=== PATIENT | male | born 1940 | race Caucasian/White ===

== ENCOUNTER 2017-10-09 08:40 | Emergency (ER) | payer OTHER ==
[2017-10-09 09:36] LABS: Hematocrit 29.4 % (39.6-49.0); MCH 28.5 pg (27.0-35.0); MCV 89.3 fL (80-100); MPV 8.7 fL (7.6-11.3); RBC Red Blood Cell Count 3.29 M/uL (4.33-5.43)
[2017-10-09 09:38] LABS: Protime INR 1.39
[2017-10-09 09:42] LABS: Urine Appearance CLEAR; Urine Bilirubin NEGATIVE (NEG); Urine Blood 3+ (NEG); Urine Color YELLOW; Urine Glucose 2+ (NEG); Urine Protein TRACE (NEG); Urine Specific Gravity 1.015 (1.005-1.030); Urine pH 7.5 (5.0-7.0)
[2017-10-09 09:47] LABS: Urine Microscopic Reflex ORDER UMIC
[2017-10-09 09:59] LABS: Urine RBC >50 /HPF (NONE SEEN)
[2017-10-09 10:00] LABS: Urine Bacteria NONE SEEN /HPF (NONE SEEN)
[2017-10-09 10:01] LABS: Urine Culture Reflex Order NOT NEEDED
--- NOTE | 2017-10-09 10:09 | ER ---
Nurse's Notes [facility] Name: Jean Lucio III Age: 77 yrs Sex: Male : 1940 Arrival Date: 10/09/2017 Time: 08:43 Bed 16 Private MD: Diagnosis: Hematuria, unspecified Presentation: 10/09 08:44 Presenting complaint: Patient states: blood in urine, ferguson in place. Started yesterday tl3 afternoon. Ferguson in place fore two weeks. Transition of care: patient was not received from another setting of care. Onset of symptoms was October 08, 2017 at 20:00. 08:44 Method Of Arrival: Ambulatory tl3 08:44 Acuity: RITA 3 tl3 09:00 Care prior to arrival: None. em Triage Assessment: 08:51 General: Appears in no apparent distress. slender, well groomed, well developed, tl3 Behavior is calm, cooperative, appropriate for age. Pain: Denies pain. Historical: - Allergies: 08:49 No Known Allergies; tl3 - Home Meds: 08:49 Lasix 40 mg Oral tab 1 tab 2 times per day [Active]; tamsulosin 0.4 mg oral cp24 1 cap tl3 once daily [Active]; potassium chloride 10 mEq Oral cpER 1 cap once daily [Active]; spironolactone 25 mg Oral tab 1 tab once daily [Active]; cefdinir 300 mg oral cap 1 cap every 12 hours [Active]; lisinopril 2.5 mg oral tab 1 tab once daily [Active]; carvedilol 3.125 mg oral tab 1 tab 2 times per day [Active]; - PMHx: 08:49 Hypertension; Hyperlipidemia; diagnosed with cancer at [place], did not seek treatment; tl3 - Immunization history:: Adult Immunizations up to date. - Social history:: Patient/guardian denies using alcohol, street drugs, The patient lives with family, Smoking status: Patient/guardian denies using tobacco. Screenin:17 Abuse screen: Denies threats or abuse. Nutritional screening: No deficits noted. em Tuberculosis screening: No symptoms or risk factors identified. Fall Risk None identified. Assessment: 09:00 General: Appears in no apparent distress. comfortable, Behavior is calm, cooperative. em Pain: Denies pain. Neuro: Level of Consciousness is awake, alert, obeys commands, Oriented to person, place, time, situation. Cardiovascular: Capillary refill < 3 seconds Patient's skin is warm and dry. Respiratory: Airway is patent Respiratory effort is even, unlabored, Respiratory pattern is regular, symmetrical. GI: Abdomen is round Patient currently denies nausea, vomiting. : Ferguson in place to gravity drainage blood tinged urine noted in ferguson Urine is blood tinged, Genitalia appear normal Reports blood in urine started yesterday, denies pain. EENT: No signs and/or symptoms were reported regarding the EENT system. Derm: Skin is intact, is fragile, Skin is pink, warm \T\ dry. Musculoskeletal: Range of motion: intact in all extremities. 09:01 Reassessment: i agree with the assessment of JERRY Maldonado;. 09:48 Reassessment: Patient appears in no apparent distress at this time. Patient and/or em family updated on plan of care and expected duration. Pain level reassessed. Patient is alert, oriented x 3, equal unlabored respirations, skin warm/dry/pink. Patient states symptoms have improved. Vital Signs: 08:49 BP 151 / 65; Pulse 80; Resp 17; Temp 97.7; Pulse Ox 99% ; tl3 ED Course: 08:43 Patient arrived in ED. rg4 08:45 Triage completed. tl3 08:52 Darren Trujillo MD is Attending Physician. ma2 09:00 Patient has correct armband on for positive identification. Bed in low position. Call em light in reach. Side rails up X2. 09:00 Arm band placed on. em 09:10 Initial lab(s) drawn, by tx, sent to lab. Inserted saline lock: 20 gauge in right em antecubital area, using aseptic technique. Blood collected. 09:48 Joel Horvath LVN is Primary Nurse. em 10:04 Primary Nurse role handed off by Joel Horvath LVN jl7 10:04 Nicole Zuñiga RN is Primary Nurse. jl7 10:24 No provider procedures requiring assistance completed. IV discontinued, intact, jl7 bleeding controlled, No redness/swelling at site. Pressure dressing applied. Administered Medications: No medications were administered Outcome: 10:08 Discharge ordered by . ma2 10:24 Discharged to home ambulatory. jl7 10:24 Condition: stable 10:24 Discharge instructions given to patient, Instructed on discharge instructions, follow up and referral plans. Demonstrated understanding of instructions, follow-up care. 10:26 Patient left the ED. jl7 Signatures: Joel Horvath, JERRY HERNDONN Femi Perera, RN RN Laury Sims rg4 Nicole Zuñiga RN RN jl7 Darren Trujillo MD MD ma2 Vane Watts RN RN tl3
--- NOTE | 2017-10-09 10:09 | EDPHYS ---
Physician Documentation [facility] Name: Jean Lucio III Age: 77 yrs Sex: Male : 1940 Arrival Date: 10/09/2017 Time: 08:43 Bed 16 Private MD: ED Physician Darren Trujillo HPI: 10/09 09:05 This 77 yrs old Male presents to ER via Ambulatory with complaints of BLOOD ma2 IN URINE. 09:05 The patient presents with had urinary retention 2 wks ago s/p ferguson here with hematuria ma2 x 2 days, no other symptoms hx of liver ca, has appointment scheduled to see urologist in 1 week, on flomax . Onset: The symptoms/episode began/occurred gradually, 1 day(s) ago. Associated signs and symptoms: Pertinent negatives: abdominal pain, constipation, dysuria, fever, nausea, vomiting. Severity of symptoms: At their worst the symptoms were moderate, in the emergency department the symptoms have improved, color got chaplain . The patient has not experienced similar symptoms in the past. Historical: - Allergies: 08:49 No Known Allergies; tl3 - Home Meds: 08:49 Lasix 40 mg Oral tab 1 tab 2 times per day [Active]; tamsulosin 0.4 mg oral cp24 1 cap tl3 once daily [Active]; potassium chloride 10 mEq Oral cpER 1 cap once daily [Active]; spironolactone 25 mg Oral tab 1 tab once daily [Active]; cefdinir 300 mg oral cap 1 cap every 12 hours [Active]; lisinopril 2.5 mg oral tab 1 tab once daily [Active]; carvedilol 3.125 mg oral tab 1 tab 2 times per day [Active]; - PMHx: 08:49 Hypertension; Hyperlipidemia; diagnosed with cancer at [place], did not seek treatment; tl3 - Immunization history:: Adult Immunizations up to date. - Social history:: Patient/guardian denies using alcohol, street drugs, The patient lives with family, Smoking status: Patient/guardian denies using tobacco. ROS: 09:05 Constitutional: Negative for fever, chills, and weight loss, ENT: Negative for injury, ma2 pain, and discharge, Neck: Negative for injury, pain, and swelling, Cardiovascular: Negative for chest pain, palpitations, and edema, Respiratory: Negative for shortness of breath, cough, wheezing, and pleuritic chest pain, Abdomen/GI: Negative for abdominal pain, nausea, diarrhea, and constipation, Back: Negative for injury and pain, MS/Extremity: Negative for injury and deformity, Skin: Negative for injury, rash, and discoloration, Neuro: Negative for headache, weakness, numbness, tingling, and seizure, Psych: Negative for depression, anxiety, suicide ideation, homicidal ideation, and hallucinations, Endocrine: Negative for neck swelling, polydipsia, polyuria, polyphagia, and marked weight changes. Exam: 09:05 Constitutional: This is a well developed, well nourished patient who is awake, alert, ma2 and in no acute distress. Head/Face: Normocephalic, atraumatic. Chest/axilla: Normal chest wall appearance and motion. Nontender with no deformity. No lesions are appreciated. Cardiovascular: Regular rate and rhythm with a normal S1 and S2. No gallops, murmurs, or rubs. Normal PMI, no JVD. No pulse deficits. Respiratory: Lungs have equal breath sounds bilaterally, clear to auscultation and percussion. No rales, rhonchi or wheezes noted. No increased work of breathing, no retractions or nasal flaring. Abdomen/GI: Soft, non-tender, with normal bowel sounds. No distension or tympany. No guarding or rebound. No evidence of tenderness throughout. 09:05 : Exam negative for dysuria, discharge, bladder tenderness, bladder distension, CVA tenderness, is absent, Bladder: ferguson in place, no penile abnormality, bag with light red urine . Vital Signs: 08:49 BP 151 / 65; Pulse 80; Resp 17; Temp 97.7; Pulse Ox 99% ; tl3 MDM: 08:52 Patient medically screened. ma2 09:05 Differential diagnosis: UTI, Ferguson catheter problem, urethritis, bleeding diathesis. ma2 10:06 Data reviewed: vital signs, nurses notes, EMS record, lab test result(s), EKG. ma2 Counseling: I had a detailed discussion with the patient and/or guardian regarding: the historical points, exam findings, and any diagnostic results supporting the discharge/admit diagnosis, the presence of at least one elevated blood pressure reading (>120/80) during this emergency department visit, lab results, the need for outpatient follow up. ED course: urine cleared up now, normal yellow color, no UTI, HB 9, VS wnl, coags non critical not on blood thinner will f/u with urologist in 2 days and pcp in 1 day . 10/09 09:01 Order name: UA [facility] 10/09 09:01 Order name: CBC w/o diff [facility] 10/09 09:01 Order name: Protime (+inr) [facility] 10/09 09:01 Order name: Ptt, Activated [facility] 10/09 09:09 Order name: Urine Dipstick--Ancillary (enter results) 10/09 09:38 Order name: CBC without Diff; Complete Time: 09:54 [facility] 10/09 09:39 Order name: Protime (+INR); Complete Time: 09:54 [facility] 10/09 09:39 Order name: PTT, Activated Partial Thromb; Complete Time: 09:54 [facility] 10/09 09:47 Order name: Urinalysis [facility] 10/09 10:01 Order name: Urine Microscopic Only [facility] Administered Medications: No medications were administered Disposition: 10/09/17 10:08 Discharged to Home. Impression: Hematuria, unspecified. - Condition is Stable. - Discharge Instructions: Hematuria, Adult. - Medication Reconciliation Form, Thank You Letter, Antibiotic Education, Prescription Opioid Use form. - Follow up: Private Physician; When: Tomorrow; Reason: Continuance of care. - Problem is new. - Symptoms are resolved. Signatures: Dispatcher [employer] [facility] Joel Horvath, AD TERMINAL MAKEUP OPERATOR AD TERMINAL MAKEUP OPERATOR Nicole Guerra, RN RN jl7 Darren Trujillo MD MD ma2 Vane Watts, RN RN tl3
[2017-10-09 10:32] VITALS: BP 151/65; TEMP 97.7; O2SAT 99
[2017-10-09 10:56] LABS: Urine Blood 3+ (NEG); Urine Glucose NEGATIVE (NEG); Urine Protein 1+ (NEG); Urine Specific Gravity 1.015 (1.005-1.030); Urine pH 7.5 (5.0-7.0)
== END 2017-10-09 10:26 | disposition home or self-care (01) ==
LOC: EDBD → ER 08:40
DX: R31.9 Hematuria, unspecified (principal); I10 Essential (primary) hypertension; E78.5 Hyperlipidemia, unspecified; Z85.05 Personal history of malignant neoplasm of liver
CPT/HCPCS: 36415; 81003; 81015; 85027; 85610; 85730; 99283

== ENCOUNTER 2017-11-04 10:49 | Inpatient (IN) | payer OTHER ==
[2017-11-04] MEDS ORDERED: LEVALBUTEROL 1.25 MG/3 ML NEB ONE (11:28)
[2017-11-04] MEDS ORDERED: ACETAMINOPHEN 500 MG TAB ONE (11:29)
[2017-11-04 11:57] LABS: Absolute Lymphocytes (CBC) 1.8 K/uL (0.7-4.9); Absolute Monocytes 2.9 K/uL (0.1-1.3); Absolute Neutrophil 8.8 K/uL (1.8-8.0); Basophils % 0.3 % (0-1.3); Eosinophils % 0.4 % (0-4.4); Hematocrit 26.8 % (39.6-49.0); Lymphocytes % 12.9 % (15.3-44.8); MCH 25.1 pg (27.0-35.0); MCV 83.2 fL (80-100); MPV 8.6 fL (7.6-11.3); Monocytes % 21.5 % (3.3-12.3); RBC Red Blood Cell Count 3.23 M/uL (4.33-5.43)
[2017-11-04 12:00] LABS: Protime INR 1.53
[2017-11-04 12:14] LABS: Bicarbonate 20 mEq/L (21-31); Glucose Level 361 mg/dL (65-120); Lipase 38 U/L (22-51); Potassium 4.3 mEq/L (3.6-5.0); Sodium Level 127 mEq/L (135-145)
[2017-11-04 12:20] LABS: ALT/SGPT 37 IU/L (10-60); AST/SGOT 60 IU/L (10-42); Albumin 3.2 g/dL (3.2-5.5); Alkaline Phosphatase 104 IU/L (42-121); BUN Blood Urea Nitrogen 10 mg/dL (6-20); Bilirubin Direct 0.5 mg/dL (0-0.2); Bilirubin Total 2.2 mg/dL (0.3-1.2); Creatine Phosphokinase 34 IU/L (22-269); Magnesium 1.5 mg/dL (1.8-2.5)
[2017-11-04] MEDS ORDERED: NA CHLORIDE 0.9% 1,000 ML ONE (12:34)
[2017-11-04] MEDS ORDERED: ASPIRIN 81 MG CHEWABLE TABLET ONE (12:34)
[2017-11-04 12:47] LABS: Anisocytosis 1+; Blood Morphology Comment NOTED (NOT SEEN); Hypochromasia 1+; Macrocytosis SLIGHT; Platelet Estimate ADEQ
--- NOTE | 2017-11-04 13:24 | EKG ---
Test Date: 2017-11-04 Test Time: 11:30:21 Underwriting Director: BJ MEASUREMENT RESULTS: Intervals: Rate: 94 MA: 176 QRSD: 92 QT: 358 QTc: 447 [place]: P: 43 MA: 176 QRS: 46 T: 55 INTERPRETIVE STATEMENTS: Normal sinus rhythm Nonspecific ST abnormality Abnormal ECG Compared to ECG 09/18/2017 06:17:24 Sinus tachycardia no longer present ST (T wave) deviation still present Electronically Signed On 11-04-17 13:24:30 CDT by Tristian Pabon
--- NOTE | 2017-11-04 13:31 | RAD REPORT ---
EXAM DESCRIPTION: Marvint Pa And Lat (2 Views)11/04/2017 1:23 pm CLINICAL HISTORY: Cough COMPARISON: August 2017 FINDINGS: Mild bilateral interstitial lung opacities are suspected. The heart is normal size IMPRESSION: Mild interstitial lung opacities may represent interstitial pulmonary edema
--- NOTE | 2017-11-04 14:15 | RAD REPORT ---
EXAM DESCRIPTION: 111 - Thorax W/ Con - 11/04/2017 2:03 pm CLINICAL HISTORY: Cough and shortness of breath TECHNIQUE: Computed axial tomography of the chest was obtained. 100 cc Isovue 300 was administered i ntravenously. All CT scans are performed using dose optimization technique as appropriate and may include automated exposure control or mA/KV adjustment according to patient size. FINDINGS: Mild to moderate reticular interstitial opacities are present within the lungs bilaterally . Mild patchy alveolar opacities present within the left lower lobe. No mediastinal or hilar lymphadenopathy is seen. A pleural effusion is not present. A pericardial effusion is not seen. The wall of the esophagus appears thickened. A cirrhotic liver is seen. A vague hypodensity is present within the dome of the liver measuring 20 m illimeters. Varices are present within the upper abdomen IMPRESSION: Mild to moderate bilateral pulmonary opacities probably represent pneumonia. This could be viral or atypical. Cirrhosis. 20 millimeter vague hypodensity within the dome of the liver. Further evaluation with MRI could be obtained Thickening of the wall of the esophagus may be secondary to inflammation
--- NOTE | 2017-11-04 14:15 | ER ---
Nurse's Notes [facility] Name: Jean Lucio III Age: 77 yrs Sex: Male : 1940 Arrival Date: 11/04/2017 Time: 10:50 Bed 2 Private MD: Colin Garcia E Diagnosis: acute shortness of breath;dizziness;chest pain;Bilateral Interstitial Pneumonia Presentation: 11/04 11:05 Presenting complaint: Patient states: " I've been feeling dizzy for about a month, my home health nurse says that my oxygen drops when I stand up. I'm just tired of feeling dizzy." Pt reports vomiting yesterday, denies pain or fever. Reports feeling dizzy and SOB, Spo2 94% RA. Transition of care: patient was not received from another setting of care. Onset of symptoms was November 04, 2017. Care prior to arrival: None. 11:05 Method Of Arrival: Ambulatory 11:05 Acuity: RITA 3 ph Historical: - Allergies: 11:08 No Known Allergies; ph - Home Meds: 11:08 carvedilol 3.125 mg Oral tab 1 tab 2 times per day [Active]; cefdinir 300 mg Oral cap 1 ph cap every 12 hours [Active]; Lasix 40 mg Oral tab 1 tab 2 times per day [Active]; lisinopril 2.5 mg Oral tab 1 tab once daily [Active]; potassium chloride 10 mEq Oral cpER 1 cap once daily [Active]; spironolactone 25 mg Oral tab 1 tab once daily [Active]; tamsulosin 0.4 mg Oral cp24 1 cap once daily [Active]; - PMHx: 11:08 diagnosed with cancer at [place], did not seek treatment; Hyperlipidemia; Hypertension; ph Myocardial infarction; - Social history:: Smoking status: Patient uses tobacco products, 1 cigarette per day. - Family history:: not pertinent. - Hospitalizations: : No recent hospitalization is reported. Screenin:20 Abuse screen: Denies threats or abuse. Denies injuries from another. Nutritional sv screening: No deficits noted. Tuberculosis screening: No symptoms or risk factors identified. Fall Risk None identified. Assessment: 11:20 General: Appears in no apparent distress. uncomfortable, slender, Behavior is calm, sv cooperative, appropriate for age. Pain: Denies pain. Neuro: Level of Consciousness is awake, alert, obeys commands, Oriented to person, place, time, situation, Moves all extremities. Full function Gait is steady, Speech is normal. Neuro: Reports dizziness, weakness. Cardiovascular: Patient's skin is warm and dry. Pulses are 3+ in right radial artery and left radial artery Rhythm is sinus rhythm. Respiratory: Reports shortness of breath at rest since a month Airway is patent Respiratory effort is even, labored, Respiratory pattern is tachypnea. Derm: Skin is normal. 12:39 Reassessment: Patient appears in no apparent distress at this time. No changes from sv previously documented assessment. Patient and/or family updated on plan of care and expected duration. Pain level reassessed. Patient is alert, oriented x 3, equal unlabored respirations, skin warm/dry/pink. 13:30 Reassessment: Patient appears in no apparent distress at this time. Patient and/or sv family updated on plan of care and expected duration. Pain level reassessed. Patient is alert, oriented x 3, equal unlabored respirations, skin warm/dry/pink. 15:05 Reassessment: Patient appears in no apparent distress at this time. Patient and/or sv family updated on plan of care and expected duration. Pain level reassessed. Patient is alert, oriented x 3, equal unlabored respirations, skin warm/dry/pink. 15:31 Reassessment: cvt techJoann garcia at the bedside. sv Vital Signs: 11:09 BP 145 / 57; Pulse 103; Resp 22; Temp 99.4(O); Pulse Ox 94% on R/A; Weight 73.94 kg; ph Height 5 ft. 11 in. (180.34 cm); 11:20 Pulse Ox 97% on R/A; sv 11:55 BP 133 / 56; Pulse 94; Resp 28; Pulse Ox 96% on 2 lpm NC; sv 12:39 BP 132 / 46; Pulse 90; Resp 20; Pulse Ox 96% on 2 lpm NC; sv 13:54 BP 137 / 49; Pulse 88; Resp 19; Pulse Ox 96% on 2 lpm NC; jb1 15:09 BP 149 / 57; Pulse 74; Resp 18; Pulse Ox 98% on 2 lpm NC; sv 15:44 BP 127 / 47; Pulse 75; Resp 18; Pulse Ox 100% on 2 lpm NC; sv 11:09 Body Mass Index 22.73 (73.94 kg, 180.34 cm) ph ED Course: 10:50 Patient arrived in ED. as 10:51 Colin Garcia MD is Private Physician. as 11:07 Triage completed. ph 11:09 Arm band placed on. ph 11:13 Colin Fulton MD is Attending Physician. wa 11:20 Patient has correct armband on for positive identification. Placed in gown. Bed in low sv position. Call light in reach. property assessment monitor on. Pulse ox on. NIBP on. Door closed. Head of bed elevated. 11:21 June Florence, RN is Primary Nurse. sv 11:21 Oxygen administration via nasal cannula \\T\\ 2L/min. sv 11:41 EKG done, by information technology associate. reviewed by Colin Fulton MD. at1 13:07 Patient moved to radiology via stretcher. jb2 13:15 X-ray completed. Patient tolerated procedure well. Patient moved back from radiology. jb2 13:15 Chest Pa And Lat (2 Views) XRAY In Process Unspecified. EDMS 13:57 CT completed. Patient tolerated procedure well. Patient moved to CT via stretcher. Patient moved back from CT. 14:03 CT Chest W/ Con In Process Unspecified. EDMS 14:13 Phani Garcia DO is Hospitalizing Provider. wa 14:33 Abdomen In Process Unspecified. EDMS 15:05 Initial lab(s) drawn, by sc, sent to lab. sv 16:00 No provider procedures requiring assistance completed. Patient admitted, IV remains in sv place. intact. Administered Medications: 11:34 Drug: Tylenol 1000 mg Route: PO; sv 12:38 Follow up: Response: No adverse reaction sv 11:35 Drug: Xopenex 1.25 mg Route: Inhalation; sv 12:38 Drug: Aspirin Chewable Tablet 324 mg Route: PO; sv 14:14 Follow up: Response: No adverse reaction ss 12:38 Drug: NS 0.9% 1000 ml Route: IV; Rate: 1 bolus; Site: right antecubital; sv 13:45 Follow up: Response: No adverse reaction; IV Status: Completed infusion; IV Intake: sv 1000ml 14:38 Drug: Rocephin - (cefTRIAXone) 2 grams {Note: given IVP per pharmacy .} Route: IVPB; sv Infused Over: 30 mins; Site: right antecubital; 14:49 Follow up: Response: No adverse reaction; IV Status: Completed infusion; IV Intake: 20mlsv 14:48 Drug: Zithromax 500 mg Route: IVPB; Infused Over: 1 hrs; Site: right antecubital; sv Intake: 13:45 IV: 1000ml; Total: 1000ml. sv 14:49 IV: 20ml; Total: 1020ml. sv Outcome: 14:13 Decision to Hospitalize by Provider. wa 16:00 Admitted to Tele accompanied by tech, via stretcher, room 214, with oxygen, with chart, sv Report called to Femi BURGESS 16:00 Condition: stable 16:00 Instructed on the need for admit. 16:17 Patient left the ED. sv Signatures: Dispatcher [employer] Filipe Wagner1 June Florence RN RN Silvio Yip2 Milly Carlson Amelia as Smirch, Shelby, RN RN Koki germain, technical agronomist EKG Tat1 Anisa Martell RN RN Colin Fulton MD MD wa Corrections: (The following items were deleted from the chart) 14:49 14:38 Rocephin - (cefTRIAXone) 2 grams IVPB in right antecubital over 30 mins sv sv
--- NOTE | 2017-11-04 14:15 | EDPHYS ---
Physician Documentation [facility] Name: Jean Lucio III Age: 77 yrs Sex: Male : 1940 Arrival Date: 11/04/2017 Time: 10:50 Bed 2 Private MD: Colin Garcia E ED Physician Colin Fulton HPI: 11/04 11:31 This 77 yrs old Male presents to ER via Ambulatory with complaints of wa Shortness Of Breath, Dizziness. 11:31 The patient has shortness of breath at rest. Onset: The symptoms/episode began/occurred wa 1 month(s) ago, worsening. also c/o dizziness when gets up. coughing. no sputum. admits to possible mild fever. c/o weight loss of 40 lbs the past few yrs. Duration: The symptoms are continuous, and are steadily getting worse. The patient's shortness of breath is aggravated by nothing, is alleviated by nothing. Associated signs and symptoms: Pertinent positives: non-productive cough, dizziness, fever, Pertinent negatives: chest pain, numbness in extremities, vomiting. Severity of symptoms: At their worst the symptoms were moderate in the emergency department the symptoms are worse. The patient has not experienced similar symptoms in the past. The patient has not recently seen a physician. states told at [place] several yrs ago has cancer. cannot tell me what kin. also says told has cirrhosis. does not take meds or has f/u. . Historical: - Allergies: 11:08 No Known Allergies; ph - Home Meds: 11:08 carvedilol 3.125 mg Oral tab 1 tab 2 times per day [Active]; cefdinir 300 mg Oral cap 1 ph cap every 12 hours [Active]; Lasix 40 mg Oral tab 1 tab 2 times per day [Active]; lisinopril 2.5 mg Oral tab 1 tab once daily [Active]; potassium chloride 10 mEq Oral cpER 1 cap once daily [Active]; spironolactone 25 mg Oral tab 1 tab once daily [Active]; tamsulosin 0.4 mg Oral cp24 1 cap once daily [Active]; - PMHx: 11:08 diagnosed with cancer at [place], did not seek treatment; Hyperlipidemia; Hypertension; ph Myocardial infarction; - Social history:: Smoking status: Patient uses tobacco products, 1 cigarette per day. - Family history:: not pertinent. - Hospitalizations: : No recent hospitalization is reported. ROS: 12:02 Constitutional: Negative for fever, chills, and weight loss, Eyes: Negative for injury, wa pain, redness, and discharge, ENT: Negative for injury, pain, and discharge, Neck: Negative for injury, pain, and swelling, Abdomen/GI: Negative for abdominal pain, nausea, vomiting, diarrhea, and constipation, Back: Negative for injury and pain, : Negative for injury, bleeding, discharge, and swelling, MS/Extremity: Negative for injury and deformity, Skin: Negative for injury, rash, and discoloration, Psych: Negative for depression, anxiety, suicide ideation, homicidal ideation, and hallucinations. 12:02 Constitutional: Positive for fatigue, fever, malaise, weight loss, Negative for body aches, chills. 12:02 Cardiovascular: Positive for chest pain, Negative for edema, orthopnea, palpitations, paroxysmal nocturnal dyspnea. 12:02 Respiratory: Positive for cough, with no reported sputum, dyspnea on exertion, shortness of breath, on exertion. Negative for hemoptysis, orthopnea. 12:02 Neuro: Positive for dizziness, Negative for altered mental status, seizure activity, speech changes, syncope. 12:02 All other systems are negative. Exam: 12:04 Constitutional: This is a well developed, well nourished patient who is awake, alert, wa and in no acute distress. Head/Face: Normocephalic, atraumatic. Eyes: Pupils equal round and reactive to light, extra-ocular motions intact. Lids and lashes normal. Conjunctiva and sclera are non-icteric and not injected. Cornea within normal limits. Periorbital areas with no swelling, redness, or edema. ENT: Nares patent. No nasal discharge, no septal abnormalities noted. Tympanic membranes are normal and external auditory canals are clear. Oropharynx with no redness, swelling, or masses, exudates, or evidence of obstruction, uvula midline. Mucous membranes moist. Neck: Trachea midline, no thyromegaly or masses palpated, and no cervical lymphadenopathy. Supple, full range of motion without nuchal rigidity, or vertebral point tenderness. No Meningismus. 12:04 Chest/axilla: Normal chest wall appearance and motion. Nontender with no deformity. No lesions are appreciated. Abdomen/GI: Soft, non-tender, with normal bowel sounds. No distension or tympany. No guarding or rebound. No evidence of tenderness throughout. Back: No spinal tenderness. No costovertebral tenderness. Full range of motion. Skin: Warm, dry with normal turgor. Normal color with no rashes, no lesions, and no evidence of cellulitis. MS/ Extremity: Pulses equal, no cyanosis. Neurovascular intact. Full, normal range of motion. Psych: Awake, alert, with orientation to person, place and time. Behavior, mood, and affect are within normal limits. 12:04 Cardiovascular: Rate: normal, Rhythm: regular, Pulses: no pulse deficits are appreciated, Heart sounds: normal. 12:04 Respiratory: the patient does not display signs of respiratory distress, Respirations: labored breathing, that is mild, Breath sounds: coarse bilaterally, Respiratory rate: mildly tachypneic Vital Signs: 11:09 BP 145 / 57; Pulse 103; Resp 22; Temp 99.4(O); Pulse Ox 94% on R/A; Weight 73.94 kg; ph Height 5 ft. 11 in. (180.34 cm); 11:20 Pulse Ox 97% on R/A; sv 11:55 BP 133 / 56; Pulse 94; Resp 28; Pulse Ox 96% on 2 lpm NC; sv 12:39 BP 132 / 46; Pulse 90; Resp 20; Pulse Ox 96% on 2 lpm NC; sv 13:54 BP 137 / 49; Pulse 88; Resp 19; Pulse Ox 96% on 2 lpm NC; jb1 15:09 BP 149 / 57; Pulse 74; Resp 18; Pulse Ox 98% on 2 lpm NC; sv 15:44 BP 127 / 47; Pulse 75; Resp 18; Pulse Ox 100% on 2 lpm NC; sv 11:09 Body Mass Index 22.73 (73.94 kg, 180.34 cm) ph MDM: 11:13 Patient medically screened. la 12:08 Differential diagnosis: Anemia asthma, Bronchitis CHF exacerbation, Chronic Obstructive wa Pulmonary Disease Myocardial Infarction pneumonia, pulmonary edema, reactive airway disease, Unstable Angina. 14:06 Data reviewed: vital signs, nurses notes, lab test result(s), EKG, radiologic studies. la Test interpretation: by ED physician or midlevel provider: EKG: HR 94. non-specific ST-T changes. CXR: interstitial infiltrates. labs noted for anemia, leukocytosis. Test interpretation: by ED physician or midlevel provider: elevated troponin. ED course: . ED course: abx given. ASA given. will admit for further cardiolpulm eval. will check CT chest. 14:11 Physician consultation: Phani Garcia DO was called at 14:12. Admission orders: after a la detailed discussion of the patient's condition and case, the admit orders are written by me. 16:16 Test interpretation: by ED physician or midlevel provider: CT chest: bilateral pulm wa infiltrates consistent with pneumonia. 11/04 11:22 Order name: Blood Culture Adult (2) la 11/04 11:22 Order name: BMP; Complete Time: 12:25 la 11/04 11:22 Order name: BNP; Complete Time: 12: la 11/04 11:22 Order name: CBC with Diff la 11/04 11:22 Order name: CPK; Complete Time: 12: la 11/04 11:22 Order name: Hepatic Function; Complete Time: 12: la 11/04 11:22 Order name: Lipase; Complete Time: 12: la 11/04 11:22 Order name: Magnesium; Complete Time: 12: la 11/04 11:22 Order name: PT-INR; Complete Time: 12: la 11/04 11:22 Order name: Troponin (emerg Dept Use Only); Complete Time: 12: la 11/04 11:22 Order name: Flu; Complete Time: 12: la 11/04 12:46 Order name: Manual Differential [facility] 11/04 14:12 Order name: Procalcitonin la 11/04 14:34 Order name: Ferritin [facility] 11/04 14:34 Order name: Sputum Culture [facility] 11/04 14:34 Order name: Transferrin Sat/Iron Binding [facility] 11/04 14:34 Order name: Urine Sodium,Random [facility] 11/04 14:34 Order name: Vitamin B12 Level [facility] 11/04 14:34 Order name: Hemoglobin A1C [facility] 11/04 14:34 Order name: T4 Free [facility] 11/04 14:34 Order name: Thyroid Stimulating Hormone [facility] 11/04 14:34 Order name: CBC with Automated Diff [facility] 11/04 14:34 Order name: CBC with Automated Diff [facility] 11/04 14:34 Order name: CBC with Automated Diff [facility] 11/04 14:34 Order name: CBC with Automated Diff [facility] 11/04 14:34 Order name: CKMB Creatine Kinase MB [facility] 11/04 14:34 Order name: CKMB Creatine Kinase MB [facility] 11/04 14:34 Order name: CKMB Creatine Kinase MB [facility] 11/04 11:22 Order name: EKG; Complete Time: 11:22 11/04 12:53 Order name: Chest Pa And Lat (2 Views) XRAY; Complete Time: 13:39 11/04 13:41 Order name: CT Chest W/ Con; Complete Time: 15:08 11/04 14:26 Order name: Abdomen [facility] 11/04 14:34 Order name: Carb Control (ADA) 2000 Justino [facility] 11/04 14:34 Order name: CONS Physician Consult [facility] 11/04 14:34 Order name: Echo with Doppler [facility] 11/04 14:34 Order name: Comprehensive Metabolic Panel [facility] 11/04 14:34 Order name: Comprehensive Metabolic Panel [facility] 11/04 14:34 Order name: Comprehensive Metabolic Panel [facility] 11/04 14:34 Order name: Comprehensive Metabolic Panel [facility] 11/04 14:34 Order name: Creatine Phosphokinase [facility] 11/04 14:34 Order name: Creatine Phosphokinase [facility] 11/04 14:34 Order name: Creatine Phosphokinase [facility] 11/04 14:34 Order name: Lipid Profile [facility] 11/04 14:35 Order name: Lipid Profile [facility] 11/04 14:35 Order name: Magnesium [facility] 11/04 14:35 Order name: Magnesium [facility] 11/04 14:35 Order name: Magnesium [facility] 11/04 14:35 Order name: Magnesium [facility] 11/04 14:35 Order name: Troponin I [facility] 11/04 14:35 Order name: Troponin I [facility] 11/04 14:35 Order name: Troponin I [facility] 11/04 11:22 Order name: Cardiac monitoring; Complete Time: 11:35 11/04 11:22 Order name: EKG - Nurse/Tech; Complete Time: 11:35 11/04 11:22 Order name: IV Saline Lock; Complete Time: 11:35 11/04 11:22 Order name: Labs collected and sent; Complete Time: 11:35 11/04 11:22 Order name: O2 Per Protocol; Complete Time: 11:35 la 11/04 11:22 Order name: O2 Sat Monitoring; Complete Time: 11:35 la 11/04 14:34 Order name: CONS Physician Consult [facility] 11/04 14:34 Order name: NPO [facility] 11/04 14:35 Order name: Respiratory Therapy Consult [facility] Administered Medications: 11:34 Drug: Tylenol 1000 mg Route: PO; sv 12:38 Follow up: Response: No adverse reaction sv 11:35 Drug: Xopenex 1.25 mg Route: Inhalation; sv 12:38 Drug: Aspirin Chewable Tablet 324 mg Route: PO; sv 14:14 Follow up: Response: No adverse reaction ss 12:38 Drug: NS 0.9% 1000 ml Route: IV; Rate: 1 bolus; Site: right antecubital; sv 13:45 Follow up: Response: No adverse reaction; IV Status: Completed infusion; IV Intake: sv 1000ml 14:38 Drug: Rocephin - (cefTRIAXone) 2 grams {Note: given IVP per pharmacy .} Route: IVPB; sv Infused Over: 30 mins; Site: right antecubital; 14:49 Follow up: Response: No adverse reaction; IV Status: Completed infusion; IV Intake: 20mlsv 14:48 Drug: Zithromax 500 mg Route: IVPB; Infused Over: 1 hrs; Site: right antecubital; sv Disposition: 11/04/17 14:13 Hospitalization ordered by Phani Garcia for Observation. Preliminary diagnosis are acute shortness of breath, dizziness, chest pain, Bilateral Interstitial Pneumonia. - Bed requested for Telemetry/MedSurg (observation). - Status is Observation. sv - Condition is Stable. - Problem is new. - Symptoms have improved. UTI on Admission? No Signatures: Dispatcher [employer] EDMS June Florence RN RN Purvi Vaca Patricia, RN RN [facility], MD MD mari Shaw Shelby RN ss Corrections: (The following items were deleted from the chart) 14:26 14:20 Abdomen Pelvis W Con+CT.RAD.BRZ ordered. EDMS EDMS 14:35 14:34 Iron,Serum ordered. EDMS EDMS 15:03 14:34 CKMB Creatine Kinase MB ordered. EDMS EDMS 15:03 14:34 Creatine Phosphokinase ordered. EDMS EDMS 15:04 14:35 Troponin I ordered. EDMS EDMS
[2017-11-04] MEDS ORDERED: CEFTRIAXONE/SWI 1gm 2 GM/20 ML SYR ONE (14:20)
[2017-11-04] MEDS ORDERED: BENZONATATE 100 MG CAP PO PRN (14:24)
[2017-11-04] MEDS ORDERED: ONDANSETRON 4 MG/2 ML VIAL IV PRN (14:24)
[2017-11-04] MEDS ORDERED: ALBUTEROL 2.5 MG/3 ML NEB SOL NEB PRN (14:24)
[2017-11-04] MEDS ORDERED: ACETAMINOPHEN 500 MG TAB PO PRN (14:24)
[2017-11-04] MEDS ORDERED: IPRATROPIUM BROM 0.5MG/2.5ML NEB PRN (14:24)
[2017-11-04] MEDS ORDERED: D50W 25 GM/50 ML SYRINGE IV PRN (14:41)
[2017-11-04] MEDS ORDERED: GLUCAGON 1 MG/VIAL IM PRN (14:41)
--- NOTE | 2017-11-04 14:51 | RAD REPORT ---
EXAM DESCRIPTION: CT - Abdomen Pelvis Wo Contrast - 11/04/2017 2:33 pm CLINICAL HISTORY: Abdominal pain TECHNIQUE: Computed axial tomography of the abdomen and pelvis was obtained. IV and oral contrast we re not requested. IV contrast from a prior CT chest earlier in the same date is present within the [employer] system. All CT scans are performed using dose optimization technique as appropriate and may include automated exposure control or mA/KV adjustment according to patient size. FINDINGS: The evaluation of solid organs, vessels and bowel is limited secondary to the lack of con trast administration. A cirrhotic liver is present. A possible mass within the dome of the liver seen on the recent CAT sc an of chest is poorly visualized on this exam secondary to the lack of IV contrast. Varices are prese nt within the upper abdomen. The spleen measures 15 centimeters. The pancreas and adrenals appear grossly normal. Hydronephrosis is not seen. A renal mass is not visu alized. Gallstones are present without gallbladder wall thickening. There is no evidence of diverticulitis. No ascites is seen. Calcification within the left common iliac artery results in a high-grade stenosis. Spondylosis invol ves lumbar spine resulting in spinal stenosis IMPRESSION: Cirrhosis with splenomegaly and gastric varices Cholelithiasis without cholecystitis
[2017-11-04] MEDS ORDERED: AZITHROMYCIN IV 500 MG in NA CHLORIDE 0.9% 250 ML IVPB ONE (15:00)
--- NOTE | 2017-11-04 15:02 | P.HP ---
Certification for Inpatient Patient admitted to: Observation With expected LOS: <2 Midnights Patient will require the following post-hospital care: None Practitioner: I am a practitioner with admitting privileges, knowledge of patient current condition, hospital course, and medical plan of care. Services: Services provided to patient in accordance with Admission requirements found in Title 42 Section 412.3 of the Code of Federal Regulations Patient History Date of Service: 11/04/17 Primary Care Provider: Dr. Garcia; GI-Dr. Carolina Reason for admission: Shortness of breath, dizziness History of Present Illness: 77-year-old male presented to the ER with shortness of breath and dizziness. He also reports a chronic cough. The patient reports that he has been having a chronic cough for quite some time. He also reports dizziness for about a month. Shortness of breath has been since that time. He reports sometime in August he was seen at the hospital and transferred to the [place]. He reports that he had some type of cardiac intervention. He was there for 9 days. He also reports at that time that he was noted to have problems with his liver. He further reports that he had any EGD and colonoscopy. Patient is a poor historian. Since that time he has been losing weight. He he reports that he has lost over 40 lb. No significant edema noted. Patient fell out of bed this morning. He was able to get up. He also reports some chest pain to the center. He does not radiate. Some nausea noted. No significant vomiting or fever noted. In the ER he was evaluated. Blood pressure stable. Patient had abnormal lab including elevated white count of 13.6, sodium 127, potassium 4.3. BUN of 10, creatinine 0.7 GFR greater than 90. Magnesium 1.5, INR 1.53. Total bilirubin 2.2, direct bilirubin 0.5. CK of 34, troponin 0.18. BNP slightly elevated. Influenza test negative. CT of the abdomen showed cirrhosis of the liver with cholelithiasis. CT of the chest showed bilateral infiltrates suspicious for pneumonia. Thickening of the esophagus was noted. Due to nature the findings the patient was admitted for further evaluation. Patient was given IV antibiotic therapy in the ER. Oxygen saturations were within normal range. When I evaluated the patient in the ER, he did not appear in any respiratory distress. Patient appeared stable. He did appear slightly dry. Allergies No Known Allergies Allergy (Unverified 09/18/17 08:20) Home medications list reviewed: No - Past Medical/Surgical History Diabetic: Yes -: Diabetes mellitus type 2 -: CAD -: Liver cirrhosis -: COPD -: Former tobacco use -: Alcohol use Past Surgical History: Patient denies surgical history Psychosocial/ Personal History: The patient lives with a friend. He is . He has several children that he is not in contact with. - Family History Father -: Cancer (Throat cancer) Brother -: Cancer (Throat cancer) Mother -: Diabetes - Social History Smoking Status: Former smoker Alcohol use: Yes CD- Drugs: No Caffeine use: Yes Place of Residence: Home Review of Systems General: Weakness, Malaise, As per HPI Eyes: Unremarkable ENT: Unremarkable Respiratory: Cough, Shortness of Breath, As per HPI Cardiovascular: Chest Pain, As per HPI Gastrointestinal: Nausea, As per HPI Genitourinary: Unremarkable Musculoskeletal: Unremarkable Integumentary: Unremarkable Neurological: As per HPI Lymphatics: Unremarkable Physical Examination - Physical Exam General: Alert, In no apparent distress, Oriented x3, Cooperative HEENT: Atraumatic, Normocephalic, PERRLA, Other (Dry mucous membranes) Neck: Supple, No Thyromegaly Respiratory: Crackles/rales (Bilateral), Expiratory wheezes (Bilateral) Cardiovascular: Normal pulses, Regular rate/rhythm Gastrointestinal: Normal bowel sounds, Soft and benign, Non-distended, No ascites, No tenderness, No masses, No rebound, No guarding Musculoskeletal: No contractures, No erythema, No tenderness, No warmth Integumentary: No tenderness/swelling, No erythema, No warmth, No cyanosis Neurological: Normal speech, Normal strength at 5/5 x4 extr, Normal tone, Normal affect Lymphatics: No axilla or inguinal lymphadenopathy - Studies Laboratory Data (last 24 hrs) 11/04/17 11:45: PT 18.1 H, INR 1.53 11/04/17 11:45: WBC 13.6 H, Hgb 8.1 L, Hct 26.8 L, Plt Count 161 11/04/17 11:45: B-Natriuretic Peptide 118 H 11/04/17 11:45: Sodium 127 L, Potassium 4.3, BUN 10, Creatinine 0.76, Glucose 361 H, Magnesium 1.5 L, Total Bilirubin 2.2 H, AST 60 H, ALT 37, Alkaline Phosphatase 104, Lipase 38 Microbiology Data (last 24 hrs): 11/04/17 11:45 Nasopharnyx Influenza Type A Antigen Screen - Final 11/04/17 11:45 Nasopharnyx Influenza Type B Antigen Screen - Final Assessment and Plan - Problems (Diagnosis) (1) Shortness of breath Current Visit: Yes Status: Acute Plan: Patient likely with viral or atypical pneumonia. Patient likely also with underlying COPD. Will start Rocephin and Zithromax. Will provide COPD treatment. Will maintain sats above 90%. Will reassess tomorrow. Blood cultures and sputum cultures obtained. Will consult pulmonology to further evaluate. Troponin slightly elevated. Will check echocardiogram. Will consult cardiology to further evaluate. [facility]. (2) Pneumonia Current Visit: Yes Status: Acute Plan: Likely atypical verses viral. Will continue with above plan of care. Await pulmonology evaluation. Qualifiers: Pneumonia type: due to unspecified organism Laterality: bilateral Lung location: lower lobe of lung Qualified Code(s): J18.1 - Lobar pneumonia, unspecified organism (3) COPD (chronic obstructive pulmonary disease) Current Visit: Yes Status: Acute Plan: Patient likely with underlying mild COPD exacerbation. Patient will need to be treated for COPD at discharge. Qualifiers: COPD type: COPD with acute exacerbation Qualified Code(s): J44.1 - Chronic obstructive pulmonary disease with (acute) exacerbation (4) Hyponatremia Current Visit: Yes Status: Acute Plan: This is likely hypovolemic in nature related to likely underlying cirrhosis and CHF. Will check echocardiogram. Will check spot urine for sodium (5) Cirrhosis of liver Current Visit: Yes Status: Chronic Plan: Patient with liver cirrhosis. Likely from alcohol. He recently saw GI. Will discuss with GI for recommendation. Qualifiers: Hepatic cirrhosis type: alcoholic cirrhosis Ascites presence: without ascites Qualified Code(s): K70.30 - Alcoholic cirrhosis of liver without ascites (6) CAD (coronary artery disease) Current Visit: Yes Status: Chronic Plan: Patient with elevated troponin. Will monitor cardiac enzymes. Will check echocardiogram. Cardiology consulted. Qualifiers: Coronary Disease-Associated Artery/Lesion type: unspecified vessel or lesion type Associated angina: angina presence unspecified (7) Diabetes mellitus Current Visit: Yes Status: Chronic Plan: Will check A1c. Will continue with sliding scale. Will need to obtain home medication. Qualifiers: Diabetes mellitus type: type 2 Diabetes mellitus fci insulin use: without intermediate accountant use Diabetes mellitus complication status: with other specified complication Qualified Code(s): E11.69 - Type 2 diabetes mellitus with other specified complication (8) Hypertension Current Visit: Yes Status: Suspected Plan: Suspect underlying hypertension. Will need to obtain home medication. Qualifiers: Hypertension type: essential hypertension Qualified Code(s): I10 - Essential (primary) hypertension (9) GERD (gastroesophageal reflux disease) Current Visit: Yes Status: Chronic Plan: Thickening of the esophagus noted on CT scan. Patient likely with GERD. Will provide PPI. Patient will need follow up with GI. Patient had EGD and colonoscopy in the recent past. Will try to obtain information. Qualifiers: Esophagitis presence: esophagitis presence not specified Qualified Code(s) : K21.9 - Gastro-esophageal reflux disease without esophagitis (10) Anemia Current Visit: Yes Status: Chronic Plan: This is likely of chronic disease. Patient reports a recent history of EGD and colonoscopy. Patient seen by GI a recently. Will discuss with GI. Qualifiers: Anemia type: other cause Other causes of anemia: chronic disease, other Qualified Code(s): D63.8 - Anemia in other chronic diseases classified elsewhere (11) Weight loss Current Visit: Yes Status: Acute Plan: Patient reports weight loss. Will discuss with consultants. Will need to [facility]. (12) Elevated troponin Current Visit: Yes Status: Acute Plan: Will monitor cardiac enzymes. Cardiology consulted. Await echocardiogram. (13) Hyperbilirubinemia Current Visit: Yes Status: Acute Plan: Likely from cirrhosis. Will monitor closely. (14) Cholelithiasis Current Visit: Yes Status: Chronic Plan: Cholelithiasis noted. No cholecystitis noted Qualifiers: Cholelithiasis location: gallbladder Cholecystitis presence: without cholecystitis Biliary obstruction: without biliary obstruction Qualified Code(s): K80.20 - Calculus of gallbladder without cholecystitis without obstruction Discharge Plan: Home Plan to discharge in: 48 Hours - Advance Directives Does patient have a Living Will: No Does patient have a Durable POA for Healthcare: No - Code Status/Comfort Care Code Status Assessed: Yes Time Spent Managing Pts Care (In Minutes): 55
[2017-11-04 16:43] VITALS: BMI 22.7
[2017-11-04] MEDS: INSULIN -REGULAR HUMAN 50 UNIT/0.5 ML ML SQ SCH ×2 (17:29→21:28)
[2017-11-04] MEDS: ENOXAPARIN 40 MG/0.4 ML SQ SCH (17:29)
[2017-11-04] MEDS: PANTOPRAZOLE 40MG TABLET PO SCH (17:29)
[2017-11-04] MEDS ORDERED: Magnesium Sulfate 2gm IVPB 2 G/50 ML BAG IV ONE (18:00)
[2017-11-04 18:49] LABS: Urine Appearance CLEAR; Urine Bilirubin NEGATIVE (NEG); Urine Blood NEGATIVE (NEG); Urine Color DK YELLOW; Urine Glucose 2+ (NEG); Urine Protein TRACE (NEG); Urine Specific Gravity >=1.030 (1.005-1.030); Urine pH 5.5 (5.0-7.0)
[2017-11-04 18:53] LABS: Urine Microscopic Reflex ORDER UMIC
[2017-11-04 19:13] LABS: Urine Bacteria >50 /HPF (NONE SEEN); Urine Culture Reflex Order REFLEXED; Urine RBC <5 /HPF (NONE SEEN)
[2017-11-04] MEDS: ARFORMOTEROL TARTRATE 15 MCG/2 ML VIAL.NEB NEB SCH (19:46)
[2017-11-04] MEDS: ATORVASTATIN 40 MG TAB PO SCH (21:27)
[2017-11-04] MEDS: CEFTRIAXONE/SWI 1gm 1 GM/10 ML SYR IV SCH (21:28)
[2017-11-04 23:43] LABS: CKMB Creatine Kinase MB 1.1 ng/ml (0.3-4.0)
[2017-11-05 02:07] LABS: Ferritin 23.3 ng/ml (23.9-336.2)
[2017-11-05 02:19] LABS: Thyroid Stimulating Hormone 1.67 uIU/mL (0.34-5.60)
[2017-11-05 04:42] LABS: Absolute Monocytes 1.9 K/uL (0.1-1.3); Absolute Neutrophil 4.6 K/uL (1.8-8.0); Basophils % 0.3 % (0-1.3); Eosinophils % 1.5 % (0-4.4); Hematocrit 22.9 % (39.6-49.0); Lymphocytes % 22.9 % (15.3-44.8); MCH 25.4 pg (27.0-35.0); MCV 82.5 fL (80-100); MPV 8.7 fL (7.6-11.3); RBC Red Blood Cell Count 2.77 M/uL (4.33-5.43)
[2017-11-05 05:00] LABS: Monocytes % 21.6 % (3.3-12.3)
[2017-11-05 05:04] LABS: CKMB Creatine Kinase MB 1.1 ng/ml (0.3-4.0)
[2017-11-05 05:05] LABS: ALT/SGPT 28 IU/L (10-60); AST/SGOT 41 IU/L (10-42); Albumin 2.7 g/dL (3.2-5.5); Alkaline Phosphatase 81 IU/L (42-121); BUN Blood Urea Nitrogen 10 mg/dL (6-20); Bicarbonate 24 mEq/L (21-31); Bilirubin Total 1.4 mg/dL (0.3-1.2); Glucose Level 199 mg/dL (65-120); HDL Cholesterol 17 mg/dL (27-67); LDL Cholesterol, Calculated 78 (<130); Magnesium 1.9 mg/dL (1.8-2.5); Potassium 3.9 mEq/L (3.6-5.0); Protein, Total 6.8 g/dL (6.0-8.3); Sodium Level 135 mEq/L (135-145)
--- NOTE | 2017-11-05 07:29 | RAD REPORT ---
EXAM DESCRIPTION: Carlos Jimenez And Lat (2 Views)11/05/2017 6:30 am CLINICAL HISTORY: Cough COMPARISON: November 04, 2017 FINDINGS: No significant change has occurred in the mild to moderate bilateral interstitial lung op acities. Mild patchy alveolar opacity within the left lower lobe is unchanged as well. The heart is n ormal size IMPRESSION: No change in a bilateral pneumonia
[2017-11-05] MEDS: INSULIN -REGULAR HUMAN 50 UNIT/0.5 ML ML SQ SCH ×4 (07:30→20:11)
--- NOTE | 2017-11-05 08:10 | ECHO ---
HEIGHT: 5 ft 11 in WEIGHT: 163 lb 0 oz DATE OF STUDY: 11/04/[address]: Phani Garcia DO 2-DIMENSIONAL: YES M.MODE: YES DOPPLER: YES COLOR FLOW: YES TDS: NO PORTABLE: YES DEFINITY: NO BUBBLE STUDY: NO DIAGNOSIS: SHORTNESS OF BREATH CARDIAC HISTORY: CATHERIZATION: NO SURGERY: NO PROSTHETIC VALVE: NO PACEMAKER: NO MEASUREMENTS (cm) DIASTOLIC (NORMALS) SYSTOLIC (NORMALS) IVSd 1.3 (0.6-1.2) LA Diam (1.9-4.0) LVEF 73% LVIDd 3.6 (3.5-5.7) LVIDs 2.1 (2.0-3.5) %FS 41% LVPWd 1.2 (0.6-1.2) Ao Diam 3.3 (2.0-3.7) 2 DIMENSIONAL ASSESSMENT: RIGHT ATRIUM: NORMAL LEFT ATRIUM: NORMAL RIGHT VENTRICLE: NORMAL LEFT VENTRICLE: NORMAL TRICUSPID VALVE: NORMAL MITRAL VALVE: MITRAL ANNULAR CALCIFICATION PULMONIC VALVE: NORMAL AORTIC VALVE: SCLEROSIS PERICARDIAL EFFUSION: NONE AORTIC ROOT: NORMAL LEFT VENTRICULAR WALL MOTION: NORMAL DOPPLER/COLOR FLOW: NORMAL COMMENTS: NORMAL LEFT VENTRICULAR EJECTION FRACTION. MITRAL ANNULAR CALCIFICATION. AORTIC SCLEROSIS WITH NO AORTIC STENOSIS OR AORTIC REGURGITATION. TECHNOLOGIST: Kylee LANG
[2017-11-05] MEDS: CEFTRIAXONE/SWI 1gm 1 GM/10 ML SYR IV SCH (08:58)
[2017-11-05] MEDS ORDERED: POTASSIUM 25 MEQ EFFERV TAB PO ONE (09:00)
[2017-11-05] MEDS ORDERED: AZITHROMYCIN IV 500 MG in NA CHLORIDE 0.9% 250 ML IVPB SCH (09:00)
[2017-11-05] MEDS ORDERED: NA CHLORIDE 0.9% 250 ML IV SCH (09:00)
[2017-11-05] MEDS: ARFORMOTEROL TARTRATE 15 MCG/2 ML VIAL.NEB NEB SCH (09:12)
[2017-11-05 09:51] LABS: A1c Component 0.57 mg/dL; Hemoglobin A1c 8.3 % (4-6.0)
--- NOTE | 2017-11-05 10:53 | P.PN ---
Subjective Date of Service: 11/05/17 Primary Care Provider: Dr. Garcia; GI-Dr. [place] Chief Complaint: Shortness of breath, dizziness Subjective: Improving Physical Examination - Vital Signs Temperature: 98.8 F Blood Pressure: 140/55 Pulse: 81 Respirations: 16 Pulse Ox (%): 96 - Physical Exam General: Alert, In no apparent distress, Oriented x3, Cooperative HEENT: Atraumatic Neck: Supple Respiratory: Crackles/rales (Bilateral) Cardiovascular: Normal pulses, Regular rate/rhythm Gastrointestinal: Normal bowel sounds, Soft and benign, Non-distended, No tenderness, No masses, No rebound, No guarding Musculoskeletal: No erythema, No tenderness, No warmth Integumentary: No tenderness/swelling, No erythema, No warmth, No cyanosis Neurological: Normal speech, Normal strength at 5/5 x4 extr, Normal tone, Normal affect - Studies Laboratory Data (last 24 hrs) 11/04/17 11:45: PT 18.1 H, INR 1.53 11/04/17 11:45: WBC 13.6 H, Hgb 8.1 L, Hct 26.8 L, Plt Count 161 11/04/17 11:45: B-Natriuretic Peptide 118 H 11/04/17 11:45: Sodium 127 L, Potassium 4.3, BUN 10, Creatinine 0.76, Glucose 361 H, Magnesium 1.5 L, Total Bilirubin 2.2 H, AST 60 H, ALT 37, Alkaline Phosphatase 104, Lipase 38 Microbiology Data (last 24 hrs): 11/04/17 11:45 Nasopharnyx Influenza Type A Antigen Screen - Final 11/04/17 11:45 Nasopharnyx Influenza Type B Antigen Screen - Final Medications List Reviewed: Yes Assessment & Plan - Problems (Diagnosis) (1) Shortness of breath Onset Date: 11/05/17 Current Visit: Yes Status: Acute Plan: Patient likely with viral or atypical pneumonia. Patient likely also with underlying COPD. Will continue with Rocephin and Zithromax. Will provide COPD treatment. Will maintain sats above 90%. Await blood, urine and sputum cultures. Pulmonology to assess and recommend. Patient with elevated troponin. Echocardiogram shows ejection fraction 73%. Await recommendations from cardiology. Will try to [facility]. Patient apparently had a EGD and colonoscopy at that time. Patient with hemoglobin at 7. Will transfuse. Will monitor closely. (2) Pneumonia Onset Date: 11/05/17 Current Visit: Yes Status: Acute Plan: Likely atypical verses viral. Will continue with above plan of care. Await pulmonology evaluation. Qualifiers: Pneumonia type: due to unspecified organism Laterality: bilateral Lung location: lower lobe of lung Qualified Code(s): J18.1 - Lobar pneumonia, unspecified organism (3) COPD (chronic obstructive pulmonary disease) Onset Date: 11/05/17 Current Visit: Yes Status: Acute Plan: Patient likely with underlying mild COPD exacerbation. Patient will need to be treated for COPD at discharge. Qualifiers: COPD type: COPD with acute exacerbation Qualified Code(s): J44.1 - Chronic obstructive pulmonary disease with (acute) exacerbation (4) Hyponatremia Onset Date: 11/05/17 Current Visit: Yes Status: Acute Plan: This has improved. Will monitor closely. (5) Cirrhosis of liver Onset Date: 11/05/17 Current Visit: Yes Status: Chronic Plan: CT scan shows cirrhosis of the liver with splenomegaly and gastric varices. Will monitor closely. May need to consider GI consultation if hemoglobin remains low. Patient had recent EGD and colonoscopy. Will obtain records from previous hospitalization at the [facility]. Qualifiers: Hepatic cirrhosis type: alcoholic cirrhosis Ascites presence: without ascites Qualified Code(s): K70.30 - Alcoholic cirrhosis of liver without ascites (6) CAD (coronary artery disease) Onset Date: 11/05/17 Current Visit: Yes Status: Chronic Plan: Patient with elevated troponin. Will monitor cardiac enzymes. Await Cardiology evaluation Qualifiers: Coronary Disease-Associated Artery/Lesion type: unspecified vessel or lesion type Associated angina: angina presence unspecified (7) Diabetes mellitus Onset Date: 11/05/17 Current Visit: Yes Status: Chronic Plan: A1C-8.3. Will continue with sliding scale. Will need to verify home medication. 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 Will need to obtain home medication. Will start low-dose NORMA-inhibitor. Qualifiers: Hypertension type: essential hypertension Qualified Code(s): I10 - Essential (primary) hypertension (9) GERD (gastroesophageal reflux disease) Onset Date: 11/05/17 Current Visit: Yes Status: Chronic Plan: Thickening of the esophagus noted on CT scan. CT scan also shows cirrhosis, gastric varices and splenomegaly. Hemoglobin 7.0. Will provide 2 units of blood transfusion. Will monitor closely. Patient had recent EGD and colonoscopy. Will discuss with GI. No hematemesis or rectal bleeding noted at this time. Likely no need for intervention. Qualifiers: Esophagitis presence: esophagitis presence not specified Qualified Code(s) : K21.9 - Gastro-esophageal reflux disease without esophagitis (10) Anemia Onset Date: 11/05/17 Current Visit: Yes Status: Chronic Plan: This is likely of chronic disease. Patient reports a recent history of EGD and colonoscopy. Patient with history of cirrhosis, gastric varices. Will discuss with GI. Patient to get transfused 2 units. Will continue monitor closely. No hematemesis or rectal bleeding noted at this time. Likely no need for intervention. Qualifiers: Anemia type: other cause Other causes of anemia: chronic disease, other Qualified Code(s): D63.8 - Anemia in other chronic diseases classified elsewhere (11) Weight loss Onset Date: 11/05/17 Current Visit: Yes Status: Acute Plan: Patient reports weight loss. Will discuss with consultants. Will need to review previous information at [facility]. (12) Elevated troponin Onset Date: 11/05/17 Current Visit: Yes Status: Acute Plan: Will monitor cardiac enzymes. Cardiology consulted. Await echocardiogram. (13) Hyperbilirubinemia Onset Date: 11/05/17 Current Visit: Yes Status: Acute Plan: Likely from cirrhosis. Will monitor closely. (14) Cholelithiasis Onset Date: 11/05/17 Current Visit: Yes Status: Chronic Plan: Cholelithiasis noted. No cholecystitis noted Qualifiers: Cholelithiasis location: gallbladder Cholecystitis presence: without cholecystitis Biliary obstruction: without biliary obstruction Qualified Code(s): K80.20 - Calculus of gallbladder without cholecystitis without obstruction Discharge Plan: Home Plan to discharge in: 48 Hours Time Spent Managing Pts Care (In Minutes): 55
--- NOTE | 2017-11-05 12:07 | P.CNS ---
Date of Consult: 11/05/17 Primary Care Provider: Dr. Garcia; GI-Dr. [place] Chief Complaint: Cough and dizziness History of Present Illness: Patient is 77 years of age admitted to the hospital complaining of cough and dizziness he has been sick since the middle of her very came here to the emergency room he was complaining of shortness of breath lower extremity edema and was transferred to a hospital in [facility]. According to the patient he had an RI patient was discharged still complaining of coughing and dizzy spells and was admitted again from the emergency room he denies any history of tobacco abuse is found to be anemic nonspecific changes on the CT scan Allergies No Known Allergies Allergy (Unverified 09/18/17 08:20) - Past Medical/Surgical History Diabetic: Yes -: Diabetes mellitus type 2 -: CAD -: Liver cirrhosis -: COPD -: Former tobacco use -: Alcohol use Psychosocial/ Personal History: The patient lives with a friend. He is . He has several children that he is not in contact with. - Family History Father Medical History: Cancer Brother Medical History: Cancer Mother Medical History: Diabetes - Social History Smoking Status: Current every day smoker Alcohol use: Yes CD- Drugs: No Caffeine use: Yes Place of Residence: Home Review of Systems 10-point ROS is otherwise unremarkable General: Weakness Respiratory: Cough, Shortness of Breath Physical Examination Temp Pulse Resp BP Pulse Ox 98.8 F 81 16 140/55 L 96 11/05/17 10:56 11/05/17 10:56 11/05/17 10:56 11/05/17 10:56 11/05/17 10:56 General: Alert, Oriented x3 HEENT: Atraumatic Neck: Supple Respiratory: Clear to auscultation bilaterally Cardiovascular: No edema, Normal S1 S2 Gastrointestinal: Normal bowel sounds, Soft and benign Musculoskeletal: No clubbing, No swelling Integumentary: No rashes, No breakdown Laboratory Data (last 24 hrs) 11/05/17 04:08: Troponin I 0.07 H 11/05/17 04:08: Sodium 135, Potassium 3.9, BUN 10, Creatinine 0.72, Glucose 199 H, Magnesium 1.9, Total Bilirubin 1.4 H, AST 41, ALT 28, Alkaline Phosphatase 81 , Triglycerides 71, Cholesterol 109, HDL Cholesterol 17 L, Cholesterol/HDL Ratio 6.41 11/05/17 04:08: WBC 8.6 D, Hgb 7.0 L*, Hct 22.9 L, Plt Count 119 L D 11/04/17 : Magnesium Cancelled 11/04/17 22:55: Troponin I 0.04 H 11/04/17 22:55: Magnesium 2.0 D 11/04/17 14:30: Troponin I Cancelled 11/04/17 11:45: PT 18.1 H, INR 1.53 11/04/17 11:45: WBC 13.6 H, Hgb 8.1 L, Hct 26.8 L, Plt Count 161 11/04/17 11:45: B-Natriuretic Peptide 118 H 11/04/17 11:45: Sodium 127 L, Potassium 4.3, BUN 10, Creatinine 0.76, Glucose 361 H, Magnesium 1.5 L, Total Bilirubin 2.2 H, AST 60 H, ALT 37, Alkaline Phosphatase 104, Lipase 38 - Problems (1) Cough Current Visit: Yes Status: Acute Plan: Patient is 77 years of age admitted with a chronic cough and dizziness denies a significant tobacco abuse patient is mildly hypoxic PE appears to have cirrhosis of the liver from prior alcohol abuse with splenomegaly and varices normal left ventricular function CT scan is nonspecific bilateral patchy patient is mildly hyponatremia could normocytic anemia home medications and verified he was on Coreg with hold Coreg for now continue with a PPI could be reflux mediated trial of bronchodilators also has a mass in the dome of the liver and needs to be evaluated patient's hemoglobin A1c is elevated probably has underlying diabetes urine culture ID of the microbes pending apparently patient has a history of significant smoking in the past possible that he has underlying obstructive airways disease start patient on Dulera possible discharge tomorrow follow with me as an outpatient he will need outpatient pulmonary function test. Patient quit smoking 5 weeks ago
[2017-11-05] MEDS: ENOXAPARIN 40 MG/0.4 ML SQ SCH (13:09)
[2017-11-05] MEDS: THIAMINE HCL 100 MG TABLET PO SCH (13:11)
[2017-11-05] MEDS: FOLIC ACID 1 MG TABLET PO SCH (13:11)
[2017-11-05] MEDS: ASPIRIN EC 81 MG TAB PO SCH (13:11)
[2017-11-05] MEDS: PANTOPRAZOLE 40MG TABLET PO SCH ×2 (13:11→16:48)
[2017-11-05] MEDS: predniSONE 20 MG TAB PO SCH ×2 (13:49→20:11)
[2017-11-05] MEDS: DULERA 200/5 (MOMETASONE/FORMOTEROL) INHALER IH SCH ×2 (13:50→20:11)
[2017-11-05] MEDS: FUROSEMIDE 20 MG/ 2ML VIAL IV SCH ×2 (15:55→19:41)
[2017-11-05] MEDS: ATORVASTATIN 40 MG TAB PO SCH (20:11)
[2017-11-06 06:20] LABS: Absolute Lymphocytes (CBC) 1.1 K/uL (0.7-4.9); Absolute Monocytes 0.5 K/uL (0.1-1.3); Absolute Neutrophil 3.1 K/uL (1.8-8.0); Basophils % 0.2 % (0-1.3); Hematocrit 28.4 % (39.6-49.0); Lymphocytes % 22.6 % (15.3-44.8); MCH 27.1 pg (27.0-35.0); MCV 83.1 fL (80-100); MPV 9.3 fL (7.6-11.3); Monocytes % 11.3 % (3.3-12.3); RBC Red Blood Cell Count 3.42 M/uL (4.33-5.43)
[2017-11-06 06:45] LABS: ALT/SGPT 26 IU/L (10-60); AST/SGOT 35 IU/L (10-42); Albumin 2.5 g/dL (3.2-5.5); Alkaline Phosphatase 90 IU/L (42-121); BUN Blood Urea Nitrogen 18 mg/dL (6-20); Bicarbonate 24 mEq/L (21-31); Bilirubin Total 1.5 mg/dL (0.3-1.2); Glucose Level 334 mg/dL (65-120); Magnesium 2.2 mg/dL (1.8-2.5); Potassium 4.3 mEq/L (3.6-5.0); Protein, Total 6.8 g/dL (6.0-8.3); Sodium Level 133 mEq/L (135-145)
[2017-11-06] MEDS: INSULIN -REGULAR HUMAN 50 UNIT/0.5 ML ML SQ SCH ×4 (07:30→21:26)
[2017-11-06] MEDS: PANTOPRAZOLE 40MG TABLET PO SCH ×2 (07:30→17:28)
[2017-11-06] MEDS ORDERED: Levofloxacin500mg IV 500 MG/100 ML BAG IV SCH (08:00)
[2017-11-06] MEDS: DULERA 200/5 (MOMETASONE/FORMOTEROL) INHALER IH SCH ×2 (08:22→21:28)
[2017-11-06] MEDS ORDERED: AZITHROMYCIN 250 MG TAB PO SCH (09:00)
[2017-11-06] MEDS: ENOXAPARIN 40 MG/0.4 ML SQ SCH (09:00)
[2017-11-06] MEDS: predniSONE 20 MG TAB PO SCH ×2 (09:00→21:25)
[2017-11-06] MEDS ORDERED: CEFTRIAXONE 1 GM/NS 50 ML 1 GM/50 ML BAG IV SCH (09:00)
[2017-11-06] MEDS: FERROUS SULFATE 325 MG TAB PO SCH ×2 (09:00→21:25)
[2017-11-06] MEDS ORDERED: NA CHLORIDE 0.9% 1,000 ML ONE (12:26)
[2017-11-06] MEDS ORDERED: PROPOFOL 200 MG/20 ML VIAL IV ONE (14:05)
[2017-11-06] MEDS ORDERED: LIDOCAINE 1% MPF 5 ML VIAL ONE (14:05)
--- NOTE | 2017-11-06 14:58 | P.PN ---
Subjective Date of Service: 11/06/17 Primary Care Provider: Dr. Garcia; GI-Dr. [place] Chief Complaint: Cough and dizziness No changes still complains of a chronic cough had an EGD done today Review of Systems No change Physical Examination - Vital Signs Temperature: 97.1 F Blood Pressure: 128/56 Pulse: 72 Respirations: 16 Pulse Ox (%): 93 - Physical Exam General: Alert, Cooperative Respiratory: Expiratory wheezes Cardiovascular: No edema - Studies Microbiology Data (last 24 hrs): 11/04/17 18:00 Clean Catch Urine [place] Count - Final >100,000 CFU/ML. 11/04/17 18:00 Clean Catch Urine - Final Enterococcus Faecalis Medications List Reviewed: Yes Assessment & Plan - Problems (Diagnosis) (1) Cough Current Visit: Yes Status: Acute Plan: Patient still continues to cough he is wheezing he probably has underlying obstructive airways disease has been no change since yesterday patient is on nebulizers and steroids room-air sat is satisfactory I think he can be discharged home on low-dose prednisone 10 mg twice a day for 10 days in addition to a combination inhaler with an anticholinergic eg Anoro, Combivent Stiolto etc. He does not qualify for home O2 follow with me in 2 weeks doubt pneumonia
[2017-11-06] MEDS: ASPIRIN EC 81 MG TAB PO SCH (16:00)
[2017-11-06] MEDS: FOLIC ACID 1 MG TABLET PO SCH (16:00)
[2017-11-06] MEDS: THIAMINE HCL 100 MG TABLET PO SCH (16:00)
--- NOTE | 2017-11-06 17:09 | P.PN ---
Subjective Date of Service: 11/06/17 Primary Care Provider: Dr. Garcia; GI-Dr. [place] Chief Complaint: Cough and dizziness Subjective: Improving Physical Examination - Vital Signs Temperature: 97.3 F Blood Pressure: 153/60 Pulse: 78 Respirations: 18 Pulse Ox (%): 94 - Physical Exam General: Alert, In no apparent distress, Oriented x3, Cooperative HEENT: Atraumatic Neck: Supple Respiratory: Clear to auscultation bilaterally, Normal air movement Cardiovascular: Normal pulses, Regular rate/rhythm Gastrointestinal: Normal bowel sounds, Soft and benign, Non-distended, No tenderness, No masses, No rebound, No guarding Musculoskeletal: No erythema, No tenderness, No warmth Integumentary: No tenderness/swelling, No erythema, No warmth, No cyanosis Neurological: Normal speech, Normal strength at 5/5 x4 extr, Normal tone - Studies Microbiology Data (last 24 hrs): 11/04/17 18:00 Clean Catch Urine [place] Count - Final >100,000 CFU/ML. 11/04/17 18:00 Clean Catch Urine - Final Enterococcus Faecalis Medications List Reviewed: Yes Assessment & Plan - Problems (Diagnosis) (1) Shortness of breath Onset Date: 11/05/17 Current Visit: Yes Status: Acute Plan: Patient with COPD exacerbation. Patient will continue with COPD treatment. Case discussed with pulmonology. Patient will require steroid taper. Patient will need medication at discharge likely with Symbicort and Pro air. Patient with UTI. Antibiotics adjusted. Blood cultures negative. Patient had EGD. Case discussed with GI. Patient has gastritis, gastric varices, duodenum angiodysplasia. Patient will continue with PPI. Patient will need to be monitored overnight. If stable the patient can be discharged home. Echocardiogram shows ejection fraction 73%. Patient has received 2 units of blood. Hemoglobin stable at this time. Patient will continue with iron supplementation. (2) Pneumonia Onset Date: 11/05/17 Current Visit: Yes Status: Acute Plan: Likely atypical . Pulmonology felt the patient has COPD exacerbation. Patient on antibiotic therapy. Continue COPD treatment. Will recheck chest x-ray in the morning. Qualifiers: Pneumonia type: due to unspecified organism Laterality: bilateral Lung location: lower lobe of lung Qualified Code(s): J18.1 - Lobar pneumonia, unspecified organism (3) COPD (chronic obstructive pulmonary disease) Onset Date: 11/05/17 Current Visit: Yes Status: Acute Plan: Patient likely with underlying mild COPD exacerbation. Patient will need to be treated for COPD at discharge. Qualifiers: COPD type: COPD with acute exacerbation Qualified Code(s): J44.1 - Chronic obstructive pulmonary disease with (acute) exacerbation (4) Hyponatremia Onset Date: 11/05/17 Current Visit: Yes Status: Acute Plan: This has improved. Will monitor closely. (5) Cirrhosis of liver Onset Date: 11/05/17 Current Visit: Yes Status: Chronic Plan: CT scan shows cirrhosis of the liver with splenomegaly and gastric varices. EGD shows gastritis, gastric varices and duodenum angiodysplasia. Will continue with above plan of care. Qualifiers: Hepatic cirrhosis type: alcoholic cirrhosis Ascites presence: without ascites Qualified Code(s): K70.30 - Alcoholic cirrhosis of liver without ascites (6) CAD (coronary artery disease) Onset Date: 11/05/17 Current Visit: Yes Status: Chronic Plan: Patient with elevated troponin. Will monitor cardiac enzymes. Case discussed with cardiology. No intervention needed at this time. Qualifiers: Coronary Disease-Associated Artery/Lesion type: unspecified vessel or lesion type Associated angina: angina presence unspecified (7) Diabetes mellitus Onset Date: 11/05/17 Current Visit: Yes Status: Chronic Plan: A1C-8.3. Will continue with sliding scale. Will need to verify home medication. 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 Qualifiers: Hypertension type: essential hypertension Qualified Code(s): I10 - Essential (primary) hypertension (9) GERD (gastroesophageal reflux disease) Onset Date: 11/05/17 Current Visit: Yes Status: Chronic Plan: Thickening of the esophagus noted on CT scan. CT scan also shows cirrhosis, gastric varices and splenomegaly. Patient given 2 units of blood. Patient had EGD. EGD findings as stated above. Will continue PPI b.i.d.. If stable the patient can be discharged tomorrow. Qualifiers: Esophagitis presence: esophagitis presence not specified Qualified Code(s) : K21.9 - Gastro-esophageal reflux disease without esophagitis (10) Anemia Onset Date: 11/05/17 Current Visit: Yes Status: Chronic Plan: Patient has gastritis, gastric varices and duodenum angiodysplasia. Will continue with PPI. Patient has received 2 units of blood. GI recommends to recheck lab tomorrow. If stable the patient can be discharged. Qualifiers: Anemia type: other cause Other causes of anemia: chronic disease, other Qualified Code(s): D63.8 - Anemia in other chronic diseases classified elsewhere (11) Weight loss Onset Date: 11/05/17 Current Visit: Yes Status: Acute Plan: Patient reports weight loss. Will discuss with consultants. Will need to review previous information at [facility]. (12) Elevated troponin Onset Date: 11/05/17 Current Visit: Yes Status: Acute Plan: Will monitor cardiac enzymes. Cardiology consulted. Await echocardiogram. (13) Hyperbilirubinemia Onset Date: 11/05/17 Current Visit: Yes Status: Acute Plan: Likely from cirrhosis. Will monitor closely. (14) Cholelithiasis Onset Date: 11/05/17 Current Visit: Yes Status: Chronic Plan: Cholelithiasis noted. No cholecystitis noted Qualifiers: Cholelithiasis location: gallbladder Cholecystitis presence: without cholecystitis Biliary obstruction: without biliary obstruction Qualified Code(s): K80.20 - Calculus of gallbladder without cholecystitis without obstruction (15) Gastritis Current Visit: Yes Status: Acute Plan: Continue with above plan of care Qualifiers: Gastritis type: unspecified gastritis Chronicity: unspecified Gastritis bleeding: without bleeding Qualified Code(s): K29.70 - Gastritis, unspecified , without bleeding (16) Gastric varices Current Visit: Yes Status: Acute Plan: Continue with above plan of care (17) Angiodysplasia of duodenum Current Visit: Yes Status: Acute Plan: Continue with above plan of care (18) UTI (urinary tract infection) Current Visit: Yes Status: Acute Plan: Urine culture positive for Enterococcus. Antibiotic changed to oral. Patient will continue with 7 day treatment. Qualifiers: Urinary tract infection type: site unspecified Hematuria presence: without hematuria Qualified Code(s): N39.0 - Urinary tract infection, site not specified Discharge Plan: Home Plan to discharge in: 24 Hours Time Spent Managing Pts Care (In Minutes): 55
[2017-11-06] MEDS: ATORVASTATIN 40 MG TAB PO SCH (21:25)
[2017-11-06] MEDS: NITROFURAN MACRO 100 MG CAP PO SCH (21:25)
[2017-11-06] MEDS: ENSURE CLEAR 200 ML CAN PO SCH ×2 (21:27→21:41)
--- NOTE | 2017-11-07 00:49 | OP ---
Surgeon: Shahid Russell MD Procedure Performed: Esophagogastroduodenoscopy. Performing Physician: Shahid Russell M.D. Indication For Procedure: Anemia, rule out upper GI bleed. For full details, please refer to Dr. Me harrison's consultation from yesterday. Plan For Anesthesia: Monitored anesthesia care. Complexity: High due to probability of therapeutic intervention. Technique: After obtaining informed consent from the patient and explaining risks and complications which include, but are not limited to bleeding, infection, perforation, and anesthesia complication, the patient was placed in the left lateral position and sedation was given. From then on, the scope was advanced to the mouth and carefully guided up till the 3rd portion of the duodenum. There was no active bleeding seen, but stigmata of recent bleeding were noted. After the completion of all thera peutic maneuvers, scope and equipment were withdrawn and procedure terminated in a safe manner. Findings: Esophagus: No gross lesion seen in the upper and mid esophagus; however, in the distal es ophagus, there was evidence of grade 1-2 esophageal varices. Also seen was evidence of acid reflux d isease. There was some questionable scarring noted, unclear if he has had any banding procedure befo re. However, there were no high-risk stigmata or stigmata of recent bleeding on the varices. Stomach: Mild patchy erythema seen in the body and antrum and in the upper body, there were few eros ions that were nonbleeding that was seen. Duodenum: The bulb appeared normal, however, in the second part, 3 AVMs were seen, 1 of them was reymundo te large and appeared to have recently bled. This was treated with APC immediately as expected after the treatment was initiated. Oozing of blood was noted, however, this was controlled and bleeding s topped. All the visible AVMs in the second part of the duodenum were ablated. No AVM seen in the th ird part. However, a small submucosal lesion like a lipoma seen. Biopsies were not taken due to thi s being only a therapeutic procedure and the patient being on anticoagulation. Complications: None. Tolerance To Anesthesia: Excellent. Postoperative Diagnoses: Duodenal AVM status post treatment, gastritis with erosions, esophageal bertrand ices. Plan: 1.Oral PPI daily. 2.Avoid NSAIDs. 3.Follow up with GI clinic. 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 If he does not have one, we can see him in our clinic. /ELISE Voice ID: [id number] Report ID: [id number]
[2017-11-07 06:52] LABS: ALT/SGPT 25 IU/L (10-60); AST/SGOT 39 IU/L (10-42); Albumin 2.6 g/dL (3.2-5.5); Alkaline Phosphatase 97 IU/L (42-121); BUN Blood Urea Nitrogen 16 mg/dL (6-20); Bicarbonate 22 mEq/L (21-31); Bilirubin Total 1.3 mg/dL (0.3-1.2); Glucose Level 361 mg/dL (65-120); Magnesium 2.1 mg/dL (1.8-2.5); Potassium 4.3 mEq/L (3.6-5.0); Protein, Total 6.8 g/dL (6.0-8.3); Sodium Level 135 mEq/L (135-145)
[2017-11-07 07:11] LABS: Absolute Lymphocytes (CBC) 0.8 K/uL (0.7-4.9); Absolute Monocytes 0.4 K/uL (0.1-1.3); Absolute Neutrophil 3.1 K/uL (1.8-8.0); Basophils % 0.2 % (0-1.3); Hematocrit 27.9 % (39.6-49.0); Lymphocytes % 18.6 % (15.3-44.8); MCH 27.1 pg (27.0-35.0); MPV 8.9 fL (7.6-11.3); Monocytes % 8.5 % (3.3-12.3); RBC Red Blood Cell Count 3.32 M/uL (4.33-5.43)
[2017-11-07] MEDS: INSULIN -REGULAR HUMAN 50 UNIT/0.5 ML ML SQ SCH ×5 (07:30→21:04)
[2017-11-07] MEDS: NITROFURAN MACRO 100 MG CAP PO SCH ×2 (08:34→21:03)
[2017-11-07] MEDS: ENOXAPARIN 40 MG/0.4 ML SQ SCH (08:34)
[2017-11-07] MEDS: predniSONE 20 MG TAB PO SCH ×2 (08:34→21:04)
[2017-11-07] MEDS: ASPIRIN EC 81 MG TAB PO SCH (08:34)
[2017-11-07] MEDS: PANTOPRAZOLE 40MG TABLET PO SCH ×2 (08:34→16:59)
[2017-11-07] MEDS: FERROUS SULFATE 325 MG TAB PO SCH ×2 (08:34→21:04)
[2017-11-07] MEDS: FOLIC ACID 1 MG TABLET PO SCH (08:34)
[2017-11-07] MEDS: THIAMINE HCL 100 MG TABLET PO SCH (08:34)
[2017-11-07] MEDS: DULERA 200/5 (MOMETASONE/FORMOTEROL) INHALER IH SCH ×2 (08:35→21:04)
[2017-11-07] MEDS: ENSURE CLEAR 200 ML CAN PO SCH ×2 (08:36→21:15)
--- NOTE | 2017-11-07 09:14 | RAD REPORT ---
EXAM DESCRIPTION: RAD - Chest Pa And Lat (2 Views) - 11/07/2017 8:31 am CLINICAL HISTORY: Pneumonia, COPD COMPARISON: November 05, November 04 TECHNIQUE: PA and lateral views of the chest were obtained. FINDINGS: The lungs are fibrotic as a baseline pattern. Patchy pneumonias in the lateral right midl ida field and left base are not significantly different from prior imaging. No new or progressive fin ding in the lung parenchyma. Heart size is normal and central vasculature is within normal limits. No pleural effusion or pneumo thorax seen. No acute bony finding noted. No aortic abnormality. IMPRESSION: Patchy right midlung field and left lung base infiltrate superimposed on fibrosis. Pattern is stable from comparison.
--- NOTE | 2017-11-07 11:42 | CON ---
Date of Consultation: 11/05/2017 Reason For Consultation: Shortness of breath. History Of Present Illness: Mr. Lucio is a 77-year-old male, has no significant past cardiac hist ory as far as we know or as far as he knows. He does have a history of hypertension and dyslipidemia . He came in with mostly dyspnea on exertion, but no chest pain, but was found on the chest x-ray to have bilateral pleural effusion, congestive heart failure, and pneumonia, which is possible. He als o was found on a CT scan to have cirrhosis, esophagitis, and varices. The patient apparently unaware of any of these issues in the past. Denied chest pain. Denied syncope or palpitation. Denied feve r or chills. Has had some cough. He sees Dr. Garcia as an outpatient for primary care. Past Medical History: As stated above. Allergie: His allergies are none. Review of Systems: Negative social history. Family History: Noncontributory. Physical Examination: General: He appeared his stated age. He was not in much distress when I saw him. Vital Signs: Stable. He was afebrile. He was in a sinus rhythm. HEENT: Negative. Neck: Supple without any bruit, lymphadenopathy, JVD, or thyromegaly. Chest: Revealed decreased breath sounds bilaterally with some rales bilaterally. Cardiac: Revealed a regular rhythm and rate with an S4 gallops. No murmurs or rubs. Abdomen: Benign. Extremities: revealed no clubbing, cyanosis. He had trace edema. Diagnostic Data: His EKG was nonspecific. Chest x-ray was positive for congestive heart failure. C T angiogram of the chest showed bilateral pleural effusion, pneumonia versus CHF, cirrhosis, esophagi tis, varices. Hemoglobin was 8.1, glucose 336, white count of 13,000 with a sodium of 127. His mag was 1.5. Troponin was 0.18. Impression And Plan: 1.I think Mr. Lucio is very sick patient, although he is unaware of all his illnesses, but he see ms to have a major issue with cirrhosis enough to cause the varices in his esophagus secondary to por francia hypertension. 2.Pneumonia versus congestive heart failure. He does have a white count. He is on appropriate ther apy for that. He may have acute diastolic congestive heart failure as well. He has obviously diabet es with uncontrolled glucose. His low sodium may be explained based on the hyperglycemia. He is obv iously very anemic, may be secondary to the esophageal varices. He has low magnesium. I do not thin k, the troponin elevation is of significance from a coronary issue. I think this is secondary to com bination of anemia, congestive heart failure, possible pneumonia as well as cirrhosis and maybe diast olic congestive heart failure. I think, he is on inhalers right now, Lipitor, antibiotics, Protonix, insulin, and thiamin. I think, he needs to have an echocardiogram to establish his ejection fractio n. I would continue the other therapy, but I think, he needs to have a GI consult for his cirrhosis and esophageal varices, may be considered transfusions as well. He probably should be on some kind o f diabetic therapy in addition to his present medication. He takes Coreg, lisinopril, potassium, Stanley max, and Aldactone for his hypertension. Lipitor has been added for his dyslipidemia. Mr. Lucio definitely needs an outpatient stress test eventually, but we will wait for his other problem to be s table. I will make sure he comes and see me in the office in the next week or two. MELITON/ELISE Voice ID: [id number] Report ID: [id number]
--- NOTE | 2017-11-07 14:18 | PN ---
Date of Progress Note: 11/07/2017 Subjective: The patient seen and examined, chart reviewed, and case discussed with RN. The patient is doing well. No acute events overnight. States his breathing is so-so. No report from nurses reg arding any acute issues. Review of Systems: Negative except as above. Medications: Reviewed. Physical Examination: Vital Signs: Temperature 97, heart rate 80, blood pressure 156/67, respirations 16, and O2 93% on ro om air. General: Awake, alert, oriented x3, not in any acute distress. Elderly male, somewhat ill-appearing . CV: S1, S2. No murmurs. Regular rate and rhythm. Peripheral pulses present. Respiratory: Diminished breath sounds at the bases, otherwise moving air well. Mild wheezing. Gastrointestinal: Abdomen is soft, nontender, nondistended. Positive bowel sounds. Extremities: No clubbing, cyanosis, edema. Neurologic: Nonfocal. Laboratory Data: WBC 4.2, H and H 9 and 27.9, and platelets 122. Sodium 135, potassium 4.3, chlorid e 108, CO2 22, BUN 16, creatinine 0.61, glucose 361, calcium 8.5, magnesium 2.1, total bilirubin 1.3, and albumin 2.6. Urine culture shows Enterococcus faecalis. Sputum culture pending. Blood culture , no growth to date. Chest x-ray shows patchy right mid lung field and left lung base infiltrate, vazquez perimposed on fibrosis. Pattern is stable from comparison. Personally reviewed. Assessment: A 77-year-old male with; 1.Shortness of breath, likely due to chronic obstructive pulmonary disease exacerbation. We will co ntinue with treatment, improved. The patient now on room air. Will ambulate and determine need for home oxygen, make sure the patient is not dyspneic on exertion. 2.Acute chronic obstructive pulmonary disease exacerbation. We will continue inhaler treatments and steroid taper. Pulmonology on the case. 3.Pneumonia, atypical, on antibiotic therapy. Repeat chest x-ray this morning shows stable chest, b ut infiltrate in the right mid lung and left lower lung along with pulmonary fibrosis. 4.Pulmonary fibrosis. 5.Hyponatremia, improved. We will continue to monitor. 6.Cirrhosis of the liver. The patient has splenomegaly, gastric varices. EGD was done, showed cody ritis, gastric varices, and duodenum angiodysplasia. Has been transfused 2 units PRBCs. Appreciate GI input. 7.Coronary artery disease, [place] artery, [place] heart, without any angina. The patient did have so me elevated troponin. No intervention per Cardiology at this time. We will need outpatient stress t est. 8.Diabetes mellitus type 2. A1c 8.3%. Continue sliding scale insulin. We may need to add long-act ing due to uncontrolled blood sugar levels. 9.Essential hypertension, stable. 10.Gastroesophageal reflux disease with gastric varices, splenomegaly. Continue PPI. 11.Anemia, likely due to gastrointestinal blood loss. Has been transfuses 2 units of PRBCs. We or[place] l continue to monitor. Continue PPI. 12.Weight loss. 13.Elevated troponin level secondary to congestive heart failure, anemia, and chronic obstructive pu lmonary disease. No intervention per Cardiology. Echo pending. 14.Hyperbilirubinemia, likely from liver cirrhosis. 15.Cholelithiasis. No cholecystitis. 16.Acute gastritis. 17.Gastric varices. 18.Angiodysplasia of the duodenum. 19.Urinary tract infection, acute cystitis without hematuria. Culture positive for Enterococcus. C ontinue with nitrofurantoin. 20.Gastrointestinal and deep venous thrombosis prophylaxis addressed. Plan: We will adjust insulin. We will add long acting. Continue to monitor H and H. Likely discha rge in the next 24-42 hours if continues to improve. /ELISE Voice ID: [id number] Report ID: [id number]
[2017-11-07] MEDS ORDERED: INSULIN DETEMIR 100 UNIT/1 ML INSULIN SQ SCH (21:00)
[2017-11-07] MEDS: ATORVASTATIN 40 MG TAB PO SCH (21:04)
[2017-11-08] MEDS: PANTOPRAZOLE 40MG TABLET PO SCH (08:13)
[2017-11-08] MEDS: DULERA 200/5 (MOMETASONE/FORMOTEROL) INHALER IH SCH (08:13)
[2017-11-08] MEDS: FOLIC ACID 1 MG TABLET PO SCH (08:13)
[2017-11-08] MEDS: ENOXAPARIN 40 MG/0.4 ML SQ SCH (08:13)
[2017-11-08] MEDS: THIAMINE HCL 100 MG TABLET PO SCH (08:14)
[2017-11-08] MEDS: INSULIN -REGULAR HUMAN 50 UNIT/0.5 ML ML SQ SCH (08:14)
[2017-11-08] MEDS: FERROUS SULFATE 325 MG TAB PO SCH (08:14)
[2017-11-08] MEDS: predniSONE 20 MG TAB PO SCH (08:14)
[2017-11-08] MEDS: NITROFURAN MACRO 100 MG CAP PO SCH (08:14)
[2017-11-08] MEDS: ASPIRIN EC 81 MG TAB PO SCH (08:14)
[2017-11-08] MEDS: ENSURE CLEAR 200 ML CAN PO SCH (08:15)
--- NOTE | 2017-11-08 11:49 | P.DS ---
Admission Date: 11/05/17 Discharge Date: 11/08/17 Primary Care Provider: Dr. Garcia; GI-Dr. Carolina Disposition: ROUTINE DISCHARGE Discharge Condition: FAIR Reason for Admission: Cough and dizziness - Problems (1) Cough Current Visit: Yes Status: Acute Brief History of Present Illness: Patient is 77 years of age admitted to the hospital complaining of cough and dizziness he has been sick since the middle of her very came here to the emergency room he was complaining of shortness of breath lower extremity edema and was transferred to a hospital in [facility]. According to the patient he had an DC patient was discharged still complaining of coughing and dizzy spells and was admitted again from the emergency room he denies any history of tobacco abuse is found to be anemic nonspecific changes on the CT scan Hospital Course: Patient still continued to complain of chronic cough he was wheezing I suspect that she has COPD he just recently quit smoking and was prescribed a bronchodilator In addition he has active cirrhosis confirmed by a EGD due to the anemia in addition patient had enterococcus in the urine and was prescribed amoxicillin for another 10 days he has been advised to quit smoking At the time of discharge the patient was doing well vital signs all stable blood pressure is little elevated his home medications were obtained only today due to a wrong name at the pharmacy he is to continue with his Dulera again console to quit smoke active cirrhosis the time of discharge he was alert oriented responsive cooperative chest shows rhonchi cardiovascular system on signs normal probably has underlying diastolic dysfunction I have advised him to stop taking potassium. Patient was also transfused 2 units of packed red blood cells echocardiogram was normal left ventricular function BNP was only mildly elevated he had bilateral patchy opacity possibly volume overload in addition patient had an abnormality in the liver niece to follow up with GI No evidence of pulmonary fibrosis on the CT scan shows bilateral nonspecific patchy chain blood sugar was elevated I suspect secondary to steroids which have been stopped the to confirm if he is taking any and diabetic medications 2 diabetes mellitus have been listed as 1 of his diagnosis Vital Signs/Physical Exam: Temp Pulse Resp BP Pulse Ox 97.6 F 79 16 176/68 H 97 11/08/17 08:00 11/08/17 08:00 11/08/17 08:00 11/08/17 08:00 11/08/17 08:00 Laboratory Data at Discharge: WBC 4.2 K/uL (4.3-10.9) L 11/07/17 05:29 Hgb 9.0 g/dL (13.6-17.9) L 11/07/17 05:29 Hct 27.9 % (39.6-49.0) L 11/07/17 05:29 Plt Count 122 K/uL (152-406) L 11/07/17 05:29 PT 18.1 SECONDS (9.5-12.5) H 11/04/17 11:45 INR 1.53 11/04/17 11:45 Sodium 135 mEq/L (135-145) 11/07/17 05:29 Potassium 4.3 mEq/L (3.6-5.0) 11/07/17 05:29 BUN 16 mg/dL (6-20) 11/07/17 05:29 Creatinine 0.61 mg/dL (0.61-1.24) 11/07/17 05:29 Glucose 361 mg/dL (65-120) H 11/07/17 05:29 Magnesium 2.1 mg/dL (1.8-2.5) 11/07/17 05:29 Total Bilirubin 1.3 mg/dL (0.3-1.2) H 11/07/17 05:29 AST 39 IU/L (10-42) 11/07/17 05:29 ALT 25 IU/L (10-60) 11/07/17 05:29 Alkaline Phosphatase 97 IU/L (42-121) 11/07/17 05:29 Troponin I 0.07 ng/mL (<0.03) H 11/05/17 04:08 B-Natriuretic Peptide 118 pg/ml (<=100) H 11/04/17 11:45 Triglycerides 71 mg/dL (35-160) 11/05/17 04:08 Cholesterol 109 mg/dL (<200) 11/05/17 04:08 HDL Cholesterol 17 mg/dL (27-67) L 11/05/17 04:08 Cholesterol/HDL Ratio 6.41 11/05/17 04:08 Lipase 38 U/L (22-51) 11/04/17 11:45 Home Medications: Amoxicillin 500 mg PO BID #20 tablet 11/08/17 Carvedilol [Coreg*] 1 tab PO BID 11/08/17 Furosemide [Lasix*] 1 tab PO DAILY 11/08/17 Mometasone/Formoterol [Dulera 200 Mcg/5 Mcg Inhaler] 2 puff IH BID #1 inhaler Simvastatin 1 tab PO DAILY 11/08/17 Spironolactone 1 tab PO DAILY 11/08/17 Tamsulosin HCl [Flomax] 1 cap PO DAILY 11/08/17 New Medications: Amoxicillin 500 mg PO BID #20 tablet Mometasone/Formoterol [Dulera 200 Mcg/5 Mcg Inhaler] 2 puff IH BID #1 inhaler Patient Discharge Instructions: Patient to stop taking his potassium please give him the dual air from the hospital to take 2 puffs twice a day. Patient's blood sugar is elevated he is a type 2 diabetic he probably takes the medications at home please call me and let me know what he takes. Patient to follow up with Dr. Carolina Diet: Regular Activity: Ad barrera Followup: Shola Grijalva MD [ACTIVE - CAN ADMIT] - Chiqui Carolina MD [ACTIVE - CAN ADMIT] - Colin Painter MD [ASSOCIATE-ACTIVE - CAN ADMIT] -
[2017-11-08 12:10] VITALS: BP 177/84; TEMP 97.8
[2017-11-08 13:24] VITALS: O2SAT 97
--- NOTE | 2017-11-10 11:45 | CON ---
Date of Consultation: 11/05/2017 Reason For Consultation: Severe anemia, suspected GI bleeding. History Of Present Illness: Mr. Lucio is a 77-year-old gentleman, who came to the hospital with i ncreasing shortness of breath, weakness, dizziness, and especially on exertion. He reportedly was fo und to be anemic in the recent past and has been undergone both upper and lower GI endoscopy in [facility]. According to him, "nothing was found other than cirrhosis." As far as the patient is concerned, he denies any abdominal pain. He has some fullness and bloatedne ss. Other than that, no really abdominal pain. Denies any history of hematemesis, melena, or hemato chezia. After coming to the hospital, he got blood transfusion and after blood transfusion, he is so mewhat better. Shortness of breath is also better. Past Medical History: Other than above, hypertension. Past Surgical History: Not related to above. Family History: Denies any gastrointestinal malignancy in the family or [facility]. Social History: Past alcohol. No tobacco. Psychiatric History: None. Allergies: REVIEWED IN THE CHART. Medications: Reviewed in the chart. Review of Systems: General: Some weight gain, which is rapid. No fever or chills. Appetite also has been affected in the way of poor appetite. GI: As elaborated above. Hepatologic: Prior to current workup, he denies any history that he related to his liver, specifical ly no past history of jaundice or hepatitis. Pulmonary: Some shortness of breath. No cough or expectoration. No exposure to TB. Cardiac: Orthopnea and dyspnea has resolved. Some occasional palpitations. No heart murmur. Musculoskeletal: Generalized weakness and soreness. Genitourinary: Dysuria and frequency. Neuropsychiatric: None. Neuroendocrine: None. Dermatologic: No excessive pruritus. No other lesions. Physical Examination: General: Elderly male, pale appearing, no other acute distress noted. Hemodynamic respiratory profi le within normal range. HEENT: Atraumatic, normocephalic. Oropharynx is clear. No temporal wasting. No facial wasting. S light icterus noted. Neck: Supple. No lymphadenopathy. Trachea central in position. Chest: Clear to auscultation and percussion. No crackles. Cardiac: S1 and S2 are normal. No S3. No S4. Abdomen: Soft, nontender, and nondistended. Hepatic tip is palpable. Spleen is not palpable. Ther e is possibility mild ascites. No tenderness. No rebound tenderness. Bowel sounds are present in a ll quadrants. Prominent veins on the anterior abdominal wall. Umbilicus is inverted. Extremities: Upper extremities are normal and symmetrical. Lower extremity has pitting edema. Dermatologic: Grossly normal. Neurological: Alert and oriented x3. Intact memory, mentation, and judgment. Can move all parts of his extremities without any other problem. No asterixis. No flapping tremor. Diagnostic Data: Radiologic data reviewed, analyzed. Discussed with the patient. Impression/plan/recommendation: Mr. Lucio is a 77-year-old gentleman with significant anemia. Hi story of cirrhosis. There is no apparent overt bleeding that does not mean the patient is not bleedi ng. The main consideration in this case will be antral vascular angiodysplasia arising out of portal hypertensive gastropathy and bleeding. Acute variceal bleeding in this area seems to be unlikely, a lthough cannot be totally ruled out. In the light of recent EGD and colonoscopy, I will repeat his EGD first for the differential diagnosi s as stated above, keep him on PPI, follow hemoglobin and hematocrit, transfuse as needed, and other supportive care to continue. Diuretic may be of good use. If used judiciously, follow up inputs and outputs. I have discussed with the patient regarding the indications, contraindications, possible complication s, and alternatives of GI endoscopy including, but not limited to the possibility of bleeding, tear, perforation, infection, sepsis, need for surgery, need for blood transfusion, anesthesia related prob abilio including rare fatalities. He has good understanding. He is agreeable. AUNDREA/ELISE Voice ID: [id number] Report ID: [id number]
== END 2017-11-08 12:30 | disposition home or self-care (01) | DRG 190 ==
LOC: EDBD → ER 10:49 → ERHOLD 14:15 → 4TH 16:10 → OBSVTOIN 11-05 11:01
PROVIDERS: ADMIT Family Medicine; ATTEND Family Medicine
PROC: 0DB98ZX Excision of Duodenum, Via Natural or Artificial Opening Endoscopic, Diagnostic (ICD-10-PCS; 2017-11-06)
PROC: 0W3P8ZZ Control Bleeding in Gastrointestinal Tract, Via Natural or Artificial Opening Endoscopic (ICD-10-PCS; principal; 2017-11-06 14:07)
DX: J44.1 Chronic obstructive pulmonary disease with (acute) exacerbation (principal); J18.9 Pneumonia, unspecified organism; K31.811 Angiodysplasia of stomach and duodenum with bleeding; E87.1 Hypo-osmolality and hyponatremia; E11.9 Type 2 diabetes mellitus without complications; K80.20 Calculus of gallbladder without cholecystitis without obstruction; K70.30 Alcoholic cirrhosis of liver without ascites; I10 Essential (primary) hypertension; K29.70 Gastritis, unspecified, without bleeding; D63.8 Anemia in other chronic diseases classified elsewhere; R63.4 Abnormal weight loss; I25.10 Atherosclerotic heart disease of native coronary artery without angina pectoris; K21.9 Gastro-esophageal reflux disease without esophagitis; J84.10 Pulmonary fibrosis, unspecified; Z87.891 Personal history of nicotine dependence
CPT/HCPCS: 36415; 71046; 71260; 74176; 80048; 80053; 80061; 80076; 81003; 81015; 82550; 82553; 82607; 82728; 82962; 83036; 83540; 83690; 83735; 83880; 84145; 84300; 84439; 84443; 84466; 84484; 85014; 85018; 85025; 85610; 86850; 86900; 86901; 87040; 87077; 87086; 87088; 87186; 87804; 93005; 93306; 94640; 96361; 96374; 96375; 99285; G0378; J0456; J0696; J1650; J1940; J3475; J7030; J7512; J7605; J7606; P9016; Q9967

== ENCOUNTER 2017-11-10 14:37 | Inpatient (IN) | payer OTHER ==
[2017-11-10 15:14] LABS: Arterial Blood Carboxyhemoglob 2.3 % (0-1.5); Blood Gas Oxyhemoglobin 92.6 % (94-97); Blood O2 Saturation 95.2 % (92-98.5)
--- NOTE | 2017-11-10 15:14 | RAD REPORT ---
EXAM DESCRIPTION: RAD - Chest Single View - 11/10/2017 3:06 pm CLINICAL HISTORY: Chest pain, altered consciousness. COMPARISON: 11/07/2017 FINDINGS: Portable technique limits examination quality. The lungs are grossly clear. The heart is normal in size. No displaced fractures. IMPRESSION: No acute intrathoracic process suspected.
[2017-11-10 15:45] LABS: Absolute Lymphocytes (CBC) 1.9 K/uL (0.7-4.9); Absolute Monocytes 1.8 K/uL (0.1-1.3); Absolute Neutrophil 4.5 K/uL (1.8-8.0); Basophils % 0.1 % (0-1.3); Eosinophils % 0.6 % (0-4.4); Hematocrit 22.4 % (39.6-49.0); Lymphocytes % 22.4 % (15.3-44.8); MCH 26.5 pg (27.0-35.0); MCV 84.9 fL (80-100); MPV 8.7 fL (7.6-11.3); RBC Red Blood Cell Count 2.64 M/uL (4.33-5.43)
[2017-11-10] MEDS ORDERED: NA CHLORIDE 0.9% 1,000 ML ONE (15:49)
[2017-11-10 15:50] LABS: Albumin 2.9 g/dL (3.2-5.5); Bilirubin Total 1.5 mg/dL (0.3-1.2); Potassium 4.6 mEq/L (3.6-5.0)
[2017-11-10] MEDS ORDERED: INSULIN -REGULAR HUMAN 50 UNIT/0.5 ML ML ONE (16:38)
[2017-11-10 16:40] LABS: Urine Bacteria 20-50 /HPF (NONE SEEN); Urine Culture Reflex Order REFLEXED; Urine Mucus NS /HPF (NONE SEEN); Urine RBC NONE SEEN /HPF (NONE SEEN)
[2017-11-10 16:59] LABS: Urine Blood NEGATIVE (NEG); Urine Glucose 2+ (NEG); Urine Protein NEGATIVE (NEG); Urine Specific Gravity <1.005 (1.005-1.030); Urine pH 5.5 (5.0-7.0)
[2017-11-10] MEDS ORDERED: Levofloxacin 750mg IV 750 MG/150 ML BAG IV ONE (17:00)
[2017-11-10] MEDS ORDERED: PIPER/TAZO/NS 3.375gm 3.375 GM/100 ML BAG ONE (17:00)
[2017-11-10] MEDS ORDERED: VANCOMYCIN/NS 1 gm 1 GM/250 ML BAG ONE (17:00)
--- NOTE | 2017-11-10 19:20 | EDPHYS ---
Physician Documentation [facility] Name: Jean Lucio III Age: 77 yrs Sex: Male : 1940 Arrival Date: 11/10/2017 Time: 14:39 Bed 28 Private MD: ED Physician Paul Tinoco HPI: 11/10 14:58 This 77 yrs old Male presents to ER via Unassigned with complaints of Altered ps1 Mental Status. 14:58 The patient presents with confusion, decreased mental status. Onset: The ps1 symptoms/episode began/occurred this morning. Possible causes: Pt had glucose >500. recent admission with anemia. Possible DKA per EMS. Appears pale. Took insulin yesterday. . Patient's baseline: Neuro: alert and fully oriented. The patient has not experienced similar symptoms in the past. Historical: - Allergies: 15:24 No Known Allergies; rs2 - Home Meds: 15:24 carvedilol 3.125 mg Oral tab 1 tab 2 times per day [Active]; cefdinir 300 mg Oral cap 1 rs2 cap every 12 hours [Active]; Lasix 40 mg Oral tab 1 tab 2 times per day [Active]; lisinopril 2.5 mg Oral tab 1 tab once daily [Active]; potassium chloride 10 mEq Oral cpER 1 cap once daily [Active]; spironolactone 25 mg Oral tab 1 tab once daily [Active]; tamsulosin 0.4 mg Oral cp24 1 cap once daily [Active]; Iron CR Oral [Active]; Simvastatin Oral [Active]; - PMHx: 15:24 diagnosed with cancer at [place], did not seek treatment; Hyperlipidemia; Myocardial rs2 infarction; Hypertension; Anemia; COPD; - PSHx: 15:24 Unable to obtain; rs2 - Immunization history:: Adult Immunizations unknown. - Social history:: Smoking status: unknown. ROS: 14:58 Unable to obtain ROS due to altered mental status. ps1 Exam: 14:58 Constitutional: This is a well developed, well nourished patient who is awake, alert, ps1 and in no acute distress. Head/Face: Normocephalic, atraumatic. Eyes: Pupils equal round and reactive to light, extra-ocular motions intact. Lids and lashes normal. Conjunctiva and sclera are non-icteric and not injected. Chest/axilla: Normal chest wall appearance and motion. Nontender with no deformity. No lesions are appreciated. Cardiovascular: Regular rate and rhythm. No gallops, murmurs, or rubs. Normal PMI, no JVD. No pulse deficits. Respiratory: Lungs have equal breath sounds bilaterally, clear to auscultation and percussion. No rales, rhonchi or wheezes noted. No increased work of breathing, no retractions or nasal flaring. MS/ Extremity: Pulses equal, no cyanosis. Neurovascular intact. Full, normal range of motion. 14:58 Neuro: Orientation: to person, place. Vital Signs: 16:13 BP 165 / 104; Pulse 98; Resp 20; Pulse Ox 98% on R/A; mh5 16:48 BP 154 / 64; Pulse 101; Resp 20; Pulse Ox 97% on R/A; mh5 18:10 BP 153 / 78; Pulse 89; Resp 17; Temp 98.3; Pulse Ox 98% ; Pain 0/10; rs2 18:47 BP 129 / 66; Pulse 101; Resp 18; Pulse Ox 99% on R/A; mh5 21:25 BP 136 / 82; Pulse 86; Resp 16; Pulse Ox 99% ; tl3 MDM: 14:47 Patient medically screened. ps1 11/10 14:43 Order name: ABG; Complete Time: 15:40 ps1 11/10 14:43 Order name: CBC with Diff; Complete Time: 16:28 ps1 11/10 14:43 Order name: CMP; Complete Time: 16:28 ps1 11/10 15:43 Order name: Urine Dipstick--Ancillary (enter results); Complete Time: 17:01 bd 11/10 16:09 Order name: Urine Microscopic Only; Complete Time: 16:52 EDAK 11/10 14:43 Order name: CXR XRAY; Complete Time: 15:40 ps1 11/10 16:42 Order name: Urine Culture EDAK 11/10 20:24 Order name: CT EDAK 11/10 21:03 Order name: Hemoglobin EDAK 11/10 21:03 Order name: Hematocrit EDAK 11/10 14:43 Order name: Urine Dipstick-Ancillary (obtain specimen); Complete Time: 15:35 ps1 EC:03 Rate is 96 beats/min. Rhythm is regular. QRS [place] is Normal. [place] interval is normal. QRS ps1 interval is normal. QT interval is normal. No Q waves. T waves are Normal. No ST changes noted. Clinical impression: Normal ECG. Administered Medications: 15:30 Drug: NS 0.9% 1000 ml Route: IV; Rate: 1 bolus; Site: left antecubital; rs2 16:41 Drug: Insulin Regular Human 20 units {Co-Signature: kr2 (Chelsea Haile RN).} Route: rs2 Sub-Q; Site: left upper arm; 17:48 Drug: LevaQUIN 750 mg Volume: 150 ml; Route: IVPB; Infused Over: 90 mins; Site: left rs2 antecubital; 19:24 Follow up: IV Status: Completed infusion; IV Intake: 150ml tl3 19:23 Drug: vancoMYCIN 1 grams Route: IVPB; Infused Over: 2 hrs; Site: left antecubital; tl3 Delivery: Primary tubing; 21:46 Follow up: IV Status: Completed infusion; IV Intake: 250ml tl3 21:46 Drug: Zosyn 3.375 grams Route: IVPB; Infused Over: 60 mins; Site: left antecubital; tl3 22:00 Follow up: IV Status: Completed infusion; IV Intake: 100ml tl3 Point of Care Testing: Blood Glucose: 16:22 Blood Glucose: High (>450 mg/dL); Test Strip: Lot #: [id number]; Expiration: 11/23/2018; rs2 16:59 Blood Glucose: 435 mg/dL; mh5 18:10 Blood Glucose: 432 mg/dL; Test Strip: Lot #: [id number]; Expiration: 11/23/2018; rs2 Ranges: Critical Glucose Levels:Adult <50 mg/dl or >400 mg/dl <40 mg/dl or >180 mg/dl Disposition: 11/10/17 19:19 Hospitalization ordered by Shelly Yarbrough for Inpatient Admission. Preliminary diagnosis are Altered Mental Status, Hyperglycemia, Anemia Hgb 7.0. - Bed requested for Telemetry/MedSurg (Inpatient). - Status is Inpatient Admission. tl3 - Condition is Fair. - Problem is an ongoing problem. - Symptoms have worsened. UTI on Admission? Yes Signatures: Dispatcher [employer] Angela Yun RN RN Brittney Wang rs2 Paul Tinoco MD MD ps1 Vane Watts, RN RN tl3 Chelsea Haile RN kr2 Corrections: (The following items were deleted from the chart) 17:01 16:33 [facility]SAMIRA.SANCHO ordered. EDMS EDMS
--- NOTE | 2017-11-10 19:20 | ER ---
Nurse's Notes [facility] Name: Jean Lucio III Age: 77 yrs Sex: Male : 1940 Arrival Date: 11/10/2017 Time: 14:39 Bed 28 Private MD: Diagnosis: Altered Mental Status;Hyperglycemia;Anemia Hgb 7.0 Presentation: 11/10 15:19 Presenting complaint: EMS states: [facility] states, "Family reports he has been rs2 altered mental status for 3 days and today is worse. We checked his sugar en route and got 577." Pt recently released from [facility] on 11/05/17. Transition of care: patient was not received from another setting of care. Onset of symptoms was November 08, 2017. Care prior to arrival: None. Glucose check: 577. 15:19 Method Of Arrival: EMS: [facility] rs2 15:19 Acuity: RITA 2 rs2 21:41 Mechanism of Injury: No Mechanism of Injury. tl3 11/11 18:24 Initial Sepsis Screen: Does the patient meet any 2 criteria? No. Patient's initial tl3 sepsis screen is negative. Does the patient have a suspected source of infection? No. Patient's initial sepsis screen is negative. Triage Assessment: 11/10 15:24 General: Appears uncomfortable, unkempt, emaciated, Behavior is uncooperative. Pain: rs2 Unable to use pain scale. 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 Weakness Speech Pt has not spoken since EMS brought him in. Pt physically responds to repeated verbal commands by staff. . Cardiovascular: No deficits noted. Capillary refill is > 3 seconds. Respiratory: No deficits noted. GI: No deficits noted. Derm: Skin is pale. Historical: - Allergies: 15:24 No Known Allergies; rs2 - Home Meds: 15:24 carvedilol 3.125 mg Oral tab 1 tab 2 times per day [Active]; cefdinir 300 mg Oral cap 1 rs2 cap every 12 hours [Active]; Lasix 40 mg Oral tab 1 tab 2 times per day [Active]; lisinopril 2.5 mg Oral tab 1 tab once daily [Active]; potassium chloride 10 mEq Oral cpER 1 cap once daily [Active]; spironolactone 25 mg Oral tab 1 tab once daily [Active]; tamsulosin 0.4 mg Oral cp24 1 cap once daily [Active]; Iron CR Oral [Active]; Simvastatin Oral [Active]; - PMHx: 15:24 diagnosed with cancer at [place], did not seek treatment; Hyperlipidemia; Myocardial rs2 infarction; Hypertension; Anemia; COPD; - PSHx: 15:24 Unable to obtain; rs2 - Immunization history:: Adult Immunizations unknown. - Social history:: Smoking status: unknown. Screenin:22 Abuse screen: Denies threats or abuse. Nutritional screening: No deficits noted. rs2 Tuberculosis screening: No symptoms or risk factors identified. Fall Risk IV access (20 points). Gait- Weak (10 pts.). Mental Status- Overestimates/Forgets Limitations (15 pts.). Total Lopez Fall Scale indicates High Risk Score (45 or more points). Fall prevention measures have been instituted. Side Rails Up X 2 Placed Close to Nursing Station Frequent Obs/Assessments Occuring. Assessment: 16:22 General: Appears uncomfortable, unkempt, well nourished, Behavior is calm, rs2 uncooperative. Pain: Denies pain. Unable to use pain scale. Neuro: Level of Consciousness is awake, obeys commands, confused, Oriented to person, place, situation. Cardiovascular: No deficits noted. Respiratory: No deficits noted. GI: No deficits noted. : No deficits noted. Musculoskeletal: Pt appears generally weak and unsteady. 18:12 Reassessment: Patient states feeling better. Patient states symptoms have improved. Pt rs2 now A\\T\\Ox3. Speech appropriate. Pt denies pain. Pt updated on POC and need for admission. . 19:28 Reassessment: Patient is alert, oriented x 3, equal unlabored respirations, skin tl3 warm/dry/pink. pt resting, no needs at this time. Vital Signs: 16:13 BP 165 / 104; Pulse 98; Resp 20; Pulse Ox 98% on R/A; mh5 16:48 BP 154 / 64; Pulse 101; Resp 20; Pulse Ox 97% on R/A; mh5 18:10 BP 153 / 78; Pulse 89; Resp 17; Temp 98.3; Pulse Ox 98% ; Pain 0/10; rs2 18:47 BP 129 / 66; Pulse 101; Resp 18; Pulse Ox 99% on R/A; mh5 21:25 BP 136 / 82; Pulse 86; Resp 16; Pulse Ox 99% ; tl3 ED Course: 14:39 Patient arrived in ED. dm5 14:39 Paul Tinoco MD is Attending Physician. ps1 15:05 X-ray completed. Portable x-ray completed in exam room. Patient tolerated procedure ml well. 15:06 CXR XRAY In Process Unspecified. EDMS 15:18 Brittney Wang is Primary Nurse. rs2 15:21 Triage completed. rs2 15:34 Ferguson cath inserted, using sterile technique, 16 Fr., by me, balloon inflated, to rs2 gravity drainage, urine specimen collected. returned clear yellow urine. Patient tolerated well. 800ml urine return upon ferguson catheter insertion. Inserted saline lock: 20 gauge in right antecubital area, using aseptic technique. 15:35 CMP Sent. rs2 15:35 CBC with Diff Sent. rs2 16:22 Patient has correct armband on for positive identification. Fall risk band placed. rs2 Placed in gown. Bed in low position. Call light in reach. Side rails up X2. 18:48 Urine collected: Ferguson catheter specimen, clear, EKG done. mh5 19:06 EKG done, by ED staff, reviewed by Paul Tinoco MD. mh5 19:07 Report given to Pt report given Vane BURGESS. rs2 19:18 Shelly Yarbrough MD is Hospitalizing Provider. ps1 19:29 Primary Nurse role handed off by Brittney Wang tl3 19:29 Vane Watts, JENIFER is Primary Nurse. tl3 20:[address] vm2 21:00 Repeat lab(s) drawn. by me, sent to lab. tl3 21:24 No provider procedures requiring assistance completed. tl3 21:27 Arm band placed on right wrist. tl3 21:40 Patient admitted, IV remains in place. tl3 04 02:32 Urine Culture Sent. tl3 Administered Medications: 11/10 15:30 Drug: NS 0.9% 1000 ml Route: IV; Rate: 1 bolus; Site: left antecubital; rs2 16:41 Drug: Insulin Regular Human 20 units {Co-Signature: kr2 (Chelsea Haile RN).} Route: rs2 Sub-Q; Site: left upper arm; 17:48 Drug: LevaQUIN 750 mg Volume: 150 ml; Route: IVPB; Infused Over: 90 mins; Site: left rs2 antecubital; 19:24 Follow up: IV Status: Completed infusion; IV Intake: 150ml tl3 19:23 Drug: vancoMYCIN 1 grams Route: IVPB; Infused Over: 2 hrs; Site: left antecubital; tl3 Delivery: Primary tubing; 21:46 Follow up: IV Status: Completed infusion; IV Intake: 250ml tl3 21:46 Drug: Zosyn 3.375 grams Route: IVPB; Infused Over: 60 mins; Site: left antecubital; tl3 22:00 Follow up: IV Status: Completed infusion; IV Intake: 100ml tl3 Point of Care Testing: Blood Glucose: 16:22 Blood Glucose: High (>450 mg/dL); Test Strip: Lot #: [id number]; Expiration: 11/23/2018; rs2 16:59 Blood Glucose: 435 mg/dL; 5 18:10 Blood Glucose: 432 mg/dL; Test Strip: Lot #: [id number]; Expiration: 11/23/2018; rs2 Ranges: Intake: 19:24 IV: 150ml; Total: 150ml. tl3 21:46 IV: 250ml; Total: 400ml. tl3 22:00 IV: 100ml; Total: 500ml. tl3 Outcome: 19:19 Decision to Hospitalize by Provider. ps1 21:00 Admitted to Med/surg accompanied by tech, via stretcher, room 230, with chart, Report tl3 called to JENIFER Ceja 21:40 Condition: stable tl3 21:59 Patient left the ED. tl3 Signatures: Dispatcher [employer] EDMS Kandice Bowman RN RN preet5 Shala Ghotra Maria Kiara Wayne 2 Brittney Wang 2 Paul Tinoco MD MD ps1 Vane Watts RN RN tl3 Chelsae Haile RN kr2 Corrections: (The following items were deleted from the chart) 21:40 21:25 Mechanism of Injury: No Mechanism of Injury tl3 tl3
--- NOTE | 2017-11-10 19:55 | P.HP ---
Certification for Inpatient Patient admitted to: Inpatient With expected LOS: >2 Midnights Practitioner: I am a practitioner with admitting privileges, knowledge of patient current condition, hospital course, and medical plan of care. Services: Services provided to patient in accordance with Admission requirements found in Title 42 Section 412.3 of the Code of Federal Regulations Patient History Date of Service: 11/10/17 Reason for admission: acute encephalopathy History of Present Illness: Mr Lucio is a 77 years old male with history of liver cirrhosis, likely alcoholic since he drinks every day, CAD, DM II, HTN, COPD, who was brought by his neighbor since he was confused the last couple of days. The patient was alert and oriented at my encounter, but he does not remember much about the last 2 days. Apparently no history of fever or chills, cough, abdominal pain, dark or bloody stools, chest pain or SOB. Lab work remarkable normal WBC count, Hgb 7 mg/dl. for hyperglycemia 518 mg/dl. CXR unremarkable. Allergies No Known Allergies Allergy (Unverified 09/18/17 08:20) Home Medications: Amoxicillin 500 mg PO BID #20 tablet 11/08/17 Carvedilol [Coreg*] 1 tab PO BID 11/08/17 Furosemide [Lasix*] 1 tab PO DAILY 11/08/17 Mometasone/Formoterol [Dulera 200 Mcg/5 Mcg Inhaler] 2 puff IH BID #1 inhaler Simvastatin 1 tab PO DAILY 11/08/17 Spironolactone 1 tab PO DAILY 11/08/17 Tamsulosin HCl [Flomax] 1 cap PO DAILY 11/08/17 - Past Medical/Surgical History Diabetic: Yes -: Diabetes mellitus type 2 -: CAD -: Liver cirrhosis -: COPD -: Former tobacco use -: Alcohol use Psychosocial/ Personal History: The patient lives with a friend. He is . He has several children that he is not in contact with. - Family History Father -: Cancer Brother -: Cancer Mother -: Diabetes - Social History Smoking Status: Former smoker Alcohol use: Yes CD- Drugs: No Caffeine use: Yes Review of Systems 10-point ROS is otherwise unremarkable Physical Examination - Physical Exam General: Alert, In no apparent distress, Oriented x3 HEENT: Atraumatic, PERRLA, Mucous membr. moist/pink, EOMI, Sclerae nonicteric Neck: Supple, 2+ carotid pulse no bruit, No LAD, Without JVD or thyroid abnormality Respiratory: Clear to auscultation bilaterally, Normal air movement Cardiovascular: Regular rate/rhythm, Normal S1 S2 Gastrointestinal: Normal bowel sounds, No tenderness Musculoskeletal: No tenderness Integumentary: No rashes Neurological: Normal speech, Normal strength at 5/5 x4 extr, Normal tone, Normal affect Lymphatics: No axilla or inguinal lymphadenopathy - Studies Laboratory Data (last 24 hrs) 11/10/17 14:55: Sodium 134 L, Potassium 4.6, BUN 34 H, Creatinine 0.86, Glucose 518 H*, Total Bilirubin 1.5 H, AST 41, ALT 28, Alkaline Phosphatase 121 11/10/17 14:55: WBC 8.3 D, Hgb 7.0 L*, Hct 22.4 L D, Plt Count 187 D Assessment and Plan - Problems (Diagnosis) (1) Acute encephalopathy Current Visit: Yes Status: Acute (2) COPD (chronic obstructive pulmonary disease) Onset Date: 11/05/17 Current Visit: No Status: Acute Qualifiers: COPD type: COPD with acute exacerbation Qualified Code(s): J44.1 - Chronic obstructive pulmonary disease with (acute) exacerbation (3) CAD (coronary artery disease) Onset Date: 11/05/17 Current Visit: No Status: Chronic Qualifiers: Coronary Disease-Associated Artery/Lesion type: [place] artery [place] vs. transplanted heart: [place] heart Associated angina: without angina Qualified Code(s): I25.10 - Atherosclerotic heart disease of [place] coronary artery without angina pectoris (4) Cirrhosis of liver Onset Date: 11/05/17 Current Visit: No Status: Chronic Qualifiers: Hepatic cirrhosis type: alcoholic cirrhosis Ascites presence: without ascites Qualified Code(s): K70.30 - Alcoholic cirrhosis of liver without ascites (5) Diabetes mellitus Onset Date: 11/05/17 Current Visit: No Status: Chronic Qualifiers: Diabetes mellitus type: type 2 Diabetes mellitus ferry terminal agent insulin use: without skilled nursing use Diabetes mellitus complication status: with other specified complication Qualified Code(s): E11.69 - Type 2 diabetes mellitus with other specified complication (6) Hypertension Onset Date: 11/05/17 Current Visit: No Status: Suspected Qualifiers: Hypertension type: essential hypertension Qualified Code(s): I10 - Essential (primary) hypertension - Plan Mr Lucio will be admitted to the hospital due to acute encephalopathy. So far no clear etiology, pending CT head. He is alert and more oriented now, after receive IV fluids and IV antibiotics. However, there are no obvious signs of acute infection. His Hgb is low, 7.0 mg/dl, he will require at least 1 unit of PRBC transfusion, will repeat HH before order blood. He has history of liver cirrhosis with esophageal varices. Will monitor for active bleeding signs. Will order PPI's. - Advance Directives Does patient have a Living Will: No Does patient have a Durable POA for Healthcare: No - Code Status/Comfort Care Code Status Assessed: Yes Code Status: Full Code
--- NOTE | 2017-11-10 20:23 | RAD REPORT ---
EXAM DESCRIPTION: CT - Ct Stroke Brain Wo Cont - 11/10/2017 8:16 pm CLINICAL HISTORY: CVA, altered consciousness COMPARISON: None. TECHNIQUE: All CT scans are performed using dose optimization technique as appropriate and may inclu de automated exposure control or mA/KV adjustment according to patient size. FINDINGS: No intracranial hemorrhage, hydrocephalus or extra-axial fluid collection.No areas of brai n edema or evidence of midline shift. Small lacunar infarcts are present bilaterally, greater on the left, appearing chronic/remote. Significant polypoid mucosal thickening is noted in the right maxillary antrum. The paranasal sinuses and mastoids are otherwise clear. The calvarium is intact. IMPRESSION: No acute intracranial abnormality. If there is continued clinical concern for CVA, MR i maging of the brain would be recommended.
[2017-11-10 20:57] LABS: Hematocrit 20.4 % (39.6-49.0)
[2017-11-10] MEDS ORDERED: ONDANSETRON 4 MG/2 ML VIAL IV PRN (22:17)
[2017-11-10] MEDS ORDERED: ACETAMINOPHEN 500 MG TAB PO PRN (22:17)
[2017-11-10] MEDS ORDERED: SODIUM CHLORIDE 0.9% 10ML INJ IV PRN (22:17)
[2017-11-10 22:53] VITALS: BMI 21.6
[2017-11-10] MEDS: INSULIN -REGULAR HUMAN 50 UNIT/0.5 ML ML SQ SCH (23:31)
[2017-11-10] MEDS: NA CHLORIDE 0.9% 1,000 ML IV SCH (23:33)
[2017-11-10] MEDS ORDERED: NA CHLORIDE 0.9% 100 ML ONE (23:54)
[2017-11-11] MEDS ORDERED: NA CHLORIDE 0.9% 100 ML ONE (04:29)
[2017-11-11] MEDS ORDERED: NA CHLORIDE 0.9% 250 ML IV SCH (07:00)
[2017-11-11] MEDS: NA CHLORIDE 0.9% 1,000 ML IV SCH ×2 (08:41→19:38)
[2017-11-11] MEDS: INSULIN -REGULAR HUMAN 50 UNIT/0.5 ML ML SQ SCH ×4 (08:41→21:01)
[2017-11-11] MEDS ORDERED: PANTOPRAZOLE 40 MG INJ IVP SCH ×2 (09:00)
[2017-11-11] MEDS ORDERED: ENOXAPARIN 40 MG/0.4 ML SQ SCH (09:00)
[2017-11-11 09:48] LABS: ALT/SGPT 26 IU/L (10-60); AST/SGOT 37 IU/L (10-42); Albumin 2.3 g/dL (3.2-5.5); Alkaline Phosphatase 72 IU/L (42-121); BUN Blood Urea Nitrogen 21 mg/dL (6-20); Bicarbonate 23 mEq/L (21-31); Bilirubin Total 1.7 mg/dL (0.3-1.2); Glucose Level 353 mg/dL (65-120); Magnesium 1.7 mg/dL (1.8-2.5); Protein, Total 5.6 g/dL (6.0-8.3); Sodium Level 138 mEq/L (135-145)
--- NOTE | 2017-11-11 09:49 | EKG ---
Test Date: 2017-11-10 Test Time: 19:03:22 Hydraulic Rubbish Compactor Mechanic: LUIS MIGUEL MEASUREMENT RESULTS: Intervals: Rate: 96 MD: 192 QRSD: 92 QT: 356 QTc: 449 [place]: P: 78 MD: 192 QRS: 52 T: 65 INTERPRETIVE STATEMENTS: Normal sinus rhythm Normal ECG Compared to ECG 11/04/2017 11:30:21 ST (T wave) deviation no longer present Electronically Signed On 11-11-17 09:49:04 CDT by Tristian Pabon
[2017-11-11 09:51] LABS: Hematocrit 24.3 % (39.6-49.0); MCH 26.7 pg (27.0-35.0); MCV 84.4 fL (80-100); MPV 8.3 fL (7.6-11.3); RBC Red Blood Cell Count 2.87 M/uL (4.33-5.43)
[2017-11-11 11:18] LABS: Platelet Estimate ADEQ
[2017-11-11 11:19] LABS: Blood Morphology Comment NOT SEEN (NOT SEEN)
[2017-11-11] MEDS ORDERED: MAGNESIUM SULFATE 1 gm IVPB 1 GM/100 ML BAG IV ONE (12:00)
[2017-11-11] MEDS: PANTOPRAZOLE INJ 80 MG in NA CHLORIDE 0.9% 250 ML IV SCH (14:30)
--- NOTE | 2017-11-11 15:41 | P.PN ---
Subjective Date of Service: 11/11/17 Chief Complaint: acute encephalopathy Patient seen and examined at bedside with RN. Case discussed with GI. Currently patient is doing well no complaints to offer. Status post 2 units of blood transfusion. Overall patient is doing well. Review of Systems 10-point ROS is otherwise unremarkable Physical Examination - Vital Signs Temperature: 99.0 F Blood Pressure: 138/63 Pulse: 86 Respirations: 16 Pulse Ox (%): 97 - Physical Exam General: Alert, In no apparent distress HEENT: Atraumatic, PERRLA, EOMI Neck: Supple, JVD not distended Respiratory: Clear to auscultation bilaterally, Normal air movement Cardiovascular: Regular rate/rhythm, Normal S1 S2 Gastrointestinal: Normal bowel sounds, No tenderness Musculoskeletal: No tenderness Integumentary: No rashes Neurological: Normal speech, Normal tone, Normal affect Lymphatics: No axilla or inguinal lymphadenopathy - Studies Laboratory Data (last 24 hrs) 11/11/17 09:05: Sodium 138, Potassium 4.0, BUN 21 H, Creatinine 0.69, Glucose 353 H, Magnesium 1.7 L, Total Bilirubin 1.7 H, AST 37, ALT 26, Alkaline Phosphatase 72 11/11/17 09:05: WBC 4.9 D, Hgb 7.7 L*, Hct 24.3 L D, Plt Count 132 L D 11/10/17 : Hgb 6.6 L*, Hct 20.4 L* 11/10/17 14:55: Sodium 134 L, Potassium 4.6, BUN 34 H, Creatinine 0.86, Glucose 518 H*, Total Bilirubin 1.5 H, AST 41, ALT 28, Alkaline Phosphatase 121 11/10/17 14:55: WBC 8.3 D, Hgb 7.0 L*, Hct 22.4 L D, Plt Count 187 D Medications List Reviewed: Yes Assessment & Plan - Problems (Diagnosis) (1) GI bleed Current Visit: Yes Status: Acute Plan: Pt with H/o GI bleed. Scope on 11/06/17 consistent with Gastritis and esophageal varices. -H/H 6.6 and now 7.6 after 2 units transfusion -IV protonix and Rifaxamin -No IV fluids due to CHF. -GI consulted. Awaiting Reccs. Qualifiers: GI bleed type/associated pathology: gastritis Gastritis type: chronic gastritis Qualified Code(s): K29.51 - Unspecified chronic gastritis with bleeding (2) Acute encephalopathy Onset Date: 11/11/17 Current Visit: Yes Status: Resolved Plan: Most Likely 2/2 to Hepatic cirrohsis -Rifaxamin ordered. Now AAOx 3 (3) COPD (chronic obstructive pulmonary disease) Onset Date: 11/05/17 Current Visit: Yes Status: Chronic Qualifiers: COPD type: COPD with acute exacerbation Qualified Code(s): J44.1 - Chronic obstructive pulmonary disease with (acute) exacerbation (4) CAD (coronary artery disease) Onset Date: 11/05/17 Current Visit: Yes Status: Chronic Qualifiers: Coronary Disease-Associated Artery/Lesion type: [place] artery [place] vs. transplanted heart: [place] heart Associated angina: without angina Qualified Code(s): I25.10 - Atherosclerotic heart disease of [place] coronary artery without angina pectoris (5) Cirrhosis of liver Onset Date: 11/05/17 Current Visit: Yes Status: Chronic Qualifiers: Hepatic cirrhosis type: alcoholic cirrhosis Ascites presence: without ascites Qualified Code(s): K70.30 - Alcoholic cirrhosis of liver without ascites (6) Diabetes mellitus Onset Date: 11/05/17 Current Visit: Yes Status: Chronic Qualifiers: Diabetes mellitus type: type 2 Diabetes mellitus retirement insulin use: without long term care administrator use Diabetes mellitus complication status: with other specified complication Qualified Code(s): E11.69 - Type 2 diabetes mellitus with other specified complication (7) Hypertension Onset Date: 11/05/17 Current Visit: Yes Status: Chronic Qualifiers: Hypertension type: essential hypertension Qualified Code(s): I10 - Essential (primary) hypertension (8) Gastric varices Current Visit: No Status: Chronic Discharge Plan: Home Plan to discharge in: 48 Hours - Code Status/Comfort Care Code Status Assessed: Yes Critical Care: No
[2017-11-11 16:15] LABS: Hematocrit 23.7 % (39.6-49.0)
[2017-11-11] MEDS: OCTREOTIDE 500 MCG in NA CHLORIDE 0.9% 500 ML IV SCH (17:13)
--- NOTE | 2017-11-11 18:43 | CON ---
Date of Consultation: 11/11/2017 Reason For Consultation: Confusion. History Of Present Illness: Mr. Lucio is a 77-year-old gentleman with anemia supposed to be GI bl eeding. Last week EGD was done by Dr. Russell and angiodysplasia was found in duodenum that was cau terized. However, the patient was brought here in the hospital with history of confusion [facility]. At this time, patient has woke up. He states that he is feeling better; however, still somnolent. There is no history of hematemesis, melena, or hematochezia. No odynophag ia, dysphagia. Past Medical History: Unchanged. Past Surgical History: Unchanged. Family History: Unchanged. Social History: Unchanged. Review of Systems: Unchanged other than above. Physical Examination: General: Elderly male, still somnolent. No hemodynamic respiratory profile within normal range. HEENT: Atraumatic, normocephalic. Slight icterus noted. Trachea central in position. Chest: Clear to auscultation and percussion. Cardiovascular: Normal S1, S2. No S3, no S4. Abdomen: Soft, nontender, nondistended. Bowel sounds present. Neurologic: Alert and oriented x3. Some asterixis; however, no flap noted. Diagnostic Data: Reviewed and analyzed. Of importance, hemoglobin and hematocrit 02/14 respectively Impression/plan/recommendations: Mr. Silva is a 77-year-old gentleman with alcoholic cirrhosis, h as small varices bleeding angiodysplasia that has been cauterized. At this time he presents with hep atic encephalopathy. Reason for hepatic encephalopathy could be decomposition of the liver, also I d o not know whether he started his alcohol or not. However, internal GI bleeding is also possibility in this case. Admit to the hospital. Follow hemoglobin, hematocrit serially; transfuse as needed an d I will also start Xifaxan as his antibiotic against hepatic encephalopathy. Future clinical course will depend upon above. We will follow him along with you. AUNDREA/ELISE Voice ID: [id number] Report ID: [id number]
[2017-11-11 19:57] LABS: Hematocrit 22.9 % (39.6-49.0)
[2017-11-11] MEDS: Rifaximin 550 MG Tab PO SCH (20:55)
[2017-11-11] MEDS: CARVEDILOL 3.125 MG TAB PO SCH (20:55)
[2017-11-11] MEDS: ATORVASTATIN 20 MG TAB PO SCH (20:55)
--- NOTE | 2017-11-11 21:43 | CON ---
Reason For Consult: Cardiac clearance before endoscopy. History Of Present Illness: Mr. Lucio has diabetes. He has remote history of smoking, but never had any heart trouble. He is not having any cardiac symptoms. He is in the hospital because of GI b leeding. He has required some transfusions. He has had an endoscopy as recently as 06 of November, 5 days ago, and there were no cardiac complications that we saw. His lowest hemoglobin that I have se en is 6.6 and he has had transfusions and other hemoglobins are pending. At that time, he had his ot her endoscopy. It was believed that they had control of the bleeding, but bleeding has proceeded non etheless since that time. Apparently went home and then came back yesterday. He has an EKG that is normal and echocardiogram that reveals mild aortic sclerosis. Denies chest pain, so in every way I t hink his heart is stable enough to go through an endoscopy. I do not see the need for doing any othe r cardiac workup at this time. Having his hemoglobin close to 10 of course would make all procedure much more safe. I think it is likely he will be close to 10 by tomorrow morning if he gets the trans fusions that are already ordered. PAPO/ELISE Voice ID: [id number] Report ID: [id number]
[2017-11-11 23:39] LABS: Hematocrit 22.2 % (39.6-49.0)
[2017-11-12] MEDS ORDERED: NA CHLORIDE 0.9% 250 ML ONE (00:51)
[2017-11-12] MEDS: PANTOPRAZOLE INJ 80 MG in NA CHLORIDE 0.9% 250 ML IV SCH ×3 (01:02→17:16)
[2017-11-12] MEDS: OCTREOTIDE 500 MCG in NA CHLORIDE 0.9% 500 ML IV SCH ×2 (01:02→12:00)
[2017-11-12] MEDS: NA CHLORIDE 0.9% 1,000 ML IV SCH ×2 (04:17→14:17)
[2017-11-12 06:12] LABS: Hematocrit 26.2 % (39.6-49.0)
[2017-11-12 06:19] LABS: BUN Blood Urea Nitrogen 14 mg/dL (6-20); Bicarbonate 23 mEq/L (21-31); Glucose Level 247 mg/dL (65-120); Magnesium 1.7 mg/dL (1.8-2.5); Potassium 4.1 mEq/L (3.6-5.0); Sodium Level 138 mEq/L (135-145)
[2017-11-12] MEDS: INSULIN -REGULAR HUMAN 50 UNIT/0.5 ML ML SQ SCH ×4 (08:55→21:43)
[2017-11-12] MEDS: CARVEDILOL 3.125 MG TAB PO SCH ×2 (08:56→21:42)
[2017-11-12] MEDS: Rifaximin 550 MG Tab PO SCH ×2 (08:56→21:42)
[2017-11-12] MEDS: SPIRONOLACTONE 25 MG TABLET PO SCH (08:56)
[2017-11-12] MEDS: FUROSEMIDE 40 MG TABLET PO SCH (08:57)
[2017-11-12] MEDS: TAMSULOSIN 0.4 MG SR CAP PO SCH (08:57)
[2017-11-12] MEDS ORDERED: NA CHLORIDE 0.9% 1,000 ML ONE (12:30)
--- NOTE | 2017-11-12 14:17 | P.PN ---
Subjective Date of Service: 11/12/17 Chief Complaint: acute encephalopathy Patient seen and examined at bedside with RN. Case discussed with GI. Currently patient is doing well no complaints to offer. Status post 2 units of blood transfusion. Awaiting EGD today. Review of Systems General: As per HPI Physical Examination - Vital Signs Temperature: 97.3 F Blood Pressure: 167/56 Pulse: 69 Respirations: 16 Pulse Ox (%): 96 - Physical Exam General: Alert, In no apparent distress, Oriented x3 HEENT: Atraumatic Neck: Supple Respiratory: Clear to auscultation bilaterally, Normal air movement Cardiovascular: Regular rate/rhythm, Normal S1 S2 Gastrointestinal: Normal bowel sounds, No tenderness Musculoskeletal: No tenderness Integumentary: No rashes Neurological: Normal speech, Normal tone, Normal affect Lymphatics: No axilla or inguinal lymphadenopathy - Studies Medications List Reviewed: Yes Assessment & Plan - Problems (Diagnosis) (1) GI bleed Current Visit: Yes Status: Acute Plan: Pt with H/o GI bleed. Scope on 11/06/17 consistent with Gastritis and esophageal varices. -H/H 6.6 which increased to 7.6 after 2 units transfusion and then up to 8.0 overnight. -IV protonix and Rifaxamin -No IV fluids due to CHF. -GI consulted. Pending EGD today. Qualifiers: GI bleed type/associated pathology: gastritis Gastritis type: chronic gastritis Qualified Code(s): K29.51 - Unspecified chronic gastritis with bleeding (2) Acute encephalopathy Onset Date: 11/11/17 Current Visit: Yes Status: Resolved Plan: Most Likely 2/2 to Hepatic cirrohsis -Rifaxamin ordered. Now AAOx 3 (3) COPD (chronic obstructive pulmonary disease) Onset Date: 11/05/17 Current Visit: Yes Status: Chronic Qualifiers: COPD type: COPD with acute exacerbation Qualified Code(s): J44.1 - Chronic obstructive pulmonary disease with (acute) exacerbation (4) CAD (coronary artery disease) Onset Date: 11/05/17 Current Visit: Yes Status: Chronic Qualifiers: Coronary Disease-Associated Artery/Lesion type: [place] artery [place] vs. transplanted heart: [place] heart Associated angina: without angina Qualified Code(s): I25.10 - Atherosclerotic heart disease of [place] coronary artery without angina pectoris (5) Cirrhosis of liver Onset Date: 11/05/17 Current Visit: Yes Status: Chronic Qualifiers: Hepatic cirrhosis type: alcoholic cirrhosis Ascites presence: without ascites Qualified Code(s): K70.30 - Alcoholic cirrhosis of liver without ascites (6) Diabetes mellitus Onset Date: 11/05/17 Current Visit: Yes Status: Chronic Qualifiers: Diabetes mellitus type: type 2 Diabetes mellitus long distance operator insulin use: without long distance operator use Diabetes mellitus complication status: with other specified complication Qualified Code(s): E11.69 - Type 2 diabetes mellitus with other specified complication (7) Hypertension Onset Date: 11/05/17 Current Visit: Yes Status: Chronic Qualifiers: Hypertension type: essential hypertension Qualified Code(s): I10 - Essential (primary) hypertension (8) Gastric varices Current Visit: No Status: Chronic (9) UTI (urinary tract infection) Current Visit: No Status: Acute Plan: Will start Amoxicillin at this time Qualifiers: Urinary tract infection type: site unspecified Hematuria presence: without hematuria Qualified Code(s): N39.0 - Urinary tract infection, site not specified
[2017-11-12] MEDS ORDERED: LIDOCAINE 1% MPF 5 ML VIAL ONE (14:44)
[2017-11-12] MEDS ORDERED: PROPOFOL 200 MG/20 ML VIAL IV ONE ×2 (14:44)
[2017-11-12] MEDS ORDERED: D50W 25 GM/50 ML SYRINGE IV PRN (14:58)
[2017-11-12] MEDS ORDERED: GLUCAGON 1 MG/VIAL IM PRN (14:58)
--- NOTE | 2017-11-12 15:22 | PN ---
Date of Progress Note: 11/12/2017 Subjective: Mental status has improved. His hemoglobin today is 8.4. No source of bleeding has bee n identified yet. The patient does not need any further cardiac workup. He had a negative cardiac w orkup the last visit he was here. It would be good to try to get his hemoglobin about 10. I think t hat it will improve his overall symptoms and mental status. We will be happy to see him as an outpat ient. No further recommendation from our standpoint. MELITON/ELISE Voice ID: [id number] Report ID: [id number]
[2017-11-12] MEDS: AMOX/K CLAV 500 MG TAB PO SCH (21:42)
[2017-11-12] MEDS: ATORVASTATIN 20 MG TAB PO SCH (21:42)
[2017-11-13] MEDS: OCTREOTIDE 500 MCG in NA CHLORIDE 0.9% 500 ML IV SCH (00:51)
[2017-11-13] MEDS: NA CHLORIDE 0.9% 1,000 ML IV SCH (00:51)
[2017-11-13] MEDS: PANTOPRAZOLE INJ 80 MG in NA CHLORIDE 0.9% 250 ML IV SCH ×2 (00:52→03:55)
--- NOTE | 2017-11-13 02:24 | OP ---
Date of Procedure: 11/12/2017 Surgeon: Chiqui Carolina MD Procedure Performed: Esophagogastroduodenoscopy. Indication: Anemia, melena, and history of cirrhosis. Premedication: Per Anesthesia. Complexity: Moderate. Tolerance To Sedation: Excellent. Procedure In Detail: The procedure, possible complications, and alternatives were explained to the p atient. Informed consent was obtained. Esophageal mucosa proximal and mid aspect appeared to be wit hin normal range. No varices noted as opposed to previous report in the past. EG junction had mild stenosis that could be easily passed. Small hiatal hernia was noted. Diffuse gastritis versus kacey l hypertensive gastropathy of mild variety was noted. Duodenal bulb, duodenal angle, and duodenal pa rt 2 appeared to be free of bleeding. In duodenal part 2, the evidence of previous ablation was note d. Nowhere in this procedure, any bleeding, tear, or perforation was noted. Having done the above proce dure in a safe, diligent, and satisfactory manner, endoscope and rest of the endoscopic accessories w ere removed. The patient's oropharyngeal area was cleaned out in a respectful manner. The patient h as been sent in excellent condition to postoperative recovery, from there to the floor. Impression: Esophageal stenosis, small hiatal hernia, evidence of past angiodysplasia that has been ablated, mild portal hypertensive gastropathy. Plan: Restart diet. H and H could be due to hemodilution. However, if it is further dropped or any evidence of active or passive bleeding, call us back. AUNDREA/ELISE Voice ID: [id number] Report ID: [id number]
[2017-11-13] MEDS: INSULIN -REGULAR HUMAN 50 UNIT/0.5 ML ML SQ SCH ×4 (08:42→21:09)
[2017-11-13] MEDS: AMOX/K CLAV 500 MG TAB PO SCH ×2 (08:43→21:08)
[2017-11-13] MEDS: CARVEDILOL 3.125 MG TAB PO SCH ×2 (08:43→21:08)
[2017-11-13] MEDS: SPIRONOLACTONE 25 MG TABLET PO SCH (08:43)
[2017-11-13] MEDS: TAMSULOSIN 0.4 MG SR CAP PO SCH (08:43)
[2017-11-13] MEDS: Rifaximin 550 MG Tab PO SCH ×2 (08:43→21:08)
[2017-11-13] MEDS: FUROSEMIDE 40 MG TABLET PO SCH (08:43)
[2017-11-13 09:13] LABS: Absolute Lymphocytes (CBC) 1.1 K/uL (0.7-4.9); Absolute Monocytes 0.7 K/uL (0.1-1.3); Absolute Neutrophil 1.5 K/uL (1.8-8.0); Basophils % 0.2 % (0-1.3); Eosinophils % 2.3 % (0-4.4); Hematocrit 25.7 % (39.6-49.0); Lymphocytes % 32.4 % (15.3-44.8); MCH 27.2 pg (27.0-35.0); MPV 8.5 fL (7.6-11.3); Monocytes % 20.9 % (3.3-12.3); RBC Red Blood Cell Count 3.03 M/uL (4.33-5.43)
[2017-11-13 09:55] LABS: Blood Morphology Comment NOT SEEN (NOT SEEN); Platelet Estimate DECR
--- NOTE | 2017-11-13 09:58 | P.PN ---
Subjective Date of Service: 11/13/17 Chief Complaint: acute encephalopathy Patient seen and examined at bedside with RN. Case discussed with GI. Currently patient is doing well no complaints to offer. Status post 2 units of blood transfusion. EGD with no evidence of bleeding. Review of Systems 10-point ROS is otherwise unremarkable Physical Examination - Vital Signs Temperature: 97.5 F Blood Pressure: 179/77 Pulse: 71 Respirations: 16 Pulse Ox (%): 97 - Physical Exam General: Alert, In no apparent distress, Oriented x3 HEENT: Atraumatic, PERRLA, EOMI Neck: Supple, JVD not distended Respiratory: Clear to auscultation bilaterally, Normal air movement Cardiovascular: Regular rate/rhythm, Normal S1 S2 Gastrointestinal: Normal bowel sounds, No tenderness Musculoskeletal: No tenderness Integumentary: No rashes Neurological: Normal speech, Normal tone, Normal affect Lymphatics: No axilla or inguinal lymphadenopathy - Studies Microbiology Data (last 24 hrs): 11/10/17 15:20 Clean Catch Urine [place] Count - Final >100,000 CFU/ML. 11/10/17 15:20 Clean Catch Urine - Final Enterococcus Faecalis Medications List Reviewed: Yes Assessment & Plan - Problems (Diagnosis) (1) GI bleed Current Visit: Yes Status: Acute Plan: Pt with H/o GI bleed. Scope on 11/06/17 consistent with Gastritis and esophageal varices. -H/H 6.6 which increased to 7.6 after 2 units transfusion and then up to 8.0 overnight. Today is 8.2 -S/P EGD with GI. No new evidence of bleeding. -GI consulted. Appreciated Reccs. -PO protonix now. -DC and[place] to [place]. Has been accepted at [facility] for DC andrea. Qualifiers: GI bleed type/associated pathology: gastritis Gastritis type: chronic gastritis Qualified Code(s): K29.51 - Unspecified chronic gastritis with bleeding (2) Acute encephalopathy Onset Date: 11/11/17 Current Visit: Yes Status: Resolved Plan: Most Likely 2/2 to Hepatic cirrohsis -Rifaxamin ordered. Now AAOx 3 (3) COPD (chronic obstructive pulmonary disease) Onset Date: 11/05/17 Current Visit: Yes Status: Chronic Qualifiers: COPD type: COPD with acute exacerbation Qualified Code(s): J44.1 - Chronic obstructive pulmonary disease with (acute) exacerbation (4) CAD (coronary artery disease) Onset Date: 11/05/17 Current Visit: Yes Status: Chronic Qualifiers: Coronary Disease-Associated Artery/Lesion type: [place] artery [place] vs. 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 use Diabetes mellitus complication status: with other specified complication Qualified Code(s): E11.69 - Type 2 diabetes mellitus with other specified complication (7) Hypertension Onset Date: 11/05/17 Current Visit: Yes Status: Chronic Qualifiers: Hypertension type: essential hypertension Qualified Code(s): I10 - Essential (primary) hypertension (8) Gastric varices Current Visit: No Status: Chronic (9) UTI (urinary tract infection) Current Visit: No Status: Acute Plan: urine culture + for enterococus -On Augmentin at this time Qualifiers: Urinary tract infection type: site unspecified Hematuria presence: without hematuria Qualified Code(s): N39.0 - Urinary tract infection, site not specified Discharge Plan: Penitentiary (Has been accepted at [facility] for [place] andreaKristen) - Code Status/Comfort Care Code Status Assessed: Yes Critical Care: No
[2017-11-13] MEDS: PANTOPRAZOLE 40MG TABLET PO SCH (17:03)
[2017-11-13] MEDS: ATORVASTATIN 20 MG TAB PO SCH (21:08)
[2017-11-13 21:18] VITALS: O2SAT 93
[2017-11-14 05:26] LABS: Absolute Lymphocytes (CBC) 1.4 K/uL (0.7-4.9); Absolute Monocytes 0.8 K/uL (0.1-1.3); Absolute Neutrophil 1.5 K/uL (1.8-8.0); Basophils % 0.4 % (0-1.3); Eosinophils % 2.8 % (0-4.4); Hematocrit 25.1 % (39.6-49.0); Lymphocytes % 36.3 % (15.3-44.8); MCH 27.6 pg (27.0-35.0); MCV 83.1 fL (80-100); RBC Red Blood Cell Count 3.02 M/uL (4.33-5.43)
[2017-11-14 05:30] LABS: Monocytes % 21.1 % (3.3-12.3)
[2017-11-14 06:03] LABS: ALT/SGPT 22 IU/L (10-60); AST/SGOT 36 IU/L (10-42); Albumin 2.2 g/dL (3.2-5.5); Alkaline Phosphatase 62 IU/L (42-121); BUN Blood Urea Nitrogen 6 mg/dL (6-20); Bicarbonate 27 mEq/L (21-31); Bilirubin Total 1.5 mg/dL (0.3-1.2); Glucose Level 201 mg/dL (65-120); Potassium 3.1 mEq/L (3.6-5.0); Protein, Total 5.5 g/dL (6.0-8.3); Sodium Level 134 mEq/L (135-145)
[2017-11-14 06:05] LABS: Magnesium 1.4 mg/dL (1.8-2.5)
[2017-11-14] MEDS ORDERED: Magnesium Sulfate 2gm IVPB 2 G/50 ML BAG IV ONE (06:11)
[2017-11-14] MEDS ORDERED: POTASSIUM 25 MEQ EFFERV TAB PO ONE (06:11)
[2017-11-14] MEDS: PANTOPRAZOLE 40MG TABLET PO SCH (06:35)
[2017-11-14] MEDS: INSULIN -REGULAR HUMAN 50 UNIT/0.5 ML ML SQ SCH ×2 (07:47→12:08)
[2017-11-14] MEDS: TAMSULOSIN 0.4 MG SR CAP PO SCH (07:48)
[2017-11-14] MEDS: Rifaximin 550 MG Tab PO SCH (07:48)
[2017-11-14] MEDS: CARVEDILOL 3.125 MG TAB PO SCH (07:48)
[2017-11-14] MEDS: SPIRONOLACTONE 25 MG TABLET PO SCH (07:48)
[2017-11-14] MEDS: AMOX/K CLAV 500 MG TAB PO SCH (07:48)
[2017-11-14] MEDS: FUROSEMIDE 40 MG TABLET PO SCH (07:49)
[2017-11-14 14:39] VITALS: BP 135/60; TEMP 97.7
--- NOTE | 2017-11-15 10:19 | DS ---
Date of Discharge: 11/14/2017 Discharge Diagnoses: 1.Gastrointestinal bleed, resolved. 2.Anemia secondary to gastrointestinal bleed. 3.Acute encephalopathy secondary to cirrhosis versus urinary tract infection. 4.Chronic obstructive pulmonary disease. 5. . 6.Diabetes mellitus. 7.Hypertension. 8.Gastric varices. 9.Urinary tract infection. Consult: Dr. Carolina from GI. Procedure: Brain CT done on the day of admission was negative. For history of present illness, please refer to Dr. Rjoas's admission note. Hospital Course: Initially, the patient was brought by his neighbor due to progressive confusion. I n the ER, he was found to have severe anemia with hemoglobin of 7 and the glucose of 500. He was adm itted. A CAT scan of the head was negative. Given his liver cirrhosis, GI consult requested and Dr. Carolina proceeded with endoscopy and that showed esophageal stenosis, small hiatal hernia with evidence of past angiodysplasia that was ablated with mild portal hypertensive gastropathy. GI advised to re start diet and follow H and H and make sure it is stable before discharge. The patient's hemoglobin has been stable around 8.2 to 8.3. Since transfusion on November 12, he did not have any hemoptysis, he matemesis, or black stool. Dr. Diaz wants to discharge him back to the correction today for the first time where the patient got accepted in [facility]. We will continue the patient on Protonix 40 m g twice a day. In light of his encephalopathy resolved, could be secondary to UTI, which was positiv e for enterococcus. The patient will be continued on Augmentin for the next 7 days at the [facility]. I will check his ammonia level as well. The patient was also started on rifaximin 550 given his liver cirrhosis. He needs to follow up with Dr. Carolina in the office to titrate his medications. Discharge Condition: Stable. Discharge Diet: Cardiac/diabetic 1800. Discharge Condition: Stable. Discharge Followup: With Dr. Carolina in 1 to 2 weeks for his liver cirrhosis. prison to make an appointment. Follow up with his primary care physician in 1 week with CBC to make sure the patient i s stable. Discharge Medications: one tablet twice a day for 7 days, Coreg 3.125 twice a day, Lasix 40 mg once a day, inhaler Dulera 2 puffs twice a day, Protonix 40 mg orally twice a day, rifaximin 55 0 mg twice a day, Zocor 40 mg only once a day, Aldactone 25 mg once a day, Flomax 0.4 mg only once a day. Physical Examination: Vital Signs: Blood pressure is 143/65, respiratory rate 18, pulse 68, temperature 97.8. General: He is fully alert, oriented x3. Does not look in any distress. HEENT: Atraumatic, normocephalic. PERRLA. Oral mucosa is moist. Neck: Supple. No JVD. No carotid bruits. Chest: Clear to auscultation. Good air entry. Heart: Regular rate and rhythm. S1, S2 normal. No gallop or murmur. Abdomen: Soft, nontender. No masses. No hepatosplenomegaly. Positive bowel sounds. Extremities: No clubbing, cyanosis, or edema. No calf tenderness. ZINA/ELISE Voice ID: [id number] Report ID: [id number]
== END 2017-11-14 13:24 | DRG 432 ==
LOC: EDBD → ER 14:37 → ERHOLD 19:19 → INTOOBSV 19:19 → 2ND 21:47 → OBSVTOIN 11-11 11:29
PROVIDERS: ADMIT Internal Medicine; ATTEND Internal Medicine
PROC: 0DJ08ZZ Inspection of Upper Intestinal Tract, Via Natural or Artificial Opening Endoscopic (ICD-10-PCS; principal; 2017-11-12 10:45)
DX: K70.30 Alcoholic cirrhosis of liver without ascites (principal); G93.40 Encephalopathy, unspecified; K29.51 Unspecified chronic gastritis with bleeding; N39.0 Urinary tract infection, site not specified; J44.1 Chronic obstructive pulmonary disease with (acute) exacerbation; K76.6 Portal hypertension; I85.10 Secondary esophageal varices without bleeding; K22.2 Esophageal obstruction; K44.9 Diaphragmatic hernia without obstruction or gangrene; K31.89 Other diseases of stomach and duodenum; D50.0 Iron deficiency anemia secondary to blood loss (chronic); E11.9 Type 2 diabetes mellitus without complications; I25.10 Atherosclerotic heart disease of native coronary artery without angina pectoris; I10 Essential (primary) hypertension; I70.0 Atherosclerosis of aorta; Z87.891 Personal history of nicotine dependence
CPT/HCPCS: 36415; 51702; 70450; 71045; 80048; 80053; 81003; 81015; 82140; 82805; 82962; 83735; 85014; 85018; 85025; 86850; 86900; 86901; 87077; 87086; 87088; 87186; 93005; 96365; 96366; 96372; 96375; 97163; 99285; C9113; J1650; J2354; J2543; J3370; J3475; J7030; P9016

== ENCOUNTER 2017-11-30 13:21 | Observation (INO) | payer OTHER ==
[2017-11-30 14:13] LABS: Absolute Lymphocytes (CBC) 1.7 K/uL (0.7-4.9); Absolute Monocytes 0.9 K/uL (0.1-1.3); Absolute Neutrophil 2.3 K/uL (1.8-8.0); Basophils % 0.4 % (0-1.3); Eosinophils % 3.4 % (0-4.4); Hematocrit 22.9 % (39.6-49.0); Lymphocytes % 32.9 % (15.3-44.8); MCH 25.5 pg (27.0-35.0); MCV 82.4 fL (80-100); MPV 9.5 fL (7.6-11.3); Monocytes % 17.3 % (3.3-12.3); RBC Red Blood Cell Count 2.78 M/uL (4.33-5.43)
[2017-11-30 14:27] LABS: BUN Blood Urea Nitrogen 9 mg/dL (6-20); Bicarbonate 23 mEq/L (21-31); Glucose Level 277 mg/dL (65-120); Potassium 3.6 mEq/L (3.6-5.0); Sodium Level 136 mEq/L (135-145)
--- NOTE | 2017-11-30 14:47 | ER ---
Nurse's Notes [facility] Name: Jean Lucio III Age: 77 yrs Sex: Male : 1940 Arrival Date: 11/30/2017 Time: 13:24 Bed 26 Private MD: Diagnosis: Anemia in chronic diseases classified elsewhere;Iron deficiency anemia secondary to blood loss (chronic) Presentation: 11/30 13:25 Transition of care: patient was not received from another setting of care. Onset of la1 symptoms was November 30, 2017. Initial Sepsis Screen: Does the patient meet any 2 criteria? No. Patient's initial sepsis screen is negative. Does the patient have a suspected source of infection? No. Patient's initial sepsis screen is negative. Care prior to arrival: None. 13:25 Method Of Arrival: EMS: [facility] la1 13:25 Acuity: RITA 3 la1 13:26 Presenting complaint: EMS states: Sent for low H\T\H, dont know the numbers. VSS. Pt la1 alert, oriented x4. Historical: - Allergies: 13:27 No Known Allergies; la1 - Home Meds: 15:42 simvastatin 20 mg oral tab 1 tab once daily [Active]; tamsulosin 0.4 mg Oral cp24 1 cap rk2 once daily [Active]; Lasix 40 mg Oral tab 1 tab once daily [Active]; spironolactone 25 mg Oral tab 1 tab once daily [Active]; carvedilol 3.125 mg Oral tab 1 tab 2 times per day [Active]; dulera [Active]; pantoprazole 40 mg oral TbEC 1 tab 2 times per day [Active]; Colace 100 mg oral cap 1 cap 2 times per day [Active]; Levemir [Active]; neomycin 500 mg Oral tab 3 times per day [Active]; Novolog [Active]; - PMHx: 13:27 Anemia; COPD; diagnosed with cancer at [place], did not seek treatment; Hyperlipidemia; la1 Hypertension; Myocardial infarction; - Immunization history:: Adult Immunizations up to date. - Social history:: Smoking status: Patient uses tobacco products, smokes one-half pack cigarettes per day. Screenin:48 Abuse screen: Denies threats or abuse. Nutritional screening: No deficits noted. la1 Tuberculosis screening: No symptoms or risk factors identified. Fall Risk None identified. Assessment: 14:47 General: Appears in no apparent distress. Behavior is calm, cooperative. Pain: Denies la1 pain. Neuro: Level of Consciousness is awake, alert, obeys commands, Oriented to person, place, time, situation. Cardiovascular: Capillary refill < 3 seconds Patient's skin is warm and dry. Respiratory: Airway is patent Respiratory effort is even, unlabored, Respiratory pattern is regular, symmetrical, Breath sounds are clear bilaterally. GI: Reports bloody stool, 1 week ago. : No signs and/or symptoms were reported regarding the genitourinary system. 15:30 Reassessment: No changes from previously documented assessment. Patient and/or family rk2 updated on plan of care and expected duration. Pain level reassessed. No needs voiced \T\ this time. 16:20 Reassessment: Called report to [facility], pt. to be transported to room 405. rk2 Vital Signs: 13:25 BP 151 / 55; Pulse 79; Resp 19; Temp 98.7(O); Pulse Ox 100% on R/A; Weight 79.38 kg; la1 Height 6 ft. 0 in. (182.88 cm); 15:00 BP 124 / 62; Pulse 73; Resp 18; Pulse Ox 100% on R/A; rk2 16:00 BP 134 / 49; Pulse 74; Resp 17; Pulse Ox 100% on R/A; rk2 13:25 Body Mass Index 23.73 (79.38 kg, 182.88 cm) la1 ED Course: 13:24 Patient arrived in ED. la1 13:25 Triage completed. la1 13:25 Arm band placed on right wrist. la1 13:26 Sean Michaud MD is Attending Physician. gs 13:46 Estevan Clay, RN is Primary Nurse. la1 14:46 Phani Garcia DO is Hospitalizing Provider. gs 14:48 Bed in low position. Call light in reach. Side rails up X 1. security monitor on. Pulse la1 ox on. NIBP on. 14:48 No provider procedures requiring assistance completed. Inserted saline lock: 20 gauge la1 in right antecubital area, using aseptic technique. Blood collected. 16:39 Patient admitted, IV remains in place. rk2 Administered Medications: No medications were administered Outcome: 14:47 Decision to Hospitalize by Provider. 16:38 Admitted to Med/surg accompanied by tech, via wheelchair. rk2 16:38 Condition: good 16:38 Instructed on the need for admit. 16:41 Patient left the ED. rk2 Signatures: Estevan Clay, RN RN la1 Sean Michaud MD MD gs Kidder, Rhonda, RN RN rk2
--- NOTE | 2017-11-30 14:47 | EDPHYS ---
Physician Documentation [facility] Name: Jean Lucio III Age: 77 yrs Sex: Male : 1940 Arrival Date: 11/30/2017 Time: 13:24 Bed 26 Private MD: ED Physician Sean Michaud HPI: 11/30 15:10 This 77 yrs old Male presents to ER via EMS with complaints of Abnormal Lab gs Results. 15:10 The patient presents to the emergency department with weakness of the entire body, gs generalized weakness. Associated signs and symptoms: Pertinent positives: had some melena and rectal bleeding stopped a week ago, Pertinent negatives: altered mental status. Severity of symptoms: At their worst the symptoms were moderate in the emergency department the symptoms are unchanged. The patient has experienced similar episodes in the past, a few times. The patient has been recently been admitted at [facility], was discharged last month. Historical: - Allergies: 13:27 No Known Allergies; la1 - Home Meds: 15:42 simvastatin 20 mg oral tab 1 tab once daily [Active]; tamsulosin 0.4 mg Oral cp24 1 cap rk2 once daily [Active]; Lasix 40 mg Oral tab 1 tab once daily [Active]; spironolactone 25 mg Oral tab 1 tab once daily [Active]; carvedilol 3.125 mg Oral tab 1 tab 2 times per day [Active]; dulera [Active]; pantoprazole 40 mg oral TbEC 1 tab 2 times per day [Active]; Colace 100 mg oral cap 1 cap 2 times per day [Active]; Levemir [Active]; neomycin 500 mg Oral tab 3 times per day [Active]; Novolog [Active]; - PMHx: 13:27 Anemia; COPD; diagnosed with cancer at [place], did not seek treatment; Hyperlipidemia; la1 Hypertension; Myocardial infarction; - Immunization history:: Adult Immunizations up to date. - Social history:: Smoking status: Patient uses tobacco products, smokes one-half pack cigarettes per day. ROS: 15:10 All other systems are negative. gs Exam: 15:10 Head/Face: Normocephalic, atraumatic. Eyes: Pupils equal round and reactive to light, gs extra-ocular motions intact. Lids and lashes normal. Conjunctiva and sclera are non-icteric and not injected. Cornea within normal limits. Periorbital areas with no swelling, redness, or edema. ENT: Nares patent. No nasal discharge, no septal abnormalities noted. Tympanic membranes are normal and external auditory canals are clear. Oropharynx with no redness, swelling, or masses, exudates, or evidence of obstruction, uvula midline. Mucous membranes moist. Neck: Trachea midline, no thyromegaly or masses palpated, and no cervical lymphadenopathy. Supple, full range of motion without nuchal rigidity, or vertebral point tenderness. No Meningismus. Chest/axilla: Normal chest wall appearance and motion. Nontender with no deformity. No lesions are appreciated. Cardiovascular: Regular rate and rhythm with a normal S1 and S2. No gallops, murmurs, or rubs. Normal PMI, no JVD. No pulse deficits. Respiratory: Lungs have equal breath sounds bilaterally, clear to auscultation and percussion. No rales, rhonchi or wheezes noted. No increased work of breathing, no retractions or nasal flaring. Abdomen/GI: Soft, non-tender, with normal bowel sounds. No distension or tympany. No guarding or rebound. No evidence of tenderness throughout. Back: No spinal tenderness. No costovertebral tenderness. Full range of motion. Skin: Warm, dry with normal turgor. Normal color with no rashes, no lesions, and no evidence of cellulitis. MS/ Extremity: Pulses equal, no cyanosis. Neurovascular intact. Full, normal range of motion. Neuro: Awake and alert, GCS 15, oriented to person, place, time, and situation. Cranial nerves II-XII grossly intact. Motor strength 5/5 in all extremities. Sensory grossly intact. Cerebellar exam normal. Normal gait. 15:10 Constitutional: The patient appears alert, awake, pale. Vital Signs: 13:25 BP 151 / 55; Pulse 79; Resp 19; Temp 98.7(O); Pulse Ox 100% on R/A; Weight 79.38 kg; la1 Height 6 ft. 0 in. (182.88 cm); 15:00 BP 124 / 62; Pulse 73; Resp 18; Pulse Ox 100% on R/A; rk2 16:00 BP 134 / 49; Pulse 74; Resp 17; Pulse Ox 100% on R/A; rk2 13:25 Body Mass Index 23.73 (79.38 kg, 182.88 cm) la1 MDM: 13:43 Patient medically screened. 15:10 Data reviewed: vital signs, nurses notes, and as a result, I will admit patient. 11/30 13:44 Order name: CBC with Diff; Complete Time: 15:10 11/30 13:44 Order name: Basic Metabolic Panel; Complete Time: 15:10 11/30 13:44 Order name: Type And Screen 11/30 14:59 Order name: CONS Physician Consult EDMS Administered Medications: No medications were administered Disposition: 11/30/17 14:47 Hospitalization ordered by Phani Garcia for Inpatient Admission. Preliminary diagnosis are Anemia in chronic diseases classified elsewhere, Iron deficiency anemia secondary to blood loss (chronic). - Bed requested for Telemetry/MedSurg (observation). - Status is Inpatient Admission. rk2 - Condition is Stable. - Problem is an ongoing problem. - Symptoms are unchanged. UTI on Admission? No Signatures: Dispatcher [employer] [facility] Tianna Carlson Lee, RN RN la1 Sean Michaud MD MD Brittney Kumar RN RN rk2 Corrections: (The following items were deleted from the chart) 15:28 14:47 Hospitalization Ordered by Phani Garcia DO for Inpatient Admission. Preliminary bd diagnosis is Anemia in chronic diseases classified elsewhere; Iron deficiency anemia secondary to blood loss (chronic). Bed requested for Telemetry/MedSurg (observation). Status is Inpatient Admission. Condition is Stable. Problem is an ongoing problem. Symptoms are unchanged. UTI on Admission? No. gs 16:41 15:28 11/30/2017 14:47 Hospitalization Ordered by Phani Garcia DO for Inpatient rk2 Admission. Preliminary diagnosis is Anemia in chronic diseases classified elsewhere; Iron deficiency anemia secondary to blood loss (chronic). Bed requested for Telemetry/MedSurg (observation). Status is Inpatient Admission. Condition is Stable. Problem is an ongoing problem. Symptoms are unchanged. UTI on Admission? No. bd
[2017-11-30] MEDS ORDERED: LACTULOSE 20 GM/30 ML UCUP PO PRN (16:42)
[2017-11-30] MEDS ORDERED: ACETAMINOPHEN 500 MG TAB PO PRN (16:42)
[2017-11-30] MEDS ORDERED: ONDANSETRON 4 MG/2 ML VIAL IV PRN (16:42)
[2017-11-30 17:23] VITALS: BMI 23.7
[2017-11-30] MEDS ORDERED: POTASSIUM 25 MEQ EFFERV TAB PO ONE (17:25)
[2017-11-30] MEDS: PANTOPRAZOLE INJ 80 MG in NA CHLORIDE 0.9% 250 ML IV SCH (17:57)
[2017-11-30] MEDS: INSULIN -REGULAR HUMAN 50 UNIT/0.5 ML ML SQ SCH ×2 (17:58→21:09)
[2017-11-30] MEDS ORDERED: CEFTRIAXONE/SWI 1gm 1 GM/10 ML SYR IV SCH (18:00)
--- NOTE | 2017-11-30 18:10 | P.HP ---
Certification for Inpatient Patient admitted to: Inpatient With expected LOS: >2 Midnights Patient will require the following post-hospital care: None Practitioner: I am a practitioner with admitting privileges, knowledge of patient current condition, hospital course, and medical plan of care. Services: Services provided to patient in accordance with Admission requirements found in Title 42 Section 412.3 of the Code of Federal Regulations Patient History Date of Service: 11/30/17 Primary Care Provider: Dr. Garcia Reason for admission: Dizziness, fatigue History of Present Illness: 77-year-old male presented emergency room with dizziness and fatigue. Patient had reported some melena and rectal bleeding about 1 week ago. He does not report this at this time. Patient came to the emergency room due to increasing dizziness. He also came to the emergency room after he was told by his PCP to be further evaluated due to anemia. Patient with history of rectal bleeding/GI bleed in October. He had an EGD done at that time showing angiodysplasia. An ablation was done. Patient did receive blood at that time. In the ER the patient was evaluated. He is found to have hemoglobin 7.1. Platelet count 104. Other electrolytes were unremarkable. Due to the nature the findings the patient was admitted for further evaluation. When I saw the patient ER, he can't appear in any distress. Patient did appear pale. Patient with history of angiodysplasia requiring ablation, GERD, anemia, history of GI bleed. Allergies No Known Allergies Allergy (Unverified 09/18/17 08:20) Home medications list reviewed: Yes Home Medications: RX: Carvedilol [Coreg*] 1 tab PO BID 11/08/17 RX: Furosemide [Lasix*] 1 tab PO DAILY 11/08/17 RX: Mometasone/Formoterol [Dulera 200 Mcg/5 Mcg Inhaler] 2 puff IH BID #1 inhaler 11/08/17 RX: Spironolactone 1 tab PO DAILY 11/08/17 RX: Pantoprazole [Protonix Tab*] 40 mg PO BIDAC tab 11/14/17 RX: Tamsulosin [Flomax*] 0.4 mg PO DAILY cap 11/14/17 Docusate [Colace Cap] 100 mg PO BID 11/30/17 Insulin -Regular Human [Novolin -R*] See Protocol SQ ACHS 11/30/17 Insulin Detemir [Levemir*] 15 unit SQ BEDTIME 11/30/17 Insulin Detemir [Levemir*] 25 unit SQ DAILY 11/30/17 Neomycin Sulfate 500 mg PO TID 11/30/17 RX: Simvastatin 20 mg PO BEDTIME 11/30/17 - Past Medical/Surgical History Has patient received pneumonia vaccine in the past: Yes Diabetic: Yes -: Diabetes mellitus type 2 -: CAD -: Liver cirrhosis -: COPD -: Former tobacco use -: Alcohol use -: HTN -: GERD -: History of angiodysplasia requiring ablation -: Anemia -: cataracat sx rob eye. Psychosocial/ Personal History: The patient lives with a friend. He is . He has several children that he is not in contact with. - Family History Father -: Cancer Brother -: Cancer Mother -: Diabetes - Social History Smoking Status: Current every day smoker Alcohol use: Yes CD- Drugs: No Caffeine use: Yes Place of Residence: Home Review of Systems General: Weakness, Malaise, As per HPI Eyes: Unremarkable ENT: Unremarkable Respiratory: Unremarkable Cardiovascular: Light Headedness, As per HPI Gastrointestinal: Melena, As per HPI Genitourinary: Unremarkable Musculoskeletal: Unremarkable Integumentary: Unremarkable Neurological: Unremarkable Lymphatics: Unremarkable Physical Examination - Vital Signs Temperature: 97.6 F Blood Pressure: 133/57 Pulse: 72 Respirations: 18 Pulse Ox (%): 100 - Physical Exam General: Alert, In no apparent distress, Oriented x3, Cooperative HEENT: Atraumatic, Normocephalic, PERRLA, Mucous membr. moist/pink Neck: Supple, No Thyromegaly Respiratory: Clear to auscultation bilaterally, Normal air movement Cardiovascular: Normal pulses, Regular rate/rhythm Gastrointestinal: Normal bowel sounds, Soft and benign, Non-distended, No tenderness, No masses, No rebound, No guarding Musculoskeletal: No erythema, No tenderness, No warmth Integumentary: No tenderness/swelling, No erythema, No warmth, No cyanosis Neurological: Normal speech, Normal strength at 5/5 x4 extr, Normal tone, Normal affect Lymphatics: No axilla or inguinal lymphadenopathy - Studies Laboratory Data (last 24 hrs) 11/30/17 13:55: Sodium 136, Potassium 3.6, BUN 9, Creatinine 0.66, Glucose 277 H 05/07/18 13:55: WBC 5.0, Hgb 7.1 L*, Hct 22.9 L, Plt Count 104 L D Assessment and Plan - Problems (Diagnosis) (1) Dizziness Current Visit: Yes Status: Acute Plan: Dizziness likely related to GI bleed. Patient with history of NG dysplasia requiring ablation therapy in October of 2015. Patient reported melena and blood per rectum 1 week ago. Patient anemic with symptoms. Patient will get 2 units of packed red blood cells. Will monitor closely. GI has been consulted. Patient may require repeat EGD. Will start IV Rocephin, IV Protonix drip. Will monitor hemoglobin closely. (2) Angiodysplasia of duodenum Current Visit: No Status: Chronic Plan: Patient with history of angiodysplasia. Will monitor closely. Will continue with above plan of care. Patient may require repeat EGD. (3) GI bleed Current Visit: No Status: Suspected Plan: Suspect slow GI bleed. Patient reports melena and rectal bleeding 1 week ago. He reports none at this time. Will transfuse patient. Will discuss with GI. Patient may require repeat EGD due to recent history of angiodysplasia requiring ablation. Qualifiers: GI bleed type/associated pathology: angiodysplasia of stomach and duodenum Qualified Code(s): K31.811 - Angiodysplasia of stomach and duodenum with bleeding (4) Anemia Onset Date: 11/05/17 Current Visit: No Status: Acute Plan: Continue as above. Qualifiers: Anemia type: other cause Other causes of anemia: acute posthemorrhagic Qualified Code(s): D62 - Acute posthemorrhagic anemia (5) CAD (coronary artery disease) Onset Date: 11/05/17 Current Visit: No Status: Chronic Plan: Will monitor closely. Will obtain home medication Qualifiers: (6) COPD (chronic obstructive pulmonary disease) Onset Date: 11/05/17 Current Visit: No Status: Chronic Plan: Will provide COPD medication. Qualifiers: COPD type: chronic bronchitis (7) Diabetes mellitus Onset Date: 11/05/17 Current Visit: No Status: Chronic Plan: Will continue with Accu-Cheks. Will monitor closely. Will obtain home medication Qualifiers: Diabetes mellitus type: type 2 Diabetes mellitus meterman insulin use: without meterman use Diabetes mellitus complication status: with other specified complication Qualified Code(s): E11.69 - Type 2 diabetes mellitus with other specified complication (8) GERD (gastroesophageal reflux disease) Onset Date: 11/05/17 Current Visit: No Status: Chronic Plan: Continue as above Qualifiers: (9) Gastric varices Current Visit: No Status: Chronic Plan: Patient with history of gastric varices. Will continue as above. (10) Hypertension Onset Date: 11/05/17 Current Visit: No Status: Chronic Plan: Will continue with his medication. Will verify home meds Qualifiers: Hypertension type: essential hypertension Discharge Plan: Home Plan to discharge in: 72 Hours - Advance Directives Does patient have a Living Will: No Does patient have a Durable POA for Healthcare: No - Code Status/Comfort Care Code Status Assessed: Yes Time Spent Managing Pts Care (In Minutes): 55
[2017-11-30 19:52] LABS: Urine Appearance CLOUDY; Urine Bilirubin NEGATIVE (NEG); Urine Blood NEGATIVE (NEG); Urine Color YELLOW; Urine Glucose 3+ (NEG); Urine Protein NEGATIVE (NEG); Urine Urobilinogen 0.2 mg/dL (0.2-1.0); Urine pH 6.5 (5.0-7.0)
[2017-11-30 20:20] LABS: Urine Bacteria >50 /HPF (NONE SEEN); Urine Culture Reflex Order REFLEXED; Urine Microscopic Reflex ORDER UMIC; Urine Mucus 1+ /HPF (NONE SEEN); Urine RBC NONE SEEN /HPF (NONE SEEN)
[2017-11-30] MEDS ORDERED: Rifaximin 550 MG Tab PO SCH (21:00)
[2017-11-30] MEDS: NA CHLORIDE 0.9% 250 ML ONE ×2 (21:04→21:07)
[2017-12-01] MEDS: FUROSEMIDE 20 MG/ 2ML VIAL IV SCH ×2 (01:10→04:52)
[2017-12-01] MEDS: PANTOPRAZOLE INJ 80 MG in NA CHLORIDE 0.9% 250 ML IV SCH (03:10)
[2017-12-01 06:09] LABS: BUN Blood Urea Nitrogen 7 mg/dL (6-20); Bicarbonate 23 mEq/L (21-31); Glucose Level 212 mg/dL (65-120); Magnesium 1.6 mg/dL (1.8-2.5); Potassium 3.7 mEq/L (3.6-5.0); Sodium Level 137 mEq/L (135-145)
[2017-12-01 06:12] LABS: Absolute Lymphocytes (CBC) 1.6 K/uL (0.7-4.9); Absolute Monocytes 0.9 K/uL (0.1-1.3); Absolute Neutrophil 2.4 K/uL (1.8-8.0); Basophils % 0.3 % (0-1.3); Eosinophils % 3.4 % (0-4.4); Hematocrit 28.7 % (39.6-49.0); Lymphocytes % 31.9 % (15.3-44.8); MCH 26.2 pg (27.0-35.0); MCV 82.9 fL (80-100); MPV 9.4 fL (7.6-11.3); Monocytes % 16.9 % (3.3-12.3); RBC Red Blood Cell Count 3.46 M/uL (4.33-5.43)
[2017-12-01] MEDS ORDERED: NA CHLORIDE 0.9% 250 ML ONE (06:46)
[2017-12-01] MEDS: NA CHLORIDE 0.9% 250 ML ONE (06:49)
[2017-12-01] MEDS ORDERED: MAGNESIUM SULFATE 1 gm IVPB 1 GM/100 ML BAG IV ONE (07:00)
[2017-12-01] MEDS: INSULIN -REGULAR HUMAN 50 UNIT/0.5 ML ML SQ SCH (07:30)
[2017-12-01 08:06] VITALS: BP 146/59; TEMP 98.3
[2017-12-01 08:55] LABS: Anisocytosis 1+; Blood Morphology Comment NOTED (NOT SEEN); Platelet Estimate DECR
[2017-12-01] MEDS ORDERED: KCL 20 MEQ/100 mL IVPB 20 MEQ/100 ML BAG IV SCH (09:00)
[2017-12-01] MEDS ORDERED: GLUCAGON 1 MG/VIAL IM PRN (09:49)
[2017-12-01] MEDS ORDERED: ALBUTEROL 2.5 MG/3 ML NEB SOL NEB PRN (09:49)
[2017-12-01] MEDS ORDERED: IPRATROPIUM BROM 0.5MG/2.5ML NEB PRN (09:49)
[2017-12-01] MEDS ORDERED: D50W 25 GM/50 ML SYRINGE IV PRN (09:49)
[2017-12-01 10:11] VITALS: O2SAT 96
[2017-12-01] MEDS ORDERED: INSULIN -REGULAR HUMAN 50 UNIT/0.5 ML ML SQ SCH (11:30)
--- NOTE | 2017-12-01 12:37 | P.PN ---
Subjective Date of Service: 12/01/17 Primary Care Provider: Dr. Garcia Chief Complaint: Dizziness, fatigue Subjective: Improving (Patient feels better. Patient received 2 units of blood. Hemoglobin 9.1. Overall stable. Patient NPO for possible EGD.) Physical Examination - Vital Signs Temperature: 98.3 F Blood Pressure: 146/59 Pulse: 70 Respirations: 16 Pulse Ox (%): 98 - Physical Exam General: Alert, In no apparent distress, Oriented x3, Cooperative HEENT: Atraumatic Neck: Supple Respiratory: Clear to auscultation bilaterally, Normal air movement Cardiovascular: Normal pulses, Regular rate/rhythm Gastrointestinal: Normal bowel sounds, Soft and benign, Non-distended, No tenderness, No masses, No rebound, No guarding Musculoskeletal: No erythema, No tenderness, No warmth Integumentary: No tenderness/swelling, No erythema, No warmth, No cyanosis Neurological: Normal speech, Normal strength at 5/5 x4 extr, Normal tone, Normal affect - Studies Laboratory Data (last 24 hrs) 11/30/17 13:55: Sodium 136, Potassium 3.6, BUN 9, Creatinine 0.66, Glucose 277 H 11/30/17 13:55: WBC 5.0, Hgb 7.1 L*, Hct 22.9 L, Plt Count 104 L D Medications List Reviewed: Yes Assessment & Plan - Problems (Diagnosis) (1) Dizziness Onset Date: 12/01/17 Current Visit: Yes Status: Acute Plan: Dizziness likely related to GI bleed. Patient with history of NG dysplasia requiring ablation therapy in October of 2015. Patient reported melena and blood per rectum 1 week ago. Patient without any melena or blood per rectum at this time. Patient received 2 units of blood. Hemoglobin improved to 9.1. Patient NPO for possible EGD. Patient also on Rocephin and Protonix drip. Will discuss with GI. (2) Angiodysplasia of duodenum Onset Date: 12/01/17 Current Visit: No Status: Chronic Plan: Patient with history of angiodysplasia. Will monitor closely. Will continue with above plan of care. Patient may require repeat EGD. (3) GI bleed Onset Date: 12/01/17 Current Visit: No Status: Suspected Plan: Suspect slow GI bleed. Patient reports melena and rectal bleeding 1 week ago. He reports none at this time. Patient transfused 2 units of blood. Hemoglobin improved. Patient NPO for possible EGD. Will discuss with GI. Qualifiers: GI bleed type/associated pathology: angiodysplasia of stomach and duodenum Qualified Code(s): K31.811 - Angiodysplasia of stomach and duodenum with bleeding (4) Anemia Onset Date: 11/05/17 Current Visit: No Status: Acute Plan: Continue as above. Qualifiers: Anemia type: other cause Other causes of anemia: acute posthemorrhagic Qualified Code(s): D62 - Acute posthemorrhagic anemia (5) CAD (coronary artery disease) Onset Date: 11/05/17 Current Visit: No Status: Chronic Plan: Will monitor closely. Will obtain home medication Qualifiers: (6) COPD (chronic obstructive pulmonary disease) Onset Date: 11/05/17 Current Visit: No Status: Chronic Plan: Will provide COPD medication. Qualifiers: COPD type: chronic bronchitis (7) Diabetes mellitus Onset Date: 11/05/17 Current Visit: No Status: Chronic Plan: Will continue with Accu-Cheks. Will monitor closely. 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 Will continue as above. (10) Hypertension Onset Date: 11/05/17 Current Visit: No Status: Chronic Plan: Will continue with his medication. Will verify home meds Qualifiers: Hypertension type: essential hypertension Discharge Plan: Home Time Spent Managing Pts Care (In Minutes): 55
--- NOTE | 2017-12-01 14:22 | P.DS ---
Admission Date: 11/30/17 Discharge Date: 12/01/17 Primary Care Provider: Dr. Garcia Disposition: AMA-LEFT AGAINST MEDICAL ADVIC Discharge Condition: GOOD Reason for Admission: Dizziness, fatigue Consultations: GI-Dr. Carolina - Problems (1) Dizziness Onset Date: 12/01/17 Current Visit: Yes Status: Acute (2) Angiodysplasia of duodenum Onset Date: 12/01/17 Current Visit: No Status: Chronic (3) GI bleed Onset Date: 12/01/17 Current Visit: No Status: Suspected Qualifiers: GI bleed type/associated pathology: angiodysplasia of stomach and duodenum Qualified Code(s): K31.811 - Angiodysplasia of stomach and duodenum with bleeding (4) Anemia Onset Date: 11/05/17 Current Visit: No Status: Acute Qualifiers: Anemia type: other cause Other causes of anemia: acute posthemorrhagic Qualified Code(s): D62 - Acute posthemorrhagic anemia (5) CAD (coronary artery disease) Onset Date: 11/05/17 Current Visit: No Status: Chronic Qualifiers: (6) COPD (chronic obstructive pulmonary disease) Onset Date: 11/05/17 Current Visit: No Status: Chronic Qualifiers: COPD type: chronic bronchitis (7) Diabetes mellitus Onset Date: 11/05/17 Current Visit: No Status: Chronic Qualifiers: Diabetes mellitus type: type 2 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 insulin use: without assisted use Diabetes mellitus complication status: with other specified complication Qualified Code(s): E11.69 - Type 2 diabetes mellitus with other specified complication (8) GERD (gastroesophageal reflux disease) Onset Date: 11/05/17 Current Visit: No Status: Chronic Qualifiers: (9) Gastric varices Onset Date: 12/01/17 Current Visit: No Status: Chronic (10) Hypertension Onset Date: 11/05/17 Current Visit: No Status: Chronic Qualifiers: Hypertension type: essential hypertension Brief History of Present Illness: 77-year-old male presented emergency room with dizziness and fatigue. Patient had reported some melena and rectal bleeding about 1 week ago. He does not report this at this time. Patient came to the emergency room due to increasing dizziness. He also came to the emergency room after he was told by his PCP to be further evaluated due to anemia. Patient with history of rectal bleeding/GI bleed in October. He had an EGD done at that time showing angiodysplasia. An ablation was done. Patient did receive blood at that time. In the ER the patient was evaluated. He is found to have hemoglobin 7.1. Platelet count 104. Other electrolytes were unremarkable. Due to the nature the findings the patient was admitted for further evaluation. When I saw the patient ER, he can't appear in any distress. Patient did appear pale. Patient with history of angiodysplasia requiring ablation, GERD, anemia, history of GI bleed. Hospital Course: Patient was given 2 units of pRBC during his stay. He felt better and was expected to get an EGD to evaluate for possible angiodysplasia. Patient was tired of waiting. He refused to have the EGD done. I explained the risk and benefit of needing the EGD. I also explained the risk of leaving AMA. The patient is in right mind to make his decisions. He has signed AMA. He will [facility] to the [facility]. I will have the nurses contact halfway and his PCP to recheck the CBC tomorrow. He will need to follow up with GI as an outpatient. He may require another transfusion. This can be arranged as an outpatient. He will continue his other medication for DM, HTN, GERD, COPD. He is currently without melena or bleeding per rectum. Vital Signs/Physical Exam: Temp Pulse Resp BP Pulse Ox 98.3 F 70 16 146/59 H 98 12/01/17 12:37 12/01/17 12:37 12/01/17 12:37 12/01/17 12:37 12/01/17 12:37 General: Alert, In no apparent distress, Oriented x3, Cooperative HEENT: Atraumatic Neck: Supple Respiratory: Clear to auscultation bilaterally, Normal air movement Cardiovascular: Normal pulses, Regular rate/rhythm Gastrointestinal: Normal bowel sounds, Soft and benign, Non-distended, No tenderness, No masses, No rebound, No guarding Musculoskeletal: No erythema, No tenderness, No warmth Integumentary: No tenderness/swelling, No erythema, No warmth, No cyanosis Neurological: Normal speech, Normal strength at 5/5 x4 extr, Normal tone, Normal affect Laboratory Data at Discharge: WBC 5.0 K/uL (4.3-10.9) 12/01/17 05:18 Hgb 9.1 g/dL (13.6-17.9) L 12/01/17 05:18 Hct 28.7 % (39.6-49.0) L D 12/01/17 05:18 Plt Count 80 K/uL (152-406) L D 12/01/17 05:18 Sodium 137 mEq/L (135-145) 12/01/17 05:18 Potassium 3.7 mEq/L (3.6-5.0) 12/01/17 05:18 BUN 7 mg/dL (6-20) 12/01/17 05:18 Creatinine 0.62 mg/dL (0.61-1.24) 12/01/17 05:18 Glucose 212 mg/dL (65-120) H 12/01/17 05:18 Magnesium 1.6 mg/dL (1.8-2.5) L 12/01/17 05:18 Home Medications: Carvedilol [Coreg*] 1 tab PO BID 11/08/17 Furosemide [Lasix*] 1 tab PO DAILY 11/08/17 Mometasone/Formoterol [Dulera 200 Mcg/5 Mcg Inhaler] 2 puff IH BID #1 inhaler Spironolactone 1 tab PO DAILY 11/08/17 Pantoprazole [Protonix Tab*] 40 mg PO BIDAC tab 11/14/17 Tamsulosin [Flomax*] 0.4 mg PO DAILY cap 11/14/17 Docusate [Colace Cap*] 100 mg PO BID 11/30/17 Insulin -Regular Human [Novolin -R*] See Protocol SQ ACHS 11/30/17 Insulin Detemir [Levemir*] 15 unit SQ BEDTIME 11/30/17 Insulin Detemir [Levemir*] 25 unit SQ DAILY 11/30/17 Simvastatin 20 mg PO BEDTIME 11/30/17 Patient Discharge Instructions: 1. Patient left AMA. 2. Recommend to recheck CBC tomorrow. He will need to follow up with GI as outpatient for outpatient EGD. 3. He may continue with his previous medications. 4. He is to monitor for dizziness, bleeding and melena. Diet: ADA Activity: Fall precautions Time spent managing pt's care (in minutes): 55
[2017-12-01 15:26] LABS: Hematocrit 31.9 % (39.6-49.0)
[2017-12-01] MEDS ORDERED: ARFORMOTEROL TARTRATE 15 MCG/2 ML VIAL.NEB NEB SCH (20:00)
[2017-12-01] MEDS ORDERED: CARVEDILOL 3.125 MG TAB PO SCH (21:00)
[2017-12-02] MEDS ORDERED: TAMSULOSIN 0.4 MG SR CAP PO SCH (09:00)
[2017-12-02] MEDS ORDERED: FUROSEMIDE 40 MG TABLET PO SCH (09:00)
== END 2017-12-01 15:01 | disposition left against medical advice (07) ==
LOC: EDBD → ER 13:21 → ERHOLD 14:57 → 4TH 15:44
PROVIDERS: ADMIT Family Medicine; ATTEND Family Medicine
PROC: 30233N1 Transfusion of Nonautologous Red Blood Cells into Peripheral Vein, Percutaneous Approach (ICD-10-PCS; principal; 2017-12-01)
DX: D64.9 Anemia, unspecified (principal); K21.9 Gastro-esophageal reflux disease without esophagitis; E11.9 Type 2 diabetes mellitus without complications; I25.10 Atherosclerotic heart disease of native coronary artery without angina pectoris; I10 Essential (primary) hypertension; J44.9 Chronic obstructive pulmonary disease, unspecified; Z87.891 Personal history of nicotine dependence
CPT/HCPCS: 36415; 36430; 80048 ×2; 82962 ×4; 83735; 85014; 85018; 85025 ×2; 86850; 86900; 86901; 87077; 87086; 87088; 87186; 99285; C9113; J0696; J1940 ×2; J3475; P9016 ×2; 81003; 81015

== ENCOUNTER 2018-02-22 17:28 | Inpatient (IN) | payer OTHER ==
[2018-02-22] MEDS ORDERED: AZITHROMYCIN 500 MG/250 ML BAG ONE (18:14)
[2018-02-22] MEDS ORDERED: NA CHLORIDE 0.9% 1,000 ML ONE ×2 (18:14→18:49)
[2018-02-22] MEDS ORDERED: METHYLPREDNISOLONE 125 MG INJ ONE (18:14)
[2018-02-22] MEDS ORDERED: LEVALBUTEROL 1.25 MG/3 ML NEB ONE (18:14)
[2018-02-22] MEDS ORDERED: IPRATROPIUM BROM 0.5MG/2.5ML ONE (18:14)
[2018-02-22] MEDS ORDERED: CEFTRIAXONE/SWI 1gm 1 GM/10 ML SYR ONE ×2 (18:14→18:49)
[2018-02-22 18:32] LABS: Absolute Lymphocytes (CBC) 1.5 K/uL (0.7-4.9); Absolute Monocytes 1.7 K/uL (0.1-1.3); Absolute Neutrophil 5.1 K/uL (1.8-8.0); Basophils % 0.3 % (0-1.3); Hematocrit 35.2 % (39.6-49.0); MCH 29.4 pg (27.0-35.0); MCV 88.5 fL (80-100); MPV 8.6 fL (7.6-11.3); Monocytes % 19.9 % (3.3-12.3); RBC Red Blood Cell Count 3.98 M/uL (4.33-5.43)
[2018-02-22 18:39] LABS: Protime INR 1.44
[2018-02-22 18:43] LABS: ALT/SGPT 27 U/L (12-78); AST/SGOT 58 U/L (15-37); Albumin 3.1 g/dL (3.4-5.0); Alkaline Phosphatase 86 U/L (45-117); BUN Blood Urea Nitrogen 8 mg/dL (7-18); Bicarbonate 21 mmol/L (21-32); Bilirubin Direct 0.5 mg/dL (0-0.2); Bilirubin Total 1.4 mg/dL (0.2-1.0); CKMB Creatine Kinase MB < 1.0 ng/mL (0.3-3.6); Creatine Phosphokinase 98 U/L (39-308); Glucose Level 95 mg/dL (74-106); Lipase 322 U/L (73-393); Magnesium 1.8 mg/dL (1.8-2.4); NT PRO-BNP 179 pg/mL (<450); Potassium 3.5 mmol/L (3.5-5.1); Protein, Total 7.9 g/dL (6.4-8.2); Sodium Level 133 mmol/L (136-145)
--- NOTE | 2018-02-22 18:44 | ER ---
Nurse's Notes [facility] Name: Jean Lucio III Age: 77 yrs Sex: Male : 1940 Arrival Date: 02/22/2018 Time: 17:29 Bed 16 Private MD: Diagnosis: Fever, unspecified;Acute upper respiratory infection, unspecified;Pneumonia due to other specified bacteria;Cystitis;Anemia, unspecified Presentation: 02/22 17:29 Presenting complaint: EMS states: Fever and cough for 2 days. HX of pneumonia. aj Transition of care: patient was not received from another setting of care. Onset of symptoms was February 20, 2018. Risk Assessment: Do you want to hurt yourself or someone else? Patient reports no desire to harm self or others. Initial Sepsis Screen: Does the patient meet any 2 criteria? No. Patient's initial sepsis screen is negative. Does the patient have a suspected source of infection? No. Patient's initial sepsis screen is negative. Care prior to arrival: None. 17:29 Method Of Arrival: EMS: [facility] aj 17:29 Acuity: RITA 3 aj Triage Assessment: 17:33 General: Appears in no apparent distress. comfortable, Behavior is calm, cooperative, aj appropriate for age. Pain: Denies pain. Neuro: Level of Consciousness is awake, alert, obeys commands, Oriented to person, place, time, situation, Appropriate for age. Respiratory: Reports cough that is Airway is patent Respiratory effort is even, unlabored, Respiratory pattern is regular, symmetrical. Derm: Skin is intact, is healthy with good turgor, Skin is pink, warm \T\ dry. normal, Bruising that is yellow, on suprapubic area, right upper quadrant and left lower quadrant. Historical: - Allergies: 17:33 No Known Allergies; aj - Home Meds: 17:33 carvedilol 3.125 mg Oral tab 1 tab 2 times per day [Active]; cefdinir 300 mg Oral cap 1 aj cap every 12 hours [Active]; Colace 100 mg Oral cap 1 cap 2 times per day [Active]; Iron CR Oral [Active]; dulera [Active]; Lasix 40 mg Oral tab 1 tab once daily [Active]; levemir [Active]; lisinopril 2.5 mg Oral tab 1 tab once daily [Active]; neomycin 500 mg Oral tab 3 times per day [Active]; NOVOLOG [Active]; pantoprazole 40 mg Oral TbEC 1 tab 2 times per day [Active]; potassium chloride 10 mEq Oral cpER 1 cap once daily [Active]; simvastatin 20 mg Oral tab 1 tab once daily [Active]; spironolactone 25 mg Oral tab 1 tab once daily [Active]; tamsulosin 0.4 mg Oral cp24 1 cap once daily [Active]; - PMHx: 17:33 COPD; Anemia; diagnosed with cancer at [place], did not seek treatment; Hyperlipidemia; aj Hypertension; Myocardial infarction; - Immunization history:: Adult Immunizations up to date. - Social history:: Smoking status: Patient uses tobacco products, smokes one-half pack cigarettes per day. - Ebola Screening: : Patient negative for fever greater than or equal to 101.5 degrees Fahrenheit, and additional compatible Ebola Virus Disease symptoms Patient denies exposure to infectious person Patient denies travel to an Ebola-affected area in the 21 days before illness onset No symptoms or risks identified at this time. - Family history:: not pertinent. Screenin:50 Abuse screen: Denies threats or abuse. Denies injuries from another. Nutritional aj screening: No deficits noted. Tuberculosis screening: No symptoms or risk factors identified. Fall Risk None identified. Assessment: 17:35 Reassessment: See triage. aj 20:11 Reassessment: Patient appears in no apparent distress at this time. No changes from aj previously documented assessment. Patient and/or family updated on plan of care and expected duration. Pain level reassessed. Patient is alert, oriented x 3, equal unlabored respirations, skin warm/dry/pink. Notified desk tech Ray that patient is ready to move upstairs and orders are in the computer. Was told that the data warehouse architect did not want patient's placed in Ready To Move status, as there is no nurse there to take the patients. Patient states feeling better. Patient states symptoms have improved. Vital Signs: 17:33 BP 153 / 61; Pulse 88; Resp 21; Temp 99.9(O); Pulse Ox 93% on R/A; Weight 86.18 kg; aj Height 5 ft. 10 in. (177.80 cm); 18:41 BP 108 / 87; Pulse 87; Resp 20; Pulse Ox 96% on R/A; aj 20:10 BP 146 / 66; Pulse 80; Resp 19; Temp 99.8(O); Pulse Ox 95% on R/A; aj 21:02 BP 150 / 67; Pulse 76; Resp 18; Pulse Ox 100% on R/A; aj 17:33 Body Mass Index 27.26 (86.18 kg, 177.80 cm) ED Course: 17:29 Patient arrived in ED. aj 17:29 Koki Horvath, RN is Primary Nurse. aj 17:31 Triage completed. aj 17:32 Joe Mcfadden MD is Attending Physician. everett 17:33 Arm band placed on left wrist. Patient placed in an exam room. aj 17:50 Patient has correct armband on for positive identification. aj 18:24 Inserted saline lock: 20 gauge in left forearm, using aseptic technique. Blood aj collected. 18:25 Initial lab(s) drawn, by ok, sent to lab. aj 18:37 Notified ED physician of a critical lab result(s). lactate 2.9. iw 18:42 Darren Perry MD is Hospitalizing Provider. everett 18:54 XRAY Chest (1 view) In Process Unspecified. EDMS 21:02 No provider procedures requiring assistance completed. Patient admitted, IV remains in aj place. intact. Administered Medications: 18:25 Drug: Zithromax 500 mg Route: IVPB; Infused Over: 1 hrs; Site: left forearm; aj 21:07 Follow up: IV Status: Completed infusion aj 18:27 Drug: AtroVENT Aerosol 0.5 mg Route: Inhalation; aj 18:27 Drug: Rocephin - (cefTRIAXone) 1 grams Route: IVPB; Infused Over: 30 mins; Site: left aj forearm; 21:07 Follow up: Response: No adverse reaction; IV Status: Completed infusion; IV Intake: 50mlaj 18:28 Drug: NS 0.9% 500 ml Route: IV; Rate: bolus; Site: left forearm; aj 21:10 Follow up: Response: No adverse reaction; IV Status: Completed infusion; IV Intake: aj 500ml 18:28 Drug: NS 0.9% 1000 ml Route: IV; Rate: 125 ml/hr; Site: left forearm; aj 21:10 Follow up: Response: No adverse reaction; IV Status: Infusion continued upon admission; IV Intake: 450ml 18:28 Drug: SOLU-Medrol 125 mg Route: IVP; Site: left forearm; 21:09 Follow up: Response: No adverse reaction aj 18:28 Drug: Xopenex 2.5 mg Route: Inhalation; aj 18:49 Drug: NS 0.9% 1000 ml Route: IV; Rate: 1 bolus; Site: left forearm; aj 21:08 Follow up: Response: No adverse reaction; IV Status: Completed infusion; IV Intake: aj 1000ml 18:49 Drug: Tylenol 650 mg Route: PO; aj 21:06 Follow up: Response: Temperature is decreased aj 18:50 Drug: Rocephin - (cefTRIAXone) 1 grams Route: IVPB; Infused Over: 30 mins; Site: left aj forearm; 21:08 Follow up: IV Status: Completed infusion aj Intake: 21:07 IV: 50ml; Total: 50ml. aj 21:08 IV: 1000ml; Total: 1050ml. aj 21:10 IV: 450ml; Total: 1500ml. 21:10 IV: 500ml; Total: 2000ml. Outcome: 18:43 Decision to Hospitalize by Provider. [facility] 21:11 Patient left the ED. aj Signatures: Dispatcher [employer] EDKoki Galladro RN RN aj Anderson, Corey, MD MD cha Williams, Irene RN RN iw Corrections: (The following items were deleted from the chart) 17:50 17:33 BP 153 / 61; Pulse 88bpm; Resp 21bpm; Pulse Ox 93% RA; 86.18 kg; Height 5 ft. 10 aj in.; BMI: 27.2; aj
--- NOTE | 2018-02-22 18:44 | EDPHYS ---
Physician Documentation [facility] Name: Jean Lucio III Age: 77 yrs Sex: Male : 1940 Arrival Date: 02/22/2018 Time: 17:29 Bed 16 Private MD: ED Physician Joe Mcfadden HPI: 02/22 17:42 This 77 yrs old Male presents to ER via EMS with complaints of Fever. everett 17:42 The patient reports fever, that was measured at 100 degrees Fahrenheit. Onset: The everett symptoms/episode began/occurred 3 day(s) ago. Modifying factors: there are no obvious modifying factors. Associated signs and symptoms: Pertinent positives: chills, cough, nausea, runny nose. Severity of symptoms: At their worst the symptoms were mild moderate in the emergency department the symptoms are unchanged. The patient has not experienced similar symptoms in the past. Historical: - Allergies: 17:33 No Known Allergies; aj - Home Meds: 17:33 carvedilol 3.125 mg Oral tab 1 tab 2 times per day [Active]; cefdinir 300 mg Oral cap 1 aj cap every 12 hours [Active]; Colace 100 mg Oral cap 1 cap 2 times per day [Active]; Iron CR Oral [Active]; dulera [Active]; Lasix 40 mg Oral tab 1 tab once daily [Active]; levemir [Active]; lisinopril 2.5 mg Oral tab 1 tab once daily [Active]; neomycin 500 mg Oral tab 3 times per day [Active]; NOVOLOG [Active]; pantoprazole 40 mg Oral TbEC 1 tab 2 times per day [Active]; potassium chloride 10 mEq Oral cpER 1 cap once daily [Active]; simvastatin 20 mg Oral tab 1 tab once daily [Active]; spironolactone 25 mg Oral tab 1 tab once daily [Active]; tamsulosin 0.4 mg Oral cp24 1 cap once daily [Active]; - PMHx: 17:33 COPD; Anemia; diagnosed with cancer at [place], did not seek treatment; Hyperlipidemia; aj Hypertension; Myocardial infarction; - Immunization history:: Adult Immunizations up to date. - Social history:: Smoking status: Patient uses tobacco products, smokes one-half pack cigarettes per day. - Ebola Screening: : Patient negative for fever greater than or equal to 101.5 degrees Fahrenheit, and additional compatible Ebola Virus Disease symptoms Patient denies exposure to infectious person Patient denies travel to an Ebola-affected area in the 21 days before illness onset No symptoms or risks identified at this time. - Family history:: not pertinent. ROS: 17:42 Eyes: Negative for injury, pain, redness, and discharge, ENT: Negative for injury, everett pain, and discharge, Neck: Negative for injury, pain, and swelling, Cardiovascular: Negative for chest pain, palpitations, and edema, Abdomen/GI: Negative for abdominal pain, nausea, vomiting, diarrhea, and constipation, Back: Negative for injury and pain, : Negative for injury, bleeding, discharge, and swelling, MS/Extremity: Negative for injury and deformity, Skin: Negative for injury, rash, and discoloration, Neuro: Negative for headache, weakness, numbness, tingling, and seizure, Psych: Negative for depression, anxiety, suicide ideation, homicidal ideation, and hallucinations, Allergy/Immunology: Negative for hives, rash, and allergies, Endocrine: Negative for neck swelling, polydipsia, polyuria, polyphagia, and marked weight changes, Hematologic/Lymphatic: Negative for swollen nodes, abnormal bleeding, and unusual bruising. 17:42 Constitutional: Positive for fatigue, fever, malaise. 17:42 Respiratory: Positive for cough, shortness of breath, wheezing, inspiratory, expiratory. Exam: 17:42 Head/Face: Normocephalic, atraumatic. Eyes: Pupils equal round and reactive to light, everett extra-ocular motions intact. Lids and lashes normal. Conjunctiva and sclera are non-icteric and not injected. Cornea within normal limits. Periorbital areas with no swelling, redness, or edema. ENT: Nares patent. No nasal discharge, no septal abnormalities noted. Tympanic membranes are normal and external auditory canals are clear. Oropharynx with no redness, swelling, or masses, exudates, or evidence of obstruction, uvula midline. Mucous membranes moist. Neck: Trachea midline, no thyromegaly or masses palpated, and no cervical lymphadenopathy. Supple, full range of motion without nuchal rigidity, or vertebral point tenderness. No Meningismus. Chest/axilla: Normal chest wall appearance and motion. Nontender with no deformity. No lesions are appreciated. Cardiovascular: Regular rate and rhythm with a normal S1 and S2. No gallops, murmurs, or rubs. Normal PMI, no JVD. No pulse deficits. Abdomen/GI: Soft, non-tender, with normal bowel sounds. No distension or tympany. No guarding or rebound. No evidence of tenderness throughout. Back: No spinal tenderness. No costovertebral tenderness. Full range of motion. Male : Normal genitalia with no discharge or lesions. Skin: Warm, dry with normal turgor. Normal color with no rashes, no lesions, and no evidence of cellulitis. MS/ Extremity: Pulses equal, no cyanosis. Neurovascular intact. Full, normal range of motion. Neuro: Awake and alert, GCS 15, oriented to person, place, time, and situation. Cranial nerves II-XII grossly intact. Motor strength 5/5 in all extremities. Sensory grossly intact. Cerebellar exam normal. Normal gait. Psych: Awake, alert, with orientation to person, place and time. Behavior, mood, and affect are within normal limits. 17:42 Constitutional: The patient appears febrile. 17:42 Respiratory: mild respiratory distress is noted, Respirations: labored breathing, that is mild, Breath sounds: bronchial sounds, that are mild, that are moderate, are heard in the left posterior upper lobe, right posterior upper lobe, left posterior lower lobe, right posterior middle lobe and right posterior lower lobe, rhonchi, that are mild, that are moderate, + upper airway congestion. wheezing: inspiratory expiratory Vital Signs: 17:33 BP 153 / 61; Pulse 88; Resp 21; Temp 99.9(O); Pulse Ox 93% on R/A; Weight 86.18 kg; aj Height 5 ft. 10 in. (177.80 cm); 18:41 BP 108 / 87; Pulse 87; Resp 20; Pulse Ox 96% on R/A; aj 20:10 BP 146 / 66; Pulse 80; Resp 19; Temp 99.8(O); Pulse Ox 95% on R/A; aj 21:02 BP 150 / 67; Pulse 76; Resp 18; Pulse Ox 100% on R/A; aj 17:33 Body Mass Index 27.26 (86.18 kg, 177.80 cm) MDM: 17:32 Patient medically screened. [facility] 17:45 Data reviewed: vital signs, nurses notes, lab test result(s), EKG, radiologic studies, [facility] CT scan, plain films. 02/22 17:42 Order name: Basic Metabolic Panel; Complete Time: 19:31 [facility] 02/22 17:42 Order name: CBC with Diff; Complete Time: 19:31 [facility] 02/22 17:42 Order name: Ckmb; Complete Time: 19:31 [facility] 02/22 17:42 Order name: CPK; Complete Time: 19:31 [facility] 02/22 17:42 Order name: LFT's; Complete Time: : [facility] 02/22 17:42 Order name: Magnesium; Complete Time: 19: [facility] 02/22 17:42 Order name: NT PRO-BNP; Complete Time: 19: [facility] 02/22 17:42 Order name: PT-INR; Complete Time: : [facility] 02/22 17:42 Order name: Ptt, Activated; Complete Time: : [facility] 02/22 17:42 Order name: Troponin (emerg Dept Use Only); Complete Time: 19: [facility] 02/22 17:42 Order name: Lipase; Complete Time: 19: [facility] 02/22 17:42 Order name: Blood Culture Adult (2) [facility] 02/22 17:42 Order name: Lactate; Complete Time: 18:40 [facility] 02/22 17:42 Order name: Procalcitonin; Complete Time: : [facility] 02/22 17:42 Order name: XRAY Chest (1 view); Complete Time: 19:31 [facility] 02/22 17:42 Order name: Flu; Complete Time: 19: [facility] 02/22 18:35 Order name: CBC Smear Scan; Complete Time: 19: [facility] 02/22 18:40 Order name: Urine Culture [facility] 02/22 18:58 Order name: Urine Dipstick--Ancillary (enter results); Complete Time: 19:31 rg2 02/22 19:09 Order name: Troponin I [facility] 02/22 19:09 Order name: Troponin I [facility] 02/22 17:42 Order name: EKG; Complete Time: 17:43 [facility] 02/22 17:42 Order name: Cardiac monitoring; Complete Time: 18:29 [facility] 02/22 17:42 Order name: EKG - Nurse/Tech; Complete Time: 18:29 [facility] 02/22 17:42 Order name: IV Saline Lock; Complete Time: 18:29 [facility] 02/22 17:42 Order name: Labs collected and sent; Complete Time: 18:29 [facility] 02/22 17:42 Order name: O2 Per Protocol; Complete Time: 18:30 [facility] 02/22 17:42 Order name: O2 Sat Monitoring; Complete Time: 18:30 [facility] 02/22 17:42 Order name: Urine Dipstick-Ancillary (obtain specimen); Complete Time: 21:11 [facility] 02/22 19:09 Order name: EKG Electrocardiogram EDMS 02/22 19:09 Order name: EKG Electrocardiogram EDMS Administered Medications: 18:25 Drug: Zithromax 500 mg Route: IVPB; Infused Over: 1 hrs; Site: left forearm; aj 21: Follow up: IV Status: Completed infusion aj 18:27 Drug: AtroVENT Aerosol 0.5 mg Route: Inhalation; aj 18:27 Drug: Rocephin - (cefTRIAXone) 1 grams Route: IVPB; Infused Over: 30 mins; Site: left aj forearm; : Follow up: Response: No adverse reaction; IV Status: Completed infusion; IV Intake: 50mlaj 18:28 Drug: NS 0.9% 500 ml Route: IV; Rate: bolus; Site: left forearm; aj 21:10 Follow up: Response: No adverse reaction; IV Status: Completed infusion; IV Intake: aj 500ml 18:28 Drug: NS 0.9% 1000 ml Route: IV; Rate: 125 ml/hr; Site: left forearm; aj 21:10 Follow up: Response: No adverse reaction; IV Status: Infusion continued upon admission; IV Intake: 450ml 18:28 Drug: SOLU-Medrol 125 mg Route: IVP; Site: left forearm; aj 21: Follow up: Response: No adverse reaction aj 18:28 Drug: Xopenex 2.5 mg Route: Inhalation; aj 18:49 Drug: NS 0.9% 1000 ml Route: IV; Rate: 1 bolus; Site: left forearm; aj 21: Follow up: Response: No adverse reaction; IV Status: Completed infusion; IV Intake: aj 1000ml 18:49 Drug: Tylenol 650 mg Route: PO; aj 21:06 Follow up: Response: Temperature is decreased aj 18:50 Drug: Rocephin - (cefTRIAXone) 1 grams Route: IVPB; Infused Over: 30 mins; Site: left aj forearm; 21:08 Follow up: IV Status: Completed infusion aj Disposition: 02/22/18 18:43 Hospitalization ordered by Darren Perry for Inpatient Admission. Preliminary diagnosis are Fever, unspecified, Acute upper respiratory infection, unspecified, Pneumonia due to other specified bacteria, Cystitis, Anemia, unspecified. - Bed requested for Telemetry/MedSurg (Inpatient). - Status is Inpatient Admission. aj - Condition is Fair. - Problem is new. - Symptoms have improved. UTI on Admission? Yes Signatures: Dispatcher [employer] EDMS PetersRomanYan rg2 Koki Horvath RN RN aj Anderson, Corey, MD MD cha Corrections: (The following items were deleted from the chart) 20:18 18:43 Hospitalization Ordered by Darren Perry MD for Inpatient Admission. Preliminary rg2 diagnosis is Fever, unspecified; Acute upper respiratory infection, unspecified; Pneumonia due to other specified bacteria; Cystitis; Anemia, unspecified. Bed requested for Telemetry/MedSurg (Inpatient). Status is Inpatient Admission. Condition is Fair. Problem is new. Symptoms have improved. UTI on Admission? Yes. [facility] 21:11 20:18 02/22/2018 18:43 Hospitalization Ordered by Darren Perry MD for Inpatient aj Admission. Preliminary diagnosis is Fever, unspecified; Acute upper respiratory infection, unspecified; Pneumonia due to other specified bacteria; Cystitis; Anemia, unspecified. Bed requested for Telemetry/MedSurg (Inpatient). Status is Inpatient Admission. Condition is Fair. Problem is new. Symptoms have improved. UTI on Admission? Yes. rg2
[2018-02-22] MEDS ORDERED: ACETAMINOPHEN 325 MG TABLET ONE (18:49)
--- NOTE | 2018-02-22 19:00 | RAD REPORT ---
EXAM DESCRIPTION: RAD - Chest Single View - 02/22/2018 6:54 pm CLINICAL HISTORY: Cough;COPD Chest pain. COMPARISON: Chest Single View dated 11/10/2017; Chest Pa And Lat (2 Views) dated 11/07/2017; Chest Pa And Lat (2 Views) dated 11/05/2017; Chest Pa And Lat (2 Views) dated 11/04/2017 FINDINGS: Portable technique limits examination quality. The lungs are mildly emphysematous but clear. The heart is normal in size. No displaced fractures. IMPRESSION: Mild COPD.
[2018-02-22 19:05] LABS: Urine Blood 1+ (NEG); Urine Glucose NEGATIVE (NEG); Urine Protein 1+ (NEG); Urine pH 6.5 (5.0-7.0)
[2018-02-22] MEDS ORDERED: IPRATROPIUM BROM 0.5MG/2.5ML NEB PRN (19:05)
[2018-02-22] MEDS ORDERED: ALBUTEROL 2.5 MG/3 ML NEB SOL NEB PRN (19:05)
[2018-02-22] MEDS ORDERED: ACETAMINOPHEN 500 MG TAB PO PRN (19:05)
[2018-02-22] MEDS ORDERED: ONDANSETRON 4 MG/2 ML VIAL IV PRN (19:05)
[2018-02-22 19:29] LABS: Platelet Estimate DECR; Urine White Blood Cell Casts OK
[2018-02-22 19:30] LABS: Anisocytosis 2+; Blood Morphology Comment NOTED (NOT SEEN); Polychromasia 1+
[2018-02-22] MEDS: NA CHLORIDE 0.9% 1,000 ML IV SCH (22:36)
[2018-02-23] MEDS: METHYLPREDNISOLONE 40 MG INJ IV SCH ×3 (00:20→16:24)
[2018-02-23 01:31] VITALS: BMI 25.5
[2018-02-23 03:27] LABS: Absolute Lymphocytes (CBC) 0.9 K/uL (0.7-4.9); Absolute Monocytes 0.2 K/uL (0.1-1.3); Absolute Neutrophil 3.3 K/uL (1.8-8.0); Basophils % 0.2 % (0-1.3); Eosinophils % 0.1 % (0-4.4); Hematocrit 34.8 % (39.6-49.0); MCH 29.6 pg (27.0-35.0); MCV 89.5 fL (80-100); MPV 8.6 fL (7.6-11.3); Monocytes % 4.7 % (3.3-12.3); RBC Red Blood Cell Count 3.89 M/uL (4.33-5.43)
[2018-02-23 03:39] LABS: BUN Blood Urea Nitrogen 12 mg/dL (7-18); Bicarbonate 22 mmol/L (21-32); Glucose Level 220 mg/dL (74-106); NT PRO-BNP 138 pg/mL (<450); Potassium 4.1 mmol/L (3.5-5.1); Sodium Level 138 mmol/L (136-145)
[2018-02-23] MEDS: NA CHLORIDE 0.9% 1,000 ML IV SCH ×3 (04:00→21:18)
[2018-02-23] MEDS ORDERED: CEFTRIAXONE/SWI 1gm 1 GM/10 ML SYR ONE (05:11)
--- NOTE | 2018-02-23 05:11 | P.HP ---
Certification for Inpatient Patient admitted to: Inpatient With expected LOS: >2 Midnights Patient will require the following post-hospital care: None Practitioner: I am a practitioner with admitting privileges, knowledge of patient current condition, hospital course, and medical plan of care. Services: Services provided to patient in accordance with Admission requirements found in Title 42 Section 412.3 of the Code of Federal Regulations Patient History Date of Service: 02/22/18 Reason for admission: Fever, dysuria, shortness of breath with cough & congestion History of Present Illness: Patient is a 77-year-old gentleman who was in the hospital a few months ago with the GI bleeding. 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 Patient states he was doing well until about 3-4 days ago. He started feeling like he was having shakes and chills. He went to the doctor and started on antibiotics-oral Omnicef. Patient continued to get worse. A few days ago he started running fever as well. He came into the emergency room and his workup revealed that he had a urinary tract infection. He also has had coughing & congestion, and it appears he may have an upper respiratory tract infection with COPD exacerbation as he was short of breath in the emergency room. Patient has thrombocytopenia but his anemia is stable. His protime is elevated as well as having hypoalbuminemia. He has a meld score of 11. At this time, will go ahead and treated with IV antibiotics. Will monitor his labs closely. Repeat his chest x -ray in the morning. Allergies No Known Allergies Allergy (Verified 02/23/18 00:49) Home Medications: Carvedilol [Coreg*] 1 tab PO BID 11/08/17 Furosemide [Lasix*] 1 tab PO DAILY 11/08/17 Mometasone/Formoterol [Dulera 200 Mcg/5 Mcg Inhaler] 2 puff IH BID #1 inhaler Spironolactone 1 tab PO DAILY 11/08/17 Pantoprazole [Protonix Tab*] 40 mg PO BIDAC tab 11/14/17 Tamsulosin [Flomax*] 0.4 mg PO DAILY cap 11/14/17 Docusate [Colace Cap*] 100 mg PO BID 11/30/17 Insulin -Regular Human [Novolin -R*] See Protocol SQ ACHS 11/30/17 Insulin Detemir [Levemir*] 15 unit SQ BEDTIME 11/30/17 Insulin Detemir [Levemir*] 25 unit SQ DAILY 11/30/17 Simvastatin 20 mg PO BEDTIME 11/30/17 - Past Medical/Surgical History Has patient received pneumonia vaccine in the past: No Diabetic: Yes -: Diabetes mellitus type 2 -: CAD -: Liver cirrhosis -: COPD -: Former tobacco use -: Alcohol use -: HTN -: GERD -: History of angiodysplasia requiring ablation -: Anemia -: cataracat sx rob eye. Psychosocial/ Personal History: The patient lives with a friend. He is . He has several children that he is not in contact with. - Family History Father Medical History: Stroke, Cancer Brother Medical History: Stroke, Cancer Mother Medical History: Diabetes - Social History Smoking Status: Current every day smoker Alcohol use: Yes CD- Drugs: No Caffeine use: Yes Place of Residence: Home Review of Systems 10-point ROS is otherwise unremarkable Physical Examination - Vital Signs Temperature: 97 F Blood Pressure: 146/60 Pulse: 68 Respirations: 20 Pulse Ox (%): 95 - Physical Exam General: Alert, In no apparent distress, Oriented x3 HEENT: Atraumatic, PERRLA, Mucous membr. moist/pink, EOMI, Sclerae nonicteric Neck: Supple, 2+ carotid pulse no bruit, No LAD, Without JVD or thyroid abnormality Respiratory: Diminished, Crackles/rales Cardiovascular: Regular rate/rhythm, Normal S1 S2, No murmurs Gastrointestinal: Normal bowel sounds, Soft and benign, Non-distended, No tenderness Musculoskeletal: No clubbing, No swelling, No tenderness Integumentary: No rashes Neurological: Normal gait, Normal speech, Normal strength at 5/5 x4 extr, Normal tone, Sensation intact, Cranial nerves 3-12 intact, Normal affect Lymphatics: No axilla or inguinal lymphadenopathy - Studies Laboratory Data (last 24 hrs) 02/22/18 18:00: PT 17.0 H, INR 1.44, APTT 34.6 02/22/18 18:00: WBC 8.3, Hgb 11.7 L, Hct 35.2 L, Plt Count 77 L 02/22/18 18:00: Sodium 133 L, Potassium 3.5, BUN 8, Creatinine 0.70, Glucose 95 , Magnesium 1.8, Total Bilirubin 1.4 H, AST 58 H, ALT 27, Alkaline Phosphatase 86, Lipase 322 Microbiology Data (last 24 hrs): 02/22/18 18:00 Nasopharnyx Influenza Type A Antigen Screen - Final 02/22/18 18:00 Nasopharnyx Influenza Type B Antigen Screen - Final Assessment & Plan - Problems (Diagnosis) (1) Cough Current Visit: No Status: Acute (2) Pneumonia Onset Date: 11/05/17 Current Visit: No Status: Acute Qualifiers: Pneumonia type: due to unspecified organism Laterality: bilateral Lung location: lower lobe of lung Qualified Code(s): J18.1 - Lobar pneumonia, unspecified organism (3) Shortness of breath Onset Date: 11/05/17 Current Visit: No Status: Acute (4) UTI (urinary tract infection) Current Visit: No Status: Acute Qualifiers: Urinary tract infection type: site unspecified Hematuria presence: without hematuria Qualified Code(s): N39.0 - Urinary tract infection, site not specified (5) Angiodysplasia of duodenum Onset Date: 12/01/17 Current Visit: No Status: Chronic (6) CAD (coronary artery disease) Onset Date: 11/05/17 Current Visit: No Status: Chronic Qualifiers: (7) COPD (chronic obstructive pulmonary disease) Onset Date: 11/05/17 Current Visit: No Status: Chronic Qualifiers: COPD type: chronic bronchitis (8) Cirrhosis of liver Onset Date: 11/05/17 Current Visit: No Status: Chronic Qualifiers: Hepatic cirrhosis type: alcoholic cirrhosis Ascites presence: without ascites Qualified Code(s): K70.30 - Alcoholic cirrhosis of liver without ascites (9) Diabetes mellitus Onset Date: 11/05/17 Current Visit: No Status: Chronic Qualifiers: Diabetes mellitus type: type 2 Diabetes mellitus intermediate insulin use: without truck terminal 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 IV antibiotics as patient failed outpatient oral antibiotics 2. Repeat chest x-ray in the morning 3. Nebs as needed 4. Monitor CBC as patient has thrombocytopenia 5. Strict blood pressure and blood sugar control 6. GI and DVT prophylaxis Discharge Plan: Home Plan to discharge in: Greater than 2 days - Advance Directives Does patient have a Living Will: No Does patient have a Durable POA for Healthcare: No - Code Status/Comfort Care Code Status Assessed: Yes Code Status: Full Code Critical Care: No Time Spent Managing PTS Care (In Minutes): 50
[2018-02-23] MEDS ORDERED: CEFTRIAXONE 1 GM/NS 50 ML 1 GM/50 ML BAG IV SCH (06:00)
[2018-02-23] MEDS ORDERED: PNEUMOCOCCAL VACCINE 0.5 ML IMVAC ONE (08:00)
--- NOTE | 2018-02-23 08:50 | RAD REPORT ---
EXAM DESCRIPTION: RAD - Chest Single View - 02/23/2018 6:36 am CLINICAL HISTORY: Chest pain COMPARISON: February 22 TECHNIQUE: AP portable chest image was obtained 0620 hours . FINDINGS: No new or progressive lung parenchymal finding. Markings are similar to comparison. Heart size and vasculature within normal limits. No measurable pleural effusion and no pneumothorax. No gregorio ss bony abnormality seen. No acute aortic findings suspected. IMPRESSION: Stable chest. No new or progressive finding from February 22.
[2018-02-23] MEDS ORDERED: AZITHROMYCIN IV 500 MG in NA CHLORIDE 0.9% 250 ML IVPB SCH ×2 (09:00→17:00)
[2018-02-23] MEDS: ASPIRIN EC 81 MG TAB PO SCH (09:30)
[2018-02-23] MEDS ORDERED: GLUCAGON 1 MG/VIAL IM PRN (11:36)
[2018-02-23] MEDS ORDERED: D50W 25 GM/50 ML SYRINGE IV PRN (11:36)
--- NOTE | 2018-02-23 14:47 | EKG ---
Test Date: 2018-02-23 Test Time: 07:54:35 Machine Deicer Element Winder: BJ MEASUREMENT RESULTS: Intervals: Rate: 69 VT: 212 QRSD: 98 QT: 432 QTc: 462 [place]: P: 69 VT: 212 QRS: 32 T: 56 INTERPRETIVE STATEMENTS: Sinus rhythm with 1st degree AV block Otherwise normal ECG Compared to ECG 11/10/2017 19:03:22 First degree AV block now present Electronically Signed On 02-23-18 14:45:14 CDT by Manny Diaz
--- NOTE | 2018-02-23 16:10 | P.PN ---
Subjective Date of Service: 02/23/18 Chief Complaint: Fever, dysuria, shortness of breath with cough & congestion Subjective: No C/O voiced, Tolerating diet, Improving, Doing well Review of Systems General: As per HPI Physical Examination - Vital Signs Temperature: 97.0 F Blood Pressure: 158/70 Pulse: 66 Respirations: 18 Pulse Ox (%): 97 - Physical Exam General: Alert, In no apparent distress, Oriented x3 HEENT: Atraumatic, PERRLA, EOMI Neck: Supple, JVD not distended Respiratory: Clear to auscultation bilaterally, Normal air movement Cardiovascular: Regular rate/rhythm, Normal S1 S2 Gastrointestinal: Normal bowel sounds, Soft and benign, Non-distended, No tenderness Musculoskeletal: No tenderness Integumentary: No rashes Neurological: Normal speech, Normal tone, Normal affect Lymphatics: No axilla or inguinal lymphadenopathy - Studies Laboratory Data (last 24 hrs) 02/22/18 18:00: PT 17.0 H, INR 1.44, APTT 34.6 02/22/18 18:00: WBC 8.3, Hgb 11.7 L, Hct 35.2 L, Plt Count 77 L 02/22/18 18:00: Sodium 133 L, Potassium 3.5, BUN 8, Creatinine 0.70, Glucose 95 , Magnesium 1.8, Total Bilirubin 1.4 H, AST 58 H, ALT 27, Alkaline Phosphatase 86, Lipase 322 Microbiology Data (last 24 hrs): 02/22/18 18:00 Nasopharnyx Influenza Type A Antigen Screen - Final 02/22/18 18:00 Nasopharnyx Influenza Type B Antigen Screen - Final Medications List Reviewed: Yes Assessment & Plan - Problems (Diagnosis) (1) UTI (urinary tract infection) Current Visit: No Status: Acute Plan: UA with UTI and urine culture + for gram - rods -IV rocephin and Azithromycin -F.u with culture Qualifiers: Urinary tract infection type: acute cystitis Hematuria presence: without hematuria Qualified Code(s): N30.00 - Acute cystitis without hematuria (2) Pneumonia Onset Date: 11/05/17 Current Visit: No Status: Acute Plan: Left sided PNA. Most likely CAP -IV azithromycin and Rocephin -Sputum Culture and blood Culture pending -Will f.u with labs and Culture Qualifiers: Pneumonia type: due to unspecified organism Laterality: bilateral Lung location: lower lobe of lung Qualified Code(s): J18.1 - Lobar pneumonia, unspecified organism (3) CAD (coronary artery disease) Onset Date: 11/05/17 Current Visit: No Status: Chronic Qualifiers: Coronary Disease-Associated Artery/Lesion type: curyung artery Craig vs. transplanted heart: curyung heart Associated angina: without angina Qualified Code(s): I25.10 - Atherosclerotic heart disease of curyung coronary artery without angina pectoris (4) COPD (chronic obstructive pulmonary disease) Onset Date: 11/05/17 Current Visit: No Status: Chronic Qualifiers: COPD type: chronic bronchitis (5) Diabetes mellitus Onset Date: 11/05/17 Current Visit: No Status: Chronic Qualifiers: Diabetes mellitus type: type 2 Diabetes mellitus fisher insulin use: without shelter use Diabetes mellitus complication status: with other specified complication Qualified Code(s): E11.69 - Type 2 diabetes mellitus with other specified complication (6) GERD (gastroesophageal reflux disease) Onset Date: 11/05/17 Current Visit: No Status: Chronic Qualifiers: Esophagitis presence: without esophagitis Qualified Code(s): K21.9 - Gastro -esophageal reflux disease without esophagitis (7) Hypertension Onset Date: 11/05/17 Current Visit: No Status: Chronic Qualifiers: Hypertension type: essential hypertension Discharge Plan: Home Plan to discharge in: 48 Hours - Code Status/Comfort Care Code Status Assessed: Yes Critical Care: No
[2018-02-23] MEDS: INSULIN -REGULAR HUMAN 50 UNIT/0.5 ML ML SQ SCH ×2 (16:24→21:16)
[2018-02-23] MEDS: CEFTRIAXONE/SWI 1gm 1 GM/10 ML SYR IV SCH (17:09)
[2018-02-23] MEDS: PANTOPRAZOLE 40MG TABLET PO SCH (17:09)
[2018-02-23] MEDS ORDERED: HOME MED 1 EA UNK (Simvastatin [Simvastatin] 20 MG) PO SCH (21:00)
[2018-02-23] MEDS: ATORVASTATIN 10 MG TAB PO SCH (21:18)
[2018-02-23] MEDS: CARVEDILOL 3.125 MG TAB PO SCH (21:18)
[2018-02-24] MEDS: METHYLPREDNISOLONE 40 MG INJ IV SCH ×2 (00:05→09:54)
[2018-02-24] MEDS: NA CHLORIDE 0.9% 1,000 ML IV SCH ×2 (03:29→13:18)
[2018-02-24] MEDS: CEFTRIAXONE/SWI 1gm 1 GM/10 ML SYR IV SCH ×2 (05:33→17:15)
[2018-02-24] MEDS: ASPIRIN EC 81 MG TAB PO SCH (08:38)
[2018-02-24] MEDS: FUROSEMIDE 40 MG TABLET PO SCH (08:39)
[2018-02-24] MEDS: PANTOPRAZOLE 40MG TABLET PO SCH ×2 (08:39→15:54)
[2018-02-24] MEDS: CARVEDILOL 3.125 MG TAB PO SCH ×2 (08:39→20:41)
[2018-02-24] MEDS: SPIRONOLACTONE 25 MG TABLET PO SCH (08:40)
[2018-02-24] MEDS: TAMSULOSIN 0.4 MG SR CAP PO SCH (08:40)
[2018-02-24] MEDS: INSULIN -REGULAR HUMAN 50 UNIT/0.5 ML ML SQ SCH ×4 (08:44→20:41)
--- NOTE | 2018-02-24 14:11 | P.PN ---
Subjective Date of Service: 02/24/18 Chief Complaint: Fever, dysuria, shortness of breath with cough & congestion Patient seen and examined at bedside with RN. Chart reviewed. Case discussed with family member at bedside and patient. Patient currently is doing better. Blood cultures positive for Gram negative rods. Urine culture positive for Gram negative rods. Will await cultures at this time Review of Systems 10-point ROS is otherwise unremarkable Physical Examination - Vital Signs Temperature: 97.4 F Blood Pressure: 172/75 Pulse: 66 Respirations: 17 Pulse Ox (%): 98 - Physical Exam General: Alert, In no apparent distress, Oriented x3 HEENT: Atraumatic, PERRLA, EOMI Neck: Supple, JVD not distended Respiratory: Clear to auscultation bilaterally, Normal air movement Cardiovascular: Regular rate/rhythm, Normal S1 S2 Gastrointestinal: Normal bowel sounds, No tenderness Musculoskeletal: No tenderness Integumentary: No rashes Neurological: Normal speech, Normal tone, Normal affect Lymphatics: No axilla or inguinal lymphadenopathy - Studies Medications List Reviewed: Yes Assessment & Plan - Problems (Diagnosis) (1) UTI (urinary tract infection) Current Visit: No Status: Acute Plan: UA with UTI and urine culture + for gram - rods -IV rocephin and Azithromycin -F.u with culture Qualifiers: Urinary tract infection type: acute cystitis Hematuria presence: without hematuria Qualified Code(s): N30.00 - Acute cystitis without hematuria (2) Pneumonia Onset Date: 11/05/17 Current Visit: No Status: Acute Plan: Left sided PNA. Most likely CAP -IV azithromycin and Rocephin -Sputum Culture and blood Culture pending -Will f.u with labs and Culture Qualifiers: Pneumonia type: due to unspecified organism Laterality: bilateral Lung location: lower lobe of lung Qualified Code(s): J18.1 - Lobar pneumonia, unspecified organism (3) CAD (coronary artery disease) Onset Date: 11/05/17 Current Visit: No Status: Chronic Qualifiers: Coronary Disease-Associated Artery/Lesion type: [place] artery [place] vs. 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 use Diabetes mellitus complication status: with other specified complication Qualified Code(s): E11.69 - Type 2 diabetes mellitus with other specified complication (6) GERD (gastroesophageal reflux disease) Onset Date: 11/05/17 Current Visit: No Status: Chronic Qualifiers: Esophagitis presence: without esophagitis Qualified Code(s): K21.9 - Gastro -esophageal reflux disease without esophagitis (7) Hypertension Onset Date: 11/05/17 Current Visit: No Status: Chronic Qualifiers: Hypertension type: essential hypertension Discharge Plan: Other Plan to discharge in: 48 Hours - Code Status/Comfort Care Code Status Assessed: Yes Critical Care: No
[2018-02-24] MEDS: ATORVASTATIN 10 MG TAB PO SCH (20:41)
[2018-02-25] MEDS: CEFTRIAXONE/SWI 1gm 1 GM/10 ML SYR IV SCH (05:21)
[2018-02-25] MEDS: INSULIN -REGULAR HUMAN 50 UNIT/0.5 ML ML SQ SCH ×2 (08:40→11:45)
[2018-02-25] MEDS: TAMSULOSIN 0.4 MG SR CAP PO SCH (08:41)
[2018-02-25] MEDS: SPIRONOLACTONE 25 MG TABLET PO SCH (08:41)
[2018-02-25] MEDS: ASPIRIN EC 81 MG TAB PO SCH (08:41)
[2018-02-25] MEDS: PANTOPRAZOLE 40MG TABLET PO SCH (08:42)
[2018-02-25] MEDS: CARVEDILOL 3.125 MG TAB PO SCH (08:42)
[2018-02-25] MEDS: FUROSEMIDE 40 MG TABLET PO SCH (08:42)
[2018-02-25 08:44] VITALS: BP 184/74
[2018-02-25 08:55] VITALS: TEMP 97.5
[2018-02-25 09:41] VITALS: O2SAT 98
--- NOTE | 2018-02-25 15:37 | P.DS ---
Admission Date: 02/22/18 Discharge Date: 02/25/18 Disposition: ROUTINE DISCHARGE Discharge Condition: GOOD Reason for Admission: Fever, dysuria, shortness of breath with cough & congestion - Problems (1) UTI (urinary tract infection) Status: Acute Qualifiers: Urinary tract infection type: acute cystitis Hematuria presence: without hematuria Qualified Code(s): N30.00 - Acute cystitis without hematuria (2) Pneumonia Onset Date: 11/05/17 Status: Acute Qualifiers: Pneumonia type: due to unspecified organism Laterality: bilateral Lung location: lower lobe of lung Qualified Code(s): J18.1 - Lobar pneumonia, unspecified organism (3) CAD (coronary artery disease) Onset Date: 11/05/17 Status: Chronic Qualifiers: Coronary Disease-Associated Artery/Lesion type: [place] artery [place] vs. 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 insulin use: without senior care use Diabetes mellitus complication status: with other specified complication Qualified Code(s): E11.69 - Type 2 diabetes mellitus with other specified complication (6) GERD (gastroesophageal reflux disease) Onset Date: 11/05/17 Status: Chronic Qualifiers: Esophagitis presence: without esophagitis Qualified Code(s): K21.9 - Gastro -esophageal reflux disease without esophagitis (7) Hypertension Onset Date: 11/05/17 Status: Chronic Qualifiers: Hypertension type: essential hypertension Brief History of Present Illness: Patient is a 77-year-old gentleman who was in the hospital a few months ago with the GI bleeding. 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 Patient was diagnosed with cirrhosis, and he was discharged to follow up with GI and a rn hospital. Patient states he was doing well until about 3-4 days ago. He started feeling like he was having shakes and chills. He went to the doctor and started on antibiotics-oral Omnicef. Patient continued to get worse. A few days ago he started running fever as well. He came into the emergency room and his workup revealed that he had a urinary tract infection. He also has had coughing & congestion, and it appears he may have an upper respiratory tract infection with COPD exacerbation as he was short of breath in the emergency room. Patient has thrombocytopenia but his anemia is stable. His protime is elevated as well as having hypoalbuminemia. He has a meld score of 11. At this time, will go ahead and treated with IV antibiotics. Will monitor his labs closely. Repeat his chest x -ray in the morning. Hospital Course: Overall during the hospital stay patient main stable Patient was initially admitted to the hospital for sepsis most likely secondary to urinary tract infection and pneumonia. Patient was started on IV antibiotics here in the hospital. Patient had a urine culture done which was positive for Salmonella. Blood culture was positive for Gram negative rods. Patient was switched over to p.o. antibiotics that were sensitive to Salmonella. Patient initially was recommended to do a inpatient rehab versus halfway facility however patient did well overall here after ambulating 250 feet and was going down for small breaks as well. Patient was thus discharged home under stable condition was asked to take p.o. Levaquin 500 mg for total of 10 days. Patient was also asked to follow up with the primary care provider in about 2-3 weeks post discharge. Vital Signs/Physical Exam: Temp Pulse Resp BP Pulse Ox 97.5 F 60 18 184/74 H 99 02/25/18 08:00 02/25/18 08:42 02/25/18 08:00 02/25/18 08:42 02/25/18 08:00 General: Alert, In no apparent distress HEENT: Atraumatic, PERRLA, EOMI Neck: Supple, JVD not distended Respiratory: Clear to auscultation bilaterally, Normal air movement Cardiovascular: Regular rate/rhythm, Normal S1 S2 Gastrointestinal: Normal bowel sounds, No tenderness Musculoskeletal: No tenderness Integumentary: No rashes Neurological: Normal speech, Normal tone, Normal affect Lymphatics: No axilla or inguinal lymphadenopathy Laboratory Data at Discharge: WBC 4.4 K/uL (4.3-10.9) D 02/23/18 02:59 Hgb 11.5 g/dL (13.6-17.9) L 02/23/18 02:59 Hct 34.8 % (39.6-49.0) L 02/23/18 02:59 Plt Count 65 K/uL (152-406) L 02/23/18 02:59 PT 17.0 SECONDS (9.5-12.5) H 02/22/18 18:00 INR 1.44 02/22/18 18:00 APTT 34.6 SECONDS (24.3-36.9) 02/22/18 18:00 Sodium 138 mmol/L (136-145) 02/23/18 02:59 Potassium 4.1 mmol/L (3.5-5.1) 02/23/18 02:59 BUN 12 mg/dL (7-18) 02/23/18 02:59 Creatinine 0.70 mg/dL (0.55-1.3) 02/23/18 02:59 Glucose 220 mg/dL (74-106) H 02/23/18 02:59 Magnesium 1.8 mg/dL (1.8-2.4) 02/22/18 18:00 Total Bilirubin 1.4 mg/dL (0.2-1.0) H 02/22/18 18:00 AST 58 U/L (15-37) H 02/22/18 18:00 ALT 27 U/L (12-78) 02/22/18 18:00 Alkaline Phosphatase 86 U/L (45-117) 02/22/18 18:00 Troponin I < 0.02 ng/mL (0.0-0.045) 02/23/18 02:59 Lipase 322 U/L (73-393) 02/22/18 18:00 Home Medications: Spironolactone 1 tab PO DAILY 11/08/17 Pantoprazole [Protonix Tab*] 40 mg PO BIDAC tab 11/14/17 Tamsulosin [Flomax*] 0.4 mg PO DAILY cap 11/14/17 Insulin Detemir [Levemir*] 15 unit SQ BEDTIME 11/30/17 Insulin Detemir [Levemir*] 25 unit SQ DAILY 11/30/17 Simvastatin 20 mg PO BEDTIME 11/30/17 Carvedilol [Coreg*] 3.125 mg PO BID 02/23/18 Furosemide [Lasix*] 40 mg PO DAILY 02/23/18 Levofloxacin [Levaquin] 500 mg PO DAILY #14 tablet 02/25/18 New Medications: Levofloxacin [Levaquin] 500 mg PO DAILY #14 tablet Patient Discharge Instructions: Please f.u with PCP in 1 to 2 weeks post discharge. New medication. Levaquin 500mg daily for 14 days Diet: Regular Activity: Ad barrera
== END 2018-02-25 13:39 | disposition home health service (06) | DRG 871 ==
LOC: ER 17:28 → ERHOLD 18:44 → 4TH 20:25
PROVIDERS: ADMIT Hospitalist; ATTEND Family Medicine
DX: A02.1 Salmonella sepsis (principal); J18.1 Lobar pneumonia, unspecified organism; N39.0 Urinary tract infection, site not specified; I25.10 Atherosclerotic heart disease of native coronary artery without angina pectoris; K70.30 Alcoholic cirrhosis of liver without ascites; D69.6 Thrombocytopenia, unspecified; I10 Essential (primary) hypertension; Z79.4 Long term (current) use of insulin; R79.1 Abnormal coagulation profile; E11.9 Type 2 diabetes mellitus without complications; D64.9 Anemia, unspecified; E78.5 Hyperlipidemia, unspecified; I25.2 Old myocardial infarction; K21.9 Gastro-esophageal reflux disease without esophagitis; J42 Unspecified chronic bronchitis
CPT/HCPCS: 36415; 71045; 80048; 80076; 81003; 82550; 82553; 82962; 83605; 83690; 83735; 83880; 84145; 84484; 85025; 85610; 85730; 87040; 87077; 87086; 87088; 87186; 87205; 87804; 90670; 93005; 94760; 96365; 96366; 96375; 97163; 99284; G0009; J0456; J0696; J2920; J2930; J7030

== ENCOUNTER 2018-04-03 17:03 | Inpatient (IN) | payer OTHER ==
[2018-04-03 18:25] LABS: Absolute Lymphocytes (CBC) 0.8 K/uL (0.7-4.9); Absolute Monocytes 1.5 K/uL (0.1-1.3); Absolute Neutrophil 5.9 K/uL (1.8-8.0); Basophils % 0.3 % (0-1.3); Eosinophils % 0.2 % (0-4.4); Hematocrit 29.2 % (39.6-49.0); Lymphocytes % 9.2 % (15.3-44.8); MPV 9.5 fL (7.6-11.3); Monocytes % 17.7 % (3.3-12.3)
[2018-04-03 18:34] LABS: Albumin 2.9 g/dL (3.4-5.0); Bilirubin Total 2.5 mg/dL (0.2-1.0); Potassium 3.1 mmol/L (3.5-5.1); Protein, Total 7.4 g/dL (6.4-8.2)
[2018-04-03 18:47] LABS: Blood Morphology Comment NOT SEEN (NOT SEEN); Platelet Estimate DECR; Urine White Blood Cell Casts OK
--- NOTE | 2018-04-03 19:54 | RAD REPORT ---
EXAM DESCRIPTION: CT - Chest Abdomen Pelvis W Cont - 04/03/2018 6:59 pm CLINICAL HISTORY: Chest and abdomen pain. fall, left sided bruising, abdominal pain COMPARISON: Abdomen Pelvis Wo Contrast dated 11/04/2017 TECHNIQUE: Approximately 100 mL nonionic IV contrast was administered to the patient. All CT scans are performed using dose optimization technique as appropriate and may include automated exposure control or mA/KV adjustment according to patient size. FINDINGS: The lungs are clear.No pleural or pericardial effusion.No intrathoracic adenopathy.The bon es are osteopenic. Nondisplaced fractures involving left anterolateral sixth, seventh and eighth ribs suspected. The liver is prominent in size with evidence of cirrhosis. Significant splenomegaly is present. Sever al gallstones are present in the gallbladder. The pancreas is within normal limits. The right adrenal gland is normal. There is moderate thickening of the left adrenal gland. Splenorenal varices are pre sent. The right kidney contains a cyst in the inferior pole otherwise unremarkable. The left kidney c ontains a masslike lesion emanating from the superior pole measuring 19 x 13 mm. Moderate aortoiliac atherosclerosis. No bowel obstruction, free air, free fluid or abscess. Normal appendix. No pathologic lymphadenopath y in the abdomen or pelvis. Prominent lumbosacral degenerative changes. Significant thickening of the urinary bladder wall is see n. IMPRESSION: Masslike lesion emanating from the superior left kidney (19 x 13 mm). The findings is qu ite worrisome for neoplasia.MRI of the kidneys without and with contrast would be recommended for fur ther assessment. Nondisplaced hairline fractures of the left anterolateral sixth, seventh and eighth rib. Cholelithiasis. Liver cirrhosis with splenomegaly and portal hypertension.
[2018-04-03 20:35] LABS: Urine Bacteria LOADED /HPF (NONE SEEN); Urine RBC <5 /HPF (NONE SEEN)
[2018-04-03 20:36] LABS: Urine Culture Reflex Order REFLEXED
[2018-04-03 20:39] LABS: Urine Blood 2+ (NEG); Urine Glucose NEGATIVE (NEG); Urine Protein 2+ (NEG); Urine pH 6.5 (5.0-7.0)
[2018-04-03 20:53] LABS: CKMB Creatine Kinase MB < 1.0 ng/mL (0.3-3.6); Creatine Phosphokinase 448 U/L (39-308)
--- NOTE | 2018-04-03 20:56 | EDPHYS ---
Physician Documentation [facility] Name: Jean Lucio III Age: 77 yrs Sex: Male : 1940 Arrival Date: 04/03/2018 Time: 17:06 Bed 23 Private MD: Colin Garcia E ED Physician Jose Alcantara HPI: 04/03 17:36 This 77 yrs old Male presents to ER via Wheelchair with complaints of Fall. [facility] 17:36 Details of fall: The patient fell from an upright position, while walking. Onset: The [facility] symptoms/episode began/occurred acutely, just prior to arrival. Associated injuries: The patient sustained. This is a 77 year old male with a history of anemia, COPD, kidney cancer, DM, HTN that presents to the ED with left sided pain after a fall which he states occurred when his legs became weak. Patient denies LOC, head injury. Patient denies chest pain or shortness of breath. Historical: - Allergies: 17:22 No Known Allergies; aj1 - Home Meds: 17:22 carvedilol 3.125 mg Oral tab 1 tab 2 times per day [Active]; cefdinir 300 mg Oral cap 1 aj1 cap every 12 hours [Active]; Colace 100 mg Oral cap 1 cap 2 times per day [Active]; dulera [Active]; Iron CR Oral [Active]; Lasix 40 mg Oral tab 1 tab once daily [Active]; levemir [Active]; lisinopril 2.5 mg Oral tab 1 tab once daily [Active]; neomycin 500 mg Oral tab 3 times per day [Active]; NOVOLOG [Active]; pantoprazole 40 mg Oral TbEC 1 tab 2 times per day [Active]; potassium chloride 10 mEq Oral cpER 1 cap once daily [Active]; simvastatin 20 mg Oral tab 1 tab once daily [Active]; spironolactone 25 mg Oral tab 1 tab once daily [Active]; tamsulosin 0.4 mg Oral cp24 1 cap once daily [Active]; - PMHx: 17:22 Anemia; COPD; diagnosed with cancer at [place], did not seek treatment; Hyperlipidemia; aj1 Hypertension; Myocardial infarction; - Immunization history:: Flu vaccine status is unknown. - Social history:: Smoking status: Patient uses tobacco products, 5 cigarettes per day. - Ebola Screening: : Patient denies travel to an Ebola-affected area in the 21 days before illness onset. ROS: 17:36 Constitutional: Negative for fever, chills, and weight loss, Cardiovascular: Negative jmm for chest pain, palpitations, and edema, Respiratory: Negative for shortness of breath, cough, wheezing, and pleuritic chest pain. 17:36 : Negative for injury, bleeding, discharge, and swelling. 17:36 Abdomen/GI: Positive for abdominal pain. 17:36 Back: Positive for pain at rest. 17:36 MS/extremity: Positive for hip pain. 17:36 Skin: Positive for 17:36 All other systems are negative. Exam: 17:36 Head/Face: atraumatic. Eyes: EOMI, no conjunctival erythema appreciated jmm 17:36 Constitutional: The patient appears in no acute distress, alert, awake. 17:36 Chest/axilla: pain is elicited on palpation of the left lateral ribs, ecchymosis noted. 17:36 Cardiovascular: Rate: normal, Rhythm: regular, Pulses: no pulse deficits are appreciated. 17:36 Respiratory: the patient does not display signs of respiratory distress, Respirations: normal, Breath sounds: are clear throughout. 17:36 Abdomen/GI: Inspection: bruising, left upper quadrant and left lower quadrant, Bowel sounds: normal, Palpation: soft, mild abdominal tenderness, in the left upper quadrant and left lower quadrant. 17:36 Abdomen/GI: Rectal exam: rectal tone normal, Stool: normal. 17:36 Back: vertebral tenderness, is not appreciated. 17:36 Musculoskeletal/extremity: ecchymosis noted to the left ASIS. 17:36 Skin: multiple areas of ecchymosis noted ot the left lateral trunk and left abdomen. 17:36 Neuro: Orientation: is normal, Mentation: is normal. 17:36 Psych: Behavior/mood is pleasant, cooperative. Vital Signs: 17:22 BP 129 / 106; Pulse 93; Resp 20; Temp 99.3(TE); Pulse Ox 96% on R/A; Weight 83.01 kg aj1 (R); Height 5 ft. 11 in. (180.34 cm) (R); Pain 8/10; 18:10 BP 165 / 56; Pulse 81; Resp 18; Temp 99.8(O); Pulse Ox 95% on R/A; la1 19:15 BP 132 / 52 LA Supine (auto/reg); Pulse 80; Resp 20 S; Pulse Ox 100% on R/A; jp3 20:37 BP 155 / 55; Pulse 77; Resp 18; Temp 99.2(O); Pulse Ox 96% on R/A; la1 17:22 Body Mass Index 25.52 (83.01 kg, 180.34 cm) aj1 MDM: 17:36 Patient medically screened. [facility] 19:50 Data reviewed: vital signs, nurses notes. Counseling: I had a detailed discussion with christen the patient and/or guardian regarding: the historical points, exam findings, and any diagnostic results supporting the discharge/admit diagnosis. 04/03 17:37 Order name: CBC with Diff; Complete Time: 18:49 [facility] 04/03 17:37 Order name: Creatinine for Radiology; Complete Time: 18:38 [facility] 04/03 17:37 Order name: CMP; Complete Time: 18:38 [facility] 04/03 18:30 Order name: CBC Smear Scan; Complete Time: 18:49 [facility] 04/03 19:32 Order name: Type And Screen; Complete Time: 21:11 [facility] 04/03 19:32 Order name: Troponin (emerg Dept Use Only); Complete Time: 20:34 [facility] 04/03 17:37 Order name: CT Chest, Abdomen, Pelvis - W/Contrast; Complete Time: 19:57 [facility] 04/03 19:34 Order name: Occult Blood [facility] 04/03 20:09 Order name: Urine Microscopic Only; Complete Time: 20:44 la1 04/03 20:10 Order name: Occult Blood--Ancillary 04/03 20:11 Order name: Urine Dipstick--Ancillary (enter results); Complete Time: 20:44 2 04/03 20:20 Order name: CPK; Complete Time: 20:54 [facility] 04/03 20:20 Order name: Ckmb; Complete Time: 20:54 [facility] 04/03 20:36 Order name: Urine Culture [facility] 04/03 19:32 Order name: EKG - Nurse/Tech; Complete Time: 19:57 [facility] 04/03 19:34 Order name: Urine Dipstick-Ancillary (obtain specimen); Complete Time: 20:08 [facility] Administered Medications: 20:56 Drug: Rocephin - (cefTRIAXone) 1 grams Route: IVPB; Infused Over: 30 mins; Site: right la1 forearm; 21:28 Follow up: IV Status: Completed infusion fc Disposition: 04/04 10:02 Co-signature as Attending Physician, Jose Alcantara MD. rn Disposition: 04/03/18 20:56 Hospitalization ordered by Shelly Yarbrough for Observation. Preliminary diagnosis are Multiple fractures of ribs, left side, Urinary tract infection, site not specified. - Bed requested for Telemetry/MedSurg (observation). - Status is Observation. la1 - Condition is Stable. - Problem is new. - Symptoms are unchanged. UTI on Admission? Yes Signatures: Dispatcher [employer] EDMS Mary Shaw RN RN ajKeely Macias RN RN kl Mickail, Joel, PA PA jmm Nieto, Roman, MD MD rn Attema, Lee, RN RN la1 Kim Barbosa RN Corrections: (The following items were deleted from the chart) 04/03 21:14 20:56 Hospitalization Ordered by Shelly Yarbrough MD for Observation. Preliminary kl diagnosis is Multiple fractures of ribs, left side; Urinary tract infection, site not specified. Bed requested for Telemetry/MedSurg (observation). Status is Observation. Condition is Stable. Problem is new. Symptoms are unchanged. UTI on Admission? Yes. [facility] 21:35 21:14 04/03/2018 20:56 Hospitalization Ordered by Shelly Yarbrough MD for Observation. la1 Preliminary diagnosis is Multiple fractures of ribs, left side; Urinary tract infection, site not specified. Bed requested for Telemetry/MedSurg (observation). Status is Observation. Condition is Stable. Problem is new. Symptoms are unchanged. UTI on Admission? Yes. kl
--- NOTE | 2018-04-03 20:56 | ER ---
Nurse's Notes [facility] Name: Jean Lucio III Age: 77 yrs Sex: Male : 1940 Arrival Date: 04/03/2018 Time: 17:06 Bed 23 Private MD: Colin Garcia E Diagnosis: Multiple fractures of ribs, left side;Urinary tract infection, site not specified Presentation: 04/03 17:17 Presenting complaint: Patient states: He was walking when his leg gave out on him and aj1 he fell. Reports he landed on his right side, and he is now having right rib and right hip pain. Denies hitting his head. Denies LOC, vomiting. Transition of care: patient was not received from another setting of care. Onset of symptoms was April 03, 2018. Risk Assessment: Do you want to hurt yourself or someone else? Patient reports no desire to harm self or others. Initial Sepsis Screen: Does the patient meet any 2 criteria? HR > 90 bpm. No. Patient's initial sepsis screen is negative. Does the patient have a suspected source of infection? No. Patient's initial sepsis screen is negative. Care prior to arrival: None. 17:17 Method Of Arrival: Wheelchair aj1 17:17 Acuity: RITA 3 aj1 Triage Assessment: 17:22 General: Appears in no apparent distress. uncomfortable, Behavior is calm, cooperative, aj1 appropriate for age. Pain: Complains of pain in right lateral anterior chest and right hip Pain currently is 8 out of 10 on a pain scale. at worst was 10 out of 10 on a pain scale. Neuro: Level of Consciousness is awake, alert, obeys commands. Cardiovascular: Patient's skin is warm and dry. Respiratory: Airway is patent Respiratory effort is even, unlabored, Respiratory pattern is regular, symmetrical. Historical: - Allergies: 17:22 No Known Allergies; aj1 - Home Meds: 17:22 carvedilol 3.125 mg Oral tab 1 tab 2 times per day [Active]; cefdinir 300 mg Oral cap 1 aj1 cap every 12 hours [Active]; Colace 100 mg Oral cap 1 cap 2 times per day [Active]; dulera [Active]; Iron CR Oral [Active]; Lasix 40 mg Oral tab 1 tab once daily [Active]; levemir [Active]; lisinopril 2.5 mg Oral tab 1 tab once daily [Active]; neomycin 500 mg Oral tab 3 times per day [Active]; NOVOLOG [Active]; pantoprazole 40 mg Oral TbEC 1 tab 2 times per day [Active]; potassium chloride 10 mEq Oral cpER 1 cap once daily [Active]; simvastatin 20 mg Oral tab 1 tab once daily [Active]; spironolactone 25 mg Oral tab 1 tab once daily [Active]; tamsulosin 0.4 mg Oral cp24 1 cap once daily [Active]; - PMHx: 17:22 Anemia; COPD; diagnosed with cancer at [place], did not seek treatment; Hyperlipidemia; aj1 Hypertension; Myocardial infarction; - Immunization history:: Flu vaccine status is unknown. - Social history:: Smoking status: Patient uses tobacco products, 5 cigarettes per day. - Ebola Screening: : Patient denies travel to an Ebola-affected area in the 21 days before illness onset. Screenin:54 Abuse screen: Denies threats or abuse. Nutritional screening: No deficits noted. la1 Tuberculosis screening: No symptoms or risk factors identified. Fall Risk Fall in past 12 months (25 points). No secondary diagnosis (0 pts). IV access (20 points). Ambulatory Aid- None/Bed Rest/Nurse Assist (0 pts). Gait- Weak (10 pts.). Mental Status- Oriented to own ability (0 pts). Total Lopez Fall Scale indicates High Risk Score (45 or more points). As available patient and family educated on Fall Prevention Program and Strategies. Assessment: 17:54 General: Appears in no apparent distress. Behavior is calm, cooperative. Pain: la1 Complains of pain in left upper quadrant and left lower quadrant Pain currently is 4 out of 10 on a pain scale. Neuro: Level of Consciousness is Oriented to person, place, time, situation, Gas Collection System Operator are equal bilaterally. Cardiovascular: Capillary refill < 3 seconds Patient's skin is warm and dry. Respiratory: Airway is patent Respiratory effort is even, unlabored, Respiratory pattern is regular, symmetrical, Breath sounds are clear bilaterally. GI: Abdomen is bruised on left upper quadrant and left lower quadrant Bowel sounds present X 4 quads. Abd is soft X 4 quads Abdomen is tender to palpation in left upper quadrant and left lower quadrant. : No signs and/or symptoms were reported regarding the genitourinary system. Vital Signs: 17:22 BP 129 / 106; Pulse 93; Resp 20; Temp 99.3(TE); Pulse Ox 96% on R/A; Weight 83.01 kg aj1 (R); Height 5 ft. 11 in. (180.34 cm) (R); Pain 8/10; 18:10 BP 165 / 56; Pulse 81; Resp 18; Temp 99.8(O); Pulse Ox 95% on R/A; la1 19:15 BP 132 / 52 LA Supine (auto/reg); Pulse 80; Resp 20 S; Pulse Ox 100% on R/A; jp3 20:37 BP 155 / 55; Pulse 77; Resp 18; Temp 99.2(O); Pulse Ox 96% on R/A; la1 17:22 Body Mass Index 25.52 (83.01 kg, 180.34 cm) [facility] ED Course: 17:06 Patient arrived in ED. sb2 17:07 Colin Garcia MD is Private Physician. sb2 17:21 Triage completed. aj1 17:22 Arm band placed on Patient placed in an exam room. aj1 17:31 Allan Hernandez PA is PHCP. [facility] 17:31 Jose Alcantara MD is Attending Physician. [facility] 17:53 Estevan Clay, JENIFER is Primary Nurse. la1 17:53 No provider procedures requiring assistance completed. Inserted saline lock: 20 gauge la1 in right forearm, using aseptic technique. Blood collected. 17:54 Placed in gown. Bed in low position. Call light in reach. Pulse ox on. NIBP on. la1 18:19 Warm blanket given. Pillow given. jp3 18:55 CT completed. Patient moved to CT via stretcher. Patient moved back from CT. cw1 19:00 CT Chest, Abdomen, Pelvis - W/Contrast In Process Unspecified. EDMS 19:24 Diet: Patient given water. jp3 19:45 Repeat lab(s) drawn. by me, sent to lab. jp3 20:09 Troponin (emerg Dept Use Only) Sent. jp3 20:09 Occult Blood Sent. la1 20:09 Type And Screen Sent. jp3 20:24 EKG done, by ED staff, reviewed by Allan CASTAÑEDA. jp3 20:37 Repeat lab(s) drawn. by me, sent to lab. jp3 20:37 Ckmb Sent. jp3 20:37 CPK Sent. jp3 20:37 Urine Dipstick--Ancillary (enter results) Sent. jp3 20:55 Shelly Yarbrough MD is Hospitalizing Provider. [facility] 21:29 Patient admitted, IV remains in place. la Administered Medications: 20:56 Drug: Rocephin - (cefTRIAXone) 1 grams Route: IVPB; Infused Over: 30 mins; Site: right la1 forearm; 21:28 Follow up: IV Status: Completed infusion Outcome: 20:56 Decision to Hospitalize by Provider. [facility] 21:29 Admitted to Med/surg accompanied by tech, via wheelchair, room 229, Report called to [facility] June : Condition: stable 21:29 Instructed on the need for admit. 21:35 Patient left the ED. [facility] Signatures: Dispatcher [employer] EDMS Mary Shaw RN RN aj1 Allan Hernandez PA PA [facility] Kim Barbosa, RN RN Katerine Damian 1 Estevan Clay RN RN la1 Carla Degroot2 Ivan Meredith jp3
[2018-04-03] MEDS ORDERED: CEFTRIAXONE/SWI 1gm 1 GM/10 ML SYR ONE (20:59)
[2018-04-03] MEDS ORDERED: ONDANSETRON 4 MG/2 ML VIAL IV PRN (21:21)
--- NOTE | 2018-04-03 21:30 | P.HP ---
Certification for Inpatient Patient admitted to: Inpatient With expected LOS: >2 Midnights Practitioner: I am a practitioner with admitting privileges, knowledge of patient current condition, hospital course, and medical plan of care. Services: Services provided to patient in accordance with Admission requirements found in Title 42 Section 412.3 of the Code of Federal Regulations Patient History Date of Service: 04/03/18 Reason for admission: Recurrent falls, multiple broken ribs History of Present Illness: Mr Lucio is a 77-year-old male with history of diabetes mellitus types 2 insulin-dependent, hypertension, liver cirrhosis, chronic anemia, who about 1 month ago he was admitted for sepsis secondary to Salmonella UTI. Today he came to ER complaining of multiple falls. He stated that he was walking with a walker, but he has been very weak and his legs gave up. The last fall he landed on his left side, leading with significant left chest wall pain. No history of fever or chills. He denied any LOC, chest pain, shortness of breath, or dizziness. Lab work remarkable for anemia, hemoglobin 9.9 mg/dL, probably close to his baseline, thrombocytopenia, hypokalemia, UA abnormal consistent with UTI. At presentation he was in no distress, afebrile, hemodynamically stable. Allergies No Known Allergies Allergy (Verified 02/23/18 00:49) Home medications list reviewed: Yes Home Medications: Spironolactone 1 tab PO DAILY 11/08/17 Pantoprazole [Protonix Tab*] 40 mg PO BIDAC tab 11/14/17 Tamsulosin [Flomax*] 0.4 mg PO DAILY cap 11/14/17 Insulin Detemir [Levemir*] 15 unit SQ BEDTIME 11/30/17 Insulin Detemir [Levemir*] 25 unit SQ DAILY 11/30/17 Simvastatin 20 mg PO BEDTIME 11/30/17 Carvedilol [Coreg*] 3.125 mg PO BID 02/23/18 Furosemide [Lasix*] 40 mg PO DAILY 02/23/18 Levofloxacin [Levaquin] 500 mg PO DAILY #14 tablet 02/25/18 - Past Medical/Surgical History Diabetic: Yes -: Diabetes mellitus type 2 -: CAD -: Liver cirrhosis -: COPD -: Former tobacco use -: Alcohol use -: HTN -: GERD -: History of angiodysplasia requiring ablation -: Anemia -: cataracat sx rob eye. Psychosocial/ Personal History: The patient lives with a friend. He is . He has several children that he is not in contact with. - Family History Father -: Stroke, Cancer Brother -: Stroke, Cancer Mother -: Diabetes - Social History Smoking Status: Current every day smoker Counseled patient to stop smoking for: less than 10 minutes Smoking therapy provided: Yes Patient receptive to therapy: No Alcohol use: Yes CD- Drugs: No Caffeine use: Yes Place of Residence: Home Review of Systems 10-point ROS is otherwise unremarkable Physical Examination - Physical Exam General: Alert, In no apparent distress, Other HEENT: Atraumatic, PERRLA, Mucous membr. moist/pink, EOMI, Sclerae nonicteric Neck: Supple, 2+ carotid pulse no bruit, No LAD, Without JVD or thyroid abnormality Respiratory: Clear to auscultation bilaterally, Normal air movement Cardiovascular: Normal S1 S2, No gallops Gastrointestinal: Normal bowel sounds, No tenderness, Distended, Ascites Musculoskeletal: Tenderness (Left chest wall) Integumentary: No rashes Neurological: Normal speech, Normal tone, Normal affect Lymphatics: No axilla or inguinal lymphadenopathy - Studies Laboratory Data (last 24 hrs) 04/03/18 17:50: Sodium 134 L, Potassium 3.1 L, BUN 15, Creatinine 0.90, Glucose 156 H, Total Bilirubin 2.5 H, AST 123 H, ALT 42, Alkaline Phosphatase 101 04/03/18 17:50: Creatinine 0.80 04/03/18 17:50: WBC 8.2, Hgb 9.9 L, Hct 29.2 L, Plt Count 81 L Assessment and Plan - Plan Assessment: 1. Recurrent fall 2. Multiple rib fractures 3. Liver cirrhosis 4. Insulin-dependent diabetes mellitus. 5. Hypertension 6. chronic anemia 7. COPD 8. Coronary artery disease 9. Hypokalemia Plan: Will admit the patient to the hospital for pain control, CT chest abdomen and pelvis was remarkable for left side 6th, 7th, 8th ribs fracture. There also a left kidney lesion concerning for malignancy, which needs to continue follow-up as outpatient as soon as the patient is discharged. Will start antibiotic treatment for UTI. Urine culture in process. Consult physical therapy. Replace electrolyte as needed per protocol. - Advance Directives Does patient have a Living Will: No Does patient have a Durable POA for Healthcare: No - Code Status/Comfort Care Code Status Assessed: Yes Code Status: Full Code
[2018-04-03] MEDS ORDERED: POTASSIUM 25 MEQ EFFERV TAB PO ONE (21:39)
[2018-04-03] MEDS: TRAMADOL HCL 50 MG TAB PO PRN (22:33)
[2018-04-04] MEDS: ACETAMINOPHEN 500 MG TAB PO PRN ×2 (04:19→17:32)
[2018-04-04 05:08] LABS: Absolute Lymphocytes (CBC) 0.8 K/uL (0.7-4.9); Absolute Monocytes 1.2 K/uL (0.1-1.3); Absolute Neutrophil 4.6 K/uL (1.8-8.0); Basophils % 0.5 % (0-1.3); Eosinophils % 0.3 % (0-4.4); Hematocrit 27.2 % (39.6-49.0); Lymphocytes % 12.2 % (15.3-44.8); MCH 29.4 pg (27.0-35.0); MCV 86.4 fL (80-100); MPV 9.5 fL (7.6-11.3); Monocytes % 17.5 % (3.3-12.3); RBC Red Blood Cell Count 3.15 M/uL (4.33-5.43)
[2018-04-04 05:25] LABS: Magnesium 1.9 mg/dL (1.8-2.4); Potassium 3.3 mmol/L (3.5-5.1)
[2018-04-04] MEDS ORDERED: POTASSIUM 25 MEQ EFFERV TAB PO ONE (05:34)
[2018-04-04] MEDS: INSULIN -REGULAR HUMAN 50 UNIT/0.5 ML ML SQ SCH ×4 (07:30→21:00)
[2018-04-04 07:57] LABS: Platelet Estimate DECR; Toxic Granulation PRESENT
[2018-04-04 07:58] LABS: Blood Morphology Comment NOT SEEN (NOT SEEN)
[2018-04-04 08:39] LABS: Urine White Blood Cell Casts OK
--- NOTE | 2018-04-04 08:53 | EKG ---
Test Date: 2018-04-03 Test Time: 20:17:31 Party Demonstrator: BENEDICT MEASUREMENT RESULTS: Intervals: Rate: 76 DC: 190 QRSD: 100 QT: 422 QTc: 474 [place]: P: 46 DC: 190 QRS: 42 T: 43 INTERPRETIVE STATEMENTS: Normal sinus rhythm Normal ECG Compared to ECG 02/23/2018 07:54:35 First degree AV block no longer present Electronically Signed On 04-04-18 08:52:31 CDT by Manny Diaz
[2018-04-04] MEDS ORDERED: MORPHINE 4 MG/ML SYR IV PRN (08:58)
[2018-04-04] MEDS ORDERED: CEFTRIAXONE 1 GM/NS 50 ML 1 GM/50 ML BAG IV SCH (09:00)
[2018-04-04] MEDS: INSULIN GLARGINE 100 UNITS/ML SQ SCH ×2 (09:50→21:28)
[2018-04-04] MEDS: CEFTRIAXONE/SWI 1gm 1 GM/10 ML SYR IVP SCH (09:51)
[2018-04-04] MEDS: FUROSEMIDE 40 MG TABLET PO SCH (09:51)
[2018-04-04] MEDS: TAMSULOSIN 0.4 MG SR CAP PO SCH (09:52)
[2018-04-04] MEDS: CARVEDILOL 3.125 MG TAB PO SCH ×2 (09:52→21:28)
[2018-04-04] MEDS: SPIRONOLACTONE 25 MG TABLET PO SCH (09:52)
[2018-04-04] MEDS ORDERED: MORPHINE *EXTENDED RELEASE* 15 MG TAB PO SCH (10:00)
[2018-04-04] MEDS: POTASSIUM 25 MEQ EFFERV TAB PO ONE ×2 (17:32→21:27)
[2018-04-04] MEDS: NA CHLORIDE 0.9% 1,000 ML IV SCH (17:58)
--- NOTE | 2018-04-04 18:53 | P.PN ---
Subjective Date of Service: 04/04/18 Chief Complaint: Recurrent falls, multiple broken ribs doing well unril afternoon, AMS but laert and talk if asked Physical Examination - Vital Signs Temperature: 100.6 F Blood Pressure: 124/56 Pulse: 93 Respirations: 18 Pulse Ox (%): 91 - Physical Exam General: Alert, In no apparent distress, Oriented x2 HEENT: Atraumatic, PERRLA, EOMI Neck: Supple, JVD not distended Respiratory: Clear to auscultation bilaterally, Normal air movement Cardiovascular: Regular rate/rhythm, Normal S1 S2 Gastrointestinal: Normal bowel sounds, No tenderness Musculoskeletal: No tenderness Integumentary: No rashes Neurological: Normal speech, Normal tone, Normal affect Lymphatics: No axilla or inguinal lymphadenopathy - Studies Medications List Reviewed: Yes Assessment And Plan - Plan Assessment: 1. Recurrent fall 2. Multiple rib fractures 3. Liver cirrhosis 4. Insulin-dependent diabetes mellitus. 5. Hypertension 6. chronic anemia 7. COPD 8. Coronary artery disease 9. Hypokalemia Plan: -- antibiotic treatment for UTI. Ucx pending, GNR --IVF 75 ml --Will do CT head if not improved --Hold MS Contin --Urine culture in process. Consult physical therapy. Replace electrolyte as needed per protocol.
[2018-04-04] MEDS ORDERED: INSULIN DETEMIR 15 UNIT SQ SCH (21:00)
[2018-04-05] MEDS: NA CHLORIDE 0.9% 1,000 ML IV SCH ×2 (05:23→21:05)
[2018-04-05 07:21] LABS: Magnesium 2.2 mg/dL (1.8-2.4)
[2018-04-05] MEDS: INSULIN -REGULAR HUMAN 50 UNIT/0.5 ML ML SQ SCH ×4 (07:30→21:00)
[2018-04-05] MEDS ORDERED: HOME MED 1 EA UNK (Insulin Detemir [Levemir] 25 UNITS) SQ SCH (08:00)
[2018-04-05] MEDS: INSULIN GLARGINE 100 UNITS/ML SQ SCH ×2 (08:00→21:04)
[2018-04-05] MEDS: CARVEDILOL 3.125 MG TAB PO SCH ×2 (08:46→21:03)
[2018-04-05] MEDS: TAMSULOSIN 0.4 MG SR CAP PO SCH (08:46)
[2018-04-05] MEDS: CEFTRIAXONE/SWI 1gm 1 GM/10 ML SYR IVP SCH (08:46)
[2018-04-05] MEDS: SPIRONOLACTONE 25 MG TABLET PO SCH (08:47)
[2018-04-05] MEDS: FUROSEMIDE 40 MG TABLET PO SCH (08:47)
--- NOTE | 2018-04-05 11:51 | RAD REPORT ---
EXAM DESCRIPTION: CT - Head Brain Wo Cont - 04/05/2018 11:43 am CLINICAL HISTORY: Headache COMPARISON: CT head October 2017 TECHNIQUE: Axial 5 mm thick images of the head were obtained without IV contrast. All CT scans are performed using dose optimization technique as appropriate and may include automated exposure control or mA/KV adjustment according to patient size. FINDINGS: No intracranial hemorrhage, mass, edema or shift of mid-line structures. No acute infarcti on changes seen. Hlip-yf-yhfrcjvs atrophy changes present with ventricular size in proportion. Chroni c ischemic change and old left basal ganglia infarction changes are present. These intracranial findi ngs are without significant change from the October examination. Mastoid air cells are clear. Large polyp or retention cyst fills most of the right maxillary sinus. N o air-fluid level. This is a stable finding. No acute bony findings. IMPRESSION: Atrophy and chronic ischemic changes stable from October. No acute finding.
--- NOTE | 2018-04-05 17:33 | P.PN ---
Subjective Date of Service: 04/05/18 Chief Complaint: Recurrent falls, multiple broken ribs Reduced mentation, presuming due to UTI. Better today. Ammonia nl CT head nl Physical Examination - Vital Signs Temperature: 99.6 F Blood Pressure: 153/66 Pulse: 85 Respirations: 20 Pulse Ox (%): 92 - Physical Exam General: Alert, In no apparent distress, Oriented x2 HEENT: Atraumatic, PERRLA, EOMI Neck: Supple, JVD not distended Respiratory: Clear to auscultation bilaterally, Normal air movement Cardiovascular: Regular rate/rhythm, Normal S1 S2 Gastrointestinal: Normal bowel sounds, No tenderness Musculoskeletal: No tenderness Integumentary: No rashes Neurological: Normal speech, Normal tone, Normal affect Lymphatics: No axilla or inguinal lymphadenopathy - Studies Laboratory Data (last 24 hrs) 04/05/18 05:00: Sodium 138, Potassium 4.0, BUN 20 H, Creatinine 1.00, Glucose 117 H, Magnesium 2.2 Medications List Reviewed: Yes Assessment And Plan - Plan Assessment: 1. Recurrent fall 2. Multiple rib fractures 3. Liver cirrhosis 4. Insulin-dependent diabetes mellitus. 5. Hypertension 6. chronic anemia 7. COPD 8. Coronary artery disease 9. Hypokalemia Plan: --antibiotic treatment for UTI. Ucx pending, GNR --IVF 75 ml --DC MS Contin --Urine culture in process. --Consult physical therapy. --Replace electrolyte as needed per protocol. 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
[2018-04-05] MEDS: ACETAMINOPHEN 500 MG TAB PO PRN (21:04)
[2018-04-06] MEDS: ACETAMINOPHEN 500 MG TAB PO PRN (03:54)
[2018-04-06 04:24] VITALS: BMI 24.1
[2018-04-06] MEDS: INSULIN -REGULAR HUMAN 50 UNIT/0.5 ML ML SQ SCH ×4 (07:30→21:00)
[2018-04-06] MEDS: INSULIN GLARGINE 100 UNITS/ML SQ SCH ×2 (08:00→20:55)
[2018-04-06] MEDS: CARVEDILOL 3.125 MG TAB PO SCH ×2 (09:14→20:54)
[2018-04-06] MEDS: CEFTRIAXONE/SWI 1gm 1 GM/10 ML SYR IVP SCH (09:14)
[2018-04-06] MEDS: TAMSULOSIN 0.4 MG SR CAP PO SCH (09:14)
[2018-04-06] MEDS: FUROSEMIDE 40 MG TABLET PO SCH (09:14)
[2018-04-06] MEDS: SPIRONOLACTONE 25 MG TABLET PO SCH (09:14)
[2018-04-06] MEDS: NA CHLORIDE 0.9% 1,000 ML IV SCH ×2 (09:47→21:03)
--- NOTE | 2018-04-06 14:09 | P.PN ---
Subjective Date of Service: 04/06/18 Chief Complaint: Recurrent falls, multiple broken ribs Patient seen and examined at bedside with RN. Chart reviewed. Patient is currently awaiting placement at this time. Complains of having some rib fracture pain other than that no other complaints to offer at this time. Review of Systems 10-point ROS is otherwise unremarkable Physical Examination - Vital Signs Temperature: 97.5 F Blood Pressure: 146/67 Pulse: 72 Respirations: 16 Pulse Ox (%): 93 - Physical Exam General: Alert, In no apparent distress HEENT: Atraumatic, PERRLA, EOMI Neck: Supple, JVD not distended Respiratory: Clear to auscultation bilaterally, Normal air movement Cardiovascular: Regular rate/rhythm, Normal S1 S2 Gastrointestinal: Normal bowel sounds, No tenderness Musculoskeletal: No tenderness Integumentary: No rashes Neurological: Normal speech, Normal tone, Normal affect Lymphatics: No axilla or inguinal lymphadenopathy - Studies Microbiology Data (last 24 hrs): 04/03/18 20:11 Clean Catch Urine Gleason Count - Final >100,000 CFU/ML. 04/03/18 20:11 Clean Catch Urine - Final Salmonella Species Medications List Reviewed: Yes Assessment And Plan - Current Problems (Diagnosis) (1) Recurrent falls Onset Date: 04/05/18 Current Visit: Yes Status: Acute Plan: Recurrent falls with Generalized weakness -PT consulted -SNF placement pending (2) Ribs, multiple fractures Onset Date: 04/05/18 Current Visit: Yes Status: Acute Plan: Multiple Ribs S.p Falls -IS and Pain mgmt Qualifiers: Encounter type: initial encounter (3) UTI (urinary tract infection) Current Visit: No Status: Acute Plan: UA with UTI -culture + for salmonella -IV rocephin for now Qualifiers: Urinary tract infection type: acute cystitis Hematuria presence: without hematuria Qualified Code(s): N30.00 - Acute cystitis without hematuria (4) Diabetes mellitus, type II, insulin dependent Onset Date: 04/05/18 Current Visit: Yes Status: Chronic (5) CAD (coronary artery disease) Onset Date: 11/05/17 Current Visit: No Status: Chronic Qualifiers: Coronary Disease-Associated Artery/Lesion type: [place] artery [place] vs. 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: without prison use Diabetes mellitus complication status: with other specified complication Qualified Code(s): E11.69 - Type 2 diabetes mellitus with other specified complication (8) GERD (gastroesophageal reflux disease) Onset Date: 11/05/17 Current Visit: No Status: Chronic Qualifiers: Esophagitis presence: without esophagitis Qualified Code(s): K21.9 - Gastro -esophageal reflux disease without esophagitis (9) Hypertension Onset Date: 11/05/17 Current Visit: No Status: Chronic Qualifiers: Hypertension type: essential hypertension (10) Chronic anemia Onset Date: 04/05/18 Current Visit: Yes Status: Chronic
[2018-04-06] MEDS: TRAMADOL HCL 50 MG TAB PO PRN (20:57)
[2018-04-07] MEDS: ACETAMINOPHEN 500 MG TAB PO PRN (00:39)
[2018-04-07] MEDS: INSULIN -REGULAR HUMAN 50 UNIT/0.5 ML ML SQ SCH ×4 (07:30→21:00)
[2018-04-07] MEDS: INSULIN GLARGINE 100 UNITS/ML SQ SCH ×2 (08:00→21:02)
[2018-04-07] MEDS: SPIRONOLACTONE 25 MG TABLET PO SCH (09:50)
[2018-04-07] MEDS: FUROSEMIDE 40 MG TABLET PO SCH (09:51)
[2018-04-07] MEDS: CARVEDILOL 3.125 MG TAB PO SCH ×2 (09:51→21:01)
[2018-04-07] MEDS: TAMSULOSIN 0.4 MG SR CAP PO SCH (09:51)
[2018-04-07] MEDS: CEFTRIAXONE/SWI 1gm 1 GM/10 ML SYR IVP SCH (09:52)
[2018-04-07] MEDS: NA CHLORIDE 0.9% 1,000 ML IV SCH (12:12)
--- NOTE | 2018-04-07 13:43 | P.PN ---
Subjective Date of Service: 04/07/18 Chief Complaint: Recurrent falls, multiple broken ribs Patient seen and examined at bedside with RN. Chart reviewed. Patient is currently awaiting placement at this time. Complains of having some rib fracture pain other than that no other complaints to offer at this time. Review of Systems 10-point ROS is otherwise unremarkable Physical Examination - Vital Signs Temperature: 97.7 F Blood Pressure: 172/73 Pulse: 74 Respirations: 18 Pulse Ox (%): 93 - Physical Exam General: Alert, In no apparent distress HEENT: Atraumatic, PERRLA, EOMI Neck: Supple, JVD not distended Respiratory: Clear to auscultation bilaterally, Normal air movement Cardiovascular: Regular rate/rhythm, Normal S1 S2 Gastrointestinal: Normal bowel sounds, No tenderness Musculoskeletal: No tenderness Integumentary: No rashes Neurological: Normal speech, Normal tone, Normal affect Lymphatics: No axilla or inguinal lymphadenopathy - Studies Medications List Reviewed: Yes Assessment And Plan - Current Problems (Diagnosis) (1) Recurrent falls Onset Date: 04/05/18 Current Visit: Yes Status: Acute Plan: Recurrent falls with Generalized weakness -PT consulted -SNF placement pending (2) Ribs, multiple fractures Onset Date: 04/05/18 Current Visit: Yes Status: Acute Plan: Multiple Ribs S.p Falls -IS and Pain mgmt Qualifiers: Encounter type: initial encounter (3) UTI (urinary tract infection) Current Visit: No Status: Acute Plan: UA with UTI -culture + for salmonella -IV rocephin for now Qualifiers: Urinary tract infection type: acute cystitis Hematuria presence: without hematuria Qualified Code(s): N30.00 - Acute cystitis without hematuria (4) Diabetes mellitus, type II, insulin dependent Onset Date: 04/05/18 Current Visit: Yes Status: Chronic (5) CAD (coronary artery disease) Onset Date: 11/05/17 Current Visit: No Status: Chronic Qualifiers: Coronary Disease-Associated Artery/Lesion type: [place] artery [place] vs. 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 field education coordinator insulin use: without field education coordinator use Diabetes mellitus complication status: with other specified complication Qualified Code(s): E11.69 - Type 2 diabetes mellitus with other specified complication (8) GERD (gastroesophageal reflux disease) Onset Date: 11/05/17 Current Visit: No Status: Chronic Qualifiers: Esophagitis presence: without esophagitis Qualified Code(s): K21.9 - Gastro -esophageal reflux disease without esophagitis (9) Hypertension Onset Date: 11/05/17 Current Visit: No Status: Chronic Qualifiers: Hypertension type: essential hypertension (10) Chronic anemia Onset Date: 04/05/18 Current Visit: Yes Status: Chronic - Plan Currently awaiting placement at this time. Referral has been made to [facility]. Discharge Plan: Fdc Plan to discharge in: 24 Hours - Code Status/Comfort Care Code Status Assessed: Yes Critical Care: No
[2018-04-08] MEDS: NA CHLORIDE 0.9% 1,000 ML IV SCH (00:21)
[2018-04-08] MEDS: TRAMADOL HCL 50 MG TAB PO PRN (02:48)
[2018-04-08] MEDS: INSULIN -REGULAR HUMAN 50 UNIT/0.5 ML ML SQ SCH ×4 (07:30→21:00)
[2018-04-08] MEDS: CEFTRIAXONE/SWI 1gm 1 GM/10 ML SYR IVP SCH (09:16)
[2018-04-08] MEDS: TAMSULOSIN 0.4 MG SR CAP PO SCH (09:16)
[2018-04-08] MEDS: SPIRONOLACTONE 25 MG TABLET PO SCH (09:16)
[2018-04-08] MEDS: CARVEDILOL 3.125 MG TAB PO SCH ×2 (09:16→21:12)
[2018-04-08] MEDS: FUROSEMIDE 40 MG TABLET PO SCH (09:17)
[2018-04-08] MEDS: INSULIN GLARGINE 100 UNITS/ML SQ SCH ×2 (09:18→21:14)
--- NOTE | 2018-04-08 14:59 | P.DS ---
Admission Date: 04/05/18 Discharge Date: 04/08/18 Disposition: ROUTINE DISCHARGE Discharge Condition: GOOD Reason for Admission: Recurrent falls, multiple broken ribs Consultations: On - Problems (1) Recurrent falls Onset Date: 04/05/18 Current Visit: Yes Status: Acute (2) Ribs, multiple fractures Onset Date: 04/05/18 Current Visit: Yes Status: Acute Qualifiers: Encounter type: initial encounter (3) UTI (urinary tract infection) Current Visit: No Status: Acute Qualifiers: Urinary tract infection type: acute cystitis Hematuria presence: without hematuria Qualified Code(s): N30.00 - Acute cystitis without hematuria (4) Diabetes mellitus, type II, insulin dependent Onset Date: 04/05/18 Current Visit: Yes Status: Chronic (5) CAD (coronary artery disease) Onset Date: 11/05/17 Current Visit: No Status: Chronic Qualifiers: Coronary Disease-Associated Artery/Lesion type: [place] artery [place] vs. transplanted heart: [place] heart Associated angina: without angina Qualified Code(s): I25.10 - Atherosclerotic heart disease of [place] coronary artery without angina pectoris (6) COPD (chronic obstructive pulmonary disease) Onset Date: 11/05/17 Current Visit: No Status: Chronic Qualifiers: COPD type: chronic bronchitis (7) Diabetes mellitus Onset Date: 11/05/17 Current Visit: No Status: Chronic Qualifiers: Diabetes mellitus type: type 2 Diabetes mellitus retirement insulin use: without retirement use Diabetes mellitus complication status: with other specified complication Qualified Code(s): E11.69 - Type 2 diabetes mellitus with other specified complication (8) GERD (gastroesophageal reflux disease) Onset Date: 11/05/17 Current Visit: No Status: Chronic Qualifiers: Esophagitis presence: without esophagitis Qualified Code(s): K21.9 - Gastro -esophageal reflux disease without esophagitis (9) Hypertension Onset Date: 11/05/17 Current Visit: No Status: Chronic Qualifiers: Hypertension type: essential hypertension (10) Chronic anemia Onset Date: 04/05/18 Current Visit: Yes Status: Chronic Brief History of Present Illness: 77-year-old male with significant past medical history who was admitted to the hospital for recurrent falls generalized weakness in urinary tract infection Hospital Course: Overall during the hospital stay patient remained stable The patient was admitted to the hospital after having recurrent bouts of the house and was having generalized weakness. Once patient was admitted here in the hospital with physical therapy was consulted and worked with the patient here in the hospital and fall precautions were given. Patient was also found to have a urinary tract infection with urine cultures positive for Salmonella. Patient was then switched over to oral medication that was sensitive to the salmonella and was then discharged to detention under stable condition. At the detention patient will be getting intermediate facility with rehab to get stronger before he is able to be discharged home. Patient demonstrated understanding of the disease process and the plan of care and thus was discharged to the detention under stable condition. Vital Signs/Physical Exam: Temp Pulse Resp BP Pulse Ox 98.2 F 78 17 151/68 H 94 04/08/18 12:00 04/08/18 12:00 04/08/18 12:00 04/08/18 12:00 04/08/18 12:00 General: Alert, In no apparent distress HEENT: Atraumatic, PERRLA, EOMI Neck: Supple, JVD not distended Respiratory: Clear to auscultation bilaterally, Normal air movement Cardiovascular: Regular rate/rhythm, Normal S1 S2 Gastrointestinal: Normal bowel sounds, No tenderness Musculoskeletal: No tenderness Integumentary: No rashes Neurological: Normal speech, Normal tone, Normal affect Lymphatics: No axilla or inguinal lymphadenopathy Laboratory Data at Discharge: WBC 6.6 K/uL (4.3-10.9) D 04/04/18 04:48 Hgb 9.2 g/dL (13.6-17.9) L 04/04/18 04:48 Hct 27.2 % (39.6-49.0) L 04/04/18 04:48 Plt Count 80 K/uL (152-406) L 04/04/18 04:48 Sodium 138 mmol/L (136-145) 04/05/18 05:00 Potassium 4.0 mmol/L (3.5-5.1) 04/05/18 05:00 BUN 20 mg/dL (7-18) H 04/05/18 05:00 Creatinine 1.00 mg/dL (0.55-1.3) 04/05/18 05:00 Glucose 117 mg/dL (74-106) H 04/05/18 05:00 Magnesium 2.2 mg/dL (1.8-2.4) 04/05/18 05:00 Total Bilirubin 2.5 mg/dL (0.2-1.0) H 04/03/18 17:50 AST 123 U/L (15-37) H 04/03/18 17:50 ALT 42 U/L (12-78) 04/03/18 17:50 Alkaline Phosphatase 101 U/L (45-117) 04/03/18 17:50 Home Medications: Carvedilol 3.125 mg PO BID 04/03/18 Furosemide 40 mg PO DAILY 04/03/18 Insulin Detemir [Levemir] 15 units SQ BEDTIME 04/03/18 Insulin Detemir [Levemir] 25 units SQ DAILY WITH BREAKFAST 04/03/18 Pantoprazole Sodium 40 mg PO DAILY 04/03/18 Simvastatin 20 mg PO BEDTIME 04/03/18 Spironolactone 25 mg PO DAILY 04/03/18 Tamsulosin HCl 0.4 mg PO DAILY 04/03/18 Ciprofloxacin HCl [Cipro 500 MG Tablet] 500 mg PO DAILY #10 tab 04/08/18 New Medications: Ciprofloxacin HCl [Cipro 500 MG Tablet] 500 mg PO DAILY #10 tab Patient Discharge Instructions: Please f.u with PCP in 1 to 2 weeks post discharge. New medication. Ciprofloxacin 500mg Daily for 10 days Diet: Regular Activity: Ad barrera Followup: Colin Garcia MD [Primary Care Provider] - 1 Week (Call office to schedule an appointment)
[2018-04-08] MEDS ORDERED: CIPROFLOXACIN HCL 500 MG TAB PO SCH (18:00)
[2018-04-09 10:46] VITALS: O2SAT 93
[2018-04-09 12:46] VITALS: BP 132/68; TEMP 97.3
== END 2018-04-09 12:10 | DRG 184 ==
LOC: ER 17:03 → ERHOLD 20:56 → 2ND 21:18 → OBSVTOIN 04-05 15:55
PROVIDERS: ADMIT Internal Medicine; ATTEND Internal Medicine
DX: S22.42XA Multiple fractures of ribs, left side, initial encounter for closed fracture (principal); N30.00 Acute cystitis without hematuria; W18.30XA Fall on same level, unspecified, initial encounter; Y92.009 Unspecified place in unspecified non-institutional (private) residence as the place of occurrence of the external cause; E11.9 Type 2 diabetes mellitus without complications; I25.10 Atherosclerotic heart disease of native coronary artery without angina pectoris; J44.9 Chronic obstructive pulmonary disease, unspecified; I10 Essential (primary) hypertension; Z87.891 Personal history of nicotine dependence; K21.9 Gastro-esophageal reflux disease without esophagitis; E87.6 Hypokalemia; D64.9 Anemia, unspecified
CPT/HCPCS: 36415; 70450; 71260; 74177; 80048; 80053; 81003; 81015; 82140; 82550; 82553; 82962; 83735; 84132; 84484; 85025; 86850; 86900; 86901; 87040; 87077; 87086; 87088; 87186; 93005; 94760; 96365; 97163; 99285; G0378; J0696; J7030; Q9967

== ENCOUNTER 2018-05-26 17:26 | Emergency (ER) | payer OTHER ==
[2018-05-26 18:37] LABS: Absolute Lymphocytes (CBC) 1.6 K/uL (0.7-4.9); Absolute Monocytes 1.4 K/uL (0.1-1.3); Absolute Neutrophil 4.3 K/uL (1.8-8.0); Basophils % 1.7 % (0-1.3); Eosinophils % 1.2 % (0-4.4); Hematocrit 32.7 % (39.6-49.0); MCH 29.1 pg (27.0-35.0); MCV 86.6 fL (80-100); MPV 8.3 fL (7.6-11.3); Monocytes % 18.3 % (3.3-12.3); RBC Red Blood Cell Count 3.78 M/uL (4.33-5.43)
[2018-05-26 18:40] LABS: Protime INR 1.39
--- NOTE | 2018-05-26 18:53 | RAD REPORT ---
EXAM DESCRIPTION: CT - Head C Spine Mpr Wo Con - 05/26/2018 6:33 pm CLINICAL HISTORY: Head and neck injury status post fall. Head and neck pain COMPARISON: March TECHNIQUE: Computed axial tomography of the head and cervical spine was obtained. Sagittal and coronal reconstruction was performed. All CT scans are performed using dose optimization technique as appropriate and may include automated exposure control or mA/KV adjustment according to patient size. 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 An intracranial bleed is not seen. The ventricles are normal in caliber. An extra-axial fluid collect ion is not noted.Fluid within the visualized sinuses and mastoids is not seen. Mucus retention cysts the right maxillary sinus is present A cervical fracture is not visualized. No dislocation is noted. Spondylosis involves the cervical spi ne IMPRESSION: No acute intracranial abnormality is seen. A cervical fracture is not visualized. If the patient continues to have symptoms to suggest intracra nial /spinal cord pathology then MRI would be recommended
[2018-05-26 18:54] LABS: Potassium 3.2 mmol/L (3.5-5.1)
[2018-05-26 19:15] LABS: Blood Morphology Comment NOTED (NOT SEEN); Platelet Estimate DECR
[2018-05-26] MEDS ORDERED: POTASSIUM 25 MEQ EFFERV TAB ONE (19:19)
[2018-05-26] MEDS ORDERED: CYANOCOBALAMIN 1000MCG/ML INJ ONE (19:48)
--- NOTE | 2018-05-26 20:59 | EDPHYS ---
Physician Documentation [facility] Name: Jean Lucio III Age: 78 yrs Sex: Male : 1940 Arrival Date: 05/26/2018 Time: 17:28 Bed 14 Private MD: Colin Garcia E ED Physician Joe Mcfadden HPI: 05/26 18:02 This 78 yrs old Male presents to ER via Wheelchair with complaints of Fall snw Injury. 18:02 Details of fall: The patient fell from an upright position, while standing. Onset: The snw symptoms/episode began/occurred suddenly, today, x 3. Associated injuries: The patient sustained denies injury. Severity of symptoms: At their worst the symptoms were mild. The patient has experienced similar episodes in the past, chronically. It is unknown whether or not the patient has recently seen a physician, sees Dr. Garcia. Historical: - Allergies: 17:31 No Known Allergies; sv - PMHx: 17:31 Anemia; COPD; diagnosed with cancer at [place], did not seek treatment; Hyperlipidemia; sv Hypertension; Myocardial infarction; - Immunization history:: Flu vaccine is up to date. - Social history:: Smoking status: Patient uses tobacco products, smokes one-half pack cigarettes per day, Patient uses alcohol, but reports only rare drinking. - Ebola Screening: : No symptoms or risks identified at this time. ROS: 18:01 Constitutional: Negative for fever, chills, and weight loss, Eyes: Negative for injury, snw pain, redness, and discharge, ENT: Negative for injury, pain, and discharge, Neck: Negative for injury, pain, and swelling, Cardiovascular: Negative for chest pain, palpitations, and edema, Respiratory: Negative for shortness of breath, cough, wheezing, and pleuritic chest pain, Abdomen/GI: Negative for abdominal pain, nausea, vomiting, diarrhea, and constipation, Back: Negative for injury and pain, : Negative for injury, bleeding, discharge, and swelling, MS/Extremity: Negative for injury and deformity, skinned elbow Skin: Negative for injury, rash, and discoloration. 18:01 Neuro: Positive for fall x three today, no LOC. Exam: 18:00 Constitutional: This is a well developed, well nourished patient who is awake, alert, snw and in no acute distress. + ETOH Head/Face: Normocephalic, atraumatic. ENT: Nares patent. No nasal discharge, no septal abnormalities noted. Tympanic membranes are normal and external auditory canals are clear. Oropharynx with no redness, swelling, or masses, exudates, or evidence of obstruction, uvula midline. Mucous membranes moist. Neck: Trachea midline, no thyromegaly or masses palpated, and no cervical lymphadenopathy. Supple, full range of motion without nuchal rigidity, or vertebral point tenderness. No Meningismus. Chest/axilla: Normal chest wall appearance and motion. Nontender with no deformity. No lesions are appreciated. Cardiovascular: Regular rate and rhythm with a normal S1 and S2. No gallops, murmurs, or rubs. Normal PMI, no JVD. No pulse deficits. Respiratory: Lungs have equal breath sounds bilaterally, clear to auscultation and percussion. No rales, rhonchi or wheezes noted. No increased work of breathing, no retractions or nasal flaring. Abdomen/GI: Soft, non-tender, with normal bowel sounds. No distension or tympany. No guarding or rebound. No evidence of tenderness throughout. Back: No spinal tenderness. No costovertebral tenderness. Full range of motion. Skin: Warm, dry with normal turgor. Normal color with no rashes, no lesions, and no evidence of cellulitis. abrasions to left elbow MS/ Extremity: Pulses equal, no cyanosis. Neurovascular intact. Full, normal range of motion. Neuro: Awake and alert, GCS 15, oriented to person, place, time, and situation. Cranial nerves II-XII grossly intact. Motor strength 5/5 in all extremities. Sensory grossly intact. Cerebellar exam normal. Normal gait. Psych: Awake, alert, with orientation to person, place and time. Behavior, mood, and affect are within normal limits. 18:00 Eyes: Conjunctiva: pale. Vital Signs: 17:31 BP 123 / 50; Pulse 85; Resp 16; Temp 97.8; Pulse Ox 98% ; Weight 72.57 kg; Height 5 ft. sv 11 in. (180.34 cm); Pain 2/10; 19:15 BP 110 / 57; Pulse 84; Resp 17 S; Temp 97.9(O); Pulse Ox 98% on R/A; cc3 20:30 BP 121 / 62; Pulse 83; Resp 16 S; Pulse Ox 97% on R/A; cc3 21:45 BP 119 / 53; Pulse 79; Resp 18 S; Pulse Ox 98% on R/A; cc3 22:20 BP 112 / 63; Pulse 82; Resp 16 S; Pulse Ox 98% on R/A; cc3 22:45 BP 116 / 58; Pulse 83; Resp 17 S; Pulse Ox 97% on R/A; cc3 17:31 Body Mass Index 22.32 (72.57 kg, 180.34 cm) sv MDM: 17:48 Patient medically screened. everett 20:35 Data reviewed: vital signs, nurses notes. Data interpreted: Pulse oximetry: on room air snw is 98 %. Interpretation: normal. Counseling: I had a detailed discussion with the patient and/or guardian regarding: the historical points, exam findings, and any diagnostic results supporting the discharge/admit diagnosis, lab results, radiology results, the need for outpatient follow up, to return to the emergency department if symptoms worsen or persist or if there are any questions or concerns that arise at home. Awaiting: ETOH level was not performed, redrawn and sent. 05/26 18:00 Order name: ETOH Level snw 05/26 18:00 Order name: CBC with Diff; Complete Time: 19:16 snw 05/26 18:00 Order name: TS; Complete Time: 19:15 snw 05/26 18:00 Order name: Chem 7; Complete Time: 18:56 snw 05/26 18:00 Order name: Ptt, Activated; Complete Time: 18:54 snw 05/26 18:00 Order name: PT-INR; Complete Time: 18:54 snw 05/26 18:00 Order name: CT Head C Spine; Complete Time: 18:55 snw 05/26 18:00 Order name: Alcohol Serum/Plasma; Complete Time: 20:57 EDMS 05/26 18:01 Order name: EKG; Complete Time: 18:02 snw 05/26 18:01 Order name: EKG - Nurse/Tech; Complete Time: 18:26 snw 05/26 19:04 Order name: Manual Differential; Complete Time: 19:16 EDMS Administered Medications: 19:15 Drug: Potassium Effervescent Tablet 50 mEq Route: PO; cc3 20:00 Follow up: Response: No adverse reaction cc3 20:00 Drug: Cyanocobalamin 1000 mcg Route: IM; Site: right deltoid; cc3 20:30 Follow up: Response: No adverse reaction cc3 Disposition: 05/27 06:51 Co-signature as Attending Physician, Joe Mcfadden MD I agree with the assessment and everett plan of care. Disposition: 05/26/18 20:58 Discharged to Home. Impression: Other fall on same level, Alcohol use, unspecified with intoxication. - Condition is Stable. - Discharge Instructions: Alcohol Intoxication, Fall Prevention in the Home, Alcohol Abuse and Nutrition. - Medication Reconciliation Form, Thank You Letter, Antibiotic Education, Prescription Opioid Use form. - Follow up: Colin Garcia MD; When: 2 - 3 days; Reason: Recheck today's complaints, Continuance of care, Re-evaluation by your physician. Follow up: Emergency Department; When: As needed; Reason: Worsening of condition. Signatures: Dispatcher [employer] June Walker RN RN sv Anderson, Corey, MD MD cha Therrien, Shelly, PASSENGER TIRE BUILDER-C PASSENGER TIRE BUILDER-Csnw Pedro Negron RN RN jd3 Peri Tellez cc3 Corrections: (The following items were deleted from the chart) 05/26 23:10 20:58 05/26/2018 20:58 Discharged to Home. Impression: Other fall on same level; jd3 Alcohol use, unspecified with intoxication. Condition is Stable. Forms are Medication Reconciliation Form, Thank You Letter, Antibiotic Education, Prescription Opioid Use. Follow up: Colin Garcia; When: 2 - 3 days; Reason: Recheck today's complaints, Continuance of care, Re-evaluation by your physician. Follow up: Emergency Department; When: As needed; Reason: Worsening of condition. snw
--- NOTE | 2018-05-26 20:59 | ER ---
Nurse's Notes [facility] Name: Jean Lucio III Age: 78 yrs Sex: Male : 1940 Arrival Date: 05/26/2018 Time: 17:28 Bed 14 Private MD: Colin Garcia E Diagnosis: Other fall on same level;Alcohol use, unspecified with intoxication Presentation: 05/26 17:29 Presenting complaint: Patient states: 3 falls today with no reason of falling. Denies sv head injury or LOC. Reports EMS came to his residence and the left after clearing him. Pt smells of ETOH. Care prior to arrival: None. 17:29 Acuity: RITA 3 sv 17:29 Method Of Arrival: Wheelchair sv 17:30 Transition of care: patient was not received from another setting of care. Onset of sv symptoms was May 26, 2018. 18:24 Risk Assessment: Do you want to hurt yourself or someone else? Patient reports no la1 desire to harm self or others. Initial Sepsis Screen: Does the patient meet any 2 criteria? No. Patient's initial sepsis screen is negative. Does the patient have a suspected source of infection? No. Patient's initial sepsis screen is negative. Triage Assessment: 17:32 General: Appears in no apparent distress. comfortable, Behavior is calm, cooperative. sv Pain: Complains of pain in left elbow. Neuro: Level of Consciousness is awake, alert, obeys commands, Oriented to person, place, time, situation, Moves all extremities. Respiratory: Respiratory effort is even, unlabored, Respiratory pattern is regular, symmetrical. Historical: - Allergies: 17:31 No Known Allergies; sv - PMHx: 17:31 Anemia; COPD; diagnosed with cancer at [place], did not seek treatment; Hyperlipidemia; sv Hypertension; Myocardial infarction; - Immunization history:: Flu vaccine is up to date. - Social history:: Smoking status: Patient uses tobacco products, smokes one-half pack cigarettes per day, Patient uses alcohol, but reports only rare drinking. - Ebola Screening: : No symptoms or risks identified at this time. Screenin:24 Abuse screen: Denies threats or abuse. Denies injuries from another. Nutritional la1 screening: No deficits noted. Tuberculosis screening: No symptoms or risk factors identified. Fall Risk Fall in past 12 months (25 points). No secondary diagnosis (0 pts). IV access (20 points). Ambulatory Aid- None/Bed Rest/Nurse Assist (0 pts). Gait- Weak (10 pts.). Mental Status- Overestimates/Forgets Limitations (15 pts.). Total Lopez Fall Scale indicates High Risk Score (45 or more points). Placed Close to Nursing Station. Assessment: 18:53 General: Appears in no apparent distress. Behavior is calm, cooperative, Smells of la1 alcohol. Pain: Denies pain. Neuro: Level of Consciousness is awake, alert, obeys commands, Oriented to person, place, time, situation, Speech is normal, Facial symmetry appears normal, Pupils are PERRLA. Cardiovascular: Capillary refill < 3 seconds Patient's skin is warm and dry. Respiratory: Airway is patent Respiratory effort is even, unlabored, Respiratory pattern is regular, symmetrical. GI: No signs and/or symptoms were reported involving the gastrointestinal system. : No signs and/or symptoms were reported regarding the genitourinary system. 19:15 Reassessment: Patient appears in no apparent distress at this time. Patient and/or cc3 family updated on plan of care and expected duration. Pain level reassessed. Patient is alert, oriented x 3, equal unlabored respirations, skin warm/dry/pink. Received this male patient from morning shift RN Estevan as a case of fall injury and alcohol intoxication. No IV cannula in situ, noted to have superficial abrasions on the left elbow. 20:58 Reassessment: Patient appears in no apparent distress at this time. Patient and/or cc3 family updated on plan of care and expected duration. Pain level reassessed. Patient is alert, oriented x 3, equal unlabored respirations, skin warm/dry/pink. Patient ordered for discharge home, to contact his friend to accompany him going home, charge nurse Dorota informed. 21:45 Reassessment: Patient appears in no apparent distress at this time. Patient and/or cc3 family updated on plan of care and expected duration. Pain level reassessed. Patient is alert, oriented x 3, equal unlabored respirations, skin warm/dry/pink. 22:30 Reassessment: Patient appears in no apparent distress at this time. Patient and/or cc3 family updated on plan of care and expected duration. Pain level reassessed. Patient is alert, oriented x 3, equal unlabored respirations, skin warm/dry/pink. Patient comfortably sleeping, kept undisturbed. 23:05 Reassessment: Patient appears in no apparent distress at this time. Patient and/or cc3 family updated on plan of care and expected duration. Pain level reassessed. Patient is alert, oriented x 3, equal unlabored respirations, skin warm/dry/pink. Patient's friend named Jamaal came and accompanied the patient going home. No IV cannula in situ. Discharge instructions given to patient and left ER vitally stable by wheelchair with his friend. Vital Signs: 17:31 BP 123 / 50; Pulse 85; Resp 16; Temp 97.8; Pulse Ox 98% ; Weight 72.57 kg; Height 5 ft. sv 11 in. (180.34 cm); Pain 2/10; 19:15 BP 110 / 57; Pulse 84; Resp 17 S; Temp 97.9(O); Pulse Ox 98% on R/A; cc3 20:30 BP 121 / 62; Pulse 83; Resp 16 S; Pulse Ox 97% on R/A; cc3 21:45 BP 119 / 53; Pulse 79; Resp 18 S; Pulse Ox 98% on R/A; cc3 22:20 BP 112 / 63; Pulse 82; Resp 16 S; Pulse Ox 98% on R/A; cc3 22:45 BP 116 / 58; Pulse 83; Resp 17 S; Pulse Ox 97% on R/A; cc3 17:31 Body Mass Index 22.32 (72.57 kg, 180.34 cm) sv ED Course: 17:28 Patient arrived in ED. mr 17:28 Colin Garcia MD is Private Physician. mr 17:30 Triage completed. sv 17:32 Arm band placed on. sv 17:42 Patient has correct armband on for positive identification. Bed in low position. Call kr2 light in reach. Side rails up X2. conveyor monitor on. Pulse ox on. NIBP on. 17:46 [facility] Baltazar [facility]C [facility]. snw 17:46 Joe Mcfadden MD is Attending Physician. snw 18:20 Initial lab(s) drawn, by me, sent to lab. Missed attempt(s): 22 gauge in left kr2 antecubital area. Bleeding controlled, band aid applied, catheter tip intact. 18:24 Attema, Estevan, RN is Primary Nurse. la1 18:26 EKG done, by ED staff, reviewed by Stephania MEYERS. 5 18:30 CT completed. Patient tolerated procedure well. Patient moved to CT via stretcher. vr Patient moved back from CT. 18:33 CT Head C Spine In Process Unspecified. EDMS 20:57 Colin Garcia MD is Referral Physician. snw 21:57 No provider procedures requiring assistance completed. Patient did not have IV access jd3 during this emergency room visit. Administered Medications: 19:15 Drug: Potassium Effervescent Tablet 50 mEq Route: PO; cc3 20:00 Follow up: Response: No adverse reaction cc3 20:00 Drug: Cyanocobalamin 1000 mcg Route: IM; Site: right deltoid; cc3 20:30 Follow up: Response: No adverse reaction cc3 Outcome: 20:58 Discharge ordered by MD. snw 21:57 Discharged to home with friend, awaiting ride. jd3 21:57 Condition: stable 21:57 Discharge instructions given to patient, Instructed on discharge instructions, follow up and referral plans. Demonstrated understanding of instructions, follow-up care. 23:10 Patient left the ED. jd3 Signatures: Dispatcher [employer] EDUT June Florence RN RN sv Therrien, Shelly, FNP-C OUTSOLE CUTTER MACHINE-Csn Thea Chaves Victoria vr Estevan Clay RN RN [email or web address] Giselle Cao 5 Pedro Negron RN RN jd3 hCelsea Haile RN RN kr2 Peri Tellez cc3 Corrections: (The following items were deleted from the chart) : 17:29 Presenting complaint: Patient states: 3 falls today with no reason of falling. sv Denies head injury or LOC. sv 17:56 17:29 Presenting complaint: Patient states: 3 falls today with no reason of falling. sv Denies head injury or LOC. Reports EMS came to his residence and the left after clearing him. sv 05/27 04:05 05/26 20:30 Reassessment: Patient appears in no apparent distress at this time. Patient cc3 and/or family updated on plan of care and expected duration. Pain level reassessed. Patient is alert, oriented x 3, equal unlabored respirations, skin warm/dry/pink. cc3
[2018-05-26 23:24] VITALS: BP 123/50; TEMP 97.8; O2SAT 98
--- NOTE | 2018-05-27 06:37 | EKG ---
Test Date: 2018-05-26 Test Time: 18:12:37 School Psychology Specialist: LUIS MIGUEL MEASUREMENT RESULTS: Intervals: Rate: 84 ME: 198 QRSD: 88 QT: 388 QTc: 458 [place]: P: 118 ME: 198 QRS: 51 T: 63 INTERPRETIVE STATEMENTS: Normal sinus rhythm Normal ECG Compared to ECG 04/03/2018 20:17:31 No significant changes Electronically Signed On 05-27-18 06:37:19 CDT by Tristian Pabon
== END 2018-05-26 23:10 | disposition home or self-care (01) ==
LOC: ER 17:26
DX: F10.129 Alcohol abuse with intoxication, unspecified (principal); W18.39XA Other fall on same level, initial encounter; Y93.9 Activity, unspecified; Y92.9 Unspecified place or not applicable; I10 Essential (primary) hypertension; F17.210 Nicotine dependence, cigarettes, uncomplicated
CPT/HCPCS: 36415; 70450; 72125; 80048; 80320; 85025; 85610; 85730; 86850; 86900; 86901; 93005; 96372; 99285; J3420

== ENCOUNTER 2018-06-25 11:13 | Inpatient (IN) | payer OTHER ==
[2018-06-25 12:08] LABS: Absolute Lymphocytes (CBC) 0.9 K/uL (0.7-4.9); Absolute Monocytes 1.5 K/uL (0.1-1.3); Absolute Neutrophil 5.2 K/uL (1.8-8.0); Basophils % 0.1 % (0-1.3); Eosinophils % 0.3 % (0-4.4); Hematocrit 33.6 % (39.6-49.0); Lymphocytes % 12.2 % (15.3-44.8); MCH 30.3 pg (27.0-35.0); MCV 88.9 fL (80-100); MPV 7.8 fL (7.6-11.3); RBC Red Blood Cell Count 3.78 M/uL (4.33-5.43)
--- NOTE | 2018-06-25 12:11 | RAD REPORT ---
EXAM DESCRIPTION: CT - [id number] - 06/25/2018 11:59 am CLINICAL HISTORY: Trauma, head and neck injury. AMS, fall COMPARISON: Head C Spine Mpr Wo Con dated 05/26/2018 TECHNIQUE: Axial 5 mm thick images of the head were obtained. Axial 2 mm thick images of the cervical spine were obtained with sagittal and coronal reconstruction images generated and reviewed. All CT scans are performed using dose optimization technique as appropriate and may include automated exposure control or mA/KV adjustment according to patient size. FINDINGS: CT HEAD WITHOUT CONTRAST: No acute hemorrhage, hydrocephalus or extra-axial collection is identified.Mild generalized brain atr ophy is present with mild periventricular and deep white matter chronic microvascular ischemic change s.No areas of brain edema or midline shift. Near complete opacification right maxillary antrum seen. The paranasal sinuses and mastoids are other hunter clear.The calvarium is intact. CT CERVICAL SPINE WITHOUT CONTRAST: No fracture or subluxation.Moderate mid and lower cervical degenerative change with small endplate os teophyte.No prevertebral soft tissues swelling is identified. Carotid atherosclerosis. IMPRESSION: No acute intracranial or cervical spine findings.
[2018-06-25 12:12] LABS: Protime INR 1.41
--- NOTE | 2018-06-25 12:21 | RAD REPORT ---
EXAM DESCRIPTION: RAD - Pelvis - 06/25/2018 12:12 pm CLINICAL HISTORY: fall Fall, pelvic pain. COMPARISON: No comparisons FINDINGS: Mild bilateral hip arthritic changes are present. No fracture, dislocation or AVN. Aortoil iac atherosclerosis seen.
--- NOTE | 2018-06-25 12:24 | RAD REPORT ---
EXAM DESCRIPTION: RAD - Chest Single View - 06/25/2018 12:12 pm CLINICAL HISTORY: AMS Chest pain. COMPARISON: Chest Single View dated 02/23/2018; Chest Single View dated 02/22/2018; Chest Single View dated 11/10/2017; Chest Pa And Lat (2 Views) dated 11/07/2017 FINDINGS: Portable technique limits examination quality. The lungs are grossly clear. The heart is normal in size. No displaced fractures. IMPRESSION: No acute intrathoracic process suspected.
[2018-06-25 12:26] LABS: ALT/SGPT 39 U/L (12-78); AST/SGOT 76 U/L (15-37); Albumin 3.1 g/dL (3.4-5.0); Alkaline Phosphatase 134 U/L (45-117); BUN Blood Urea Nitrogen 14 mg/dL (7-18); Bicarbonate 23 mmol/L (21-32); Bilirubin Direct 1.2 mg/dL (0-0.2); Bilirubin Total 3.2 mg/dL (0.2-1.0); CKMB Creatine Kinase MB 2.5 ng/mL (0.3-3.6); Creatine Phosphokinase 519 U/L (39-308); Glucose Level 169 mg/dL (74-106); Lipase 192 U/L (73-393); Potassium 3.5 mmol/L (3.5-5.1); Protein, Total 8.2 g/dL (6.4-8.2); Sodium Level 138 mmol/L (136-145); Troponin (Emerg Dept Use Only) < 0.02 ng/mL (0.0-0.045)
[2018-06-25] MEDS ORDERED: CEFTRIAXONE/SWI 1gm 2 GM/20 ML SYR ONE (13:12)
[2018-06-25] MEDS ORDERED: NA CHLORIDE 0.9% 2,000 ML ONE (13:12)
[2018-06-25 13:13] LABS: Anisocytosis 1+; Blood Morphology Comment NOTED (NOT SEEN); Platelet Estimate DECR; Poikilocytosis 1+; Polychromasia 1+; Urine White Blood Cell Casts OK
[2018-06-25] MEDS ORDERED: ONDANSETRON 4 MG/2 ML VIAL IV PRN (13:16)
--- NOTE | 2018-06-25 13:18 | EDPHYS ---
Physician Documentation [facility] Name: Jean Lucio III Age: 78 yrs Sex: Male : 1940 Arrival Date: 06/25/2018 Time: 11:18 Bed 20 Private MD: ED Physician Len Lei HPI: 06/25 11:35 This 78 yrs old Male presents to ER via EMS with complaints of AMS, fall. cp 11:35 The patient presents with confusion. Onset: The symptoms/episode began/occurred at an cp unknown time. Possible causes: unknown. 11:35 Patient's baseline: Neuro: alert and fully oriented, Motor: no deficits, Speech: normal.cp 11:35 Unable to obtain HPI due to altered mental status. EMS reports patient was found on cp ground in home this morning by son and helped back into bed. Patient has seemed confused and unable to get out of bed today. Last known normal unknown. Historical: - Allergies: 11:33 No Known Allergies; em - PMHx: 11:33 Anemia; diagnosed with cancer at [place], did not seek treatment; Myocardial infarction; em Hypertension; Hyperlipidemia; COPD; - Immunization history:: Adult Immunizations unknown. - Social history:: Smoking status: unknown. - Ebola Screening: : Unable to complete screening because patient is disoriented, . ROS: 11:40 Constitutional: Negative for fever. cp 11:40 Cardiovascular: Negative for chest pain. cp 11:40 Abdomen/GI: Negative for abdominal pain. 11:40 Unable to obtain ROS due to altered mental status. Exam: 11:45 Constitutional: The patient appears in no acute distress, alert, awake, cp non-diaphoretic, non-toxic, well developed, well nourished. 11:45 Head/Face: Normocephalic, atraumatic. cp 11:45 Eyes: Periorbital structures: appear normal, Pupils: equal, round, and reactive to light and accomodation, Conjunctiva: normal, no exudate, no injection, Sclera: no appreciated abnormality, Lids and lashes: appear normal, bilaterally. 11:45 ENT: External ear(s): are unremarkable, Ear canal(s): are normal, clear, TM's: bulging, is not appreciated, bilaterally, dullness, bilaterally, erythema, is not appreciated, bilaterally, Nose: is normal, Mouth: Lips: dry, Oral mucosa: moist, Posterior pharynx: is normal, airway is patent, no erythema, no exudate. 11:45 Neck: ROM/movement: is normal, is supple, without pain, no range of motions limitations, no meningismus, no nuchal rigidity. 11:45 Chest/axilla: Inspection: normal, Palpation: is normal, no crepitus, no tenderness. 11:45 Cardiovascular: Rate: tachycardic, Rhythm: regular, Edema: is not appreciated, JVD: is not appreciated. 11:45 Respiratory: the patient does not display signs of respiratory distress, Respirations: normal, no use of accessory muscles, no retractions, no splinting, no tachypnea, labored breathing, is not present, Breath sounds: are clear throughout, no decreased breath sounds, no stridor, no wheezing. 11:45 Abdomen/GI: Inspection: abdomen appears normal, Bowel sounds: active, all quadrants, Palpation: abdomen is soft and non-tender, in all quadrants, rebound tenderness, is not appreciated, voluntary guarding, is not appreciated, involuntary guarding, is not appreciated. 11:45 Back: pain, is absent, ROM is normal. 11:45 Skin: cellulitis, is not appreciated, no rash present. 11:45 Neuro: Orientation: to person, Mentation: able to follow commands, slow to respond, confused, Motor: moves all fours, no focal deficits noted, Sensation: no obvious gross deficits. 13:00 ECG was reviewed by the Attending Physician. cp Vital Signs: 11:33 BP 162 / 59; Pulse 111; Resp 25; Temp 98.5(O); Pulse Ox 100% on R/A; Pain 0/10; em 12:30 BP 171 / 59; Pulse 108; Resp 19; Pulse Ox 99% on R/A; em 13:30 BP 147 / 53; Pulse 101; Resp 21; Pulse Ox 99% on R/A; em 14:37 BP 129 / 49; Pulse 102; Resp 20; Temp 98.4(O); Pulse Ox 99% ; Pain 0/10; em 11:33 Oconnor-Valdez (FACES) em 14:37 Oconnor-Valdez (FACES) em MDM: 11:20 Patient medically screened. cp 13:15 Data reviewed: vital signs, nurses notes, lab test result(s), EKG, radiologic studies, cp CT scan, plain films. 13:15 Test interpretation: by ED physician or midlevel provider: ECG, plain radiologic cp studies. 13:20 Physician consultation: Mamadou Grove MD was contacted at 13:20, regarding admission, to the telemetry unit. 06/25 11:21 Order name: Urine Culture cp 06/25 11:21 Order name: Basic Metabolic Panel 06/25 11:21 Order name: Blood Culture Adult (2) cp 06/25 11:21 Order name: CBC with Diff cp 06/25 11:21 Order name: Ckmb cp 06/25 11:21 Order name: CPK cp 06/25 11:21 Order name: Lactate cp 06/25 11:21 Order name: LFT's cp 06/25 11:21 Order name: Lipase cp 06/25 11:21 Order name: Procalcitonin cp 06/25 11:21 Order name: Protime (+inr) 06/25 11:21 Order name: Ptt, Activated cp 06/25 11:21 Order name: Troponin (emerg Dept Use Only) cp 06/25 11:21 Order name: Urine Microscopic Only 06/25 11:52 Order name: Glucose, Ancillary Testing; Complete Time: 12:08 EDMS 06/25 12:09 Interpretation: GLUC,ANCIL 151; Reviewed. 06/25 12:14 Order name: Protime (+INR); Complete Time: 12:35 EDMS 06/25 12:14 Order name: PTT, Activated Partial Thromb; Complete Time: 12:35 EDMS 06/25 12:18 Order name: CBC with Automated Diff EDNJ 06/25 12:21 Order name: Lactate; Complete Time: 12:35 EDMS 06/25 12:26 Order name: Basic Metabolic Panel; Complete Time: 12:35 EDMS 06/25 12:26 Order name: Liver (Hepatic) Function; Complete Time: 12:35 EDMS 06/25 13:14 Interpretation: Normal except: AST 76; ALK 134; BILIT 3.2; BILID 1.2; ALB 3.1; GLOB cp 5.1; A/G 0.6. 06/25 12:26 Order name: Creatine Phosphokinase; Complete Time: 12:35 EDMS 06/25 12:26 Order name: CKMB Creatine Kinase MB; Complete Time: 12:35 EDMS 06/25 12:26 Order name: Troponin (Emerg Dept Use Only); Complete Time: 12:35 EDMS 06/25 12:26 Order name: Lipase; Complete Time: 12:35 EDMS 06/25 12:36 Order name: Procalcitonin; Complete Time: 12:36 EDMS 06/25 12:37 Order name: Influenza Screen (a \T\ B) 06/25 12:58 Order name: Urine Dipstick--Ancillary (enter results) em1 06/25 13:14 Order name: CBC Smear Scan EDNJ 06/25 13:16 Order name: ETOH Level 06/25 11:21 Order name: Chest Single View XRAY 06/25 11:21 Order name: Accucheck; Complete Time: 12:50 06/25 11:21 Order name: Cardiac monitoring; Complete Time: 12:50 06/25 11:21 Order name: EKG - Nurse/Tech; Complete Time: 14:23 06/25 11:21 Order name: IV Saline Lock - Large Bore; Complete Time: 12:50 06/25 11:21 Order name: Labs collected and sent; Complete Time: 12:50 06/25 11:21 Order name: O2 Per Protocol; Complete Time: 12:50 06/25 11:21 Order name: O2 Sat Monitoring; Complete Time: 12:50 06/25 11:21 Order name: Urine Dipstick-Ancillary (obtain specimen); Complete Time: 12:50 06/25 11:24 Order name: XRAY Pelvis 06/25 11:24 Order name: Misc. Order: fall precautions; Complete Time: 12:22 06/25 11:39 Order name: CT Head C Spine 06/25 11:41 Order name: [place]; Complete Time: 12:50 cp 06/25 12:12 Order name: CT; Complete Time: 12:35 EDMS 06/25 12:22 Order name: RAD; Complete Time: 12:35 EDMS 06/25 12:25 Order name: RAD; Complete Time: 12:35 EDMS 06/25 13:15 Order name: US Abdomen Limited 06/25 13:16 Order name: LAB Add On 06/25 13:16 Order name: AMMONIA cp 06/25 13:29 Order name: Urine Microscopic Only EDMS 06/25 13:29 Order name: Urine Dipstick-Ancillary EDMS 06/25 13:48 Order name: Alcohol Serum/Plasma EDMS 06/25 13:51 Order name: Lactate em 06/25 14:12 Order name: Ammonia EDMS 06/25 14:14 Order name: Alcohol Serum/Plasma EDMS 06/25 14:16 Order name: Influenza Screen (A EDMS 06/25 14:18 Order name: Lactate EDMS 06/25 15:01 Order name: US EDMS EC:00 Rate is 104 beats/min. Rhythm is regular. AL interval is prolonged at 204 msec. QRS cp interval is normal. QT interval is normal. Interpreted by me. Reviewed by me. Administered Medications: 13:10 Drug: NS 0.9% 1000 ml Route: IV; Rate: 75 ml/hr; Site: right antecubital; em 15:05 Follow up: IV Status: Infusion continued upon admission; IV Intake: 100ml em 13:11 Drug: NS 0.9% 1000 ml Route: IV; Rate: 1 bolus; Site: right antecubital; em 14:20 Follow up: IV Status: Completed infusion; IV Intake: 1000ml em 13:12 Drug: Rocephin 2 grams Route: IV; Rate: bolus; Site: right antecubital; ss 13:30 Follow up: Response: No adverse reaction; IV Status: Completed infusion; IV Intake: 20mlem Disposition: 14:00 Chart complete. Disposition: 06/25/18 13:17 Hospitalization ordered by Mamadou Grove for Inpatient Admission. Preliminary diagnosis are Urinary tract infection, site not specified, Altered mental status, unspecified, Other slipping, tripping and stumbling and falls. - Bed requested for Telemetry/MedSurg (Inpatient). - Status is Inpatient Admission. em - Condition is Stable. - Problem is new. - Symptoms have improved. UTI on Admission? Yes Addendum: 06/27/2018 09:09 Co-signature as Attending Physician, Len Lei MD I agree with the assessment and k dr plan of care. Signatures: Dis[facility] Len Lei MD MD [facility] Joel Horvath, DIRECTOR OF INSTRUCTIONAL TECHNOLOGY DIRECTOR OF INSTRUCTIONAL TECHNOLOGY em Asmita Jean RN RN ss Joe Hercules PA PA cp Olga Byrd, RN RN df Corrections: (The following items were deleted from the chart) 06/25 12:09 12:08 Reviewed. cp cp 14:14 13:17 Hospitalization Ordered by Mamadou Grove MD for Inpatient Admission. Preliminary df diagnosis is Urinary tract infection, site not specified; Altered mental status, unspecified; Other slipping, tripping and stumbling and falls. Bed requested for Telemetry/MedSurg (Inpatient). Status is Inpatient Admission. Condition is Stable. Problem is new. Symptoms have improved. UTI on Admission? Yes. cp 15:06 14:14 06/25/2018 13:17 Hospitalization Ordered by Mamadou Grove MD for Inpatient em Admission. Preliminary diagnosis is Urinary tract infection, site not specified; Altered mental status, unspecified; Other slipping, tripping and stumbling and falls. Bed requested for Telemetry/MedSurg (Inpatient). Status is Inpatient Admission. Condition is Stable. Problem is new. Symptoms have improved. UTI on Admission? Yes. df 06/26 13:06/24 13:00 ECG was reviewed by the Attending Physician. cp cp 06/26 13:06/24 13:00 Rate is 104 beats/min. Rhythm is regular. AL interval is prolonged at 204 cp msec. QRS interval is normal. QT interval is normal. Interpreted by me. Reviewed by me. cp
--- NOTE | 2018-06-25 13:18 | ER ---
Nurse's Notes [facility] Name: Jean Lucio III Age: 78 yrs Sex: Male : 1940 Arrival Date: 06/25/2018 Time: 11:18 Bed 20 Private MD: Diagnosis: Urinary tract infection, site not specified;Altered mental status, unspecified;Other slipping, tripping and stumbling and falls Presentation: 06/25 11:29 Presenting complaint: EMS states: called out for fall that was unwitnessed by son, em found on floor around 0430 this morning, pt was also AMS and is not normal for pt, pt was recently in rehab for alcohol abuse, pt currently A\T\O 1, smells of urine, no apparent trauma noted, BP 174/71, HR 120, Temp. Ax 101.7. Transition of care: patient was not received from another setting of care. Onset of symptoms was June 25, 2018. Risk Assessment: Do you want to hurt yourself or someone else? Patient reports no desire to harm self or others. Initial Sepsis Screen: Does the patient meet any 2 criteria? Altered Mental Status. HR > 90 bpm. Yes Does the patient have a suspected source of infection? Yes: Dysuria/Frequency/Urgency/UTI. Care prior to arrival: None. 11:29 Method Of Arrival: EMS: [facility] em 11:29 Acuity: RITA 2 ss Triage Assessment: 11:33 General: Appears in no apparent distress. comfortable, unkempt, Behavior is calm, em cooperative. Pain: Denies pain. Historical: - Allergies: 11:33 No Known Allergies; em - PMHx: 11:33 Anemia; diagnosed with cancer at [place], did not seek treatment; Myocardial infarction; em Hypertension; Hyperlipidemia; COPD; - Immunization history:: Adult Immunizations unknown. - Social history:: Smoking status: unknown. - Ebola Screening: : Unable to complete screening because patient is disoriented, . Screenin:35 Abuse screen: no apparent signs noted. Nutritional screening: No deficits noted. em Tuberculosis screening: No symptoms or risk factors identified. Fall Risk Fall in past 12 months (25 points). No secondary diagnosis (0 pts). Mental Status- Overestimates/Forgets Limitations (15 pts.). Assessment: 11:33 General: Appears in no apparent distress. comfortable, Behavior is calm, cooperative, em quiet, Smells of urine. Pain: Denies pain. Neuro: Level of Consciousness is awake, alert, obeys commands, Oriented to person, place. Cardiovascular: Heart tones S1 S2 present Patient's skin is warm and dry. Respiratory: Airway is patent Respiratory effort is even, unlabored, Respiratory pattern is regular, symmetrical. GI: Abdomen is flat, Abd is soft X 4 quads Abdomen is tender to palpation in suprapubic area. : Urine is cloudy. Derm: Skin is fragile, is thin, Skin is pink, warm \T\ dry. Musculoskeletal: Range of motion: intact in all extremities. 11:40 General: The previous assessment is accurate, call light remains within reach. . ss 12:00 Reassessment: bladder scan post void 412 mL, provider notified. em 12:30 Reassessment: Patient appears in no apparent distress at this time. Patient and/or em family updated on plan of care and expected duration. Pain level reassessed. A\T\O x 2, respirations even and unlabored, skin pink warm and dry Patient states symptoms have not improved. 13:28 Reassessment: Patient appears in no apparent distress at this time. pt A\T\O x 2, pt em roommate came to check on pt status, reports he lives with him and has been steadily become worse, reports is more altered than normal, provider notified, pending admission. 14:39 Reassessment: Patient appears in no apparent distress at this time. Patient and/or em family updated on plan of care and expected duration. Pain level reassessed. pt A\T\O x 2, respirations even unlabored, skin pink warm and dry. Vital Signs: 11:33 BP 162 / 59; Pulse 111; Resp 25; Temp 98.5(O); Pulse Ox 100% on R/A; Pain 0/10; em 12:30 BP 171 / 59; Pulse 108; Resp 19; Pulse Ox 99% on R/A; em 13:30 BP 147 / 53; Pulse 101; Resp 21; Pulse Ox 99% on R/A; em 14:37 BP 129 / 49; Pulse 102; Resp 20; Temp 98.4(O); Pulse Ox 99% ; Pain 0/10; em 11:33 OconnorLisa ([facility]ACES) em 14:37 OconnorLisa ([facility]) em ED Course: 11:18 Patient arrived in ED. em1 11:20 Joe Hercules PA is PHCP. cp 11:20 Len Lei MD is Attending Physician. cp 11:29 Joel Horvath LVN is Primary Nurse. em 11:30 Inserted saline lock: 22 gauge in right antecubital area, using aseptic technique. mh5 Blood collected. 11:33 Arm band placed on. em 11:35 Patient has correct armband on for positive identification. Placed in gown. Bed in low em position. Call light in reach. 11:45 Initial lab(s) drawn, by me, sent to lab. First set of blood cultures drawn by me, mh5 Second set of blood cultures drawn by me. 11:57 CT completed. Patient tolerated procedure well. Patient moved to CT via stretcher. sj Patient moved back from [place]. 12:00 Triage completed. ss 12:51 Urine collected: Urbina catheter specimen, cloudy, Amount Returned: 300mL. Urbina cath em inserted, using sterile technique, 16 Fr., by me, balloon inflated, to gravity drainage, urine specimen collected. returned cloudy urine. Patient tolerated well. 13:04 EKG done, by liquified natural gas technician. reviewed by Joe CASTAÑEDA. at1 13:16 Mamadou Grove MD is Hospitalizing Provider. cp 15:03 No provider procedures requiring assistance completed. Patient admitted, IV remains in em place. Administered Medications: 13:10 Drug: NS 0.9% 1000 ml Route: IV; Rate: 75 ml/hr; Site: right antecubital; em 15:05 Follow up: IV Status: Infusion continued upon admission; IV Intake: 100ml em 13:11 Drug: NS 0.9% 1000 ml Route: IV; Rate: 1 bolus; Site: right antecubital; em 14:20 Follow up: IV Status: Completed infusion; IV Intake: 1000ml em 13:12 Drug: Rocephin 2 grams Route: IV; Rate: bolus; Site: right antecubital; ss 13:30 Follow up: Response: No adverse reaction; IV Status: Completed infusion; IV Intake: 20mlem Intake: 13:30 IV: 20ml; Total: 20ml. em 14:20 IV: 1000ml; Total: 1020ml. em 15:05 IV: 100ml; Total: 1120ml. em Output: 15:05 Urine: 500ml (Urbina); Total: 500ml. em Outcome: 13:17 Decision to Hospitalize by Provider. cp 15:03 Admitted to Med/surg accompanied by tech, via wheelchair, room 409, on monitor, with em chart, Report called to JENIFER Magdaleno 15:03 Condition: good 15:03 Instructed on the need for admit. 15:06 Patient left the ED. em Signatures: Milly Carlson Edgar, SHRIMP POND LABORER SHR[employer] POND LABORER em Nura Cao em1 Asmita Jean RN RN ss Koki Cid, lotus notes developer EKG Tat1 Joe Hercules PA PA Giselle Owens [facility]
[2018-06-25 13:28] LABS: Urine Bacteria >50 /HPF (NONE SEEN); Urine Culture Reflex Order REFLEXED
[2018-06-25 13:29] LABS: Urine Blood 2+ (NEG); Urine Glucose NEGATIVE (NEG); Urine Protein 2+ (NEG); Urine pH 6.5 (5.0-7.0)
[2018-06-25] MEDS: NA CHLORIDE 0.9% 1,000 ML IV SCH ×2 (14:00→23:34)
--- NOTE | 2018-06-25 15:01 | RAD REPORT ---
EXAM DESCRIPTION: US - Abdomen Exam Limited - 06/25/2018 1:47 pm CLINICAL HISTORY: Abdominal pain. Elevated liver function test enzymes FINDINGS: Multiple gallstones are present. The gallbladder wall is not significantly thickened. The biliary tree is normal caliber. A cirrhotic liver is seen. Normal flow within the portal vein is not clearly seen IMPRESSION: Cholelithiasis without evidence cholecystitis Cirrhosis Normal flow within the portal vein is not clearly seen. It is uncertain if this is secondary to patho logy such as thrombus or technical factors. If clinically indicated a CT scan with IV contrast could be obtained to further evaluate the portal vein
--- NOTE | 2018-06-25 16:21 | EKG ---
Test Date: 2018-06-25 Test Time: 12:53:21 Supervisor [address]ing Lot: [facility] MEASUREMENT RESULTS: Intervals: Rate: 104 CT: 204 QRSD: 90 QT: 358 QTc: 470 [place]: P: 66 CT: 204 QRS: 63 T: 72 INTERPRETIVE STATEMENTS: Sinus tachycardia Nonspecific ST abnormality Abnormal ECG Compared to ECG 05/26/2018 18:12:37 ST (T wave) deviation now present Sinus rhythm no longer present Electronically Signed On 06-25-18 16:20:58 RN CORONARY CARE UNIT by Tristian Pabon
[2018-06-25] MEDS ORDERED: LORazepam 2 MG/ML VIAL IV PRN (16:46)
[2018-06-25] MEDS ORDERED: GLUCAGON 1 MG/VIAL IM PRN (16:48)
[2018-06-25] MEDS ORDERED: D50W 25 GM/50 ML SYRINGE IV PRN (16:48)
[2018-06-25 17:22] VITALS: BMI 2929.1
[2018-06-25] MEDS ORDERED: NA CHLORIDE 0.9% 1,000 ML IV ONE (17:53)
[2018-06-25] MEDS: CARVEDILOL 3.125 MG TAB PO SCH (20:34)
[2018-06-25] MEDS: ATORVASTATIN 10 MG TAB PO SCH (20:34)
[2018-06-25] MEDS: INSULIN GLARGINE 100 UNITS/ML SQ SCH (20:35)
[2018-06-25] MEDS: INSULIN -REGULAR HUMAN 50 UNIT/0.5 ML ML SQ SCH (21:00)
[2018-06-25] MEDS ORDERED: HOME MED 1 EA UNK (Simvastatin [Simvastatin] 20 MG) PO SCH (21:00)
[2018-06-25] MEDS ORDERED: INSULIN DETEMIR 15 UNIT SQ SCH (21:00)
[2018-06-26] MEDS: ACETAMINOPHEN 500 MG TAB PO PRN ×2 (00:16→21:30)
--- NOTE | 2018-06-26 02:56 | HP ---
Date of Admission: 06/25/2018 Chief Complaint: Altered mental status. Code Status: Full. History Of Present Illness: The patient is a 78-year-old male with past medical history of diabetes, anemia, hypertension, hyperlipidemia, COPD, history of [place], and apparent cancer at the [place], who lives with a roommate behind son's apartment, was found down, was confused, thought to have a possible blad fernie infection. Comes in to the ER for further evaluation. The patient's symptoms are constant, mode rate, progressively worsening. He does drink alcohol regularly. Upon arrival, his workup showed kaylynn vated lactate level. His CK level was high at 519. Troponin was negative. Procalcitonin was negati ve. White count was normal. Alcohol level was 3. UA was positive. The patient was then referred f or admission. When seen in the ER, he was awake, alert, and oriented to self and place only. Past Medical History: COPD, history of DE, hypertension, hyperlipidemia, anemia, apparent diagnosis of cancer at the [place]. Did not seek treatment. Surgical History: The patient denies any surgeries. Allergies: NO KNOWN DRUG ALLERGIES. Medications: Reviewed. Social History: The patient drinks regularly. Denies any smoking. Lives with a roommate close to h is son. Family History: The patient denies any significant medical conditions that run in the family. Review of Systems: Limited due to patient's medical condition; however, 10-point system reviewed, negative except as per HPI. Physical Examination: Vital Signs: Blood pressure 162/59, pulse 111, respirations 25, temperature 98.5, O2 100% on room ai r. General: Awake, alert, oriented x2, some mild distress, ill-appearing, appears older than stated age , elderly male. HEENT: Normocephalic, atraumatic PERRLA, EOMI. Dry mucous membranes. Oropharynx is clear. Poor de ntition. Conjunctivae are anicteric. Neck: Supple. No JVD. Trachea midline. CV: S1 and S2. Regular rate and rhythm. Peripheral pulses present. Respiratory: Moving air well bilaterally. No wheezing or stridor. Gastrointestinal: Abdomen is soft, nontender, nondistended. Positive bowel sounds. No guarding or rigidity. Extremities: No clubbing, cyanosis, or edema. No calf tenderness. Neuro: Cranial nerves 2-12 intact grossly. No focal neurological deficit. Speech is normal. Skin: No rashes; however, does have some abrasions on his bilateral lower extremities and on his for ehead. Psych: Mood is okay. Affect is flat. Insight and judgment are poor. Laboratory Data: UA: Negative nitrite, 3+ leukocyte esterase, 5-10 rbc, greater than 50 wbc, greate r than 50 bacteria. Serum alcohol level 3. Sodium 138, potassium 3.5, chloride 104, CO2 of 23, BUN 14, creatinine 1.1, glucose 169, lactate 1.3, repeat lactate is 2.6, calcium 9.1, total bilirubin 3.2 , direct bilirubin 1.2, AST 76, ALT 39, alkaline phosphatase 134, ammonia 42. CK levels 519, troponi n less than 0.02. Procalcitonin 0.44. INR 1.41. WBC 7.7, H and H are 11.5 and 33.6, platelets 96, neutrophils 67%. Influenza screen is negative. Head CT, cervical spine, personally reviewed, shows no fracture. Moderate mid and lower cervical degenerative change with small endplate osteophyte. Ca rotid atherosclerosis. No acute intracranial or cervical spine findings. EKG shows sinus tachycardi a, rate of 104, nonspecific ST abnormality. Abdominal ultrasound shows cholelithiasis without eviden ce of cholecystitis or cirrhosis. Normal flow within the portal vein is not clearly seen. X-ray of the pelvis personally reviewed, shows mild bilateral hip arthritic changes. No fracture or dislocati on or AVN. Chest x-ray personally reviewed, shows no acute intrathoracic process identified. Assessment And Plan: A 78-year-old male with: 1.Acute metabolic encephalopathy likely related to urinary tract infection, possible alcohol related intoxication. The patient is only oriented x2. We will place on fall precautions and bedrest. 2.Urinary tract infection, acute cystitis with hematuria. We will start on IV antibiotics and follo w up on urine culture. 3.Acute rhabdomyolysis likely secondary to being down for some amount of time. Kidney function is n ormal. We will flush with IV fluids and monitor CK level. 4.Alcohol abuse. We will place on banana bag, multivitamins, and Ativan p.r.n. for alcohol withdraw al symptoms. Monitor with CIWA scale. 5.Chronic obstructive pulmonary disease, chronic bronchitis. Will use albuterol p.r.n. 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 7.Degenerative disk disease of the spine. 8.Elevated liver enzymes secondary to liver cirrhosis. Abdominal ultrasound does confirm liver cirr hosis. 9.Mixed hyperlipidemia. 10.Essential hypertension. 11.Normocytic normochromic anemia. 12.Gastrointestinal and deep venous thrombosis prophylaxis addressed. Plan: Admit the patient to Med-Surg. Place as observation. LEANDER Voice ID: [id number]
[2018-06-26 06:16] LABS: Absolute Lymphocytes (CBC) 1.1 K/uL (0.7-4.9); Absolute Monocytes 1.3 K/uL (0.1-1.3); Absolute Neutrophil 4.5 K/uL (1.8-8.0); Basophils % 0.4 % (0-1.3); Eosinophils % 0.2 % (0-4.4); Hematocrit 29.4 % (39.6-49.0); Lymphocytes % 15.5 % (15.3-44.8); MCH 30.8 pg (27.0-35.0); MCV 91.8 fL (80-100); MPV 7.6 fL (7.6-11.3); Monocytes % 19.2 % (3.3-12.3)
[2018-06-26 06:29] LABS: Albumin 2.6 g/dL (3.4-5.0); Bilirubin Total 2.4 mg/dL (0.2-1.0); Potassium 3.4 mmol/L (3.5-5.1); Protein, Total 6.9 g/dL (6.4-8.2)
[2018-06-26 06:44] LABS: Platelet Estimate DECR; Urine White Blood Cell Casts OK
[2018-06-26 06:45] LABS: Anisocytosis 2+; Blood Morphology Comment NOTED (NOT SEEN); Polychromasia 1+
[2018-06-26] MEDS ORDERED: CEFTRIAXONE 1 GM/NS 50 ML 1 GM/50 ML BAG IV ONE (06:51)
[2018-06-26] MEDS: INSULIN -REGULAR HUMAN 50 UNIT/0.5 ML ML SQ SCH ×4 (07:30→21:00)
[2018-06-26] MEDS ORDERED: HOME MED 1 EA UNK (Insulin Detemir [Levemir] 25 UNITS) SQ SCH (08:00)
[2018-06-26] MEDS: INSULIN GLARGINE 100 UNITS/ML SQ SCH ×2 (08:00→23:19)
[2018-06-26] MEDS ORDERED: NA CHLORIDE 0.9% 1,000 ML IV ONE (08:26)
[2018-06-26] MEDS: NA CHLORIDE 0.9% 1,000 ML IV SCH ×2 (08:52→18:52)
[2018-06-26] MEDS: THIAMINE HCL 100 MG TABLET PO SCH (08:54)
[2018-06-26] MEDS: FOLIC ACID 1 MG TABLET PO SCH (08:54)
[2018-06-26] MEDS: FUROSEMIDE 40 MG TABLET PO SCH (08:54)
[2018-06-26] MEDS: TAMSULOSIN 0.4 MG SR CAP PO SCH (08:55)
[2018-06-26] MEDS: CARVEDILOL 3.125 MG TAB PO SCH ×2 (08:55→21:31)
[2018-06-26] MEDS: SPIRONOLACTONE 25 MG TABLET PO SCH (08:55)
[2018-06-26] MEDS: PANTOPRAZOLE 40MG TABLET PO SCH (08:56)
[2018-06-26] MEDS: CEFTRIAXONE/SWI 1gm 1 GM/10 ML SYR IVP SCH (09:09)
[2018-06-26] MEDS ORDERED: D50W 25 GM/50 ML SYRINGE IV PRN (10:51)
[2018-06-26] MEDS ORDERED: GLUCAGON 1 MG/VIAL IM PRN (10:51)
[2018-06-26] MEDS ORDERED: INSULIN GLARGINE 100 UNITS/ML SQ ONE ×2 (12:00→13:00)
--- NOTE | 2018-06-26 17:58 | PN ---
Date of Progress Note: 06/26/2018 Subjective: The patient is seen and examined. Chart reviewed and case discussed with RN. The patient appears somewhat better. He states he feels better. No acute events overnight. Medications: List reviewed. Physical Examination: Vital Signs: Temperature 98.3, heart rate 94, blood pressure 138/63, respirations 24, and O2 of 96% on room air. General: Awake, alert, and oriented x3, in some mild distress. Ill-appearing male, appears older than stated age. CV: S1 and S2. Regular rate and rhythm. Peripheral pulses present. Respiratory: Moving air well bilaterally. No wheezing. The patient is tachypneic. Use of the accessory muscles present. Gastrointestinal: Abdomen is soft, nontender, and nondistended. Positive bowel sounds. No guarding or rigidity. Extremities: No clubbing, cyanosis, or edema. Neurologic: Nonfocal. No tremors. Laboratory Data: Sodium 140, potassium 3.4, chloride 110, CO2 of 21, BUN 12, creatinine 0.9, glucose 159. Lactate 2.2. Repeat lactate is 2.4, calcium 8.3. CK level is 419, albumin 2.6, procalcitonin 0.53. WBC 6.9, H and H of 9.9 and 29.4, platelets 66, neutrophils 64%. Urine culture growing out 4+ gram- negative rods. Blood culture, gram-negative rods, 4/4 bottles. Assessment And Plan: A 78-year-old male with, 1. Sepsis secondary to urinary tract infection. The patient's procalcitonin and lactate are elevated. The patient did have a fever 100.5 overnight, is tachycardic and tachypneic. We will continue with IV antibiotics. We will bolus with 1 L normal saline. We will continue to monitor cultures, so far growing gram-negative rods in both urine and blood. 2. Gram-negative lori bacteremia. We will continue with IV antibiotics. Follow up on ID and sensitivity. 3. Urinary tract infection, acute cystitis, now with gross hematuria. Continue antibiotics and follow up on urine culture, ID and sensitivity, currently growing gram-negative rods. 4. Gross hematuria. We will irrigate bladder. The patient denies pulling on Urbina catheter. Patient has history of prostate issues. We will consult Urology. 5. Acute metabolic encephalopathy, likely related to sepsis and urinary tract infection, improved. 6. Alcohol dependence. Continue with multivitamins and Ativan p.r.n., no withdrawal symptoms. 7. Chronic obstructive pulmonary disease and chronic bronchitis. Continue albuterol nebulizers as needed. 8. Liver cirrhosis secondary to chronic alcohol use. 9. Degenerative disk disease of the spine, stable. 10. Elevated liver enzymes secondary to liver cirrhosis. 11. Mixed hyperlipidemia. We will hold statin due to liver cirrhosis. 12. Essential hypertension. Blood pressure is normotensive. 13. Normocytic normochromic anemia. 14. Gastrointestinal and deep venous thrombosis prophylaxis addressed. 15. Change the patient to inpatient. Length Of Stay: Greater than 2 midnights. LEANDER Voice ID: [id number] Report ID: [id number] MTDD
[2018-06-26] MEDS: ATORVASTATIN 10 MG TAB PO SCH (21:30)
[2018-06-27] MEDS: NA CHLORIDE 0.9% 1,000 ML IV SCH ×3 (04:55→20:49)
[2018-06-27 06:26] LABS: Absolute Lymphocytes (CBC) 0.9 K/uL (0.7-4.9); Absolute Monocytes 0.9 K/uL (0.1-1.3); Absolute Neutrophil 3.1 K/uL (1.8-8.0); Basophils % 0.5 % (0-1.3); Hematocrit 26.5 % (39.6-49.0); Lymphocytes % 18.2 % (15.3-44.8); MCH 30.4 pg (27.0-35.0); MCV 89.4 fL (80-100); MPV 7.9 fL (7.6-11.3); Monocytes % 17.9 % (3.3-12.3); RBC Red Blood Cell Count 2.97 M/uL (4.33-5.43)
[2018-06-27 07:13] LABS: ALT/SGPT 31 U/L (12-78); AST/SGOT 72 U/L (15-37); Albumin 2.3 g/dL (3.4-5.0); Alkaline Phosphatase 100 U/L (45-117); Anisocytosis 1+; BUN Blood Urea Nitrogen 9 mg/dL (7-18); Bicarbonate 21 mmol/L (21-32); Bilirubin Total 1.6 mg/dL (0.2-1.0); Blood Morphology Comment NOTED (NOT SEEN); Creatine Phosphokinase 260 U/L (39-308); Glucose Level 95 mg/dL (74-106); Platelet Estimate DECR; Polychromasia 1+; Protein, Total 6.4 g/dL (6.4-8.2); Sodium Level 138 mmol/L (136-145); Urine White Blood Cell Casts OK
[2018-06-27] MEDS: INSULIN -REGULAR HUMAN 50 UNIT/0.5 ML ML SQ SCH ×4 (07:30→19:55)
[2018-06-27] MEDS: PANTOPRAZOLE 40MG TABLET PO SCH (07:41)
[2018-06-27] MEDS: INSULIN GLARGINE 100 UNITS/ML SQ SCH ×2 (07:41→20:48)
[2018-06-27 07:47] LABS: Potassium 2.9 mmol/L (3.5-5.1)
[2018-06-27] MEDS: FOLIC ACID 1 MG TABLET PO SCH (08:58)
[2018-06-27] MEDS: FUROSEMIDE 40 MG TABLET PO SCH (08:58)
[2018-06-27] MEDS: THIAMINE HCL 100 MG TABLET PO SCH (08:59)
[2018-06-27] MEDS: SPIRONOLACTONE 25 MG TABLET PO SCH (08:59)
[2018-06-27] MEDS: CARVEDILOL 3.125 MG TAB PO SCH ×2 (08:59→20:47)
[2018-06-27] MEDS: TAMSULOSIN 0.4 MG SR CAP PO SCH (09:00)
[2018-06-27] MEDS: CEFTRIAXONE/SWI 1gm 1 GM/10 ML SYR IVP SCH (09:00)
[2018-06-27] MEDS: KCL 20 MEQ/100 mL IVPB 20 MEQ/100 ML BAG IV SCH ×3 (09:00→13:25)
[2018-06-27 09:21] LABS: Magnesium 1.8 mg/dL (1.8-2.4)
[2018-06-27] MEDS ORDERED: MAGNESIUM SULFATE 1 gm IVPB 1 GM/100 ML BAG IV ONE (10:00)
[2018-06-27] MEDS ORDERED: INSULIN GLARGINE 100 UNITS/ML SQ ONE (10:52)
[2018-06-27] MEDS ORDERED: ALBUTEROL 2.5 MG/3 ML NEB SOL NEB PRN (16:28)
[2018-06-27] MEDS ORDERED: POTASSIUM CL SA 10 MEQ TAB PO ONE (19:00)
--- NOTE | 2018-06-27 21:57 | PN ---
Date of Progress Note: 06/27/2018 Subjective: The patient seen and examined. Chart reviewed and case discussed with RN. The patient states he is feeling better, had temperature of 100.7. Medications: List reviewed. Physical Examination: Vital Signs: Temperature 100.7, heart rate 78, blood pressure 119/47, respirations 18, O2 100% on ro om air. General: Awake, alert, oriented x3, in mild distress, elderly male. CV: S1, S2. Regular rate and rhythm. Peripheral pulses present. Respiratory: Moving air well bilaterally. No wheezing. Gastrointestinal: Abdomen is soft, nontender, nondistended. Positive bowel sounds. Extremities: No clubbing, cyanosis, edema. Neurologic: Nonfocal. Laboratory Data: Sodium 138, potassium 2.9, chloride 109, CO2 21, BUN 9, creatinine 0.6, glucose 95, calcium 8.1, magnesium 1.8, albumin 2.3. WBC 4.9, H and H 9 and 26.5, platelets 56, neutrophils 62% . Urine culture 4+ gram-negative rods. Blood culture also showing gram-negative rods. Assessment And Plan: A 78-year-old male with; 1.Sepsis secondary urinary tract infection, improving. Still having fevers 100.7. Continue with IV antibiotics. Cultures growing gram-negative rods in urine and blood. We will continue IV fluid hyd ration. 2.Gram-negative lori bacteremia. Continue antibiotics. Follow up in ID and sensitivity. 3.Acute cystitis with gross hematuria, improving, secondary to gram-negative rods, on antibiotics. Hematuria is resolved. 4.Gross hematuria, improved with bladder irrigation. We will remove Urbina catheter. The patient do es have benign prostatic hyperplasia. We will need outpatient urology followup. 5.Acute metabolic encephalopathy, likely related to sepsis and urinary tract infection, resolved. 6.Alcohol dependence. Continue with multivitamins and Ativan p.r.n. Monitor for signs of withdrawa l. 7.Chronic obstructive pulmonary disease, chronic bronchitis. Continue albuterol as needed. 8.Liver cirrhosis secondary to chronic alcohol use. 9.Degenerative disk disease of the spine, stable. 10.Elevated liver enzymes secondary to liver cirrhosis. 11.Mixed hyperlipidemia. Hold statin due to liver cirrhosis. 12.Essential hypertension. Blood pressure is stable. 13.Normocytic normochromic anemia. Monitor H and H and transfuse as needed. 14.Gastrointestinal and deep venous thrombosis prophylaxis addressed. Plan: We will contact family. Followup on ID and sensitivity. The patient will likely benefit from acute rehab placement. Discussed with social Work. PT evaluation. /ELISE Voice ID: [id number] Report ID: [id number]
[2018-06-28] MEDS: NA CHLORIDE 0.9% 1,000 ML IV SCH ×3 (01:22→21:14)
[2018-06-28 06:53] LABS: ALT/SGPT 31 U/L (12-78); AST/SGOT 71 U/L (15-37); Albumin 2.1 g/dL (3.4-5.0); Alkaline Phosphatase 119 U/L (45-117); BUN Blood Urea Nitrogen 6 mg/dL (7-18); Bicarbonate 21 mmol/L (21-32); Bilirubin Total 1.6 mg/dL (0.2-1.0); Creatine Phosphokinase 141 U/L (39-308); Glucose Level 104 mg/dL (74-106); Magnesium 1.8 mg/dL (1.8-2.4); Potassium 3.5 mmol/L (3.5-5.1); Protein, Total 5.7 g/dL (6.4-8.2); Sodium Level 138 mmol/L (136-145)
[2018-06-28 07:03] LABS: Absolute Lymphocytes (CBC) 0.8 K/uL (0.7-4.9); Absolute Monocytes 0.6 K/uL (0.1-1.3); Absolute Neutrophil 1.5 K/uL (1.8-8.0); Basophils % 0.4 % (0-1.3); Eosinophils % 2.4 % (0-4.4); Hematocrit 23.1 % (39.6-49.0); Lymphocytes % 27.4 % (15.3-44.8); MCH 30.7 pg (27.0-35.0); MCV 89.5 fL (80-100); MPV 8.4 fL (7.6-11.3); RBC Red Blood Cell Count 2.58 M/uL (4.33-5.43)
[2018-06-28] MEDS: INSULIN -REGULAR HUMAN 50 UNIT/0.5 ML ML SQ SCH ×4 (07:30→21:00)
[2018-06-28] MEDS ORDERED: POTASSIUM 25 MEQ EFFERV TAB PO ONE ×2 (07:39→20:13)
[2018-06-28] MEDS ORDERED: MAGNESIUM SULFATE 1 gm IVPB 1 GM/100 ML BAG IV ONE (07:39)
[2018-06-28] MEDS: FOLIC ACID 1 MG TABLET PO SCH (08:25)
[2018-06-28] MEDS: INSULIN GLARGINE 100 UNITS/ML SQ SCH ×2 (08:25→21:13)
[2018-06-28] MEDS: TAMSULOSIN 0.4 MG SR CAP PO SCH (08:26)
[2018-06-28] MEDS: FUROSEMIDE 40 MG TABLET PO SCH (08:26)
[2018-06-28] MEDS: PANTOPRAZOLE 40MG TABLET PO SCH (08:26)
[2018-06-28] MEDS: CARVEDILOL 3.125 MG TAB PO SCH ×2 (08:26→21:13)
[2018-06-28] MEDS: CEFTRIAXONE/SWI 1gm 1 GM/10 ML SYR IVP SCH (08:27)
[2018-06-28] MEDS: SPIRONOLACTONE 25 MG TABLET PO SCH (08:37)
[2018-06-28] MEDS: THIAMINE HCL 100 MG TABLET PO SCH (08:38)
[2018-06-28 12:27] LABS: Hematocrit 25.8 % (39.6-49.0)
--- NOTE | 2018-06-28 18:07 | PN ---
Subjective: The patient is seen and examined. Chart reviewed and case discussed with RN. Patient a ppears now not in any acute distress. The patient denies any significant symptoms. No acute events overnight. The patient no longer having any hematuria. The patient does report some pain in his lef t leg, which is chronic. No family at bedside. Medications: List reviewed. Physical Examination: Vital Signs: Temperature 97, heart rate 70, blood pressure 128/55, respirations 22, O2 100% on room air. General: Awake, alert, oriented x3. Elderly male, appears older than stated age, in no acute distre ss. CV: S1, S2. Regular rate and rhythm. Peripheral pulses weak bilaterally. Respiratory: Moving air well bilaterally. No wheezes or stridor. No use of accessory muscles. Gastrointestinal: Abdomen is soft, nontender, nondistended. Positive bowel sounds. No guarding or rigidity. Extremities: No clubbing, cyanosis, or edema. Neuro: No focal. Laboratory Data: Sodium 138, potassium 3.5, chloride 110, CO2 of 21, BUN 6, creatinine 0.6, glucose 104, calcium 7.7, magnesium 1.8, albumin 2.1. WBC 3.1, H and H 7.9 and 23.1, platelets 54, neutrophi ls 49.8. Repeat H and H 8.9 and 25.8. Urine culture growing salmonella species. Blood cultures gregorio wing out gram-negative rods. ID and sensitivity pending. Stool occult pending. Assessment: A 78-year-old male with: 1.Sepsis secondary to Salmonella species urinary tract infection and bacteremia. White count normal ized. The patient has been afebrile for 24 hours now. Sepsis is improving. We will follow up on cu lture results. 2.Gram-negative lori bacteremia, on Rocephin. Follow up with ID and sensitivity. 3.Acute cystitis with gross hematuria. Hematuria is resolved secondary to salmonella species, sensi tive to Rocephin. 4.Gross hematuria, resolved with bladder irrigation. Will need outpatient Urology followup. 5.Anemia normocytic and normochromic. Repeat H and H stable. We will check stool occult blood. 6.Thrombocytopenia. We will monitor, likely related to alcoholic liver disease. 7.Acute metabolic encephalopathy secondary to sepsis and urinary tract infection, resolved. 8.Alcohol dependence. Continue multivitamins and Ativan p.r.n. Monitor for signs of withdrawal. 9.Chronic obstructive pulmonary disease, chronic bronchitis. Continue nebulizer treatments p.r.n. 10.Alcoholic liver cirrhosis. 11.Degenerative disk disease, stable. 12.Elevated liver enzymes secondary to alcoholic liver cirrhosis. 13.Mixed hyperlipidemia. Statin on hold due to liver disease. 14.Essential hypertension, stable. 15.Gastrointestinal and deep venous thrombosis prophylaxis. SCDs and PPI. No chemical anticoagulat ion due to low platelets and anemia. The patient also has coagulopathy. INR is elevated due to live r disease. Plan: Await ID and sensitivity from blood cultures to determine antibiotic courses will be at least 2 weeks of oral antibiotics. Will likely benefit from [facility] facility placement. Social Wo bette has been consulted for discharge planning. We will continue PT/OT. Ambulate. Discharge in the next 24 to 48 hours. LEANDER Voice ID: [id number] Report ID: [id number]
[2018-06-29 05:16] LABS: BUN Blood Urea Nitrogen 7 mg/dL (7-18); Bicarbonate 23 mmol/L (21-32); Glucose Level 110 mg/dL (74-106); Potassium 3.9 mmol/L (3.5-5.1); Sodium Level 141 mmol/L (136-145)
[2018-06-29] MEDS ORDERED: POTASSIUM CL SA 10 MEQ TAB PO ONE ×2 (05:32→07:52)
[2018-06-29] MEDS: INSULIN -REGULAR HUMAN 50 UNIT/0.5 ML ML SQ SCH ×4 (07:30→20:29)
[2018-06-29] MEDS: NA CHLORIDE 0.9% 1,000 ML IV SCH ×3 (08:11→18:00)
[2018-06-29] MEDS: TAMSULOSIN 0.4 MG SR CAP PO SCH (08:12)
[2018-06-29] MEDS: PANTOPRAZOLE 40MG TABLET PO SCH (08:12)
[2018-06-29] MEDS: THIAMINE HCL 100 MG TABLET PO SCH (08:12)
[2018-06-29] MEDS: FOLIC ACID 1 MG TABLET PO SCH (08:12)
[2018-06-29] MEDS: CARVEDILOL 3.125 MG TAB PO SCH ×2 (08:13→20:36)
[2018-06-29] MEDS: SPIRONOLACTONE 25 MG TABLET PO SCH (08:13)
[2018-06-29] MEDS: FUROSEMIDE 40 MG TABLET PO SCH (08:13)
[2018-06-29] MEDS: CEFTRIAXONE/SWI 1gm 1 GM/10 ML SYR IVP SCH (08:13)
[2018-06-29] MEDS: INSULIN GLARGINE 100 UNITS/ML SQ SCH ×2 (08:14→20:34)
--- NOTE | 2018-06-29 14:31 | P.PN ---
Subjective Date of Service: 06/29/18 Subjective: No new changes, No C/O voiced, Improving Patient seen and examined at bedside. No family at bedside. Chart reviewed and case discussed with nursing staff. Review of Systems As noted Physical Examination - Vital Signs Temperature: 97.1 F Blood Pressure: 120/56 Pulse: 76 Respirations: 18 Pulse Ox (%): 100 - Physical Exam General: Alert, In no apparent distress, Oriented x3 HEENT: Atraumatic, PERRLA, EOMI Neck: Supple, JVD not distended Respiratory: Clear to auscultation bilaterally, Normal air movement Cardiovascular: Regular rate/rhythm, Normal S1 S2 Gastrointestinal: Normal bowel sounds, No tenderness Musculoskeletal: No tenderness Integumentary: No rashes Neurological: Normal speech, Normal tone, Normal affect Lymphatics: No axilla or inguinal lymphadenopathy - Studies Microbiology Data (last 24 hrs): 06/25/18 11:30 Blood - Blood Aerobic Blood Culture - Final Salmonella Species 06/25/18 11:30 Blood - Blood Gram Stain - Final 06/25/18 11:30 Blood - Blood Anaerobic Blood Culture - Final Salmonella Species 06/25/18 11:30 Blood - Blood Gram Stain - Final 06/25/18 11:45 Blood - Blood Aerobic Blood Culture - Final Salmonella Species 06/25/18 11:45 Blood - Blood Gram Stain - Final 06/25/18 11:45 Blood - Blood Anaerobic Blood Culture - Final Salmonella Species 06/25/18 11:45 Blood - Blood Gram Stain - Final 06/25/18 12:44 Clean Catch Urine [place] Count - Final >100,000 CFU/ML. 06/25/18 12:44 Clean Catch Urine - Final Salmonella Species Assessment And Plan - Plan Sepsis secondary to Salmonella species urinary tract infection and bacteremia. White count normalized. The patient has been afebrile for 24 hours now. Sepsis is improving. The blood cultures and urine culture positive for Salmonella, sensitive to oral Levaquin. Bacteremia with Salmonella. Treatment as above Acute cystitis with gross hematuria. Hematuria is resolved. secondary to salmonella species, sensitive to Rocephin. Gross hematuria, resolved with bladder irrigation. Will need outpatient Urology followup. Anemia normocytic and normochromic. Repeat H and H stable. Stool occult blood negative. Will continue to monitor Thrombocytopenia. We will monitor, likely related to alcoholic liver disease. Acute metabolic encephalopathy secondary to sepsis and urinary tract infection, resolved. Alcohol dependence. Continue multivitamins and Ativan p.r.n. Monitor for signs of withdrawal. Chronic obstructive pulmonary disease, chronic bronchitis. Continue nebulizer treatments p.r.n. Alcoholic liver cirrhosis. Degenerative disk disease, stable. Elevated liver enzymes secondary to alcoholic liver cirrhosis. Mixed hyperlipidemia. Statin on hold due to liver disease. Essential hypertension, stable. DVT prophylaxis: SCDs; no chemical anticoagulation due to low platelets and anemia. Patient has history coagulopathy as patient's INR is elevated secondary to liver disease GI prophylaxis: Protonix Diet: Regular. Disposition: Patient will require at least 2 weeks of oral Levaquin. He is pending evaluation/placement in a [facility] facility. Social work is involved. Plan to discharge in: 24 Hours Physician Review: Patient Assessed, Agree with Above Assessment and Plan Time Spent Managing PTS Care (In Minutes): 35
[2018-06-29] MEDS: ACETAMINOPHEN 500 MG TAB PO PRN (19:45)
[2018-06-30] MEDS: NA CHLORIDE 0.9% 1,000 ML IV SCH ×4 (02:28→21:00)
[2018-06-30 07:07] LABS: BUN Blood Urea Nitrogen 8 mg/dL (7-18); Bicarbonate 22 mmol/L (21-32); Glucose Level 90 mg/dL (74-106); Potassium 4.3 mmol/L (3.5-5.1); Sodium Level 143 mmol/L (136-145)
[2018-06-30] MEDS: INSULIN -REGULAR HUMAN 50 UNIT/0.5 ML ML SQ SCH ×4 (07:30→21:00)
[2018-06-30] MEDS: FOLIC ACID 1 MG TABLET PO SCH (08:55)
[2018-06-30] MEDS: CEFTRIAXONE/SWI 1gm 1 GM/10 ML SYR IVP SCH (08:55)
[2018-06-30] MEDS: FUROSEMIDE 40 MG TABLET PO SCH (08:55)
[2018-06-30] MEDS: THIAMINE HCL 100 MG TABLET PO SCH (08:56)
[2018-06-30] MEDS: TAMSULOSIN 0.4 MG SR CAP PO SCH (08:56)
[2018-06-30] MEDS: PANTOPRAZOLE 40MG TABLET PO SCH (08:56)
[2018-06-30] MEDS: CARVEDILOL 3.125 MG TAB PO SCH ×2 (08:56→20:59)
[2018-06-30] MEDS: SPIRONOLACTONE 25 MG TABLET PO SCH (09:02)
[2018-06-30] MEDS: INSULIN GLARGINE 100 UNITS/ML SQ SCH ×2 (12:16→20:59)
[2018-06-30 15:56] VITALS: O2SAT 99
--- NOTE | 2018-06-30 18:07 | P.PN ---
Subjective Date of Service: 06/30/18 Subjective: No new changes, No C/O voiced, Improving Patient seen and examined at bedside. Friend at bedside. Chart reviewed and case discussed with nursing staff. Review of Systems As noted Physical Examination - Vital Signs Temperature: 98.1 F Blood Pressure: 121/57 Pulse: 72 Respirations: 18 Pulse Ox (%): 100 - Physical Exam General: Alert, In no apparent distress, Oriented x3 HEENT: Atraumatic, PERRLA, EOMI Neck: Supple, JVD not distended Respiratory: Clear to auscultation bilaterally, Normal air movement Cardiovascular: Regular rate/rhythm, Normal S1 S2 Gastrointestinal: Normal bowel sounds, No tenderness Musculoskeletal: No tenderness Integumentary: No rashes Neurological: Normal speech, Normal tone, Normal affect Lymphatics: No axilla or inguinal lymphadenopathy Assessment And Plan - Plan Sepsis secondary to Salmonella species urinary tract infection and bacteremia. White count normalized. The patient has been afebrile for over 24 hours now. Sepsis is we saw The blood cultures and urine culture positive for Salmonella, sensitive to oral Levaquin. Rocephin discontinued, was converted to oral Levaquin. Bacteremia with Salmonella. Treatment as above Acute cystitis with gross hematuria. Hematuria is resolved. secondary to salmonella species, sensitive to Levaquin. Gross hematuria, resolved with bladder irrigation. Will need outpatient Urology followup. Anemia normocytic and normochromic. Repeat H and H stable. Stool occult blood negative. Will continue to monitor Thrombocytopenia. We will monitor, likely related to alcoholic liver disease. Acute metabolic encephalopathy secondary to sepsis and urinary tract infection, resolved. Alcohol dependence. Continue multivitamins and Ativan p.r.n. Monitor for signs of withdrawal. Chronic obstructive pulmonary disease, chronic bronchitis. Continue nebulizer treatments p.r.n. Alcoholic liver cirrhosis. Degenerative disk disease, stable. Elevated liver enzymes secondary to alcoholic liver cirrhosis. Mixed hyperlipidemia. Statin on hold due to liver disease. Essential hypertension, stable. DVT prophylaxis: SCDs; no chemical anticoagulation due to low platelets and anemia. Patient has history coagulopathy as patient's INR is elevated secondary to liver disease GI prophylaxis: Protonix Diet: Regular. Disposition: Patient will require at least 2 weeks of oral Levaquin. He is pending evaluation/placement in a long-term facility. Social work is involved. Physician Review: Patient Assessed, Agree with Above Assessment and Plan Time Spent Managing PTS Care (In Minutes): 35
[2018-07-01] MEDS: NA CHLORIDE 0.9% 1,000 ML IV SCH (05:52)
[2018-07-01] MEDS: INSULIN -REGULAR HUMAN 50 UNIT/0.5 ML ML SQ SCH ×3 (07:30→16:30)
[2018-07-01] MEDS: FUROSEMIDE 40 MG TABLET PO SCH (08:13)
[2018-07-01] MEDS: TAMSULOSIN 0.4 MG SR CAP PO SCH (08:14)
[2018-07-01] MEDS: FOLIC ACID 1 MG TABLET PO SCH (08:14)
[2018-07-01] MEDS: PANTOPRAZOLE 40MG TABLET PO SCH (08:14)
[2018-07-01] MEDS: SPIRONOLACTONE 25 MG TABLET PO SCH (08:14)
[2018-07-01] MEDS: CARVEDILOL 3.125 MG TAB PO SCH (08:14)
[2018-07-01] MEDS: THIAMINE HCL 100 MG TABLET PO SCH (08:14)
[2018-07-01] MEDS: INSULIN GLARGINE 100 UNITS/ML SQ SCH (08:15)
[2018-07-01] MEDS ORDERED: levoFLOXacin 500 MG TAB PO SCH (09:00)
--- NOTE | 2018-07-01 15:43 | P.PN ---
Subjective Date of Service: 07/01/18 Subjective: No new changes, No C/O voiced, Improving Patient seen and examined at bedside. No family at bedside. Chart reviewed and case discussed with nursing staff. Review of Systems As noted Physical Examination - Vital Signs Temperature: 97.3 F Blood Pressure: 146/51 Pulse: 73 Respirations: 18 Pulse Ox (%): 100 - Physical Exam General: Alert, In no apparent distress, Oriented x3 HEENT: Atraumatic, PERRLA, EOMI Neck: Supple, JVD not distended Respiratory: Clear to auscultation bilaterally, Normal air movement Cardiovascular: Regular rate/rhythm, Normal S1 S2 Gastrointestinal: Normal bowel sounds, No tenderness Musculoskeletal: No tenderness Integumentary: No rashes Neurological: Normal speech, Normal tone, Normal affect Lymphatics: No axilla or inguinal lymphadenopathy Assessment And Plan - Plan Sepsis secondary to Salmonella species urinary tract infection and bacteremia. White count normalized. The patient has been afebrile for over 24 hours now. Sepsis is we saw The blood cultures and urine culture positive for Salmonella, sensitive to oral Levaquin. Rocephin discontinued, was converted to oral Levaquin. Bacteremia with Salmonella. Treatment as above Acute cystitis with gross hematuria. Hematuria is resolved. secondary to salmonella species, sensitive to Levaquin. Gross hematuria, resolved with bladder irrigation. Will need outpatient Urology followup. Anemia normocytic and normochromic. Repeat H and H stable. Stool occult blood negative. Will continue to monitor Thrombocytopenia. We will monitor, likely related to alcoholic liver disease. Acute metabolic encephalopathy secondary to sepsis and urinary tract infection, resolved. Alcohol dependence. Continue multivitamins and Ativan p.r.n. Monitor for signs of withdrawal. Chronic obstructive pulmonary disease, chronic bronchitis. Continue nebulizer treatments p.r.n. Alcoholic liver cirrhosis. Degenerative disk disease, stable. Elevated liver enzymes secondary to alcoholic liver cirrhosis. Mixed hyperlipidemia. Statin on hold due to liver disease. Essential hypertension, stable. DVT prophylaxis: SCDs; no chemical anticoagulation due to low platelets and anemia. Patient has history coagulopathy as patient's INR is elevated secondary to liver disease GI prophylaxis: Protonix Diet: Regular. Disposition: Patient will require at least 2 weeks of oral Levaquin. He is pending evaluation/placement in a [facility] facility. Social work is involved. Physician Review: Patient Assessed, Agree with Above Assessment and Plan
--- NOTE | 2018-07-01 18:28 | P.DS ---
Admission Date: 06/26/18 Discharge Date: 07/01/18 Disposition: TRANSFER TO HALF-WAY Discharge Condition: GOOD Brief History of Present Illness: : The patient is a 78-year-old male with past medical history of diabetes, anemia, hypertension, hyperlipidemia, COPD, history of NE, and apparent cancer at the [place], who lives with a roommate behind son's apartment, was found down, was confused, thought to have a possible bladder infection. Comes in to the ER for further evaluation. The patient's symptoms are constant, moderate, progressively worsening. He does drink alcohol regularly. Upon arrival, his workup showed elevated lactate level. His CK level was high at 519. Troponin was negative. Procalcitonin was negative. White count was normal. Alcohol level was 3. UA was positive. The patient was then referred for admission. When seen in the ER, he was awake, alert, and oriented to self and place only. Hospital Course: Sepsis secondary to Salmonella species urinary tract infection and bacteremia. White count normalized. The patient has been afebrile for over 24 hours prior to discharge , sepsis resolved. The blood cultures and urine culture positive for Salmonella, sensitive to oral Levaquin. Rocephin discontinued, was converted to oral Levaquin. He will be discharged on 2 weeks of oral Levaquin Bacteremia with Salmonella. Treatment as above Acute cystitis with gross hematuria. Hematuria is resolved. secondary to salmonella species, sensitive to Levaquin. Gross hematuria, resolved with bladder irrigation. Will need outpatient Urology followup. Anemia normocytic and normochromic. Repeat H and H stable. Stool occult blood negative. Will continue to monitor Thrombocytopenia. We will monitor, likely related to alcoholic liver disease. Acute metabolic encephalopathy secondary to sepsis and urinary tract infection, resolved. Alcohol dependence. Continue multivitamins and Ativan p.r.n. Monitor for signs of withdrawal. Chronic obstructive pulmonary disease, chronic bronchitis. Continue nebulizer treatments p.r.n. Alcoholic liver cirrhosis. Degenerative disk disease, stable. Elevated liver enzymes secondary to alcoholic liver cirrhosis. Mixed hyperlipidemia. Statin on hold due to liver disease. Essential hypertension, stable. Patient will require at least 2 weeks of oral Levaquin. Discharged to long- term care facility Vital Signs/Physical Exam: Temp Pulse Resp BP Pulse Ox 97.3 F 73 18 146/51 H 100 07/01/18 15:43 07/01/18 15:43 07/01/18 15:43 07/01/18 15:43 07/01/18 15:43 General: Alert, In no apparent distress, Oriented x3 HEENT: Atraumatic, PERRLA, EOMI Neck: Supple, JVD not distended Respiratory: Clear to auscultation bilaterally, Normal air movement Cardiovascular: Regular rate/rhythm, Normal S1 S2 Gastrointestinal: Normal bowel sounds, No tenderness Musculoskeletal: No tenderness Integumentary: No rashes Neurological: Normal speech, Normal tone, Normal affect Lymphatics: No axilla or inguinal lymphadenopathy Laboratory Data at Discharge: WBC 3.1 K/uL (4.3-10.9) L D 06/28/18 05:58 Hgb 8.9 g/dL (13.6-17.9) L 06/28/18 12:05 Hct 25.8 % (39.6-49.0) L 06/28/18 12:05 Plt Count 54 K/uL (152-406) L 06/28/18 05:58 PT 16.7 SECONDS (9.5-12.5) H 06/25/18 11:30 INR 1.41 06/25/18 11:30 APTT 34.0 SECONDS (24.3-36.9) 06/25/18 11:30 Sodium 143 mmol/L (136-145) 06/30/18 05:50 Potassium 4.3 mmol/L (3.5-5.1) 06/30/18 05:50 BUN 8 mg/dL (7-18) 06/30/18 05:50 Creatinine 0.50 mg/dL (0.55-1.3) L 06/30/18 05:50 Glucose 90 mg/dL (74-106) 06/30/18 05:50 Magnesium 2.0 mg/dL (1.8-2.4) 06/29/18 03:56 Total Bilirubin 1.6 mg/dL (0.2-1.0) H 06/28/18 05:58 AST 71 U/L (15-37) H 06/28/18 05:58 ALT 31 U/L (12-78) 06/28/18 05:58 Alkaline Phosphatase 119 U/L (45-117) H 06/28/18 05:58 Lipase 192 U/L (73-393) 06/25/18 11:30 Home Medications: RX: Carvedilol 3.125 mg PO BID 04/03/18 RX: Furosemide 40 mg PO DAILY 04/03/18 RX: Insulin Detemir [Levemir] 15 units SQ BEDTIME 04/03/18 RX: Insulin Detemir [Levemir] 25 units SQ DAILY WITH BREAKFAST 04/03/18 RX: Pantoprazole Sodium 40 mg PO DAILY 04/03/18 RX: Simvastatin 20 mg PO BEDTIME 04/03/18 RX: Spironolactone 25 mg PO DAILY 04/03/18 RX: Tamsulosin HCl 0.4 mg PO DAILY 04/03/18 RX: levoFLOXacin [Levaquin*] 500 mg PO DAILY #14 tab 07/01/18 New Medications: RX: levoFLOXacin [Levaquin*] 500 mg PO DAILY #14 tab Patient Discharge Instructions: Please follow up with the primary care physician in 1 week. Diet: Regular Activity: Ad barrera Physician Review: Patient Assessed, Agree with Above Assessment and Plan Time spent managing pt's care (in minutes): 55
[2018-07-01 18:45] VITALS: BP 127/46; TEMP 99.2
== END 2018-07-01 17:38 | DRG 871 ==
LOC: ER 11:13 → EDBD 11:13 → ERHOLD 13:19 → 4TH 15:01 → OBSVTOIN 06-26 10:32
PROVIDERS: ADMIT Family Medicine; ATTEND Family Medicine
DX: A02.1 Salmonella sepsis (principal); G93.41 Metabolic encephalopathy; N30.01 Acute cystitis with hematuria; M62.82 Rhabdomyolysis; D64.9 Anemia, unspecified; D69.6 Thrombocytopenia, unspecified; J44.9 Chronic obstructive pulmonary disease, unspecified; F10.20 Alcohol dependence, uncomplicated; K70.30 Alcoholic cirrhosis of liver without ascites; E78.2 Mixed hyperlipidemia; I10 Essential (primary) hypertension; I25.2 Old myocardial infarction; N40.0 Benign prostatic hyperplasia without lower urinary tract symptoms
CPT/HCPCS: 36415; 51702; 70450; 71045; 72125; 72170; 76705; 80048; 80053; 80076; 80320; 81003; 81015; 82140; 82274; 82550; 82553; 82962; 83605; 83690; 83735; 84132; 84145; 84484; 85014; 85018; 85025; 85610; 85730; 87040; 87077; 87086; 87088; 87186; 87205; 87804; 93005; 94760; 96361; 96365; 97110; 97116; 97163; 97166; 97530; 99285; G0378; J0696; J3475; J7030

== ENCOUNTER 2018-07-25 15:26 | Emergency (ER) | payer OTHER ==
[2018-07-25 16:03] LABS: Absolute Lymphocytes (CBC) 2.4 K/uL (0.7-4.9); Absolute Monocytes 0.9 K/uL (0.1-1.3); Absolute Neutrophil 3.2 K/uL (1.8-8.0); Basophils % 0.2 % (0-1.3); Eosinophils % 3.3 % (0-4.4); Hematocrit 21.2 % (39.6-49.0); Lymphocytes % 35.6 % (15.3-44.8); Monocytes % 12.7 % (3.3-12.3); RBC Red Blood Cell Count 2.38 M/uL (4.33-5.43)
--- NOTE | 2018-07-25 16:07 | RAD REPORT ---
EXAM DESCRIPTION: CT - Head Brain Wo Cont - 07/25/2018 3:52 pm CLINICAL HISTORY: CONFUSED Drowsiness COMPARISON: Head Brain Wo Cont dated 04/05/2018; Ct Stroke Brain Wo Cont dated 11/10/2017 TECHNIQUE: All CT scans are performed using dose optimization technique as appropriate and may inclu de automated exposure control or mA/KV adjustment according to patient size. FINDINGS: No intracranial hemorrhage, hydrocephalus or extra-axial fluid collection.Mild generalized brain atrophy.No areas of brain edema or evidence of midline shift. Chronic opacification right maxillary antrum. The calvarium is intact. IMPRESSION: No acute intracranial abnormality.
[2018-07-25 16:08] LABS: Protime INR 1.34
--- NOTE | 2018-07-25 16:08 | RAD REPORT ---
EXAM DESCRIPTION: RAD - Chest Single View - 07/25/2018 3:43 pm CLINICAL HISTORY: AMS Chest pain. COMPARISON: Chest Single View dated 06/25/2018; Chest Single View dated 02/23/2018; Chest Single View dated 02/22/2018; Chest Single View dated 11/10/2017 FINDINGS: Portable technique limits examination quality. The lungs are grossly clear. The heart is normal in size. No displaced fractures. IMPRESSION: No acute intrathoracic process suspected.
[2018-07-25] MEDS ORDERED: NA CHLORIDE 0.9% 1,000 ML ONE (16:09)
[2018-07-25 16:22] LABS: ALT/SGPT 22 U/L (12-78); AST/SGOT 46 U/L (15-37); Albumin 2.8 g/dL (3.4-5.0); Alkaline Phosphatase 119 U/L (45-117); BUN Blood Urea Nitrogen 18 mg/dL (7-18); Bicarbonate 22 mmol/L (21-32); Bilirubin Direct 0.6 mg/dL (0-0.2); Bilirubin Total 1.8 mg/dL (0.2-1.0); Creatine Phosphokinase 36 U/L (39-308); Glucose Level 135 mg/dL (74-106); Lipase 253 U/L (73-393); Protein, Total 7.3 g/dL (6.4-8.2); Sodium Level 144 mmol/L (136-145); Troponin (Emerg Dept Use Only) < 0.02 ng/mL (0.0-0.045)
[2018-07-25 16:58] LABS: Urine Blood TRACE (NEG); Urine Glucose NEGATIVE (NEG); Urine Protein NEGATIVE (NEG); Urine Specific Gravity 1.015 (1.005-1.030)
[2018-07-25] MEDS ORDERED: PANTOPRAZOLE 40 MG INJ ONE (17:08)
[2018-07-25] MEDS ORDERED: CEFTRIAXONE/SWI 1gm 1 GM/10 ML SYR ONE (17:28)
[2018-07-25] MEDS ORDERED: NA CHLORIDE 0.9% 250 ML ONE (17:47)
[2018-07-25 17:57] LABS: Urine RBC <5 /HPF (NONE SEEN)
[2018-07-25 17:58] LABS: Urine Bacteria <20 /HPF (NONE SEEN); Urine Culture Reflex Order REFLEXED
[2018-07-25] MEDS ORDERED: NA CHLORIDE 0.9% 500 ML ONE (18:00)
[2018-07-25] MEDS ORDERED: PANTOPRAZOLE INJ 80 MG in NA CHLORIDE 0.9% 250 ML IV SCH (18:00)
--- NOTE | 2018-07-25 19:43 | ER ---
Nurse's Notes [facility] Name: Jean Lucio III Age: 78 yrs Sex: Male : 1940 Arrival Date: 07/25/2018 Time: 15:29 Bed 3 Private MD: Diagnosis: Altered mental status, unspecified;Gastrointestinal hemorrhage, unspecified;Anemia;Hepatic Encepalopathy Presentation: 07/25 15:22 Presenting complaint: EMS states: [facility] stated pt started becoming altered about 3 sv hours ago. Pt was not alert to anything per EMS, SR with elevated T waves. BS-132 22G L FA, BP 128/52 HR-84. Transition of care: patient was not received from another setting of care. Onset of symptoms was July 25, 2018. Care prior to arrival: IV initiated. 22 GA, in the left forearm, Glucose check: 132. 15:22 Method Of Arrival: EMS: [facility] sv 15:22 Acuity: RITA 2 sg 21:47 Risk Assessment: Do you want to hurt yourself or someone else? Patient reports no ak1 desire to harm self or others. Initial Sepsis Screen: Does the patient meet any 2 criteria? No. Patient's initial sepsis screen is negative. Does the patient have a suspected source of infection? No. Patient's initial sepsis screen is negative. Historical: - Allergies: 15:41 No Known Allergies; sv - Home Meds: 23:12 carvedilol 3.125 mg Oral tab 1 tab 2 times per day [Active]; cefdinir 300 mg Oral cap 1 ak1 cap every 12 hours [Active]; Colace 100 mg Oral cap 1 cap 2 times per day [Active]; dulera [Active]; Iron CR Oral [Active]; Lasix 40 mg Oral tab 1 tab once daily [Active]; levemir [Active]; lisinopril 2.5 mg Oral tab 1 tab once daily [Active]; neomycin 500 mg Oral tab 3 times per day [Active]; NOVOLOG [Active]; pantoprazole 40 mg Oral TbEC 1 tab 2 times per day [Active]; potassium chloride 10 mEq Oral cpER 1 cap once daily [Active]; simvastatin 20 mg Oral tab 1 tab once daily [Active]; spironolactone 25 mg Oral tab 1 tab once daily [Active]; tamsulosin 0.4 mg Oral cp24 1 cap once daily [Active]; - PMHx: 15:41 Anemia; COPD; diagnosed with cancer at [place], did not seek treatment; Hyperlipidemia; sv Hypertension; Myocardial infarction; ETOH abuse; Diabetes - NIDDM; UTI; Rhabdomyolysis; Metabolic encephalopathy; Angiodysplasia of duodenum; Cholithiasis; Gastric varices; CAD s/p ND; Pneumonia; GERD; - Immunization history:: Adult Immunizations unknown. - Social history:: Smoking status: Patient/guardian denies using tobacco. - Ebola Screening: : No symptoms or risks identified at this time. - Code Status:: Full code. Screenin:30 Abuse screen: Denies threats or abuse. Denies injuries from another. Nutritional sg screening: No deficits noted. Tuberculosis screening: No symptoms or risk factors identified. Fall Risk None identified. Pneumonia Screening: Productive Cough (5pts), Shortness of Breath (3pts), Fever (3pts), Chronic Respiratory/Lung Disease (3pts), Hx. of Pneumonia (2pts). Total Score: 3 Pts. or > (High Risk), Pneumonia Protocol Initiated. Assessment: 15:40 General: Appears in no apparent distress. unkempt, well developed, well nourished, sg Behavior is calm, cooperative, appropriate for age. Pain: Unable to use pain scale. Patient is disoriented. Neuro: Level of Consciousness is awake, obeys commands, confused, Oriented to person, Brush Operator are equal bilaterally Moves all extremities. Speech is normal, Facial symmetry appears normal, Pupils are pinpoint. Cardiovascular: Heart tones S1 S2 present Respiratory: Airway is patent Respiratory effort is even, unlabored, Respiratory pattern is regular, symmetrical, Breath sounds with crackles in left posterior lower lobe and right posterior lower lobe. GI: Abdomen is flat, non-distended, Abd is soft X 4 quads Abdomen is tender to palpation in right lower quadrant and left lower quadrant. : No signs and/or symptoms were reported regarding the genitourinary system. EENT: No signs and/or symptoms were reported regarding the EENT system. Derm: Skin is fragile, is thin, Skin is dry, Skin is pale, Skin temperature is cool. Musculoskeletal: No signs and/or symptoms reported regarding the musculoskeletal system. 16:10 Reassessment: Patient appears in no apparent distress at this time. pt restless, sg tossing and turning in bed, SRX2, bed in low and locked position, IV sites remain intact, pt remains on monitoring. 17:30 Reassessment: v/o received for Octreotide IV infusion, order faxed to pharmacy at this sg time, awaiting medication from pharmacy, will continue to monitor. 17:42 Reassessment: Patient appears in no apparent distress at this time. orders received to sg administer 2 units PRBC prior to transfer to receiving facility, awaiting units from lab at this time. 17:45 Reassessment: Reassessment: Patient appears in no apparent distress at this time. sg Patient and/or family updated on plan of care and expected duration. Pain level reassessed. Patient states symptoms have not improved. 17:50 Reassessment: attempt to give pt PO water prior to administration of PO lactulose, pt sg did not tolerate water at this time, pt elbasyNatalie notified. 18:00 Reassessment: Patient appears in no apparent distress at this time. Patient and/or sg family updated on plan of care and expected duration. Pain level reassessed. pharmacy contacted for Octreotide medication, spoke with Ren, medication being prepared to be delivered at this time. 18:45 Reassessment: Patient appears in no apparent distress at this time. Patient and/or sg family updated on plan of care and expected duration. Pain level reassessed. Patient states symptoms have not improved. Reassessment: 1st unit PRBC infusion began, pt tolerating well. 19:18 Reassessment: Patient appears in no apparent distress at this time. No changes from ak1 previously documented assessment. pt resting with eyes closed, resp even and unlabored. first unit PRBC infusing. will continue to monitor. 20:25 Reassessment: Patient appears in no apparent distress at this time. No changes from ak1 previously documented assessment. pt remains with AMS. 1st unit PRBC complete. 2nd unit requested. 20:49 Reassessment: Patient appears in no apparent distress at this time. No changes from ak1 previously documented assessment. pt 2nd unit started. pt tolerating well. will continue to monitor. see transfusion record for vitals. 21:46 Reassessment: Patient appears in no apparent distress at this time. No changes from ak1 previously documented assessment. Patient and/or family updated on plan of care and expected duration. Pain level reassessed. repeat hemoglobin sent to lab. will continue to monitor. 23:35 Reassessment: Patient appears in no apparent distress at this time. No changes from ak1 previously documented assessment. Patient and/or family updated on plan of care and expected duration. Pain level reassessed. pt remains oriented to self only when awake. pt easy to arouse but remains drowsy. pt resp even and unlabored. [facility] physician acceptance, waiting on bed assignment and administration approval. will continue to monitor. . 23:41 Reassessment: Leroy with [facility] contacted and informed of pt dx and ak1 transfer to [facility]. Leroy stated he would contact pt's emergency contact on file. . 07/26 00:36 Reassessment: report given to Ramon with [facility] [address] [facility] bed 11C. ak1 00:43 Reassessment: Leroy with [facility] updated with report number of ak1 , bed 11C [facility] 1148. Vital Signs: 07/25 15:30 BP 170 / 55; Pulse 88; Resp 20; Pulse Ox 100% ; sv 15:30 Pulse Ox 97.9% ; sg 15:30 Weight 83.91 kg; Height 5 ft. 10 in. (177.80 cm); sg 17:40 BP 114 / 47; Pulse 87; Resp 17; Pulse Ox 100% on R/A; sg 18:40 BP 122 / 45; Pulse 86; Resp 17 S; Pulse Ox 98% on R/A; sg 18:40 Temp 97.6(TE); sg 19:17 BP 118 / 45; Pulse 87; Resp 17; Pulse Ox 100% on R/A; ak1 21:47 BP 144 / 53; Pulse 76; Resp 16; Temp 98.; Pulse Ox 100% on R/A; Pain 0/10; ak1 23:09 BP 156 / 53; Pulse 71; Resp 16; Temp 97.8; Pulse Ox 100% on R/A; Pain 0/10; ak1 07/26 00:04 BP 133 / 45; Pulse 68; Resp 14; Temp 98.1; Pulse Ox 100% on R/A; Pain 0/10; ak1 07/25 15:30 Body Mass Index 26.54 (83.91 kg, 177.80 cm) Vitals: 12 15:40 Cardiac Rhythm Assessment Sinus rhythm. sg 15:45 Cardiac Rhythm Assessment Sinus rhythm. sg [place] Coma Score: 15:57 Eye Response: spontaneous(4). Verbal Response: confused(4). Motor Response: obeys jr8 commands(6). Total: 14. ED Course: 15:29 Patient arrived in ED. sv 15:29 Hari Godfrey PA is PHCP. jr8 15:29 Jose Alcantara MD is Attending Physician. jr8 15:30 Initial lab(s) drawn, by me, sent to lab. First set of blood cultures drawn by me. sv Inserted saline lock: 18 gauge in right antecubital area, using aseptic technique. ,using aseptic technique. done by Paul Tobias RN Blood collected. 15:30 Maintain EMS IV. Dressing intact. Site clean \T\ dry. Gauge \T\ site: 22 G LFA. sg 15:[address] via stretcher. mw3 15:37 Triage completed. sv 15:40 Patient has correct armband on for positive identification. Placed in gown. Bed in low sv position. Side rails up X2. floor helper on. Pulse ox on. NIBP on. Warm blanket given. Head of bed elevated. 15:41 Chest Single View XRAY In Process Unspecified. EDMS 15:41 Arm band placed on. sv 15:47 CT completed. Patient tolerated procedure well. Patient moved back from CT. bq 15:52 CT Head Brain wo Cont In Process Unspecified. EDMS 16:11 Paul Mosqueda, RN is Primary Nurse. sg 18:20 Missed attempt(s): 22 gauge in left forearm. Bleeding controlled, band aid applied, sg catheter tip intact. 18:40 Consent for blood and/or blood product transfusion explained by physician, pt unable to sg sign blood consent d/t AMS, pt is a resident of [facility], Emergent blood transfusion needed.. 18:55 Inserted saline lock: 20 gauge in right forearm, using aseptic technique. Flushed right sv forearm with 5 ml normal saline. 18:56 Inserted saline lock: 20 gauge in right wrist, using aseptic technique. Flushed right sv with 5 ml normal saline wrist. 21:47 No provider procedures requiring assistance completed. ak1 07/26 00:02 Patient transferred, IV remains in place. ak1 Administered Medications: 07/25 16:16 Drug: NS 0.9% 1000 ml Route: IV; Rate: 1000 ml; Site: left forearm; sg 18:25 Follow up: Response: No adverse reaction; IV Status: Completed infusion; IV Intake: sv 1000ml 17:20 Drug: ProTONIX 40 mg Route: IVP; Site: right antecubital; sg 19:20 Follow up: Response: No adverse reaction ak1 17:27 Drug: ProTONIX 8 mg/hr Route: IV; Rate: 25 ml/hr; Site: right antecubital; sg 21:59 Follow up: IV Status: Infusion continued upon transfer ak1 17:27 Drug: Rocephin 1 grams Route: IV; Rate: calculated rate; Site: right antecubital; sg 21:58 Follow up: IV Status: Completed infusion ak1 19:31 Not Given (pt did not tolerate water at this time, Natalie CASTAÑEDA notified): Lactulose 30 sg grams 45 ml PO once 19:48 Drug: Octreotide Infusion (50 mcg/hr) - (Octreotide 500 mcg, NS 0.9% 500 ml) Route: IV; ak1 Rate: 50 ml/hr; Site: right wrist; 21:58 Follow up: IV Status: Infusion continued upon transfer ak1 Point of Care Testing: Blood Glucose: 15:42 Blood Glucose: 153 mg/dL; sv Ranges: Intake: 18:25 IV: 1000ml; Total: 1000ml. sv Outcome: 19:42 ER care complete, transfer ordered by MD. floyd 07/26 00:05 Condition: stable ak1 Instructed on [facility] nurse Leroy contacted and informed of pt need for transfer. 01:28 Transferred by ground EMS to [facility], Transfer form ak1 completed. X-rays sent w/ patient. Note: report given to [facility] 01:34 Patient left the ED. ak1 Addendum: 07/29/2018 08:52 Addendum: Culture Results: Positive urine culture. Phone call Attempt #1 Faxed to [facility] hal caba Owen [phone]. Signatures: Dispatcher [employer] June Walker RN RN sv Gay, Steven, RN RN sg Quilty, Betty bq Roszak, Josh, PA PA Miracle Herrera RN RN ak1 Lizeth Gunn RN RN Camelia Ngo mw3 Corrections: (The following items were deleted from the chart) 07/25 19:20 17:45 Reassessment: [facility] 15:22 Acuity: RITA 3 sv 17:00 Response: No adverse reaction; IV Status: Completed infusion; IV Intake: 1000ml svsv
--- NOTE | 2018-07-25 19:43 | EDPHYS ---
Physician Documentation [facility] Name: Jean Lucio III Age: 78 yrs Sex: Male : 1940 Arrival Date: 07/25/2018 Time: 15:29 Bed 3 Private MD: ED Physician Jose Alcantara HPI: 07/25 15:57 This 78 yrs old Male presents to ER via EMS with complaints of Altered Mental jr8 Status. 15:57 The patient presents with confusion, decreased mental status, decreased responsiveness. jr8 Onset: The symptoms/episode began/occurred acutely, today. Possible causes: unknown. Associated signs and symptoms: The patient has no apparent associated signs or symptoms. Current symptoms: In the emergency department the patient's symptoms are unchanged from the initial presentation. Patient's baseline: Neuro: alert and fully oriented, Motor: no deficits, Ambulation: walks with assist only, Speech: normal. It is unknown whether or not the patient has had similar symptoms in the past. The patient has not recently seen a physician. ME called EMS for altered mental status that started this AM. Historical: - Allergies: 15:41 No Known Allergies; sv - Home Meds: 23:12 carvedilol 3.125 mg Oral tab 1 tab 2 times per day [Active]; cefdinir 300 mg Oral cap 1 ak1 cap every 12 hours [Active]; Colace 100 mg Oral cap 1 cap 2 times per day [Active]; dulera [Active]; Iron CR Oral [Active]; Lasix 40 mg Oral tab 1 tab once daily [Active]; levemir [Active]; lisinopril 2.5 mg Oral tab 1 tab once daily [Active]; neomycin 500 mg Oral tab 3 times per day [Active]; NOVOLOG [Active]; pantoprazole 40 mg Oral TbEC 1 tab 2 times per day [Active]; potassium chloride 10 mEq Oral cpER 1 cap once daily [Active]; simvastatin 20 mg Oral tab 1 tab once daily [Active]; spironolactone 25 mg Oral tab 1 tab once daily [Active]; tamsulosin 0.4 mg Oral cp24 1 cap once daily [Active]; - PMHx: 15:41 Anemia; COPD; diagnosed with cancer at [place], did not seek treatment; Hyperlipidemia; sv Hypertension; Myocardial infarction; ETOH abuse; Diabetes - NIDDM; UTI; Rhabdomyolysis; Metabolic encephalopathy; Angiodysplasia of duodenum; Cholithiasis; Gastric varices; CAD s/p [place]; Pneumonia; GERD; - Immunization history:: Adult Immunizations unknown. - Social history:: Smoking status: Patient/guardian denies using tobacco. - Ebola Screening: : No symptoms or risks identified at this time. - Code Status:: Full code. ROS: 15:57 Unable to obtain ROS due to altered mental status. jr8 Exam: 15:57 Head/Face: Normocephalic, atraumatic. Eyes: Pupils equal round and reactive to light, jr8 extra-ocular motions intact. Lids and lashes normal. Conjunctiva and sclera are non-icteric and not injected. Cornea within normal limits. Periorbital areas with no swelling, redness, or edema. ENT: Nares patent. No nasal discharge, no septal abnormalities noted. Tympanic membranes are normal and external auditory canals are clear. Oropharynx with no redness, swelling, or masses, exudates, or evidence of obstruction, uvula midline. Mucous membranes dry. Neck: Trachea midline, no thyromegaly or masses palpated, and no cervical lymphadenopathy. Supple, full range of motion without nuchal rigidity Cardiovascular: Regular rate and rhythm with a normal S1 and S2. Systolic murmur present Respiratory: Lungs have equal breath sounds bilaterally, clear to auscultation and percussion. No rales, rhonchi or wheezes noted. No increased work of breathing, no retractions or nasal flaring. Abdomen/GI: Soft, non-tender, with normal bowel sounds. No distension or tympany. No guarding or rebound. Skin: Warm, dry with normal turgor. Normal color with no rashes, no lesions, and no evidence of cellulitis. MS/ Extremity: Pulses equal, no cyanosis. Neurovascular intact. Full, normal range of motion. 15:57 Neuro: Orientation: to person, Mentation: slow to respond, confused, Memory: immediate memory is intact, remote memory is impaired, recent memory is impaired, Cranial nerves: extraocular movements are intact, Speech is clear and appropriate. Tongue strength is normal, Motor: moves all fours, Sensation: no obvious gross deficits, Gait: not tested. seizure activity, is not displayed by the patient, Abnormal movements: there are no abnormal movements. Vital Signs: 15:30 BP 170 / 55; Pulse 88; Resp 20; Pulse Ox 100% ; sv 15:30 Pulse Ox 97.9% ; sg 15:30 Weight 83.91 kg; Height 5 ft. 10 in. (177.80 cm); sg 17:40 BP 114 / 47; Pulse 87; Resp 17; Pulse Ox 100% on R/A; sg 18:40 BP 122 / 45; Pulse 86; Resp 17 S; Pulse Ox 98% on R/A; sg 18:40 Temp 97.6(TE); sg 19:17 BP 118 / 45; Pulse 87; Resp 17; Pulse Ox 100% on R/A; ak1 21:47 BP 144 / 53; Pulse 76; Resp 16; Temp 98.; Pulse Ox 100% on R/A; Pain 0/10; ak1 23:09 BP 156 / 53; Pulse 71; Resp 16; Temp 97.8; Pulse Ox 100% on R/A; Pain 0/10; ak1 07/26 00:04 BP 133 / 45; Pulse 68; Resp 14; Temp 98.1; Pulse Ox 100% on R/A; Pain 0/10; ak1 07/25 15:30 Body Mass Index 26.54 (83.91 kg, 177.80 cm) sg [place] Coma Score: 07/25 15:57 Eye Response: spontaneous(4). Verbal Response: confused(4). Motor Response: obeys jr8 commands(6). Total: 14. MDM: 15:29 Patient medically screened. jr8 17:19 Data reviewed: vital signs, nurses notes, lab test result(s), EKG, radiologic studies, jr8 CT scan, plain films. Data interpreted: Pulse oximetry: on room air is 100 %. Interpretation: normal. Counseling: I had a detailed discussion with the patient and/or guardian regarding: the historical points, exam findings, and any diagnostic results supporting the discharge/admit diagnosis, lab results, radiology results, the need to transfer to another facility, [facility] does not immediately have the required specialist. ED course: GI at [facility] accepted patient for GI bleed. 17:41 ED course: Dr Grijalva at [facility] wants us to give the blood first before transfer to [facility] insure he can go to floor. At saturation for ICU/PCU currently . 22:15 ED course: [facility] can no longer accept patient due to capacity. Both GI and Medicine 8 had accepted but are saying that the hospital no longer can due to capacity. 07/25 15:30 Order name: Basic Metabolic Panel [facility] 07/25 15:30 Order name: Blood Culture Adult (2) [facility] 07/25 15:30 Order name: CBC with Diff; Complete Time: 16:32 [facility] 07/25 15:30 Order name: CPK; Complete Time: 16:32 [facility] 07/25 15:30 Order name: Lactate; Complete Time: 16:32 [facility] 07/25 15:30 Order name: LFT's; Complete Time: 16:32 [facility] 07/25 15:30 Order name: Lipase; Complete Time: 16:32 [facility] 07/25 15:30 Order name: Procalcitonin; Complete Time: 16:34 [facility] 07/25 15:30 Order name: Protime (+inr); Complete Time: 16:32 [facility] 07/25 15:30 Order name: Ptt, Activated; Complete Time: 16:32 [facility] 07/25 15:30 Order name: Troponin (emerg Dept Use Only); Complete Time: 16:32 [facility] 07/25 15:30 Order name: Urine Microscopic Only; Complete Time: 18:00 [facility] 07/25 15:30 Order name: AMMONIA; Complete Time: 17:20 [facility] 07/25 15:31 Order name: Basic Metabolic Panel; Complete Time: 16:32 [facility] 07/25 15:30 Order name: Chest Single View XRAY; Complete Time: 16:32 [facility] 07/25 15:30 Order name: CT Head Brain wo Cont; Complete Time: 16:32 [facility] 07/25 15:31 Order name: Blood Culture [facility] 07/25 15:56 Order name: Glucose, Ancillary Testing; Complete Time: 15:57 EDNM 07/25 16:46 Order name: Urine Dipstick--Ancillary (enter results); Complete Time: 17:04 bd 07/25 16:50 Order name: TS [facility] 07/25 16:54 Order name: Occult Blood--Ancillary bd 07/25 16:56 Order name: Bb Add On bd 07/25 17:10 Order name: Packed RBC Leukored -1 EDNM 07/25 17:59 Order name: Urine Culture [facility] 07/25 21:32 Order name: Hemoglobin; Complete Time: 22:12 07/25 21:32 Order name: Hematocrit; Complete Time: 22:12 07/25 15:30 Order name: Cath; Complete Time: 16:56 [facility] 07/25 15:30 Order name: Accucheck; Complete Time: 16:16 [facility] 07/25 15:30 Order name: Cardiac monitoring; Complete Time: 16:16 [facility] 07/25 15:30 Order name: EKG - Nurse/Tech; Complete Time: 16:56 [facility] 07/25 15:30 Order name: IV Saline Lock - Large Bore; Complete Time: 16:17 [facility] 07/25 15:30 Order name: Labs collected and sent; Complete Time: 16:17 [facility] 07/25 15:30 Order name: O2 Per Protocol; Complete Time: 16:17 [facility] 07/25 15:30 Order name: O2 Sat Monitoring; Complete Time: 16:17 [facility] 07/25 15:30 Order name: Urine Dipstick-Ancillary (obtain specimen); Complete Time: 16:56 [facility] 07/25 16:49 Order name: Labs - recollect needed; Complete Time: 17:28 bd Administered Medications: 16:16 Drug: NS 0.9% 1000 ml Route: IV; Rate: 1000 ml; Site: left forearm; sg 18:25 Follow up: Response: No adverse reaction; IV Status: Completed infusion; IV Intake: sv 1000ml 17:20 Drug: ProTONIX 40 mg Route: IVP; Site: right antecubital; sg 19:20 Follow up: Response: No adverse reaction ak1 17:27 Drug: ProTONIX 8 mg/hr Route: IV; Rate: 25 ml/hr; Site: right antecubital; sg 21:59 Follow up: IV Status: Infusion continued upon transfer ak1 17:27 Drug: Rocephin 1 grams Route: IV; Rate: calculated rate; Site: right antecubital; sg 21:58 Follow up: IV Status: Completed infusion ak1 19:31 Not Given (pt did not tolerate water at this time, Natalie CASTAÑEDA notified): Lactulose 30 sg grams 45 ml PO once 19:48 Drug: Octreotide Infusion (50 mcg/hr) - (Octreotide 500 mcg, NS 0.9% 500 ml) Route: IV; ak1 Rate: 50 ml/hr; Site: right wrist; 21:58 Follow up: IV Status: Infusion continued upon transfer ak1 Point of Care Testing: Blood Glucose: 15:42 Blood Glucose: 153 mg/dL; sv Ranges: Critical Glucose Levels:Adult <50 mg/dl or >400 mg/dl <40 mg/dl or >180 mg/dl Disposition: 20:42 Critical Care:. 8 07/26 09:57 Co-signature as Attending Physician, Jose Alcantara MD. rn Disposition: 07/25/18 19:42 Transfer ordered to [facility]. Diagnosis are Altered mental status, unspecified, Gastrointestinal hemorrhage, unspecified, Anemia, Hepatic Encepalopathy . - Reason for transfer: Higher level of care. - Accepting physician is Dr. Vegas. - Condition is Stable. - Problem is new. - Symptoms are unchanged. Critical care time excluding procedures: 07/25 20:42 Critical care time: Bedside Care: 20 minutes, Consultation: 20 minutes. Total time: 40 jr8 minutes Signatures: Dispatcher [employer] Tianna Farfan Stephanie, RN Paul Mello RN Jose Coyne MD MD rn Roszak, Josh, PA PA [facility] Miracle Harrington RN RN ak1 Corrections: (The following items were deleted from the chart) 15:58 15:57 All other systems are negative, 8 8 23:27 19:42 07/25/2018 19:42 Transfer ordered to [facility]. Diagnosis is jr8 Altered mental status, unspecified; Gastrointestinal hemorrhage, unspecified; Anemia; Hepatic Encepalopathy . Reason for transfer: Higher level of care. Accepting physician is Dr. Grijalva. Condition is Stable. Problem is new. Symptoms are unchanged. jr8 07/26 01:34 07/25 23:27 07/25/2018 19:42 Transfer ordered to [facility]. Diagnosis is Altered ak1 mental status, unspecified; Gastrointestinal hemorrhage, unspecified; Anemia; Hepatic Encepalopathy . Reason for transfer: Higher level of care. Accepting physician is Dr. Vegas. Condition is Stable. Problem is new. Symptoms are unchanged. jr8
[2018-07-25] MEDS ORDERED: OCTREOTIDE 500 MCG in NA CHLORIDE 0.9% 500 ML IV SCH (20:00)
[2018-07-25 21:54] LABS: Hematocrit 24.5 % (39.6-49.0)
[2018-07-26 02:16] VITALS: O2SAT 100
[2018-07-26 02:22] VITALS: BP 133/45; TEMP 98.1
== END 2018-07-26 01:34 | disposition short-term general hospital (02) ==
LOC: ER 15:26
PROC: 30233N1 Transfusion of Nonautologous Red Blood Cells into Peripheral Vein, Percutaneous Approach (ICD-10-PCS; principal; 2018-07-26)
DX: K92.2 Gastrointestinal hemorrhage, unspecified (principal); D64.9 Anemia, unspecified; K72.90 Hepatic failure, unspecified without coma; I10 Essential (primary) hypertension; I25.2 Old myocardial infarction; E11.9 Type 2 diabetes mellitus without complications; F10.10 Alcohol abuse, uncomplicated
CPT/HCPCS: 36415; 36430; 70450; 71045; 80048; 80076; 82140; 82272; 82550; 82962; 83605; 83690; 84145; 84484; 85014; 85018; 85025; 85610; 85730; 86850; 86900; 86901; 87040 ×2; 87077; 87086; 87088; 87186; 99285; C9113 ×2; J0696; J2354; J7030; P9016 ×2; 81003; 81015

== ENCOUNTER 2018-08-03 16:20 | Emergency (ER) | payer OTHER ==
--- OUTSIDE RECORDS SUMMARY | 2018-08-03 16:23 | XMS REPORT ---
:1940 [facility] Organization [facility] Address [address] [place] [address] Dr. Hannon [address] [place] [id number] Care Team Providers Name Role Phone Unavailable Unavailable Unavailable Problems This patient has no known problems. Allergies, Adverse Reactions, Alerts This patient has no known allergies or adverse reactions. Medications This patient has no known medications.
[2018-08-03 16:57] LABS: Absolute Lymphocytes (CBC) 1.4 K/uL (0.7-4.9); Absolute Monocytes 0.9 K/uL (0.1-1.3); Absolute Neutrophil 2.3 K/uL (1.8-8.0); Basophils % 0.4 % (0-1.3); Eosinophils % 3.6 % (0-4.4); Hematocrit 25.8 % (39.6-49.0); Lymphocytes % 29.6 % (15.3-44.8); MPV 8.5 fL (7.6-11.3); Monocytes % 18.4 % (3.3-12.3); RBC Red Blood Cell Count 2.87 M/uL (4.33-5.43)
[2018-08-03 17:06] LABS: BUN Blood Urea Nitrogen 6 mg/dL (7-18); Bicarbonate 24 mmol/L (21-32); Glucose Level 174 mg/dL (74-106); Potassium 3.5 mmol/L (3.5-5.1); Sodium Level 139 mmol/L (136-145)
--- NOTE | 2018-08-03 17:31 | ER ---
Nurse's Notes [facility] Name: Jean Lucio III Age: 78 yrs Sex: Male : 1940 Arrival Date: 08/03/2018 Time: 16:23 Bed 6 Private MD: Diagnosis: Encounter for general adult medical examination without abnormal findings Presentation: 08/03 16:25 Presenting complaint: Patient states: from [facility], i was told my kidney wasn't hj working right; they brought me here; pt states "i feel fine"; no report given to dispatch manager; per paperwork's- creatinine elevated- 11.59;. Transition of care: patient was not received from another setting of care. Onset of symptoms was August 03, 2018. Risk Assessment: Do you want to hurt yourself or someone else? Patient reports no desire to harm self or others. Initial Sepsis Screen: Does the patient meet any 2 criteria? No. Patient's initial sepsis screen is negative. Does the patient have a suspected source of infection? No. Patient's initial sepsis screen is negative. Care prior to arrival: None. 16:25 Method Of Arrival: Ambulatory 16:25 Acuity: RITA 3 hj 16:30 Note paperwork's from [facility] attached to chart. Triage Assessment: 16:28 General: Appears in no apparent distress. uncomfortable, Behavior is calm, cooperative, hj appropriate for age. Pain: Denies pain. Historical: - Allergies: 16:28 No Known Allergies; hj - Home Meds: 16:28 carvedilol 3.125 mg Oral tab 1 tab 2 times per day [Active]; Colace 100 mg Oral cap 1 hj cap 2 times per day [Active]; cefdinir 300 mg Oral cap 1 cap every 12 hours [Active]; dulera [Active]; Iron CR Oral [Active]; Lasix 40 mg Oral tab 1 tab once daily [Active]; levemir [Active]; lisinopril 2.5 mg Oral tab 1 tab once daily [Active]; neomycin 500 mg Oral tab 3 times per day [Active]; NOVOLOG [Active]; pantoprazole 40 mg Oral TbEC 1 tab 2 times per day [Active]; potassium chloride 10 mEq Oral cpER 1 cap once daily [Active]; simvastatin 20 mg Oral tab 1 tab once daily [Active]; spironolactone 25 mg Oral tab 1 tab once daily [Active]; tamsulosin 0.4 mg Oral cp24 1 cap once daily [Active]; - PMHx: 16:28 Anemia; Angiodysplasia of duodenum; CAD s/p [place]; Cholithiasis; COPD; Diabetes - NIDDM; hj diagnosed with cancer at [place], did not seek treatment; etoh abuse; Gastric varices; GERD; Hyperlipidemia; Hypertension; metabolic encephalopathy; Myocardial infarction; Pneumonia; rhabdomyolysis; UTI; - Immunization history:: Adult Immunizations up to date. - Social history:: Smoking status: Patient/guardian denies using tobacco, Patient/guardian denies using alcohol. - Ebola Screening: : Patient negative for fever greater than or equal to 101.5 degrees Fahrenheit, and additional compatible Ebola Virus Disease symptoms Patient denies exposure to infectious person Patient denies travel to an Ebola-affected area in the 21 days before illness onset. - Family history:: not pertinent. - Hospitalizations: : Patient was recently seen at [facility]. Screenin:28 Abuse screen: Denies threats or abuse. Denies injuries from another. Nutritional hj screening: No deficits noted. Tuberculosis screening: No symptoms or risk factors identified. Fall Risk None identified. Assessment: 16:43 Reassessment: Nurse at [facility] stated pt was discharged from [facility] in [place] on Thursday sv with a GI bleed and had routine labs drawn yesterday that showed his creatinine was elevated. 16:47 General: Appears in no apparent distress. well groomed, Behavior is calm, cooperative, tw2 appropriate for age. Pain: Denies pain. Neuro: Level of Consciousness is awake, alert, obeys commands, Oriented to person, place, time, situation. Cardiovascular: Denies chest pain, shortness of breath, Heart tones S1 S2 Capillary refill < 3 seconds Patient's skin is warm and dry. Respiratory: Airway is patent Respiratory effort is even, unlabored, Respiratory pattern is regular, symmetrical, Breath sounds are clear bilaterally. GI: No signs and/or symptoms were reported involving the gastrointestinal system. Abdomen is flat, Bowel sounds present X 4 quads. : No signs and/or symptoms were reported regarding the genitourinary system. EENT: No signs and/or symptoms were reported regarding the EENT system. Derm: No signs and/or symptoms reported regarding the dermatologic system. Musculoskeletal: Range of motion: intact in all extremities. 17:39 Reassessment: JENIFER Watkins gave to report to JENIFER Mohamud at [facility], reported to [facility] that tw2 the lab work and paperwork they sent from their facility has the wrong pt and the lab work has the wrong pt name and . Pt verified his and name with our records today. Our labs were resulted and reviewed by Dr. Alcantara, copy of lab sent back with pt in discharge packet. 17:40 Reassessment: Patient appears in no apparent distress at this time. No changes from tw2 previously documented assessment. Patient and/or family updated on plan of care and expected duration. Pain level reassessed. Patient is alert, oriented x 3, equal unlabored respirations, skin warm/dry/pink. Vital Signs: 16:29 BP 124 / 45; Pulse 75; Resp 18; Temp 98.6(O); Pulse Ox 98% on R/A; Weight 72.57 kg; hj Height 6 ft. 0 in. (182.88 cm); Pain 0/10; 17:40 BP 138 / 55; Pulse 71; Resp 17; Pulse Ox 97% on R/A; tw2 16:29 Body Mass Index 21.70 (72.57 kg, 182.88 cm) ED Course: 16:23 Patient arrived in ED. rg4 16:26 Triage completed. hj 16:28 Arm band placed on left wrist. hj 16:28 Patient has correct armband on for positive identification. Placed in gown. Bed in low hj position. Call light in reach. Side rails up X 1. 16:32 Jose Alcantara MD is Attending Physician. rn 16:33 Fatuma Kang, JENIFER is Primary Nurse. tw2 16:40 Inserted saline lock: 22 gauge in right hand, using aseptic technique. Blood collected. tw2 17:41 No provider procedures requiring assistance completed. IV discontinued, intact, tw2 bleeding controlled, No redness/swelling at site. Pressure dressing applied. Administered Medications: No medications were administered Output: 16:59 Urine: 250ml (Voided); Total: 250ml. tw2 Outcome: 17:30 Discharge ordered by . rn 17:41 Discharged to [facility]. tw2 17:41 Condition: stable 17:41 Discharge instructions given to patient, family, Instructed on discharge instructions, follow up and referral plans. Demonstrated understanding of instructions, follow-up care. 17:42 Patient left the ED. tw2 Signatures: June Florence RN RN sv Nieto, Roman, MD MD rn Joaquin, Henry, RN RN hj Wise, Tara, RN RN tw2 Laury Waller rg4 Corrections: (The following items were deleted from the chart) 16:31 16:29 Pulse 75bpm; Resp 18bpm; Pulse Ox 98% RA; Temp 98.6F Oral; 72.57 kg; Height 6 ft. hj 0 in.; BMI: 21.7; Pain 0/10; hj 16:32 16:25 Presenting complaint: Patient states: from [facility], i was told my kidney hj wasn't working right; they brought me here; pt states "i feel fine"; no report given to dispatch manager; 17:59 17:39 Reassessment: JENIFER Watkins gave to report to jenifer Gant at [facility], reported to them tw2 that the lab work has the wrong pt that they sent, our labs were resulted and reviewed by Dr. Alcantara, copy of lab sent back with pt in discharge packet. tw2 18:01 17:39 Reassessment: JENIFER Watkins gave to report to jenifer Gant at [facility], reported to [facility] tw2 that the lab work and paperwork they sent from their facility has the wrong pt and the lab work has the wrong pt name and . Pt verified his and name with our records today. Our labs were resulted and reviewed by Dr. Alcantara, copy of lab sent back with pt in discharge packet. tw2 18:02 17:39 Reassessment: JENIFER Watkins gave to report to S at [facility], reported to [facility] that the tw2 lab work and paperwork they sent from their facility has the wrong pt and the lab work has the wrong pt name and . Pt verified his and name with our records today. Our labs were resulted and reviewed by Dr. Alcantara, copy of lab sent back with pt in discharge packet. tw2
--- NOTE | 2018-08-03 17:31 | EDPHYS ---
Physician Documentation [facility] Unit Name: Jean Lucio III Age: 78 yrs Sex: Male : 1940 Arrival Date: 08/03/2018 Time: 16:23 Bed 6 Private MD: ED Physician Jose Alcantara HPI: 08/03 16:43 This 78 yrs old Male presents to ER via Ambulatory with complaints of rn Abnormal Lab Results. 16:43 Reports sent here by [facility] for "kidney problem", patient states feels rn fine, asymptomatic, reports sent to [facility] last week for unknown reason and no results given to him other than had EGD and told they "didn't find anything". . Onset: The symptoms/episode began/occurred at an unknown time. Severity of symptoms:. The patient has not experienced similar symptoms in the past. The patient has been recently seen by a physician:. Historical: - Allergies: 16:28 No Known Allergies; hj - Home Meds: 16:28 carvedilol 3.125 mg Oral tab 1 tab 2 times per day [Active]; Colace 100 mg Oral cap 1 hj cap 2 times per day [Active]; cefdinir 300 mg Oral cap 1 cap every 12 hours [Active]; dulera [Active]; Iron CR Oral [Active]; Lasix 40 mg Oral tab 1 tab once daily [Active]; levemir [Active]; lisinopril 2.5 mg Oral tab 1 tab once daily [Active]; neomycin 500 mg Oral tab 3 times per day [Active]; NOVOLOG [Active]; pantoprazole 40 mg Oral TbEC 1 tab 2 times per day [Active]; potassium chloride 10 mEq Oral cpER 1 cap once daily [Active]; simvastatin 20 mg Oral tab 1 tab once daily [Active]; spironolactone 25 mg Oral tab 1 tab once daily [Active]; tamsulosin 0.4 mg Oral cp24 1 cap once daily [Active]; - PMHx: 16:28 Anemia; Angiodysplasia of duodenum; CAD s/p [place]; Cholithiasis; COPD; Diabetes - NIDDM; hj diagnosed with cancer at [place], did not seek treatment; etoh abuse; Gastric varices; GERD; Hyperlipidemia; Hypertension; metabolic encephalopathy; Myocardial infarction; Pneumonia; rhabdomyolysis; UTI; - Immunization history:: Adult Immunizations up to date. - Social history:: Smoking status: Patient/guardian denies using tobacco, Patient/guardian denies using alcohol. - Ebola Screening: : Patient negative for fever greater than or equal to 101.5 degrees Fahrenheit, and additional compatible Ebola Virus Disease symptoms Patient denies exposure to infectious person Patient denies travel to an Ebola-affected area in the 21 days before illness onset. - Family history:: not pertinent. - Hospitalizations: : Patient was recently seen at [facility]. ROS: 16:43 Constitutional: Negative for fever, chills, and weight loss, Eyes: Negative for injury, rn pain, redness, and discharge, Neck: Negative for injury, pain, and swelling, Cardiovascular: Negative for chest pain, palpitations, and edema, Respiratory: Negative for shortness of breath, cough, wheezing, and pleuritic chest pain, Abdomen/GI: Negative for abdominal pain, nausea, vomiting, diarrhea, and constipation, MS/Extremity: Negative for injury and deformity, Skin: Negative for injury, rash, and discoloration, Neuro: Negative for headache, weakness, numbness, tingling, and seizure. Exam: 16:43 Constitutional: This is a well developed, well nourished patient who is awake, alert, rn and in no acute distress. Head/Face: Normocephalic, atraumatic. Eyes: Pupils equal round and reactive to light, extra-ocular motions intact. ENT: MMM Cardiovascular: Regular rate and rhythm with a normal S1 and S2. No gallops, murmurs, or rubs. No pulse deficits. Respiratory: Lungs have equal breath sounds bilaterally, clear to auscultation. No rales, rhonchi or wheezes noted. No increased work of breathing, no retractions or nasal flaring. Abdomen/GI: soft, non-tender Skin: Warm, dry, no evidence of cellulitis. MS/ Extremity: Pulses equal, no cyanosis. Neurovascular intact. Full, normal range of motion. Equal circumference. Neuro: Awake and alert, GCS 15, oriented to person, place, time, and situation. Cranial nerves II-XII grossly intact. Motor strength 5/5 in all extremities. Sensory grossly intact. Vital Signs: 16:29 BP 124 / 45; Pulse 75; Resp 18; Temp 98.6(O); Pulse Ox 98% on R/A; Weight 72.57 kg; hj Height 6 ft. 0 in. (182.88 cm); Pain 0/10; 17:40 BP 138 / 55; Pulse 71; Resp 17; Pulse Ox 97% on R/A; tw2 16:29 Body Mass Index 21.70 (72.57 kg, 182.88 cm) hj MDM: 16:32 Patient medically screened. rn 17:28 Differential Diagnosis wrong labs, dehydration, contrast induced nephropathy. Data rn reviewed: vital signs, nurses notes, lab test result(s), and as a result, I will discharge patient. Counseling: I had a detailed discussion with the patient and/or guardian regarding: the historical points, exam findings, and any diagnostic results supporting the discharge/admit diagnosis, lab results, the need for outpatient follow up, to return to the emergency department if symptoms worsen or persist or if there are any questions or concerns that arise at home. Special discussion: I discussed with the patient/guardian in detail that at this point there is no indication for admission to the hospital. It is understood, however, that if the symptoms persist or worsen the patient needs to return immediately for re-evaluation. ED course: Lab results for creatinine are normal, + mild anemia but just had full GI bleed eval with no acute findings, asymptomatic, will dc back to intermediate, daughter wants to take him back, and results printed for intermediate.. 08/03 16:42 Order name: CBC with Diff rn 08/03 16:42 Order name: Basic Metabolic Panel; Complete Time: 17:26 rn 08/03 16:42 Order name: IV Start; Complete Time: 16:48 rn 08/03 16:42 Order name: LDH; Complete Time: 17:26 rn 08/03 16:42 Order name: Urine Dipstick-Ancillary (obtain specimen); Complete Time: 17:00 rn 08/03 16:59 Order name: Urine Dipstick--Ancillary (enter results) ag Administered Medications: No medications were administered Disposition: 08/03/18 17:30 Discharged to Home. Impression: Encounter for general adult medical examination without abnormal findings. - Condition is Stable. - Discharge Instructions: Anemia, Nonspecific. - Medication Reconciliation Form, Thank You Letter, Antibiotic Education, Prescription Opioid Use form. - Follow up: Private Physician; When: As needed; Reason: Recheck today's complaints, Re-evaluation by your physician. - Problem is new. - Symptoms have improved. Signatures: Dispatcher [employer] EDJose Wharton MD MD rn Joaquin, Henry, RN RN hj Wise, Tara, RN RN tw2 Corrections: (The following items were deleted from the chart) 17:42 17:30 08/03/2018 17:30 Discharged to Home. Impression: Encounter for general adult tw2 medical examination without abnormal findings. Condition is Stable. Forms are Medication Reconciliation Form, Thank You Letter, Antibiotic Education, Prescription Opioid Use. Follow up: Private Physician; When: As needed; Reason: Recheck today's complaints, Re-evaluation by your physician. Problem is new. Symptoms have improved. rn
[2018-08-03 18:48] LABS: Urine Blood TRACE (NEG); Urine Glucose TRACE (NEG); Urine Protein NEGATIVE (NEG); Urine Specific Gravity 1.015 (1.005-1.030)
[2018-08-03 19:30] LABS: Anisocytosis 1+; Blood Morphology Comment NOTED (NOT SEEN); Platelet Estimate DECR; Poikilocytosis SLIGHT; Urine White Blood Cell Casts OK
[2018-08-03 19:31] VITALS: TEMP 98.6
[2018-08-03 19:37] VITALS: BP 138/55; O2SAT 97
== END 2018-08-03 17:42 | disposition home or self-care (01) ==
LOC: ER 16:20
DX: Z00.00 Encounter for general adult medical examination without abnormal findings (principal); D64.9 Anemia, unspecified; E11.9 Type 2 diabetes mellitus without complications; E78.5 Hyperlipidemia, unspecified; I10 Essential (primary) hypertension; I25.10 Atherosclerotic heart disease of native coronary artery without angina pectoris; I25.2 Old myocardial infarction; K21.9 Gastro-esophageal reflux disease without esophagitis; Z79.4 Long term (current) use of insulin; Z79.899 Other long term (current) drug therapy
CPT/HCPCS: 36415; 80048; 81003; 83615; 85025; 99283

== ENCOUNTER 2018-12-13 09:33 | Emergency (ER) | payer OTHER ==
--- OUTSIDE RECORDS SUMMARY | 2018-12-13 09:35 | XMS REPORT | Clinical Summary ---
:1940 Author Organization [facility] Address [address] [place] [address] Care Team Providers Name Role Phone Amina Primary Care Provider Allergies No Known Allergies Medications Medication Sig Dispensed Refills Start Date End Date Status simvastatin (ZOCOR) 10 Take 10 mg by 0 Active MG tablet mouth nightly. ferrous sulfate 325 (65 Take 325 mg by 0 Active FE) MG tablet mouth daily with breakfast. Active Problems Problem Noted Date Acute urinary retention 09/24/2017 Acute respiratory failure with hypoxia 09/22/2017 Essential hypertension 09/22/2017 Alcoholic cirrhosis of liver with ascites 09/22/2017 Pleural effusion 09/22/2017 Anemia 09/22/2017 GIB (gastrointestinal bleeding) 09/18/2017 Family History Medical History Relation Name Comments Throat cancer Father Diabetes Mother Relation Name Status Comments Father Mother Social History Tobacco Use Types Packs/Day Years Used Date Former Smoker 1 Quit: 09/13/2017 Smokeless Tobacco: Never Used Alcohol Use Drinks/Week oz/Week Comments No quit 5 days ago 09-14-17 Sex Assigned at Date Recorded Not on file Job Start Date Occupation Industry Not on file Not on file Not on file Travel History Travel Start Travel End No recent travel history available. Last Filed Vital Signs Not on file Plan of Treatment Not on file Results Not on fileafter 12/12/2017 Insurance Payer Benefit Plan / Group Subscriber ID Type Phone Address MEDICARE MEDICARE A B xxxxxxxxxxx Medicare MEDICAID MEDICAID [facility] xxxxxxxxx Medicaid Advance Directives For more information, please contact:[facility] [id number] [phone] Code Status Date Activated Date Inactivated Comments Full Code 09/18/2017 2:28 PM 09/25/2017 8:49 PM This code status was determined by: Patient
--- OUTSIDE RECORDS SUMMARY | 2018-12-13 09:37 | XMS REPORT ---
:1940 [facility] Address [address] [place] [address] Dr. Almanza. [address] [place] [address] Care Team Providers Name Role Phone OCHOA, ROSALVA ESSENCE Unavailable Unavailable Problems This patient has no known problems. Allergies, Adverse Reactions, Alerts This patient has no known allergies or adverse reactions. Medications This patient has no known medications. Results Test Description Test Time Test Comments Text Results Atomic Results Result Comments FRANCY RANDOLPH, 2017-09-25 Liver protocol Addendum BeginsREPORT STATUS:A WITH 20:13:00 based on 09/[address] of chest section should include: Thickening shows liver of both adrenal glands without mass discrete nodules. Signed: Geovany Srinivasan MDReport Verified Date/Time: 09/25/2017 20:13:03 Reading Location: [place] [address]Y CT Body Reading RoomAddendum EndsFINAL REPORT TECHNIQUE: MRI of the abdomen WITHOUT and WITH intravenous contrast. INDICATION: 77-year-old man with liver masses. COMPARISON: None. FINDINGS: LOWER THORAX: Trace bilateral pleural effusions. LIVER: Cirrhotic morphology of the liver. 2.8 cm T1 hyperintense lesion in the periphery of segment VIII with arterial enhancement, washout, and capsule with (axial postcontrast arterial series image 25). BILIARY: Sludge in the gallbladder. Mild gallbladder wall thickening, nonspecific in the setting of cirrhosis. 0.8 cm area of cystic change in the wall of the gallbladder fundus, suggestive of adenomyomatosis. No biliary ductal dilatation or filling defect.SPLEEN: Enlarged, measuring 14.2 cm in the craniocaudal dimension.PANCREAS: No focal masses or ductal dilatation. ADRENALS: No adrenal nodules.KIDNEYS/URETERS: No hydronephrosis or solid mass lesions. Renal cysts measure 0.7 cm on the right and 1.4 cm on the left. PERITONEUM/RETROPERITONEUM: Small amount of ascites.LYMPH NODES: No lymphadenopathy.VESSELS: Portal and superior mesenteric veins are patent. Splenic vein is not clearly visualized, and may be thrombosed. Perisplenic and perihepatic collateral vessels. GI TRACT: No distention or wall thickening. BONES AND SOFT TISSUES: Degenerative changes of the visualized spine. IMPRESSION:Cirrhosis with portal hypertension and small volume ascites. 2.8 cm lesion in segment VIII of the liver, consistent with hepatocellular carcinoma. Signed: Geovany Srinivasan MDReport Verified Date/Time: 09/25/2017 13:46:41 Reading Location: [facility] B1 C013Y CT Body Reading Room C METABOLIC PANEL 2017-09-25 14:10:00 Test Item Value Reference Range Comments SODIUM (BEAKER) (test 135 meq/L 135-148 rmfv=787) POTASSIUM (BEAKER) (test 3.5 meq/L 3.5-5.5 jiqu=375) CHLORIDE (BEAKER) (test 99 meq/L 98-106 mlaw=408) CO2 (BEAKER) (test 28 meq/L 20-31 pgdg=124) BLOOD UREA NITROGEN 8 mg/dL 10-26 (BEAKER) (test lkty=035) CREATININE (BEAKER) (test 0.64 mg/dL 0.50-1.20 xmlt=109) GLUCOSE RANDOM (BEAKER) 180 mg/dL 70-110 (test skvd=646) CALCIUM (BEAKER) (test 8.3 mg/dL 8.5-10.5 xfcl=084) EGFR (BEAKER) (test 122 mL/min/1.73 sq m ESTIMATED GFR IS NOT bxtc=8872) ACCURATE CREATININE CLEARANCE IN PREDICTING GLOMERULAR FILTRATION RATE. ESTIMATED GFR IS NOT APPLICABLE FOR DIALYSIS PATIENTS. POCT-GLUCOSE [id number] 13:03:00 Test Item Value Reference Range Comments POC-GLUCOSE METER (BEAKER) 160 mg/dL 70-110 TESTED AT [facility] [address] (test pxzn=3401) [facility] [address] [id number] 09:47:00 Test Item Value Reference Range Comments PARTIAL THROMBOPLASTIN TIME (BEAKER) (test 42.3 seconds 23.2-36.1 jgwi=733) PROTHROMBIN [id number] 09:45:00 Test Item Value Reference Range Comments PROTIME (BEAKER) (test rkmk=711) 17.6 seconds 11.8-14.4 INR (BEAKER) (test zmpg=378) 1.4 1.2-1.5 RECOMMENDED COUMADIN/WARFARIN INR THERAPY RANGESSTANDARD DOSE: 2.0 - 3.0 Includes: PROPHYLAXIS forvenous thrombosis, systemic embolization; TREATMENT for venous thrombosis and/or pulmonary embolus.HIGH RISK: Target INR is 2.5-3.5 for patients with mechanical heart valves.POCT-GLUCOSE [id number] 07:23:00 Test Item Value Reference Range Comments POC-GLUCOSE METER (BEAKER) 171 mg/dL 70-110 TESTED AT [address] (test ebsm=6219) [place] [address] POCT-GLUCOSE [id number] 21:35:00 Test Item Value Reference Range Comments POC-GLUCOSE METER (BEAKER) 209 mg/dL 70-110 TESTED AT [address] (test rgmf=9025) [place] [address] ALPHA FETOPROTEIN (AFP), TUMOR [id number] 18:39:00 Test Item Value Reference Range Comments ALPHA-FETOPROTEIN (BEAKER) (test cvns=4418) 215.0 ng/mL <10.0 POCT-GLUCOSE [id number] 16:42:00 Test Item Value Reference Range Comments POC-GLUCOSE METER (BEAKER) 254 mg/dL 70-110 TESTED AT [address] (test lksn=7600) [place] [address] RESPIRATORY PANEL [id number] 15:20:00 Test Item Value Reference Range Comments HUMAN METAPNEUMOVIRUS (BEAKER) (test Not detected Not detected, Inconclusive cfgt=5620) RHINOVIRUS (BEAKER) (test qxif=9953) Not detected Not detected, Inconclusive INFLUENZA A (BEAKER) (test Not detected Not detected, Inconclusive iozb=9918) INFLUENZA A SUBTYPE H1 (BEAKER) Not detected Not detected, Inconclusive (test zqic=8022) INFLUENZA A SUBTYPE H3 (BEAKER) Not detected Not detected, Inconclusive (test vtfb=1900) INFLUENZA A SUBTYPE H1-2009 (BEAKER) Not detected Not detected, Inconclusive (test vhpn=7064) INFLUENZA B (BEAKER) (test Not detected Not detected, Inconclusive hdls=7518) RESPIRATORY SYNCYTIAL VIRUS (BEAKER) Not detected Not detected, Inconclusive (test diaf=8027) PARAINFLUENZA VIRUS 1 (BEAKER) (test Not detected Not detected, Inconclusive wclv=7304) PARAINFLUENZA VIRUS 2 (BEAKER) (test Not detected Not detected, Inconclusive sxhg=7753) PARAINFLUENZA VIRUS 3 (BEAKER) (test Not detected Not detected, Inconclusive afzc=1141) PARAINFLUENZA VIRUS 4 (BEAKER) (test Not detected Not detected, Inconclusive sfyr=7136) ADENOVIRUS (BEAKER) (test ucqq=6671) Not detected Not detected, Inconclusive CORONAVIRUS 229E (BEAKER) (test Not detected Not detected, Inconclusive dzdr=7725) CORONAVIRUS HKU1 (BEAKER) (test Not detected Not detected, Inconclusive pvoa=1334) CORONAVIRUS NL63 (BEAKER) (test Not detected Not detected, Inconclusive aznp=9506) CORONAVIRUS OC43 (BEAKER) (test Not detected Not detected, Inconclusive dkrb=2994) BORDETELLA PERTUSSIS (BEAKER) (test Not detected Not detected, Inconclusive hyyt=0307) CHLAMYDOPHILA PNEUMONIAE (BEAKER) Not detected Not detected, Inconclusive (test coom=3145) MYCOPLASMA PNEUMONIAE (BEAKER) (test Not detected Not detected, Inconclusive fxoq=3087) POCT-GLUCOSE [id number] 13:03:00 Test Item Value Reference Range Comments POC-GLUCOSE METER (BEAKER) 176 mg/dL 70-110 TESTED AT [facility] [address] (test tigc=1513) [facility] [address] POCT-GLUCOSE [id number] 07:51:00 Test Item Value Reference Range Comments POC-GLUCOSE METER (BEAKER) 172 mg/dL 70-110 TESTED AT [facility] [address] (test hukh=8325) [facility] [address] BASIC METABOLIC [id number] 07:06:00 Test Item Value Reference Range Comments SODIUM (BEAKER) (test 137 meq/L 135-148 fznn=103) POTASSIUM (BEAKER) (test 3.4 meq/L 3.5-5.5 isfa=952) CHLORIDE (BEAKER) (test 100 meq/L 98-106 dsoo=370) CO2 (BEAKER) (test 31 meq/L 20-31 urny=169) BLOOD UREA NITROGEN 9 mg/dL 10-26 (BEAKER) (test hwrh=022) CREATININE (BEAKER) (test 0.60 mg/dL 0.50-1.20 eyzp=983) GLUCOSE RANDOM (BEAKER) 149 mg/dL 70-110 (test diwc=787) CALCIUM (BEAKER) (test 8.2 mg/dL 8.5-10.5 qbde=664) EGFR (BEAKER) (test 131 mL/min/1.73 sq m ESTIMATED GFR IS NOT orwx=4854) ACCURATE CREATININE CLEARANCE IN PREDICTING GLOMERULAR FILTRATION RATE. ESTIMATED GFR IS NOT APPLICABLE FOR DIALYSIS PATIENTS. CBC W/PLT COUNT & AUTO [id number] 05:59:00 Test Item Value Reference Range Comments WHITE BLOOD CELL COUNT (BEAKER) (test fihb=046) 6.6 K/ L 4.0-10.0 RED BLOOD CELL COUNT (BEAKER) (test bfhg=959) 2.99 M/ L 4.20-5.80 HEMOGLOBIN (BEAKER) (test zpay=118) 8.8 GM/DL 13.0-16.8 HEMATOCRIT (BEAKER) (test nngz=761) 28.3 % 40.0-50.0 MEAN CORPUSCULAR VOLUME (BEAKER) (test mblm=184) 94.6 fL 82.0-98.0 MEAN CORPUSCULAR HEMOGLOBIN (BEAKER) (test 29.5 pg 27.0-33.0 qsmw=246) MEAN CORPUSCULAR HEMOGLOBIN CONC (BEAKER) (test 31.2 GM/DL 32.0-36.0 wftn=027) RED CELL DISTRIBUTION WIDTH (BEAKER) (test 16.1 % 12.0-15.0 mjxe=157) PLATELET COUNT (BEAKER) (test hqxi=768) 119 K/CU MM 150-430 MEAN PLATELET VOLUME (BEAKER) (test qdxm=168) 8.3 fL 6.5-10.5 NUCLEATED RED BLOOD CELLS (BEAKER) (test 0 /100 WBC 0-0 huxg=156) NEUTROPHILS RELATIVE PERCENT (BEAKER) (test 61 % ftqi=714) LYMPHOCYTES RELATIVE PERCENT (BEAKER) (test 22 % irsh=955) MONOCYTES RELATIVE PERCENT (BEAKER) (test 10 % htwb=996) EOSINOPHILS RELATIVE PERCENT (BEAKER) (test 7 % wqpi=278) BASOPHILS RELATIVE PERCENT (BEAKER) (test 1 % iobb=115) NEUTROPHILS ABSOLUTE COUNT (BEAKER) (test 4.10 K/ L 1.80-8.00 kddx=696) LYMPHOCYTES ABSOLUTE COUNT (BEAKER) (test 1.40 K/ L 1.48-4.50 dcja=844) MONOCYTES ABSOLUTE COUNT (BEAKER) (test 0.60 K/ L 0.00-1.30 uwbw=535) EOSINOPHILS ABSOLUTE COUNT (BEAKER) (test 0.50 K/ L 0.00-0.50 pxos=250) BASOPHILS ABSOLUTE COUNT (BEAKER) (test 0.00 K/ L 0.00-0.20 ozco=649) LEGIONELLA ANTIGEN, [id number] 22:05:00 Test Item Value Reference Range Comments L. PNEUMOPHILA SEROGP 1 Negative - see Negative for L. UR AG (BEAKER) (test comment pneumophila serogroup 1 rvof=1038) antigen, suggesting no recent or current infection with this serogroup. Legionellosis cannot be ruled out since other serogroups and species may cause disease. STREP PNEUMONIAE [id number] 22:05:00 Test Item Value Reference Range Comments STREP PNEUMONIAE ANTIGEN Presumptive negative for Presumptive negative for (BEAKER) (test pneumococcal pneumonia - pneumococcal pneumonia - phao=5580) see comment see commen Presumptive negative for pneumococcal pneumonia, suggesting no current or recent pneumococcal infection. Infection due to S. pneumoniae cannot be ruled out since the antigen present in the sample may be below the detection limit of the test.POCT-GLUCOSE [id number] 21:16:00 Test Item Value Reference Range Comments POC-GLUCOSE METER (BEAKER) 127 mg/dL 70-110 TESTED AT [facility] [address] (test yxqz=5951) [facility] [address] POCT-GLUCOSE [id number] 18:08:00 Test Item Value Reference Range Comments POC-GLUCOSE METER (BEAKER) 242 mg/dL 70-110 TESTED AT [facility] [address] (test voum=1228) [facility] [address] CT, CHEST, WITHOUT [id number] 15:33:00FINAL REPORT CT of the Chest dated 09/23/2017 CLINICAL INFORMATION: Sepsis Comment: Axial images of the chest were obtained from thoracic inlet to the upper abdomen without intravenous contrast. This exam was performed according to our departmental dose-optimization program, which includes automated exposure control, adjustment of the mA and/or kV according to patient sizeand/or use of interactive reconstruction technique. Heart is normal in size. Atherosclerotic calcification is seen in the thoracic aorta and coronary arteries. Great vessels are unremarkable. No adenopathy in the mediastinum or perihilar region. Trachea and mainstem bronchi are patent. There is wall thickening in the esophagus is suggestive of esophagitis. Small bilateral pleural effusion is presentwith the bibasilar subsegmental atelectasis. Groundglass pulmonary parenchymal disease is seen in the rest of the lungs. Differential diagnosis for the groundglass pulmonary parenchymal disease is the following: usual interstitial pneumonia, nonspecific interstitial pneumonitis, desquamative interstitial pneumonia, hypersensitivity pneumonitis, pulmonary edema or pulmonary hemorrhage. Visualized upper abdomen demonstrates trace ascites. Liver is is cirrhotic in appearance with irregular margins. A 2.2 cm enhancing mass is seen in the segment 8 of the liver suspicious for hepatocellular carcinoma. Impression: 1. Bilateral pleural effusion with bibasilar subsegmental atelectasis.2. Nonspecific groundglass pulmonary parenchymal disease in both lungs. Differential as described as above.3. Cirrhosis with an enhancing mass in the segment 8 of the liver suspicious for hepatocellular carcinoma. Signed: Kathe Melvin MDReport Verified Date/Time: 09/23/2017 15:33: 18 Reading Location: [facility] C013Y CT Body Reading Room [facility] [id number] 14:19: 00Surgical Pathology Report Case: [id number] Authorizing Provider: Narayan Reyes MD Collected : 09/20/2017 0908 Ordering Location: [facility] - Perioperative Received: 09/21/2017 0851 Services Pathologist: Lencho De La Garza MD Specimen: Polyp, Colon - Right/Ascending COLON, RIGHT/ASCENDING POLYP, COLONOSCOPY- POLYPOID COLONIC MUCOSA CONSISTENT WITH MUCOSAL TAG- NO ADENOMATOUS CHANGE OR MALIGNANCY IDENTIFIED Signing Pathologist Direct Phone Line: [phone] signed by Lencho De La Garza MD on 09/23/2017 at 2:19 [id number] and anemia; procedure is colonoscopy Polyp right/ascendingThe instrument, paperwork, container, and cassette all read [id number].Received in formalin labeled with the patient's name (Khadijah) and medical record number.Specimen A: Receivedin formalin labeled as "right/ascending polyp" is one tissue 3 x 3 x 1 mm, all in cassette A1. JF/ewThe following special studies were performed on this case and the interpretation is incorporated in the diagnostic report above:IDCV:[id number] 12:31:00 Test Item Value Reference Range Comments PROCALCITONIN (BEAKER) (test siwt=5193) 0.13 ng/mL <0.05 SEPSIS RISK (ng/mL)Low: 0.05-0.50Intermediate: 0.51-2.00High: & gt;=2.01POCT-GLUCOSE [id number] 11:53:00 Test Item Value Reference Range Comments POC-GLUCOSE METER (BEAKER) 227 mg/dL 70-110 TESTED AT [address] (test kemr=8345) [address] [facility] [address] POCT-GLUCOSE [id number] 08:09:00 Test Item Value Reference Range Comments POC-GLUCOSE METER (BEAKER) 167 mg/dL 70-110 TESTED AT [address] (test navt=5372) [facility] [address] [id number] 08:05:00 Test Item Value Reference Range Comments MAGNESIUM (BEAKER) (test oqfu=386) 1.5 mg/dL 1.5-3.0 COMPREHENSIVE METABOLIC [id number] 06:54:00 Test Item Value Reference Range Comments TOTAL PROTEIN (BEAKER) 6.0 gm/dL 6.0-8.5 (test afbl=833) ALBUMIN (BEAKER) (test 2.6 g/dL 3.5-5.0 qeyw=1808) ALKALINE PHOSPHATASE 96 U/L 30-115 (BEAKER) (test pbdk=860) BILIRUBIN TOTAL (BEAKER) 1.4 mg/dL 0.1-1.3 (test neqq=117) SODIUM (BEAKER) (test 138 meq/L 135-148 vaww=414) POTASSIUM (BEAKER) (test 3.0 meq/L 3.5-5.5 snvd=027) CHLORIDE (BEAKER) (test 101 meq/L 98-106 nmev=598) CO2 (BEAKER) (test 30 meq/L 20-31 hacb=128) BLOOD UREA NITROGEN 10 mg/dL 10-26 (BEAKER) (test pvsi=447) CREATININE (BEAKER) (test 0.61 mg/dL 0.50-1.20 ceyd=338) GLUCOSE RANDOM (BEAKER) 142 mg/dL 70-110 (test njkt=420) CALCIUM (BEAKER) (test 8.3 mg/dL 8.5-10.5 pome=580) AST (SGOT) (BEAKER) (test 52 U/L 5-40 whqv=334) ALT (SGPT) (BEAKER) (test 27 U/L 6-50 etvi=831) EGFR (BEAKER) (test 129 mL/min/1.73 sq ESTIMATED GFR IS NOT saqg=1979) m ACCURATE CREATININE CLEARANCE IN PREDICTING GLOMERULAR FILTRATION RATE. ESTIMATED GFR IS NOT APPLICABLE FOR DIALYSIS PATIENTS. CBC W/PLT COUNT & AUTO [id number] 06:24:00 Test Item Value Reference Range Comments WHITE BLOOD CELL COUNT (BEAKER) (test wicn=456) 6.4 K/ L 4.0-10.0 RED BLOOD CELL COUNT (BEAKER) (test piaf=994) 2.97 M/ L 4.20-5.80 HEMOGLOBIN (BEAKER) (test oeiv=162) 9.0 GM/DL 13.0-16.8 HEMATOCRIT (BEAKER) (test pxef=486) 28.1 % 40.0-50.0 MEAN CORPUSCULAR VOLUME (BEAKER) (test cbis=081) 94.6 fL 82.0-98.0 MEAN CORPUSCULAR HEMOGLOBIN (BEAKER) (test 30.3 pg 27.0-33.0 abwi=387) MEAN CORPUSCULAR HEMOGLOBIN CONC (BEAKER) (test 32.0 GM/DL 32.0-36.0 sssc=994) RED CELL DISTRIBUTION WIDTH (BEAKER) (test 17.2 % 12.0-15.0 blja=714) PLATELET COUNT (BEAKER) (test tcrr=641) 135 K/CU MM 150-430 MEAN PLATELET VOLUME (BEAKER) (test ioyi=530) 8.1 fL 6.5-10.5 NUCLEATED RED BLOOD CELLS (BEAKER) (test 0 /100 WBC 0-0 hwck=657) NEUTROPHILS RELATIVE PERCENT (BEAKER) (test 53 % xtvw=678) LYMPHOCYTES RELATIVE PERCENT (BEAKER) (test 23 % hzcy=395) MONOCYTES RELATIVE PERCENT (BEAKER) (test 17 % liii=805) EOSINOPHILS RELATIVE PERCENT (BEAKER) (test 6 % dazq=850) BASOPHILS RELATIVE PERCENT (BEAKER) (test 1 % lpvd=289) NEUTROPHILS ABSOLUTE COUNT (BEAKER) (test 3.40 K/ L 1.80-8.00 ryxv=296) LYMPHOCYTES ABSOLUTE COUNT (BEAKER) (test 1.50 K/ L 1.48-4.50 xdgd=367) MONOCYTES ABSOLUTE COUNT (BEAKER) (test 1.10 K/ L 0.00-1.30 vlxh=405) EOSINOPHILS ABSOLUTE COUNT (BEAKER) (test 0.40 K/ L 0.00-0.50 kooc=929) BASOPHILS ABSOLUTE COUNT (BEAKER) (test 0.00 K/ L 0.00-0.20 fblv=778) POCT-GLUCOSE [id number] 00:35:00 Test Item Value Reference Range Comments POC-GLUCOSE METER (BEAKER) 171 mg/dL 70-110 TESTED AT [facility] [address] [address] (test savj=0651) [facility] [address] [id number] 18:12:00Medical Cytology Report Case: [id number] Authorizing Provider: Tamanna Herrera MD Collected: 09/18/20171734 Ordering Location: [address] MEDICAL SURGICAL Received: 09/21/2017 1009 Pathologist: Miracle Kaiser MD Specimen: Pleural, Right RIGHT PLEURAL FLUID, CYTOLOGIC PREPARATION:NO MALIGNANT CELLS IDENTIFIED. Signing Pathologist Direct Phone Line: [phone] signed by Miracle Kaiser MD on 2017 at 6:12 [id number] bleedRight pleural cavityCollected: 09/18/2017 1735Received: 09/21/2017 [id number] ml yellow fluid received fresh; 4 cytospinsAll cytologic preparations have been microscopically examined. The pertinent microscopic examination findings have been incorporated into the diagnosis rendered above.SatisfactorySt. [facility], [facility] of [facility]ology, [address] [place] [address], Ly. [facility], Department of Pathology, [address] [place] [address], Ur. [facility] Department of Pathology, [address] [place] [address], Tel TISSUE [id number] 16:29:00Surgical Pathology Report Case: [id number] Authorizing Provider: Narayan Reyes MD Collected: 09/19/2017 1138 Ordering Location: [address] MEDICAL SURGICAL Received: 2017 0828 Pathologist: Lencho De La Garza MD Specimen: Duodenum, bx DUODENUM, BIOPSY: - SUPERFICIAL FRAGMENTS OF UNREMARKABLE DUODENAL MUCOSA - NO ACTIVE INFLAMMATION, GRANULOMAS, FOAMY HISTIOCYTES, PARASITES, OR INCREASED INTRAEPITHELIAL LYMPHOCYTES IDENTIFIED - NO ADENOMATOUS CHANGE, DYSPLASIA OR MALIGNANCY IDENTIFIED Signing Pathologist Direct Phone Line: [phone] signed by Lencho De La Garza MD on 09/22/2017 at 4:29 [id number]; procedure upper endoscopy Duodenum The instrument, paperwork, container, and cassette all read [id number].Received in formalin labeled with the patient's name (Khadijah) and medical record number.Specimen A: Received in formalin labeled as "duodenum" is one tissue 3 x 3 x 1 mm with a few flecks of debris, all in cassette A1. JF/ewPOCT-GLUCOSE [id number] 16:14:00 Test Item Value Reference Range Comments POC-GLUCOSE METER (BEAKER) 221 mg/dL 70-110 TESTED AT [facility] [address] (test gbiz=8665) [facility] [address] [id number] 14:45:00 Test Item Value Reference Range Comments FERRITIN (BEAKER) (test girb=884) 68 ng/mL 22-322 RAD, CHEST, 1 VIEW, NON [id number] 14:35:00Reason for exam:->pulmonary edemaShould this be performed at the bedside?->YesFINAL REPORT Chest, 1 view, 09/22/2017 2:33 PM. History: Pulmonary edema. Comparison : 09/21/2017. Discussion: The cardiac silhouette is within normal limits for a portable exam. Diffuse bilateral interstitial/alveolar opacities are again noted , right greater than left, but essentially unchanged compared to prior exam. There is no evidence of significant pleural effusion. The soft tissues and osseous structures are intact. IMPRESSION: No significant interval change in bilateral pulmonary opacities. Signed: Travis Gomez Verified Date/ Time: 09/22/2017 14:35:18 Reading Location: [facility] Diagnostic Imaging Reading Room - [facility]. Electronically signed by: TRAVIS GOMEZ M.D. on 02:35 PMIRON, TIBC, % SAT. (WITHOUT FERRITIN)2017-09-22 14:30:00 Test Item Value Reference Range Comments IRON (BEAKER) (test hima=447) 34 ug/dL 35-175 TOTAL IRON BINDING CAPACITY (BEAKER) (test 269 ug/dL 250-550 gwjq=892) IRON % SATURATION (2) (BEAKER) (test ocxw=1501) 13 % 20-55 POCT-GLUCOSE [id number] 12:14:00 Test Item Value Reference Range Comments POC-GLUCOSE METER (BEAKER) 233 mg/dL 70-110 TESTED AT [address] (test qnxa=0952) [facility] [address] U/S, ABDOMINAL, [id number] 11:12:00Reason for exam:->ascitesFINAL REPORT Technique: Limited abdominal ultrasound dated 09/22. HISTORY: Ascites check. COMPARISON: None IMPRESSION:Small amount of abdominal ascites is seen in all four quadrants. Nodular liver contour is compatible with cirrhosis. Signed: Jada Maddoxeport Verified Date/ Time: 09/22/2017 11:12:47 Reading Location: [facility] Radiology Reading Room [id number] 11:06:00 Test Item Value Reference Range Comments AMMONIA (BEAKER) (test nnay=698) 66 mol/L 12-72 BLOOD GAS, [id number] 17:43:00 Test Item Value Reference Range Comments PH ARTERIAL (BEAKER) (test wmmw=839) 7.52 7.35-7.45 PCO2 ARTERIAL (BEAKER) (test lzfl=540) 41 mmHg 35-45 PO2 ARTERIAL (BEAKER) (test nzsj=564) 60 mmHg 80-90 O2 SATURATION ARTERIAL (BEAKER) (test scab=379) 93.2 % 96.0-97.0 HCO3 ARTERIAL (BEAKER) (test snyl=447) 33 mmol/L 21-29 BASE EXCESS ARTERIAL (BEAKER) (test ifvv=949) 9.1 mmol/L -2.0-3.0 PATIENT TEMPERATURE (BEAKER) (test yftw=6545) 37.0 C FIO2 (BEAKER) (test jnnr=3628) 45.0 % U/S, [id number] 16:39:00Reason for exam:->THORACENTESIS RIGHT SIDEFINAL REPORT EXAM: Limited ultrasound of right chest CLINICAL HISTORY: Pleural effusion FINDINGS: Limited evaluation of the right chest demonstrates trace free fluid in the rightpleural space. Thoracentesis was not performed. Signed: Cris Malhotrasaint francis hospital & [facility] Verified Date/Time: 09/21/2017 16:39 :54 Reading Location: [facility] Radiology Reading Room POCT-GLUCOSE [id number] 16:35: 00 Test Item Value Reference Range Comments POC-GLUCOSE METER (BEAKER) 138 mg/dL 70-110 TESTED AT [facility] [address] (test fmdw=7420) [address] [facility] [address] POCT-GLUCOSE [id number] 11:59:00 Test Item Value Reference Range Comments POC-GLUCOSE METER (BEAKER) 261 mg/dL 70-110 TESTED AT [facility] [address] (test ggqc=2315) [address] [facility] [address] BODY FLUID CELL COUNT WITH [id number] 08:40:00 Test Item Value Reference Range Comments APPEARANCE FLUID (BEAKER) (test Slightly Hazy Clear upem=866) COLOR FLUID (BEAKER) (test Yellow Colorless, Straw zuct=516) RBC FLUID (BEAKER) (test 320 /uL <=1 zgaq=854) ADJUSTED WBC FLUID (BEAKER) 355 /cu mm <=5 (test bfgw=2103) LINING CELLS (BEAKER) (test 53 /cu mm <=1 hkma=6677) NEUTROPHILS FLUID (BEAKER) 26 % (test pbec=5324) LYMPHS FLUID (BEAKER) (test 43 % edkj=625) MONO/MACROPHAGE FLUID (BEAKER) 31 % (test ksrr=121) EOSINOPHILS FLUID (BEAKER) 0 % (test urgj=865) BASO FLUID (BEAKER) (test 0 % rdxj=976) INTERPRETATION-210 (BEAKER) No malignant cells (test exyu=7074) identified. MJWG-MWRHNPHYVBL-228 (BEAKER) Miracle Kaiser (test jpej=1988) CONTAINER BODY FLUID (BEAKER) EDTA Tube (test geym=7018) BODY FLUID CULTURE + GRAM [id number] 08:19:00 Test Item Value Reference Range Comments CULTURE (BEAKER) (test ouwi=2596) No growth GRAM STAIN RESULT (BEAKER) (test 3+ White blood cells seen pbhe=8927) GRAM STAIN RESULT (BEAKER) (test No organisms seen haib=[id number]) POCT-GLUCOSE [id number] 07:38:00 Test Item Value Reference Range Comments POC-GLUCOSE METER (BEAKER) 157 mg/dL 70-110 TESTED AT [facility] [address] (test qlbi=8063) [facility] [address] BASIC METABOLIC [id number] 06:50:00 Test Item Value Reference Range Comments SODIUM (BEAKER) (test 140 meq/L 135-148 pnvd=796) POTASSIUM (BEAKER) (test 3.2 meq/L 3.5-5.5 qtvv=347) CHLORIDE (BEAKER) (test 102 meq/L 98-106 nsbb=441) CO2 (BEAKER) (test 28 meq/L 20-31 wqjo=180) BLOOD UREA NITROGEN 11 mg/dL 10- (BEAKER) (test qirj=035) CREATININE (BEAKER) (test 0.61 mg/dL 0.50-1.20 utdw=482) GLUCOSE RANDOM (BEAKER) 139 mg/dL 70-110 (test nrih=691) CALCIUM (BEAKER) (test 7.8 mg/dL 8.5-10.5 qzpl=195) EGFR (BEAKER) (test 129 mL/min/1.73 sq m ESTIMATED GFR IS NOT yuex=6282) ACCURATE CREATININE CLEARANCE IN PREDICTING GLOMERULAR FILTRATION RATE. ESTIMATED GFR IS NOT APPLICABLE FOR DIALYSIS PATIENTS. HEPATIC FUNCTION [id number] 06:50:00 Test Item Value Reference Range Comments TOTAL PROTEIN (BEAKER) (test nzfv=900) 5.6 gm/dL 6.0-8.5 ALBUMIN (BEAKER) (test jcsr=3668) 2.4 g/dL 3.5-5.0 BILIRUBIN TOTAL (BEAKER) (test btcc=699) 1.4 mg/dL 0.1-1.3 BILIRUBIN DIRECT (BEAKER) (test llyy=550) 0.7 mg/dL 0.0-0.5 ALKALINE PHOSPHATASE (BEAKER) (test fobx=810) 77 U/L 30-115 AST (SGOT) (BEAKER) (test ybdf=014) 54 U/L 5-40 ALT (SGPT) (BEAKER) (test xaec=536) 24 U/L 6-50 CBC W/PLT COUNT & AUTO [id number] 06:37:00 Test Item Value Reference Range Comments WHITE BLOOD CELL COUNT (BEAKER) (test encx=604) 6.5 K/ L 4.0-10.0 RED BLOOD CELL COUNT (BEAKER) (test pgca=501) 2.69 M/ L 4.20-5.80 HEMOGLOBIN (BEAKER) (test phcz=183) 8.2 GM/DL 13.0-16.8 HEMATOCRIT (BEAKER) (test qkid=557) 25.6 % 40.0-50.0 MEAN CORPUSCULAR VOLUME (BEAKER) (test gnws=212) 95.4 fL 82.0-98.0 MEAN CORPUSCULAR HEMOGLOBIN (BEAKER) (test 30.6 pg 27.0-33.0 lwdv=997) MEAN CORPUSCULAR HEMOGLOBIN CONC (BEAKER) (test 32.1 GM/DL 32.0-36.0 mzui=415) RED CELL DISTRIBUTION WIDTH (BEAKER) (test 16.2 % 12.0-15.0 nzxg=852) PLATELET COUNT (BEAKER) (test aqvx=404) 124 K/CU MM 150-430 MEAN PLATELET VOLUME (BEAKER) (test tixy=476) 8.2 fL 6.5-10.5 NUCLEATED RED BLOOD CELLS (BEAKER) (test 0 /100 WBC 0-0 foiv=778) NEUTROPHILS RELATIVE PERCENT (BEAKER) (test 61 % ccme=478) LYMPHOCYTES RELATIVE PERCENT (BEAKER) (test 21 % ekcp=833) MONOCYTES RELATIVE PERCENT (BEAKER) (test 14 % oxxu=359) EOSINOPHILS RELATIVE PERCENT (BEAKER) (test 3 % zizo=156) BASOPHILS RELATIVE PERCENT (BEAKER) (test 0 % yggq=134) NEUTROPHILS ABSOLUTE COUNT (BEAKER) (test 4.00 K/ L 1.80-8.00 egao=488) LYMPHOCYTES ABSOLUTE COUNT (BEAKER) (test 1.40 K/ L 1.48-4.50 tygp=124) MONOCYTES ABSOLUTE COUNT (BEAKER) (test 0.90 K/ L 0.00-1.30 gswf=843) EOSINOPHILS ABSOLUTE COUNT (BEAKER) (test 0.20 K/ L 0.00-0.50 zjhu=364) BASOPHILS ABSOLUTE COUNT (BEAKER) (test 0.00 K/ L 0.00-0.20 qqkf=503) HEMOGLOBIN AND [id number] 06:36:00 Test Item Value Reference Range Comments HEMOGLOBIN (BEAKER) (test ldcl=818) 8.2 GM/DL 13.0-16.8 HEMATOCRIT (BEAKER) (test yknx=005) 25.6 % 40.0-50.0 RAD, CHEST, 1 VIEW, NON [id number] 03:55:00Reason for exam:->sob, h/o pleural effShould this be performed at the bedside?->YesFINAL REPORT RAD, CHEST, 1 VIEW, NON DEPT INDICATION: sob, h/o pleural eff COMPARISON: September 19, 2017 FINDINGS: Portable frontal view of the chest. IMPRESSION: Increasing interstitial and alveolar disease compared to the prior examination. Trace left effusion. No pneumothorax has developed. Mediastinal contours are grossly stable with cardiac size within normal limits. Signed: JR Tenorio Robert MDReport Verified Date/Time: 09/21/2017 03:55:11 Reading Location: [facility] B1 C013Y CT Body Reading Room HEPATITIS PANEL, [id number] 18:08:00 Test Item Value Reference Range Comments HEPATITIS A IGM ANTIBODY (BEAKER) (test Nonreactive Nonreactive qaws=178) HEPATITIS B CORE IGM ANTIBODY (BEAKER) (test Nonreactive Nonreactive yhws=678) HEPATITIS C ANTIBODY (BEAKER) (test gwdo=958) Nonreactive Nonreactive HEPATITIS B SURFACE ANTIGEN (2) (BEAKER) (test Nonreactive Nonreactive ohvj=9973) HEMOGLOBIN AND [id number] 13:04:00 Test Item Value Reference Range Comments HEMOGLOBIN (BEAKER) (test ilwm=555) 8.5 GM/DL 13.0-16.8 HEMATOCRIT (BEAKER) (test mmpz=207) 27.6 % 40.0-50.0 POCT-GLUCOSE [id number] 08:36:00 Test Item Value Reference Range Comments POC-GLUCOSE METER (BEAKER) 173 mg/dL 70-110 TESTED AT [facility] [address] (test wihw=2285) [facility] [address] BASIC METABOLIC [id number] 06:05:00 Test Item Value Reference Range Comments SODIUM (BEAKER) (test 140 meq/L 135-148 vbpi=735) POTASSIUM (BEAKER) (test 3.3 meq/L 3.5-5.5 kpcu=295) CHLORIDE (BEAKER) (test 102 meq/L 98-106 wqfk=723) CO2 (BEAKER) (test 28 meq/L 20-31 pisn=789) BLOOD UREA NITROGEN 20 mg/dL 10-26 (BEAKER) (test szjd=861) CREATININE (BEAKER) (test 0.74 mg/dL 0.50-1.20 qcvz=326) GLUCOSE RANDOM (BEAKER) 177 mg/dL 70-110 (test cfbi=267) CALCIUM (BEAKER) (test 8.0 mg/dL 8.5-10.5 ycio=997) EGFR (BEAKER) (test 103 mL/min/1.73 sq m ESTIMATED GFR IS NOT qqgd=4964) ACCURATE CREATININE CLEARANCE IN PREDICTING GLOMERULAR FILTRATION RATE. ESTIMATED GFR IS NOT APPLICABLE FOR DIALYSIS PATIENTS. HEPATIC FUNCTION [id number] 06:05:00 Test Item Value Reference Range Comments TOTAL PROTEIN (BEAKER) (test mabw=589) 6.0 gm/dL 6.0-8.5 ALBUMIN (BEAKER) (test jekc=2485) 2.6 g/dL 3.5-5.0 BILIRUBIN TOTAL (BEAKER) (test jyuy=713) 1.6 mg/dL 0.1-1.3 BILIRUBIN DIRECT (BEAKER) (test ukug=386) 0.8 mg/dL 0.0-0.5 ALKALINE PHOSPHATASE (BEAKER) (test qgee=772) 82 U/L 30-115 AST (SGOT) (BEAKER) (test nmev=677) 66 U/L 5-40 ALT (SGPT) (BEAKER) (test mzeg=530) 28 U/L 6-50 CBC W/PLT COUNT & AUTO [id number] 05:38:00 Test Item Value Reference Range Comments WHITE BLOOD CELL COUNT (BEAKER) (test nvie=072) 12.1 K/ L 4.0-10.0 RED BLOOD CELL COUNT (BEAKER) (test kwgz=586) 2.56 M/ L 4.20-5.80 HEMOGLOBIN (BEAKER) (test sygp=290) 8.0 GM/DL 13.0-16.8 HEMATOCRIT (BEAKER) (test pigj=790) 24.6 % 40.0-50.0 MEAN CORPUSCULAR VOLUME (BEAKER) (test xpre=636) 96.0 fL 82.0-98.0 MEAN CORPUSCULAR HEMOGLOBIN (BEAKER) (test 31.2 pg 27.0-33.0 utyy=114) MEAN CORPUSCULAR HEMOGLOBIN CONC (BEAKER) (test 32.5 GM/DL 32.0-36.0 mgvz=956) RED CELL DISTRIBUTION WIDTH (BEAKER) (test 16.3 % 12.0-15.0 ovpk=729) PLATELET COUNT (BEAKER) (test eocx=813) 148 K/CU MM 150-430 MEAN PLATELET VOLUME (BEAKER) (test krqd=558) 8.2 fL 6.5-10.5 NUCLEATED RED BLOOD CELLS (BEAKER) (test 0 /100 WBC 0-0 yfed=260) NEUTROPHILS RELATIVE PERCENT (BEAKER) (test 76 % ebad=762) LYMPHOCYTES RELATIVE PERCENT (BEAKER) (test 10 % pwpe=022) MONOCYTES RELATIVE PERCENT (BEAKER) (test 13 % lxda=551) EOSINOPHILS RELATIVE PERCENT (BEAKER) (test 0 % zyyc=359) BASOPHILS RELATIVE PERCENT (BEAKER) (test 0 % vwds=555) NEUTROPHILS ABSOLUTE COUNT (BEAKER) (test 9.20 K/ L 1.80-8.00 fntf=891) LYMPHOCYTES ABSOLUTE COUNT (BEAKER) (test 1.20 K/ L 1.48-4.50 sbap=796) MONOCYTES ABSOLUTE COUNT (BEAKER) (test 1.60 K/ L 0.00-1.30 lsln=104) EOSINOPHILS ABSOLUTE COUNT (BEAKER) (test 0.00 K/ L 0.00-0.50 rmnb=042) BASOPHILS ABSOLUTE COUNT (BEAKER) (test 0.00 K/ L 0.00-0.20 qjgf=628) POCT-GLUCOSE [id number] 15:55:00 Test Item Value Reference Range Comments POC-GLUCOSE METER (BEAKER) 277 mg/dL 70-110 TESTED AT [address] (test wklu=7847) [facility] [address] [id number] 15:43:00 Test Item Value Reference Range Comments MAGNESIUM (BEAKER) (test eyxj=727) 1.9 mg/dL 1.5-3.0 BASIC METABOLIC [id number] 15:43:00 Test Item Value Reference Range Comments SODIUM (BEAKER) (test 136 meq/L 135-148 ckuu=216) POTASSIUM (BEAKER) (test 3.8 meq/L 3.5-5.5 uwha=832) CHLORIDE (BEAKER) (test 101 meq/L 98-106 ufdq=913) CO2 (BEAKER) (test 24 meq/L 20-31 xhet=952) BLOOD UREA NITROGEN 23 mg/dL 10-26 (BEAKER) (test dgwy=372) CREATININE (BEAKER) (test 0.88 mg/dL 0.50-1.20 vttf=809) GLUCOSE RANDOM (BEAKER) 284 mg/dL 70-110 (test phye=399) CALCIUM (BEAKER) (test 8.1 mg/dL 8.5-10.5 xchr=313) EGFR (BEAKER) (test 84 mL/min/1.73 sq m ESTIMATED GFR IS NOT pvgp=3833) ACCURATE CREATININE CLEARANCE IN PREDICTING GLOMERULAR FILTRATION RATE. ESTIMATED GFR IS NOT APPLICABLE FOR DIALYSIS PATIENTS. HEMOGLOBIN AND [id number] 15:37:00 Test Item Value Reference Range Comments HEMOGLOBIN (JULIENNE) (test tipo=401) 8.2 GM/DL 13.0-16.8 HEMATOCRIT (JULIENNE) (test kxrq=963) 25.9 % 40.0-50.0 POCT-GLUCOSE [id number] 10:38:00 Test Item Value Reference Range Comments POC-GLUCOSE METER (JULIENNE) 224 mg/dL 70-110 TESTED AT [facility] [address] (test lxza=8062) [facility] [address] HEMOGLOBIN [id number] 09:10:00 Test Item Value Reference Range Comments HEMOGLOBIN A1C (JULIENNE) (test ohuw=834) 5.5 % 4.3-6.1 TROPONIN [id number] 06:50:00 Test Item Value Reference Range Comments TROPONIN I (JULIENNE) (test bgix=311) 0.49 ng/mL 0.00-0.15 Troponin I (TnI) levels must be interpreted in the context of the presenting symptoms and the clinical findings. Elevated TnI levels indicate myocardial damage, but are not specific for ischemic heart disease. Elevated TnI levels are seen in patients with other cardiac conditions (including myocarditis and congestive heart failure), and slight TnI elevations occur in patients with other conditions, including sepsis, renal failure, acidosis, acute neurological disease, and persistent tachyarrhythmia.RAD, CHEST, 1 VIEW, NON [id number] 06:49:00Reason for exam:->dyspneaShould this be performed at the bedside?-&gt ;YesFINAL REPORT RAD, CHEST, 1 VIEW, NON DEPT INDICATION : dyspnea COMPARISON: Prior day's exam FINDINGS: Portable frontal view of the chest. IMPRESSION: Support Lines: None Lungs and pleura: Worsening interstitial and focal airspace disease, greatest in the right upper lobe. Appearance favors developing edema. Atypical infection should be excluded clinically. No pneumothorax.Heart and mediastinum: Stable cardiac size. No hilar adenopathy.Additional findings: None. Signed: JR Tenorio Robert [facility] Verified Date/Time: 09/19/2017 06:49:48 Reading Location: [facility] B1 C013Y CT Body Reading [facility] [id number] 06:40:00 Test Item Value Reference Range Comments TOTAL PROTEIN (BEAKER) (test nbbx=448) 6.6 gm/dL 6.0-8.5 ALBUMIN (BEAKER) (test ylhq=9656) 2.9 g/dL 3.5-5.0 BILIRUBIN TOTAL (BEAKER) (test ppkm=298) 1.8 mg/dL 0.1-1.3 BILIRUBIN DIRECT (BEAKER) (test kbmy=462) 1.0 mg/dL 0.0-0.5 ALKALINE PHOSPHATASE (BEAKER) (test jgea=090) 94 U/L 30-115 AST (SGOT) (BEAKER) (test vgni=499) 70 U/L 5-40 ALT (SGPT) (BEAKER) (test fojm=897) 30 U/L 6-50 LIPID [id number] 06:39:00 Test Item Value Reference Range Comments TRIGLYCERIDES (BEAKER) (test ggfe=588) 91 mg/dL CHOLESTEROL (BEAKER) (test cenr=890) 152 mg/dL HDL CHOLESTEROL (BEAKER) (test hjbk=658) 16 mg/dL LDL CHOLESTEROL CALCULATED (BEAKER) (test 118 mg/dL ijjs=747) Triglyceride Reference Range: Low Risk <150 Borderline 150- 199 High Risk 200-499 Very High Risk >=500Cholesterol Reference Range: Low Risk <200 Borderline 200-239 High Risk > 240HDL Cholesterol Reference Range: Low Risk >=60 High Risk <40LDL Cholesterol Reference Range: Optimal <100 Near Optimal 100-129 Borderline 130-159 High 160-189 Very High >=190BASIC METABOLIC [id number] 06:39:00 Test Item Value Reference Range Comments SODIUM (BEAKER) (test 139 meq/L 135-148 zaln=841) POTASSIUM (BEAKER) (test 4.1 meq/L 3.5-5.5 qcmf=451) CHLORIDE (BEAKER) (test 104 meq/L 98-106 zsep=177) CO2 (BEAKER) (test 24 meq/L 20-31 gask=976) BLOOD UREA NITROGEN 21 mg/dL 10-26 (BEAKER) (test ohug=393) CREATININE (BEAKER) (test 0.77 mg/dL 0.50-1.20 uaol=333) GLUCOSE RANDOM (BEAKER) 206 mg/dL 70-110 (test yxli=434) CALCIUM (BEAKER) (test 8.2 mg/dL 8.5-10.5 pgcm=688) EGFR (BEAKER) (test 98 mL/min/1.73 sq m ESTIMATED GFR IS NOT vsap=9207) ACCURATE CREATININE CLEARANCE IN PREDICTING GLOMERULAR FILTRATION RATE. ESTIMATED GFR IS NOT APPLICABLE FOR DIALYSIS PATIENTS. CBC W/PLT COUNT & AUTO [id number] 06:33:00 Test Item Value Reference Range Comments WHITE BLOOD CELL COUNT 12.3 K/ L 4.0-10.0 (BEAKER) (test aekn=637) RED BLOOD CELL COUNT (BEAKER) 2.93 M/ L 4.20-5.80 (test ehbh=218) HEMOGLOBIN (BEAKER) (test 8.6 GM/DL 13.0-16.8 ytbw=644) HEMATOCRIT (BEAKER) (test 28.6 % 40.0-50.0 ynzk=674) MEAN CORPUSCULAR VOLUME 97.6 fL 82.0-98.0 (BEAKER) (test pmmi=044) MEAN CORPUSCULAR HEMOGLOBIN 29.4 pg 27.0-33.0 (BEAKER) (test miyg=027) MEAN CORPUSCULAR HEMOGLOBIN 30.1 GM/DL 32.0-36.0 CONC (BEAKER) (test fsiw=611) RED CELL DISTRIBUTION WIDTH 16.0 % 12.0-15.0 (BEAKER) (test vmst=335) PLATELET COUNT (BEAKER) (test 157 K/CU MM 150-430 Discordant result compared ktpc=166) to previous result. Clinical correlation required. MEAN PLATELET VOLUME (BEAKER) 8.8 fL 6.5-10.5 (test gosd=142) NUCLEATED RED BLOOD CELLS 0 /100 WBC 0-0 (BEAKER) (test evdh=168) NEUTROPHILS RELATIVE PERCENT 84 % (BEAKER) (test dfre=419) LYMPHOCYTES RELATIVE PERCENT 7 % (BEAKER) (test mrmz=487) MONOCYTES RELATIVE PERCENT 9 % (BEAKER) (test cgvm=898) EOSINOPHILS RELATIVE PERCENT 0 % (BEAKER) (test pljd=906) BASOPHILS RELATIVE PERCENT 0 % (BEAKER) (test yzsa=667) NEUTROPHILS ABSOLUTE COUNT 10.30 K/ L 1.80-8.00 (BEAKER) (test aiqf=242) LYMPHOCYTES ABSOLUTE COUNT 0.80 K/ L 1.48-4.50 (BEAKER) (test lsok=227) MONOCYTES ABSOLUTE COUNT 1.10 K/ L 0.00-1.30 (BEAKER) (test ksze=284) EOSINOPHILS ABSOLUTE COUNT 0.00 K/ L 0.00-0.50 (BEAKER) (test esem=611) BASOPHILS ABSOLUTE COUNT 0.00 K/ L 0.00-0.20 (BEAKER) (test okwi=417) PROTHROMBIN TIME/[id number] 06:30:00 Test Item Value Reference Range Comments PROTIME (BEAKER) (test eceo=215) 21.1 seconds 11.8-14.4 INR (BEAKER) (test iifn=877) 1.8 1.2-1.5 RECOMMENDED COUMADIN/WARFARIN INR THERAPY RANGESSTANDARD DOSE: 2.0 - 3.0 Includes: PROPHYLAXIS forvenous thrombosis, systemic embolization; TREATMENT for venous thrombosis and/or pulmonary embolus.HIGH RISK: Target INR is 2.5-3.5 for patients with mechanical heart valves.B-TYPE NATRIURETIC FACTOR (BNP)2017-08 06:06:00 Test Item Value Reference Range Comments B-TYPE NATRIURETIC PEPTIDE (BEAKER) (test 726 pg/mL 0-100 nucl=478) TROPONIN [id number] 02:21:00 Test Item Value Reference Range Comments TROPONIN I (BEAKER) (test uwgf=336) 0.61 ng/mL 0.00-0.15 Troponin I (TnI) levels must be interpreted in the context of the presenting symptoms and the clinical findings. Elevated TnI levels indicate myocardial damage, but are not specific for ischemic heart disease. Elevated TnI levels are seen in patients with other cardiac conditions (including myocarditis and congestive heart failure), and slight TnI elevations occur in patients with other conditions, including sepsis, renal failure, acidosis, acute neurological disease, and persistent tachyarrhythmia.HEMOGLOBIN AND [id number] 01: 53:00 Test Item Value Reference Range Comments HEMOGLOBIN (BEAKER) (test wlpy=400) 8.2 GM/DL 13.0-16.8 HEMATOCRIT (BEAKER) (test uztr=060) 25.7 % 40.0-50.0 TYPE AND SCREEN, [id number] 19:59:00 Test Item Value Reference Range Comments ABO/RH AUTOMATED (BEAKER) (test xrst=9460) O POSITIVE AB SCREEN (BEAKER) (test casv=761) NEGATIVE RAD, CHEST, 1 VIEW, NON [id number] 19:20:00PT IN RAD ROOM 1Reason for exam:- >POsT THORAShould this be performed at the bedside?->NoFINAL REPORT Chest, 1 view. History: Status post right-sided thoracentesis. Comparison: None available. Impression: No prior examination available for comparison. There is no evidence for pneumothorax status post right-sided thoracentesis. No large residual pleural effusion is remaining. Trace bilateral pleural effusions may be present. There is increased interstitial markings present bilaterally which is nonspecific but can be seen in setting of edema. There is no evidence for large focal consolidation. The cardiomediastinal silhouette is within normal limits. No acute osseous abnormalities are identified. Signed: Gerardo Catalan MDReport Verified Date/Time : 09/18/2017 19:20:43 Reading Location: [address] Consult Reading Room BLOOD GAS, [id number] 18:57:00 Test Item Value Reference Range Comments PH ARTERIAL (BEAKER) (test uqsp=312) 7.45 7.35-7.45 PCO2 ARTERIAL (BEAKER) (test uhoa=059) 38 mmHg 35-45 PO2 ARTERIAL (BEAKER) (test kuhl=640) 84 mmHg 80-90 O2 SATURATION ARTERIAL (BEAKER) (test ykws=005) 96.8 % 96.0-97.0 HCO3 ARTERIAL (BEAKER) (test hpnt=009) 26 mmol/L 21-29 BASE EXCESS ARTERIAL (BEAKER) (test gjtj=091) 2.0 mmol/L -2.0-3.0 PATIENT TEMPERATURE (BEAKER) (test tdab=1575) 37.0 C FIO2 (BEAKER) (test zuns=9428) 100.0 % U/S, [id number] 18:46:00Laterality?->RightReason for exam:-> Right effusioinFINAL REPORT Exam: Ultrasound guided thoracentesis Clinical History: Ascites Consent: Benefits and risks were explained to the patient who gave consent to the procedure. Complication: None immediate Procedure: The patient was placed in uprightposition. The right posterior chest was prepped and draped in usual sterile fashion. 1% lidocaine was used as local anesthetic. Under ultrasound guidance, a thoracentesis catheter was inserted into the pleural cavity. Approximately 1300 cc of clear yellow fluid was aspirated. The catheter was removed. The specimen was sent to the laboratory for further analysis. The patient tolerated the procedure well without any adverse reaction.A STAT chest x-ray was ordered. The patient left the department in stable condition. Impression: Ultrasound guided right thoracentesis. Signed: Cris Malhotra [facility]epcross[facility] Verified Date/Time: 201718:46:53 Reading Location: [facility] Radiology Reading Room LACTATE DEHYDROGENASE (LDH ), BODY [id number] 18:31:00 Test Item Value Reference Range Comments LACTATE DEHYDROGENASE FLUID (BEAKER) 104 U/L Light's criteria identifies (test svfq=692) effusions if one or more are pre Absence of reference range indicates that normals have not been defined.Assay performance has not been validated for this type of specimen.GLUCOSE, BODY [id number] 18:31:00 Test Item Value Reference Range Comments GLUCOSE, BODY FLUID (BEAKER) (test oget=9796) 234 mg/dL 70-110 Absence of reference range indicates that normals have not been defined.Assay performance has not been validated for this type of specimen.ALBUMIN, BODY [id number] 18:31:00 Test Item Value Reference Range Comments ALBUMIN FLUID (BEAKER) (test blry=599) 0.7 gm/dL Reference Range: No Normals Assay performance has not been validated for this type of specimen.PROTEIN, BODY [id number] 18:31:00 Test Item Value Reference Range Comments PROTEIN FLUID (BEAKER) (test 1.0 g/dL Light's criteria identifies obgi=125) effusions if one or more are pre Absence of reference range indicates that normals have not been defined.Assay performance has not been validated for this type of specimen.POCT-GLUCOSE [id number] 16:46:00 Test Item Value Reference Range Comments POC-GLUCOSE METER (BEAKER) 250 mg/dL 70-110 TESTED AT [facility] [address] (test trpc=2800) [facility] [address] [id number] 16:42:00 Test Item Value Reference Range Comments PROCALCITONIN (BEAKER) (test ilmd=1215) 0.29 ng/mL <0.05 SEPSIS RISK (ng/mL)Low: 0.05-0.50Intermediate: 0.51-2.00High: & gt;=2.01LACTATE DEHYDROGENASE (LDH)2017-09-18 15:36:00 Test Item Value Reference Range Comments LACTATE DEHYDROGENASE (BEAKER) 344 U/L 125-225 Specimen slightly hemolyzed (test wkpb=265) TROPONIN [id number] 15:31:00 Test Item Value Reference Range Comments TROPONIN I (BEAKER) (test crae=857) 0.43 ng/mL 0.00-0.15 Troponin I (TnI) levels must be interpreted in the context of the presenting symptoms and the clinical findings. Elevated TnI levels indicate myocardial damage, but are not specific for ischemic heart disease. Elevated TnI levels are seen in patients with other cardiac conditions (including myocarditis and congestive heart failure), and slight TnI elevations occur in patients with other conditions, including sepsis, renal failure, acidosis, acute neurological disease, and persistent tachyarrhythmia.CREATINE KINASE (CK), TOTAL AND [id number] 15:28:00 Test Item Value Reference Range Comments CREATINE KINASE TOTAL (BEAKER) (test elne=921) 153 U/L 30-300 CREATINE KINASE-MB (BEAKER) (test sann=861) 6.4 ng/mL 0.0-4.9 CREATINE KINASE-MB INDEX (BEAKER) (test ecjp=978) 4.2 % CK-MB Reference Range:<5 Normal5-10 Borderline>10 AbnormalBASIC METABOLIC [id number] 15:20:00 Test Item Value Reference Range Comments SODIUM (BEAKER) (test 138 meq/L 135-148 yloc=378) POTASSIUM (BEAKER) (test 3.9 meq/L 3.5-5.5 Specimen slightly pvjw=346) hemolyzed CHLORIDE (BEAKER) (test 103 meq/L 98-106 ritl=162) CO2 (BEAKER) (test 22 meq/L 20-31 ehvm=033) BLOOD UREA NITROGEN 16 mg/dL 10-26 (BEAKER) (test uzup=324) CREATININE (BEAKER) (test 0.73 mg/dL 0.50-1.20 Specimen slightly uaei=253) hemolyzed GLUCOSE RANDOM (BEAKER) 237 mg/dL 70-110 (test mqkz=643) CALCIUM (BEAKER) (test 8.3 mg/dL 8.5-10.5 wxua=724) EGFR (BEAKER) (test 104 mL/min/1.73 sq m ESTIMATED GFR IS NOT lhcb=4681) ACCURATE CREATININE CLEARANCE IN PREDICTING GLOMERULAR FILTRATION RATE. ESTIMATED GFR IS NOT APPLICABLE FOR DIALYSIS PATIENTS. PROTHROMBIN TIME/[id number] 15:16:00 Test Item Value Reference Range Comments PROTIME (BEAKER) (test dszv=149) 21.5 seconds 11.8-14.4 INR (BEAKER) (test lath=192) 1.9 1.2-1.5 RECOMMENDED COUMADIN/WARFARIN INR THERAPY RANGESSTANDARD DOSE: 2.0 - 3.0 Includes: PROPHYLAXIS forvenous thrombosis, systemic embolization; TREATMENT for venous thrombosis and/or pulmonary embolus.HIGH RISK: Target INR is 2.5-3.5 for patients with mechanical heart valves.CBC W/PLT COUNT & AUTO [id number] 15:06:00 Test Item Value Reference Range Comments WHITE BLOOD CELL COUNT (BEAKER) (test nslh=836) 9.3 K/ L 4.0-10.0 RED BLOOD CELL COUNT (BEAKER) (test pern=636) 2.48 M/ L 4.20-5.80 HEMOGLOBIN (BEAKER) (test fotr=960) 7.9 GM/DL 13.0-16.8 HEMATOCRIT (BEAKER) (test ogcn=070) 24.4 % 40.0-50.0 MEAN CORPUSCULAR VOLUME (BEAKER) (test kfuc=652) 98.2 fL 82.0-98.0 MEAN CORPUSCULAR HEMOGLOBIN (BEAKER) (test 31.7 pg 27.0-33.0 ytjo=680) MEAN CORPUSCULAR HEMOGLOBIN CONC (BEAKER) (test 32.3 GM/DL 32.0-36.0 wzjd=817) RED CELL DISTRIBUTION WIDTH (BEAKER) (test 15.5 % 12.0-15.0 czwl=889) PLATELET COUNT (BEAKER) (test cgct=908) 213 K/CU MM 150-430 MEAN PLATELET VOLUME (BEAKER) (test iiyv=989) 8.5 fL 6.5-10.5 NUCLEATED RED BLOOD CELLS (BEAKER) (test 0 /100 WBC 0-0 kapo=504) NEUTROPHILS RELATIVE PERCENT (BEAKER) (test 86 % vjyx=900) LYMPHOCYTES RELATIVE PERCENT (BEAKER) (test 6 % acax=014) MONOCYTES RELATIVE PERCENT (BEAKER) (test 8 % xtmx=194) EOSINOPHILS RELATIVE PERCENT (BEAKER) (test 0 % fuum=587) BASOPHILS RELATIVE PERCENT (BEAKER) (test 0 % lfnb=097) NEUTROPHILS ABSOLUTE COUNT (BEAKER) (test 8.00 K/ L 1.80-8.00 ieic=299) LYMPHOCYTES ABSOLUTE COUNT (BEAKER) (test 0.60 K/ L 1.48-4.50 mfrj=090) MONOCYTES ABSOLUTE COUNT (BEAKER) (test 0.70 K/ L 0.00-1.30 tijs=734) EOSINOPHILS ABSOLUTE COUNT (BEAKER) (test 0.00 K/ L 0.00-0.50 lxnv=083) BASOPHILS ABSOLUTE COUNT (BEAKER) (test 0.00 K/ L 0.00-0.20 ljnv=568) PLATELET [id number] 15:04:00 Test Item Value Reference Range Comments PLATELET COUNT (BEAKER) (test yxcn=572) 213 K/CU MM 150-430
[2018-12-13 10:34] LABS: Urine Blood NEGATIVE (NEG); Urine Glucose NEGATIVE (NEG); Urine Protein NEGATIVE (NEG); Urine Specific Gravity 1.015 (1.005-1.030); Urine pH 6.5 (5.0-7.0)
[2018-12-13 10:38] LABS: Urine Bacteria NONE SEEN /HPF (NONE SEEN); Urine RBC <5 /HPF (NONE SEEN)
[2018-12-13 10:39] LABS: Urine Culture Reflex Order NOT NEEDED
[2018-12-13 11:19] LABS: Absolute Lymphocytes (CBC) 1.2 K/uL (0.7-4.9); Absolute Monocytes 0.6 K/uL (0.1-1.3); Absolute Neutrophil 1.6 K/uL (1.8-8.0); Basophils % 0.9 % (0-1.3); Eosinophils % 5.8 % (0-4.4); Hematocrit 27.1 % (39.6-49.0); Lymphocytes % 33.9 % (15.3-44.8); MPV 9.3 fL (7.6-11.3); Monocytes % 15.3 % (3.3-12.3); RBC Red Blood Cell Count 3.28 M/uL (4.33-5.43)
[2018-12-13 11:35] LABS: Albumin 3.4 g/dL (3.4-5.0); Bilirubin Direct 0.5 mg/dL (0-0.2); Bilirubin Total 1.4 mg/dL (0.2-1.0); Potassium 4.1 mmol/L (3.5-5.1)
--- NOTE | 2018-12-13 11:35 | RAD REPORT ---
EXAM DESCRIPTION: CT - Stone Protocol - 12/13/2018 10:56 am CLINICAL HISTORY: Right lower back pain, right flank pain, dysuria COMPARISON: CT study October 2017 TECHNIQUE: Axial 5 mm thick images were obtained without oral or IV contrast. The [id number] span s the entirety of the system partially obscuring uppermost abdomen and lung bases. All CT scans are performed using dose optimization technique as appropriate and may include automated exposure control or mA/KV adjustment according to patient size. FINDINGS: No hydronephrosis is present and no obstructing ureteral calculi. No suspicious renal mass es. Isodense masses and pyelonephritis are not excluded on a stone protocol CT scan. No urinary bladd er suspicious finding. No significant adrenal finding. Liver size is normal. No focal liver lesions seen on noncontrast imaging. Liver capsule is nodular. S pleen is mildly enlarged and there are numerous dilated veins in varices of the upper abdomen. No garland guillermo pancreatic process. Multiple small layering gallstones are present. No wall thickening or perich olecystic fluid. No biliary tree dilatation. Moderate stool volume is present throughout the colon. No dilated bowel loops or focal bowel wall thi ckening. Appendix is normal. No acute GI process seen. No mass or bulky lymphadenopathy. Fat filled left inguinal hernia is present. No free air, free fluid or inflammatory stranding. Disc and bony degenerative changes are present. No acute compression fracture. No pathologic bone pro cess seen. Patient has dense arterial tree calcifications. IMPRESSION: No hydronephrosis, obstructing calculus or acute finding. Isodense masses and pyelonephritis are not excluded on stone protocol technique. No appendicitis or acute GI process. Moderate stool volume present throughout the colon. Cirrhotic liver changes are present with mild splenomegaly and numerous varices of the upper abdomen. Multi stone cholelithiasis with no acute gallbladder or biliary tree finding suspected. Bony degenerative change present but no compression fracture or acute bone process seen.
--- NOTE | 2018-12-13 12:19 | EDPHYS ---
Physician Documentation [facility] Name: Jean Lucio III Age: 78 yrs Sex: Male : 1940 Arrival Date: 12/13/2018 Time: 09:36 Bed 23 Private MD: Colin Garcia E ED Physician Jose Alcantara HPI: 12/13 10:09 This 78 yrs old Male presents to ER via Ambulatory with complaints of Flank rn Pain, Urinary Problem. 10:09 The patient complains of pain in the right mid back. The pain does not radiate. Onset: rn The symptoms/episode began/occurred 4 day(s) ago. Modifying factors: The symptoms are alleviated by nothing. the symptoms are aggravated by movement. Severity of pain: At its worst the pain was mild in the emergency department the pain is unchanged. The patient has experienced similar episodes in the past. Reports feels like has urine infection, + right flank pain and increased urination, has had similar UTI in past, no fever/abd pain/diarrhea/vomiting/constipation. Denies injury. Reports right back pain also feels worse with movement. No focal weakness of legs. . Historical: - PMHx: 10:07 Anemia; CAD s/p [place]; Angiodysplasia of duodenum; Cholithiasis; COPD; Diabetes - NIDDM; aa5 diagnosed with cancer at [place], did not seek treatment; etoh abuse; Gastric varices; GERD; Hyperlipidemia; Hypertension; metabolic encephalopathy; Myocardial infarction; Pneumonia; rhabdomyolysis; UTI; - Immunization history:: Flu vaccine is up to date. - Ebola Screening: : No symptoms or risks identified at this time. - Family history:: not pertinent. - Social history:: Smoking status: Patient uses tobacco products, 7-8 cigarettes per day. - Hospitalizations: : No recent hospitalization is reported. ROS: 10:09 Constitutional: Negative for fever, chills, and weight loss, Eyes: Negative for injury, rn pain, redness, and discharge, ENT: Negative for injury, pain, and discharge, Neck: Negative for injury, pain, and swelling, Cardiovascular: Negative for chest pain, palpitations, and edema, Respiratory: Negative for shortness of breath, cough, wheezing, and pleuritic chest pain, Abdomen/GI: Negative for abdominal pain, nausea, vomiting, diarrhea, and constipation, Back: + right flank pain, denies injury : Negative for injury, bleeding, discharge, and swelling, MS/Extremity: Negative for injury and deformity, Skin: Negative for injury, rash, and discoloration, Neuro: Negative for headache, weakness, numbness, tingling, and seizure. Exam: 10:09 Constitutional: This is a well developed, well nourished patient who is awake, alert, rn and in no acute distress. Ambulates without difficulty using walker to room. ENT: MMM Respiratory: No increased work of breathing, no retractions or nasal flaring. Abdomen/GI: Soft, non-tender Back: No spinal tenderness. No costovertebral tenderness. Full range of motion. Skin: Warm, dry with normal turgor. Normal color with no rashes, no lesions, and no evidence of cellulitis. MS/ Extremity: Pulses equal, no cyanosis. Neurovascular intact. Full, normal range of motion. Equal circumference. Neuro: Awake and alert, GCS 15, oriented to person, place, time, and situation. Cranial nerves II-XII grossly intact. Motor strength 5/5 in all extremities. Sensory grossly intact. Cerebellar exam normal. Normal gait. Vital Signs: 10:20 BP 117 / 47; Pulse 70; Resp 20; Temp 98.1(O); Pulse Ox 100% on R/A; Weight 73.94 kg aj1 (R); Height 6 ft. 0 in. (182.88 cm) (R); 11:21 BP 132 / 52; Pulse 63; Resp 18; Pulse Ox 100% on R/A; aj1 12:13 BP 134 / 52; Pulse 66; Resp 18; Pulse Ox 97% on R/A; aj1 10:20 Body Mass Index 22.11 (73.94 kg, 182.88 cm) aj1 MDM: 10:02 Patient medically screened. rn 10:39 ED course: UA negative, pt reports known cirrhosis, has cut down drinking, will get rn bloodwork and ct stone protocol. . 12:17 Differential diagnosis: nephrolithiasis, UTI. Data reviewed: vital signs, nurses notes, bowl turner test result(s), radiologic studies, CT scan, and as a result, I will discharge patient. Counseling: I had a detailed discussion with the patient and/or guardian regarding: the historical points, exam findings, and any diagnostic results supporting the discharge/admit diagnosis, lab results, radiology results, the need for outpatient follow up, to return to the emergency department if symptoms worsen or persist or if there are any questions or concerns that arise at home. Special discussion: I discussed with the patient/guardian in detail that at this point there is no indication for admission to the hospital. It is understood, however, that if the symptoms persist or worsen the patient needs to return immediately for re-evaluation. ED course: Pt without acute findings that explain symptoms, ct abdomen without acute findings, + known alcoholic cirrhosis, still drinks, negative urine, and known gallstones without RUQ tenderness. LFTs at baseline. . 12:19 ED course: Dr. Haynes read ct without evidence of CBD stone. rn 12/13 10:07 Order name: Urine Microscopic Only; Complete Time: 10:53 rn 12/13 10:07 Order name: Urine Culture 12/13 10:21 Order name: Urine Dipstick--Ancillary (enter results) 12/13 10:39 Order name: Basic Metabolic Panel; Complete Time: 12:16 12/13 10:39 Order name: CBC with Diff 12/13 10:39 Order name: Hepatic Function; Complete Time: 12:16 rn 12/13 10:07 Order name: Urine Dipstick-Ancillary (obtain specimen); Complete Time: 10:21 rn 12/13 10:39 Order name: Lipase; Complete Time: 12:16 rn 12/13 10:39 Order name: IV Saline Lock; Complete Time: 11:21 12/13 10:39 Order name: Labs collected and sent; Complete Time: 11:21 rn 12/13 10:39 Order name: CT Stone Protocol 12/13 11:21 Order name: CBC Smear Scan EDMS Administered Medications: No medications were administered Disposition: 12/13/18 12:18 Discharged to Home. Impression: Low back pain. - Condition is Stable. - Discharge Instructions: Back Pain, Adult, Musculoskeletal Pain, Cholelithiasis. - Medication Reconciliation Form, Thank You Letter, Antibiotic Education, Prescription Opioid Use form. - Follow up: Private Physician; When: As needed; Reason: Recheck today's complaints, Re-evaluation by your physician. - Problem is new. - Symptoms have improved. Signatures: Dispatcher [employer] EDMS Mary Shaw RN RN aj1 Jose Alcantara MD MD rn Calderon, Audri, RN RN aa5 Corrections: (The following items were deleted from the chart) 10:11 10:09 Constitutional: Negative for fever, chills, and weight loss, Eyes: Negative for rn injury, pain, redness, and discharge, ENT: Negative for injury, pain, and discharge, Neck: Negative for injury, pain, and swelling, Cardiovascular: Negative for chest pain, palpitations, and edema, Respiratory: Negative for shortness of breath, cough, wheezing, and pleuritic chest pain, Abdomen/GI: Negative for abdominal pain, nausea, vomiting, diarrhea, and constipation, : Negative for injury, bleeding, discharge, and swelling, MS/Extremity: Negative for injury and deformity, Skin: Negative for injury, rash, and discoloration, Neuro: Negative for headache, weakness, numbness, tingling, and seizure, rn 12:45 12:18 12/13/2018 12:18 Discharged to Home. Impression: Low back pain. Condition is aj1 Stable. Forms are Medication Reconciliation Form, Thank You Letter, Antibiotic Education, Prescription Opioid Use. Follow up: Private Physician; When: As needed; Reason: Recheck today's complaints, Re-evaluation by your physician. Problem is new. Symptoms have improved. rn
--- NOTE | 2018-12-13 12:19 | ER ---
Nurse's Notes [facility] Name: Jean Lucio III Age: 78 yrs Sex: Male : 1940 Arrival Date: 12/13/2018 Time: 09:36 Bed 23 Private MD: Colin Garcia E Diagnosis: Low back pain Presentation: 12/13 10:00 Presenting complaint: Patient states: right low back pain and urinary frequency that aa5 began 4-5 days ago. Pt denies fever, denies nausea/vomiting. 10:00 Transition of care: patient was not received from another setting of care. Onset of aa5 symptoms was November 2018. Risk Assessment: Do you want to hurt yourself or someone else? Patient reports no desire to harm self or others. Care prior to arrival: None. 10:00 Method Of Arrival: Ambulatory aa5 10:00 Acuity: RITA 3 aa5 Historical: - PMHx: 10:07 Anemia; CAD s/p [place]; Angiodysplasia of duodenum; Cholithiasis; COPD; Diabetes - NIDDM; aa5 diagnosed with cancer at [place], did not seek treatment; etoh abuse; Gastric varices; GERD; Hyperlipidemia; Hypertension; metabolic encephalopathy; Myocardial infarction; Pneumonia; rhabdomyolysis; UTI; - Immunization history:: Flu vaccine is up to date. - Ebola Screening: : No symptoms or risks identified at this time. - Family history:: not pertinent. - Social history:: Smoking status: Patient uses tobacco products, 7-8 cigarettes per day. - Hospitalizations: : No recent hospitalization is reported. Screenin:21 Abuse screen: Denies threats or abuse. Denies injuries from another. Nutritional aj1 screening: No deficits noted. Tuberculosis screening: No symptoms or risk factors identified. Assessment: 10:21 General: Appears in no apparent distress. comfortable, Behavior is calm, cooperative, aj1 appropriate for age. Pain: Complains of pain in right mid back. Neuro: Level of Consciousness is awake, alert, obeys commands, Oriented to person, place, time, situation. Cardiovascular: Patient's skin is warm and dry. Respiratory: Airway is patent Respiratory effort is even, unlabored, Respiratory pattern is regular, symmetrical. GI: No signs and/or symptoms were reported involving the gastrointestinal system. : Reports urinary frequency. EENT: No signs and/or symptoms were reported regarding the EENT system. Derm: No signs and/or symptoms reported regarding the dermatologic system. Skin is pink, warm \T\ dry. normal. Musculoskeletal: No signs and/or symptoms reported regarding the musculoskeletal system. Circulation, motion, and sensation intact. 10:50 Reassessment: Patient transported to CT via wheelchair. aj1 11:21 Reassessment: Patient appears in no apparent distress at this time. No changes from aj1 previously documented assessment. Patient and/or family updated on plan of care and expected duration. Pain level reassessed. Patient is alert, oriented x 3, equal unlabored respirations, skin warm/dry/pink. 12:13 Reassessment: Patient appears in no apparent distress at this time. No changes from aj1 previously documented assessment. Patient and/or family updated on plan of care and expected duration. Pain level reassessed. Patient is alert, oriented x 3, equal unlabored respirations, skin warm/dry/pink. Patient awaiting CBC and CT results at this time. Vital Signs: 10:20 BP 117 / 47; Pulse 70; Resp 20; Temp 98.1(O); Pulse Ox 100% on R/A; Weight 73.94 kg aj1 (R); Height 6 ft. 0 in. (182.88 cm) (R); 11:21 BP 132 / 52; Pulse 63; Resp 18; Pulse Ox 100% on R/A; aj1 12:13 BP 134 / 52; Pulse 66; Resp 18; Pulse Ox 97% on R/A; aj1 10:20 Body Mass Index 22.11 (73.94 kg, 182.88 cm) aj1 ED Course: 09:36 Patient arrived in ED. as 09:37 Colin Garcia MD is Private Physician. as 10:00 Arm band placed on Patient placed in an exam room, on a stretcher. aa5 10:02 Jose Alcantara MD is Attending Physician. rn 10:05 Triage completed. aa5 10:20 Mary Shaw, JENIFER is Primary Nurse. aj1 10:21 Patient has correct armband on for positive identification. Bed in low position. Call aj1 light in reach. Side rails up X 1. 10:21 No provider procedures requiring assistance completed. aj1 10:54 CT completed. Patient tolerated procedure well. Patient moved to CT via wheelchair. kw1 Patient moved back from CT. 10:56 CT Stone Protocol In Process Unspecified. EDMS 11:17 Inserted saline lock: 20 gauge in right antecubital area, using aseptic technique. aj1 Blood collected. 12:45 IV discontinued, intact, bleeding controlled, No redness/swelling at site. Pressure aj1 dressing applied. Administered Medications: No medications were administered Outcome: 12:18 Discharge ordered by . rn 12:45 Patient left the ED. aj1 Signatures: Dispatcher [employer] EDMary Roe, RN RN [email or web address] Marian Cao Roman, MD MD rn Calderon, Audri, RN RN [email or web address] Keely Pickens kw1
[2018-12-13 12:29] LABS: Platelet Estimate DECR; Urine White Blood Cell Casts OK
[2018-12-13 12:30] LABS: Blood Morphology Comment NOT SEEN (NOT SEEN)
[2018-12-13 12:54] VITALS: TEMP 98.1
[2018-12-13 12:57] VITALS: BP 134/52; O2SAT 97
== END 2018-12-13 12:45 | disposition home or self-care (01) ==
LOC: ER 09:33
DX: M54.5 Low back pain (principal); I10 Essential (primary) hypertension; I25.2 Old myocardial infarction; K74.60 Unspecified cirrhosis of liver; Z72.0 Tobacco use
CPT/HCPCS: 36415; 74176; 76377; 80048; 80076; 81003; 81015; 83690; 85025; 87086; 87088; 99284

== ENCOUNTER 2019-02-10 13:15 | Emergency (ER) | payer OTHER ==
--- OUTSIDE RECORDS SUMMARY | 2019-02-10 13:17 | XMS REPORT | Clinical Summary ---
:1940 Author [facility] Address [address] [place] [address] Care Team Providers Name Role Phone Amina [...] oz/Week Comments No quit 5 days ago [phone] Sex Assigned at Date Recorded Not on file Job Start Date Occupation Industry Not on file Not on file Not on file Travel History Travel Start Travel End No recent travel history available. Last Filed Vital Signs Not on file Plan of Treatment Not on file Results Not on fileafter 02/09/2018 Insurance Payer Benefit Plan / Group Subscriber ID Type Phone Address MEDICARE MEDICARE A B xxxxxxxxxxx Medicare MEDICAID MEDICAID [facility] xxxxxxxxx Medicaid Advance Directives For more information, please contact:[facility] [id number] RAMANA Bell [phone] Code Status Date Activated Date Inactivated Comments Full Code 09/18/2017 2:28 PM 09/25/2017 8:49 PM This code status was determined by: Patient
[2019-02-10] MEDS ORDERED: ONDANSETRON 4 MG/2 ML VIAL ONE (14:26)
[2019-02-10] MEDS ORDERED: NA CHLORIDE 0.9% 1,000 ML ONE (14:27)
--- NOTE | 2019-02-10 14:29 | RAD REPORT ---
EXAM DESCRIPTION: CT - Stone Protocol - 02/10/2019 2:19 pm CLINICAL HISTORY: Flank pain. ABD PAIN COMPARISON: Stone Protocol dated 12/13/2018 TECHNIQUE: Axial images were obtained without oral or IV contrast. Lack of contrast limits solid org an and vascular assessment. The [id number] spans the entirety of the system partially obscuring uppermost abdomen and lung bases. Coronal reformatted images were obtained and reviewed. All CT scans are performed using dose optimization technique as appropriate and may include automated exposure control or mA/KV adjustment according to patient size. FINDINGS: Small left and moderate right pleural effusion is seen with atelectasis in the right lung base. Nodular contour affects the liver compatible with cirrhosis. Mild splenomegaly.Cholelithiasis. The pa ncreas and adrenal glands are normal. No pathologic lymphadenopathy in the abdomen or pelvis. Aortic atherosclerosis is seen. Heavy atherosclerotic plaquing in the left common iliac artery. No urinary tract stones or obstructive uropathy. No bowel obstruction, free air, free fluid or abscess. Normal appendix noted. Lumbar degenerative changes are present. IMPRESSION: Liver cirrhosis with mild splenomegaly. Cholelithiasis. Small left and moderate right pleural effusion. Heavy atherosclerosis.
[2019-02-10 14:36] LABS: Absolute Lymphocytes (CBC) 1.6 K/uL (0.7-4.9); Basophils % 0.4 % (0-1.3); Eosinophils % 4.4 % (0-4.4); Lymphocytes % 38.2 % (15.3-44.8); MPV 8.6 fL (7.6-11.3); Monocytes % 18.1 % (3.3-12.3); RBC Red Blood Cell Count 2.33 M/uL (4.33-5.43)
[2019-02-10 14:45] LABS: Urine Bacteria <20 /HPF (NONE SEEN); Urine Culture Reflex Order NOT NEEDED; Urine RBC <5 /HPF (NONE SEEN)
[2019-02-10 14:47] LABS: Urine Blood NEGATIVE (NEG); Urine Glucose NEGATIVE (NEG); Urine Protein NEGATIVE (NEG); Urine Specific Gravity 1.015 (1.005-1.030); Urine pH 6.5 (5.0-7.0)
[2019-02-10 14:48] LABS: Hematocrit 17.8 % (39.6-49.0)
[2019-02-10 14:50] LABS: Albumin 3.1 g/dL (3.4-5.0); Bilirubin Direct 0.4 mg/dL (0-0.2); Bilirubin Total 1.1 mg/dL (0.2-1.0); Potassium 3.7 mmol/L (3.5-5.1); Protein, Total 6.6 g/dL (6.4-8.2); Troponin (Emerg Dept Use Only) 0.15 ng/mL (0.0-0.045)
--- NOTE | 2019-02-10 15:10 | ER ---
Nurse's Notes [facility] Name: Jean Lucio III Age: 78 yrs Sex: Male : 1940 Arrival Date: 02/10/2019 Time: 13:16 Bed 8 Private MD: Diagnosis: Anemia, unspecified Presentation: 02/10 13:20 Presenting complaint: N/V/D, diffuse abdominal pain, and left flank pain x 1 week. Not hb tolerating fluids. Denies fever/urinary s/s. Transition of care: patient was not received from another setting of care. Onset of symptoms was February 03, 2019. Risk Assessment: Do you want to hurt yourself or someone else? Patient reports no desire to harm self or others. Care prior to arrival: None. 13:20 Method Of Arrival: Wheelchair hb 13:20 Acuity: RITA 3 hb 13:30 Initial Sepsis Screen: Does the patient meet any 2 criteria? No. Patient's initial aa5 sepsis screen is negative. Does the patient have a suspected source of infection? No. Patient's initial sepsis screen is negative. Historical: - Allergies: 13:23 No Known Allergies; hb - Home Meds: 13:23 None [Active]; hb - PMHx: 13:23 diagnosed with cancer at [place], did not seek treatment; Angiodysplasia of duodenum; hb Hyperlipidemia; COPD; GERD; Gastric varices; CAD s/p [place]; Hypertension; Diabetes - NIDDM; metabolic encephalopathy; Myocardial infarction; etoh abuse; rhabdomyolysis; Anemia; Cholithiasis; Pneumonia; UTI; 14:00 Liver Cancer; aa5 - Immunization history:: Adult Immunizations up to date. - Social history:: Smoking status: Patient/guardian denies using tobacco. - Ebola Screening: : No symptoms or risks identified at this time. Screenin:49 Abuse screen: Denies threats or abuse. Nutritional screening: No deficits noted. aa5 Tuberculosis screening: No symptoms or risk factors identified. Fall Risk None identified. Assessment: 13:30 General: Appears comfortable, Behavior is calm, cooperative. Pain: Complains of pain in aa5 right upper quadrant, left upper quadrant, right lower quadrant and left lower quadrant and left flank Pain does not radiate. Pain currently is 9 out of 10 on a pain scale. Quality of pain is described as aching, Pain began this morning Is continuous. Neuro: Level of Consciousness is awake, alert, obeys commands, Oriented to person, place, time, situation. Cardiovascular: Heart tones S1 S2 present Rhythm is regular. Respiratory: Airway is patent Respiratory effort is even, unlabored, Respiratory pattern is regular, symmetrical, Breath sounds are clear bilaterally. GI: Abdomen is round Bowel sounds present X 4 quads. Abd is soft and non tender X 4 quads. Reports nausea, vomiting, since 1 week ago diarrhea 4 days ago, pt reports last BM was 4 days ago. Pt states "I vomited pinkish a few times but it's not pink anymore", denies bloody stools. : No signs and/or symptoms were reported regarding the genitourinary system. Reports normal voiding habits. EENT: No signs and/or symptoms were reported regarding the EENT system. Derm: Skin is dry, Skin is pale, Skin temperature is warm. Musculoskeletal: Range of motion: intact in all extremities. 14:15 Reassessment: Pt taken to CT via wheelchair . aa5 14:25 Reassessment: Pt back from CT. Awaiting lab and CT results, pt notified of wait time. aa5 Pt currently sitting up in bed watching TV, equal unlabored respirations. NSR on monitor, bed in low position, side rails x 2, call coates within reach. . 14:25 Pain: Pain currently is 5 out of 10 on a pain scale. aa5 15:08 Reassessment: Pt rates pain 8/10 on a pain scale. Pt sitting up in bed watching TV. . aa5 Neuro: Level of Consciousness is awake, alert, obeys commands, Oriented to person, place, time, situation. Respiratory: Airway is patent Respiratory effort is even, unlabored, Respiratory pattern is regular, symmetrical. Derm: Skin is dry, Skin is pale, Skin temperature is warm. 15:35 Reassessment: RBC consent signed by patient. aa5 15:35 Pain: Pain currently is 7 out of 10 on a pain scale. Neuro: Level of Consciousness is aa5 awake, alert, obeys commands, Oriented to person, place, time, situation. Respiratory: Airway is patent Respiratory effort is even, unlabored, Respiratory pattern is regular, symmetrical. Derm: Skin is dry, Skin is pale, Skin temperature is warm. 15:35 Reassessment: Patient states feeling better. aa5 15:35 Pain: Pain currently is 5 out of 10 on a pain scale. aa5 16:30 Reassessment: RBC transfusion started at 1615 at 50cc/hr, infusion currently at 150/hr. aa5 Lungs CTA, pt denies SOB and CP. NSR on monitor. See blood transfusion record for more information and VS. . 17:15 Neuro: Level of Consciousness is awake, alert, obeys commands, Oriented to person, aa5 place, time, situation. Respiratory: Airway is patent Respiratory effort is even, unlabored, Respiratory pattern is regular, symmetrical. Derm: Skin is dry, Skin is pale, Skin temperature is warm. 17:30 Reassessment: Unsuccessful attempt to call report to [facility]. . aa5 17:45 Reassessment: Pt sitting up in bed eating, pt tolerating well. . aa5 17:45 Neuro: Level of Consciousness is awake, alert, obeys commands, Oriented to person, aa5 place, time, situation. Cardiovascular: Denies chest pain. Respiratory: Breath sounds are clear bilaterally. Denies shortness of breath. Respiratory: Airway is patent Respiratory effort is even, unlabored, Respiratory pattern is regular, symmetrical. Derm: Skin is dry, Skin is pale, Skin temperature is warm. 18:05 Reassessment: Report given to JENIFER Engel at [facility]. Awaiting EMS for transfer, aa5 pt notified of wait time. Pt sitting up in bed watching TV. Pt ate 100% of clear liquid diet. NSR on monitor. . 19:00 Reassessment: RBC transfusion completed, pt tolerated well. Lungs CTA. NSR on monitor. aa5 Pt sitting up in bed, awaiting EMS. . 19:35 Reassessment: Patient appears in no apparent distress at this time. Patient is alert, aa1 oriented x 3, equal unlabored respirations, skin warm/dry/pink. [facility] present for transfer to [facility] Patient denies pain at this time. Vital Signs: 13:21 BP 128 / 56; Pulse 82; Resp 16; Temp 99.1; Pulse Ox 99% on R/A; Weight 74.84 kg; Height hb 6 ft. (182.88 cm); Pain 9/10; 13:50 BP 118 / 51; Pulse 82; Resp 16 S; Pulse Ox 100% on R/A; aa5 14:28 BP 126 / 49; Pulse 75; Resp 16 S; Pulse Ox 100% on R/A; Pain 5/10; aa5 15:14 BP 132 / 55; Pulse 83; Resp 18 S; Pulse Ox 100% on R/A; Pain 8/10; aa5 16:00 BP 131 / 53; Pulse 78; Resp 16 S; Temp 98.0(TE); Pulse Ox 100% on R/A; aa5 16:30 BP 133 / 56; Pulse 80; Resp 18 S; Temp 98.6(TE); Pulse Ox 100% on R/A; aa5 17:15 BP 130 / 63; Pulse 78; Resp 16 S; Temp 98.2(TE); Pulse Ox 100% on R/A; aa5 19:15 BP 149 / 61; Pulse 76; Resp 16; Temp 98.0; Pulse Ox 100% on R/A; Pain 0/10; aa1 13:21 Body Mass Index 22.38 (74.84 kg, 182.88 cm) hb ED Course: 13:16 Patient arrived in ED. as 13:21 Triage completed. hb 13:21 Arm band placed on. hb 13:25 Radha Bang, RN is Primary Nurse. aa5 13:27 Sean Michaud MD is Attending Physician. gs 13:35 Patient has correct armband on for positive identification. Placed in gown. Bed in low aa5 position. Call light in reach. Side rails up X2. literacy education professor on. Pulse ox on. NIBP on. 14:10 Initial lab(s) drawn, by me, sent to lab. Inserted saline lock: 18 gauge in right aa5 antecubital area, using aseptic technique. Blood collected. 14:20 CT Stone Protocol In Process Unspecified. EDMS 15:06 Pradeep Vieyra MD is Hospitalizing Provider. gs 15:15 Urine collected: clean catch specimen, clear, ailyn colored. jb1 16:09 initiated a transfer with Ans[place] at [facility] [place]. eb 16:[address] Covington the GI adon for [facility] with Dr. Michaud for patient eb transfer consultation. 16:47 connected the hospitalist adon for [facility] with Dr. Michaud for patient eb transfer consultation. 16:47 PT-INR Sent. iw 17:13 administrative approval given by Ansley Harrington RN dry transfer worker/ patient has been eb accepted to [facility] by Dr. Echols/ patient is going to 9 tower Bed 943 report to be called to [phone]. 19:02 Report given to JENIFER Parsons. aa5 19:15 No provider procedures requiring assistance completed. Patient transferred, IV remains aa1 in place. Administered Medications: 14:18 Not Given (Patient Refused): Zofran 4 mg IVP once; over 2 minutes aa5 14:25 Drug: NS 0.9% 1000 ml Route: IV; Rate: 125 ml/hr; Site: right antecubital; aa5 19:34 Follow up: IV Status: Infusion continued upon transfer aa1 15:08 Drug: fentaNYL (PF) 25 mcg Route: IVP; Site: right antecubital; aa5 15:30 Follow up: Response: No adverse reaction aa5 Point of Care Testing: Blood Glucose: 13:49 Blood Glucose: 123 mg/dL; aa5 Ranges: Outcome: 15:09 Decision to Hospitalize by Provider. gs 17:22 ER care complete, transfer ordered by . 19:36 Transferred by ground EMS to [facility], Transfer form completed. aa1 19:36 Condition: stable 19:36 Discharge instructions given to patient, Instructed on the need for transfer, Demonstrated understanding of instructions. 19:36 Patient left the ED. aa1 Signatures: Dispatcher [employer] EDMS Filipe Michael jbJaqueline Abel RN RN aa1 Marian Cao Irene, RN RN iw Calderon, Audri, RN RN aa5 Lizeth Gunn RN RN hb Starr, Gregory, MD MD Aviva Brandon Corrections: (The following items were deleted from the chart) 16:52 15:35 Reassessment: Patient states feeling better. RBC consent signed by patient. aa5 aa5 16:53 15:08 Reassessment: Patient states feeling better. aa5 aa5 17:39 16:30 Reassessment: RBC transfusion started at 1615 at 50cc/hr, infusion currently at aa5 150/hr. Lungs CTA, pt denies SOB and CP. NSR on monitor. . aa5
--- NOTE | 2019-02-10 15:11 | EDPHYS ---
Physician Documentation [facility] Name: Jean Lucio III Age: 78 yrs Sex: Male : 1940 Arrival Date: 02/10/2019 Time: 13:16 Bed 8 Private MD: ED Physician Sean Michaud HPI: 02/10 17:18 This 78 yrs old Male presents to ER via Wheelchair with complaints of gs Vomiting. 17:18 The patient presents to the emergency department with vomiting. Onset: The gs symptoms/episode began/occurred yesterday. Possible causes: unknown. The symptoms are aggravated by nothing. The symptoms are alleviated by nothing. Associated signs and symptoms: Pertinent positives: abdominal pain, anorexia, says melena a few days ago but cleared up. Severity of symptoms: At their worst the symptoms were severe in the emergency department the symptoms are unchanged. The patient has experienced similar episodes in the past, a few times. Historical: - Allergies: 13:23 No Known Allergies; hb - Home Meds: 13:23 None [Active]; hb - PMHx: 13:23 diagnosed with cancer at [place], did not seek treatment; Angiodysplasia of duodenum; hb Hyperlipidemia; COPD; GERD; Gastric varices; CAD s/p [place]; Hypertension; Diabetes - NIDDM; metabolic encephalopathy; Myocardial infarction; etoh abuse; rhabdomyolysis; Anemia; Cholithiasis; Pneumonia; UTI; 14:00 Liver Cancer; aa5 - Immunization history:: Adult Immunizations up to date. - Social history:: Smoking status: Patient/guardian denies using tobacco. - Ebola Screening: : No symptoms or risks identified at this time. ROS: 17:18 All other systems are negative. gs Exam: 17:18 Head/Face: Normocephalic, atraumatic. Eyes: Pupils equal round and reactive to light, gs extra-ocular motions intact. Lids and lashes normal. Conjunctiva and sclera are non-icteric and not injected. Cornea within normal limits. Periorbital areas with no swelling, redness, or edema. ENT: Nares patent. No nasal discharge, no septal abnormalities noted. Tympanic membranes are normal and external auditory canals are clear. Oropharynx with no redness, swelling, or masses, exudates, or evidence of obstruction, uvula midline. Mucous membranes moist. Neck: Trachea midline, no thyromegaly or masses palpated, and no cervical lymphadenopathy. Supple, full range of motion without nuchal rigidity, or vertebral point tenderness. No Meningismus. Chest/axilla: Normal chest wall appearance and motion. Nontender with no deformity. No lesions are appreciated. Cardiovascular: Regular rate and rhythm with a normal S1 and S2. No gallops, murmurs, or rubs. Normal PMI, no JVD. No pulse deficits. Respiratory: Lungs have equal breath sounds bilaterally, clear to auscultation and percussion. No rales, rhonchi or wheezes noted. No increased work of breathing, no retractions or nasal flaring. Back: No spinal tenderness. No costovertebral tenderness. Full range of motion. Skin: Warm, dry with normal turgor. Normal color with no rashes, no lesions, and no evidence of cellulitis. MS/ Extremity: Pulses equal, no cyanosis. Neurovascular intact. Full, normal range of motion. Neuro: Awake and alert, GCS 15, oriented to person, place, time, and situation. Cranial nerves II-XII grossly intact. Motor strength 5/5 in all extremities. Sensory grossly intact. Cerebellar exam normal. Normal gait. 17:18 Constitutional: The patient appears alert, awake, pale. 17:18 Abdomen/GI: Palpation: moderate abdominal tenderness, in the left upper quadrant and left lower quadrant, rebound tenderness, is not appreciated. Vital Signs: 13:21 BP 128 / 56; Pulse 82; Resp 16; Temp 99.1; Pulse Ox 99% on R/A; Weight 74.84 kg; Height hb 6 ft. (182.88 cm); Pain 9/10; 13:50 BP 118 / 51; Pulse 82; Resp 16 S; Pulse Ox 100% on R/A; aa5 14:28 BP 126 / 49; Pulse 75; Resp 16 S; Pulse Ox 100% on R/A; Pain 5/10; aa5 15:14 BP 132 / 55; Pulse 83; Resp 18 S; Pulse Ox 100% on R/A; Pain 8/10; aa5 16:00 BP 131 / 53; Pulse 78; Resp 16 S; Temp 98.0(TE); Pulse Ox 100% on R/A; aa5 16:30 BP 133 / 56; Pulse 80; Resp 18 S; Temp 98.6(TE); Pulse Ox 100% on R/A; aa5 17:15 BP 130 / 63; Pulse 78; Resp 16 S; Temp 98.2(TE); Pulse Ox 100% on R/A; aa5 19:15 BP 149 / 61; Pulse 76; Resp 16; Temp 98.0; Pulse Ox 100% on R/A; Pain 0/10; aa1 13:21 Body Mass Index 22.38 (74.84 kg, 182.88 cm) hb MDM: 13:58 Patient medically screened. 17:18 Differential diagnosis: pancreatitis, diverticulitis, gastroenteritis, anemia gi gs bleeding. Data reviewed: vital signs, nurses notes, old medical records, lab test result(s), EKG, radiologic studies. Counseling: I had a detailed discussion with the patient and/or guardian regarding: the historical points, exam findings, and any diagnostic results supporting the discharge/admit diagnosis, lab results, radiology results, the need to transfer to another facility. Response to treatment: the patient's symptoms have mildly improved after treatment. 02/10 14:08 Order name: Urine Microscopic Only; Complete Time: 15:00 02/10 14:08 Order name: Basic Metabolic Panel; Complete Time: 15:00 02/10 14:08 Order name: CBC with Diff 02/10 14:08 Order name: Hepatic Function; Complete Time: 15:00 02/10 14:08 Order name: Lipase; Complete Time: 15:00 02/10 14:08 Order name: Troponin (emerg Dept Use Only); Complete Time: 15:00 02/10 14:08 Order name: CT Stone Protocol; Complete Time: 14:35 02/10 14:11 Order name: Type And Screen 02/10 14:43 Order name: Urine Dipstick--Ancillary (enter results); Complete Time: 15:00 02/10 15:21 Order name: Bb Add On eb 02/10 15:40 Order name: Packed RBC Leukored EDMS 02/10 15:58 Order name: PT-INR 02/10 14:08 Order name: Urine Dipstick-Ancillary (obtain specimen); Complete Time: 14:18 02/10 14:08 Order name: IV Saline Lock; Complete Time: 14:11 02/10 14:08 Order name: Labs collected and sent; Complete Time: 14:11 02/10 14:08 Order name: Cardiac monitoring; Complete Time: 14:11 02/10 14:08 Order name: EKG - Nurse/Tech; Complete Time: 14:11 02/10 16:48 Order name: Diet Clear Liquid; Complete Time: 16:49 iw Administered Medications: 14:18 Not Given (Patient Refused): Zofran 4 mg IVP once; over 2 minutes aa5 14:25 Drug: NS 0.9% 1000 ml Route: IV; Rate: 125 ml/hr; Site: right antecubital; aa5 19:34 Follow up: IV Status: Infusion continued upon transfer aa1 15:08 Drug: fentaNYL (PF) 25 mcg Route: IVP; Site: right antecubital; aa5 15:30 Follow up: Response: No adverse reaction aa5 Point of Care Testing: Blood Glucose: 13:49 Blood Glucose: 123 mg/dL; aa5 Ranges: Critical Glucose Levels:Adult <50 mg/dl or >400 mg/dl <40 mg/dl or >180 mg/dl Disposition: 02/10/19 17:22 Transfer ordered to [facility]. Diagnosis is Anemia, unspecified. - Reason for transfer: Higher level of care. - Accepting physician is battery. - Condition is Stable. - Problem is an acute exacerbation. - Symptoms have improved. Critical care time excluding procedures: 17:18 Critical care time: Bedside Care: 10 minutes, Consultation: 10 minutes, Family gs Intervention: 10 minutes. Total time: 30 minutes Signatures: Dispatcher [employer] EDWV Jaqueline Joyce RN RN aa1 Radha Bang RN RN aa5 Lizeth Gunn RN RN hb Starr, Gregory, MD MD Corrections: (The following items were deleted from the chart) 16:15 15:09 Hospitalization Ordered by Pradeep Vieyra MD for Inpatient Admission. Preliminary gs diagnosis is Anemia in other chronic diseases classified elsewhere. Bed requested for Telemetry/MedSurg (Inpatient). Status is Inpatient Admission. Condition is Stable. Problem is new. Symptoms have improved. UTI on Admission? No. gs 19:36 17:22 02/10/2019 17:22 Transfer ordered to [facility]. Diagnosis is aa1 Anemia, unspecified. Reason for transfer: Higher level of care. Accepting physician is battery. Condition is Stable. Problem is an acute exacerbation. Symptoms have improved. gs
[2019-02-10] MEDS ORDERED: FENTANYL CITR 100 MCG/2 ML ONE (15:25)
[2019-02-10] MEDS ORDERED: NA CHLORIDE 0.9% 100 ML IV ONE (16:12)
[2019-02-10 17:06] LABS: Protime INR 1.56
[2019-02-10 19:54] LABS: Anisocytosis 2+; Blood Morphology Comment NOTED (NOT SEEN); Hypochromasia 2+; Platelet Estimate DECR; Poikilocytosis 1+; Polychromasia 4+
[2019-02-10 19:55] LABS: Ovalocytes SLIGHT
[2019-02-10 20:02] VITALS: O2SAT 100
[2019-02-10 20:10] VITALS: BP 149/61; TEMP 98
--- NOTE | 2019-02-11 15:40 | EKG ---
Test Date: 2019-02-10 Test Time: 16:07:17 [place]: SIXTO MEASUREMENT RESULTS: Intervals: Rate: 77 AR: 216 QRSD: 96 QT: 410 QTc: 463 Kuna: P: 12 AR: 216 QRS: 12 T: -4 INTERPRETIVE STATEMENTS: Sinus rhythm with 1st degree AV block Nonspecific ST abnormality Abnormal ECG Compared to ECG 06/25/2018 12:53:21 First degree AV block now present Sinus tachycardia no longer present ST (T wave) deviation still present Electronically Signed On 02-11-19 15:35:41 CDT by Manny Diaz
== END 2019-02-10 19:36 | disposition short-term general hospital (02) ==
LOC: ER 13:15
DX: D64.9 Anemia, unspecified (principal); E78.5 Hyperlipidemia, unspecified; J44.9 Chronic obstructive pulmonary disease, unspecified; K21.9 Gastro-esophageal reflux disease without esophagitis; I10 Essential (primary) hypertension; E11.9 Type 2 diabetes mellitus without complications; I25.2 Old myocardial infarction; C22.8 Malignant neoplasm of liver, primary, unspecified as to type
CPT/HCPCS: 85025; 80048; 36415; 86900; 86850; 85610; 86901; 80076; 84484; 83690; 76377; 74176; J3010; P9016; J7030; 81003; 81015; 82962; 93005; 96361; 96374; 99285; J2405

== ENCOUNTER 2019-03-26 16:33 | Emergency (ER) | payer OTHER ==
--- OUTSIDE RECORDS SUMMARY | 2019-03-26 16:36 | XMS REPORT | Clinical Summary ---
:1940 Author Organization [facility] Address [address] [place] [address] Care Team Providers Name Role Phone Pcp, No Primary Care Provider Unavailable Allergies No Known Allergies Medications Medication Sig Dispensed Refills Start Date End Date Status polyethylene Take 17 g by 14 each 0 02/13/2019 Active glycol (GLYCOLAX) mouth 2 (two) 17 gram packet times daily. pantoprazole Take 1 tablet 180 tablet 0 02/13/2019 Active (PROTONIX) 40 MG (40 mg total) tablet by mouth 2 (two) times daily For 12 weeks. ferrous sulfate Take 1 tablet 30 tablet 0 02/13/2019 Active 325 (65 FE) MG EC (325 mg total) tablet by mouth daily with breakfast Increase to 3x a day if tolerated. simvastatin Take 10 mg by 0 Discontinued (ZOCOR) 10 MG mouth nightly. 9 tablet ferrous sulfate Take 325 mg by 0 Discontinued 325 (65 FE) MG mouth daily 9 tablet with breakfast. sucralfate Take 10 mLs (1 1200 mL 0 02/13/2019 (CARAFATE) 100 g total) by 9 mg/mL suspension mouth every 6 (six) hours for 30 days To protect the stomach. Active Problems Problem Noted Date Immunity status testing 03/02/2019 Hepatocellular carcinoma 03/02/2019 Hepatic encephalopathy 03/02/2019 Portal hypertension 03/02/2019 Abdominal pain 02/10/2019 Nausea & vomiting 02/10/2019 Acute urinary retention 09/24/2017 Acute respiratory failure with hypoxia 09/22/2017 Essential hypertension 09/22/2017 Alcoholic cirrhosis of liver with ascites 09/22/2017 Pleural effusion 09/22/2017 Anemia 09/22/2017 GIB (gastrointestinal bleeding) 09/18/2017 Encounters Date Type Specialty Care Team Description 02/22/2019 Office Visit Hepatology Primitivo Guevara Alcoholic cirrhosis of liver with ascites (HCC) (Primary Dx); MD Bart Gastrointestinal hemorrhage with melena; Jaylin Martell Immunity status testing; SHIRLENE Stevens Hepatocellular carcinoma (HCC); Anemia, unspecified type; Hepatic encephalopathy (HCC); Portal hypertension (HCC) 02/12/2019 Anesthesia Event Gastroenterology Joel Clayton MD 02/12/2019 Surgery Gastroenterology Merle Covington UPPER ENDOSCOPY MD Meghan 02/11/2019 Travel 02/10/2019 [facility], Gastrointestinal hemorrhage , unspecified gastrointestinal hemorrhage type; - Encounter Medicine MD Ke Acute on chronic blood loss anemia; 02/13/2019 Shiekh Alcoholic cirrhosis of liver with ascites (HCC); Sroujieh, Gastrointestinal hemorrhage with melena MD Celina Hawkins Fang-Ying, MD 02/10/2019 Telephone Gastroenterology Merle [place] GI Bleeding MD Meghan after 03/25/2018 Family History Medical History Relation Name Comments Throat cancer Father Diabetes Mother Relation Name Status Comments Father Mother Social History Tobacco Use Types Packs/Day Years Used Date Current Every Day Smoker 1 60 Smokeless Tobacco: Never Used Tobacco Cessation: Ready to Quit: No; Counseling Given: Yes Alcohol Use Drinks/Week oz/Week Comments Yes 2 Cans of beer 1.2 quit 5 days ago 09-14-17 Sex Assigned at Date Recorded Not on file Job Start Date Occupation Industry Not on file Not on file Not on file Travel History Travel Start Travel End No recent travel history available. Last Filed Vital Signs Vital Sign Reading Time Taken Blood Pressure 102/55 02/22/2019 11:25 AM CDT Pulse 84 02/22/2019 11:25 AM CDT Temperature 36.5 C (97.7 F) 02/22/2019 11:25 AM CDT Respiratory Rate 16 02/22/2019 11:25 AM CDT Oxygen Saturation 100% 02/22/2019 11:25 AM CDT Inhaled Oxygen Concentration 21% 02/12/2019 11:49 PM CDT Weight 73.2 kg (161 lb 4.8 oz) 02/22/2019 11:25 AM CDT Height 182.9 cm (6') 02/22/2019 11:25 AM CDT Body Mass Index 21.88 02/22/2019 11:25 AM CDT Plan of Treatment Date Type Specialty Care Team Description 05/25/2019 Office Visit Hepatology Resource, [facility] Procedures Procedure Name Priority Date/Time Associated Comments Diagnosis CBC W/PLT COUNT & AUTO Routine 02/22/2019 12:51 Alcoholic Results for this DIFFERENTIAL PM CDT cirrhosis of liver procedure are in with ascites (HCC) the results section. PROTHROMBIN TIME/INR Routine 02/22/2019 12:51 Alcoholic Results for this PM CDT cirrhosis of liver procedure are in with ascites (HCC) the results section. CBC W/PLT COUNT & AUTO Routine 02/22/2019 12:51 Alcoholic Results for this DIFFERENTIAL PM CDT cirrhosis of liver procedure are in with ascites (HCC) the results section. HEPATIC FUNCTION PANEL Routine 02/22/2019 12:51 Alcoholic Results for this PM CDT cirrhosis of liver procedure are in with ascites (HCC) the results section. BASIC METABOLIC PANEL Routine 02/22/2019 12:51 Alcoholic Results for this (7) PM CDT cirrhosis of liver procedure are in with ascites (HCC) the results section. RHYTHM STRIP - SCAN 02/15/2019 12:12 PM CDT REPORT OF PROCEDURE - 02/14/2019 12:40 ENDOSCOPY SCAN PM CDT RHYTHM STRIP - SCAN 02/14/2019 12:40 PM CDT ECHOCARDIOGRAM REPORT - 02/13/2019 9:21 SCAN PM CDT TRANSFUSION SERVICE 02/13/2019 6:02 REPORT - SCAN PM CDT MR ABDOMEN WITH/WITHOUT STAT 02/13/2019 1:32 Results for this IV CONTRAST PM CDT procedure are in the results section. POCT-GLUCOSE METER Routine 02/13/2019 10:29 Results for this AM CDT procedure are in the results section. POCT-GLUCOSE METER Routine 02/13/2019 7:09 Results for this AM CDT procedure are in the results section. CBC (HEMOGRAM ONLY) Routine 02/13/2019 5:03 Results for this AM CDT procedure are in the results section. PROTHROMBIN TIME/INR Routine 02/13/2019 5:03 Results for this AM CDT procedure are in the results section. PT/APTT Routine 02/13/2019 5:03 Results for this AM CDT procedure are in the results section. HEPATIC FUNCTION PANEL Routine 02/13/2019 5:03 Results for this AM CDT procedure are in the results section. BASIC METABOLIC PANEL Routine 02/13/2019 5:03 Results for this (7) AM CDT procedure are in the results section. PREPARE LEUKO-REDUCED Routine 02/12/2019 11:54 Results for this RBC PM CDT procedure are in the results section. POCT-GLUCOSE METER Routine 02/12/2019 9:07 Results for this PM CDT procedure are in the results section. TRANSFUSION SERVICE 02/12/2019 6:03 REPORT - SCAN PM CDT 2D ECHO W/ DOPPLER SOFIA 02/12/2019 5:35 Results for this (CW/PW/COLOR) PM CDT procedure are in the results section. REPORT OF PROCEDURE - 02/12/2019 5:07 ENDOSCOPY URL PM CDT POCT-GLUCOSE METER Routine 02/12/2019 3:53 Results for this PM CDT procedure are in the results section. POCT-GLUCOSE METER Routine 02/12/2019 12:26 Results for this PM CDT procedure are in the results section. POCT-GLUCOSE METER Routine 02/12/2019 10:18 Results for this AM CDT procedure are in the results section. UPPER ENDOSCOPY 02/12/2019 9:00 Upper GI bleed AM CDT Special Needs egd w/ anes ALPHA FETOPROTEIN (AFP), Routine 02/12/2019 4:43 AM CDT Results for this TUMOR MARKER procedure are in the results section. FERRITIN Routine 02/12/2019 4:43 AM CDT IRON, TIBC, % SAT. (WITHOUT Routine 02/12/2019 4:43 AM CDT Results for this FERRITIN) procedure are in the results section. CBC (HEMOGRAM ONLY) Routine 02/12/2019 4:43 AM CDT PHOSPHORUS Routine 02/12/2019 4:43 AM CDT MAGNESIUM Routine 02/12/2019 4:43 AM CDT PROTHROMBIN TIME/INR Routine 02/12/2019 4:43 AM CDT PT/APTT Routine 02/12/2019 4:43 AM CDT HEPATIC FUNCTION PANEL Routine 02/12/2019 4:43 AM CDT BASIC METABOLIC PANEL (7) Routine 02/12/2019 4:43 AM CDT HEPATITIS A ANTIBODY, IGG Routine 02/11/2019 6:10 PM CDT HEMOGLOBIN AND HEMATOCRIT Routine 02/11/2019 2:18 PM CDT TRANSFUSE LEUKO-REDUCED RED Routine 02/11/2019 1:35 PM CDT BLOOD CELLS TROPONIN I STAT 02/11/2019 8:13 AM CDT US ABDOMINAL WITH DOPPLER SOFIA 02/11/2019 7:59 AM CDT TRANSFUSE LEUKO-REDUCED RED Routine 02/11/2019 6:10 AM CDT BLOOD CELLS AMMONIA Routine 02/11/2019 1:23 AM CDT CBC W/PLT COUNT & AUTO Routine 02/11/2019 12:34 AM CDT Results for this DIFFERENTIAL procedure are in the results section. TYPE AND SCREEN, AUTOMATED Routine 02/11/2019 12:34 AM CDT CBC W/PLT COUNT & AUTO Routine 02/11/2019 12:34 AM CDT Results for this DIFFERENTIAL procedure are in the results section. PHOSPHORUS Routine 02/11/2019 12:34 AM CDT MAGNESIUM Routine 02/11/2019 12:34 AM CDT PROTHROMBIN TIME/INR Routine 02/11/2019 12:34 AM CDT PT/APTT Routine 02/11/2019 12:34 AM CDT HEPATIC FUNCTION PANEL Routine 02/11/2019 12:34 AM CDT BASIC METABOLIC PANEL (7) Routine 02/11/2019 12:34 AM CDT TROPONIN I STAT 02/11/2019 12:34 AM CDT XR CHEST 2 VIEWS STAT 02/10/2019 10:35 PM CDT URINALYSIS W/ REFLEX URINE Routine 02/10/2019 10:17 PM CDT Results for this CULTURE procedure are in the results section. BLOOD CULTURE Routine 02/10/2019 10:15 PM CDT (CELLAVISION MANUAL DIFF) Routine 02/10/2019 10:10 PM CDT CBC W/PLT COUNT & AUTO Routine 02/10/2019 10:10 PM CDT Results for this DIFFERENTIAL procedure are in the results section. ALPHA FETOPROTEIN (AFP), Routine 02/10/2019 10:10 PM CDT Results for this TUMOR MARKER procedure are in the results section. TROPONIN I STAT 02/10/2019 10:10 PM CDT APTT STAT 02/10/2019 10:10 PM CDT PROTHROMBIN TIME/INR STAT 02/10/2019 10:10 PM CDT COMPREHENSIVE METABOLIC STAT 02/10/2019 10:10 PM CDT Results for this PANEL procedure are in the results section. CBC W/PLT COUNT & AUTO STAT 02/10/2019 10:10 PM CDT Results for this DIFFERENTIAL procedure are in the results section. BLOOD CULTURE Routine 02/10/2019 10:10 PM CDT POCT-GLUCOSE METER Routine 02/10/2019 9:23 PM CDT after 03/25/2018 Results CBC with platelet count + automated diff (02/22/2019 12:51 PM CDT)Only the most recent of3 resultswithin the time period is included. WBC 4.4 3.5 - 10.5 K/L [facility] RBC 3.67 (L) 4.63 - 6.08 M/L [facility] Hemoglobin 9.8 (L) 13.7 - 17.5 GM/DL [facility] Hematocrit 33.4 (L) 40.1 - 51.0 % [facility] MCV 91.0 79.0 - 92.[address] [facility] MCH 26.7 25.7 - 32.[address] [facility] MCHC 29.3 (L) 32.3 - 36.5 GM/DL [facility] RDW 25.9 (H) 11.6 - 14.4 % [facility] Platelets 64 (L) 150 - 450 K/CU MM [facility] MPV 9.8 9.4 - 12.[address] [facility] nRBC 0 0 - 0 /[address] [facility] % Neutros 42 % [facility] % Lymphs 38 % [facility] % Monos 14 % [facility] % Eos 5 % [facility] % Baso 1 % [facility] # Neutros 1.87 1.78 - 5.38 K/L [facility] # Lymphs 1.68 1.32 - 3.57 K/L [facility] # Monos 0.61 0.30 - 0.82 K/L [facility] # Eos 0.21 0.04 - 0.54 K/L [facility] # Baso 0.02 0.01 - 0.08 K/L [facility] Immature Granulocytes-Relative 0 0 - 1 % [facility] Specimen Blood Performing Organization Address City/State/Zipcode Phone Number [facility] [address] [place] [address] CENTER Pro-time/INR (02/22/2019 12:51 PM CDT)Only the most recent of5 resultswithin the time period is included. Protime 16.9 (H) 11.9 - 14.[address] [facility] INR 1.5 <=5.9 [facility] Specimen Blood Narrative Performed At Effective 12/22/2018: PT Reference Range [facility] Change New: 11.9-14.2Previous: 11.7-14.7 RECOMMENDED COUMADIN/WARFARIN INR THERAPY RANGES STANDARD DOSE: 2.0-3.0Includes: PROPHYLAXIS for venous thrombosis, systemic embolization; TREATMENT for venous thrombosis and/or pulmonary embolus. HIGH RISK: Target INR is 2.5-3.5 for patients wiht mechanical heart valves. Performing Organization Address [facility] Phone Number [address] [address] [phone] [place] Hepatic function panel (02/22/2019 12:51 PM CDT)Only the most recent of4 resultswithin the time period is included. Protein, Total 7.2 6.0 - 8.3 gm/dL [facility] Albumin 3.3 (L) 3.5 - 5.0 g/dL [facility] Total Bilirubin 2.0 (H) 0.2 - 1.2 mg/dL [facility] Bilirubin, Direct 1.1 (H) 0.1 - 0.5 mg/dL [facility] Alkaline Phosphatase 101 40 - 150 U/L [facility] AST 45 (H) 5 - 34 U/L [facility] ALT 21 6 - 55 U/L [facility] Specimen Blood Narrative Performed At Specimen slightly icteric [facility] Performing Organization Address [facility] Phone Number [address] [address] [place] Basic Metabolic Panel (02/22/2019 12:51 PM CDT)Only the most recent of4 resultswithin the time period is included. Sodium 138 136 - 145 meq/L [facility] Potassium 3.8 3.5 - 5.1 meq/L [facility] Chloride 107 98 - 107 meq/L [facility] CO2 22 22 - 29 meq/L [facility] BUN 10 7 - 21 mg/dL [facility] Creatinine 0.77 0.57 - 1.25 mg/dL [facility] Glucose 128 (H) 70 - 105 mg/dL [facility] Calcium 9.1 8.4 - 10.2 mg/dL [facility] EGFR 98Comment: ESTIMATED GFR IS mL/min/1.73 sq m [facility] NOT ACCURATE [facility] CLEARANCE IN PREDICTING GLOMERULAR FILTRATION RATE. ESTIMATED GFR IS NOT APPLICABLE FOR DIALYSIS PATIENTS. Specimen Blood Narrative Performed At Specimen slightly icteric [facility] Performing Organization Address City/State/Zipcode Phone Number [facility] [address] [place] [address] CENTER RHYTHM STRIP - SCAN (02/15/2019 12:12 PM CDT)Only the most recent of2 resultswithin the time period is included. Narrative Performed At EKG-SCANNED (02/14/2019 12:40 PM CDT) Narrative Performed At ECHOCARDIOGRAM REPORT - SCAN (02/13/2019 9:21 PM CDT) Narrative Performed At TRANSFUSION SERVICE REPORT - SCAN (02/13/2019 6:02 PM CDT)Only the most recent of2 resultswithin the time period is included. Narrative Performed At MR abdomen without & with IV contrast (02/13/2019 1:32 PM CDT) Specimen Narrative Performed At FINAL REPORT [facility] TECHNIQUE: MRI of the abdomen WITHOUT and WITH intravenous contrast. INDICATION: cirrhosis, liver mass. COMPARISON: Ultrasound from 02/11/2019. MRI from 09/25/2017. FINDINGS: LOWER THORAX: Moderate-sized right and small left pleural effusions with atelectasis. LIVER: Nodular, cirrhotic liver. Liver lesions as follow: 1.The previously seen posterior carcinoma in segment IV no longer arterially enhances. This measures 1.9 cm on axial arterial phase image 85, previously 2.8 cm. 2.An arterially enhancing lesion in segment measures 1.5 cm with washout but no pseudocapsule formation. This producing measured 1 cm. 3.Arterially enhancing lesion in segment V measures 0.7 cm on axial arterial phase image 49, unchanged. BILIARY: Sludge and small stones in the gallbladder. The largest stone measures 0.3 cm. The mild thickening the gallbladder wall is likely due to the adjacent cirrhosis. No biliary ductal dilatation or filling defect. SPLEEN: 15.1 cm splenomegaly. PANCREAS: No focal masses or ductal dilatation. ADRENALS: In left adrenal nodule measures 2.1 cm with signal loss on out of phase imaging, consistent with an adenoma. KIDNEYS/URETERS: No hydronephrosis or solid mass lesions. The right lower pole some renal cyst measures 1.1 cm. A left interpolar renal cyst measures 1.2 cm. Interpolar renal lesion hyperintense on T1-weighted imaging and measures 1.6 cm, consistent with a hemorrhagic cyst. PERITONEUM/RETROPERITONEUM: No free fluid. LYMPH NODES: No lymphadenopathy. VESSELS: Mild, irregular atherosclerotic plaque scattered throughout the aorta. Questionable occlusion of the left common iliac artery. Splenorenal shunt. Small esophageal varices. The main portal vein is patent and measures 0.6 cm in diameter. GI TRACT: No distention or wall thickening. BONES AND SOFT TISSUES: Unremarkable. IMPRESSION: 1.The previously seen hepatocellular carcinoma in segment IV no longer arterially enhances. This has either resolved or has been successfully treated. 2.A lesion in segment V has increased in size to 1.5 cm from 1 cm and washes out. This is concerning for but not diagnostic of hepatocellular carcinoma. 3.An additional lesion in segment V measures 0.7 cm and is unchanged, indeterminate. 4.Cirrhosis with sequelae of portal hypertension including splenomegaly, small volume ascites, and small esophageal varices. 5.Sludge and small stones in the gallbladder. The mild gallbladder wall thickening is likely due to the adjacent cirrhosis. 6.There is scattered, irregular atherosclerotic plaque. 7.There is questionable occlusion of the left common iliac artery. There was severe stenosis in this region on the prior examination. However, the more distal portion is not able to be visualized on this examination due to coverage, and this could still be severe stenosis. This could be further evaluated with a CT of the abdomen and pelvis with contrast if clinically necessary. 8.A left adrenal adenoma measures 2.1 cm and is unchanged. No follow-up imaging is recommended. 9.Moderate size right and small left pleural effusions. Signed: Cooper Dimas MD Report Verified Date/Time:02/13/2019 14:11:00 Reading Location: [facility] B1 C013Y CT Body Reading Room Procedure Note Interface, External Ris In - 02/13/2019 2:13 PM CDT FINAL REPORT TECHNIQUE: MRI of the abdomen WITHOUT and WITH intravenous contrast. INDICATION: cirrhosis, liver mass. COMPARISON: Ultrasound from 02/11/2019. MRI from 09/25/2017. FINDINGS: LOWER THORAX: Moderate-sized right and small left pleural effusions with atelectasis. LIVER: Nodular, cirrhotic liver. Liver lesions as follow: 1.The previously seen posterior carcinoma in segment IV no longer arterially enhances. This measures 1.9 cm on axial arterial phase image 85, previously 2.8 cm. 2.An arterially enhancing lesion in segment measures 1.5 cm with washout but no pseudocapsule formation. This producing measured 1 cm. 3.Arterially enhancing lesion in segment V measures 0.7 cm on axial arterial phase image 49, unchanged. BILIARY: Sludge and small stones in the gallbladder. The largest stone measures 0.3 cm. The mild thickening the gallbladder wall is likely due to the adjacent cirrhosis. No biliary ductal dilatation or filling defect. SPLEEN: 15.1 cm splenomegaly. PANCREAS: No focal masses or ductal dilatation. ADRENALS: In left adrenal nodule measures 2.1 cm with signal loss on out of phase imaging, consistent with an adenoma. KIDNEYS/URETERS: No hydronephrosis or solid mass lesions. The right lower pole some renal cyst measures 1.1 cm. A left interpolar renal cyst measures 1.2 cm. Interpolar renal lesion hyperintense on T1-weighted imaging and measures 1.6 cm, consistent with a hemorrhagic cyst. PERITONEUM/RETROPERITONEUM: No free fluid. LYMPH NODES: No lymphadenopathy. VESSELS: Mild, irregular atherosclerotic plaque scattered throughout the aorta. Questionable occlusion of the left common iliac artery. Splenorenal shunt. Small esophageal varices. The main portal vein is patent and measures 0.6 cm in diameter. GI TRACT: No distention or wall thickening. BONES AND SOFT TISSUES: Unremarkable. IMPRESSION: 1.The previously seen hepatocellular carcinoma in segment IV no longer arterially enhances. This has either resolved or has been successfully treated. 2.A lesion in segment V has increased in size to 1.5 cm from 1 cm and washes out. This is concerning for but not diagnostic of hepatocellular carcinoma. 3.An additional lesion in segment V measures 0.7 cm and is unchanged, indeterminate. 4.Cirrhosis with sequelae of portal hypertension including splenomegaly, small volume ascites, and small esophageal varices. 5.Sludge and small stones in the gallbladder. The mild gallbladder wall thickening is likely due to the adjacent cirrhosis. 6.There is scattered, irregular atherosclerotic plaque. 7.There is questionable occlusion of the left common iliac artery. There was severe stenosis in this region on the prior examination. However, the more distal portion is not able to be visualized on this examination due to coverage, and this could still be severe stenosis. This could be further evaluated with a CT of the abdomen and pelvis with contrast if clinically necessary. 8.A left adrenal adenoma measures 2.1 cm and is unchanged. No follow-up imaging is recommended. 9.Moderate size right and small left pleural effusions. Signed: Cooper Dimas MD Report Verified Date/Time: 02/13/2019 14:11:00 Reading Location: [facility] C013Y CT Body Reading Room Performing Organization Address City/State/Zipcode Phone Number [facility] POC-Glucose meter (02/13/2019 10:29 AM CDT)Only the most recent of7 resultswithin the time period is included. POC-Glucose Meter 160 (H)Comment: TESTED AT 70 - 110 mg/dL [place] [id number] [facility] [id number] Specimen Blood Performing Organization Address City/State/Zipcode Phone Number [address] [address] [phone] CENTER PT/aPTT (02/13/2019 5:03 AM CDT)Only the most recent of3 resultswithin the time period is included. Protime 20.7 (H) 11.9 - 14.[address] [facility] INR 1.9 <=5.9 [facility] PTT 46.6 (H) 22.5 - 36.[address] [facility] Specimen Blood Narrative Performed At Effective 12/22/2018: PT Reference Range [facility] Change New: 11.9-14.2Previous: 11.7-14.7 RECOMMENDED COUMADIN/WARFARIN INR THERAPY RANGES STANDARD DOSE: 2.0-3.0Includes: PROPHYLAXIS for venous thrombosis, systemic embolization; TREATMENT for venous thrombosis and/or pulmonary embolus. HIGH RISK: Target INR is 2.5-3.5 for patients wiht mechanical heart valves. Performing Organization Address City/[facility] Phone Number [facility] [address] [place] [address] CENTER CBC (Hemogram only) (02/13/2019 5:03 AM CDT)Only the most recent of2 resultswithin the time period is included. WBC 2.9 (L) 3.5 - 10.5 K/L [facility] RBC 2.76 (L) 4.63 - 6.08 M/L [facility] Hemoglobin 7.3 (L) 13.7 - 17.5 GM/DL [facility] Hematocrit 23.5 (L) 40.1 - 51.0 % [facility] MCV 85.1 79.0 - 92.[address] [facility] MCH 26.4 25.7 - 32.[address] [facility] MCHC 31.1 (L) 32.3 - 36.5 GM/DL [facility] RDW 19.4 (H) 11.6 - 14.4 % [facility] Platelets 73 (L) 150 - 450 K/CU MM [facility] MPV 10.3 9.4 - 12.[address] [facility] nRBC 0 0 - 0 /[address] [facility] Specimen Blood Performing Organization Address City/State/Zipcode Phone Number [facility] [address] [place] [address] CENTER Prepare Leuko-Red RBC (02/12/2019 11:54 PM CDT) CROSSMATCH COMPATIBLE SAFETRACE TX Unit ABO O Pos SAFETRACE TX UNIT NUMBER [id number] SAFETRACE TX Status TX_TIMEINCHART SAFETRACE TX Blood Bank Product RED BLOOD CELLS SAFETRACE TX PRODUCT CODE [id number] SAFETRACE TX CROSSMATCH COMPATIBLE SAFETRACE TX Unit ABO O Pos SAFETRACE TX UNIT NUMBER [id number] SAFETRACE TX Status TX_TIMEINCHART SAFETRACE TX Blood Bank Product RED BLOOD CELLS SAFETRACE TX PRODUCT CODE [id number] SAFETRACE TX Specimen Other Performing Organization Address City/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 Clinical History DM;HTN;CANCER. HGB 7.2 HCT 23.5 % Contrast Medium: Definity. Height: 72 inches Weight: 72.57 kg (160 lbs) BSA: 1.94 m^2 BMI: 21.7 kg/m^2 HR: 68 bpm BP: 120/50 mmHg Summary The left ventricle is chamber size (by vol index) is moderately enlarged (male - LVED vol 90-100ml.m2) . The following segment(s) appear akinetic: apex, apical anterior, apical lateral, mid-distal anteroseptum . The other segments contract normally. Global LV systolic function mildly reduced . LVEF by Bolanos's method of disk assessment is mildly reduced (40-44%) . The LVEF was measured using Bolanos's bi-plane method of disk . LV endocardium is adequately visualized with IV ultrasound enhancing agent. Mild aortic stenosis. Mild tricuspid regurgitation. Estimated peak systolic PA pressure is 45-50 mmHg . The estimated RA pressure by IVC dynamics 16-20mmHg . Aortic root size (SInus of Valsalva diameter) is borderline dilated . Proximal ascending aorta size mildly dilated . 3.7 cm Previous Study In comparison with the prior exam 09-19-17 the following changes are noted: wall motion abnormalities are new, is new, LV systolic function has declined . Signature Findings Rhythm/BPRegular sinus rhythm during the exam. Left Ventricle The left ventricle is chamber size (by vol index) is moderately enlarged (male - LVED vol 90 -100ml.m2) . Mild septal hypertrophy is present. Th e following segment(s) appear akinetic: apex, ap ical anterior, apical lateral, mid-distal an teroseptum . The other segments contract no rmally. Global LV systolic function mildly re duced . LVEF by Bolanos's method of disk as sessment is mildly reduced (40-44%) . The LVEF wa s measured using Bolanos's bi-plane method of di ju . LV endocardium is adequately visualized with IV ultrasound enhancing agent. Degree of diastolic dy sfunction (LAP assessment) is inconclusive due to mi tral annular calcification . Left AtriumLA size is moderately enlarged (42-48 ml/m2) . Right VentricleThe right ventricular chamber size and systolic fu nction are within normal limits. Right Atrium RA cavity size appears mildly enlarged . Aortic Valve [id number] AoV cusp calcification. Ao V cusp mobility is decreased . Mi ld aortic stenosis. Ao V area at rest by continuity equation is in the ra nge of 1.61 cm2. Ao V area by planimtery is in the range of 1.63 cm2. Mitral Valve Mild MV leaflet thickening. Mi ld mitral annular calcification. Mi ld mitral regurgitation. Tricuspid ValveMild tricuspid regurgitation. Es timated peak systolic PA pressure is 45-50 mmHg . Pulmonic Valve Normal PV structure appears normal by available vi ews. AortaAortic root size (SInus of Valsalva diameter) is issa rderline dilated . Proximal ascending aorta size mi ldly dilated . 3.7 cm PericardiumNo significant pericardial effusion is visualized. IVC/SVC/PA/PV/PleuralThe inferior vena cava size is increased . Th e estimated RA pressure by IVC dynamics 16-20mmHg . Chambers/Structures Left Atrium LA Volume: 89.78 ml LA Area: 22.24 cm^2 LA Vol. Index: 46 ml/m^2 Left Ventricle LVIDd: 5.01 cm LV Septum Diastolic: 1.35 cm LV PW Diastolic: 1.05 cm LVEDV Bolanos's:181.98 ml LVESV Bolanos's:104.94 ml LVEF Bolanos's: 42.3 %LVEDV I: 94 ml/m^2 LVESVI: 54 ml/m^2 LVOT Diameter: 1.94 cm Right Ventricle RV Diast Dim.: 3.43 cm TAPS E: 2.08 cm Aorta Ao Root S of Rosio.: 3.5 cmAscending Aorta: 3.68 cm Doppler/Quantitative Measurements Aortic Valve Peak Velocity: 1.82 m/sMean Velocity: 1.3 m/s Peak Gradient: 13.18 mmHgMean Gradient: 7.57 mmHg AV Area (continuity): 1.61 cm^2Area (2D): 1.63 cm^2 AV VTI: 45.9 cm AV DVI: 0.55 LVOT Peak Velocity: 1.01 m/s Peak Gradient: 4.05 mmHg Mean Velocity: 0.72 m/s Mean Gradient: 2.31 mmHg LVOT Diameter: 1.94 cmLVOT VTI: 25.05 cm LVOT Area: 2.96 cm^2LVOT SV:74.01 ml LVOT CO: 5.03 l/min LVOT CI: 2.59 l/min/m^2 Tricuspid Valve TR Velocity: 2.78 m/s TR Gradient: 30.95 mmHg Procedure Note Interface, External Ris In - 02/13/2019 5:43 PM CDT Transthoracic Echocardiography Report (TTE) Demographics Patient Name JUSTUS TOMPKINS Date of Study 02/12/2019 ABBY LÓPZE Gender Male Visit Number [id number] Race Unknown Room Number 943 Number Date of 1940 Referring Physician SMILEY Greene Age 78 year(s) 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 Clinical History DM;HTN;CANCER. HGB 7.2 HCT 23.5 % Contrast Medium: Definity. Height: 72 inches Weight: 72.57 kg (160 lbs) BSA: 1.94 m^2 BMI: 21.7 kg/m^2 HR: 68 bpm BP: 120/50 mmHg Summary The left ventricle is chamber size (by vol index) is moderately enlarged (male - LVED vol 90-100ml.m2) . The following segment(s) appear akinetic: apex, apical anterior, apical lateral, mid-distal anteroseptum . The other segments contract normally. Global LV systolic function mildly reduced . LVEF by Bolanos's method of disk assessment is mildly reduced (40-44%) . The LVEF was measured using Bolanos's bi-plane method of disk . LV endocardium is adequately visualized with IV ultrasound enhancing agent. Mild aortic stenosis. Mild tricuspid regurgitation. Estimated peak systolic PA pressure is 45-50 mmHg . The estimated RA pressure by IVC dynamics 16-20mmHg . Aortic root size (SInus of Valsalva diameter) is borderline dilated . Proximal ascending aorta size mildly dilated . 3.7 cm Previous Study In comparison with the prior exam 224-18 the following changes are noted: wall motion abnormalities are new, is new, LV systolic function has declined . Signature Findings Rhythm/BP Regular sinus rhythm during the exam. Left Ventricle The left ventricle is chamber size (by vol index) is moderately enlarged (male - LVED vol 90-100ml.m2) . Mild septal hypertrophy is present. The following segment(s) appear akinetic: apex, apical anterior, apical lateral, mid-distal anteroseptum . The other segments contract normally. Global LV systolic function mildly reduced . LVEF by Bolanos's method of disk assessment is mildly reduced (40-44%) . The LVEF was measured using Bolanos's bi-plane method of disk . LV endocardium is adequately visualized with IV ultrasound enhancing agent. Degree of diastolic dysfunction (LAP assessment) is inconclusive due to mitral annular calcification . Left Atrium LA size is moderately enlarged (42-48 ml/m2) . Right Ventricle The right ventricular chamber size and systolic function are within normal limits. Right Atrium RA cavity size appears mildly enlarged . Aortic Valve Vxqj-oo-mhbrozrm AoV cusp calcification. AoV cusp mobility is decreased . Mild aortic stenosis. AoV area at rest by continuity equation is in the range of 1.61 cm2. AoV area by planimtery is in the range of 1.63 cm2. Mitral Valve Mild MV leaflet thickening. Mild mitral annular calcification. Mild mitral regurgitation. Tricuspid Valve Mild tricuspid regurgitation. Estimated peak systolic PA pressure is 45-50 mmHg . Pulmonic Valve Normal PV structure appears normal by available views. Aorta Aortic root size (SInus of Valsalva diameter) is borderline dilated . Proximal ascending aorta size mildly dilated . 3.7 cm Pericardium No significant pericardial effusion is visualized. IVC/SVC/PA/PV/Pleural The inferior vena cava size is increased . The estimated RA pressure by IVC dynamics 16-20mmHg . Chambers/Structures Left Atrium LA Volume: 89.78 ml LA Area: 22.24 cm^2 LA Vol. Index: 46 ml/m^2 Left Ventricle LVIDd: 5.01 cm LV Septum Diastolic: 1.35 cm LV PW Diastolic: 1.05 cm LVEDV Bolanos's:181.98 ml LVESV Bolanos's:104.94 ml LVEF Bolanos's: 42.3 % LVEDVI: 94 ml/m^2 LVESVI: 54 ml/m^2 LVOT Diameter: 1.94 cm Right Ventricle RV Diast Dim.: 3.43 cm TAPSE: 2.08 cm Aorta Ao Root S of Rosio.: 3.5 cm Ascending Aorta: 3.68 cm Doppler/Quantitative Measurements Aortic Valve Peak Velocity: 1.82 m/s Mean Velocity: 1.3 m/s Peak Gradient: 13.18 mmHg Mean Gradient: 7.57 mmHg AV Area (continuity): 1.61 cm^2 Area (2D): 1.63 cm^2 AV VTI: 45.9 cm AV DVI: 0.55 LVOT Peak Velocity: 1.01 m/s Peak Gradient: 4.05 mmHg Mean Velocity: 0.72 m/s Mean Gradient: 2.31 mmHg LVOT Diameter: 1.94 cm LVOT VTI: 25.05 cm LVOT Area: 2.96 cm^2 LVOT SV:74.01 ml LVOT CO: 5.03 l/min LVOT CI: 2.59 l/min/m^2 Tricuspid Valve TR Velocity: 2.78 m/s TR Gradient: 30.95 mmHg Performing Organization Address City/State/Zipcode Phone Number [facility] REPORT OF PROCEDURE - ENDOSCOPY URL (02/12/2019 5:07 PM CDT) Narrative Performed At Iron, TIBC, % sat. (without ferritin) (02/12/2019 4:43 AM CDT) Iron 43.0 40.0 - 160.0 ug/dL [facility] TIBC 338 250 - 450 ug/dL [facility] Iron % Saturation 13 (L) 20 - 55 % [facility] Specimen Blood Performing Organization Address [facility]/[place] [facility] Phone Number [address] [address] [phone] [place] Alpha fetoprotein (AFP), tumor marker (02/12/2019 4:43 AM CDT)Only the most recent of2 resultswithin the time period is included. Alpha-Fetoprotein 362.4 (H) <10.0 ng/mL [facility] Specimen Blood Performing Organization Address [facility] Phone Number [address] [address] [phone] CENTER Phosphorus (02/12/2019 4:43 AM CDT)Only the most recent of2 resultswithin the time period is included. Phosphorus 2.6 2.3 - 4.7 mg/dL [facility] Specimen Blood Performing Organization Address [facility] Phone Number [address] [address] CENTER Magnesium (02/12/2019 4:43 AM CDT)Only the most recent of2 resultswithin the time period is included. Magnesium 1.9 1.6 - 2.6 mg/dL [facility] Specimen Blood Performing Organization Address [facility] [facility] Phone Number [address] [address] [phone] [place] Ferritin (02/12/2019 4:43 AM CDT) Ferritin 33 5 - 275 ng/mL [facility] Specimen Blood Performing Organization Address [facility] Phone Number [address] [address] [phone] [place] Hepatitis A antibody, IgG (02/11/2019 6:10 PM CDT) Hep A IgG Nonreactive Nonreactive [facility] Specimen Blood Performing Organization Address [facility]/[place] [facility] Phone Number [facility] [address] [place] [place], [place] [phone] [place] Hemoglobin and hematocrit (02/11/2019 2:18 PM CDT) Hemoglobin 7.6 (L) 13.7 - 17.5 GM/DL [facility] Hematocrit 25.6 (L) 40.1 - 51.0 % [facility] Specimen Blood Performing Organization Address [facility]/[place] [facility] Phone Number [facility] [address] [place], [place] [phone] [place] Transfuse Leuko-Red RBC (02/11/2019 1:35 PM CDT)Only the most recent of3 resultswithin the time period is included.Troponin I (02/11/2019 8:13 AM CDT) Only the most recent of3 resultswithin the time period is included. Troponin I 0.10 (H) 0.00 - 0.03 ng/mL [facility] Specimen Blood Narrative Performed At Troponin I (TnI) levels must be interpreted [facility] in the context of the presenting symptoms and the clinical findings. Elevated TnI levels indicate myocardial damage, but are not specific for ischemic heart disease. Elevated TnI levels are seen in patients with other cardiac conditions (including myocarditis and congestive heart failure), and slight TnI elevations occur in patients with other conditions, including sepsis, renal failure, acidosis, acute neurological disease, and persistent tachyarrhythmia. Performing Organization Address [facility]/[place] [facility] Phone Number [facility] [address] [place] [place], [place] [phone] [place] US abdominal with doppler (02/11/2019 7:59 AM CDT) Specimen Narrative Performed At FINAL REPORT Finjan Ultrasound of the Abdomen, 02/11/2019. Clinical History:Abdominal pain. Cirrhosis. Comparison: MRI, 09/25/2017. Discussion: Sonographic evaluation of the abdomen is performed.In addition, color Doppler and spectral wave form analysis evaluations of the abdominal vasculature are performed. Liver: Cirrhotic morphology. No mass visualized. Biliary tree:Common duct 0.6 mm.No biliary dilatation. Gallbladder:Cholelithiasis.No wall thickening.No pericholecystic fluid.Absent sonographic Coffman sign. Pancreas: Head, body, and proximal tail unremarkable. Ascites:None. Spleen:13.2 cm in length, upper limits of normal in size. Kidneys: Right kidney 11.9 cm in length, normal in size, with cortical thickness of 1.4 cm.Left kidney 11.5 cm in length, normal in size, with cortical thickness of 1.7 cm.Normal cortical echogenicity.Anechoic cyst at the lower pole right kidney measuring 16 mm.No shadowing calculus.No hydronephrosis. IVC/Aorta:Segments partially seen.Unremarkable. Doppler: Doppler interrogation of the liver demonstrates a main portal vein diameter measuring 0.9 cm with a peak systolic velocity of 30 cm/sec. There is hepatopetal and hepatofugal directionality of flow in the main portal vein. No thrombus is visualized however. There is hepatofugal flow in portions of the splenic vein. The resistive indices in the proper, right and left hepatic arteries are 0.8, 0.8 and 0.8 respectively. Outflow with appropriate directionality is seen in the IVC, hepatic venous confluence as well as the right, middle and left hepatic veins. Impression: 1. Cirrhotic liver. No mass. 2. Hepatopedal and hepatofugal directionality of flow in the main portal vein without evidence for thrombus at this time. Signed: Tere Joseph MD Report Verified Date/Time:02/11/2019 13:40:35 Reading Location: [address] Radiology Reading Room Procedure Note Interface, External Ris In - 02/11/2019 1:42 PM CDT FINAL REPORT Ultrasound of the Abdomen, 02/11/2019. Clinical History: Abdominal pain. Cirrhosis. Comparison: MRI, 09/25/2017. Discussion: Sonographic evaluation of the abdomen is performed. In addition, color Doppler and spectral wave form analysis evaluations of the abdominal vasculature are performed. Liver: Cirrhotic morphology. No mass visualized. Biliary tree: Common duct 0.6 mm. No biliary dilatation. Gallbladder: Cholelithiasis. No wall thickening. No pericholecystic fluid. Absent sonographic Coffman sign. Pancreas: Head, body, and proximal tail unremarkable. Ascites: None. Spleen: 13.2 cm in length, upper limits of normal in size. Kidneys: Right kidney 11.9 cm in length, normal in size, with cortical thickness of 1.4 cm. Left kidney 11.5 cm in length, normal in size, with cortical thickness of 1.7 cm. Normal cortical echogenicity. Anechoic cyst at the lower pole right kidney measuring 16 mm. No shadowing calculus. No hydronephrosis. IVC/Aorta: Segments partially seen. Unremarkable. Doppler: Doppler interrogation of the liver demonstrates a main portal vein diameter measuring 0.9 cm with a peak systolic velocity of 30 cm/sec. There is hepatopetal and hepatofugal directionality of flow in the main portal vein. No thrombus is visualized however. There is hepatofugal flow in portions of the splenic vein. The resistive indices in the proper, right and left hepatic arteries are 0.8, 0.8 and 0.8 respectively. Outflow with appropriate directionality is seen in the IVC, hepatic venous confluence as well as the right, middle and left hepatic veins. Impression: 1. Cirrhotic liver. No mass. 2. Hepatopedal and hepatofugal directionality of flow in the main portal vein without evidence for thrombus at this time. Signed: Tere Joseph MD Report Verified Date/Time: 02/11/2019 13:40:35 Reading Location: [address] Radiology Reading Room Performing Organization Address City/[facility]/Zipcode Phone Number GE RIS Ammonia (02/11/2019 1:23 AM CDT) Ammonia 63 18 - 72 mol/L [facility] Specimen Blood Performing Organization Address City/State/Zipcode Phone Number [address] [address] [phone] CENTER Type and screen, automated (02/11/2019 12:34 AM CDT) ABO/RH AUTOMATED (BEAKER) O POSITIVE [facility] Ab Scrn NEGATIVE [facility] Specimen Blood Performing Organization Address City/[facility]/Zipcode Phone Number [facility] [address] [place] [address] XR chest 2 views (02/10/2019 10:35 PM CDT) Specimen Narrative Performed At FINAL REPORT RIS History: Pleural effusions. FINDINGS: Compared with 11/20 2017, the heart and mediastinum are stable. Lung volumes have decreased slightly. There is increased opacity in the lung bases, possibly atelectasis or early pneumonia. Blunting of the costophrenic sulci may represent small pleural effusions. Lungs are otherwise clear. No pneumothorax. Bones are unremarkable. IMPRESSION: 1. Low lung volumes and probable bilateral lower lobe atelectasis. 2. Possible small bilateral pleural effusions. Signed: Estrella Wagner MD Report Verified Date/Time:02/10/2019 22:59:29 Reading Location: [facility] Diagnostic Imaging Reading Room - [place] [id number] Procedure Note Interface, External Ris In - 02/10/2019 11:01 PM CDT FINAL REPORT History: Pleural effusions. FINDINGS: Compared with 11/20 2017, the heart and mediastinum are stable. Lung volumes have decreased slightly. There is increased opacity in the lung bases, possibly atelectasis or early pneumonia. Blunting of the costophrenic sulci may represent small pleural effusions. Lungs are otherwise clear. No pneumothorax. Bones are unremarkable. IMPRESSION: 1. Low lung volumes and probable bilateral lower lobe atelectasis. 2. Possible small bilateral pleural effusions. Signed: Estrella Wagner MD Report Verified Date/Time: 02/10/2019 22:59:29 Reading Location: [facility] Diagnostic Imaging Reading Room - [place] [id number] Performing Organization Address City/State/Zipcode Phone Number RIS Urinalysis w/Microscopic + Reflex to Culture (02/10/2019 10:17 PM CDT) Color, UA Yellow [facility] Clarity, UA Clear [facility] Specific [place], UA 1.013 1.001 - 1.035 [facility] pH, UA 6.0 5.0 - 8.0 [facility] Protein, UA Negative Negative [facility] Glucose, UA Negative Negative [facility] Ketones, UA 10 mg/dL (A) Negative [facility] Bilirubin, UA Negative Negative [facility] Blood, UA Negative Negative [facility] Nitrite, UA Negative Negative [facility] Leukocytes, UA Negative Negative [facility] Urobilinogen, UA 0.2 0.2 - 1.0 mg/dL [facility] RBC, UA 0 /HPF [facility] WBC, UA 1 /HPF [facility] Mucus Rare [facility] Specimen Source [facility] Specimen Urine Performing Organization Address City/State/Zipcode Phone Number [address] [address] [phone] [place] Blood Culture - Routine (Right Venipuncture) (02/10/2019 10:15 PM CDT)Only the most recent of2 resultswithin the time period is included. Result No growth in [address] [facility] Specimen Blood Performing Organization Address City/State/Zipcode Phone Number [facility] [address] [place] [phone] [place] Manual Differential (02/10/2019 10:10 PM CDT) % Neutros 57 % [facility] % Lymphs 24 % [facility] % Monos 10 % [facility] % Eos 7 % [facility] % Bands 2 0 - 10 % [facility] # Neutros 2.28 1.78 - 5.38 K/ul [facility] # Lymphs 0.96 (L) 1.32 - 3.57 K/ul [facility] # Monos 0.40 0.30 - 0.82 K/uL [facility] # Eos 0.28 0.04 - 0.54 K/uL [facility] # Bands 0.08 0.00 - 0.80 K/uL [facility] Total Counted 100 [facility] Giant Platelet Present [facility] Vacuolated Neutrophils Present [facility] Polychromasia 1+ few [facility] Hypochromia 2+ moderate [facility] Anisocytosis 3+ many [facility] Microcytes 1+ few [facility] Macrocytes 1+ few [facility] Poikilocytes 1+ few [facility] Spherocytes 1+ few [facility] Elliptocytes 1+ few [facility] Tear Drop Cells 1+ few [facility] Artifact Present [facility] Helmet Cells 1+ few [facility] Platelet Conc Decreased [facility] Specimen Blood Narrative Performed At Received comment: [facility] User comments: Slide comments: Performing Organization Address City/State/Zipcode Phone Number [facility] [address] [place] [address] CENTER aPTT (02/10/2019 10:10 PM CDT) PTT 36.6 (H) 22.5 - 36.[address] [facility] Specimen Blood Performing Organization Address City/State/Zipcode Phone Number [facility] [address] [place] [address] CENTER Comprehensive metabolic panel (02/10/2019 10:10 PM CDT) Protein, Total 6.2 6.0 - 8.3 gm/dL [facility] Albumin 3.1 (L) 3.5 - 5.0 g/dL [facility] Alkaline Phosphatase 65 40 - 150 U/L [facility] Total Bilirubin 2.9 (H) 0.2 - 1.2 mg/dL [facility] Sodium 136 136 - 145 meq/L [facility] Potassium 3.4 (L) 3.5 - 5.1 meq/L [facility] Chloride 108 (H) 98 - 107 meq/L [facility] CO2 19 (L) 22 - 29 meq/L [facility] BUN 9 7 - 21 mg/dL [facility] Creatinine 0.69 0.57 - 1.25 mg/dL [facility] Glucose 139 (H) 70 - 105 mg/dL [facility] [facility] Calcium 8.3 (L) 8.4 - 10.2 mg/dL [facility] AST 32 5 - 34 U/L [facility] ALT 14 6 - 55 U/L [facility] EGFR 111Comment: ESTIMATED mL/min/1.73 sq m [facility] GFR IS NOT ACCURATE [facility] CREATININE CLEARANCE IN PREDICTING GLOMERULAR FILTRATION RATE. ESTIMATED GFR IS NOT APPLICABLE FOR DIALYSIS PATIENTS. Specimen Blood Narrative Performed At Specimen slightly icteric [facility] Performing Organization Address City/[facility]/Zipcode Phone Number [facility] [address] [place] [address] [phone] CENTER after 03/25/2018 Insurance Payer Benefit Plan / Group Subscriber ID Type Phone Address MEDICARE MEDICARE A B xxxxxxxxxxx Medicare Advance Directives For more information, please contact:[address] [phone] Code Status Date Activated Date Inactivated Comments Full Code 02/10/2019 9:23 PM 02/13/2019 6:01 PM This code status was determined by: Patient Full Code 09/18/2017 2:28 PM 09/25/2017 8:49 PM This code status was determined by: Patient
--- OUTSIDE RECORDS SUMMARY | 2019-03-26 16:38 | XMS REPORT ---
:1940 [facility] Address [address] [place] [address] [address] [place] [address] Care Team Providers Name Role Phone BRIANNE BEARDEN Unavailable Unavailable CARLOS MANUEL BOWSER Unavailable Unavailable OCHOA, ROSALVA ESSENCE Unavailable Unavailable Problems This patient has no known problems. Allergies, Adverse Reactions, Alerts This patient has no known allergies or adverse reactions. Medications This patient has no known medications. Results Test Description Test Time Test Comments Text Results Atomic Results Result Comments BASIC METABOLIC PANEL 2019-02-22 13:53:00 Test Item Value Reference Range Comments SODIUM (BEAKER) (test 138 meq/L 136-145 zzny=567) POTASSIUM (BEAKER) (test 3.8 meq/L 3.5-5.1 awyj=114) CHLORIDE (BEAKER) (test 107 meq/L 98-107 hjav=091) CO2 (BEAKER) (test trhn=012) 22 meq/L 22-29 BLOOD UREA NITROGEN (BEAKER) 10 mg/dL 7-21 (test zeia=101) CREATININE (BEAKER) (test 0.77 mg/dL 0.57-1.25 ziym=239) GLUCOSE RANDOM (BEAKER) 128 mg/dL 70-105 (test hcow=334) CALCIUM (BEAKER) (test 9.1 mg/dL 8.4-10.2 iwwr=376) EGFR (BEAKER) (test 98 mL/min/1.73 sq m ESTIMATED GFR IS NOT viza=2709) ACCURATE CREATININE CLEARANCE IN PREDICTING GLOMERULAR FILTRATION RATE. ESTIMATED GFR IS NOT APPLICABLE FOR DIALYSIS PATIENTS. Specimen slightly ictericHEPATIC FUNCTION [id number] 13:53:00 Test Item Value Reference Range Comments TOTAL PROTEIN (BEAKER) (test uqqf=496) 7.2 gm/dL 6.0-8.3 ALBUMIN (BEAKER) (test teed=7593) 3.3 g/dL 3.5-5.0 BILIRUBIN TOTAL (BEAKER) (test qvpm=841) 2.0 mg/dL 0.2-1.2 BILIRUBIN DIRECT (BEAKER) (test sjqi=526) 1.1 mg/dL 0.1-0.5 ALKALINE PHOSPHATASE (BEAKER) (test fmzq=655) 101 U/L 40-150 AST (SGOT) (BEAKER) (test wjqe=858) 45 U/L 5-34 ALT (SGPT) (BEAKER) (test zysf=880) 21 U/L 6-55 Specimen slightly ictericPROTHROMBIN [id number] 13:35:00 Test Item Value Reference Range Comments PROTIME (BEAKER) (test qlvu=670) 16.9 seconds 11.9-14.2 INR (BEAKER) (test qxvp=839) 1.5 <=5.9 Effective 12/22/2018: PT Reference Range ChangeNew: 11.9-14.2 Previous: 11.7- 14.7RECOMMENDED COUMADIN/WARFARIN INR THERAPY RANGESSTANDARD DOSE: 2.0-3.0 Includes: PROPHYLAXIS for venous thrombosis, systemic embolization; TREATMENT for venous thrombosis and/or pulmonary embolus.HIGH RISK: Target INR is2.5-3.5 for patients wiht mechanical heart valves.CBC W/PLT COUNT & AUTO [id number] 13:29:00 Test Item Value Reference Range Comments WHITE BLOOD CELL COUNT (BEAKER) (test ptue=063) 4.4 K/ L 3.5-10.5 RED BLOOD CELL COUNT (BEAKER) (test zjrd=888) 3.67 M/ L 4.63-6.08 HEMOGLOBIN (BEAKER) (test itlh=024) 9.8 GM/DL 13.7-17.5 HEMATOCRIT (BEAKER) (test lelt=107) 33.4 % 40.1-51.0 MEAN CORPUSCULAR VOLUME (BEAKER) (test ldoq=765) 91.0 fL 79.0-92.2 MEAN CORPUSCULAR HEMOGLOBIN (BEAKER) (test 26.7 pg 25.7-32.2 xgie=331) MEAN CORPUSCULAR HEMOGLOBIN CONC (BEAKER) (test 29.3 GM/DL 32.3-36.5 pdxm=533) RED CELL DISTRIBUTION WIDTH (BEAKER) (test 25.9 % 11.6-14.4 dlbc=312) PLATELET COUNT (BEAKER) (test vkqi=889) 64 K/CU MM 150-450 MEAN PLATELET VOLUME (BEAKER) (test zvdc=683) 9.8 fL 9.4-12.4 NUCLEATED RED BLOOD CELLS (BEAKER) (test 0 /100 WBC 0-0 mstv=633) NEUTROPHILS RELATIVE PERCENT (BEAKER) (test 42 % hmiy=709) LYMPHOCYTES RELATIVE PERCENT (BEAKER) (test 38 % gqmz=311) MONOCYTES RELATIVE PERCENT (BEAKER) (test 14 % gypj=893) EOSINOPHILS RELATIVE PERCENT (BEAKER) (test 5 % vyci=010) BASOPHILS RELATIVE PERCENT (BEAKER) (test 1 % vrzc=489) NEUTROPHILS ABSOLUTE COUNT (BEAKER) (test 1.87 K/ L 1.78-5.38 lymg=318) LYMPHOCYTES ABSOLUTE COUNT (BEAKER) (test 1.68 K/ L 1.32-3.57 jdgh=360) MONOCYTES ABSOLUTE COUNT (BEAKER) (test zdnj=892) 0.61 K/ L 0.30-0.82 EOSINOPHILS ABSOLUTE COUNT (BEAKER) (test 0.21 K/ L 0.04-0.54 hohe=984) BASOPHILS ABSOLUTE COUNT (BEAKER) (test cdnp=545) 0.02 K/ L 0.01-0.08 IMMATURE GRANULOCYTES-RELATIVE PERCENT (BEAKER) 0 % 0-1 (test bohm=2077) BLOOD [id number] 02:00:00 Test Item Value Reference Range Comments CULTURE (BEAKER) (test oyxx=7543) No growth in 5 days BLOOD [id number] 02:00:00 Test Item Value Reference Range Comments CULTURE (BEAKER) (test hcza=5701) No growth in 5 days MR, ABDOMEN, [id number] 14:11:00MRI abdomen liver protocol Patient pending dischargeFINAL REPORT TECHNIQUE: MRI of the abdomen WITHOUT and WITH intravenous contrast. INDICATION: cirrhosis, liver mass. COMPARISON: Ultrasound from 02/11/2019. MRI from 09/25/2017. FINDINGS: LOWER THORAX: Moderate-sized right and small left pleural effusions with atelectasis. LIVER: Nodular, cirrhotic liver. Liver lesions as follow:1.The previously seen posterior carcinoma in segment IV no longer arterially enhances. This measures 1.9 cm on axial arterial phase image 85, previously2.8 cm.2.An arterially enhancing lesion in segment measures 1.5 cm with washout but no pseudocapsule formation. This producing measured 1 cm.3.Arterially enhancing lesion in segment V measures 0.7 cm on axial arterial phase image 49, unchanged. BILIARY: Sludge and small stones in the gallbladder. The largest stone measures 0.3 cm. The mild thickening the gallbladder wall is likely due to the adjacent cirrhosis. No biliary ductal dilatation or filling defect.SPLEEN : 15.1 cm splenomegaly.PANCREAS: No focal masses or ductal dilatation. ADRENALS : In left adrenal nodule measures 2.1 cm with signal loss on out of phase imaging, consistent with an adenoma.KIDNEYS/URETERS: No hydronephrosis or solid mass lesions. The right lower pole some renal cyst measures 1.1 cm. A left interpolar renal cyst measures 1.2 cm. Interpolar renal lesion hyperintense on T1-weighted imaging and measures 1.6 cm, consistent with a hemorrhagic cyst. PERITONEUM/RETROPERITONEUM: No free fluid.LYMPH NODES: No lymphadenopathy.VESSELS: Mild, irregular atherosclerotic plaque scattered throughout the aorta. Questionable occlusion of the left common iliac artery. Splenorenal shunt. Small esophageal varices. The main portal vein is patent and measures 0.6 cm in diameter. GI TRACT: No distention or wall thickening. BONES AND SOFTTISSUES: Unremarkable. IMPRESSION: 1.The previously seen hepatocellular carcinoma [...] However, the more distal portion is not ableto be visualized on this examination due to coverage, and this could still be severe stenosis. This could be further evaluated with a CT of the abdomen and pelvis with contrast if clinically necessary.8.A left adrenal adenoma measures 2.1 cm and is unchanged. No follow-up imaging is recommended. 9.Moderate size right and small left pleural effusions. Signed: Cooper Dimas MDReport Verified Date/Time: 02/13/2019 14:11:00 Reading Location: [facility] C013Y CT Body Reading Room POCT-GLUCOSE [id number] 10:52:00 Test Item Value Reference Range Comments POC-GLUCOSE METER (BEAKER) 160 mg/dL 70-110 TESTED AT [address] (test kklm=5459) [place] [id number] POCT-GLUCOSE [id number] 07:35:00 Test Item Value Reference Range Comments POC-GLUCOSE METER (BEAKER) 120 mg/dL 70-110 TESTED AT [address] (test vxym=3804) [place] [id number] BASIC METABOLIC [id number] 06:42:00 Test Item Value Reference Range Comments SODIUM (BEAKER) (test 139 meq/L 136-145 orkt=738) POTASSIUM (BEAKER) (test 4.0 meq/L 3.5-5.1 Specimen slightly ntwf=761) hemolyzed CHLORIDE (BEAKER) (test 115 meq/L 98-107 dupg=935) CO2 (BEAKER) (test 19 meq/L 22-29 kads=480) BLOOD UREA NITROGEN 6 mg/dL 7-21 (BEAKER) (test cyre=585) CREATININE (BEAKER) (test 0.65 mg/dL 0.57-1.25 Specimen slightly awug=257) hemolyzed GLUCOSE RANDOM (BEAKER) 91 mg/dL 70-105 (test hxkf=588) CALCIUM (BEAKER) (test 7.7 mg/dL 8.4-10.2 lwgm=904) EGFR (BEAKER) (test 119 mL/min/1.73 sq m ESTIMATED GFR IS NOT pays=4400) ACCURATE CREATININE CLEARANCE IN PREDICTING GLOMERULAR FILTRATION RATE. ESTIMATED GFR IS NOT APPLICABLE FOR DIALYSIS PATIENTS. HEPATIC FUNCTION [id number] 06:41:00 Test Item Value Reference Range Comments TOTAL PROTEIN (BEAKER) (test 5.5 gm/dL 6.0-8.3 Specimen slightly hemolyzed oemu=827) ALBUMIN (BEAKER) (test 2.7 g/dL 3.5-5.0 Specimen slightly hemolyzed jqtb=0386) BILIRUBIN TOTAL (BEAKER) (test 1.4 mg/dL 0.2-1.2 Specimen slightly hemolyzed fqer=928) BILIRUBIN DIRECT (BEAKER) (test 0.6 mg/dL 0.1-0.5 Specimen slightly hemolyzed wkkp=727) ALKALINE PHOSPHATASE (BEAKER) 56 U/L 40-150 (test yynw=101) AST (SGOT) (BEAKER) (test 49 U/L 5-34 Specimen slightly hemolyzed rmrs=433) ALT (SGPT) (BEAKER) (test 18 U/L 6-55 Specimen slightly hemolyzed mrzp=293) PT/[id number] 05:52:00 Test Item Value Reference Range Comments PROTIME (BEAKER) (test pwkr=511) 20.7 seconds 11.9-14.2 INR (BEAKER) (test yvvs=491) 1.9 <=5.9 PARTIAL THROMBOPLASTIN TIME (BEAKER) (test 46.6 seconds 22.5-36.0 zvrf=932) Effective 12/22/2018: PT Reference Range ChangeNew: 11.9-14.2 Previous: 11.7- 14.7RECOMMENDED COUMADIN/WARFARIN INR THERAPY RANGESSTANDARD DOSE: 2.0-3.0 Includes: PROPHYLAXIS for venous thrombosis, systemic embolization; TREATMENT for venous thrombosis and/or pulmonary embolus.HIGH RISK: Target INR is2.5-3.5 for patients wiht mechanical heart valves.PROTHROMBIN [id number] 05:51: 00 Test Item Value Reference Range Comments PROTIME (BEAKER) (test ubqs=825) 20.7 seconds 11.9-14.2 INR (BEAKER) (test ltaq=025) 1.9 <=5.9 Effective 12/22/2018: PT Reference Range ChangeNew: 11.9-14.2 Previous: 11.7- 14.7RECOMMENDED COUMADIN/WARFARIN INR THERAPY RANGESSTANDARD DOSE: 2.0-3.0 Includes: PROPHYLAXIS for venous thrombosis, systemic embolization; TREATMENT for venous thrombosis and/or pulmonary embolus.HIGH RISK: Target INR is2.5-3.5 for patients wiht mechanical heart valves.CBC (HEMOGRAM ONLY)2019-02-13 05:26:00 Test Item Value Reference Range Comments WHITE BLOOD CELL COUNT (BEAKER) (test ffvx=751) 2.9 K/ L 3.5-10.5 RED BLOOD CELL COUNT (BEAKER) (test bvfb=566) 2.76 M/ L 4.63-6.08 HEMOGLOBIN (BEAKER) (test pdms=371) 7.3 GM/DL 13.7-17.5 HEMATOCRIT (BEAKER) (test exsu=544) 23.5 % 40.1-51.0 MEAN CORPUSCULAR VOLUME (BEAKER) (test zffz=408) 85.1 fL 79.0-92.2 MEAN CORPUSCULAR HEMOGLOBIN (BEAKER) (test 26.4 pg 25.7-32.2 seqi=879) MEAN CORPUSCULAR HEMOGLOBIN CONC (BEAKER) (test 31.1 GM/DL 32.3-36.5 wyyy=621) RED CELL DISTRIBUTION WIDTH (BEAKER) (test 19.4 % 11.6-14.4 btdz=425) PLATELET COUNT (BEAKER) (test xvmf=016) 73 K/CU MM 150-450 MEAN PLATELET VOLUME (BEAKER) (test djvs=860) 10.3 fL 9.4-12.4 NUCLEATED RED BLOOD CELLS (BEAKER) (test 0 /100 WBC 0-0 tkua=945) POCT-GLUCOSE [id number] 21:21:00 Test Item Value Reference Range Comments POC-GLUCOSE METER (BEAKER) 185 mg/dL 70-110 TESTED AT [address] (test taze=7585) [facility] [address] POCT-GLUCOSE [id number] 15:55:00 Test Item Value Reference Range Comments POC-GLUCOSE METER (BEAKER) 154 mg/dL 70-110 TESTED AT [address] (test dpxr=0021) [facility] [address] POCT-GLUCOSE [id number] 15:55:00 Test Item Value Reference Range Comments POC-GLUCOSE METER (BEAKER) 144 mg/dL 70-110 TESTED AT [address] (test fuzq=0303) [facility] [address] POCT-GLUCOSE [id number] 10:19:00 Test Item Value Reference Range Comments POC-GLUCOSE METER (BEAKER) 130 mg/dL 70-110 TESTED AT [facility] [address] (test sini=4152) [facility] [address] ALPHA FETOPROTEIN (AFP), TUMOR [id number] 08:37:00 Test Item Value Reference Range Comments ALPHA-FETOPROTEIN (BEAKER) (test yeam=2839) 362.4 ng/mL <10.0 [id number] 07:20:00 Test Item Value Reference Range Comments FERRITIN (BEAKER) (test ktuv=614) 33 ng/mL 5-275 IRON, TIBC, % SAT. (WITHOUT FERRITIN)2019-02-12 06:59:00 Test Item Value Reference Range Comments IRON (BEAKER) (test irai=252) 43.0 ug/dL 40.0-160.0 TOTAL IRON BINDING CAPACITY (BEAKER) (test 338 ug/dL 250-450 thiu=790) IRON % SATURATION (2) (BEAKER) (test ieme=5421) 13 % 20-55 BASIC METABOLIC [id number] 06:22:00 Test Item Value Reference Range Comments SODIUM (BEAKER) (test 137 meq/L 136-145 hsmp=230) POTASSIUM (BEAKER) (test 4.0 meq/L 3.5-5.1 tsdc=385) CHLORIDE (BEAKER) (test 113 meq/L 98-107 bava=491) CO2 (BEAKER) (test 20 meq/L 22-29 gvqr=870) BLOOD UREA NITROGEN 7 mg/dL 7-21 (BEAKER) (test rwyf=404) CREATININE (BEAKER) (test 0.70 mg/dL 0.57-1.25 lejy=705) GLUCOSE RANDOM (BEAKER) 103 mg/dL 70-105 (test bgqw=915) CALCIUM (BEAKER) (test 7.7 mg/dL 8.4-10.2 uwjd=340) EGFR (BEAKER) (test 109 mL/min/1.73 sq m ESTIMATED GFR IS NOT ialt=6321) ACCURATE CREATININE CLEARANCE IN PREDICTING GLOMERULAR FILTRATION RATE. ESTIMATED GFR IS NOT APPLICABLE FOR DIALYSIS PATIENTS. [id number] 06:15:00 Test Item Value Reference Range Comments PHOSPHORUS (BEAKER) (test gsvl=665) 2.6 mg/dL 2.3-4.7 [id number] 06:15:00 Test Item Value Reference Range Comments MAGNESIUM (BEAKER) (test fsba=931) 1.9 mg/dL 1.6-2.6 HEPATIC FUNCTION [id number] 06:15:00 Test Item Value Reference Range Comments TOTAL PROTEIN (BEAKER) (test vtgq=655) 5.7 gm/dL 6.0-8.3 ALBUMIN (BEAKER) (test yhlp=0066) 2.8 g/dL 3.5-5.0 BILIRUBIN TOTAL (BEAKER) (test mzzn=939) 1.8 mg/dL 0.2-1.2 BILIRUBIN DIRECT (BEAKER) (test mqkh=142) 0.9 mg/dL 0.1-0.5 ALKALINE PHOSPHATASE (BEAKER) (test ozwa=766) 54 U/L 40-150 AST (SGOT) (BEAKER) (test pvtg=333) 41 U/L 5-34 ALT (SGPT) (BEAKER) (test kzmr=811) 16 U/L 6-55 PROTHROMBIN [id number] 05:51:00 Test Item Value Reference Range Comments PROTIME (BEAKER) (test mcsk=608) 19.8 seconds 11.9-14.2 INR (BEAKER) (test hyon=291) 1.8 <=5.9 Effective 12/22/2018: PT Reference Range ChangeNew: 11.9-14.2 Previous: 11.7- 14.7RECOMMENDED COUMADIN/WARFARIN INR THERAPY RANGESSTANDARD DOSE: 2.0-3.0 Includes: PROPHYLAXIS for venous thrombosis, systemic embolization; TREATMENT for venous thrombosis and/or pulmonary embolus.HIGH RISK: Target INR is2.5-3.5 for patients wiht mechanical heart valves.PT/[id number] 05:51:00 Test Item Value Reference Range Comments PROTIME (BEAKER) (test ixbl=340) 19.8 seconds 11.9-14.2 INR (BEAKER) (test pgbp=632) 1.8 <=5.9 PARTIAL THROMBOPLASTIN TIME (BEAKER) (test 43.4 seconds 22.5-36.0 lfai=262) Effective 12/22/2018: PT Reference Range ChangeNew: 11.9-14.2 Previous: 11.7- 14.7RECOMMENDED COUMADIN/WARFARIN INR THERAPY RANGESSTANDARD DOSE: 2.0-3.0 Includes: PROPHYLAXIS for venous thrombosis, systemic embolization; TREATMENT for venous thrombosis and/or pulmonary embolus.HIGH RISK: Target INR is2.5-3.5 for patients wiht mechanical heart valves.CBC (HEMOGRAM ONLY)2019-02-12 05:30:00 Test Item Value Reference Range Comments WHITE BLOOD CELL COUNT (BEAKER) (test nvqn=243) 3.3 K/ L 3.5-10.5 RED BLOOD CELL COUNT (BEAKER) (test fgwa=749) 2.79 M/ L 4.63-6.08 HEMOGLOBIN (BEAKER) (test zaqi=673) 7.2 GM/DL 13.7-17.5 HEMATOCRIT (BEAKER) (test qqor=477) 23.5 % 40.1-51.0 MEAN CORPUSCULAR VOLUME (BEAKER) (test mplf=739) 84.2 fL 79.0-92.2 MEAN CORPUSCULAR HEMOGLOBIN (BEAKER) (test 25.8 pg 25.7-32.2 tvsf=596) MEAN CORPUSCULAR HEMOGLOBIN CONC (BEAKER) (test 30.6 GM/DL 32.3-36.5 fqbg=422) RED CELL DISTRIBUTION WIDTH (BEAKER) (test 18.9 % 11.6-14.4 nogs=255) PLATELET COUNT (BEAKER) (test phva=694) 69 K/CU MM 150-450 MEAN PLATELET VOLUME (BEAKER) (test klas=139) 10.4 fL 9.4-12.4 NUCLEATED RED BLOOD CELLS (BEAKER) (test 1 /100 WBC 0-0 ccsy=665) HEPATITIS A ANTIBODY, [id number] 19:24:00 Test Item Value Reference Range Comments HEPATITIS A IGG ANTIBODY (BEAKER) (test Nonreactive Nonreactive ljcp=2744) ALPHA FETOPROTEIN (AFP), TUMOR [id number] 17:58:00 Test Item Value Reference Range Comments ALPHA-FETOPROTEIN (BEAKER) (test ogfo=9278) 356.8 ng/mL <10.0 HEMOGLOBIN AND [id number] 14:32:00 Test Item Value Reference Range Comments HEMOGLOBIN (BEAKER) (test yvzl=773) 7.6 GM/DL 13.7-17.5 HEMATOCRIT (BEAKER) (test rqui=829) 25.6 % 40.1-51.0 U/S, ABDOMINAL, WITH [id number] 13:40:00Reason for exam:->abdominal pain, cirrhosis ? liver massFINAL REPORT Ultrasound of the Abdomen, 02/11/2019. Clinical History: Abdominal pain. Cirrhosis. Comparison : MRI, 09/25/2017. Discussion:Sonographic evaluation of the abdomen is performed. In [...] Doppler interrogation of the liver demonstrates a mainportal vein diameter measuring 0.9 cm with a peak systolic velocity of 30 cm /sec. There is hepatopetal and hepatofugal directionality of flow in the main portal vein. No thrombus is visualized however.There is hepatofugal flow in portions of the splenic vein. The resistive indices in the proper, right and left hepatic arteries are 0.8, 0.8 and 0.8 respectively. Outflow with appropriate directionality is seen in the IVC, hepatic venous confluence as well as the right, middle and left hepatic veins. Impression:1. Cirrhotic liver. No mass.2. Hepatopedal and hepatofugal directionality of flow in the main portal vein without evidence for thrombus at this time. Signed: Tere Joseph MDReport VerifiedDate/Time: 02/11/2019 13:40:35 Reading Location: [address] Radiology Reading Room RE [id number] 08:56:00 Test Item Value Reference Range Comments TROPONIN I (BEAKER) (test urlh=365) 0.10 ng/mL 0.00-0.03 Troponin I (TnI) levels must be interpreted [...] failure, acidosis, acute neurological disease, and persistent tachyarrhythmia.[id number] 01:49:00 Test Item Value Reference Range Comments AMMONIA (BEAKER) (test xnvp=754) 63 mol/L 18-72 CBC W/PLT COUNT & AUTO [id number] 01:33:00 Test Item Value Reference Range Comments WHITE BLOOD CELL COUNT (BEAKER) (test osvo=814) 3.8 K/ L 3.5-10.5 RED BLOOD CELL COUNT (BEAKER) (test imjw=343) 2.19 M/ L 4.63-6.08 HEMOGLOBIN (BEAKER) (test xevy=494) 5.1 GM/DL 13.7-17.5 HEMATOCRIT (BEAKER) (test fdjm=673) 17.8 % 40.1-51.0 MEAN CORPUSCULAR VOLUME (BEAKER) (test xerz=740) 81.3 fL 79.0-92.2 MEAN CORPUSCULAR HEMOGLOBIN (BEAKER) (test 23.3 pg 25.7-32.2 rduh=729) MEAN CORPUSCULAR HEMOGLOBIN CONC (BEAKER) (test 28.7 GM/DL 32.3-36.5 upnr=264) RED CELL DISTRIBUTION WIDTH (BEAKER) (test 20.2 % 11.6-14.4 npoi=688) PLATELET COUNT (BEAKER) (test qdbn=790) 71 K/CU MM 150-450 MEAN PLATELET VOLUME (BEAKER) (test kodd=797) 10.2 fL 9.4-12.4 NUCLEATED RED BLOOD CELLS (BEAKER) (test 0 /100 WBC 0-0 erel=886) NEUTROPHILS RELATIVE PERCENT (BEAKER) (test 42 % xpwe=835) LYMPHOCYTES RELATIVE PERCENT (BEAKER) (test 33 % mjow=847) MONOCYTES RELATIVE PERCENT (BEAKER) (test 21 % yajn=821) EOSINOPHILS RELATIVE PERCENT (BEAKER) (test 4 % wpyd=648) BASOPHILS RELATIVE PERCENT (BEAKER) (test 0 % bdfq=180) NEUTROPHILS ABSOLUTE COUNT (BEAKER) (test 1.58 K/ L 1.78-5.38 xuni=837) LYMPHOCYTES ABSOLUTE COUNT (BEAKER) (test 1.22 K/ L 1.32-3.57 rrfx=140) MONOCYTES ABSOLUTE COUNT (BEAKER) (test kudo=665) 0.79 K/ L 0.30-0.82 EOSINOPHILS ABSOLUTE COUNT (BEAKER) (test 0.15 K/ L 0.04-0.54 lbll=052) BASOPHILS ABSOLUTE COUNT (BEAKER) (test sjhe=911) 0.00 K/ L 0.01-0.08 IMMATURE GRANULOCYTES-RELATIVE PERCENT (BEAKER) 0 % 0-1 (test ixng=0364) TROPONIN [id number] 01:23:00 Test Item Value Reference Range Comments TROPONIN I (BEAKER) (test iudd=968) < ng/mL 0.00-0.03 Troponin I (TnI) levels must be interpreted [...] failure, acidosis, acute neurological disease, and persistent tachyarrhythmia.[id number] 01:17:00 Test Item Value Reference Range Comments PHOSPHORUS (BEAKER) (test drfs=950) 2.7 mg/dL 2.3-4.7 [id number] 01:17:00 Test Item Value Reference Range Comments MAGNESIUM (BEAKER) (test iqcu=662) 1.9 mg/dL 1.6-2.6 BASIC METABOLIC [id number] 01:17:00 Test Item Value Reference Range Comments SODIUM (BEAKER) (test 137 meq/L 136-145 dzqa=743) POTASSIUM (BEAKER) (test 3.4 meq/L 3.5-5.1 davg=380) CHLORIDE (BEAKER) (test 109 meq/L 98-107 lilc=870) CO2 (BEAKER) (test 21 meq/L 22-29 umjd=213) BLOOD UREA NITROGEN 9 mg/dL 7-21 (BEAKER) (test hsoe=232) CREATININE (BEAKER) (test 0.65 mg/dL 0.57-1.25 dccg=177) GLUCOSE RANDOM (BEAKER) 104 mg/dL 70-105 (test fhsz=239) CALCIUM (BEAKER) (test 8.1 mg/dL 8.4-10.2 kwsa=450) EGFR (BEAKER) (test 119 mL/min/1.73 sq m ESTIMATED GFR IS NOT wqlr=5836) ACCURATE CREATININE CLEARANCE IN PREDICTING GLOMERULAR FILTRATION RATE. ESTIMATED GFR IS NOT APPLICABLE FOR DIALYSIS PATIENTS. Specimen slightly ictericHEPATIC FUNCTION [id number] 01:17:00 Test Item Value Reference Range Comments TOTAL PROTEIN (BEAKER) (test gvir=194) 5.7 gm/dL 6.0-8.3 ALBUMIN (BEAKER) (test telb=9798) 2.8 g/dL 3.5-5.0 BILIRUBIN TOTAL (BEAKER) (test urfr=898) 2.3 mg/dL 0.2-1.2 BILIRUBIN DIRECT (BEAKER) (test hilo=965) 0.8 mg/dL 0.1-0.5 ALKALINE PHOSPHATASE (BEAKER) (test hbeo=468) 59 U/L 40-150 AST (SGOT) (BEAKER) (test peym=123) 29 U/L 5-34 ALT (SGPT) (BEAKER) (test atzq=879) 11 U/L 6-55 Specimen slightly ictericPT/[id number] 01:08:00 Test Item Value Reference Range Comments PROTIME (BEAKER) (test fwof=620) 19.5 seconds 11.9-14.2 INR (BEAKER) (test ueki=444) 1.8 <=5.9 PARTIAL THROMBOPLASTIN TIME (BEAKER) (test 42.1 seconds 22.5-36.0 cjif=346) Effective 12/22/2018: PT Reference Range ChangeNew: 11.9-14.2 Previous: 11.7- 14.7RECOMMENDED COUMADIN/WARFARIN INR THERAPY RANGESSTANDARD DOSE: 2.0-3.0 Includes: PROPHYLAXIS for venous thrombosis, systemic embolization; TREATMENT for venous thrombosis and/or pulmonary embolus.HIGH RISK: Target INR is2.5-3.5 for patients wiht mechanical heart valves.PROTHROMBIN TIME/[id number] 01:07: 00 Test Item Value Reference Range Comments PROTIME (BEAKER) (test xxsk=120) 19.5 seconds 11.9-14.2 INR (BEAKER) (test nkyq=231) 1.8 <=5.9 Effective 12/22/2018: PT Reference Range ChangeNew: 11.9-14.2 Previous: 11.7- 14.7RECOMMENDED COUMADIN/WARFARIN INR THERAPY RANGESSTANDARD DOSE: 2.0-3.0 Includes: PROPHYLAXIS for venous thrombosis, systemic embolization; TREATMENT for venous thrombosis and/or pulmonary embolus.HIGH RISK: Target INR is2.5-3.5 for patients wiht mechanical heart valves.URINALYSIS W/ REFLEX URINE [id number] 00:55:00 Test Item Value Reference Range Comments COLOR (BEAKER) (test hmnw=205) Yellow CLARITY (BEAKER) (test gcev=184) Clear SPECIFIC GRAVITY UA (BEAKER) (test suvy=414) 1.013 1.001-1.035 PH UA (BEAKER) (test tenu=266) 6.0 5.0-8.0 PROTEIN UA (BEAKER) (test kbht=363) Negative Negative GLUCOSE UA (BEAKER) (test apzg=309) Negative Negative KETONES UA (BEAKER) (test ftgb=640) 10 mg/dL Negative BILIRUBIN UA (BEAKER) (test fyws=375) Negative Negative BLOOD UA (BEAKER) (test qnbc=015) Negative Negative NITRITE UA (BEAKER) (test ztet=477) Negative Negative LEUKOCYTE ESTERASE UA (BEAKER) (test bfcn=954) Negative Negative UROBILINOGEN UA (BEAKER) (test dyqk=776) 0.2 mg/dL 0.2-1.0 RBC UA (BEAKER) (test ucsp=552) 0 /HPF WBC UA (BEAKER) (test jtvp=727) 1 /HPF MUCUS (BEAKER) (test msje=2479) Rare SOURCE(BEAKER) (test jmgy=5672) CBC W/PLT COUNT & AUTO [id number] 23:53:00 Test Item Value Reference Range Comments WHITE BLOOD CELL COUNT (BEAKER) (test svbi=377) 4.0 K/ L 3.5-10.5 RED BLOOD CELL COUNT (BEAKER) (test dcat=592) 2.47 M/ L 4.63-6.08 HEMOGLOBIN (BEAKER) (test kaao=780) 5.9 GM/DL 13.7-17.5 HEMATOCRIT (BEAKER) (test hqdp=979) 20.2 % 40.1-51.0 MEAN CORPUSCULAR VOLUME (BEAKER) (test lwmz=308) 81.8 fL 79.0-92.2 MEAN CORPUSCULAR HEMOGLOBIN (BEAKER) (test 23.9 pg 25.7-32.2 gufp=419) MEAN CORPUSCULAR HEMOGLOBIN CONC (BEAKER) (test 29.2 GM/DL 32.3-36.5 ydgd=622) RED CELL DISTRIBUTION WIDTH (BEAKER) (test 20.3 % 11.6-14.4 pabf=581) PLATELET COUNT (BEAKER) (test jxmr=869) 93 K/CU MM 150-450 MEAN PLATELET VOLUME (BEAKER) (test flac=667) 10.5 fL 9.4-12.4 NUCLEATED RED BLOOD CELLS (BEAKER) (test 0 /100 WBC 0-0 rcth=911) (CELLAVISION MANUAL DIFF)2019-02-10 23:53:00 Test Item Value Reference Range Comments NEUTROPHILS - REL (CELLAVISION)(BEAKER) (test 57 % quxg=9009) LYMPHOCYTES - REL (CELLAVISION)(BEAKER) (test 24 % lfkk=5191) MONOCYTES - REL (CELLAVISION)(BEAKER) (test 10 % ihdo=7431) EOSINOPHILS - REL (CELLAVISION)(BEAKER) (test 7 % faio=0968) BANDS - REL (CELLAVISION)(BEAKER) (test 2 % 0-10 zpcp=2090) NEUTROPHILS - ABS (CELLAVISION)(BEAKER) (test 2.28 K/ul 1.78-5.38 jdcj=6630) LYMPHOCYTES - ABS (CELLAVISION)(BEAKER) (test 0.96 K/ul 1.32-3.57 qhtx=1252) MONOCYTES - ABS (CELLAVISION)(BEAKER) (test 0.40 K/uL 0.30-0.82 xqjm=6170) EOSINOPHILS - ABS (CELLAVISION)(BEAKER) (test 0.28 K/uL 0.04-0.54 tuha=6336) BANDS - ABS (CELLAVISION)(BEAKER) (test 0.08 K/uL 0.00-0.80 wzjc=7479) TOTAL COUNTED (BEAKER) (test caiq=6126) 100 GIANT PLATELETS (BEAKER) (test pfxi=062) Present VACUOLATED NEUTROPHILS (BEAKER) (test fsoe=075) Present POLYCHROMATOPHILLIC RBCS(BEAKER) (test juog=857) 1+ few HYPOCHROMIA (BEAKER) (test yusi=123) 2+ moderate ANISOCYTOSIS (BEAKER) (test rcov=888) 3+ many MICROCYTES (BEAKER) (test yfoo=169) 1+ few MACROCYTES (BEAKER) (test wswm=841) 1+ few POIKILOCYTES (BEAKER) (test encq=003) 1+ few SPHEROCYTES (BEAKER) (test jnar=763) 1+ few ELLIPTOCYTES (BEAKER) (test wvgf=412) 1+ few TEAR DROP CELLS (BEAKER) (test dirv=474) 1+ few ARTIFACT (CELLAVISION)(BEAKER) (test pcyw=6372) Present HELMET CELLS (CELLAVISION)(BEAKER) (test 1+ few daob=8128) PLATELET CONCENTRATION (CELLAVISION)(BEAKER) Decreased (test jwnd=0096) Received comment: User comments: Slide comments:TROPONIN [id number] 23:14:00 Test Item Value Reference Range Comments TROPONIN I (BEAKER) (test zlet=099) < ng/mL 0.00-0.03 Troponin I (TnI) levels must be interpreted [...] failure, acidosis, acute neurological disease, and persistent tachyarrhythmia.COMPREHENSIVE METABOLIC [id number] 23:08:00 Test Item Value Reference Range Comments TOTAL PROTEIN (BEAKER) 6.2 gm/dL 6.0-8.3 (test gwzy=415) ALBUMIN (BEAKER) (test 3.1 g/dL 3.5-5.0 aqji=8018) ALKALINE PHOSPHATASE 65 U/L 40-150 (BEAKER) (test fjfn=607) BILIRUBIN TOTAL (BEAKER) 2.9 mg/dL 0.2-1.2 (test fuhf=091) SODIUM (BEAKER) (test 136 meq/L 136-145 pues=181) POTASSIUM (BEAKER) (test 3.4 meq/L 3.5-5.1 ikog=660) CHLORIDE (BEAKER) (test 108 meq/L 98-107 akks=609) CO2 (BEAKER) (test 19 meq/L 22-29 fviw=573) BLOOD UREA NITROGEN 9 mg/dL 7-21 (BEAKER) (test ypez=215) CREATININE (BEAKER) (test 0.69 mg/dL 0.57-1.25 gptm=828) GLUCOSE RANDOM (BEAKER) 139 mg/dL 70-105 (test vnuk=598) CALCIUM (BEAKER) (test 8.3 mg/dL 8.4-10.2 xfah=136) AST (SGOT) (BEAKER) (test 32 U/L 5-34 kvqx=506) ALT (SGPT) (BEAKER) (test 14 U/L 6-55 xzpz=668) EGFR (BEAKER) (test 111 mL/min/1.73 sq ESTIMATED GFR IS NOT lzhp=4242) m ACCURATE CREATININE CLEARANCE IN PREDICTING GLOMERULAR FILTRATION RATE. ESTIMATED GFR IS NOT APPLICABLE FOR DIALYSIS PATIENTS. Specimen slightly ictericRAD, CHEST, 2 [id number] 22:59:00Reason for exam:- >pleural effusion on CT a/p evaluateFINAL REPORT History: Pleural effusions. FINDINGS: Compared with 11/20 2017, the heart and mediastinum are stable. Lung volumes have decreased slightly. There is increased opacityin the lung bases, possibly atelectasis or early pneumonia. Blunting of the costophrenic sulci may represent small pleural effusions. Lungs are otherwise clear. No pneumothorax. Bones are unremarkable.IMPRESSION: 1. Low lung volumes and probable bilateral lower lobe atelectasis. 2. Possible small bilateral pleural effusions. Signed: Estrella Wagner MDReport Verified Date/Time: 02/10/2019 22:59:29 Reading Location: [facility] Diagnostic Imaging Reading Room - [place] [address] 1120 [id number] 22:57:00 Test Item Value Reference Range Comments PARTIAL THROMBOPLASTIN TIME (BEAKER) (test 36.6 seconds 22.5-36.0 pigm=544) PROTHROMBIN TIME/[id number] 22:56:00 Test Item Value Reference Range Comments PROTIME (BEAKER) (test iloo=632) 18.9 seconds 11.9-14.2 INR (BEAKER) (test zfim=416) 1.7 <=5.9 Effective 12/22/2018: PT Reference Range ChangeNew: 11.9-14.2 Previous: 11.7- 14.7RECOMMENDED COUMADIN/WARFARIN INR THERAPY RANGESSTANDARD DOSE: 2.0-3.0 Includes: PROPHYLAXIS for venous thrombosis, systemic embolization; TREATMENT for venous thrombosis and/or pulmonary embolus.HIGH RISK: Target INR is2.5-3.5 for patients wiht mechanical heart valves.POCT-GLUCOSE [id number] 21:34:00 Test Item Value Reference Range Comments POC-GLUCOSE METER (BEAKER) 170 mg/dL 70-110 TESTED AT [address] (test nqrf=4477) [facility] [address] MR, ABDOMEN, [id number] 20:13:00Liver protocol based on 09/23 CT of chest shows liver massAddendum BeginsREPORT STATUS:A ADRENALS section should include: Thickening ofboth adrenal glands without discrete nodules. Signed: Geovany Srinivasan MDReport Verified Date/Time: 09/25/2017 20:13: 03 Reading Location: [address] Body Reading RoomAddendum EndsFINAL REPORT TECHNIQUE: MRI of the abdomen WITHOUT and WITH intravenous contrast. INDICATION: 77-year-old man with liver masses. COMPARISON : None. FINDINGS: LOWER THORAX: Trace bilateral pleural effusions. LIVER: Cirrhotic morphology of the liver. 2.8 cm T1 hyperintense lesion in the periphery of segment VIII with arterial enhancement, washout, and capsule with ( axial postcontrast arterial series image 25). BILIARY: Sludge in the gallbladder. Mild gallbladder wall thickening, nonspecific in the setting of cirrhosis. 0.8 cm area of cystic change in the wall of the gallbladder fundus, suggestive of adenomyomatosis. No biliary ductal dilatation or filling defect.SPLEEN: Enlarged, measuring 14.2cm in the craniocaudal dimension.PANCREAS : No focal masses or ductal dilatation. ADRENALS: No adrenal nodules.KIDNEYS/ URETERS: No hydronephrosis or solid mass lesions. Renal cysts measure 0.7 cm on theright and 1.4 cm on the left. PERITONEUM/RETROPERITONEUM: [...] MDReport Verified Date/Time: 09/25/2017 13:46:41 Reading Location: [address] Body Reading Room Electronically signedby: GEOVANY SRINIVASAN MD on 09/25/2017 08:13 PMBASI METABOLIC [id number] 14:10:00 Test Item Value Reference Range Comments SODIUM (BEAKER) (test 135 meq/L 135-148 vwsf=789) POTASSIUM (BEAKER) (test 3.5 meq/L 3.5-5.5 qmxb=676) CHLORIDE (BEAKER) (test 99 meq/L 98-106 wqms=242) CO2 (BEAKER) (test 28 meq/L 20-31 ggrm=027) BLOOD UREA NITROGEN 8 mg/dL 10-26 (BEAKER) (test bmyz=234) CREATININE (BEAKER) (test 0.64 mg/dL 0.50-1.20 azuc=647) GLUCOSE RANDOM (BEAKER) 180 mg/dL 70-110 (test agyy=084) CALCIUM (BEAKER) (test 8.3 mg/dL 8.5-10.5 fthz=365) EGFR (BEAKER) (test 122 mL/min/1.73 sq m ESTIMATED GFR IS NOT kkpj=7265) ACCURATE CREATININE CLEARANCE IN PREDICTING GLOMERULAR FILTRATION RATE. ESTIMATED GFR IS NOT APPLICABLE FOR DIALYSIS PATIENTS. POCT-GLUCOSE [id number] 13:03:00 Test Item Value Reference Range Comments POC-GLUCOSE METER (BEAKER) 160 mg/dL 70-110 TESTED AT [facility] [id number] [place] [address] (test jmlf=9967) [address] [place] [address] [id number] 09:47:00 Test Item Value Reference Range Comments PARTIAL THROMBOPLASTIN TIME (BEAKER) (test 42.3 seconds 23.2-36.1 zloz=745) PROTHROMBIN TIME/[id number] 09:45:00 Test Item Value Reference Range Comments PROTIME (BEAKER) (test jkab=228) 17.6 seconds 11.8-14.4 INR (BEAKER) (test vwkx=201) 1.4 1.2-1.5 RECOMMENDED COUMADIN/WARFARIN INR THERAPY RANGESSTANDARD DOSE: 2.0 - 3.0 Includes: PROPHYLAXIS forvenous thrombosis, systemic embolization; TREATMENT for venous thrombosis and/or pulmonary embolus.HIGH RISK: Target INR is 2.5-3.5 for patients with mechanical heart valves.POCT-GLUCOSE [id number] 07:23:00 Test Item Value Reference Range Comments POC-GLUCOSE METER (BEAKER) 171 mg/dL 70-110 TESTED AT [facility] [id number] [place] [address] (test pzhi=5262) [address] [place] [id number] POCT-GLUCOSE [id number] 21:35:00 Test Item Value Reference Range Comments POC-GLUCOSE METER (BEAKER) 209 mg/dL 70-110 TESTED AT [facility] [id number] [place] [address] (test eerj=2724) [place] [address] ALPHA FETOPROTEIN (AFP), TUMOR [id number] 18:39:00 Test Item Value Reference Range Comments ALPHA-FETOPROTEIN (BEAKER) (test jdfq=3462) 215.0 ng/mL <10.0 POCT-GLUCOSE [id number] 16:42:00 Test Item Value Reference Range Comments POC-GLUCOSE METER (BEAKER) 254 mg/dL 70-110 TESTED AT [facility] [address] [facility] (test ugpg=9300) [facility] [address] RESPIRATORY PANEL [id number] 15:20:00 Test Item Value Reference Range Comments HUMAN METAPNEUMOVIRUS (BEAKER) (test Not detected Not detected, Inconclusive ldvn=5995) RHINOVIRUS (BEAKER) (test okdj=3581) Not detected Not detected, Inconclusive INFLUENZA A (BEAKER) (test Not detected Not detected, Inconclusive lqyq=5736) INFLUENZA A SUBTYPE H1 (BEAKER) Not detected Not detected, Inconclusive (test tamq=2503) INFLUENZA A SUBTYPE H3 (BEAKER) Not detected Not detected, Inconclusive (test eaxn=7141) INFLUENZA A SUBTYPE H1-2009 (BEAKER) Not detected Not detected, Inconclusive (test fkyo=0646) INFLUENZA B (BEAKER) (test Not detected Not detected, Inconclusive xuoc=6061) RESPIRATORY SYNCYTIAL VIRUS (BEAKER) Not detected Not detected, Inconclusive (test qvrq=8735) PARAINFLUENZA VIRUS 1 (BEAKER) (test Not detected Not detected, Inconclusive dsoc=2044) PARAINFLUENZA VIRUS 2 (BEAKER) (test Not detected Not detected, Inconclusive vkda=3892) PARAINFLUENZA VIRUS 3 (BEAKER) (test Not detected Not detected, Inconclusive xzhr=4847) PARAINFLUENZA VIRUS 4 (BEAKER) (test Not detected Not detected, Inconclusive oren=3253) ADENOVIRUS (BEAKER) (test uwmm=1646) Not detected Not detected, Inconclusive CORONAVIRUS 229E (BEAKER) (test Not detected Not detected, Inconclusive uava=2543) CORONAVIRUS HKU1 (BEAKER) (test Not detected Not detected, Inconclusive opzi=1157) CORONAVIRUS NL63 (BEAKER) (test Not detected Not detected, Inconclusive xgrv=2856) CORONAVIRUS OC43 (BEAKER) (test Not detected Not detected, Inconclusive bjbu=4242) BORDETELLA PERTUSSIS (BEAKER) (test Not detected Not detected, Inconclusive zohv=8261) CHLAMYDOPHILA PNEUMONIAE (BEAKER) Not detected Not detected, Inconclusive (test lzwh=2193) MYCOPLASMA PNEUMONIAE (BEAKER) (test Not detected Not detected, Inconclusive fsda=5372) POCT-GLUCOSE [id number] 13:03:00 Test Item Value Reference Range Comments POC-GLUCOSE METER (BEAKER) 176 mg/dL 70-110 TESTED AT [facility] [address] [facility] (test yhzk=2590) [facility] [address] POCT-GLUCOSE [id number] 07:51:00 Test Item Value Reference Range Comments POC-GLUCOSE METER (BEAKER) 172 mg/dL 70-110 TESTED AT [facility] [address] [facility] (test prde=7177) [facility] [address] BASIC METABOLIC [id number] 07:06:00 Test Item Value Reference Range Comments SODIUM (BEAKER) (test 137 meq/L 135-148 yczt=162) POTASSIUM (BEAKER) (test 3.4 meq/L 3.5-5.5 yytj=945) CHLORIDE (BEAKER) (test 100 meq/L 98-106 pvzu=945) CO2 (BEAKER) (test 31 meq/L 20-31 kefb=578) BLOOD UREA NITROGEN 9 mg/dL 10-26 (BEAKER) (test lais=104) CREATININE (BEAKER) (test 0.60 mg/dL 0.50-1.20 bfrp=990) GLUCOSE RANDOM (BEAKER) 149 mg/dL 70-110 (test tuwu=745) CALCIUM (BEAKER) (test 8.2 mg/dL 8.5-10.5 jfnm=270) EGFR (BEAKER) (test 131 mL/min/1.73 sq m ESTIMATED GFR IS NOT mdet=0172) ACCURATE CREATININE CLEARANCE IN PREDICTING GLOMERULAR FILTRATION RATE. ESTIMATED GFR IS NOT APPLICABLE FOR DIALYSIS PATIENTS. CBC W/PLT COUNT & AUTO [id number] 05:59:00 Test Item Value Reference Range Comments WHITE BLOOD CELL COUNT (BEAKER) (test emae=085) 6.6 K/ L 4.0-10.0 RED BLOOD CELL COUNT (BEAKER) (test xjye=676) 2.99 M/ L 4.20-5.80 HEMOGLOBIN (BEAKER) (test oudw=547) 8.8 GM/DL 13.0-16.8 HEMATOCRIT (BEAKER) (test lwqo=246) 28.3 % 40.0-50.0 MEAN CORPUSCULAR VOLUME (BEAKER) (test dfsr=406) 94.6 fL 82.0-98.0 MEAN CORPUSCULAR HEMOGLOBIN (BEAKER) (test 29.5 pg 27.0-33.0 crnj=926) MEAN CORPUSCULAR HEMOGLOBIN CONC (BEAKER) (test 31.2 GM/DL 32.0-36.0 auad=407) RED CELL DISTRIBUTION WIDTH (BEAKER) (test 16.1 % 12.0-15.0 ucxi=561) PLATELET COUNT (BEAKER) (test ahtf=466) 119 K/CU MM 150-430 MEAN PLATELET VOLUME (BEAKER) (test hwks=324) 8.3 fL 6.5-10.5 NUCLEATED RED BLOOD CELLS (BEAKER) (test 0 /100 WBC 0-0 jcjg=392) NEUTROPHILS RELATIVE PERCENT (BEAKER) (test 61 % vbmc=474) LYMPHOCYTES RELATIVE PERCENT (BEAKER) (test 22 % aacn=097) MONOCYTES RELATIVE PERCENT (BEAKER) (test 10 % bbnv=364) EOSINOPHILS RELATIVE PERCENT (BEAKER) (test 7 % lnko=813) BASOPHILS RELATIVE PERCENT (BEAKER) (test 1 % zqox=656) NEUTROPHILS ABSOLUTE COUNT (BEAKER) (test 4.10 K/ L 1.80-8.00 turp=208) LYMPHOCYTES ABSOLUTE COUNT (BEAKER) (test 1.40 K/ L 1.48-4.50 eyti=673) MONOCYTES ABSOLUTE COUNT (BEAKER) (test 0.60 K/ L 0.00-1.30 vcpw=957) EOSINOPHILS ABSOLUTE COUNT (BEAKER) (test 0.50 K/ L 0.00-0.50 dnjw=063) BASOPHILS ABSOLUTE COUNT (BEAKER) (test 0.00 K/ L 0.00-0.20 wsjq=219) LEGIONELLA ANTIGEN, [id number] 22:05:00 Test Item Value Reference Range Comments L. PNEUMOPHILA SEROGP 1 Negative - see Negative for L. UR AG (BEAKER) (test comment pneumophila serogroup 1 uewd=3033) antigen, suggesting no recent or current infection with this serogroup. Legionellosis cannot be ruled out since other serogroups and species may cause disease. STREP PNEUMONIAE [id number] 22:05:00 Test Item Value Reference Range Comments STREP PNEUMONIAE ANTIGEN Presumptive negative for Presumptive negative for (BEAKER) (test pneumococcal pneumonia - pneumococcal pneumonia - spnf=1952) see comment see commen Presumptive negative for pneumococcal pneumonia, suggesting no current or recent pneumococcal infection. Infection due to S. pneumoniae cannot be ruled out since the antigen present in the sample may be below the detection limit of the test.POCT-GLUCOSE [id number] 21:16:00 Test Item Value Reference Range Comments POC-GLUCOSE METER (BEAKER) 127 mg/dL 70-110 TESTED AT [facility] [address] [facility] (test msjn=5003) [facility] [address] POCT-GLUCOSE [id number] 18:08:00 Test Item Value Reference Range Comments POC-GLUCOSE METER (BEAKER) 242 mg/dL 70-110 TESTED AT [facility] [address] [facility] (test zsmw=8159) WAY [facility] [address] CT, CHEST, WITHOUT [id number] 15:33:00FINAL REPORT CT of the Chest dated [...] liver suspicious for hepatocellular carcinoma. Signed: Kathe Melvineport Verified Date/Time: 09/23/2017 15:33: 18 Reading Location: [facility] B1 C013Y CT Body Reading Room TISSUE [id number] 14:19: 00Surgical Pathology Report Case: [id number] Authorizing Provider: Narayan Reyes MD Collected : 09/20/2017 0908 Ordering Location: [facility] - Perioperative Received: 09/21/2017 0851 Services Pathologist: Lencho De La Garza MD Specimen: Polyp, Colon - Right/Ascending COLON, RIGHT/ASCENDING POLYP, COLONOSCOPY- POLYPOID COLONIC MUCOSA CONSISTENT WITH MUCOSAL TAG- NO ADENOMATOUS CHANGE OR MALIGNANCY IDENTIFIED Signing Pathologist Direct Phone Line: [phone] signed by Lencho De La Garza MD on 09/23/2017 at 2:19 [id number] and anemia; procedure is colonoscopy Polyp right/ascendingThe instrument, paperwork, container, and cassette all read [id number].Received in formalin labeled with the patient's name (Khadijah) and medical record number.Specimen A: Receivedin formalin labeled as "right/ascending polyp" is one tissue 3 x 3 x 1 mm, all in cassette A1. JF/ewThe following special studies were performed on this case and the interpretation is incorporated in the diagnostic report above:IDCV:[id number] 12:31:00 Test Item Value Reference Range Comments PROCALCITONIN (BEAKER) (test awfp=9063) 0.13 ng/mL <0.05 SEPSIS RISK (ng/mL)Low: 0.05-0.50Intermediate: 0.51-2.00High: & gt;=2.01POCT-GLUCOSE [id number] 11:53:00 Test Item Value Reference Range Comments POC-GLUCOSE METER (BEAKER) 227 mg/dL 70-110 TESTED AT [facility] [address] [facility] (test xooz=7741) [facility] [address] POCT-GLUCOSE [id number] 08:09:00 Test Item Value Reference Range Comments POC-GLUCOSE METER (BEAKER) 167 mg/dL 70-110 TESTED AT [facility] [address] [facility] (test cswm=9787) [facility] [address] [id number] 08:05:00 Test Item Value Reference Range Comments MAGNESIUM (BEAKER) (test pwyt=404) 1.5 mg/dL 1.5-3.0 COMPREHENSIVE METABOLIC [id number] 06:54:00 Test Item Value Reference Range Comments TOTAL PROTEIN (BEAKER) 6.0 gm/dL 6.0-8.5 (test leef=725) ALBUMIN (BEAKER) (test 2.6 g/dL 3.5-5.0 lnjv=7579) ALKALINE PHOSPHATASE 96 U/L 30-115 (BEAKER) (test mdlr=540) BILIRUBIN TOTAL (BEAKER) 1.4 mg/dL 0.1-1.3 (test brxy=315) SODIUM (BEAKER) (test 138 meq/L 135-148 ehrd=066) POTASSIUM (BEAKER) (test 3.0 meq/L 3.5-5.5 fqrz=871) CHLORIDE (BEAKER) (test 101 meq/L 98-106 ajoz=447) CO2 (BEAKER) (test 30 meq/L 20-31 rzeq=075) BLOOD UREA NITROGEN 10 mg/dL 10-26 (BEAKER) (test rana=220) CREATININE (BEAKER) (test 0.61 mg/dL 0.50-1.20 hbwq=400) GLUCOSE RANDOM (BEAKER) 142 mg/dL 70-110 (test lygh=542) CALCIUM (BEAKER) (test 8.3 mg/dL 8.5-10.5 igbe=096) AST (SGOT) (BEAKER) (test 52 U/L 5-40 cyxq=328) ALT (SGPT) (BEAKER) (test 27 U/L 6-50 dmlv=451) EGFR (BEAKER) (test 129 mL/min/1.73 sq ESTIMATED GFR IS NOT wfxk=3781) m ACCURATE CREATININE CLEARANCE IN PREDICTING GLOMERULAR FILTRATION RATE. ESTIMATED GFR IS NOT APPLICABLE FOR DIALYSIS PATIENTS. CBC W/PLT COUNT & AUTO [id number] 06:24:00 Test Item Value Reference Range Comments WHITE BLOOD CELL COUNT (BEAKER) (test jkev=494) 6.4 K/ L 4.0-10.0 RED BLOOD CELL COUNT (BEAKER) (test boxx=664) 2.97 M/ L 4.20-5.80 HEMOGLOBIN (BEAKER) (test gzgg=808) 9.0 GM/DL 13.0-16.8 HEMATOCRIT (BEAKER) (test wqqv=206) 28.1 % 40.0-50.0 MEAN CORPUSCULAR VOLUME (BEAKER) (test fsae=139) 94.6 fL 82.0-98.0 MEAN CORPUSCULAR HEMOGLOBIN (BEAKER) (test 30.3 pg 27.0-33.0 llcc=729) MEAN CORPUSCULAR HEMOGLOBIN CONC (BEAKER) (test 32.0 GM/DL 32.0-36.0 ltcm=738) RED CELL DISTRIBUTION WIDTH (BEAKER) (test 17.2 % 12.0-15.0 xcuw=541) PLATELET COUNT (BEAKER) (test rucz=699) 135 K/CU MM 150-430 MEAN PLATELET VOLUME (BEAKER) (test egve=403) 8.1 fL 6.5-10.5 NUCLEATED RED BLOOD CELLS (BEAKER) (test 0 /100 WBC 0-0 cmqh=743) NEUTROPHILS RELATIVE PERCENT (BEAKER) (test 53 % pnna=536) LYMPHOCYTES RELATIVE PERCENT (BEAKER) (test 23 % tffw=012) MONOCYTES RELATIVE PERCENT (BEAKER) (test 17 % fdcl=022) EOSINOPHILS RELATIVE PERCENT (BEAKER) (test 6 % zcfb=000) BASOPHILS RELATIVE PERCENT (BEAKER) (test 1 % fgih=219) NEUTROPHILS ABSOLUTE COUNT (BEAKER) (test 3.40 K/ L 1.80-8.00 tkzd=838) LYMPHOCYTES ABSOLUTE COUNT (BEAKER) (test 1.50 K/ L 1.48-4.50 nfed=918) MONOCYTES ABSOLUTE COUNT (BEAKER) (test 1.10 K/ L 0.00-1.30 hvbx=127) EOSINOPHILS ABSOLUTE COUNT (BEAKER) (test 0.40 K/ L 0.00-0.50 wqdd=067) BASOPHILS ABSOLUTE COUNT (BEAKER) (test 0.00 K/ L 0.00-0.20 cwef=543) POCT-GLUCOSE [id number] 00:35:00 Test Item Value Reference Range Comments POC-GLUCOSE METER (BEAKER) 171 mg/dL 70-110 TESTED AT [facility] [address] [facility] (test muxt=3823) [place] [address] [id number] 18:12:00Medical Cytology Report Case: [id number] Authorizing Provider: Tamanna Herrera MD Collected: 09/18/2017 1735 Ordering Location: [address] SURGICAL Received: 09/21/2017 1009 Pathologist: Mircale Kaiser MD Specimen: Pleural, Right RIGHT PLEURAL FLUID, CYTOLOGIC PREPARATION:NO MALIGNANT CELLS IDENTIFIED. Signing Pathologist Direct Phone Line: [phone] signed by Miracle Kaiser MD on 2017 at 6:12 [id number] bleedRight pleural cavityCollected: 09/18/20171734Received: 09/21/2017 693003 ml yellow fluid received fresh; 4 cytospinsAll cytologic preparations have been microscopically examined. The pertinent microscopic examination findings have been incorporated into the diagnosis rendered above.[facility]. [facility], Department of Pathology, [address] [place] [address], [facility] Department of Pathology, [address] [place] [address], [facility] Department of Pathology, [address] [place] [address], Tel TISSUE [id number] 16:29:00Surgical Pathology Report Case: [id number] Authorizing Provider: Narayan Reyes MD Collected: 09/19/2017 1138 Ordering Location: [address] MEDICAL SURGICAL Received: 2017 0828 Pathologist: Lencho De La Garza MD Specimen: Duodenum, bx DUODENUM, BIOPSY: - SUPERFICIAL FRAGMENTS OF UNREMARKABLE DUODENAL MUCOSA - NO ACTIVE INFLAMMATION, GRANULOMAS, FOAMY HISTIOCYTES, PARASITES, OR INCREASED INTRAEPITHELIAL LYMPHOCYTES IDENTIFIED - NO ADENOMATOUS CHANGE, DYSPLASIA OR MALIGNANCY IDENTIFIED Signing Pathologist Direct Phone Line: [phone] signed by Lencho De La Garza MD on 09/22/2017 at 4:29 [id number]; procedure upper endoscopy Duodenum The instrument, paperwork, container, and cassette all read [id number].Received in formalin labeled with the patient's name (Khadijah) and medical record number.Specimen A: Received in formalin labeled as "duodenum" is one tissue 3 x 3 x 1 mm with a few flecks of debris, all in cassette A1. JF/ewPOCT-GLUCOSE [id number] 16:14:00 Test Item Value Reference Range Comments POC-GLUCOSE METER (BEAKER) 221 mg/dL 70-110 TESTED AT [facility] [address] [facility] (test uwtb=1048) [facility] [address] [id number] 14:45:00 Test Item Value Reference Range Comments FERRITIN (BEAKER) (test lvbi=213) 68 ng/mL 22-322 RAD, CHEST, 1 VIEW, NON [id number] 14:35:00Reason for exam:->pulmonary edemaShould this be performed [...] in bilateral pulmonary opacities. Signed: Travis Gomez MDReport Verified Date/ Time: 09/22/2017 14:35:18 Reading Location: [facility] Diagnostic Imaging Reading Room - [facility] 1.310.12 Electronically signed by: TRAVIS GOMEZ M.D. on 02:35 PMIRON, TIBC, % SAT. (WITHOUT FERRITIN)2017-09-22 14:30:00 Test Item Value Reference Range Comments IRON (BEAKER) (test mdui=729) 34 ug/dL 35-175 TOTAL IRON BINDING CAPACITY (BEAKER) (test 269 ug/dL 250-550 viwv=674) IRON % SATURATION (2) (BEAKER) (test vpkv=2187) 13 % 20-55 POCT-GLUCOSE [id number] 12:14:00 Test Item Value Reference Range Comments POC-GLUCOSE METER (BEAKER) 233 mg/dL 70-110 TESTED AT [facility] [address] [facility] (test gasx=2499) [facility] [address] U/S, ABDOMINAL, [id number] 11:12:00Reason for exam:->ascitesFINAL REPORT Technique: Limited abdominal ultrasound dated 09/22. HISTORY: Ascites check. COMPARISON: None IMPRESSION:Small amount of abdominal ascites is seen in all four quadrants. Nodular liver contour is compatible with cirrhosis. Signed: Jada Maddox MDReport Verified Date/ Time: 09/22/2017 11:12:47 Reading Location: [facility] Radiology Reading Room [id number] 11:06:00 Test Item Value Reference Range Comments AMMONIA (BEAKER) (test mbkl=812) 66 mol/L 12-72 BLOOD GAS, [id number] 17:43:00 Test Item Value Reference Range Comments PH ARTERIAL (BEAKER) (test bwoo=754) 7.52 7.35-7.45 PCO2 ARTERIAL (BEAKER) (test duax=208) 41 mmHg 35-45 PO2 ARTERIAL (BEAKER) (test vtcy=309) 60 mmHg 80-90 O2 SATURATION ARTERIAL (BEAKER) (test nfwi=577) 93.2 % 96.0-97.0 HCO3 ARTERIAL (BEAKER) (test nvkr=018) 33 mmol/L 21-29 BASE EXCESS ARTERIAL (BEAKER) (test mixi=673) 9.1 mmol/L -2.0-3.0 PATIENT TEMPERATURE (BEAKER) (test rodx=7009) 37.0 C FIO2 (BEAKER) (test pkwo=0298) 45.0 % U/S, [id number] 16:39:00Reason for exam:->THORACENTESIS RIGHT SIDEFINAL REPORT EXAM: Limited ultrasound of right chest CLINICAL HISTORY: Pleural effusion FINDINGS: Limited evaluation of the right chest demonstrates trace free fluid in the rightpleural space. Thoracentesis was not performed. Signed: Cris Malhotra MDReport Verified Date/Time: 09/21/2017 16:39 :54 Reading Location: [facility] Radiology Reading Room POCT-GLUCOSE [id number] 16:35: 00 Test Item Value Reference Range Comments POC-GLUCOSE METER (BEAKER) 138 mg/dL 70-110 TESTED AT [facility] [address] [facility] (test yjsr=6365) [address] [facility] [address] POCT-GLUCOSE [id number] 11:59:00 Test Item Value Reference Range Comments POC-GLUCOSE METER (BEAKER) 261 mg/dL 70-110 TESTED AT [facility] [address] [facility] (test blxb=2855) [facility] [address] BODY FLUID CELL COUNT WITH [id number] 08:40:00 Test Item Value Reference Range Comments APPEARANCE FLUID (BEAKER) (test Slightly Hazy Clear smyy=483) COLOR FLUID (BEAKER) (test Yellow Colorless, Straw dsrh=408) RBC FLUID (BEAKER) (test 320 /uL <=1 hjyy=536) ADJUSTED WBC FLUID (BEAKER) 355 /cu mm <=5 (test qfur=4353) LINING CELLS (BEAKER) (test 53 /cu mm <=1 gteu=0213) NEUTROPHILS FLUID (BEAKER) 26 % (test jsgd=6117) LYMPHS FLUID (BEAKER) (test 43 % olah=375) MONO/MACROPHAGE FLUID (BEAKER) 31 % (test mkgq=197) EOSINOPHILS FLUID (BEAKER) 0 % (test ymnm=506) BASO FLUID (BEAKER) (test 0 % aivh=572) INTERPRETATION-210 (BEAKER) No malignant cells (test otsw=6718) identified. [id number] (BEAKER) Miracle Carmen Kaiser (test cbui=9187) CONTAINER BODY FLUID (BEAKER) EDTA Tube (test gcpk=7006) BODY FLUID CULTURE + GRAM [id number] 08:19:00 Test Item Value Reference Range Comments CULTURE (BEAKER) (test knrs=7707) No growth GRAM STAIN RESULT (BEAKER) (test 3+ White blood cells seen luja=5419) GRAM STAIN RESULT (BEAKER) (test No organisms seen luwn=06265) POCT-GLUCOSE [id number] 07:38:00 Test Item Value Reference Range Comments POC-GLUCOSE METER (BEAKER) 157 mg/dL 70-110 TESTED AT [facility] [address] [facility] (test zodv=4546) [facility] [address] BASIC METABOLIC [id number] 06:50:00 Test Item Value Reference Range Comments SODIUM (BEAKER) (test 140 meq/L 135-148 yudw=789) POTASSIUM (BEAKER) (test 3.2 meq/L 3.5-5.5 yilo=523) CHLORIDE (BEAKER) (test 102 meq/L 98-106 tdhu=786) CO2 (BEAKER) (test 28 meq/L 20-31 yqch=841) BLOOD UREA NITROGEN 11 mg/dL 10-26 (BEAKER) (test zqfr=004) CREATININE (BEAKER) (test 0.61 mg/dL 0.50-1.20 tnek=087) GLUCOSE RANDOM (BEAKER) 139 mg/dL 70-110 (test njpw=252) CALCIUM (BEAKER) (test 7.8 mg/dL 8.5-10.5 vapy=722) EGFR (BEAKER) (test 129 mL/min/1.73 sq m ESTIMATED GFR IS NOT ocxe=1460) ACCURATE CREATININE CLEARANCE IN PREDICTING GLOMERULAR FILTRATION RATE. ESTIMATED GFR IS NOT APPLICABLE FOR DIALYSIS PATIENTS. HEPATIC FUNCTION [id number] 06:50:00 Test Item Value Reference Range Comments TOTAL PROTEIN (BEAKER) (test zfiu=723) 5.6 gm/dL 6.0-8.5 ALBUMIN (BEAKER) (test slxc=8625) 2.4 g/dL 3.5-5.0 BILIRUBIN TOTAL (BEAKER) (test dqby=813) 1.4 mg/dL 0.1-1.3 BILIRUBIN DIRECT (BEAKER) (test wxql=951) 0.7 mg/dL 0.0-0.5 ALKALINE PHOSPHATASE (BEAKER) (test dkcp=954) 77 U/L 30-115 AST (SGOT) (BEAKER) (test sltr=015) 54 U/L 5-40 ALT (SGPT) (BEAKER) (test xwyl=631) 24 U/L 6-50 CBC W/PLT COUNT & AUTO [id number] 06:37:00 Test Item Value Reference Range Comments WHITE BLOOD CELL COUNT (BEAKER) (test dsgh=620) 6.5 K/ L 4.0-10.0 RED BLOOD CELL COUNT (BEAKER) (test kzks=161) 2.69 M/ L 4.20-5.80 HEMOGLOBIN (BEAKER) (test flue=995) 8.2 GM/DL 13.0-16.8 HEMATOCRIT (BEAKER) (test icvj=863) 25.6 % 40.0-50.0 MEAN CORPUSCULAR VOLUME (BEAKER) (test qgxu=664) 95.4 fL 82.0-98.0 MEAN CORPUSCULAR HEMOGLOBIN (BEAKER) (test 30.6 pg 27.0-33.0 larm=484) MEAN CORPUSCULAR HEMOGLOBIN CONC (BEAKER) (test 32.1 GM/DL 32.0-36.0 miwi=448) RED CELL DISTRIBUTION WIDTH (BEAKER) (test 16.2 % 12.0-15.0 rusv=071) PLATELET COUNT (BEAKER) (test ncvr=799) 124 K/CU MM 150-430 MEAN PLATELET VOLUME (BEAKER) (test lfjp=506) 8.2 fL 6.5-10.5 NUCLEATED RED BLOOD CELLS (BEAKER) (test 0 /100 WBC 0-0 ifoy=714) NEUTROPHILS RELATIVE PERCENT (BEAKER) (test 61 % hruq=755) LYMPHOCYTES RELATIVE PERCENT (BEAKER) (test 21 % qcls=470) MONOCYTES RELATIVE PERCENT (BEAKER) (test 14 % ylki=555) EOSINOPHILS RELATIVE PERCENT (BEAKER) (test 3 % ufwf=922) BASOPHILS RELATIVE PERCENT (BEAKER) (test 0 % cosr=530) NEUTROPHILS ABSOLUTE COUNT (BEAKER) (test 4.00 K/ L 1.80-8.00 mngo=569) LYMPHOCYTES ABSOLUTE COUNT (BEAKER) (test 1.40 K/ L 1.48-4.50 xpkp=162) MONOCYTES ABSOLUTE COUNT (BEAKER) (test 0.90 K/ L 0.00-1.30 xtte=805) EOSINOPHILS ABSOLUTE COUNT (BEAKER) (test 0.20 K/ L 0.00-0.50 exim=136) BASOPHILS ABSOLUTE COUNT (BEAKER) (test 0.00 K/ L 0.00-0.20 tmmh=442) HEMOGLOBIN AND [id number] 06:36:00 Test Item Value Reference Range Comments HEMOGLOBIN (BEAKER) (test jsgj=708) 8.2 GM/DL 13.0-16.8 HEMATOCRIT (BEAKER) (test stex=481) 25.6 % 40.0-50.0 RAD, CHEST, 1 VIEW, NON [id number] 03:55:00Reason for exam:->sob, h/o pleural effShould this [...] MDReport Verified Date/Time: 09/21/2017 03:55:11 Reading Location: [address] Body Reading Room HEPATITIS PANEL, [id number] 18:08:00 Test Item Value Reference Range Comments HEPATITIS A IGM ANTIBODY (BEAKER) (test Nonreactive Nonreactive ziej=908) HEPATITIS B CORE IGM ANTIBODY (BEAKER) (test Nonreactive Nonreactive xnlm=502) HEPATITIS C ANTIBODY (BEAKER) (test bsan=990) Nonreactive Nonreactive HEPATITIS B SURFACE ANTIGEN (2) (BEAKER) (test Nonreactive Nonreactive vpjs=7746) HEMOGLOBIN AND [id number] 13:04:00 Test Item Value Reference Range Comments HEMOGLOBIN (BEAKER) (test klgn=611) 8.5 GM/DL 13.0-16.8 HEMATOCRIT (BEAKER) (test lkvm=026) 27.6 % 40.0-50.0 POCT-GLUCOSE [id number] 08:36:00 Test Item Value Reference Range Comments POC-GLUCOSE METER (BEAKER) 173 mg/dL 70-110 TESTED AT [facility] [address] [facility] (test vkhe=2635) [facility] [address] BASIC METABOLIC [id number] 06:05:00 Test Item Value Reference Range Comments SODIUM (BEAKER) (test 140 meq/L 135-148 zqcc=232) POTASSIUM (BEAKER) (test 3.3 meq/L 3.5-5.5 rmok=276) CHLORIDE (BEAKER) (test 102 meq/L 98-106 kzdd=179) CO2 (BEAKER) (test 28 meq/L 20-31 xkug=997) BLOOD UREA NITROGEN 20 mg/dL 10-26 (BEAKER) (test wzej=181) CREATININE (BEAKER) (test 0.74 mg/dL 0.50-1.20 mqst=214) GLUCOSE RANDOM (BEAKER) 177 mg/dL 70-110 (test xcce=104) CALCIUM (BEAKER) (test 8.0 mg/dL 8.5-10.5 pzxm=943) EGFR (BEAKER) (test 103 mL/min/1.73 sq m ESTIMATED GFR IS NOT ztep=6037) ACCURATE CREATININE CLEARANCE IN PREDICTING GLOMERULAR FILTRATION RATE. ESTIMATED GFR IS NOT APPLICABLE FOR DIALYSIS PATIENTS. HEPATIC FUNCTION [id number] 06:05:00 Test Item Value Reference Range Comments TOTAL PROTEIN (BEAKER) (test obty=487) 6.0 gm/dL 6.0-8.5 ALBUMIN (BEAKER) (test qant=5916) 2.6 g/dL 3.5-5.0 BILIRUBIN TOTAL (BEAKER) (test zivb=820) 1.6 mg/dL 0.1-1.3 BILIRUBIN DIRECT (BEAKER) (test mswd=115) 0.8 mg/dL 0.0-0.5 ALKALINE PHOSPHATASE (BEAKER) (test jqew=685) 82 U/L 30-115 AST (SGOT) (BEAKER) (test hawh=955) 66 U/L 5-40 ALT (SGPT) (BEAKER) (test xdcy=294) 28 U/L 6-50 CBC W/PLT COUNT & AUTO [id number] 05:38:00 Test Item Value Reference Range Comments WHITE BLOOD CELL COUNT (BEAKER) (test hrmj=429) 12.1 K/ L 4.0-10.0 RED BLOOD CELL COUNT (BEAKER) (test icui=593) 2.56 M/ L 4.20-5.80 HEMOGLOBIN (BEAKER) (test vsxf=540) 8.0 GM/DL 13.0-16.8 HEMATOCRIT (BEAKER) (test ftxm=090) 24.6 % 40.0-50.0 MEAN CORPUSCULAR VOLUME (BEAKER) (test ybar=583) 96.0 fL 82.0-98.0 MEAN CORPUSCULAR HEMOGLOBIN (BEAKER) (test 31.2 pg 27.0-33.0 llrg=145) MEAN CORPUSCULAR HEMOGLOBIN CONC (BEAKER) (test 32.5 GM/DL 32.0-36.0 mcar=414) RED CELL DISTRIBUTION WIDTH (BEAKER) (test 16.3 % 12.0-15.0 cpjq=400) PLATELET COUNT (BEAKER) (test rdcu=128) 148 K/CU MM 150-430 MEAN PLATELET VOLUME (BEAKER) (test nqtd=101) 8.2 fL 6.5-10.5 NUCLEATED RED BLOOD CELLS (BEAKER) (test 0 /100 WBC 0-0 xisp=169) NEUTROPHILS RELATIVE PERCENT (BEAKER) (test 76 % vwfp=366) LYMPHOCYTES RELATIVE PERCENT (BEAKER) (test 10 % kswb=232) MONOCYTES RELATIVE PERCENT (BEAKER) (test 13 % fmjj=321) EOSINOPHILS RELATIVE PERCENT (BEAKER) (test 0 % tifr=332) BASOPHILS RELATIVE PERCENT (BEAKER) (test 0 % efwr=702) NEUTROPHILS ABSOLUTE COUNT (BEAKER) (test 9.20 K/ L 1.80-8.00 gzya=055) LYMPHOCYTES ABSOLUTE COUNT (BEAKER) (test 1.20 K/ L 1.48-4.50 fxxd=199) MONOCYTES ABSOLUTE COUNT (BEAKER) (test 1.60 K/ L 0.00-1.30 tjoz=724) EOSINOPHILS ABSOLUTE COUNT (BEAKER) (test 0.00 K/ L 0.00-0.50 vwfe=345) BASOPHILS ABSOLUTE COUNT (BEAKER) (test 0.00 K/ L 0.00-0.20 dhgg=320) POCT-GLUCOSE [id number] 15:55:00 Test Item Value Reference Range Comments POC-GLUCOSE METER (BEAKER) 277 mg/dL 70-110 TESTED AT [facility] [address] [facility] (test eptd=8275) [facility] [address] [id number] 15:43:00 Test Item Value Reference Range Comments MAGNESIUM (BEAKER) (test fnqe=331) 1.9 mg/dL 1.5-3.0 BASIC METABOLIC [id number] 15:43:00 Test Item Value Reference Range Comments SODIUM (BEAKER) (test 136 meq/L 135-148 gaub=407) POTASSIUM (BEAKER) (test 3.8 meq/L 3.5-5.5 qfyz=271) CHLORIDE (BEAKER) (test 101 meq/L 98-106 mazp=488) CO2 (BEAKER) (test 24 meq/L 20-31 kwsd=490) BLOOD UREA NITROGEN 23 mg/dL 10-26 (BEAKER) (test ikuu=383) CREATININE (BEAKER) (test 0.88 mg/dL 0.50-1.20 hemc=489) GLUCOSE RANDOM (BEAKER) 284 mg/dL 70-110 (test zpce=025) CALCIUM (BEAKER) (test 8.1 mg/dL 8.5-10.5 mnfk=225) EGFR (BEAKER) (test 84 mL/min/1.73 sq m ESTIMATED GFR IS NOT svur=9570) ACCURATE CREATININE CLEARANCE IN PREDICTING GLOMERULAR FILTRATION RATE. ESTIMATED GFR IS NOT APPLICABLE FOR DIALYSIS PATIENTS. HEMOGLOBIN AND [id number] 15:37:00 Test Item Value Reference Range Comments HEMOGLOBIN (BEAKER) (test ssgd=197) 8.2 GM/DL 13.0-16.8 HEMATOCRIT (BEAKER) (test vcck=689) 25.9 % 40.0-50.0 POCT-GLUCOSE [id number] 10:38:00 Test Item Value Reference Range Comments POC-GLUCOSE METER (BEAKER) 224 mg/dL 70-110 TESTED AT [address] (test zvel=9580) [facility] [address] HEMOGLOBIN [id number] 09:10:00 Test Item Value Reference Range Comments HEMOGLOBIN A1C (BEAKER) (test ksiv=232) 5.5 % 4.3-6.1 TROPONIN [id number] 06:50:00 Test Item Value Reference Range Comments TROPONIN I (BEAKER) (test anpw=859) 0.49 ng/mL 0.00-0.15 Troponin I (TnI) levels [...] and persistent tachyarrhythmia.RAD, CHEST, 1 VIEW, NON [id number] 06:49:00Reason for exam:->dyspneaShould this be performed at [...] adenopathy.Additional findings: None. Signed: JR Tenorio Robert MDReport Verified Date/Time: 09/19/2017 06:49:48 Reading Location: [place] [address] CT Body Reading Room HEPATIC FUNCTION [id number] 06:40:00 Test Item Value Reference Range Comments TOTAL PROTEIN (BEAKER) (test kbnl=425) 6.6 gm/dL 6.0-8.5 ALBUMIN (BEAKER) (test mgjk=0345) 2.9 g/dL 3.5-5.0 BILIRUBIN TOTAL (BEAKER) (test mmvs=365) 1.8 mg/dL 0.1-1.3 BILIRUBIN DIRECT (BEAKER) (test svou=018) 1.0 mg/dL 0.0-0.5 ALKALINE PHOSPHATASE (BEAKER) (test uvuz=128) 94 U/L 30-115 AST (SGOT) (BEAKER) (test sfdc=891) 70 U/L 5-40 ALT (SGPT) (BEAKER) (test fzfe=295) 30 U/L 6-50 LIPID [id number] 06:39:00 Test Item Value Reference Range Comments TRIGLYCERIDES (BEAKER) (test jkad=863) 91 mg/dL CHOLESTEROL (BEAKER) (test qadq=307) 152 mg/dL HDL CHOLESTEROL (BEAKER) (test jqlr=960) 16 mg/dL LDL CHOLESTEROL CALCULATED (BEAKER) (test 118 mg/dL lcee=717) Triglyceride Reference Range: Low Risk <150 Borderline 150- 199 High Risk 200-499 Very High Risk >=500Cholesterol Reference Range: Low Risk <200 Borderline 200-239 High Risk > 240HDL Cholesterol Reference Range: Low Risk >=60 High Risk <40LDL Cholesterol Reference Range: Optimal <100 Near Optimal 100-129 Borderline 130-159 High 160-189 Very High >=190BASI METABOLIC [id number] 06:39:00 Test Item Value Reference Range Comments SODIUM (BEAKER) (test 139 meq/L 135-148 jkqk=381) POTASSIUM (BEAKER) (test 4.1 meq/L 3.5-5.5 fwsq=450) CHLORIDE (BEAKER) (test 104 meq/L 98-106 wylp=409) CO2 (BEAKER) (test 24 meq/L 20-31 qfjd=571) BLOOD UREA NITROGEN 21 mg/dL 10-26 (BEAKER) (test tucq=484) CREATININE (BEAKER) (test 0.77 mg/dL 0.50-1.20 dgsx=140) GLUCOSE RANDOM (BEAKER) 206 mg/dL 70-110 (test yqvj=616) CALCIUM (BEAKER) (test 8.2 mg/dL 8.5-10.5 emkh=439) EGFR (BEAKER) (test 98 mL/min/1.73 sq m ESTIMATED GFR IS NOT rzbx=2006) ACCURATE CREATININE CLEARANCE IN PREDICTING GLOMERULAR FILTRATION RATE. ESTIMATED GFR IS NOT APPLICABLE FOR DIALYSIS PATIENTS. CBC W/PLT COUNT & AUTO [id number] 06:33:00 Test Item Value Reference Range Comments WHITE BLOOD CELL COUNT 12.3 K/ L 4.0-10.0 (BEAKER) (test sldo=660) RED BLOOD CELL COUNT (BEAKER) 2.93 M/ L 4.20-5.80 (test lvby=199) HEMOGLOBIN (BEAKER) (test 8.6 GM/DL 13.0-16.8 ojkz=949) HEMATOCRIT (BEAKER) (test 28.6 % 40.0-50.0 twko=705) MEAN CORPUSCULAR VOLUME 97.6 fL 82.0-98.0 (BEAKER) (test kotn=234) MEAN CORPUSCULAR HEMOGLOBIN 29.4 pg 27.0-33.0 (BEAKER) (test ccfy=271) MEAN CORPUSCULAR HEMOGLOBIN 30.1 GM/DL 32.0-36.0 CONC (BEAKER) (test xvxy=657) RED CELL DISTRIBUTION WIDTH 16.0 % 12.0-15.0 (BEAKER) (test xvxo=151) PLATELET COUNT (BEAKER) (test 157 K/CU MM 150-430 Discordant result compared wkpj=988) to previous result. Clinical correlation required. MEAN PLATELET VOLUME (BEAKER) 8.8 fL 6.5-10.5 (test zxwn=139) NUCLEATED RED BLOOD CELLS 0 /100 WBC 0-0 (BEAKER) (test cftv=171) NEUTROPHILS RELATIVE PERCENT 84 % (BEAKER) (test pakp=893) LYMPHOCYTES RELATIVE PERCENT 7 % (BEAKER) (test pkxf=285) MONOCYTES RELATIVE PERCENT 9 % (BEAKER) (test nhxl=597) EOSINOPHILS RELATIVE PERCENT 0 % (BEAKER) (test ktpa=423) BASOPHILS RELATIVE PERCENT 0 % (BEAKER) (test tzpg=633) NEUTROPHILS ABSOLUTE COUNT 10.30 K/ L 1.80-8.00 (BEAKER) (test xnsf=453) LYMPHOCYTES ABSOLUTE COUNT 0.80 K/ L 1.48-4.50 (BEAKER) (test spby=322) MONOCYTES ABSOLUTE COUNT 1.10 K/ L 0.00-1.30 (BEAKER) (test axph=710) EOSINOPHILS ABSOLUTE COUNT 0.00 K/ L 0.00-0.50 (BEAKER) (test fpjt=748) BASOPHILS ABSOLUTE COUNT 0.00 K/ L 0.00-0.20 (BEAKER) (test srbi=039) PROTHROMBIN [id number] 06:30:00 Test Item Value Reference Range Comments PROTIME (BEAKER) (test rcxt=163) 21.1 seconds 11.8-14.4 INR (BEAKER) (test iwka=142) 1.8 1.2-1.5 RECOMMENDED COUMADIN/WARFARIN INR THERAPY RANGESSTANDARD DOSE: 2.0 - 3.0 Includes: PROPHYLAXIS forvenous thrombosis, systemic embolization; TREATMENT for venous thrombosis and/or pulmonary embolus.HIGH RISK: Target INR is 2.5-3.5 for patients with mechanical heart valves.B-TYPE NATRIURETIC FACTOR (BNP)2017-08 06:06:00 Test Item Value Reference Range Comments B-TYPE NATRIURETIC PEPTIDE (BEAKER) (test 726 pg/mL 0-100 hwnt=357) TROPONIN [id number] 02:21:00 Test Item Value Reference Range Comments TROPONIN I (BEAKER) (test ibkj=079) 0.61 ng/mL 0.00-0.15 Troponin I (TnI) levels [...] acute neurological disease, and persistent tachyarrhythmia.HEMOGLOBIN AND [id number] 01: 53:00 Test Item Value Reference Range Comments HEMOGLOBIN (BEAKER) (test mthx=334) 8.2 GM/DL 13.0-16.8 HEMATOCRIT (BEAKER) (test dsew=844) 25.7 % 40.0-50.0 TYPE AND SCREEN, [id number] 19:59:00 Test Item Value Reference Range Comments ABO/RH AUTOMATED (BEAKER) (test ivqx=8830) O POSITIVE AB SCREEN (BEAKER) (test zhzg=395) NEGATIVE RAD, CHEST, 1 VIEW, NON [id number] 19:20:00PT IN RAD ROOM 1Reason for exam:- [...] acute osseous abnormalities are identified. Signed: Gerardo Catalaneport Verified Date/Time : 09/18/2017 19:20:43 Reading Location: [place] [address] Consult Reading Room BLOOD GAS, [id number] 18:57:00 Test Item Value Reference Range Comments PH ARTERIAL (BEAKER) (test lkzt=886) 7.45 7.35-7.45 PCO2 ARTERIAL (BEAKER) (test rgvy=532) 38 mmHg 35-45 PO2 ARTERIAL (BEAKER) (test gblw=772) 84 mmHg 80-90 O2 SATURATION ARTERIAL (BEAKER) (test hvdg=666) 96.8 % 96.0-97.0 HCO3 ARTERIAL (BEAKER) (test nqvn=214) 26 mmol/L 21-29 BASE EXCESS ARTERIAL (BEAKER) (test hyun=078) 2.0 mmol/L -2.0-3.0 PATIENT TEMPERATURE (BEAKER) (test jgqz=9421) 37.0 C FIO2 (BEAKER) (test txbr=2640) 100.0 % U/S, [id number] 18:46:00Laterality?->RightReason for exam:-> Right effusioinFINAL REPORT Exam: [...] Ultrasound guided right thoracentesis. Signed: Cris Malhotra MDReport Verified Date/Time: 201718:46:53 Reading Location: [facility] Radiology Reading Room LACTATE DEHYDROGENASE (LDH ), BODY [id number] 18:31:00 Test Item Value Reference Range Comments LACTATE DEHYDROGENASE FLUID (BEAKER) 104 U/L Light's criteria identifies (test cavd=348) effusions if one or more are pre Absence of reference range indicates that normals have not been defined.Assay performance has not been validated for this type of specimen.GLUCOSE, BODY [id number] 18:31:00 Test Item Value Reference Range Comments GLUCOSE, BODY FLUID (BEAKER) (test ssus=8144) 234 mg/dL 70-110 Absence of reference range indicates that normals have not been defined.Assay performance has not been validated for this type of specimen.ALBUMIN, BODY [id number] 18:31:00 Test Item Value Reference Range Comments ALBUMIN FLUID (BEAKER) (test ggox=039) 0.7 gm/dL Reference Range: No Normals Assay performance has not been validated for this type of specimen.PROTEIN, BODY [id number] 18:31:00 Test Item Value Reference Range Comments PROTEIN FLUID (BEAKER) (test 1.0 g/dL Light's criteria identifies xfom=601) effusions if one or more are pre Absence of reference range indicates that normals have not been defined.Assay performance has not been validated for this type of specimen.POCT-GLUCOSE [id number] 16:46:00 Test Item Value Reference Range Comments POC-GLUCOSE METER (BEAKER) 250 mg/dL 70-110 TESTED AT [facility] [id number] [place] [address] (test xnfw=2710) [facility] [address] [id number] 16:42:00 Test Item Value Reference Range Comments PROCALCITONIN (BEAKER) (test xkws=3301) 0.29 ng/mL <0.05 SEPSIS RISK (ng/mL)Low: 0.05-0.50Intermediate: 0.51-2.00High: & gt;=2.01LACTATE DEHYDROGENASE (LDH)2017-09-18 15:36:00 Test Item Value Reference Range Comments LACTATE DEHYDROGENASE (BEAKER) 344 U/L 125-225 Specimen slightly hemolyzed (test wfqt=456) TROPONIN [id number] 15:31:00 Test Item Value Reference Range Comments TROPONIN I (BEAKER) (test tmqr=740) 0.43 ng/mL 0.00-0.15 Troponin I (TnI) levels [...] and persistent tachyarrhythmia.CREATINE KINASE (CK), TOTAL AND [id number] 15:28:00 Test Item Value Reference Range Comments CREATINE KINASE TOTAL (BEAKER) (test vnwa=770) 153 U/L 30-300 CREATINE KINASE-MB (BEAKER) (test ewqb=038) 6.4 ng/mL 0.0-4.9 CREATINE KINASE-MB INDEX (BEAKER) (test xuum=623) 4.2 % CK-MB Reference Range:<5 Normal5-10 Borderline>10 AbnormalBASIC METABOLIC [id number] 15:20:00 Test Item Value Reference Range Comments SODIUM (BEAKER) (test 138 meq/L 135-148 uspe=475) POTASSIUM (BEAKER) (test 3.9 meq/L 3.5-5.5 Specimen slightly lrsv=311) hemolyzed CHLORIDE (BEAKER) (test 103 meq/L 98-106 uvkp=937) CO2 (BEAKER) (test 22 meq/L 20-31 zjat=360) BLOOD UREA NITROGEN 16 mg/dL 10-26 (BEAKER) (test kkch=201) CREATININE (BEAKER) (test 0.73 mg/dL 0.50-1.20 Specimen slightly clyo=959) hemolyzed GLUCOSE RANDOM (BEAKER) 237 mg/dL 70-110 (test qskw=608) CALCIUM (BEAKER) (test 8.3 mg/dL 8.5-10.5 flhu=576) EGFR (BEAKER) (test 104 mL/min/1.73 sq m ESTIMATED GFR IS NOT qutt=0389) ACCURATE CREATININE CLEARANCE IN PREDICTING GLOMERULAR FILTRATION RATE. ESTIMATED GFR IS NOT APPLICABLE FOR DIALYSIS PATIENTS. PROTHROMBIN [id number] 15:16:00 Test Item Value Reference Range Comments PROTIME (BEAKER) (test waop=388) 21.5 seconds 11.8-14.4 INR (BEAKER) (test uejx=435) 1.9 1.2-1.5 RECOMMENDED COUMADIN/WARFARIN INR THERAPY RANGESSTANDARD DOSE: 2.0 - 3.0 Includes: PROPHYLAXIS forvenous thrombosis, systemic embolization; TREATMENT for venous thrombosis and/or pulmonary embolus.HIGH RISK: Target INR is 2.5-3.5 for patients with mechanical heart valves.CBC W/PLT COUNT & AUTO [id number] 15:06:00 Test Item Value Reference Range Comments WHITE BLOOD CELL COUNT (BEAKER) (test wvww=323) 9.3 K/ L 4.0-10.0 RED BLOOD CELL COUNT (BEAKER) (test fagz=307) 2.48 M/ L 4.20-5.80 HEMOGLOBIN (BEAKER) (test wvre=266) 7.9 GM/DL 13.0-16.8 HEMATOCRIT (BEAKER) (test bgmj=072) 24.4 % 40.0-50.0 MEAN CORPUSCULAR VOLUME (BEAKER) (test nshv=137) 98.2 fL 82.0-98.0 MEAN CORPUSCULAR HEMOGLOBIN (BEAKER) (test 31.7 pg 27.0-33.0 umik=699) MEAN CORPUSCULAR HEMOGLOBIN CONC (BEAKER) (test 32.3 GM/DL 32.0-36.0 pbkm=674) RED CELL DISTRIBUTION WIDTH (BEAKER) (test 15.5 % 12.0-15.0 ipkl=602) PLATELET COUNT (BEAKER) (test grdd=739) 213 K/CU MM 150-430 MEAN PLATELET VOLUME (BEAKER) (test qgzp=168) 8.5 fL 6.5-10.5 NUCLEATED RED BLOOD CELLS (BEAKER) (test 0 /100 WBC 0-0 ttxd=233) NEUTROPHILS RELATIVE PERCENT (BEAKER) (test 86 % qzkl=939) LYMPHOCYTES RELATIVE PERCENT (BEAKER) (test 6 % apre=541) MONOCYTES RELATIVE PERCENT (BEAKER) (test 8 % uibs=812) EOSINOPHILS RELATIVE PERCENT (BEAKER) (test 0 % ihyj=865) BASOPHILS RELATIVE PERCENT (BEAKER) (test 0 % vgmn=948) NEUTROPHILS ABSOLUTE COUNT (BEAKER) (test 8.00 K/ L 1.80-8.00 qmqy=082) LYMPHOCYTES ABSOLUTE COUNT (BEAKER) (test 0.60 K/ L 1.48-4.50 znse=703) MONOCYTES ABSOLUTE COUNT (BEAKER) (test 0.70 K/ L 0.00-1.30 ltwd=192) EOSINOPHILS ABSOLUTE COUNT (BEAKER) (test 0.00 K/ L 0.00-0.50 nnsr=160) BASOPHILS ABSOLUTE COUNT (BEAKER) (test 0.00 K/ L 0.00-0.20 cvea=649) PLATELET [id number] 15:04:00 Test Item Value Reference Range Comments PLATELET COUNT (BEAKER) (test sojc=444) 213 K/CU MM 150-430
[2019-03-26 17:18] LABS: Absolute Lymphocytes (CBC) 1.5 K/uL (0.7-4.9); Basophils % 0.6 % (0-1.3); Hematocrit 26.5 % (39.6-49.0); Lymphocytes % 40.1 % (15.3-44.8); MPV 7.9 fL (7.6-11.3); RBC Red Blood Cell Count 3.15 M/uL (4.33-5.43)
[2019-03-26 17:19] LABS: Protime INR 1.27
--- NOTE | 2019-03-26 17:28 | RAD REPORT ---
EXAM DESCRIPTION: CT - Head Brain Wo Cont - 03/26/2019 5:00 pm CLINICAL HISTORY: Dizziness COMPARISON: November 2018 TECHNIQUE: Computed axial tomography of the head was obtained. IV contrast was not requested. All CT scans are performed using dose optimization technique as appropriate and may include automated exposure control or mA/KV adjustment according to patient size. FINDINGS: An intracranial bleed is not seen . The ventricles are normal in caliber. No extra-axial fluid collection is noted. 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 Fluid within the sinuses/ mastoids is not seen. IMPRESSION: No acute intracranial abnormality is seen. If patient's symptoms persist MRI of the bra in would be recommended.
[2019-03-26 17:36] LABS: ALT/SGPT 22 U/L (12-78); AST/SGOT 38 U/L (15-37); Albumin 3.1 g/dL (3.4-5.0); Alkaline Phosphatase 94 U/L (45-117); BUN Blood Urea Nitrogen 14 mg/dL (7-18); Bicarbonate 19 mmol/L (21-32); Bilirubin Direct 0.4 mg/dL (0-0.2); Bilirubin Total 1.3 mg/dL (0.2-1.0); Glucose Level 84 mg/dL (74-106); Magnesium 1.8 mg/dL (1.8-2.4); NT PRO-BNP 460 pg/mL (<450); Potassium 3.7 mmol/L (3.5-5.1); Protein, Total 7.2 g/dL (6.4-8.2); Sodium Level 136 mmol/L (136-145); Troponin (Emerg Dept Use Only) < 0.02 ng/mL (0.0-0.045)
--- NOTE | 2019-03-26 17:43 | RAD REPORT ---
EXAM DESCRIPTION: RAD - Wrist Right 3 View - 03/26/2019 5:05 pm CLINICAL HISTORY: Right wrist pain status post injury FINDINGS: No acute fracture or dislocation is seen. If the patient continues to have symptoms to sug gest an occult fracture then a followup plain film series in 7 days would be recommended.
--- NOTE | 2019-03-26 18:06 | EDPHYS ---
Physician Documentation [facility] Name: Jean Lucio III Age: 78 yrs Sex: Male : 1940 Arrival Date: 03/26/2019 Time: 16:34 Bed 18 Private MD: JEFERSON Physician Joe Mcfadden HPI: 03/26 16:39 This 78 yrs old Male presents to ER via EMS with complaints of Right wrist pm1 Injury. 16:39 The patient or guardian complains of swelling. The complaints affect the right wrist. pm1 Context: The problem was sustained at home, resulted from a fall, from a standing position. Onset: The symptoms/episode began/occurred just prior to arrival. Treatment prior to arrival includes: no previous treatment. Modifying factors: The symptoms are alleviated by nothing. the symptoms are aggravated by nothing. Patient was watching TV on his bed eating ribs and drinking beers. Drank two beers. He got up to throw his rib bones away and fell. He felt dizziness when stood up from his bed. Patient with complaints of injury to right wrist. he has swelling and a contusion but no pain. Active FROM intact without pain. Historical: - Allergies: 16:43 No Known Allergies; em - Home Meds: 16:38 tamsulosin 0.4 mg oral cp24 1 cap once daily [Active]; spironolactone 25 mg Oral tab 1 ca1 tab once daily [Active]; carvedilol 3.125 mg oral tab 1 tab 2 times per day [Active]; lisinopril 2.5 mg Oral tab 1 tab once daily [Active]; pantoprazole 40 mg oral TbEC 1 tab 2 times per day [Active]; furosemide 40 mg Oral tab 1 tab once daily [Active]; - PMHx: 16:43 diagnosed with cancer at [place], did not seek treatment; etoh abuse; Gastric varices; GERD; em Hyperlipidemia; Hypertension; liver cancer; metabolic encephalopathy; Angiodysplasia of duodenum; CAD s/p ID; Anemia; COPD; Pneumonia; Myocardial infarction; Diabetes - NIDDM; Cholithiasis; rhabdomyolysis; UTI; - Immunization history:: Adult Immunizations up to date. - Social history:: Smoking status: Patient uses tobacco products, smokes one-half pack cigarettes per day. - Ebola Screening: : Patient negative for fever greater than or equal to 101.5 degrees Fahrenheit, and additional compatible Ebola Virus Disease symptoms Patient denies exposure to infectious person Patient denies travel to an Ebola-affected area in the 21 days before illness onset No symptoms or risks identified at this time. ROS: 16:43 Constitutional: Negative for fever, chills, and weight loss, Eyes: Negative for injury, pm1 pain, redness, and discharge, ENT: Negative for injury, pain, and discharge, Neck: Negative for injury, pain, and swelling, Cardiovascular: Negative for chest pain, palpitations, and edema, Respiratory: Negative for shortness of breath, cough, wheezing, and pleuritic chest pain, Abdomen/GI: Negative for abdominal pain, nausea, vomiting, diarrhea, and constipation, Back: Negative for injury and pain, : Negative for injury, bleeding, discharge, and swelling. 16:43 Skin: Negative for injury, rash, and discoloration, Neuro: Negative for headache, weakness, numbness, tingling, and seizure. 16:43 MS/extremity: Positive for contusion, swelling, of the right wrist, Negative for decreased range of motion, deformity, pain. Exam: 16:43 Constitutional: This is a well developed, well nourished patient who is awake, alert, pm1 and in no acute distress. Head/Face: Normocephalic, atraumatic. Eyes: Pupils equal round and reactive to light, extra-ocular motions intact. Lids and lashes normal. Conjunctiva and sclera are non-icteric and not injected. Cornea within normal limits. Periorbital areas with no swelling, redness, or edema. ENT: Nares patent. No nasal discharge, no septal abnormalities noted. Tympanic membranes are normal and external auditory canals are clear. Oropharynx with no redness, swelling, or masses, exudates, or evidence of obstruction, uvula midline. Mucous membranes moist. Neck: Trachea midline, no thyromegaly or masses palpated, and no cervical lymphadenopathy. Supple, full range of motion without nuchal rigidity, or vertebral point tenderness. No Meningismus. Chest/axilla: Normal chest wall appearance and motion. Nontender with no deformity. No lesions are appreciated. Cardiovascular: Regular rate and rhythm with a normal S1 and S2. No gallops, murmurs, or rubs. Normal PMI, no JVD. No pulse deficits. Respiratory: Lungs have equal breath sounds bilaterally, clear to auscultation and percussion. No rales, rhonchi or wheezes noted. No increased work of breathing, no retractions or nasal flaring. Abdomen/GI: Soft, non-tender, with normal bowel sounds. No distension or tympany. No guarding or rebound. No evidence of tenderness throughout. Back: No spinal tenderness. No costovertebral tenderness. Full range of motion. Skin: Warm, dry with normal turgor. Normal color with no rashes, no lesions, and no evidence of cellulitis. 16:43 Musculoskeletal/extremity: Extremities: grossly normal except: noted in the right wrist: ecchymosis, swelling, There is no evidence of decreased ROM, deformity, pain, tenderness, Patient is able to move right wrist full range of motion actively without any pain. Able to actively pronate and supinate right hand without any pain. Vital Signs: 16:37 BP 129 / 56; Pulse 73; Resp 18; Temp 99.3(O); Pulse Ox 97% on R/A; Weight 74.84 kg; em Height 6 ft. 0 in. (182.88 cm); Pain 0/10; 17:40 BP 123 / 48; Pulse 67; Resp 18; Pulse Ox 97% on R/A; em 18:32 BP 134 / 54; Pulse 71; Resp 17; Pulse Ox 99% on R/A; Pain 0/10; em 16:37 Body Mass Index 22.38 (74.84 kg, 182.88 cm) em MDM: 16:36 Patient medically screened. pm1 18:03 Data reviewed: vital signs. Data interpreted: Pulse oximetry: on room air is 97 %. pm1 Interpretation: normal. 18:05 Counseling: I had a detailed discussion with the patient and/or guardian regarding: the pm1 historical points, exam findings, and any diagnostic results supporting the discharge/admit diagnosis, lab results, radiology results, the need for outpatient follow up, to return to the emergency department if symptoms worsen or persist or if there are any questions or concerns that arise at home. 03/26 16:39 Order name: Basic Metabolic Panel; Complete Time: 17:42 pm1 03/26 16:39 Order name: CBC with Diff; Complete Time: 18:17 pm1 03/26 16:39 Order name: LFT's; Complete Time: 17:42 pm1 03/26 16:39 Order name: Magnesium; Complete Time: 17:42 pm1 03/26 16:39 Order name: NT PRO-BNP; Complete Time: 17:42 pm1 03/26 16:39 Order name: PT-INR; Complete Time: 17:31 pm1 03/26 16:39 Order name: Troponin (emerg Dept Use Only); Complete Time: 17:42 pm1 03/26 16:39 Order name: XRAY Chest (1 view) pm1 03/26 16:39 Order name: EKG; Complete Time: 16:40 pm1 03/26 16:39 Order name: CT Head Brain wo Cont; Complete Time: 17:31 pm1 03/26 16:39 Order name: Wrist Right 3 View XRAY; Complete Time: 17:46 pm1 03/26 16:54 Order name: ETOH Level; Complete Time: 17:59 pm1 03/26 17:32 Order name: CBC Smear Scan EDWA 03/26 18:09 Order name: Manual Differential; Complete Time: 18:17 EDWA 03/26 16:39 Order name: Cardiac monitoring; Complete Time: 16:44 pm1 03/26 16:39 Order name: EKG - Nurse/Tech; Complete Time: 16:51 pm1 03/26 16:39 Order name: IV Saline Lock; Complete Time: 17:15 pm1 03/26 16:39 Order name: Labs collected and sent; Complete Time: 16:44 pm1 03/26 16:39 Order name: O2 Per Protocol; Complete Time: 16:44 pm1 03/26 16:39 Order name: O2 Sat Monitoring; Complete Time: 16:44 pm1 03/26 18:01 Order name: Wrist Splint; Complete Time: 18:22 pm1 EC:53 Rate is 72 beats/min. Rhythm is regular. No Q waves. T waves are Normal. No ST changes pm1 noted. Clinical impression: 1st degree heart block. Administered Medications: No medications were administered Disposition: 03/26/19 18:06 Discharged to Home. Impression: Contusion of right wrist, Fall on same level from slipping, tripping and stumbling. - Condition is Stable. - Discharge Instructions: Contusion, Fall Prevention in the Home, Wrist Splint. - Medication Reconciliation Form, Thank You Letter, Antibiotic Education, Prescription Opioid Use form. - Follow up: Emergency Department; When: As needed; Reason: Worsening of condition. Follow up: Private Physician; When: 2 - 3 days; Reason: Recheck today's complaints, Continuance of care, Re-evaluation by your physician. - Problem is new. - Symptoms have improved. Addendum: 03/28/2019 09:14 Co-signature as Attending Physician, Joe Mcfadden MD I agree with the assessment and c zhou plan of care. Signatures: Dispatcher [employer] Joe Amezquita MD MD cha Munoz, Joel, GLYCERINE PLANT OPERATOR GLYCERINE PLANT OPERATOR em [place] Parada, FILAMENT MAKER FILAMENT MAKER pm1 Gwen Tse RN RN ca1 Corrections: (The following items were deleted from the chart) 03/26 18:38 18:06 03/26/2019 18:06 Discharged to Home. Impression: Contusion of right wrist; Fall em on same level from slipping, tripping and stumbling. Condition is Stable. Forms are Medication Reconciliation Form, Thank You Letter, Antibiotic Education, Prescription Opioid Use. Follow up: Emergency Department; When: As needed; Reason: Worsening of condition. Follow up: Private Physician; When: 2 - 3 days; Reason: Recheck today's complaints, Continuance of care, Re-evaluation by your physician. Problem is new. Symptoms have improved. pm1
--- NOTE | 2019-03-26 18:06 | ER ---
Nurse's Notes [facility] Name: Jean Lucio III Age: 78 yrs Sex: Male : 1940 Arrival Date: 03/26/2019 Time: 16:34 Bed 18 Private MD: Diagnosis: Contusion of right wrist;Fall on same level from slipping, tripping and stumbling Presentation: 03/26 16:37 Presenting complaint: EMS states: called out for fall after becoming dizzy, was em drinking "one or two beers while watching a western movie" denies taking blood thinners or aspirin, VSS, currently denies pain, hematoma noted to right forearm, no bleeding at this time. Transition of care: patient was not received from another setting of care. Onset of symptoms was March 26, 2019. Risk Assessment: Do you want to hurt yourself or someone else? Patient reports no desire to harm self or others. Initial Sepsis Screen: Does the patient meet any 2 criteria? No. Patient's initial sepsis screen is negative. Does the patient have a suspected source of infection? No. Patient's initial sepsis screen is negative. Care prior to arrival: ice pack and Kerlix to right forearm. 16:37 Method Of Arrival: EMS em 16:43 Acuity: RITA 3 la1 Historical: - Allergies: 16:43 No Known Allergies; em - Home Meds: 16:38 tamsulosin 0.4 mg oral cp24 1 cap once daily [Active]; spironolactone 25 mg Oral tab 1 ca1 tab once daily [Active]; carvedilol 3.125 mg oral tab 1 tab 2 times per day [Active]; lisinopril 2.5 mg Oral tab 1 tab once daily [Active]; pantoprazole 40 mg oral TbEC 1 tab 2 times per day [Active]; furosemide 40 mg Oral tab 1 tab once daily [Active]; - PMHx: 16:43 diagnosed with cancer at [place], did not seek treatment; etoh abuse; Gastric varices; GERD; em Hyperlipidemia; Hypertension; liver cancer; metabolic encephalopathy; Angiodysplasia of duodenum; CAD s/p NH; Anemia; COPD; Pneumonia; Myocardial infarction; Diabetes - NIDDM; Cholithiasis; rhabdomyolysis; UTI; - Immunization history:: Adult Immunizations up to date. - Social history:: Smoking status: Patient uses tobacco products, smokes one-half pack cigarettes per day. - Ebola Screening: : Patient negative for fever greater than or equal to 101.5 degrees Fahrenheit, and additional compatible Ebola Virus Disease symptoms Patient denies exposure to infectious person Patient denies travel to an Ebola-affected area in the 21 days before illness onset No symptoms or risks identified at this time. Screenin:43 Abuse screen: Denies threats or abuse. Nutritional screening: No deficits noted. em Tuberculosis screening: No symptoms or risk factors identified. Fall Risk None identified. Assessment: 16:37 General: Appears in no apparent distress. comfortable, Behavior is calm, cooperative. em Pain: Denies pain. Neuro: Level of Consciousness is awake, alert, obeys commands, Oriented to person, place, time, situation, Moves all extremities. Speech is normal, Facial symmetry appears normal, Denies dizziness, headache. Cardiovascular: Capillary refill < 3 seconds Patient's skin is warm and dry. Respiratory: Airway is patent Respiratory effort is even, unlabored, Respiratory pattern is regular, symmetrical. GI: Abdomen is flat, Abd is soft and non tender X 4 quads. Patient currently denies nausea, vomiting. Derm: Skin is intact, is healthy with good turgor, Skin is pink, warm \\T\\ dry. hematoma noted to right wrist, small bleeding noted. Musculoskeletal: Capillary refill < 3 seconds, Range of motion: intact in all extremities. 16:37 Reassessment: I agree with assessment completed by Joel Horvath LVN . aa5 17:40 Reassessment: Patient appears in no apparent distress at this time. Patient and/or em family updated on plan of care and expected duration. Pain level reassessed. Patient is alert, oriented x 3, equal unlabored respirations, skin warm/dry/pink. 18:36 Reassessment: Patient appears in no apparent distress at this time. Patient and/or em family updated on plan of care and expected duration. Pain level reassessed. Patient is alert, oriented x 3, equal unlabored respirations, skin warm/dry/pink. pt does not want discharge paperwork, placed on pt chart. Vital Signs: 16:37 BP 129 / 56; Pulse 73; Resp 18; Temp 99.3(O); Pulse Ox 97% on R/A; Weight 74.84 kg; em Height 6 ft. 0 in. (182.88 cm); Pain 0/10; 17:40 BP 123 / 48; Pulse 67; Resp 18; Pulse Ox 97% on R/A; em 18:32 BP 134 / 54; Pulse 71; Resp 17; Pulse Ox 99% on R/A; Pain 0/10; em 16:37 Body Mass Index 22.38 (74.84 kg, 182.88 cm) em ED Course: 16:34 Patient arrived in ED. ca1 16:36 Joel Horvath LVN is Primary Nurse. em 16:36 [place] Parada NP is PHCP. pm1 16:36 Joe Mcfadden MD is Attending Physician. pm1 16:37 Arm band placed on. em 16:43 Triage completed. la1 16:43 Patient has correct armband on for positive identification. Bed in low position. Call em light in reach. Side rails up X2. night monitor on. Pulse ox on. NIBP on. 16:59 CT completed. Patient tolerated procedure well. Patient moved back from CT. bq 17:01 CT Head Brain wo Cont In Process Unspecified. EDMS 17:06 XRAY Chest (1 view) In Process Unspecified. EDMS 17:06 Wrist Right 3 View XRAY In Process Unspecified. EDMS 17:09 Inserted saline lock: 22 gauge in left forearm, using aseptic technique. Blood ca1 collected. 18:32 No provider procedures requiring assistance completed. IV discontinued, intact, em bleeding controlled, No redness/swelling at site. Pressure dressing applied. Administered Medications: No medications were administered Outcome: 18:06 Discharge ordered by MD. pm1 18:38 Discharged to home via wheelchair. em 18:38 Condition: good 18:38 Discharge instructions given to patient, Instructed on discharge instructions, follow up and referral plans. Demonstrated understanding of instructions, follow-up care. 18:38 Patient left the ED. em Signatures: Dispatcher [employer] EDSC Sapna Mccann Joel Horvath LVN LVN em Radha Bang RN RN aa5 Estevan Clay RN RN la1 [place] Parada, SHIRLENE HIDE AND SKIN PROCESSING WORKER pm1 Gwen Tse RN RN ca1 Corrections: (The following items were deleted from the chart) 18:36 16:37 Derm: Skin is intact, is healthy with good turgor, Skin is pink, warm \\T\\ dry. em em 18:36 16:37 Musculoskeletal: Capillary refill < 3 seconds, Range of motion: intact in all em extremities, em
[2019-03-26 18:08] LABS: Anisocytosis 2+; Blood Morphology Comment NOTED (NOT SEEN); Platelet Estimate DECR; Poikilocytosis SLIGHT; Urine White Blood Cell Casts DIFF
[2019-03-26 18:50] VITALS: TEMP 99.3
[2019-03-26 18:51] VITALS: BP 134/54; O2SAT 99
--- NOTE | 2019-03-26 19:16 | RAD REPORT ---
EXAM DESCRIPTION: Carlos Single View03/26/2019 5:05 pm CLINICAL HISTORY: Chest pain COMPARISON: 2017 FINDINGS: The lungs appear clear of acute infiltrate. The heart is normal size IMPRESSION: No acute abnormalities displayed
--- NOTE | 2019-03-28 08:39 | EKG ---
Test Date: 2019-03-26 Test Time: 16:45:02 Clay Machine Operator: EMMY MEASUREMENT RESULTS: Intervals: Rate: 72 [place]: 234 QRSD: 96 QT: 418 QTc: 457 [place]: P: 43 [place]: 234 QRS: 47 T: 63 INTERPRETIVE STATEMENTS: Sinus rhythm with 1st degree AV block Otherwise normal ECG Compared to ECG 02/10/2019 16:07:17 ST (T wave) deviation no longer present Electronically Signed On 03-28-19 08:36:31 CDT by Manny Diaz
== END 2019-03-26 18:38 | disposition home or self-care (01) ==
LOC: ER 16:33
DX: S60.211A Contusion of right wrist, initial encounter (principal); I25.2 Old myocardial infarction; I10 Essential (primary) hypertension; F17.210 Nicotine dependence, cigarettes, uncomplicated; K21.9 Gastro-esophageal reflux disease without esophagitis; W01.0XXA Fall on same level from slipping, tripping and stumbling without subsequent striking against object, initial encounter; Y93.9 Activity, unspecified; Y92.9 Unspecified place or not applicable; Z85.05 Personal history of malignant neoplasm of liver
CPT/HCPCS: 36415; 70450; 71045; 80048; 80076; 80320; 83735; 83880; 84484; 85025; 85610; 93005; 99285

== ENCOUNTER 2019-03-28 14:08 | Emergency (ER) | payer OTHER ==
--- OUTSIDE RECORDS SUMMARY | 2019-03-28 14:12 | XMS REPORT | Clinical Summary ---
:1940 Author Organization [facility] Address [address] [place] [address] Care Team Providers Name Role Phone Pcp, [...] UPPER ENDOSCOPY MD Meghan 02/11/2019 Travel 02/10/2019 [facility], Gastrointestinal hemorrhage , unspecified gastrointestinal hemorrhage type; - Encounter Medicine MD Ke Acute on chronic blood loss anemia; 02/13/2019 Shiekh Alcoholic cirrhosis of liver with ascites (HCC); Sroujieh, Gastrointestinal hemorrhage with melena MD Celina Hawkins Fang-Ying, MD 02/10/2019 Telephone Gastroenterology [facility] [place] GI Bleeding MD Meghan after 03/27/2018 Family History Medical History Relation Name Comments [...] Team Description 05/25/2019 Office Visit Hepatology Resource, [facility] F Procedures Procedure Name Priority [...] METER Routine 02/10/2019 9:23 PM CDT after 03/27/2018 Results CBC with platelet count + automated diff (02/22/2019 12:51 PM CDT)Only the most recent of3 resultswithin the time period is included. WBC 4.4 3.5 - 10.5 K/L [facility] RBC 3.67 (L) 4.63 - 6.08 M/L [facility] Hemoglobin 9.8 (L) 13.7 - 17.5 GM/DL [facility] Hematocrit 33.4 (L) 40.1 - 51.0 % [facility] MCV 91.0 79.0 - 92.[address] [facility] MCH 26.7 25.7 - 32.[address] [facility] MCHC 29.3 (L) 32.3 - 36.5 GM/DL [facility] RDW 25.9 (H) 11.6 - 14.4 % [facility] Platelets 64 (L) 150 - 450 K/CU MM [facility] MPV 9.8 9.4 - 12.[address] [facility] nRBC 0 0 - 0 /[address] [facility] % Neutros 42 % [facility] % Lymphs 38 % [facility] % Monos 14 % [facility] % Eos 5 % [facility] % Baso 1 % [facility] # Neutros 1.87 1.78 - 5.38 K/L [facility] # Lymphs 1.68 1.32 - 3.57 K/L [facility] # Monos 0.61 0.30 - 0.82 K/L [facility] # Eos 0.21 0.04 - 0.54 K/L [facility] # Baso 0.02 0.01 - 0.08 K/L [facility] Immature Granulocytes-Relative 0 0 - 1 % [facility] Specimen Blood Performing Organization Address City/State/Zipcode Phone Number [facility] [address] [place] [address] CENTER Pro-time/INR (02/22/2019 12:51 PM CDT)Only the most recent of5 resultswithin the time period is included. Protime 16.9 (H) 11.9 - 14.[address] [facility] INR 1.[address] <=[address]9 [facility] Specimen Blood Narrative Performed At Effective 12/22/2018: PT Reference Range [facility] Change New: 11.9-14.2Previous: 11.7-14.7 RECOMMENDED COUMADIN/WARFARIN INR THERAPY RANGES STANDARD DOSE: 2.0-3.0Includes: PROPHYLAXIS for venous thrombosis, systemic embolization; TREATMENT for venous thrombosis and/or pulmonary embolus. HIGH RISK: Target INR is 2.5-3.5 for patients wiht mechanical heart valves. Performing Organization Address [facility] Phone Number [address] [address] [phone] [place] Hepatic function panel (02/22/2019 12:51 PM CDT)Only the most recent of4 resultswithin the time period is included. Protein, Total 7.2 6.0 - 8.3 gm/dL [facility] Albumin 3.3 (L) 3.5 - 5.0 g/dL [facility] Total Bilirubin 2.0 (H) 0.2 - 1.2 mg/dL [facility] Bilirubin, Direct 1.1 (H) 0.1 - 0.5 mg/dL [facility] Alkaline Phosphatase 101 40 - 150 U/L [facility] AST 45 (H) 5 - 34 U/L [facility] ALT 21 6 - 55 U/L [facility] Specimen Blood Narrative Performed At Specimen slightly icteric [facility] Performing Organization Address [facility] Phone Number [address] [address] [phone] [place] Basic Metabolic Panel (02/22/2019 12:51 PM CDT)Only the most recent of4 resultswithin the time period is included. Sodium 138 136 - 145 meq/L [facility] Potassium 3.8 3.5 - 5.1 meq/L [facility] Chloride 107 98 - 107 meq/L [facility] CO2 22 22 - 29 meq/L [facility] BUN 10 7 - 21 mg/dL [facility] Creatinine 0.77 0.57 - 1.25 mg/dL [facility] Glucose 128 (H) 70 - 105 mg/dL [facility] Calcium 9.1 8.4 - 10.2 mg/dL [facility] EGFR 98Comment: ESTIMATED GFR IS mL/min/1.73 sq m [facility] NOT ACCURATE [facility] CLEARANCE IN PREDICTING GLOMERULAR FILTRATION RATE. ESTIMATED GFR IS NOT APPLICABLE FOR DIALYSIS PATIENTS. Specimen Blood Narrative Performed At Specimen slightly icteric [facility] Performing Organization Address City/State/Zipcode Phone Number [facility] [address] [place] [address] CENTER RHYTHM STRIP - SCAN (02/15/2019 12:12 [...] CDT) Specimen Narrative Performed At FINAL REPORT [facility] TECHNIQUE: MRI of the abdomen WITHOUT and [...] MD Report Verified Date/Time:02/13/2019 14:11:00 Reading Location: [facility] B1 C013Y CT Body Reading Room [...] Report Verified Date/Time: 02/13/2019 14:11:00 Reading Location: [facility] C013Y CT Body Reading Room Performing Organization Address City/State/Zipcode Phone Number [facility] POC-Glucose meter (02/13/2019 10:29 AM CDT)Only the most recent of7 resultswithin the time period is included. POC-Glucose Meter 160 (H)Comment: TESTED AT 70 - 110 mg/dL [place] [id number] [facility] [id number] Specimen Blood Performing Organization Address City/State/Zipcode Phone Number [address] [address] [phone] CENTER PT/aPTT (02/13/2019 5:03 AM CDT)Only the most recent of3 resultswithin the time period is included. Protime 20.7 (H) 11.9 - 14.[address] [facility] INR 1.9 <=[address]9 [facility] PTT 46.6 (H) 22.5 - 36.[address] [facility] Specimen Blood Narrative Performed At Effective 12/22/2018: PT Reference Range [facility] Change New: 11.9-14.2Previous: 11.7-14.7 RECOMMENDED COUMADIN/WARFARIN INR THERAPY RANGES STANDARD DOSE: 2.0-3.0Includes: PROPHYLAXIS for venous thrombosis, systemic embolization; TREATMENT for venous thrombosis and/or pulmonary embolus. HIGH RISK: Target INR is 2.5-3.5 for patients wiht mechanical heart valves. Performing Organization Address City/[facility] Phone Number [facility] [address] [place] [address] [phone] CENTER CBC (Hemogram only) (02/13/2019 5:03 AM CDT)Only the most recent of2 resultswithin the time period is included. WBC 2.9 (L) 3.5 - 10.5 K/L [facility] RBC 2.76 (L) 4.63 - 6.08 M/L [facility] Hemoglobin 7.3 (L) 13.7 - 17.5 GM/DL [facility] Hematocrit 23.5 (L) 40.1 - 51.0 % [facility] MCV 85.1 79.0 - 92.[address] [facility] MCH 26.4 25.7 - 32.[address] [facility] MCHC 31.1 (L) 32.3 - 36.5 GM/DL [facility] RDW 19.4 (H) 11.6 - 14.4 % [facility] Platelets 73 (L) 150 - 450 K/CU MM [facility] MPV 10.3 9.4 - 12.[address] [facility] nRBC 0 0 - 0 /[address] [facility] Specimen Blood Performing Organization Address City/State/Zipcode Phone Number [facility] [address] [place] [address] CENTER Prepare Leuko-Red RBC (02/12/2019 11:54 PM CDT) CROSSMATCH COMPATIBLE SAFETRACE TX Unit ABO O Pos SAFETRACE TX UNIT NUMBER [id number] SAFETRACE TX Status TX_TIMEINCHART SAFETRACE [place] Blood Bank Product RED BLOOD CELLS SAFETRACE TX PRODUCT CODE [id number] SAFETRACE TX CROSSMATCH COMPATIBLE SAFETRACE TX Unit ABO O Pos SAFETRACE TX UNIT NUMBER [id number] SAFETRACE TX Status TX_TIMEINCHART SAFETRACE TX Blood Bank Product RED BLOOD CELLS SAFETR[place] PRODUCT CODE [id number] SAFETRACE [place] Specimen Other Performing Organization Address City/[facility] Phone Number SAFETR[place] 2D Echo W/Doppler(CW/PW/Color) (02/12/2019 5:35 PM CDT) Ejection Fraction [facility] Specimen Narrative Performed At Transthoracic Echocardiography Report (TTE) [facility] Demographics Patient JUSTUS Villeda Date of Study02/12/2019 ABBY III Gender Male Visit [id number] Race Unknown [id number] Number Date of 1940 Mary Baez Age 78 year(s) 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 Aortic Valve Rhju-af-mktwuber AoV cusp calcification. 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 Aortic Valve Luek-yg-owcgptcs AoV cusp calcification. AoV cusp mobility is [...] City/State/Zipcode Phone Number [facility] REPORT OF PROCEDURE - ENDOSCOPY URL (02/12/2019 5:07 PM CDT) Narrative Performed At Iron, TIBC, % sat. (without ferritin) (02/12/2019 4:43 AM CDT) Iron 43.0 40.0 - 160.0 ug/dL [facility] TIBC 338 250 - 450 ug/dL [facility] Iron % Saturation 13 (L) 20 - 55 % [facility] Specimen Blood Performing Organization Address [facility] Phone Number [address] [address] [place] Alpha fetoprotein (AFP), tumor marker (02/12/2019 4:43 AM CDT)Only the most recent of2 resultswithin the time period is included. Alpha-Fetoprotein 362.4 (H) <10.0 ng/mL [facility] Specimen Blood Performing Organization Address [facility] Phone Number [address] [address] [phone] CENTER Phosphorus (02/12/2019 4:43 AM CDT)Only the most recent of2 resultswithin the time period is included. Phosphorus 2.6 2.3 - 4.7 mg/dL [facility] Specimen Blood Performing Organization Address [facility] Phone Number [address] [address] [phone] CENTER Magnesium (02/12/2019 4:43 AM CDT)Only the most recent of2 resultswithin the time period is included. Magnesium 1.9 1.6 - 2.6 mg/dL [facility] Specimen Blood Performing Organization Address [facility] Phone Number [address] [address] [place] Ferritin (02/12/2019 4:43 AM CDT) Ferritin 33 5 - 275 ng/mL [facility] Specimen Blood Performing Organization Address [facility] Phone Number [address] [address] [phone] [place] Hepatitis A antibody, IgG (02/11/2019 6:10 PM CDT) Hep A IgG Nonreactive Nonreactive [facility] Specimen Blood Performing Organization Address [facility] Phone Number [facility] [address] [place], [place] [address] [phone] [place] Hemoglobin and hematocrit (02/11/2019 2:18 PM CDT) Hemoglobin 7.6 (L) 13.7 - 17.5 GM/DL [facility] Hematocrit 25.6 (L) 40.1 - 51.0 % [facility] Specimen Blood Performing Organization Address [facility] Phone Number [facility] [address] [place], [place] [phone] [place] Transfuse Leuko-Red RBC (02/11/2019 1:35 PM CDT)Only the most recent of3 resultswithin the time period is included.Troponin I (02/11/2019 8:13 AM CDT) Only the most recent of3 resultswithin the time period is included. Troponin I 0.10 (H) 0.00 - 0.03 ng/mL [facility] Specimen Blood Narrative Performed At Troponin I (TnI) levels must be interpreted [facility] in the context of the presenting symptoms [...] disease, and persistent tachyarrhythmia. Performing Organization Address [facility] Phone Number [facility] [address] [place], [place] [phone] [place] US abdominal with doppler (02/11/2019 7:59 AM CDT) Specimen Narrative Performed At FINAL REPORT [facility] Ultrasound of the Abdomen, 02/11/2019. Clinical History:Abdominal [...] MD Report Verified Date/Time:02/11/2019 13:40:35 Reading Location: [address] Radiology Reading Room Procedure Note Interface, [...] Report Verified Date/Time: 02/11/2019 13:40:35 Reading Location: [address] Radiology Reading Room Performing Organization Address City/[facility]/Zipcode Phone Number GE RIS Ammonia (02/11/2019 1:23 AM CDT) Ammonia 63 18 - 72 mol/L [facility] Specimen Blood Performing Organization Address City/State/Zipcode Phone Number [address] [address] CENTER Type and screen, automated (02/11/2019 12:34 AM CDT) ABO/RH AUTOMATED (BEAKER) O POSITIVE [facility] Ab Scrn NEGATIVE [facility] Specimen Blood Performing Organization Address City/[facility]/Zipcode Phone Number [facility] [address] [place] [address] XR chest 2 views (02/10/2019 10:35 PM [...] MD Report Verified Date/Time:02/10/2019 22:59:29 Reading Location: [facility] Diagnostic Imaging Reading Room - [place] [address] Procedure Note Interface, External Ris In [...] Report Verified Date/Time: 02/10/2019 22:59:29 Reading Location: [facility] Diagnostic Imaging Reading Room - [place] [address] Performing Organization Address City/State/Zipcode Phone Number RIS Urinalysis w/Microscopic + Reflex to Culture (02/10/2019 10:17 PM CDT) Color, UA Yellow [facility] Clarity, UA Clear [facility] Specific Grulla, UA 1.013 1.001 - 1.035 [facility] pH, UA 6.0 5.0 - 8.0 [facility] Protein, UA Negative Negative [facility] Glucose, UA Negative Negative [facility] Ketones, UA 10 mg/dL (A) Negative [facility] Bilirubin, UA Negative Negative [facility] Blood, UA Negative Negative [facility] Nitrite, UA Negative Negative [facility] Leukocytes, UA Negative Negative [facility] Urobilinogen, UA 0.2 0.2 - 1.0 mg/dL [facility] RBC, UA 0 /HPF [facility] WBC, UA 1 /HPF [facility] Mucus Rare [facility] Specimen Source [facility] Specimen Urine Performing Organization Address City/State/Zipcode Phone Number [address] [address] [phone] [place] Blood Culture - Routine (Right Venipuncture) (02/10/2019 10:15 PM CDT)Only the most recent of2 resultswithin the time period is included. Result No growth in [address] [facility] Specimen Blood Performing Organization Address City/State/Zipcode Phone Number [facility] [address] [place] [phone] [place] Manual Differential (02/10/2019 10:10 PM CDT) % Neutros 57 % [facility] % Lymphs 24 % [facility] % Monos 10 % [facility] % Eos 7 % [facility] % Bands 2 0 - 10 % [facility] # Neutros 2.28 1.78 - 5.38 K/ul [facility] CENTER # Lymphs 0.96 (L) 1.32 - 3.57 K/ul [facility] # Monos 0.40 0.30 - 0.82 K/uL [facility] # Eos 0.28 0.04 - 0.54 K/uL [facility] # Bands 0.08 0.00 - 0.80 K/uL [facility] Total Counted 100 [facility] Giant Platelet Present [facility] Vacuolated Neutrophils Present [facility] Polychromasia 1+ few [facility] Hypochromia 2+ moderate [facility] Anisocytosis 3+ many [facility] Microcytes 1+ few [facility] Macrocytes 1+ few [facility] Poikilocytes 1+ few [facility] Spherocytes 1+ few [facility] Elliptocytes 1+ few [facility] Tear Drop Cells 1+ few [facility] Artifact Present [facility] Helmet Cells 1+ few [facility] Platelet Conc Decreased [facility] Specimen Blood Narrative Performed At Received comment: [facility] User comments: Slide comments: Performing Organization Address City/State/Zipcode Phone Number [facility] [address] [place] [address] CENTER aPTT (02/10/2019 10:10 PM CDT) PTT 36.6 (H) 22.5 - 36.[address] [facility] Specimen Blood Performing Organization Address City/State/Zipcode Phone Number [facility] [address] [place] [address] CENTER Comprehensive metabolic panel (02/10/2019 10:10 PM CDT) Protein, Total 6.2 6.0 - 8.3 gm/dL [facility] Albumin 3.1 (L) 3.5 - 5.0 g/dL [facility] Alkaline Phosphatase 65 40 - 150 U/L [facility] Total Bilirubin 2.9 (H) 0.2 - 1.2 mg/dL [facility] Sodium 136 136 - 145 meq/L [facility] Potassium 3.4 (L) 3.5 - 5.1 meq/L [facility] Chloride 108 (H) 98 - 107 meq/L [facility] CO2 19 (L) 22 - 29 meq/L [facility] BUN 9 7 - 21 mg/dL [facility] Creatinine 0.69 0.57 - 1.25 mg/dL [facility] Glucose 139 (H) 70 - 105 mg/dL [facility] Calcium 8.3 (L) 8.4 - 10.2 mg/dL [facility] AST 32 5 - 34 U/L [facility] ALT 14 6 - 55 U/L [facility] EGFR 111Comment: ESTIMATED mL/min/1.73 sq m [facility] GFR IS NOT ACCURATE [facility] CREATININE CLEARANCE IN PREDICTING GLOMERULAR FILTRATION RATE. ESTIMATED GFR IS NOT APPLICABLE FOR DIALYSIS PATIENTS. Specimen Blood Narrative Performed At Specimen slightly icteric [facility] Performing Organization Address City/[facility]/Zipcode Phone Number [facility] [address] [place] [address] [phone] CENTER after 03/27/2018 Insurance Payer Benefit Plan / Group Subscriber ID Type Phone Address MEDICARE MEDICARE A B xxxxxxxxxxx Medicare Advance Directives For more information, please contact:[address] [phone] Code Status Date Activated Date Inactivated Comments Full Code 02/10/2019 9:23 PM 02/13/2019 6:01 PM This code status was determined by: Patient Full Code 09/18/2017 2:28 PM 09/25/2017 8:49 PM This code status was determined by: Patient
--- OUTSIDE RECORDS SUMMARY | 2019-03-28 14:13 | XMS REPORT ---
:1940 [facility] Address [address] [place] [address] [address] [place] [address] Care Team Providers Name Role Phone BRIANNE [...] Comments SODIUM (BEAKER) (test 138 meq/L 136-145 gdmy=857) POTASSIUM (BEAKER) (test 3.8 meq/L 3.5-5.1 qvei=050) CHLORIDE (BEAKER) (test 107 meq/L 98-107 nsih=713) CO2 (BEAKER) (test ypoy=186) 22 meq/L 22-29 BLOOD UREA NITROGEN (BEAKER) 10 mg/dL 7-21 (test lbyz=159) CREATININE (BEAKER) (test 0.77 mg/dL 0.57-1.25 whds=805) GLUCOSE RANDOM (BEAKER) 128 mg/dL 70-105 (test myfi=024) CALCIUM (BEAKER) (test 9.1 mg/dL 8.4-10.2 ixqv=928) EGFR (BEAKER) (test 98 mL/min/1.73 sq m ESTIMATED GFR IS NOT mpks=2393) ACCURATE CREATININE CLEARANCE IN PREDICTING GLOMERULAR FILTRATION RATE. ESTIMATED GFR IS NOT APPLICABLE FOR DIALYSIS PATIENTS. Specimen slightly ictericHEPATIC FUNCTION [id number] 13:53:00 Test Item Value Reference Range Comments TOTAL PROTEIN (BEAKER) (test dmqi=995) 7.2 gm/dL 6.0-8.3 ALBUMIN (BEAKER) (test ypfb=4652) 3.3 g/dL 3.5-5.0 BILIRUBIN TOTAL (BEAKER) (test lsbx=136) 2.0 mg/dL 0.2-1.2 BILIRUBIN DIRECT (BEAKER) (test nter=630) 1.1 mg/dL 0.1-0.5 ALKALINE PHOSPHATASE (BEAKER) (test ydbd=992) 101 U/L 40-150 AST (SGOT) (BEAKER) (test joou=744) 45 U/L 5-34 ALT (SGPT) (BEAKER) (test ymta=566) 21 U/L 6-55 Specimen slightly ictericPROTHROMBIN TIME/[id number] 13:35:00 Test Item Value Reference Range Comments PROTIME (BEAKER) (test jhks=145) 16.9 seconds 11.9-14.2 INR (BEAKER) (test xwlz=935) 1.5 <=5.9 Effective 12/22/2018: PT Reference Range ChangeNew: 11.9-14.2 Previous: 11.7- 14.7RECOMMENDED COUMADIN/WARFARIN INR THERAPY RANGESSTANDARD DOSE: 2.0-3.0 Includes: PROPHYLAXIS for venous thrombosis, systemic embolization; TREATMENT for venous thrombosis and/or pulmonary embolus.HIGH RISK: Target INR is2.5-3.5 for patients wiht mechanical heart valves.CBC W/PLT COUNT & AUTO [id number] 13:29:00 Test Item Value Reference Range Comments WHITE BLOOD CELL COUNT (BEAKER) (test nade=761) 4.4 K/ L 3.5-10.5 RED BLOOD CELL COUNT (BEAKER) (test iuxn=074) 3.67 M/ L 4.63-6.08 HEMOGLOBIN (BEAKER) (test bear=570) 9.8 GM/DL 13.7-17.5 HEMATOCRIT (BEAKER) (test smhd=391) 33.4 % 40.1-51.0 MEAN CORPUSCULAR VOLUME (BEAKER) (test wnwa=651) 91.0 fL 79.0-92.2 MEAN CORPUSCULAR HEMOGLOBIN (BEAKER) (test 26.7 pg 25.7-32.2 vvoi=414) MEAN CORPUSCULAR HEMOGLOBIN CONC (BEAKER) (test 29.3 GM/DL 32.3-36.5 ioge=926) RED CELL DISTRIBUTION WIDTH (BEAKER) (test 25.9 % 11.6-14.4 xeed=579) PLATELET COUNT (BEAKER) (test kqsa=111) 64 K/CU MM 150-450 MEAN PLATELET VOLUME (BEAKER) (test wths=124) 9.8 fL 9.4-12.4 NUCLEATED RED BLOOD CELLS (BEAKER) (test 0 /100 WBC 0-0 yelj=180) NEUTROPHILS RELATIVE PERCENT (BEAKER) (test 42 % umcs=325) LYMPHOCYTES RELATIVE PERCENT (BEAKER) (test 38 % ueqp=995) MONOCYTES RELATIVE PERCENT (BEAKER) (test 14 % fnjo=370) EOSINOPHILS RELATIVE PERCENT (BEAKER) (test 5 % ukgo=735) BASOPHILS RELATIVE PERCENT (BEAKER) (test 1 % eacl=065) NEUTROPHILS ABSOLUTE COUNT (BEAKER) (test 1.87 K/ L 1.78-5.38 bfwm=179) LYMPHOCYTES ABSOLUTE COUNT (BEAKER) (test 1.68 K/ L 1.32-3.57 qown=395) MONOCYTES ABSOLUTE COUNT (BEAKER) (test fhav=723) 0.61 K/ L 0.30-0.82 EOSINOPHILS ABSOLUTE COUNT (BEAKER) (test 0.21 K/ L 0.04-0.54 thad=901) BASOPHILS ABSOLUTE COUNT (BEAKER) (test kokv=888) 0.02 K/ L 0.01-0.08 IMMATURE GRANULOCYTES-RELATIVE PERCENT (BEAKER) 0 % 0-1 (test hvte=0182) BLOOD [id number] 02:00:00 Test Item Value Reference Range Comments CULTURE (BEAKER) (test ecst=4450) No growth in 5 days BLOOD [id number] 02:00:00 Test Item Value Reference Range Comments CULTURE (BEAKER) (test ovzj=8451) No growth in 5 days MR, ABDOMEN, [id number] 14:11:00MRI abdomen liver protocol Patient pending dischargeFINAL [...] MDReport Verified Date/Time: 02/13/2019 14:11:00 Reading Location: [facility] C013Y CT Body Reading Room POCT-GLUCOSE [id number] 10:52:00 Test Item Value Reference Range Comments POC-GLUCOSE METER (BEAKER) 160 mg/dL 70-110 TESTED AT [address] (test nhuy=6675) [place] [id number] POCT-GLUCOSE [id number] 07:35:00 Test Item Value Reference Range Comments POC-GLUCOSE METER (BEAKER) 120 mg/dL 70-110 TESTED AT [address] (test dxtj=9701) [place] [id number] BASIC METABOLIC [id number] 06:42:00 Test Item Value Reference Range Comments SODIUM (BEAKER) (test 139 meq/L 136-145 aafz=594) POTASSIUM (BEAKER) (test 4.0 meq/L 3.5-5.1 Specimen slightly qdbn=090) hemolyzed CHLORIDE (BEAKER) (test 115 meq/L 98-107 jbvw=204) CO2 (BEAKER) (test 19 meq/L 22-29 ouzq=769) BLOOD UREA NITROGEN 6 mg/dL 7-21 (BEAKER) (test haje=859) CREATININE (BEAKER) (test 0.65 mg/dL 0.57-1.25 Specimen slightly oxpz=999) hemolyzed GLUCOSE RANDOM (BEAKER) 91 mg/dL 70-105 (test pitg=523) CALCIUM (BEAKER) (test 7.7 mg/dL 8.4-10.2 xozp=341) EGFR (BEAKER) (test 119 mL/min/1.73 sq m ESTIMATED GFR IS NOT kbra=7442) ACCURATE CREATININE CLEARANCE IN PREDICTING GLOMERULAR FILTRATION RATE. ESTIMATED GFR IS NOT APPLICABLE FOR DIALYSIS PATIENTS. HEPATIC FUNCTION [id number] 06:41:00 Test Item Value Reference Range Comments TOTAL PROTEIN (BEAKER) (test 5.5 gm/dL 6.0-8.3 Specimen slightly hemolyzed trja=591) ALBUMIN (BEAKER) (test 2.7 g/dL 3.5-5.0 Specimen slightly hemolyzed mhok=2019) BILIRUBIN TOTAL (BEAKER) (test 1.4 mg/dL 0.2-1.2 Specimen slightly hemolyzed qpvd=579) BILIRUBIN DIRECT (BEAKER) (test 0.6 mg/dL 0.1-0.5 Specimen slightly hemolyzed plpv=147) ALKALINE PHOSPHATASE (BEAKER) 56 U/L 40-150 (test huea=460) AST (SGOT) (BEAKER) (test 49 U/L 5-34 Specimen slightly hemolyzed ftdc=172) ALT (SGPT) (BEAKER) (test 18 U/L 6-55 Specimen slightly hemolyzed pzcn=890) PT/[id number] 05:52:00 Test Item Value Reference Range Comments PROTIME (BEAKER) (test sxkn=931) 20.7 seconds 11.9-14.2 INR (BEAKER) (test mdji=540) 1.9 <=5.9 PARTIAL THROMBOPLASTIN TIME (BEAKER) (test 46.6 seconds 22.5-36.0 jqfv=297) Effective 12/22/2018: PT Reference Range ChangeNew: 11.9-14.2 Previous: 11.7- 14.7RECOMMENDED COUMADIN/WARFARIN INR THERAPY RANGESSTANDARD DOSE: 2.0-3.0 Includes: PROPHYLAXIS for venous thrombosis, systemic embolization; TREATMENT for venous thrombosis and/or pulmonary embolus.HIGH RISK: Target INR is2.5-3.5 for patients wiht mechanical heart valves.PROTHROMBIN TIME/[id number] 05:51: 00 Test Item Value Reference Range Comments PROTIME (BEAKER) (test txvc=261) 20.7 seconds 11.9-14.2 INR (BEAKER) (test ubyz=770) 1.9 <=5.9 Effective 12/22/2018: PT Reference Range ChangeNew: 11.9-14.2 Previous: 11.7- 14.7RECOMMENDED COUMADIN/WARFARIN INR THERAPY RANGESSTANDARD DOSE: 2.0-3.0 Includes: PROPHYLAXIS for venous thrombosis, systemic embolization; TREATMENT for venous thrombosis and/or pulmonary embolus.HIGH RISK: Target INR is2.5-3.5 for patients wiht mechanical heart valves.CBC (HEMOGRAM ONLY)2019-02-13 05:26:00 Test Item Value Reference Range Comments WHITE BLOOD CELL COUNT (BEAKER) (test vnyn=707) 2.9 K/ L 3.5-10.5 RED BLOOD CELL COUNT (BEAKER) (test bpsm=843) 2.76 M/ L 4.63-6.08 HEMOGLOBIN (BEAKER) (test enbr=997) 7.3 GM/DL 13.7-17.5 HEMATOCRIT (BEAKER) (test fffy=370) 23.5 % 40.1-51.0 MEAN CORPUSCULAR VOLUME (BEAKER) (test rvhm=536) 85.1 fL 79.0-92.2 MEAN CORPUSCULAR HEMOGLOBIN (BEAKER) (test 26.4 pg 25.7-32.2 ciwe=492) MEAN CORPUSCULAR HEMOGLOBIN CONC (BEAKER) (test 31.1 GM/DL 32.3-36.5 isoj=958) RED CELL DISTRIBUTION WIDTH (BEAKER) (test 19.4 % 11.6-14.4 przg=920) PLATELET COUNT (BEAKER) (test mbbu=149) 73 K/CU MM 150-450 MEAN PLATELET VOLUME (BEAKER) (test zflu=182) 10.3 fL 9.4-12.4 NUCLEATED RED BLOOD CELLS (BEAKER) (test 0 /100 WBC 0-0 ntsu=691) POCT-GLUCOSE [id number] 21:21:00 Test Item Value Reference Range Comments POC-GLUCOSE METER (BEAKER) 185 mg/dL 70-110 TESTED AT [address] (test xmay=4716) [facility] [address] POCT-GLUCOSE [id number] 15:55:00 Test Item Value Reference Range Comments POC-GLUCOSE METER (BEAKER) 154 mg/dL 70-110 TESTED AT [address] (test eall=8861) [facility] [address] POCT-GLUCOSE [id number] 15:55:00 Test Item Value Reference Range Comments POC-GLUCOSE METER (BEAKER) 144 mg/dL 70-110 TESTED AT [address] (test efvj=7730) [facility] [address] POCT-GLUCOSE [id number] 10:19:00 Test Item Value Reference Range Comments POC-GLUCOSE METER (BEAKER) 130 mg/dL 70-[address] [facility] [address] (test orcm=8473) [facility] [address] ALPHA FETOPROTEIN (AFP), TUMOR [id number] 08:37:00 Test Item Value Reference Range Comments ALPHA-FETOPROTEIN (BEAKER) (test wscg=0839) 362.4 ng/mL <10.0 [id number] 07:20:00 Test Item Value Reference Range Comments FERRITIN (BEAKER) (test prpz=217) 33 ng/mL 5-275 IRON, TIBC, % SAT. (WITHOUT FERRITIN)2019-02-12 06:59:00 Test Item Value Reference Range Comments IRON (BEAKER) (test yhnh=598) 43.0 ug/dL 40.0-160.0 TOTAL IRON BINDING CAPACITY (BEAKER) (test 338 ug/dL 250-450 imcj=853) IRON % SATURATION (2) (BEAKER) (test dklm=7633) 13 % 20-55 BASIC METABOLIC [id number] 06:22:00 Test Item Value Reference Range Comments SODIUM (BEAKER) (test 137 meq/L 136-145 qmvm=366) POTASSIUM (BEAKER) (test 4.0 meq/L 3.5-5.1 vdyo=793) CHLORIDE (BEAKER) (test 113 meq/L 98-107 jwze=849) CO2 (BEAKER) (test 20 meq/L 22-29 xsow=946) BLOOD UREA NITROGEN 7 mg/dL 7-21 (BEAKER) (test vxhj=258) CREATININE (BEAKER) (test 0.70 mg/dL 0.57-1.25 yfki=931) GLUCOSE RANDOM (BEAKER) 103 mg/dL 70-105 (test iphq=430) CALCIUM (BEAKER) (test 7.7 mg/dL 8.4-10.2 gqtw=718) EGFR (BEAKER) (test 109 mL/min/1.73 sq m ESTIMATED GFR IS NOT hgha=0035) ACCURATE CREATININE CLEARANCE IN PREDICTING GLOMERULAR FILTRATION RATE. ESTIMATED GFR IS NOT APPLICABLE FOR DIALYSIS PATIENTS. [id number] 06:15:00 Test Item Value Reference Range Comments PHOSPHORUS (BEAKER) (test mshg=337) 2.6 mg/dL 2.3-4.7 [id number] 06:15:00 Test Item Value Reference Range Comments MAGNESIUM (BEAKER) (test nitz=235) 1.9 mg/dL 1.6-2.6 HEPATIC FUNCTION [id number] 06:15:00 Test Item Value Reference Range Comments TOTAL PROTEIN (BEAKER) (test tqal=100) 5.7 gm/dL 6.0-8.3 ALBUMIN (BEAKER) (test dpul=4574) 2.8 g/dL 3.5-5.0 BILIRUBIN TOTAL (BEAKER) (test bllh=665) 1.8 mg/dL 0.2-1.2 BILIRUBIN DIRECT (BEAKER) (test cbxi=011) 0.9 mg/dL 0.1-0.5 ALKALINE PHOSPHATASE (BEAKER) (test uuuo=926) 54 U/L 40-150 AST (SGOT) (BEAKER) (test qonb=017) 41 U/L 5-34 ALT (SGPT) (BEAKER) (test zwob=230) 16 U/L 6-55 PROTHROMBIN [id number] 05:51:00 Test Item Value Reference Range Comments PROTIME (BEAKER) (test mgnj=879) 19.8 seconds 11.9-14.2 INR (BEAKER) (test qbyt=850) 1.8 <=5.9 Effective 12/22/2018: PT Reference Range ChangeNew: 11.9-14.2 Previous: 11.7- 14.7RECOMMENDED COUMADIN/WARFARIN INR THERAPY RANGESSTANDARD DOSE: 2.0-3.0 Includes: PROPHYLAXIS for venous thrombosis, systemic embolization; TREATMENT for venous thrombosis and/or pulmonary embolus.HIGH RISK: Target INR is2.5-3.5 for patients wiht mechanical heart valves.PT/[id number] 05:51:00 Test Item Value Reference Range Comments PROTIME (BEAKER) (test wucf=256) 19.8 seconds 11.9-14.2 INR (BEAKER) (test ygsd=109) 1.8 <=5.9 PARTIAL THROMBOPLASTIN TIME (BEAKER) (test 43.4 seconds 22.5-36.0 bydi=671) Effective 12/22/2018: PT Reference Range ChangeNew: 11.9-14.2 Previous: 11.7- 14.7RECOMMENDED COUMADIN/WARFARIN INR THERAPY RANGESSTANDARD DOSE: 2.0-3.0 Includes: PROPHYLAXIS for venous thrombosis, systemic embolization; TREATMENT for venous thrombosis and/or pulmonary embolus.HIGH RISK: Target INR is2.5-3.5 for patients wiht mechanical heart valves.CBC (HEMOGRAM ONLY)2019-02-12 05:30:00 Test Item Value Reference Range Comments WHITE BLOOD CELL COUNT (BEAKER) (test lvfw=208) 3.3 K/ L 3.5-10.5 RED BLOOD CELL COUNT (BEAKER) (test toco=863) 2.79 M/ L 4.63-6.08 HEMOGLOBIN (BEAKER) (test eake=930) 7.2 GM/DL 13.7-17.5 HEMATOCRIT (BEAKER) (test ypbr=740) 23.5 % 40.1-51.0 MEAN CORPUSCULAR VOLUME (BEAKER) (test cjxp=656) 84.2 fL 79.0-92.2 MEAN CORPUSCULAR HEMOGLOBIN (BEAKER) (test 25.8 pg 25.7-32.2 ieud=802) MEAN CORPUSCULAR HEMOGLOBIN CONC (BEAKER) (test 30.6 GM/DL 32.3-36.5 vemf=320) RED CELL DISTRIBUTION WIDTH (BEAKER) (test 18.9 % 11.6-14.4 kgps=039) PLATELET COUNT (BEAKER) (test ofbd=647) 69 K/CU MM 150-450 MEAN PLATELET VOLUME (BEAKER) (test sicc=261) 10.4 fL 9.4-12.4 NUCLEATED RED BLOOD CELLS (BEAKER) (test 1 /100 WBC 0-0 hmdd=273) HEPATITIS A ANTIBODY, [id number] 19:24:00 Test Item Value Reference Range Comments HEPATITIS A IGG ANTIBODY (BEAKER) (test Nonreactive Nonreactive haej=3168) ALPHA FETOPROTEIN (AFP), TUMOR [id number] 17:58:00 Test Item Value Reference Range Comments ALPHA-FETOPROTEIN (BEAKER) (test bctd=6983) 356.8 ng/mL <10.0 HEMOGLOBIN AND [id number] 14:32:00 Test Item Value Reference Range Comments HEMOGLOBIN (BEAKER) (test eyyg=815) 7.6 GM/DL 13.7-17.5 HEMATOCRIT (BEAKER) (test xrma=519) 25.6 % 40.1-51.0 U/S, ABDOMINAL, WITH [id number] 13:40:00Reason for exam:->abdominal pain, cirrhosis ? liver [...] Joseph MDReport VerifiedDate/Time: 02/11/2019 13:40:35 Reading Location: [address] Radiology Reading Room RE [id number] 08:56:00 Test Item Value Reference Range Comments TROPONIN I (BEAKER) (test ifls=408) 0.10 ng/mL 0.00-0.03 Troponin I (TnI) levels [...] failure, acidosis, acute neurological disease, and persistent tachyarrhythmia.[id number] 01:49:00 Test Item Value Reference Range Comments AMMONIA (BEAKER) (test bpfu=580) 63 mol/L 18-72 CBC W/PLT COUNT & AUTO [id number] 01:33:00 Test Item Value Reference Range Comments WHITE BLOOD CELL COUNT (BEAKER) (test ihoo=700) 3.8 K/ L 3.5-10.5 RED BLOOD CELL COUNT (BEAKER) (test dhxp=363) 2.19 M/ L 4.63-6.08 HEMOGLOBIN (BEAKER) (test khmr=678) 5.1 GM/DL 13.7-17.5 HEMATOCRIT (BEAKER) (test vgnj=904) 17.8 % 40.1-51.0 MEAN CORPUSCULAR VOLUME (BEAKER) (test tzxf=980) 81.3 fL 79.0-92.2 MEAN CORPUSCULAR HEMOGLOBIN (BEAKER) (test 23.3 pg 25.7-32.2 repw=451) MEAN CORPUSCULAR HEMOGLOBIN CONC (BEAKER) (test 28.7 GM/DL 32.3-36.5 rgrt=386) RED CELL DISTRIBUTION WIDTH (BEAKER) (test 20.2 % 11.6-14.4 ezoo=389) PLATELET COUNT (BEAKER) (test huuy=661) 71 K/CU MM 150-450 MEAN PLATELET VOLUME (BEAKER) (test waif=700) 10.2 fL 9.4-12.4 NUCLEATED RED BLOOD CELLS (BEAKER) (test 0 /100 WBC 0-0 ribt=668) NEUTROPHILS RELATIVE PERCENT (BEAKER) (test 42 % ijpq=272) LYMPHOCYTES RELATIVE PERCENT (BEAKER) (test 33 % xxsw=933) MONOCYTES RELATIVE PERCENT (BEAKER) (test 21 % rtbl=954) EOSINOPHILS RELATIVE PERCENT (BEAKER) (test 4 % akzd=169) BASOPHILS RELATIVE PERCENT (BEAKER) (test 0 % qcxm=236) NEUTROPHILS ABSOLUTE COUNT (BEAKER) (test 1.58 K/ L 1.78-5.38 zzqt=291) LYMPHOCYTES ABSOLUTE COUNT (BEAKER) (test 1.22 K/ L 1.32-3.57 ntrf=683) MONOCYTES ABSOLUTE COUNT (BEAKER) (test vyya=471) 0.79 K/ L 0.30-0.82 EOSINOPHILS ABSOLUTE COUNT (BEAKER) (test 0.15 K/ L 0.04-0.54 iijy=947) BASOPHILS ABSOLUTE COUNT (BEAKER) (test ocfb=095) 0.00 K/ L 0.01-0.08 IMMATURE GRANULOCYTES-RELATIVE PERCENT (BEAKER) 0 % 0-1 (test pkdk=6142) TROPONIN [id number] 01:23:00 Test Item Value Reference Range Comments TROPONIN I (BEAKER) (test knsw=413) < ng/mL 0.00-0.03 Troponin I (TnI) levels [...] failure, acidosis, acute neurological disease, and persistent tachyarrhythmia.[id number] 01:17:00 Test Item Value Reference Range Comments PHOSPHORUS (BEAKER) (test tcvy=178) 2.7 mg/dL 2.3-4.7 [id number] 01:17:00 Test Item Value Reference Range Comments MAGNESIUM (BEAKER) (test spoy=581) 1.9 mg/dL 1.6-2.6 BASIC METABOLIC [id number] 01:17:00 Test Item Value Reference Range Comments SODIUM (BEAKER) (test 137 meq/L 136-145 efdc=137) POTASSIUM (BEAKER) (test 3.4 meq/L 3.5-5.1 whoy=455) CHLORIDE (BEAKER) (test 109 meq/L 98-107 grcp=492) CO2 (BEAKER) (test 21 meq/L 22-29 tfsc=824) BLOOD UREA NITROGEN 9 mg/dL 7-21 (BEAKER) (test vdgb=887) CREATININE (BEAKER) (test 0.65 mg/dL 0.57-1.25 piuv=004) GLUCOSE RANDOM (BEAKER) 104 mg/dL 70-105 (test whyk=125) CALCIUM (BEAKER) (test 8.1 mg/dL 8.4-10.2 xqxf=873) EGFR (BEAKER) (test 119 mL/min/1.73 sq m ESTIMATED GFR IS NOT lbhh=7917) ACCURATE CREATININE CLEARANCE IN PREDICTING GLOMERULAR FILTRATION RATE. ESTIMATED GFR IS NOT APPLICABLE FOR DIALYSIS PATIENTS. Specimen slightly ictericHEPATIC FUNCTION [id number] 01:17:00 Test Item Value Reference Range Comments TOTAL PROTEIN (BEAKER) (test yuld=584) 5.7 gm/dL 6.0-8.3 ALBUMIN (BEAKER) (test lewp=8030) 2.8 g/dL 3.5-5.0 BILIRUBIN TOTAL (BEAKER) (test idsl=473) 2.3 mg/dL 0.2-1.2 BILIRUBIN DIRECT (BEAKER) (test telo=746) 0.8 mg/dL 0.1-0.5 ALKALINE PHOSPHATASE (BEAKER) (test bbxp=912) 59 U/L 40-150 AST (SGOT) (BEAKER) (test wxxx=783) 29 U/L 5-34 ALT (SGPT) (BEAKER) (test heas=561) 11 U/L 6-55 Specimen slightly ictericPT/[id number] 01:08:00 Test Item Value Reference Range Comments PROTIME (BEAKER) (test szgu=595) 19.5 seconds 11.9-14.2 INR (BEAKER) (test lkpm=182) 1.8 <=5.9 PARTIAL THROMBOPLASTIN TIME (BEAKER) (test 42.1 seconds 22.5-36.0 ktaf=847) Effective 12/22/2018: PT Reference Range ChangeNew: 11.9-14.2 Previous: 11.7- 14.7RECOMMENDED COUMADIN/WARFARIN INR THERAPY RANGESSTANDARD DOSE: 2.0-3.0 Includes: PROPHYLAXIS for venous thrombosis, systemic embolization; TREATMENT for venous thrombosis and/or pulmonary embolus.HIGH RISK: Target INR is2.5-3.5 for patients wiht mechanical heart valves.PROTHROMBIN [id number] 01:07: 00 Test Item Value Reference Range Comments PROTIME (BEAKER) (test dwbv=887) 19.5 seconds 11.9-14.2 INR (BEAKER) (test kzcm=376) 1.8 <=5.9 Effective 12/22/2018: PT Reference Range ChangeNew: 11.9-14.2 Previous: 11.7- 14.7RECOMMENDED COUMADIN/WARFARIN INR THERAPY RANGESSTANDARD DOSE: 2.0-3.0 Includes: PROPHYLAXIS for venous thrombosis, systemic embolization; TREATMENT for venous thrombosis and/or pulmonary embolus.HIGH RISK: Target INR is2.5-3.5 for patients wiht mechanical heart valves.URINALYSIS W/ REFLEX URINE [id number] 00:55:00 Test Item Value Reference Range Comments COLOR (BEAKER) (test vxfy=640) Yellow CLARITY (BEAKER) (test eikz=248) Clear SPECIFIC GRAVITY UA (BEAKER) (test fmip=996) 1.013 1.001-1.035 PH UA (BEAKER) (test wlki=893) 6.0 5.0-8.0 PROTEIN UA (BEAKER) (test cvtz=767) Negative Negative GLUCOSE UA (BEAKER) (test xtls=260) Negative Negative KETONES UA (BEAKER) (test htct=745) 10 mg/dL Negative BILIRUBIN UA (BEAKER) (test gysd=419) Negative Negative BLOOD UA (BEAKER) (test wauz=401) Negative Negative NITRITE UA (BEAKER) (test bnpt=637) Negative Negative LEUKOCYTE ESTERASE UA (BEAKER) (test xyah=048) Negative Negative UROBILINOGEN UA (BEAKER) (test quuj=236) 0.2 mg/dL 0.2-1.0 RBC UA (BEAKER) (test oifg=503) 0 /HPF WBC UA (BEAKER) (test vfxs=439) 1 /HPF MUCUS (BEAKER) (test jaep=2685) Rare SOURCE(BEAKER) (test tczg=8003) CBC W/PLT COUNT & AUTO [id number] 23:53:00 Test Item Value Reference Range Comments WHITE BLOOD CELL COUNT (BEAKER) (test chwp=907) 4.0 K/ L 3.5-10.5 RED BLOOD CELL COUNT (BEAKER) (test rsyf=421) 2.47 M/ L 4.63-6.08 HEMOGLOBIN (BEAKER) (test nevw=788) 5.9 GM/DL 13.7-17.5 HEMATOCRIT (BEAKER) (test fcnm=343) 20.2 % 40.1-51.0 MEAN CORPUSCULAR VOLUME (BEAKER) (test mcjq=297) 81.8 fL 79.0-92.2 MEAN CORPUSCULAR HEMOGLOBIN (BEAKER) (test 23.9 pg 25.7-32.2 yyth=156) MEAN CORPUSCULAR HEMOGLOBIN CONC (BEAKER) (test 29.2 GM/DL 32.3-36.5 mmjt=890) RED CELL DISTRIBUTION WIDTH (BEAKER) (test 20.3 % 11.6-14.4 bqye=113) PLATELET COUNT (BEAKER) (test nnyi=637) 93 K/CU MM 150-450 MEAN PLATELET VOLUME (BEAKER) (test cokt=963) 10.5 fL 9.4-12.4 NUCLEATED RED BLOOD CELLS (BEAKER) (test 0 /100 WBC 0-0 wbrv=300) (CELLAVISION MANUAL DIFF)[id number] 23:53:00 Test Item Value Reference Range Comments NEUTROPHILS - REL (CELLAVISION)(BEAKER) (test 57 % jhfa=1516) LYMPHOCYTES - REL (CELLAVISION)(BEAKER) (test 24 % ygnf=3651) MONOCYTES - REL (CELLAVISION)(BEAKER) (test 10 % xorm=4794) EOSINOPHILS - REL (CELLAVISION)(BEAKER) (test 7 % bwic=1423) BANDS - REL (CELLAVISION)(BEAKER) (test 2 % 0-10 ccnm=2134) NEUTROPHILS - ABS (CELLAVISION)(BEAKER) (test 2.28 K/ul 1.78-5.38 tsud=2684) LYMPHOCYTES - ABS (CELLAVISION)(BEAKER) (test 0.96 K/ul 1.32-3.57 dsur=5612) MONOCYTES - ABS (CELLAVISION)(BEAKER) (test 0.40 K/uL 0.30-0.82 fnfu=4737) EOSINOPHILS - ABS (CELLAVISION)(BEAKER) (test 0.28 K/uL 0.04-0.54 yqsm=8817) BANDS - ABS (CELLAVISION)(BEAKER) (test 0.08 K/uL 0.00-0.80 mtru=5972) TOTAL COUNTED (BEAKER) (test lgli=6695) 100 GIANT PLATELETS (BEAKER) (test jqfj=696) Present VACUOLATED NEUTROPHILS (BEAKER) (test ioxf=220) Present POLYCHROMATOPHILLIC RBCS(BEAKER) (test wlvp=789) 1+ few HYPOCHROMIA (BEAKER) (test ffgr=673) 2+ moderate ANISOCYTOSIS (BEAKER) (test mzub=077) 3+ many MICROCYTES (BEAKER) (test hzqk=664) 1+ few MACROCYTES (BEAKER) (test nvpg=727) 1+ few POIKILOCYTES (BEAKER) (test nbut=604) 1+ few SPHEROCYTES (BEAKER) (test hjgo=944) 1+ few ELLIPTOCYTES (BEAKER) (test xreq=682) 1+ few TEAR DROP CELLS (BEAKER) (test cgen=141) 1+ few ARTIFACT (CELLAVISION)(BEAKER) (test tnkr=6682) Present HELMET CELLS (CELLAVISION)(BEAKER) (test 1+ few azeo=7328) PLATELET CONCENTRATION (CELLAVISION)(BEAKER) Decreased (test fdoj=8208) Received comment: User comments: Slide comments:TROPONIN [id number] 23:14:00 Test Item Value Reference Range Comments TROPONIN I (BEAKER) (test cgvi=125) < ng/mL 0.00-0.03 Troponin I (TnI) levels [...] acute neurological disease, and persistent tachyarrhythmia.COMPREHENSIVE METABOLIC [id number] 23:08:00 Test Item Value Reference Range Comments TOTAL PROTEIN (BEAKER) 6.2 gm/dL 6.0-8.3 (test pryh=223) ALBUMIN (BEAKER) (test 3.1 g/dL 3.5-5.0 pmhm=9493) ALKALINE PHOSPHATASE 65 U/L 40-150 (BEAKER) (test rrha=565) BILIRUBIN TOTAL (BEAKER) 2.9 mg/dL 0.2-1.2 (test eqka=288) SODIUM (BEAKER) (test 136 meq/L 136-145 rimg=517) POTASSIUM (BEAKER) (test 3.4 meq/L 3.5-5.1 xiwe=190) CHLORIDE (BEAKER) (test 108 meq/L 98-107 feom=723) CO2 (BEAKER) (test 19 meq/L 22-29 zsgr=597) BLOOD UREA NITROGEN 9 mg/dL 7-21 (BEAKER) (test bgft=770) CREATININE (BEAKER) (test 0.69 mg/dL 0.57-1.25 tien=587) GLUCOSE RANDOM (BEAKER) 139 mg/dL 70-105 (test ptwb=826) CALCIUM (BEAKER) (test 8.3 mg/dL 8.4-10.2 zpuy=844) AST (SGOT) (BEAKER) (test 32 U/L 5-34 rzmp=857) ALT (SGPT) (BEAKER) (test 14 U/L 6-55 dhgi=463) EGFR (BEAKER) (test 111 mL/min/1.73 sq ESTIMATED GFR IS NOT bcab=1360) m ACCURATE CREATININE CLEARANCE IN PREDICTING GLOMERULAR FILTRATION RATE. ESTIMATED GFR IS NOT APPLICABLE FOR DIALYSIS PATIENTS. Specimen slightly ictericRAD, CHEST, 2 [id number] 22:59:00Reason for exam:- >pleural effusion on CT [...] MDReport Verified Date/Time: 02/10/2019 22:59:29 Reading Location: [facility] Diagnostic Imaging Reading Room - [place] [id number] 22:57:00 Test Item Value Reference Range Comments PARTIAL THROMBOPLASTIN TIME (BEAKER) (test 36.6 seconds 22.5-36.0 hezg=948) PROTHROMBIN TIME/[id number] 22:56:00 Test Item Value Reference Range Comments PROTIME (BEAKER) (test ndks=653) 18.9 seconds 11.9-14.2 INR (BEAKER) (test svrm=657) 1.7 <=5.9 Effective 12/22/2018: PT Reference Range ChangeNew: 11.9-14.2 Previous: 11.7- 14.7RECOMMENDED COUMADIN/WARFARIN INR THERAPY RANGESSTANDARD DOSE: 2.0-3.0 Includes: PROPHYLAXIS for venous thrombosis, systemic embolization; TREATMENT for venous thrombosis and/or pulmonary embolus.HIGH RISK: Target INR is2.5-3.5 for patients wiht mechanical heart valves.POCT-GLUCOSE [id number] 21:34:00 Test Item Value Reference Range Comments POC-GLUCOSE METER (BEAKER) 170 mg/dL 70-110 TESTED AT [address] (test dalk=2047) [facility] [address] MR, ABDOMEN, [id number] 20:13:00Liver protocol based on 09/23 CT of chest shows liver massAddendum BeginsREPORT STATUS:A ADRENALS section should include: Thickening ofboth adrenal glands without discrete nodules. Signed: Geovany Srinivasan MDReport Verified Date/Time: 09/25/2017 20:13: 03 Reading Location: [address] Body Reading RoomAddendum EndsFINAL REPORT [...] MDReport Verified Date/Time: 09/25/2017 13:46:41 Reading Location: [address] Body Reading Room Electronically signedby: GEOVANY SRINIVASAN MD on 09/25/2017 08:13 PMBASI METABOLIC [id number] 14:10:00 Test Item Value Reference Range Comments SODIUM (BEAKER) (test 135 meq/L 135-148 vmrd=635) POTASSIUM (BEAKER) (test 3.5 meq/L 3.5-5.5 frmr=131) CHLORIDE (BEAKER) (test 99 meq/L 98-106 phfj=054) CO2 (BEAKER) (test 28 meq/L 20-31 dsuo=588) BLOOD UREA NITROGEN 8 mg/dL 10-26 (BEAKER) (test mxml=347) CREATININE (BEAKER) (test 0.64 mg/dL 0.50-1.20 vrzl=125) GLUCOSE RANDOM (BEAKER) 180 mg/dL 70-110 (test limb=607) CALCIUM (BEAKER) (test 8.3 mg/dL 8.5-10.5 bjzv=257) EGFR (BEAKER) (test 122 mL/min/1.73 sq m ESTIMATED GFR IS NOT jdql=3320) ACCURATE CREATININE CLEARANCE IN PREDICTING GLOMERULAR FILTRATION RATE. ESTIMATED GFR IS NOT APPLICABLE FOR DIALYSIS PATIENTS. POCT-GLUCOSE [id number] 13:03:00 Test Item Value Reference Range Comments POC-GLUCOSE METER (BEAKER) 160 mg/dL 70-110 TESTED AT [facility] [id number] [place] [address] (test ujob=5930) [address] [place] [address] [id number] 09:47:00 Test Item Value Reference Range Comments PARTIAL THROMBOPLASTIN TIME (BEAKER) (test 42.3 seconds 23.2-36.1 xgga=826) PROTHROMBIN TIME/[id number] 09:45:00 Test Item Value Reference Range Comments PROTIME (BEAKER) (test ypmh=099) 17.6 seconds 11.8-14.4 INR (BEAKER) (test trjh=211) 1.4 1.2-1.5 RECOMMENDED COUMADIN/WARFARIN INR THERAPY RANGESSTANDARD DOSE: 2.0 - 3.0 Includes: PROPHYLAXIS forvenous thrombosis, systemic embolization; TREATMENT for venous thrombosis and/or pulmonary embolus.HIGH RISK: Target INR is 2.5-3.5 for patients with mechanical heart valves.POCT-GLUCOSE [id number] 07:23:00 Test Item Value Reference Range Comments POC-GLUCOSE METER (BEAKER) 171 mg/dL 70-110 TESTED AT [facility] [id number] [place] [address] (test sicz=3168) [address] [place] [id number] POCT-GLUCOSE [id number] 21:35:00 Test Item Value Reference Range Comments POC-GLUCOSE METER (BEAKER) 209 mg/dL 70-110 TESTED AT [facility] [id number] [place] [address] (test rlrz=8482) [place] [address] ALPHA FETOPROTEIN (AFP), TUMOR [id number] 18:39:00 Test Item Value Reference Range Comments ALPHA-FETOPROTEIN (BEAKER) (test dbeu=3962) 215.0 ng/mL <10.0 POCT-GLUCOSE [id number] 16:42:00 Test Item Value Reference Range Comments POC-GLUCOSE METER (BEAKER) 254 mg/dL 70-110 TESTED AT [facility] [address] [facility] (test ydap=5574) [facility] [address] RESPIRATORY PANEL [id number] 15:20:00 Test Item Value Reference Range Comments HUMAN METAPNEUMOVIRUS (BEAKER) (test Not detected Not detected, Inconclusive onwh=1596) RHINOVIRUS (BEAKER) (test tame=8609) Not detected Not detected, Inconclusive INFLUENZA A (BEAKER) (test Not detected Not detected, Inconclusive qlak=0608) INFLUENZA A SUBTYPE H1 (BEAKER) Not detected Not detected, Inconclusive (test nhyp=5080) INFLUENZA A SUBTYPE H3 (BEAKER) Not detected Not detected, Inconclusive (test lfgg=8204) INFLUENZA A SUBTYPE H1-2009 (BEAKER) Not detected Not detected, Inconclusive (test cqsb=5096) INFLUENZA B (BEAKER) (test Not detected Not detected, Inconclusive fibm=3726) RESPIRATORY SYNCYTIAL VIRUS (BEAKER) Not detected Not detected, Inconclusive (test zfts=0942) PARAINFLUENZA VIRUS 1 (BEAKER) (test Not detected Not detected, Inconclusive jfuw=4919) PARAINFLUENZA VIRUS 2 (BEAKER) (test Not detected Not detected, Inconclusive yohg=5414) PARAINFLUENZA VIRUS 3 (BEAKER) (test Not detected Not detected, Inconclusive myiw=3466) PARAINFLUENZA VIRUS 4 (BEAKER) (test Not detected Not detected, Inconclusive otpo=2763) ADENOVIRUS (BEAKER) (test icfj=2878) Not detected Not detected, Inconclusive CORONAVIRUS 229E (BEAKER) (test Not detected Not detected, Inconclusive kjle=1602) CORONAVIRUS HKU1 (BEAKER) (test Not detected Not detected, Inconclusive avgj=6402) CORONAVIRUS NL63 (BEAKER) (test Not detected Not detected, Inconclusive nrjm=7980) CORONAVIRUS OC43 (BEAKER) (test Not detected Not detected, Inconclusive jejv=2083) BORDETELLA PERTUSSIS (BEAKER) (test Not detected Not detected, Inconclusive izay=2666) CHLAMYDOPHILA PNEUMONIAE (BEAKER) Not detected Not detected, Inconclusive (test tpws=6163) MYCOPLASMA PNEUMONIAE (BEAKER) (test Not detected Not detected, Inconclusive uiux=6580) POCT-GLUCOSE [id number] 13:03:00 Test Item Value Reference Range Comments POC-GLUCOSE METER (BEAKER) 176 mg/dL 70-110 TESTED AT [facility] [address] [facility] (test xtrl=8608) [facility] [address] POCT-GLUCOSE [id number] 07:51:00 Test Item Value Reference Range Comments POC-GLUCOSE METER (BEAKER) 172 mg/dL 70-110 TESTED AT [facility] [address] [facility] (test uwld=8421) [facility] [address] BASIC METABOLIC [id number] 07:06:00 Test Item Value Reference Range Comments SODIUM (BEAKER) (test 137 meq/L 135-148 wljk=594) POTASSIUM (BEAKER) (test 3.4 meq/L 3.5-5.5 apim=479) CHLORIDE (BEAKER) (test 100 meq/L 98-106 eshm=441) CO2 (BEAKER) (test 31 meq/L 20-31 zxqa=218) BLOOD UREA NITROGEN 9 mg/dL 10-26 (BEAKER) (test gqgy=472) CREATININE (BEAKER) (test 0.60 mg/dL 0.50-1.20 xmxz=295) GLUCOSE RANDOM (BEAKER) 149 mg/dL 70-110 (test mbcn=346) CALCIUM (BEAKER) (test 8.2 mg/dL 8.5-10.5 gzlw=914) EGFR (BEAKER) (test 131 mL/min/1.73 sq m ESTIMATED GFR IS NOT rwzd=0350) ACCURATE CREATININE CLEARANCE IN PREDICTING GLOMERULAR FILTRATION RATE. ESTIMATED GFR IS NOT APPLICABLE FOR DIALYSIS PATIENTS. CBC W/PLT COUNT & AUTO [id number] 05:59:00 Test Item Value Reference Range Comments WHITE BLOOD CELL COUNT (BEAKER) (test igvo=548) 6.6 K/ L 4.0-10.0 RED BLOOD CELL COUNT (BEAKER) (test fekg=639) 2.99 M/ L 4.20-5.80 HEMOGLOBIN (BEAKER) (test lgee=057) 8.8 GM/DL 13.0-16.8 HEMATOCRIT (BEAKER) (test dsdq=026) 28.3 % 40.0-50.0 MEAN CORPUSCULAR VOLUME (BEAKER) (test uxee=737) 94.6 fL 82.0-98.0 MEAN CORPUSCULAR HEMOGLOBIN (BEAKER) (test 29.5 pg 27.0-33.0 weua=703) MEAN CORPUSCULAR HEMOGLOBIN CONC (BEAKER) (test 31.2 GM/DL 32.0-36.0 izoo=480) RED CELL DISTRIBUTION WIDTH (BEAKER) (test 16.1 % 12.0-15.0 pctf=399) PLATELET COUNT (BEAKER) (test jmny=610) 119 K/CU MM 150-430 MEAN PLATELET VOLUME (BEAKER) (test xvzf=181) 8.3 fL 6.5-10.5 NUCLEATED RED BLOOD CELLS (BEAKER) (test 0 /100 WBC 0-0 cujj=341) NEUTROPHILS RELATIVE PERCENT (BEAKER) (test 61 % opgm=443) LYMPHOCYTES RELATIVE PERCENT (BEAKER) (test 22 % ffue=219) MONOCYTES RELATIVE PERCENT (BEAKER) (test 10 % kuou=293) EOSINOPHILS RELATIVE PERCENT (BEAKER) (test 7 % lyjq=691) BASOPHILS RELATIVE PERCENT (BEAKER) (test 1 % qiph=650) NEUTROPHILS ABSOLUTE COUNT (BEAKER) (test 4.10 K/ L 1.80-8.00 juzw=405) LYMPHOCYTES ABSOLUTE COUNT (BEAKER) (test 1.40 K/ L 1.48-4.50 bpsv=567) MONOCYTES ABSOLUTE COUNT (BEAKER) (test 0.60 K/ L 0.00-1.30 hydf=005) EOSINOPHILS ABSOLUTE COUNT (BEAKER) (test 0.50 K/ L 0.00-0.50 cxmz=932) BASOPHILS ABSOLUTE COUNT (BEAKER) (test 0.00 K/ L 0.00-0.20 icvy=992) LEGIONELLA ANTIGEN, [id number] 22:05:00 Test Item Value Reference Range Comments L. PNEUMOPHILA SEROGP 1 Negative - see Negative for L. UR AG (BEAKER) (test comment pneumophila serogroup 1 efwj=2772) antigen, suggesting no recent or current infection with this serogroup. Legionellosis cannot be ruled out since other serogroups and species may cause disease. STREP PNEUMONIAE [id number] 22:05:00 Test Item Value Reference Range Comments STREP PNEUMONIAE ANTIGEN Presumptive negative for Presumptive negative for (BEAKER) (test pneumococcal pneumonia - pneumococcal pneumonia - glrs=0894) see comment see commen Presumptive negative for pneumococcal pneumonia, suggesting no current or recent pneumococcal infection. Infection due to S. pneumoniae cannot be ruled out since the antigen present in the sample may be below the detection limit of the test.POCT-GLUCOSE [id number] 21:16:00 Test Item Value Reference Range Comments POC-GLUCOSE METER (BEAKER) 127 mg/dL 70-110 TESTED AT [facility] [address] [facility] (test vasl=8551) [facility] [address] POCT-GLUCOSE [id number] 18:08:00 Test Item Value Reference Range Comments POC-GLUCOSE METER (BEAKER) 242 mg/dL 70-110 TESTED AT [facility] [address] [facility] (test bnti=4172) [facility] [address] CT, CHEST, WITHOUT [id number] 15:33:00FINAL REPORT CT of the Chest dated [...] Verified Date/Time: 09/23/2017 15:33: 18 Reading Location: [facility] B1 C013Y CT Body Reading Room TISSUE [id number] 14:19: 00Surgical Pathology Report Case: [id number] Authorizing Provider: Narayan Reyes MD Collected : 09/20/2017 0908 Ordering Location: [facility] - Perioperative Received: 09/21/2017 0851 Services Pathologist: Lencho De La Garza MD Specimen: Polyp, Colon - Right/Ascending COLON, RIGHT/ASCENDING POLYP, COLONOSCOPY- POLYPOID COLONIC MUCOSA CONSISTENT WITH MUCOSAL TAG- NO ADENOMATOUS CHANGE OR MALIGNANCY IDENTIFIED Signing Pathologist Direct Phone Line: [phone] signed by Lencho De La Garza MD on 09/23/2017 at 2:19 [id number] and anemia; procedure is colonoscopy Polyp right/ascendingThe instrument, paperwork, container, and cassette all read [id number].Received in formalin labeled with the patient's name (Khadijah) and medical record number.Specimen A: Receivedin formalin labeled as "right/ascending polyp" is one tissue 3 x 3 x 1 mm, all in cassette A1. JF/ewThe following special studies were performed on this case and the interpretation is incorporated in the diagnostic report above:IDCV:[id number] 12:31:00 Test Item Value Reference Range Comments PROCALCITONIN (BEAKER) (test cuji=2551) 0.13 ng/mL <0.05 SEPSIS RISK (ng/mL)Low: 0.05-0.50Intermediate: 0.51-2.00High: & gt;=2.01POCT-GLUCOSE [id number] 11:53:00 Test Item Value Reference Range Comments POC-GLUCOSE METER (BEAKER) 227 mg/dL 70-110 TESTED AT [facility] [address] [facility] (test lghr=4295) [facility] [address] POCT-GLUCOSE [id number] 08:09:00 Test Item Value Reference Range Comments POC-GLUCOSE METER (BEAKER) 167 mg/dL 70-110 TESTED AT [facility] [address] [facility] (test porh=9821) [facility] [address] [id number] 08:05:00 Test Item Value Reference Range Comments MAGNESIUM (BEAKER) (test bbnb=876) 1.5 mg/dL 1.5-3.0 COMPREHENSIVE METABOLIC [id number] 06:54:00 Test Item Value Reference Range Comments TOTAL PROTEIN (BEAKER) 6.0 gm/dL 6.0-8.5 (test robo=104) ALBUMIN (BEAKER) (test 2.6 g/dL 3.5-5.0 ohnp=6259) ALKALINE PHOSPHATASE 96 U/L 30-115 (BEAKER) (test vkhm=138) BILIRUBIN TOTAL (BEAKER) 1.4 mg/dL 0.1-1.3 (test obgd=642) SODIUM (BEAKER) (test 138 meq/L 135-148 wgwo=417) POTASSIUM (BEAKER) (test 3.0 meq/L 3.5-5.5 bcnf=455) CHLORIDE (BEAKER) (test 101 meq/L 98-106 dscw=520) CO2 (BEAKER) (test 30 meq/L 20-31 fmmq=242) BLOOD UREA NITROGEN 10 mg/dL 10-26 (BEAKER) (test iraz=644) CREATININE (BEAKER) (test 0.61 mg/dL 0.50-1.20 pnvk=863) GLUCOSE RANDOM (BEAKER) 142 mg/dL 70-110 (test kjfa=492) CALCIUM (BEAKER) (test 8.3 mg/dL 8.5-10.5 qxyo=180) AST (SGOT) (BEAKER) (test 52 U/L 5-40 xdbl=892) ALT (SGPT) (BEAKER) (test 27 U/L 6-50 lirv=588) EGFR (BEAKER) (test 129 mL/min/1.73 sq ESTIMATED GFR IS NOT tlgy=3135) m ACCURATE CREATININE CLEARANCE IN PREDICTING GLOMERULAR FILTRATION RATE. ESTIMATED GFR IS NOT APPLICABLE FOR DIALYSIS PATIENTS. CBC W/PLT COUNT & AUTO [id number] 06:24:00 Test Item Value Reference Range Comments WHITE BLOOD CELL COUNT (BEAKER) (test paug=534) 6.4 K/ L 4.0-10.0 RED BLOOD CELL COUNT (BEAKER) (test gcua=138) 2.97 M/ L 4.20-5.80 HEMOGLOBIN (BEAKER) (test stzy=160) 9.0 GM/DL 13.0-16.8 HEMATOCRIT (BEAKER) (test msrm=112) 28.1 % 40.0-50.0 MEAN CORPUSCULAR VOLUME (BEAKER) (test gvcz=316) 94.6 fL 82.0-98.0 MEAN CORPUSCULAR HEMOGLOBIN (BEAKER) (test 30.3 pg 27.0-33.0 uggo=568) MEAN CORPUSCULAR HEMOGLOBIN CONC (BEAKER) (test 32.0 GM/DL 32.0-36.0 smxl=870) RED CELL DISTRIBUTION WIDTH (BEAKER) (test 17.2 % 12.0-15.0 jwcm=802) PLATELET COUNT (BEAKER) (test uclf=987) 135 K/CU MM 150-430 MEAN PLATELET VOLUME (BEAKER) (test ctpq=959) 8.1 fL 6.5-10.5 NUCLEATED RED BLOOD CELLS (BEAKER) (test 0 /100 WBC 0-0 jkfn=266) NEUTROPHILS RELATIVE PERCENT (BEAKER) (test 53 % ptyu=568) LYMPHOCYTES RELATIVE PERCENT (BEAKER) (test 23 % nwwp=082) MONOCYTES RELATIVE PERCENT (BEAKER) (test 17 % ifat=522) EOSINOPHILS RELATIVE PERCENT (BEAKER) (test 6 % ghkb=768) BASOPHILS RELATIVE PERCENT (BEAKER) (test 1 % ezqj=370) NEUTROPHILS ABSOLUTE COUNT (BEAKER) (test 3.40 K/ L 1.80-8.00 pkfo=608) LYMPHOCYTES ABSOLUTE COUNT (BEAKER) (test 1.50 K/ L 1.48-4.50 rdzq=825) MONOCYTES ABSOLUTE COUNT (BEAKER) (test 1.10 K/ L 0.00-1.30 ygum=500) EOSINOPHILS ABSOLUTE COUNT (BEAKER) (test 0.40 K/ L 0.00-0.50 pycg=005) BASOPHILS ABSOLUTE COUNT (BEAKER) (test 0.00 K/ L 0.00-0.20 yacc=574) POCT-GLUCOSE [id number] 00:35:00 Test Item Value Reference Range Comments POC-GLUCOSE METER (BEAKER) 171 mg/dL 70-110 TESTED AT [facility] [address] [facility] (test tnde=2038) [place] [address] [id number] 18:12:00Medical Cytology Report Case: [id number] Authorizing Provider: Tamanna Herrera MD Collected: 09/18/2017 1735 Ordering Location: [address] SURGICAL Received: 09/21/2017 1009 Pathologist: Miracle Kaiser MD Specimen: Pleural, Right RIGHT PLEURAL FLUID, CYTOLOGIC PREPARATION:NO MALIGNANT CELLS IDENTIFIED. Signing Pathologist Direct Phone Line: [phone] signed by Miracle Kaiser MD on 2017 at 6:12 [id number] bleedRight pleural cavityCollected: 09/18/20171734Received: 09/21/2017 190301 ml yellow fluid received fresh; 4 cytospinsAll cytologic preparations have been microscopically examined. The pertinent microscopic examination findings have been incorporated into the diagnosis rendered above.[facility]. [facility], Department of Pathology, [id number] [place] [address], Bx. [facility] Department of Pathology, [id number] [place] [address], Xt. [facility] Department of Pathology, [address] [place] [address], Tel TISSUE [id number] 16:29:00Surgical Pathology Report Case: [id number] Authorizing Provider: Narayan Reyes MD Collected: 09/19/2017 1138 Ordering Location: [address] MEDICAL SURGICAL Received: 2017 0828 Pathologist: Lencho De La Garza MD Specimen: Duodenum, bx DUODENUM, BIOPSY: - SUPERFICIAL FRAGMENTS OF UNREMARKABLE DUODENAL MUCOSA - NO ACTIVE INFLAMMATION, GRANULOMAS, FOAMY HISTIOCYTES, PARASITES, OR INCREASED INTRAEPITHELIAL LYMPHOCYTES IDENTIFIED - NO ADENOMATOUS CHANGE, DYSPLASIA OR MALIGNANCY IDENTIFIED Signing Pathologist Direct Phone Line: [phone] signed by Lencho De La Garza MD on 09/22/2017 at 4:29 [id number]; procedure upper endoscopy Duodenum The instrument, paperwork, container, and cassette all read [id number].Received in formalin labeled with the patient's name (Khadijah) and medical record number.Specimen A: Received in formalin labeled as "duodenum" is one tissue 3 x 3 x 1 mm with a few flecks of debris, all in cassette A1. JF/ewPOCT-GLUCOSE [id number] 16:14:00 Test Item Value Reference Range Comments POC-GLUCOSE METER (BEAKER) 221 mg/dL 70-110 TESTED AT [facility] [address] [facility] (test dayk=3707) [facility] [address] [id number] 14:45:00 Test Item Value Reference Range Comments FERRITIN (BEAKER) (test lbon=719) 68 ng/mL 22-322 RAD, CHEST, 1 VIEW, NON [id number] 14:35:00Reason for exam:->pulmonary edemaShould this be performed [...] Verified Date/ Time: 09/22/2017 14:35:18 Reading Location: [facility] Diagnostic Imaging Reading Room - [facility] [id number] Electronically signed by: TRAVIS GOMEZ M.D. on 02:35 PMIRON, TIBC, % SAT. (WITHOUT FERRITIN)2017-09-22 14:30:00 Test Item Value Reference Range Comments IRON (BEAKER) (test wddb=772) 34 ug/dL 35-175 TOTAL IRON BINDING CAPACITY (BEAKER) (test 269 ug/dL 250-550 pxdr=501) IRON % SATURATION (2) (BEAKER) (test fcrh=5914) 13 % 20-55 POCT-GLUCOSE [id number] 12:14:00 Test Item Value Reference Range Comments POC-GLUCOSE METER (BEAKER) 233 mg/dL 70-110 TESTED AT [facility] [address] [facility] (test snky=7251) [facility] [address] U/S, ABDOMINAL, [id number] 11:12:00Reason for exam:->ascitesFINAL REPORT Technique: Limited abdominal ultrasound dated 09/22. HISTORY: Ascites check. COMPARISON: None IMPRESSION:Small amount of abdominal ascites is seen in all four quadrants. Nodular liver contour is compatible with cirrhosis. Signed: Jada Maddox MDReport Verified Date/ Time: 09/22/2017 11:12:47 Reading Location: [facility] Radiology Reading Room [id number] 11:06:00 Test Item Value Reference Range Comments AMMONIA (BEAKER) (test wfko=004) 66 mol/L 12-72 BLOOD GAS, [id number] 17:43:00 Test Item Value Reference Range Comments PH ARTERIAL (BEAKER) (test sdgz=640) 7.52 7.35-7.45 PCO2 ARTERIAL (BEAKER) (test kjud=078) 41 mmHg 35-45 PO2 ARTERIAL (BEAKER) (test wvwg=197) 60 mmHg 80-90 O2 SATURATION ARTERIAL (BEAKER) (test wavg=879) 93.2 % 96.0-97.0 HCO3 ARTERIAL (BEAKER) (test mbeh=597) 33 mmol/L 21-29 BASE EXCESS ARTERIAL (BEAKER) (test uqal=489) 9.1 mmol/L -2.0-3.0 PATIENT TEMPERATURE (BEAKER) (test tqob=6885) 37.0 C FIO2 (BEAKER) (test jltl=4860) 45.0 % U/S, [id number] 16:39:00Reason for exam:->THORACENTESIS RIGHT SIDEFINAL REPORT EXAM: Limited ultrasound of right chest CLINICAL HISTORY: Pleural effusion FINDINGS: Limited evaluation of the right chest demonstrates trace free fluid in the rightpleural space. Thoracentesis was not performed. Signed: Cris Malhotra MDReport Verified Date/Time: 09/21/2017 16:39 :54 Reading Location: [facility] Radiology Reading Room POCT-GLUCOSE [id number] 16:35: 00 Test Item Value Reference Range Comments POC-GLUCOSE METER (BEAKER) 138 mg/dL 70-110 TESTED AT [facility] [address] [facility] (test rbjv=8949) [facility] [address] POCT-GLUCOSE [id number] 11:59:00 Test Item Value Reference Range Comments POC-GLUCOSE METER (BEAKER) 261 mg/dL 70-110 TESTED AT [facility] [address] [facility] (test ghzd=6591) [facility] [address] BODY FLUID CELL COUNT WITH [id number] 08:40:00 Test Item Value Reference Range Comments APPEARANCE FLUID (BEAKER) (test Slightly Hazy Clear gyxd=699) COLOR FLUID (BEAKER) (test Yellow Colorless, Straw sqbg=855) RBC FLUID (BEAKER) (test 320 /uL <=1 mowo=307) ADJUSTED WBC FLUID (BEAKER) 355 /cu mm <=5 (test hinp=6807) LINING CELLS (BEAKER) (test 53 /cu mm <=1 lexm=7914) NEUTROPHILS FLUID (BEAKER) 26 % (test hrwn=3881) LYMPHS FLUID (BEAKER) (test 43 % wjaq=013) MONO/MACROPHAGE FLUID (BEAKER) 31 % (test inib=845) EOSINOPHILS FLUID (BEAKER) 0 % (test xlky=898) BASO FLUID (BEAKER) (test 0 % kvcb=880) INTERPRETATION-210 (BEAKER) No malignant cells (test eyxo=5213) identified. [id number]-592 (BEAKER) Miracle Carmen Kaiser (test gryz=3213) CONTAINER BODY FLUID (BEAKER) EDTA Tube (test iyqy=9864) BODY FLUID CULTURE + GRAM [id number] 08:19:00 Test Item Value Reference Range Comments CULTURE (BEAKER) (test oicq=2550) No growth GRAM STAIN RESULT (BEAKER) (test 3+ White blood cells seen ambn=0169) GRAM STAIN RESULT (BEAKER) (test No organisms seen nyjm=47771) POCT-GLUCOSE [id number] 07:38:00 Test Item Value Reference Range Comments POC-GLUCOSE METER (BEAKER) 157 mg/dL 70-110 TESTED AT [facility] [address] [facility] (test izgh=5147) [facility] [address] BASIC METABOLIC [id number] 06:50:00 Test Item Value Reference Range Comments SODIUM (BEAKER) (test 140 meq/L 135-148 avnw=850) POTASSIUM (BEAKER) (test 3.2 meq/L 3.5-5.5 leeq=839) CHLORIDE (BEAKER) (test 102 meq/L 98-106 tpxk=402) CO2 (BEAKER) (test 28 meq/L 20-31 ewij=829) BLOOD UREA NITROGEN 11 mg/dL 10-26 (BEAKER) (test gmbr=727) CREATININE (BEAKER) (test 0.61 mg/dL 0.50-1.20 ompc=922) GLUCOSE RANDOM (BEAKER) 139 mg/dL 70-110 (test xinr=674) CALCIUM (BEAKER) (test 7.8 mg/dL 8.5-10.5 uzfd=564) EGFR (BEAKER) (test 129 mL/min/1.73 sq m ESTIMATED GFR IS NOT arou=8692) ACCURATE CREATININE CLEARANCE IN PREDICTING GLOMERULAR FILTRATION RATE. ESTIMATED GFR IS NOT APPLICABLE FOR DIALYSIS PATIENTS. HEPATIC FUNCTION [id number] 06:50:00 Test Item Value Reference Range Comments TOTAL PROTEIN (BEAKER) (test cuaf=123) 5.6 gm/dL 6.0-8.5 ALBUMIN (BEAKER) (test lvvq=5565) 2.4 g/dL 3.5-5.0 BILIRUBIN TOTAL (BEAKER) (test xdjv=310) 1.4 mg/dL 0.1-1.3 BILIRUBIN DIRECT (BEAKER) (test qzpl=716) 0.7 mg/dL 0.0-0.5 ALKALINE PHOSPHATASE (BEAKER) (test usym=840) 77 U/L 30-115 AST (SGOT) (BEAKER) (test oilr=669) 54 U/L 5-40 ALT (SGPT) (BEAKER) (test idio=109) 24 U/L 6-50 CBC W/PLT COUNT & AUTO [id number] 06:37:00 Test Item Value Reference Range Comments WHITE BLOOD CELL COUNT (BEAKER) (test jlvl=403) 6.5 K/ L 4.0-10.0 RED BLOOD CELL COUNT (BEAKER) (test okbt=517) 2.69 M/ L 4.20-5.80 HEMOGLOBIN (BEAKER) (test yknc=690) 8.2 GM/DL 13.0-16.8 HEMATOCRIT (BEAKER) (test flsr=294) 25.6 % 40.0-50.0 MEAN CORPUSCULAR VOLUME (BEAKER) (test azhd=043) 95.4 fL 82.0-98.0 MEAN CORPUSCULAR HEMOGLOBIN (BEAKER) (test 30.6 pg 27.0-33.0 nylv=716) MEAN CORPUSCULAR HEMOGLOBIN CONC (BEAKER) (test 32.1 GM/DL 32.0-36.0 iyvh=213) RED CELL DISTRIBUTION WIDTH (BEAKER) (test 16.2 % 12.0-15.0 iwos=916) PLATELET COUNT (BEAKER) (test cgdh=144) 124 K/CU MM 150-430 MEAN PLATELET VOLUME (BEAKER) (test rioo=082) 8.2 fL 6.5-10.5 NUCLEATED RED BLOOD CELLS (BEAKER) (test 0 /100 WBC 0-0 cqqq=443) NEUTROPHILS RELATIVE PERCENT (BEAKER) (test 61 % bxvx=098) LYMPHOCYTES RELATIVE PERCENT (BEAKER) (test 21 % rajl=302) MONOCYTES RELATIVE PERCENT (BEAKER) (test 14 % zrqd=188) EOSINOPHILS RELATIVE PERCENT (BEAKER) (test 3 % fznn=783) BASOPHILS RELATIVE PERCENT (BEAKER) (test 0 % tvwy=126) NEUTROPHILS ABSOLUTE COUNT (BEAKER) (test 4.00 K/ L 1.80-8.00 ckny=212) LYMPHOCYTES ABSOLUTE COUNT (BEAKER) (test 1.40 K/ L 1.48-4.50 ekyg=996) MONOCYTES ABSOLUTE COUNT (BEAKER) (test 0.90 K/ L 0.00-1.30 rplp=187) EOSINOPHILS ABSOLUTE COUNT (BEAKER) (test 0.20 K/ L 0.00-0.50 pkgd=711) BASOPHILS ABSOLUTE COUNT (BEAKER) (test 0.00 K/ L 0.00-0.20 tebw=513) HEMOGLOBIN AND [id number] 06:36:00 Test Item Value Reference Range Comments HEMOGLOBIN (BEAKER) (test ittu=785) 8.2 GM/DL 13.0-16.8 HEMATOCRIT (BEAKER) (test eqqn=115) 25.6 % 40.0-50.0 RAD, CHEST, 1 VIEW, NON [id number] 03:55:00Reason for exam:->sob, h/o pleural effShould this [...] MDReport Verified Date/Time: 09/21/2017 03:55:11 Reading Location: [address] Body Reading Room HEPATITIS PANEL, [id number] 18:08:00 Test Item Value Reference Range Comments HEPATITIS A IGM ANTIBODY (BEAKER) (test Nonreactive Nonreactive jrcc=602) HEPATITIS B CORE IGM ANTIBODY (BEAKER) (test Nonreactive Nonreactive huac=567) HEPATITIS C ANTIBODY (BEAKER) (test rdko=737) Nonreactive Nonreactive HEPATITIS B SURFACE ANTIGEN (2) (BEAKER) (test Nonreactive Nonreactive dwkm=5697) HEMOGLOBIN AND [id number] 13:04:00 Test Item Value Reference Range Comments HEMOGLOBIN (BEAKER) (test ijtv=025) 8.5 GM/DL 13.0-16.8 HEMATOCRIT (BEAKER) (test kgxe=860) 27.6 % 40.0-50.0 POCT-GLUCOSE [id number] 08:36:00 Test Item Value Reference Range Comments POC-GLUCOSE METER (BEAKER) 173 mg/dL 70-110 TESTED AT [facility] [address] [facility] (test yfsz=3687) [facility] [address] BASIC METABOLIC [id number] 06:05:00 Test Item Value Reference Range Comments SODIUM (BEAKER) (test 140 meq/L 135-148 eper=284) POTASSIUM (BEAKER) (test 3.3 meq/L 3.5-5.5 olfj=396) CHLORIDE (BEAKER) (test 102 meq/L 98-106 hmrh=221) CO2 (BEAKER) (test 28 meq/L 20-31 fsrn=012) BLOOD UREA NITROGEN 20 mg/dL 10-26 (BEAKER) (test syuq=688) CREATININE (BEAKER) (test 0.74 mg/dL 0.50-1.20 ctxx=221) GLUCOSE RANDOM (BEAKER) 177 mg/dL 70-110 (test yxcf=262) CALCIUM (BEAKER) (test 8.0 mg/dL 8.5-10.5 dljo=707) EGFR (BEAKER) (test 103 mL/min/1.73 sq m ESTIMATED GFR IS NOT wcat=9511) ACCURATE CREATININE CLEARANCE IN PREDICTING GLOMERULAR FILTRATION RATE. ESTIMATED GFR IS NOT APPLICABLE FOR DIALYSIS PATIENTS. HEPATIC FUNCTION [id number] 06:05:00 Test Item Value Reference Range Comments TOTAL PROTEIN (BEAKER) (test efot=583) 6.0 gm/dL 6.0-8.5 ALBUMIN (BEAKER) (test hgdo=8101) 2.6 g/dL 3.5-5.0 BILIRUBIN TOTAL (BEAKER) (test lpxh=532) 1.6 mg/dL 0.1-1.3 BILIRUBIN DIRECT (BEAKER) (test kgfv=559) 0.8 mg/dL 0.0-0.5 ALKALINE PHOSPHATASE (BEAKER) (test mxdg=263) 82 U/L 30-115 AST (SGOT) (BEAKER) (test yjmi=596) 66 U/L 5-40 ALT (SGPT) (BEAKER) (test ggzx=955) 28 U/L 6-50 CBC W/PLT COUNT & AUTO [id number] 05:38:00 Test Item Value Reference Range Comments WHITE BLOOD CELL COUNT (BEAKER) (test uyei=809) 12.1 K/ L 4.0-10.0 RED BLOOD CELL COUNT (BEAKER) (test qdur=923) 2.56 M/ L 4.20-5.80 HEMOGLOBIN (BEAKER) (test qduu=591) 8.0 GM/DL 13.0-16.8 HEMATOCRIT (BEAKER) (test cqvf=835) 24.6 % 40.0-50.0 MEAN CORPUSCULAR VOLUME (BEAKER) (test rbwe=359) 96.0 fL 82.0-98.0 MEAN CORPUSCULAR HEMOGLOBIN (BEAKER) (test 31.2 pg 27.0-33.0 qada=238) MEAN CORPUSCULAR HEMOGLOBIN CONC (BEAKER) (test 32.5 GM/DL 32.0-36.0 quqd=728) RED CELL DISTRIBUTION WIDTH (BEAKER) (test 16.3 % 12.0-15.0 sttr=577) PLATELET COUNT (BEAKER) (test hkkm=497) 148 K/CU MM 150-430 MEAN PLATELET VOLUME (BEAKER) (test pfzj=229) 8.2 fL 6.5-10.5 NUCLEATED RED BLOOD CELLS (BEAKER) (test 0 /100 WBC 0-0 hwoy=155) NEUTROPHILS RELATIVE PERCENT (BEAKER) (test 76 % fbca=053) LYMPHOCYTES RELATIVE PERCENT (BEAKER) (test 10 % wodw=027) MONOCYTES RELATIVE PERCENT (BEAKER) (test 13 % ympi=882) EOSINOPHILS RELATIVE PERCENT (BEAKER) (test 0 % yxks=876) BASOPHILS RELATIVE PERCENT (BEAKER) (test 0 % tkbf=678) NEUTROPHILS ABSOLUTE COUNT (BEAKER) (test 9.20 K/ L 1.80-8.00 ulpk=884) LYMPHOCYTES ABSOLUTE COUNT (BEAKER) (test 1.20 K/ L 1.48-4.50 neff=116) MONOCYTES ABSOLUTE COUNT (BEAKER) (test 1.60 K/ L 0.00-1.30 bwtq=225) EOSINOPHILS ABSOLUTE COUNT (BEAKER) (test 0.00 K/ L 0.00-0.50 vjzk=089) BASOPHILS ABSOLUTE COUNT (BEAKER) (test 0.00 K/ L 0.00-0.20 rshq=335) POCT-GLUCOSE [id number] 15:55:00 Test Item Value Reference Range Comments POC-GLUCOSE METER (BEAKER) 277 mg/dL 70-110 TESTED AT [facility] [id number] [facility] (test rfad=0056) [facility] [address] [id number] 15:43:00 Test Item Value Reference Range Comments MAGNESIUM (BEAKER) (test vhnn=042) 1.9 mg/dL 1.5-3.0 BASIC METABOLIC [id number] 15:43:00 Test Item Value Reference Range Comments SODIUM (BEAKER) (test 136 meq/L 135-148 nzoe=754) POTASSIUM (BEAKER) (test 3.8 meq/L 3.5-5.5 iiyq=341) CHLORIDE (BEAKER) (test 101 meq/L 98-106 duwy=341) CO2 (BEAKER) (test 24 meq/L 20-31 ejbi=339) BLOOD UREA NITROGEN 23 mg/dL 10-26 (BEAKER) (test cpaz=971) CREATININE (BEAKER) (test 0.88 mg/dL 0.50-1.20 zxcf=024) GLUCOSE RANDOM (BEAKER) 284 mg/dL 70-110 (test xnlg=369) CALCIUM (BEAKER) (test 8.1 mg/dL 8.5-10.5 hqob=355) EGFR (BEAKER) (test 84 mL/min/1.73 sq m ESTIMATED GFR IS NOT utmn=2381) ACCURATE CREATININE CLEARANCE IN PREDICTING GLOMERULAR FILTRATION RATE. ESTIMATED GFR IS NOT APPLICABLE FOR DIALYSIS PATIENTS. HEMOGLOBIN AND [id number] 15:37:00 Test Item Value Reference Range Comments HEMOGLOBIN (BEAKER) (test bmcr=214) 8.2 GM/DL 13.0-16.8 HEMATOCRIT (BEAKER) (test rslq=009) 25.9 % 40.0-50.0 POCT-GLUCOSE [id number] 10:38:00 Test Item Value Reference Range Comments POC-GLUCOSE METER (BEAKER) 224 mg/dL 70-110 TESTED AT [address] (test ikmg=9391) [facility] [address] HEMOGLOBIN [id number] 09:10:00 Test Item Value Reference Range Comments HEMOGLOBIN A1C (BEAKER) (test mqzw=780) 5.5 % 4.3-6.1 TROPONIN [id number] 06:50:00 Test Item Value Reference Range Comments TROPONIN I (BEAKER) (test bayg=242) 0.49 ng/mL 0.00-0.15 Troponin I (TnI) levels [...] and persistent tachyarrhythmia.RAD, CHEST, 1 VIEW, NON [id number] 06:49:00Reason for exam:->dyspneaShould this be performed at [...] MDReport Verified Date/Time: 09/19/2017 06:49:48 Reading Location: [place] [id number] CT Body Reading Room HEPATIC FUNCTION [id number] 06:40:00 Test Item Value Reference Range Comments TOTAL PROTEIN (BEAKER) (test zsdj=289) 6.6 gm/dL 6.0-8.5 ALBUMIN (BEAKER) (test qfhi=4179) 2.9 g/dL 3.5-5.0 BILIRUBIN TOTAL (BEAKER) (test attq=580) 1.8 mg/dL 0.1-1.3 BILIRUBIN DIRECT (BEAKER) (test wdkj=444) 1.0 mg/dL 0.0-0.5 ALKALINE PHOSPHATASE (BEAKER) (test vkrc=915) 94 U/L 30-115 AST (SGOT) (BEAKER) (test pgna=814) 70 U/L 5-40 ALT (SGPT) (BEAKER) (test fvaq=757) 30 U/L 6-50 LIPID [id number] 06:39:00 Test Item Value Reference Range Comments TRIGLYCERIDES (BEAKER) (test fxwu=443) 91 mg/dL CHOLESTEROL (BEAKER) (test ayxw=057) 152 mg/dL HDL CHOLESTEROL (BEAKER) (test thul=570) 16 mg/dL LDL CHOLESTEROL CALCULATED (BEAKER) (test 118 mg/dL vjvo=888) Triglyceride Reference Range: Low Risk <150 Borderline 150- 199 High Risk 200-499 Very High Risk >=500Cholesterol Reference Range: Low Risk <200 Borderline 200-239 High Risk > 240HDL Cholesterol Reference Range: Low Risk >=60 High Risk <40LDL Cholesterol Reference Range: Optimal <100 Near Optimal 100-129 Borderline 130-159 High 160-189 Very High >=190BASI METABOLIC [id number] 06:39:00 Test Item Value Reference Range Comments SODIUM (BEAKER) (test 139 meq/L 135-148 mqjt=693) POTASSIUM (BEAKER) (test 4.1 meq/L 3.5-5.5 acgn=346) CHLORIDE (BEAKER) (test 104 meq/L 98-106 fmnj=022) CO2 (BEAKER) (test 24 meq/L 20-31 dxyt=558) BLOOD UREA NITROGEN 21 mg/dL 10-26 (BEAKER) (test kuas=889) CREATININE (BEAKER) (test 0.77 mg/dL 0.50-1.20 niai=070) GLUCOSE RANDOM (BEAKER) 206 mg/dL 70-110 (test oogc=447) CALCIUM (BEAKER) (test 8.2 mg/dL 8.5-10.5 byca=477) EGFR (BEAKER) (test 98 mL/min/1.73 sq m ESTIMATED GFR IS NOT ghsu=9564) ACCURATE CREATININE CLEARANCE IN PREDICTING GLOMERULAR FILTRATION RATE. ESTIMATED GFR IS NOT APPLICABLE FOR DIALYSIS PATIENTS. CBC W/PLT COUNT & AUTO [id number] 06:33:00 Test Item Value Reference Range Comments WHITE BLOOD CELL COUNT 12.3 K/ L 4.0-10.0 (BEAKER) (test rkjo=187) RED BLOOD CELL COUNT (BEAKER) 2.93 M/ L 4.20-5.80 (test qehq=615) HEMOGLOBIN (BEAKER) (test 8.6 GM/DL 13.0-16.8 qplm=234) HEMATOCRIT (BEAKER) (test 28.6 % 40.0-50.0 kutd=597) MEAN CORPUSCULAR VOLUME 97.6 fL 82.0-98.0 (BEAKER) (test whwl=226) MEAN CORPUSCULAR HEMOGLOBIN 29.4 pg 27.0-33.0 (BEAKER) (test gyup=124) MEAN CORPUSCULAR HEMOGLOBIN 30.1 GM/DL 32.0-36.0 CONC (BEAKER) (test cwwb=936) RED CELL DISTRIBUTION WIDTH 16.0 % 12.0-15.0 (BEAKER) (test ccuh=576) PLATELET COUNT (BEAKER) (test 157 K/CU MM 150-430 Discordant result compared rpsw=179) to previous result. Clinical correlation required. MEAN PLATELET VOLUME (BEAKER) 8.8 fL 6.5-10.5 (test bljr=316) NUCLEATED RED BLOOD CELLS 0 /100 WBC 0-0 (BEAKER) (test tzap=067) NEUTROPHILS RELATIVE PERCENT 84 % (BEAKER) (test bqno=817) LYMPHOCYTES RELATIVE PERCENT 7 % (BEAKER) (test iwwk=048) MONOCYTES RELATIVE PERCENT 9 % (BEAKER) (test qvvm=457) EOSINOPHILS RELATIVE PERCENT 0 % (BEAKER) (test cfof=852) BASOPHILS RELATIVE PERCENT 0 % (BEAKER) (test dyee=379) NEUTROPHILS ABSOLUTE COUNT 10.30 K/ L 1.80-8.00 (BEAKER) (test javu=813) LYMPHOCYTES ABSOLUTE COUNT 0.80 K/ L 1.48-4.50 (BEAKER) (test nobc=929) MONOCYTES ABSOLUTE COUNT 1.10 K/ L 0.00-1.30 (BEAKER) (test onjx=807) EOSINOPHILS ABSOLUTE COUNT 0.00 K/ L 0.00-0.50 (BEAKER) (test lilp=872) BASOPHILS ABSOLUTE COUNT 0.00 K/ L 0.00-0.20 (BEAKER) (test ivkh=007) PROTHROMBIN [id number] 06:30:00 Test Item Value Reference Range Comments PROTIME (BEAKER) (test bpsv=790) 21.1 seconds 11.8-14.4 INR (BEAKER) (test fqdj=547) 1.8 1.2-1.5 RECOMMENDED COUMADIN/WARFARIN INR THERAPY RANGESSTANDARD DOSE: 2.0 - 3.0 Includes: PROPHYLAXIS forvenous thrombosis, systemic embolization; TREATMENT for venous thrombosis and/or pulmonary embolus.HIGH RISK: Target INR is 2.5-3.5 for patients with mechanical heart valves.B-TYPE NATRIURETIC FACTOR (BNP)2017-08 06:06:00 Test Item Value Reference Range Comments B-TYPE NATRIURETIC PEPTIDE (BEAKER) (test 726 pg/mL 0-100 sduw=418) TROPONIN [id number] 02:21:00 Test Item Value Reference Range Comments TROPONIN I (BEAKER) (test dzlb=128) 0.61 ng/mL 0.00-0.15 Troponin I (TnI) levels [...] acute neurological disease, and persistent tachyarrhythmia.HEMOGLOBIN AND [id number] 01: 53:00 Test Item Value Reference Range Comments HEMOGLOBIN (BEAKER) (test vwkv=998) 8.2 GM/DL 13.0-16.8 HEMATOCRIT (BEAKER) (test ahop=192) 25.7 % 40.0-50.0 TYPE AND SCREEN, [id number] 19:59:00 Test Item Value Reference Range Comments ABO/RH AUTOMATED (BEAKER) (test azlq=3026) O POSITIVE AB SCREEN (BEAKER) (test fykv=651) NEGATIVE RAD, CHEST, 1 VIEW, NON [id number] 19:20:00PT IN RAD ROOM 1Reason for exam:- [...] Verified Date/Time : 09/18/2017 19:20:43 Reading Location: [place] [id number] Consult Reading Room BLOOD GAS, [id number] 18:57:00 Test Item Value Reference Range Comments PH ARTERIAL (BEAKER) (test ktle=599) 7.45 7.35-7.45 PCO2 ARTERIAL (BEAKER) (test rpyp=522) 38 mmHg 35-45 PO2 ARTERIAL (BEAKER) (test hvpm=522) 84 mmHg 80-90 O2 SATURATION ARTERIAL (BEAKER) (test cnmn=334) 96.8 % 96.0-97.0 HCO3 ARTERIAL (BEAKER) (test ycry=441) 26 mmol/L 21-29 BASE EXCESS ARTERIAL (BEAKER) (test ftgg=289) 2.0 mmol/L -2.0-3.0 PATIENT TEMPERATURE (BEAKER) (test qcjm=4085) 37.0 C FIO2 (BEAKER) (test kunw=3800) 100.0 % U/S, [id number] 18:46:00Laterality?->RightReason for exam:-> Right effusioinFINAL REPORT Exam: [...] Malhotra MDReport Verified Date/Time: 201718:46:53 Reading Location: [facility] Radiology Reading Room LACTATE DEHYDROGENASE (LDH ), BODY [id number] 18:31:00 Test Item Value Reference Range Comments LACTATE DEHYDROGENASE FLUID (BEAKER) 104 U/L Light's criteria identifies (test vrzu=244) effusions if one or more are pre Absence of reference range indicates that normals have not been defined.Assay performance has not been validated for this type of specimen.GLUCOSE, BODY [id number] 18:31:00 Test Item Value Reference Range Comments GLUCOSE, BODY FLUID (BEAKER) (test qnny=6908) 234 mg/dL 70-110 Absence of reference range indicates that normals have not been defined.Assay performance has not been validated for this type of specimen.ALBUMIN, BODY [id number] 18:31:00 Test Item Value Reference Range Comments ALBUMIN FLUID (BEAKER) (test nyna=001) 0.7 gm/dL Reference Range: No Normals Assay performance has not been validated for this type of specimen.PROTEIN, BODY [id number] 18:31:00 Test Item Value Reference Range Comments PROTEIN FLUID (BEAKER) (test 1.0 g/dL Light's criteria identifies efsv=474) effusions if one or more are pre Absence of reference range indicates that normals have not been defined.Assay performance has not been validated for this type of specimen.POCT-GLUCOSE [id number] 16:46:00 Test Item Value Reference Range Comments POC-GLUCOSE METER (BEAKER) 250 mg/dL 70-110 TESTED AT [facility] [id number] [place] [address] (test mrba=0305) [facility] [address] [id number] 16:42:00 Test Item Value Reference Range Comments PROCALCITONIN (BEAKER) (test mqcx=9047) 0.29 ng/mL <0.05 SEPSIS RISK (ng/mL)Low: 0.05-0.50Intermediate: 0.51-2.00High: & gt;=2.01LACTATE DEHYDROGENASE (LDH)2017-09-18 15:36:00 Test Item Value Reference Range Comments LACTATE DEHYDROGENASE (BEAKER) 344 U/L 125-225 Specimen slightly hemolyzed (test hmza=097) TROPONIN [id number] 15:31:00 Test Item Value Reference Range Comments TROPONIN I (BEAKER) (test hmhr=735) 0.43 ng/mL 0.00-0.15 Troponin I (TnI) levels [...] and persistent tachyarrhythmia.CREATINE KINASE (CK), TOTAL AND [id number] 15:28:00 Test Item Value Reference Range Comments CREATINE KINASE TOTAL (BEAKER) (test mzkf=492) 153 U/L 30-300 CREATINE KINASE-MB (BEAKER) (test lnfl=939) 6.4 ng/mL 0.0-4.9 CREATINE KINASE-MB INDEX (BEAKER) (test ycmu=337) 4.2 % CK-MB Reference Range:<5 Normal5-10 Borderline>10 AbnormalBASIC METABOLIC [id number] 15:20:00 Test Item Value Reference Range Comments SODIUM (BEAKER) (test 138 meq/L 135-148 muqz=644) POTASSIUM (BEAKER) (test 3.9 meq/L 3.5-5.5 Specimen slightly fdaa=527) hemolyzed CHLORIDE (BEAKER) (test 103 meq/L 98-106 yufg=221) CO2 (BEAKER) (test 22 meq/L 20-31 iili=569) BLOOD UREA NITROGEN 16 mg/dL 10-26 (BEAKER) (test gsad=344) CREATININE (BEAKER) (test 0.73 mg/dL 0.50-1.20 Specimen slightly dctp=266) hemolyzed GLUCOSE RANDOM (BEAKER) 237 mg/dL 70-110 (test baby=402) CALCIUM (BEAKER) (test 8.3 mg/dL 8.5-10.5 uyxw=679) EGFR (BEAKER) (test 104 mL/min/1.73 sq m ESTIMATED GFR IS NOT fjyj=2871) ACCURATE CREATININE CLEARANCE IN PREDICTING GLOMERULAR FILTRATION RATE. ESTIMATED GFR IS NOT APPLICABLE FOR DIALYSIS PATIENTS. PROTHROMBIN [id number] 15:16:00 Test Item Value Reference Range Comments PROTIME (BEAKER) (test rgyy=782) 21.5 seconds 11.8-14.4 INR (BEAKER) (test naxv=117) 1.9 1.2-1.5 RECOMMENDED COUMADIN/WARFARIN INR THERAPY RANGESSTANDARD DOSE: 2.0 - 3.0 Includes: PROPHYLAXIS forvenous thrombosis, systemic embolization; TREATMENT for venous thrombosis and/or pulmonary embolus.HIGH RISK: Target INR is 2.5-3.5 for patients with mechanical heart valves.CBC W/PLT COUNT & AUTO [id number] 15:06:00 Test Item Value Reference Range Comments WHITE BLOOD CELL COUNT (BEAKER) (test wynq=451) 9.3 K/ L 4.0-10.0 RED BLOOD CELL COUNT (BEAKER) (test kqea=444) 2.48 M/ L 4.20-5.80 HEMOGLOBIN (BEAKER) (test imvf=421) 7.9 GM/DL 13.0-16.8 HEMATOCRIT (BEAKER) (test hket=948) 24.4 % 40.0-50.0 MEAN CORPUSCULAR VOLUME (BEAKER) (test zqcl=314) 98.2 fL 82.0-98.0 MEAN CORPUSCULAR HEMOGLOBIN (BEAKER) (test 31.7 pg 27.0-33.0 gezw=549) MEAN CORPUSCULAR HEMOGLOBIN CONC (BEAKER) (test 32.3 GM/DL 32.0-36.0 tjqb=793) RED CELL DISTRIBUTION WIDTH (BEAKER) (test 15.5 % 12.0-15.0 qkcl=041) PLATELET COUNT (BEAKER) (test cjva=589) 213 K/CU MM 150-430 MEAN PLATELET VOLUME (BEAKER) (test nlnl=043) 8.5 fL 6.5-10.5 NUCLEATED RED BLOOD CELLS (BEAKER) (test 0 /100 WBC 0-0 drsx=101) NEUTROPHILS RELATIVE PERCENT (BEAKER) (test 86 % aizm=867) LYMPHOCYTES RELATIVE PERCENT (BEAKER) (test 6 % kruu=302) MONOCYTES RELATIVE PERCENT (BEAKER) (test 8 % oopn=696) EOSINOPHILS RELATIVE PERCENT (BEAKER) (test 0 % ytgy=954) BASOPHILS RELATIVE PERCENT (BEAKER) (test 0 % tbgp=922) NEUTROPHILS ABSOLUTE COUNT (BEAKER) (test 8.00 K/ L 1.80-8.00 vjkd=378) LYMPHOCYTES ABSOLUTE COUNT (BEAKER) (test 0.60 K/ L 1.48-4.50 rveh=591) MONOCYTES ABSOLUTE COUNT (BEAKER) (test 0.70 K/ L 0.00-1.30 wxmk=628) EOSINOPHILS ABSOLUTE COUNT (BEAKER) (test 0.00 K/ L 0.00-0.50 svtq=755) BASOPHILS ABSOLUTE COUNT (BEAKER) (test 0.00 K/ L 0.00-0.20 tfkr=136) PLATELET [id number] 15:04:00 Test Item Value Reference Range Comments PLATELET COUNT (BEAKER) (test wieh=259) 213 K/CU MM 150-430
[2019-03-28] MEDS ORDERED: NA CHLORIDE 0.9% 500 ML ONE (14:20)
[2019-03-28] MEDS ORDERED: D50W 25 GM/50 ML SYRINGE IV ONE ×2 (14:20→14:58)
[2019-03-28 14:36] LABS: Absolute Lymphocytes (CBC) 1.2 K/uL (0.7-4.9); Basophils % 0.6 % (0-1.3); Hematocrit 30.5 % (39.6-49.0); MPV 8.3 fL (7.6-11.3); RBC Red Blood Cell Count 3.66 M/uL (4.33-5.43)
[2019-03-28 14:58] LABS: ALT/SGPT 23 U/L (12-78); AST/SGOT 46 U/L (15-37); Albumin 3.3 g/dL (3.4-5.0); Alkaline Phosphatase 108 U/L (45-117); BUN Blood Urea Nitrogen 16 mg/dL (7-18); Bicarbonate 24 mmol/L (21-32); Bilirubin Total 1.3 mg/dL (0.2-1.0); Glucose Level 62 mg/dL (74-106); Potassium 3.4 mmol/L (3.5-5.1); Protein, Total 7.8 g/dL (6.4-8.2); Sodium Level 140 mmol/L (136-145)
[2019-03-28 15:05] LABS: Anisocytosis 1+; Blood Morphology Comment NOTED (NOT SEEN); Platelet Estimate DECR
--- NOTE | 2019-03-28 17:00 | EDPHYS ---
Physician Documentation [facility] Name: Jean Lucio III Age: 78 yrs Sex: Male : 1940 Arrival Date: 03/28/2019 Time: 14:17 Bed 30 Private MD: Colin Garcia E ED Physician Paul Tinoco HPI: 03/28 14:29 This 78 yrs old Male presents to ER via Unassigned with complaints of Low ps1 Blood Sugar. 14:29 Patient went to the bar and had a couple of beers. went home and then checked his blood ps1 sugar because he wasn't feeling well. BS 190. He gave himself 25U insulin. Became confused EMS called and BS \\R\\30's was given oral glucose. Rechecked BS in ED and 57. Given D50 prior to my evaluation. Patient alert and oriented at this time but has no recollection of events. . Historical: - Allergies: 17:33 No Known Allergies; rv - Home Meds: 17:33 carvedilol 3.125 mg Oral tab 1 tab 2 times per day [Active]; furosemide 40 mg Oral tab rv 1 tab once daily [Active]; lisinopril 2.5 mg Oral tab 1 tab once daily [Active]; pantoprazole 40 mg Oral TbEC 1 tab 2 times per day [Active]; spironolactone 25 mg Oral tab 1 tab once daily [Active]; tamsulosin 0.4 mg Oral cp24 1 cap once daily [Active]; - PMHx: 17:33 Anemia; Angiodysplasia of duodenum; CAD s/p VA; Cholithiasis; COPD; Diabetes - NIDDM; rv diagnosed with cancer at [place], did not seek treatment; etoh abuse; Gastric varices; GERD; Hyperlipidemia; Hypertension; liver cancer; metabolic encephalopathy; Myocardial infarction; Pneumonia; rhabdomyolysis; UTI; - PSHx: 17:33 None; rv - Immunization history:: Adult Immunizations up to date. - Social history:: Smoking status: Patient uses tobacco products, smokes one-half pack cigarettes per day, Patient uses alcohol, on a daily basis. admits to "couple of beers" a day. - Ebola Screening: : No symptoms or risks identified at this time. ROS: 14:29 Constitutional: Negative for fever, chills, and weight loss, Eyes: Negative for injury, ps1 pain, redness, and discharge, Cardiovascular: Negative for chest pain, palpitations, and edema, Respiratory: Negative for shortness of breath, cough, wheezing, and pleuritic chest pain, Abdomen/GI: Negative for abdominal pain, nausea, vomiting, diarrhea, and constipation, MS/Extremity: Negative for injury and deformity, Skin: Negative for injury, rash, and discoloration, Neuro: Negative for headache, weakness, numbness, tingling, and seizure, Psych: Negative for depression, anxiety, suicide ideation, homicidal ideation, and hallucinations. Exam: 14:29 Constitutional: This is a well developed, well nourished patient who is awake, alert, ps1 and in no acute distress. Head/Face: Normocephalic, atraumatic. Eyes: Pupils equal round and reactive to light, extra-ocular motions intact. Lids and lashes normal. Conjunctiva and sclera are non-icteric and not injected. Chest/axilla: Normal chest wall appearance and motion. Nontender with no deformity. No lesions are appreciated. Cardiovascular: Regular rate and rhythm. No gallops, murmurs, or rubs. Normal PMI, no JVD. No pulse deficits. Respiratory: Lungs have equal breath sounds bilaterally, clear to auscultation and percussion. No rales, rhonchi or wheezes noted. No increased work of breathing, no retractions or nasal flaring. Abdomen/GI: Soft, non-tender, with normal bowel sounds. No distension or tympany. No guarding or rebound. No evidence of tenderness throughout. Skin: Warm, dry with normal turgor. Normal color with no rashes, no lesions, and no evidence of cellulitis. Neuro: Awake and alert, GCS 15, oriented to person, place, time, and situation. Cranial nerves II-XII grossly intact. Sensory grossly intact. 14:29 Musculoskeletal/extremity: Extremities: grossly normal except: noted in the right wrist: abrasion, contusion. Vital Signs: 14:22 BP 134 / 52; Pulse 55; Resp 16; Temp 98; Pulse Ox 99% ; Weight 74.84 kg; Height 6 ft. rv (182.88 cm); 15:30 BP 133 / 45; Pulse 64; Resp 16; Pulse Ox 100% on R/A; rv 16:30 BP 138 / 55; Pulse 60; Resp 16; Pulse Ox 100% on R/A; rv 17:26 BP 127 / 49; Pulse 53; Resp 15; Pulse Ox 100% on R/A; rv 14:22 Body Mass Index 22.38 (74.84 kg, 182.88 cm) rv MDM: 14:37 Patient medically screened. ps1 16:59 Data reviewed: vital signs, nurses notes, lab test result(s), and as a result, I will ps1 discharge patient. Counseling: I had a detailed discussion with the patient and/or guardian regarding: the historical points, exam findings, and any diagnostic results supporting the discharge/admit diagnosis, lab results, the need for outpatient follow up, to return to the emergency department if symptoms worsen or persist or if there are any questions or concerns that arise at home. ED course: rechecked BS multiple times and normalized. Pt stable for discharge.. 03/28 14:25 Order name: CBC with Diff; Complete Time: 15:27 ps1 03/28 14:25 Order name: CMP; Complete Time: 15:03 ps1 03/28 14:42 Order name: Manual Differential; Complete Time: 15:27 EDMS 03/28 15:42 Order name: Glucose, Ancillary Testing; Complete Time: 15:43 EDMS 03/28 15:46 Order name: Glucose, Ancillary Testing; Complete Time: 15:48 EDMS 03/28 17:00 Order name: Glucose, Ancillary Testing; Complete Time: 17:02 EDMS 03/28 14:25 Order name: Finger Stick; Complete Time: 15:11 ps1 03/28 17:00 Order name: Glucose, Ancillary Testing; Complete Time: 17:02 EDMS Administered Medications: 14:15 Drug: D50W 50 ml Route: IVP; Site: right forearm; rv 17:25 Follow up: Response: Blood sugar is elevated rv 15:13 Drug: D50W 50 ml Route: IVP; Site: right forearm; rv 17:25 Follow up: Response: Blood sugar is elevated rv Point of Care Testing: Blood Glucose: 14:15 Blood Glucose: 58 mg/dL; rv 14:42 Blood Glucose: 53 mg/dL; tr5 Ranges: Critical Glucose Levels:Adult <50 mg/dl or >400 mg/dl <40 mg/dl or >180 mg/dl Disposition: 03/28/19 16:59 Discharged to Home. Impression: Adverse effect of insulin and oral hypoglycemic [antidiabetic] drugs. - Condition is Stable. - Discharge Instructions: Hypoglycemia, Insulin Treatment for Diabetes. - Medication Reconciliation Form, Thank You Letter, Antibiotic Education, Prescription Opioid Use form. - Follow up: Colin Garcia MD; When: 24 Hours; Reason: Recheck today's complaints, Continuance of care, Re-evaluation by your physician. Follow up: Emergency Department; When: As needed; Reason: Worsening of condition. - Problem is an acute exacerbation. - Symptoms are resolved. Signatures: Dispatcher [employer] EDMS Paul Tinoco MD MD ps1 Scooby Oconnell RN RN rv Corrections: (The following items were deleted from the chart) 17:35 16:59 03/28/2019 16:59 Discharged to Home. Impression: Adverse effect of insulin and rv oral hypoglycemic [antidiabetic] drugs. Condition is Stable. Forms are Medication Reconciliation Form, Thank You Letter, Antibiotic Education, Prescription Opioid Use. Follow up: Colin Garcia; When: 24 Hours; Reason: Recheck today's complaints, Continuance of care, Re-evaluation by your physician. Follow up: Emergency Department; When: As needed; Reason: Worsening of condition. Problem is an acute exacerbation. Symptoms are resolved. ps1
--- NOTE | 2019-03-28 17:00 | ER ---
Nurse's Notes [facility] Name: Jean Lucio III Age: 78 yrs Sex: Male : 1940 Arrival Date: 03/28/2019 Time: 14:17 Bed 30 Private MD: Colin Garcia E Diagnosis: Adverse effect of insulin and oral hypoglycemic [antidiabetic] drugs Presentation: 03/28 15:01 Presenting complaint: EMS states: PATIENT HAD TWO BOTTLES IN THE BAR. WENT HOME BECAUSE rv HE IS NOT FEELING WELL. NEIGHBOR CALLED THE EMS. CHECKED THE SUGAR, IT IS 30. GIVEN PO GLUCOSE, WENT UP TO 52. Transition of care: patient was not received from another setting of care. Onset of symptoms was March 28, 2019 at 14:00. Risk Assessment: Do you want to hurt yourself or someone else? Patient reports no desire to harm self or others. Initial Sepsis Screen: Does the patient meet any 2 criteria? No. Patient's initial sepsis screen is negative. Does the patient have a suspected source of infection? No. Patient's initial sepsis screen is negative. Care prior to arrival: None. 15:01 Method Of Arrival: EMS: [facility] rv 15:01 Acuity: RITA 3 rv Historical: - Allergies: 17:33 No Known Allergies; rv - Home Meds: 17:33 carvedilol 3.125 mg Oral tab 1 tab 2 times per day [Active]; furosemide 40 mg Oral tab rv 1 tab once daily [Active]; lisinopril 2.5 mg Oral tab 1 tab once daily [Active]; pantoprazole 40 mg Oral TbEC 1 tab 2 times per day [Active]; spironolactone 25 mg Oral tab 1 tab once daily [Active]; tamsulosin 0.4 mg Oral cp24 1 cap once daily [Active]; - PMHx: 17:33 Anemia; Angiodysplasia of duodenum; CAD s/p MT; Cholithiasis; COPD; Diabetes - NIDDM; rv diagnosed with cancer at [place], did not seek treatment; etoh abuse; Gastric varices; GERD; Hyperlipidemia; Hypertension; liver cancer; metabolic encephalopathy; Myocardial infarction; Pneumonia; rhabdomyolysis; UTI; - PSHx: 17:33 None; rv - Immunization history:: Adult Immunizations up to date. - Social history:: Smoking status: Patient uses tobacco products, smokes one-half pack cigarettes per day, Patient uses alcohol, on a daily basis. admits to "couple of beers" a day. - Ebola Screening: : No symptoms or risks identified at this time. Screenin:10 Abuse screen: Denies threats or abuse. Denies injuries from another. Nutritional rv screening: No deficits noted. Tuberculosis screening: No symptoms or risk factors identified. Fall Risk None identified. Assessment: 15:09 General: Appears in no apparent distress. comfortable, Behavior is calm, cooperative. rv General: Behavior is drowsy. Pain: Denies pain. Neuro: Level of Consciousness is obeys commands, lethargic, Oriented to person, place, time, situation. Cardiovascular: Patient's skin is warm and dry. Respiratory: Airway is patent. GI: No signs and/or symptoms were reported involving the gastrointestinal system. : No signs and/or symptoms were reported regarding the genitourinary system. EENT: No signs and/or symptoms were reported regarding the EENT system. Derm: Skin is intact. Musculoskeletal: No signs and/or symptoms reported regarding the musculoskeletal system. Vital Signs: 14:22 BP 134 / 52; Pulse 55; Resp 16; Temp 98; Pulse Ox 99% ; Weight 74.84 kg; Height 6 ft. rv (182.88 cm); 15:30 BP 133 / 45; Pulse 64; Resp 16; Pulse Ox 100% on R/A; rv 16:30 BP 138 / 55; Pulse 60; Resp 16; Pulse Ox 100% on R/A; rv 17:26 BP 127 / 49; Pulse 53; Resp 15; Pulse Ox 100% on R/A; rv 14:22 Body Mass Index 22.38 (74.84 kg, 182.88 cm) rv ED Course: 14:17 Patient arrived in ED. ag5 14:17 Colin Garcia MD is Private Physician. ag5 14:23 Paul Tinoco MD is Attending Physician. ps1 14:55 Scooby Oconnell RN is Primary Nurse. rv 15:00 Patient has correct armband on for positive identification. Bed in low position. Call rv light in reach. Side rails up X2. 15:00 Pulse ox on. NIBP on. rv 15:00 Inserted saline lock: 22 gauge in right forearm, using aseptic technique. Blood rv collected. 15:00 Missed attempt(s): 20 gauge in right forearm. rv 15:09 Triage completed. rv 15:11 Arm band placed on right wrist. Patient placed in the treatment room, on a stretcher, rv on pulse oximetry, Patient notified of wait time. 16:58 Colin Garcia MD is Referral Physician. ps1 17:28 IV discontinued, intact, bleeding controlled, No redness/swelling at site. Pressure rv dressing applied. 17:28 No provider procedures requiring assistance completed. rv Administered Medications: 14:15 Drug: D50W 50 ml Route: IVP; Site: right forearm; rv 17:25 Follow up: Response: Blood sugar is elevated rv 15:13 Drug: D50W 50 ml Route: IVP; Site: right forearm; rv 17:25 Follow up: Response: Blood sugar is elevated rv Point of Care Testing: Blood Glucose: 14:15 Blood Glucose: 58 mg/dL; rv 14:42 Blood Glucose: 53 mg/dL; tr5 Ranges: Outcome: 16:59 Discharge ordered by MD. ps1 17:34 Discharged to home ambulatory, with family. rv 17:34 Condition: good 17:34 Condition: improved 17:34 Discharge instructions given to patient, Instructed on discharge instructions, follow up and referral plans. Demonstrated understanding of instructions, follow-up care. 17:35 Patient left the ED. rv Signatures: Paul Tinoco MD MD ps1 Scooby Oconnell RN RN rv Jade Marks Tommie RN RN tr5 Corrections: (The following items were deleted from the chart) 17:28 17:27 No provider procedures requiring assistance completed. rv rv 17:28 17:27 Patient did not have IV access during this emergency room visit. rv rv
[2019-03-28 18:00] VITALS: TEMP 98
[2019-03-28 18:01] VITALS: O2SAT 100
[2019-03-28 18:04] VITALS: BP 127/49
== END 2019-03-28 17:35 | disposition home or self-care (01) ==
LOC: ER 14:08
DX: E11.649 Type 2 diabetes mellitus with hypoglycemia without coma (principal); T38.3X5A Adverse effect of insulin and oral hypoglycemic [antidiabetic] drugs, initial encounter; F17.210 Nicotine dependence, cigarettes, uncomplicated; I10 Essential (primary) hypertension; I25.2 Old myocardial infarction; E78.5 Hyperlipidemia, unspecified; Z85.05 Personal history of malignant neoplasm of liver
CPT/HCPCS: 36415; 80053; 82962; 85025; 96374; 99284

== ENCOUNTER 2019-08-05 14:16 | Emergency (ER) | payer OTHER, SELFPAY ==
--- OUTSIDE RECORDS SUMMARY | 2019-08-05 14:20 | XMS REPORT ---
:1940 [facility] Address [address] [place] [address] [address]. [address] [place] [address] Care Team Providers Name Role Phone BRIANNE [...] Comments SODIUM (BEAKER) (test 138 meq/L 136-145 jpzu=210) POTASSIUM (BEAKER) (test 3.8 meq/L 3.5-5.1 vemx=985) CHLORIDE (BEAKER) (test 107 meq/L 98-107 mouz=913) CO2 (BEAKER) (test yzzl=260) 22 meq/L 22-29 BLOOD UREA NITROGEN (BEAKER) 10 mg/dL 7-21 (test ulaf=987) CREATININE (BEAKER) (test 0.77 mg/dL 0.57-1.25 tqpg=712) GLUCOSE RANDOM (BEAKER) 128 mg/dL 70-105 (test lfvx=366) CALCIUM (BEAKER) (test 9.1 mg/dL 8.4-10.2 cfxx=852) EGFR (BEAKER) (test 98 mL/min/1.73 sq m ESTIMATED GFR IS NOT gcrm=5606) ACCURATE CREATININE CLEARANCE IN PREDICTING GLOMERULAR FILTRATION RATE. ESTIMATED GFR IS NOT APPLICABLE FOR DIALYSIS PATIENTS. Specimen slightly ictericHEPATIC FUNCTION [id number] 13:53:00 Test Item Value Reference Range Comments TOTAL PROTEIN (BEAKER) (test vxcb=739) 7.2 gm/dL 6.0-8.3 ALBUMIN (BEAKER) (test qmep=0673) 3.3 g/dL 3.5-5.0 BILIRUBIN TOTAL (BEAKER) (test dvcd=004) 2.0 mg/dL 0.2-1.2 BILIRUBIN DIRECT (BEAKER) (test qefi=902) 1.1 mg/dL 0.1-0.5 ALKALINE PHOSPHATASE (BEAKER) (test ehjd=379) 101 U/L 40-150 AST (SGOT) (BEAKER) (test flyy=305) 45 U/L 5-34 ALT (SGPT) (BEAKER) (test hnqt=202) 21 U/L 6-55 Specimen slightly ictericPROTHROMBIN TIME/[id number] 13:35:00 Test Item Value Reference Range Comments PROTIME (BEAKER) (test wcsa=853) 16.9 seconds 11.9-14.2 INR (BEAKER) (test ixtf=932) 1.5 <=5.9 Effective 12/22/2018: PT Reference Range ChangeNew: 11.9-14.2 Previous: 11.7- 14.7RECOMMENDED COUMADIN/WARFARIN INR THERAPY RANGESSTANDARD DOSE: 2.0-3.0 Includes: PROPHYLAXIS for venous thrombosis, systemic embolization; TREATMENT for venous thrombosis and/or pulmonary embolus.HIGH RISK: Target INR is2.5-3.5 for patients wiht mechanical heart valves.CBC W/PLT COUNT & AUTO [id number] 13:29:00 Test Item Value Reference Range Comments WHITE BLOOD CELL COUNT (BEAKER) (test gaik=689) 4.4 K/ L 3.5-10.5 RED BLOOD CELL COUNT (BEAKER) (test zlmf=067) 3.67 M/ L 4.63-6.08 HEMOGLOBIN (BEAKER) (test hbjw=699) 9.8 GM/DL 13.7-17.5 HEMATOCRIT (BEAKER) (test ifej=132) 33.4 % 40.1-51.0 MEAN CORPUSCULAR VOLUME (BEAKER) (test vzdd=168) 91.0 fL 79.0-92.2 MEAN CORPUSCULAR HEMOGLOBIN (BEAKER) (test 26.7 pg 25.7-32.2 clkw=826) MEAN CORPUSCULAR HEMOGLOBIN CONC (BEAKER) (test 29.3 GM/DL 32.3-36.5 omwi=950) RED CELL DISTRIBUTION WIDTH (BEAKER) (test 25.9 % 11.6-14.4 gdmp=838) PLATELET COUNT (BEAKER) (test eozk=375) 64 K/CU MM 150-450 MEAN PLATELET VOLUME (BEAKER) (test zqda=057) 9.8 fL 9.4-12.4 NUCLEATED RED BLOOD CELLS (BEAKER) (test 0 /100 WBC 0-0 yyai=050) NEUTROPHILS RELATIVE PERCENT (BEAKER) (test 42 % pamt=148) LYMPHOCYTES RELATIVE PERCENT (BEAKER) (test 38 % dbaj=156) MONOCYTES RELATIVE PERCENT (BEAKER) (test 14 % gpfy=337) EOSINOPHILS RELATIVE PERCENT (BEAKER) (test 5 % nbwm=620) BASOPHILS RELATIVE PERCENT (BEAKER) (test 1 % twvc=889) NEUTROPHILS ABSOLUTE COUNT (BEAKER) (test 1.87 K/ L 1.78-5.38 sopy=694) LYMPHOCYTES ABSOLUTE COUNT (BEAKER) (test 1.68 K/ L 1.32-3.57 vzhu=855) MONOCYTES ABSOLUTE COUNT (BEAKER) (test rsak=249) 0.61 K/ L 0.30-0.82 EOSINOPHILS ABSOLUTE COUNT (BEAKER) (test 0.21 K/ L 0.04-0.54 fjvn=835) BASOPHILS ABSOLUTE COUNT (BEAKER) (test mkko=135) 0.02 K/ L 0.01-0.08 IMMATURE GRANULOCYTES-RELATIVE PERCENT (BEAKER) 0 % 0-1 (test fbpv=7526) BLOOD [id number] 02:00:00 Test Item Value Reference Range Comments CULTURE (BEAKER) (test shhy=4498) No growth in 5 days BLOOD [id number] 02:00:00 Test Item Value Reference Range Comments CULTURE (BEAKER) (test mxrz=5797) No growth in 5 days MR, ABDOMEN, [id number] 14:11:00MRI abdomen liver protocol Patient pending dischargeFINAL [...] and small left pleural effusions. Signed: Cooper Dimsa MDReport Verified Date/Time: 02/13/2019 14:11:00 Reading Location: [facility] C013Y CT Body Reading Room POCT-GLUCOSE [id number] 10:52:00 Test Item Value Reference Range Comments POC-GLUCOSE METER (BEAKER) 160 mg/dL 70-110 TESTED AT [address] (test tqee=7918) [place] [id number] POCT-GLUCOSE [id number] 07:35:00 Test Item Value Reference Range Comments POC-GLUCOSE METER (BEAKER) 120 mg/dL 70-110 TESTED AT [address] (test gmkk=4137) [place] [id number] BASIC METABOLIC [id number] 06:42:00 Test Item Value Reference Range Comments SODIUM (BEAKER) (test 139 meq/L 136-145 kkxg=288) POTASSIUM (BEAKER) (test 4.0 meq/L 3.5-5.1 Specimen slightly jxex=533) hemolyzed CHLORIDE (BEAKER) (test 115 meq/L 98-107 sppz=576) CO2 (BEAKER) (test 19 meq/L 22-29 zyxu=253) BLOOD UREA NITROGEN 6 mg/dL 7-21 (BEAKER) (test mzls=917) CREATININE (BEAKER) (test 0.65 mg/dL 0.57-1.25 Specimen slightly bhdk=037) hemolyzed GLUCOSE RANDOM (BEAKER) 91 mg/dL 70-105 (test zgyz=718) CALCIUM (BEAKER) (test 7.7 mg/dL 8.4-10.2 goup=525) EGFR (BEAKER) (test 119 mL/min/1.73 sq m ESTIMATED GFR IS NOT yjvr=8285) ACCURATE CREATININE CLEARANCE IN PREDICTING GLOMERULAR FILTRATION RATE. ESTIMATED GFR IS NOT APPLICABLE FOR DIALYSIS PATIENTS. HEPATIC FUNCTION [id number] 06:41:00 Test Item Value Reference Range Comments TOTAL PROTEIN (BEAKER) (test 5.5 gm/dL 6.0-8.3 Specimen slightly hemolyzed gaep=450) ALBUMIN (BEAKER) (test 2.7 g/dL 3.5-5.0 Specimen slightly hemolyzed xhud=5220) BILIRUBIN TOTAL (BEAKER) (test 1.4 mg/dL 0.2-1.2 Specimen slightly hemolyzed vcim=987) BILIRUBIN DIRECT (BEAKER) (test 0.6 mg/dL 0.1-0.5 Specimen slightly hemolyzed tkfj=009) ALKALINE PHOSPHATASE (BEAKER) 56 U/L 40-150 (test pbvc=735) AST (SGOT) (BEAKER) (test 49 U/L 5-34 Specimen slightly hemolyzed bvbm=724) ALT (SGPT) (BEAKER) (test 18 U/L 6-55 Specimen slightly hemolyzed uscc=879) [id number] 05:52:00 Test Item Value Reference Range Comments PROTIME (BEAKER) (test bvst=814) 20.7 seconds 11.9-14.2 INR (BEAKER) (test ivxm=291) 1.9 <=5.9 PARTIAL THROMBOPLASTIN TIME (BEAKER) (test 46.6 seconds 22.5-36.0 jpeh=588) Effective 12/22/2018: PT Reference Range ChangeNew: 11.9-14.2 Previous: 11.7- 14.7RECOMMENDED COUMADIN/WARFARIN INR THERAPY RANGESSTANDARD DOSE: 2.0-3.0 Includes: PROPHYLAXIS for venous thrombosis, systemic embolization; TREATMENT for venous thrombosis and/or pulmonary embolus.HIGH RISK: Target INR is2.5-3.5 for patients wiht mechanical heart valves.PROTHROMBIN TIME/[id number] 05:51: 00 Test Item Value Reference Range Comments PROTIME (BEAKER) (test futy=289) 20.7 seconds 11.9-14.2 INR (BEAKER) (test bvqs=979) 1.9 <=5.9 Effective 12/22/2018: PT Reference Range ChangeNew: 11.9-14.2 Previous: 11.7- 14.7RECOMMENDED COUMADIN/WARFARIN INR THERAPY RANGESSTANDARD DOSE: 2.0-3.0 Includes: PROPHYLAXIS for venous thrombosis, systemic embolization; TREATMENT for venous thrombosis and/or pulmonary embolus.HIGH RISK: Target INR is2.5-3.5 for patients wiht mechanical heart valves.CBC (HEMOGRAM ONLY)2019-02-13 05:26:00 Test Item Value Reference Range Comments WHITE BLOOD CELL COUNT (BEAKER) (test hsgv=382) 2.9 K/ L 3.5-10.5 RED BLOOD CELL COUNT (BEAKER) (test vrlb=424) 2.76 M/ L 4.63-6.08 HEMOGLOBIN (BEAKER) (test wase=961) 7.3 GM/DL 13.7-17.5 HEMATOCRIT (BEAKER) (test adtw=266) 23.5 % 40.1-51.0 MEAN CORPUSCULAR VOLUME (BEAKER) (test ajqu=967) 85.1 fL 79.0-92.2 MEAN CORPUSCULAR HEMOGLOBIN (BEAKER) (test 26.4 pg 25.7-32.2 jhzb=317) MEAN CORPUSCULAR HEMOGLOBIN CONC (BEAKER) (test 31.1 GM/DL 32.3-36.5 zsrr=354) RED CELL DISTRIBUTION WIDTH (BEAKER) (test 19.4 % 11.6-14.4 lhmv=639) PLATELET COUNT (BEAKER) (test jvcx=053) 73 K/CU MM 150-450 MEAN PLATELET VOLUME (BEAKER) (test eozs=240) 10.3 fL 9.4-12.4 NUCLEATED RED BLOOD CELLS (BEAKER) (test 0 /100 WBC 0-0 yepa=289) POCT-GLUCOSE [id number] 21:21:00 Test Item Value Reference Range Comments POC-GLUCOSE METER (BEAKER) 185 mg/dL 70-110 TESTED AT [address] (test rhfw=2770) [facility] [address] POCT-GLUCOSE [id number] 15:55:00 Test Item Value Reference Range Comments POC-GLUCOSE METER (BEAKER) 154 mg/dL 70-110 TESTED AT [address] (test tgqe=9398) [facility] [address] POCT-GLUCOSE [id number] 15:55:00 Test Item Value Reference Range Comments POC-GLUCOSE METER (BEAKER) 144 mg/dL 70-110 TESTED AT [address] (test tijf=4972) [facility] [address] POCT-GLUCOSE [id number] 10:19:00 Test Item Value Reference Range Comments POC-GLUCOSE METER (BEAKER) 130 mg/dL 70-110 TESTED AT [facility] [address] (test negw=2792) [facility] [address] ALPHA FETOPROTEIN (AFP), TUMOR [id number] 08:37:00 Test Item Value Reference Range Comments ALPHA-FETOPROTEIN (BEAKER) (test xzng=3149) 362.4 ng/mL <10.0 [id number] 07:20:00 Test Item Value Reference Range Comments FERRITIN (BEAKER) (test xgtf=673) 33 ng/mL 5-275 IRON, TIBC, % SAT. (WITHOUT FERRITIN)2019-02-12 06:59:00 Test Item Value Reference Range Comments IRON (BEAKER) (test jyyb=804) 43.0 ug/dL 40.0-160.0 TOTAL IRON BINDING CAPACITY (BEAKER) (test 338 ug/dL 250-450 hcgl=559) IRON % SATURATION (2) (BEAKER) (test rnkg=8377) 13 % 20-55 BASIC METABOLIC [id number] 06:22:00 Test Item Value Reference Range Comments SODIUM (BEAKER) (test 137 meq/L 136-145 xyrk=531) POTASSIUM (BEAKER) (test 4.0 meq/L 3.5-5.1 hnmv=633) CHLORIDE (BEAKER) (test 113 meq/L 98-107 atxe=956) CO2 (BEAKER) (test 20 meq/L 22-29 uqrq=754) BLOOD UREA NITROGEN 7 mg/dL 7-21 (BEAKER) (test jtku=079) CREATININE (BEAKER) (test 0.70 mg/dL 0.57-1.25 coge=665) GLUCOSE RANDOM (BEAKER) 103 mg/dL 70-105 (test imlq=924) CALCIUM (BEAKER) (test 7.7 mg/dL 8.4-10.2 suav=665) EGFR (BEAKER) (test 109 mL/min/1.73 sq m ESTIMATED GFR IS NOT zzwp=5355) ACCURATE CREATININE CLEARANCE IN PREDICTING GLOMERULAR FILTRATION RATE. ESTIMATED GFR IS NOT APPLICABLE FOR DIALYSIS PATIENTS. [id number] 06:15:00 Test Item Value Reference Range Comments PHOSPHORUS (BEAKER) (test uinf=033) 2.6 mg/dL 2.3-4.7 [id number] 06:15:00 Test Item Value Reference Range Comments MAGNESIUM (BEAKER) (test eyxs=460) 1.9 mg/dL 1.6-2.6 HEPATIC FUNCTION [id number] 06:15:00 Test Item Value Reference Range Comments TOTAL PROTEIN (BEAKER) (test hzqt=368) 5.7 gm/dL 6.0-8.3 ALBUMIN (BEAKER) (test blug=6687) 2.8 g/dL 3.5-5.0 BILIRUBIN TOTAL (BEAKER) (test lghc=739) 1.8 mg/dL 0.2-1.2 BILIRUBIN DIRECT (BEAKER) (test dwfe=499) 0.9 mg/dL 0.1-0.5 ALKALINE PHOSPHATASE (BEAKER) (test ndwz=234) 54 U/L 40-150 AST (SGOT) (BEAKER) (test tfyn=865) 41 U/L 5-34 ALT (SGPT) (BEAKER) (test fkbb=437) 16 U/L 6-55 PROTHROMBIN [id number] 05:51:00 Test Item Value Reference Range Comments PROTIME (BEAKER) (test pnbg=858) 19.8 seconds 11.9-14.2 INR (BEAKER) (test jkxc=153) 1.8 <=5.9 Effective 12/22/2018: PT Reference Range ChangeNew: 11.9-14.2 Previous: 11.7- 14.7RECOMMENDED COUMADIN/WARFARIN INR THERAPY RANGESSTANDARD DOSE: 2.0-3.0 Includes: PROPHYLAXIS for venous thrombosis, systemic embolization; TREATMENT for venous thrombosis and/or pulmonary embolus.HIGH RISK: Target INR is2.5-3.5 for patients wiht mechanical heart valves.PT/[id number] 05:51:00 Test Item Value Reference Range Comments PROTIME (BEAKER) (test hruc=533) 19.8 seconds 11.9-14.2 INR (BEAKER) (test afll=040) 1.8 <=5.9 PARTIAL THROMBOPLASTIN TIME (BEAKER) (test 43.4 seconds 22.5-36.0 vfre=925) Effective 12/22/2018: PT Reference Range ChangeNew: 11.9-14.2 Previous: 11.7- 14.7RECOMMENDED COUMADIN/WARFARIN INR THERAPY RANGESSTANDARD DOSE: 2.0-3.0 Includes: PROPHYLAXIS for venous thrombosis, systemic embolization; TREATMENT for venous thrombosis and/or pulmonary embolus.HIGH RISK: Target INR is2.5-3.5 for patients wiht mechanical heart valves.CBC (HEMOGRAM ONLY)2019-02-12 05:30:00 Test Item Value Reference Range Comments WHITE BLOOD CELL COUNT (BEAKER) (test hhxu=748) 3.3 K/ L 3.5-10.5 RED BLOOD CELL COUNT (BEAKER) (test bhgg=795) 2.79 M/ L 4.63-6.08 HEMOGLOBIN (BEAKER) (test wixq=551) 7.2 GM/DL 13.7-17.5 HEMATOCRIT (BEAKER) (test mlmx=672) 23.5 % 40.1-51.0 MEAN CORPUSCULAR VOLUME (BEAKER) (test ydjw=335) 84.2 fL 79.0-92.2 MEAN CORPUSCULAR HEMOGLOBIN (BEAKER) (test 25.8 pg 25.7-32.2 jfqm=039) MEAN CORPUSCULAR HEMOGLOBIN CONC (BEAKER) (test 30.6 GM/DL 32.3-36.5 pdzu=179) RED CELL DISTRIBUTION WIDTH (BEAKER) (test 18.9 % 11.6-14.4 rgyt=260) PLATELET COUNT (BEAKER) (test mikl=199) 69 K/CU MM 150-450 MEAN PLATELET VOLUME (BEAKER) (test swtn=728) 10.4 fL 9.4-12.4 NUCLEATED RED BLOOD CELLS (BEAKER) (test 1 /100 WBC 0-0 vere=877) HEPATITIS A ANTIBODY, [id number] 19:24:00 Test Item Value Reference Range Comments HEPATITIS A IGG ANTIBODY (BEAKER) (test Nonreactive Nonreactive jbab=7081) ALPHA FETOPROTEIN (AFP), TUMOR [id number] 17:58:00 Test Item Value Reference Range Comments ALPHA-FETOPROTEIN (BEAKER) (test zzww=6834) 356.8 ng/mL <10.0 HEMOGLOBIN AND [id number] 14:32:00 Test Item Value Reference Range Comments HEMOGLOBIN (BEAKER) (test rzxe=871) 7.6 GM/DL 13.7-17.5 HEMATOCRIT (BEAKER) (test kfop=144) 25.6 % 40.1-51.0 U/S, ABDOMINAL, WITH [id number] 13:40:00Reason for exam:->abdominal pain, cirrhosis ? liver [...] Joseph MDReport VerifiedDate/Time: 02/11/2019 13:40:35 Reading Location: [address] Radiology Reading Room RE [id number] 08:56:00 Test Item Value Reference Range Comments TROPONIN I (BEAKER) (test krrn=364) 0.10 ng/mL 0.00-0.03 Troponin I (TnI) levels [...] failure, acidosis, acute neurological disease, and persistent tachyarrhythmia.[id number] 01:49:00 Test Item Value Reference Range Comments AMMONIA (BEAKER) (test hrfk=120) 63 mol/L 18-72 CBC W/PLT COUNT & AUTO [id number] 01:33:00 Test Item Value Reference Range Comments WHITE BLOOD CELL COUNT (BEAKER) (test uhgy=338) 3.8 K/ L 3.5-10.5 RED BLOOD CELL COUNT (BEAKER) (test yzxn=605) 2.19 M/ L 4.63-6.08 HEMOGLOBIN (BEAKER) (test huuv=765) 5.1 GM/DL 13.7-17.5 HEMATOCRIT (BEAKER) (test vgqm=770) 17.8 % 40.1-51.0 MEAN CORPUSCULAR VOLUME (BEAKER) (test csha=850) 81.3 fL 79.0-92.2 MEAN CORPUSCULAR HEMOGLOBIN (BEAKER) (test 23.3 pg 25.7-32.2 zcji=317) MEAN CORPUSCULAR HEMOGLOBIN CONC (BEAKER) (test 28.7 GM/DL 32.3-36.5 vfzg=821) RED CELL DISTRIBUTION WIDTH (BEAKER) (test 20.2 % 11.6-14.4 facs=855) PLATELET COUNT (BEAKER) (test bkjz=464) 71 K/CU MM 150-450 MEAN PLATELET VOLUME (BEAKER) (test kuzh=003) 10.2 fL 9.4-12.4 NUCLEATED RED BLOOD CELLS (BEAKER) (test 0 /100 WBC 0-0 smar=610) NEUTROPHILS RELATIVE PERCENT (BEAKER) (test 42 % pjws=508) LYMPHOCYTES RELATIVE PERCENT (BEAKER) (test 33 % kece=907) MONOCYTES RELATIVE PERCENT (BEAKER) (test 21 % rhuj=046) EOSINOPHILS RELATIVE PERCENT (BEAKER) (test 4 % ztbg=725) BASOPHILS RELATIVE PERCENT (BEAKER) (test 0 % adoa=968) NEUTROPHILS ABSOLUTE COUNT (BEAKER) (test 1.58 K/ L 1.78-5.38 spel=779) LYMPHOCYTES ABSOLUTE COUNT (BEAKER) (test 1.22 K/ L 1.32-3.57 efma=358) MONOCYTES ABSOLUTE COUNT (BEAKER) (test vaui=565) 0.79 K/ L 0.30-0.82 EOSINOPHILS ABSOLUTE COUNT (BEAKER) (test 0.15 K/ L 0.04-0.54 zawh=212) BASOPHILS ABSOLUTE COUNT (BEAKER) (test ommm=664) 0.00 K/ L 0.01-0.08 IMMATURE GRANULOCYTES-RELATIVE PERCENT (BEAKER) 0 % 0-1 (test qaan=9131) TROPONIN [id number] 01:23:00 Test Item Value Reference Range Comments TROPONIN I (BEAKER) (test yxfz=068) < ng/mL 0.00-0.03 Troponin I (TnI) levels [...] failure, acidosis, acute neurological disease, and persistent tachyarrhythmia.[id number] 01:17:00 Test Item Value Reference Range Comments PHOSPHORUS (BEAKER) (test yfpt=582) 2.7 mg/dL 2.3-4.7 [id number] 01:17:00 Test Item Value Reference Range Comments MAGNESIUM (BEAKER) (test hqvt=412) 1.9 mg/dL 1.6-2.6 BASIC METABOLIC [id number] 01:17:00 Test Item Value Reference Range Comments SODIUM (BEAKER) (test 137 meq/L 136-145 rebw=176) POTASSIUM (BEAKER) (test 3.4 meq/L 3.5-5.1 qkpj=665) CHLORIDE (BEAKER) (test 109 meq/L 98-107 rvvf=310) CO2 (BEAKER) (test 21 meq/L 22-29 cnhh=125) BLOOD UREA NITROGEN 9 mg/dL 7-21 (BEAKER) (test iekb=064) CREATININE (BEAKER) (test 0.65 mg/dL 0.57-1.25 revi=172) GLUCOSE RANDOM (BEAKER) 104 mg/dL 70-105 (test yehb=156) CALCIUM (BEAKER) (test 8.1 mg/dL 8.4-10.2 lyas=491) EGFR (BEAKER) (test 119 mL/min/1.73 sq m ESTIMATED GFR IS NOT uums=6850) ACCURATE CREATININE CLEARANCE IN PREDICTING GLOMERULAR FILTRATION RATE. ESTIMATED GFR IS NOT APPLICABLE FOR DIALYSIS PATIENTS. Specimen slightly ictericHEPATIC FUNCTION [id number] 01:17:00 Test Item Value Reference Range Comments TOTAL PROTEIN (BEAKER) (test dxqw=303) 5.7 gm/dL 6.0-8.3 ALBUMIN (BEAKER) (test pvna=6943) 2.8 g/dL 3.5-5.0 BILIRUBIN TOTAL (BEAKER) (test gtzn=052) 2.3 mg/dL 0.2-1.2 BILIRUBIN DIRECT (BEAKER) (test dcvb=356) 0.8 mg/dL 0.1-0.5 ALKALINE PHOSPHATASE (BEAKER) (test sxjv=224) 59 U/L 40-150 AST (SGOT) (BEAKER) (test wdlp=105) 29 U/L 5-34 ALT (SGPT) (BEAKER) (test jsew=334) 11 U/L 6-55 Specimen slightly ictericPT/[id number] 01:08:00 Test Item Value Reference Range Comments PROTIME (BEAKER) (test base=978) 19.5 seconds 11.9-14.2 INR (BEAKER) (test onqx=934) 1.8 <=5.9 PARTIAL THROMBOPLASTIN TIME (BEAKER) (test 42.1 seconds 22.5-36.0 jyck=241) Effective 12/22/2018: PT Reference Range ChangeNew: 11.9-14.2 Previous: 11.7- 14.7RECOMMENDED COUMADIN/WARFARIN INR THERAPY RANGESSTANDARD DOSE: 2.0-3.0 Includes: PROPHYLAXIS for venous thrombosis, systemic embolization; TREATMENT for venous thrombosis and/or pulmonary embolus.HIGH RISK: Target INR is2.5-3.5 for patients wiht mechanical heart valves.PROTHROMBIN TIME/[id number] 01:07: 00 Test Item Value Reference Range Comments PROTIME (BEAKER) (test jqci=036) 19.5 seconds 11.9-14.2 INR (BEAKER) (test gsrh=261) 1.8 <=5.9 Effective 12/22/2018: PT Reference Range ChangeNew: 11.9-14.2 Previous: 11.7- 14.7RECOMMENDED COUMADIN/WARFARIN INR THERAPY RANGESSTANDARD DOSE: 2.0-3.0 Includes: PROPHYLAXIS for venous thrombosis, systemic embolization; TREATMENT for venous thrombosis and/or pulmonary embolus.HIGH RISK: Target INR is2.5-3.5 for patients wiht mechanical heart valves.URINALYSIS W/ REFLEX URINE [id number] 00:55:00 Test Item Value Reference Range Comments COLOR (BEAKER) (test xfia=156) Yellow CLARITY (BEAKER) (test lgul=294) Clear SPECIFIC GRAVITY UA (BEAKER) (test olbp=054) 1.013 1.001-1.035 PH UA (BEAKER) (test kyxd=320) 6.0 5.0-8.0 PROTEIN UA (BEAKER) (test qqga=882) Negative Negative GLUCOSE UA (BEAKER) (test rvuz=489) Negative Negative KETONES UA (BEAKER) (test jakq=705) 10 mg/dL Negative BILIRUBIN UA (BEAKER) (test brqc=050) Negative Negative BLOOD UA (BEAKER) (test tyya=488) Negative Negative NITRITE UA (BEAKER) (test iljo=031) Negative Negative LEUKOCYTE ESTERASE UA (BEAKER) (test hene=608) Negative Negative UROBILINOGEN UA (BEAKER) (test lzel=204) 0.2 mg/dL 0.2-1.0 RBC UA (BEAKER) (test gemu=570) 0 /HPF WBC UA (BEAKER) (test frog=582) 1 /HPF MUCUS (BEAKER) (test gmin=1195) Rare SOURCE(BEAKER) (test hdpe=4815) CBC W/PLT COUNT & AUTO [id number] 23:53:00 Test Item Value Reference Range Comments WHITE BLOOD CELL COUNT (BEAKER) (test xwhf=956) 4.0 K/ L 3.5-10.5 RED BLOOD CELL COUNT (BEAKER) (test jrtd=745) 2.47 M/ L 4.63-6.08 HEMOGLOBIN (BEAKER) (test ubej=225) 5.9 GM/DL 13.7-17.5 HEMATOCRIT (BEAKER) (test wjec=271) 20.2 % 40.1-51.0 MEAN CORPUSCULAR VOLUME (BEAKER) (test zqro=504) 81.8 fL 79.0-92.2 MEAN CORPUSCULAR HEMOGLOBIN (BEAKER) (test 23.9 pg 25.7-32.2 zniv=492) MEAN CORPUSCULAR HEMOGLOBIN CONC (BEAKER) (test 29.2 GM/DL 32.3-36.5 jaud=426) RED CELL DISTRIBUTION WIDTH (BEAKER) (test 20.3 % 11.6-14.4 ceqj=685) PLATELET COUNT (BEAKER) (test fhqy=825) 93 K/CU MM 150-450 MEAN PLATELET VOLUME (BEAKER) (test odfd=938) 10.5 fL 9.4-12.4 NUCLEATED RED BLOOD CELLS (BEAKER) (test 0 /100 WBC 0-0 vmdq=240) (CELLAVISION MANUAL DIFF)[id number] 23:53:00 Test Item Value Reference Range Comments NEUTROPHILS - REL (CELLAVISION)(BEAKER) (test 57 % xacl=0368) LYMPHOCYTES - REL (CELLAVISION)(BEAKER) (test 24 % yzdh=2233) MONOCYTES - REL (CELLAVISION)(BEAKER) (test 10 % kxzn=7787) EOSINOPHILS - REL (CELLAVISION)(BEAKER) (test 7 % mkce=3287) BANDS - REL (CELLAVISION)(BEAKER) (test 2 % 0-10 dmsv=0351) NEUTROPHILS - ABS (CELLAVISION)(BEAKER) (test 2.28 K/ul 1.78-5.38 hxmw=1118) LYMPHOCYTES - ABS (CELLAVISION)(BEAKER) (test 0.96 K/ul 1.32-3.57 ajbi=8368) MONOCYTES - ABS (CELLAVISION)(BEAKER) (test 0.40 K/uL 0.30-0.82 minh=0502) EOSINOPHILS - ABS (CELLAVISION)(BEAKER) (test 0.28 K/uL 0.04-0.54 scdy=9648) BANDS - ABS (CELLAVISION)(BEAKER) (test 0.08 K/uL 0.00-0.80 zfqo=9480) TOTAL COUNTED (BEAKER) (test mqeu=3155) 100 GIANT PLATELETS (BEAKER) (test fzpv=950) Present VACUOLATED NEUTROPHILS (BEAKER) (test zmor=121) Present POLYCHROMATOPHILLIC RBCS(BEAKER) (test hegv=928) 1+ few HYPOCHROMIA (BEAKER) (test wjgi=258) 2+ moderate ANISOCYTOSIS (BEAKER) (test deus=440) 3+ many MICROCYTES (BEAKER) (test bsqj=814) 1+ few MACROCYTES (BEAKER) (test loql=252) 1+ few POIKILOCYTES (BEAKER) (test fbxx=880) 1+ few SPHEROCYTES (BEAKER) (test tiam=869) 1+ few ELLIPTOCYTES (BEAKER) (test sdnk=971) 1+ few TEAR DROP CELLS (BEAKER) (test qsjw=498) 1+ few ARTIFACT (CELLAVISION)(BEAKER) (test qebt=6859) Present HELMET CELLS (CELLAVISION)(BEAKER) (test 1+ few ivgs=9507) PLATELET CONCENTRATION (CELLAVISION)(BEAKER) Decreased (test gzax=6876) Received comment: User comments: Slide comments:TROPONIN [id number] 23:14:00 Test Item Value Reference Range Comments TROPONIN I (BEAKER) (test dsxj=709) < ng/mL 0.00-0.03 Troponin I (TnI) levels [...] acute neurological disease, and persistent tachyarrhythmia.COMPREHENSIVE METABOLIC [id number] 23:08:00 Test Item Value Reference Range Comments TOTAL PROTEIN (BEAKER) 6.2 gm/dL 6.0-8.3 (test lcpw=788) ALBUMIN (BEAKER) (test 3.1 g/dL 3.5-5.0 erkv=6352) ALKALINE PHOSPHATASE 65 U/L 40-150 (BEAKER) (test vpxp=528) BILIRUBIN TOTAL (BEAKER) 2.9 mg/dL 0.2-1.2 (test noas=822) SODIUM (BEAKER) (test 136 meq/L 136-145 gnfj=023) POTASSIUM (BEAKER) (test 3.4 meq/L 3.5-5.1 mmok=996) CHLORIDE (BEAKER) (test 108 meq/L 98-107 rugg=864) CO2 (BEAKER) (test 19 meq/L 22-29 jhzr=805) BLOOD UREA NITROGEN 9 mg/dL 7-21 (BEAKER) (test nsuq=620) CREATININE (BEAKER) (test 0.69 mg/dL 0.57-1.25 vrjm=230) GLUCOSE RANDOM (BEAKER) 139 mg/dL 70-105 (test mhxa=215) CALCIUM (BEAKER) (test 8.3 mg/dL 8.4-10.2 hgbz=554) AST (SGOT) (BEAKER) (test 32 U/L 5-34 mhfl=287) ALT (SGPT) (BEAKER) (test 14 U/L 6-55 wbks=532) EGFR (BEAKER) (test 111 mL/min/1.73 sq ESTIMATED GFR IS NOT ojpk=1007) m ACCURATE CREATININE CLEARANCE IN PREDICTING GLOMERULAR FILTRATION RATE. ESTIMATED GFR IS NOT APPLICABLE FOR DIALYSIS PATIENTS. Specimen slightly ictericRAD, CHEST, 2 [id number] 22:59:00Reason for exam:- >pleural effusion on CT [...] MDReport Verified Date/Time: 02/10/2019 22:59:29 Reading Location: [facility] Diagnostic Imaging Reading Room - [place] [address] 1120 [id number] 22:57:00 Test Item Value Reference Range Comments PARTIAL THROMBOPLASTIN TIME (BEAKER) (test 36.6 seconds 22.5-36.0 kwxn=402) PROTHROMBIN TIME/[id number] 22:56:00 Test Item Value Reference Range Comments PROTIME (BEAKER) (test ygye=599) 18.9 seconds 11.9-14.2 INR (BEAKER) (test ckbh=761) 1.7 <=5.9 Effective 12/22/2018: PT Reference Range ChangeNew: 11.9-14.2 Previous: 11.7- 14.7RECOMMENDED COUMADIN/WARFARIN INR THERAPY RANGESSTANDARD DOSE: 2.0-3.0 Includes: PROPHYLAXIS for venous thrombosis, systemic embolization; TREATMENT for venous thrombosis and/or pulmonary embolus.HIGH RISK: Target INR is2.5-3.5 for patients wiht mechanical heart valves.POCT-GLUCOSE [id number] 21:34:00 Test Item Value Reference Range Comments POC-GLUCOSE METER (BEAKER) 170 mg/dL 70-110 TESTED AT [address] (test swws=3161) [facility] [id number] MR, ABDOMEN, [id number] 20:13:00Liver protocol based on 09/23 CT of chest shows liver massAddendum BeginsREPORT STATUS:A ADRENALS section should include: Thickening ofboth adrenal glands without discrete nodules. Signed: Geovany Srinivasan MDReport Verified Date/Time: 09/25/2017 20:13: 03 Reading Location: [address] Body Reading RoomAddendum EndsFINAL REPORT [...] MDReport Verified Date/Time: 09/25/2017 13:46:41 Reading Location: [address] Body Reading Room Electronically signedby: GEOVANY SRINIVASAN MD on 09/25/2017 08:13 PMBASI METABOLIC [id number] 14:10:00 Test Item Value Reference Range Comments SODIUM (BEAKER) (test 135 meq/L 135-148 thlb=536) POTASSIUM (BEAKER) (test 3.5 meq/L 3.5-5.5 iaea=171) CHLORIDE (BEAKER) (test 99 meq/L 98-106 pqfx=841) CO2 (BEAKER) (test 28 meq/L 20-31 efpl=863) BLOOD UREA NITROGEN 8 mg/dL 10-26 (BEAKER) (test ehwd=507) CREATININE (BEAKER) (test 0.64 mg/dL 0.50-1.20 qkdy=020) GLUCOSE RANDOM (BEAKER) 180 mg/dL 70-110 (test isgf=792) CALCIUM (BEAKER) (test 8.3 mg/dL 8.5-10.5 irwx=900) EGFR (BEAKER) (test 122 mL/min/1.73 sq m ESTIMATED GFR IS NOT aovr=0147) ACCURATE CREATININE CLEARANCE IN PREDICTING GLOMERULAR FILTRATION RATE. ESTIMATED GFR IS NOT APPLICABLE FOR DIALYSIS PATIENTS. POCT-GLUCOSE [id number] 13:03:00 Test Item Value Reference Range Comments POC-GLUCOSE METER (BEAKER) 160 mg/dL 70-110 TESTED AT [facility] [id number] [place] [address] (test yhcm=8759) [address] [place] [address] [id number] 09:47:00 Test Item Value Reference Range Comments PARTIAL THROMBOPLASTIN TIME (BEAKER) (test 42.3 seconds 23.2-36.1 lwvo=356) PROTHROMBIN TIME/[id number] 09:45:00 Test Item Value Reference Range Comments PROTIME (BEAKER) (test tnde=201) 17.6 seconds 11.8-14.4 INR (BEAKER) (test dnpp=433) 1.4 1.2-1.5 RECOMMENDED COUMADIN/WARFARIN INR THERAPY RANGESSTANDARD DOSE: 2.0 - 3.0 Includes: PROPHYLAXIS forvenous thrombosis, systemic embolization; TREATMENT for venous thrombosis and/or pulmonary embolus.HIGH RISK: Target INR is 2.5-3.5 for patients with mechanical heart valves.POCT-GLUCOSE [id number] 07:23:00 Test Item Value Reference Range Comments POC-GLUCOSE METER (BEAKER) 171 mg/dL 70-110 TESTED AT [facility] [id number] [place] [address] (test xkyn=4844) [address] [place] [id number] POCT-GLUCOSE [id number] 21:35:00 Test Item Value Reference Range Comments POC-GLUCOSE METER (BEAKER) 209 mg/dL 70-110 TESTED AT [facility] [id number] [place] [address] (test lfdr=9342) [place] [address] ALPHA FETOPROTEIN (AFP), TUMOR [id number] 18:39:00 Test Item Value Reference Range Comments ALPHA-FETOPROTEIN (BEAKER) (test perd=3482) 215.0 ng/mL <10.0 POCT-GLUCOSE [id number] 16:42:00 Test Item Value Reference Range Comments POC-GLUCOSE METER (BEAKER) 254 mg/dL 70-110 TESTED AT [facility] [address] [facility] (test muva=1661) [facility] [address] RESPIRATORY PANEL [id number] 15:20:00 Test Item Value Reference Range Comments HUMAN METAPNEUMOVIRUS (BEAKER) (test Not detected Not detected, Inconclusive mtam=3970) RHINOVIRUS (BEAKER) (test axcj=6958) Not detected Not detected, Inconclusive INFLUENZA A (BEAKER) (test Not detected Not detected, Inconclusive hmip=3093) INFLUENZA A SUBTYPE H1 (BEAKER) Not detected Not detected, Inconclusive (test ijwx=7430) INFLUENZA A SUBTYPE H3 (BEAKER) Not detected Not detected, Inconclusive (test hgzx=8520) INFLUENZA A SUBTYPE H1-2009 (BEAKER) Not detected Not detected, Inconclusive (test svir=5320) INFLUENZA B (BEAKER) (test Not detected Not detected, Inconclusive gcfm=8745) RESPIRATORY SYNCYTIAL VIRUS (BEAKER) Not detected Not detected, Inconclusive (test xmoz=6732) PARAINFLUENZA VIRUS 1 (BEAKER) (test Not detected Not detected, Inconclusive tpiz=8639) PARAINFLUENZA VIRUS 2 (BEAKER) (test Not detected Not detected, Inconclusive jkhc=8665) PARAINFLUENZA VIRUS 3 (BEAKER) (test Not detected Not detected, Inconclusive bcjg=2046) PARAINFLUENZA VIRUS 4 (BEAKER) (test Not detected Not detected, Inconclusive kxgr=7190) ADENOVIRUS (BEAKER) (test lfsm=4564) Not detected Not detected, Inconclusive CORONAVIRUS 229E (BEAKER) (test Not detected Not detected, Inconclusive pcmo=8622) CORONAVIRUS HKU1 (BEAKER) (test Not detected Not detected, Inconclusive brby=3586) CORONAVIRUS NL63 (BEAKER) (test Not detected Not detected, Inconclusive fhlc=6566) CORONAVIRUS OC43 (BEAKER) (test Not detected Not detected, Inconclusive ejdq=3253) BORDETELLA PERTUSSIS (BEAKER) (test Not detected Not detected, Inconclusive rsnb=4951) CHLAMYDOPHILA PNEUMONIAE (BEAKER) Not detected Not detected, Inconclusive (test mier=9058) MYCOPLASMA PNEUMONIAE (BEAKER) (test Not detected Not detected, Inconclusive ecxe=2025) POCT-GLUCOSE [id number] 13:03:00 Test Item Value Reference Range Comments POC-GLUCOSE METER (BEAKER) 176 mg/dL 70-110 TESTED AT [facility] [address] [facility] (test qvyj=0612) [facility] [address] POCT-GLUCOSE [id number] 07:51:00 Test Item Value Reference Range Comments POC-GLUCOSE METER (BEAKER) 172 mg/dL 70-110 TESTED AT [facility] [address] [facility] (test frnm=2130) [facility] [address] BASIC METABOLIC [id number] 07:06:00 Test Item Value Reference Range Comments SODIUM (BEAKER) (test 137 meq/L 135-148 rmcy=588) POTASSIUM (BEAKER) (test 3.4 meq/L 3.5-5.5 vsqr=958) CHLORIDE (BEAKER) (test 100 meq/L 98-106 avdn=027) CO2 (BEAKER) (test 31 meq/L 20-31 kujg=755) BLOOD UREA NITROGEN 9 mg/dL 10-26 (BEAKER) (test xgwl=607) CREATININE (BEAKER) (test 0.60 mg/dL 0.50-1.20 qwak=309) GLUCOSE RANDOM (BEAKER) 149 mg/dL 70-110 (test crqc=123) CALCIUM (BEAKER) (test 8.2 mg/dL 8.5-10.5 fxlm=882) EGFR (BEAKER) (test 131 mL/min/1.73 sq m ESTIMATED GFR IS NOT xgmr=1632) ACCURATE CREATININE CLEARANCE IN PREDICTING GLOMERULAR FILTRATION RATE. ESTIMATED GFR IS NOT APPLICABLE FOR DIALYSIS PATIENTS. CBC W/PLT COUNT & AUTO [id number] 05:59:00 Test Item Value Reference Range Comments WHITE BLOOD CELL COUNT (BEAKER) (test fytn=926) 6.6 K/ L 4.0-10.0 RED BLOOD CELL COUNT (BEAKER) (test phmz=335) 2.99 M/ L 4.20-5.80 HEMOGLOBIN (BEAKER) (test unkl=865) 8.8 GM/DL 13.0-16.8 HEMATOCRIT (BEAKER) (test qsrr=176) 28.3 % 40.0-50.0 MEAN CORPUSCULAR VOLUME (BEAKER) (test kwej=757) 94.6 fL 82.0-98.0 MEAN CORPUSCULAR HEMOGLOBIN (BEAKER) (test 29.5 pg 27.0-33.0 fdyt=591) MEAN CORPUSCULAR HEMOGLOBIN CONC (BEAKER) (test 31.2 GM/DL 32.0-36.0 hmyg=502) RED CELL DISTRIBUTION WIDTH (BEAKER) (test 16.1 % 12.0-15.0 kctx=817) PLATELET COUNT (BEAKER) (test jnlb=452) 119 K/CU MM 150-430 MEAN PLATELET VOLUME (BEAKER) (test rcpx=842) 8.3 fL 6.5-10.5 NUCLEATED RED BLOOD CELLS (BEAKER) (test 0 /100 WBC 0-0 mkzm=330) NEUTROPHILS RELATIVE PERCENT (BEAKER) (test 61 % fwpj=608) LYMPHOCYTES RELATIVE PERCENT (BEAKER) (test 22 % sspf=408) MONOCYTES RELATIVE PERCENT (BEAKER) (test 10 % cikm=032) EOSINOPHILS RELATIVE PERCENT (BEAKER) (test 7 % vyiq=288) BASOPHILS RELATIVE PERCENT (BEAKER) (test 1 % mihu=797) NEUTROPHILS ABSOLUTE COUNT (BEAKER) (test 4.10 K/ L 1.80-8.00 rgtj=566) LYMPHOCYTES ABSOLUTE COUNT (BEAKER) (test 1.40 K/ L 1.48-4.50 guax=220) MONOCYTES ABSOLUTE COUNT (BEAKER) (test 0.60 K/ L 0.00-1.30 vujt=860) EOSINOPHILS ABSOLUTE COUNT (BEAKER) (test 0.50 K/ L 0.00-0.50 dopr=926) BASOPHILS ABSOLUTE COUNT (BEAKER) (test 0.00 K/ L 0.00-0.20 eqcs=241) LEGIONELLA ANTIGEN, [id number] 22:05:00 Test Item Value Reference Range Comments L. PNEUMOPHILA SEROGP 1 Negative - see Negative for L. UR AG (BEAKER) (test comment pneumophila serogroup 1 skwl=9426) antigen, suggesting no recent or current infection with this serogroup. Legionellosis cannot be ruled out since other serogroups and species may cause disease. STREP PNEUMONIAE [id number] 22:05:00 Test Item Value Reference Range Comments STREP PNEUMONIAE ANTIGEN Presumptive negative for Presumptive negative for (BEAKER) (test pneumococcal pneumonia - pneumococcal pneumonia - oexo=2841) see comment see commen Presumptive negative for pneumococcal pneumonia, suggesting no current or recent pneumococcal infection. Infection due to S. pneumoniae cannot be ruled out since the antigen present in the sample may be below the detection limit of the test.POCT-GLUCOSE [id number] 21:16:00 Test Item Value Reference Range Comments POC-GLUCOSE METER (BEAKER) 127 mg/dL 70-110 TESTED AT [facility] [address] [facility] (test xmxs=9543) [facility] [address] POCT-GLUCOSE [id number] 18:08:00 Test Item Value Reference Range Comments POC-GLUCOSE METER (BEAKER) 242 mg/dL 70-110 TESTED AT [facility] [address] [facility] (test qiob=8799) [facility] [address] CT, CHEST, WITHOUT [id number] 15:33:00FINAL REPORT CT of the Chest dated [...] Verified Date/Time: 09/23/2017 15:33: 18 Reading Location: [facility] B1 C013Y CT Body Reading Room TISSUE [id number] 14:19: 00Surgical Pathology Report Case: [id number] Authorizing Provider: Narayan Reyes MD Collected : 09/20/2017 0908 Ordering Location: [facility] - Perioperative Received: 09/21/2017 0851 Services Pathologist: Lencho De La Garza MD Specimen: Polyp, Colon - Right/Ascending COLON, RIGHT/ASCENDING POLYP, COLONOSCOPY- POLYPOID COLONIC MUCOSA CONSISTENT WITH MUCOSAL TAG- NO ADENOMATOUS CHANGE OR MALIGNANCY IDENTIFIED Signing Pathologist Direct Phone Line: [phone] signed by Lencho De La Garza MD on 09/23/2017 at 2:19 [id number] and anemia; procedure is colonoscopy Polyp right/ascendingThe instrument, paperwork, container, and cassette all read [id number].Received in formalin labeled with the patient's name (Khadijah) and medical record number.Specimen A: Receivedin formalin labeled as "right/ascending polyp" is one tissue 3 x 3 x 1 mm, all in cassette A1. JF/ewThe following special studies were performed on this case and the interpretation is incorporated in the diagnostic report above:IDCV:[id number] 12:31:00 Test Item Value Reference Range Comments PROCALCITONIN (BEAKER) (test xddd=3384) 0.13 ng/mL <0.05 SEPSIS RISK (ng/mL)Low: 0.05-0.50Intermediate: 0.51-2.00High: & gt;=2.01POCT-GLUCOSE [id number] 11:53:00 Test Item Value Reference Range Comments POC-GLUCOSE METER (BEAKER) 227 mg/dL 70-110 TESTED AT [facility] [address] [facility] (test ncpo=6920) [facility] [address] POCT-GLUCOSE [id number] 08:09:00 Test Item Value Reference Range Comments POC-GLUCOSE METER (BEAKER) 167 mg/dL 70-110 TESTED AT [facility] [address] [facility] (test rfqz=7119) [facility] [address] [id number] 08:05:00 Test Item Value Reference Range Comments MAGNESIUM (BEAKER) (test spkq=310) 1.5 mg/dL 1.5-3.0 COMPREHENSIVE METABOLIC [id number] 06:54:00 Test Item Value Reference Range Comments TOTAL PROTEIN (BEAKER) 6.0 gm/dL 6.0-8.5 (test jfaw=714) ALBUMIN (BEAKER) (test 2.6 g/dL 3.5-5.0 mfnj=8500) ALKALINE PHOSPHATASE 96 U/L 30-115 (BEAKER) (test umvr=803) BILIRUBIN TOTAL (BEAKER) 1.4 mg/dL 0.1-1.3 (test vtmc=984) SODIUM (BEAKER) (test 138 meq/L 135-148 jzae=074) POTASSIUM (BEAKER) (test 3.0 meq/L 3.5-5.5 ajhd=403) CHLORIDE (BEAKER) (test 101 meq/L 98-106 jzmh=476) CO2 (BEAKER) (test 30 meq/L 20-31 bqdh=823) BLOOD UREA NITROGEN 10 mg/dL 10-26 (BEAKER) (test oori=876) CREATININE (BEAKER) (test 0.61 mg/dL 0.50-1.20 xgpb=628) GLUCOSE RANDOM (BEAKER) 142 mg/dL 70-110 (test qxsu=153) CALCIUM (BEAKER) (test 8.3 mg/dL 8.5-10.5 oijj=966) AST (SGOT) (BEAKER) (test 52 U/L 5-40 eqfk=485) ALT (SGPT) (BEAKER) (test 27 U/L 6-50 nazg=301) EGFR (BEAKER) (test 129 mL/min/1.73 sq ESTIMATED GFR IS NOT hlwe=0837) m ACCURATE CREATININE CLEARANCE IN PREDICTING GLOMERULAR FILTRATION RATE. ESTIMATED GFR IS NOT APPLICABLE FOR DIALYSIS PATIENTS. CBC W/PLT COUNT & AUTO [id number] 06:24:00 Test Item Value Reference Range Comments WHITE BLOOD CELL COUNT (BEAKER) (test awkt=502) 6.4 K/ L 4.0-10.0 RED BLOOD CELL COUNT (BEAKER) (test zcnh=960) 2.97 M/ L 4.20-5.80 HEMOGLOBIN (BEAKER) (test dulj=987) 9.0 GM/DL 13.0-16.8 HEMATOCRIT (BEAKER) (test nyir=498) 28.1 % 40.0-50.0 MEAN CORPUSCULAR VOLUME (BEAKER) (test hoql=029) 94.6 fL 82.0-98.0 MEAN CORPUSCULAR HEMOGLOBIN (BEAKER) (test 30.3 pg 27.0-33.0 mdcy=436) MEAN CORPUSCULAR HEMOGLOBIN CONC (BEAKER) (test 32.0 GM/DL 32.0-36.0 oxti=088) RED CELL DISTRIBUTION WIDTH (BEAKER) (test 17.2 % 12.0-15.0 afyj=106) PLATELET COUNT (BEAKER) (test klta=685) 135 K/CU MM 150-430 MEAN PLATELET VOLUME (BEAKER) (test ohqx=259) 8.1 fL 6.5-10.5 NUCLEATED RED BLOOD CELLS (BEAKER) (test 0 /100 WBC 0-0 yytj=613) NEUTROPHILS RELATIVE PERCENT (BEAKER) (test 53 % ytby=745) LYMPHOCYTES RELATIVE PERCENT (BEAKER) (test 23 % npat=525) MONOCYTES RELATIVE PERCENT (BEAKER) (test 17 % knnh=628) EOSINOPHILS RELATIVE PERCENT (BEAKER) (test 6 % rzym=406) BASOPHILS RELATIVE PERCENT (BEAKER) (test 1 % pwgu=530) NEUTROPHILS ABSOLUTE COUNT (BEAKER) (test 3.40 K/ L 1.80-8.00 vzbi=036) LYMPHOCYTES ABSOLUTE COUNT (BEAKER) (test 1.50 K/ L 1.48-4.50 gyre=029) MONOCYTES ABSOLUTE COUNT (BEAKER) (test 1.10 K/ L 0.00-1.30 wjat=818) EOSINOPHILS ABSOLUTE COUNT (BEAKER) (test 0.40 K/ L 0.00-0.50 sute=113) BASOPHILS ABSOLUTE COUNT (BEAKER) (test 0.00 K/ L 0.00-0.20 ryhj=692) POCT-GLUCOSE [id number] 00:35:00 Test Item Value Reference Range Comments POC-GLUCOSE METER (BEAKER) 171 mg/dL 70-110 TESTED AT [facility] [address] [facility] (test bhkm=0768) [place] [address] [id number] 18:12:00Medical Cytology Report Case: [id number] Authorizing Provider: Tamanna Herrera MD Collected: 09/18/2017 1735 Ordering Location: [address] SURGICAL Received: 09/21/2017 1009 Pathologist: Miracle Kaiser MD Specimen: Pleural, Right RIGHT PLEURAL FLUID, CYTOLOGIC PREPARATION:NO MALIGNANT CELLS IDENTIFIED. Signing Pathologist Direct Phone Line: [phone] signed by Miracle Kaiser MD on 2017 at 6:12 [id number] bleedRight pleural cavityCollected: 09/18/20171734Received: 09/21/2017 110633 ml yellow fluid received fresh; 4 cytospinsAll cytologic preparations have been microscopically examined. The pertinent microscopic examination findings have been incorporated into the diagnosis rendered above.[facility]. [facility], Department of Pathology, [address] [place] [address], [place]. [facility] Department of Pathology, [address] [place] [address], [place]. [facility] Department of Pathology, [address] [place] [address], Tel TISSUE [id number] 16:29:00Surgical Pathology Report Case: [id number] Authorizing Provider: Narayan Reyes MD Collected: 09/19/2017 1138 Ordering Location: [address] MEDICAL SURGICAL Received: 2017 0828 Pathologist: Lencho De La Garza MD Specimen: Duodenum, bx DUODENUM, BIOPSY: - SUPERFICIAL FRAGMENTS OF UNREMARKABLE DUODENAL MUCOSA - NO ACTIVE INFLAMMATION, GRANULOMAS, FOAMY HISTIOCYTES, PARASITES, OR INCREASED INTRAEPITHELIAL LYMPHOCYTES IDENTIFIED - NO ADENOMATOUS CHANGE, DYSPLASIA OR MALIGNANCY IDENTIFIED Signing Pathologist Direct Phone Line: [phone] signed by Lencho De La Garza MD on 09/22/2017 at 4:29 [id number]; procedure upper endoscopy Duodenum The instrument, paperwork, container, and cassette all read [id number].Received in formalin labeled with the patient's name (Khadijah) and medical record number.Specimen A: Received in formalin labeled as "duodenum" is one tissue 3 x 3 x 1 mm with a few flecks of debris, all in cassette A1. JF/ewPOCT-GLUCOSE [id number] 16:14:00 Test Item Value Reference Range Comments POC-GLUCOSE METER (BEAKER) 221 mg/dL 70-110 TESTED AT [facility] [address] [facility] (test xdwz=3080) [facility] [address] [id number] 14:45:00 Test Item Value Reference Range Comments FERRITIN (BEAKER) (test dylf=805) 68 ng/mL 22-322 RAD, CHEST, 1 VIEW, NON [id number] 14:35:00Reason for exam:->pulmonary edemaShould this be performed [...] Verified Date/ Time: 09/22/2017 14:35:18 Reading Location: [facility] Diagnostic Imaging Reading Room - [facility] 1.310.12 Electronically signed by: TRAVIS GOMEZ M.D. on 02:35 PMIRON, TIBC, % SAT. (WITHOUT FERRITIN)2017-09-22 14:30:00 Test Item Value Reference Range Comments IRON (BEAKER) (test ebjw=018) 34 ug/dL 35-175 TOTAL IRON BINDING CAPACITY (BEAKER) (test 269 ug/dL 250-550 tcpl=363) IRON % SATURATION (2) (BEAKER) (test ychp=5959) 13 % 20-55 POCT-GLUCOSE [id number] 12:14:00 Test Item Value Reference Range Comments POC-GLUCOSE METER (BEAKER) 233 mg/dL 70-110 TESTED AT [facility] [address] [facility] (test lnob=3745) [facility] [address] U/S, ABDOMINAL, [id number] 11:12:00Reason for exam:->ascitesFINAL REPORT Technique: Limited abdominal ultrasound dated 09/22. HISTORY: Ascites check. COMPARISON: None IMPRESSION:Small amount of abdominal ascites is seen in all four quadrants. Nodular liver contour is compatible with cirrhosis. Signed: Jada Maddox MDReport Verified Date/ Time: 09/22/2017 11:12:47 Reading Location: [facility] Radiology Reading Room [id number] 11:06:00 Test Item Value Reference Range Comments AMMONIA (BEAKER) (test xrpn=040) 66 mol/L 12-72 BLOOD GAS, [id number] 17:43:00 Test Item Value Reference Range Comments PH ARTERIAL (BEAKER) (test oawj=167) 7.52 7.35-7.45 PCO2 ARTERIAL (BEAKER) (test oviw=576) 41 mmHg 35-45 PO2 ARTERIAL (BEAKER) (test qtkn=691) 60 mmHg 80-90 O2 SATURATION ARTERIAL (BEAKER) (test tmta=234) 93.2 % 96.0-97.0 HCO3 ARTERIAL (BEAKER) (test tmer=487) 33 mmol/L 21-29 BASE EXCESS ARTERIAL (BEAKER) (test dnyc=257) 9.1 mmol/L -2.0-3.0 PATIENT TEMPERATURE (BEAKER) (test zjfl=8148) 37.0 C FIO2 (BEAKER) (test hthn=0397) 45.0 % U/S, [id number] 16:39:00Reason for exam:->THORACENTESIS RIGHT SIDEFINAL REPORT EXAM: Limited ultrasound of right chest CLINICAL HISTORY: Pleural effusion FINDINGS: Limited evaluation of the right chest demonstrates trace free fluid in the rightpleural space. Thoracentesis was not performed. Signed: Cris Malhotra MDReport Verified Date/Time: 09/21/2017 16:39 :54 Reading Location: [facility] Radiology Reading Room POCT-GLUCOSE [id number] 16:35: 00 Test Item Value Reference Range Comments POC-GLUCOSE METER (BEAKER) 138 mg/dL 70-110 TESTED AT [facility] [address] [facility] (test clua=8807) [facility] [address] POCT-GLUCOSE [id number] 11:59:00 Test Item Value Reference Range Comments POC-GLUCOSE METER (BEAKER) 261 mg/dL 70-110 TESTED AT [facility] [address] [facility] (test uxnl=3650) [facility] [address] BODY FLUID CELL COUNT WITH [id number] 08:40:00 Test Item Value Reference Range Comments APPEARANCE FLUID (BEAKER) (test Slightly Hazy Clear mbtc=807) COLOR FLUID (BEAKER) (test Yellow Colorless, Straw wakq=157) RBC FLUID (BEAKER) (test 320 /uL <=1 uxok=520) ADJUSTED WBC FLUID (BEAKER) 355 /cu mm <=5 (test obtq=6680) LINING CELLS (BEAKER) (test 53 /cu mm <=1 oprc=3062) NEUTROPHILS FLUID (BEAKER) 26 % (test jfyn=4272) LYMPHS FLUID (BEAKER) (test 43 % mpzx=247) MONO/MACROPHAGE FLUID (BEAKER) 31 % (test vuou=377) EOSINOPHILS FLUID (BEAKER) 0 % (test lzvq=338) BASO FLUID (BEAKER) (test 0 % bdms=342) INTERPRETATION-210 (BEAKER) No malignant cells (test mftg=1371) identified. HSDW-DZYTPVSSKIB-390 (BEAKER) Miracle Carmen Kaiser (test enkj=7082) CONTAINER BODY FLUID (BEAKER) EDTA Tube (test eolf=9417) BODY FLUID CULTURE + GRAM [id number] 08:19:00 Test Item Value Reference Range Comments CULTURE (BEAKER) (test nuba=6241) No growth GRAM STAIN RESULT (BEAKER) (test 3+ White blood cells seen kpht=5876) GRAM STAIN RESULT (BEAKER) (test No organisms seen fepe=82464) POCT-GLUCOSE [id number] 07:38:00 Test Item Value Reference Range Comments POC-GLUCOSE METER (BEAKER) 157 mg/dL 70-110 TESTED AT [facility] [address] [facility] (test ziqu=1811) [facility] [address] BASIC METABOLIC [id number] 06:50:00 Test Item Value Reference Range Comments SODIUM (BEAKER) (test 140 meq/L 135-148 edpz=314) POTASSIUM (BEAKER) (test 3.2 meq/L 3.5-5.5 qgrv=399) CHLORIDE (BEAKER) (test 102 meq/L 98-106 mutl=945) CO2 (BEAKER) (test 28 meq/L 20-31 oybh=351) BLOOD UREA NITROGEN 11 mg/dL 10-26 (BEAKER) (test kinm=924) CREATININE (BEAKER) (test 0.61 mg/dL 0.50-1.20 ozru=420) GLUCOSE RANDOM (BEAKER) 139 mg/dL 70-110 (test oefo=440) CALCIUM (BEAKER) (test 7.8 mg/dL 8.5-10.5 brjf=301) EGFR (BEAKER) (test 129 mL/min/1.73 sq m ESTIMATED GFR IS NOT xnvg=6532) ACCURATE CREATININE CLEARANCE IN PREDICTING GLOMERULAR FILTRATION RATE. ESTIMATED GFR IS NOT APPLICABLE FOR DIALYSIS PATIENTS. HEPATIC FUNCTION [id number] 06:50:00 Test Item Value Reference Range Comments TOTAL PROTEIN (BEAKER) (test ewsv=832) 5.6 gm/dL 6.0-8.5 ALBUMIN (BEAKER) (test rkqs=6934) 2.4 g/dL 3.5-5.0 BILIRUBIN TOTAL (BEAKER) (test geca=634) 1.4 mg/dL 0.1-1.3 BILIRUBIN DIRECT (BEAKER) (test vrbl=922) 0.7 mg/dL 0.0-0.5 ALKALINE PHOSPHATASE (BEAKER) (test beec=962) 77 U/L 30-115 AST (SGOT) (BEAKER) (test njwz=900) 54 U/L 5-40 ALT (SGPT) (BEAKER) (test hzot=778) 24 U/L 6-50 CBC W/PLT COUNT & AUTO [id number] 06:37:00 Test Item Value Reference Range Comments WHITE BLOOD CELL COUNT (BEAKER) (test zkti=941) 6.5 K/ L 4.0-10.0 RED BLOOD CELL COUNT (BEAKER) (test zffj=748) 2.69 M/ L 4.20-5.80 HEMOGLOBIN (BEAKER) (test ajft=398) 8.2 GM/DL 13.0-16.8 HEMATOCRIT (BEAKER) (test niec=569) 25.6 % 40.0-50.0 MEAN CORPUSCULAR VOLUME (BEAKER) (test gfzd=680) 95.4 fL 82.0-98.0 MEAN CORPUSCULAR HEMOGLOBIN (BEAKER) (test 30.6 pg 27.0-33.0 rzmg=939) MEAN CORPUSCULAR HEMOGLOBIN CONC (BEAKER) (test 32.1 GM/DL 32.0-36.0 wthy=499) RED CELL DISTRIBUTION WIDTH (BEAKER) (test 16.2 % 12.0-15.0 itzf=875) PLATELET COUNT (BEAKER) (test wcab=851) 124 K/CU MM 150-430 MEAN PLATELET VOLUME (BEAKER) (test ivou=842) 8.2 fL 6.5-10.5 NUCLEATED RED BLOOD CELLS (BEAKER) (test 0 /100 WBC 0-0 tluq=316) NEUTROPHILS RELATIVE PERCENT (BEAKER) (test 61 % keli=832) LYMPHOCYTES RELATIVE PERCENT (BEAKER) (test 21 % eglx=440) MONOCYTES RELATIVE PERCENT (BEAKER) (test 14 % ksen=371) EOSINOPHILS RELATIVE PERCENT (BEAKER) (test 3 % tldh=346) BASOPHILS RELATIVE PERCENT (BEAKER) (test 0 % jbro=165) NEUTROPHILS ABSOLUTE COUNT (BEAKER) (test 4.00 K/ L 1.80-8.00 yxbp=851) LYMPHOCYTES ABSOLUTE COUNT (BEAKER) (test 1.40 K/ L 1.48-4.50 buvs=931) MONOCYTES ABSOLUTE COUNT (BEAKER) (test 0.90 K/ L 0.00-1.30 cjna=149) EOSINOPHILS ABSOLUTE COUNT (BEAKER) (test 0.20 K/ L 0.00-0.50 natg=395) BASOPHILS ABSOLUTE COUNT (BEAKER) (test 0.00 K/ L 0.00-0.20 kqth=357) HEMOGLOBIN AND [id number] 06:36:00 Test Item Value Reference Range Comments HEMOGLOBIN (BEAKER) (test vnbb=038) 8.2 GM/DL 13.0-16.8 HEMATOCRIT (BEAKER) (test uens=074) 25.6 % 40.0-50.0 RAD, CHEST, 1 VIEW, NON [id number] 03:55:00Reason for exam:->sob, h/o pleural effShould this [...] MDReport Verified Date/Time: 09/21/2017 03:55:11 Reading Location: [address] Body Reading Room HEPATITIS PANEL, [id number] 18:08:00 Test Item Value Reference Range Comments HEPATITIS A IGM ANTIBODY (BEAKER) (test Nonreactive Nonreactive zqka=317) HEPATITIS B CORE IGM ANTIBODY (BEAKER) (test Nonreactive Nonreactive pzev=904) HEPATITIS C ANTIBODY (BEAKER) (test djpu=860) Nonreactive Nonreactive HEPATITIS B SURFACE ANTIGEN (2) (BEAKER) (test Nonreactive Nonreactive bkec=0258) HEMOGLOBIN AND [id number] 13:04:00 Test Item Value Reference Range Comments HEMOGLOBIN (BEAKER) (test ivhh=432) 8.5 GM/DL 13.0-16.8 HEMATOCRIT (BEAKER) (test yzyu=962) 27.6 % 40.0-50.0 POCT-GLUCOSE [id number] 08:36:00 Test Item Value Reference Range Comments POC-GLUCOSE METER (BEAKER) 173 mg/dL 70-110 TESTED AT [facility] [address] [facility] (test yvpq=5225) [facility] [address] BASIC METABOLIC [id number] 06:05:00 Test Item Value Reference Range Comments SODIUM (BEAKER) (test 140 meq/L 135-148 cseq=086) POTASSIUM (BEAKER) (test 3.3 meq/L 3.5-5.5 zwsf=116) CHLORIDE (BEAKER) (test 102 meq/L 98-106 iiip=057) CO2 (BEAKER) (test 28 meq/L 20-31 dkro=732) BLOOD UREA NITROGEN 20 mg/dL 10-26 (BEAKER) (test xvpe=231) CREATININE (BEAKER) (test 0.74 mg/dL 0.50-1.20 shin=444) GLUCOSE RANDOM (BEAKER) 177 mg/dL 70-110 (test wswb=712) CALCIUM (BEAKER) (test 8.0 mg/dL 8.5-10.5 vaxd=307) EGFR (BEAKER) (test 103 mL/min/1.73 sq m ESTIMATED GFR IS NOT dobb=6382) ACCURATE CREATININE CLEARANCE IN PREDICTING GLOMERULAR FILTRATION RATE. ESTIMATED GFR IS NOT APPLICABLE FOR DIALYSIS PATIENTS. HEPATIC FUNCTION [id number] 06:05:00 Test Item Value Reference Range Comments TOTAL PROTEIN (BEAKER) (test resk=946) 6.0 gm/dL 6.0-8.5 ALBUMIN (BEAKER) (test floc=9397) 2.6 g/dL 3.5-5.0 BILIRUBIN TOTAL (BEAKER) (test snds=631) 1.6 mg/dL 0.1-1.3 BILIRUBIN DIRECT (BEAKER) (test vsfs=882) 0.8 mg/dL 0.0-0.5 ALKALINE PHOSPHATASE (BEAKER) (test sjzl=375) 82 U/L 30-115 AST (SGOT) (BEAKER) (test ygql=199) 66 U/L 5-40 ALT (SGPT) (BEAKER) (test qcfa=395) 28 U/L 6-50 CBC W/PLT COUNT & AUTO [id number] 05:38:00 Test Item Value Reference Range Comments WHITE BLOOD CELL COUNT (BEAKER) (test mlso=140) 12.1 K/ L 4.0-10.0 RED BLOOD CELL COUNT (BEAKER) (test qksf=120) 2.56 M/ L 4.20-5.80 HEMOGLOBIN (BEAKER) (test bhhk=775) 8.0 GM/DL 13.0-16.8 HEMATOCRIT (BEAKER) (test icuu=629) 24.6 % 40.0-50.0 MEAN CORPUSCULAR VOLUME (BEAKER) (test fnbk=666) 96.0 fL 82.0-98.0 MEAN CORPUSCULAR HEMOGLOBIN (BEAKER) (test 31.2 pg 27.0-33.0 jszh=612) MEAN CORPUSCULAR HEMOGLOBIN CONC (BEAKER) (test 32.5 GM/DL 32.0-36.0 wrlf=862) RED CELL DISTRIBUTION WIDTH (BEAKER) (test 16.3 % 12.0-15.0 cgyw=369) PLATELET COUNT (BEAKER) (test xtxw=521) 148 K/CU MM 150-430 MEAN PLATELET VOLUME (BEAKER) (test mzok=249) 8.2 fL 6.5-10.5 NUCLEATED RED BLOOD CELLS (BEAKER) (test 0 /100 WBC 0-0 atai=197) NEUTROPHILS RELATIVE PERCENT (BEAKER) (test 76 % awsd=786) LYMPHOCYTES RELATIVE PERCENT (BEAKER) (test 10 % wjoe=810) MONOCYTES RELATIVE PERCENT (BEAKER) (test 13 % ckmx=469) EOSINOPHILS RELATIVE PERCENT (BEAKER) (test 0 % xmwz=918) BASOPHILS RELATIVE PERCENT (BEAKER) (test 0 % lwgr=057) NEUTROPHILS ABSOLUTE COUNT (BEAKER) (test 9.20 K/ L 1.80-8.00 hxjj=880) LYMPHOCYTES ABSOLUTE COUNT (BEAKER) (test 1.20 K/ L 1.48-4.50 vxtx=692) MONOCYTES ABSOLUTE COUNT (BEAKER) (test 1.60 K/ L 0.00-1.30 kjxa=181) EOSINOPHILS ABSOLUTE COUNT (BEAKER) (test 0.00 K/ L 0.00-0.50 uwsq=369) BASOPHILS ABSOLUTE COUNT (BEAKER) (test 0.00 K/ L 0.00-0.20 mlyw=754) POCT-GLUCOSE [id number] 15:55:00 Test Item Value Reference Range Comments POC-GLUCOSE METER (BEAKER) 277 mg/dL 70-110 TESTED AT [facility] [id number] [facility] (test rjxr=9085) [facility] [address] [id number] 15:43:00 Test Item Value Reference Range Comments MAGNESIUM (BEAKER) (test kqjc=124) 1.9 mg/dL 1.5-3.0 BASIC METABOLIC [id number] 15:43:00 Test Item Value Reference Range Comments SODIUM (BEAKER) (test 136 meq/L 135-148 yylz=850) POTASSIUM (BEAKER) (test 3.8 meq/L 3.5-5.5 yfpn=287) CHLORIDE (BEAKER) (test 101 meq/L 98-106 mbal=434) CO2 (BEAKER) (test 24 meq/L 20-31 qjfq=770) BLOOD UREA NITROGEN 23 mg/dL 10-26 (BEAKER) (test cghb=169) CREATININE (BEAKER) (test 0.88 mg/dL 0.50-1.20 nqyr=550) GLUCOSE RANDOM (BEAKER) 284 mg/dL 70-110 (test uspa=026) CALCIUM (BEAKER) (test 8.1 mg/dL 8.5-10.5 uydc=186) EGFR (BEAKER) (test 84 mL/min/1.73 sq m ESTIMATED GFR IS NOT dxmi=9003) ACCURATE CREATININE CLEARANCE IN PREDICTING GLOMERULAR FILTRATION RATE. ESTIMATED GFR IS NOT APPLICABLE FOR DIALYSIS PATIENTS. HEMOGLOBIN AND [id number] 15:37:00 Test Item Value Reference Range Comments HEMOGLOBIN (BEAKER) (test sehy=895) 8.2 GM/DL 13.0-16.8 HEMATOCRIT (BEAKER) (test xlzf=697) 25.9 % 40.0-50.0 POCT-GLUCOSE [id number] 10:38:00 Test Item Value Reference Range Comments POC-GLUCOSE METER (BEAKER) 224 mg/dL 70-110 TESTED AT [address] (test jceg=2209) [facility] [address] HEMOGLOBIN [id number] 09:10:00 Test Item Value Reference Range Comments HEMOGLOBIN A1C (BEAKER) (test uqvk=468) 5.5 % 4.3-6.1 TROPONIN [id number] 06:50:00 Test Item Value Reference Range Comments TROPONIN I (BEAKER) (test bxyg=941) 0.49 ng/mL 0.00-0.15 Troponin I (TnI) levels [...] and persistent tachyarrhythmia.RAD, CHEST, 1 VIEW, NON [id number] 06:49:00Reason for exam:->dyspneaShould this be performed at [...] MDReport Verified Date/Time: 09/19/2017 06:49:48 Reading Location: [place] [id number] CT Body Reading Room HEPATIC FUNCTION [id number] 06:40:00 Test Item Value Reference Range Comments TOTAL PROTEIN (BEAKER) (test fieo=058) 6.6 gm/dL 6.0-8.5 ALBUMIN (BEAKER) (test vwie=4343) 2.9 g/dL 3.5-5.0 BILIRUBIN TOTAL (BEAKER) (test ytwt=906) 1.8 mg/dL 0.1-1.3 BILIRUBIN DIRECT (BEAKER) (test yudi=811) 1.0 mg/dL 0.0-0.5 ALKALINE PHOSPHATASE (BEAKER) (test zgny=725) 94 U/L 30-115 AST (SGOT) (BEAKER) (test jzvh=248) 70 U/L 5-40 ALT (SGPT) (BEAKER) (test pqwv=038) 30 U/L 6-50 LIPID [id number] 06:39:00 Test Item Value Reference Range Comments TRIGLYCERIDES (BEAKER) (test apba=255) 91 mg/dL CHOLESTEROL (BEAKER) (test vrmd=334) 152 mg/dL HDL CHOLESTEROL (BEAKER) (test ivph=418) 16 mg/dL LDL CHOLESTEROL CALCULATED (BEAKER) (test 118 mg/dL gxhq=607) Triglyceride Reference Range: Low Risk <150 Borderline 150- 199 High Risk 200-499 Very High Risk >=500Cholesterol Reference Range: Low Risk <200 Borderline 200-239 High Risk > 240HDL Cholesterol Reference Range: Low Risk >=60 High Risk <40LDL Cholesterol Reference Range: Optimal <100 Near Optimal 100-129 Borderline 130-159 High 160-189 Very High >=190BASI METABOLIC [id number] 06:39:00 Test Item Value Reference Range Comments SODIUM (BEAKER) (test 139 meq/L 135-148 xopz=552) POTASSIUM (BEAKER) (test 4.1 meq/L 3.5-5.5 ftqm=691) CHLORIDE (BEAKER) (test 104 meq/L 98-106 jiow=975) CO2 (BEAKER) (test 24 meq/L 20-31 zyjd=621) BLOOD UREA NITROGEN 21 mg/dL 10-26 (BEAKER) (test pmii=095) CREATININE (BEAKER) (test 0.77 mg/dL 0.50-1.20 sjbj=267) GLUCOSE RANDOM (BEAKER) 206 mg/dL 70-110 (test kblx=887) CALCIUM (BEAKER) (test 8.2 mg/dL 8.5-10.5 hizc=762) EGFR (BEAKER) (test 98 mL/min/1.73 sq m ESTIMATED GFR IS NOT mhgj=0551) ACCURATE CREATININE CLEARANCE IN PREDICTING GLOMERULAR FILTRATION RATE. ESTIMATED GFR IS NOT APPLICABLE FOR DIALYSIS PATIENTS. CBC W/PLT COUNT & AUTO [id number] 06:33:00 Test Item Value Reference Range Comments WHITE BLOOD CELL COUNT 12.3 K/ L 4.0-10.0 (BEAKER) (test vwoo=702) RED BLOOD CELL COUNT (BEAKER) 2.93 M/ L 4.20-5.80 (test odwk=760) HEMOGLOBIN (BEAKER) (test 8.6 GM/DL 13.0-16.8 nlxs=336) HEMATOCRIT (BEAKER) (test 28.6 % 40.0-50.0 evni=506) MEAN CORPUSCULAR VOLUME 97.6 fL 82.0-98.0 (BEAKER) (test ypqf=698) MEAN CORPUSCULAR HEMOGLOBIN 29.4 pg 27.0-33.0 (BEAKER) (test dxvf=002) MEAN CORPUSCULAR HEMOGLOBIN 30.1 GM/DL 32.0-36.0 CONC (BEAKER) (test pwqh=760) RED CELL DISTRIBUTION WIDTH 16.0 % 12.0-15.0 (BEAKER) (test hurh=778) PLATELET COUNT (BEAKER) (test 157 K/CU MM 150-430 Discordant result compared vhwq=708) to previous result. Clinical correlation required. MEAN PLATELET VOLUME (BEAKER) 8.8 fL 6.5-10.5 (test lkmk=002) NUCLEATED RED BLOOD CELLS 0 /100 WBC 0-0 (BEAKER) (test jbsu=473) NEUTROPHILS RELATIVE PERCENT 84 % (BEAKER) (test khbc=527) LYMPHOCYTES RELATIVE PERCENT 7 % (BEAKER) (test jela=372) MONOCYTES RELATIVE PERCENT 9 % (BEAKER) (test thcg=887) EOSINOPHILS RELATIVE PERCENT 0 % (BEAKER) (test orjn=607) BASOPHILS RELATIVE PERCENT 0 % (BEAKER) (test ikor=836) NEUTROPHILS ABSOLUTE COUNT 10.30 K/ L 1.80-8.00 (BEAKER) (test qlen=660) LYMPHOCYTES ABSOLUTE COUNT 0.80 K/ L 1.48-4.50 (BEAKER) (test nfcf=025) MONOCYTES ABSOLUTE COUNT 1.10 K/ L 0.00-1.30 (BEAKER) (test luta=177) EOSINOPHILS ABSOLUTE COUNT 0.00 K/ L 0.00-0.50 (BEAKER) (test aqgo=514) BASOPHILS ABSOLUTE COUNT 0.00 K/ L 0.00-0.20 (BEAKER) (test mgmg=677) PROTHROMBIN [id number] 06:30:00 Test Item Value Reference Range Comments PROTIME (BEAKER) (test hzvb=955) 21.1 seconds 11.8-14.4 INR (BEAKER) (test irgg=001) 1.8 1.2-1.5 RECOMMENDED COUMADIN/WARFARIN INR THERAPY RANGESSTANDARD DOSE: 2.0 - 3.0 Includes: PROPHYLAXIS forvenous thrombosis, systemic embolization; TREATMENT for venous thrombosis and/or pulmonary embolus.HIGH RISK: Target INR is 2.5-3.5 for patients with mechanical heart valves.B-TYPE NATRIURETIC FACTOR (BNP)2017-08 06:06:00 Test Item Value Reference Range Comments B-TYPE NATRIURETIC PEPTIDE (BEAKER) (test 726 pg/mL 0-100 uycq=498) TROPONIN [id number] 02:21:00 Test Item Value Reference Range Comments TROPONIN I (BEAKER) (test ktam=085) 0.61 ng/mL 0.00-0.15 Troponin I (TnI) levels [...] acute neurological disease, and persistent tachyarrhythmia.HEMOGLOBIN AND [id number] 01: 53:00 Test Item Value Reference Range Comments HEMOGLOBIN (BEAKER) (test ceit=169) 8.2 GM/DL 13.0-16.8 HEMATOCRIT (BEAKER) (test ljmm=848) 25.7 % 40.0-50.0 TYPE AND SCREEN, [id number] 19:59:00 Test Item Value Reference Range Comments ABO/RH AUTOMATED (BEAKER) (test zkei=2644) O POSITIVE AB SCREEN (BEAKER) (test sdpr=343) NEGATIVE RAD, CHEST, 1 VIEW, NON [id number] 19:20:00PT IN RAD ROOM 1Reason for exam:- [...] Verified Date/Time : 09/18/2017 19:20:43 Reading Location: [place] [id number] Consult Reading Room BLOOD GAS, [id number] 18:57:00 Test Item Value Reference Range Comments PH ARTERIAL (BEAKER) (test wcfi=122) 7.45 7.35-7.45 PCO2 ARTERIAL (BEAKER) (test stwa=382) 38 mmHg 35-45 PO2 ARTERIAL (BEAKER) (test fgms=984) 84 mmHg 80-90 O2 SATURATION ARTERIAL (BEAKER) (test ylur=581) 96.8 % 96.0-97.0 HCO3 ARTERIAL (BEAKER) (test tobj=290) 26 mmol/L 21-29 BASE EXCESS ARTERIAL (BEAKER) (test uazd=387) 2.0 mmol/L -2.0-3.0 PATIENT TEMPERATURE (BEAKER) (test zyoc=1752) 37.0 C FIO2 (BEAKER) (test svlf=4836) 100.0 % U/S, [id number] 18:46:00Laterality?->RightReason for exam:-> Right effusioinFINAL REPORT Exam: [...] Malhotra MDReport Verified Date/Time: 201718:46:53 Reading Location: [facility] Radiology Reading Room LACTATE DEHYDROGENASE (LDH ), BODY [id number] 18:31:00 Test Item Value Reference Range Comments LACTATE DEHYDROGENASE FLUID (BEAKER) 104 U/L Light's criteria identifies (test oisn=320) effusions if one or more are pre Absence of reference range indicates that normals have not been defined.Assay performance has not been validated for this type of specimen.GLUCOSE, BODY [id number] 18:31:00 Test Item Value Reference Range Comments GLUCOSE, BODY FLUID (BEAKER) (test jxab=6887) 234 mg/dL 70-110 Absence of reference range indicates that normals have not been defined.Assay performance has not been validated for this type of specimen.ALBUMIN, BODY [id number] 18:31:00 Test Item Value Reference Range Comments ALBUMIN FLUID (BEAKER) (test idoy=705) 0.7 gm/dL Reference Range: No Normals Assay performance has not been validated for this type of specimen.PROTEIN, BODY [id number] 18:31:00 Test Item Value Reference Range Comments PROTEIN FLUID (BEAKER) (test 1.0 g/dL Light's criteria identifies wbrk=935) effusions if one or more are pre Absence of reference range indicates that normals have not been defined.Assay performance has not been validated for this type of specimen.POCT-GLUCOSE [id number] 16:46:00 Test Item Value Reference Range Comments POC-GLUCOSE METER (BEAKER) 250 mg/dL 70-110 TESTED AT [facility] [id number] [place] [address] (test rnsy=2341) [facility] [address] [id number] 16:42:00 Test Item Value Reference Range Comments PROCALCITONIN (BEAKER) (test awgq=0998) 0.29 ng/mL <0.05 SEPSIS RISK (ng/mL)Low: 0.05-0.50Intermediate: 0.51-2.00High: & gt;=2.01LACTATE DEHYDROGENASE (LDH)2017-09-18 15:36:00 Test Item Value Reference Range Comments LACTATE DEHYDROGENASE (BEAKER) 344 U/L 125-225 Specimen slightly hemolyzed (test hstp=671) TROPONIN [id number] 15:31:00 Test Item Value Reference Range Comments TROPONIN I (BEAKER) (test rswy=654) 0.43 ng/mL 0.00-0.15 Troponin I (TnI) levels [...] and persistent tachyarrhythmia.CREATINE KINASE (CK), TOTAL AND [id number] 15:28:00 Test Item Value Reference Range Comments CREATINE KINASE TOTAL (BEAKER) (test xbsa=716) 153 U/L 30-300 CREATINE KINASE-MB (BEAKER) (test sewh=550) 6.4 ng/mL 0.0-4.9 CREATINE KINASE-MB INDEX (BEAKER) (test hwhw=946) 4.2 % CK-MB Reference Range:<5 Normal5-10 Borderline>10 AbnormalBASIC METABOLIC [id number] 15:20:00 Test Item Value Reference Range Comments SODIUM (BEAKER) (test 138 meq/L 135-148 otqa=265) POTASSIUM (BEAKER) (test 3.9 meq/L 3.5-5.5 Specimen slightly sxrt=166) hemolyzed CHLORIDE (BEAKER) (test 103 meq/L 98-106 ciwa=589) CO2 (BEAKER) (test 22 meq/L 20-31 cemc=653) BLOOD UREA NITROGEN 16 mg/dL 10-26 (BEAKER) (test zzxb=212) CREATININE (BEAKER) (test 0.73 mg/dL 0.50-1.20 Specimen slightly iwcr=124) hemolyzed GLUCOSE RANDOM (BEAKER) 237 mg/dL 70-110 (test noub=767) CALCIUM (BEAKER) (test 8.3 mg/dL 8.5-10.5 snaz=262) EGFR (BEAKER) (test 104 mL/min/1.73 sq m ESTIMATED GFR IS NOT qahe=7753) ACCURATE CREATININE CLEARANCE IN PREDICTING GLOMERULAR FILTRATION RATE. ESTIMATED GFR IS NOT APPLICABLE FOR DIALYSIS PATIENTS. PROTHROMBIN [id number] 15:16:00 Test Item Value Reference Range Comments PROTIME (BEAKER) (test acyo=487) 21.5 seconds 11.8-14.4 INR (BEAKER) (test czal=316) 1.9 1.2-1.5 RECOMMENDED COUMADIN/WARFARIN INR THERAPY RANGESSTANDARD DOSE: 2.0 - 3.0 Includes: PROPHYLAXIS forvenous thrombosis, systemic embolization; TREATMENT for venous thrombosis and/or pulmonary embolus.HIGH RISK: Target INR is 2.5-3.5 for patients with mechanical heart valves.CBC W/PLT COUNT & AUTO [id number] 15:06:00 Test Item Value Reference Range Comments WHITE BLOOD CELL COUNT (BEAKER) (test rcyx=248) 9.3 K/ L 4.0-10.0 RED BLOOD CELL COUNT (BEAKER) (test ozwn=634) 2.48 M/ L 4.20-5.80 HEMOGLOBIN (BEAKER) (test towa=945) 7.9 GM/DL 13.0-16.8 HEMATOCRIT (BEAKER) (test xfkf=733) 24.4 % 40.0-50.0 MEAN CORPUSCULAR VOLUME (BEAKER) (test mmyf=320) 98.2 fL 82.0-98.0 MEAN CORPUSCULAR HEMOGLOBIN (BEAKER) (test 31.7 pg 27.0-33.0 unqh=336) MEAN CORPUSCULAR HEMOGLOBIN CONC (BEAKER) (test 32.3 GM/DL 32.0-36.0 wpkm=279) RED CELL DISTRIBUTION WIDTH (BEAKER) (test 15.5 % 12.0-15.0 pqvr=655) PLATELET COUNT (BEAKER) (test brlq=123) 213 K/CU MM 150-430 MEAN PLATELET VOLUME (BEAKER) (test jdax=111) 8.5 fL 6.5-10.5 NUCLEATED RED BLOOD CELLS (BEAKER) (test 0 /100 WBC 0-0 hule=477) NEUTROPHILS RELATIVE PERCENT (BEAKER) (test 86 % yllm=683) LYMPHOCYTES RELATIVE PERCENT (BEAKER) (test 6 % fpen=496) MONOCYTES RELATIVE PERCENT (BEAKER) (test 8 % wnhp=246) EOSINOPHILS RELATIVE PERCENT (BEAKER) (test 0 % qamt=687) BASOPHILS RELATIVE PERCENT (BEAKER) (test 0 % vaso=769) NEUTROPHILS ABSOLUTE COUNT (BEAKER) (test 8.00 K/ L 1.80-8.00 xcus=648) LYMPHOCYTES ABSOLUTE COUNT (BEAKER) (test 0.60 K/ L 1.48-4.50 poin=007) MONOCYTES ABSOLUTE COUNT (BEAKER) (test 0.70 K/ L 0.00-1.30 wgvt=693) EOSINOPHILS ABSOLUTE COUNT (BEAKER) (test 0.00 K/ L 0.00-0.50 bjlu=393) BASOPHILS ABSOLUTE COUNT (BEAKER) (test 0.00 K/ L 0.00-0.20 rlzq=102) PLATELET [id number] 15:04:00 Test Item Value Reference Range Comments PLATELET COUNT (BEAKER) (test iwgw=412) 213 K/CU MM 150-430
[2019-08-05 14:44] LABS: Absolute Lymphocytes (CBC) 2.6 K/uL (0.7-4.9); Basophils % 0.6 % (0-1.3); Lymphocytes % 21.5 % (15.3-44.8); RBC Red Blood Cell Count 2.33 M/uL (4.33-5.43)
[2019-08-05] MEDS ORDERED: PANTOPRAZOLE 40 MG INJ ONE (14:45)
[2019-08-05] MEDS ORDERED: OCTREOTIDE ACETATE 100 MCG/ML ONE (14:46)
--- NOTE | 2019-08-05 14:46 | RAD REPORT ---
EXAM DESCRIPTION: RAD - Chest Single View - 08/05/2019 2:40 pm CLINICAL HISTORY: Dyspnea COMPARISON: February 2019 TECHNIQUE: AP portable chest image was obtained 1432 hours . FINDINGS: Lungs are clear. Interstitial pattern is similar to comparison. Heart and vasculature are normal. No measurable pleural effusion and no pneumothorax. No acute bony abnormality seen. No acute aortic findings suspected. IMPRESSION: No acute cardiopulmonary process. No significant interval change.
[2019-08-05 14:47] LABS: Protime INR 1.89
--- NOTE | 2019-08-05 14:48 | RAD REPORT ---
EXAM DESCRIPTION: RAD - Pelvis - 08/05/2019 2:40 pm CLINICAL HISTORY: Pelvic pain, trauma COMPARISON: None. TECHNIQUE: AP imaging of the pelvis was obtained. FINDINGS: Lateral aspect of the proximal femur and lateral aspect of the iliac crest on the left are cut off the field of view. No pelvic fracture identified. No fracture or dislocation of either proxi mal femur. SI joint degenerative changes are present. Degenerative change present at the lumbosacral junction. IMPRESSION: Degenerative changes are present. No pelvic fracture identified.
[2019-08-05 14:53] LABS: Hematocrit 20.8 % (39.6-49.0)
[2019-08-05] MEDS ORDERED: PANTOPRAZOLE INJ 80 MG in NA CHLORIDE 0.9% 250 ML IV SCH ×2 (15:00→16:00)
[2019-08-05] MEDS ORDERED: OCTREOTIDE 500 MCG in NA CHLORIDE 0.9% 500 ML IV SCH ×2 (15:00→16:00)
[2019-08-05 15:06] LABS: Bilirubin Direct 0.5 mg/dL (0-0.2); Bilirubin Total 1.3 mg/dL (0.2-1.0); Potassium 4.4 mmol/L (3.5-5.1); Protein, Total 4.5 g/dL (6.4-8.2); Troponin (Emerg Dept Use Only) 0.12 ng/mL (0.0-0.045)
[2019-08-05] MEDS ORDERED: FENTANYL CITR 100 MCG/2 ML ONE ×2 (15:17→16:18)
[2019-08-05 15:28] LABS: Anisocytosis 3+; Blood Morphology Comment NOTED (NOT SEEN); Hypochromasia 3+; Macrocytosis 1+; Platelet Estimate ADEQ; Poikilocytosis 3+; Urine White Blood Cell Casts OK
[2019-08-05 15:29] LABS: Basophilic Stippling 1+; Elliptocytes 3+; Teardrop Cell 2+
[2019-08-05 15:31] LABS: Burr Cells 2+
[2019-08-05] MEDS ORDERED: NA CHLORIDE 0.9% 500 ML ONE (16:04)
--- NOTE | 2019-08-05 16:04 | ER ---
Nurse's Notes [facility] Name: Jean Lucio III Age: 79 yrs Sex: Male : 1940 Arrival Date: 08/05/2019 Time: 14:18 Bed 3 Private MD: Diagnosis: Gastrointestinal hemorrhage, unspecified;Acute Anemia Presentation: 08/05 14:14 Presenting complaint: EMS states: called out for left hip pain, pt reported recent sv falls and was finally able to get himself to a phone. On EMS arrival pt presented with black dried stool on his body. Transition of care: patient was not received from another setting of care. Onset of symptoms was August 05, 2019. Care prior to arrival: IV initiated. 20 GA, in the left forearm. 14:14 Method Of Arrival: EMS: [facility] sv 14:14 Acuity: RITA 2 sv 14:40 Initial Sepsis Screen: Does the patient meet any 2 criteria? RR > 20 per min. HR > 90 sv bpm. Yes Does the patient have a suspected source of infection? No. Patient's initial sepsis screen is negative. 14:40 Risk Assessment: Do you want to hurt yourself or someone else? Patient reports no sv desire to harm self or others. Triage Assessment: 14:14 General: Appears in no apparent distress. uncomfortable, ill, unkempt, Behavior is sv cooperative, appropriate for age, restless. Pain: Complains of pain in left hip Pain does not radiate. Pain currently is 8 out of 10 on a pain scale. Pain began unknown Is continuous, Aggravated by repositioning. Neuro: Level of Consciousness is awake, alert, obeys commands, Oriented to person, place, time, situation, Moves all extremities. Speech is normal, Reports weakness. Cardiovascular: Capillary refill is > 3 seconds in bilateral fingers toes Rhythm is atrial fibrillation. Respiratory: Airway is patent Respiratory effort is even, unlabored, Respiratory pattern is symmetrical, tachypnea. GI: Abdomen is flat, non-distended, Stools are reported to be diarrhea. black tarry noted on pt and all over his body. Derm: Skin is thin, with poor turgor Skin is pale, Skin temperature is cold. Historical: - Allergies: 14:23 No Known Allergies; sg - PMHx: 14:23 Anemia; Angiodysplasia of duodenum; CAD s/p [place]; Cholithiasis; COPD; Diabetes - NIDDM; sg diagnosed with cancer at [facility], did not seek treatment; etoh abuse; Gastric varices; GERD; Hyperlipidemia; Hypertension; liver cancer; metabolic encephalopathy; Myocardial infarction; Pneumonia; rhabdomyolysis; UTI; - PSHx: 14:23 None; sg - Immunization history:: Adult Immunizations up to date. - Social history:: Smoking status: Patient/guardian denies using tobacco. - Ebola Screening: : Patient negative for fever greater than or equal to 101.5 degrees Fahrenheit, and additional compatible Ebola Virus Disease symptoms Patient denies exposure to infectious person Patient denies travel to an Ebola-affected area in the 21 days before illness onset No symptoms or risks identified at this time. Screenin:30 Abuse screen: Denies threats or abuse. Denies injuries from another. Nutritional sv screening: No deficits noted. Tuberculosis screening: No symptoms or risk factors identified. 14:30 Fall Risk None identified. sv Assessment: 15:20 Reassessment: Patient appears in no apparent distress at this time. No changes from sv previously documented assessment. Patient and/or family updated on plan of care and expected duration. Pain level reassessed. Patient is alert, oriented x 3, equal unlabored respirations, skin warm/dry/pink. 16:10 Reassessment: Patient appears in no apparent distress at this time. No changes from sv previously documented assessment. Patient and/or family updated on plan of care and expected duration. Pain level reassessed. Patient is alert, oriented x 3, equal unlabored respirations, skin warm/dry/pink. 16:15 Reassessment: 1st unit of PRBCs started, see blood transfusion sheet. sv 17:10 Reassessment: Patient appears in no apparent distress at this time. Patient and/or sv family updated on plan of care and expected duration. Pain level reassessed. Patient is alert, oriented x 3, equal unlabored respirations, skin warm/dry/pink. 17:20 Reassessment: 2nd unit of PRBCs started, see blood transfusion sheet. sv 18:00 Reassessment: Patient appears in no apparent distress at this time. No changes from sv previously documented assessment. Patient and/or family updated on plan of care and expected duration. Pain level reassessed. Patient is alert, oriented x 3, equal unlabored respirations, skin warm/dry/pink. Report given to Srinivas from EMS. Vital Signs: 14:22 BP 116 / 94; Pulse 113; Resp 28; Temp 97.1; Pulse Ox 96% on R/A; sg 15:00 BP 110 / 49; Pulse 99; Resp 19; Pulse Ox 100% ; sv 15:30 BP 105 / 47; Pulse 98; Resp 16; Pulse Ox 100% ; sv 16:00 BP 105 / 94; Pulse 99; Resp 18; Pulse Ox 97% ; sv 16:20 BP 134 / 59; Pulse 104; Resp 19; Pulse Ox 98% ; sv 17:15 BP 108 / 68; Pulse 100; Resp 17; Temp 95.5(C); Pulse Ox 100% on R/A; sv 17:45 BP 118 / 57; Pulse 100; Resp 17; Temp 95.9(C); Pulse Ox 100% on R/A; sv ED Course: 14:18 Patient arrived in ED. jr8 14:20 Hari Godfrey PA is PHCP. jr8 14:20 Joe Mcfadden MD is Attending Physician. jr8 14:20 Patient has correct armband on for positive identification. Placed in gown. Bed in low sv position. Call light in reach. Side rails up X2. ekg monitor tech on. Pulse ox on. NIBP on. Warm blanket given. Head of bed elevated. 14:23 Arm band placed on. sg 14:25 Inserted saline lock: 20 gauge in left antecubital area, using aseptic technique. Blood sv collected. Flushed left antecubital with 5 ml normal saline. 14:40 Triage completed. sv 14:40 June Florence, RN is Primary Nurse. sv 14:41 XRAY Chest (1 view) In Process Unspecified. EDMS 14:41 XRAY Pelvis In Process Unspecified. EDMS 15:00 Assisted provider with central line placement. Set up central line tray. Triple lumen sv line placed in right femoral. Line placed by Hari JIMENEZ Placement verified by blood return, Dressed with Tegaderm, Patient tolerated well. Before procedure, did Practitioner(s) obtain informed consent? No. Patient \T\ family education about procedure, CLABSI prevention and S/S of infection? Yes. Time-out/Briefing performed prior to start of procedure? Yes. Was handwashing/sanitizing done immediately prior to procedure? Yes. Was patient positioned to in a way to prevent air embolism? Yes. Was procedure site sterilized? Yes, with chlorhexidine. Was the site allowed to dry? Yes. Was local anesthetic and/or sedation utilized? Yes. During the procedure, did the Practitioner(s) maintain a sterile field? Yes. Were unused ports clamped during insertion? Yes. Was a 2nd qualified MD obtained after 3 unsuccessful insertion attempts? Yes. Was blood aspirated from each lumen? Yes. After the procedure, did the Practitioner(s) clean the site and apply a sterile dressing? Yes. 15:38 initiated a transfer with POLO from the [facility]. eb 15:[address] Covington the GI director of content marketing for [facility] with Hari JIMENEZ for patient transfer eb consultation. 15:57 connected the health plan manager director of content marketing Dr. Aurora Melton with Hari Jimenez for patient transfer eb consultation. 16:05 administrative approval given by POLO Valenzuela/ patient has been accepted to [place] [id number] bed 75/ Dr. Aurora Melton has accepted the patient in transfer/ report to be called to [phone]. 16:10 One-on-one care X 15 minutes. sv 18:04 Patient transferred, IV remains in place. intact. sv Administered Medications: 15:20 Drug: Octreotide 25 mcg Route: IV; Rate: calculated rate; Site: left forearm; sg 15:30 Follow up: Response: No adverse reaction sv 15:20 Drug: Octreotide Infusion (50 mcg/hr) - (Octreotide 500 mcg, NS 0.9% 500 ml) Route: IV; sg Rate: 50 ml/hr; Site: right femoral; 18:00 Follow up: Response: No adverse reaction; IV Status: Infusion continued upon transfer sv 15:20 Drug: ProTONIX 40 mg Route: IVP; Site: left forearm; sg 15:40 Follow up: Response: No adverse reaction sv 15:20 Drug: ProTONIX 8 mg/hr Route: IV; Rate: 25 ml/hr; Site: left forearm; sg 18:00 Follow up: Response: No adverse reaction; IV Status: Infusion continued upon transfer sv 15:30 Drug: fentaNYL (PF) 50 mcg Route: IVP; Site: left antecubital; sg 16:15 Follow up: Response: No adverse reaction; No change in condition; RASS: Agitated (+2) sv 16:10 Drug: Benadryl 12.5 mg Route: IVP; Site: left antecubital; ss 16:30 Follow up: Response: No adverse reaction sv 16:12 Drug: Solu-CORTEF 50 mg Route: IVP; Site: left antecubital; ss 16:30 Follow up: Response: No adverse reaction sv 16:19 Drug: fentaNYL (PF) 50 mcg Route: IVP; Site: left antecubital; sg 16:30 Follow up: Response: No adverse reaction; Pain is decreased; RASS: Light sedation (-2) sv Outcome: 16:03 ER care complete, transfer ordered by . mariel 16:46 Transferred by ground EMS to [facility], Transfer form completed. sv X-rays sent w/ patient. Note: Report given to Federico BURGESS at [facility]. 16:46 Condition: stable 16:46 Instructed on the need for transfer. 18:47 Patient left the ED. sv Signatures: Dispatcher [employer] EDMS June Florence RN RN Paul Mosqueda RN RN Asmita Jean RN RN ss Roszak, Josh, PA PA jr8 Botello, Elizabeth eb Corrections: (The following items were deleted from the chart) 19:56 18:30 Reassessment: Patient appears in no apparent distress at this time. No changes sv from previously documented assessment. Patient and/or family updated on plan of care and expected duration. Pain level reassessed. Patient is alert, oriented x 3, equal unlabored respirations, skin warm/dry/pink. sv
--- NOTE | 2019-08-05 16:04 | EDPHYS ---
Physician Documentation [facility] Name: Jean Lucio III Age: 79 yrs Sex: Male : 1940 Arrival Date: 08/05/2019 Time: 14:18 Bed 3 Private MD: ED Physician Joe Mcfadden HPI: 08/05 16:03 This 79 yrs old Male presents to ER via EMS with complaints of Rectal jr8 Bleeding. 16:03 Onset: The symptoms/episode began/occurred acutely, today. Context: the patient has no jr8 known special context relating to the rectal area complaint(s). Modifying factors: The symptoms are alleviated by nothing, The symptoms are aggravated by bowel movement. Associate signs and symptoms: Pertinent positives: weakness. The patient has experienced a previous episode. The patient has not recently seen a physician. 16:04 Patient originally called EMS for fall. Stated that he was too weak to get up. Upon jr8 arrival patient was caked in blood. History of liver disease, cirrhosis, and varices. Stated that he has been bleeding today. Denies vomiting of blood. Patient cool and very pale upon arrival . Historical: - Allergies: 14:23 No Known Allergies; sg - PMHx: 14:23 Anemia; Angiodysplasia of duodenum; CAD s/p [place]; Cholithiasis; COPD; Diabetes - NIDDM; sg diagnosed with cancer at [facility], did not seek treatment; etoh abuse; Gastric varices; GERD; Hyperlipidemia; Hypertension; liver cancer; metabolic encephalopathy; Myocardial infarction; Pneumonia; rhabdomyolysis; UTI; - PSHx: 14:23 None; sg - Immunization history:: Adult Immunizations up to date. - Social history:: Smoking status: Patient/guardian denies using tobacco. - Ebola Screening: : Patient negative for fever greater than or equal to 101.5 degrees Fahrenheit, and additional compatible Ebola Virus Disease symptoms Patient denies exposure to infectious person Patient denies travel to an Ebola-affected area in the 21 days before illness onset No symptoms or risks identified at this time. ROS: 16:04 Eyes: Negative for injury, pain, redness, and discharge, ENT: Negative for injury, jr8 pain, and discharge, Neck: Negative for injury, pain, and swelling, Cardiovascular: Negative for chest pain, palpitations, and edema, Back: Negative for injury and pain, Neuro: Negative for headache, weakness, numbness, tingling, and seizure. 16:04 Respiratory: Positive for shortness of breath. 16:04 Abdomen/GI: Positive for abdominal pain, black/tarry stool, rectal bleeding. 16:04 MS/extremity: Positive for pain, of the left hip. 16:04 Skin: Positive for pallor. Exam: 16:04 Head/Face: Normocephalic, atraumatic. Eyes: Pupils equal round and reactive to light, jr8 extra-ocular motions intact. Lids and lashes normal. Conjunctiva and sclera are non-icteric and not injected but are pale. Cornea within normal limits. Periorbital areas with no swelling, redness, or edema. ENT: Nares patent. No nasal discharge, no septal abnormalities noted. Tympanic membranes are normal and external auditory canals are clear. Oropharynx with no redness, swelling, or masses, exudates, or evidence of obstruction, uvula midline. Mucous membranes moist. Neck: Trachea midline, no thyromegaly or masses palpated, and no cervical lymphadenopathy. Supple, full range of motion without nuchal rigidity, or vertebral point tenderness. No Meningismus. Back: No spinal tenderness. No costovertebral tenderness. Full range of motion. MS/ Extremity: Pulses equal, no cyanosis. Neurovascular intact. Full, normal range of motion. Tenderness to left hip Neuro: Awake and alert, GCS 15, oriented to person, place, time, and situation. Cranial nerves II-XII grossly intact. Motor strength 5/5 in all extremities. Sensory grossly intact. Cerebellar exam normal. Normal gait. 16:04 Cardiovascular: Rate: tachycardic, Rhythm: regular, Pulses: Pulses are 2+ in right radial artery and left radial artery. Heart sounds: S1, normal, S2, normal, Edema: is not appreciated. 16:04 Respiratory: the patient does not display signs of respiratory distress, Respirations: tachypnea, that is mild. 16:04 Abdomen/GI: Inspection: abdomen appears normal, Bowel sounds: active, all quadrants, Palpation: soft, in all quadrants, mild abdominal tenderness, in the epigastric area, mass, is not appreciated, rebound tenderness, is not appreciated, voluntary guarding, is not appreciated, involuntary guarding, is not appreciated, no appreciated organomegaly, Indicators: McBurney's point is not tender, Coffman's sign is negative, Rovsing's sign is negative. 16:04 Skin: Appearance: Color: pale, Temperature: cool. Vital Signs: 14:22 BP 116 / 94; Pulse 113; Resp 28; Temp 97.1; Pulse Ox 96% on R/A; sg 15:00 BP 110 / 49; Pulse 99; Resp 19; Pulse Ox 100% ; sv 15:30 BP 105 / 47; Pulse 98; Resp 16; Pulse Ox 100% ; sv 16:00 BP 105 / 94; Pulse 99; Resp 18; Pulse Ox 97% ; sv 16:20 BP 134 / 59; Pulse 104; Resp 19; Pulse Ox 98% ; sv 17:15 BP 108 / 68; Pulse 100; Resp 17; Temp 95.5(C); Pulse Ox 100% on R/A; sv 17:45 BP 118 / 57; Pulse 100; Resp 17; Temp 95.9(C); Pulse Ox 100% on R/A; sv Procedures: 15:15 Central Line: the site was prepped with Betadine, in sterile fashion, a triple lumen jr8 catheter was inserted, in the right femoral vein, in 1 attempts. placement was verified, by blood return, the site was dressed with Tegaderm, using sterile technique, the patient tolerated the procedure, well. MDM: 14:20 Patient medically screened. [facility] 16:01 Data reviewed: vital signs, nurses notes, lab test result(s), EKG, radiologic studies, jr8 plain films. Data interpreted: Pulse oximetry: on room air is 96 %. Interpretation: normal. Counseling: I had a detailed discussion with the patient and/or guardian regarding: the historical points, exam findings, and any diagnostic results supporting the discharge/admit diagnosis, lab results, radiology results, the need to transfer to another facility, for higher level of care. ED course: Dr. Adria HUMPHREYS and Dr. Simon with ICU Accepted and [facility] . 08/05 14:20 Order name: Basic Metabolic Panel; Complete Time: 15:16 08/05 14:20 Order name: CBC with Diff; Complete Time: 15:36 08/05 14:20 Order name: LFT's; Complete Time: 15:16 08/05 14:20 Order name: Magnesium; Complete Time: 15:16 08/05 14:20 Order name: NT PRO-BNP; Complete Time: 15:16 08/05 14:20 Order name: PT-INR; Complete Time: 15:16 08/05 14:20 Order name: Troponin (emerg Dept Use Only); Complete Time: 15:16 08/05 14:20 Order name: XRAY Chest (1 view); Complete Time: 14:47 08/05 14:20 Order name: XRAY Pelvis; Complete Time: 14:52 08/05 14:20 Order name: TS 08/05 14:21 Order name: Bb Add On eb 08/05 14:28 Order name: AMMONIA; Complete Time: 15:16 08/05 15:29 Order name: CBC Smear Scan; Complete Time: 15:36 EDMS 08/05 15:38 Order name: Packed RBC Leukored MS 08/05 14:20 Order name: EKG; Complete Time: 14:21 08/05 14:20 Order name: Cardiac monitoring; Complete Time: 14:47 08/05 14:20 Order name: EKG - Nurse/Tech; Complete Time: 14:47 08/05 14:20 Order name: IV Saline Lock; Complete Time: 14:47 08/05 14:20 Order name: Labs collected and sent; Complete Time: 14:47 08/05 14:20 Order name: O2 Per Protocol; Complete Time: 14:47 08/05 14:20 Order name: O2 Sat Monitoring; Complete Time: 14:47 Administered Medications: 15:20 Drug: Octreotide 25 mcg Route: IV; Rate: calculated rate; Site: left forearm; sg 15:30 Follow up: Response: No adverse reaction sv 15:20 Drug: Octreotide Infusion (50 mcg/hr) - (Octreotide 500 mcg, NS 0.9% 500 ml) Route: IV; sg Rate: 50 ml/hr; Site: right femoral; 18:00 Follow up: Response: No adverse reaction; IV Status: Infusion continued upon transfer sv 15:20 Drug: ProTONIX 40 mg Route: IVP; Site: left forearm; sg 15:40 Follow up: Response: No adverse reaction sv 15:20 Drug: ProTONIX 8 mg/hr Route: IV; Rate: 25 ml/hr; Site: left forearm; sg 18:00 Follow up: Response: No adverse reaction; IV Status: Infusion continued upon transfer sv 15:30 Drug: fentaNYL (PF) 50 mcg Route: IVP; Site: left antecubital; sg 16:15 Follow up: Response: No adverse reaction; No change in condition; RASS: Agitated (+2) sv 16:10 Drug: Benadryl 12.5 mg Route: IVP; Site: left antecubital; ss 16:30 Follow up: Response: No adverse reaction sv 16:12 Drug: Solu-CORTEF 50 mg Route: IVP; Site: left antecubital; ss 16:30 Follow up: Response: No adverse reaction sv 16:19 Drug: fentaNYL (PF) 50 mcg Route: IVP; Site: left antecubital; sg 16:30 Follow up: Response: No adverse reaction; Pain is decreased; RASS: Light sedation (-2) sv Disposition: 08/05/19 16:03 Transfer ordered to [facility]. Diagnosis are Gastrointestinal hemorrhage, unspecified, Acute Anemia . - Reason for transfer: Higher level of care. - Accepting physician is Dr. Simon . - Condition is Fair. - Problem is new. - Symptoms have improved. Addendum: 08/08/2019 08:11 Co-signature as Attending Physician, Joe Mcfadden MD I agree with the assessment and c zhou plan of care. Signatures: Dispatcher [employer] June Walker RN RN Paul Mosqueda RN RN sg Anderson, Corey, MD MD cha Smirch, Shelby, RN RN Hari Godfrey PA PA jr8 Corrections: (The following items were deleted from the chart) 08/05 18:47 16:03 08/05/2019 16:03 Transfer ordered to [facility]. Diagnosis is sv Gastrointestinal hemorrhage, unspecified; Acute Anemia . Reason for transfer: Higher level of care. Accepting physician is Dr. Simon . Condition is Fair. Problem is new. Symptoms have improved. jr8
[2019-08-05] MEDS ORDERED: DIPHENHYDRAMINE 50 MG/ML VIAL ONE (16:11)
[2019-08-05] MEDS ORDERED: HYDROCORTISONE SUC 100 MG INJ ONE (16:11)
[2019-08-05] MEDS ORDERED: WATER FOR INJ,STERILE 10 ML ONE (16:11)
[2019-08-05 19:02] VITALS: O2SAT 100
[2019-08-05 19:03] VITALS: BP 118/57; TEMP 95.9
--- NOTE | 2019-08-07 06:41 | EKG ---
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
== END 2019-08-05 18:47 | disposition short-term general hospital (02) ==
LOC: ER 14:16
DX: K92.2 Gastrointestinal hemorrhage, unspecified (principal); D62 Acute posthemorrhagic anemia
CPT/HCPCS: 93005; 85025; 80048; 36415; 82140; 86900; 83735; 86850; 85610; 86901; 80076; 84484; 83880; 71045; 72170; 99285; J1200; J2354 ×2; C9113 ×2; J3010 ×2; P9016 ×2; J7030; J7040; J1720

== ENCOUNTER 2019-09-16 09:15 | Inpatient (IN) | payer OTHER ==
--- OUTSIDE RECORDS SUMMARY | 2019-09-16 09:24 | XMS REPORT ---
:1940 [facility] [address] [place] [address] [address] [place] [address] Care Team Providers Name Role Phone KYRA BOOTH ORLIN Unavailable Unavailable BRIANNE BEARDEN Unavailable Unavailable CARLOS MANUEL BOWSER Unavailable Unavailable ROSALVA OCHOA Unavailable Unavailable Problems This patient has no known problems. Allergies, Adverse Reactions, Alerts This patient has no known allergies or adverse reactions. Medications This patient has no known medications. Results Test Description Test Time Test Comments Text Results Atomic Results Result Comments POCT-GLUCOSE METER 2019-08-18 12:45:00 Test Item Value Reference Range Comments POC-GLUCOSE METER (BEAKER) 158 mg/dL 70-110 : TESTED AT [place] [id number] [facility] (test qupc=2546) [place], [id number]: Laundry Manager/Staffing And Scheduling Coordinator [id number] for MCINTYRE, ROLAND POCT-GLUCOSE [id number] 08:32:00 Test Item Value Reference Range Comments POC-GLUCOSE METER (BEAKER) 106 mg/dL 70-110 : TESTED AT [place] [id number] [facility] (test tocr=7715) [facility], [address]: Laundry Manager/Staffing And Scheduling Coordinator [id number] for MCINTYRE, ROLAND BASIC METABOLIC [id number] 06:08:00 Test Item Value Reference Range Comments SODIUM (BEAKER) (test 138 meq/L 136-145 btwx=618) POTASSIUM (BEAKER) (test 3.9 meq/L 3.5-5.1 ujpq=535) CHLORIDE (BEAKER) (test 112 meq/L 98-107 aipg=225) CO2 (BEAKER) (test 20 meq/L 22-29 hlnb=096) BLOOD UREA NITROGEN 7 mg/dL 7-21 (BEAKER) (test ooky=233) CREATININE (BEAKER) (test 0.58 mg/dL 0.57-1.25 jdnp=309) GLUCOSE RANDOM (BEAKER) 100 mg/dL 70-105 (test oqzi=805) CALCIUM (BEAKER) (test 7.5 mg/dL 8.4-10.2 fpuy=563) EGFR (BEAKER) (test 136 mL/min/1.73 sq m ESTIMATED GFR IS NOT towg=6839) ACCURATE CREATININE CLEARANCE IN PREDICTING GLOMERULAR FILTRATION RATE. ESTIMATED GFR IS NOT APPLICABLE FOR DIALYSIS PATIENTS. Laundry Manager ID - [id number] 06:07:00 Test Item Value Reference Range Comments MAGNESIUM (BEAKER) (test fnvt=453) 1.6 mg/dL 1.6-2.6 Laundry Manager ID - BSCBC W/PLT COUNT & AUTO [id number] 04:57:00 Test Item Value Reference Range Comments WHITE BLOOD CELL COUNT (BEAKER) (test jnvo=457) 2.7 K/ L 3.5-10.5 RED BLOOD CELL COUNT (BEAKER) (test onkx=841) 2.44 M/ L 4.63-6.08 HEMOGLOBIN (BEAKER) (test vftb=538) 7.2 GM/DL 13.7-17.5 HEMATOCRIT (BEAKER) (test qsfz=386) 23.4 % 40.1-51.0 MEAN CORPUSCULAR VOLUME (BEAKER) (test dodx=407) 95.9 fL 79.0-92.2 MEAN CORPUSCULAR HEMOGLOBIN (BEAKER) (test 29.5 pg 25.7-32.2 qpst=231) MEAN CORPUSCULAR HEMOGLOBIN CONC (BEAKER) (test 30.8 GM/DL 32.3-36.5 uyrg=133) RED CELL DISTRIBUTION WIDTH (BEAKER) (test 20.5 % 11.6-14.4 cqwt=548) PLATELET COUNT (BEAKER) (test tlse=751) 68 K/CU MM 150-450 MEAN PLATELET VOLUME (BEAKER) (test hzrr=980) 10.2 fL 9.4-12.4 NUCLEATED RED BLOOD CELLS (BEAKER) (test 0 /100 WBC 0-0 sukv=907) NEUTROPHILS RELATIVE PERCENT (BEAKER) (test 40 % ktem=027) LYMPHOCYTES RELATIVE PERCENT (BEAKER) (test 35 % xkku=076) MONOCYTES RELATIVE PERCENT (BEAKER) (test 18 % usmd=683) EOSINOPHILS RELATIVE PERCENT (BEAKER) (test 7 % ikdj=631) BASOPHILS RELATIVE PERCENT (BEAKER) (test 0 % tsdp=542) NEUTROPHILS ABSOLUTE COUNT (BEAKER) (test 1.05 K/ L 1.78-5.38 aqah=075) LYMPHOCYTES ABSOLUTE COUNT (BEAKER) (test 0.93 K/ L 1.32-3.57 mvso=046) MONOCYTES ABSOLUTE COUNT (BEAKER) (test yezc=647) 0.47 K/ L 0.30-0.82 EOSINOPHILS ABSOLUTE COUNT (BEAKER) (test 0.18 K/ L 0.04-0.54 apju=895) BASOPHILS ABSOLUTE COUNT (BEAKER) (test nbaa=694) 0.01 K/ L 0.01-0.08 IMMATURE GRANULOCYTES-RELATIVE PERCENT (BEAKER) 0 % 0-1 (test fjpv=0737) POCT-GLUCOSE [id number] 21:24:00 Test Item Value Reference Range Comments POC-GLUCOSE METER (BEAKER) 116 mg/dL 70-110 : TESTED AT [address] (test rvzc=4495) [facility], [address]: Laundry Manager/Staffing And Scheduling Coordinator [id number] for RAISA HORVATH POCT-GLUCOSE [id number] 16:41:00 Test Item Value Reference Range Comments POC-GLUCOSE METER (BEAKER) 127 mg/dL 70-110 : TESTED AT [address] (test tuvd=3164) [facility], [address]: Laundry Manager/Staffing And Scheduling Coordinator [id number] for Aneta Rock POCT-GLUCOSE [id number] 12:57:00 Test Item Value Reference Range Comments POC-GLUCOSE METER (BEAKER) 136 mg/dL 70-110 : TESTED AT [address] (test kjli=3579) [facility], [address]: Laundry Manager/Staffing And Scheduling Coordinator [id number] for Aneta Rock POCT-GLUCOSE [id number] 08:38:00 Test Item Value Reference Range Comments POC-GLUCOSE METER (BEAKER) 103 mg/dL 70-110 : TESTED AT [address] (test vmfq=5929) [facility], [address]: Laundry Manager/Staffing And Scheduling Coordinator [id number] for Aneta Rock ANTI-MITOCHONDRIAL AB, REFLEX TO [id number] 07:53:00 Test Item Value Reference Range Comments SCAN RESULT (test lyhs=[id number]) BASIC METABOLIC [id number] 05:06:00 Test Item Value Reference Range Comments SODIUM (BEAKER) (test 138 meq/L 136-145 loin=209) POTASSIUM (BEAKER) (test 3.8 meq/L 3.5-5.1 qepg=719) CHLORIDE (BEAKER) (test 113 meq/L 98-107 igof=200) CO2 (BEAKER) (test 23 meq/L 22-29 agbw=859) BLOOD UREA NITROGEN 7 mg/dL 7-21 (BEAKER) (test aggi=011) CREATININE (BEAKER) (test 0.60 mg/dL 0.57-1.25 xlib=750) GLUCOSE RANDOM (BEAKER) 108 mg/dL 70-105 (test pdxz=253) CALCIUM (BEAKER) (test 7.7 mg/dL 8.4-10.2 gchi=166) EGFR (BEAKER) (test 130 mL/min/1.73 sq m ESTIMATED GFR IS NOT scnt=0937) ACCURATE CREATININE CLEARANCE IN PREDICTING GLOMERULAR FILTRATION RATE. ESTIMATED GFR IS NOT APPLICABLE FOR DIALYSIS PATIENTS. Laundry Manager ID - LETITIA [id number] 04:59:00 Test Item Value Reference Range Comments MAGNESIUM (BEAKER) (test hnoj=892) 1.7 mg/dL 1.6-2.6 Laundry Manager ID - LETITIA MCBC W/PLT COUNT & AUTO [id number] 04:22:00 Test Item Value Reference Range Comments WHITE BLOOD CELL COUNT (BEAKER) (test vbnk=587) 3.1 K/ L 3.5-10.5 RED BLOOD CELL COUNT (BEAKER) (test thla=360) 2.56 M/ L 4.63-6.08 HEMOGLOBIN (BEAKER) (test cviw=161) 7.6 GM/DL 13.7-17.5 HEMATOCRIT (BEAKER) (test mgks=673) 24.4 % 40.1-51.0 MEAN CORPUSCULAR VOLUME (BEAKER) (test bfvl=972) 95.3 fL 79.0-92.2 MEAN CORPUSCULAR HEMOGLOBIN (BEAKER) (test 29.7 pg 25.7-32.2 yqwy=862) MEAN CORPUSCULAR HEMOGLOBIN CONC (BEAKER) (test 31.1 GM/DL 32.3-36.5 ltho=656) RED CELL DISTRIBUTION WIDTH (BEAKER) (test 20.8 % 11.6-14.4 jsvt=888) PLATELET COUNT (BEAKER) (test suws=394) 70 K/CU MM 150-450 MEAN PLATELET VOLUME (BEAKER) (test fblg=854) 10.2 fL 9.4-12.4 NUCLEATED RED BLOOD CELLS (BEAKER) (test 0 /100 WBC 0-0 npfu=974) NEUTROPHILS RELATIVE PERCENT (BEAKER) (test 39 % huyc=052) LYMPHOCYTES RELATIVE PERCENT (BEAKER) (test 34 % wgyk=917) MONOCYTES RELATIVE PERCENT (BEAKER) (test 19 % nzxb=433) EOSINOPHILS RELATIVE PERCENT (BEAKER) (test 6 % kflh=548) BASOPHILS RELATIVE PERCENT (BEAKER) (test 1 % wieh=999) NEUTROPHILS ABSOLUTE COUNT (BEAKER) (test 1.22 K/ L 1.78-5.38 sbtj=458) LYMPHOCYTES ABSOLUTE COUNT (BEAKER) (test 1.07 K/ L 1.32-3.57 gkyc=068) MONOCYTES ABSOLUTE COUNT (BEAKER) (test kevr=024) 0.60 K/ L 0.30-0.82 EOSINOPHILS ABSOLUTE COUNT (BEAKER) (test 0.19 K/ L 0.04-0.54 apou=886) BASOPHILS ABSOLUTE COUNT (BEAKER) (test ijjy=421) 0.02 K/ L 0.01-0.08 IMMATURE GRANULOCYTES-RELATIVE PERCENT (BEAKER) 0 % 0-1 (test wkyg=0513) POCT-GLUCOSE [id number] 00:19:00 Test Item Value Reference Range Comments POC-GLUCOSE METER (BEAKER) 134 mg/dL 70-110 : TESTED AT [address] (test krub=6162) [facility], [address]: Laundry Manager/Staffing And Scheduling Coordinator [id number] for Whitney Manjarrez POCT-GLUCOSE [id number] 18:33:00 Test Item Value Reference Range Comments POC-GLUCOSE METER (BEAKER) 85 mg/dL 70-110 : TESTED AT [address] (test telb=4424) [facility], [address]: Laundry Manager/Staffing And Scheduling Coordinator [id number] for SHARATH MOREIRA POCT-GLUCOSE [id number] 18:32:00 Test Item Value Reference Range Comments POC-GLUCOSE METER (BEAKER) 104 mg/dL 70-110 : TESTED AT [facility] [address] [facility] (test bpks=2408) [facility], [address]: Laundry Manager/Staffing And Scheduling Coordinator [id number] for SHARATH MOREIRA POCT-GLUCOSE [id number] 17:33:00 Test Item Value Reference Range Comments POC-GLUCOSE METER (BEAKER) 109 mg/dL 70-110 : TESTED AT [address] (test jhmm=9195) [facility], [address]: Laundry Manager/Staffing And Scheduling Coordinator [id number] for SHARATH MOREIRA PET, CARDIAC PERFUSION MULTIPLE STUDIES, REST AND [id number] 13:09: 00Reason for exam:->abnormal cardiac biomarkers; risk stratificationFINAL REPORT PROCEDURE: MYOCARDIAL PERFUSION PET IMAGING (Rest/ Stress)CPT CODE: 40498 INDICATION: Define extent/severity of known CAD, risk stratification CARDIOVASCULAR PROFILE:CAD History: Known CADSymptoms: DyspneaRisk Factors: Age, sex, hypertensionBMI: 21.5Medications: Aspirin, atorvastatin STRESS PROTOCOL:Pharmacologic stress was achieved with a 10-second intravenous infusion of regadenoson 0.4 mg. The radiopharmaceutical was administered 30 seconds after the start of the regadenoson infusion. IMAGING PROTOCOL:Limited low-dose CT imaging was performed for attenuation correction. 40.0 mCi of Rb-82 chloride was injected intravenously at rest, and gated PET images were obtained. Then, 40.0 mCi of Rb-82 chloride was injected intravenously at peak stress, and gated PET images were obtained. Image quality is good. REST FINDINGS:HR: 68/minBP: 123/40 mmHgPrelim. EKG: Normal sinus rhythm , first-degree AV block, PVCs, PACs.Perfusion: There is a mild severity perfusion defect of the apical inferior and apical segments.Wall Motion: Normal (LVEF 73%).LV Volume: Normal.RV Volume: Normal. STRESS FINDINGS:HR: 80/min (56% of MPHR)BP: 109/26 mmHgPrelim. EKG: Less than [address] depressions inferolaterally, PACs, PVCs.Symptoms: None (treatment not required).Perfusion: Thereis a marked severity perfusion defect of the apical inferior, apical lateral, and apical segments.Wall Motion: Not significantly changed from rest ( LVEF 69%).LV Volume: Not significantly changed from rest. IMPRESSION:1. Abnormal study.2. Abnormal myocardial perfusion. There is a medium size, marked severity, mostly reversible perfusion abnormality in the apical LV.3. Normal resting LVEF, which does not deteriorate with pharmacologic stress.4. Normal extracardiac tracer distribution.5. There is no prior study for comparison. Signed: Tiffanie Mcdaniels MDReport Verified Date/Time: 08/16/2019 13:09:56 Reading Location: [place] [id number] Reading Room POCT-GLUCOSE [id number] 11:57 :00 Test Item Value Reference Range Comments POC-GLUCOSE METER (BEAKER) 96 mg/dL 70-110 : TESTED AT [address] (test iknz=2935) [facility], [address]: Laundry Manager/Staffing And Scheduling Coordinator [id number] for KAEL TERRAZAS POCT-GLUCOSE [id number] 06:45:00 Test Item Value Reference Range Comments POC-GLUCOSE METER (BEAKER) 168 mg/dL 70-110 : TESTED AT [address] (test wpvr=6637) [facility], [address]: Laundry Manager/Staffing And Scheduling Coordinator [id number] for ManjarrezWhitney mitchell BASIC METABOLIC [id number] 06:11:00 Test Item Value Reference Range Comments SODIUM (BEAKER) (test 139 meq/L 136-145 rlsm=681) POTASSIUM (BEAKER) (test 3.7 meq/L 3.5-5.1 opdl=632) CHLORIDE (BEAKER) (test 113 meq/L 98-107 tfki=242) CO2 (BEAKER) (test 23 meq/L 22-29 rlvt=556) BLOOD UREA NITROGEN 6 mg/dL 7-21 (BEAKER) (test lfks=087) CREATININE (BEAKER) (test 0.59 mg/dL 0.57-1.25 fewv=540) GLUCOSE RANDOM (BEAKER) 83 mg/dL 70-105 (test fzsw=450) CALCIUM (BEAKER) (test 7.6 mg/dL 8.4-10.2 vlow=226) EGFR (BEAKER) (test 133 mL/min/1.73 sq m ESTIMATED GFR IS NOT uomt=6829) ACCURATE CREATININE CLEARANCE IN PREDICTING GLOMERULAR FILTRATION RATE. ESTIMATED GFR IS NOT APPLICABLE FOR DIALYSIS PATIENTS. Laundry Manager ID - LATRONEY [id number] 05:56:00 Test Item Value Reference Range Comments TROPONIN I (BEAKER) (test cksj=461) 0.07 ng/mL 0.00-0.03 Troponin I (TnI) levels must [...] failure, acidosis, acute neurological disease, and persistent tachyarrhythmia.Laundry Manager ID - [id number] 05: 49:00 Test Item Value Reference Range Comments MAGNESIUM (BEAKER) (test zbkk=513) 1.8 mg/dL 1.6-2.6 Laundry Manager ID - LACBC W/PLT COUNT & AUTO [id number] 05:14:00 Test Item Value Reference Range Comments WHITE BLOOD CELL COUNT (BEAKER) (test kltg=303) 3.0 K/ L 3.5-10.5 RED BLOOD CELL COUNT (BEAKER) (test ygsj=498) 2.57 M/ L 4.63-6.08 HEMOGLOBIN (BEAKER) (test jkfm=798) 7.6 GM/DL 13.7-17.5 HEMATOCRIT (BEAKER) (test zmuw=601) 24.5 % 40.1-51.0 MEAN CORPUSCULAR VOLUME (BEAKER) (test pcvm=822) 95.3 fL 79.0-92.2 MEAN CORPUSCULAR HEMOGLOBIN (BEAKER) (test 29.6 pg 25.7-32.2 kbad=699) MEAN CORPUSCULAR HEMOGLOBIN CONC (BEAKER) (test 31.0 GM/DL 32.3-36.5 mfal=218) RED CELL DISTRIBUTION WIDTH (BEAKER) (test 20.6 % 11.6-14.4 usoh=254) PLATELET COUNT (BEAKER) (test mpcz=173) 82 K/CU MM 150-450 MEAN PLATELET VOLUME (BEAKER) (test pmbd=516) 11.2 fL 9.4-12.4 NUCLEATED RED BLOOD CELLS (BEAKER) (test 0 /100 WBC 0-0 avzx=194) NEUTROPHILS RELATIVE PERCENT (BEAKER) (test 45 % njbh=457) LYMPHOCYTES RELATIVE PERCENT (BEAKER) (test 29 % rjfn=875) MONOCYTES RELATIVE PERCENT (BEAKER) (test 20 % cwrb=574) EOSINOPHILS RELATIVE PERCENT (BEAKER) (test 5 % jdbq=494) BASOPHILS RELATIVE PERCENT (BEAKER) (test 0 % emom=589) NEUTROPHILS ABSOLUTE COUNT (BEAKER) (test 1.36 K/ L 1.78-5.38 jvxi=285) LYMPHOCYTES ABSOLUTE COUNT (BEAKER) (test 0.89 K/ L 1.32-3.57 vwtq=187) MONOCYTES ABSOLUTE COUNT (BEAKER) (test rtfs=011) 0.61 K/ L 0.30-0.82 EOSINOPHILS ABSOLUTE COUNT (BEAKER) (test 0.16 K/ L 0.04-0.54 ejah=267) BASOPHILS ABSOLUTE COUNT (BEAKER) (test dpyo=917) 0.01 K/ L 0.01-0.08 IMMATURE GRANULOCYTES-RELATIVE PERCENT (BEAKER) 0 % 0-1 (test upvt=1619) MR, ABDOMEN, [id number] 16:14:00FINAL REPORT MRI of the abdomen dated August 14, 2019 Comparison: February 13, 2019 Comment: Multiplanar T1 and T2-weighted images of the abdomen, postcontrast axial and coronal T1-weighted images of the abdomen were obtained. The study is somewhat limited secondary to motion artifact. Liver is cirrhotic in appearance with irregular margins. No enhancing mass is seen in the liver.Spleen is enlarged measuring approximately 14.8 x 5.8 x 13.2 cm. The splenic, superior mesenteric, portal, and hepatic veins are patent. Main portal vein is small in caliber measuring approximately 7 mm in diameter. Enlarged collateral veins are seen in the splenic hilum and left lateroconal fascia. There is splenorenal shunt. Gallbladder is contracted. Multiple small gallstones are seen. No biliary dilatation is noted. Pancreas and adrenals are unremarkable. Both kidneys are normal in size and functioning. Trace amount of free fluid is seen in the abdomen. There is trace right pleural effusion andsmall left pleural effusion with bibasilar subsegmental atelectasis. IMPRESSION:1. Cirrhosis with splenomegaly and portal hypertension.2. No suspicious hepatic mass.3. Trace ascites and bilateral pleural effusion with bibasilar subsegmental atelectasis.4. Cholelithiasis without biliary dilatation. Signed: Kathe Melvin MDReport Verified Date/Time: 08/15/2019 16:14:05 Reading Location: [address] Body Reading Room POCT-GLUCOSE [id number] 12:37:00 Test Item Value Reference Range Comments POC-GLUCOSE METER (BEAKER) 97 mg/dL 70-110 : TESTED AT [address] (test gapw=5052) [facility], [address]: Laundry Manager/Staffing And Scheduling Coordinator [id number] for SHARATH MOREIRA POCT-GLUCOSE [id number] 08:18:00 Test Item Value Reference Range Comments POC-GLUCOSE METER (BEAKER) 103 mg/dL 70-110 : TESTED AT [address] (test dgft=8689) [facility], [address]: Laundry Manager/Staffing And Scheduling Coordinator [id number] for HARISHSHARATH BASIC METABOLIC [id number] 06:43:00 Test Item Value Reference Range Comments SODIUM (BEAKER) (test 139 meq/L 136-145 kjcj=176) POTASSIUM (BEAKER) (test 3.7 meq/L 3.5-5.1 lnfb=194) CHLORIDE (BEAKER) (test 113 meq/L 98-107 hwuw=055) CO2 (BEAKER) (test 22 meq/L 22-29 kuyn=098) BLOOD UREA NITROGEN 6 mg/dL 7-21 (BEAKER) (test mmwk=215) CREATININE (BEAKER) (test 0.60 mg/dL 0.57-1.25 enod=621) GLUCOSE RANDOM (BEAKER) 96 mg/dL 70-105 (test jcoc=833) CALCIUM (BEAKER) (test 7.6 mg/dL 8.4-10.2 phua=449) EGFR (BEAKER) (test 130 mL/min/1.73 sq m ESTIMATED GFR IS NOT epft=2054) ACCURATE CREATININE CLEARANCE IN PREDICTING GLOMERULAR FILTRATION RATE. ESTIMATED GFR IS NOT APPLICABLE FOR DIALYSIS PATIENTS. Laundry Manager ID John LANDRY [id number] 06:33:00 Test Item Value Reference Range Comments MAGNESIUM (BEAKER) (test qofu=780) 1.5 mg/dL 1.6-2.6 Laundry Manager WILIAM LANDRY LCBC W/PLT COUNT & AUTO [id number] 06:08:00 Test Item Value Reference Range Comments WHITE BLOOD CELL COUNT (BEAKER) (test gimx=517) 3.1 K/ L 3.5-10.5 RED BLOOD CELL COUNT (BEAKER) (test yyaw=694) 2.50 M/ L 4.63-6.08 HEMOGLOBIN (BEAKER) (test dcdc=260) 7.4 GM/DL 13.7-17.5 HEMATOCRIT (BEAKER) (test fvia=940) 23.8 % 40.1-51.0 MEAN CORPUSCULAR VOLUME (BEAKER) (test swws=589) 95.2 fL 79.0-92.2 MEAN CORPUSCULAR HEMOGLOBIN (BEAKER) (test 29.6 pg 25.7-32.2 tmpf=225) MEAN CORPUSCULAR HEMOGLOBIN CONC (BEAKER) (test 31.1 GM/DL 32.3-36.5 ozbo=747) RED CELL DISTRIBUTION WIDTH (BEAKER) (test 20.6 % 11.6-14.4 ycvt=558) PLATELET COUNT (BEAKER) (test tesw=210) 65 K/CU MM 150-450 MEAN PLATELET VOLUME (BEAKER) (test olem=548) 11.3 fL 9.4-12.4 NUCLEATED RED BLOOD CELLS (BEAKER) (test 0 /100 WBC 0-0 lgqr=992) NEUTROPHILS RELATIVE PERCENT (BEAKER) (test 46 % rgpt=128) LYMPHOCYTES RELATIVE PERCENT (BEAKER) (test 30 % jxbj=432) MONOCYTES RELATIVE PERCENT (BEAKER) (test 18 % qsqb=296) EOSINOPHILS RELATIVE PERCENT (BEAKER) (test 5 % qorj=014) BASOPHILS RELATIVE PERCENT (BEAKER) (test 1 % gttw=259) NEUTROPHILS ABSOLUTE COUNT (BEAKER) (test 1.45 K/ L 1.78-5.38 hqen=189) LYMPHOCYTES ABSOLUTE COUNT (BEAKER) (test 0.95 K/ L 1.32-3.57 tsif=430) MONOCYTES ABSOLUTE COUNT (BEAKER) (test kghe=673) 0.56 K/ L 0.30-0.82 EOSINOPHILS ABSOLUTE COUNT (BEAKER) (test 0.15 K/ L 0.04-0.54 syrd=902) BASOPHILS ABSOLUTE COUNT (BEAKER) (test lkbk=235) 0.02 K/ L 0.01-0.08 IMMATURE GRANULOCYTES-RELATIVE PERCENT (BEAKER) 0 % 0-1 (test aphs=0657) POCT-GLUCOSE [id number] 21:49:00 Test Item Value Reference Range Comments POC-GLUCOSE METER (BEAKER) 114 mg/dL 70-110 : TESTED AT [address] (test qwew=9578) [facility], [address]: Laundry Manager/Staffing And Scheduling Coordinator [id number] for Manjarrez, Ilcibeth POCT-GLUCOSE [id number] 18:04:00 Test Item Value Reference Range Comments POC-GLUCOSE METER (BEAKER) 129 mg/dL 70-110 : TESTED AT [address] (test vqlz=1376) [facility], [address]: Laundry Manager/Staffing And Scheduling Coordinator [id number] for MCINTYRE, ROLAND POCT-GLUCOSE [id number] 12:56:00 Test Item Value Reference Range Comments POC-GLUCOSE METER (BEAKER) 122 mg/dL 70-110 : TESTED AT [address] (test kkeh=3548) [facility], [address]: Laundry Manager/Staffing And Scheduling Coordinator [id number] for MCINTYRE, ROLAND POCT-GLUCOSE [id number] 08:25:00 Test Item Value Reference Range Comments POC-GLUCOSE METER (BEAKER) 116 mg/dL 70-110 : TESTED AT [address] (test ogkj=7703) [facility], [address]: Laundry Manager/Staffing And Scheduling Coordinator [id number] for MCINTYRE, ROLAND BASIC METABOLIC [id number] 07:09:00 Test Item Value Reference Range Comments SODIUM (BEAKER) (test 138 meq/L 136-145 kkhv=524) POTASSIUM (BEAKER) (test 3.9 meq/L 3.5-5.1 Specimen slightly wjim=814) hemolyzed CHLORIDE (BEAKER) (test 112 meq/L 98-107 izcd=635) CO2 (BEAKER) (test 21 meq/L 22-29 whuf=141) BLOOD UREA NITROGEN 8 mg/dL 7-21 (BEAKER) (test ymvw=603) CREATININE (BEAKER) (test 0.59 mg/dL 0.57-1.25 Specimen slightly kxly=670) hemolyzed GLUCOSE RANDOM (BEAKER) 91 mg/dL 70-105 (test xcvr=914) CALCIUM (BEAKER) (test 7.7 mg/dL 8.4-10.2 fyge=900) EGFR (BEAKER) (test 133 mL/min/1.73 sq m ESTIMATED GFR IS NOT xqwy=6812) ACCURATE CREATININE CLEARANCE IN PREDICTING GLOMERULAR FILTRATION RATE. ESTIMATED GFR IS NOT APPLICABLE FOR DIALYSIS PATIENTS. Laundry Manager ID John LANDRY [id number] 06:59:00 Test Item Value Reference Range Comments MAGNESIUM (BEAKER) (test 1.6 mg/dL 1.6-2.6 Specimen slightly hemolyzed lbqu=040) Laundry Manager WILIAM John LANDRY LCBC W/PLT COUNT & AUTO [id number] 06:52:00 Test Item Value Reference Range Comments WHITE BLOOD CELL COUNT (BEAKER) (test knme=040) 3.9 K/ L 3.5-10.5 RED BLOOD CELL COUNT (BEAKER) (test zfqu=235) 2.71 M/ L 4.63-6.08 HEMOGLOBIN (BEAKER) (test ukjm=193) 8.1 GM/DL 13.7-17.5 HEMATOCRIT (BEAKER) (test qaqs=729) 25.4 % 40.1-51.0 MEAN CORPUSCULAR VOLUME (BEAKER) (test vmmr=935) 93.7 fL 79.0-92.2 MEAN CORPUSCULAR HEMOGLOBIN (BEAKER) (test 29.9 pg 25.7-32.2 coza=730) MEAN CORPUSCULAR HEMOGLOBIN CONC (BEAKER) (test 31.9 GM/DL 32.3-36.5 nhut=347) RED CELL DISTRIBUTION WIDTH (BEAKER) (test 20.4 % 11.6-14.4 rzjt=552) PLATELET COUNT (BEAKER) (test zlze=253) 61 K/CU MM 150-450 MEAN PLATELET VOLUME (BEAKER) (test gntw=225) 10.6 fL 9.4-12.4 NUCLEATED RED BLOOD CELLS (BEAKER) (test 0 /100 WBC 0-0 zhvw=367) NEUTROPHILS RELATIVE PERCENT (BEAKER) (test 52 % emim=023) LYMPHOCYTES RELATIVE PERCENT (BEAKER) (test 26 % ifmb=915) MONOCYTES RELATIVE PERCENT (BEAKER) (test 16 % lfnu=551) EOSINOPHILS RELATIVE PERCENT (BEAKER) (test 5 % blun=720) BASOPHILS RELATIVE PERCENT (BEAKER) (test 0 % vdrm=240) NEUTROPHILS ABSOLUTE COUNT (BEAKER) (test 2.02 K/ L 1.78-5.38 tyqi=173) LYMPHOCYTES ABSOLUTE COUNT (BEAKER) (test 1.01 K/ L 1.32-3.57 llpp=257) MONOCYTES ABSOLUTE COUNT (BEAKER) (test wddt=434) 0.63 K/ L 0.30-0.82 EOSINOPHILS ABSOLUTE COUNT (BEAKER) (test 0.20 K/ L 0.04-0.54 qhmp=641) BASOPHILS ABSOLUTE COUNT (BEAKER) (test uufz=962) 0.01 K/ L 0.01-0.08 IMMATURE GRANULOCYTES-RELATIVE PERCENT (BEAKER) 1 % 0-1 (test brsu=4651) POCT-GLUCOSE [id number] 21:38:00 Test Item Value Reference Range Comments POC-GLUCOSE METER (BEAKER) 84 mg/dL 70-110 : TESTED AT [address] (test rhsl=4077) [facility], [id number]: Laundry Manager/Staffing And Scheduling Coordinator [id number] for IAM MEDINA POCT-GLUCOSE [id number] 18:47:00 Test Item Value Reference Range Comments POC-GLUCOSE METER (BEAKER) 95 mg/dL 70-110 : TESTED AT [address] (test rqek=9030) [facility], [id number]: Laundry Manager/Staffing And Scheduling Coordinator [id number] for PATRICIA STAPLETON POCT-GLUCOSE [id number] 12:17:00 Test Item Value Reference Range Comments POC-GLUCOSE METER (BEAKER) 173 mg/dL 70-110 : TESTED AT [address] (test sfwn=2406) [facility], [id number]: Laundry Manager/Staffing And Scheduling Coordinator [id number] for YAHIR SENA HEPATITIS C PCR, [id number] 08:43:00 Test Item Value Reference Range Comments HCV RESULT COMPONENT (BEAKER) HCV RNA not detected HCV RNA not detected (test xcyg=3114) This test uses a Real-Time Polymerase Chain Reaction (RT-PCR) methodology and was performed using ROWENA Ampliprep/ROWENA TaqMan HCV test kit version 2.0 ( [employer]).Reportable range for this assay is 15 - 100,000, 000 IU per mL (1.18 - 8.00 Log IU/mL).POCT-GLUCOSE [id number] 07:46:00 Test Item Value Reference Range Comments POC-GLUCOSE METER (BEAKER) 89 mg/dL 70-110 : TESTED AT [facility] [address] [facility] (test tfzw=7633) [facility], [address]: Laundry Manager/Staffing And Scheduling Coordinator [id number] for PACO BELTRANALFA ZAIDIYAHIR BASIC METABOLIC [id number] 06:07:00 Test Item Value Reference Range Comments SODIUM (BEAKER) (test 138 meq/L 136-145 qoqt=403) POTASSIUM (BEAKER) (test 4.0 meq/L 3.5-5.1 npdt=424) CHLORIDE (BEAKER) (test 113 meq/L 98-107 kzsa=105) CO2 (BEAKER) (test 22 meq/L 22-29 qkng=290) BLOOD UREA NITROGEN 9 mg/dL 7-21 (BEAKER) (test kgsy=522) CREATININE (BEAKER) (test 0.62 mg/dL 0.57-1.25 zcjb=774) GLUCOSE RANDOM (BEAKER) 79 mg/dL 70-105 (test tbrd=734) CALCIUM (BEAKER) (test 7.5 mg/dL 8.4-10.2 iefc=263) EGFR (BEAKER) (test 125 mL/min/1.73 sq m ESTIMATED GFR IS NOT sgpe=1326) ACCURATE CREATININE CLEARANCE IN PREDICTING GLOMERULAR FILTRATION RATE. ESTIMATED GFR IS NOT APPLICABLE FOR DIALYSIS PATIENTS. Laundry Manager ID - LETITIA [id number] 05:47:00 Test Item Value Reference Range Comments PHOSPHORUS (BEAKER) (test vjkq=829) 3.1 mg/dL 2.3-4.7 Laundry Manager ID - LETITIA [id number] 05:47:00 Test Item Value Reference Range Comments MAGNESIUM (BEAKER) (test crly=574) 1.7 mg/dL 1.6-2.6 Laundry Manager WILIAM - LETITIA [facility] W/PLT COUNT & AUTO [id number] 05:33:00 Test Item Value Reference Range Comments WHITE BLOOD CELL COUNT (BEAKER) (test yzkw=611) 3.7 K/ L 3.5-10.5 RED BLOOD CELL COUNT (BEAKER) (test eoew=400) 2.47 M/ L 4.63-6.08 HEMOGLOBIN (BEAKER) (test kqdr=950) 7.1 GM/DL 13.7-17.5 HEMATOCRIT (BEAKER) (test ywbi=942) 23.1 % 40.1-51.0 MEAN CORPUSCULAR VOLUME (BEAKER) (test wcgv=905) 93.5 fL 79.0-92.2 MEAN CORPUSCULAR HEMOGLOBIN (BEAKER) (test 28.7 pg 25.7-32.2 opix=391) MEAN CORPUSCULAR HEMOGLOBIN CONC (BEAKER) (test 30.7 GM/DL 32.3-36.5 sbfu=182) RED CELL DISTRIBUTION WIDTH (BEAKER) (test 19.9 % 11.6-14.4 wtvt=851) PLATELET COUNT (BEAKER) (test plfn=196) 56 K/CU MM 150-450 MEAN PLATELET VOLUME (BEAKER) (test rddn=982) 10.3 fL 9.4-12.4 NUCLEATED RED BLOOD CELLS (BEAKER) (test 0 /100 WBC 0-0 vdeu=452) NEUTROPHILS RELATIVE PERCENT (BEAKER) (test 47 % lbnn=673) LYMPHOCYTES RELATIVE PERCENT (BEAKER) (test 30 % idwa=897) MONOCYTES RELATIVE PERCENT (BEAKER) (test 17 % zepw=906) EOSINOPHILS RELATIVE PERCENT (BEAKER) (test 5 % quss=619) BASOPHILS RELATIVE PERCENT (BEAKER) (test 0 % zpxz=919) NEUTROPHILS ABSOLUTE COUNT (BEAKER) (test 1.73 K/ L 1.78-5.38 zbct=381) LYMPHOCYTES ABSOLUTE COUNT (BEAKER) (test 1.10 K/ L 1.32-3.57 hpuc=057) MONOCYTES ABSOLUTE COUNT (BEAKER) (test epmz=721) 0.63 K/ L 0.30-0.82 EOSINOPHILS ABSOLUTE COUNT (BEAKER) (test 0.19 K/ L 0.04-0.54 flbh=418) BASOPHILS ABSOLUTE COUNT (BEAKER) (test jthr=609) 0.01 K/ L 0.01-0.08 IMMATURE GRANULOCYTES-RELATIVE PERCENT (BEAKER) 1 % 0-1 (test lbml=7280) [id number] 05:16:00 Test Item Value Reference Range Comments PROTIME (BEAKER) (test ncxm=692) 18.4 seconds 11.9-14.2 INR (BEAKER) (test ixgg=421) 1.6 <=5.9 PARTIAL THROMBOPLASTIN TIME (BEAKER) (test 42.8 seconds 22.5-36.0 pafa=565) Effective 12/22/2018: PT Reference Range ChangeNew: 11.9-14.2 Previous: 11.7- 14.7RECOMMENDED COUMADIN/WARFARIN INR THERAPY RANGESSTANDARD DOSE: 2.0-3.0 Includes: PROPHYLAXIS for venous thrombosis, systemic embolization; TREATMENT for venous thrombosis and/or pulmonary embolus.HIGH RISK: Target INR is2.5-3.5 for patients wiht mechanical heart valves.POCT-GLUCOSE [id number] 22:01:00 Test Item Value Reference Range Comments POC-GLUCOSE METER (BEAKER) 83 mg/dL 70-110 : TESTED AT [address] (test aomn=2885) [facility], [address]: Laundry Manager/Staffing And Scheduling Coordinator [id number] for SANTINO ZAVALA POCT-GLUCOSE [id number] 16:55:00 Test Item Value Reference Range Comments POC-GLUCOSE METER (BEAKER) 152 mg/dL 70-110 : TESTED AT [address] (test aphz=5661) [facility], [address]: Laundry Manager/Staffing And Scheduling Coordinator [id number] for KAEL TERRAZAS POCT-GLUCOSE [id number] 11:55:00 Test Item Value Reference Range Comments POC-GLUCOSE METER (BEAKER) 174 mg/dL 70-110 : TESTED AT [address] (test ijue=3970) [facility], [address]: Laundry Manager/Staffing And Scheduling Coordinator [id number] for MK KAEL ALISSA TITER AND [id number] 09:54:00 Test Item Value Reference Range Comments ALISSA TITER (BEAKER) (test erxi=9901) :40 ALISSA PATTERN (BEAKER) (test brwv=7137) Homogeneous ANTI-NUCLEAR ANTIBODY (ALISSA)2019-08-12 09:53:00 Test Item Value Reference Range Comments ANTI-NUCLEAR ANTIBODY (ALISSA) (BEAKER) (test Positive Negative ehsh=232) Test performed by IFA method.POCT-GLUCOSE [id number] 07:56:00 Test Item Value Reference Range Comments POC-GLUCOSE METER (BEAKER) 93 mg/dL 70-110 : TESTED AT [facility] [address] [facility] (test oxnr=8511) [facility], [address]: Laundry Manager/Staffing And Scheduling Coordinator [id number] for KAEL TERRAZAS IMMUNOGLOBULIN G (IGG)2019-08-12 07:46:00 Test Item Value Reference Range Comments IMMUNOGLOBULIN G (IGG) (BEAKER) (test tqjv=842) 769 mg/dL 540-1,822 Laundry Manager ID - FREDDYGHEPATITIS C [id number] 07:44:00 Test Item Value Reference Range Comments HEPATITIS C ANTIBODY (BEAKER) (test gxhk=827) Nonreactive Nonreactive Laundry Manager ID - [id number] 07:05:00 Test Item Value Reference Range Comments AMMONIA (BEAKER) (test cenv=212) 40 mol/L 18-72 Laundry Manager ID - WILLOW WBASIC METABOLIC [id number] 05:59:00 Test Item Value Reference Range Comments SODIUM (BEAKER) (test 139 meq/L 136-145 lbrk=426) POTASSIUM (BEAKER) (test 4.0 meq/L 3.5-5.1 cozl=098) CHLORIDE (BEAKER) (test 113 meq/L 98-107 dpry=044) CO2 (BEAKER) (test 22 meq/L 22-29 dvfb=697) BLOOD UREA NITROGEN 8 mg/dL 7-21 (BEAKER) (test ryyg=327) CREATININE (BEAKER) (test 0.65 mg/dL 0.57-1.25 gkvt=009) GLUCOSE RANDOM (BEAKER) 97 mg/dL 70-105 (test pxlt=293) CALCIUM (BEAKER) (test 7.6 mg/dL 8.4-10.2 rwpx=513) EGFR (BEAKER) (test 119 mL/min/1.73 sq m ESTIMATED GFR IS NOT siga=8194) ACCURATE CREATININE CLEARANCE IN PREDICTING GLOMERULAR FILTRATION RATE. ESTIMATED GFR IS NOT APPLICABLE FOR DIALYSIS PATIENTS. Laundry Manager ID - WILLOW WSpecimen slightly [id number] 05:54:00 Test Item Value Reference Range Comments PHOSPHORUS (BEAKER) (test rzbb=922) 3.1 mg/dL 2.3-4.7 Laundry Manager ID - WILLOW [id number] 05:54:00 Test Item Value Reference Range Comments MAGNESIUM (BEAKER) (test bmtv=492) 1.9 mg/dL 1.6-2.6 Laundry Manager ID - WILLOW WCBC W/PLT COUNT & AUTO [id number] 05:42:00 Test Item Value Reference Range Comments WHITE BLOOD CELL COUNT (BEAKER) (test urzc=852) 4.0 K/ L 3.5-10.5 RED BLOOD CELL COUNT (BEAKER) (test ukow=605) 2.89 M/ L 4.63-6.08 HEMOGLOBIN (BEAKER) (test empz=109) 8.4 GM/DL 13.7-17.5 HEMATOCRIT (BEAKER) (test lkei=692) 26.8 % 40.1-51.0 MEAN CORPUSCULAR VOLUME (BEAKER) (test zgrj=429) 92.7 fL 79.0-92.2 MEAN CORPUSCULAR HEMOGLOBIN (BEAKER) (test 29.1 pg 25.7-32.2 sxfl=288) MEAN CORPUSCULAR HEMOGLOBIN CONC (BEAKER) (test 31.3 GM/DL 32.3-36.5 xlua=387) RED CELL DISTRIBUTION WIDTH (BEAKER) (test 19.9 % 11.6-14.4 smdp=794) PLATELET COUNT (BEAKER) (test yejf=888) 57 K/CU MM 150-450 MEAN PLATELET VOLUME (BEAKER) (test idaz=422) 10.9 fL 9.4-12.4 NUCLEATED RED BLOOD CELLS (BEAKER) (test 0 /100 WBC 0-0 wfew=331) NEUTROPHILS RELATIVE PERCENT (BEAKER) (test 52 % ergs=243) LYMPHOCYTES RELATIVE PERCENT (BEAKER) (test 25 % shco=799) MONOCYTES RELATIVE PERCENT (BEAKER) (test 17 % mzys=670) EOSINOPHILS RELATIVE PERCENT (BEAKER) (test 6 % jbix=797) BASOPHILS RELATIVE PERCENT (BEAKER) (test 1 % vhjg=822) NEUTROPHILS ABSOLUTE COUNT (BEAKER) (test 2.05 K/ L 1.78-5.38 dhkv=141) LYMPHOCYTES ABSOLUTE COUNT (BEAKER) (test 0.99 K/ L 1.32-3.57 mhxe=120) MONOCYTES ABSOLUTE COUNT (BEAKER) (test crte=527) 0.66 K/ L 0.30-0.82 EOSINOPHILS ABSOLUTE COUNT (BEAKER) (test 0.24 K/ L 0.04-0.54 tvgo=728) BASOPHILS ABSOLUTE COUNT (BEAKER) (test erlq=660) 0.02 K/ L 0.01-0.08 IMMATURE GRANULOCYTES-RELATIVE PERCENT (BEAKER) 1 % 0-1 (test vxnl=5104) [id number] 05:23:00 Test Item Value Reference Range Comments ALPHA-1 ANTITRYPSIN (BEAKER) (test cxqf=301) 164.00 mg/dL 90.00-200.00 Laundry Manager ID - [id number] 05:15:00 Test Item Value Reference Range Comments FIBRINOGEN LEVEL (BEAKER) (test loji=726) 268 mg/dl 225-434 [id number] 05:15:00 Test Item Value Reference Range Comments PROTIME (BEAKER) (test ppky=801) 17.5 seconds 11.9-14.2 INR (BEAKER) (test pmlw=055) 1.5 <=5.9 PARTIAL THROMBOPLASTIN TIME (BEAKER) (test 41.6 seconds 22.5-36.0 pcgw=016) Effective 12/22/2018: PT Reference Range ChangeNew: 11.9-14.2 Previous: 11.7- 14.7RECOMMENDED COUMADIN/WARFARIN INR THERAPY RANGESSTANDARD DOSE: 2.0-3.0 Includes: PROPHYLAXIS for venous thrombosis, systemic embolization; TREATMENT for venous thrombosis and/or pulmonary embolus.HIGH RISK: Target INR is2.5-3.5 for patients wiht mechanical heart valves.POCT-GLUCOSE [id number] 00:54:00 Test Item Value Reference Range Comments POC-GLUCOSE METER (BEAKER) 131 mg/dL 70-110 : TESTED AT [address] (test ogld=3547) [facility] [address]: Laundry Manager/Staffing And Scheduling Coordinator [id number] for Whitney Manjarrez POCT-GLUCOSE [id number] 22:27:00 Test Item Value Reference Range Comments POC-GLUCOSE METER (BEAKER) 184 mg/dL 70-110 : TESTED AT [address] (test mwcj=7892) [facility], [address]: Laundry Manager/Staffing And Scheduling Coordinator [id number] for IVAN LAI HEMOGLOBIN AND [id number] 20:06:00 Test Item Value Reference Range Comments HEMOGLOBIN (BEAKER) (test iwiw=735) 6.8 GM/DL 13.7-17.5 HEMATOCRIT (BEAKER) (test cezc=641) 21.3 % 40.1-51.0 Laundry Manager ID - 6000POCT-GLUCOSE [id number] 17:50:00 Test Item Value Reference Range Comments POC-GLUCOSE METER (BEAKER) 120 mg/dL 70-110 : TESTED AT [address] (test qwhb=1384) [facility], [address]: Laundry Manager/Staffing And Scheduling Coordinator [id number] for CHRISTINA GOMEZ HEPATITIS C [id number] 17:29:00 Test Item Value Reference Range Comments HEPATITIS C ANTIBODY (BEAKER) (test ikef=421) Nonreactive Nonreactive Laundry Manager ID - DBIMMUNOGLOBULIN G (IGG)2019-08-11 17:04:00 Test Item Value Reference Range Comments IMMUNOGLOBULIN G (IGG) (BEAKER) (test gygi=759) 655 mg/dL 540-1,822 Laundry Manager ID - [id number] 16:17:00 Test Item Value Reference Range Comments MAGNESIUM (BEAKER) (test oxar=351) 2.1 mg/dL 1.6-2.6 Laundry Manager ID - BSHEMOGLOBIN AND [id number] 15:57:00 Test Item Value Reference Range Comments HEMOGLOBIN (BEAKER) (test qmaj=384) 6.6 GM/DL 13.7-17.5 HEMATOCRIT (BEAKER) (test anrs=452) 21.1 % 40.1-51.0 Laundry Manager ID - 6000POCT-GLUCOSE [id number] 12:12:00 Test Item Value Reference Range Comments POC-GLUCOSE METER (BEAKER) 177 mg/dL 70-110 : Notified RN/MD: TESTED AT (test xdef=8132) [address] [place], [address]: Laundry Manager/Staffing And Scheduling Coordinator [id number] for CHRISTINA GOMEZ CBC W/PLT COUNT & AUTO [id number] 06:36:00 Test Item Value Reference Range Comments WHITE BLOOD CELL COUNT (BEAKER) (test urzl=703) 4.4 K/ L 3.5-10.5 RED BLOOD CELL COUNT (BEAKER) (test trty=741) 2.50 M/ L 4.63-6.08 HEMOGLOBIN (BEAKER) (test yvaj=661) 7.3 GM/DL 13.7-17.5 HEMATOCRIT (BEAKER) (test idtf=738) 23.5 % 40.1-51.0 MEAN CORPUSCULAR VOLUME (BEAKER) (test qbqj=398) 94.0 fL 79.0-92.2 MEAN CORPUSCULAR HEMOGLOBIN (BEAKER) (test 29.2 pg 25.7-32.2 rvjq=694) MEAN CORPUSCULAR HEMOGLOBIN CONC (BEAKER) (test 31.1 GM/DL 32.3-36.5 gpml=631) RED CELL DISTRIBUTION WIDTH (BEAKER) (test 20.0 % 11.6-14.4 jpna=588) PLATELET COUNT (BEAKER) (test xtbt=902) 50 K/CU MM 150-450 MEAN PLATELET VOLUME (BEAKER) (test ivyw=976) 10.7 fL 9.4-12.4 NUCLEATED RED BLOOD CELLS (BEAKER) (test 1 /100 WBC 0-0 spcp=811) NEUTROPHILS RELATIVE PERCENT (BEAKER) (test 59 % lyqy=112) LYMPHOCYTES RELATIVE PERCENT (BEAKER) (test 19 % rwgi=966) MONOCYTES RELATIVE PERCENT (BEAKER) (test 15 % hwtz=528) EOSINOPHILS RELATIVE PERCENT (BEAKER) (test 5 % undy=196) BASOPHILS RELATIVE PERCENT (BEAKER) (test 0 % qmdd=810) NEUTROPHILS ABSOLUTE COUNT (BEAKER) (test 2.59 K/ L 1.78-5.38 toyp=195) LYMPHOCYTES ABSOLUTE COUNT (BEAKER) (test 0.85 K/ L 1.32-3.57 yvkw=203) MONOCYTES ABSOLUTE COUNT (BEAKER) (test anse=003) 0.68 K/ L 0.30-0.82 EOSINOPHILS ABSOLUTE COUNT (BEAKER) (test 0.22 K/ L 0.04-0.54 mfhb=673) BASOPHILS ABSOLUTE COUNT (BEAKER) (test duzi=949) 0.01 K/ L 0.01-0.08 IMMATURE GRANULOCYTES-RELATIVE PERCENT (BEAKER) 1 % 0-1 (test fvua=1718) [id number] 06:31:00 Test Item Value Reference Range Comments TRANSFERRIN (BEAKER) (test nbkv=979) 148 mg/dL 174-382 Laundry Manager ID - WILLOW WIRON, TIBC, % SAT. (WITHOUT FERRITIN)2019-08-11 06:31:00 Test Item Value Reference Range Comments IRON (BEAKER) (test wyjk=552) 65.0 ug/dL 40.0-160.0 TOTAL IRON BINDING CAPACITY (BEAKER) (test 185 ug/dL 250-450 txji=107) IRON % SATURATION (2) (BEAKER) (test aomf=7945) 35 % 20-55 Laundry Manager ID - WILLOW [id number] 06:31:00 Test Item Value Reference Range Comments FERRITIN (BEAKER) (test nydv=697) 44 ng/mL 5-275 Laundry Manager ID - WILLOW WVITAMIN B12 AND [id number] 06:31:00 Test Item Value Reference Range Comments VITAMIN B12 (BEAKER) (test lmnl=035) 1086 pg/mL 213-816 FOLATE (BEAKER) (test rxwf=132) 12.3 ng/mL >=7.0 Laundry Manager ID - WILLOW [id number] 05:50:00 Test Item Value Reference Range Comments AMMONIA (BEAKER) (test aren=135) 23 mol/L 18-72 Laundry Manager ID - WILLOW WBASIC METABOLIC [id number] 05:38:00 Test Item Value Reference Range Comments SODIUM (BEAKER) (test 142 meq/L 136-145 cyjm=287) POTASSIUM (BEAKER) (test 4.0 meq/L 3.5-5.1 cmzc=100) CHLORIDE (BEAKER) (test 120 meq/L 98-107 ensh=901) CO2 (BEAKER) (test 20 meq/L 22-29 gnzm=564) BLOOD UREA NITROGEN 8 mg/dL 7-21 (BEAKER) (test csnj=554) CREATININE (BEAKER) (test 0.64 mg/dL 0.57-1.25 rtao=911) GLUCOSE RANDOM (BEAKER) 147 mg/dL 70-105 (test siez=309) CALCIUM (BEAKER) (test 7.3 mg/dL 8.4-10.2 jzin=581) EGFR (BEAKER) (test 121 mL/min/1.73 sq m ESTIMATED GFR IS NOT pnos=9065) ACCURATE CREATININE CLEARANCE IN PREDICTING GLOMERULAR FILTRATION RATE. ESTIMATED GFR IS NOT APPLICABLE FOR DIALYSIS PATIENTS. Laundry Manager ID - WILLOW [id number] 05:37:00 Test Item Value Reference Range Comments PHOSPHORUS (BEAKER) (test comx=439) 2.5 mg/dL 2.3-4.7 Laundry Manager ID - WILLOW [id number] 05:37:00 Test Item Value Reference Range Comments MAGNESIUM (BEAKER) (test dxls=997) 1.9 mg/dL 1.6-2.6 Laundry Manager ID - WILLOW WRETICULOCYTE [id number] 05:03:00 Test Item Value Reference Range Comments RETICULOCYTE COUNT PCT (BEAKER) (test yphd=787) 4.7 % 0.5-1.8 Laundry Manager ID - [id number]/[id number] 05:02:00 Test Item Value Reference Range Comments PROTIME (BEAKER) (test bsbt=718) 18.7 seconds 11.9-14.2 INR (BEAKER) (test nmbt=305) 1.6 <=5.9 PARTIAL THROMBOPLASTIN TIME (BEAKER) (test 38.5 seconds 22.5-36.0 vcrl=192) Effective 12/22/2018: PT Reference Range ChangeNew: 11.9-14.2 Previous: 11.7- 14.7RECOMMENDED COUMADIN/WARFARIN INR THERAPY RANGESSTANDARD DOSE: 2.0-3.0 Includes: PROPHYLAXIS for venous thrombosis, systemic embolization; TREATMENT for venous thrombosis and/or pulmonary embolus.HIGH RISK: Target INR is2.5-3.5 for patients wiht mechanical heart valves.[id number] 05:01:00 Test Item Value Reference Range Comments FIBRINOGEN LEVEL (BEAKER) (test sgjk=527) 241 mg/dl 225-434 BLOOD [id number] 01:00:00 Test Item Value Reference Range Comments CULTURE (BEAKER) (test uuno=7132) No growth in 5 days HEMOGLOBIN AND [id number] 23:36:00 Test Item Value Reference Range Comments HEMOGLOBIN (BEAKER) (test izwy=286) 7.4 GM/DL 13.7-17.5 HEMATOCRIT (BEAKER) (test mysn=700) 23.7 % 40.1-51.0 Laundry Manager ID - 6000BLOOD [id number] 22:00:00 Test Item Value Reference Range Comments CULTURE (BEAKER) (test kzkg=7730) No growth in 5 days POCT-GLUCOSE [id number] 17:27:00 Test Item Value Reference Range Comments POC-GLUCOSE METER (BEAKER) 160 mg/dL 70-110 : TESTED AT [address] (test nndp=8409) [place] [address]: Laundry Manager/Staffing And Scheduling Coordinator [id number] for Bethany Cardoso HEMOGLOBIN AND [id number] 17:27:00 Test Item Value Reference Range Comments HEMOGLOBIN (BEAKER) (test dhgn=430) 6.6 GM/DL 13.7-17.5 HEMATOCRIT (BEAKER) (test wvtl=969) 21.5 % 40.1-51.0 Laundry Manager ID - [id number] 16:31:00 Test Item Value Reference Range Comments POTASSIUM (BEAKER) (test ggks=013) 3.7 meq/L 3.5-5.1 Laundry Manager ID - HIREN [id number] 16:31:00 Test Item Value Reference Range Comments MAGNESIUM (BEAKER) (test ynoc=131) 2.3 mg/dL 1.6-2.6 Laundry Manager ID - HIREN FHEMOGLOBIN AND [id number] 16:12:00 Test Item Value Reference Range Comments HEMOGLOBIN (BEAKER) (test nevg=789) 6.6 GM/DL 13.7-17.5 HEMATOCRIT (BEAKER) (test lspv=803) 21.9 % 40.1-51.0 Laundry Manager ID - 6000POCT-GLUCOSE [id number] 13:14:00 Test Item Value Reference Range Comments POC-GLUCOSE METER (BEAKER) 141 mg/dL 70-110 : TESTED AT [address] (test wpoz=0269) [place] [address]: Laundry Manager/Staffing And Scheduling Coordinator [id number] for Bethany Cardoso SPUTUM CULTURE + GRAM [id number] 12:54:00 Test Item Value Reference Range Comments CULTURE (BEAKER) (test <1+ Normal respiratory whitney jxxe=9648) present GRAM STAIN RESULT (BEAKER) 2+ WBCs (test rmqh=6304) GRAM STAIN RESULT (BEAKER) 10-25/LPF epithelial cells (test rwtt=51559) GRAM STAIN RESULT (BEAKER) No organisms seen (test aqnq=55369) CBC W/PLT COUNT & AUTO [id number] 10:03:00 Test Item Value Reference Range Comments WHITE BLOOD CELL COUNT (BEAKER) (test blok=262) 5.8 K/ L 3.5-10.5 RED BLOOD CELL COUNT (BEAKER) (test hhtf=871) 2.42 M/ L 4.63-6.08 HEMOGLOBIN (BEAKER) (test dsmn=595) 7.0 GM/DL 13.7-17.5 HEMATOCRIT (BEAKER) (test vwjp=383) 22.6 % 40.1-51.0 MEAN CORPUSCULAR VOLUME (BEAKER) (test cufq=795) 93.4 fL 79.0-92.2 MEAN CORPUSCULAR HEMOGLOBIN (BEAKER) (test 28.9 pg 25.7-32.2 wbjm=359) MEAN CORPUSCULAR HEMOGLOBIN CONC (BEAKER) (test 31.0 GM/DL 32.3-36.5 itmv=354) RED CELL DISTRIBUTION WIDTH (BEAKER) (test 21.3 % 11.6-14.4 jrzg=357) PLATELET COUNT (BEAKER) (test cdwk=357) 54 K/CU MM 150-450 MEAN PLATELET VOLUME (BEAKER) (test knht=938) 10.9 fL 9.4-12.4 NUCLEATED RED BLOOD CELLS (BEAKER) (test 0 /100 WBC 0-0 vpta=964) (CELLAVISION MANUAL DIFF)2019-08-10 10:03:00 Test Item Value Reference Range Comments NEUTROPHILS - REL (CELLAVISION)(BEAKER) (test 75 % wrux=0276) LYMPHOCYTES - REL (CELLAVISION)(BEAKER) (test 14 % nhxv=5989) MONOCYTES - REL (CELLAVISION)(BEAKER) (test 3 % loyh=4157) EOSINOPHILS - REL (CELLAVISION)(BEAKER) (test 5 % klel=2177) BASOPHILS - REL (CELLAVISION)(BEAKER) (test 1 % akrv=2593) BANDS - REL (CELLAVISION)(BEAKER) (test vpyq=5991) 2 % 0-10 NEUTROPHILS - ABS (CELLAVISION)(BEAKER) (test 4.35 K/ul 1.78-5.38 mlmj=9225) LYMPHOCYTES - ABS (CELLAVISION)(BEAKER) (test 0.81 K/ul 1.32-3.57 ohmx=4232) MONOCYTES - ABS (CELLAVISION)(BEAKER) (test 0.17 K/uL 0.30-0.82 kgkj=2364) EOSINOPHILS - ABS (CELLAVISION)(BEAKER) (test 0.29 K/uL 0.04-0.54 gpki=9860) BASOPHILS - ABS (CELLAVISION)(BEAKER) (test 0.06 K/uL 0.01-0.08 utuc=6811) BANDS - ABS (CELLAVISION)(BEAKER) (test xjxk=4152) 0.12 K/uL 0.00-0.80 TOTAL COUNTED (BEAKER) (test nqqz=9760) 100 RBC MORPHOLOGY (BEAKER) (test brfi=505) Normal WBC MORPHOLOGY (BEAKER) (test tzfr=268) Normal PLT MORPHOLOGY (BEAKER) (test cbwl=731) Normal POLYCHROMATOPHILLIC RBCS(BEAKER) (test upeh=199) 1+ few ARTIFACT (CELLAVISION)(BEAKER) (test bkgm=7325) Present PLATELET CONCENTRATION (CELLAVISION)(BEAKER) (test Decreased ftkm=6569) Laundry Manager ID - Aruan OverholtUser comments: Slide comments:HEPATITIS B SURFACE [id number] 07:03:00 Test Item Value Reference Range Comments HEPATITIS B SURFACE ANTIBODY (BEAKER) (test < mIU/mL <8.0 bllv=088) Laundry Manager ID - DBALPHA FETOPROTEIN (AFP), TUMOR [id number] 07:02:00 Test Item Value Reference Range Comments ALPHA-FETOPROTEIN (BEAKER) (test tttx=9588) 1147.2 ng/mL <10.0 Laundry Manager ID - DBHEPATITIS B CORE ANTIBODY, [id number] 07:02:00 Test Item Value Reference Range Comments HEPATITIS B CORE TOTAL ANTIBODY (BEAKER) (test Nonreactive Nonreactive qbib=339) Laundry Manager ID - DBPOCT-GLUCOSE [id number] 06:28:00 Test Item Value Reference Range Comments POC-GLUCOSE METER (BEAKER) 171 mg/dL 70-110 : TESTED AT [facility] [address] [facility] (test mtox=9087) [facility], [id number]: Laundry Manager/Staffing And Scheduling Coordinator [id number] for [facility] BASIC METABOLIC [id number] 05:24:00 Test Item Value Reference Range Comments SODIUM (BEAKER) (test 149 meq/L 136-145 ugno=784) POTASSIUM (BEAKER) (test 3.3 meq/L 3.5-5.1 wbvi=905) CHLORIDE (BEAKER) (test 124 meq/L 98-107 mact=513) CO2 (BEAKER) (test 22 meq/L 22-29 dfig=240) BLOOD UREA NITROGEN 8 mg/dL 7-21 (BEAKER) (test ztly=905) CREATININE (BEAKER) (test 0.76 mg/dL 0.57-1.25 quoi=217) GLUCOSE RANDOM (BEAKER) 170 mg/dL 70-105 (test cxoz=947) CALCIUM (BEAKER) (test 7.4 mg/dL 8.4-10.2 adwn=721) EGFR (BEAKER) (test 99 mL/min/1.73 sq m ESTIMATED GFR IS NOT eymj=6923) ACCURATE CREATININE CLEARANCE IN PREDICTING GLOMERULAR FILTRATION RATE. ESTIMATED GFR IS NOT APPLICABLE FOR DIALYSIS PATIENTS. Laundry Manager ID - [id number] 05:14:00 Test Item Value Reference Range Comments PHOSPHORUS (BEAKER) (test ixdd=510) 2.6 mg/dL 2.3-4.7 Laundry Manager ID - [id number] 05:14:00 Test Item Value Reference Range Comments MAGNESIUM (BEAKER) (test pics=562) 2.0 mg/dL 1.6-2.6 Laundry Manager ID - LARAD, CHEST, 1 VIEW, NON [id number] 05:09:00Reason for exam:- >intubatedShould this be performed at the bedside?->YesFINAL REPORT RAD, CHEST, 1 VIEW, NON DEPT INDICATION: intubated COMPARISON: Prior day's exam FINDINGS: Portable frontal view of the chest. IMPRESSION: Support Lines: Stable. Lungs and pleura: No new airspace consolidation. No pleural effusion. No pneumothorax.Heart and mediastinum: Stable contours. Stable surgical changes.Additional findings: None. Signed: Kathe Bautistaepilir Verified Date/Time: 08/10/2019 05:09:12 [id number] 05:02:00 Test Item Value Reference Range Comments PROTIME (BEAKER) (test yyxr=115) 20.3 seconds 11.9-14.2 INR (BEAKER) (test tynt=712) 1.8 <=5.9 PARTIAL THROMBOPLASTIN TIME (BEAKER) (test 44.0 seconds 22.5-36.0 lbhg=004) Effective 12/22/2018: PT Reference Range ChangeNew: 11.9-14.2 Previous: 11.7- 14.7RECOMMENDED COUMADIN/WARFARIN INR THERAPY RANGESSTANDARD DOSE: 2.0-3.0 Includes: PROPHYLAXIS for venous thrombosis, systemic embolization; TREATMENT for venous thrombosis and/or pulmonary embolus.HIGH RISK: Target INR is2.5-3.5 for patients wiht mechanical heart valves.[id number] 04:46:00 Test Item Value Reference Range Comments AMMONIA (BEAKER) (test skwl=460) 18 mol/L 18-72 Laundry Manager ID - LABLOOD GAS, [id number] 04:29:00 Test Item Value Reference Range Comments PH ARTERIAL (BEAKER) (test lwwk=235) 7.42 7.35-7.45 PCO2 ARTERIAL (BEAKER) (test ngxh=791) 34 mmHg 35-45 PO2 ARTERIAL (BEAKER) (test xtsb=255) 41 mmHg 80-90 O2 SATURATION ARTERIAL (BEAKER) (test awam=525) 78.2 % 96.0-97.0 HCO3 ARTERIAL (BEAKER) (test eyeo=104) 21 mmol/L 21-29 BASE EXCESS ARTERIAL (BEAKER) (test dehg=978) -2.7 mmol/L -2.0-3.0 PATIENT TEMPERATURE (BEAKER) (test mblu=6311) 37.0 C FIO2 (BEAKER) (test aycz=1686) 30.0 % POCT-GLUCOSE [id number] 00:25:00 Test Item Value Reference Range Comments POC-GLUCOSE METER (BEAKER) 155 mg/dL 70-110 : TESTED AT [facility] [address] [facility] (test kljt=1302) [place] [id number]: Laundry Manager/Staffing And Scheduling Coordinator [id number] for [facility] HEMOGLOBIN AND [id number] 21:48:00 Test Item Value Reference Range Comments HEMOGLOBIN (BEAKER) (test ljwm=002) 7.0 GM/DL 13.7-17.5 HEMATOCRIT (BEAKER) (test otjq=993) 22.7 % 40.1-51.0 Laundry Manager ID - 6000POCT-GLUCOSE [id number] 18:49:00 Test Item Value Reference Range Comments POC-GLUCOSE METER (BEAKER) 139 mg/dL 70-110 : TESTED AT [place] [id number] [facility] (test btcn=4899) [facility], [address]: Laundry Manager/Staffing And Scheduling Coordinator [id number] for Bethany Cardoso BASIC METABOLIC [id number] 14:41:00 Test Item Value Reference Range Comments SODIUM (BEAKER) (test 149 meq/L 136-145 xijr=194) POTASSIUM (BEAKER) (test 3.7 meq/L 3.5-5.1 npmt=231) CHLORIDE (BEAKER) (test 126 meq/L 98-107 bicm=824) CO2 (BEAKER) (test 21 meq/L 22-29 nuiy=748) BLOOD UREA NITROGEN 10 mg/dL 7-21 (BEAKER) (test wveu=958) CREATININE (BEAKER) (test 0.69 mg/dL 0.57-1.25 dtjl=686) GLUCOSE RANDOM (BEAKER) 158 mg/dL 70-105 (test idmv=663) CALCIUM (BEAKER) (test 7.2 mg/dL 8.4-10.2 sxqb=875) EGFR (BEAKER) (test 111 mL/min/1.73 sq m ESTIMATED GFR IS NOT spcz=8766) ACCURATE CREATININE CLEARANCE IN PREDICTING GLOMERULAR FILTRATION RATE. ESTIMATED GFR IS NOT APPLICABLE FOR DIALYSIS PATIENTS. Laundry Manager ID - ALOK CHEMOGLOBIN AND [id number] 13:56:00 Test Item Value Reference Range Comments HEMOGLOBIN (BEAKER) (test anof=736) 7.5 GM/DL 13.7-17.5 HEMATOCRIT (BEAKER) (test vygt=270) 24.2 % 40.1-51.0 Laundry Manager ID - 6000POCT-GLUCOSE [id number] 12:24:00 Test Item Value Reference Range Comments POC-GLUCOSE METER (BEAKER) 162 mg/dL 70-110 : TESTED AT [facility] [address] [facility] (test ukou=0816) [facility], [id number]: Laundry Manager/Staffing And Scheduling Coordinator [id number] for Bethany Cardoso BASIC METABOLIC [id number] 06:02:00 Test Item Value Reference Range Comments SODIUM (BEAKER) (test 152 meq/L 136-145 kjfl=300) POTASSIUM (BEAKER) (test 3.4 meq/L 3.5-5.1 trpd=806) CHLORIDE (BEAKER) (test 128 meq/L 98-107 zmle=257) CO2 (BEAKER) (test 22 meq/L 22-29 fdsj=833) BLOOD UREA NITROGEN 10 mg/dL 7-21 (BEAKER) (test ixiv=115) CREATININE (BEAKER) (test 0.79 mg/dL 0.57-1.25 xdzd=194) GLUCOSE RANDOM (BEAKER) 141 mg/dL 70-105 (test ujgi=292) CALCIUM (BEAKER) (test 7.6 mg/dL 8.4-10.2 symx=371) EGFR (BEAKER) (test 95 mL/min/1.73 sq m ESTIMATED GFR IS NOT ukwu=2946) ACCURATE CREATININE CLEARANCE IN PREDICTING GLOMERULAR FILTRATION RATE. ESTIMATED GFR IS NOT APPLICABLE FOR DIALYSIS PATIENTS. Laundry Manager ID - [id number] 06:01:00 Test Item Value Reference Range Comments PHOSPHORUS (BEAKER) (test eajl=187) 1.9 mg/dL 2.3-4.7 Laundry Manager ID - [id number] 06:01:00 Test Item Value Reference Range Comments MAGNESIUM (BEAKER) (test jalh=185) 1.8 mg/dL 1.6-2.6 Laundry Manager ID - LAPOCT-GLUCOSE [id number] 06:00:00 Test Item Value Reference Range Comments POC-GLUCOSE METER (BEAKER) 139 mg/dL 70-110 : TESTED AT [facility] [address] (test dvve=3904) [facility], [address]: Laundry Manager/Staffing And Scheduling Coordinator [id number] for [facility] CBC W/PLT COUNT & AUTO [id number] 05:57:00 Test Item Value Reference Range Comments WHITE BLOOD CELL COUNT (BEAKER) (test jpqd=773) 5.4 K/ L 3.5-10.5 RED BLOOD CELL COUNT (BEAKER) (test imrr=223) 2.67 M/ L 4.63-6.08 HEMOGLOBIN (BEAKER) (test yyvi=552) 7.7 GM/DL 13.7-17.5 HEMATOCRIT (BEAKER) (test fyuu=863) 24.3 % 40.1-51.0 MEAN CORPUSCULAR VOLUME (BEAKER) (test pusn=657) 91.0 fL 79.0-92.2 MEAN CORPUSCULAR HEMOGLOBIN (BEAKER) (test 28.8 pg 25.7-32.2 smdw=781) MEAN CORPUSCULAR HEMOGLOBIN CONC (BEAKER) (test 31.7 GM/DL 32.3-36.5 lqut=097) RED CELL DISTRIBUTION WIDTH (BEAKER) (test 21.1 % 11.6-14.4 djjl=338) PLATELET COUNT (BEAKER) (test ditr=740) 60 K/CU MM 150-450 MEAN PLATELET VOLUME (BEAKER) (test npll=248) 10.1 fL 9.4-12.4 NUCLEATED RED BLOOD CELLS (BEAKER) (test 0 /100 WBC 0-0 qlhe=101) NEUTROPHILS RELATIVE PERCENT (BEAKER) (test 58 % rxrm=898) LYMPHOCYTES RELATIVE PERCENT (BEAKER) (test 18 % ewjn=713) MONOCYTES RELATIVE PERCENT (BEAKER) (test 20 % cfep=177) EOSINOPHILS RELATIVE PERCENT (BEAKER) (test 3 % mfyl=870) BASOPHILS RELATIVE PERCENT (BEAKER) (test 0 % ntkd=090) NEUTROPHILS ABSOLUTE COUNT (BEAKER) (test 3.12 K/ L 1.78-5.38 vypv=510) LYMPHOCYTES ABSOLUTE COUNT (BEAKER) (test 0.97 K/ L 1.32-3.57 rcnx=681) MONOCYTES ABSOLUTE COUNT (BEAKER) (test cthu=893) 1.07 K/ L 0.30-0.82 EOSINOPHILS ABSOLUTE COUNT (BEAKER) (test 0.16 K/ L 0.04-0.54 kkkb=948) BASOPHILS ABSOLUTE COUNT (BEAKER) (test wgcy=481) 0.01 K/ L 0.01-0.08 IMMATURE GRANULOCYTES-RELATIVE PERCENT (BEAKER) 0 % 0-1 (test gmma=7043) [id number] 05:46:00 Test Item Value Reference Range Comments AMMONIA (BEAKER) (test heoq=152) 25 mol/L 18-72 Laundry Manager ID - LETITIA MBLOOD GAS, [id number] 05:38:00 Test Item Value Reference Range Comments PH ARTERIAL (BEAKER) (test fgqa=550) 7.54 7.35-7.45 PCO2 ARTERIAL (BEAKER) (test rwze=845) 23 mmHg 35-45 PO2 ARTERIAL (BEAKER) (test ivjl=679) 204 mmHg 80-90 O2 SATURATION ARTERIAL (BEAKER) (test mwdt=680) 99.5 % 96.0-97.0 HCO3 ARTERIAL (BEAKER) (test fpby=683) 19 mmol/L 21-29 BASE EXCESS ARTERIAL (BEAKER) (test bcdd=549) -3.1 mmol/L -2.0-3.0 PATIENT TEMPERATURE (BEAKER) (test mwod=6283) 37.0 C FIO2 (BEAKER) (test ourk=5103) 40.0 % [id number] 05:34:00 Test Item Value Reference Range Comments FIBRINOGEN LEVEL (BEAKER) (test eres=402) 170 mg/dl 225-434 [id number] 05:34:00 Test Item Value Reference Range Comments PROTIME (BEAKER) (test hnnj=624) 23.0 seconds 11.9-14.2 INR (BEAKER) (test bcrv=048) 2.1 <=5.9 PARTIAL THROMBOPLASTIN TIME (BEAKER) (test 36.5 seconds 22.5-36.0 isbe=353) Effective 12/22/2018: PT Reference Range ChangeNew: 11.9-14.2 Previous: 11.7- 14.7RECOMMENDED COUMADIN/WARFARIN INR THERAPY RANGESSTANDARD DOSE: 2.0-3.0 Includes: PROPHYLAXIS for venous thrombosis, systemic embolization; TREATMENT for venous thrombosis and/or pulmonary embolus.HIGH RISK: Target INR is2.5-3.5 for patients wiht mechanical heart valves.RAD, CHEST, 1 VIEW, NON [id number] 04:21:00Reason for exam:->intubatedShould this be performed at the bedside ?->YesFINAL REPORT RAD, CHEST, 1 VIEW, NON DEPT INDICATION: intubated COMPARISON: Prior day's exam FINDINGS: Portable frontal view of the chest. IMPRESSION: Support Lines: Stable. Lungs and pleura: No new airspace consolidation or sizable effusion. No pneumothorax.Heart and mediastinum: Stable contours. Additional findings: None. Signed: Kathe Bautista MDReport Verified Date/Time: 08/09/2019 04:21:11 POCT-GLUCOSE [id number] 00:18: 00 Test Item Value Reference Range Comments POC-GLUCOSE METER (BEAKER) 160 mg/dL 70-110 : TESTED AT [address] (test dcyk=9622) [facility], [id number]: Laundry Manager/Staffing And Scheduling Coordinator [id number] for JOSE DAVID TYLER HEMOGLOBIN AND [id number] 23:24:00 Test Item Value Reference Range Comments HEMOGLOBIN (BEAKER) (test eclv=070) 8.1 GM/DL 13.7-17.5 HEMATOCRIT (BEAKER) (test uwde=101) 26.2 % 40.1-51.0 Laundry Manager ID - 6000POCT-GLUCOSE [id number] 20:19:00 Test Item Value Reference Range Comments POC-GLUCOSE METER (BEAKER) 147 mg/dL 70-110 : TESTED AT [address] (test osag=2139) [facility], [id number]: Laundry Manager/Staffing And Scheduling Coordinator [id number] for BRITTANY BALDWIN TSH/FREE T4 IF [id number] 11:50:00 Test Item Value Reference Range Comments THYROID STIMULATING HORMONE (BEAKER) (test 0.38 uIU/mL 0.35-4.94 ousw=374) Laundry Manager ID - LETITIA MHEMOGLOBIN AND [id number] 11:07:00 Test Item Value Reference Range Comments HEMOGLOBIN (BEAKER) (test mxhy=063) 8.1 GM/DL 13.7-17.5 HEMATOCRIT (BEAKER) (test khwc=411) 25.4 % 40.1-51.0 Laundry Manager ID - [id number], CHEST, 1 VIEW, NON [id number] 09:15:00Reason for exam :->intubatedShould this be performed at the bedside?->YesFINAL REPORT Comparison: 08/07/2019 TECHNIQUE: Single view of the chest FINDINGS: Interval removal right internal jugular central line. Remaining support lines and tubes are stable. Mild prominence of interstitial markings otherwise lungs are grossly clear. No large effusions or pneumothorax. Previously described lucency along the left heart border, possible pneumomediastinum, is less evident on the current exam. Signed: Fredi Gabriel MDReport Verified Date/Time: 08/08/2019 09:15:50 Reading Location: [facility] Radiology Reading Room Electronically signed by: FREDI GABRIEL M.D.on 08/08 09:15 AMBASIC METABOLIC [id number] 07:09:00 Test Item Value Reference Range Comments SODIUM (BEAKER) (test 148 meq/L 136-145 grnt=277) POTASSIUM (BEAKER) (test 3.2 meq/L 3.5-5.1 luuo=097) CHLORIDE (BEAKER) (test 125 meq/L 98-107 sqka=186) CO2 (BEAKER) (test 16 meq/L 22-29 ohou=211) BLOOD UREA NITROGEN 16 mg/dL 7-21 (BEAKER) (test sxqx=254) CREATININE (BEAKER) (test 0.81 mg/dL 0.57-1.25 vwbn=675) GLUCOSE RANDOM (BEAKER) 135 mg/dL 70-105 (test ludn=477) CALCIUM (BEAKER) (test 7.6 mg/dL 8.4-10.2 qmfn=207) EGFR (BEAKER) (test 92 mL/min/1.73 sq m ESTIMATED GFR IS NOT atwk=0782) ACCURATE CREATININE CLEARANCE IN PREDICTING GLOMERULAR FILTRATION RATE. ESTIMATED GFR IS NOT APPLICABLE FOR DIALYSIS PATIENTS. Laundry Manager ID - SANDYCAROLINEpecimen slightly [id number] 07:07:00 Test Item Value Reference Range Comments PHOSPHORUS (BEAKER) (test xkke=132) 2.5 mg/dL 2.3-4.7 Laundry Manager ID - [id number] 07:07:00 Test Item Value Reference Range Comments MAGNESIUM (BEAKER) (test cdzj=341) 2.0 mg/dL 1.6-2.6 Laundry Manager ID - KENNPOCT-GLUCOSE [id number] 06:56:00 Test Item Value Reference Range Comments POC-GLUCOSE METER (BEAKER) 167 mg/dL 70-110 : TESTED AT [facility] [address] [facility] (test pbne=5741) [facility], [address]: Laundry Manager/Staffing And Scheduling Coordinator [id number] for IVAN LAI [id number] 05:46:00 Test Item Value Reference Range Comments AMMONIA (BEAKER) (test pjot=576) 70 mol/L 18-72 Laundry Manager ID - SANDYNBLOOD GAS, [id number] 04:22:00 Test Item Value Reference Range Comments PH ARTERIAL (BEAKER) (test zgsp=178) 7.48 7.35-7.45 PCO2 ARTERIAL (BEAKER) (test deth=410) 23 mmHg 35-45 PO2 ARTERIAL (BEAKER) (test csub=908) 165 mmHg 80-90 O2 SATURATION ARTERIAL (BEAKER) (test mwgd=729) 99.2 % 96.0-97.0 HCO3 ARTERIAL (BEAKER) (test kpev=545) 17 mmol/L 21-29 BASE EXCESS ARTERIAL (BEAKER) (test hdpi=739) -5.3 mmol/L -2.0-3.0 PATIENT TEMPERATURE (BEAKER) (test jhgy=9430) 37.9 C FIO2 (BEAKER) (test kirg=3607) 40.0 % [id number] 04:05:00 Test Item Value Reference Range Comments FIBRINOGEN LEVEL (BEAKER) (test iiqb=265) 169 mg/dl 225-434 CBC W/PLT COUNT & AUTO [id number] 04:01:00 Test Item Value Reference Range Comments WHITE BLOOD CELL COUNT (BEAKER) (test zbix=011) 6.9 K/ L 3.5-10.5 RED BLOOD CELL COUNT (BEAKER) (test pynw=508) 3.25 M/ L 4.63-6.08 HEMOGLOBIN (BEAKER) (test pmxz=539) 9.5 GM/DL 13.7-17.5 HEMATOCRIT (BEAKER) (test vxtv=391) 29.3 % 40.1-51.0 MEAN CORPUSCULAR VOLUME (BEAKER) (test xjzc=814) 90.2 fL 79.0-92.2 MEAN CORPUSCULAR HEMOGLOBIN (BEAKER) (test 29.2 pg 25.7-32.2 mzrk=212) MEAN CORPUSCULAR HEMOGLOBIN CONC (BEAKER) (test 32.4 GM/DL 32.3-36.5 jbwy=540) RED CELL DISTRIBUTION WIDTH (BEAKER) (test 20.9 % 11.6-14.4 kiyg=624) PLATELET COUNT (BEAKER) (test owpz=373) 80 K/CU MM 150-450 MEAN PLATELET VOLUME (BEAKER) (test qgfn=413) 10.1 fL 9.4-12.4 NUCLEATED RED BLOOD CELLS (BEAKER) (test 0 /100 WBC 0-0 caha=293) NEUTROPHILS RELATIVE PERCENT (BEAKER) (test 59 % yggv=641) LYMPHOCYTES RELATIVE PERCENT (BEAKER) (test 19 % inrb=727) MONOCYTES RELATIVE PERCENT (BEAKER) (test 18 % cteq=281) EOSINOPHILS RELATIVE PERCENT (BEAKER) (test 3 % rrbq=535) BASOPHILS RELATIVE PERCENT (BEAKER) (test 0 % fwua=441) NEUTROPHILS ABSOLUTE COUNT (BEAKER) (test 4.05 K/ L 1.78-5.38 gozl=070) LYMPHOCYTES ABSOLUTE COUNT (BEAKER) (test 1.32 K/ L 1.32-3.57 mkfw=387) MONOCYTES ABSOLUTE COUNT (BEAKER) (test waqt=309) 1.27 K/ L 0.30-0.82 EOSINOPHILS ABSOLUTE COUNT (BEAKER) (test 0.23 K/ L 0.04-0.54 fcwx=162) BASOPHILS ABSOLUTE COUNT (BEAKER) (test vfoz=649) 0.03 K/ L 0.01-0.08 IMMATURE GRANULOCYTES-RELATIVE PERCENT (BEAKER) 0 % 0-1 (test ecef=6965) [id number] 04:00:00 Test Item Value Reference Range Comments PROTIME (BEAKER) (test qnbw=367) 20.8 seconds 11.9-14.2 INR (BEAKER) (test tgny=860) 1.8 <=5.9 PARTIAL THROMBOPLASTIN TIME (BEAKER) (test 35.0 seconds 22.5-36.0 mdes=934) Effective 12/22/2018: PT Reference Range ChangeNew: 11.9-14.2 Previous: 11.7- 14.7RECOMMENDED COUMADIN/WARFARIN INR THERAPY RANGESSTANDARD DOSE: 2.0-3.0 Includes: PROPHYLAXIS for venous thrombosis, systemic embolization; TREATMENT for venous thrombosis and/or pulmonary embolus.HIGH RISK: Target INR is2.5-3.5 for patients wiht mechanical heart valves.POCT-GLUCOSE [id number] 01:33:00 Test Item Value Reference Range Comments POC-GLUCOSE METER (BEAKER) 144 mg/dL 70-110 : TESTED AT [facility] [address] (test zzrr=2409) [facility], [address]: Laundry Manager/Staffing And Scheduling Coordinator [id number] for IVAN LAI (CELLAVISION MANUAL DIFF)2019-08-07 22:37:00 Test Item Value Reference Range Comments NEUTROPHILS - REL (CELLAVISION)(BEAKER) (test 76 % wfnz=1461) LYMPHOCYTES - REL (CELLAVISION)(BEAKER) (test 5 % csbt=5811) MONOCYTES - REL (CELLAVISION)(BEAKER) (test 9 % uefu=3328) EOSINOPHILS - REL (CELLAVISION)(BEAKER) (test 5 % ciwj=5813) BANDS - REL (CELLAVISION)(BEAKER) (test qwhs=0933) 5 % 0-10 NEUTROPHILS - ABS (CELLAVISION)(BEAKER) (test 6.69 K/ul 1.78-5.38 eyho=6367) LYMPHOCYTES - ABS (CELLAVISION)(BEAKER) (test 0.44 K/ul 1.32-3.57 qwau=1521) MONOCYTES - ABS (CELLAVISION)(BEAKER) (test 0.79 K/uL 0.30-0.82 wjmf=8062) EOSINOPHILS - ABS (CELLAVISION)(BEAKER) (test 0.44 K/uL 0.04-0.54 lllg=5768) BANDS - ABS (CELLAVISION)(BEAKER) (test cchu=7906) 0.44 K/uL 0.00-0.80 TOTAL COUNTED (BEAKER) (test gldf=6869) 100 SMUDGE CELLS (BEAKER) (test ouvc=2218) Present GIANT PLATELETS (BEAKER) (test mcav=621) Present POLYCHROMATOPHILLIC RBCS(BEAKER) (test ficw=243) 1+ few HYPOCHROMIA (BEAKER) (test qpjw=968) 1+ few ANISOCYTOSIS (BEAKER) (test xlxg=313) 1+ few POIKILOCYTES (BEAKER) (test xzgr=475) 1+ few OVALOCYTES (BEAKER) (test jlod=922) 1+ few PLATELET CONCENTRATION (CELLAVISION)(BEAKER) (test Decreased gwiu=1847) Laundry Manager ID - tricia reillyJennifer comments: Slide comments:PT/[id number] 19:32 :00 Test Item Value Reference Range Comments PROTIME (BEAKER) (test ghix=987) 21.2 seconds 11.9-14.2 INR (BEAKER) (test lkij=123) 1.9 <=5.9 PARTIAL THROMBOPLASTIN TIME (BEAKER) (test 33.0 seconds 22.5-36.0 ttvy=918) Effective 12/22/2018: PT Reference Range ChangeNew: 11.9-14.2 Previous: 11.7- 14.7RECOMMENDED COUMADIN/WARFARIN INR THERAPY RANGESSTANDARD DOSE: 2.0-3.0 Includes: PROPHYLAXIS for venous thrombosis, systemic embolization; TREATMENT for venous thrombosis and/or pulmonary embolus.HIGH RISK: Target INR is2.5-3.5 for patients wiht mechanical heart valves.[id number] 19:32:00 Test Item Value Reference Range Comments FIBRINOGEN LEVEL (BEAKER) (test qjix=328) 178 mg/dl 225-434 CBC W/PLT COUNT & AUTO [id number] 19:26:00 Test Item Value Reference Range Comments WHITE BLOOD CELL COUNT (BEAKER) (test grks=867) 8.8 K/ L 3.5-10.5 RED BLOOD CELL COUNT (BEAKER) (test hqli=478) 3.38 M/ L 4.63-6.08 HEMOGLOBIN (BEAKER) (test bxga=407) 9.7 GM/DL 13.7-17.5 HEMATOCRIT (BEAKER) (test ybhr=705) 30.2 % 40.1-51.0 MEAN CORPUSCULAR VOLUME (BEAKER) (test ycjs=837) 89.3 fL 79.0-92.2 MEAN CORPUSCULAR HEMOGLOBIN (BEAKER) (test 28.7 pg 25.7-32.2 tnuf=589) MEAN CORPUSCULAR HEMOGLOBIN CONC (BEAKER) (test 32.1 GM/DL 32.3-36.5 xmrh=734) RED CELL DISTRIBUTION WIDTH (BEAKER) (test 21.1 % 11.6-14.4 idzi=390) PLATELET COUNT (BEAKER) (test svrh=586) 89 K/CU MM 150-450 MEAN PLATELET VOLUME (BEAKER) (test dknw=634) 9.8 fL 9.4-12.4 NUCLEATED RED BLOOD CELLS (BEAKER) (test 0 /100 WBC 0-0 quvd=284) BLOOD GAS, [id number] 19:21:00 Test Item Value Reference Range Comments PH ARTERIAL (BEAKER) (test tqkg=935) 7.41 7.35-7.45 PCO2 ARTERIAL (BEAKER) (test qzbg=004) 29 mmHg 35-45 PO2 ARTERIAL (BEAKER) (test ysap=352) 71 mmHg 80-90 O2 SATURATION ARTERIAL (BEAKER) (test rukp=839) 94.6 % 96.0-97.0 HCO3 ARTERIAL (BEAKER) (test dnby=031) 18 mmol/L 21-29 BASE EXCESS ARTERIAL (BEAKER) (test bgpc=480) -6.2 mmol/L -2.0-3.0 PATIENT TEMPERATURE (BEAKER) (test bfbo=8119) 37.0 C FIO2 (BEAKER) (test qvbu=5923) 40.0 % HEMOGLOBIN AND [id number] 19:21:00 Test Item Value Reference Range Comments HEMOGLOBIN (BEAKER) (test yvkx=340) 9.7 GM/DL 13.7-17.5 HEMATOCRIT (BEAKER) (test beqf=481) 30.2 % 40.1-51.0 Laundry Manager ID - 6000TROPONIN [id number] 18:56:00 Test Item Value Reference Range Comments TROPONIN I (BEAKER) (test jjka=249) 4.92 ng/mL 0.00-0.03 Troponin I (TnI) levels must [...] failure, acidosis, acute neurological disease, and persistent tachyarrhythmia.Laundry Manager ID - HIREN FOperator ID - HIREN SAMUELD, CHEST, 1 VIEW, NON [id number] 18:31:00Post-intubationReason for exam:->post intubationShould this be performed at the bedside?-> YesFINAL REPORT RAD, CHEST, 1 VIEW, NON DEPT INDICATION: post intubation COMPARISON: Prior day's exam FINDINGS: Portable frontal view of the chest. IMPRESSION: Support Lines: NG tube descends below the diaphragm. ET tube tip is 3 cm superior to the dee. Right central cathetertip overlies the SVC.Lungs and pleura: Unchanged airspace and pleural opacities. No pneumothorax.Heart and mediastinum: Interval development of trace pneumomediastinum along the left heart border. Correlation with history of recent surgery is suggested..Additional findings: None. Signed: Priti Segal MDReport Verified Date/Time: 08/07/2019 18:31:13 Reading Location: [address] Neuro Reading Room CBC (HEMOGRAM ONLY)2019-08-07 16:29:00 Test Item Value Reference Range Comments WHITE BLOOD CELL COUNT (BEAKER) (test hjzx=885) 7.5 K/ L 3.5-10.5 RED BLOOD CELL COUNT (BEAKER) (test frtb=174) 3.13 M/ L 4.63-6.08 HEMOGLOBIN (BEAKER) (test wmur=539) 9.0 GM/DL 13.7-17.5 HEMATOCRIT (BEAKER) (test dirq=919) 27.4 % 40.1-51.0 MEAN CORPUSCULAR VOLUME (BEAKER) (test hwod=492) 87.5 fL 79.0-92.2 MEAN CORPUSCULAR HEMOGLOBIN (BEAKER) (test 28.8 pg 25.7-32.2 bbtu=762) MEAN CORPUSCULAR HEMOGLOBIN CONC (BEAKER) (test 32.8 GM/DL 32.3-36.5 cdml=731) RED CELL DISTRIBUTION WIDTH (BEAKER) (test 20.8 % 11.6-14.4 rwxz=789) PLATELET COUNT (BEAKER) (test miua=359) 81 K/CU MM 150-450 MEAN PLATELET VOLUME (BEAKER) (test myxz=696) 9.4 fL 9.4-12.4 NUCLEATED RED BLOOD CELLS (BEAKER) (test 0 /100 WBC 0-0 tcnj=276) TROPONIN [id number] 08:41:00 Test Item Value Reference Range Comments TROPONIN I (BEAKER) (test vasb=812) 5.37 ng/mL 0.00-0.03 Troponin I (TnI) levels must [...] failure, acidosis, acute neurological disease, and persistent tachyarrhythmia.Laundry Manager ID - HIREN FCT, BRAIN, WITHOUT [id number] 08:36:00FINAL REPORT CT, BRAIN , WITHOUT CONTRAST CLINICAL INDICATION: altered mentalstatus, hyperammonia COMPARISON: None TECHNIQUE: Noncontrast axial CT imaging of the brain and skull. DOSE REDUCTION: Dose modulation, iterative reconstruction, and/or weight -based adjustment of the mA/kV was utilized to reduce the radiation dose to as low as reasonably achievable. FINDINGS:No intracranial hemorrhage, midline shift or mass effect. Midline structures are normally developed. Mild chronic microvascular ischemic changes of the periventricular and subcortical white matter are present.Remote lacunar infarct in the left basal ganglia. No hydrocephalus. Atherosclerotic calcification ofthe intracranial internal carotid and vertebral arteries. Orbits are within normal limits. Prior bilateral lens surgery Opacification of the right maxillary sinus. 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 Correlation for sinusitis may be obtained If there is persistent clinical concern for intracranial pathology, MR examination is recommended for further characterization. Signed: Priti Segal MDReport Verified Date/Time: 08/07/2019 08:36:10 Reading Location: [facility] C013V Neuro Reading Room CBC (HEMOGRAM ONLY)2019-08-07 08:24:00 Test Item Value Reference Range Comments WHITE BLOOD CELL COUNT (BEAKER) (test cuyj=511) 6.4 K/ L 3.5-10.5 RED BLOOD CELL COUNT (BEAKER) (test vwnt=506) 3.00 M/ L 4.63-6.08 HEMOGLOBIN (BEAKER) (test xfag=571) 8.8 GM/DL 13.7-17.5 HEMATOCRIT (BEAKER) (test bmpr=606) 25.9 % 40.1-51.0 MEAN CORPUSCULAR VOLUME (BEAKER) (test ohep=577) 86.3 fL 79.0-92.2 MEAN CORPUSCULAR HEMOGLOBIN (BEAKER) (test 29.3 pg 25.7-32.2 nfca=282) MEAN CORPUSCULAR HEMOGLOBIN CONC (BEAKER) (test 34.0 GM/DL 32.3-36.5 xgjw=405) RED CELL DISTRIBUTION WIDTH (BEAKER) (test 20.3 % 11.6-14.4 fyyj=524) PLATELET COUNT (BEAKER) (test zuef=571) 70 K/CU MM 150-450 MEAN PLATELET VOLUME (BEAKER) (test yklw=860) 10.0 fL 9.4-12.4 NUCLEATED RED BLOOD CELLS (BEAKER) (test 0 /100 WBC 0-0 obpe=569) [id number] 08:22:00 Test Item Value Reference Range Comments AMMONIA (BEAKER) (test tczj=259) 69 mol/L 18-72 Laundry Manager ID - HIREN FPOCT-GLUCOSE [id number] 06:03:00 Test Item Value Reference Range Comments POC-GLUCOSE METER (BEAKER) 157 mg/dL 70-110 : TESTED AT [address] (test vghd=9575) [facility], [id number]: Laundry Manager/Staffing And Scheduling Coordinator [id number] for IVAN LAI [id number] 03:06:00 Test Item Value Reference Range Comments AMMONIA (BEAKER) (test 240 mol/L 18-72 Specimen slightly hemolyzed ciif=661) Laundry Manager ID - LETITIA MBLOOD GAS, [id number] 02:41:00 Test Item Value Reference Range Comments PH ARTERIAL (BEAKER) (test adzx=024) 7.55 7.35-7.45 PCO2 ARTERIAL (BEAKER) (test elbf=871) 20 mmHg 35-45 PO2 ARTERIAL (BEAKER) (test inmc=170) 193 mmHg 80-90 O2 SATURATION ARTERIAL (BEAKER) (test gmll=651) 99.5 % 96.0-97.0 HCO3 ARTERIAL (BEAKER) (test uomo=383) 17 mmol/L 21-29 BASE EXCESS ARTERIAL (BEAKER) (test aviv=217) -3.7 mmol/L -2.0-3.0 PATIENT TEMPERATURE (BEAKER) (test rpae=7887) 37.0 C FIO2 (BEAKER) (test qfmd=8357) 40.0 % TROPONIN [id number] 02:29:00 Test Item Value Reference Range Comments TROPONIN I (BEAKER) (test hdvv=285) 7.26 ng/mL 0.00-0.03 Troponin I (TnI) levels must [...] failure, acidosis, acute neurological disease, and persistent tachyarrhythmia.Laundry Manager ID - LETITIA MBASIC METABOLIC [id number] 02:28:00 Test Item Value Reference Range Comments SODIUM (BEAKER) (test 142 meq/L 136-145 eozn=950) POTASSIUM (BEAKER) (test 3.8 meq/L 3.5-5.1 ddxf=901) CHLORIDE (BEAKER) (test 117 meq/L 98-107 szbe=004) CO2 (BEAKER) (test 19 meq/L 22-29 eguh=544) BLOOD UREA NITROGEN 28 mg/dL 7-21 (BEAKER) (test xfrq=336) CREATININE (BEAKER) (test 0.87 mg/dL 0.57-1.25 ngcg=211) GLUCOSE RANDOM (BEAKER) 157 mg/dL 70-105 (test khob=304) CALCIUM (BEAKER) (test 7.6 mg/dL 8.4-10.2 iebg=048) EGFR (BEAKER) (test 85 mL/min/1.73 sq m ESTIMATED GFR IS NOT jivb=1634) ACCURATE CREATININE CLEARANCE IN PREDICTING GLOMERULAR FILTRATION RATE. ESTIMATED GFR IS NOT APPLICABLE FOR DIALYSIS PATIENTS. Laundry Manager ID - LETITIA MSpecimen slightly ictericLACTIC ACID, [id number] 02:05 :00 Test Item Value Reference Range Comments LACTATE BLOOD VENOUS (2) (BEAKER) (test 2.0 mmol/L 0.5-2.2 swvd=8626) Laundry Manager ID - LETITIA [id number] 02:03:00 Test Item Value Reference Range Comments MAGNESIUM (BEAKER) (test xpgb=604) 2.0 mg/dL 1.6-2.6 Laundry Manager ID - LETITIA MCBC W/PLT COUNT & AUTO [id number] 01:54:00 Test Item Value Reference Range Comments WHITE BLOOD CELL COUNT (BEAKER) (test fjob=968) 8.1 K/ L 3.5-10.5 RED BLOOD CELL COUNT (BEAKER) (test tcgp=712) 3.11 M/ L 4.63-6.08 HEMOGLOBIN (BEAKER) (test puci=737) 9.0 GM/DL 13.7-17.5 HEMATOCRIT (BEAKER) (test ofzi=273) 26.8 % 40.1-51.0 MEAN CORPUSCULAR VOLUME (BEAKER) (test upiw=075) 86.2 fL 79.0-92.2 MEAN CORPUSCULAR HEMOGLOBIN (BEAKER) (test 28.9 pg 25.7-32.2 lhuh=137) MEAN CORPUSCULAR HEMOGLOBIN CONC (BEAKER) (test 33.6 GM/DL 32.3-36.5 xotj=327) RED CELL DISTRIBUTION WIDTH (BEAKER) (test 19.9 % 11.6-14.4 dbxm=561) PLATELET COUNT (BEAKER) (test rioy=945) 73 K/CU MM 150-450 MEAN PLATELET VOLUME (BEAKER) (test guqb=389) 10.5 fL 9.4-12.4 NUCLEATED RED BLOOD CELLS (BEAKER) (test 0 /100 WBC 0-0 vjvn=972) NEUTROPHILS RELATIVE PERCENT (BEAKER) (test 66 % kulc=268) LYMPHOCYTES RELATIVE PERCENT (BEAKER) (test 15 % ique=055) MONOCYTES RELATIVE PERCENT (BEAKER) (test 17 % iorx=277) EOSINOPHILS RELATIVE PERCENT (BEAKER) (test 1 % goes=802) BASOPHILS RELATIVE PERCENT (BEAKER) (test 0 % ydao=146) NEUTROPHILS ABSOLUTE COUNT (BEAKER) (test 5.30 K/ L 1.78-5.38 gqjm=026) LYMPHOCYTES ABSOLUTE COUNT (BEAKER) (test 1.24 K/ L 1.32-3.57 jmma=967) MONOCYTES ABSOLUTE COUNT (BEAKER) (test ince=263) 1.40 K/ L 0.30-0.82 EOSINOPHILS ABSOLUTE COUNT (BEAKER) (test 0.10 K/ L 0.04-0.54 ieco=459) BASOPHILS ABSOLUTE COUNT (BEAKER) (test wukc=302) 0.01 K/ L 0.01-0.08 IMMATURE GRANULOCYTES-RELATIVE PERCENT (BEAKER) 0 % 0-1 (test lfzj=5006) CBC (HEMOGRAM ONLY)2019-08-07 01:41:00 Test Item Value Reference Range Comments WHITE BLOOD CELL COUNT (BEAKER) (test yztk=225) 8.1 K/ L 3.5-10.5 RED BLOOD CELL COUNT (BEAKER) (test hpko=709) 3.11 M/ L 4.63-6.08 HEMOGLOBIN (BEAKER) (test fzav=672) 9.0 GM/DL 13.7-17.5 HEMATOCRIT (BEAKER) (test efvs=767) 26.8 % 40.1-51.0 MEAN CORPUSCULAR VOLUME (BEAKER) (test rkae=250) 86.2 fL 79.0-92.2 MEAN CORPUSCULAR HEMOGLOBIN (BEAKER) (test 28.9 pg 25.7-32.2 pbcf=913) MEAN CORPUSCULAR HEMOGLOBIN CONC (BEAKER) (test 33.6 GM/DL 32.3-36.5 yflz=195) RED CELL DISTRIBUTION WIDTH (BEAKER) (test 19.9 % 11.6-14.4 xxdf=138) PLATELET COUNT (BEAKER) (test pgpa=647) 73 K/CU MM 150-450 MEAN PLATELET VOLUME (BEAKER) (test ardr=119) 10.5 fL 9.4-12.4 NUCLEATED RED BLOOD CELLS (BEAKER) (test 0 /100 WBC 0-0 ufmz=296) CBC (HEMOGRAM ONLY)2019-08-06 18:15:00 Test Item Value Reference Range Comments WHITE BLOOD CELL COUNT (BEAKER) (test hfyw=289) 11.0 K/ L 3.5-10.5 RED BLOOD CELL COUNT (BEAKER) (test fbjv=248) 3.23 M/ L 4.63-6.08 HEMOGLOBIN (BEAKER) (test fauh=408) 9.2 GM/DL 13.7-17.5 HEMATOCRIT (BEAKER) (test mvxg=781) 27.3 % 40.1-51.0 MEAN CORPUSCULAR VOLUME (BEAKER) (test twvf=440) 84.5 fL 79.0-92.2 MEAN CORPUSCULAR HEMOGLOBIN (BEAKER) (test 28.5 pg 25.7-32.2 qbzm=013) MEAN CORPUSCULAR HEMOGLOBIN CONC (BEAKER) (test 33.7 GM/DL 32.3-36.5 rpgw=916) RED CELL DISTRIBUTION WIDTH (BEAKER) (test 19.9 % 11.6-14.4 ibao=632) PLATELET COUNT (BEAKER) (test miyd=752) 75 K/CU MM 150-450 MEAN PLATELET VOLUME (BEAKER) (test vjoz=571) 9.7 fL 9.4-12.4 NUCLEATED RED BLOOD CELLS (BEAKER) (test 0 /100 WBC 0-0 omyd=107) RAD, ABDOMEN/KUB, 1 VIEW [id number] 12:30:00Reason for exam:->NG tube placementShould this be performed at the bedside?->YesFINAL REPORT TECHNIQUE: Single View of the Abdomen. INDICATION: NG tube placement. COMPARISON: Chest radiograph from 02/10/2019. FINDINGS/IMPRESSION: The gastric wall appears to be thickened. The tip of a NG tube overlies the gastric body. The proximal sidehole is not well visualized. However, consider advancement by approximately 5 cm. The bowel gas pattern appears nonobstructive. No acute bony abnormality. There appears to be a Urb[place] catheter over the bladder. Calcification of the aortoiliac vasculature. Signed: Monet Dimaseport Verified Date/Time: 08/06/2019 12:30:26 Reading Location: [facility] B1 C013Y CT Body Reading Room Electronically signed by: Ana SHEPPARD 08/06/2019 12:30 PMUREA NITROGEN, RANDOM [id number] 12:19:00 Test Item Value Reference Range Comments UREA NITROGEN URINE (BEAKER) (test ikdq=870) 756 mg/dL Reference Range: No NormalsOperator ID - HIREN FSODIUM, RANDOM [id number] 11:53:00 Test Item Value Reference Range Comments SODIUM URINE (BEAKER) (test ztll=038) < meq/L Reference Range: No NormalsOperator ID - HIREN FCHLORIDE, RANDOM [id number] 11:40:00 Test Item Value Reference Range Comments CHLORIDE URINE (BEAKER) (test hyhn=676) 22 meq/L Reference Range: No NormalsOperator ID - HIREN FCREATININE, RANDOM [id number] 11:40:00 Test Item Value Reference Range Comments CREATININE URINE (BEAKER) (test wdec=407) 96.4 mg/dL Reference Range: No NormalsOperator ID - HIREN FPOTASSIUM, RANDOM [id number] 11:40:00 Test Item Value Reference Range Comments POTASSIUM URINE (BEAKER) (test qxxh=250) 65.2 meq/L Reference Range: No NormalsOperator ID - HIREN FTROPONIN [id number] 08:54:00 Test Item Value Reference Range Comments TROPONIN I (BEAKER) (test arwf=590) 19.39 ng/mL 0.00-0.03 Troponin I (TnI) levels must [...] failure, acidosis, acute neurological disease, and persistent tachyarrhythmia.Laundry Manager ID - HIREN FCBC W/PLT COUNT & AUTO [id number] 06:50:00 Test Item Value Reference Range Comments WHITE BLOOD CELL COUNT (BEAKER) (test ixzg=037) 7.8 K/ L 3.5-10.5 RED BLOOD CELL COUNT (BEAKER) (test mkyg=143) 2.59 M/ L 4.63-6.08 HEMOGLOBIN (BEAKER) (test ylqu=662) 7.2 GM/DL 13.7-17.5 HEMATOCRIT (BEAKER) (test gznw=100) 22.5 % 40.1-51.0 MEAN CORPUSCULAR VOLUME (BEAKER) (test zbuh=170) 86.9 fL 79.0-92.2 MEAN CORPUSCULAR HEMOGLOBIN (BEAKER) (test 27.8 pg 25.7-32.2 owdk=256) MEAN CORPUSCULAR HEMOGLOBIN CONC (BEAKER) (test 32.0 GM/DL 32.3-36.5 hijq=915) RED CELL DISTRIBUTION WIDTH (BEAKER) (test 20.1 % 11.6-14.4 uptp=260) PLATELET COUNT (BEAKER) (test wkbn=067) 60 K/CU MM 150-450 MEAN PLATELET VOLUME (BEAKER) (test nbfu=285) 10.1 fL 9.4-12.4 NUCLEATED RED BLOOD CELLS (BEAKER) (test 0 /100 WBC 0-0 zziw=479) NEUTROPHILS RELATIVE PERCENT (BEAKER) (test 67 % mqwb=254) LYMPHOCYTES RELATIVE PERCENT (BEAKER) (test 18 % yapk=875) MONOCYTES RELATIVE PERCENT (BEAKER) (test 15 % rbcl=044) EOSINOPHILS RELATIVE PERCENT (BEAKER) (test 0 % ydhw=113) BASOPHILS RELATIVE PERCENT (BEAKER) (test 0 % fype=496) NEUTROPHILS ABSOLUTE COUNT (BEAKER) (test 5.22 K/ L 1.78-5.38 hbmk=445) LYMPHOCYTES ABSOLUTE COUNT (BEAKER) (test 1.39 K/ L 1.32-3.57 rtkf=236) MONOCYTES ABSOLUTE COUNT (BEAKER) (test pwso=681) 1.14 K/ L 0.30-0.82 EOSINOPHILS ABSOLUTE COUNT (BEAKER) (test 0.01 K/ L 0.04-0.54 zdcz=938) BASOPHILS ABSOLUTE COUNT (BEAKER) (test irox=384) 0.01 K/ L 0.01-0.08 IMMATURE GRANULOCYTES-RELATIVE PERCENT (BEAKER) 1 % 0-1 (test xuty=1487) POCT-GLUCOSE [id number] 06:03:00 Test Item Value Reference Range Comments POC-GLUCOSE METER (BEAKER) 146 mg/dL 70-110 : TESTED AT [facility] [address] (test otgb=7531) [facility] [facility] [employer], [id number]: Laundry Manager/Staffing And Scheduling Coordinator MS=[id number] for IVAN LAI [employer] MET[employer]OLIC [id number] 04:26:00 Test Item Value Reference Range Comments SODIUM (BEAKER) (test 137 meq/L 136-145 tbdn=276) POTASSIUM (BEAKER) (test 4.6 meq/L 3.5-5.1 qzyy=365) CHLORIDE (BEAKER) (test 115 meq/L 98-107 lmae=092) CO2 (BEAKER) (test 16 meq/L 22-29 fucj=497) BLOOD UREA NITROGEN 37 mg/dL 7-21 (BEAKER) (test saof=096) CREATININE (BEAKER) (test 1.36 mg/dL 0.57-1.25 iych=134) GLUCOSE RANDOM (BEAKER) 207 mg/dL 70-105 (test ivzs=495) CALCIUM (BEAKER) (test 7.1 mg/dL 8.4-10.2 ysfp=839) EGFR (BEAKER) (test 51 mL/min/1.73 sq m ESTIMATED GFR IS NOT jiwm=7910) ACCURATE CREATININE CLEARANCE IN PREDICTING GLOMERULAR FILTRATION RATE. ESTIMATED GFR IS NOT APPLICABLE FOR DIALYSIS PATIENTS. Laundry Manager ID - LETITIA [id number] 04:20:00 Test Item Value Reference Range Comments PHOSPHORUS (BEAKER) (test znxf=168) 3.7 mg/dL 2.3-4.7 Laundry Manager ID - LETITIA [id number] 04:20:00 Test Item Value Reference Range Comments MAGNESIUM (BEAKER) (test jczh=936) 1.8 mg/dL 1.6-2.6 Laundry Manager ID - LETITIA MLACTIC ACID, [id number] 04:03:00 Test Item Value Reference Range Comments LACTATE BLOOD VENOUS (2) (BEAKER) (test 2.8 mmol/L 0.5-2.2 aubw=2674) Laundry Manager ID - LETITIA MURINALYSIS W/ REFLEX URINE [id number] 02:45:00 Test Item Value Reference Range Comments COLOR (BEAKER) (test tokj=364) Yellow CLARITY (BEAKER) (test xrtp=452) Clear SPECIFIC GRAVITY UA (BEAKER) (test egwv=739) 1.023 1.001-1.035 PH UA (BEAKER) (test ueqm=662) 5.5 5.0-8.0 PROTEIN UA (BEAKER) (test bujd=687) 10 mg/dL Negative GLUCOSE UA (BEAKER) (test ildy=914) Negative Negative KETONES UA (BEAKER) (test hkjs=446) Trace Negative BILIRUBIN UA (BEAKER) (test ykav=623) Negative Negative BLOOD UA (BEAKER) (test ueft=128) Small Negative NITRITE UA (BEAKER) (test iuoc=370) Negative Negative LEUKOCYTE ESTERASE UA (BEAKER) (test ctcs=430) Moderate Negative UROBILINOGEN UA (BEAKER) (test rmza=368) 2.0 mg/dL 0.2-1.0 RBC UA (BEAKER) (test foyv=555) 15 /HPF WBC UA (BEAKER) (test yyvr=775) 11 /HPF BACTERIA (BEAKER) (test ohin=136) Rare MUCUS (BEAKER) (test ktld=6052) Rare HYALINE CASTS (BEAKER) (test gtta=656) 18 /LPF SOURCE(BEAKER) (test lyzy=2291) Laundry Manager ID - [auto]Laundry Manager ID - hankRAD, CHEST, 1 VIEW, NON [id number] 02: 16:00Reason for exam:->sobShould this be performed at the bedside?-> YesFINAL REPORT INDICATION: sob COMPARISON: 02/10/2019 TECHNIQUE: Single frontal view of the chest. FINDINGS: Lungs and pleura: No discrete airspace consolidation. No effusion.Heart and mediastinum: Normal heart size. Unremarkable mediastinal contours.Osseous structures: No acute abnormality.Other: None. IMPRESSION: No acute intrathoracic abnormality. Signed : Kathe Bautista MDReportVerified Date/Time: 08/06/2019 02:16:57 TROPONICesar I2 01:09:00 Test Item Value Reference Range Comments TROPONIN I (BEAKER) (test hzgz=754) 13.72 ng/mL 0.00-0.03 Troponin I (TnI) levels must [...] failure, acidosis, acute neurological disease, and persistent tachyarrhythmia.Laundry Manager ID - LETITIA MBASIC METABOLIC [id number] 00:56:00 Test Item Value Reference Range Comments SODIUM (BEAKER) (test 138 meq/L 136-145 avnh=687) POTASSIUM (BEAKER) (test 5.1 meq/L 3.5-5.1 nbmg=868) CHLORIDE (BEAKER) (test 115 meq/L 98-107 lxtj=503) CO2 (BEAKER) (test 16 meq/L 22-29 gztj=103) BLOOD UREA NITROGEN 34 mg/dL 7-21 (BEAKER) (test uxph=308) CREATININE (BEAKER) (test 1.40 mg/dL 0.57-1.25 mlns=849) GLUCOSE RANDOM (BEAKER) 207 mg/dL 70-105 (test ncom=422) CALCIUM (BEAKER) (test 7.1 mg/dL 8.4-10.2 duvy=878) EGFR (BEAKER) (test 49 mL/min/1.73 sq m ESTIMATED GFR IS NOT nyhy=2639) ACCURATE CREATININE CLEARANCE IN PREDICTING GLOMERULAR FILTRATION RATE. ESTIMATED GFR IS NOT APPLICABLE FOR DIALYSIS PATIENTS. Laundry Manager ID - LETITIA MLACTIC ACID, [id number] 00:43:00 Test Item Value Reference Range Comments LACTATE BLOOD VENOUS (2) (BEAKER) (test 5.2 mmol/L 0.5-2.2 wryj=5205) Laundry Manager ID - LETITIA MRAD, CHEST, 1 VIEW, NON [id number] 00:14:00Reason for exam:->cvc checkShould this be performed at the bedside?->YesFINAL REPORT RAD, CHEST, 1 VIEW, NON DEPT INDICATION: cvc check COMPARISON: Radiograph from two hours prior FINDINGS: Portable frontal view of the chest. IMPRESSION: Patient isrotated to the left.Support Lines: A right IJ central venous catheter tip overlies the lower SVC. Lungs and pleura: No airspace consolidation or pleural effusion. No pneumothorax.Heart and mediastinum:Stable contours. Additional findings: None. Signed: Kathe Bautista MDReport Verified Date/Time: 08/06/2019 00:14:46 CBC W/PLT COUNT & AUTO [id number] 00:06:00 Test Item Value Reference Range Comments WHITE BLOOD CELL COUNT (BEAKER) (test idnb=692) 11.3 K/ L 3.5-10.5 RED BLOOD CELL COUNT (BEAKER) (test nbdy=227) 2.45 M/ L 4.63-6.08 HEMOGLOBIN (BEAKER) (test tise=239) 7.0 GM/DL 13.7-17.5 HEMATOCRIT (BEAKER) (test vxay=858) 22.2 % 40.1-51.0 MEAN CORPUSCULAR VOLUME (BEAKER) (test njno=416) 90.6 fL 79.0-92.2 MEAN CORPUSCULAR HEMOGLOBIN (BEAKER) (test 28.6 pg 25.7-32.2 pzor=419) MEAN CORPUSCULAR HEMOGLOBIN CONC (BEAKER) (test 31.5 GM/DL 32.3-36.5 hqxs=886) RED CELL DISTRIBUTION WIDTH (BEAKER) (test 21.3 % 11.6-14.4 aqkr=391) PLATELET COUNT (BEAKER) (test meyp=300) 81 K/CU MM 150-450 MEAN PLATELET VOLUME (BEAKER) (test bcnx=277) 9.8 fL 9.4-12.4 NUCLEATED RED BLOOD CELLS (BEAKER) (test 0 /100 WBC 0-0 vzql=234) NEUTROPHILS RELATIVE PERCENT (BEAKER) (test 74 % tfag=515) LYMPHOCYTES RELATIVE PERCENT (BEAKER) (test 14 % rzkk=009) MONOCYTES RELATIVE PERCENT (BEAKER) (test 11 % klva=088) EOSINOPHILS RELATIVE PERCENT (BEAKER) (test 0 % phnr=136) BASOPHILS RELATIVE PERCENT (BEAKER) (test 0 % ogag=962) NEUTROPHILS ABSOLUTE COUNT (BEAKER) (test 8.39 K/ L 1.78-5.38 pvqx=697) LYMPHOCYTES ABSOLUTE COUNT (BEAKER) (test 1.61 K/ L 1.32-3.57 skel=326) MONOCYTES ABSOLUTE COUNT (BEAKER) (test fdwj=091) 1.19 K/ L 0.30-0.82 EOSINOPHILS ABSOLUTE COUNT (BEAKER) (test 0.01 K/ L 0.04-0.54 agcw=916) BASOPHILS ABSOLUTE COUNT (BEAKER) (test cjyr=567) 0.01 K/ L 0.01-0.08 IMMATURE GRANULOCYTES-RELATIVE PERCENT (BEAKER) 1 % 0-1 (test sgab=2736) THROMBOELASTOGRAPH (TEG)2019-08-05 21:36:00 Test Item Value Reference Range Comments TEG ACTIVATED CLOTTING TIME (BEAKER) (test 4.8 minutes 4.0-7.0 wico=0376) TEG FIBRINOGEN ACTIVITY (BEAKER) (test 68.5 degrees 61.0-73.0 wiic=3795) TEG PLT. AGGREGATION (BEAKER) (test zgnj=5121) 56.4 MM 55.0-65.0 TEG FIBRINOLYSIS (BEAKER) (test mcyq=3087) 0.0 % 0.0-5.0 TGH ACTIVATED CLOTTING TIME (BEAKER) (test 4.6 minutes 4.0-7.0 pqbl=0015) TGH FIBRINOGEN ACTIVITY (BEAKER) (test 68.3 degrees 61.0-73.0 yzbt=5688) TGH PLT. AGGREGATION (BEAKER) (test omsr=3731) 57.4 MM 55.0-65.0 TGH FIBRINOLYSIS (BEAKER) (test hllb=6666) 0.5 % 0.0-5.0 [id number] 21:31:00 Test Item Value Reference Range Comments AMMONIA (BEAKER) (test 164 mol/L 18-72 Specimen slightly hemolyzed skux=672) Laundry Manager ID - DBTROPONIN [id number] 21:06:00 Test Item Value Reference Range Comments TROPONIN I (BEAKER) (test mkgk=626) 3.41 ng/mL 0.00-0.03 Troponin I (TnI) levels must [...] failure, acidosis, acute neurological disease, and persistent tachyarrhythmia.Laundry Manager ID - DBCOMPREHENSIVE METABOLIC [id number] 20:43:00 Test Item Value Reference Range Comments TOTAL PROTEIN (BEAKER) 4.4 gm/dL 6.0-8.3 (test hejv=749) ALBUMIN (BEAKER) (test 2.1 g/dL 3.5-5.0 umla=3081) ALKALINE PHOSPHATASE 70 U/L 40-150 (BEAKER) (test ihcm=147) BILIRUBIN TOTAL (BEAKER) 1.7 mg/dL 0.2-1.2 (test tvxa=642) SODIUM (BEAKER) (test 137 meq/L 136-145 jtsd=917) POTASSIUM (BEAKER) (test 5.5 meq/L 3.5-5.1 sqyf=625) CHLORIDE (BEAKER) (test 112 meq/L 98-107 tumj=095) CO2 (BEAKER) (test 14 meq/L 22-29 npnt=952) BLOOD UREA NITROGEN 28 mg/dL 7-21 (BEAKER) (test vvjd=193) CREATININE (BEAKER) (test 1.39 mg/dL 0.57-1.25 qrol=471) GLUCOSE RANDOM (BEAKER) 176 mg/dL 70-105 (test vwlb=897) CALCIUM (BEAKER) (test 7.3 mg/dL 8.4-10.2 fijr=362) AST (SGOT) (BEAKER) (test 83 U/L 5-34 snme=433) ALT (SGPT) (BEAKER) (test 34 U/L 6-55 jvfi=427) EGFR (BEAKER) (test 49 mL/min/1.73 sq m ESTIMATED GFR IS NOT ljtj=5433) ACCURATE CREATININE CLEARANCE IN PREDICTING GLOMERULAR FILTRATION RATE. ESTIMATED GFR IS NOT APPLICABLE FOR DIALYSIS PATIENTS. Laundry Manager ID - DBLACTIC ACID, [id number] 20:41:00 Test Item Value Reference Range Comments LACTATE BLOOD VENOUS (2) (BEAKER) (test 9.4 mmol/L 0.5-2.2 gofr=4181) Laundry Manager ID - [id number] 20:36:00 Test Item Value Reference Range Comments PARTIAL THROMBOPLASTIN TIME (BEAKER) (test 39.2 seconds 22.5-36.0 itim=613) PROTHROMBIN [id number] 20:35:00 Test Item Value Reference Range Comments PROTIME (BEAKER) (test vnnn=406) 25.9 seconds 11.9-14.2 INR (BEAKER) (test sscg=959) 2.4 <=5.9 Effective 12/22/2018: PT Reference Range ChangeNew: 11.9-14.2 Previous: 11.7- 14.7RECOMMENDED COUMADIN/WARFARIN INR THERAPY RANGESSTANDARD DOSE: 2.0-3.0 Includes: PROPHYLAXIS for venous thrombosis, systemic embolization; TREATMENT for venous thrombosis and/or pulmonary embolus.HIGH RISK: Target INR is2.5-3.5 for patients wiht mechanical heart valves.CBC W/PLT COUNT & AUTO [id number] 20:27:00 Test Item Value Reference Range Comments WHITE BLOOD CELL COUNT (BEAKER) (test jewj=862) 13.7 K/ L 3.5-10.5 RED BLOOD CELL COUNT (BEAKER) (test dmia=108) 2.75 M/ L 4.63-6.08 HEMOGLOBIN (BEAKER) (test fcpz=775) 7.8 GM/DL 13.7-17.5 HEMATOCRIT (BEAKER) (test igsm=742) 25.0 % 40.1-51.0 MEAN CORPUSCULAR VOLUME (BEAKER) (test kpyv=007) 90.9 fL 79.0-92.2 MEAN CORPUSCULAR HEMOGLOBIN (BEAKER) (test 28.4 pg 25.7-32.2 spka=584) MEAN CORPUSCULAR HEMOGLOBIN CONC (BEAKER) (test 31.2 GM/DL 32.3-36.5 vzmp=354) RED CELL DISTRIBUTION WIDTH (BEAKER) (test 21.2 % 11.6-14.4 ckde=648) PLATELET COUNT (BEAKER) (test hzrp=632) 93 K/CU MM 150-450 MEAN PLATELET VOLUME (BEAKER) (test ftup=451) 9.5 fL 9.4-12.4 NUCLEATED RED BLOOD CELLS (BEAKER) (test 0 /100 WBC 0-0 ncru=182) NEUTROPHILS RELATIVE PERCENT (BEAKER) (test 80 % euuo=475) LYMPHOCYTES RELATIVE PERCENT (BEAKER) (test 9 % coex=448) MONOCYTES RELATIVE PERCENT (BEAKER) (test 10 % nckk=456) EOSINOPHILS RELATIVE PERCENT (BEAKER) (test 0 % afda=233) BASOPHILS RELATIVE PERCENT (BEAKER) (test 0 % sozc=988) NEUTROPHILS ABSOLUTE COUNT (BEAKER) (test 10.95 K/ L 1.78-5.38 qhpq=625) LYMPHOCYTES ABSOLUTE COUNT (BEAKER) (test 1.26 K/ L 1.32-3.57 edlf=193) MONOCYTES ABSOLUTE COUNT (BEAKER) (test dair=676) 1.33 K/ L 0.30-0.82 EOSINOPHILS ABSOLUTE COUNT (BEAKER) (test 0.01 K/ L 0.04-0.54 vmho=853) BASOPHILS ABSOLUTE COUNT (BEAKER) (test kely=064) 0.02 K/ L 0.01-0.08 IMMATURE GRANULOCYTES-RELATIVE PERCENT (BEAKER) 1 % 0-1 (test hpnv=9613) BASIC METABOLIC [id number] 13:53:00 Test Item Value Reference Range Comments SODIUM (BEAKER) (test 138 meq/L 136-145 irlf=624) POTASSIUM (BEAKER) (test 3.8 meq/L 3.5-5.1 mbkh=723) CHLORIDE (BEAKER) (test 107 meq/L 98-107 wxxk=891) CO2 (BEAKER) (test 22 meq/L 22-29 qhnv=891) BLOOD UREA NITROGEN 10 mg/dL 7-21 (BEAKER) (test jdic=249) CREATININE (BEAKER) (test 0.77 mg/dL 0.57-1.25 xepv=665) GLUCOSE RANDOM (BEAKER) 128 mg/dL 70-105 (test cdgq=632) CALCIUM (BEAKER) (test 9.1 mg/dL 8.4-10.2 ezpm=036) EGFR (BEAKER) (test 98 mL/min/1.73 sq m ESTIMATED GFR IS NOT qrvf=3785) ACCURATE CREATININE CLEARANCE IN PREDICTING GLOMERULAR FILTRATION RATE. ESTIMATED GFR IS NOT APPLICABLE FOR DIALYSIS PATIENTS. Specimen slightly ictericHEPATIC FUNCTION [id number] 13:53:00 Test Item Value Reference Range Comments TOTAL PROTEIN (BEAKER) (test ngxc=213) 7.2 gm/dL 6.0-8.3 ALBUMIN (BEAKER) (test ugoj=8150) 3.3 g/dL 3.5-5.0 BILIRUBIN TOTAL (BEAKER) (test atig=316) 2.0 mg/dL 0.2-1.2 BILIRUBIN DIRECT (BEAKER) (test qjni=001) 1.1 mg/dL 0.1-0.5 ALKALINE PHOSPHATASE (BEAKER) (test sxhq=543) 101 U/L 40-150 AST (SGOT) (BEAKER) (test dltm=121) 45 U/L 5-34 ALT (SGPT) (BEAKER) (test qceq=969) 21 U/L 6-55 Specimen slightly ictericPROTHROMBIN [id number] 13:35:00 Test Item Value Reference Range Comments PROTIME (BEAKER) (test dzhh=639) 16.9 seconds 11.9-14.2 INR (BEAKER) (test ienm=009) 1.5 <=5.9 Effective 12/22/2018: PT Reference Range ChangeNew: 11.9-14.2 Previous: 11.7- 14.7RECOMMENDED COUMADIN/WARFARIN INR THERAPY RANGESSTANDARD DOSE: 2.0-3.0 Includes: PROPHYLAXIS for venous thrombosis, systemic embolization; TREATMENT for venous thrombosis and/or pulmonary embolus.HIGH RISK: Target INR is2.5-3.5 for patients wiht mechanical heart valves.CBC W/PLT COUNT & AUTO [id number] 13:29:00 Test Item Value Reference Range Comments WHITE BLOOD CELL COUNT (BEAKER) (test tgmx=613) 4.4 K/ L 3.5-10.5 RED BLOOD CELL COUNT (BEAKER) (test odjj=586) 3.67 M/ L 4.63-6.08 HEMOGLOBIN (BEAKER) (test fsbt=765) 9.8 GM/DL 13.7-17.5 HEMATOCRIT (BEAKER) (test eywk=838) 33.4 % 40.1-51.0 MEAN CORPUSCULAR VOLUME (BEAKER) (test itmf=110) 91.0 fL 79.0-92.2 MEAN CORPUSCULAR HEMOGLOBIN (BEAKER) (test 26.7 pg 25.7-32.2 khsg=963) MEAN CORPUSCULAR HEMOGLOBIN CONC (BEAKER) (test 29.3 GM/DL 32.3-36.5 ucmq=904) RED CELL DISTRIBUTION WIDTH (BEAKER) (test 25.9 % 11.6-14.4 phkn=181) PLATELET COUNT (BEAKER) (test hdiy=638) 64 K/CU MM 150-450 MEAN PLATELET VOLUME (BEAKER) (test zsxx=541) 9.8 fL 9.4-12.4 NUCLEATED RED BLOOD CELLS (BEAKER) (test 0 /100 WBC 0-0 yous=561) NEUTROPHILS RELATIVE PERCENT (BEAKER) (test 42 % wkec=367) LYMPHOCYTES RELATIVE PERCENT (BEAKER) (test 38 % txtk=228) MONOCYTES RELATIVE PERCENT (BEAKER) (test 14 % vaoh=677) EOSINOPHILS RELATIVE PERCENT (BEAKER) (test 5 % zgrx=533) BASOPHILS RELATIVE PERCENT (BEAKER) (test 1 % uasu=666) NEUTROPHILS ABSOLUTE COUNT (BEAKER) (test 1.87 K/ L 1.78-5.38 otdw=738) LYMPHOCYTES ABSOLUTE COUNT (BEAKER) (test 1.68 K/ L 1.32-3.57 deti=625) MONOCYTES ABSOLUTE COUNT (BEAKER) (test szil=925) 0.61 K/ L 0.30-0.82 EOSINOPHILS ABSOLUTE COUNT (BEAKER) (test 0.21 K/ L 0.04-0.54 mqvi=120) BASOPHILS ABSOLUTE COUNT (BEAKER) (test wpwx=114) 0.02 K/ L 0.01-0.08 IMMATURE GRANULOCYTES-RELATIVE PERCENT (BEAKER) 0 % 0-1 (test ggwy=0920) BLOOD [id number] 02:00:00 Test Item Value Reference Range Comments CULTURE (BEAKER) (test jsck=3455) No growth in 5 days BLOOD [id number] 02:00:00 Test Item Value Reference Range Comments CULTURE (BEAKER) (test qych=6917) No growth in 5 days MR, ABDOMEN, [id number] 14:11:00MRI abdomen liver protocol Patient pending dischargeFINAL [...] right and small left pleural effusions. Signed: Monet Dimas MDReport Verified Date/Time: 02/13/2019 14:11:00 Reading Location: [facility] B1 C013Y CT Body Reading Room POCT-GLUCOSE [id number] 10:52:00 Test Item Value Reference Range Comments POC-GLUCOSE METER (BEAKER) 160 mg/dL 70-110 TESTED AT [facility] [address] [facility] (test pphx=7928) [facility] [address] POCT-GLUCOSE [id number] 07:35:00 Test Item Value Reference Range Comments POC-GLUCOSE METER (BEAKER) 120 mg/dL 70-110 TESTED AT [place] [id number] [facility] (test iubu=2769) [facility] [address] BASIC METABOLIC [id number] 06:42:00 Test Item Value Reference Range Comments SODIUM (BEAKER) (test 139 meq/L 136-145 vhoo=738) POTASSIUM (BEAKER) (test 4.0 meq/L 3.5-5.1 Specimen slightly vrqc=173) hemolyzed CHLORIDE (BEAKER) (test 115 meq/L 98-107 eiqb=449) CO2 (BEAKER) (test 19 meq/L 22-29 wgeq=194) BLOOD UREA NITROGEN 6 mg/dL 7-21 (BEAKER) (test vdhv=683) CREATININE (BEAKER) (test 0.65 mg/dL 0.57-1.25 Specimen slightly poni=876) hemolyzed GLUCOSE RANDOM (BEAKER) 91 mg/dL 70-105 (test eexl=338) CALCIUM (BEAKER) (test 7.7 mg/dL 8.4-10.2 aggc=487) EGFR (BEAKER) (test 119 mL/min/1.73 sq m ESTIMATED GFR IS NOT bhxw=5382) ACCURATE CREATININE CLEARANCE IN PREDICTING GLOMERULAR FILTRATION RATE. ESTIMATED GFR IS NOT APPLICABLE FOR DIALYSIS PATIENTS. HEPATIC FUNCTION [id number] 06:41:00 Test Item Value Reference Range Comments TOTAL PROTEIN (BEAKER) (test 5.5 gm/dL 6.0-8.3 Specimen slightly hemolyzed zrtv=603) ALBUMIN (BEAKER) (test 2.7 g/dL 3.5-5.0 Specimen slightly hemolyzed drkj=0254) BILIRUBIN TOTAL (BEAKER) (test 1.4 mg/dL 0.2-1.2 Specimen slightly hemolyzed blbw=669) BILIRUBIN DIRECT (BEAKER) (test 0.6 mg/dL 0.1-0.5 Specimen slightly hemolyzed ozkn=745) ALKALINE PHOSPHATASE (BEAKER) 56 U/L 40-150 (test flox=039) AST (SGOT) (BEAKER) (test 49 U/L 5-34 Specimen slightly hemolyzed jyto=665) ALT (SGPT) (BEAKER) (test 18 U/L 6-55 Specimen slightly hemolyzed msfi=448) [id number] 05:52:00 Test Item Value Reference Range Comments PROTIME (BEAKER) (test kxsy=997) 20.7 seconds 11.9-14.2 INR (BEAKER) (test nnxk=949) 1.9 <=5.9 PARTIAL THROMBOPLASTIN TIME (BEAKER) (test 46.6 seconds 22.5-36.0 yvon=212) Effective 12/22/2018: PT Reference Range ChangeNew: 11.9-14.2 Previous: 11.7- 14.7RECOMMENDED COUMADIN/WARFARIN INR THERAPY RANGESSTANDARD DOSE: 2.0-3.0 Includes: PROPHYLAXIS for venous thrombosis, systemic embolization; TREATMENT for venous thrombosis and/or pulmonary embolus.HIGH RISK: Target INR is2.5-3.5 for patients wiht mechanical heart valves.PROTHROMBIN TIME/[id number] 05:51: 00 Test Item Value Reference Range Comments PROTIME (BEAKER) (test wfdr=513) 20.7 seconds 11.9-14.2 INR (BEAKER) (test xwba=743) 1.9 <=5.9 Effective 12/22/2018: PT Reference Range ChangeNew: 11.9-14.2 Previous: 11.7- 14.7RECOMMENDED COUMADIN/WARFARIN INR THERAPY RANGESSTANDARD DOSE: 2.0-3.0 Includes: PROPHYLAXIS for venous thrombosis, systemic embolization; TREATMENT for venous thrombosis and/or pulmonary embolus.HIGH RISK: Target INR is2.5-3.5 for patients wiht mechanical heart valves.CBC (HEMOGRAM ONLY)2019-02-13 05:26:00 Test Item Value Reference Range Comments WHITE BLOOD CELL COUNT (BEAKER) (test tdty=515) 2.9 K/ L 3.5-10.5 RED BLOOD CELL COUNT (BEAKER) (test bccz=379) 2.76 M/ L 4.63-6.08 HEMOGLOBIN (BEAKER) (test uhfi=652) 7.3 GM/DL 13.7-17.5 HEMATOCRIT (BEAKER) (test ptgp=618) 23.5 % 40.1-51.0 MEAN CORPUSCULAR VOLUME (BEAKER) (test yjex=802) 85.1 fL 79.0-92.2 MEAN CORPUSCULAR HEMOGLOBIN (BEAKER) (test 26.4 pg 25.7-32.2 xkyr=916) MEAN CORPUSCULAR HEMOGLOBIN CONC (BEAKER) (test 31.1 GM/DL 32.3-36.5 agvp=635) RED CELL DISTRIBUTION WIDTH (BEAKER) (test 19.4 % 11.6-14.4 ifvn=440) PLATELET COUNT (BEAKER) (test mdge=831) 73 K/CU MM 150-450 MEAN PLATELET VOLUME (BEAKER) (test mlgc=080) 10.3 fL 9.4-12.4 NUCLEATED RED BLOOD CELLS (BEAKER) (test 0 /100 WBC 0-0 wtfx=441) POCT-GLUCOSE [id number] 21:21:00 Test Item Value Reference Range Comments POC-GLUCOSE METER (BEAKER) 185 mg/dL 70-110 TESTED AT [address] (test yseb=0086) [facility] [address] POCT-GLUCOSE [id number] 15:55:00 Test Item Value Reference Range Comments POC-GLUCOSE METER (BEAKER) 154 mg/dL 70-110 TESTED AT [address] (test fplf=8808) [facility] [address] POCT-GLUCOSE [id number] 15:55:00 Test Item Value Reference Range Comments POC-GLUCOSE METER (BEAKER) 144 mg/dL 70-110 TESTED AT [facility] [address] [facility] (test tdxp=8178) [facility] [address] POCT-GLUCOSE [id number] 10:19:00 Test Item Value Reference Range Comments POC-GLUCOSE METER (BEAKER) 130 mg/dL 70-110 TESTED AT [place] [id number] [facility] (test poub=3121) [facility] [address] ALPHA FETOPROTEIN (AFP), TUMOR [id number] 08:37:00 Test Item Value Reference Range Comments ALPHA-FETOPROTEIN (BEAKER) (test ztwk=3033) 362.4 ng/mL <10.0 [id number] 07:20:00 Test Item Value Reference Range Comments FERRITIN (BEAKER) (test bfgj=991) 33 ng/mL 5-275 IRON, TIBC, % SAT. (WITHOUT FERRITIN)2019-02-12 06:59:00 Test Item Value Reference Range Comments IRON (BEAKER) (test fawk=163) 43.0 ug/dL 40.0-160.0 TOTAL IRON BINDING CAPACITY (BEAKER) (test 338 ug/dL 250-450 kyrt=773) IRON % SATURATION (2) (BEAKER) (test aple=3683) 13 % 20-55 BASIC METABOLIC [id number] 06:22:00 Test Item Value Reference Range Comments SODIUM (BEAKER) (test 137 meq/L 136-145 fblo=693) POTASSIUM (BEAKER) (test 4.0 meq/L 3.5-5.1 bawh=964) CHLORIDE (BEAKER) (test 113 meq/L 98-107 gqen=077) CO2 (BEAKER) (test 20 meq/L 22-29 vbzy=680) BLOOD UREA NITROGEN 7 mg/dL 7-21 (BEAKER) (test bnca=797) CREATININE (BEAKER) (test 0.70 mg/dL 0.57-1.25 bldb=956) GLUCOSE RANDOM (BEAKER) 103 mg/dL 70-105 (test zsmq=214) CALCIUM (BEAKER) (test 7.7 mg/dL 8.4-10.2 bnig=748) EGFR (BEAKER) (test 109 mL/min/1.73 sq m ESTIMATED GFR IS NOT pcbn=3945) ACCURATE CREATININE CLEARANCE IN PREDICTING GLOMERULAR FILTRATION RATE. ESTIMATED GFR IS NOT APPLICABLE FOR DIALYSIS PATIENTS. [id number] 06:15:00 Test Item Value Reference Range Comments PHOSPHORUS (BEAKER) (test ndxk=410) 2.6 mg/dL 2.3-4.7 [id number] 06:15:00 Test Item Value Reference Range Comments MAGNESIUM (BEAKER) (test koiw=919) 1.9 mg/dL 1.6-2.6 HEPATIC FUNCTION [id number] 06:15:00 Test Item Value Reference Range Comments TOTAL PROTEIN (BEAKER) (test vlua=316) 5.7 gm/dL 6.0-8.3 ALBUMIN (BEAKER) (test ktto=6463) 2.8 g/dL 3.5-5.0 BILIRUBIN TOTAL (BEAKER) (test fwmc=716) 1.8 mg/dL 0.2-1.2 BILIRUBIN DIRECT (BEAKER) (test rsef=283) 0.9 mg/dL 0.1-0.5 ALKALINE PHOSPHATASE (BEAKER) (test gykt=277) 54 U/L 40-150 AST (SGOT) (BEAKER) (test jxsx=006) 41 U/L 5-34 ALT (SGPT) (BEAKER) (test vtqs=493) 16 U/L 6-55 PROTHROMBIN TIME/[id number] 05:51:00 Test Item Value Reference Range Comments PROTIME (BEAKER) (test eqmk=907) 19.8 seconds 11.9-14.2 INR (BEAKER) (test vnlj=040) 1.8 <=5.9 Effective 12/22/2018: PT Reference Range ChangeNew: 11.9-14.2 Previous: 11.7- 14.7RECOMMENDED COUMADIN/WARFARIN INR THERAPY RANGESSTANDARD DOSE: 2.0-3.0 Includes: PROPHYLAXIS for venous thrombosis, systemic embolization; TREATMENT for venous thrombosis and/or pulmonary embolus.HIGH RISK: Target INR is2.5-3.5 for patients wiht mechanical heart valves.PT/[id number] 05:51:00 Test Item Value Reference Range Comments PROTIME (BEAKER) (test myyq=686) 19.8 seconds 11.9-14.2 INR (BEAKER) (test cpsd=915) 1.8 <=5.9 PARTIAL THROMBOPLASTIN TIME (BEAKER) (test 43.4 seconds 22.5-36.0 oaul=483) Effective 12/22/2018: PT Reference Range ChangeNew: 11.9-14.2 Previous: 11.7- 14.7RECOMMENDED COUMADIN/WARFARIN INR THERAPY RANGESSTANDARD DOSE: 2.0-3.0 Includes: PROPHYLAXIS for venous thrombosis, systemic embolization; TREATMENT for venous thrombosis and/or pulmonary embolus.HIGH RISK: Target INR is2.5-3.5 for patients wiht mechanical heart valves.CBC (HEMOGRAM ONLY)2019-02-12 05:30:00 Test Item Value Reference Range Comments WHITE BLOOD CELL COUNT (BEAKER) (test dfas=559) 3.3 K/ L 3.5-10.5 RED BLOOD CELL COUNT (BEAKER) (test ugsz=747) 2.79 M/ L 4.63-6.08 HEMOGLOBIN (BEAKER) (test xauq=173) 7.2 GM/DL 13.7-17.5 HEMATOCRIT (BEAKER) (test pnwl=148) 23.5 % 40.1-51.0 MEAN CORPUSCULAR VOLUME (BEAKER) (test xnqb=812) 84.2 fL 79.0-92.2 MEAN CORPUSCULAR HEMOGLOBIN (BEAKER) (test 25.8 pg 25.7-32.2 serv=424) MEAN CORPUSCULAR HEMOGLOBIN CONC (BEAKER) (test 30.6 GM/DL 32.3-36.5 shpr=159) RED CELL DISTRIBUTION WIDTH (BEAKER) (test 18.9 % 11.6-14.4 sqci=308) PLATELET COUNT (BEAKER) (test llkv=849) 69 K/CU MM 150-450 MEAN PLATELET VOLUME (BEAKER) (test svow=694) 10.4 fL 9.4-12.4 NUCLEATED RED BLOOD CELLS (BEAKER) (test 1 /100 WBC 0-0 ygme=205) HEPATITIS A ANTIBODY, [id number] 19:24:00 Test Item Value Reference Range Comments HEPATITIS A IGG ANTIBODY (BEAKER) (test Nonreactive Nonreactive hikw=8335) ALPHA FETOPROTEIN (AFP), TUMOR [id number] 17:58:00 Test Item Value Reference Range Comments ALPHA-FETOPROTEIN (JULIENNE) (test oacy=1096) 356.8 ng/mL <10.0 HEMOGLOBIN AND [id number] 14:32:00 Test Item Value Reference Range Comments HEMOGLOBIN (JULIENNE) (test xkil=758) 7.6 GM/DL 13.7-17.5 HEMATOCRIT (JULIENNE) (test kizg=655) 25.6 % 40.1-51.0 U/S, ABDOMINAL, WITH [id number] 13:40:00Reason for exam:->abdominal pain, cirrhosis ? liver [...] Joseph MDReport VerifiedDate/Time: 02/11/2019 13:40:35 Reading Location: [address] Radiology Reading Room TROPONIN [id number] 08:56:00 Test Item Value Reference Range Comments TROPONIN I (BEAKER) (test bcck=966) 0.10 ng/mL 0.00-0.03 Troponin I (TnI) levels [...] failure, acidosis, acute neurological disease, and persistent tachyarrhythmia.[id number] 01:49:00 Test Item Value Reference Range Comments AMMONIA (BEAKER) (test rnnv=153) 63 mol/L 18-72 CBC W/PLT COUNT & AUTO [id number] 01:33:00 Test Item Value Reference Range Comments WHITE BLOOD CELL COUNT (BEAKER) (test ujno=491) 3.8 K/ L 3.5-10.5 RED BLOOD CELL COUNT (BEAKER) (test uxag=069) 2.19 M/ L 4.63-6.08 HEMOGLOBIN (BEAKER) (test imvy=435) 5.1 GM/DL 13.7-17.5 HEMATOCRIT (BEAKER) (test pyse=576) 17.8 % 40.1-51.0 MEAN CORPUSCULAR VOLUME (BEAKER) (test afyu=964) 81.3 fL 79.0-92.2 MEAN CORPUSCULAR HEMOGLOBIN (BEAKER) (test 23.3 pg 25.7-32.2 wemc=013) MEAN CORPUSCULAR HEMOGLOBIN CONC (BEAKER) (test 28.7 GM/DL 32.3-36.5 phhn=452) RED CELL DISTRIBUTION WIDTH (BEAKER) (test 20.2 % 11.6-14.4 vqoi=540) PLATELET COUNT (BEAKER) (test hbco=678) 71 K/CU MM 150-450 MEAN PLATELET VOLUME (BEAKER) (test nbdx=246) 10.2 fL 9.4-12.4 NUCLEATED RED BLOOD CELLS (BEAKER) (test 0 /100 WBC 0-0 einy=724) NEUTROPHILS RELATIVE PERCENT (BEAKER) (test 42 % plts=454) LYMPHOCYTES RELATIVE PERCENT (BEAKER) (test 33 % gglt=172) MONOCYTES RELATIVE PERCENT (BEAKER) (test 21 % jcyl=933) EOSINOPHILS RELATIVE PERCENT (BEAKER) (test 4 % qzrt=891) BASOPHILS RELATIVE PERCENT (BEAKER) (test 0 % tpju=301) NEUTROPHILS ABSOLUTE COUNT (BEAKER) (test 1.58 K/ L 1.78-5.38 cssq=234) LYMPHOCYTES ABSOLUTE COUNT (BEAKER) (test 1.22 K/ L 1.32-3.57 qlrr=091) MONOCYTES ABSOLUTE COUNT (BEAKER) (test fgtg=812) 0.79 K/ L 0.30-0.82 EOSINOPHILS ABSOLUTE COUNT (BEAKER) (test 0.15 K/ L 0.04-0.54 zhcw=586) BASOPHILS ABSOLUTE COUNT (BEAKER) (test rxwp=288) 0.00 K/ L 0.01-0.08 IMMATURE GRANULOCYTES-RELATIVE PERCENT (BEAKER) 0 % 0-1 (test jyah=4810) TROPONIN [id number] 01:23:00 Test Item Value Reference Range Comments TROPONIN I (BEAKER) (test edzb=306) < ng/mL 0.00-0.03 Troponin I (TnI) levels [...] failure, acidosis, acute neurological disease, and persistent tachyarrhythmia.[id number] 01:17:00 Test Item Value Reference Range Comments PHOSPHORUS (BEAKER) (test latr=896) 2.7 mg/dL 2.3-4.7 [id number] 01:17:00 Test Item Value Reference Range Comments MAGNESIUM (BEAKER) (test cxhv=087) 1.9 mg/dL 1.6-2.6 BASIC METABOLIC [id number] 01:17:00 Test Item Value Reference Range Comments SODIUM (BEAKER) (test 137 meq/L 136-145 lcac=121) POTASSIUM (BEAKER) (test 3.4 meq/L 3.5-5.1 sdyo=111) CHLORIDE (BEAKER) (test 109 meq/L 98-107 nusf=818) CO2 (BEAKER) (test 21 meq/L 22-29 exce=323) BLOOD UREA NITROGEN 9 mg/dL 7-21 (BEAKER) (test aszh=780) CREATININE (BEAKER) (test 0.65 mg/dL 0.57-1.25 tauw=647) GLUCOSE RANDOM (BEAKER) 104 mg/dL 70-105 (test hjxd=538) CALCIUM (BEAKER) (test 8.1 mg/dL 8.4-10.2 mnez=241) EGFR (BEAKER) (test 119 mL/min/1.73 sq m ESTIMATED GFR IS NOT mmcw=3290) ACCURATE CREATININE CLEARANCE IN PREDICTING GLOMERULAR FILTRATION RATE. ESTIMATED GFR IS NOT APPLICABLE FOR DIALYSIS PATIENTS. Specimen slightly ictericHEPATIC FUNCTION [id number] 01:17:00 Test Item Value Reference Range Comments TOTAL PROTEIN (BEAKER) (test ivrq=700) 5.7 gm/dL 6.0-8.3 ALBUMIN (BEAKER) (test egwx=1822) 2.8 g/dL 3.5-5.0 BILIRUBIN TOTAL (BEAKER) (test lrpw=676) 2.3 mg/dL 0.2-1.2 BILIRUBIN DIRECT (BEAKER) (test emqd=163) 0.8 mg/dL 0.1-0.5 ALKALINE PHOSPHATASE (BEAKER) (test qnou=171) 59 U/L 40-150 AST (SGOT) (BEAKER) (test nkpq=588) 29 U/L 5-34 ALT (SGPT) (BEAKER) (test rwbo=372) 11 U/L 6-55 Specimen slightly ictericPT/[id number] 01:08:00 Test Item Value Reference Range Comments PROTIME (BEAKER) (test yakh=277) 19.5 seconds 11.9-14.2 INR (BEAKER) (test bjoa=111) 1.8 <=5.9 PARTIAL THROMBOPLASTIN TIME (BEAKER) (test 42.1 seconds 22.5-36.0 zuih=196) Effective 12/22/2018: PT Reference Range ChangeNew: 11.9-14.2 Previous: 11.7- 14.7RECOMMENDED COUMADIN/WARFARIN INR THERAPY RANGESSTANDARD DOSE: 2.0-3.0 Includes: PROPHYLAXIS for venous thrombosis, systemic embolization; TREATMENT for venous thrombosis and/or pulmonary embolus.HIGH RISK: Target INR is2.5-3.5 for patients wiht mechanical heart valves.PROTHROMBIN TIME/[id number] 01:07: 00 Test Item Value Reference Range Comments PROTIME (BEAKER) (test dbmm=845) 19.5 seconds 11.9-14.2 INR (BEAKER) (test zsma=060) 1.8 <=5.9 Effective 12/22/2018: PT Reference Range ChangeNew: 11.9-14.2 Previous: 11.7- 14.7RECOMMENDED COUMADIN/WARFARIN INR THERAPY RANGESSTANDARD DOSE: 2.0-3.0 Includes: PROPHYLAXIS for venous thrombosis, systemic embolization; TREATMENT for venous thrombosis and/or pulmonary embolus.HIGH RISK: Target INR is2.5-3.5 for patients wiht mechanical heart valves.URINALYSIS W/ REFLEX URINE [id number] 00:55:00 Test Item Value Reference Range Comments COLOR (BEAKER) (test kpbd=565) Yellow CLARITY (BEAKER) (test iyzm=866) Clear SPECIFIC GRAVITY UA (BEAKER) (test lwmz=494) 1.013 1.001-1.035 PH UA (BEAKER) (test dszl=049) 6.0 5.0-8.0 PROTEIN UA (BEAKER) (test fmvv=365) Negative Negative GLUCOSE UA (BEAKER) (test uoey=438) Negative Negative KETONES UA (BEAKER) (test fjin=714) 10 mg/dL Negative BILIRUBIN UA (BEAKER) (test hlui=227) Negative Negative BLOOD UA (BEAKER) (test wslf=665) Negative Negative NITRITE UA (BEAKER) (test kihn=393) Negative Negative LEUKOCYTE ESTERASE UA (BEAKER) (test azjo=812) Negative Negative UROBILINOGEN UA (BEAKER) (test hfbg=855) 0.2 mg/dL 0.2-1.0 RBC UA (BEAKER) (test vemn=961) 0 /HPF WBC UA (BEAKER) (test jhfe=995) 1 /HPF MUCUS (BEAKER) (test wbso=9483) Rare SOURCE(BEAKER) (test utmg=5680) CBC W/PLT COUNT & AUTO [id number] 23:53:00 Test Item Value Reference Range Comments WHITE BLOOD CELL COUNT (BEAKER) (test cnym=684) 4.0 K/ L 3.5-10.5 RED BLOOD CELL COUNT (BEAKER) (test itoy=072) 2.47 M/ L 4.63-6.08 HEMOGLOBIN (BEAKER) (test rmic=293) 5.9 GM/DL 13.7-17.5 HEMATOCRIT (BEAKER) (test gdgt=915) 20.2 % 40.1-51.0 MEAN CORPUSCULAR VOLUME (BEAKER) (test ikun=790) 81.8 fL 79.0-92.2 MEAN CORPUSCULAR HEMOGLOBIN (BEAKER) (test 23.9 pg 25.7-32.2 wlzc=297) MEAN CORPUSCULAR HEMOGLOBIN CONC (BEAKER) (test 29.2 GM/DL 32.3-36.5 ueob=858) RED CELL DISTRIBUTION WIDTH (BEAKER) (test 20.3 % 11.6-14.4 vsle=410) PLATELET COUNT (BEAKER) (test ofha=612) 93 K/CU MM 150-450 MEAN PLATELET VOLUME (BEAKER) (test pbgp=162) 10.5 fL 9.4-12.4 NUCLEATED RED BLOOD CELLS (BEAKER) (test 0 /100 WBC 0-0 rrdp=042) (CELLAVISION MANUAL DIFF)2019-02-10 23:53:00 Test Item Value Reference Range Comments NEUTROPHILS - REL (CELLAVISION)(BEAKER) (test 57 % sxze=6398) LYMPHOCYTES - REL (CELLAVISION)(BEAKER) (test 24 % qgag=9746) MONOCYTES - REL (CELLAVISION)(BEAKER) (test 10 % kkxv=7051) EOSINOPHILS - REL (CELLAVISION)(BEAKER) (test 7 % qbug=5763) BANDS - REL (CELLAVISION)(BEAKER) (test 2 % 0-10 xizr=5528) NEUTROPHILS - ABS (CELLAVISION)(BEAKER) (test 2.28 K/ul 1.78-5.38 punh=1461) LYMPHOCYTES - ABS (CELLAVISION)(BEAKER) (test 0.96 K/ul 1.32-3.57 zrxu=8040) MONOCYTES - ABS (CELLAVISION)(BEAKER) (test 0.40 K/uL 0.30-0.82 wpoe=1278) EOSINOPHILS - ABS (CELLAVISION)(BEAKER) (test 0.28 K/uL 0.04-0.54 rwwr=5159) BANDS - ABS (CELLAVISION)(BEAKER) (test 0.08 K/uL 0.00-0.80 grhp=4693) TOTAL COUNTED (BEAKER) (test nqme=6986) 100 GIANT PLATELETS (BEAKER) (test vxjb=155) Present VACUOLATED NEUTROPHILS (BEAKER) (test mqlx=043) Present POLYCHROMATOPHILLIC RBCS(BEAKER) (test nyzt=294) 1+ few HYPOCHROMIA (BEAKER) (test diqt=892) 2+ moderate ANISOCYTOSIS (BEAKER) (test lhsi=642) 3+ many MICROCYTES (BEAKER) (test xosc=815) 1+ few MACROCYTES (BEAKER) (test jziz=699) 1+ few POIKILOCYTES (BEAKER) (test zcml=492) 1+ few SPHEROCYTES (BEAKER) (test pskf=734) 1+ few ELLIPTOCYTES (BEAKER) (test naqj=851) 1+ few TEAR DROP CELLS (BEAKER) (test ejcm=975) 1+ few ARTIFACT (CELLAVISION)(BEAKER) (test rgqz=5057) Present HELMET CELLS (CELLAVISION)(BEAKER) (test 1+ few hvll=9148) PLATELET CONCENTRATION (CELLAVISION)(BEAKER) Decreased (test xjwu=5307) Received comment: User comments: Slide comments:TROPONIN [id number] 23:14:00 Test Item Value Reference Range Comments TROPONIN I (BEAKER) (test igvq=808) < ng/mL 0.00-0.03 Troponin I (TnI) levels [...] acute neurological disease, and persistent tachyarrhythmia.COMPREHENSIVE METABOLIC [id number] 23:08:00 Test Item Value Reference Range Comments TOTAL PROTEIN (BEAKER) 6.2 gm/dL 6.0-8.3 (test zjmh=718) ALBUMIN (BEAKER) (test 3.1 g/dL 3.5-5.0 rsbb=3292) ALKALINE PHOSPHATASE 65 U/L 40-150 (BEAKER) (test sxzu=705) BILIRUBIN TOTAL (BEAKER) 2.9 mg/dL 0.2-1.2 (test dqee=377) SODIUM (BEAKER) (test 136 meq/L 136-145 rska=880) POTASSIUM (BEAKER) (test 3.4 meq/L 3.5-5.1 iomd=062) CHLORIDE (BEAKER) (test 108 meq/L 98-107 zjtr=811) CO2 (BEAKER) (test 19 meq/L 22-29 fnnu=417) BLOOD UREA NITROGEN 9 mg/dL 7-21 (BEAKER) (test rmxr=846) CREATININE (BEAKER) (test 0.69 mg/dL 0.57-1.25 xuxp=423) GLUCOSE RANDOM (BEAKER) 139 mg/dL 70-105 (test kwcx=639) CALCIUM (BEAKER) (test 8.3 mg/dL 8.4-10.2 chnm=506) AST (SGOT) (BEAKER) (test 32 U/L 5-34 nbof=603) ALT (SGPT) (BEAKER) (test 14 U/L 6-55 vnky=923) EGFR (BEAKER) (test 111 mL/min/1.73 sq ESTIMATED GFR IS NOT zhhv=3746) m ACCURATE CREATININE CLEARANCE IN PREDICTING GLOMERULAR FILTRATION RATE. ESTIMATED GFR IS NOT APPLICABLE FOR DIALYSIS PATIENTS. Specimen slightly ictericRAD, CHEST, 2 [id number] 22:59:00Reason for exam:- >pleural effusion on CT a/p evaluateFINAL REPORT History: Pleural effusions. FINDINGS: Compared with 4/27 2018, the heart and mediastinum are stable. Lung volumes have decreased slightly. There is increased opacityin the lung bases, possibly atelectasis or early pneumonia. Blunting of the costophrenic sulci may represent small pleural effusions. Lungs are otherwise clear. No pneumothorax. Bones are unremarkable.IMPRESSION: 1. Low lung volumes and probable bilateral lower lobe atelectasis. 2. Possible small bilateral pleural effusions. Signed: Estrella Wagnerort Verified Date/Time: 02/10/2019 22:59:29 Reading Location: [facility] Diagnostic Imaging Reading Room - [place] [address] [id number] 22:57:00 Test Item Value Reference Range Comments PARTIAL THROMBOPLASTIN TIME (BEAKER) (test 36.6 seconds 22.5-36.0 uthq=057) PROTHROMBIN TIME/[id number] 22:56:00 Test Item Value Reference Range Comments PROTIME (BEAKER) (test lpag=350) 18.9 seconds 11.9-14.2 INR (BEAKER) (test vukt=158) 1.7 <=5.9 Effective 12/22/2018: PT Reference Range ChangeNew: 11.9-14.2 Previous: 11.7- 14.7RECOMMENDED COUMADIN/WARFARIN INR THERAPY RANGESSTANDARD DOSE: 2.0-3.0 Includes: PROPHYLAXIS for venous thrombosis, systemic embolization; TREATMENT for venous thrombosis and/or pulmonary embolus.HIGH RISK: Target INR is2.5-3.5 for patients wiht mechanical heart valves.POCT-GLUCOSE [id number] 21:34:00 Test Item Value Reference Range Comments POC-GLUCOSE METER (BEAKER) 170 mg/dL 70-110 TESTED AT [facility] [address] [facility] (test rrer=8411) [facility] [address] MR, ABDOMEN, [id number] 20:13:00Liver protocol based on 09/23 CT of chest shows liver massAddendum BeginsREPORT STATUS:A ADRENALS section should include: Thickening ofboth adrenal glands without discrete nodules. Signed: Geovany Srinivasan MDReport Verified Date/Time: 09/25/2017 20:13: 03 Reading Location: [facility] B1 C013Y CT Body Reading RoomAddendum EndsFINAL REPORT TECHNIQUE: [...] MDReport Verified Date/Time: 09/25/2017 13:46:41 Reading Location: [facility] B1 C013Y CT Body Reading Room Electronically signedby: GEOVANY SRINIVASAN MD on 09/25/2017 08:13 [facility] [id number] 14:10:00 Test Item Value Reference Range Comments SODIUM (BEAKER) (test 135 meq/L 135-148 mxhi=127) POTASSIUM (BEAKER) (test 3.5 meq/L 3.5-5.5 jlpx=646) CHLORIDE (BEAKER) (test 99 meq/L 98-106 tpvp=466) CO2 (BEAKER) (test 28 meq/L 20-31 kqlj=814) BLOOD UREA NITROGEN 8 mg/dL 10-26 (BEAKER) (test ysev=790) CREATININE (BEAKER) (test 0.64 mg/dL 0.50-1.20 vwwh=801) GLUCOSE RANDOM (BEAKER) 180 mg/dL 70-110 (test lmsd=239) CALCIUM (BEAKER) (test 8.3 mg/dL 8.5-10.5 fhqv=991) EGFR (BEAKER) (test 122 mL/min/1.73 sq m ESTIMATED GFR IS NOT jocf=4719) ACCURATE CREATININE CLEARANCE IN PREDICTING GLOMERULAR FILTRATION RATE. ESTIMATED GFR IS NOT APPLICABLE FOR DIALYSIS PATIENTS. POCT-GLUCOSE [id number] 13:03:00 Test Item Value Reference Range Comments POC-GLUCOSE METER (BEAKER) 160 mg/dL 70-110 TESTED AT [facility] [id number] [place] [address] (test dygk=2532) [facility] [address] [id number] 09:47:00 Test Item Value Reference Range Comments PARTIAL THROMBOPLASTIN TIME (BEAKER) (test 42.3 seconds 23.2-36.1 qiyn=660) PROTHROMBIN [id number] 09:45:00 Test Item Value Reference Range Comments PROTIME (BEAKER) (test wxls=013) 17.6 seconds 11.8-14.4 INR (BEAKER) (test mdkh=666) 1.4 1.2-1.5 RECOMMENDED COUMADIN/WARFARIN INR THERAPY RANGESSTANDARD DOSE: 2.0 - 3.0 Includes: PROPHYLAXIS forvenous thrombosis, systemic embolization; TREATMENT for venous thrombosis and/or pulmonary embolus.HIGH RISK: Target INR is 2.5-3.5 for patients with mechanical heart valves.POCT-GLUCOSE [id number] 07:23:00 Test Item Value Reference Range Comments POC-GLUCOSE METER (BEAKER) 171 mg/dL 70-110 TESTED AT [facility] [address] [facility] (test evob=3264) [facility] [address] POCT-GLUCOSE [id number] 21:35:00 Test Item Value Reference Range Comments POC-GLUCOSE METER (BEAKER) 209 mg/dL 70-110 TESTED AT [facility] [address] [facility] (test ynrb=2714) [facility] [address] ALPHA FETOPROTEIN (AFP), TUMOR [id number] 18:39:00 Test Item Value Reference Range Comments ALPHA-FETOPROTEIN (BEAKER) (test flmx=2165) 215.0 ng/mL <10.0 POCT-GLUCOSE [id number] 16:42:00 Test Item Value Reference Range Comments POC-GLUCOSE METER (BEAKER) 254 mg/dL 70-110 TESTED AT [facility] [address] [facility] (test knsu=2906) [facility] [address] RESPIRATORY PANEL [id number] 15:20:00 Test Item Value Reference Range Comments HUMAN METAPNEUMOVIRUS (BEAKER) (test Not detected Not detected, Inconclusive qldn=3384) RHINOVIRUS (BEAKER) (test smcg=4722) Not detected Not detected, Inconclusive INFLUENZA A (BEAKER) (test Not detected Not detected, Inconclusive jhgb=5437) INFLUENZA A SUBTYPE H1 (BEAKER) Not detected Not detected, Inconclusive (test zhoc=7915) INFLUENZA A SUBTYPE H3 (BEAKER) Not detected Not detected, Inconclusive (test vlek=1826) INFLUENZA A SUBTYPE H1-2009 (BEAKER) Not detected Not detected, Inconclusive (test yvas=8772) INFLUENZA B (BEAKER) (test Not detected Not detected, Inconclusive cafq=3663) RESPIRATORY SYNCYTIAL VIRUS (BEAKER) Not detected Not detected, Inconclusive (test xypo=9396) PARAINFLUENZA VIRUS 1 (BEAKER) (test Not detected Not detected, Inconclusive dmau=2837) PARAINFLUENZA VIRUS 2 (BEAKER) (test Not detected Not detected, Inconclusive dlxn=6910) PARAINFLUENZA VIRUS 3 (BEAKER) (test Not detected Not detected, Inconclusive cmai=2660) PARAINFLUENZA VIRUS 4 (BEAKER) (test Not detected Not detected, Inconclusive rsou=1514) ADENOVIRUS (BEAKER) (test adjg=6411) Not detected Not detected, Inconclusive CORONAVIRUS 229E (BEAKER) (test Not detected Not detected, Inconclusive zort=4601) CORONAVIRUS HKU1 (BEAKER) (test Not detected Not detected, Inconclusive lypy=4011) CORONAVIRUS NL63 (BEAKER) (test Not detected Not detected, Inconclusive aixz=9190) CORONAVIRUS OC43 (BEAKER) (test Not detected Not detected, Inconclusive itta=3959) BORDETELLA PERTUSSIS (BEAKER) (test Not detected Not detected, Inconclusive gvas=6112) CHLAMYDOPHILA PNEUMONIAE (BEAKER) Not detected Not detected, Inconclusive (test fjax=2412) MYCOPLASMA PNEUMONIAE (BEAKER) (test Not detected Not detected, Inconclusive alhi=4017) POCT-GLUCOSE [id number] 13:03:00 Test Item Value Reference Range Comments POC-GLUCOSE METER (BEAKER) 176 mg/dL 70-110 TESTED AT [facility] [address] [facility] (test csto=8894) [facility] [address] POCT-GLUCOSE [id number] 07:51:00 Test Item Value Reference Range Comments POC-GLUCOSE METER (BEAKER) 172 mg/dL 70-110 TESTED AT [facility] [address] [facility] (test cwjj=9183) [facility] [address] BASIC METABOLIC [id number] 07:06:00 Test Item Value Reference Range Comments SODIUM (BEAKER) (test 137 meq/L 135-148 idwc=819) POTASSIUM (BEAKER) (test 3.4 meq/L 3.5-5.5 ocfu=027) CHLORIDE (BEAKER) (test 100 meq/L 98-106 spne=318) CO2 (BEAKER) (test 31 meq/L 20-31 hsus=246) BLOOD UREA NITROGEN 9 mg/dL 10-26 (BEAKER) (test mnew=254) CREATININE (BEAKER) (test 0.60 mg/dL 0.50-1.20 xfcb=747) GLUCOSE RANDOM (BEAKER) 149 mg/dL 70-110 (test icpg=878) CALCIUM (BEAKER) (test 8.2 mg/dL 8.5-10.5 dsua=114) EGFR (BEAKER) (test 131 mL/min/1.73 sq m ESTIMATED GFR IS NOT rgbh=4612) ACCURATE CREATININE CLEARANCE IN PREDICTING GLOMERULAR FILTRATION RATE. ESTIMATED GFR IS NOT APPLICABLE FOR DIALYSIS PATIENTS. CBC W/PLT COUNT & AUTO [id number] 05:59:00 Test Item Value Reference Range Comments WHITE BLOOD CELL COUNT (BEAKER) (test iafu=265) 6.6 K/ L 4.0-10.0 RED BLOOD CELL COUNT (BEAKER) (test gjre=558) 2.99 M/ L 4.20-5.80 HEMOGLOBIN (BEAKER) (test oazz=549) 8.8 GM/DL 13.0-16.8 HEMATOCRIT (BEAKER) (test eutv=422) 28.3 % 40.0-50.0 MEAN CORPUSCULAR VOLUME (BEAKER) (test kyea=926) 94.6 fL 82.0-98.0 MEAN CORPUSCULAR HEMOGLOBIN (BEAKER) (test 29.5 pg 27.0-33.0 fvth=481) MEAN CORPUSCULAR HEMOGLOBIN CONC (BEAKER) (test 31.2 GM/DL 32.0-36.0 gyky=952) RED CELL DISTRIBUTION WIDTH (BEAKER) (test 16.1 % 12.0-15.0 rsht=889) PLATELET COUNT (BEAKER) (test bjwu=275) 119 K/CU MM 150-430 MEAN PLATELET VOLUME (BEAKER) (test mgyx=911) 8.3 fL 6.5-10.5 NUCLEATED RED BLOOD CELLS (BEAKER) (test 0 /100 WBC 0-0 ezec=242) NEUTROPHILS RELATIVE PERCENT (BEAKER) (test 61 % oiui=255) LYMPHOCYTES RELATIVE PERCENT (BEAKER) (test 22 % jdas=678) MONOCYTES RELATIVE PERCENT (BEAKER) (test 10 % xbrf=875) EOSINOPHILS RELATIVE PERCENT (BEAKER) (test 7 % oitb=683) BASOPHILS RELATIVE PERCENT (BEAKER) (test 1 % euan=139) NEUTROPHILS ABSOLUTE COUNT (BEAKER) (test 4.10 K/ L 1.80-8.00 qsri=609) LYMPHOCYTES ABSOLUTE COUNT (BEAKER) (test 1.40 K/ L 1.48-4.50 dpxe=690) MONOCYTES ABSOLUTE COUNT (BEAKER) (test 0.60 K/ L 0.00-1.30 lfcm=617) EOSINOPHILS ABSOLUTE COUNT (BEAKER) (test 0.50 K/ L 0.00-0.50 illy=902) BASOPHILS ABSOLUTE COUNT (BEAKER) (test 0.00 K/ L 0.00-0.20 dbyd=401) LEGIONELLA ANTIGEN, [id number] 22:05:00 Test Item Value Reference Range Comments L. PNEUMOPHILA SEROGP 1 Negative - see Negative for L. UR AG (BEAKER) (test comment pneumophila serogroup 1 idha=1132) antigen, suggesting no recent or current infection with this serogroup. Legionellosis cannot be ruled out since other serogroups and species may cause disease. STREP PNEUMONIAE [id number] 22:05:00 Test Item Value Reference Range Comments STREP PNEUMONIAE ANTIGEN Presumptive negative for Presumptive negative for (BEAKER) (test pneumococcal pneumonia - pneumococcal pneumonia - jucb=7539) see comment see commen Presumptive negative for pneumococcal pneumonia, suggesting no current or recent pneumococcal infection. Infection due to S. pneumoniae cannot be ruled out since the antigen present in the sample may be below the detection limit of the test.POCT-GLUCOSE [id number] 21:16:00 Test Item Value Reference Range Comments POC-GLUCOSE METER (BEAKER) 127 mg/dL 70-110 TESTED AT [facility] [address] [facility] (test gapm=9736) [facility] [address] POCT-GLUCOSE [id number] 18:08:00 Test Item Value Reference Range Comments POC-GLUCOSE METER (BEAKER) 242 mg/dL 70-110 TESTED AT [facility] [address] [facility] (test rgja=4950) [facility] [address] CT, CHEST, WITHOUT [id number] 15:33:00FINAL REPORT CT of the Chest dated [...] liver suspicious for hepatocellular carcinoma. Signed: Kathe Melvinort Verified Date/Time: 09/23/2017 15:33: 18 Reading Location: [facility] B1 C013Y CT Body Reading Room TISSUE [id number] 14:19: 00Surgical Pathology Report Case: [id number] Authorizing Provider: Narayan Reyes MD Collected : 09/20/2017 0908 Ordering Location: [facility] - Perioperative Received: 09/21/2017 0851 Services Pathologist: Lencho De La Garza MD Specimen: Polyp, Colon - Right/Ascending COLON, RIGHT/ASCENDING POLYP, COLONOSCOPY- POLYPOID COLONIC MUCOSA CONSISTENT WITH MUCOSAL TAG- NO ADENOMATOUS CHANGE OR MALIGNANCY IDENTIFIED Signing Pathologist Direct Phone Line: [phone] signed by Lencho De La Garza MD on 09/23/2017 at 2:19 [id number] and anemia; procedure is colonoscopy Polyp right/ascendingThe instrument, paperwork, container, and cassette all read [id number].Received in formalin labeled with the patient's name (Khadijah) and medical record number.Specimen A: Receivedin formalin labeled as "right/ascending polyp" is one tissue 3 x 3 x 1 mm, all in cassette A1. JF/ewThe following special studies were performed on this case and the interpretation is incorporated in the diagnostic report above:IDCV:[id number] 12:31:00 Test Item Value Reference Range Comments PROCALCITONIN (BEAKER) (test jryv=7946) 0.13 ng/mL <0.05 SEPSIS RISK (ng/mL)Low: 0.05-0.50Intermediate: 0.51-2.00High: & gt;=2.01POCT-GLUCOSE [id number] 11:53:00 Test Item Value Reference Range Comments POC-GLUCOSE METER (BEAKER) 227 mg/dL 70-110 TESTED AT [facility] [address] [facility] (test iwct=6607) [facility] [address] POCT-GLUCOSE [id number] 08:09:00 Test Item Value Reference Range Comments POC-GLUCOSE METER (BEAKER) 167 mg/dL 70-110 TESTED AT [facility] [address] [facility] (test oxsj=3445) [facility] [address] [id number] 08:05:00 Test Item Value Reference Range Comments MAGNESIUM (BEAKER) (test unzd=450) 1.5 mg/dL 1.5-3.0 COMPREHENSIVE METABOLIC [id number] 06:54:00 Test Item Value Reference Range Comments TOTAL PROTEIN (BEAKER) 6.0 gm/dL 6.0-8.5 (test jokb=507) ALBUMIN (BEAKER) (test 2.6 g/dL 3.5-5.0 xrxa=1821) ALKALINE PHOSPHATASE 96 U/L 30-115 (BEAKER) (test pxxh=508) BILIRUBIN TOTAL (BEAKER) 1.4 mg/dL 0.1-1.3 (test vbqf=644) SODIUM (BEAKER) (test 138 meq/L 135-148 kgrs=523) POTASSIUM (BEAKER) (test 3.0 meq/L 3.5-5.5 zggn=455) CHLORIDE (BEAKER) (test 101 meq/L 98-106 eshm=456) CO2 (BEAKER) (test 30 meq/L 20-31 gzvl=881) BLOOD UREA NITROGEN 10 mg/dL 10-26 (BEAKER) (test zkfp=557) CREATININE (BEAKER) (test 0.61 mg/dL 0.50-1.20 mvgu=771) GLUCOSE RANDOM (BEAKER) 142 mg/dL 70-110 (test rkwr=866) CALCIUM (BEAKER) (test 8.3 mg/dL 8.5-10.5 kmaz=655) AST (SGOT) (BEAKER) (test 52 U/L 5-40 yzcl=530) ALT (SGPT) (BEAKER) (test 27 U/L 6-50 npdq=415) EGFR (BEAKER) (test 129 mL/min/1.73 sq ESTIMATED GFR IS NOT qdfq=9739) m ACCURATE CREATININE CLEARANCE IN PREDICTING GLOMERULAR FILTRATION RATE. ESTIMATED GFR IS NOT APPLICABLE FOR DIALYSIS PATIENTS. CBC W/PLT COUNT & AUTO [id number] 06:24:00 Test Item Value Reference Range Comments WHITE BLOOD CELL COUNT (BEAKER) (test glyt=011) 6.4 K/ L 4.0-10.0 RED BLOOD CELL COUNT (BEAKER) (test summ=630) 2.97 M/ L 4.20-5.80 HEMOGLOBIN (BEAKER) (test bwbz=620) 9.0 GM/DL 13.0-16.8 HEMATOCRIT (BEAKER) (test zvvs=868) 28.1 % 40.0-50.0 MEAN CORPUSCULAR VOLUME (BEAKER) (test afmq=637) 94.6 fL 82.0-98.0 MEAN CORPUSCULAR HEMOGLOBIN (BEAKER) (test 30.3 pg 27.0-33.0 rukw=216) MEAN CORPUSCULAR HEMOGLOBIN CONC (BEAKER) (test 32.0 GM/DL 32.0-36.0 ooul=158) RED CELL DISTRIBUTION WIDTH (BEAKER) (test 17.2 % 12.0-15.0 sgik=671) PLATELET COUNT (BEAKER) (test iwnt=888) 135 K/CU MM 150-430 MEAN PLATELET VOLUME (BEAKER) (test uthl=192) 8.1 fL 6.5-10.5 NUCLEATED RED BLOOD CELLS (BEAKER) (test 0 /100 WBC 0-0 ctrd=922) NEUTROPHILS RELATIVE PERCENT (BEAKER) (test 53 % zqmq=673) LYMPHOCYTES RELATIVE PERCENT (BEAKER) (test 23 % nxlb=249) MONOCYTES RELATIVE PERCENT (BEAKER) (test 17 % hywy=054) EOSINOPHILS RELATIVE PERCENT (BEAKER) (test 6 % pggm=945) BASOPHILS RELATIVE PERCENT (BEAKER) (test 1 % ckbl=766) NEUTROPHILS ABSOLUTE COUNT (BEAKER) (test 3.40 K/ L 1.80-8.00 xtag=423) LYMPHOCYTES ABSOLUTE COUNT (BEAKER) (test 1.50 K/ L 1.48-4.50 plxz=448) MONOCYTES ABSOLUTE COUNT (BEAKER) (test 1.10 K/ L 0.00-1.30 prmg=462) EOSINOPHILS ABSOLUTE COUNT (BEAKER) (test 0.40 K/ L 0.00-0.50 prqr=629) BASOPHILS ABSOLUTE COUNT (BEAKER) (test 0.00 K/ L 0.00-0.20 tqmj=880) POCT-GLUCOSE [id number] 00:35:00 Test Item Value Reference Range Comments POC-GLUCOSE METER (BEAKER) 171 mg/dL 70-110 TESTED AT [facility] [address] [facility] (test nchp=9752) [facility] [address] [id number] 18:12:00Medical Cytology Report Case: [id number] Authorizing Provider: Tamanna Herrera MD Collected: 09/18/2017 1735 Ordering Location: [address] MEDICAL SURGICAL Received: 09/21/2017 1009 Pathologist: Miracle Kaiser MD Specimen: Pleural, Right RIGHT PLEURAL FLUID, CYTOLOGIC PREPARATION:NO MALIGNANT CELLS IDENTIFIED. Signing Pathologist Direct Phone Line: [phone] signed by Miracle Kaiser MD on 2017 at 6:12 [id number] bleedRight pleural cavityCollected: 09/18/20171734Received: 09/21/2017 344219 ml yellow fluid received fresh; 4 cytospinsAll cytologic preparations have been microscopically examined. The pertinent microscopic examination findings have been incorporated into the diagnosis rendered above.[facility]. [facility], Department of Pathology, [address] [place] [address], [place]. [facility], Department of Pathology, [address] [place] [address], [place]. [facility], Department of Pathology, [address] [place] [address], Tel TISSUE [id number] 16:29:00Surgical Pathology Report Case: [id number] Authorizing Provider: Narayan Reyes MD Collected: 09/19/2017 1138 Ordering Location: [address] MEDICAL SURGICAL Received: 2017 0828 Pathologist: Lencho De La Garza MD Specimen: Duodenum, bx DUODENUM, BIOPSY: - SUPERFICIAL FRAGMENTS OF UNREMARKABLE DUODENAL MUCOSA - NO ACTIVE INFLAMMATION, GRANULOMAS, FOAMY HISTIOCYTES, PARASITES, OR INCREASED INTRAEPITHELIAL LYMPHOCYTES IDENTIFIED - NO ADENOMATOUS CHANGE, DYSPLASIA OR MALIGNANCY IDENTIFIED Signing Pathologist Direct Phone Line: [phone] signed by Lencho De La Garza MD on 09/22/2017 at 4:29 [id number]; procedure upper endoscopy Duodenum The instrument, paperwork, container, and cassette all read [id number].Received in formalin labeled with the patient's name (Khadijah) and medical record number.Specimen A: Received in formalin labeled as "duodenum" is one tissue 3 x 3 x 1 mm with a few flecks of debris, all in cassette A1. JF/ewPOCT-GLUCOSE [id number] 16:14:00 Test Item Value Reference Range Comments POC-GLUCOSE METER (BEAKER) 221 mg/dL 70-110 TESTED AT [place] [address] [facility] (test pydc=4435) [facility] [address] [id number] 14:45:00 Test Item Value Reference Range Comments FERRITIN (BEAKER) (test siqd=970) 68 ng/mL 22-322 RAD, CHEST, 1 VIEW, NON [id number] 14:35:00Reason for exam:->pulmonary edemaShould this be performed [...] Verified Date/ Time: 09/22/2017 14:35:18 Reading Location: [facility] Diagnostic Imaging Reading Room - [facility] 1.310.12 Electronically signed by: TRAVIS GOMEZ M.D. on 02:35 PMIRON, TIBC, % SAT. (WITHOUT FERRITIN)2017-09-22 14:30:00 Test Item Value Reference Range Comments IRON (BEAKER) (test pmdf=020) 34 ug/dL 35-175 TOTAL IRON BINDING CAPACITY (BEAKER) (test 269 ug/dL 250-550 pyqn=206) IRON % SATURATION (2) (BEAKER) (test iopj=5215) 13 % 20-55 POCT-GLUCOSE [id number] 12:14:00 Test Item Value Reference Range Comments POC-GLUCOSE METER (BEAKER) 233 mg/dL 70-110 TESTED AT [facility] [address] [facility] (test tgae=7313) [facility] [address] U/S, ABDOMINAL, [id number] 11:12:00Reason for exam:->ascitesFINAL REPORT Technique: Limited abdominal ultrasound dated 09/22. HISTORY: Ascites check. COMPARISON: None IMPRESSION:Small amount of abdominal ascites is seen in all four quadrants. Nodular liver contour is compatible with cirrhosis. Signed: Jada Maddoxeport Verified Date/ Time: 09/22/2017 11:12:47 Reading Location: [facility] Radiology Reading Room [id number] 11:06:00 Test Item Value Reference Range Comments AMMONIA (BEAKER) (test szws=626) 66 mol/L 12-72 BLOOD GAS, [id number] 17:43:00 Test Item Value Reference Range Comments PH ARTERIAL (BEAKER) (test ihow=191) 7.52 7.35-7.45 PCO2 ARTERIAL (BEAKER) (test gkyj=992) 41 mmHg 35-45 PO2 ARTERIAL (BEAKER) (test zrkk=022) 60 mmHg 80-90 O2 SATURATION ARTERIAL (BEAKER) (test jyyp=102) 93.2 % 96.0-97.0 HCO3 ARTERIAL (BEAKER) (test cdit=473) 33 mmol/L 21-29 BASE EXCESS ARTERIAL (BEAKER) (test xiho=532) 9.1 mmol/L -2.0-3.0 PATIENT TEMPERATURE (BEAKER) (test sowl=9322) 37.0 C FIO2 (BEAKER) (test mlmj=5810) 45.0 % U/S, [id number] 16:39:00Reason for exam:->THORACENTESIS RIGHT SIDEFINAL REPORT EXAM: Limited ultrasound of right chest CLINICAL HISTORY: Pleural effusion FINDINGS: Limited evaluation of the right chest demonstrates trace free fluid in the rightpleural space. Thoracentesis was not performed. Signed: Rachel Malhotra MDReport Verified Date/Time: 09/21/2017 16:39 :54 Reading Location: [facility] Radiology Reading Room POCT-GLUCOSE [id number] 16:35: 00 Test Item Value Reference Range Comments POC-GLUCOSE METER (BEAKER) 138 mg/dL 70-110 TESTED AT [facility] [address] [facility] (test pgam=3227) [facility] [address] POCT-GLUCOSE [id number] 11:59:00 Test Item Value Reference Range Comments POC-GLUCOSE METER (BEAKER) 261 mg/dL 70-110 TESTED AT [facility] [address] [facility] (test dfwh=2305) [facility] [address] BODY FLUID CELL COUNT WITH [id number] 08:40:00 Test Item Value Reference Range Comments APPEARANCE FLUID (BEAKER) (test Slightly Hazy Clear vbkx=972) COLOR FLUID (BEAKER) (test Yellow Colorless, Straw neuc=713) RBC FLUID (BEAKER) (test 320 /uL <=1 dhkd=012) ADJUSTED WBC FLUID (BEAKER) 355 /cu mm <=5 (test qvsi=2786) LINING CELLS (BEAKER) (test 53 /cu mm <=1 izua=7847) NEUTROPHILS FLUID (BEAKER) 26 % (test hjmk=8804) LYMPHS FLUID (BEAKER) (test 43 % cypw=604) MONO/MACROPHAGE FLUID (BEAKER) 31 % (test bghu=316) EOSINOPHILS FLUID (BEAKER) 0 % (test izri=696) BASO FLUID (BEAKER) (test 0 % arir=065) INTERPRETATION-210 (BEAKER) No malignant cells (test uear=3827) identified. KBAY-XQPSXOTQBEQ-188 (BEAKER) Miracle Morales Kaiser (test mlqt=4080) CONTAINER BODY FLUID (BEAKER) EDTA Tube (test gapm=3592) BODY FLUID CULTURE + GRAM [id number] 08:19:00 Test Item Value Reference Range Comments CULTURE (BEAKER) (test lvbf=3272) No growth GRAM STAIN RESULT (BEAKER) (test 3+ White blood cells seen shrt=6802) GRAM STAIN RESULT (BEAKER) (test No organisms seen yirp=46945) POCT-GLUCOSE [id number] 07:38:00 Test Item Value Reference Range Comments POC-GLUCOSE METER (BEAKER) 157 mg/dL 70-110 TESTED AT [facility] [address] [facility] (test skeo=0259) [facility] [address] BASIC METABOLIC [id number] 06:50:00 Test Item Value Reference Range Comments SODIUM (BEAKER) (test 140 meq/L 135-148 hegq=665) POTASSIUM (BEAKER) (test 3.2 meq/L 3.5-5.5 xlyk=924) CHLORIDE (BEAKER) (test 102 meq/L 98-106 mzpc=107) CO2 (BEAKER) (test 28 meq/L 20-31 iyst=293) BLOOD UREA NITROGEN 11 mg/dL 10-26 (BEAKER) (test kixm=893) CREATININE (BEAKER) (test 0.61 mg/dL 0.50-1.20 ohjo=850) GLUCOSE RANDOM (BEAKER) 139 mg/dL 70-110 (test jjbj=224) CALCIUM (BEAKER) (test 7.8 mg/dL 8.5-10.5 ugdr=824) EGFR (BEAKER) (test 129 mL/min/1.73 sq m ESTIMATED GFR IS NOT ytcv=7052) ACCURATE CREATININE CLEARANCE IN PREDICTING GLOMERULAR FILTRATION RATE. ESTIMATED GFR IS NOT APPLICABLE FOR DIALYSIS PATIENTS. HEPATIC FUNCTION [id number] 06:50:00 Test Item Value Reference Range Comments TOTAL PROTEIN (BEAKER) (test kyfl=903) 5.6 gm/dL 6.0-8.5 ALBUMIN (BEAKER) (test txnh=2076) 2.4 g/dL 3.5-5.0 BILIRUBIN TOTAL (BEAKER) (test xqdw=348) 1.4 mg/dL 0.1-1.3 BILIRUBIN DIRECT (BEAKER) (test tbpl=863) 0.7 mg/dL 0.0-0.5 ALKALINE PHOSPHATASE (BEAKER) (test hpgp=311) 77 U/L 30-115 AST (SGOT) (BEAKER) (test oxpu=717) 54 U/L 5-40 ALT (SGPT) (BEAKER) (test zvzc=780) 24 U/L 6-50 CBC W/PLT COUNT & AUTO [id number] 06:37:00 Test Item Value Reference Range Comments WHITE BLOOD CELL COUNT (BEAKER) (test twrs=363) 6.5 K/ L 4.0-10.0 RED BLOOD CELL COUNT (BEAKER) (test nilg=930) 2.69 M/ L 4.20-5.80 HEMOGLOBIN (BEAKER) (test tgix=077) 8.2 GM/DL 13.0-16.8 HEMATOCRIT (BEAKER) (test lexq=378) 25.6 % 40.0-50.0 MEAN CORPUSCULAR VOLUME (BEAKER) (test kcem=455) 95.4 fL 82.0-98.0 MEAN CORPUSCULAR HEMOGLOBIN (BEAKER) (test 30.6 pg 27.0-33.0 itqb=944) MEAN CORPUSCULAR HEMOGLOBIN CONC (BEAKER) (test 32.1 GM/DL 32.0-36.0 vfkp=851) RED CELL DISTRIBUTION WIDTH (BEAKER) (test 16.2 % 12.0-15.0 skjq=323) PLATELET COUNT (BEAKER) (test jkyv=542) 124 K/CU MM 150-430 MEAN PLATELET VOLUME (BEAKER) (test mcfh=433) 8.2 fL 6.5-10.5 NUCLEATED RED BLOOD CELLS (BEAKER) (test 0 /100 WBC 0-0 lehf=289) NEUTROPHILS RELATIVE PERCENT (BEAKER) (test 61 % mxag=065) LYMPHOCYTES RELATIVE PERCENT (BEAKER) (test 21 % uduc=304) MONOCYTES RELATIVE PERCENT (BEAKER) (test 14 % euvi=908) EOSINOPHILS RELATIVE PERCENT (BEAKER) (test 3 % ypch=218) BASOPHILS RELATIVE PERCENT (BEAKER) (test 0 % nggm=674) NEUTROPHILS ABSOLUTE COUNT (BEAKER) (test 4.00 K/ L 1.80-8.00 nhjg=675) LYMPHOCYTES ABSOLUTE COUNT (BEAKER) (test 1.40 K/ L 1.48-4.50 taei=000) MONOCYTES ABSOLUTE COUNT (BEAKER) (test 0.90 K/ L 0.00-1.30 fafm=117) EOSINOPHILS ABSOLUTE COUNT (BEAKER) (test 0.20 K/ L 0.00-0.50 tutt=523) BASOPHILS ABSOLUTE COUNT (BEAKER) (test 0.00 K/ L 0.00-0.20 huxi=799) HEMOGLOBIN AND [id number] 06:36:00 Test Item Value Reference Range Comments HEMOGLOBIN (BEAKER) (test itzo=234) 8.2 GM/DL 13.0-16.8 HEMATOCRIT (BEAKER) (test pbdr=284) 25.6 % 40.0-50.0 RAD, CHEST, 1 VIEW, NON [id number] 03:55:00Reason for exam:->sob, h/o pleural effShould this [...] MDReport Verified Date/Time: 09/21/2017 03:55:11 Reading Location: [facility] B1 C013Y CT Body Reading Room HEPATITIS PANEL, [id number] 18:08:00 Test Item Value Reference Range Comments HEPATITIS A IGM ANTIBODY (BEAKER) (test Nonreactive Nonreactive mgqv=502) HEPATITIS B CORE IGM ANTIBODY (BEAKER) (test Nonreactive Nonreactive qycj=715) HEPATITIS C ANTIBODY (BEAKER) (test mnen=099) Nonreactive Nonreactive HEPATITIS B SURFACE ANTIGEN (2) (BEAKER) (test Nonreactive Nonreactive drwd=7358) HEMOGLOBIN AND [id number] 13:04:00 Test Item Value Reference Range Comments HEMOGLOBIN (BEAKER) (test prrd=547) 8.5 GM/DL 13.0-16.8 HEMATOCRIT (BEAKER) (test jszm=413) 27.6 % 40.0-50.0 POCT-GLUCOSE [id number] 08:36:00 Test Item Value Reference Range Comments POC-GLUCOSE METER (BEAKER) 173 mg/dL 70-110 TESTED AT [facility] [address] [facility] (test glcq=1815) [place] [address] BASIC METABOLIC [id number] 06:05:00 Test Item Value Reference Range Comments SODIUM (BEAKER) (test 140 meq/L 135-148 pmna=812) POTASSIUM (BEAKER) (test 3.3 meq/L 3.5-5.5 wueq=296) CHLORIDE (BEAKER) (test 102 meq/L 98-106 oniz=204) CO2 (BEAKER) (test 28 meq/L 20-31 dqmx=048) BLOOD UREA NITROGEN 20 mg/dL 10-26 (BEAKER) (test ipnd=531) CREATININE (BEAKER) (test 0.74 mg/dL 0.50-1.20 whqn=467) GLUCOSE RANDOM (BEAKER) 177 mg/dL 70-110 (test abrq=220) CALCIUM (BEAKER) (test 8.0 mg/dL 8.5-10.5 rjqj=850) EGFR (BEAKER) (test 103 mL/min/1.73 sq m ESTIMATED GFR IS NOT oalt=9817) ACCURATE CREATININE CLEARANCE IN PREDICTING GLOMERULAR FILTRATION RATE. ESTIMATED GFR IS NOT APPLICABLE FOR DIALYSIS PATIENTS. HEPATIC FUNCTION [id number] 06:05:00 Test Item Value Reference Range Comments TOTAL PROTEIN (BEAKER) (test eenn=478) 6.0 gm/dL 6.0-8.5 ALBUMIN (BEAKER) (test ywue=4816) 2.6 g/dL 3.5-5.0 BILIRUBIN TOTAL (BEAKER) (test lybm=888) 1.6 mg/dL 0.1-1.3 BILIRUBIN DIRECT (BEAKER) (test zdsq=083) 0.8 mg/dL 0.0-0.5 ALKALINE PHOSPHATASE (BEAKER) (test mngd=581) 82 U/L 30-115 AST (SGOT) (BEAKER) (test wepw=015) 66 U/L 5-40 ALT (SGPT) (BEAKER) (test bzxf=450) 28 U/L 6-50 CBC W/PLT COUNT & AUTO [id number] 05:38:00 Test Item Value Reference Range Comments WHITE BLOOD CELL COUNT (BEAKER) (test cdqq=642) 12.1 K/ L 4.0-10.0 RED BLOOD CELL COUNT (BEAKER) (test ivcj=114) 2.56 M/ L 4.20-5.80 HEMOGLOBIN (BEAKER) (test afre=801) 8.0 GM/DL 13.0-16.8 HEMATOCRIT (BEAKER) (test fdoc=495) 24.6 % 40.0-50.0 MEAN CORPUSCULAR VOLUME (BEAKER) (test yfjo=824) 96.0 fL 82.0-98.0 MEAN CORPUSCULAR HEMOGLOBIN (BEAKER) (test 31.2 pg 27.0-33.0 bcxw=917) MEAN CORPUSCULAR HEMOGLOBIN CONC (BEAKER) (test 32.5 GM/DL 32.0-36.0 iemz=025) RED CELL DISTRIBUTION WIDTH (BEAKER) (test 16.3 % 12.0-15.0 qats=474) PLATELET COUNT (BEAKER) (test dtoh=077) 148 K/CU MM 150-430 MEAN PLATELET VOLUME (BEAKER) (test envc=785) 8.2 fL 6.5-10.5 NUCLEATED RED BLOOD CELLS (BEAKER) (test 0 /100 WBC 0-0 glbx=155) NEUTROPHILS RELATIVE PERCENT (BEAKER) (test 76 % dgnq=900) LYMPHOCYTES RELATIVE PERCENT (BEAKER) (test 10 % blby=269) MONOCYTES RELATIVE PERCENT (BEAKER) (test 13 % fnew=326) EOSINOPHILS RELATIVE PERCENT (BEAKER) (test 0 % axtc=102) BASOPHILS RELATIVE PERCENT (BEAKER) (test 0 % emco=571) NEUTROPHILS ABSOLUTE COUNT (BEAKER) (test 9.20 K/ L 1.80-8.00 zwkn=312) LYMPHOCYTES ABSOLUTE COUNT (BEAKER) (test 1.20 K/ L 1.48-4.50 xdnr=260) MONOCYTES ABSOLUTE COUNT (BEAKER) (test 1.60 K/ L 0.00-1.30 sams=497) EOSINOPHILS ABSOLUTE COUNT (BEAKER) (test 0.00 K/ L 0.00-0.50 ezkf=736) BASOPHILS ABSOLUTE COUNT (BEAKER) (test 0.00 K/ L 0.00-0.20 jhbp=696) POCT-GLUCOSE [id number] 15:55:00 Test Item Value Reference Range Comments POC-GLUCOSE METER (BEAKER) 277 mg/dL 70-110 TESTED AT [facility] [address] [facility] (test parn=1669) [facility] [address] [id number] 15:43:00 Test Item Value Reference Range Comments MAGNESIUM (BEAKER) (test gsdr=498) 1.9 mg/dL 1.5-3.0 BASIC METABOLIC [id number] 15:43:00 Test Item Value Reference Range Comments SODIUM (BEAKER) (test 136 meq/L 135-148 ivny=559) POTASSIUM (BEAKER) (test 3.8 meq/L 3.5-5.5 evox=571) CHLORIDE (BEAKER) (test 101 meq/L 98-106 mpln=150) CO2 (BEAKER) (test 24 meq/L 20-31 vqsw=908) BLOOD UREA NITROGEN 23 mg/dL 10-26 (BEAKER) (test ktqz=714) CREATININE (BEAKER) (test 0.88 mg/dL 0.50-1.20 apun=598) GLUCOSE RANDOM (BEAKER) 284 mg/dL 70-110 (test qyws=254) CALCIUM (BEAKER) (test 8.1 mg/dL 8.5-10.5 sbpn=776) EGFR (BEAKER) (test 84 mL/min/1.73 sq m ESTIMATED GFR IS NOT zmcd=4116) ACCURATE CREATININE CLEARANCE IN PREDICTING GLOMERULAR FILTRATION RATE. ESTIMATED GFR IS NOT APPLICABLE FOR DIALYSIS PATIENTS. HEMOGLOBIN AND [id number] 15:37:00 Test Item Value Reference Range Comments HEMOGLOBIN (BEAKER) (test gmmx=487) 8.2 GM/DL 13.0-16.8 HEMATOCRIT (BEAKER) (test nzra=341) 25.9 % 40.0-50.0 POCT-GLUCOSE [id number] 10:38:00 Test Item Value Reference Range Comments POC-GLUCOSE METER (BEAKER) 224 mg/dL 70-110 TESTED AT [facility] [address] [facility] (test maek=3130) [facility] [address] HEMOGLOBIN [id number] 09:10:00 Test Item Value Reference Range Comments HEMOGLOBIN A1C (BEAKER) (test fqfb=859) 5.5 % 4.3-6.1 TROPONIN [id number] 06:50:00 Test Item Value Reference Range Comments TROPONIN I (BEAKER) (test vmkr=634) 0.49 ng/mL 0.00-0.15 Troponin I (TnI) levels [...] and persistent tachyarrhythmia.RAD, CHEST, 1 VIEW, NON [id number] 06:49:00Reason for exam:->dyspneaShould this be performed at [...] MDReport Verified Date/Time: 09/19/2017 06:49:48 Reading Location: [facility] C013Y CT Body Reading Room HEPATIC FUNCTION [id number] 06:40:00 Test Item Value Reference Range Comments TOTAL PROTEIN (BEAKER) (test yawp=742) 6.6 gm/dL 6.0-8.5 ALBUMIN (BEAKER) (test zuao=2806) 2.9 g/dL 3.5-5.0 BILIRUBIN TOTAL (BEAKER) (test nswv=983) 1.8 mg/dL 0.1-1.3 BILIRUBIN DIRECT (BEAKER) (test ldwg=893) 1.0 mg/dL 0.0-0.5 ALKALINE PHOSPHATASE (BEAKER) (test bzoz=925) 94 U/L 30-115 AST (SGOT) (BEAKER) (test vwmv=264) 70 U/L 5-40 ALT (SGPT) (BEAKER) (test ishq=815) 30 U/L 6-50 LIPID [id number] 06:39:00 Test Item Value Reference Range Comments TRIGLYCERIDES (BEAKER) (test weuh=736) 91 mg/dL CHOLESTEROL (BEAKER) (test lwsz=575) 152 mg/dL HDL CHOLESTEROL (BEAKER) (test lohl=190) 16 mg/dL LDL CHOLESTEROL CALCULATED (BEAKER) (test 118 mg/dL osbp=798) Triglyceride Reference Range: Low Risk <150 Borderline 150- 199 High Risk 200-499 Very High Risk >=500Cholesterol Reference Range: Low Risk <200 Borderline 200-239 High Risk > 240HDL Cholesterol Reference Range: Low Risk >=60 High Risk <40LDL Cholesterol Reference Range: Optimal <100 Near Optimal 100-129 Borderline 130-159 High 160-189 Very High >=190BASIC METABOLIC [id number] 06:39:00 Test Item Value Reference Range Comments SODIUM (BEAKER) (test 139 meq/L 135-148 yzvm=252) POTASSIUM (BEAKER) (test 4.1 meq/L 3.5-5.5 ybim=635) CHLORIDE (BEAKER) (test 104 meq/L 98-106 nhrh=120) CO2 (BEAKER) (test 24 meq/L 20-31 fdzv=571) BLOOD UREA NITROGEN 21 mg/dL 10-26 (BEAKER) (test lpmt=367) CREATININE (BEAKER) (test 0.77 mg/dL 0.50-1.20 ytjp=074) GLUCOSE RANDOM (BEAKER) 206 mg/dL 70-110 (test vjxg=936) CALCIUM (BEAKER) (test 8.2 mg/dL 8.5-10.5 yosv=950) EGFR (BEAKER) (test 98 mL/min/1.73 sq m ESTIMATED GFR IS NOT jumw=2099) ACCURATE CREATININE CLEARANCE IN PREDICTING GLOMERULAR FILTRATION RATE. ESTIMATED GFR IS NOT APPLICABLE FOR DIALYSIS PATIENTS. CBC W/PLT COUNT & AUTO [id number] 06:33:00 Test Item Value Reference Range Comments WHITE BLOOD CELL COUNT 12.3 K/ L 4.0-10.0 (BEAKER) (test hzzh=886) RED BLOOD CELL COUNT (BEAKER) 2.93 M/ L 4.20-5.80 (test lqnl=270) HEMOGLOBIN (BEAKER) (test 8.6 GM/DL 13.0-16.8 yznu=310) HEMATOCRIT (BEAKER) (test 28.6 % 40.0-50.0 hrhj=890) MEAN CORPUSCULAR VOLUME 97.6 fL 82.0-98.0 (BEAKER) (test zsaj=107) MEAN CORPUSCULAR HEMOGLOBIN 29.4 pg 27.0-33.0 (BEAKER) (test mxvp=018) MEAN CORPUSCULAR HEMOGLOBIN 30.1 GM/DL 32.0-36.0 CONC (BEAKER) (test ghbe=412) RED CELL DISTRIBUTION WIDTH 16.0 % 12.0-15.0 (BEAKER) (test cdgn=865) PLATELET COUNT (BEAKER) (test 157 K/CU MM 150-430 Discordant result compared nmeu=331) to previous result. Clinical correlation required. MEAN PLATELET VOLUME (BEAKER) 8.8 fL 6.5-10.5 (test llfo=921) NUCLEATED RED BLOOD CELLS 0 /100 WBC 0-0 (BEAKER) (test oulh=241) NEUTROPHILS RELATIVE PERCENT 84 % (BEAKER) (test moys=590) LYMPHOCYTES RELATIVE PERCENT 7 % (BEAKER) (test kyyq=248) MONOCYTES RELATIVE PERCENT 9 % (BEAKER) (test xghk=494) EOSINOPHILS RELATIVE PERCENT 0 % (BEAKER) (test dykr=513) BASOPHILS RELATIVE PERCENT 0 % (BEAKER) (test syfn=943) NEUTROPHILS ABSOLUTE COUNT 10.30 K/ L 1.80-8.00 (BEAKER) (test hmwd=355) LYMPHOCYTES ABSOLUTE COUNT 0.80 K/ L 1.48-4.50 (BEAKER) (test eyej=259) MONOCYTES ABSOLUTE COUNT 1.10 K/ L 0.00-1.30 (BEAKER) (test fcmk=758) EOSINOPHILS ABSOLUTE COUNT 0.00 K/ L 0.00-0.50 (BEAKER) (test qjym=601) BASOPHILS ABSOLUTE COUNT 0.00 K/ L 0.00-0.20 (BEAKER) (test fwjw=157) PROTHROMBIN [id number] 06:30:00 Test Item Value Reference Range Comments PROTIME (BEAKER) (test fkym=222) 21.1 seconds 11.8-14.4 INR (BEAKER) (test snws=494) 1.8 1.2-1.5 RECOMMENDED COUMADIN/WARFARIN INR THERAPY RANGESSTANDARD DOSE: 2.0 - 3.0 Includes: PROPHYLAXIS forvenous thrombosis, systemic embolization; TREATMENT for venous thrombosis and/or pulmonary embolus.HIGH RISK: Target INR is 2.5-3.5 for patients with mechanical heart valves.B-TYPE NATRIURETIC FACTOR (BNP)2017-08 06:06:00 Test Item Value Reference Range Comments B-TYPE NATRIURETIC PEPTIDE (BEAKER) (test 726 pg/mL 0-100 llez=297) TROPONIN [id number] 02:21:00 Test Item Value Reference Range Comments TROPONIN I (BEAKER) (test bdar=416) 0.61 ng/mL 0.00-0.15 Troponin I (TnI) levels [...] acute neurological disease, and persistent tachyarrhythmia.HEMOGLOBIN AND [id number] 01: 53:00 Test Item Value Reference Range Comments HEMOGLOBIN (BEAKER) (test bqtq=262) 8.2 GM/DL 13.0-16.8 HEMATOCRIT (BEAKER) (test rxbk=607) 25.7 % 40.0-50.0 TYPE AND SCREEN, [id number] 19:59:00 Test Item Value Reference Range Comments ABO/RH AUTOMATED (BEAKER) (test xreh=0477) O POSITIVE AB SCREEN (BEAKER) (test oefn=903) NEGATIVE RAD, CHEST, 1 VIEW, NON [id number] 19:20:00PT IN RAD ROOM 1Reason for exam:- [...] Verified Date/Time : 09/18/2017 19:20:43 Reading Location: [facility] B1 [id number] Consult Reading Room BLOOD GAS, [id number] 18:57:00 Test Item Value Reference Range Comments PH ARTERIAL (BEAKER) (test bgei=553) 7.45 7.35-7.45 PCO2 ARTERIAL (BEAKER) (test iadh=310) 38 mmHg 35-45 PO2 ARTERIAL (BEAKER) (test nanw=148) 84 mmHg 80-90 O2 SATURATION ARTERIAL (BEAKER) (test zyuj=522) 96.8 % 96.0-97.0 HCO3 ARTERIAL (BEAKER) (test hzdd=224) 26 mmol/L 21-29 BASE EXCESS ARTERIAL (BEAKER) (test olkf=953) 2.0 mmol/L -2.0-3.0 PATIENT TEMPERATURE (BEAKER) (test ybmd=4951) 37.0 C FIO2 (BEAKER) (test nrtt=2009) 100.0 % U/S, [id number] 18:46:00Laterality?->RightReason for exam:-> Right effusioinFINAL REPORT Exam: [...] condition. Impression: Ultrasound guided right thoracentesis. Signed: Rachel Malhotra MDReport Verified Date/Time: 201718:46:53 Reading Location: [facility] Radiology Reading Room LACTATE DEHYDROGENASE (LDH ), BODY [id number] 18:31:00 Test Item Value Reference Range Comments LACTATE DEHYDROGENASE FLUID (BEAKER) 104 U/L Light's criteria identifies (test bhmh=079) effusions if one or more are pre Absence of reference range indicates that normals have not been defined.Assay performance has not been validated for this type of specimen.GLUCOSE, BODY [id number] 18:31:00 Test Item Value Reference Range Comments GLUCOSE, BODY FLUID (BEAKER) (test nbmp=9805) 234 mg/dL 70-110 Absence of reference range indicates that normals have not been defined.Assay performance has not been validated for this type of specimen.ALBUMIN, BODY [id number] 18:31:00 Test Item Value Reference Range Comments ALBUMIN FLUID (BEAKER) (test ccht=177) 0.7 gm/dL Reference Range: No Normals Assay performance has not been validated for this type of specimen.PROTEIN, BODY [id number] 18:31:00 Test Item Value Reference Range Comments PROTEIN FLUID (BEAKER) (test 1.0 g/dL Light's criteria identifies dtfk=498) effusions if one or more are pre Absence of reference range indicates that normals have not been defined.Assay performance has not been validated for this type of specimen.POCT-GLUCOSE [id number] 16:46:00 Test Item Value Reference Range Comments POC-GLUCOSE METER (BEAKER) 250 mg/dL 70-110 TESTED AT [place] [id number] [facility] (test myuh=0995) [facility] [address] [id number] 16:42:00 Test Item Value Reference Range Comments PROCALCITONIN (BEAKER) (test ujdo=4231) 0.29 ng/mL <0.05 SEPSIS RISK (ng/mL)Low: 0.05-0.50Intermediate: 0.51-2.00High: & gt;=2.01LACTATE DEHYDROGENASE (LDH)2017-09-18 15:36:00 Test Item Value Reference Range Comments LACTATE DEHYDROGENASE (BEAKER) 344 U/L 125-225 Specimen slightly hemolyzed (test vnor=623) TROPONIN [id number] 15:31:00 Test Item Value Reference Range Comments TROPONIN I (BEAKER) (test dkma=164) 0.43 ng/mL 0.00-0.15 Troponin I (TnI) levels [...] and persistent tachyarrhythmia.CREATINE KINASE (CK), TOTAL AND [id number] 15:28:00 Test Item Value Reference Range Comments CREATINE KINASE TOTAL (BEAKER) (test jwlf=069) 153 U/L 30-300 CREATINE KINASE-MB (BEAKER) (test shzj=609) 6.4 ng/mL 0.0-4.9 CREATINE KINASE-MB INDEX (BEAKER) (test fnpu=477) 4.2 % CK-MB Reference Range:<5 Normal5-10 Borderline>10 AbnormalBASIC METABOLIC [id number] 15:20:00 Test Item Value Reference Range Comments SODIUM (BEAKER) (test 138 meq/L 135-148 qtbj=220) POTASSIUM (BEAKER) (test 3.9 meq/L 3.5-5.5 Specimen slightly rndz=777) hemolyzed CHLORIDE (BEAKER) (test 103 meq/L 98-106 ejbi=782) CO2 (BEAKER) (test 22 meq/L 20-31 tcht=408) BLOOD UREA NITROGEN 16 mg/dL 10-26 (BEAKER) (test iluj=380) CREATININE (BEAKER) (test 0.73 mg/dL 0.50-1.20 Specimen slightly ryks=573) hemolyzed GLUCOSE RANDOM (BEAKER) 237 mg/dL 70-110 (test abor=056) CALCIUM (BEAKER) (test 8.3 mg/dL 8.5-10.5 onos=370) EGFR (BEAKER) (test 104 mL/min/1.73 sq m ESTIMATED GFR IS NOT jggh=8163) ACCURATE CREATININE CLEARANCE IN PREDICTING GLOMERULAR FILTRATION RATE. ESTIMATED GFR IS NOT APPLICABLE FOR DIALYSIS PATIENTS. PROTHROMBIN [id number] 15:16:00 Test Item Value Reference Range Comments PROTIME (BEAKER) (test pzry=280) 21.5 seconds 11.8-14.4 INR (BEAKER) (test reac=708) 1.9 1.2-1.5 RECOMMENDED COUMADIN/WARFARIN INR THERAPY RANGESSTANDARD DOSE: 2.0 - 3.0 Includes: PROPHYLAXIS forvenous thrombosis, systemic embolization; TREATMENT for venous thrombosis and/or pulmonary embolus.HIGH RISK: Target INR is 2.5-3.5 for patients with mechanical heart valves.CBC W/PLT COUNT & AUTO [id number] 15:06:00 Test Item Value Reference Range Comments WHITE BLOOD CELL COUNT (BEAKER) (test tbps=895) 9.3 K/ L 4.0-10.0 RED BLOOD CELL COUNT (BEAKER) (test haoc=583) 2.48 M/ L 4.20-5.80 HEMOGLOBIN (BEAKER) (test ptzb=133) 7.9 GM/DL 13.0-16.8 HEMATOCRIT (BEAKER) (test lsrc=397) 24.4 % 40.0-50.0 MEAN CORPUSCULAR VOLUME (BEAKER) (test bfmb=169) 98.2 fL 82.0-98.0 MEAN CORPUSCULAR HEMOGLOBIN (BEAKER) (test 31.7 pg 27.0-33.0 vdzd=932) MEAN CORPUSCULAR HEMOGLOBIN CONC (BEAKER) (test 32.3 GM/DL 32.0-36.0 negp=970) RED CELL DISTRIBUTION WIDTH (BEAKER) (test 15.5 % 12.0-15.0 kwex=607) PLATELET COUNT (BEAKER) (test hvyv=265) 213 K/CU MM 150-430 MEAN PLATELET VOLUME (BEAKER) (test rbcg=661) 8.5 fL 6.5-10.5 NUCLEATED RED BLOOD CELLS (BEAKER) (test 0 /100 WBC 0-0 ibjp=339) NEUTROPHILS RELATIVE PERCENT (BEAKER) (test 86 % ssus=677) LYMPHOCYTES RELATIVE PERCENT (BEAKER) (test 6 % zwua=483) MONOCYTES RELATIVE PERCENT (BEAKER) (test 8 % pbzf=978) EOSINOPHILS RELATIVE PERCENT (BEAKER) (test 0 % teai=619) BASOPHILS RELATIVE PERCENT (BEAKER) (test 0 % wpee=564) NEUTROPHILS ABSOLUTE COUNT (BEAKER) (test 8.00 K/ L 1.80-8.00 kbns=133) LYMPHOCYTES ABSOLUTE COUNT (BEAKER) (test 0.60 K/ L 1.48-4.50 lkwv=055) MONOCYTES ABSOLUTE COUNT (BEAKER) (test 0.70 K/ L 0.00-1.30 hgwx=062) EOSINOPHILS ABSOLUTE COUNT (BEAKER) (test 0.00 K/ L 0.00-0.50 jnib=013) BASOPHILS ABSOLUTE COUNT (BEAKER) (test 0.00 K/ L 0.00-0.20 fwki=906) PLATELET [id number] 15:04:00 Test Item Value Reference Range Comments PLATELET COUNT (BEAKER) (test kxwg=972) 213 K/CU MM 150-430
[2019-09-16 09:47] LABS: Absolute Lymphocytes (CBC) 1.1 K/uL (0.7-4.9); Basophils % 0.3 % (0-1.3); Lymphocytes % 20.1 % (15.3-44.8); MPV 8.6 fL (7.6-11.3); RBC Red Blood Cell Count 3.44 M/uL (4.33-5.43)
[2019-09-16 09:59] LABS: Protime INR 1.42
[2019-09-16 10:09] LABS: Albumin 2.6 g/dL (3.4-5.0); Bilirubin Total 2.9 mg/dL (0.2-1.0); Potassium 3.9 mmol/L (3.5-5.1); Protein, Total 7.1 g/dL (6.4-8.2); Troponin (Emerg Dept Use Only) 0.02 ng/mL (0.0-0.045)
[2019-09-16] MEDS ORDERED: NA CHLORIDE 0.9% 2,000 ML ONE (10:11)
--- NOTE | 2019-09-16 10:11 | RAD REPORT ---
EXAM DESCRIPTION: RAD - Chest Single View - 09/16/2019 9:43 am CLINICAL HISTORY: sepsis COMPARISON: Chest Single View dated 08/05/2019; Chest Single View dated 03/26/2019; Chest Single View dated 07/25/2018; Chest Single View dated 06/25/2018 TECHNIQUE: AP portable chest image was obtained 09/16/2019 9:43 am . FINDINGS: No dense consolidation. Minimal patchy left base opacification is present. This is in part due to low lung volumes on the left. A minimal left base early pneumonia is possible and patient can be monitored. Heart and vasculature are normal. No measurable pleural effusion and no pneumothorax. No acute bony abnormality seen. No acute aortic findings suspected. IMPRESSION: Chest is not substantially different from comparison. Low lung volume on the left accent uates left base. A small or early left lung base pneumonia is not excluded. No suspicion for significant failure or volume overload.
[2019-09-16 10:17] LABS: Anisocytosis 2+; Blood Morphology Comment NOTED (NOT SEEN); Platelet Estimate DECR; Urine White Blood Cell Casts OK
[2019-09-16 10:44] LABS: Urine Blood NEGATIVE (NEG); Urine Glucose NEGATIVE (NEG); Urine Protein NEGATIVE (NEG); Urine pH 7.5 (5.0-7.0)
--- NOTE | 2019-09-16 11:01 | EDPHYS ---
Physician Documentation [facility] Name: Jean Lucio III Age: 79 yrs Sex: Male : 1940 Arrival Date: 09/16/2019 Time: 09:20 Bed 2 Private MD: ED Physician Len Lei HPI: 09/16 14:08 This 79 yrs old Male presents to ER via EMS with complaints of Fall Injury. kdr 14:08 Details of fall: The patient fell from a height, off furniture, from a supine position, kdr out of bed. Onset: The symptoms/episode began/occurred just prior to arrival, this morning. Associated injuries: The patient sustained no obvious injury, injury to the head. Severity of symptoms: At their worst the symptoms were mild. The patient has not experienced similar symptoms in the past. Historical: - Allergies: 11:52 No Known Allergies; hb - Home Meds: 11:52 carvedilol 3.125 mg Oral tab 1 tab 2 times per day [Active]; furosemide 40 mg Oral tab hb 1 tab once daily [Active]; lisinopril 2.5 mg Oral tab 1 tab once daily [Active]; pantoprazole 40 mg Oral TbEC 1 tab 2 times per day [Active]; spironolactone 25 mg Oral tab 1 tab once daily [Active]; tamsulosin 0.4 mg Oral cp24 1 cap once daily [Active]; - PMHx: 11:52 Anemia; Angiodysplasia of duodenum; CAD s/p [place]; Cholithiasis; COPD; Diabetes - NIDDM; hb diagnosed with cancer at [place], did not seek treatment; etoh abuse; Gastric varices; GERD; Hyperlipidemia; Hypertension; liver cancer; metabolic encephalopathy; Myocardial infarction; Pneumonia; rhabdomyolysis; UTI; - PSHx: 11:52 None; hb - Immunization history: Last tetanus immunization: unknown. ROS: 14:08 Constitutional: The patient is unable to give any history with his altered mental kdr status Exam: 14:08 Constitutional: This is a well developed, well nourished patient who is somnolent and kdr in no acute distress. He is poorly responsive but when RT attempts to suction his airway, he becomes very aggitated and is able to swat away hands and resist therapy Head/Face: Normocephalic, atraumatic. Eyes: Pupils equal round and reactive to light, extra-ocular motions intact. Lids and lashes normal. Conjunctiva and sclera are non-icteric and not injected. Cornea within normal limits. Periorbital areas with no swelling, redness, or edema. Neck: Trachea midline, no thyromegaly or masses palpated, and no cervical lymphadenopathy. Supple, full range of motion without nuchal rigidity, or vertebral point tenderness. No Meningismus. Chest/axilla: Normal chest wall appearance and motion. Nontender with no deformity. No lesions are appreciated. Cardiovascular: Regular rate and rhythm with a normal S1 and S2. No gallops, murmurs, or rubs. Normal PMI, no JVD. No pulse deficits. Respiratory: Lungs have equal breath sounds bilaterally, clear to auscultation and percussion. No rales, rhonchi or wheezes noted. No increased work of breathing, no retractions or nasal flaring. Abdomen/GI: Soft, non-tender, with normal bowel sounds. No distension or tympany. No guarding or rebound. No evidence of tenderness throughout. Back: No spinal tenderness. No costovertebral tenderness. Full range of motion. Skin: Warm, dry with normal turgor. Normal color with no rashes, no lesions, and no evidence of cellulitis. MS/ Extremity: Pulses equal, no cyanosis. Neurovascular intact. Full, normal range of motion. Vital Signs: 09:10 BP 151 / 74; Pulse 94; Resp 23; Temp 96.7(TE); Pulse Ox 99% on R/A; Weight 83.91 kg; hb Height 5 ft. 10 in. (177.80 cm); Pain 5/10; 09:38 BP 162 / 63; Pulse 93; Resp 19; Pulse Ox 100% ; sv 10:00 BP 147 / 63; Pulse 90; Resp 16; Pulse Ox 98% ; sv 10:30 BP 154 / 65; Pulse 105; Resp 20; Pulse Ox 100% ; sv 11:00 BP 162 / 62; Pulse 92; Resp 15; Pulse Ox 100% ; sv 11:40 BP 171 / 83; Pulse 98; Resp 15; Pulse Ox 100% on R/A; hb 12:30 BP 164 / 92; Pulse 102; Resp 19; Pulse Ox 100% ; sv 09:10 Body Mass Index 26.54 (83.91 kg, 177.80 cm) hb 09:10 [place]-Courtney (FACES) hb Owen Coma Score: 12:30 Eye Response: to voice(3). Verbal Response: confused(4). Motor Response: withdraws from sv pain(4). Total: 11. MDM: 11:00 Patient medically screened. kdr 14:08 Data reviewed: vital signs, nurses notes, lab test result(s), radiologic studies. kdr Counseling: I had a detailed discussion with the patient and/or guardian regarding: the historical points, exam findings, and any diagnostic results supporting the discharge/admit diagnosis, lab results, radiology results, the need for further work-up and treatment in the hospital. Physician consultation: Mamadou Grove MD. 09/16 09:32 Order name: Amylase, Serum; Complete Time: 10:32 09/16 09:32 Order name: Basic Metabolic Panel; Complete Time: 10:32 09/16 09:32 Order name: Blood Culture Adult (2) 09/16 09:32 Order name: CBC with Diff; Complete Time: 10:32 09/16 09:32 Order name: Ckmb; Complete Time: 10:32 09/16 09:32 Order name: CPK; Complete Time: 10:32 09/16 09:32 Order name: Lactate; Complete Time: 10:32 09/16 09:32 Order name: LFT's; Complete Time: 10:32 09/16 09:32 Order name: Lipase; Complete Time: 10:32 09/16 09:32 Order name: Procalcitonin; Complete Time: 10:58 09/16 09:32 Order name: Protime (+inr); Complete Time: 10:32 09/16 09:32 Order name: Ptt, Activated; Complete Time: 10:32 09/16 09:32 Order name: Troponin (emerg Dept Use Only); Complete Time: 10:32 09/16 09:32 Order name: Urine Microscopic Only 09/16 09:32 Order name: Chest Single View XRAY; Complete Time: 10:32 09/16 09:32 Order name: Accucheck; Complete Time: 12:46 09/16 09:32 Order name: Cardiac monitoring; Complete Time: 10:31 09/16 09:32 Order name: EKG - Nurse/Tech; Complete Time: 10:31 sv 09/16 09:32 Order name: IV Saline Lock - Large Bore; Complete Time: 10:31 sv 09/16 09:32 Order name: Labs collected and sent; Complete Time: 10:31 sv 09/16 09:32 Order name: O2 Per Protocol; Complete Time: 10:31 sv 09/16 09:32 Order name: O2 Sat Monitoring; Complete Time: 10:36 sv 09/16 09:32 Order name: Urine Dipstick-Ancillary (obtain specimen); Complete Time: 10:36 09/16 10:18 Order name: CBC Smear Scan; Complete Time: 10:32 EDNC 09/16 10:39 Order name: Urine Dipstick--Ancillary (enter results) eb 09/16 10:47 Order name: Urine Dipstick-Ancillary; Complete Time: 10:58 EDNC 09/16 11:23 Order name: EKG; Complete Time: 11:32 sv 09/16 11:44 Order name: CT Head C Spine [facility] 09/16 12:33 Order name: CT EDNC 09/16 10:31 Order name: [place]; Complete Time: 10:31 hb Administered Medications: 09:44 Drug: NS 0.9% (30 ml/kg) 30 ml/kg Route: IV; Rate: bolus; Site: right wrist; dm5 11:00 Follow up: Response: No adverse reaction; IV Status: Completed infusion; IV Intake: sv 2490ml Disposition: 09/16/19 11:00 Hospitalization ordered by Mamadou Grove for Observation. Preliminary diagnosis is Altered mental status, unspecified. - Bed requested for Telemetry/MedSurg (observation). - Status is Observation. em - Condition is Fair. - Problem is new. - Symptoms are unchanged. Signatures: Dispatcher [facility] Kandice Bowman RN RN dm5 June Florence RN Len Park MD MD kdr Munoz, Edgar, RN RN em Baxter, Heather, RN Aviva Aguilera Corrections: (The following items were deleted from the chart) 11:47 11:00 Hospitalization Ordered by Mamadou Grove MD for Observation. Preliminary diagnosis eb is Altered mental status, unspecified. Bed requested for Telemetry/MedSurg (observation). Status is Observation. Condition is Fair. Problem is new. Symptoms are unchanged. kdr 13:02 11:47 09/16/2019 11:00 Hospitalization Ordered by Mamadou Grove MD for Observation. em Preliminary diagnosis is Altered mental status, unspecified. Bed requested for Telemetry/MedSurg (observation). Status is Observation. Condition is Fair. Problem is new. Symptoms are unchanged. eb
--- NOTE | 2019-09-16 11:01 | ER ---
Nurse's Notes [facility] Name: Jean Lucio III Age: 79 yrs Sex: Male : 1940 Arrival Date: 09/16/2019 Time: 09:20 Bed 2 Private MD: Diagnosis: Altered mental status, unspecified Presentation: 09/16 09:08 Presenting complaint: EMS states: Found supine next to bed, last known normal was 1030 hb yesterday. AOx1, incontinent of urine. 09:08 Transition of care: patient was not received from another setting of care. Onset of hb symptoms was September 16, 2019. Risk Assessment: Do you want to hurt yourself or someone else? Patient reports no desire to harm self or others. Care prior to arrival: IV initiated. 20 GA, in the left forearm, Glucose check: 156. 09:08 Method Of Arrival: EMS: [facility] hb 09:08 Acuity: RITA 2 hb 09:10 Initial Sepsis Screen: Does the patient meet any 2 criteria? RR > 20 per min. Temp sv <36.0*C (96.8*F)) or > 38.3*C (100.9*F). Altered Mental Status. HR > 90 bpm. Yes Does the patient have a suspected source of infection? Yes: Productive cough/pneumonia Other: unknown if cough is productive. Trauma Activation: Alert Physician: ED Physician; Name: Dr Lei; Notified At: 09:12; Arrived At: 09:12 Physician: General Surgeon; Name: ; Notified At: 09:12; Arrived At: Physician: Radiology; Name: Shala Cedillo; Notified At: 09:12; Arrived At: 09:12 Physician: Respiratory; Name: ; Notified At: 09:12; Arrived At: Physician: Lab; Name: ; Notified At: 09:12; Arrived At: Historical: - Allergies: 11:52 No Known Allergies; hb - Home Meds: 11:52 carvedilol 3.125 mg Oral tab 1 tab 2 times per day [Active]; furosemide 40 mg Oral tab hb 1 tab once daily [Active]; lisinopril 2.5 mg Oral tab 1 tab once daily [Active]; pantoprazole 40 mg Oral TbEC 1 tab 2 times per day [Active]; spironolactone 25 mg Oral tab 1 tab once daily [Active]; tamsulosin 0.4 mg Oral cp24 1 cap once daily [Active]; - PMHx: 11:52 Anemia; Angiodysplasia of duodenum; CAD s/p [place]; Cholithiasis; COPD; Diabetes - NIDDM; hb diagnosed with cancer at [place], did not seek treatment; etoh abuse; Gastric varices; GERD; Hyperlipidemia; Hypertension; liver cancer; metabolic encephalopathy; Myocardial infarction; Pneumonia; rhabdomyolysis; UTI; - PSHx: 11:52 None; hb - Immunization history: Last tetanus immunization: unknown. Primary Survey: 09:12 NO uncontrolled hemorrhage observed. A: The patient only responds to painful stimuli. hb Airway: patent, Oral cavity: clear, gag reflex present, Trachea midline. Breathing/Chest: Respiratory pattern: regular, Respiratory effort: labored, Breath sounds: crackles, bilaterally. Chest inspection: symmetrical rise and fall of the chest. Circulation: Pulses: palpable . Skin color: pink, Skin temperature: warm, dry. Disability Painful Stimuli. Exposure/Environment: All clothing and personal items were removed. A warming method has been applied:. 10:00 Reassessment Airway Airway Patent Breathing/Chest Respiratory pattern Regular hb Respiratory effort Labored Circulation Color [place] Temperature Warm Dry Disability Painful stimuli. 11:00 Reassessment Airway Airway Patent Breathing/Chest Respiratory pattern Regular hb Respiratory effort Labored Breath sounds Crackles Rales Circulation Color [place] Temperature Warm Dry Disability Painful stimuli. Secondary Survey: 09:15 HEENT: No deficits noted. Gastrointestinal: No deficits noted. : No deficits noted. hb Musculoskeletal: No deficits noted. Assessment: 09:11 Reassessment: TRAUMA ALERT CALLED. hb 09:16 Reassessment: CODE SEPSIS CALLED. hb 09:18 Reassessment: INSIDE LAB AT BEDSIDE FOR BLOOD DRAW. hb 11:51 Reassessment: Attempted to call report to floor, receiving nurse unavailable per unit hb sec Cornelia. Vital Signs: 09:10 BP 151 / 74; Pulse 94; Resp 23; Temp 96.7(TE); Pulse Ox 99% on R/A; Weight 83.91 kg; hb Height 5 ft. 10 in. (177.80 cm); Pain 5/10; 09:38 BP 162 / 63; Pulse 93; Resp 19; Pulse Ox 100% ; sv 10:00 BP 147 / 63; Pulse 90; Resp 16; Pulse Ox 98% ; sv 10:30 BP 154 / 65; Pulse 105; Resp 20; Pulse Ox 100% ; sv 11:00 BP 162 / 62; Pulse 92; Resp 15; Pulse Ox 100% ; sv 11:40 BP 171 / 83; Pulse 98; Resp 15; Pulse Ox 100% on R/A; hb 12:30 BP 164 / 92; Pulse 102; Resp 19; Pulse Ox 100% ; sv 09:10 Body Mass Index 26.54 (83.91 kg, 177.80 cm) hb 09:10 Oconnor-[place] (FACES) hb [place] Coma Score: 12:30 Eye Response: to voice(3). Verbal Response: confused(4). Motor Response: withdraws from sv pain(4). Total: 11. ED Course: 09:20 Patient arrived in ED. hb 09:23 Triage completed. hb 09:25 Arm band placed on. hb 09:30 Maintain EMS IV. Dressing intact. Good blood return noted. Site clean \T\ dry. Gauge \T\ hb site: 20g LAC. 09:31 June Florence, JENIFER is Primary Nurse. sv 09:34 Inserted saline lock: 20 gauge in left wrist, using aseptic technique. Blood collected. hb 09:48 Len Lei MD is Attending Physician. kdr 09:49 Chest Single View XRAY In Process Unspecified. EDMS 10:29 [place] cath inserted, using sterile technique, 16 Fr., by de, balloon inflated, to hb gravity drainage, urine specimen collected. returned clear yellow urine. Patient tolerated well. 10:59 Mamadou Grove MD is Hospitalizing Provider. kdr 11:37 EKG done, by ED staff, reviewed by Len Lei MD. dh3 12:45 CT Head C Spine Sent. sv 12:46 Urine Dipstick--Ancillary (enter results) Sent. sv Administered Medications: 09:44 Drug: NS 0.9% (30 ml/kg) 30 ml/kg Route: IV; Rate: bolus; Site: right wrist; dm5 11:00 Follow up: Response: No adverse reaction; IV Status: Completed infusion; IV Intake: sv 2490ml Intake: 11:00 IV: 2490ml; Total: 2490ml. sv Outcome: 11:00 Decision to Hospitalize by Provider. kdr 13:02 Patient left the ED. em Signatures: Dispatcher [employer] Kandice Gamign RN JENIFER [facility] June Florence RN RN sv Rittger, Kevin, MD MD kdr Munoz, Edgar, RN RN em Baxter, Heather, RN RN Candy Wyman [facility]
--- NOTE | 2019-09-16 12:14 | RAD REPORT ---
EXAM DESCRIPTION: CT - Head C Spine Mpr Wo Con - 09/16/2019 11:57 am CLINICAL HISTORY: Head and neck injury status post fall. Head and neck pain COMPARISON: 2017 TECHNIQUE: Computed axial tomography of the head and cervical spine was obtained. Sagittal and coronal reconstruction was performed. All CT scans are performed using dose optimization technique as appropriate and may include automated exposure control or mA/KV adjustment according to patient size. FINDINGS: Right scalp swelling. . Old lacunar infarct left basal ganglia. An intracranial bleed is not seen. The ventricles are normal in caliber. An extra-axial fluid collect ion is not noted. Chronic right maxillary sinusitis A cervical fracture is not visualized. No dislocation is noted. Spondylosis involves the cervical spi ne IMPRESSION: No acute intracranial abnormality is seen. A cervical fracture is not visualized. If the patient continues to have symptoms to suggest intracra nial /spinal cord pathology then MRI would be recommended
[2019-09-16 12:41] LABS: Urine Bacteria <20 /HPF (NONE SEEN); Urine Culture Reflex Order NOT NEEDED; Urine RBC <5 /HPF (NONE SEEN)
[2019-09-16 13:46] VITALS: BMI 12.0
[2019-09-16] MEDS ORDERED: ALBUTEROL 2.5 MG/3 ML NEB SOL NEB PRN (14:04)
[2019-09-16] MEDS ORDERED: GLUCAGON 1 MG/VIAL IM PRN (14:04)
[2019-09-16] MEDS ORDERED: ONDANSETRON 4 MG/2 ML VIAL IV PRN (14:04)
[2019-09-16] MEDS ORDERED: ACETAMINOPHEN 500 MG TAB PO PRN (14:04)
[2019-09-16] MEDS ORDERED: D50W 25 GM/50 ML SYRINGE/VIAL IV PRN (14:04)
[2019-09-16] MEDS ORDERED: IPRATROPIUM BROM 0.5MG/2.5ML NEB PRN (14:04)
[2019-09-16] MEDS: NA CHLORIDE 0.9% 1,000 ML IV SCH (14:42)
[2019-09-16] MEDS ORDERED: INSULIN -REGULAR HUMAN 50 UNIT/0.5 ML ML SQ SCH (16:30)
[2019-09-16] MEDS ORDERED: KCL 20 MEQ/100 mL IVPB 20 MEQ/100 ML BAG IV SCH (18:00)
--- NOTE | 2019-09-16 22:49 | HP ---
Date of Admission: 09/16/2019 Consultants: Dr. Grijalva. Primary Care Physician: Dr. De La Paz. Code Status: Full code. Chief Complaint: Patient found down incontinent. History Of Present Illness: Patient is a 79-year-old male, resident of [facility], comes in due to being found down and covered with incontinence. Patient was last known well at 10:3 0 p.m. last night. Patient has multiple comorbid conditions including hepatic failure, generalized w eakness, cognitive communication deficit, diabetes, hyperlipidemia, hypertension, liver cirrhosis. P atient's symptoms are constant, moderate, progressively worsening. It should be noted that the patie nt is unable to provide history due to his medical condition. History is largely obtained from previ ous records, assisted records, ER staff. No family present at the bedside. We will attempt to c ontact the daughter and the nursing facility. Patient's blood pressure was stable when he came in. He was afebrile, saturating 99% on room air. Patient's workup found lactate of 6. Procalcitonin was negative. His CK level was 214. White blood cell count was normal. INR was 1.42. His chest x-ray showed possible left base pneumonia. Patient was then referred for admission. When seen in the ER, he was awake, alert, only speaking a few words. Not cooperative with exam or history taking. Past Medical History: COPD, history of myocardial infarction, apparent diagnosis of cancer at the AL , liver cirrhosis, cognitive communication deficit, generalized weakness, anemia, hypertension, hyper lipidemia, dysphagia. Past Surgical History: None. Allergies: NO KNOWN DRUG ALLERGIES. Medications: List reviewed. Social History: Patient is a resident of [facility]. No smoking, has a strong histo ry of drinking. Family History: None. Patient from previous records had denied any significant family history. Review of Systems: Unable to be obtained due to patient's condition. Physical Examination: Vital Signs: Blood pressure 151/74, pulse 94, respirations 23, temperature 96.7, O2 99%. General: Awake, alert, oriented to self only, largely nonverbal, elderly male, ill-appearing. HEENT: Normocephalic, atraumatic. PERRLA. EOMI. Moist mucous membranes. Oropharynx is clear. Pa tient has poor dentition. Conjunctivae anicteric. Neck: Supple. No JVD. Trachea midline. CV: S1, S2. Irregularly irregular. Peripheral pulses weak. Respiratory: Diminished breath sounds. Rhonchi heard. Dullness on the left base. Gastrointestinal: Abdomen is soft, nontender, nondistended. Positive bowel sounds. No guarding or rigidity. Extremities: No clubbing, cyanosis, or edema. No calf tenderness, NEUROLOGIC: Patient moves all 4 extremities. Patient will say a few words here and there. Does not follow commands. Opens eyes spontaneously. Skin: No rashes. Normal skin turgor. Laboratory Data: Sodium 145, potassium 3.9, chloride 114, CO2 of 19, BUN 13, creatinine 0.87, glucos e 186, lactate 6, calcium 8.9, AST 64, ALT 36, alkaline phosphatase 145, total bilirubin 2.9, direct bilirubin 1. CK level is 214. Troponin 0.02. Albumin 2.6. Amylase 53, lipase 139. Procalcitonin 0.05. INR 1.42. WBC 5.5, H and H 10.9 and 34, platelets 79, neutrophils 64%. UA is negative. Imaging Studies: Chest x-ray personally reviewed shows smaller early left base pneumonia is not excl uded. Chest not substantially different from comparison. Low lung volumes on the left, accentuates left base. No suspicion for significant failure or volume overload. CT head and cervical spine show ed no acute intracranial abnormality. Right scalp swelling, old lacunar infarct, left basal ganglia. No cervical fracture. Assessment: 79-year-old male with: 1.Acute metabolic encephalopathy, likely related to his worsening cognitive deficit as well as possi ble infection with pneumonia, unclear if patient is at his baseline. Head CT scan did not show any a cute cerebrovascular accident or bleed. There was no acute cervical spinal fracture. Head CT scan d id show old basal ganglia infarct. 2.Left base pneumonia. We will start on IV antibiotics. Continue with IV fluids. Blood cultures h ave been obtained. Consult Pulmonology. Patient does have some dysphagia, possible aspiration. We will keep n.p.o. and have Speech Therapy evaluate. 3.Thrombocytopenia, likely related to his chronic liver disease. 4.Metabolic acidosis, lactate of 6, likely due to being down for significant amount of time. We [place] l repeat lactate. 5.Hyperbilirubinemia, likely due to liver cirrhosis. 6.Elevated liver enzymes, likely due to liver cirrhosis. 7.Alcoholic liver cirrhosis. 8.Cerebrovascular accident, history of lacunar infarct. 9.Status post fall. Patient has right scalp swelling, likely hematoma from the fall. We will place on fall precautions and bed alarm. 10.History of anemia. We will continue to monitor H and H, transfuse as needed. 11.Degenerative disk disease of the spine. 12.Mixed hyperlipidemia. 13.Essential hypertension, stable. 14.Chronic obstructive pulmonary disease, chronic bronchitis. 15.Early rhabdomyolysis. 16.History of myocardial infarction. Plan: Admit patient to Med-Surg, place as inpatient. Length of stay greater than 2 midnights. /ELISE Voice ID: [id number]
[2019-09-17] MEDS: NA CHLORIDE 0.9% 1,000 ML IV SCH (03:20)
[2019-09-17 05:40] LABS: Basophils % 0.6 % (0-1.3); Hematocrit 27.8 % (39.6-49.0); Lymphocytes % 26.1 % (15.3-44.8); MPV 8.4 fL (7.6-11.3); RBC Red Blood Cell Count 2.84 M/uL (4.33-5.43)
[2019-09-17 05:53] LABS: ALT/SGPT 31 U/L (12-78); AST/SGOT 64 U/L (15-37); Albumin 2.2 g/dL (3.4-5.0); Alkaline Phosphatase 110 U/L (45-117); BUN Blood Urea Nitrogen 11 mg/dL (7-18); Bicarbonate 21 mmol/L (21-32); Bilirubin Total 2.1 mg/dL (0.2-1.0); Creatine Phosphokinase 566 U/L (39-308); Glucose Level 116 mg/dL (74-106); Magnesium 1.7 mg/dL (1.8-2.4); Phosphorus 3.1 mg/dL (2.5-4.9); Potassium 3.6 mmol/L (3.5-5.1); Protein, Total 5.6 g/dL (6.4-8.2); Sodium Level 147 mmol/L (136-145)
[2019-09-17] MEDS: INSULIN -REGULAR HUMAN 50 UNIT/0.5 ML ML SQ SCH ×5 (06:00→20:24)
[2019-09-17] MEDS ORDERED: MAGNESIUM SULFATE 1 gm IVPB 1 GM/100 ML BAG IV ONE (06:13)
[2019-09-17] MEDS ORDERED: VANCOMYCIN 500 MG in NA CHLORIDE 0.9% 250 ML IV SCH (09:00)
[2019-09-17] MEDS: THIAMINE 200 MG/2 ML INJ IVP SCH (09:00)
[2019-09-17] MEDS: PANTOPRAZOLE 40MG TABLET PO SCH ×2 (09:00→20:23)
[2019-09-17] MEDS: Rifaximin 550 MG Tab PO SCH ×2 (09:00→20:24)
[2019-09-17] MEDS ORDERED: KCL 20 MEQ/100 mL IVPB 20 MEQ/100 ML BAG IV SCH (09:00)
[2019-09-17] MEDS ORDERED: HOME MED 1 EA UNK (Lactulose [Lactulose] 10 GM) PO SCH (09:00)
--- NOTE | 2019-09-17 10:18 | P.CNS ---
Date of Consult: 09/17/19 Reason for Consult: Altered mental status Chief Complaint: Altered mental status History of Present Illness: Patient is 79 years of age a [facility] resident admitted with altered mental status was found incontinent multiple comorbid problems poor baseline functioning he still altered although alert not cooperative Allergies No Known Allergies Allergy (Verified 02/23/18 00:49) Home Medications: Pantoprazole Sodium 40 mg PO BID 04/03/18 Tamsulosin HCl 0.4 mg PO BEDTIME 04/03/18 Atorvastatin Calcium [Lipitor] 80 mg PO BEDTIME 09/16/19 Folic Acid 1 mg PO DAILY 09/16/19 Lactulose 10 gm PO TID 09/16/19 Metformin HCl 500 mg PO DAILY 09/16/19 Rifaximin [Xifaxan] 550 mg PO BID 09/16/19 - Past Medical/Surgical History Diabetic: Yes -: Diabetes mellitus type 2 -: CAD -: Liver cirrhosis -: COPD -: Former tobacco use -: Alcohol use -: HTN -: GERD -: History of angiodysplasia requiring ablation -: Anemia -: cataracat sx rob eye. Psychosocial/ Personal History: The patient lives with a friend. He is . He has several children that he is not in contact with. - Family History Father Medical History: Stroke, Cancer Brother Medical History: Stroke, Cancer Mother Medical History: Diabetes - Social History Smoking Status: Current every day smoker Alcohol use: Yes CD- Drugs: No Caffeine use: No Review of Systems is unable to be obtained Physical Examination Temp Pulse Resp BP Pulse Ox 98.9 F 81 18 181/76 H 97 09/17/19 08:00 09/17/19 08:00 09/17/19 08:00 09/17/19 08:00 09/17/19 08:00 General: Alert, In no apparent distress, Confused Neck: Supple Respiratory: Clear to auscultation bilaterally Cardiovascular: No edema, Normal S1 S2 Gastrointestinal: Normal bowel sounds, Soft and benign Laboratory Data (last 24 hrs) 09/16/19 09:39: WBC 5.5, Hgb 10.9 L, Hct 34.0 L, Plt Count 79 L - Problems (1) Acute metabolic encephalopathy Onset Date: 06/28/18 Current Visit: No Status: Acute Plan: Patient is 79 years of age the triple medical problems admitted with altered mental status encephalopathy doubt sepsis urinalysis is negative cultures negative white count normal pro calcitonin level negative ammonia level is mildly elevated he is also hypernatremic blood pressure elevated Dc antibiotics for now at thymine change to D5 water currently patient has cirrhosis COPD continue to monitor arterial blood gases
--- NOTE | 2019-09-17 10:22 | RAD REPORT ---
EXAM DESCRIPTION: Shoulder Right 2 View - 09/17/2019 10:12 am CLINICAL HISTORY: fall, pain COMPARISON: Chest Single View dated 08/05/2019; Chest Single View dated 03/26/2019 TECHNIQUE: Right shoulder two view examination performed. Positioning is not optimal. Patient was no t able to fully cooperate with the examination. FINDINGS: No fracture or dislocation of the right humeral head. No AC joint separation. Degenerativ e changes are seen along the undersurface of the acromion and along the superolateral margin of the h umeral head. No scapula abnormality seen. Ribs and parenchyma of the upper chest unremarkable. No desi picious soft tissue finding. IMPRESSION: Degenerative change present as detailed. No fracture or dislocation identifiable.
[2019-09-17] MEDS: D5W 1,000 ML IV SCH ×2 (10:53→23:44)
[2019-09-17] MEDS ORDERED: CEFEPIME/SWI 2gm 2 GM/20 ML SYR IV SCH (11:00)
[2019-09-17 11:21] LABS: Arterial Blood Carboxyhemoglob 2.5 % (0-1.5); Blood Gas Oxyhemoglobin 94.6 % (94-97); Blood O2 Saturation 97.9 % (92-98.5)
--- NOTE | 2019-09-17 11:26 | PN ---
Date of Progress Note: 09/17/2019 Subjective: Patient is seen and examined. Chart reviewed and case discussed with RN and Dr. Grijalva. Patient is more alert today, however, still not cooperative. Medications: List reviewed. code satus; Full Physical Examination: Vital Signs: Temperature 98.9, heart rate 81, blood pressure 181/76, respirations 18, O2 saturations 97% on room air. General: Awake, alert, oriented to self only, elderly male, ill-appearing, frail, not cachectic. CV: S1, S2. Peripheral pulses are present. Respiratory: Diminished breath sounds at the bases. No wheezing or stridor. Gastrointestinal: Abdomen is soft, nontender, nondistended. Positive bowel sounds. Extremities: No clubbing, cyanosis. Patient has pedal edema. Neurologic: Nonfocal. Moves all 4 extremities. Laboratory Data: Sodium 147, potassium 3.6, chloride 117, CO2 of 21, BUN 11, creatinine 0.65, glucose 116, repeat lactate was 2.1, calcium 7.8, phosphorus 3.1, magnesium 1.7, total bilirubin 2.1, AST 64, ALT 31, alkaline phosphatase 110, ammonia 76, albumin 2.2. WBC 4, H and H are 9.1 and 27.8, platelets 55. Blood cultures, aerobic bottle 1/2 growing out gram-positive cocci. This may be a skin contaminant. We will follow up on ID and sensitivity. Shoulder x-ray shows degenerative change present as detailed. No fracture or dislocation identifiable, personally reviewed. Assessment: 79-year-old male with: 1. Acute metabolic encephalopathy, likely related to his baseline cognitive impairment worsening versus secondary to pneumonia and bacteremia, improving, unknown baseline. We will need to follow up with family. 2. Left base pneumonia. Dr. Grijalva did not feel that this was pneumonia. Antibiotic has been discontinued at this time. Patient was seen by Speech, has dysphagia; however, unable to cooperate with complete examination. 3. Metabolic acidosis, improving. Lactate now down to 2.1. We will continue with IV fluids. 4. Hypernatremia. IV fluids have been adjusted. We will continue to monitor sodium level. 5. Acute rhabdomyolysis, likely secondary to being found down. CK levels over 500. Continue with IV fluids. Monitor kidney function. 6. Severe thrombocytopenia, likely due to his chronic liver disease. No acute bleeding at this time. We will continue to monitor. Avoid any blood thinners. 7. Severe protein-calorie malnutrition. Albumin is 2.2. 8. Hyperbilirubinemia, likely due to liver disease. 9. Alcoholic liver cirrhosis. Patient has high ammonia level 76. We will continue with lactulose. 10. History of cerebrovascular accident with lacunar infarct. 11. Status post fall. Patient has right scalp swelling and ecchymosis on the right shoulder. X-ray did not show any acute fracture. Continue with PT, fall precautions. 12. Normocytic, normochromic anemia. Continue to monitor H and H, transfuse for hemoglobin less than 7. 13. Degenerative disk disease of spine, stable. 14. Hyperlipidemia, stable. 15. Essential hypertension. We will continue with home medications. 16. Chronic obstructive pulmonary disease, chronic bronchitis. Albuterol p.r.n. 17. History of myocardial infarction. Plan: Disposition: Apparently, patient was at home as was recently discharged from [facility] and according to the daughter, patient will likely need long-term facility placement versus long-term placement in [facility]. We will discuss further with family. LEANDER Voice ID: [id number] Report ID: [id number] TARAN
[2019-09-17] MEDS ORDERED: HYDRALAZINE HCL 20 MG/ML VIAL IV ONE (15:18)
--- NOTE | 2019-09-17 16:30 | EKG ---
Test Date: 2019-09-16 Test Time: 11:36:45 Tobacco Drummer: WU MEASUREMENT RESULTS: Intervals: Rate: 98 AL: 184 QRSD: 84 QT: 386 QTc: 492 Nicholson: P: 64 AL: 184 QRS: 48 T: 61 INTERPRETIVE STATEMENTS: Sinus rhythm with premature supraventricular complexes Prolonged QT Abnormal ECG Compared to ECG 08/05/2019 14:25:03 Atrial premature complex(es) now present Prolonged QT interval now present Sinus tachycardia no longer present First degree AV block no longer present ST (T wave) deviation no longer present Electronically Signed On 09-17-19 16:27:51 MACHINE SETTER SUPERVISOR by Manny Diaz
[2019-09-17] MEDS: LACTULOSE 20 GM/30 ML UCUP PO SCH ×2 (16:54→20:23)
[2019-09-17] MEDS: FOLIC ACID 1 MG TABLET PO SCH (16:54)
[2019-09-17] MEDS: METOPROLOL TAR 25 MG TAB PO SCH (18:06)
[2019-09-17] MEDS: TAMSULOSIN 0.4 MG SR CAP PO SCH (20:23)
[2019-09-17] MEDS: ATORVASTATIN 80 MG TAB PO SCH (20:23)
[2019-09-18] MEDS: METOPROLOL TAR 25 MG TAB PO SCH ×2 (05:26→17:22)
[2019-09-18 06:37] LABS: Absolute Lymphocytes (CBC) 1.2 K/uL (0.7-4.9); Basophils % 0.6 % (0-1.3); Lymphocytes % 30.4 % (15.3-44.8); RBC Red Blood Cell Count 2.78 M/uL (4.33-5.43)
[2019-09-18 07:06] LABS: ALT/SGPT 31 U/L (12-78); AST/SGOT 63 U/L (15-37); Albumin 2.1 g/dL (3.4-5.0); Alkaline Phosphatase 96 U/L (45-117); BUN Blood Urea Nitrogen 8 mg/dL (7-18); Bicarbonate 21 mmol/L (21-32); Bilirubin Total 2.1 mg/dL (0.2-1.0); Glucose Level 142 mg/dL (74-106); Magnesium 1.8 mg/dL (1.8-2.4); Potassium 3.3 mmol/L (3.5-5.1); Protein, Total 5.4 g/dL (6.4-8.2); Sodium Level 142 mmol/L (136-145)
[2019-09-18] MEDS: INSULIN -REGULAR HUMAN 50 UNIT/0.5 ML ML SQ SCH ×4 (07:30→21:00)
[2019-09-18 07:33] LABS: Anisocytosis 2+; Blood Morphology Comment NOTED (NOT SEEN); Platelet Estimate DECR; Urine White Blood Cell Casts OK
[2019-09-18] MEDS ORDERED: POTASSIUM 25 MEQ EFFERV TAB PO ONE (08:00)
[2019-09-18] MEDS ORDERED: MAGNESIUM SULFATE 1 gm IVPB 1 GM/100 ML BAG IV ONE (08:00)
[2019-09-18] MEDS: LACTULOSE 20 GM/30 ML UCUP PO SCH ×3 (09:27→21:31)
[2019-09-18] MEDS: Rifaximin 550 MG Tab PO SCH ×2 (09:28→21:30)
[2019-09-18] MEDS: PANTOPRAZOLE 40MG TABLET PO SCH ×2 (09:28→21:30)
[2019-09-18] MEDS: FOLIC ACID 1 MG TABLET PO SCH (09:28)
[2019-09-18] MEDS: THIAMINE 200 MG/2 ML INJ IVP SCH (09:29)
--- NOTE | 2019-09-18 11:32 | PN ---
Date of Progress Note: 09/18/2019 Subjective: Patient is seen and examined. Chart reviewed and case discussed with RN. Patient is significantly improved today, talking, responding to questions appropriately, not agitated. Medications: List reviewed. Physical Examination: Vital Signs: Temperature 97.7, heart rate 62, blood pressure 138/63, respirations 18, O2 of 97% on room air. General: Awake, alert, oriented to time and place. Elderly male, ill- appearing. CV: S1, S2. Regular rate and rhythm. Peripheral pulses weak. Respiratory: Diminished breath sounds at the bases, otherwise moving air well. Gastrointestinal: Abdomen is soft, nontender, nondistended. Positive bowel sounds. Extremities: No clubbing, cyanosis, or edema. Neurologic: Nonfocal. Laboratory Data: Sodium 142, potassium 3.3, chloride 112, CO2 of 21, BUN 8, creatinine 0.55, glucose 142, calcium 7.9, magnesium 1.8, total bilirubin 2.1, AST 63, ALT 31, ammonia 48, albumin 2.1. WBC 3.9, H and H are 8.8 and 27, platelets 53. Cultures 1 out of 4 bottles growing gram-positive cocci in clusters. However, Staph coagulase negative, likely skin contamination. Assessment And Plan: A 79-year-old male with: 1. Acute metabolic encephalopathy, likely due to worsening dementia, possible delirium secondary to pneumonia and bacteremia, improved significantly. Patient is now alert, oriented, talking. We will try to contact family yesterday, however, no answer. 2. Left base pneumonia, likely atelectasis. No need for antibiotics at times. 3. Metabolic acidosis, improved. Continue with IV fluids. Patient is currently on D5W. We will switch to NS, as his sodium levels improved. 4. Hypernatremia, corrected. We will switch IV fluids in half-normal saline. 5. Acute rhabdomyolysis. CK level was elevated. We will continue to monitor , continue IV fluids. 6. Severe thrombocytopenia due to chronic liver disease. No bleeding at this time. We will avoid any blood thinners. 7. Severe protein-calorie malnutrition. Albumin is 2.2. 8. Hypokalemia. We will replace and monitor. 9. Alcoholic liver cirrhosis. Patient's ammonia level now back to normal. Continue lactulose. 10. Status post fall with scalp hematoma, ecchymoses on the right shoulder. No fracture on x-ray. Continue with PT. Fall precautions. 11. Normocytic and normochromic anemia. Hemoglobin is dropped 2 g. We will check stool occult. 12. Degenerative disk disease of the spine, stable. 13. Hyperlipidemia, mixed, stable. 14. Essential hypertension, stable. Continue home medications. 15. Chronic obstructive pulmonary disease, chronic bronchitis. We will use albuterol p.r.n. 16. History of myocardial infarction. Plan, we will recommend nursing home facility placement or long-term placement in nursing facility. Patient definitely needs physical therapy. 17. Hyperbilirubinemia secondary to liver disease. Medications list reviewed. Code status full. /MODCarmen Voice ID: [id number] Report ID: [id number] MTDD
[2019-09-18] MEDS: D5.45NS W/KCL 20MEQ 20 MEQ/1,000 ML BAG IV SCH ×2 (12:24→23:20)
[2019-09-18] MEDS: TAMSULOSIN 0.4 MG SR CAP PO SCH (21:30)
[2019-09-18] MEDS: ATORVASTATIN 80 MG TAB PO SCH (21:39)
[2019-09-19] MEDS: D5.45NS W/KCL 20MEQ 20 MEQ/1,000 ML BAG IV SCH ×2 (03:32→12:40)
[2019-09-19] MEDS: METOPROLOL TAR 25 MG TAB PO SCH ×2 (05:41→17:04)
[2019-09-19 06:02] LABS: ALT/SGPT 33 U/L (12-78); AST/SGOT 64 U/L (15-37); Albumin 2.1 g/dL (3.4-5.0); Alkaline Phosphatase 105 U/L (45-117); BUN Blood Urea Nitrogen 8 mg/dL (7-18); Bicarbonate 21 mmol/L (21-32); Bilirubin Total 2.1 mg/dL (0.2-1.0); Creatine Phosphokinase 241 U/L (39-308); Glucose Level 142 mg/dL (74-106); Protein, Total 5.6 g/dL (6.4-8.2); Sodium Level 141 mmol/L (136-145)
[2019-09-19 06:10] LABS: Absolute Lymphocytes (CBC) 1.2 K/uL (0.7-4.9); Basophils % 0.4 % (0-1.3); Hematocrit 26.9 % (39.6-49.0); Lymphocytes % 34.9 % (15.3-44.8); MPV 8.7 fL (7.6-11.3); RBC Red Blood Cell Count 2.73 M/uL (4.33-5.43)
[2019-09-19 06:20] LABS: Magnesium 1.8 mg/dL (1.8-2.4)
[2019-09-19] MEDS ORDERED: MAGNESIUM OXIDE 400 MG TAB PO ONE (07:29)
[2019-09-19] MEDS: Rifaximin 550 MG Tab PO SCH ×2 (08:07→21:41)
[2019-09-19] MEDS: INSULIN -REGULAR HUMAN 50 UNIT/0.5 ML ML SQ SCH ×4 (08:07→21:00)
[2019-09-19] MEDS: FOLIC ACID 1 MG TABLET PO SCH (08:08)
[2019-09-19] MEDS: PANTOPRAZOLE 40MG TABLET PO SCH ×2 (08:08→21:46)
[2019-09-19] MEDS: LACTULOSE 20 GM/30 ML UCUP PO SCH ×3 (08:09→21:42)
[2019-09-19] MEDS: THIAMINE 200 MG/2 ML INJ IVP SCH (08:10)
[2019-09-19] MEDS ORDERED: MAGNESIUM SULFATE 1 gm IVPB 1 GM/100 ML BAG IV ONE (09:00)
--- NOTE | 2019-09-19 12:04 | P.PN ---
Subjective Date of Service: 09/19/19 Chief Complaint: Altered mental status Subjective: Improving (Patient is doing much better is more alert responsive oriented does not recall the events 1st that precipitated saturation) Review of Systems Unremarkable General: Weakness Physical Examination - Vital Signs Temperature: 97.3 F Blood Pressure: 144/54 Pulse: 62 Respirations: 15 Pulse Ox (%): 99 - Physical Exam General: Alert, Oriented x3 Respiratory: Clear to auscultation bilaterally Cardiovascular: No edema, Regular rate/rhythm Assessment & Plan - Problems (Diagnosis) (1) Acute metabolic encephalopathy Onset Date: 06/28/18 Current Visit: No Status: Acute Plan: Metabolic encephalopathy has resolved patient is mildly anemic patient can be discharged home resume all home medications in and thiamine patient has cirrhosis of the liver with chronic thrombocytopenia
--- NOTE | 2019-09-19 15:01 | PN ---
Date of Progress Note: 09/19/2019 Subjective: Patient seen and examined. Chart reviewed and case discussed with RN and Dr. Grijalva. The patient's medical power of radio station manager, Victoriano, also present at the bedside. Case was discussed wi th her at length. Explained to the patient that he is very weak, likely will benefit from going to [facility] as he has had 2 episodes of falls with being found down and is high risk to g o home. Medications: List reviewed. Physical Examination: Vital Signs: Temperature 97.3, heart rate 60, blood pressure 120/49, respirations 15, O2 98% on room air. General: Awake, alert, oriented x2. Elderly male, not in any acute distress. Appears older than st ated age. Frail, cachectic. BMI 12. CV: S1, S2. Regular rate and rhythm. Peripheral pulses weak. Respiratory: Diminished breath sounds at the bases. No wheezing or stridor. Gastrointestinal: Abdomen is soft, nontender, nondistended. Positive bowel sounds. Extremities: No clubbing, cyanosis, or edema. Neurologic: Nonfocal. Laboratory Data: Sodium 141, potassium 4, chloride 112, CO2 of 21, BUN 8, creatinine 0.6, glucose 14 2, calcium 8, magnesium 1.8, total bilirubin 2.1, AST 64, ALT 33, albumin 2.1. WBC 3.5, H and H 8.6 and 26.9, platelets 53, neutrophils 38%. Blood cultures, no growth to date. Occult blood is negativ e. Assessment: 79-year-old male with: 1.Acute metabolic encephalopathy, likely due to worsening dementia, resolved. Patient now back to [facility]. 2.Left base pneumonia, likely atelectasis. No need for antibiotics. We will repeat chest x-ray. 3.Metabolic acidosis, improved. Lactate back to normal. Continue with intravenous fluids. 4.Hypernatremia, corrected. Continue intravenous fluids. 5.Acute rhabdomyolysis. CK level back to normal. We will continue to monitor. 6.Severe thrombocytopenia due to chronic liver disease. No bleeding at this time. Avoid any sort o f chemical anticoagulation. 7.Severe protein-calorie malnutrition. Albumin is 2.1. Dietary consultations, protein supplements. 8.Hyperbilirubinemia secondary to liver disease. 9.Alcoholic liver cirrhosis. Ammonia level back to normal. Continue lactulose. 10.Status post fall with scalp hematoma, ecchymosis on the right shoulder. No fracture. Continue w ith physical therapy. Continue fall precautions. 11.Normocytic normochromic anemia. Stool occult is negative likely related to dilutional and due to his chronic diseases. We will monitor, transfuse for hemoglobin less than 7. We will check anemia panel. 12.Degenerative disk disease of the spine, stable. 13.Mixed hyperlipidemia, stable. 14.Essential hypertension, stable. Continue home medications. 15.Chronic obstructive pulmonary disease, chronic bronchitis. Continue albuterol p.r.n. 16.History of myocardial infarction. 17.Hypokalemia, replace and monitor. Plan: Patient is high risk to return home. Has had multiple admissions to the hospital after being found down incontinent. He is very weak, cachectic, needs assistance with ambulation. Patient to be referred back to [facility] as per medical power of radio station manager. community action worker is made aware. Discharg e to [facility] once accepted. /ELISE Voice ID: [id number] Report ID: [id number]
--- NOTE | 2019-09-19 15:09 | RAD REPORT ---
EXAM DESCRIPTION: RAD - Chest Pa And Lat (2 Views) - 09/19/2019 2:58 pm CLINICAL HISTORY: atelectasis, possible PNA Chest pain. COMPARISON: Chest Single View dated 09/16/2019; Chest Single View dated 08/05/2019; Chest Single View dated 03/26/2019; Chest Single View dated 07/25/2018 FINDINGS: Emphysematous changes are present throughout the lungs. No focal infiltrate detected. The heart is upper limit normal in size. No displaced fractures. IMPRESSION: COPD is present without evidence of acute infiltrates.
[2019-09-19] MEDS: TAMSULOSIN 0.4 MG SR CAP PO SCH (21:41)
[2019-09-19] MEDS: ATORVASTATIN 80 MG TAB PO SCH (21:42)
[2019-09-20] MEDS: METOPROLOL TAR 25 MG TAB PO SCH ×2 (05:46→17:51)
[2019-09-20 06:07] LABS: BUN Blood Urea Nitrogen 8 mg/dL (7-18); Bicarbonate 22 mmol/L (21-32); Ferritin 41.9 ng/mL (26-388); Glucose Level 117 mg/dL (74-106); Magnesium 1.7 mg/dL (1.8-2.4); Potassium 3.9 mmol/L (3.5-5.1); Sodium Level 143 mmol/L (136-145); Transferrin 200 mg/dL (200-360)
[2019-09-20 06:16] LABS: Basophils % 0.5 % (0-1.3); Hematocrit 25.7 % (39.6-49.0); Lymphocytes % 40.2 % (15.3-44.8); MPV 8.3 fL (7.6-11.3); RBC Red Blood Cell Count 2.64 M/uL (4.33-5.43)
[2019-09-20] MEDS ORDERED: MAGNESIUM SULFATE 1 gm IVPB 1 GM/100 ML BAG IV ONE (07:30)
[2019-09-20] MEDS: INSULIN -REGULAR HUMAN 50 UNIT/0.5 ML ML SQ SCH ×4 (07:30→21:00)
[2019-09-20 08:28] LABS: Anisocytosis 2+; Blood Morphology Comment NOTED (NOT SEEN); Platelet Estimate DECR; Urine White Blood Cell Casts OK
[2019-09-20] MEDS ORDERED: POTASSIUM CL SA 10 MEQ TAB PO ONE (09:00)
[2019-09-20] MEDS: FOLIC ACID 1 MG TABLET PO SCH (12:07)
[2019-09-20] MEDS: PANTOPRAZOLE 40MG TABLET PO SCH ×2 (12:08→21:44)
[2019-09-20] MEDS: THIAMINE 200 MG/2 ML INJ IVP SCH (12:08)
[2019-09-20] MEDS: Rifaximin 550 MG Tab PO SCH ×2 (12:08→21:44)
[2019-09-20] MEDS: LACTULOSE 20 GM/30 ML UCUP PO SCH ×3 (12:12→21:45)
--- NOTE | 2019-09-20 13:05 | P.PN ---
Subjective Date of Service: 09/20/19 Primary Care Provider: [place] Effie Chief Complaint: Altered mental status Subjective: Other (Patient stable this time. No complaints noted) Physical Examination - Vital Signs Temperature: 97.0 F Blood Pressure: 138/63 Pulse: 60 Respirations: 16 Pulse Ox (%): 99 - Physical Exam General: Alert, Cooperative HEENT: Atraumatic Neck: Supple Respiratory: Clear to auscultation bilaterally, Normal air movement Cardiovascular: Normal pulses, Regular rate/rhythm Gastrointestinal: Normal bowel sounds, Soft and benign, Non-distended - Studies Medications List Reviewed: Yes Assessment & Plan Discharge Plan: Other (half-way facility) Plan to discharge in: 24 Hours Physician Review Additional Text: Impression: Acute metabolic encephalopathy likely worsening dementia Left base infiltrate likely atelectasis Metabolic acidosis with hypernatremia Acute rhabdomyolysis Chronic thrombocytopenia likely related to chronic liver disease Severe protein calorie malnutrition Hyperbilirubinemia secondary to liver disease Alcoholic liver cirrhosis Status post fall with scalp hematoma and ecchymosis to the right shoulder Normocytic normochromic anemia related to chronic liver disease Degenerative disc and joint disease of the spine Hypertension Hyperlipidemia Plan: Acute metabolic encephalopathy likely worsening dementia: Patient stable this time. Patient desires to go home but medical power of title attorney recommend skilled placement. Will continue with physical therapy and occupational therapy. Will discuss with perinatal social worker to help with arrangements for skilled placement. Patient may likely require long-term care. Will discuss with medical power of title attorney. Left base infiltrate likely atelectasis: No need for antibiotic therapy at this time. Metabolic acidosis with hypernatremia: Resolved Acute rhabdomyolysis: Resolved Chronic thrombocytopenia likely related to chronic liver disease: Overall stable. Will monitor closely. Severe protein calorie malnutrition: Encourage oral intake. Will monitor closely. Hyperbilirubinemia secondary to liver disease: Overall stable. Will monitor closely. Alcoholic liver cirrhosis: Stable. Will monitor closely. Continue lactulose Status post fall with scalp hematoma and ecchymosis to the right shoulder: Continue physical therapy Normocytic normochromic anemia related to chronic liver disease: Overall stable. Degenerative disc and joint disease of the spine: Continue physical therapy Hypertension: Continue medication. Will monitor and adjust appropriately. COPD: Continue medication. room-air saturations within normal range. Time Spent Managing Pts Care (In Minutes): 55
[2019-09-20] MEDS ORDERED: LORazepam 2 MG/ML VIAL IV PRN (17:58)
[2019-09-20] MEDS: TAMSULOSIN 0.4 MG SR CAP PO SCH (21:44)
[2019-09-20] MEDS: ATORVASTATIN 80 MG TAB PO SCH (21:44)
[2019-09-20 22:45] VITALS: O2SAT 95
[2019-09-21] MEDS: METOPROLOL TAR 25 MG TAB PO SCH (05:09)
[2019-09-21 06:47] LABS: BUN Blood Urea Nitrogen 9 mg/dL (7-18); Bicarbonate 22 mmol/L (21-32); Glucose Level 108 mg/dL (74-106); Magnesium 1.7 mg/dL (1.8-2.4); Sodium Level 143 mmol/L (136-145)
[2019-09-21] MEDS ORDERED: MAGNESIUM SULFATE 1 gm IVPB 1 GM/100 ML BAG IV ONE (06:48)
[2019-09-21] MEDS: INSULIN -REGULAR HUMAN 50 UNIT/0.5 ML ML SQ SCH ×2 (07:30→11:30)
[2019-09-21] MEDS: PANTOPRAZOLE 40MG TABLET PO SCH (07:31)
[2019-09-21] MEDS: FOLIC ACID 1 MG TABLET PO SCH (07:31)
[2019-09-21] MEDS: LACTULOSE 20 GM/30 ML UCUP PO SCH ×2 (07:31→13:10)
[2019-09-21] MEDS: Rifaximin 550 MG Tab PO SCH (07:32)
[2019-09-21] MEDS ORDERED: THIAMINE HCL 100 MG TABLET PO SCH (09:00)
--- NOTE | 2019-09-21 10:39 | P.DS ---
Admission Date: 09/16/19 Discharge Date: 09/21/19 Primary Care Provider: [facility] Disposition: TRANSFER TO RESIDENTIAL Discharge Condition: GOOD Reason for Admission: Altered mental status Consultations: Pulmonary-Dr. Grijalva Procedures: Follow up CXR: COMPARISON: Chest Single View dated 09/16/2019; Chest Single View dated 2019; Chest Single View dated 03/26/2019; Chest Single View dated 07/25/2018 FINDINGS: Emphysematous changes are present throughout the lungs. No focal infiltrate detected. The heart is upper limit normal in size. No displaced fractures. IMPRESSION: COPD is present without evidence of acute infiltrates. CT Head: COMPARISON: 2018 TECHNIQUE: Computed axial tomography of the head and cervical spine was obtained. Sagittal and coronal reconstruction was performed. All CT scans are performed using dose optimization technique as appropriate and may include automated exposure control or mA/KV adjustment according to patient size. FINDINGS: Right scalp swelling. . Old lacunar infarct left basal ganglia. An intracranial bleed is not seen. The ventricles are normal in caliber. An extra-axial fluid collection is not noted. Chronic right maxillary sinusitis A cervical fracture is not visualized. No dislocation is noted. Spondylosis involves the cervical spine IMPRESSION: No acute intracranial abnormality is seen. A cervical fracture is not visualized. 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 Patient with multiple medical problems including dementia. Patient was admitted for further evaluation. Hospital Course: Patient presented with altered mental status likely related to acute metabolic encephalopathy related to worsening dementia. Patient was also seen by pulmonology for evaluation for his COPD. This has remained stable. No evidence of pneumonia at this time. Antibiotics have been discontinued. Patient also had hypernatremia and acute rhabdomyolysis. This improved with IV fluids. At discharge patient is back to his normal mentation. Patient has done well with physical therapy and occupational therapy. At discharge [facility]. Patient will continue with his current medications folic acid 1 mg daily and thiamine 100 mg daily. Patient may benefit with neurology evaluation as an outpatient to further evaluate his dementia. No need for further medication at this time. Patient with chronic thrombocytopenia likely related to chronic liver disease. Patient also with anemia chronic disease. This has remained stable. Patient also with underlying alcoholic liver cirrhosis. At discharge patient will continue with lactulose 10 g 3 times a day to maintain 2-3 bowel movements per day and Rifaxmin 550 mg twice daily. Patient may follow up with GI as directed. no need for further intervention. Recommend to recheck lab-CBC in 2- 4 weeks to monitors progress. Patient status post fall with scalp hematoma and ecchymosis to the right shoulder. Patient has done well with physical therapy. Fall precautions in place. Patient will [facility] the jail with physical therapy. Patient with hypertension. Medication was started to get better blood pressure control. This included metoprolol. Blood pressure now stable. At discharge she will continue with metoprolol 12.5 mg 1 pill twice daily. May need to hold blood pressure medication if systolic less than 110. Maintain blood pressures less 150/80. Further adjustment can be done at the jail. Patient with COPD. This has remained stable. No evidence of pneumonia identified. Patient seen by pulmonology. At discharge he will continue with Pro air 2 puffs 3 times a day as needed for shortness of breath. Patient may follow up with pulmonology to further monitor and address. Patient with hyperlipidemia. At discharge he will continue with Lipitor 80 mg daily. Patient with history of GERD. At discharge she will continue with Protonix 40 mg 1 pill twice daily. Patient with BPH. At discharge she will continue with Flomax 0.4 mg daily. Patient with diabetes mellitus type 2 non-insulin dependent. This has remained stable. At discharge he will continue with metformin 500 mg daily. Recommend to maintain blood sugars less 140 fasting and less than 200 after meals. Further adjustment can be done at the jail. Vital Signs/Physical Exam: Temp Pulse Resp BP Pulse Ox 97.6 F 62 16 137/62 96 09/21/19 08:00 09/21/19 08:00 09/21/19 08:00 09/21/19 08:00 09/21/19 08:00 General: Alert, Cooperative, Demented HEENT: Atraumatic Neck: Supple Respiratory: Clear to auscultation bilaterally, Normal air movement Cardiovascular: Normal pulses, Regular rate/rhythm Gastrointestinal: Normal bowel sounds, Soft and benign, Non-distended Neurological: Normal speech, Normal strength at 5/5 x4 extr, Normal tone, Dementia Laboratory Data at Discharge: WBC 2.6 K/uL (4.3-10.9) L D 09/20/19 05:23 Hgb 8.4 g/dL (13.6-17.9) L 09/20/19 05:23 Hct 25.7 % (39.6-49.0) L 09/20/19 05:23 Plt Count 49 K/uL (152-406) L* 09/20/19 05:23 PT 16.5 SECONDS (9.5-12.5) H 09/16/19 09:39 INR 1.42 09/16/19 09:39 APTT 37.6 SECONDS (24.3-36.9) H 09/16/19 09:39 Sodium 143 mmol/L (136-145) 09/21/19 05:37 Potassium 4.0 mmol/L (3.5-5.1) 09/21/19 05:37 BUN 9 mg/dL (7-18) 09/21/19 05:37 Creatinine 0.65 mg/dL (0.55-1.3) 09/21/19 05:37 Glucose 108 mg/dL (74-106) H 09/21/19 05:37 Phosphorus 3.1 mg/dL (2.5-4.9) 09/17/19 05:10 Magnesium 1.7 mg/dL (1.8-2.4) L 09/21/19 05:37 Total Bilirubin 2.1 mg/dL (0.2-1.0) H 09/19/19 05:19 AST 64 U/L (15-37) H 09/19/19 05:19 ALT 33 U/L (12-78) 09/19/19 05:19 Alkaline Phosphatase 105 U/L (45-117) 09/19/19 05:19 Amylase 53 U/L (25-115) 09/16/19 09:39 Lipase 139 U/L (73-393) 09/16/19 09:39 Home Medications: Pantoprazole Sodium 40 mg PO BID 04/03/18 Tamsulosin HCl 0.4 mg PO BEDTIME 04/03/18 Atorvastatin Calcium [Lipitor] 80 mg PO BEDTIME 09/16/19 Folic Acid 1 mg PO DAILY 09/16/19 Lactulose 10 gm PO TID 09/16/19 Metformin HCl 500 mg PO DAILY 09/16/19 Rifaximin [Xifaxan] 550 mg PO BID 09/16/19 Albuterol Sulfate [Proair Hfa] 2 puff IH TID PRN #1 [id number].[email or web address] 09/21/19 Metoprolol Tartrate [Lopressor*] 12.5 mg PO BID 6AM 6PM #60 tab 09/21/19 Thiamine HCl [Vitamin B-1*] 100 mg PO DAILY #30 tablet 09/21/19 New Medications: Albuterol Sulfate [Proair Hfa] 2 puff IH TID PRN #1 [id number].[email or web address] PRN Reason: Shortness Of Breath Metoprolol Tartrate [Lopressor*] 12.5 mg PO BID 6AM 6PM #60 tab Thiamine HCl [Vitamin B-1*] 100 mg PO DAILY #30 tablet Patient Discharge Instructions: 1. [facility] jail. 2. Patient presented with altered mental status likely related to acute metabolic encephalopathy related to worsening dementia. Patient was also seen by pulmonology for evaluation for his COPD. This has remained stable. No evidence of pneumonia at this time. Antibiotics have been discontinued. Patient also had hypernatremia and acute rhabdomyolysis. This improved with IV fluids. At discharge patient is back to his normal mentation. Patient has done well with physical therapy and occupational therapy. At discharge he will return back to the jail. Patient will continue with his current medications folic acid 1 mg daily and thiamine 100 mg daily. Patient may benefit with neurology evaluation as an outpatient to further evaluate his dementia. No need for further medication at this time. 3. Patient with chronic thrombocytopenia likely related to chronic liver disease. Patient with anemia of chronic disease and underlying alcoholic liver cirrhosis. Lab stable at this time. No need for further intervention. At discharge patient will continue with lactulose 10 g 3 times a day to maintain 2-3 bowel movements per day and Rifaxmin 550 mg twice daily. Patient may follow up with GI as directed. Recommend to recheck lab-CBC in 2-4 weeks to monitor progress. 4. Patient status post fall with scalp hematoma and ecchymosis to the right shoulder. Patient has done well with physical therapy. Fall precautions in place. Patient will return to the jail with physical therapy. 5. Patient with hypertension. Medication was started to get better blood pressure control. This included metoprolol. Blood pressure now stable. At discharge she will continue with metoprolol 12.5 mg 1 pill twice daily. May need to hold blood pressure medication if systolic less than 110. Maintain blood pressures less 150/80. Further adjustment can be done at the jail. 6. Patient with COPD. This has remained stable. No evidence of pneumonia identified. Patient seen by pulmonology. At discharge he will continue with Pro air 2 puffs 3 times a day as needed for shortness of breath. Patient may follow up with pulmonology to further monitor and address. 7. Patient with hyperlipidemia. At discharge he will continue with Lipitor 80 mg daily. 8. Patient with history of GERD. At discharge she will continue with Protonix 40 mg 1 pill twice daily. 9. Patient with BPH. At discharge she will continue with Flomax 0.4 mg daily. 10. Patient with diabetes mellitus type 2 non- insulin dependent. This has remained stable. At discharge he will continue with metformin 500 mg daily. Recommend to maintain blood sugars less 140 fasting and less than 200 after meals. Further adjustment can be done at the jail. Diet: ADA Activity: Fall precautions Time spent managing pt's care (in minutes): 55
[2019-09-21 12:12] VITALS: BP 120/59; TEMP 97.4
== END 2019-09-21 13:30 | DRG 884 ==
LOC: ER 09:15 → ERHOLD 11:21 → 4TH 12:09
PROVIDERS: ADMIT Family Medicine; ATTEND Family Medicine
DX: F03.90 Unspecified dementia, unspecified severity, without behavioral disturbance, psychotic disturbance, mood disturbance, and anxiety (principal); G93.41 Metabolic encephalopathy; E43 Unspecified severe protein-calorie malnutrition; M62.82 Rhabdomyolysis; E87.2 Acidosis; E87.0 Hyperosmolality and hypernatremia; Z68.1 Body mass index [BMI] 19.9 or less, adult; J98.11 Atelectasis; K70.30 Alcoholic cirrhosis of liver without ascites; J44.9 Chronic obstructive pulmonary disease, unspecified; D69.6 Thrombocytopenia, unspecified; I10 Essential (primary) hypertension; E78.5 Hyperlipidemia, unspecified; M47.9 Spondylosis, unspecified; D63.8 Anemia in other chronic diseases classified elsewhere; N40.0 Benign prostatic hyperplasia without lower urinary tract symptoms; K21.9 Gastro-esophageal reflux disease without esophagitis; E11.9 Type 2 diabetes mellitus without complications; S00.03XA Contusion of scalp, initial encounter; S40.011A Contusion of right shoulder, initial encounter; R13.10 Dysphagia, unspecified; R41.841 Cognitive communication deficit; I25.2 Old myocardial infarction; W19.XXXA Unspecified fall, initial encounter; Y92.129 Unspecified place in nursing home as the place of occurrence of the external cause; Z91.81 History of falling
CPT/HCPCS: 36415; 51702; 70450; 71045; 71046; 72125; 80048; 80053; 80076; 80202; 81003; 81015; 82140; 82150; 82274; 82550; 82553; 82728; 82805; 82947; 83540; 83605; 83690; 83735; 84100; 84132; 84145; 84466; 84484; 85025; 85610; 85730; 87040; 87205; 93005; 94760; 94762; 96360; 96365; 97116; 97161; 97530; 99284; J0360; J0692; J3411; J3475; J7030

== ENCOUNTER 2020-02-03 11:24 | Emergency (ER) | payer OTHER ==
--- OUTSIDE RECORDS SUMMARY | 2020-02-03 11:50 | XMS REPORT | Clinical Summary ---
:1940 Author Organization [facility] Address [address] [place] [address] Care Team Providers Name Role Phone Pcp Primary Care Provider Unavailable Allergies No Known Allergies Medications Medication Sig Dispensed Refills Start Date End Date Status pantoprazole Take 1 tablet 180 tablet 0 02/13/2019 A ctive (PROTONIX) 40 MG (40 mg total) tablet by mouth 2 (two) times daily For 12 weeks. ferrous sulfate Take 1 tablet 30 tablet 0 02/13/2019 Active 325 (65 FE) MG EC (325 mg total) tablet by mouth daily with breakfast Increase to 3x a day if tolerated. aspirin 81 MG Take 1 tablet 0 08/19/2019 A ctive chewable tablet (81 mg total) 1 by mouth daily. atorvastatin Take 1 tablet 0 08/18/2019 Ac tive (LIPITOR) 80 MG (80 mg total) 1 tablet by mouth nightly. folic acid Take 1 tablet 0 08/19/2019 Acti ve (FOLVITE) 1 MG (1 mg total) by 1 tablet mouth daily. lactulose Take 30 mLs (20 0 08/18/2019 Act katarzyna (CHRONULAC) 20 g total) by gram/30 mL mouth 3 (three) solution times daily. multivitamin Take 1 tablet 0 08/19/2019 Ac tive (THERAGRAN) tablet by mouth daily. 1 polyethylene Take 17 g by 14 each 0 08/18/2019 Act katarzyna glycol (GLYCOLAX) mouth 2 (two) 17 gram packet times daily. rifAXIMin 550 mg Take 1 tablet 0 08/18/2019 Active Tab (550 mg total) by mouth 2 (two) times daily. tamsulosin Take 1 capsule 0 08/18/2019 Act katarzyna (FLOMAX) 0.4 mg (0.4 mg total) Cap 24 hr capsule by mouth nightly. thiamine 100 MG Take 1 tablet 0 08/19/2019 Active tablet (100 mg total) 1 by mouth daily. simvastatin Take 10 mg by 0 Disc ontinued (ZOCOR) 10 MG mouth nightly. 9 tablet ferrous sulfate Take 325 mg by 0 Discontinued 325 (65 FE) MG mouth daily 9 tablet with breakfast. polyethylene Take 17 g by 14 each 0 02/13/2019 Dis continued glycol (GLYCOLAX) mouth 2 (two) 0 17 gram packet times daily. sucralfate Take 10 mLs (1 1200 mL 0 02/13/2019 Exp ired (CARAFATE) 100 g total) by 9 mg/mL [...] Encounters Date Type Specialty Care Team Description 08/26/2019 Telephone Hepatology Isra Whipple follow up on H CC SHIRLENE Gentile 08/19/2019 Abstract Hepatology Melissa Mi MA 08/06/2019 Anesthesia Event Gastroenterology Ranjeet Razo MD 08/06/2019 Surgery Gastroenterology [facility] ENDO ALBERTO Christianson MD 08/06/2019 Orders Only General Internal Medicine 08/06/2019 Travel 08/05/2019 Hospital General Internal Aurora Melton, Gastroi ntestinal hemorrhage with melena; - Encounter Medicine Cheikh Cummings, Hepatic ence phalopathy (HCC); 08/18/2019 Acute kidney injury (HCC); Brandon Putnam blood los s anemia; Davin higgins in; MD Adin 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); Omranian, Ali, Hepatocellula r carcinoma (HCC); Portal hypertension (HCC); Mckay Britton Metabolic enc ephalopathy; MD Micheline Acute respiratory failure with hypoxia ( HCC); Dany Ervin, Hyperammone viv (HCC); Acidosis; Acute metabolic encephalopathy; Abdominal pain, unspecified abdominal location; Essential hyper tension; Hypernatremia 08/05/2019 Telephone Critical Care Medicine steffen Ramirez MD 08/05/2019 Telephone Gastroenterology Merle [facility] MD 02/22/2019 Office Visit Hepatology Primitivo Guevara, Alcoholic ci rrhosis of liver with ascites (HCC) (Primary Dx); Gastrointestinal hemorrhage with melena; Jaylin Martell Immunity status testing; SHIRLENE Stevens Hepatocellular carcinoma (HCC); Anemia, unspeci fied type; Hepatic encepha lopathy (HCC); Portal hyperten rena (HCC) 02/12/2019 Anesthesia Event Gastroenterology Joel Clayton MD 02/12/2019 Surgery Gastroenterology [facility] U[facility]ER ENDO ALBERTO Christianson MD 02/11/2019 Travel 02/10/2019 Hospital General Internal Onesimo, Ke, Gastroi ntestinal hemorrhage, unspecified gastrointestinal hemorrhage type; - Encounter Medicine Acute on chronic blood loss anemia; 02/13/2019 Guillermina Churchill, Alcoholic c irrhosis of liver with ascites (HCC); Yareli Diaz MD Gastrointestinal hemorrhage with melena Gerard Patrick MD 02/10/2019 Telephone Gastroenterology [facility] GI Bleedin edgar Christianson MD after 02/02/2019 Family History Medical History Relation Name Comments Throat cancer Father Diabetes Mother Relation Name Status Comments Father Mother Social History Tobacco Use Types Packs/Day Years Used Date Current Every Day Smoker 1 60 Smokeless Tobacco: Never Used Tobacco Cessation: Ready to Quit: No; Co unseling Given: Yes Alcohol Use Drinks/Week oz/Week Comments Yes 2 Cans of beer 1.2 quit 5 days ago 09-14-17 Sex Assigned at Date Recorded Not on file Job Start Date Occupation Industry Not on file Not on file Not on file Travel History Travel Start Travel End No recent travel history available. Last Filed Vital Signs Vital Sign Reading Time Taken Blood Pressure 126/57 08/18/2019 12:30 PM [facility] Pulse 75 08/18/2019 12:30 PM [facility] Temperature 36.3 C (97.4 F) 08/18/2019 12:30 PM [facility] Respiratory Rate 18 08/18/2019 12:30 PM [facility] Oxygen Saturation 98% 08/18/2019 12:30 PM [facility] Inhaled Oxygen Concentration 30% 08/10/2019 8:00 AM [facility] Weight 73.4 kg (161 lb 13.1 oz) 08/18/2019 6:0 0 AM [facility] Height 182.9 cm (6') 08/06/2019 12:00 AM [facility] Body Mass Index 21.95 08/18/2019 6:00 AM [facility] Plan of Treatment Not on file Procedures Procedure Name Priority Date/Time Associated Comments Diagnosis RHYTHM STRIP - SCAN 08/19/2019 10:22 AM [facility] POCT-GLUCOSE METER Routine 08/18/2019 12:32 Resul ts for this PM [facility] procedure are i n the results section. POCT-GLUCOSE METER Routine 08/18/2019 8:18 Resul ts for this AM [facility] procedure are i n the results section. CBC W/PLT COUNT & Routine 08/18/2019 4:28 Result s for this AUTO DIFFERENTIAL AM [facility] procedure are in the results section. CBC W/PLT COUNT & Routine 08/18/2019 4:28 Result s for this AUTO DIFFERENTIAL AM [facility] procedure are in the results section. MAGNESIUM Routine 08/18/2019 4:28 Results for this AM [facility] procedure are i n the results section. BASIC METABOLIC PANEL Routine 08/18/2019 4:28 Re sults for this (7) AM [facility] procedure are i n the results section. POCT-GLUCOSE METER Routine 08/17/2019 9:10 Resul ts for this PM [facility] procedure are i n the results section. POCT-GLUCOSE METER Routine 08/17/2019 3:50 Resul ts for this PM [facility] procedure are i n the results section. POCT-GLUCOSE METER Routine 08/17/2019 11:40 Resul ts for this AM [facility] procedure are i n the results section. POCT-GLUCOSE METER Routine 08/17/2019 7:35 Resul ts for this AM [facility] procedure are i n the results section. CBC W/PLT COUNT & Routine 08/17/2019 3:52 Result s for this AUTO DIFFERENTIAL AM [facility] procedure are in the results section. CBC W/PLT COUNT & Routine 08/17/2019 3:52 Result s for this AUTO DIFFERENTIAL AM [facility] procedure are in the results section. MAGNESIUM Routine 08/17/2019 3:52 Results for this AM [facility] procedure are i n the results section. BASIC METABOLIC PANEL Routine 08/17/2019 3:52 Re sults for this (7) AM [facility] procedure are i n the results section. POCT-GLUCOSE METER Routine 08/16/2019 9:49 Resul ts for this PM [facility] procedure are i n the results section. POCT-GLUCOSE METER Routine 08/16/2019 4:18 Resul ts for this PM [facility] procedure are i n the results section. POCT-GLUCOSE METER Routine 08/16/2019 1:08 Resul ts for this PM [facility] procedure are i n the results section. POCT-GLUCOSE METER Routine 08/16/2019 11:46 Resul ts for this AM [facility] procedure are i n the results section. NM CARDIAC PET SOFIA 08/16/2019 9:26 Results f or this PERFUSION REST AND/OR AM [facility] proced ure are in STRESS the results section. TREADMILL Routine 08/16/2019 9:06 Results for this TOLERANCE(NON-NUCLEAR AM [facility] proced ure are in TREADMILL) the results section. ECG 12-LEAD Routine 08/16/2019 8:55 Results for this AM [facility] procedure are i n the results section. ECG 12-LEAD Routine 08/16/2019 8:55 AM [facility] Procedure Note - Interface, External Ris In - 08/16/2019 9:27 AM [facility] Ventricular Rate 69 BPM Atrial Rate 69 BPM P-R Interval 230 ms QRS Duration 98 ms Q-T Interval 422 ms QTC Calculation(Bazett) 452 ms P Redmond 77 degrees R Redmond 66 degrees T Redmond 72 degrees Sinus rhythm with 1st degree A-V block Otherwise normal ECG CBC W/PLT COUNT & AUTO Routine 08/16/2019 4:23 AM [facility] Results for this DIFFERENTIAL procedure are i n the results section . TROPONIN I Routine 08/16/2019 4:23 AM [facility] Resu lts for this procedure are i n the results section . CBC W/PLT COUNT & AUTO Routine 08/16/2019 4:23 AM [facility] Results for this DIFFERENTIAL procedure are i n the results section . MAGNESIUM Routine 08/16/2019 4:23 AM [facility] Resu lts for this procedure are i n the results section . BASIC METABOLIC PANEL (7) Routine 08/16/2019 4:23 AM [facility] Results for this procedure are i n the results section . POCT-GLUCOSE METER Routine 08/15/2019 8:34 PM [facility] Results for this procedure are i n the results section . POCT-GLUCOSE METER Routine 08/15/2019 6:30 PM [facility] Results for this procedure are i n the results section . TRANSFUSION SERVICE REPORT - 08/15/2019 6:00 PM [facility] SCAN POCT-GLUCOSE METER Routine 08/15/2019 11:32 AM [facility] Results for this procedure are i n the results section . POCT-GLUCOSE METER Routine 08/15/2019 7:45 AM [facility] Results for this procedure are i n the results section . CBC W/PLT COUNT & AUTO Routine 08/15/2019 4:23 AM [facility] Results for this DIFFERENTIAL procedure are i n the results section . CBC W/PLT COUNT & AUTO Routine 08/15/2019 4:23 AM [facility] Results for this DIFFERENTIAL procedure are i n the results section . MAGNESIUM Routine 08/15/2019 4:23 AM [facility] Resu lts for this procedure are i n the results section . BASIC METABOLIC PANEL (7) Routine 08/15/2019 4:23 AM [facility] Results for this procedure are i n the results section . POCT-GLUCOSE METER Routine 08/14/2019 9:37 PM [facility] Results for this procedure are i n the results section . POCT-GLUCOSE METER Routine 08/14/2019 5:11 PM [facility] Results for this procedure are i n the results section . MR ABDOMEN WITH & WITHOUT IV Routine 08/14/2019 5:00 PM [facility] Results for this CONTRAST procedure are i n the results section . POCT-GLUCOSE METER Routine 08/14/2019 12:13 PM [facility] Results for this procedure are i n the results section . POCT-GLUCOSE METER Routine 08/14/2019 8:13 AM [facility] Results for this procedure are i n the results section . CBC W/PLT COUNT & AUTO Routine 08/14/2019 6:11 AM [facility] Results for this DIFFERENTIAL procedure are i n the results section . TYPE AND SCREEN, AUTOMATED Routine 08/14/2019 6:11 AM [facility] Results for this procedure are i n the results section . CBC W/PLT COUNT & AUTO Routine 08/14/2019 6:11 AM [facility] Results for this DIFFERENTIAL procedure are i n the results section . MAGNESIUM Routine 08/14/2019 6:11 AM [facility] Resu lts for this procedure are i n the results section . BASIC METABOLIC PANEL (7) Routine 08/14/2019 6:11 AM [facility] Results for this procedure are i n the results section . POCT-GLUCOSE METER Routine 08/13/2019 9:23 PM [facility] Results for this procedure are i n the results section . POCT-GLUCOSE METER Routine 08/13/2019 6:32 PM [facility] Results for this procedure are i n the results section . TRANSFUSION SERVICE REPORT - 08/13/2019 6:01 PM [facility] SCAN POCT-GLUCOSE METER Routine 08/13/2019 12:04 PM [facility] Results for this procedure are i n the results section . POCT-GLUCOSE METER Routine 08/13/2019 7:18 AM [facility] Results for this procedure are i n the results section . CBC W/PLT COUNT & AUTO Routine 08/13/2019 4:22 AM [facility] Results for this DIFFERENTIAL procedure are i n the results section . CBC W/PLT COUNT & AUTO Routine 08/13/2019 4:22 AM [facility] Results for this DIFFERENTIAL procedure are i n the results section . PT/APTT Routine 08/13/2019 4:22 AM [facility] Resu lts for this procedure are i n the results section . PHOSPHORUS Routine 08/13/2019 4:22 AM [facility] Resu lts for this procedure are i n the results section . MAGNESIUM Routine 08/13/2019 4:22 AM [facility] Resu lts for this procedure are i n the results section . BASIC METABOLIC PANEL (7) Routine 08/13/2019 4:22 AM [facility] Results for this procedure are i n the results section . PREPARE LEUKO-REDUCED RBC Routine 08/12/2019 11:54 PM [facility] Results for this procedure are i n the results section . POCT-GLUCOSE METER Routine 08/12/2019 9:47 PM [facility] Results for this procedure are i n the results section . TRANSFUSION SERVICE REPORT - 08/12/2019 6:00 PM [facility] SCAN POCT-GLUCOSE METER Routine 08/12/2019 4:41 PM [facility] Results for this procedure are i n the results section . POCT-GLUCOSE METER Routine 08/12/2019 11:44 AM [facility] Results for this procedure are i n the results section . POCT-GLUCOSE METER Routine 08/12/2019 7:45 AM [facility] Results for this procedure are i n the results section . AMMONIA Routine 08/12/2019 6:29 AM [facility] Resu lts for this procedure are i n the results section . CBC W/PLT COUNT & AUTO Routine 08/12/2019 4:23 AM [facility] Results for this DIFFERENTIAL procedure are i n the results section . MITOCHONDRIAL AB TITER Routine 08/12/2019 4:23 AM [facility] Results for this procedure are i n the results section . MITOCHONDRIAL AB SCREEN Routine 08/12/2019 4:23 AM [facility] Results for this procedure are i n the results section . ALISSA TITER AND PATTERN Routine 08/12/2019 4:23 AM [facility] Results for this procedure are i n the results section . HEPATITIS C ANTIBODY Routine 08/12/2019 4:23 AM [facility] Results for this procedure are i n the results section . ANTI-NUCLEAR ANTIBODY (ALISSA) Routine 08/12/2019 4:23 AM [facility] Results for this procedure are i n the results section . [id number]-[id number]\, SERUM Routine 08/12/2019 4:23 AM [facility] Results for this procedure are i n the results section . CERULOPLASMIN Routine 08/12/2019 4:23 AM [facility] Res ults for this procedure are i n the results section . ANTI-MITOCHONDRIAL AB, Routine 08/12/2019 4:23 AM [facility] REFLEX TO TITER CBC W/PLT COUNT & AUTO Routine 08/12/2019 4:23 AM [facility] Results for this DIFFERENTIAL procedure are i n the results section . FIBRINOGEN Routine 08/12/2019 4:23 AM [facility] Resu lts for this procedure are i n the results section . PT/APTT Routine 08/12/2019 4:23 AM [facility] Resu lts for this procedure are i n the results section . PHOSPHORUS Routine 08/12/2019 4:23 AM [facility] Resu lts for this procedure are i n the results section . MAGNESIUM Routine 08/12/2019 4:23 AM [facility] Resu lts for this procedure are i n the results section . BASIC METABOLIC PANEL (7) Routine 08/12/2019 4:23 AM [facility] Results for this procedure are i n the results section . IMMUNOGLOBULIN G (IGG) SOFIA 08/12/2019 4:23 AM [facility] Results for this procedure are i n the results section . HEPATITIS C PCR, Routine 08/12/2019 4:22 AM [facility] Results for this QUANTITATIVE procedure are i n the results section . ACTIN (SMOOTH MUSCLE) Routine 08/12/2019 4:22 AM [facility] Results for this ANTIBODY, IGG procedure are in the results section . POCT-GLUCOSE METER Routine 08/12/2019 12:38 AM [facility] Results for this procedure are i n the results section . PREPARE LEUKO-REDUCED RBC SOFIA 08/11/2019 11:54 PM [facility] Results for this procedure are i n the results section . TRANSFUSE LEUKO-REDUCED RED Routine 08/11/2019 10:23 PM [facility] BLOOD CELLS POCT-GLUCOSE METER Routine 08/11/2019 10:16 PM [facility] Results for this procedure are i n the results section . HEMOGLOBIN AND HEMATOCRIT Routine 08/11/2019 7:56 PM [facility] Results for this procedure are i n the results section . TRANSFUSION SERVICE REPORT - 08/11/2019 6:03 PM [facility] SCAN POCT-GLUCOSE METER Routine 08/11/2019 5:36 PM [facility] Results for this procedure are i n the results section . MAGNESIUM Routine 08/11/2019 3:41 PM [facility] Resu lts for this procedure are i n the results section . HEPATITIS C ANTIBODY Routine 08/11/2019 3:41 PM [facility] Results for this procedure are i n the results section . IMMUNOGLOBULIN G (IGG) Routine 08/11/2019 3:41 PM [facility] Results for this procedure are i n the results section . HEMOGLOBIN AND HEMATOCRIT Routine 08/11/2019 3:41 PM [facility] Results for this procedure are i n the results section . POCT-GLUCOSE METER Routine 08/11/2019 11:59 AM [facility] Results for this procedure are i n the results section . AMMONIA Routine 08/11/2019 5:01 AM [facility] Resu lts for this procedure are i n the results section . PHOSPHORUS Routine 08/11/2019 4:01 AM [facility] Resu lts for this procedure are i n the results section . MAGNESIUM Routine 08/11/2019 4:01 AM [facility] Resu lts for this procedure are i n the results section . BASIC METABOLIC PANEL (7) Routine 08/11/2019 4:01 AM [facility] Results for this procedure are i n the results section . CBC W/PLT COUNT & AUTO Routine 08/11/2019 4:00 AM [facility] Results for this DIFFERENTIAL procedure are i n the results section . CBC W/PLT COUNT & AUTO Add-On 08/11/2019 4:00 AM [facility] Results for this DIFFERENTIAL procedure are i n the results section . RETICULOCYTE COUNT Routine 08/11/2019 4:00 AM [facility] Results for this procedure are i n the results section . VITAMIN B12 AND FOLATE Routine 08/11/2019 4:00 AM [facility] Results for this procedure are i n the results section . FERRITIN Routine 08/11/2019 4:00 AM [facility] Resu lts for this procedure are i n the results section . TRANSFERRIN Routine 08/11/2019 4:00 AM [facility] Resu lts for this procedure are i n the results section . IRON, TIBC, % SAT. (WITHOUT Routine 08/11/2019 4:00 AM [facility] Results for this FERRITIN) procedure are i n the results section . FIBRINOGEN Routine 08/11/2019 4:00 AM [facility] Resu lts for this procedure are i n the results section . PT/APTT Routine 08/11/2019 4:00 AM [facility] Resu lts for this procedure are i n the results section . HEMOGLOBIN AND HEMATOCRIT Routine 08/10/2019 11:30 PM [facility] Results for this procedure are i n the results section . TRANSFUSE LEUKO-REDUCED RED SOFIA 08/10/2019 10:01 PM [facility] BLOOD CELLS TYPE AND SCREEN, AUTOMATED STAT 08/10/2019 5:50 PM [facility] Results for this procedure are i n the results section . POCT-GLUCOSE METER Routine 08/10/2019 5:14 PM [facility] Results for this procedure are i n the results section . HEMOGLOBIN AND HEMATOCRIT STAT 08/10/2019 5:04 PM [facility] Results for this procedure are i n the results section . MAGNESIUM Routine 08/10/2019 3:55 PM [facility] Resu lts for this procedure are i n the results section . POTASSIUM Routine 08/10/2019 3:55 PM [facility] Resu lts for this procedure are i n the results section . HEMOGLOBIN AND HEMATOCRIT Routine 08/10/2019 3:55 PM [facility] Results for this procedure are i n the results section . POCT-GLUCOSE METER Routine 08/10/2019 1:03 PM [facility] Results for this procedure are i n the results section . POCT-GLUCOSE METER Routine 08/10/2019 6:16 AM [facility] Results for this procedure are i n the results section . AMMONIA Routine 08/10/2019 4:30 AM [facility] Resu lts for this procedure are i n the results section . XR CHEST 1 VIEW Routine 08/10/2019 3:56 AM [facility] R esults for this PORTABLE/BEDSIDE procedure a re in the results section . (CELLAVISION MANUAL DIFF) Routine 08/10/2019 3:50 AM [facility] Results for this procedure are i n the results section . CBC W/PLT COUNT & AUTO Routine 08/10/2019 3:50 AM [facility] Results for this DIFFERENTIAL procedure are i n the results section . HEPATITIS B CORE ANTIBODY, Routine 08/10/2019 3:50 AM [facility] Results for this TOTAL procedure are i n the results section . HEPATITIS B SURFACE ANTIBODY Routine 08/10/2019 3:50 AM [facility] Results for this procedure are i n the results section . ALPHA FETOPROTEIN (AFP), Routine 08/10/2019 3:50 AM [facility] Results for this TUMOR MARKER procedure are i n the results section . PT/APTT Routine 08/10/2019 3:50 AM [facility] Resu lts for this procedure are i n the results section . CBC W/PLT COUNT & AUTO Routine 08/10/2019 3:50 AM [facility] Results for this DIFFERENTIAL procedure are i n the results section . PHOSPHORUS Routine 08/10/2019 3:50 AM [facility] Resu lts for this procedure are i n the results section . MAGNESIUM Routine 08/10/2019 3:50 AM [facility] Resu lts for this procedure are i n the results section . BASIC METABOLIC PANEL (7) Routine 08/10/2019 3:50 AM [facility] Results for this procedure are i n the results section . BLOOD GAS, ARTERIAL STAT 08/10/2019 3:46 AM [facility] Results for this procedure are i n the results section . POCT-GLUCOSE METER Routine 08/10/2019 12:13 AM [facility] Results for this procedure are i n the results section . HEMOGLOBIN AND HEMATOCRIT Routine 08/09/2019 9:29 PM [facility] Results for this procedure are i n the results section . POCT-GLUCOSE METER Routine 08/09/2019 6:32 PM [facility] Results for this procedure are i n the results section . BASIC METABOLIC PANEL (7) Routine 08/09/2019 1:47 PM [facility] Results for this procedure are i n the results section . HEMOGLOBIN AND HEMATOCRIT Routine 08/09/2019 1:47 PM [facility] Results for this procedure are i n the results section . POCT-GLUCOSE METER Routine 08/09/2019 12:12 PM [facility] Results for this procedure are i n the results section . POCT-GLUCOSE METER Routine 08/09/2019 5:49 AM [facility] Results for this procedure are i n the results section . BLOOD GAS, ARTERIAL Routine 08/09/2019 4:55 AM [facility] Results for this procedure are i n the results section . CBC W/PLT COUNT & AUTO Routine 08/09/2019 4:53 AM [facility] Results for this DIFFERENTIAL procedure are i n the results section . PT/APTT Routine 08/09/2019 4:53 AM [facility] Resu lts for this procedure are i n the results section . FIBRINOGEN Routine 08/09/2019 4:53 AM [facility] Resu lts for this procedure are i n the results section . CBC W/PLT COUNT & AUTO Routine 08/09/2019 4:53 AM [facility] Results for this DIFFERENTIAL procedure are i n the results section . PHOSPHORUS Routine 08/09/2019 4:53 AM [facility] Resu lts for this procedure are i n the results section . MAGNESIUM Routine 08/09/2019 4:53 AM [facility] Resu lts for this procedure are i n the results section . BASIC METABOLIC PANEL (7) Routine 08/09/2019 4:53 AM [facility] Results for this procedure are i n the results section . AMMONIA Routine 08/09/2019 4:53 AM [facility] Resu lts for this procedure are i n the results section . XR CHEST 1 VIEW Routine 08/09/2019 3:49 AM [facility] R esults for this PORTABLE/BEDSIDE procedure a re in the results section . POCT-GLUCOSE METER Routine 08/09/2019 12:07 AM [facility] Results for this procedure are i n the results section . HEMOGLOBIN AND HEMATOCRIT Routine 08/08/2019 11:17 PM [facility] Results for this procedure are i n the results section . POCT-GLUCOSE METER Routine 08/08/2019 1:27 PM [facility] Results for this procedure are i n the results section . TSH/FREE T4 IF INDICATED Routine 08/08/2019 10:56 AM [facility] Results for this procedure are i n the results section . HEMOGLOBIN AND HEMATOCRIT Routine 08/08/2019 10:56 AM [facility] Results for this procedure are i n the results section . SPUTUM CULTURE + GRAM STAIN STAT 08/08/2019 10:56 AM [facility] Results for this procedure are i n the results section . POCT-GLUCOSE METER Routine 08/08/2019 6:38 AM [facility] Results for this procedure are i n the results section . XR CHEST 1 VIEW Routine 08/08/2019 6:22 AM [facility] R esults for this PORTABLE/BEDSIDE procedure a re in the results section . CBC W/PLT COUNT & AUTO Routine 08/08/2019 3:32 AM [facility] Results for this DIFFERENTIAL procedure are i n the results section . PT/APTT Routine 08/08/2019 3:32 AM [facility] Resu lts for this procedure are i n the results section . FIBRINOGEN Routine 08/08/2019 3:32 AM [facility] Resu lts for this procedure are i n the results section . CBC W/PLT COUNT & AUTO Routine 08/08/2019 3:32 AM [facility] Results for this DIFFERENTIAL procedure are i n the results section . PHOSPHORUS Routine 08/08/2019 3:32 AM HAM SMOKER Resu lts for this procedure are i n the results section . MAGNESIUM Routine 08/08/2019 3:32 AM HAM SMOKER Resu lts for this procedure are i n the results section . BASIC METABOLIC PANEL (7) Routine 08/08/2019 3:32 AM HAM SMOKER Results for this procedure are i n the results section . AMMONIA Routine 08/08/2019 3:32 AM HAM SMOKER Resu lts for this procedure are i n the results section . BLOOD GAS, ARTERIAL Routine 08/08/2019 3:31 AM HAM SMOKER Results for this procedure are i n the results section . POCT-GLUCOSE METER Routine 08/08/2019 1:22 AM HAM SMOKER Results for this procedure are i n the results section . PREPARE LEUKO-REDUCED RBC STAT 08/07/2019 11:54 PM HAM SMOKER Results for this procedure are i n the results section . PREPARE LEUKO-REDUCED RBC Routine 08/07/2019 11:54 PM HAM SMOKER Results for this procedure are i n the results section . HEMOGLOBIN AND HEMATOCRIT Routine 08/07/2019 6:52 PM HAM SMOKER Results for this procedure are i n the results section . BLOOD GAS, ARTERIAL SOFIA 08/07/2019 6:52 PM HAM SMOKER Results for this procedure are i n the results section . PT/APTT Routine 08/07/2019 6:52 PM HAM SMOKER Resu lts for this procedure are i n the results section . FIBRINOGEN Routine 08/07/2019 6:52 PM HAM SMOKER Resu lts for this procedure are i n the results section . (CELLAVISION MANUAL DIFF) STAT 08/07/2019 6:51 PM HAM SMOKER Results for this procedure are i n the results section . CBC W/PLT COUNT & AUTO STAT 08/07/2019 6:51 PM HAM SMOKER Results for this DIFFERENTIAL procedure are i n the results section . CBC W/PLT COUNT & AUTO STAT 08/07/2019 6:51 PM HAM SMOKER Results for this DIFFERENTIAL procedure are i n the results section . XR CHEST 1 VIEW STAT 08/07/2019 6:02 PM HAM SMOKER R esults for this PORTABLE/BEDSIDE procedure a re in the results section . TRANSFUSION SERVICE REPORT - 08/07/2019 6:01 PM HAM SMOKER SCAN TROPONIN I Routine 08/07/2019 4:10 PM HAM SMOKER Resu lts for this procedure are i n the results section . CBC (HEMOGRAM ONLY) Routine 08/07/2019 4:10 PM HAM SMOKER Results for this procedure are i n the results section . GASTRIN Routine 08/07/2019 10:29 AM HAM SMOKER Resu lts for this procedure are i n the results section . CT BRAIN WITHOUT IV CONTRAST STAT 08/07/2019 8:33 AM HAM SMOKER Results for this procedure are i n the results section . AMMONIA STAT 08/07/2019 8:04 AM HAM SMOKER Resu lts for this procedure are i n the results section . TROPONIN I Routine 08/07/2019 8:04 AM HAM SMOKER Resu lts for this procedure are i n the results section . CBC (HEMOGRAM ONLY) Routine 08/07/2019 8:04 AM HAM SMOKER Results for this procedure are i n the results section . POCT-GLUCOSE METER Routine 08/07/2019 5:49 AM HAM SMOKER Results for this procedure are i n the results section . BLOOD GAS, ARTERIAL Routine 08/07/2019 2:27 AM HAM SMOKER Results for this procedure are i n the results section . AMMONIA Routine 08/07/2019 2:20 AM HAM SMOKER Resu lts for this procedure are i n the results section . LACTIC ACID, VENOUS Routine 08/07/2019 1:34 AM HAM SMOKER Results for this procedure are i n the results section . MAGNESIUM Routine 08/07/2019 1:30 AM HAM SMOKER Resu lts for this procedure are i n the results section . BASIC METABOLIC PANEL (7) Routine 08/07/2019 1:30 AM HAM SMOKER Results for this procedure are i n the results section . TROPONIN I Routine 08/07/2019 1:30 AM HAM SMOKER Resu lts for this procedure are i n the results section . CBC W/PLT COUNT & AUTO Routine 08/07/2019 1:29 AM HAM SMOKER Results for this DIFFERENTIAL procedure are i n the results section . CBC W/PLT COUNT & AUTO Routine 08/07/2019 1:29 AM HAM SMOKER Results for this DIFFERENTIAL procedure are i n the results section . CBC (HEMOGRAM ONLY) Routine 08/07/2019 1:29 AM HAM SMOKER Results for this procedure are i n the results section . ECHOCARDIOGRAM REPORT - SCAN 08/06/2019 9:22 PM HAM SMOKER REPORT OF PROCEDURE - 08/06/2019 8:16 PM HAM SMOKER ENDOSCOPY URL ECG 12-LEAD Routine 08/06/2019 6:42 PM HAM SMOKER Procedure Note - Interface, External Ris In - 08/06/2019 6:43 PM HAM SMOKER Ventricular Rate 102 BPM Atrial Rate 102 BPM QRS Duration 90 ms Q-T Interval 360 ms QTC Calculation(Bazett) 469 ms R Redmond 26 degrees T Redmond 46 degrees Sinus tachycardia with 1st d egree A-V block Otherwise normal ECG No previous ECGs available ECG 12-LEAD STAT 08/06/2019 6:42 PM Results for this HAM SMOKER procedure are i n the results section. ECG 12-LEAD Routine 08/06/2019 6:41 PM Results for this HAM SMOKER procedure are i n the results section. ECG 12-LEAD Routine 08/06/2019 6:40 PM Results for this HAM SMOKER procedure are i n the results section. TRANSFUSION SERVICE 08/06/2019 6:02 PM REPORT - SCAN HAM SMOKER CBC (HEMOGRAM ONLY) Routine 08/06/2019 6:01 PM R esults for this HAM SMOKER procedure are i n the results section. TRANSFUSE STAT 08/06/2019 2:47 PM LEUKO-REDUCED RED HAM SMOKER BLOOD CELLS XR ABDOMEN / KUB 1 STAT 08/06/2019 12:12 PM Re sults for this VIEW HAM SMOKER procedure are i n the results section. 2D ECHO W/ DOPPLER STAT 08/06/2019 11:06 AM Re sults for this (CW/PW/COLOR) HAM SMOKER procedure are in the results section. UREA NITROGEN, RANDOM Routine 08/06/2019 9:53 AM Results for this URINE HAM SMOKER procedure are i n the results section. POTASSIUM, RANDOM Routine 08/06/2019 9:53 AM Res ults for this URINE HAM SMOKER procedure are i n the results section. CREATININE, RANDOM Routine 08/06/2019 9:53 AM Re sults for this URINE HAM SMOKER procedure are i n the results section. CHLORIDE, RANDOM URINE Routine 08/06/2019 9:53 AM Results for this HAM SMOKER procedure are i n the results section. SODIUM, RANDOM URINE Routine 08/06/2019 9:53 AM Results for this HAM SMOKER procedure are i n the results section. UPPER ENDOSCOPY 08/06/2019 8:00 AM Upper GI bleed HAM SMOKER Special Needs (REQ:TF) TROPONIN I Routine 08/06/2019 5:56 Results for AM HAM SMOKER this procedure are in the results section. CBC W/PLT COUNT & AUTO Routine 08/06/2019 5:55 R esults for DIFFERENTIAL AM HAM SMOKER this procedure are in the results section. CBC W/PLT COUNT & AUTO Routine 08/06/2019 5:55 R esults for DIFFERENTIAL AM HAM SMOKER this procedure are in the results section. POCT-GLUCOSE METER Routine 08/06/2019 5:51 Resul ts for AM HAM SMOKER this procedure are in the results section. TRANSFUSE LEUKO-REDUCED Routine 08/06/2019 4:31 RED BLOOD CELLS AM HAM SMOKER PHOSPHORUS Routine 08/06/2019 3:38 Results for AM HAM SMOKER this procedure are in the results section. MAGNESIUM Routine 08/06/2019 3:38 Results for AM HAM SMOKER this procedure are in the results section. BASIC METABOLIC PANEL (7) Routine 08/06/2019 3:38 Results for AM HAM SMOKER this procedure are in the results section. LACTIC ACID, VENOUS Routine 08/06/2019 3:38 Resu lts for AM HAM SMOKER this procedure are in the results section. URINALYSIS W/ REFLEX Routine 08/06/2019 2:03 Res ults for URINE CULTURE AM HAM SMOKER this procedure are in the results section. URINE CULTURE Routine 08/06/2019 2:03 Results fo r AM HAM SMOKER this procedure are in the results section. ECG 12-LEAD STAT(After 08/06/2019 1:40 Results for Hours Page AM HAM SMOKER this procedure Staff) are in the results section. CBC W/PLT COUNT & AUTO Routine 08/05/2019 11:48 R esults for DIFFERENTIAL PM HAM SMOKER this procedure are in the results section. TROPONIN I Routine 08/05/2019 11:48 Results for PM HAM SMOKER this procedure are in the results section. BASIC METABOLIC PANEL (7) Routine 08/05/2019 11:48 Results for PM HAM SMOKER this procedure are in the results section. CBC W/PLT COUNT & AUTO Routine 08/05/2019 11:48 R esults for DIFFERENTIAL PM HAM SMOKER this procedure are in the results section. LACTIC ACID, VENOUS Routine 08/05/2019 11:48 Resu lts for PM HAM SMOKER this procedure are in the results section. XR CHEST 1 VIEW STAT 08/05/2019 11:40 Results for PORTABLE/BEDSIDE PM HAM SMOKER this proced ure are in the results section. ECG 12-LEAD Routine 08/05/2019 9:37 Results for PM HAM SMOKER this procedure are in the results section. BLOOD CULTURE Routine 08/05/2019 9:05 Results fo r PM HAM SMOKER this procedure are in the results section. AMMONIA Routine 08/05/2019 8:54 Results for PM HAM SMOKER this procedure are in the results section. BLOOD CULTURE Routine 08/05/2019 8:52 Results fo r PM HAM SMOKER this procedure are in the results section. XR CHEST 1 VIEW Routine 08/05/2019 8:48 Results for PORTABLE/BEDSIDE PM HAM SMOKER this proced ure are in the results section. TROPONIN I Add-On 08/05/2019 8:12 Results for PM [facility]AM SMOKER this procedure are in the results section. PROTHROMBIN TIME/INR STAT 08/05/2019 8:12 Res ults for PM HAM SMOKER this procedure are in the results section. COMPREHENSIVE METABOLIC STAT 08/05/2019 8:12 Results for PANEL PM HAM SMOKER this procedure are in the results section. APTT STAT 08/05/2019 8:12 Results for PM HAM SMOKER this procedure are in the results section. CBC W/PLT COUNT & AUTO STAT 08/05/2019 8:11 R esults for DIFFERENTIAL PM HAM SMOKER this procedure are in the results section. TYPE AND SCREEN, Routine 08/05/2019 8:11 Results for AUTOMATED PM HAM SMOKER this procedure are in the results section. CBC W/PLT COUNT & AUTO STAT 08/05/2019 8:11 R esults for DIFFERENTIAL PM HAM SMOKER this procedure are in the results section. THROMBOELASTOGRAPH (TEG) STAT 08/05/2019 8:11 Results for PM HAM SMOKER this procedure are in the results section. LACTIC ACID, VENOUS Routine 08/05/2019 8:11 Resu lts for PM HAM SMOKER this procedure are in the results section. 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 PROTHROMBIN TIME/INR Routine 02/22/2019 12:51 Alcoholic Res ults for PM CDT cirrhosis of this procedure liver with are in the ascites (HCC) results section. 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 HEPATIC FUNCTION PANEL Routine 02/22/2019 12:51 Alcoholic R esults for PM CDT cirrhosis of this procedure liver with are in the ascites (HCC) results section. BASIC METABOLIC PANEL (7) Routine 02/22/2019 12:51 Alcoholic Results for PM CDT cirrhosis of this procedure liver with are in the ascites (HCC) results section. RHYTHM STRIP - SCAN 02/15/2019 12:12 PM CDT REPORT OF PROCEDURE - 02/14/2019 12:40 ENDOSCOPY SCAN PM CDT RHYTHM STRIP - SCAN 02/14/2019 12:40 PM CDT ECHOCARDIOGRAM REPORT - 02/13/2019 9:21 SCAN PM CDT TRANSFUSION SERVICE 02/13/2019 6:02 REPORT - SCAN PM CDT MR ABDOMEN WITH & WITHOUT STAT 02/13/2019 1:32 Results for IV CONTRAST PM CDT this procedure are in the results section. POCT-GLUCOSE METER Routine 02/13/2019 10:29 Resul ts for AM CDT this procedure are in the results section. POCT-GLUCOSE METER Routine 02/13/2019 7:09 Resul ts for AM CDT this procedure are in the results section. CBC (HEMOGRAM ONLY) Routine 02/13/2019 5:03 Resu lts for AM CDT this procedure are in the results section. PROTHROMBIN TIME/INR Routine 02/13/2019 5:03 Res ults for AM CDT this procedure are in the results section. PT/APTT Routine 02/13/2019 5:03 Results for AM CDT this procedure are in the results section. HEPATIC FUNCTION PANEL Routine 02/13/2019 5:03 R esults for AM CDT this procedure are in the results section. BASIC METABOLIC PANEL (7) Routine 02/13/2019 5:03 Results for AM CDT this procedure are in the results section. PREPARE LEUKO-REDUCED RBC Routine 02/12/2019 11:54 Results for PM CDT this procedure are in the results section. POCT-GLUCOSE METER Routine 02/12/2019 9:07 Resul ts for PM CDT this procedure are in the results section. TRANSFUSION SERVICE 02/12/2019 6:03 REPORT - SCAN PM CDT 2D ECHO W/ DOPPLER SOFIA 02/12/2019 5:35 Resul ts for (CW/PW/COLOR) PM CDT this procedure are in the results section. REPORT OF PROCEDURE - 02/12/2019 5:07 ENDOSCOPY URL PM CDT POCT-GLUCOSE METER Routine 02/12/2019 3:53 Resul ts for PM CDT this procedure are in the results section. POCT-GLUCOSE METER Routine 02/12/2019 12:26 Resul ts for PM CDT this procedure are in the results section. POCT-GLUCOSE METER Routine 02/12/2019 10:18 Resul ts for AM CDT this procedure are in the results section. UPPER ENDOSCOPY 02/12/2019 9:00 Upper GI bleed AM CDT Special Needs egd w/ anes ALPHA FETOPROTEIN (AFP), Routine 02/12/2019 4:43 AM CDT Results for this TUMOR MARKER procedure are i n the results section . FERRITIN Routine 02/12/2019 4:43 AM CDT Resu lts for this procedure are i n the results section . IRON, TIBC, % SAT. (WITHOUT Routine 02/12/2019 4:43 AM CDT Results for this FERRITIN) procedure are i n the results section . CBC (HEMOGRAM ONLY) Routine 02/12/2019 4:43 AM CDT Results for this procedure are i n the results section . PHOSPHORUS Routine 02/12/2019 4:43 AM CDT Resu lts for this procedure are i n the results section . MAGNESIUM Routine 02/12/2019 4:43 AM CDT Resu lts for this procedure are i n the results section . PROTHROMBIN TIME/INR Routine 02/12/2019 4:43 AM CDT Results for this procedure are i n the results section . PT/APTT Routine 02/12/2019 4:43 AM CDT Resu lts for this procedure are i n the results section . HEPATIC FUNCTION PANEL Routine 02/12/2019 4:43 AM CDT Results for this procedure are i n the results section . BASIC METABOLIC PANEL (7) Routine 02/12/2019 4:43 AM CDT Results for this procedure are i n the results section . HEPATITIS A ANTIBODY, IGG Routine 02/11/2019 6:10 PM CDT Results for this procedure are i n the results section . HEMOGLOBIN AND HEMATOCRIT Routine 02/11/2019 2:18 PM CDT Results for this procedure are i n the results section . TRANSFUSE LEUKO-REDUCED RED Routine 02/11/2019 1:35 PM CDT BLOOD CELLS TROPONIN I STAT 02/11/2019 8:13 AM CDT Resu lts for this procedure are i n the results section . US ABDOMINAL WITH DOPPLER SOFIA 02/11/2019 7:59 AM CDT Results for this procedure are i n the results section . TRANSFUSE LEUKO-REDUCED RED Routine 02/11/2019 6:10 AM CDT BLOOD CELLS AMMONIA Routine 02/11/2019 1:23 AM CDT Resu lts for this procedure are i n the results section . CBC W/PLT COUNT & AUTO Routine 02/11/2019 12:34 AM CDT Results for this DIFFERENTIAL procedure are i n the results section . TYPE AND SCREEN, AUTOMATED Routine 02/11/2019 12:34 AM CDT Results for this procedure are i n the results section . CBC W/PLT COUNT & AUTO Routine 02/11/2019 12:34 AM CDT Results for this DIFFERENTIAL procedure are i n the results section . PHOSPHORUS Routine 02/11/2019 12:34 AM CDT Resu lts for this procedure are i n the results section . MAGNESIUM Routine 02/11/2019 12:34 AM CDT Resu lts for this procedure are i n the results section . PROTHROMBIN TIME/INR Routine 02/11/2019 12:34 AM CDT Results for this procedure are i n the results section . PT/APTT Routine 02/11/2019 12:34 AM CDT Resu lts for this procedure are i n the results section . HEPATIC FUNCTION PANEL Routine 02/11/2019 12:34 AM CDT Results for this procedure are i n the results section . BASIC METABOLIC PANEL (7) Routine 02/11/2019 12:34 AM CDT Results for this procedure are i n the results section . TROPONIN I STAT 02/11/2019 12:34 AM CDT Resu lts for this procedure are i n the results section . XR CHEST 2 VIEWS STAT 02/10/2019 10:35 PM CDT Results for this procedure are i n the results section . URINALYSIS W/ REFLEX URINE Routine 02/10/2019 10:17 PM CDT Results for this CULTURE procedure are i n the results section . BLOOD CULTURE Routine 02/10/2019 10:15 PM CDT Res ults for this procedure are i n the results section . (CELLAVISION MANUAL DIFF) Routine 02/10/2019 10:10 PM CDT Results for this procedure are i n the results section . CBC W/PLT COUNT & AUTO Routine 02/10/2019 10:10 PM CDT Results for this DIFFERENTIAL procedure are i n the results section . ALPHA FETOPROTEIN (AFP), Routine 02/10/2019 10:10 PM CDT Results for this TUMOR MARKER procedure are i n the results section . TROPONIN I STAT 02/10/2019 10:10 PM CDT Resu lts for this procedure are i n the results section . APTT STAT 02/10/2019 10:10 PM CDT Resu lts for this procedure are i n the results section . PROTHROMBIN TIME/INR STAT 02/10/2019 10:10 PM CDT Results for this procedure are i n the results section . COMPREHENSIVE METABOLIC STAT 02/10/2019 10:10 PM CDT Results for this PANEL procedure are i n the results section . CBC W/PLT COUNT & AUTO STAT 02/10/2019 10:10 PM CDT Results for this DIFFERENTIAL procedure are i n the results section . BLOOD CULTURE Routine 02/10/2019 10:10 PM CDT Res ults for this procedure are i n the results section . POCT-GLUCOSE METER Routine 02/10/2019 9:23 PM CDT Results for this procedure are i n the results section . after 02/02/2019 Results RHYTHM STRIP - SCAN (08/19/2019 10:22 AM HAM SMOKER)Only the most recent of3 results within the time period is included. Narrative Performed At This result has an attachment that is no t available. POC-Glucose meter (08/18/2019 12:32 PM HAM SMOKER)Only the most recent of50 results within the time period is included. POC-Glucose Meter 158 (H)Comment: : TESTED 70 - 110 mg/dL [facility] AT [address], [id number]: Automotive Repair Technician/Cyber Security Instructor ID = [id number] for ROLAND MCINTYRE Specimen Blood Performing Organization Address City/State/Zipcode Phone Number [place] [phone] CENTER CBC with platelet count + automated diff (08/18/2019 4:28 AM HAM SMOKER)Only the most recent of19 resultswithin the time period is included. WBC 2.7 (L) 3.5 - 10.5 K/L [facility] RBC 2.44 (L) 4.63 - 6.08 M/L [facility] Hemoglobin 7.2 (L) 13.7 - 17.5 GM/DL [facility] Hematocrit 23.4 (L) 40.1 - 51.0 % [facility] MCV 95.9 (H) 79.0 - 92.2 fL [facility] MCH 29.5 25.7 - 32.2 pg [facility] MCHC 30.8 (L) 32.3 - 36.5 GM/DL [facility] RDW 20.5 (H) 11.6 - 14.4 % [facility] Platelets 68 (L) 150 - 450 K/CU MM [facility] MPV 10.2 9.4 - 12.4 fL [facility] nRBC 0 0 - 0 /100 WBC [facility] % Neutros 40 % [facility] % Lymphs 35 % [facility] % Monos 18 % [facility] % Eos 7 % [facility] % Baso 0 % [facility] # Neutros 1.05 (L) 1.78 - 5.38 K/L [facility] # Lymphs 0.93 (L) 1.32 - 3.57 K/L [facility] # Monos 0.47 0.30 - 0.82 K/L [facility] # Eos 0.18 0.04 - 0.54 K/L [facility] # Baso 0.01 0.01 - 0.08 K/L [facility] Immature Granulocytes-Relative 0 0 - 1 % C [facility] Specimen Blood Performing Organization Address City/State/Zipcode Phone Number [facility] [phone] [place] [address] CENTER Magnesium (08/18/2019 4:28 AM HAM SMOKER)Only the most recent of17 resultswithin the time period is included. Magnesium 1.6 1.6 - 2.6 mg/dL [facility] Specimen Blood Narrative Performed At Automotive Repair Technician ID - BS [facility] Performing Organization Address City/[facility]/Zipcode Phone Number [facility] [phone] [place] [address] [place] Basic Metabolic Panel (08/18/2019 4:28 AM HAM SMOKER)Only the most recent of19 results within the time period is included. Sodium 138 136 - 145 meq/L [facility] Potassium 3.9 3.5 - 5.1 meq/L [facility] Chloride 112 (H) 98 - 107 meq/L [facility] CO2 20 (L) 22 - 29 meq/L [facility] BUN 7 7 - 21 mg/dL [facility] Creatinine 0.58 0.57 - 1.25 mg/dL [facility] Glucose 100 70 - 105 mg/dL [facility] Calcium 7.5 (L) 8.4 - 10.2 mg/dL [facility] EGFR 136Comment: ESTIMATED GFR IS mL/min/1.73 sq m [facility] NOT ACCURATE CREATININE [facility] CLEARANCE IN PREDICTING GLOMERULAR FILTRATION RATE. ESTIMATED GFR IS NOT APPLICABLE FOR DIALYSIS PATIENTS. Specimen Blood Narrative Performed At Automotive Repair Technician ID - BS [facility] Performing Organization Address City/[facility]/Zipcode Phone Number [place] [phone] [place] [address] [place] myocardial perfusion PET (rest and stress) (08/16/2019 9:26 AM HAM SMOKER) Specimen Narrative Performed At FINAL REPORT [employer] PROCEDURE: MYOCARDIAL PERFUSION PET IMAG ING (Rest/Stress) CPT CODE: 92324 INDICATION: Define extent/severity of kn own CAD, risk stratification CARDIOVASCULAR PROFILE: CAD History: Known CAD Symptoms: Dyspnea Risk Factors: Age, sex, hypertension BMI: 21.5 Medications: Aspirin, atorvastatin STRESS PROTOCOL: Pharmacologic stress was achieved with a 10-second intravenous infusion of regadenoson 0.4 mg. The radi opharmaceutical was administered 30 seconds after the start of the regadenoson infusion. IMAGING PROTOCOL: Limited low-dose CT imaging was performe d for attenuation correction. 40.0 mCi of Rb-82 chloride was injected intravenously at rest, and gated PET images were obtained. Then, 40 .0 mCi of Rb-82 chloride was injected intravenously at peak stress, a nd gated PET images were obtained. Image quality is good. REST FINDINGS: HR: 68/min BP: 123/40 mmHg Prelim. EKG: Normal sinus rhythm, first- degree AV block, PVCs, PACs. Perfusion: There is a mild severity perf usion defect of the apical inferior and apical segments. Wall Motion: Normal (LVEF 73%). LV Volume: Normal. RV Volume: Normal. STRESS FINDINGS: HR: 80/min (56% of MPHR) BP: 109/26 mmHg Prelim. EKG: Less than [address] depressions inferolaterally, PACs, PVCs. Symptoms: None (treatment not required). Perfusion: There is a marked severity pe rfusion defect of the apical inferior, apical lateral, and apical seg ments. Wall Motion: Not significantly changed f rom rest (LVEF 69%). LV Volume: Not significantly changed fro m rest. IMPRESSION: 1. Abnormal study. 2. Abnormal myocardial perfusion. There is a medium size, marked severity, mostly reversible perfusion ab normality in the apical LV. 3. Normal resting LVEF, which does not d eteriorate with pharmacologic stress. 4. Normal extracardiac tracer distributi on. 5. There is no prior study for compariso n. Signed: Tiffanie Mcdaniels MD Report Verified Date/Time:08/16/2019 13:09:56 Reading Location: [address] Med Reading Room Procedure Note Interface, External Ris In - 08/16/2019 1:12 PM HAM SMOKER FINAL REPORT PROCEDURE: MYOCARDIAL PERFUSION PET IMAG ING (Rest/Stress) CPT CODE: 33202 INDICATION: Define extent/severity of kn own CAD, risk stratification CARDIOVASCULAR PROFILE: CAD History: Known CAD Symptoms: Dyspnea Risk Factors: Age, sex, hypertension BMI: 21.5 Medications: Aspirin, atorvastatin STRESS PROTOCOL: Pharmacologic stress was achieved with a 10-second intravenous infusion of regadenoson 0.4 mg. The radi opharmaceutical was administered 30 seconds after the start of the regadenoson infusion. IMAGING PROTOCOL: Limited low-dose CT imaging was performe d for attenuation correction. 40.0 mCi of Rb-82 chloride was injected intravenously at rest, and gated PET images were obtained. Then, 40 .0 mCi of Rb-82 chloride was injected intravenously at peak stress, a nd gated PET images were obtained. Image quality is good. REST FINDINGS: HR: 68/min BP: 123/40 mmHg Prelim. EKG: Normal sinus rhythm, first- degree AV block, PVCs, PACs. Perfusion: There is a mild severity perf usion defect of the apical inferior and apical segments. Wall Motion: Normal (LVEF 73%). LV Volume: Normal. RV Volume: Normal. STRESS FINDINGS: HR: 80/min (56% of MPHR) BP: 109/26 mmHg Prelim. EKG: Less than [address] depressions inferolaterally, PACs, PVCs. Symptoms: None (treatment not required). Perfusion: There is a marked severity pe rfusion defect of the apical inferior, apical lateral, and apical seg ments. Wall Motion: Not significantly changed f rom rest (LVEF 69%). LV Volume: Not significantly changed fro m rest. IMPRESSION: 1. Abnormal study. 2. Abnormal myocardial perfusion. There is a medium size, marked severity, mostly reversible perfusion ab normality in the apical LV. 3. Normal resting LVEF, which does not d eteriorate with pharmacologic stress. 4. Normal extracardiac tracer distributi on. 5. There is no prior study for compariso n. Signed: Tiffanie Mcdaniels MD Report Verified Date/Time: 08/16/2019 1 3:09:56 Reading Location: [address] P[address] Med Reading Room Performing Organization Address City/State/Zipcode Phone Number GE RIS Treadmill tolerance(Non-Nuclear Treadmill) (08/16/2019 9:06 AM HAM SMOKER) Specimen Narrative Performed At Protocol Name Regadenoson GE MUSE Time In Exercise Phase 00:01:00 Max. Systolic BP 109 mmHg Max Diastolic BP 26 mmHg Max Heart Rate 80 BPM Max Predicted Heart Rate 142 BPM Reason For Termination Predetermined end point Reason for Test Abnormal cardiac biomark ers,Ischemia Evaluation Target HR Formula (220 - Age)*100% Arrhythmias ventricular premature beats atrial premature beats Resting ECG Normal sinus rhythm 1st Degree AV block,PAC's,PVC Left Atrial Abnormality ST Changes Inferolateral ST DepressionUp Sloping <1mm Overall Impression Indeterminate due to pharmacological stress Chest Pain none HR Response To Exercise BP Response To Exercise asa,atorvastatin Confirmed by fellow Matthew Perry ([id number]) o n 08/16/2019 9:51:46 AM Confirmed by MD PALOMO JORGE ([id number]) on 09/14/2019 11: 46:12 AM Procedure Note Interface, External Ris In - 09/14/2019 11:46 AM HAM SMOKER Protocol Name Regadenoson Time In Exercise Phase 00:01:00 Max. Systolic BP 109 mmHg Max Diastolic BP 26 mmHg Max Heart Rate 80 BPM Max Predicted Heart Rate 142 BPM Reason For Termination Predetermined end point Reason for Test Abnormal cardiac biomark ers,Ischemia Evaluation Target HR Formula (220 - Age)*100% Arrhythmias ventricular premature beats atrial premature beats Resting ECG Normal sinus rhythm 1st Degree AV block,PAC's,PVC Left Atrial Abnormality ST Changes Inferolateral ST Depression Up Sloping <1mm Overall Impression Indeterminate due to pharmacological stress Chest Pain none HR Response To Exercise BP Response To Exercise asa,atorvastatin Confirmed by fellow Matthew Perry ([id number]) o n 08/16/2019 9:51:46 AM Confirmed by MD PALOMO JORGE ([id number]) on 09/14/2019 11:46:12 AM Performing Organization Address City/State/Zipcode Phone Number GE MUSE ECG 12 lead (08/16/2019 8:55 AM HAM SMOKER)Only the most recent of6 resultswithin the time period is included. Specimen Narrative Performed At Ventricular Rate 69 BPM GE MUSE Atrial Rate 69 BPM P-R Interval 230 ms QRS Duration 98 ms Q-T Interval 422 ms QTC Calculation(Bazett) 452 ms P Redmond 77 degrees R Redmond 66 degrees T Redmond 72 degrees Sinus rhythm with 1st degree A-V block Otherwise normal ECG 06 Aug 2019 QT has shortened Confirmed by MD HESTER YOCHAI ([id number]) on 08/16/2019 1:51:05 PM Procedure Note Interface, External Ris In - 08/16/2019 1:51 PM HAM SMOKER Ventricular Rate 69 BPM Atrial Rate 69 BPM P-R Interval 230 ms QRS Duration 98 ms Q-T Interval 422 ms QTC Calculation(Bazett) 452 ms P Redmond 77 degrees R Redmond 66 degrees T Redmond 72 degrees Sinus rhythm with 1st degree A-V block Otherwise normal ECG 06 Aug 2019 QT has shortened Confirmed by MD HESTER YOCHAI ([id number]) on 08/16/2019 1:51:05 PM Performing Organization Address City/[facility] Phone Number Borqs Troponin I (08/16/2019 4:23 AM HAM SMOKER)Only the most recent of10 resultswithin the time period is included. Troponin I 0.07 (H) 0.00 - 0.03 ng/mL [facility] Specimen Blood Narrative Performed At Troponin I (TnI) levels must be interpreted [facility] in the context of the presenting symptoms and the clinical findings. Elevated TnI levels indicate myocardial damage, but are not specific for ischemic heart disease. Elevated TnI levels are seen in patients with other cardiac conditions (including myocarditis and congestive heart failure), and slight TnI elevations occur in patients with other conditions, including sepsis, renal failure, acidosis, acute neurological disease, and persistent tachyarrhythmia. Automotive Repair Technician ID - [place] Performing Organization Address City/[facility]/Zipcode Phone Number [place] [phone] [place] [address] CENTER TRANSFUSION SERVICE REPORT - SCAN (08/15/2019 6:00 PM HAM SMOKER)Only the most recent of8 resultswithin the time period is included. Narrative Performed At This result has an attachment that is no t available. MR abdomen without & with IV contrast (08/14/2019 5:00 PM HAM SMOKER)Only the most recent of2 resultswithin the time period is included. Specimen Narrative Performed At FINAL REPORT Power[employer] RIS MRI of the abdomen dated August 14 0 Comparison: February 13, 2019 Comment: Multiplanar T1 and T2-weighted images of the abdomen, postcontrast axial and coronal T1-weight ed images of the abdomen were obtained. The study is somewhat limited secondary to motion artifact. Liver is cirrhotic in appearance with ir regular margins. No enhancing mass is seen in the liver. Spleen is enl arged measuring approximately 14.8 x 5.8 x 13.2 cm. The splenic, super ior mesenteric, portal, and hepatic veins are patent. Main portal ve in is small in caliber measuring approximately 7 mm in diameter . Enlarged collateral veins are seen in the splenic hilum and left l ateroconal fascia. There is splenorenal shunt. Gallbladder is contracted. Multiple smal l gallstones are seen. No biliary dilatation is noted. Pancreas and adrenals are unremarkable. Both kidneys are normal in size and functioning. Trace amount of free fluid is seen in th e abdomen. There is trace right pleural effusion an d small left pleural effusion with bibasilar subsegmental atelectasis. IMPRESSION: 1. 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 2. No suspicious hepatic mass. 3. Trace ascites and bilateral pleural e ffusion with bibasilar subsegmental atelectasis. 4. Cholelithiasis without biliary dilata tion. Signed: Kathe Melvin MD Report Verified Date/Time:08/15/2019 16:14:05 Reading Location: [facility] C013Y CT Body R [facility] Room Procedure Note Interface, External Ris In - 08/15/2019 4:16 PM HAM SMOKER FINAL REPORT MRI of the abdomen dated August 14 0 Comparison: February 13, 2019 Comment: Multiplanar T1 and T2-weighted images of the abdomen, postcontrast axial and coronal T1-weight ed images of the abdomen were obtained. The study is somewhat limited secondary to motion artifact. Liver is cirrhotic in appearance with ir regular margins. No enhancing mass is seen in the liver. Spleen is enl arged measuring approximately 14.8 x 5.8 x 13.2 cm. The splenic, super ior mesenteric, portal, and hepatic veins are patent. Main portal ve in is small in caliber measuring approximately 7 mm in diameter . Enlarged collateral veins are seen in the splenic hilum and left l ateroconal fascia. There is splenorenal shunt. Gallbladder is contracted. Multiple smal l gallstones are seen. No biliary dilatation is noted. Pancreas and adrenals are unremarkable. Both kidneys are normal in size and functioning. Trace amount of free fluid is seen in th e abdomen. There is trace right pleural effusion an d small left pleural effusion with bibasilar subsegmental atelectasis. IMPRESSION: 1. 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 2. No suspicious hepatic mass. 3. Trace ascites and bilateral pleural e ffusion with bibasilar subsegmental atelectasis. 4. Cholelithiasis without biliary dilata tion. Signed: Kathe Melvin MD Report Verified Date/Time: 08/15/2019 1 6:14:05 Reading Location: [facility] B1 C013Y CT Body R eading Room Performing Organization Address City/[facility]/Zipcode Phone Number GE RIS Type and screen, automated (08/14/2019 6:11 AM HAM SMOKER)Only the most recent of4 resultswithin the time period is included. ABO/RH AUTOMATED (BEAKER) O POSITIVE [facility] Ab Scrn NEGATIVE [facility] Specimen Blood Performing Organization Address City/[facility]/Zipcode Phone Number [facility] [address] [place] [address] PT/aPTT (08/13/2019 4:22 AM HAM SMOKER)Only the most recent of10 resultswithin the time period is included. Protime 18.4 (H) 11.9 - 14.2 seconds [facility] INR 1.6 <=5.[address] [facility] PTT 42.8 (H) 22.5 - 36.0 seconds [facility] Specimen Blood Narrative Performed At Effective 12/22/2018: PT Reference Range [facility] Change New: 11.9-14.2Previous: 11.7-14.7 RECOMMENDED COUMADIN/WARFARIN INR THERAPY RANGES STANDARD DOSE: 2.0-3.0Includes: PROPHYLAXIS for venous thrombosis, systemic embolization; TREATMENT for venous thrombosis and/or pulmonary embolus. HIGH RISK: Target INR is 2.5-3.5 for patients wiht mechanical heart valves. Performing Organization Address City/[facility]/Zipcode Phone Number [address] [address] CENTER Phosphorus (08/13/2019 4:22 AM HAM SMOKER)Only the most recent of9 resultswithin the time period is included. Phosphorus 3.1 2.3 - 4.7 mg/dL [facility] Specimen Blood Narrative Performed At Automotive Repair Technician ID - LETITIA Darden [facility] Performing Organization Address [facility] Phone Number [address] [address] CENTER Prepare Leuko-Red RBC (08/12/2019 11:54 PM HAM SMOKER)Only the most recent of5 results within the time period is included. CROSSMATCH COMPATIBLE SAFETRACE TX Unit ABO O Neg SAFETRACE TX UNIT NUMBER [id number] SAFETRACE TX Status TX_TIMEINCHART SAFETRACE TX Blood Bank Product RED BLOOD CELLS SAFETRACE TX PRODUCT CODE [id number] SAFETRACE TX Specimen Other Performing Organization Address [facility] Phone Number SAFETRACE TX Ammonia (08/12/2019 6:29 AM HAM SMOKER)Only the most recent of9 resultswithin the time period is included. Ammonia 40 18 - 72 mol/L [facility] Specimen Blood Narrative Performed At Automotive Repair Technician ID - WILLOW Estevez [facility] Performing Organization Address [facility] Phone Number [address] [address] CENTER Mitochondrial Ab Titer (08/12/2019 4:23 AM HAM SMOKER) Mitochondrial Ab Titer TNP <1:20 [facility] Comment: INCORPORATED Test Not Performed. Screening test Negative or N ot Detected. Titer not performed. Specimen Blood Narrative Performed At Performing Lab [facility] [address] [address] [place] [address] Clarence Mills MD, PhD, FINA Performing Organization Address [facility] Phone Number [facility] [place] [address] INCORPORATED [address] [facility] Mitochondrial Ab Screen (08/12/2019 4:23 AM HAM SMOKER) Anti-Mitochond Abs NEGATIVE NEGATIVE [facility] Comment: INCORPORATED This test was developed and its analytical perfo rmance characteristics have been determined by [facility]. It has not been cleared or approved by FDA. This assay has been validated pursuant to the CLIA regulations and is used for clinical purposes. Specimen Blood Narrative Performed At Performing Lab [facility] EZ [facility] [employer] [address] [address] [place] [address] Clarence Mills MD, PhD, FINA Performing Organization Address [facility] Phone Number [facility] [place] [address] INCORPORATED [id number] [facility] Anti-Mitochondrial Ab, reflex to titer (08/12/2019 4:23 AM HAM SMOKER) Scan Result [facility] Specimen Blood Performing Organization Address [facility] Phone Number [facility], [place] [address] INCORPORATED [address] [facility] Hepatitis C antibody (08/12/2019 4:23 AM HAM SMOKER)Only the most recent of2 results within the time period is included. Hepatitis C Ab Nonreactive Nonreactive [facility] Specimen Blood Narrative Performed At Automotive Repair Technician ID - ROSIANG [facility] Performing Organization Address City/[facility]/Zipcode Phone Number [facility] MED[facility] [address] [place] [address] CENTER [id number] (08/12/2019 4:23 AM HAM SMOKER) A-1 Antitrypsin 164.00 90.00 - 200.00 mg/dL [facility] Specimen Blood Narrative Performed At Automotive Repair Technician ID - DB [facility] Performing Organization Address City/[facility]/Zipcode Phone Number [facility] [address] [place] [address] CENTER ALISSA Titer & Pattern (08/12/2019 4:23 AM HAM SMOKER) ALISSA Titer 1:[address] [facility] ALISSA Pattern Homogeneous [facility] Specimen Blood Performing Organization Address City/[facility]/Zipcode Phone Number [facility] [address] [place] [address] [place] Ceruloplasmin (08/12/2019 4:23 AM HAM SMOKER) Ceruloplasmin 23 18 - 36 mg/dL [facility] Comment: Adults:Males: 18-36 mg/dL Females: 18-53 m g/dL Pediatrics:Males (mg/dL) Females (mg/dL) 0-30 Days 8-25 3-28 31 Days-11 Month 15-48 15-43 1-3 [id number] 29-54 4-6 [id number] 26-54 7-9 [id number] 23-48 10-12 [id number] 21-48 13-15 [id number] 21-46 16-18 [id number] 22-50 The pediatric ranges are derived from the jude wing criteria: Alan ADAMS, Gaby LITTLEJOHN, Tasia Escoto et al Pediatric re ference ranges for Kkpm-1-Fbtnyrzyoeaqj and ceruloplasm in. Clin. Chem 1997; 43:S1999 Pediatric Reference Ranges, 2nd., [place] Alanet al. editors. [employer], [place], [place] 1997. Specimen Blood Narrative Performed At Performing Lab [facility] *SPL [facility], [address] [place] [address] Tigist Ramirez MD, PhD Performing Organization Address City/[facility]/Zipcode Phone Number [facility], [place], [place] [address] INCORPORATED [address] [facility] Fibrinogen (08/12/2019 4:23 AM HAM SMOKER)Only the most recent of5 resultswithin the time period is included. Fibrinogen 268 225 - 434 mg/dl [facility] Specimen Blood Performing Organization Address City/[facility]/Zipcode Phone Number [address] [phone] CENTER Anti-Nuclear Antibody (ALISSA) (08/12/2019 4:23 AM HAM SMOKER) ALISSA Positive (A) Negative [facility] Specimen Blood Narrative Performed At Test performed by IFA method. [facility] Performing Organization Address [facility] Phone Number [address] [phone] CENTER Immunoglobulin G (IgG) (08/12/2019 4:23 AM HAM SMOKER)Only the most recent of2 results within the time period is included. IgG 769 540-1,822 mg/dL [facility] Specimen Blood Narrative Performed At Automotive Repair Technician ID - ROSIANG [facility] Performing Organization Address City/[facility] Phone Number [address] [phone] CENTER Actin (Smooth Muscle) Antibody, IgG (08/12/2019 4:22 AM HAM SMOKER) Anti-Smooth Muscle Ab <20 See Note: U [facility] Comment: INCORPORATED Reference Range: <20 NEGATIVE > OR = 20 POSITIVE Antibodies recognizing actin are the main compon ent of smooth muscle antibodies associated with autoimmune liver disease. Actin antibodies are found in approximately 75% of patients with autoimmune hepatitis (AIH) type 1, approximately 65% of patients with autoimmune cholangitis, approximately 30% of patients with primary bilia ry cirrhosis, and approximately 2% of healthy peopl e. High values are closely correlated with AIH type 1. Specimen Blood Narrative Performed At Performing Lab [facility] [address] [address] [facility] [place] [address] Clarence Mills MD, PhD, FINA Performing Organization Address City/[facility]/Zipcode Phone Number [facility], [place] [address] [facility] [address] [facility] Hepatitis C PCR, Quantitative (08/12/2019 4:22 AM HAM SMOKER) HCV PCR, Quantitative HCV RNA not detected HCV RNA not detected [facility] Specimen Blood Narrative Performed At This test uses a Real-Time Polymerase Chain [facility] Reaction (RT-PCR) methodology and was performed using ROWENA Ampliprep/ROWENA TaqMan HCV test kit version 2.0 ([employer]). Reportable range for this assay is 15 - 100,000,000 IU per mL (1.18 - 8.00 Log IU/mL). Performing Organization Address [facility] Phone Number [address] [address] CENTER Transfuse Leuko-Red RBC (08/11/2019 10:23 PM HAM SMOKER)Only the most recent of11 resultswithin the time period is included.Hemoglobin and hematocrit (08/11/2019 7:56 PM HAM SMOKER)Only the most recent of11 resultswithin the time period is included. Hemoglobin 6.8 (L) 13.7 - 17.5 GM/DL [facility] Hematocrit 21.3 (L) 40.1 - 51.0 % [facility] Specimen Blood Narrative Performed At Automotive Repair Technician ID - [id number] [facility] CENTER Performing Organization Address City/[facility]/Zipcode Phone Number [place] [phone] [place] [address] CENTER Vitamin B12 and Folate (08/11/2019 4:00 AM HAM SMOKER) Vitamin B12 1,086 (H) 213 - 816 pg/mL [facility] Folate 12.3 >=7.0 ng/mL [facility] Specimen Blood Narrative Performed At Automotive Repair Technician ID - WILLOW W [facility] Performing Organization Address City/[facility] Phone Number [address] [address] CENTER Iron, TIBC, % sat. (without ferritin) (08/11/2019 4:00 AM HAM SMOKER)Only the most recent of2 resultswithin the time period is included. Iron 65.0 40.0 - 160.0 ug/dL [facility] TIBC 185 (L) 250 - 450 ug/dL [facility] Iron % Saturation 35 20 - 55 % [facility] Specimen Blood Narrative Performed At Automotive Repair Technician ID - WILLOW W [facility] Performing Organization Address [facility] Phone Number [address] [address] CENTER Reticulocyte count (08/11/2019 4:00 AM HAM SMOKER) % Retic 4.7 (H) 0.5 - 1.8 % [facility] Specimen Blood Narrative Performed At Automotive Repair Technician ID - [id number] [facility] Performing Organization Address [facility] Phone Number [address] [address] CENTER Transferrin (08/11/2019 4:00 AM HAM SMOKER) Transferrin 148 (L) 174 - 382 mg/dL [facility] Specimen Blood Narrative Performed At Automotive Repair Technician ID - WILLOW W [facility] Performing Organization Address [facility] Phone Number [address] [address] CENTER Ferritin (08/11/2019 4:00 AM HAM SMOKER)Only the most recent of2 resultswithin the time period is included. Ferritin 44 5 - 275 ng/mL [facility] Specimen Blood Narrative Performed At Automotive Repair Technician ID - WILLOW W [facility] Performing Organization Address City/State/Zipcode Phone Number [facility] [address] [place] [address] CENTER Potassium (08/10/2019 3:55 PM HAM SMOKER) Potassium 3.7 3.5 - 5.1 meq/L [facility] Specimen Blood Narrative Performed At Automotive Repair Technician ID - HIREN Snell [facility] Performing Organization Address City/[facility] Phone Number [facility] [address] [place] [address] CENTER XR chest 1 view portable/bedside (08/10/2019 3:56 AM HAM SMOKER)Only the most recent of6 resultswithin the time period is included. Specimen Narrative Performed At FINAL REPORT GE RIS RAD, CHEST, 1 VIEW, NON DEPT INDICATION: intubated COMPARISON: Prior day's exam FINDINGS: Portable frontal view of the c hest. IMPRESSION: Support Lines: Stable. Lungs and pleura: No new airspace consol idation. No pleural effusion. No pneumothorax. Heart and mediastinum: Stable contours. Stable surgical changes. Additional findings: None. Signed: Kathe Bautista MD Report Verified Date/Time:08/10/2019 05:09:12 Procedure Note Interface, External Ris In - 08/10/2019 5:11 AM HAM SMOKER FINAL REPORT RAD, CHEST, 1 VIEW, NON DEPT INDICATION: intubated COMPARISON: Prior day's exam FINDINGS: Portable frontal view of the c hest. IMPRESSION: Support Lines: Stable. Lungs and pleura: No new airspace consol idation. No pleural effusion. No pneumothorax. Heart and mediastinum: Stable contours. Stable surgical changes. Additional findings: None. Signed: Kathe Bautista MD Report Verified Date/Time: 08/10/2019 0 5:09:12 Performing Organization Address City/State/Zipcode Phone Number GE RIS Manual Differential (08/10/2019 3:50 AM HAM SMOKER)Only the most recent of3 results within the time period is included. % Neutros 75 % [facility] % Lymphs 14 % [facility] % Monos 3 % [facility] % Eos 5 % [facility] % Baso 1 % [facility] % Bands 2 0 - 10 % [facility] # Neutros 4.35 1.78 - 5.38 K/ul [facility] # Lymphs 0.81 (L) 1.32 - 3.57 K/ul [facility] # Monos 0.17 (L) 0.30 - 0.82 K/uL [facility] # Eos 0.29 0.04 - 0.54 K/uL [facility] # Baso 0.06 0.01 - 0.08 K/uL [facility] # Bands 0.12 0.00 - 0.80 K/uL [facility] Total Counted [address] [facility] RBC Morphology Normal [facility] WBC Morphology Normal [facility] Platelet Morphology Normal [facility] [facility] Polychromasia 1+ few [facility] Artifact Present [facility] Platelet Conc Decreased [facility] Specimen Blood Narrative Performed At Automotive Repair Technician ID - Aruna Overholt [facility] User comments: Slide comments: Performing Organization Address City/State/Zipcode Phone Number [facility] [address] [place] [address] CENTER Alpha fetoprotein (AFP), tumor marker (08/10/2019 3:50 AM HAM SMOKER)Only the most recent of3 resultswithin the time period is included. Alpha-Fetoprotein 1,147.2 (H) <10.0 ng/mL [facility] Specimen Blood Narrative Performed At Automotive Repair Technician ID - DB [facility] Performing Organization Address City/[facility] Phone Number [address] [address] [place] Hepatitis B core antibody, total (08/10/2019 3:50 AM HAM SMOKER) Hep B Core Total Ab Nonreactive Nonreactive [facility] Specimen Blood Narrative Performed At Automotive Repair Technician ID - DB [facility] Performing Organization Address [facility] Phone Number [address] [address] CENTER Hepatitis B surface antibody (08/10/2019 3:50 AM HAM SMOKER) Hep B S Ab <8.0 <8.0 mIU/mL [facility] Specimen Blood Narrative Performed At Automotive Repair Technician ID - DB [facility] Performing Organization Address [facility] Phone Number [address] [address] [place] Blood gas, arterial (08/10/2019 3:46 AM HAM SMOKER)Only the most recent of5 results within the time period is included. pH, Arterial 7.42 7.35 - 7.[address] [facility] pCO2, Arterial 34 (L) 35 - [address] [facility] pO2, Arterial 41 (L) 80 - [address] [facility] O2 Sat, Arterial 78.2 (L) 96.0 - 97.0 % [facility] HCO3, Arterial 21 21 - 29 mmol/L [facility] Base Excess, Arterial -2.7 (L) -2.0 - 3.0 mmol/L [facility] Patient Temperature 37.0 C [facility] FIO2 30.0 % [facility] Specimen Blood, Arterial Performing Organization Address [facility] Hospital[facility] Phone Number [address] [address] [place] Sputum Culture + Gram Stain (08/08/2019 10:56 AM HAM SMOKER) Result <1+ Normal respiratory whitney [facility] Gram Stain Result 2+ WBCs [facility] Gram Stain Result 10-25/LPF epithelial cells [facility] Gram Stain Result No organisms seen [facility] Specimen Sputum Performing Organization Address [facility] Phone Number [address] [address] [place] TSH/Free T4 If Indicated (08/08/2019 10:56 AM HAM SMOKER) TSH 0.38 0.35 - 4.94 uIU/mL [facility] Specimen Blood Narrative Performed At Automotive Repair Technician WILIAM Lopez LETITIA M [facility] Performing Organization Address [facility] Phone Number [address] [address] [place] CBC (Hemogram only) (08/07/2019 4:10 PM HAM SMOKER)Only the most recent of6 results within the time period is included. WBC 7.5 3.5 - 10.5 K/L [facility] RBC 3.13 (L) 4.63 - 6.08 M/L [facility] Hemoglobin 9.0 (L) 13.7 - 17.5 GM/DL [facility] Hematocrit 27.4 (L) 40.1 - 51.0 % [facility] MCV 87.5 79.0 - 92.[address] [facility] MCH 28.8 25.7 - 32.[address] [facility] MCHC 32.8 32.3 - 36.5 GM/DL [facility] RDW 20.8 (H) 11.6 - 14.4 % [facility] Platelets 81 (L) 150 - 450 K/CU MM [facility] MPV 9.4 9.4 - 12.[address] [facility] nRBC 0 0 - 0 /[address] [facility] Specimen Blood Performing Organization Address City/[facility] Phone Number [facility] [address] [place] [address] CENTER Gastrin (08/07/2019 10:29 AM HAM SMOKER) Gastrin, Serum <15 < OR = 100 pg/mL [facility] Comment: INCORPORATED NOTE: Reference range applies to fasting specime n only. For additional information, please refer to http://education.Skyepack/faq/WMA541 (This link is being provided for informational/e ducational purposes only.) Specimen Blood Narrative Performed At Performing Lab [facility] [address] [address] [place] [address] Clarence Mills MD, PhD, FINA Performing Organization Address City/[facility] Phone Number [facility] [place] [address] [facility] [address] [facility] CT brain without IV contrast (08/07/2019 8:33 AM HAM SMOKER) Specimen Narrative Performed At FINAL REPORT INcubes CT, BRAIN, WITHOUT CONTRAST CLINICAL INDICATION:altered mental s tatus, hyperammonia COMPARISON: None TECHNIQUE:Noncontrast axial CT imagi ng of the brain and skull. DOSE REDUCTION: Dose modulation, iterati ve reconstruction, and/or weight-based adjustment of the mA/kV was utilized to reduce the radiation dose to as low as reasonably a chievable. FINDINGS: No intracranial hemorrhage, midline shif t or mass effect. Midline structures are normally develope d. Mild chronic microvascular ischemic changes of the periventricular and subcortical white matter are present. 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 No hydrocephalus. Atherosclerotic calcification of the int racranial internal carotid and vertebral arteries. Orbits are within normal limits. Prior b ilateral lens surgery Opacification of the right maxillary sin us. 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 Correlation for sinusitis may be obtained If there is persistent clinical concern for intracranial pathology, MR examination is recommended for furthe r characterization. Signed: Priti Araujo MD Report Verified Date/Time:08/07/2019 08:36:10 Reading Location: [address] Procedure Note Interface, External Ris In - 08/07/2019 8:38 AM HAM SMOKER FINAL REPORT CT, BRAIN, WITHOUT CONTRAST CLINICAL INDICATION: altered mental sta tus, hyperammonia COMPARISON: None TECHNIQUE: Noncontrast axial CT imaging of the brain and skull. DOSE REDUCTION: Dose modulation, iterati ve reconstruction, and/or weight-based adjustment of the mA/kV was utilized to reduce the radiation dose to as low as reasonably a chievable. FINDINGS: No intracranial hemorrhage, midline shif t or mass effect. Midline structures are normally develope d. Mild chronic microvascular ischemic changes of the periventricular and subcortical white matter are present. 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 No hydrocephalus. Atherosclerotic calcification of the int racranial internal carotid and vertebral arteries. Orbits are within normal limits. Prior b ilateral lens surgery Opacification of the right maxillary sin us. 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 Correlation for sinusitis may be obtained If there is persistent clinical concern for intracranial pathology, MR examination is recommended for furthe r characterization. Signed: Priti Araujo MD Report Verified Date/Time: 08/07/2019 0 8:36:10 Reading Location: [facility] C013V Neuro Alejandra ding Room Performing Organization Address City/State/Zipcode Phone Number GE RIS Lactic acid, venous (08/07/2019 1:34 AM HAM SMOKER)Only the most recent of4 results within the time period is included. Lactate, Venous 2.0 0.5 - 2.2 mmol/L [facility] Specimen Blood Narrative Performed At Automotive Repair Technician ID - LETITIA Darden [facility] Performing Organization Address City/State/Zipcode Phone Number [facility] MED[facility] [address] [place] [address] CENTER ECHOCARDIOGRAM REPORT - SCAN (08/06/2019 9:22 PM HAM SMOKER) Narrative Performed At This result has an attachment that is no t available. REPORT OF PROCEDURE - ENDOSCOPY URL (08/06/2019 8:16 PM HAM SMOKER) Narrative Performed At This result has an attachment that is no t available. XR abdomen / KUB 1 view (08/06/2019 12:12 PM HAM SMOKER) Specimen Narrative Performed At FINAL REPORT GE RIS TECHNIQUE: Single View of the Abdomen. INDICATION: NG tube placement. COMPARISON: Chest radiograph from . FINDINGS/IMPRESSION: The gastric wall appears to be thickened . The tip of a NG tube overlies the gastric body. The proximal sidehole is not well visualized. However, consider advancemen t by approximately 5 cm. The bowel gas pattern appears nonobstructive . No acute bony abnormality. There appears to be a Urbina catheter over the bladder. Calcification of the aortoi liac vasculature. Signed: Monet Meyer MD Report Verified Date/Time:08/06/2019 12:30:26 Reading Location: [facility] B1 C013Y CT Body R eading Room Procedure Note Interface, External Ris In - 08/06/2019 12:33 PM HAM SMOKER FINAL REPORT TECHNIQUE: Single View of the Abdomen. INDICATION: NG tube placement. COMPARISON: Chest radiograph from . FINDINGS/IMPRESSION: The gastric wall appears to be thickened . The tip of a NG tube overlies the gastric body. The proximal sidehole is not well visualized. However, consider advancemen t by approximately 5 cm. The bowel gas pattern appears nonobstructive . No acute bony abnormality. There appears to be a Urbina catheter over the bladder. Calcification of the aortoi liac vasculature. Signed: Monet Meyer MD Report Verified Date/Time: 08/06/2019 1 2:30:26 Reading Location: [facility] B1 C013Y CT Body R eading Room Performing Organization Address City/State/Zipcode Phone Number INcubes 2D Echo W/Doppler(CW/PW/Color) (08/06/2019 11:06 AM HAM SMOKER) Ejection Fraction [facility] ECHO HEAR TLAB MKCKESSON CPACS Specimen Narrative Performed At Transthoracic Echocardiography Report (T TE) [facility] ECHO HEARTLAB [facility] CPACS Demographics Patient Juma Villeda of Study08/06/2019 ESTEVAN III Male Visit [id number] Room [id number] Number Date of 1Referring Cheikh Colon Physician Age 79 year(s)Case Work Aide Maye Elena [facility] Cutter Operator Opal Johnsonpreting Physician SMILEY Schuler Procedure Type of Study TTE procedure:2DECHO W DOPPLER(CW/PW/COLOR) (STAT) Indications:Eval EF Function. Clinical History Alcoholic cirrhosis w/ ascites, CA, DM, HTN HGB 7.2 HCT 22.5 % Contrast Medium: Definity. Amount - 2 ml Height: 72 inches Weight: 73.03 kg (161 lbs) BSA: 1.94 m^2 BMI: 21.84 kg/m^2 HR: 95 bpm BP: 150/42 mmHg Summary The left ventricle is chamber size (by vol index) is normal (male - LVED vol - 34-74ml/m2). Mild concentric LV hypertrophy. The following segment(s) appear severely hypokinetic: apex . The other segments contract normally. LVEF by Bolanos's method of disk assessment is normal (55-60%) . Mild aortic stenosis. AoV area at rest by continuity equation is in the range of 1.86 cm2. Unable to estimate peak systolic PA pressure; inadequate TR velocity signal. Previous Study In comparison with the prior exam on 02-12-19, LVEF is improved. Signature Findings Left Ventricle The left ventricle is chamber size (by vol index) is normal (male - LVED vol - 34-74ml/m2). Mi ld concentric LV hypertrophy. Th e following segment(s) appear severely hy pokinetic: apex . Th e other segments contract normally. LV EF by Bolanos's method of disk assessmen t is no rmal (55-60%) . Left AtriumLA size is moderately enlarged (42-48 ml/m2) . Right VentricleThe right ventricular chamber size and systolic fu nction are within normal limits. Right Atrium RA cavity size is normal . Aortic Valve Mild AoV cusp calcification. Mi ld aortic stenosis. Ao V area at rest by continuity equation is in the ra nge of 1.86 cm2. Mitral Valve Mild MV leaflet thickening. Mi ld-moderate mitral annular calcification . Tricuspid ValveUnable to estimate peak systolic PA pressure; in adequate TR velocity signal. Pulmonic Valve PV is not well visualized; function appears normal by Doppler visualized. AortaAortic root size (Sinus of Valsalva diameter) i s mi ldly dilated. 3.6 cm Proximal ascending aorta si ze mildly dilated . 3.7 cm PericardiumNo significant pericardial effusion is visualized. IVC/SVC/PA/PV/PleuralThe right upper pulmonary vein (RUPV) is normal . Th e estimated RA pressure by IVC dynamics 5-10mmHg . Chambers/Structures Left Atrium LA Volume: 87.98 ml LA Area: 24.82 cm^2 LA Vol. Index: 45 ml/m^2 Left Ventricle LVIDd: 4.06 cm LVIDs: 2.24 cm LV Septum Diastolic: 1.21 cm LV PW Diastolic: 1.21 cmLV FS: 44.8 % LVEDV Bolanos's:69.74 ml LVESV Bolanos's:28.49 mlLVEDVI: 36 ml/m^2 LVEF Bolanos's: 58.5 %LVESV I: 15 ml/m^2 LVOT Diameter: 1.9 cm Right Ventricle TAPSE: 2.51 cm Aorta Ao Root S of Rosio.: 3.64 cmAscending Aorta: 3.68 cm Doppler/Quantitative Measurements Mitral Valve MV Peak E-Wave: 1.31 m/sMV Peak A-Wave: 1.56 m/s P1/2t: 76.8 msecE/ A Ratio: 0.84 Peak Gradient: 6.89 mmHg Deceleration Time: 276.3 msec MV Area (PHT): 2.86 cm^2 MV Иван. Peak: Tissue Doppler E' Septal Velocity: 0.05 m/sE/E': 24.07 E' Lateral Velocity: 0.05 m/s Aortic Valve Peak Velocity: 2.09 m/s Mean Velocity: 1.49 m/s Peak Gradient: 17.49 mmHg Mean Gradient: 10.01 mmHg AV Area (continuity): 1.8 cm^2Area (2D): 1.7 c m^2 AV VTI: 43.14 cm AV DVI: 0.64 LVOT Peak Velocity: 1.18 m/s Peak Gradient: 5.57 mmHg Mean Velocity: 0.84 m/s Mean Gradient: 3.2 mmHg LVOT Diameter: 1.9 cm LVOT VTI: 27.46 cm LVOT Area: 2.84 cm^2LVOT SV:77.82 ml LVOT CO: 7.39 l/min LVOT CI: 3.81 l/min/m^2 Procedure Note Interface, External Ris In - 08/06/2019 4:03 PM HAM SMOKER Transthoracic Echocardiography Report (TTE) Demographics Patient Name JEAN LUCIO Date of Study 08/06/2019 ESTEVAN III Gende r Male Visit Number [id number] Race Room Number [id number] Number Date of 1940 Refer ring Cheikhcuauhtemoc castanon Age 79 year(s) Sonog rapher Maye Elena, [facility] Cutter Operator Cholo Elizabeth MD Procedure Type of Study TTE procedure:2DECHO W DOPPLE R(CW/PW/COLOR) (STAT) Indications:Eval EF Function. Clinical History Alcoholic cirrhosis w/ ascites, CA, DM, HTN HGB 7.2 HCT 22.5 % Contrast Medium: Definity. Amount - 2 ml Height: 72 inches Weight: 73.03 kg (161 lbs) BSA: 1.94 m^2 BMI: 21.84 kg/m^2 HR: 95 bpm BP: 150/42 mmHg Summary The left ventricle is chamber size (by vol index) is normal (male - LVED vol - 34-74ml/m2). Mild concentric LV h ypertrophy. The following segment(s) appear severely hypokinetic: apex . The other segments contract normally. LVEF by Bolanos's method of d isk assessment is normal (55-60%) . Mild aortic stenosis. AoV area at rest by continuity equation is in the range of 1.86 cm2. Unable to estimate peak systolic PA pre ssure; inadequate TR velocity signal. Previous Study In comparison with the prior exam on , LVEF is improved. Signature Findings Left Ventricle The left ventric le is chamber size (by vol index) is normal (male - LVED vol - 34-74ml/m2). Mild concentric LV hypertrophy. The following se gment(s) appear severely hypokinetic: ape x . The other segmen ts contract normally. LVEF by Bolanos' s method of disk assessment is normal (55-60%) . Left Atrium LA size is moder ately enlarged (42-48 ml/m2) . Right Ventricle The right ventri cular chamber size and systolic function are wit hin normal limits. Right Atrium RA cavity size i s normal . Aortic Valve Mild AoV cusp ca lcification. Mild aortic sten osis. AoV area at rest by continuity equation is in the range of 1.86 cm 2. Mitral Valve Mild MV leaflet thickening. Mild-moderate mi tral annular calcification. Tricuspid Valve Unable to estima te peak systolic PA pressure; inadequate TR ve locity signal. Pulmonic Valve PV is not well v isualized; function appears normal by Doppler visua lized. Aorta Aortic root size (Sinus of Valsalva diameter) is mildly dilated. 3.6 cm Proximal ascending aorta size mildly dila humberto . 3.7 cm Pericardium No significant p ericardial effusion is visualized. IVC/SVC/PA/PV/Pleural The right upper pulmonary vein (RUPV) is normal . The estimated RA pressure by IVC dynamics 5-10mmHg . Chambers/Structures Left Atrium LA Volume: 87.98 ml LA Area: 24.82 cm^2 LA Vol. Index: 45 ml/m^2 Left Ventricle LVIDd: 4.06 cm LVIDs: 2.24 cm LV Septum Diastolic: 1.21 cm LV PW Diastolic: 1.21 cm LV FS: 44.8 % LVEDV Bolanos's:69.74 ml LVESV Bolanos's:28.49 ml LVEDVI: 36 ml/m^2 LVEF Bolanos's: 58.5 % LVESVI: 15 ml/m^2 LVOT Diameter: 1.9 cm Right Ventricle TAPSE: 2.51 cm Aorta Ao Root S of Rosio.: 3.64 cm Ascending Aorta: 3.68 cm Doppler/Quantitative Measurements Mitral Valve MV Peak E-Wave: 1.31 m/s M V Peak A-Wave: 1.56 m/s P1/2t: 76.8 msec E /A Ratio: 0.84 P eak Gradient: 6.89 mmHg D eceleration Time: 276.3 msec MV Area (PHT): 2.86 cm^2 MV Иван. Peak: Tissue Doppler E' Septal Velocity: 0.05 m/s E /E': 24.07 E' Lateral Velocity: 0.05 m/s Aortic Valve Peak Velocity: 2.09 m/s Mean Velocity: 1.49 m/s Peak Gradient: 17.49 mmHg Mean Gradient: 10.01 mmHg AV Area (continuity): 1.8 cm^2 Area (2D): 1.7 cm^2 AV VTI: 43.14 cm AV DVI: 0.64 LVOT Peak Velocity: 1.18 m/s Pea k Gradient: 5.57 mmHg Mean Velocity: 0.84 m/s Gayle n Gradient: 3.2 mmHg LVOT Diameter: 1.9 cm LVO T VTI: 27.46 cm LVOT Area: 2.84 cm^2 LVO T SV:77.82 ml LVOT CO: 7.39 l/min LVO T CI: 3.81 l/min/m^2 Performing Organization Address City/[facility] Hospital[facility] Phone Number [facility] ECHO HEARTLAB [facility] CPACS Urea Nitrogen, random urine (08/06/2019 9:53 AM HAM SMOKER) Urea Nitrogen, Ur 756 mg/dL [facility] Specimen Urine Narrative Performed At Reference Range: No Normals [facility] Automotive Repair Technician ID - HIREN Snell Performing Organization Address [facility] Phone Number [address] [address] [place] Sodium, random urine (08/06/2019 9:53 AM HAM SMOKER) Sodium Urine <20 meq/L [facility] Specimen Urine Narrative Performed At Reference Range: No Normals [facility] Automotive Repair Technician ID - HIREN Snell Performing Organization Address [facility] Phone Number [address] [address] CENTER Potassium, random urine (08/06/2019 9:53 AM HAM SMOKER) Potassium Urine 65.2 meq/L [facility] Specimen Urine Narrative Performed At Reference Range: No Normals [facility] Automotive Repair Technician ID - HIREN Snell Performing Organization Address [facility]/Zipcode Phone Number [address] [address] [place] Creatinine, random urine (08/06/2019 9:53 AM HAM SMOKER) Creatinine, Ur 96.4 mg/dL [facility] Specimen Urine Narrative Performed At Reference Range: No Normals [facility] Automotive Repair Technician ID John Snell Performing Organization Address [facility] Phone Number [address] [address] [place] Chloride, random urine (08/06/2019 9:53 AM HAM SMOKER) ChlorideUr 22 meq/L [facility] Specimen Urine Narrative Performed At Reference Range: No Normals [facility] Automotive Repair Technician ID John Snell Performing Organization Address [facility] Phone Number [address] [address] [place] Urinalysis w/Microscopic + Reflex to Culture (08/06/2019 2:03 AM HAM SMOKER)Only the most recent of2 resultswithin the time period is included. Color, UA Yellow [facility] Clarity, UA Clear [facility] Specific [place], UA 1.023 1.001 - 1.035 [facility] pH, UA 5.5 5.0 - 8.0 [facility] Protein, UA 10 mg/dL (A) Negative [facility] Glucose, UA Negative Negative [facility] Ketones, UA Trace (A) Negative [facility] Bilirubin, UA Negative Negative [facility] Blood, UA Small (A) Negative [facility] Nitrite, UA Negative Negative [facility] Leukocytes, UA Moderate (A) Negative [facility] Urobilinogen, UA 2.0 (H) 0.2 - 1.0 mg/dL [facility] RBC, UA 15 /HPF [facility] WBC, UA 11 /HPF [facility] Bacteria, UA Rare [facility] Mucus Rare [facility] Hyaline Casts, UA 18 /LPF [facility] Specimen Source [facility] Specimen Urine - Urine, Sterile Collection Narrative Performed At Automotive Repair Technician ID - [auto] [facility] Automotive Repair Technician ID - rayne Performing Organization Address City/[facility]/Zipcode Phone Number [address] [address] [place] Urine culture (08/06/2019 2:03 AM HAM SMOKER) Result No growth [facility] Specimen Urine - Urine, Sterile Collection Performing Organization Address [facility] Phone Number [address] [address] [place] Blood Culture - Routine (Right Venipuncture) (08/05/2019 9:05 PM HAM SMOKER)Only the most recent of4 resultswithin the time period is included. Result No growth in 5 days [facility] Specimen Blood Performing Organization Address City/[facility]/Zipcode Phone Number [address] [address] [place] aPTT (08/05/2019 8:12 PM HAM SMOKER)Only the most recent of2 resultswithin the time period is included. PTT 39.2 (H) 22.5 - 36.0 seconds [facility] Specimen Blood Performing Organization Address City/[facility]/Zipcode Phone Number [facility] [address] [address] [place] Prothrombin time/INR (08/05/2019 8:12 PM HAM SMOKER)Only the most recent of6 results within the time period is included. Protime 25.9 (H) 11.9 - 14.2 seconds [facility] INR 2.4 <=5.[address] [facility] Specimen Blood Narrative Performed At Effective 12/22/2018: PT Reference Range [facility] Change New: 11.9-14.2Previous: 11.7-14.7 RECOMMENDED COUMADIN/WARFARIN INR THERAPY RANGES STANDARD DOSE: 2.0-3.0Includes: PROPHYLAXIS for venous thrombosis, systemic embolization; TREATMENT for venous thrombosis and/or pulmonary embolus. HIGH RISK: Target INR is 2.5-3.5 for patients wiht mechanical heart valves. Performing Organization Address City/State/Zipcode Phone Number [address] [address] [place] Comprehensive metabolic panel (08/05/2019 8:12 PM HAM SMOKER)Only the most recent of2 resultswithin the time period is included. Protein, Total 4.4 (L) 6.0 - 8.3 gm/dL [facility] Albumin 2.1 (L) 3.5 - 5.0 g/dL [facility] Alkaline Phosphatase 70 40 - 150 U/L [facility] Total Bilirubin 1.7 (H) 0.2 - 1.2 mg/dL [facility] Sodium 137 136 - 145 meq/L [facility] Potassium 5.5 (H) 3.5 - 5.1 meq/L [facility] Chloride 112 (H) 98 - 107 meq/L [facility] CO2 14 (L) 22 - 29 meq/L [facility] BUN 28 (H) 7 - 21 mg/dL [facility] Creatinine 1.39 (H) 0.57 - 1.25 mg/dL [facility] Glucose 176 (H) 70 - 105 mg/dL [facility] Calcium 7.3 (L) 8.4 - 10.2 mg/dL [facility]ALTH [facility] AST 83 (H) 5 - 34 U/L [facility] ALT 34 6 - 55 U/L [facility] EGFR 49Comment: ESTIMATED GFR mL/min/1.73 sq m [facility] IS NOT ACCURATE [facility] CREATININE CLEARANCE IN PREDICTING GLOMERULAR FILTRATION RATE. ESTIMATED GFR IS NOT APPLICABLE FOR DIALYSIS PATIENTS. Specimen Blood Narrative Performed At Automotive Repair Technician ID - [id number] [facility] Performing Organization Address City/State/Zipcode Phone Number [facility] [address] [place] [address] CENTER Thromboelastograph (TEG) (08/05/2019 8:11 PM HAM SMOKER) TEG Activated Clotting Time 4.8 4.0 - 7.0 minutes [facility] TEG Fibrinogen Activity 68.5 61.0 - 73.0 degrees [facility] TEG Platelet Aggregation 56.4 55.0 - 65.0 MM [facility] TEG Fibrinolysis 0.0 0.0 - 5.0 % [facility] TEG-H Activated Clotting Time 4.6 4.0 - 7.0 minutes [facility] TEG-H Fibrinogen Activity 68.3 61.0 - 73.0 degrees [facility] TEG-H Platelet Aggregation 57.4 55.0 - 65.0 MM [facility] TEG-H Fibrinolysis 0.5 0.0 - 5.0 % [facility] Specimen Blood Performing Organization Address City/[facility]/Zipcode Phone Number [facility] [address] [place] [address] [place] Hepatic function panel (02/22/2019 12:51 PM CDT)Only the most recent of4 results within the time period is included. Protein, Total 7.2 6.0 - 8.3 gm/dL [facility] Albumin 3.3 (L) 3.5 - 5.0 g/dL [facility] Total Bilirubin 2.0 (H) 0.2 - 1.2 mg/dL [facility] Bilirubin, Direct 1.1 (H) 0.1 - 0.5 mg/dL [facility] Alkaline Phosphatase 101 40 - 150 U/L [facility] AST 45 (H) 5 - 34 U/L [facility] ALT 21 6 - 55 U/L [facility] Specimen Blood Narrative Performed At Specimen slightly icteric [facility] Performing Organization Address City/[facility] Phone Number [facility] [address] [place] [address] [place] EKG-SCANNED (02/14/2019 12:40 PM CDT) Narrative Performed At This result has an attachment that is no t available. ECHOCARDIOGRAM REPORT - SCAN (02/13/2019 9:21 PM CDT) Narrative Performed At This result has an attachment that is no t available. 2D Echo W/Doppler(CW/PW/Color) (02/12/2019 5:35 PM CDT) Ejection Fraction [facility] Specimen Narrative Performed At Transthoracic Echocardiography Report (T TE) [facility] ECHO HEARTLAB [facility] Demographics Patient JEAN Villeda Date of Study02/12/2019 ESTEVAN III Gender Male Visit [id number] Race Unknown [id number] Number Date of 1940 Physician SMILEY Raymond Age 78 year(s) SonographParul Driver [facility] Cutter Operator Opal Patricia Interpreting Physician SMILEY Mauro Procedure Type of Study TTE procedure:2DECHO W [...] akinetic: apex, ap ical anterior, apical lateral, mid-dista l an teroseptum . The other segments contract no rmally. Global LV systolic function mild ly re duced . LVEF by Bolanos's method of disk as sessment is mildly reduced (40-44%) . Th e LVEF wa s measured using Bolanos's bi-plane meth od of di sk . LV endocardium is adequately visual ized with IV ultrasound enhancing agent. Degree of di astolic dy sfunction (LAP assessment) is inconclusi ve due to mi tral annular calcification . Left AtriumLA size is moderately enlarged (42-48 ml/m2) . Right VentricleThe right ventricular chamber size and systolic fu nction are within normal limits. Right Atrium RA cavity size appears mildly enlarged . Aortic Valve [id number] AoV cusp calcification. Ao V cusp mobility [...] Es timated peak systolic PA pressure is 45- 50 mmHg . Pulmonic Valve Normal PV structure appears normal by available vi ews. AortaAortic root size (SInus of Valsalva diameter) i s issa rderline dilated . Proximal ascending ao rta size mi ldly dilated . 3.7 cm [...] Transthoracic Echocardiography Report (TTE) Demographics Patient Name JEAN LUCIO Date o f Study 02/12/2019 ESTEVAN RENE Gender Male Visit Number [id number] Race Unknown [place] [id number] Number Date of 1940 Referr Frankie Herrera MD Age 78 year(s) Sonogr apher Cori Melhem RDCS Cutter Operator Opal Petersonp Frankie Del Castillo MD Procedure Type of Study TTE procedure:2DECHO W DOPPLE R(CW/PW/COLOR) (SOFIA) Indications:Acute Chest Pain/ Suspected CAD. Clinical History DM;HTN;CANCER. HGB 7.2 HCT 23.5 % Contrast Medium: Definity. Height: 72 inches Weight: 72.57 kg (160 lbs) BSA: 1.94 m^2 BMI: 21.7 kg/m^2 HR: 68 bpm BP: 120/50 mmHg Summary The left ventricle is chamber size (by vol index) is moderately enlarged (male - LVED vol 90-100ml.m2) . The following segment(s) appear akineti c: apex, apical anterior, apical lateral, mid-distal anteroseptum . The other segments contract normally. Global LV systolic function mildly redu martín . LVEF by Bolanos's method of disk assessment is mildly reduced (40-4 4%) . The LVEF was measured using Bolanos's bi-plane method of disk . LV endocardium is adequately visualized with IV ultrasound enhancing agent. Mild aortic stenosis. Mild tricuspid regurgitation. Estimated peak systolic PA pressure is 45-50 mmHg . The estimated RA pressure by IVC dynami cs 16-20mmHg . Aortic root size (SInus of Valsalva jacobo meter) is borderline dilated . Proximal ascending aorta size mildly di lated . 3.7 cm Previous Study In comparison with the prior exam the following changes are noted: wall motion abnormalities are new, i s new, LV systolic function has declined . Signature Findings Rhythm/BP Regular sinus rh ythm during the exam. Left Ventricle The left ventric le is chamber size (by vol index) is moderately en larged (male - LVED vol 90-100ml.m2) . M ild septal hypertrophy is present. The following se gment(s) appear akinetic: apex, apical anterior, apical lateral, mid-distal anteroseptum . T he other segments contract normally. Global LV systolic function mildly reduced . LVEF b y Bolanos's method of disk assessment is mi ldly reduced (40-44%) . The LVEF was measured usi ng Bolanos's bi-plane method of disk . LV endoca rdium is adequately visualized with IV ultrasound en hancing agent. Degree of diastolic dysfunction (LAP assessment) is inconclusive due to mitral annular c alcification . Left Atrium LA size is moder ately enlarged (42-48 ml/m2) . Right Ventricle The right ventri cular chamber size and systolic function are wit hin normal limits. Right Atrium RA cavity size a ppears mildly enlarged . Aortic Valve Yqck-hb-waidoere AoV cusp calcification. AoV cusp mobilit y is decreased . Mild aortic sten osis. AoV area at rest by continuity equation is in the range of 1.61 cm 2. AoV area by plan imtery is in the range of 1.63 cm2. Mitral Valve Mild MV leaflet thickening. Mild mitral marcel lar calcification. Mild mitral regu rgitation. Tricuspid Valve Mild tricuspid r egurgitation. Estimated peak s ystolic PA pressure is 45-50 mmHg . Pulmonic Valve Normal PV struct ure appears normal by available views. Aorta Aortic root size (SInus of Valsalva diameter) is borderline dilat ed . Proximal ascending aorta size mildly dilated . 3.7 cm Pericardium No significant p ericardial effusion is visualized. IVC/SVC/PA/PV/Pleural The inferior kota a cava size is increased . The estimated [...] DVI: 0.55 LVOT Peak Velocity: 1.01 m/s Pea k Gradient: 4.05 mmHg Mean Velocity: 0.72 m/s Gayle n Gradient: 2.31 mmHg LVOT Diameter: 1.94 cm LVO T VTI: 25.05 cm LVOT Area: 2.96 cm^2 LVO T SV:74.01 ml LVOT CO: 5.03 l/min LVO T CI: 2.59 l/min/m^2 Tricuspid Valve TR Velocity: 2.78 m/s TR Gradient: 30.95 mmHg Performing Organization Address City/State/Zipcode Phone Number [facility] ECHO HEARTLAB [facility] REPORT OF PROCEDURE - ENDOSCOPY URL (02/12/2019 5:07 PM CDT) Narrative Performed At This result has an attachment that is no t available. Hepatitis A antibody, IgG (02/11/2019 6:10 PM CDT) Hep A IgG Nonreactive Nonreactive [facility] Specimen Blood Performing Organization Address City/State/Zipcode Phone Number [address] [address] CENTER US abdominal with doppler (02/11/2019 7:59 AM CDT) Specimen Narrative Performed At FINAL REPORT [facility] Ultrasound of the Abdomen, 02/11/2019. Clinical History:Abdominal pain. Cir rhosis. Comparison: MRI, 09/25/2017. Discussion: Sonographic evaluation of the abdomen is performed.In addition, color Doppler and spectral wave form alissa lysis evaluations of the abdominal vasculature are performed. Liver: Cirrhotic morphology. No mass vis ualized. Biliary tree:Common duct 0.6 mm. No biliary dilatation. Gallbladder:Cholelithiasis.No wa ll thickening.No pericholecystic fluid.Absent sonogra phic Coffman sign. Pancreas: Head, body, and proximal tail unremarkable. Ascites:None. Spleen:13.2 cm in length, upper limi ts of normal in size. Kidneys: Right kidney 11.9 cm in dagoberto gth, normal in size, with cortical thickness of 1.4 cm.Left ki dney 11.5 cm in length, normal in size, with cortical thickness of 1.7 cm.Normal cortical echogenicity.Anechoic cyst at the lo wer pole right kidney measuring 16 mm.No shadowing calculus.No h ydronephrosis. IVC/Aorta:Segments partially seen. Unremarkable. Doppler: Doppler interrogation of the li mimi demonstrates a main portal vein diameter measuring 0.9 cm wi th a peak systolic velocity of 30 cm/sec. There is hepatopetal and hepatofugal dir ectionality of flow in the main portal vein. No thrombus is visuali zed however. There is hepatofugal flow in portions of the sple lorraine vein. The resistive indices in the proper, rig ht and left hepatic arteries are 0.8, 0.8 and 0.8 respectively. Outflow with appropriate directionality is seen in the IVC, hepatic venous confluence as well as the right, middle and left hepatic veins. Impression: 1. Cirrhotic liver. No mass. 2. Hepatopedal and hepatofugal direction ality of flow in the main portal vein without evidence for thrombu s at this time. Signed: Tere Devries MD Report Verified Date/Time:02/11/2019 13:40:35 Reading Location: [address] Radiolog Reading Room Procedure Note Interface, External Ris In - 02/11/2019 1:42 PM CDT FINAL REPORT Ultrasound of the Abdomen, 02/11/2019. Clinical History: Abdominal pain. Cirrh osis. Comparison: MRI, 09/25/2017. Discussion: Sonographic evaluation of the abdomen is performed. In addition, color Doppler and spectral wave form alissa lysis evaluations of the abdominal vasculature are performed. Liver: Cirrhotic morphology. No mass vis ualized. Biliary tree: Common duct 0.6 mm. No b iliary dilatation. Gallbladder: Cholelithiasis. No wall t hickening. No pericholecystic fluid. Absent sonograph ic Coffman sign. Pancreas: Head, body, and proximal tail unremarkable. Ascites: None. Spleen: 13.2 cm in length, upper limits of normal in size. Kidneys: Right kidney 11.9 cm in lengt h, normal in size, with cortical thickness of 1.4 cm. Left kidn ey 11.5 cm in length, normal in size, with cortical thickness of 1.7 cm. Normal cortical echogenicity. Anechoic cyst at the lowe r pole right kidney measuring 16 mm. No shadowing calculus. No hydro nephrosis. IVC/Aorta: Segments partially seen. Un remarkable. Doppler: Doppler interrogation of the li mimi demonstrates a main portal vein diameter measuring 0.9 cm wi th a peak systolic velocity of 30 cm/sec. There is hepatopetal and hepatofugal dir ectionality of flow in the main portal vein. No thrombus is visuali zed however. There is hepatofugal flow in portions of the sple lorraine vein. The resistive indices in the proper, rig ht and left hepatic arteries are 0.8, 0.8 and 0.8 respectively. Outflow with appropriate directionality is seen in the IVC, hepatic venous confluence as well as the right, middle and left hepatic veins. Impression: 1. Cirrhotic liver. No mass. 2. Hepatopedal and hepatofugal direction ality of flow in the main portal vein without evidence for thrombu s at this time. Signed: Tere Devries MD Report Verified Date/Time: 02/11/2019 1 3:40:35 Reading Location: [address] Reading Room Performing Organization Address City/State/Zipcode Phone Number [facility] XR chest 2 views (02/10/2019 10:35 PM CDT) Specimen Narrative Performed At FINAL REPORT [facility] History: Pleural effusions. FINDINGS: Compared with 11/20 2017, the heart and m ediastinum are stable. Lung volumes have decreased slightly. There i s increased opacity in the lung bases, possibly atelectasis or sailaja y pneumonia. Blunting of the costophrenic sulci may represent small p leural effusions. Lungs are otherwise clear. No pneumothorax. Bones are unremarkable. IMPRESSION: 1. Low lung volumes and probable bilater al lower lobe atelectasis. 2. Possible small bilateral pleural effu sions. Signed: Estrella Villasenor MD Report Verified Date/Time:02/10/2019 22:59:29 Reading Location: [facility] Reading [facility] Procedure Note Interface, External Ris In - 02/10/2019 11:01 PM CDT FINAL REPORT History: Pleural effusions. FINDINGS: Compared with 11/20 2017, the heart and m ediastinum are stable. Lung volumes have decreased slightly. There i s increased opacity in the lung bases, possibly atelectasis or sailaja y pneumonia. Blunting of the costophrenic sulci may represent small p leural effusions. Lungs are otherwise clear. No pneumothorax. Bones are unremarkable. IMPRESSION: 1. Low lung volumes and probable bilater al lower lobe atelectasis. 2. Possible small bilateral pleural effu sions. Signed: Estrella Villasenor MD Report Verified Date/Time: 02/10/2019 2 2:59:29 Reading Location: [facility] Diagnostic [facility] Reading Room - [facility] F1 1120 Performing Organization Address City/State/Zipcode Phone Number GE RIS after 02/02/2019 Insurance Payer Benefit Plan / Group Subscriber ID Type Phone A ddress MEDICARE MEDICARE PART A xxxxxxxxxxx Medicare Advance Directives For more information, please contact:[address] [phone] Code Status Date Activated Date Inactivated Comments Full Code 08/05/2019 7:53 PM 08/18/2019 6:01 PM This code status was determined by: Patient Full Code 02/10/2019 9:23 PM 02/13/2019 6:01 PM This code status was determined by: Patient Full Code 09/18/2017 2:28 PM 09/25/2017 8:49 PM This code status was determined by: Patient
--- OUTSIDE RECORDS SUMMARY | 2020-02-03 12:01 | XMS REPORT | Continuity of Care Document ---
:1940 Author Organization [facility] t Address [address] [place] [address] Care Team Providers Name Role Phone Pcp Primary Care Physician Unavailable Krupa Whipple NP Attending Clinician Shmuel IBARRA Attending Clinician Unavailable Emiliano Booth MD Attending Clinician [phone] Adin Putnam MD Attending Clinician Maria Del Carmen REIS Attending Clinician Micheline Britton MD Attending Clinician Arcadio REIS Attending Clinician Moise Razo MD Attending Clinician Meghan Covington MD Attending Clinician EMILIANO BOOTH Attending Clinician Unavailable Bart Bearden MD Attending Clinician Hilda Martell NP Attending Clinician Bart BEARDEN Attending Clinician Unavailable NIELS Attending Clinician Unavailable Niels REIS Attending Clinician Emily Plata MD Attending Clinician [phone] Celina REIS Attending Clinician Artemio Clayton MD Attending Clinician OCHOA, ESSENCE Attending Clinician Unavailable EMILIANO BOOTH Admitting Clinician Unavailable NIELS Admitting Clinician Unavailable OCHOA, ESSENCE Admitting Clinician Unavailable Payers Payer Name Policy Policy Number Effective Expiration Source Type Date Date MEDICAREMEDICARE PART x[facility]xx [facility] Problems Condition Condition Condition Status Onset Resolution Last Treating Co mments Source Name Details Category Date Date Treatment Clinician Date Immunity Immunity Disease [facility] testing [facility] [place] 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 [facility]: [facility] 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 8- [place] [facility] - athy athy 00:00: Medical 00 [place] 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 8- [place] - on on 00:00: Medical 00 [place] Abdominal Abdominal Disease Active 2018- [facility] pain pain 718 [facility] - 00:00: [facility] [place] Nausea & Nausea & Disease Active 2018- [facility] vomiting vomiting [facility] - 00[facility]00: [facility] [place] Acute Acute Disease Active 2017- [facility] urinary urinary 3-01 [facility] - retention retention 00:[facility]: [facility] 00 Center Acute Acute Disease Active [facility] respirator respirator 2-27 [place] [facility] - y failure y failure 00:00: [facility] with with 00 Center hypoxia hypoxia Essential Essential Disease Active [facility] hypertensi hypertensi 2-27 [place] - on on 00:00: Medical 00 Center 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 Family History Family Member Diagnosis Comments Start Date Stop Date Source Natural father Throat cancer [facility] Natural mother Diabetes [facility] Social History Social Habit Start Date Stop Date Quantity Comments Source Sex Assigned At [facility] abdulkadir - [facility] Cigarettes smoked 2019-08-08 2019-08-[address] [facility] St [place] - current (pack per 00:00:00 00:00:00 [facility] Center day) - Reported Cigarette 2019-08-08 2019-08-[address] [facility] St [place] - pack-years 00:00:00 00:00:00 [facility] Alcohol Comment 2017-09-18 2017-09-18 quit [address] [facility] juan - 00:00:00 00:00:00 09-14-17 [facility] Smoking Status Start Date Stop Date Source Current every day smoker 2019-08-08 00:00:00 [facility] Medications Ordered Filled Start Stop Current Ordering Indication Dosage Frequency Signature Comments Components Source Medication Medication Date Date Medication? Clinician (SIG) Name Name aspirin 81 No 81mg QD Take [address] [facility] MG chewable 08-19 tablet (81 L [facility] - tablet 00:00: 23:59 mg total) Medic al 00 :00 by mouth Center daily. folic acid No 1mg QD Take [address] (FOLVITE) 1 08-19 tablet (1 [place] - MG tablet 00:00: 23:59 mg total) Me dical 00 :00 by mouth Center daily. multivitami 2020- No 1{tbl} QD Take [address] n 08-19 tablet by [facility] - (THERAGRAN) 00:00: 23:59 mouth Medi masoud tablet 00 :00 daily. Center thiamine No 100mg QD Take 1 [facility] 100 MG 08-19 tablet [facility] - tablet 00:00: 23:59 (100 mg Medical 00 :00 total) by Center mouth daily. lactulose 2019- Yes 20g [id number] Take [address] (CHRONULAC) 08-18 [id number] mLs (20 g [facility] - 20 gram/30 00:00: 3D total) by Ms dical mL solution 00 mouth 3 Cente r (three) times daily. polyethylen 2019- Yes 17g Q.5D Take [address] e glycol 08-18 by mouth 2 [facility] - (GLYCOLAX) 00:00: (two) Medica l 17 gram 00 times Center packet daily. rifAXIMin Yes 550mg Q.5D Take 1 [facility] 550 mg Tab 1-23 tablet [facility] - 00:00: (550 mg Medical 00 total) by Center mouth 2 (two) times daily. tamsulosin Yes .4mg QD Take 1 [facility] (FLOMAX) -23 capsule [facility] - 0.4 mg Cap 00:00: (0.4 mg Medi masoud 24 hr 00 total) by Center capsule mouth nightly. atorvastati 2020- No 80mg QD Take [address] n (LIPITOR) 08-18-22 tablet (80 [facility] - 80 MG 00:00: 23:59 mg total) Medica l tablet 00 :00 by mouth Center nightly. simvastatin 2018- No 10mg QD Take [address] (ZOCOR) 10 02-13 07-21 by mouth [facility] - MG tablet 15:02: 00:00 nightly. Med ical 35 :00 Center ferrous 2018- No 325mg Take [address] [facility] sulfate 325 - 07-21 mg by [facility]ukes - (65 FE) MG 15:02: 00:00 mouth Medic al tablet 30 :00 daily with Center breakfast. pantoprazol Yes 40mg Q.5D Take [address] [facility] e 7-21 tablet (40 [facility] - (PROTONIX) 00:00: mg total) Me dical 40 MG 00 by mouth 2 Center tablet (two) times daily For 12 weeks. ferrous Yes 325mg Take [address] sulfate 325 7-21 tablet [facility]ukes - (65 FE) MG 00:00: (325 mg Medi masoud EC tablet 00 total) by Cente r mouth daily with breakfast Increase to 3x a day if tolerated. polyethylen 2019- No 17g Q.5D Take [address] [facility] e glycol -16 08- by mouth 2 [facility] - (GLYCOLAX) 00:00: 00:00 (two) Medic al 17 gram 00 :00 times Center packet daily. sucralfate 2018- No 1g Take [address] (CARAFATE) - 08-20 mLs (1 g [facility] - 100 mg/mL 00:00: 23:59 total) by Me linares suspension 00 :00 mouth Center every 6 (six) hours for 30 days To protect the stomach. Vital Signs Vital Name Observation Time Observation Value Comments Source Systolic blood 2019-08-18 12:30:00 126 mm[Hg] [facility] Diastolic blood 2019-08-18 12:30:00 57 mm[Hg] [facility] S [facility] Heart rate 2019-08-18 12:30:00 75 /min [facility] Body temperature 2019-08-18 12:30:00 36.33 Analia [facility] Respiratory rate 2019-08-18 12:30:00 18 /min [facility] Oxygen saturation in 2019-08-18 12:30:00 98 /min [facility] Arterial blood by Medical Ce nter Pulse oximetry Body weight Measured 2019-08-18 06:00:00 73.4 kg [facility] BMI 2019-08-18 06:00:00 21.95 kg/m2 [facility] Body height 2019-08-06 00:00:00 182.9 cm [facility] Procedures Procedure Date / Time Performing Clinician Source Performed RHYTHM STRIP - SCAN 2019-08-19 Provider, Default [facility] Te[facility] - 10:22:00 Scanning [facility] POCT-GLUCOSE METER 2019-08-[address] [facility] - 12:32:00 [facility] POCT-GLUCOSE METER 2019-08-[address] [facility] - 08:18:00 [facility] BASIC METABOLIC PANEL (7) 2019-08-[address] [facility] - 04:28:00 [facility] MAGNESIUM 2019-08-[address] [facility] - 04:28:00 [facility] CBC W/PLT COUNT & AUTO 2019-08-[address] [facility] - DIFFERENTIAL 04:28:00 [facility] POCT-GLUCOSE METER 2019-08-[address] [facility] - 21:10:00 [facility] Center POCT-GLUCOSE METER 2019-08-[address] [facility] - 15:50:00 Medical Center POCT-GLUCOSE METER 2019-08-17 Arcadio, Dany [facility] - 11:40:00 [facility] POCT-GLUCOSE METER 2019-08-17 Arcadio, Dany [facility] - 07:35:00 [facility] BASIC METABOLIC PANEL (7) 2019-08-[address] [facility] - 03:52:00 [facility] MAGNESIUM 2019-08-[address] [facility] - 03:52:00 [facility] CBC W/PLT COUNT & AUTO 2019-08-17 Basrachealr Ronaldo Isam [facility] - DIFFERENTIAL 03:52:00 [facility] POCT-GLUCOSE METER 2019-08-16 Arcadio, Dany [facility] - 21:49:00 [facility] POCT-GLUCOSE METER 2019-08-16 Arcadio, Dany [facility] - 16:18:00 [facility] POCT-GLUCOSE METER 2019-08-16 Arcadio, Dany [facility] - 13:08:00 [facility] POCT-GLUCOSE METER 2019-08-16 Arcadio, Dany [facility] - 11:46:00 [facility] NM CARDIAC PET PERFUSION 2019-08-16 José Miguel Dyson [facility] - REST AND/OR STRESS 09:26:00 Medical Cente r TREADMILL 2019-08-16 Unknown, Hl7 Doctor [facility] - TOLERANCE(NON-NUCLEAR 09:06:10 Medical Ce nter TREADMILL) ECG 12-LEAD 2019-08-16 Unknown, Hl7 Doctor [facility] - 08:55:01 [facility] BASIC METABOLIC PANEL (7) 2019-08-[address] [facility] - 04:23:00 [facility] MAGNESIUM 2019-08-[address] [facility] - 04:23:00 [facility] TROPONIN I 2019-08-16 José Miguel Dyson [facility] - 04:23:00 [facility] CBC W/PLT COUNT & AUTO 2019-08-16 BasRonal[address] blevins Isjoyce [facility] - DIFFERENTIAL 04:23:00 [facility] POCT-GLUCOSE METER 2019-08-[address] [facility] - 20:34:00 [facility] POCT-GLUCOSE METER 2019-08-[address] [facility] - 18:30:00 [facility] TRANSFUSION SERVICE REPORT - 2019-08-15 Provider, Default [facility] - SCAN 18:00:44 Scanning [facility] POCT-GLUCOSE METER 2019-08-[address] [facility] - 11:32:00 [facility] POCT-GLUCOSE METER 2019-08-[address] [facility] - 07:45:00 [facility] BASIC METABOLIC PANEL (7) 2019-08-[address] [facility] - 04:23:00 [facility] MAGNESIUM 2019-08-[address] [facility] - 04:23:00 [facility] CBC W/PLT COUNT & AUTO 2019-08-15 Bashour, Ronaldo Isjoyce [facility] - DIFFERENTIAL 04:23:00 [facility] POCT-GLUCOSE METER 2019-08-[address] [facility] - 21:37:00 [facility] POCT-GLUCOSE METER 2019-08-[address] - 17:11:00 [facility] MR ABDOMEN WITH & WITHOUT IV 2019-08-[address] [facility] - CONTRAST 17:00:00 [facility] POCT-GLUCOSE METER 2019-08-[address] [facility] - 12:13:00 [facility] POCT-GLUCOSE METER 2019-08-[address] [facility] - 08:13:00 [facility] BASIC METABOLIC PANEL (7) 2019-08-[address] [facility] - 06:11:00 [facility] MAGNESIUM 2019-08-[address] [facility] - 06:11:00 [facility] TYPE AND SCREEN, AUTOMATED 2019-08-[address] [facility] - 06:11:00 [facility] CBC W/PLT COUNT & AUTO 2019-08-14 Bashour, Ronaldo Isam [facility] - DIFFERENTIAL 06:11:00 [facility] POCT-GLUCOSE METER 2019-08-13 Jarrouge, Mckay G. [facility] - 21:23:00 [facility] Center POCT-GLUCOSE METER 2019-08-[address] - 18:32:00 [facility] Center TRANSFUSION SERVICE REPORT - 2019-08-13 Provider, Default [facility] - SCAN 18:01:28 [facility] POCT-GLUCOSE METER 2019-08-[address] [facility] - 12:04:00 [facility] Center POCT-GLUCOSE METER 2019-08-[address] [facility] - 07:18:00 [facility] BASIC METABOLIC PANEL (7) 2019-08-13 Maza, Darren [facility] - 04:22:00 [facility] MAGNESIUM 2019-08-13 Maza, Darren [facility] - 04:22:00 [facility] PHOSPHORUS 2019-08-13 Maza, Darren [facility] - 04:22:00 [facility] PT/APTT 2019-08-[address] [facility] - 04:22:00 [facility] CBC W/PLT COUNT & AUTO 2019-08-13 [facility] 04:22:00 [facility] PREPARE LEUKO-REDUCED RBC 2019-08-[address] [facility] - 23:54:00 [facility] POCT-GLUCOSE METER 2019-08-[address] [facility] - 21:47:00 [facility] TRANSFUSION SERVICE REPORT - 2019-08-12 Provider, Default [facility] - SCAN 18:00:16 [facility] POCT-GLUCOSE METER 2019-08-[address] [facility] - 16:41:00 [facility] Center POCT-GLUCOSE METER 2019-08-[address] [facility] - 11:44:00 [facility] Center POCT-GLUCOSE METER 2019-08-[address] [facility] - 07:45:00 [facility] AMMONIA 2019-08-12 Manuel Ronaldo Isam [facility] - 06:29:00 [facility] IMMUNOGLOBULIN G (IGG) 2019-08-12 [facility], Ronaldo Isam [facility] - 04:23:00 [facility] BASIC METABOLIC PANEL (7) 2019-08-[address] [facility] - 04:23:00 [facility] MAGNESIUM 2019-08-[address] [facility] - 04:23:00 [facility] PHOSPHORUS 2019-08-[address] [facility] - 04:23:00 [facility] PT/APTT 2019-08-[address] [facility] - 04:23:00 [facility] FIBRINOGEN 2019-08-[address] [facility] - 04:23:00 [facility] ANTI-MITOCHONDRIAL AB, 2019-08-[address] [facility] [place] [facility] - REFLEX TO TITER 04:23:00 [facility] CERULOPLASMIN 2019-08-[address] [facility] - 04:23:00 [facility] [id number]\\, SERUM 2019-08-[address] [facility] - 04:23:00 [facility] ANTI-NUCLEAR ANTIBODY (ALISSA) 2019-08-12 [facility] Ronaldo Santojoyce Matthew [facility] - 04:23:00 [facility] HEPATITIS C ANTIBODY 2019-08-12 [facility] - 04:23:00 [facility] ALISSA TITER AND PATTERN 2019-08-12 [facility] R[facility] Johnson [facility] - 04:23:00 [facility] MITOCHONDRIAL AB SCREEN 2019-08-[address] [facility] - 04:23:00 [facility] MITOCHONDRIAL AB TITER 2019-08-[address] [facility] St [place] [facility] - 04:23:00 [facility] CBC W/PLT COUNT & AUTO 2019-08-12 Manuel Ronaldo Johnson [facility] - DIFFERENTIAL 04:23:00 [facility] ACTIN (SMOOTH MUSCLE) 2019-08-[address] [facility] St [facility] - ANTIBODY, IGG 04:22:00 [facility] HEPATITIS C PCR, 2019-08-[address] [facility] - QUANTITATIVE 04:22:00 [facility] POCT-GLUCOSE METER 2019-08-[address] [facility] [facility] - 00:38:00 [facility] PREPARE LEUKO-REDUCED RBC 2019-08-11 [facility] - 23:54:00 [facility] TRANSFUSE LEUKO-REDUCED RED 2019-08-[address] [facility] - BLOOD CELLS 22:23:54 [facility] POCT-GLUCOSE METER 2019-08-[address] [facility] - 22:16:00 [facility] HEMOGLOBIN AND HEMATOCRIT 2019-08-11 [facility] - 19:56:00 [facility] TRANSFUSION SERVICE REPORT - 2019-08-11 Provider, Default [facility] - SCAN 18:03:19 Scanning [facility] POCT-GLUCOSE METER 2019-08-[address] [facility] - 17:36:00 [facility] HEMOGLOBIN AND HEMATOCRIT 2019-08-11 [facility] - 15:41:00 [facility] IMMUNOGLOBULIN G (IGG) 2019-08-[address] [facility] [place] [facility] - 15:41:00 [facility] HEPATITIS C ANTIBODY 2019-08-11 Laura, [facility] - 15:41:00 [facility] MAGNESIUM 2019-08-[address] [facility] - 15:41:00 [facility] POCT-GLUCOSE METER 2019-08-[address] [facility] - 11:59:00 [facility] AMMONIA 2019-08-[address] [facility] - 05:01:00 [facility] BASIC METABOLIC PANEL (7) 2019-08-11 Maza, Darren [facility] - 04:01:00 [facility] MAGNESIUM 2019-08-11 Link, Darren [facility] - 04:01:00 [facility] PHOSPHORUS 2019-08-[address] [facility] - 04:01:00 [facility] PT/APTT 2019-08-[address] [facility] - 04:00:00 [facility] FIBRINOGEN 2019-08-[address] [facility] - 04:00:00 [facility] Center IRON, TIBC, % SAT. (WITHOUT 2019-08-11 [facility], Ronaldo Johnson [facility] - FERRITIN) 04:00:00 [facility] TRANSFERRIN 2019-08-11 [facility], Ronaldo Johnson [facility] - 04:00:00 [facility] FERRITIN 2019-08-11 [facility], Ronaldo Johnson [facility] - 04:00:00 [facility] VITAMIN B12 AND FOLATE 2019-08-11 [facility], Ronaldo Johnson [facility] - 04:00:00 [facility] RETICULOCYTE COUNT 2019-08-11 [facility], Ronaldo Johnson [facility] - 04:00:00 [facility] CBC W/PLT COUNT & AUTO 2019-08-[address] [place] [facility] - DIFFERENTIAL 04:00:00 [facility] HEMOGLOBIN AND HEMATOCRIT 2019-08-[address] [facility] - 23:30:00 [facility] TRANSFUSE LEUKO-REDUCED RED 2019-08-10 [facility], Ronaldo Matthew [facility] - BLOOD CELLS 22:01:58 [facility] Center TYPE AND SCREEN, AUTOMATED 2019-08-10 [facility], Ronaldo Johnson [facility] - 17:50:00 [facility] POCT-GLUCOSE METER 2019-08-10 Maria Del Carmen Ali [facility] - 17:14:00 [facility] Center HEMOGLOBIN AND HEMATOCRIT 2019-08-[address] [facility] - 17:04:00 [facility] HEMOGLOBIN AND HEMATOCRIT 2019-08-10 Maria Del Carmen Ali [facility] - 15:55:00 [facility] POTASSIUM 2019-08-10 Maria Del Carmen, Ali [facility] - 15:55:00 [facility] Center MAGNESIUM 2019-08-10 Omgildaian, Ali [facility] - 15:55:00 [facility] Center POCT-GLUCOSE METER 2019-08-10 Maria Del Carmen Ali [facility] - 13:03:00 [facility] Center POCT-GLUCOSE METER 2019-08-[address] [place] [facility] - 06:16:[address] [facility] AMMONIA 2019-08-[address] [facility] - 04:30:00 [facility] XR CHEST 1 VIEW 2019-08-[address] [facility] - PORTABLE/BEDSIDE 03:56:00 [facility] BASIC METABOLIC PANEL (7) 2019-08-[address] [facility] - 03:50:00 [facility] MAGNESIUM 2019-08-[address] [facility] - 03:50:00 [facility] PHOSPHORUS 2019-08-[address] [facility] - 03:50:00 [facility] PT/APTT 2019-08-[address] [facility] - 03:50:00 [facility] ALPHA FETOPROTEIN (AFP), 2019-08-[address] [facility] - TUMOR MARKER 03:50:00 [facility] HEPATITIS B SURFACE ANTIBODY 2019-08-[address] [facility] - 03:50:00 [facility] HEPATITIS B CORE ANTIBODY, 2019-08-10 [facility] - TOTAL 03:50:00 [facility] CBC W/PLT COUNT & AUTO 2019-08-[address] [facility] [place] [facility] - DIFFERENTIAL 03:50:00 [facility] (CELLAVISION MANUAL DIFF) 2019-08-[address] [facility] - 03:50:00 [facility] BLOOD GAS, ARTERIAL 2019-08-10 Brent[facility] - 03:46:00 [facility] POCT-GLUCOSE METER 2019-08-[address] [place] [facility] - 00:13:[address] [facility] HEMOGLOBIN AND HEMATOCRIT 2019-08-[address] [facility] - 21:29:00 [facility] POCT-GLUCOSE METER 2019-08-[address] [place] [facility] - 18:32:[address] [facility] HEMOGLOBIN AND HEMATOCRIT 2019-08-[address] [facility] - 13:47:00 [facility] BASIC METABOLIC PANEL (7) 2019-08-[address] [facility] - 13:47:00 [facility] POCT-GLUCOSE METER 2019-08-[address] [place] [facility] - 12:12:[address] [facility] POCT-GLUCOSE METER 2019-08-[address] [place] [facility] - 05:49:[address] [facility] BLOOD GAS, ARTERIAL 2019-08-09 Parveen Villa, [facility] - 04:55:00 [facility] AMMONIA 2019-08-[address] [facility] - 04:53:00 [facility] BASIC METABOLIC PANEL (7) 2019-08-[address] [facility] - 04:53:00 [facility] MAGNESIUM 2019-08-[address] [facility] - 04:53:00 [facility] PHOSPHORUS 2019-08-[address] [facility] - 04:53:00 [facility] FIBRINOGEN 2019-08-[address] [facility] - 04:53:00 [facility] PT/APTT 2019-08-[address] [facility] - 04:53:00 [facility] CBC W/PLT COUNT & AUTO 2019-08-[address] [facility] - DIFFERENTIAL 04:53:00 [facility] XR CHEST 1 VIEW 2019-08-[address] [facility] - PORTABLE/BEDSIDE 03:49:00 [facility] POCT-GLUCOSE METER 2019-08-[address] [place] [facility] - 00:07:[address] [facility] HEMOGLOBIN AND HEMATOCRIT 2019-08-[address] [facility] - 23:17:00 [facility] POCT-GLUCOSE METER 2019-08-[address] [place] [facility] - 13:27:[address] [facility] SPUTUM CULTURE + GRAM STAIN 2019-08-[address] [facility] - 10:56:00 [facility] HEMOGLOBIN AND HEMATOCRIT 2019-08-[address] [facility] - 10:56:00 [facility] TSH/FREE T4 IF INDICATED 2019-08-[address] [facility] - 10:56:00 [facility] POCT-GLUCOSE METER 2019-08-[address] [facility] - 06:38:00 [facility] XR CHEST 1 VIEW 2019-08-08 Maza, Darren [facility] - PORTABLE/BEDSIDE 06:22:00 [facility] AMMONIA 2019-08-08 Link, Darren [facility] - 03:32:00 [facility] [facility] BASIC METABOLIC PANEL (7) 2019-08-08 Link, Darren [facility] - 03:32:00 [facility] MAGNESIUM 2019-08-08 Link, Darren [facility] - 03:32:00 [facility] PHOSPHORUS 2019-08-08 Maza, Darren [facility] - 03:32:00 [facility] FIBRINOGEN 2019-08-[address] [facility] - 03:32:00 [facility] PT/APTT 2019-08-[address] [facility] - 03:32:00 [facility] CBC W/PLT COUNT & AUTO 2019-08-[address] [facility] - DIFFERENTIAL 03:32:00 [facility] BLOOD GAS, ARTERIAL 2019-08-[address] [facility] - 03:31:00 [facility] POCT-GLUCOSE METER 2019-08-[address] [facility] - 01:22:00 [facility] PREPARE LEUKO-REDUCED RBC 2019-08-[address] [facility] - 23:54:00 [facility] FIBRINOGEN 2019-08-[address] [facility] - 18:52:00 [facility] PT/APTT 2019-08-[address] [facility] - 18:52:00 [facility] BLOOD GAS, ARTERIAL 2019-08-[address] [facility] - 18:52:00 [facility] HEMOGLOBIN AND HEMATOCRIT 2019-08-[address] [facility] - 18:52:00 [facility] CBC W/PLT COUNT & AUTO 2019-08-[address] [facility] - DIFFERENTIAL 18:51:00 [facility] (CELLAVISION MANUAL DIFF) 2019-08-[address] [facility] - 18:51:00 [facility] XR CHEST 1 VIEW 2019-08-[address] [facility] - PORTABLE/BEDSIDE 18:02:00 [facility] TRANSFUSION SERVICE REPORT - 2019-08-07 Provider, Default [facility] - SCAN 18:01:24 Scanning [facility] CBC (HEMOGRAM ONLY) 2019-08-[address] [facility] - 16:10:00 [facility] TROPONIN I 2019-08-[address] [facility] - 16:10:00 [facility] GASTRIN 2019-08-[address] [facility] - 10:29:00 [facility] CT BRAIN WITHOUT IV CONTRAST 2019-08-[address] [facility] - 08:33:00 [facility] CBC (HEMOGRAM ONLY) 2019-08-07 [facility] - 08:04:00 [facility] TROPONIN I 2019-08-07 [facility] - 08:04:00 [facility] AMMONIA 2019-08-[address] [facility] - 08:04:00 [facility] POCT-GLUCOSE METER 2019-08-[address] [facility] - 05:49:00 [facility] BLOOD GAS, ARTERIAL 2019-08-[address] [facility] - 02:27:00 [facility] AMMONIA 2019-08-[address] [facility] - 02:20:00 [facility] LACTIC ACID, VENOUS 2019-08-[address] [facility] - 01:34:00 [facility] TROPONIN I 2019-08-[address] [facility] - 01:30:00 [facility] BASIC METABOLIC PANEL (7) 2019-08-[address] [facility] - 01:30:00 [facility] MAGNESIUM 2019-08-[address] [facility] - 01:30:00 [facility] CBC (HEMOGRAM ONLY) 2019-08-[address] [facility] - 01:29:00 [facility] CBC W/PLT COUNT & AUTO 2019-08-[address] [facility] - DIFFERENTIAL 01:29:00 [facility] ECHOCARDIOGRAM REPORT - SCAN 2019-08-06 Provider, Default [facility] - 21:22:19 Scanning [facility] REPORT OF PROCEDURE - 2019-08-[address] [facility] - ENDOSCOPY URL 20:16:33 [facility] ECG 12-LEAD 2019-08-06 Unknown, Hl7 Doctor [facility] - 18:42:04 [facility] ECG 12-LEAD 2019-08-06 Unknown, Hl7 Doctor [facility] - 18:41:30 [facility] ECG 12-LEAD 2019-08-[address] [facility] - 18:40:55 [facility] TRANSFUSION SERVICE REPORT - 2019-08-06 Provider, Default [facility] - SCAN 18:02:31 Scanning [facility] CBC (HEMOGRAM ONLY) 2019-08-06 [facility]onal[facility] Johnson [facility] - 18:01:00 [facility] TRANSFUSE LEUKO-REDUCED RED 2019-08-06 [facility], Ronaldo Matthew [facility] - BLOOD CELLS 14:47:50 [facility] XR ABDOMEN / KUB 1 VIEW 2019-08-06 [facility] 12:12:00 [facility] 2D ECHO W/ DOPPLER 2019-08-06 [facility] - (CW/PW/COLOR) 11:06:44 [facility] SODIUM, RANDOM URINE 2019-08-06 [facility] Johnson [facility] - 09:53:00 [facility] CHLORIDE, RANDOM URINE 2019-08-06 [facility] Ronaldo Johnson [facility] - 09:53:00 [facility] CREATININE, RANDOM URINE 2019-08-06 [facility], Ronaldo Johnson [facility] - 09:53:00 [facility] POTASSIUM, RANDOM URINE 2019-08-06 [facility] Johnson [facility] - 09:53:00 [facility] UREA NITROGEN, RANDOM URINE 2019-08-06 [facility], Ronaldo Matthew [facility] - 09:53:00 [facility] UPPER ENDOSCOPY 2019-08-06 Neo [place] Meghan [facility] - 08:00:00 [facility] TROPONIN I 2019-08-[address] [facility] - 05:56:00 [facility] CBC W/PLT COUNT & AUTO 2019-08-[address] [facility] - DIFFERENTIAL 05:55:00 [facility] POCT-GLUCOSE METER 2019-08-06 Aurora Melton [address]ikh [facility] - 05:51:00 [facility] TRANSFUSE LEUKO-REDUCED RED 2019-08-[address] [facility] - BLOOD CELLS 04:31:28 [facility] LACTIC ACID, VENOUS 2019-08-[address] [facility] - 03:38:00 [facility] BASIC METABOLIC PANEL (7) 2019-08-[address] [facility] - 03:38:00 [facility] MAGNESIUM 2019-08-[address] [facility] - 03:38:00 [facility] PHOSPHORUS 2019-08-[address] [facility] - 03:38:00 [facility] URINE CULTURE 2019-08-06 Landeros [address] [facility] - 02:03:00 [facility] URINALYSIS W/ REFLEX URINE 2019-08-06 Tigre Arley Edith [facility] - CULTURE 02:03:00 [facility] ECG 12-LEAD 2019-08-[address] Tigre [address]arma [facility] - 01:40:01 [facility] LACTIC ACID, VENOUS 2019-08-[address] [facility] - 23:48:00 [facility] BASIC METABOLIC PANEL (7) 2019-08-05 Tigre [address]arma [facility] - 23:48:00 [facility] TROPONIN I 2019-08-05 Tigre [address]arma [facility] - 23:48:00 [facility] CBC W/PLT COUNT & AUTO 2019-08-[address] [facility] - DIFFERENTIAL 23:48:00 [facility] XR CHEST 1 VIEW 2019-08-05 Rl, Chayniels [facility] - PORTABLE/BEDSIDE 23:40:00 [facility] ECG 12-LEAD 2019-08-05 Unknown, Hl7 [facility] - 21:37:33 [facility] BLOOD CULTURE 2019-08-05 Tigre Arley Edith [facility] - 21:05:00 [facility] AMMONIA 2019-08-05 Tigre Arley Edith [facility] - 20:54:00 [facility] BLOOD CULTURE 2019-08-05 Tigre Arley Sharma [facility] - 20:52:00 [facility] XR CHEST 1 VIEW 2019-08-05 Tigre Arley Edith [facility] - PORTABLE/BEDSIDE 20:48:00 [facility] APTT 2019-08-[address] [facility] - 20:12:00 [facility] Center COMPREHENSIVE METABOLIC 2019-08-05 Tigre [address] [facility] - PANEL 20:12:00 [facility] PROTHROMBIN TIME/INR 2019-08-[address] [facility] - 20:12:00 [facility] TROPONIN I 2019-08-05 Tigre Arley Edith [facility] - 20:12:00 [facility] Center LACTIC ACID, VENOUS 2019-08-05 Tigre Arley Edith [facility] - 20:11:00 [facility] THROMBOELASTOGRAPH (TEG) 2019-08-05 Tigre Arley Sharma [facility] - 20:11:00 [facility] TYPE AND SCREEN, AUTOMATED 2019-08-05 Tigre Arley [facility]arma [facility] - 20:11:00 [facility] CBC W/PLT COUNT & AUTO 2019-08-05 Tigre Arley Sharma [facility] - DIFFERENTIAL 20:11:00 [facility] BASIC METABOLIC PANEL (7) 2019-02-[address] [facility] - 12:51:00 [facility] HEPATIC FUNCTION PANEL 2019-02-22 [address] [facility] - 12:51:00 [facility] Center PROTHROMBIN TIME/INR 2019-02-[address] [facility] - 12:51:00 [facility] CBC W/PLT COUNT & AUTO 2019-02-[address] [facility] - DIFFERENTIAL 12:51:00 [facility] RHYTHM STRIP - SCAN 2019-02-15 Provider, Default [facility] - 12:12:18 Scanning [facility] REPORT OF PROCEDURE - 2019-02-14 Provider, Default [facility] ENDOSCOPY SCAN 12:40:23 Scanning [facility] RHYTHM STRIP - SCAN 2019-02-14 Provider, Default [facility] - 12:40:21 Scanning [facility] ECHOCARDIOGRAM REPORT - SCAN 2019-02-13 Provider, Default [facility] - 21:21:09 Scanning [facility] TRANSFUSION SERVICE REPORT - 2019-02-13 Provider, Default [facility] - SCAN 18:02:02 Scanning [facility] MR ABDOMEN WITH & WITHOUT IV 2019-02-[address] [facility] - CONTRAST 13:32:00 [facility] POCT-GLUCOSE METER 2019-02-[address] [facility] - 10:29:00 [facility] POCT-GLUCOSE METER 2019-02-[address] [facility] - 07:09:00 [facility] BASIC METABOLIC PANEL (7) 2019-02-13 Kamaljit Zhao, Yareli [facility] - 05:03:00 [facility] HEPATIC FUNCTION PANEL 2019-02-13 [facility], Yareli [facility] - 05:03:00 [facility] PT/APTT 2019-02-13 [facility], Yareli [facility] - 05:03:00 [facility] PROTHROMBIN TIME/INR 2019-02-13 [facility], [facility]li [facility] - 05:03:00 [facility] CBC (HEMOGRAM ONLY) 2019-02-[address] [facility] - 05:03:00 [facility] PREPARE LEUKO-REDUCED RBC 2019-02-12 [facility], Yareli [facility] - 23:54:00 [facility] POCT-GLUCOSE METER 2019-02-[address] [facility] - 21:07:00 [facility] TRANSFUSION SERVICE REPORT - 2019-02-12 Provider, Default [facility] - SCAN 18:03:07 Scanning [facility] 2D ECHO W/ DOPPLER 2019-02-12 [facility] (CW/PW/COLOR) 17:35:31 [facility] REPORT OF PROCEDURE - 2019-02-[address] [facility] - ENDOSCOPY URL 17:07:14 [facility] POCT-GLUCOSE METER 2019-02-[address] [facility] - 15:53:00 [facility] POCT-GLUCOSE METER 2019-02-[address] [facility] - 12:26:00 [facility] POCT-GLUCOSE METER 2019-02-[address] [facility] [facility] - 10:18:00 [facility] UPPER ENDOSCOPY 2019-02-[address] [facility] - 09:00:00 [facility] BASIC METABOLIC PANEL (7) 2019-02-12 Guillermina Churchill, Yareli [facility] - 04:43:00 [facility] HEPATIC FUNCTION PANEL 2019-02-12 Guillermina Churchill, Yareli [facility] - 04:43:00 [facility] PT/APTT 2019-02-12 Guillermina Churchill, Y[facility]li [facility] - 04:43:00 [facility] PROTHROMBIN TIME/INR 2019-02-12 Kamaljit Zhao, [facility]li [facility] - 04:43:00 [facility] MAGNESIUM 2019-02-12 Kamaljit Zhao, Y[facility]li [facility] - 04:43:00 [facility] PHOSPHORUS 2019-02-12 Guillermina Churchill, Yareli [facility] - 04:43:00 [facility] CBC (HEMOGRAM ONLY) 2019-02-[address] [facility] - 04:43:00 [facility] IRON, TIBC, % SAT. (WITHOUT 2019-02-[address] [facility] - FERRITIN) 04:43:00 [facility] FERRITIN 2019-02-[address] [facility] - 04:43:00 [facility] ALPHA FETOPROTEIN (AFP), 2019-02-[address] [facility] - TUMOR MARKER 04:43:00 [facility] HEPATITIS A ANTIBODY, IGG 2019-02-[address] [facility] - 18:10:00 [facility] HEMOGLOBIN AND HEMATOCRIT 2019-02-[address] [facility] - 14:18:00 [facility] TRANSFUSE LEUKO-REDUCED RED 2019-02-11 Kamaljit Zhao, Charli a [facility] - BLOOD CELLS 13:35:37 [facility] TROPONIN I 2019-02-11 Kamaljit Zhao, Yareli [facility] - 08:13:00 [facility] US ABDOMINAL WITH DOPPLER 2019-02-11 Yanirabradley Paulettetomeka, Yareli [facility] - 07:59:00 [facility] TRANSFUSE LEUKO-REDUCED RED 2019-02-11 [facility] Charli beach [facility] - BLOOD CELLS 06:10:20 [facility] AMMONIA 2019-02-[address] [facility] - 01:23:00 [facility] TROPONIN I 2019-02-[address] [facility] - 00:34:00 [facility] BASIC METABOLIC PANEL (7) 2019-02-11 [facility] Churchill [facility] - 00:34:00 [facility] HEPATIC FUNCTION PANEL 2019-02-11 [facility] Churchill [facility] - 00:34:00 [facility] PT/APTT 2019-02-11 [facility] Churchill [facility] - 00:34:00 [facility] PROTHROMBIN TIME/INR 2019-02-11 [facility] 00:34:00 [facility] MAGNESIUM 2019-02-11 [facility] Churchill [facility] - 00:34:00 [facility] PHOSPHORUS 2019-02-11 [facility] Churchill [facility] - 00:34:00 [facility] TYPE AND SCREEN, AUTOMATED 2019-02-11 [facility] Churchill [facility] - 00:34:00 [facility] CBC W/PLT COUNT & AUTO 2019-02-11 [facility] - DIFFERENTIAL 00:34:00 [facility] XR CHEST 2 VIEWS 2019-02-10 [facility] - 22:35:00 [facility] URINALYSIS W/ REFLEX URINE 2019-02-[address] [facility] - CULTURE 22:17:00 [facility] BLOOD CULTURE 2019-02-10 Kamaljit Yareli Churchill [facility] - 22:15:00 [facility] BLOOD CULTURE 2019-02-10 Kamaljit Yareli Churchill [facility] - 22:10:00 [facility] COMPREHENSIVE METABOLIC 2019-02-10 [facility] - PANEL 22:10:00 [facility] PROTHROMBIN TIME/INR 2019-02-10 [facility], [facility] - 22:10:00 [facility] APTT 2019-02-10 [facility], Yareli [facility] - 22:10:00 [facility] TROPONIN I 2019-02-10 [facility], Yareli [facility] - 22:10:00 [facility] ALPHA FETOPROTEIN (AFP), 2019-02-10 [facility] 22:10:00 [facility] CBC W/PLT COUNT & AUTO 2019-02-10 [facility], Yareli [facility] - DIFFERENTIAL 22:10:00 [facility] (CELLAVISION MANUAL DIFF) 2019-02-10 [facility], Yareli [facility] - 22:10:00 [facility] POCT-GLUCOSE METER 2019-02-10 [facility], Yareli [facility] - 21:23:00 [facility] Results Test Description Test Time Test Comments Results Result Sourc e Comments Treadmill 2019-09-14 Interface, External [facility] tolerance(Non-Nuc 11:46:17 Ris In - 09/14/2019 - Medical lear Treadmill) 11:46 AM Center CSTProtocol Name Regadenoson Time In Exercise Phase 00:01:00 Max. Systolic BP 109 mmHgMax Diastolic BP 26 mmHgMax Heart Rate 80 BPMMax Predicted Heart Rate 142 BPMReason For Termination Predetermined end point Reason for Test Abnormal cardiac biomarkers,Ischemia Evaluation Target HR Formula (220 - Age)*100% Arrhythmias ventricular premature beats atrial premature beatsResting ECG Normal sinus rhythm 1st Degree AV block,PAC's,PVCLeft Atrial AbnormalityST Changes Inferolateral ST Depression Up Sloping <1mmOverall Impression Indeterminate due to pharmacological stress Chest Pain none HR Response To Exercise BP Response To Exercise asa,atorvastatinCon firmed by fellow Matthew Perry ([id number]) on 08/16/2019 9:51:46 AMConfirmed by MD DEWEY, JEMMA ([id number]) on 09/14/2019 11:46:12 AM POC-Glucose meter 2019-08-18 12:45:00 Test Item Value Reference Range Interpretation Comme nts POC-Glucose Meter (test code = 158 mg/dL 70-110 H : [facility] [address] [facility] [address]) [facility], [address]: Specialized Language Instructor/Techni lg ID = [id number] for MCINTYRE, ROLAND Lab Interpretation (test code = Abnormal 87239-6) [facility] [id number] 12:45:00 Test Item Value Reference Range Interpretation Comments POC-GLUCOSE METER 158 mg/dL 70-110 H : [facility] (BEAKER) (test code = CHANG Arredondo [facility], 1538) [address]: Specialized Language Instructor/Techni lg ID = [id number] for RA GABRIEL, ROLAND POCT-GLUCOSE [id number] 08:32:00 Test Item Value Reference Range Interpretation Comments POC-GLUCOSE METER 106 mg/dL 70-110 : [facility] (BEAKER) (test code = DAWNDE Maria Elena [facility], 1538) [address]: Specialized Language Instructor/Techni lg ID = [id number] for RA MOS, ROLAND Basic Metabolic [id number] 06:08:00 Test Item Value Reference Range Interpretation Comments Sodium (test code = 138 meq/L 136-175 0924-2) Potassium (test code = 3.9 meq/L 3.5-5.1 2823-3) Chloride (test code = 112 meq/L 98-107 H 5-0) CO2 (test code = 20 meq/L 22-29 L 8-9) BUN (test code = 7 mg/dL 7-21 3094-0) Creatinine (test code 0.58 mg/dL 0.57-1.25 = 2160-0) Glucose (test code = 100 mg/dL 70-105 2345-7) Calcium (test code = 7.5 mg/dL 8.4-10.2 L 83135-2) EGFR (test code = 136 mL/min/1.73 [place] [address]-5) NOT ACCURATE CREATININE CLEARANCE IN PREDICTING GLOMERULAR FILTRATION RATE . ESTIMATED GFR I S NOT APPLICABLE FOR DIALYSIS PATIENTS. GINA (test code = GINA) Specialized Language Instructor ID - BS Lab Interpretation Abnormal (test code = 86415-0) [facility]OLIC [id number] 06:08:00 Test Item Value Reference Range Interpretation Comments SODIUM (BEAKER) 138 meq/L 136-145 (test code = 381) POTASSIUM (BEAKER) 3.9 meq/L 3.5-5.1 (test code = 379) CHLORIDE (BEAKER) 112 meq/L 98-107 H (test code = 382) CO2 (BEAKER) (test 20 meq/L 22-29 L code = 355) BLOOD UREA NITROGEN 7 mg/dL 7-21 (BEAKER) (test code = 354) CREATININE (BEAKER) 0.58 mg/dL 0.57-1.25 (test code = 358) GLUCOSE RANDOM 100 mg/dL 70-105 (BEAKER) (test code = 652) CALCIUM (BEAKER) 7.5 mg/dL 8.4-10.2 L (test code = 697) EGFR (BEAKER) (test 136 mL/min/1.73 ESTIM ATED GFR IS code = 1092) sq m NOT ACCURATE CREATININE CLEARANCE IN PREDICTING GLOMERULAR FILTRATION RATE . ESTIMATED GFR I S NOT APPLICABLE FOR DIALYSIS PATIEN TS. Specialized Language Instructor ID - [id number] 06:07:00 Test Item Value Reference Range Interpretation Comments Magnesium (test code = 1.6 mg/dL 1.6-2.6 57047-9) GINA (test code = GINA) Specialized Language Instructor ID - BS Lab Interpretation (test Normal code = 54489-8) [facility] [id number] 06:07:00 Test Item Value Reference Range Interpretation Comments MAGNESIUM (BEAKER) (test code = 1.6 mg/dL 1.6-2.6 627) Specialized Language Instructor ID - BSCBC with platelet count + automated [id number] 04:57:00 Test Item Value Reference Range Interpretation Comments WBC (test code = 6690-2) 2.7 3.5- 10.5 K/L L RBC (test code = 789-8) 2.44 4.63- 6.08 M/L L MCHC (test code = 786-4) 30.8 32.3- 36.5 GM/DL L Hematocrit (test code = 4544-3) 23.4 % 40.1-51 L MCV (test code = 787-2) 95.9 fL 79-92.2 H MCH (test code = 785-6) 29.5 pg 25.7-32.2 RDW (test code = 788-0) 20.5 % 11.6-14.4 H Platelets (test code = 777-3) 68 150- 450 K/CU MM L MPV (test code = 58641-1) 10.2 fL 9.4-12.4 nRBC (test code = 413) 0 0- 0 /100 WBC % Neutros (test code = 429) 40 % % Lymphs (test code = 430) 35 % % Monos (test code = 431) 18 % % Eos (test code = 432) 7 % % Baso (test code = 437) 0 % # Neutros (test code = 670) 1.05 1.78- 5.38 K/L L # Lymphs (test code = 414) 0.93 1.32- 3.57 K/L L # Monos (test code = 415) 0.47 0.30- 0.82 K/L # Eos (test code = 416) 0.18 0.04- 0.54 K/L # Baso (test code = 417) 0.01 0.01- 0.08 K/L Immature Granulocytes-Relative 0 % 0-1 (test code = 2801) Lab Interpretation (test code = Abnormal 24060-5) [facility] W/PLT COUNT & AUTO [id number] 04:57:00 Test Item Value Reference Range Interpretation Comments WHITE BLOOD CELL COUNT (BEAKER) 2.7 K/ L 3.5-10.5 L (test code = 775) RED BLOOD CELL COUNT (BEAKER) 2.44 M/ L 4.63-6.08 L (test code = 761) HEMOGLOBIN (BEAKER) (test code = 7.2 GM/DL 13.7-17.5 L 410) HEMATOCRIT (BEAKER) (test code = 23.4 % 40.1-51.0 L 411) MEAN CORPUSCULAR VOLUME (BEAKER) 95.9 fL 79.0-92.2 H (test code = 753) MEAN CORPUSCULAR HEMOGLOBIN 29.5 pg 25.7-32.2 (BEAKER) (test code = 751) MEAN CORPUSCULAR HEMOGLOBIN CONC 30.8 GM/DL 32.3-36.5 L (BEAKER) (test code = 752) RED CELL DISTRIBUTION WIDTH 20.5 % 11.6-14.4 H (BEAKER) (test code = 412) PLATELET COUNT (BEAKER) (test code 68 K/CU MM 150-450 L = 756) MEAN PLATELET VOLUME (BEAKER) 10.2 fL 9.4-12.4 (test code = 754) NUCLEATED RED BLOOD CELLS (BEAKER) 0 /100 WBC 0-0 (test code = 413) NEUTROPHILS RELATIVE PERCENT 40 % (BEAKER) (test code = 429) LYMPHOCYTES RELATIVE PERCENT 35 % (BEAKER) (test code = 430) MONOCYTES RELATIVE PERCENT 18 % (BEAKER) (test code = 431) EOSINOPHILS RELATIVE PERCENT 7 % (BEAKER) (test code = 432) BASOPHILS RELATIVE PERCENT 0 % (BEAKER) (test code = 437) NEUTROPHILS ABSOLUTE COUNT 1.05 K/ L 1.78-5.38 L (BEAKER) (test code = 670) LYMPHOCYTES ABSOLUTE COUNT 0.93 K/ L 1.32-3.57 L (BEAKER) (test code = 414) MONOCYTES ABSOLUTE COUNT (BEAKER) 0.47 K/ L 0.30-0.82 (test code = 415) EOSINOPHILS ABSOLUTE COUNT 0.18 K/ L 0.04-0.54 (BEAKER) (test code = 416) BASOPHILS ABSOLUTE COUNT (BEAKER) 0.01 K/ L 0.01-0.08 (test code = 417) IMMATURE GRANULOCYTES-RELATIVE 0 % 0-1 PERCENT (BEAKER) (test code = 2801) POCT-GLUCOSE [id number] 21:24:00 Test Item Value Reference Range Interpretation Comments POC-GLUCOSE METER 116 mg/dL 70-110 H : TESTED A T [facility] [address] (BEAKER) (test code = CHANG WILD MD, 1538) [address]: Specialized Language Instructor/Techni lg ID = [id number] for RAISA SANCHES POCT-GLUCOSE [id number] 16:41:00 Test Item Value Reference Range Interpretation Comments POC-GLUCOSE METER 127 mg/dL 70-110 H : TESTED A T [facility] [address] (BEAKER) (test code = [facility], 1538) [address]: Specialized Language Instructor/Techni lg ID = [id number] for Aneta Huston POCT-GLUCOSE [id number] 12:57:00 Test Item Value Reference Range Interpretation Comments POC-GLUCOSE METER 136 mg/dL 70-110 H : TESTED A T [facility] 6720 (BEAKER) (test code = [facility], 1538) 00590: Specialized Language Instructor/Techni lg ID = [id number] for Aneta Huston POCT-GLUCOSE [id number] 08:38:00 Test Item Value Reference Range Interpretation Comments POC-GLUCOSE METER 103 mg/dL 70-110 : TESTED A T [facility] 6720 (BEAKER) (test code = [facility], 1538) 60686: Specialized Language Instructor/Techni lg ID = [id number] for Aneta Huston ANTI-MITOCHONDRIAL AB, REFLEX TO [id number] 07:53:00 Test Item Value Reference Range Interpretation Comments SCAN RESULT (test code = 8538377) Anti-Mitochondrial Ab, reflex to [id number] 07:53:00Scan ResultQUEST DIAGNOSTIC [facility] METABOLIC PANEL 2019-08-17 05:06:00 Test Item Value Reference Range Interpretation Comments SODIUM (BEAKER) 138 meq/L 136-145 (test code = 381) POTASSIUM (BEAKER) 3.8 meq/L 3.5-5.1 (test code = 379) CHLORIDE (BEAKER) 113 meq/L 98-107 H (test code = 382) CO2 (BEAKER) (test 23 meq/L 22-29 code = 355) BLOOD UREA NITROGEN 7 mg/dL 7-21 (BEAKER) (test code = 354) CREATININE (BEAKER) 0.60 mg/dL 0.57-1.25 (test code = 358) GLUCOSE RANDOM 108 mg/dL 70-105 H (BEAKER) (test code = 652) CALCIUM (BEAKER) 7.7 mg/dL 8.4-10.2 L (test code = 697) EGFR (BEAKER) (test 130 mL/min/1.73 ESTIM ATED GFR IS code = 1092) sq m NOT ACCURATE CREATININE CLEARANCE IN PREDICTING GLOMERULAR FILTRATION RATE . ESTIMATED GFR I S NOT APPLICABLE FOR DIALYSIS PATIEN TS. Specialized Language Instructor ID - LETITIA [id number] 04:59:00 Test Item Value Reference Range Interpretation Comments MAGNESIUM (BEAKER) (test code = 1.7 mg/dL 1.6-2.6 627) Specialized Language Instructor ID - LETITIA [facility]BC W/PLT COUNT & AUTO [id number] 04:22:00 Test Item Value Reference Range Interpretation Comments WHITE BLOOD CELL COUNT (BEAKER) 3.1 K/ L 3.5-10.5 L (test code = 775) RED BLOOD CELL COUNT (BEAKER) 2.56 M/ L 4.63-6.08 L (test code = 761) HEMOGLOBIN (BEAKER) (test code = 7.6 GM/DL 13.7-17.5 L 410) HEMATOCRIT (BEAKER) (test code = 24.4 % 40.1-51.0 L 411) MEAN CORPUSCULAR VOLUME (BEAKER) 95.3 fL 79.0-92.2 H (test code = 753) MEAN CORPUSCULAR HEMOGLOBIN 29.7 pg 25.7-32.2 (BEAKER) (test code = 751) MEAN CORPUSCULAR HEMOGLOBIN CONC 31.1 GM/DL 32.3-36.5 L (BEAKER) (test code = 752) RED CELL DISTRIBUTION WIDTH 20.8 % 11.6-14.4 H (BEAKER) (test code = 412) PLATELET COUNT (BEAKER) (test code 70 K/CU MM 150-450 L = 756) MEAN PLATELET VOLUME (BEAKER) 10.2 fL 9.4-12.4 (test code = 754) NUCLEATED RED BLOOD CELLS (BEAKER) 0 /100 WBC 0-0 (test code = 413) NEUTROPHILS RELATIVE PERCENT 39 % (BEAKER) (test code = 429) LYMPHOCYTES RELATIVE PERCENT 34 % (BEAKER) (test code = 430) MONOCYTES RELATIVE PERCENT 19 % (BEAKER) (test code = 431) EOSINOPHILS RELATIVE PERCENT 6 % (BEAKER) (test code = 432) BASOPHILS RELATIVE PERCENT 1 % (BEAKER) (test code = 437) NEUTROPHILS ABSOLUTE COUNT 1.22 K/ L 1.78-5.38 L (BEAKER) (test code = 670) LYMPHOCYTES ABSOLUTE COUNT 1.07 K/ L 1.32-3.57 L (BEAKER) (test code = 414) MONOCYTES ABSOLUTE COUNT (BEAKER) 0.60 K/ L 0.30-0.82 (test code = 415) EOSINOPHILS ABSOLUTE COUNT 0.19 K/ L 0.04-0.54 (BEAKER) (test code = 416) BASOPHILS ABSOLUTE COUNT (BEAKER) 0.02 K/ L 0.01-0.08 (test code = 417) IMMATURE GRANULOCYTES-RELATIVE 0 % 0-1 PERCENT (BEAKER) (test code = 2801) POCT-GLUCOSE [id number] 00:19:00 Test Item Value Reference Range Interpretation Comments POC-GLUCOSE METER 134 mg/dL 70-110 H : [facility] (BEGAY[facility] (test code = [facility] Ar[facility]ondo [facility], 1538) 48792: Specialized Language Instructor/Techni lg ID = [id number] for Whitney Beverly Mitochondrial Ab [id number] 18:43:00 Test Item Value Reference Range Interpretation Comments Anti-Mitocho NEGATIVE NEGATIVE This test was developed nd Abs (test and its analyti masoud code = performance 7372021) characteristics havebeen determined by [facility].It h as not been cleared or approved by FDA. This as say has been validatedp ursuant to the CLIA reg ulations and is used for clinical purposes. GINA (test Performing Lab code = GINA) [facility] [address] [place] [address] Rosemarie Mills MD, PhD, FINA [facility] CenterMitochondrial Ab [id number] 18:43:00 Test Item Value Reference Range Interpretation Comments Mitochondrial Ab TNP <1:20 Test Not Titer (test code = Performed . 7113218) Screening test Negative or Not Detected. Titer notperformed. GINA (test code = Performing Lab GINA) EZ [employer] [facility] [address] [place] [address] Rosemarie Mills MD, PhD, FINA [facility] CenterPOCT-GLUCOSE [id number] 18:33:00 Test Item Value Reference Range Interpretation Comments POC-GLUCOSE METER 85 mg/dL 70-110 : TESTED A T [facility] 6720 (BEAKER) (test code = [facility] Maria Elena [facility], 1538) 16831: Specialized Language Instructor/Techni lg ID = [id number] for SHARATH SIERRA POCT-GLUCOSE [id number] 18:32:00 Test Item Value Reference Range Interpretation Comments POC-GLUCOSE METER 104 mg/dL 70-110 : TESTED A T [facility] 6720 (BEAKER) (test code = [facility] Maria Elena [facility], 1538) 75308: Specialized Language Instructor/Techni lg ID = [id number] for SHARATH DIOP POCT-GLUCOSE [id number] 17:33:00 Test Item Value Reference Range Interpretation Comments POC-GLUCOSE METER 109 mg/dL 70-110 : TESTED A T [facility] 6720 (BEAKER) (test code = [facility] Maria Elena [facility], 1538) 35306: Specialized Language Instructor/Techni lg ID = [id number] for SHARATH DIOP [id number] 14:37:00 Test Item Value Reference Range Interpretation Comments Ceruloplasmin (test 23 mg/dL 18-36 Adults: code = 6328588) Males: 1 8-36 mg/dL Females: 18-53 mg/dL Pediatrics: Males (mg/dL) Females (mg/dL)-------- - -- 0-30 Days 8-25 3-28 31 Days-11 Month 15-48 15-43 1-3 Years 25-56 29-54 4-6 Year s 29-5 6 26-5 4 7-9 Years 25-52 23-48 10-12 Years 21-51 21-48 13-1 5 Years 20-50 21-46 16-18 Years 20-45 22-50 The pediatric range s are derived fro m the following criteria: Alan ADAMS, Rebecca LITTLEJOHN, Tasia Escoto et al Pediatric reference range s for Fipd-4-Ihmzjele b ulin and ceruloplasmin. Clin. Chem 1997 ; 43:S1999 Pediatric Reference Ranges, 2nd., S F Alanet al. editors. [employer], [place], [place] 1997. GINA (test code = Performing Lab GINA) *[facility] [employer] [facility], [id number] [place] [id number] Tigist Ramirez MD, PhD [facility] CenterECG 12 [id number] 13:51:08Interface, External Ris In - 08/16/2019 1:51 PM CSTVentricular Rate 69 BPMAtrial Rate 69 BPMP-R Interval 230 msQRS Duration 98 msQ-T Interval 422 msQTC Calculation(Bazett) 452 msP Anderson 77 degreesR Anderson 66 degreesT Anderson 72 degreesSinus rhythm with 1st degree A-V blockOtherwise normal ECG11 Jul 2019QT has shortenedConfirmed by MD KACIE, REKHA ([id number]) on 08/16/2019 1:51:05 [facility] PET, CARDIAC PERFUSION MULTIPLE STUDIES, REST AND [id number] 13:09:00 Reason for exam:->abnormal cardiac biomarkers; risk stratificationFINAL REPORT PROCEDURE: MYOCARDIAL PERFUSION PET IMAGING (Rest/Stress)CPT CODE: 87685 INDICATION: Define extent/severity of known CAD, risk [...] FINDINGS:HR: 68/minBP: 123/40 mmHgPrelim. EKG: Normal sinus rhythm, first-degree AV block, PVCs, PACs.Perfusion: There is [...] segments.Wall Motion: Not significantly changed from rest (LVEF 69%).LV Volume: Not significantly changed from rest. IMPRESSION:1. Abnormal study.2. Abnormal myocardial perfusion. There is a medium size, marked severity, mostly reversible perfusion abnormality in the apical LV.3. Normal resting LVEF, which does not deteriorate with pharmacologic stress.4. Normal extracardiac tracer distribution.5. There is no prior study for comparison. Signed: Tiffanie Mcdaniels MDReport Verified Date/Time: 08/16/2019 13:09:56 Reading Location: [place] [id number] Reading Room NM myocardial perfusion PET (rest and stress)2019-08-16 13:09:00Interface, External Ris In - 08/16/2019 1:12 PM CSTFINAL REPORT PROCEDURE: MYOCARDIAL PERFUSION PET IMAGING (Rest/Stress)CPT CODE: 39945 INDICATION: Define extent/severity of known CAD, risk [...] correction. 40.0 mCi of Rb-82 chloride was injectedintravenously at rest, and gated PET images were obtained. Then, 40.0 mCi of Rb-82 chloride was injected intravenously at peak stress, and gated PET images were obtained. Image quality is good. REST FINDINGS:HR: 68/minBP: 123/40 mmHgPrelim. EKG: Normal sinus rhythm, first-degree AV block, PVCs, PACs.Perfusion: There is a mild severity perfusion defect of the apical inferior and apical segments.Wall Motion: Normal (LVEF 73%).LV Volume: Normal.RV Volume: Normal. STRESS FINDINGS:HR: 80/min (56% of MPHR)BP: 109/26 mmHgPrelim. EKG: Less than [address] depressions inferolaterally, PACs, PVCs.Symptoms: None (treatment not required).Perfusion: There is a marked severity perfusion defect of the apical inferior, apical lateral, and apical segments.Wall Motion: Not significantly changed from rest (LVEF 69%).LV Volume: Not significantly changed from rest. IMPRESSION:1. Abnormal study.2. Abnormal myocardial perfusion. There is a medium size, marked severity, mostly reversible perfusion abnormality in the apical LV.3. Normal resting LVEF, which does not deteriorate with pharmacologic stress.4. Normal extracardiac tracer distribution.5. There is no prior study for comparison. Signed: Tiffanie Mcdaniels MDReport Verified Date/Time: 08/16/2019 13:09:56 Reading Location: [address] Reading Room [facility]PO[facility] [id number] 11:57:00 Test Item Value Reference Range Interpretation Comments POC-GLUCOSE METER 96 mg/dL 70-110 : TESTED A T [facility] 6720 (BEAKER) (test code = [facility], 1538) 25626: Specialized Language Instructor/Techni lg ID = [id number] for KAEL JOHNSON POCT-GLUCOSE [id number] 06:45:00 Test Item Value Reference Range Interpretation Comments POC-GLUCOSE METER 168 mg/dL 70-110 H : TESTED A T [facility] 6720 (BEAKER) (test code = [facility], 1538) 65018: Specialized Language Instructor/Techni lg ID = [id number] for Be shaan Ilcibezbigniew BASIC METABOLIC [id number] 06:11:00 Test Item Value Reference Range Interpretation Comments SODIUM (BEAKER) 139 meq/L 136-145 (test code = 381) POTASSIUM (BEAKER) 3.7 meq/L 3.5-5.1 (test code = 379) CHLORIDE (BEAKER) 113 meq/L 98-107 H (test code = 382) CO2 (BEAKER) (test 23 meq/L 22-29 code = 355) BLOOD UREA NITROGEN 6 mg/dL 7-21 L (BEAKER) (test code = 354) CREATININE (BEAKER) 0.59 mg/dL 0.57-1.25 (test code = 358) GLUCOSE RANDOM 83 mg/dL 70-105 (BEAKER) (test code = 652) CALCIUM (BEAKER) 7.6 mg/dL 8.4-10.2 L (test code = 697) EGFR (BEAKER) (test 133 mL/min/1.73 ESTIM ATED GFR IS code = 1092) sq m NOT ACCURATE CREATININE CLEARANCE IN PREDICTING GLOMERULAR FILTRATION RATE . ESTIMATED GFR I S NOT APPLICABLE FOR DIALYSIS PATIEN TS. Specialized Language Instructor ID - LATroponin [id number] 05:56:00 Test Item Value Reference Range Interpretation Comments Troponin I (test code = 0.07 ng/mL 0-0.03 H 02071-7) GINA (test code = GINA) Troponin I (TnI) levels must be interpreted [...] failure, acidosis, acute neurological disease, and persistent tachyarrhythmia.Opera tor ID - [place] Lab Interpretation (test Abnormal code = 78522-6) [facility] CenterTROPONIN [id number] 05:56:00 Test Item Value Reference Range Interpretation Comments TROPONIN I (BEAKER) (test code = 0.07 ng/mL 0.00-0.03 H 397) Troponin I (TnI) levels must be interpreted [...] failure, acidosis, acute neurological disease, and persistent tachyarrhythmia.Specialized Language Instructor ID - [id number] 05:49:00 Test Item Value Reference Range Interpretation Comments MAGNESIUM (BEAKER) (test code = 1.8 mg/dL 1.6-2.6 627) Specialized Language Instructor ID - LACBC W/PLT COUNT & AUTO [id number] 05:14:00 Test Item Value Reference Range Interpretation Comments WHITE BLOOD CELL COUNT (BEAKER) 3.0 K/ L 3.5-10.5 L (test code = 775) RED BLOOD CELL COUNT (BEAKER) 2.57 M/ L 4.63-6.08 L (test code = 761) HEMOGLOBIN (BEAKER) (test code = 7.6 GM/DL 13.7-17.5 L 410) HEMATOCRIT (BEAKER) (test code = 24.5 % 40.1-51.0 L 411) MEAN CORPUSCULAR VOLUME (BEAKER) 95.3 fL 79.0-92.2 H (test code = 753) MEAN CORPUSCULAR HEMOGLOBIN 29.6 pg 25.7-32.2 (BEAKER) (test code = 751) MEAN CORPUSCULAR HEMOGLOBIN CONC 31.0 GM/DL 32.3-36.5 L (BEAKER) (test code = 752) RED CELL DISTRIBUTION WIDTH 20.6 % 11.6-14.4 H (BEAKER) (test code = 412) PLATELET COUNT (BEAKER) (test code 82 K/CU MM 150-450 L = 756) MEAN PLATELET VOLUME (BEAKER) 11.2 fL 9.4-12.4 (test code = 754) NUCLEATED RED BLOOD CELLS (BEAKER) 0 /100 WBC 0-0 (test code = 413) NEUTROPHILS RELATIVE PERCENT 45 % (BEAKER) (test code = 429) LYMPHOCYTES RELATIVE PERCENT 29 % (BEAKER) (test code = 430) MONOCYTES RELATIVE PERCENT 20 % (BEAKER) (test code = 431) EOSINOPHILS RELATIVE PERCENT 5 % (BEAKER) (test code = 432) BASOPHILS RELATIVE PERCENT 0 % (BEAKER) (test code = 437) NEUTROPHILS ABSOLUTE COUNT 1.36 K/ L 1.78-5.38 L (BEAKER) (test code = 670) LYMPHOCYTES ABSOLUTE COUNT 0.89 K/ L 1.32-3.57 L (BEAKER) (test code = 414) MONOCYTES ABSOLUTE COUNT (BEAKER) 0.61 K/ L 0.30-0.82 (test code = 415) EOSINOPHILS ABSOLUTE COUNT 0.16 K/ L 0.04-0.54 (BEAKER) (test code = 416) BASOPHILS ABSOLUTE COUNT (BEAKER) 0.01 K/ L 0.01-0.08 (test code = 417) IMMATURE GRANULOCYTES-RELATIVE 0 % 0-1 PERCENT (BEAKER) (test code = 2801) MR, ABDOMEN, [id number] 16:14:00FINAL REPORT MRI of the abdomen dated [...] Multiple small gallstones are seen. No biliary d ilatation is noted. Pancreas and adrenals are unremarkable. Both kidneys are normal in size and functioning. Trace amount of free fluid is seen in the abdomen. There is trace right pleural effusion andsmall left pleural effusion with bibasilar subsegmental atelectasis. IMPRESSION:1. Cirrhosis with spl enomegaly and portal hypertension.2. No suspicious hepatic mass.3. Trace ascites and bilateral pleural effusion with bibasilar subsegmental atelectasis.4. Cholelithiasis without biliary dilatation. Signed: Kathe Melvin MDReport Verified Date/Time: 08/15/2019 16:14:05 Reading Location: [facility] B1 C013Y CT Body Reading Room MR abdomen without & with IV [id number] 16:14:00Interface, External Ris In - 08/15/2019 4:16 PM CSTFINAL REPORT MRI of the ab domen dated August 14, 2019 Comparison: February 13, 2019 Comment: Multiplanar T1 and T2-weighted images of the abdomen, postcontrast axial and coronal T1- weighted images of the abdomen were obtained. Thestudy is somewhat limited secondary to motion artifact. Liver is cirrhotic in appearance with irregular margins. No enhancing mass is seen in the liver. Spleen is enlarged measuring approximately 14.8 x 5.8 x 13.2 cm. The splenic, superior mesenteric, portal, and hepatic veins are patent. Main portal vein is small in caliber measuring approximately 7 mm in diameter. Enlarged collateral veins are seenin the splenic hilum and left lateroconal fascia. There is splenorenal shunt. Gallbladder is contracted. Multiple small gallstones are seen. No biliary dilatation is noted. Pancreas and adrenals are unremarkable. Both kidneys are normal in size and functioning. Trace amount of free fluid is seen in the abdomen. There is trace right pleural effusion and small left pleural effusion with bibasilar subseg mental atelectasis. IMPRESSION:1. Cirrhosis with splenomegaly and portal hypertension.2. No suspicious hepatic mass.3. Trace ascites and bilateral pleural effusion with bibasilar subsegmental atelectasis.4. Cholelithiasis without biliary dilatation. Signed: Kathe Melvin MDReport Verified Date/Time: 08/15/2019 16:14:05 Reading Location: [address] Body Reading Room [facility] [id number] 12:37:00 Test Item Value Reference Range Interpretation Comments POC-GLUCOSE METER 97 mg/dL 70-110 : TESTED A T [facility] 6720 (BEAKER) (test code = [facility], 153) 29902: Specialized Language Instructor/Techni lg ID = [id number] for SHARATH SIERRA POCT-GLUCOSE [id number] 08:18:00 Test Item Value Reference Range Interpretation Comments POC-GLUCOSE METER 103 mg/dL 70-110 : TESTED A T [facility] 6720 (BEAKER) (test code = [facility], 1538) 32157: Specialized Language Instructor/Techni lg ID = [id number] for SHARATH DIOP BASIC METABOLIC [id number] 06:43:00 Test Item Value Reference Range Interpretation Comments SODIUM (BEAKER) 139 meq/L 136-145 (test code = 381) POTASSIUM (BEAKER) 3.7 meq/L 3.5-5.1 (test code = 379) CHLORIDE (BEAKER) 113 meq/L 98-107 H (test code = 382) CO2 (BEAKER) (test 22 meq/L 22-29 code = 355) BLOOD UREA NITROGEN 6 mg/dL 7-21 L (BEAKER) (test code = 354) CREATININE (BEAKER) 0.60 mg/dL 0.57-1.25 (test code = 358) GLUCOSE RANDOM 96 mg/dL 70-105 (BEAKER) (test code = 652) CALCIUM (BEAKER) 7.6 mg/dL 8.4-10.2 L (test code = 697) EGFR (BEAKER) (test 130 mL/min/1.73 ESTIM ATED GFR IS code = 1092) sq m NOT ACCURATE CREATININE CLEARANCE IN PREDICTING GLOMERULAR FILTRATION RATE . ESTIMATED GFR I S NOT APPLICABLE FOR DIALYSIS PATIEN TS. Specialized Language Instructor ID - PIAYA [id number] 06:33:00 Test Item Value Reference Range Interpretation Comments MAGNESIUM (BEAKER) (test code = 1.5 mg/dL 1.6-2.6 L 627) Specialized Language Instructor ID - PIAYA LCBC W/PLT COUNT & AUTO [id number] 06:08:00 Test Item Value Reference Range Interpretation Comments WHITE BLOOD CELL COUNT (BEAKER) 3.1 K/ L 3.5-10.5 L (test code = 775) RED BLOOD CELL COUNT (BEAKER) 2.50 M/ L 4.63-6.08 L (test code = 761) HEMOGLOBIN (BEAKER) (test code = 7.4 GM/DL 13.7-17.5 L 410) HEMATOCRIT (BEAKER) (test code = 23.8 % 40.1-51.0 L 411) MEAN CORPUSCULAR VOLUME (BEAKER) 95.2 fL 79.0-92.2 H (test code = 753) MEAN CORPUSCULAR HEMOGLOBIN 29.6 pg 25.7-32.2 (BEAKER) (test code = 751) MEAN CORPUSCULAR HEMOGLOBIN CONC 31.1 GM/DL 32.3-36.5 L (BEAKER) (test code = 752) RED CELL DISTRIBUTION WIDTH 20.6 % 11.6-14.4 H (BEAKER) (test code = 412) PLATELET COUNT (BEAKER) (test code 65 K/CU MM 150-450 L = 756) MEAN PLATELET VOLUME (BEAKER) 11.3 fL 9.4-12.4 (test code = 754) NUCLEATED RED BLOOD CELLS (BEAKER) 0 /100 WBC 0-0 (test code = 413) NEUTROPHILS RELATIVE PERCENT 46 % (BEAKER) (test code = 429) LYMPHOCYTES RELATIVE PERCENT 30 % (BEAKER) (test code = 430) MONOCYTES RELATIVE PERCENT 18 % (BEAKER) (test code = 431) EOSINOPHILS RELATIVE PERCENT 5 % (BEAKER) (test code = 432) BASOPHILS RELATIVE PERCENT 1 % (BEAKER) (test code = 437) NEUTROPHILS ABSOLUTE COUNT 1.45 K/ L 1.78-5.38 L (BEAKER) (test code = 670) LYMPHOCYTES ABSOLUTE COUNT 0.95 K/ L 1.32-3.57 L (BEAKER) (test code = 414) MONOCYTES ABSOLUTE COUNT (BEAKER) 0.56 K/ L 0.30-0.82 (test code = 415) EOSINOPHILS ABSOLUTE COUNT 0.15 K/ L 0.04-0.54 (BEAKER) (test code = 416) BASOPHILS ABSOLUTE COUNT (BEAKER) 0.02 K/ L 0.01-0.08 (test code = 417) IMMATURE GRANULOCYTES-RELATIVE 0 % 0-1 PERCENT (BEAKER) (test code = 2801) POCT-GLUCOSE [id number] 21:49:00 Test Item Value Reference Range Interpretation Comments POC-GLUCOSE METER 114 mg/dL 70-110 H : TESTED A T [facility] 6720 (BEAKER) (test code = [facility], 1538) 66757: Specialized Language Instructor/Techni lg ID = [id number] for Whitney Beverly Actin (Smooth Muscle) Antibody, [id number] 18:30:00 Test Item Value Reference Range Interpretation Comments Anti-Smooth <20 See Note: U Reference Range :<20 Muscle Ab NEGATIVE> O R = 20 (test code = POSITIVE Antibo dies 5451499) recognizing act in are the main compon entof smooth muscle antibodies asso ciated withautoimmune liver disease. Actin antibodies aref ound in approximatel y 75% of patients withautoimmune hepatitis (AIH) type 1, approximatel y65% of patients wit h autoimmune cholangitis,ann roxima tely 30% of pat ients with primary biliarycirrhosi s, and approximately 2 % of healthy people. High values are clos gigi correlated with AIH type 1. GINA (test code Performing Lab = GINA) EZ [facility] [address] [place] [address] I Gene REIS, PhD, FINA [facility] CenterPOCT-GLUCOSE [id number] 18:04:00 Test Item Value Reference Range Interpretation Comments POC-GLUCOSE METER 129 mg/dL 70-110 H : TESTED A T [facility] 6720 (BEAKER) (test code = [facility], 1538) 55513: Specialized Language Instructor/Techni lg ID = [id number] for RA MOS, ROLAND POCT-GLUCOSE [id number] 12:56:00 Test Item Value Reference Range Interpretation Comments POC-GLUCOSE METER 122 mg/dL 70-110 H : TESTED A T [facility] 6720 (BEAKER) (test code = [facility], 1538) 00901: Specialized Language Instructor/Techni lg ID = [id number] for RA MOS, ROLAND POCT-GLUCOSE [id number] 08:25:00 Test Item Value Reference Range Interpretation Comments POC-GLUCOSE METER 116 mg/dL 70-110 H : TESTED A T [facility] 6720 (BEAKER) (test code = [facility], 1538) 67999: Specialized Language Instructor/Techni lg ID = [id number] for RA MOS, ROLAND BASIC METABOLIC [id number] 07:09:00 Test Item Value Reference Range Interpretation Comments SODIUM (BEAKER) 138 meq/L 136-145 (test code = 381) POTASSIUM (BEAKER) 3.9 meq/L 3.5-5.1 Specimen slightly (test code = 379) hemolyzed CHLORIDE (BEAKER) 112 meq/L 98-107 H (test code = 382) CO2 (BEAKER) (test 21 meq/L 22-29 L code = 355) BLOOD UREA NITROGEN 8 mg/dL 7-21 (BEAKER) (test code = 354) CREATININE (BEAKER) 0.59 mg/dL 0.57-1.25 Specimen slightly (test code = 358) hemolyzed GLUCOSE RANDOM 91 mg/dL 70-105 (BEAKER) (test code = 652) CALCIUM (BEAKER) 7.7 mg/dL 8.4-10.2 L (test code = 697) EGFR (BEAKER) (test 133 mL/min/1.73 ESTIM ATED GFR IS code = 1092) sq m NOT ACCURATE CREATININE CLEARANCE IN PREDICTING GLOMERULAR FILTRATION RATE . ESTIMATED GFR I S NOT APPLICABLE FOR DIALYSIS PATIEN TS. Specialized Language Instructor ID - GRIS [id number] 06:59:00 Test Item Value Reference Range Interpretation Comments MAGNESIUM (BEAKER) 1.6 mg/dL 1.6-2.6 Specimen slightly (test code = 627) hemolyzed Specialized Language Instructor ID - GRIS LType and screen, [id number] 06:53:00 Test Item Value Reference Range Interpretation Comments ABO/RH AUTOMATED (BEAKER) (test O POSITIVE code = 2260) Ab Scrn (test code = 890-4) NEGATIVE [facility] W/PLT COUNT & AUTO [id number] 06:52:00 Test Item Value Reference Range Interpretation Comments WHITE BLOOD CELL COUNT (BEAKER) 3.9 K/ L 3.5-10.5 (test code = 775) RED BLOOD CELL COUNT (BEAKER) 2.71 M/ L 4.63-6.08 L (test code = 761) HEMOGLOBIN (BEAKER) (test code = 8.1 GM/DL 13.7-17.5 L 410) HEMATOCRIT (BEAKER) (test code = 25.4 % 40.1-51.0 L 411) MEAN CORPUSCULAR VOLUME (BEAKER) 93.7 fL 79.0-92.2 H (test code = 753) MEAN CORPUSCULAR HEMOGLOBIN 29.9 pg 25.7-32.2 (BEAKER) (test code = 751) MEAN CORPUSCULAR HEMOGLOBIN CONC 31.9 GM/DL 32.3-36.5 L (BEAKER) (test code = 752) RED CELL DISTRIBUTION WIDTH 20.4 % 11.6-14.4 H (BEAKER) (test code = 412) PLATELET COUNT (BEAKER) (test code 61 K/CU MM 150-450 L = 756) MEAN PLATELET VOLUME (BEAKER) 10.6 fL 9.4-12.4 (test code = 754) NUCLEATED RED BLOOD CELLS (BEAKER) 0 /100 WBC 0-0 (test code = 413) NEUTROPHILS RELATIVE PERCENT 52 % (BEAKER) (test code = 429) LYMPHOCYTES RELATIVE PERCENT 26 % (BEAKER) (test code = 430) MONOCYTES RELATIVE PERCENT 16 % (BEAKER) (test code = 431) EOSINOPHILS RELATIVE PERCENT 5 % (BEAKER) (test code = 432) BASOPHILS RELATIVE PERCENT 0 % (BEAKER) (test code = 437) NEUTROPHILS ABSOLUTE COUNT 2.02 K/ L 1.78-5.38 (BEAKER) (test code = 670) LYMPHOCYTES ABSOLUTE COUNT 1.01 K/ L 1.32-3.57 L (BEAKER) (test code = 414) MONOCYTES ABSOLUTE COUNT (BEAKER) 0.63 K/ L 0.30-0.82 (test code = 415) EOSINOPHILS ABSOLUTE COUNT 0.20 K/ L 0.04-0.54 (BEAKER) (test code = 416) BASOPHILS ABSOLUTE COUNT (BEAKER) 0.01 K/ L 0.01-0.08 (test code = 417) IMMATURE GRANULOCYTES-RELATIVE 1 % 0-1 PERCENT (BEAKER) (test code = 2801) POCT-GLUCOSE [id number] 21:38:00 Test Item Value Reference Range Interpretation Comments POC-GLUCOSE METER 84 mg/dL 70-110 : TESTED A T [facility] 6720 (BEAKER) (test code = [facility], 153) 8[address]: Specialized Language Instructor/Techni lg ID = [id number] for IAM NESS POCT-GLUCOSE [id number] 18:47:00 Test Item Value Reference Range Interpretation Comments POC-GLUCOSE METER 95 mg/dL 70-110 : TESTED A T [facility] 6720 (BEAKER) (test code = [facility], 1538) 12201: Specialized Language Instructor/Techni lg ID = [id number] for EVETTE MAIYPATRICIA POCT-GLUCOSE [id number] 12:17:00 Test Item Value Reference Range Interpretation Comments POC-GLUCOSE METER 173 mg/dL 70-110 H : TESTED A T [facility] 6720 (BEAKER) (test code [facility], = 1538) 23775: Specialized Language Instructor/Techni lg ID = [id number] for JOAQUÍN Willson PACO YAHIR Hepatitis C PCR, [id number] 08:43:00 Test Item Value Reference Range Interpretation Comments HCV PCR, Quantitative HCV RNA not detected HCV RNA not (test code = 82914-1) detected GINA (test code = GINA) This test uses a Real-Time Polymerase Chain Reaction (RT-PCR) methodology and was performed using ROWENA Ampliprep/ROWENA TaqMan HCV test kit version 2.0 ([employer] Reportable range for this assay is 15 - 100,000,000 IU per mL (1.18 - 8.00 Log IU/mL). Lab Interpretation Normal (test code = 66672-6) [facility], [id number] 08:43:00 Test Item Value Reference Range Interpretation Comments HCV RESULT COMPONENT HCV RNA not detected HCV RNA not detected (BEAKER) (test code = 2699) This test uses a Real-Time Polymerase Chain Reaction (RT-PCR) methodology and was performed using ROWENA Ampliprep/ROWENA TaqMan HCV test kit version 2.0 ([employer]Reportable range for this assay is 15 - 100,000,000 IU per mL (1.18 - 8.00 Log IU/mL).POCT-GLUCOSE [id number] 07:46:00 Test Item Value Reference Range Interpretation Comments POC-GLUCOSE METER 89 mg/dL 70-110 : TESTED A T [facility] 6720 (BEAKER) (test code = [facility], 1538) [address]78[address]: Specialized Language Instructor/Techni lg ID = [id number] for JOAQUÍN ANTONIO YAHIR BASIC METABOLIC [id number] 06:07:00 Test Item Value Reference Range Interpretation Comments SODIUM (BEAKER) 138 meq/L 136-145 (test code = 381) POTASSIUM (BEAKER) 4.0 meq/L 3.5-5.1 (test code = 379) CHLORIDE (BEAKER) 113 meq/L 98-107 H (test code = 382) CO2 (BEAKER) (test 22 meq/L 22-29 code = 355) BLOOD UREA NITROGEN 9 mg/dL 7-21 (BEAKER) (test code = 354) CREATININE (BEAKER) 0.62 mg/dL 0.57-1.25 (test code = 358) GLUCOSE RANDOM 79 mg/dL 70-105 (BEAKER) (test code = 652) CALCIUM (BEAKER) 7.5 mg/dL 8.4-10.2 L (test code = 697) EGFR (BEAKER) (test 125 mL/min/1.73 ESTIM ATED GFR IS code = 1092) sq m NOT ACCURATE CREATININE CLEARANCE IN PREDICTING GLOMERULAR FILTRATION RATE . ESTIMATED GFR I S NOT APPLICABLE FOR DIALYSIS PATIEN TS. Specialized Language Instructor ID - LETITIA FOhfmunqyuw3000-96-14 05:47:00 Test Item Value Reference Range Interpretation Comments Phosphorus (test code = 3.1 mg/dL 2.3-4.7 2777-1) GINA (test code = GINA) Specialized Language Instructor ID - LETITIA M Lab Interpretation (test Normal code = 37267-1) [facility] CenterPHOSPHORUS2020-01-18 05:47:00 Test Item Value Reference Range Interpretation Comments PHOSPHORUS (BEAKER) (test code = 3.1 mg/dL 2.3-4.7 604) Specialized Language Instructor ID - LETTIIA VOOCVDASKZ0820-33-08 05:47:00 Test Item Value Reference Range Interpretation Comments MAGNESIUM (BEAKER) (test code = 1.7 mg/dL 1.6-2.6 627) Specialized Language Instructor ID - LETITIA [facility] W/PLT COUNT & AUTO [id number] 05:33:00 Test Item Value Reference Range Interpretation Comments WHITE BLOOD CELL COUNT (BEAKER) 3.7 K/ L 3.5-10.5 (test code = 775) RED BLOOD CELL COUNT (BEAKER) 2.47 M/ L 4.63-6.08 L (test code = 761) HEMOGLOBIN (BEAKER) (test code = 7.1 GM/DL 13.7-17.5 L 410) HEMATOCRIT (BEAKER) (test code = 23.1 % 40.1-51.0 L 411) MEAN CORPUSCULAR VOLUME (BEAKER) 93.5 fL 79.0-92.2 H (test code = 753) MEAN CORPUSCULAR HEMOGLOBIN 28.7 pg 25.7-32.2 (BEAKER) (test code = 751) MEAN CORPUSCULAR HEMOGLOBIN CONC 30.7 GM/DL 32.3-36.5 L (BEAKER) (test code = 752) RED CELL DISTRIBUTION WIDTH 19.9 % 11.6-14.4 H (BEAKER) (test code = 412) PLATELET COUNT (BEAKER) (test code 56 K/CU MM 150-450 L = 756) MEAN PLATELET VOLUME (BEAKER) 10.3 fL 9.4-12.4 (test code = 754) NUCLEATED RED BLOOD CELLS (BEAKER) 0 /100 WBC 0-0 (test code = 413) NEUTROPHILS RELATIVE PERCENT 47 % (BEAKER) (test code = 429) LYMPHOCYTES RELATIVE PERCENT 30 % (BEAKER) (test code = 430) MONOCYTES RELATIVE PERCENT 17 % (BEAKER) (test code = 431) EOSINOPHILS RELATIVE PERCENT 5 % (BEAKER) (test code = 432) BASOPHILS RELATIVE PERCENT 0 % (BEAKER) (test code = 437) NEUTROPHILS ABSOLUTE COUNT 1.73 K/ L 1.78-5.38 L (BEAKER) (test code = 670) LYMPHOCYTES ABSOLUTE COUNT 1.10 K/ L 1.32-3.57 L (BEAKER) (test code = 414) MONOCYTES ABSOLUTE COUNT (BEAKER) 0.63 K/ L 0.30-0.82 (test code = 415) EOSINOPHILS ABSOLUTE COUNT 0.19 K/ L 0.04-0.54 (BEAKER) (test code = 416) BASOPHILS ABSOLUTE COUNT (BEAKER) 0.01 K/ L 0.01-0.08 (test code = 417) IMMATURE GRANULOCYTES-RELATIVE 1 % 0-1 PERCENT (BEAKER) (test code = 2801) [id number] 05:16:00 Test Item Value Reference Range Interpretation Comments Protime (test code = 18.4 11.9- 14.2 H 5902-2) seconds INR (test code = 1.6 <=5.9 6301-6) PTT (test code = 42.8 22.5- 36.0 H 11133-7) seconds GINA (test code = GINA) Effective 12/22/2018: PT Reference Range ChangeNew: 11.9-14.2 Previous: 11.7-14.7 RECOMMENDED COUMADIN/WARFARIN INR THERAPY RANGESSTANDARD DOSE: 2.0-3.0 Includes: PROPHYLAXIS for venous thrombosis, systemic embolization; TREATMENT for venous thrombosis and/or pulmonary embolus.HIGH RISK: Target INR is 2.5-3.5 for patients wiht mechanical heart valves. Lab Interpretation Abnormal (test code = 50106-4) [facility] CenterPT/[id number] 05:16:00 Test Item Value Reference Range Interpretation Comments PROTIME (BEAKER) (test code = 18.4 seconds 11.9-14.2 H 759) INR (BEAKER) (test code = 370) 1.6 <=5.9 PARTIAL THROMBOPLASTIN TIME 42.8 seconds 22.5-36.0 H (BEAKER) (test code = 760) Effective 12/22/2018: PT Reference Range ChangeNew: 11.9-14.2 Previous: 11.7- 14.7RECOMMENDED COUMADIN/WARFARIN INR THERAPY RANGESSTANDARD DOSE: 2.0-3.0 Includes: PROPHYLAXIS for venous thrombosis, systemic embolization; TREATMENT for venous thrombosis and/or pulmonary embolus.HIGH RISK: Target INR is2.5-3.5 for patients wiht mechanical heart valves.Prepare Leuko-Red [id number] 23:54:00 Test Item Value Reference Range Interpretation Comments CROSSMATCH (test code = 2264) COMPATIBLE Unit ABO (test code = O Neg 2804657) UNIT NUMBER (test code = [id number] 934-0) Status (test code = 2153052) TX_TIMEINCHART Blood Bank Product (test code RED BLOOD CELLS = 2263) PRODUCT CODE (test code = X0472H38 933-2) [facility] CenterPOCT-[facility]UCOSE [id number] 22:01:00 Test Item Value Reference Range Interpretation Comments POC-GLUCOSE METER 83 mg/dL 70-110 : TESTED A T [facility] 6720 (BEAKER) (test code = [facility] [place], 1538) 20[address]: Specialized Language Instructor/Techni lg ID = [id number] for SANTINO DOUGLAS POCT-GLUCOSE [id number] 16:55:00 Test Item Value Reference Range Interpretation Comments POC-GLUCOSE METER 152 mg/dL 70-110 H : TESTED A T [facility] 6720 (BEAKER) (test code = [facility] [place], 1538) 084[address]: Specialized Language Instructor/Techni lg ID = [id number] for FE LDER, KAEL POCT-GLUCOSE [id number] 11:55:00 Test Item Value Reference Range Interpretation Comments POC-GLUCOSE METER 174 mg/dL 70-110 H : TESTED A T [facility] 6720 (BEAKER) (test code = [facility] [place], 1538) 23262: Specialized Language Instructor/Techni lg ID = [id number] for ZULMA LDER, KAEL ALISSA Titer & [id number] 09:54:00 Test Item Value Reference Range Interpretation Comments ALISSA Titer (test code = 03184-9) 1:40 ALISSA Pattern (test code = 1781) Homogeneous [facility] CenterANA TITER AND [id number] 09:54:00 Test Item Value Reference Range Interpretation Comments ALISSA TITER (BEAKER) (test code = :40 1541) ALISSA PATTERN (BEAKER) (test code = Homogeneous 1781) Anti-Nuclear Antibody (ALISSA)2019-08-12 09:53:00 Test Item Value Reference Range Interpretation Comments ALISSA (test code = 17165-2) Positive Negative A GINA (test code = GINA) Test performed by IFA method. Lab Interpretation (test Abnormal code = 34570-2) [facility] CenterANTI-NUCLEAR ANTIBODY (ALISSA)2019-08-12 09:53:00 Test Item Value Reference Range Interpretation Comments ANTI-NUCLEAR ANTIBODY (ALISSA) (BEAKER) Positive Negative A (test code = 418) Test performed by IFA method.POCT-GLUCOSE [id number] 07:56:00 Test Item Value Reference Range Interpretation Comments POC-GLUCOSE METER 93 mg/dL 70-110 : TESTED A T [facility] 6720 (BEAKER) (test code = [facility] [place], 1538) 45551: Specialized Language Instructor/Techni lg ID = [id number] for NEHEMIAS ER, KAEL Immunoglobulin G (IgG)2019-08-12 07:46:00 Test Item Value Reference Range Interpretation Comments IgG (test code = 2465-3) 769 mg/dL 540-1822 GINA (test code = GINA) Specialized Language Instructor ID - ROSIANG Lab Interpretation (test Normal code = 30128-8) [facility] CenterIMMUNOGLOBULIN G (IGG)2019-08-12 07:46:00 Test Item Value Reference Range Interpretation Comments IMMUNOGLOBULIN G (IGG) (BEAKER) 769 mg/dL 540-1,822 (test code = 427) Specialized Language Instructor ID - FREDDYGHepatitis C dueikhkp3788-54-35 07:44:00 Test Item Value Reference Range Interpretation Comments Hepatitis C Ab (test Nonreactive Nonreactive code = 58456-4) GINA (test code = GINA) Specialized Language Instructor ID - FREDDYG Lab Interpretation (test Normal code = 96828-3) [facility] CenterHEPATITIS C [id number] 07:44:00 Test Item Value Reference Range Interpretation Comments HEPATITIS C ANTIBODY (BEAKER) Nonreactive Nonreactive (test code = 367) Specialized Language Instructor ID - LPPZQACQdpzodk5530-08-17 07:05:00 Test Item Value Reference Range Interpretation Comments Ammonia (test code = 40 18- 72 mol/L 30317-7) GINA (test code = GINA) Specialized Language Instructor ID - WILLOW W Lab Interpretation (test Normal code = 91922-3) [facility] CenterAMMONIA2020-01-17 07:05:00 Test Item Value Reference Range Interpretation Comments AMMONIA (BEAKER) (test code = 348) 40 mol/L 18-72 Specialized Language Instructor ID - WILLOW WBASIC METABOLIC [id number] 05:59:00 Test Item Value Reference Range Interpretation Comments SODIUM (BEAKER) 139 meq/L 136-145 (test code = 381) POTASSIUM (BEAKER) 4.0 meq/L 3.5-5.1 (test code = 379) CHLORIDE (BEAKER) 113 meq/L 98-107 H (test code = 382) CO2 (BEAKER) (test 22 meq/L 22-29 code = 355) BLOOD UREA NITROGEN 8 mg/dL 7-21 (BEAKER) (test code = 354) CREATININE (BEAKER) 0.65 mg/dL 0.57-1.25 (test code = 358) GLUCOSE RANDOM 97 mg/dL 70-105 (BEAKER) (test code = 652) CALCIUM (BEAKER) 7.6 mg/dL 8.4-10.2 L (test code = 697) EGFR (BEAKER) (test 119 mL/min/1.73 ESTIM ATED GFR IS code = 1092) sq m NOT ACCURATE CREATININE CLEARANCE IN PREDICTING GLOMERULAR FILTRATION RATE . ESTIMATED GFR I S NOT APPLICABLE FOR DIALYSIS PATIEN TS. Specialized Language Instructor ID - WILLOW WSpecimen slightly cdkxohpOLKKZQOQNH5516-41-15 05:54:00 Test Item Value Reference Range Interpretation Comments PHOSPHORUS (BEAKER) (test code = 3.1 mg/dL 2.3-4.7 604) Specialized Language Instructor ID - WILLOW QFZPAUPDUO8827-91-26 05:54:00 Test Item Value Reference Range Interpretation Comments MAGNESIUM (BEAKER) (test code = 1.9 mg/dL 1.6-2.6 627) Specialized Language Instructor ID - WILLOW WCBC W/PLT COUNT & AUTO [id number] 05:42:00 Test Item Value Reference Range Interpretation Comments WHITE BLOOD CELL COUNT (BEAKER) 4.0 K/ L 3.5-10.5 (test code = 775) RED BLOOD CELL COUNT (BEAKER) 2.89 M/ L 4.63-6.08 L (test code = 761) HEMOGLOBIN (BEAKER) (test code = 8.4 GM/DL 13.7-17.5 L 410) HEMATOCRIT (BEAKER) (test code = 26.8 % 40.1-51.0 L 411) MEAN CORPUSCULAR VOLUME (BEAKER) 92.7 fL 79.0-92.2 H (test code = 753) MEAN CORPUSCULAR HEMOGLOBIN 29.1 pg 25.7-32.2 (BEAKER) (test code = 751) MEAN CORPUSCULAR HEMOGLOBIN CONC 31.3 GM/DL 32.3-36.5 L (BEAKER) (test code = 752) RED CELL DISTRIBUTION WIDTH 19.9 % 11.6-14.4 H (BEAKER) (test code = 412) PLATELET COUNT (BEAKER) (test code 57 K/CU MM 150-450 L = 756) MEAN PLATELET VOLUME (BEAKER) 10.9 fL 9.4-12.4 (test code = 754) NUCLEATED RED BLOOD CELLS (BEAKER) 0 /100 WBC 0-0 (test code = 413) NEUTROPHILS RELATIVE PERCENT 52 % (BEAKER) (test code = 429) LYMPHOCYTES RELATIVE PERCENT 25 % (BEAKER) (test code = 430) MONOCYTES RELATIVE PERCENT 17 % (BEAKER) (test code = 431) EOSINOPHILS RELATIVE PERCENT 6 % (BEAKER) (test code = 432) BASOPHILS RELATIVE PERCENT 1 % (BEAKER) (test code = 437) NEUTROPHILS ABSOLUTE COUNT 2.05 K/ L 1.78-5.38 (BEAKER) (test code = 670) LYMPHOCYTES ABSOLUTE COUNT 0.99 K/ L 1.32-3.57 L (BEAKER) (test code = 414) MONOCYTES ABSOLUTE COUNT (BEAKER) 0.66 K/ L 0.30-0.82 (test code = 415) EOSINOPHILS ABSOLUTE COUNT 0.24 K/ L 0.04-0.54 (BEAKER) (test code = 416) BASOPHILS ABSOLUTE COUNT (BEAKER) 0.02 K/ L 0.01-0.08 (test code = 417) IMMATURE GRANULOCYTES-RELATIVE 1 % 0-1 PERCENT (BEAKER) (test code = 2801) Qihms-2-ptmlrjlvfcv2647-01-17 05:23:00 Test Item Value Reference Range Interpretation Comments A-1 Antitrypsin (test code = 164.00 mg/dL 90-200 1825-9) GINA (test code = GINA) Specialized Language Instructor ID - DB Lab Interpretation (test Normal code = 55462-3) [facility] CenterALPHA-1-HDSFWMXDDYO5023-71-14 05:23:00 Test Item Value Reference Range Interpretation Comments ALPHA-1 ANTITRYPSIN (BEAKER) 164.00 mg/dL 90.00-200.00 (test code = 502) Specialized Language Instructor ID - ATSwvthpkcax4750-36-67 05:15:00 Test Item Value Reference Range Interpretation Comments Fibrinogen (test code = 3255-7) 268 mg/dl 225-434 Lab Interpretation (test code = Normal 27880-2) [facility] CenterFIBRINOGEN2020-01-17 05:15:00 Test Item Value Reference Range Interpretation Comments FIBRINOGEN LEVEL (BEAKER) (test 268 mg/dl 225-434 code = 658) PT/[id number] 05:15:00 Test Item Value Reference Range Interpretation Comments PROTIME (BEAKER) (test code = 17.5 seconds 11.9-14.2 H 759) INR (BEAKER) (test code = 370) 1.5 <=5.9 PARTIAL THROMBOPLASTIN TIME 41.6 seconds 22.5-36.0 H (BEAKER) (test code = 760) Effective 12/22/2018: PT Reference Range ChangeNew: 11.9-14.2 Previous: 11.7- 14.7RECOMMENDED COUMADIN/WARFARIN INR THERAPY RANGESSTANDARD DOSE: 2.0-3.0 Includes: PROPHYLAXIS for venous thrombosis, systemic embolization; TREATMENT for venous thrombosis and/or pulmonary embolus.HIGH RISK: Target INR is2.5-3.5 for patients wiht mechanical heart valves.POCT-GLUCOSE [id number] 00:54:00 Test Item Value Reference Range Interpretation Comments POC-GLUCOSE METER 131 mg/dL 70-110 H : TESTED A T [facility] 6720 (BEAKER) (test code = [facility], 1538) 10538: Specialized Language Instructor/Techni lg ID = [id number] for Whitney Beverly POCT-GLUCOSE [id number] 22:27:00 Test Item Value Reference Range Interpretation Comments POC-GLUCOSE METER 184 mg/dL 70-110 H : TESTED A T [facility] 6720 (BEAKER) (test code = [facility], 1538) 50644: Specialized Language Instructor/Techni lg ID = [id number] for GIUSEPPEDELVIN IVAN Hemoglobin and jstuwmubci6707-48-10 20:06:00 Test Item Value Reference Range Interpretation Comments Hemoglobin (test code = 6.8 13.7- 17.5 GM/DL L 786-4) Hematocrit (test code = 21.3 % 40.1-51 L 4544-3) GINA (test code = GINA) Specialized Language Instructor ID - [id number] Lab Interpretation (test Abnormal code = 20204-7) [facility] CenterHEMOGLOBIN AND [id number] 20:06:00 Test Item Value Reference Range Interpretation Comments HEMOGLOBIN (BEAKER) (test code = 6.8 GM/DL 13.7-17.5 L 410) HEMATOCRIT (BEAKER) (test code = 21.3 % 40.1-51.0 L 411) Specialized Language Instructor ID - [id number]-GLUCOSE [id number] 17:50:00 Test Item Value Reference Range Interpretation Comments POC-GLUCOSE METER 120 mg/dL 70-110 H : TESTED A T [facility] 6720 (BEAKER) (test code = [facility], 1538) 22207: Specialized Language Instructor/Techni lg ID = [id number] for CHRISTINA MORGAN HEPATITIS C [id number] 17:29:00 Test Item Value Reference Range Interpretation Comments HEPATITIS C ANTIBODY (BEAKER) Nonreactive Nonreactive (test code = 367) Specialized Language Instructor ID - DBIMMUNOGLOBULIN G (IGG)2019-08-11 17:04:00 Test Item Value Reference Range Interpretation Comments IMMUNOGLOBULIN G (IGG) (BEAKER) 655 mg/dL 540-1,822 (test code = 427) Specialized Language Instructor ID - DOXJAIBXDCM4974-62-91 16:17:00 Test Item Value Reference Range Interpretation Comments MAGNESIUM (BEAKER) (test code = 2.1 mg/dL 1.6-2.6 627) Specialized Language Instructor ID - BSHEMOGLOBIN AND EWTMVZUASP3487-39-86 15:57:00 Test Item Value Reference Range Interpretation Comments HEMOGLOBIN (BEAKER) (test code = 6.6 GM/DL 13.7-17.5 L 410) HEMATOCRIT (BEAKER) (test code = 21.1 % 40.1-51.0 L 411) Specialized Language Instructor ID - [id number]-GLUCOSE AXVMD1502-13-01 12:12:00 Test Item Value Reference Range Interpretation Comments POC-GLUCOSE METER 177 mg/dL 70-110 H : Notified RN/MD: (BEAKER) (test code = TESTED AT [facility] 3793 0972) [facility], [address]: Specialized Language Instructor/Techni lg ID = [id number] for CHRISTINA MORGAN CBC W/PLT COUNT & AUTO LIBLZBEYMDGP9342-29-10 06:36:00 Test Item Value Reference Range Interpretation Comments WHITE BLOOD CELL COUNT (BEAKER) 4.4 K/ L 3.5-10.5 (test code = 775) RED BLOOD CELL COUNT (BEAKER) 2.50 M/ L 4.63-6.08 L (test code = 761) HEMOGLOBIN (BEAKER) (test code = 7.3 GM/DL 13.7-17.5 L 410) HEMATOCRIT (BEAKER) (test code = 23.5 % 40.1-51.0 L 411) MEAN CORPUSCULAR VOLUME (BEAKER) 94.0 fL 79.0-92.2 H (test code = 753) MEAN CORPUSCULAR HEMOGLOBIN 29.2 pg 25.7-32.2 (BEAKER) (test code = 751) MEAN CORPUSCULAR HEMOGLOBIN CONC 31.1 GM/DL 32.3-36.5 L (BEAKER) (test code = 752) RED CELL DISTRIBUTION WIDTH 20.0 % 11.6-14.4 H (BEAKER) (test code = 412) PLATELET COUNT (BEAKER) (test code 50 K/CU MM 150-450 L = 756) MEAN PLATELET VOLUME (BEAKER) 10.7 fL 9.4-12.4 (test code = 754) NUCLEATED RED BLOOD CELLS (BEAKER) 1 /100 WBC 0-0 H (test code = 413) NEUTROPHILS RELATIVE PERCENT 59 % (BEAKER) (test code = 429) LYMPHOCYTES RELATIVE PERCENT 19 % (BEAKER) (test code = 430) MONOCYTES RELATIVE PERCENT 15 % (BEAKER) (test code = 431) EOSINOPHILS RELATIVE PERCENT 5 % (BEAKER) (test code = 432) BASOPHILS RELATIVE PERCENT 0 % (BEAKER) (test code = 437) NEUTROPHILS ABSOLUTE COUNT 2.59 K/ L 1.78-5.38 (BEAKER) (test code = 670) LYMPHOCYTES ABSOLUTE COUNT 0.85 K/ L 1.32-3.57 L (BEAKER) (test code = 414) MONOCYTES ABSOLUTE COUNT (BEAKER) 0.68 K/ L 0.30-0.82 (test code = 415) EOSINOPHILS ABSOLUTE COUNT 0.22 K/ L 0.04-0.54 (BEAKER) (test code = 416) BASOPHILS ABSOLUTE COUNT (BEAKER) 0.01 K/ L 0.01-0.08 (test code = 417) IMMATURE GRANULOCYTES-RELATIVE 1 % 0-1 PERCENT (BEAKER) (test code = 2801) Rmaaehmh7406-14-27 06:31:00 Test Item Value Reference Range Interpretation Comments Ferritin (test code = 44 ng/mL 5-275 2276-4) GINA (test code = GINA) Specialized Language Instructor ID - WILLOW W Lab Interpretation (test Normal code = 67986-5) [facility] CenterTransferrin2020-01-16 06:31:00 Test Item Value Reference Range Interpretation Comments Transferrin (test code = 148 mg/dL 174-382 L 3034-6) GINA (test code = GINA) Specialized Language Instructor ID - WILLOW W Lab Interpretation (test Abnormal code = 67045-9) [facility] CenterIron, TIBC, % sat. (without ferritin)2019-08-11 06:31:00 Test Item Value Reference Range Interpretation Comments Iron (test code = 2498-4) 65.0 ug/dL 40-160 TIBC (test code = 2500-7) 185 ug/dL 250-450 L Iron % Saturation (test 35 % 20-55 code = 2502-3) GINA (test code = GINA) Specialized Language Instructor ID - WILLOW W Lab Interpretation (test Abnormal code = 87493-7) [facility] CenterVitamin B12 and Lgehwm8958-17-56 06:31:00 Test Item Value Reference Range Interpretation Comments Vitamin B12 (test code = 1086 pg/mL 213-816 H 2132-9) Folate (test code = 12.3 ng/mL >=7.0 2284-8) GINA (test code = GINA) Specialized Language Instructor ID - WILLOW W Lab Interpretation (test Abnormal code = 61093-0) [facility] CenterTRANSFERRIN2020-01-16 06:31:00 Test Item Value Reference Range Interpretation Comments TRANSFERRIN (BEAKER) (test code = 148 mg/dL 174-382 L 541) Specialized Language Instructor ID - WILLOW [place], TIBC, % SAT. (WITHOUT FERRITIN)2019-08-11 06:31:00 Test Item Value Reference Range Interpretation Comments IRON (BEAKER) (test code = 547) 65.0 ug/dL 40.0-160.0 TOTAL IRON BINDING CAPACITY 185 ug/dL 250-450 L (BEAKER) (test code = 769) IRON % SATURATION (2) (BEAKER) 35 % 20-55 (test code = 2590) Specialized Language Instructor ID - WILLOW AJBFYPAWX0327-57-97 06:31:00 Test Item Value Reference Range Interpretation Comments FERRITIN (BEAKER) (test code = 361) 44 ng/mL 5-275 Specialized Language Instructor ID - WILLOW WVITAMIN B12 AND XGXCYQ4969-74-63 06:31:00 Test Item Value Reference Range Interpretation Comments VITAMIN B12 (BEAKER) (test code = 1086 pg/mL 213-816 H 774) FOLATE (BEAKER) (test code = 362) 12.3 ng/mL >=7.0 Specialized Language Instructor ID - WILLOW LQKFKGVB3837-30-15 05:50:00 Test Item Value Reference Range Interpretation Comments AMMONIA (BEAKER) (test code = 348) 23 mol/L 18-72 Specialized Language Instructor ID - WILLOW WBASIC METABOLIC IFYVQ9746-11-48 05:38:00 Test Item Value Reference Range Interpretation Comments SODIUM (BEAKER) 142 meq/L 136-145 (test code = 381) POTASSIUM (BEAKER) 4.0 meq/L 3.5-5.1 (test code = 379) CHLORIDE (BEAKER) 120 meq/L 98-107 H (test code = 382) CO2 (BEAKER) (test 20 meq/L 22-29 L code = 355) BLOOD UREA NITROGEN 8 mg/dL 7-21 (BEAKER) (test code = 354) CREATININE (BEAKER) 0.64 mg/dL 0.57-1.25 (test code = 358) GLUCOSE RANDOM 147 mg/dL 70-105 H (BEAKER) (test code = 652) CALCIUM (BEAKER) 7.3 mg/dL 8.4-10.2 L (test code = 697) EGFR (BEAKER) (test 121 mL/min/1.73 ESTIM ATED GFR IS code = 1092) sq m NOT ACCURATE CREATININE CLEARANCE IN PREDICTING GLOMERULAR FILTRATION RATE . ESTIMATED GFR I S NOT APPLICABLE FOR DIALYSIS PATIEN TS. Specialized Language Instructor ID John DAUGHERTY [id number] 05:37:00 Test Item Value Reference Range Interpretation Comments PHOSPHORUS (BEAKER) (test code = 2.5 mg/dL 2.3-4.7 604) Specialized Language Instructor ID - WILLOW [id number] 05:37:00 Test Item Value Reference Range Interpretation Comments MAGNESIUM (BEAKER) (test code = 1.9 mg/dL 1.6-2.6 627) Specialized Language Instructor ID - WILLOW WReticulocyte [id number] 05:03:00 Test Item Value Reference Range Interpretation Comments % Retic (test code = 4.7 % 0.5-1.8 H 25016-1) GINA (test code = GINA) Specialized Language Instructor ID - [id number] Lab Interpretation (test Abnormal code = 46537-3) [facility] [id number] 05:03:00 Test Item Value Reference Range Interpretation Comments RETICULOCYTE COUNT PCT (BEAKER) (test 4.7 % 0.5-1.8 H code = 575) Specialized Language Instructor ID - [id number] 05:02:00 Test Item Value Reference Range Interpretation Comments PROTIME (BEAKER) (test code = 18.7 seconds 11.9-14.2 H 759) INR (BEAKER) (test code = 370) 1.6 <=5.9 PARTIAL THROMBOPLASTIN TIME 38.5 seconds 22.5-36.0 H (BEAKER) (test code = 760) Effective 12/22/2018: PT Reference Range ChangeNew: 11.9-14.2 Previous: 11.7- 14.7RECOMMENDED COUMADIN/WARFARIN INR THERAPY RANGESSTANDARD DOSE: 2.0-3.0 Includes: PROPHYLAXIS for venous thrombosis, systemic embolization; TREATMENT for venous thrombosis and/or pulmonary embolus.HIGH RISK: Target INR is2.5-3.5 for patients wiht mechanical heart valves.[id number] 05:01:00 Test Item Value Reference Range Interpretation Comments FIBRINOGEN LEVEL (BEAKER) (test 241 mg/dl 225-434 code = 658) Blood Culture - Routine (Right Venipuncture)2019-08-11 01:00:00 Test Item Value Reference Range Interpretation Comments Result (test code = No growth in 5 days 6463-4) [facility] CenterBL[facility]OD [id number] 01:00:00 Test Item Value Reference Range Interpretation Comments CULTURE (BEAKER) (test No growth in 5 days code = 1095) HEMOGLOBIN AND [id number] 23:36:00 Test Item Value Reference Range Interpretation Comments HEMOGLOBIN (BEAKER) (test code = 7.4 GM/DL 13.7-17.5 L 410) HEMATOCRIT (BEAKER) (test code = 23.7 % 40.1-51.0 L 411) Specialized Language Instructor ID - [id number] [id number] 22:00:00 Test Item Value Reference Range Interpretation Comments CULTURE (BEAKER) (test No growth in 5 days code = 1095) [id number] 20:49:00 Test Item Value Reference Range Interpretation Comments Gastrin, Serum <15 < OR = 100 pg/mL NOTE: Re ference (test code = range applies t o 20200124) fasting specime n only. For additional information, pl ease refer tohttp://educat ion. questdiagnostic s.co m/faq/HUM131(Th is link is being provided for informational/e duca tional purposes only.) GINA (test code Performing Lab = GINA) [facility] [address] [place] [address] Rosemarie Mills MD, PhD, FINA [facility] CenterPOCT-GLUCOSE [id number] 17:27:00 Test Item Value Reference Range Interpretation Comments POC-GLUCOSE METER 160 mg/dL 70-110 H : TESTED A T [facility] 6720 (BEAKER) (test code = CHANG WILD MD, 1538) [address]: Specialized Language Instructor/Techni lg ID = [id number] for Bethany Aponte HEMOGLOBIN AND [id number] 17:27:00 Test Item Value Reference Range Interpretation Comments HEMOGLOBIN (BEAKER) (test code = 6.6 GM/DL 13.7-17.5 L 410) HEMATOCRIT (BEAKER) (test code = 21.5 % 40.1-51.0 L 411) Specialized Language Instructor ID - [id number] 16:31:00 Test Item Value Reference Range Interpretation Comments Potassium (test code = 3.7 meq/L 3.5-5.1 2823-3) GINA (test code = GINA) Specialized Language Instructor ID John HIREN F Lab Interpretation (test Normal code = 20757-4) [facility] CenterPOTASSIUM2020-01-15 16:31:00 Test Item Value Reference Range Interpretation Comments POTASSIUM (BEAKER) (test code = 3.7 meq/L 3.5-5.1 379) Specialized Language Instructor ID - HIREN [id number] 16:31:00 Test Item Value Reference Range Interpretation Comments MAGNESIUM (BEAKER) (test code = 2.3 mg/dL 1.6-2.6 627) Specialized Language Instructor ID - HIREN FHEMOGLOBIN AND [id number] 16:12:00 Test Item Value Reference Range Interpretation Comments HEMOGLOBIN (BEAKER) (test code = 6.6 GM/DL 13.7-17.5 L 410) HEMATOCRIT (BEAKER) (test code = 21.9 % 40.1-51.0 L 411) Specialized Language Instructor ID - DontaePOCT-GLUCOSE [id number] 13:14:00 Test Item Value Reference Range Interpretation Comments POC-GLUCOSE METER 141 mg/dL 70-110 H : TESTED A T [facility] 6720 (BEAKER) (test code = CHANG WILD [place], 1538) [address]: Specialized Language Instructor/Techni lg ID = [id number] for Bethany Aponte Sputum Culture + Gram [id number] 12:54:00 Test Item Value Reference Range Interpretation Comments Result (test code = <1+ Normal respiratory 6463-4) whitney present Gram Stain Result No organisms seen (test code = 1123) [facility] [id number] 12:54:00 Test Item Value Reference Range Interpretation Comments CULTURE (BEAKER) <1+ Normal respiratory (test code = 1095) whitney present GRAM STAIN RESULT 2+ WBCs (BEAKER) (test code = 1123) GRAM STAIN RESULT 10-25/LPF epithelial (BEAKER) (test code = cells 28059) GRAM STAIN RESULT No organisms seen (BEAKER) (test code = 28083) Manual [id number] 10:03:00 Test Item Value Reference Range Interpretation Comments % Neutros (test code = 75 % 2816) % Lymphs (test code = 14 % 2817) % Monos (test code = 3 % 2818) % Eos (test code = 2819) 5 % % Baso (test code = 1 % 2820) % Bands (test code = 2 % 0-10 2826) # Neutros (test code = 4.35 K/ul 1.78-5.38 2830) # Lymphs (test code = 0.81 K/ul 1.32-3.57 L 2831) # Monos (test code = 0.17 K/uL 0.3-0.82 L 2832) # Eos (test code = 2834) 0.29 K/uL 0.04-0.54 # Baso (test code = 0.06 K/uL 0.01-0.08 2835) # Bands (test code = 0.12 K/uL 0-0.8 2840) Total Counted (test code 100 = 1351) RBC Morphology (test Normal code = 762) WBC Morphology (test Normal code = 487) Platelet Morphology Normal (test code = 486) Polychromasia (test code 1+ few = 478) Artifact (test code = Present 3432) Platelet Conc (test code Decreased = 3438) GINA (test code = GINA) Specialized Language Instructor ID - Aruna OverholtUser comments: Slide comments: Lab Interpretation (test Abnormal code = 87735-1) [facility] W/PLT COUNT & AUTO [id number] 10:03:00 Test Item Value Reference Range Interpretation Comments WHITE BLOOD CELL COUNT (BEAKER) 5.8 K/ L 3.5-10.5 (test code = 775) RED BLOOD CELL COUNT (BEAKER) 2.42 M/ L 4.63-6.08 L (test code = 761) HEMOGLOBIN (BEAKER) (test code = 7.0 GM/DL 13.7-17.5 L 410) HEMATOCRIT (BEAKER) (test code = 22.6 % 40.1-51.0 L 411) MEAN CORPUSCULAR VOLUME (BEAKER) 93.4 fL 79.0-92.2 H (test code = 753) MEAN CORPUSCULAR HEMOGLOBIN 28.9 pg 25.7-32.2 (BEAKER) (test code = 751) MEAN CORPUSCULAR HEMOGLOBIN CONC 31.0 GM/DL 32.3-36.5 L (BEAKER) (test code = 752) RED CELL DISTRIBUTION WIDTH 21.3 % 11.6-14.4 H (BEAKER) (test code = 412) PLATELET COUNT (BEAKER) (test code 54 K/CU MM 150-450 L = 756) MEAN PLATELET VOLUME (BEAKER) 10.9 fL 9.4-12.4 (test code = 754) NUCLEATED RED BLOOD CELLS (BEAKER) 0 /100 WBC 0-0 (test code = 413) (CELLAVISION MANUAL DIFF)2019-08-10 10:03:00 Test Item Value Reference Range Interpretation Comments NEUTROPHILS - REL 75 % (CELLAVISION)(BEAKER) (test code = 2816) LYMPHOCYTES - REL 14 % (CELLAVISION)(BEAKER) (test code = 2817) MONOCYTES - REL 3 % (CELLAVISION)(BEAKER) (test code = 2818) EOSINOPHILS - REL 5 % (CELLAVISION)(BEAKER) (test code = 2819) BASOPHILS - REL 1 % (CELLAVISION)(BEAKER) (test code = 2820) BANDS - REL (CELLAVISION)(BEAKER) 2 % 0-10 (test code = 2826) NEUTROPHILS - ABS 4.35 K/ul 1.78-5.38 (CELLAVISION)(BEAKER) (test code = 2830) LYMPHOCYTES - ABS 0.81 K/ul 1.32-3.57 L (CELLAVISION)(BEAKER) (test code = 2831) MONOCYTES - ABS 0.17 K/uL 0.30-0.82 L (CELLAVISION)(BEAKER) (test code = 2832) EOSINOPHILS - ABS 0.29 K/uL 0.04-0.54 (CELLAVISION)(BEAKER) (test code = 2834) BASOPHILS - ABS 0.06 K/uL 0.01-0.08 (CELLAVISION)(BEAKER) (test code = 2835) BANDS - ABS (CELLAVISION)(BEAKER) 0.12 K/uL 0.00-0.80 (test code = 2840) TOTAL COUNTED (BEAKER) (test code = 100 1351) RBC MORPHOLOGY (BEAKER) (test code Normal = 762) WBC MORPHOLOGY (BEAKER) (test code Normal = 487) PLT MORPHOLOGY (BEAKER) (test code Normal = 486) POLYCHROMATOPHILLIC RBCS(BEAKER) 1+ few (test code = 478) ARTIFACT (CELLAVISION)(BEAKER) Present (test code = 3432) PLATELET CONCENTRATION Decreased (CELLAVISION)(BEAKER) (test code = 3438) Specialized Language Instructor ID - Aruna OverholtUser comments: Slide comments:Hepatitis B surface [id number] 07:03:00 Test Item Value Reference Range Interpretation Comments Hep B S Ab (test code = <8.0 <8.0 mIU/mL 93993-0) GINA (test code = GINA) Specialized Language Instructor ID - DB Lab Interpretation (test Normal code = 78758-7) [facility] CenterHEPATITIS B SURFACE [id number] 07:03:00 Test Item Value Reference Range Interpretation Comments HEPATITIS B SURFACE ANTIBODY < mIU/mL <8.0 (BEAKER) (test code = 647) Specialized Language Instructor ID - DBHepatitis B core antibody, [id number] 07:02:00 Test Item Value Reference Range Interpretation Comments Hep B Core Total Ab (test Nonreactive Nonreactive code = 95545-1) GINA (test code = GINA) Specialized Language Instructor ID - DB Lab Interpretation (test Normal code = 73115-9) [facility] CenterAlpha fetoprotein (AFP), tumor [id number] 07:02:00 Test Item Value Reference Range Interpretation Comments Alpha-Fetoprotein (test code 1147.2 ng/mL <10.0 H = 1834-1) GINA (test code = GINA) Specialized Language Instructor ID - DB Lab Interpretation (test Abnormal code = 47568-8) [facility] CenterALPHA FETOPROTEIN (AFP), TUMOR [id number] 07:02:00 Test Item Value Reference Range Interpretation Comments ALPHA-FETOPROTEIN (BEAKER) (test 1147.2 ng/mL <10.0 H code = 1094) Specialized Language Instructor ID - DBHEPATITIS B CORE ANTIBODY, [id number] 07:02:00 Test Item Value Reference Range Interpretation Comments HEPATITIS B CORE TOTAL ANTIBODY Nonreactive Nonreactive (BEAKER) (test code = 497) Specialized Language Instructor ID - DBPOCT-GLUCOSE [id number] 06:28:00 Test Item Value Reference Range Interpretation Comments POC-GLUCOSE METER 171 mg/dL 70-110 H : TESTED A T [facility] 6720 (BEAKER) (test code = CHANG WILD MD, 1538) 09610: Specialized Language Instructor/Techni lg ID = [id number] for TYLER SANDOVAL BASIC METABOLIC [id number] 05:24:00 Test Item Value Reference Range Interpretation Comments SODIUM (BEAKER) 149 meq/L 136-145 H (test code = 381) POTASSIUM (BEAKER) 3.3 meq/L 3.5-5.1 L (test code = 379) CHLORIDE (BEAKER) 124 meq/L 98-107 H (test code = 382) CO2 (BEAKER) (test 22 meq/L 22-29 code = 355) BLOOD UREA NITROGEN 8 mg/dL 7-21 (BEAKER) (test code = 354) CREATININE (BEAKER) 0.76 mg/dL 0.57-1.25 (test code = 358) GLUCOSE RANDOM 170 mg/dL 70-105 H (BEAKER) (test code = 652) CALCIUM (BEAKER) 7.4 mg/dL 8.4-10.2 L (test code = 697) EGFR (BEAKER) (test 99 mL/min/1.73 ESTIMA POP GFR IS code = 1092) sq m NOT ACCURATE CREATININE CLEARANCE IN PREDICTING GLOMERULAR FILTRATION RATE . ESTIMATED GFR I S NOT APPLICABLE FOR DIALYSIS PATIEN TS. Specialized Language Instructor ID - [id number] 05:14:00 Test Item Value Reference Range Interpretation Comments PHOSPHORUS (BEAKER) (test code = 2.6 mg/dL 2.3-4.7 604) Specialized Language Instructor ID - [id number] 05:14:00 Test Item Value Reference Range Interpretation Comments MAGNESIUM (BEAKER) (test code = 2.0 mg/dL 1.6-2.6 627) Specialized Language Instructor ID - LARAD, CHEST, 1 VIEW, NON [id number] 05:09:00Reason for exam:- >intubatedShould this be performed at the bedside?->YesFINAL REPORT RAD, CHEST, 1 VIEW, NON DEPT INDICATION: intubated COMPARISON: Prior day's exam FINDINGS: Portable frontal view of the chest. IMPRESSION: Support Lines: Stable. Lungs and pleura: No new airspace consolidation. No pleural effusion. No pneumothorax.Heart and mediastinum: Stable contours. Stable surgical changes.Additional findings: None. Signed: Kathe Bautista Verified Date/Time: 08/10/2019 05:09:12 XR chest 1 view portable/[id number] 05:09:00Interface, External Ris In - 08/10/2019 5:11 AM CSTFINAL REPORT RAD, CHEST, 1 VIEW, NON DEPT INDICATION: intubated COMPARISON: Prior day's exam FINDINGS: Portable frontal view of the chest. IMPRESSION: Support Lines: Stable. Lungs and pleura: No new airspace consolidation. No pleural effusion. No pneumothorax.Heart and mediastinum: Stable contours. Stable surgical changes.Additional findings: None. Signed: Kathe Bautista Verified Date/Time: 08/10/2019 05:09:12 [facility] GardensPT/[id number] 05:02:00 Test Item Value Reference Range Interpretation Comments PROTIME (BEAKER) (test code = 20.3 seconds 11.9-14.2 H 759) INR (BEAKER) (test code = 370) 1.8 <=5.9 PARTIAL THROMBOPLASTIN TIME 44.0 seconds 22.5-36.0 H (BEAKER) (test code = 760) Effective 12/22/2018: PT Reference Range ChangeNew: 11.9-14.2 Previous: 11.7- 14.7RECOMMENDED COUMADIN/WARFARIN INR THERAPY RANGESSTANDARD DOSE: 2.0-3.0 Includes: PROPHYLAXIS for venous thrombosis, systemic embolization; TREATMENT for venous thrombosis and/or pulmonary embolus.HIGH RISK: Target INR is2.5-3.5 for patients wiht mechanical heart valves.[id number] 04:46:00 Test Item Value Reference Range Interpretation Comments AMMONIA (BEAKER) (test code = 348) 18 mol/L 18-72 Specialized Language Instructor ID - LABlood gas, vpekbbdy9834-96-11 04:29:00 Test Item Value Reference Range Interpretation Comments pH, Arterial (test code = 2744-1) 7.42 7.35-7.45 pCO2, Arterial (test code = 34 35- 45 mmHg L 2018-8) pO2, Arterial (test code = 41 80- 90 mmHg L 2703-7) O2 Sat, Arterial (test code = 78.2 % 96-97 L 2708-6) HCO3, Arterial (test code = 21 mmol/L 21-29 1960-4) Base Excess, Arterial (test code -2.7 mmol/L -2-3 L = 1925-7) Patient Temperature (test code = 37.0 C 8310-5) FIO2 (test code = 1819) 30 % Lab Interpretation (test code = Abnormal 15431-1) [facility] CenterBLOOD GAS, [id number] 04:29:00 Test Item Value Reference Range Interpretation Comments PH ARTERIAL (BEAKER) (test code = 7.42 7.35-7.45 383) PCO2 ARTERIAL (BEAKER) (test code 34 mmHg 35-45 L = 384) PO2 ARTERIAL (BEAKER) (test code 41 mmHg 80-90 L = 385) O2 SATURATION ARTERIAL (BEAKER) 78.2 % 96.0-97.0 L (test code = 386) HCO3 ARTERIAL (BEAKER) (test code 21 mmol/L 21-29 = 388) BASE EXCESS ARTERIAL (BEAKER) -2.7 mmol/L -2.0-3.0 L (test code = 387) PATIENT TEMPERATURE (BEAKER) 37.0 C (test code = 1818) FIO2 (BEAKER) (test code = 1819) 30.0 % POCT-GLUCOSE [id number] 00:25:00 Test Item Value Reference Range Interpretation Comments POC-GLUCOSE METER 155 mg/dL 70-110 H : TESTED A T [facility] 6720 (BEAKER) (test code = [facility], 1538) [address]: Specialized Language Instructor/Techni lg ID = [id number] for TYLER SANDOVAL HEMOGLOBIN AND [id number] 21:48:00 Test Item Value Reference Range Interpretation Comments HEMOGLOBIN (BEAKER) (test code = 7.0 GM/DL 13.7-17.5 L 410) HEMATOCRIT (BEAKER) (test code = 22.7 % 40.1-51.0 L 411) Specialized Language Instructor ID - [id number]-GLUCOSE [id number] 18:49:00 Test Item Value Reference Range Interpretation Comments POC-GLUCOSE METER 139 mg/dL 70-110 H : TESTED A T [facility] 6720 (BEAKER) (test code = [facility], 153) 70[address]: Specialized Language Instructor/Techni lg ID = [id number] for Bethany Aponte BASIC METABOLIC [id number] 14:41:00 Test Item Value Reference Range Interpretation Comments SODIUM (BEAKER) 149 meq/L 136-145 H (test code = 381) POTASSIUM (BEAKER) 3.7 meq/L 3.5-5.1 (test code = 379) CHLORIDE (BEAKER) 126 meq/L 98-107 H (test code = 382) CO2 (BEAKER) (test 21 meq/L 22-29 L code = 355) BLOOD UREA NITROGEN 10 mg/dL 7-21 (BEAKER) (test code = 354) CREATININE (BEAKER) 0.69 mg/dL 0.57-1.25 (test code = 358) GLUCOSE RANDOM 158 mg/dL 70-105 H (BEAKER) (test code = 652) CALCIUM (BEAKER) 7.2 mg/dL 8.4-10.2 L (test code = 697) EGFR (BEAKER) (test 111 mL/min/1.73 ESTIM ATED GFR IS code = 1092) sq m NOT ACCURATE CREATININE CLEARANCE IN PREDICTING GLOMERULAR FILTRATION RATE . ESTIMATED GFR I S NOT APPLICABLE FOR DIALYSIS PATIEN TS. Specialized Language Instructor ID - ALOK CHEMOGLOBIN AND [id number] 13:56:00 Test Item Value Reference Range Interpretation Comments HEMOGLOBIN (BEAKER) (test code = 7.5 GM/DL 13.7-17.5 L 410) HEMATOCRIT (BEAKER) (test code = 24.2 % 40.1-51.0 L 411) Specialized Language Instructor ID - [id number]-GLUCOSE [id number] 12:24:00 Test Item Value Reference Range Interpretation Comments POC-GLUCOSE METER 162 mg/dL 70-110 H : TESTED A T [facility] 6720 (BEAKER) (test code = [facility] Maria Elena [facility], 1538) [address]: Specialized Language Instructor/Techni lg ID = [id number] for Bethany Aponte BASIC METABOLIC [id number] 06:02:00 Test Item Value Reference Range Interpretation Comments SODIUM (BEAKER) 152 meq/L 136-145 H (test code = 381) POTASSIUM (BEAKER) 3.4 meq/L 3.5-5.1 L (test code = 379) CHLORIDE (BEAKER) 128 meq/L 98-107 H (test code = 382) CO2 (BEAKER) (test 22 meq/L 22-29 code = 355) BLOOD UREA NITROGEN 10 mg/dL 7-21 (BEAKER) (test code = 354) CREATININE (BEAKER) 0.79 mg/dL 0.57-1.25 (test code = 358) GLUCOSE RANDOM 141 mg/dL 70-105 H (BEAKER) (test code = 652) CALCIUM (BEAKER) 7.6 mg/dL 8.4-10.2 L (test code = 697) EGFR (BEAKER) (test 95 mL/min/1.73 ESTIMA POP GFR IS code = 1092) sq m NOT ACCURATE CREATININE CLEARANCE IN PREDICTING GLOMERULAR FILTRATION RATE . ESTIMATED GFR I S NOT APPLICABLE FOR DIALYSIS PATIEN TS. Specialized Language Instructor ID - [id number] 06:01:00 Test Item Value Reference Range Interpretation Comments PHOSPHORUS (BEAKER) (test code = 1.9 mg/dL 2.3-4.7 L 604) Specialized Language Instructor ID - [id number] 06:01:00 Test Item Value Reference Range Interpretation Comments MAGNESIUM (BEAKER) (test code = 1.8 mg/dL 1.6-2.6 627) Specialized Language Instructor ID - LAPOCT-GLUCOSE [id number] 06:00:00 Test Item Value Reference Range Interpretation Comments POC-GLUCOSE METER 139 mg/dL 70-110 H : TESTED A T [facility] 6720 (BEAKER) (test code = CHANG WILD MD, 1538) 10054: Specialized Language Instructor/Techni lg ID = [id number] for TYLER SANDOVAL CBC W/PLT COUNT & AUTO [id number] 05:57:00 Test Item Value Reference Range Interpretation Comments WHITE BLOOD CELL COUNT (BEAKER) 5.4 K/ L 3.5-10.5 (test code = 775) RED BLOOD CELL COUNT (BEAKER) 2.67 M/ L 4.63-6.08 L (test code = 761) HEMOGLOBIN (BEAKER) (test code = 7.7 GM/DL 13.7-17.5 L 410) HEMATOCRIT (BEAKER) (test code = 24.3 % 40.1-51.0 L 411) MEAN CORPUSCULAR VOLUME (BEAKER) 91.0 fL 79.0-92.2 (test code = 753) MEAN CORPUSCULAR HEMOGLOBIN 28.8 pg 25.7-32.2 (BEAKER) (test code = 751) MEAN CORPUSCULAR HEMOGLOBIN CONC 31.7 GM/DL 32.3-36.5 L (BEAKER) (test code = 752) RED CELL DISTRIBUTION WIDTH 21.1 % 11.6-14.4 H (BEAKER) (test code = 412) PLATELET COUNT (BEAKER) (test code 60 K/CU MM 150-450 L = 756) MEAN PLATELET VOLUME (BEAKER) 10.1 fL 9.4-12.4 (test code = 754) NUCLEATED RED BLOOD CELLS (BEAKER) 0 /100 WBC 0-0 (test code = 413) NEUTROPHILS RELATIVE PERCENT 58 % (BEAKER) (test code = 429) LYMPHOCYTES RELATIVE PERCENT 18 % (BEAKER) (test code = 430) MONOCYTES RELATIVE PERCENT 20 % (BEAKER) (test code = 431) EOSINOPHILS RELATIVE PERCENT 3 % (BEAKER) (test code = 432) BASOPHILS RELATIVE PERCENT 0 % (BEAKER) (test code = 437) NEUTROPHILS ABSOLUTE COUNT 3.12 K/ L 1.78-5.38 (BEAKER) (test code = 670) LYMPHOCYTES ABSOLUTE COUNT 0.97 K/ L 1.32-3.57 L (BEAKER) (test code = 414) MONOCYTES ABSOLUTE COUNT (BEAKER) 1.07 K/ L 0.30-0.82 H (test code = 415) EOSINOPHILS ABSOLUTE COUNT 0.16 K/ L 0.04-0.54 (BEAKER) (test code = 416) BASOPHILS ABSOLUTE COUNT (BEAKER) 0.01 K/ L 0.01-0.08 (test code = 417) IMMATURE GRANULOCYTES-RELATIVE 0 % 0-1 PERCENT (BEAKER) (test code = 2801) [id number] 05:46:00 Test Item Value Reference Range Interpretation Comments AMMONIA (BEAKER) (test code = 348) 25 mol/L 18-72 Specialized Language Instructor ID - LETITIA MBLOOD GAS, [id number] 05:38:00 Test Item Value Reference Range Interpretation Comments PH ARTERIAL (BEAKER) (test code = 7.54 7.35-7.45 H 383) PCO2 ARTERIAL (BEAKER) (test code 23 mmHg 35-45 L = 384) PO2 ARTERIAL (BEAKER) (test code 204 mmHg 80-90 H = 385) O2 SATURATION ARTERIAL (BEAKER) 99.5 % 96.0-97.0 H (test code = 386) HCO3 ARTERIAL (BEAKER) (test code 19 mmol/L 21-29 L = 388) BASE EXCESS ARTERIAL (BEAKER) -3.1 mmol/L -2.0-3.0 L (test code = 387) PATIENT TEMPERATURE (BEAKER) 37.0 C (test code = 1818) FIO2 (BEAKER) (test code = 1819) 40.0 % [id number] 05:34:00 Test Item Value Reference Range Interpretation Comments FIBRINOGEN LEVEL (BEAKER) (test 170 mg/dl 225-434 L code = 658) [id number] 05:34:00 Test Item Value Reference Range Interpretation Comments PROTIME (BEAKER) (test code = 23.0 seconds 11.9-14.2 H 759) INR (BEAKER) (test code = 370) 2.1 <=5.9 PARTIAL THROMBOPLASTIN TIME 36.5 seconds 22.5-36.0 H (BEAKER) (test code = 760) Effective 12/22/2018: PT Reference Range ChangeNew: 11.9-14.2 Previous: 11.7- 14.7RECOMMENDED COUMADIN/WARFARIN INR THERAPY RANGESSTANDARD DOSE: 2.0-3.0 Includes: PROPHYLAXIS for venous thrombosis, systemic embolization; TREATMENT for venous thrombosis and/or pulmonary embolus.HIGH RISK: Target INR is2.5-3.5 for patients wiht mechanical heart valves.RAD, CHEST, 1 VIEW, NON [id number] 04:21:00Reason for exam:->intubatedShould this be performed at the bedside?->YesFINAL REPORT RAD, CHEST, 1 VIEW, NON DEPT INDICATION: intubated COMPARISON: Prior day's exam FINDINGS: Portable frontal view of the chest. IMPRESSION: Support Lines: Stable. Lungs and pleura: No new airspace consolidation or sizable effusion. No pneumothorax.Heart and mediastinum: Stable contours. Additional findings: None. Signed: Kathe Bautista [facility] Verified Date/Time: 08/09/2019 04:21:11 POCT-GLUCOSE [id number] 00:18:00 Test Item Value Reference Range Interpretation Comments POC-GLUCOSE METER 160 mg/dL 70-110 H : TESTED A T [facility] 6720 (BEGAY) (test code = [facility], 1538) 19[address]: Specialized Language Instructor/Techni lg ID = [id number] for TYLER SANDOVAL HEMOGLOBIN AND [id number] 23:24:00 Test Item Value Reference Range Interpretation Comments HEMOGLOBIN (BEGAY) (test code = 8.1 GM/DL 13.7-17.5 L 410) HEMATOCRIT (BEAKER) (test code = 26.2 % 40.1-51.0 L 411) Specialized Language Instructor ID - [id number]-GLUCOSE [id number] 20:19:00 Test Item Value Reference Range Interpretation Comments POC-GLUCOSE METER 147 mg/dL 70-110 H : TESTED A T [facility] 6720 (BEAKER) (test code = [facility] [place], 1538) 38[address]: Specialized Language Instructor/Techni lg ID = [id number] for STACEY RTINEZ, BRITTANY TSH/Free T4 If [id number] 11:50:00 Test Item Value Reference Range Interpretation Comments TSH (test code = 38464-3) 0.38 0.35- 4.94 uIU/mL GINA (test code = GINA) Specialized Language Instructor ID - LETITIA M Lab Interpretation (test Normal code = 53839-2) [facility] CenterT[facility] T4 IF [id number] 11:50:00 Test Item Value Reference Range Interpretation Comments THYROID STIMULATING HORMONE 0.38 uIU/mL 0.35-4.94 (BEAKER) (test code = 772) Specialized Language Instructor ID - LETITIA MHEMOGLOBIN AND [id number] 11:07:00 Test Item Value Reference Range Interpretation Comments HEMOGLOBIN (BEAKER) (test code = 8.1 GM/DL 13.7-17.5 L 410) HEMATOCRIT (BEAKER) (test code = 25.4 % 40.1-51.0 L 411) Specialized Language Instructor ID - [id number], CHEST, 1 VIEW, NON [id number] 09:15:00Reason for exam:->intubatedShould this be performed at the bedside?->YesFINAL REPORT [...] MDReport Verified Date/Time: 08/08/2019 09:15:50 Reading Location: [facility] Radiology Reading Room Electronically signed by: FREDI GABRIEL M.D.on 08/08/2019 09:15 AMBASIC METABOLIC [id number] 07:09:00 Test Item Value Reference Range Interpretation Comments SODIUM (BEAKER) 148 meq/L 136-145 H (test code = 381) POTASSIUM (BEAKER) 3.2 meq/L 3.5-5.1 L (test code = 379) CHLORIDE (BEAKER) 125 meq/L 98-107 H (test code = 382) CO2 (BEAKER) (test 16 meq/L 22-29 L code = 355) BLOOD UREA NITROGEN 16 mg/dL 7-21 (BEAKER) (test code = 354) CREATININE (BEAKER) 0.81 mg/dL 0.57-1.25 (test code = 358) GLUCOSE RANDOM 135 mg/dL 70-105 H (BEAKER) (test code = 652) CALCIUM (BEAKER) 7.6 mg/dL 8.4-10.2 L (test code = 697) EGFR (BEAKER) (test 92 mL/min/1.73 ESTIMA POP GFR IS code = 1092) sq m NOT ACCURATE CREATININE CLEARANCE IN PREDICTING GLOMERULAR FILTRATION RATE . ESTIMATED GFR I S NOT APPLICABLE FOR DIALYSIS PATIEN TS. Specialized Language Instructor ID - ZANpecimen slightly [id number] 07:07:00 Test Item Value Reference Range Interpretation Comments PHOSPHORUS (BEAKER) (test code = 2.5 mg/dL 2.3-4.7 604) Specialized Language Instructor ID - [id number] 07:07:00 Test Item Value Reference Range Interpretation Comments MAGNESIUM (BEAKER) (test code = 2.0 mg/dL 1.6-2.6 627) Specialized Language Instructor ID - SANDYNPOCT-GLUCOSE [id number] 06:56:00 Test Item Value Reference Range Interpretation Comments POC-GLUCOSE METER 167 mg/dL 70-110 H : TESTED A T [facility] 6720 (BEAKER) (test code = CHANG BOLES, 1538) [address]: Specialized Language Instructor/Techni lg ID = [id number] for IVAN MONGE Urine [id number] 06:44:00 Test Item Value Reference Range Interpretation Comments Result (test code = 6463-4) [facility] 05:46:00 Test Item Value Reference Range Interpretation Comments AMMONIA (BEAKER) (test code = 348) 70 mol/L 18-72 Specialized Language Instructor ID - MARCE GAS, [id number] 04:22:00 Test Item Value Reference Range Interpretation Comments PH ARTERIAL (BEAKER) (test code = 7.48 7.35-7.45 H 383) PCO2 ARTERIAL (BEAKER) (test code 23 mmHg 35-45 L = 384) PO2 ARTERIAL (BEAKER) (test code 165 mmHg 80-90 H = 385) O2 SATURATION ARTERIAL (BEAKER) 99.2 % 96.0-97.0 H (test code = 386) HCO3 ARTERIAL (BEAKER) (test code 17 mmol/L 21-29 L = 388) BASE EXCESS ARTERIAL (BEAKER) -5.3 mmol/L -2.0-3.0 L (test code = 387) PATIENT TEMPERATURE (BEAKER) 37.9 C (test code = 1818) FIO2 (BEAKER) (test code = 1819) 40.0 % [id number] 04:05:00 Test Item Value Reference Range Interpretation Comments FIBRINOGEN LEVEL (BEAKER) (test 169 mg/dl 225-434 L code = 658) CBC W/PLT COUNT & AUTO [id number] 04:01:00 Test Item Value Reference Range Interpretation Comments WHITE BLOOD CELL COUNT (BEAKER) 6.9 K/ L 3.5-10.5 (test code = 775) RED BLOOD CELL COUNT (BEAKER) 3.25 M/ L 4.63-6.08 L (test code = 761) HEMOGLOBIN (BEAKER) (test code = 9.5 GM/DL 13.7-17.5 L 410) HEMATOCRIT (BEAKER) (test code = 29.3 % 40.1-51.0 L 411) MEAN CORPUSCULAR VOLUME (BEAKER) 90.2 fL 79.0-92.2 (test code = 753) MEAN CORPUSCULAR HEMOGLOBIN 29.2 pg 25.7-32.2 (BEAKER) (test code = 751) MEAN CORPUSCULAR HEMOGLOBIN CONC 32.4 GM/DL 32.3-36.5 (BEAKER) (test code = 752) RED CELL DISTRIBUTION WIDTH 20.9 % 11.6-14.4 H (BEAKER) (test code = 412) PLATELET COUNT (BEAKER) (test code 80 K/CU MM 150-450 L = 756) MEAN PLATELET VOLUME (BEAKER) 10.1 fL 9.4-12.4 (test code = 754) NUCLEATED RED BLOOD CELLS (BEAKER) 0 /100 WBC 0-0 (test code = 413) NEUTROPHILS RELATIVE PERCENT 59 % (BEAKER) (test code = 429) LYMPHOCYTES RELATIVE PERCENT 19 % (BEAKER) (test code = 430) MONOCYTES RELATIVE PERCENT 18 % (BEAKER) (test code = 431) EOSINOPHILS RELATIVE PERCENT 3 % (BEAKER) (test code = 432) BASOPHILS RELATIVE PERCENT 0 % (BEAKER) (test code = 437) NEUTROPHILS ABSOLUTE COUNT 4.05 K/ L 1.78-5.38 (BEAKER) (test code = 670) LYMPHOCYTES ABSOLUTE COUNT 1.32 K/ L 1.32-3.57 (BEAKER) (test code = 414) MONOCYTES ABSOLUTE COUNT (BEAKER) 1.27 K/ L 0.30-0.82 H (test code = 415) EOSINOPHILS ABSOLUTE COUNT 0.23 K/ L 0.04-0.54 (BEAKER) (test code = 416) BASOPHILS ABSOLUTE COUNT (BEAKER) 0.03 K/ L 0.01-0.08 (test code = 417) IMMATURE GRANULOCYTES-RELATIVE 0 % 0-1 PERCENT (BEAKER) (test code = 2801) [id number] 04:00:00 Test Item Value Reference Range Interpretation Comments PROTIME (BEAKER) (test code = 20.8 seconds 11.9-14.2 H 759) INR (BEAKER) (test code = 370) 1.8 <=5.9 PARTIAL THROMBOPLASTIN TIME 35.0 seconds 22.5-36.0 (BEAKER) (test code = 760) Effective 12/22/2018: PT Reference Range ChangeNew: 11.9-14.2 Previous: 11.7- 14.7RECOMMENDED COUMADIN/WARFARIN INR THERAPY RANGESSTANDARD DOSE: 2.0-3.0 Includes: PROPHYLAXIS for venous thrombosis, systemic embolization; TREATMENT for venous thrombosis and/or pulmonary embolus.HIGH RISK: Target INR is2.5-3.5 for patients wiht mechanical heart valves.POCT-GLUCOSE [id number] 01:33:00 Test Item Value Reference Range Interpretation Comments POC-GLUCOSE METER 144 mg/dL 70-110 H : TESTED Selwyn Marquez [facility] 6720 (BEAKER) (test code = DAWNSAVITA WILD MD, 1538) [id number]: Specialized Language Instructor/Techni lg ID = [id number] for IVAN MONGE (CELLAVISION MANUAL DIFF)2019-08-07 22:37:00 Test Item Value Reference Range Interpretation Comments NEUTROPHILS - REL 76 % (CELLAVISION)(BEAKER) (test code = 2816) LYMPHOCYTES - REL 5 % (CELLAVISION)(BEAKER) (test code = 2817) MONOCYTES - REL 9 % (CELLAVISION)(BEAKER) (test code = 2818) EOSINOPHILS - REL 5 % (CELLAVISION)(BEAKER) (test code = 2819) BANDS - REL (CELLAVISION)(BEAKER) 5 % 0-10 (test code = 2826) NEUTROPHILS - ABS 6.69 K/ul 1.78-5.38 H (CELLAVISION)(BEAKER) (test code = 2830) LYMPHOCYTES - ABS 0.44 K/ul 1.32-3.57 L (CELLAVISION)(BEAKER) (test code = 2831) MONOCYTES - ABS 0.79 K/uL 0.30-0.82 (CELLAVISION)(BEAKER) (test code = 2832) EOSINOPHILS - ABS 0.44 K/uL 0.04-0.54 (CELLAVISION)(BEAKER) (test code = 2834) BANDS - ABS (CELLAVISION)(BEAKER) 0.44 K/uL 0.00-0.80 (test code = 2840) TOTAL COUNTED (BEAKER) (test code = 100 1351) SMUDGE CELLS (BEAKER) (test code = Present 1371) GIANT PLATELETS (BEAKER) (test code Present = 313) POLYCHROMATOPHILLIC RBCS(BEAKER) 1+ few (test code = 478) HYPOCHROMIA (BEAKER) (test code = 1+ few 963) ANISOCYTOSIS (BEAKER) (test code = 1+ few 961) POIKILOCYTES (BEAKER) (test code = 1+ few 966) OVALOCYTES (BEAKER) (test code = 1+ few 477) PLATELET CONCENTRATION Decreased (CELLAVISION)(BEAKER) (test code = 3438) Specialized Language Instructor ID - tricia Caro comments: Slide comments:PT/[id number] 19:32:00 Test Item Value Reference Range Interpretation Comments PROTIME (BEAKER) (test code = 21.2 seconds 11.9-14.2 H 759) INR (BEAKER) (test code = 370) 1.9 <=5.9 PARTIAL THROMBOPLASTIN TIME 33.0 seconds 22.5-36.0 (BEAKER) (test code = 760) Effective 12/22/2018: PT Reference Range ChangeNew: 11.9-14.2 Previous: 11.7- 14.7RECOMMENDED COUMADIN/WARFARIN INR THERAPY RANGESSTANDARD DOSE: 2.0-3.0 Includes: PROPHYLAXIS for venous thrombosis, systemic embolization; TREATMENT for venous thrombosis and/or pulmonary embolus.HIGH RISK: Target INR is2.5-3.5 for patients wiht mechanical heart valves.[id number] 19:32:00 Test Item Value Reference Range Interpretation Comments FIBRINOGEN LEVEL (BEAKER) (test 178 mg/dl 225-434 L code = 658) CBC W/PLT COUNT & AUTO [id number] 19:26:00 Test Item Value Reference Range Interpretation Comments WHITE BLOOD CELL COUNT (BEAKER) 8.8 K/ L 3.5-10.5 (test code = 775) RED BLOOD CELL COUNT (BEAKER) 3.38 M/ L 4.63-6.08 L (test code = 761) HEMOGLOBIN (BEAKER) (test code = 9.7 GM/DL 13.7-17.5 L 410) HEMATOCRIT (BEAKER) (test code = 30.2 % 40.1-51.0 L 411) MEAN CORPUSCULAR VOLUME (BEAKER) 89.3 fL 79.0-92.2 (test code = 753) MEAN CORPUSCULAR HEMOGLOBIN 28.7 pg 25.7-32.2 (BEAKER) (test code = 751) MEAN CORPUSCULAR HEMOGLOBIN CONC 32.1 GM/DL 32.3-36.5 L (BEAKER) (test code = 752) RED CELL DISTRIBUTION WIDTH 21.1 % 11.6-14.4 H (BEAKER) (test code = 412) PLATELET COUNT (BEAKER) (test code 89 K/CU MM 150-450 L = 756) MEAN PLATELET VOLUME (BEAKER) 9.8 fL 9.4-12.4 (test code = 754) NUCLEATED RED BLOOD CELLS (BEAKER) 0 /100 WBC 0-0 (test code = 413) BLOOD GAS, [id number] 19:21:00 Test Item Value Reference Range Interpretation Comments PH ARTERIAL (BEAKER) (test code = 7.41 7.35-7.45 383) PCO2 ARTERIAL (BEAKER) (test code 29 mmHg 35-45 L = 384) PO2 ARTERIAL (BEAKER) (test code 71 mmHg 80-90 L = 385) O2 SATURATION ARTERIAL (BEAKER) 94.6 % 96.0-97.0 L (test code = 386) HCO3 ARTERIAL (BEAKER) (test code 18 mmol/L 21-29 L = 388) BASE EXCESS ARTERIAL (BEAKER) -6.2 mmol/L -2.0-3.0 L (test code = 387) PATIENT TEMPERATURE (BEAKER) 37.0 C (test code = 1818) FIO2 (BEAKER) (test code = 1819) 40.0 % HEMOGLOBIN AND [id number] 19:21:00 Test Item Value Reference Range Interpretation Comments HEMOGLOBIN (BEAKER) (test code = 9.7 GM/DL 13.7-17.5 L 410) HEMATOCRIT (BEAKER) (test code = 30.2 % 40.1-51.0 L 411) Specialized Language Instructor ID - [id number] [id number] 18:56:00 Test Item Value Reference Range Interpretation Comments TROPONIN I (BEAKER) (test code = 4.92 ng/mL 0.00-0.03 HH 397) Troponin I (TnI) levels must be interpreted [...] failure, acidosis, acute neurological disease, and persistent tachyarrhythmia.Specialized Language Instructor ID - HIREN FOperator ID - CAROLINA FRAD, CHEST, 1 VIEW, NON [id number] 18:31:00Post-intubationReason for exam:->post intubationShould this be performed at the bedside?->Yes FINAL REPORT RAD, CHEST, 1 VIEW, NON [...] surgery is suggested..Additional findings: None. Signed: Priti Araujoeport Verified Date/Time: 08/07/2019 18:31:13 Reading Location: [address] Neuro Reading Room CBC (Hemogram only)2019-08-07 16:29:00 Test Item Value Reference Range Interpretation Comments WBC (test code = 6690-2) 7.5 3.5- 10.5 K/L RBC (test code = 789-8) 3.13 4.63- 6.08 M/L L MCHC (test code = 786-4) 32.8 32.3- 36.5 GM/DL L Hematocrit (test code = 4544-3) 27.4 % 40.1-51 L MCV (test code = 787-2) 87.5 fL 79-92.2 MCH (test code = 785-6) 28.8 pg 25.7-32.2 RDW (test code = 788-0) 20.8 % 11.6-14.4 H Platelets (test code = 777-3) 81 150- 450 K/CU MM L MPV (test code = 53889-4) 9.4 fL 9.4-12.4 nRBC (test code = 413) 0 0- 0 /100 WBC Lab Interpretation (test code = Abnormal 10126-7) [facility] 16:29:00 Test Item Value Reference Range Interpretation Comments WHITE BLOOD CELL COUNT (BEAKER) 7.5 K/ L 3.5-10.5 (test code = 775) RED BLOOD CELL COUNT (BEAKER) 3.13 M/ L 4.63-6.08 L (test code = 761) HEMOGLOBIN (BEAKER) (test code = 9.0 GM/DL 13.7-17.5 L 410) HEMATOCRIT (BEAKER) (test code = 27.4 % 40.1-51.0 L 411) MEAN CORPUSCULAR VOLUME (BEAKER) 87.5 fL 79.0-92.2 (test code = 753) MEAN CORPUSCULAR HEMOGLOBIN 28.8 pg 25.7-32.2 (BEAKER) (test code = 751) MEAN CORPUSCULAR HEMOGLOBIN CONC 32.8 GM/DL 32.3-36.5 (BEAKER) (test code = 752) RED CELL DISTRIBUTION WIDTH 20.8 % 11.6-14.4 H (BEAKER) (test code = 412) PLATELET COUNT (BEAKER) (test code 81 K/CU MM 150-450 L = 756) MEAN PLATELET VOLUME (BEAKER) 9.4 fL 9.4-12.4 (test code = 754) NUCLEATED RED BLOOD CELLS (BEAKER) 0 /100 WBC 0-0 (test code = 413) TROPONIN [id number] 08:41:00 Test Item Value Reference Range Interpretation Comments TROPONIN I (BEAKER) (test code = 5.37 ng/mL 0.00-0.03 HH 397) Troponin I (TnI) levels must be interpreted [...] failure, acidosis, acute neurological disease, and persistent tachyarrhythmia.Specialized Language Instructor ID - HIREN FCT, BRAIN, WITHOUT [id number] 08:36:00FINAL REPORT CT, BRAIN, WITHOUT CONTRAST CLINICAL INDICATION: altered mentalstatus, hyperammonia COMPARISON: None TECHNIQUE: Noncontrast axial CT imaging of the brain and skull. DOSE REDUCTION: Dose modulation, iterative reconstruction, and/or weight-based adjustment of the mA/kV [...] is recommended for further characterization. Signed: Priti Araujo Verified Date/Time: 08/07/2019 08:36:10 Reading Location: [address] Neuro Reading Room CT brain without IV [id number] 08:36:00Interface, External Ris In - 08/07/2019 8:[address], BRAIN, WITHOUT CONTRAST CLINICAL INDICATION: altered mental status, hyperammonia COMPARISON: None TECHNIQUE: Noncontrast axial CT imaging of the brain and skull. DOSE REDUCTION: Dose modulation, iterative reconstruction, and/or weight-based adjustment of the mA/kV was utilized to reduce the radiation dose to as low as reasonably achievable. FINDINGS:No intracranial hemorrhage, midline shift or mass effect. Midline structures are normally developed. Mild chronic microvascular ischemic changes of the periventricular and subcortical white matter are present. Remote lacunar infarct in the left basal ganglia. No hydrocephalus. Atherosclerotic calcification of the intracranial internal carotid and vertebral arteries. Orbits [...] is recommended for further characterization. Signed: Priti Araujo Verified Date/Time: 08/07/2019 08:36:10 Reading Location: [facility] C013V Neuro Reading Room [facility] (HEMOGRAM ONLY)2019-08-07 08:24:00 Test Item Value Reference Range Interpretation Comments WHITE BLOOD CELL COUNT (BEAKER) 6.4 K/ L 3.5-10.5 (test code = 775) RED BLOOD CELL COUNT (BEAKER) 3.00 M/ L 4.63-6.08 L (test code = 761) HEMOGLOBIN (BEAKER) (test code = 8.8 GM/DL 13.7-17.5 L 410) HEMATOCRIT (BEAKER) (test code = 25.9 % 40.1-51.0 L 411) MEAN CORPUSCULAR VOLUME (BEAKER) 86.3 fL 79.0-92.2 (test code = 753) MEAN CORPUSCULAR HEMOGLOBIN 29.3 pg 25.7-32.2 (BEAKER) (test code = 751) MEAN CORPUSCULAR HEMOGLOBIN CONC 34.0 GM/DL 32.3-36.5 (BEAKER) (test code = 752) RED CELL DISTRIBUTION WIDTH 20.3 % 11.6-14.4 H (BEAKER) (test code = 412) PLATELET COUNT (BEAKER) (test code 70 K/CU MM 150-450 L = 756) MEAN PLATELET VOLUME (BEAKER) 10.0 fL 9.4-12.4 (test code = 754) NUCLEATED RED BLOOD CELLS (BEAKER) 0 /100 WBC 0-0 (test code = 413) [id number] 08:22:00 Test Item Value Reference Range Interpretation Comments AMMONIA (BEAKER) (test code = 348) 69 mol/L 18-72 Specialized Language Instructor ID - HIREN FPOCT-GLUCOSE [id number] 06:03:00 Test Item Value Reference Range Interpretation Comments POC-GLUCOSE METER 157 mg/dL 70-110 H : [facility] ([facility] (test code = CHANG BOLES, 1538) [address]: Specialized Language Instructor/Techni lg ID = [id number] for IVAN MONGE [id number] 03:06:00 Test Item Value Reference Range Interpretation Comments AMMONIA (BEAKER) 240 mol/L 18-72 H Specimen sl ightly (test code = 348) hemolyzed Specialized Language Instructor ID - LETITIA MBLOOD GAS, [id number] 02:41:00 Test Item Value Reference Range Interpretation Comments PH ARTERIAL (BEAKER) (test code = 7.55 7.35-7.45 H 383) PCO2 ARTERIAL (BEAKER) (test code 20 mmHg 35-45 LL = 384) PO2 ARTERIAL (BEAKER) (test code 193 mmHg 80-90 H = 385) O2 SATURATION ARTERIAL (BEAKER) 99.5 % 96.0-97.0 H (test code = 386) HCO3 ARTERIAL (BEAKER) (test code 17 mmol/L 21-29 L = 388) BASE EXCESS ARTERIAL (BEAKER) -3.7 mmol/L -2.0-3.0 L (test code = 387) PATIENT TEMPERATURE (BEAKER) 37.0 C (test code = 1818) FIO2 (BEAKER) (test code = 1819) 40.0 % TROPONIN [id number] 02:29:00 Test Item Value Reference Range Interpretation Comments TROPONIN I (BEAKER) (test code = 7.26 ng/mL 0.00-0.03 HH 397) Troponin I (TnI) levels must be interpreted [...] failure, acidosis, acute neurological disease, and persistent tachyarrhythmia.Specialized Language Instructor ID - LETITIA MBASIC METABOLIC [id number] 02:28:00 Test Item Value Reference Range Interpretation Comments SODIUM (BEAKER) 142 meq/L 136-145 (test code = 381) POTASSIUM (BEAKER) 3.8 meq/L 3.5-5.1 (test code = 379) CHLORIDE (BEAKER) 117 meq/L 98-107 H (test code = 382) CO2 (BEAKER) (test 19 meq/L 22-29 L code = 355) BLOOD UREA NITROGEN 28 mg/dL 7-21 H (BEAKER) (test code = 354) CREATININE (BEAKER) 0.87 mg/dL 0.57-1.25 (test code = 358) GLUCOSE RANDOM 157 mg/dL 70-105 H (BEAKER) (test code = 652) CALCIUM (BEAKER) 7.6 mg/dL 8.4-10.2 L (test code = 697) EGFR (BEAKER) (test 85 mL/min/1.73 ESTIMA POP GFR IS code = 1092) sq m NOT ACCURATE CREATININE CLEARANCE IN PREDICTING GLOMERULAR FILTRATION RATE . ESTIMATED GFR I S NOT APPLICABLE FOR DIALYSIS PATIEN TS. Specialized Language Instructor ID - LETITIA MSpecimen slightly ictericLactic acid, [id number] 02:05:00 Test Item Value Reference Range Interpretation Comments Lactate, Venous (test code 2.0 mmol/L 0.5-2.2 = 2872) GINA (test code = GINA) Specialized Language Instructor ID - LETITIA M Lab Interpretation (test Normal code = 56925-3) [facility] CenterLACTIC ACID, [id number] 02:05:00 Test Item Value Reference Range Interpretation Comments LACTATE BLOOD VENOUS (2) (BEAKER) 2.0 mmol/L 0.5-2.2 (test code = 2872) Specialized Language Instructor ID - LETITIA [id number] 02:03:00 Test Item Value Reference Range Interpretation Comments MAGNESIUM (BEAKER) (test code = 2.0 mg/dL 1.6-2.6 627) Specialized Language Instructor ID - LETITIA MCBC W/PLT COUNT & AUTO [id number] 01:54:00 Test Item Value Reference Range Interpretation Comments WHITE BLOOD CELL COUNT (BEAKER) 8.1 K/ L 3.5-10.5 (test code = 775) RED BLOOD CELL COUNT (BEAKER) 3.11 M/ L 4.63-6.08 L (test code = 761) HEMOGLOBIN (BEAKER) (test code = 9.0 GM/DL 13.7-17.5 L 410) HEMATOCRIT (BEAKER) (test code = 26.8 % 40.1-51.0 L 411) MEAN CORPUSCULAR VOLUME (BEAKER) 86.2 fL 79.0-92.2 (test code = 753) MEAN CORPUSCULAR HEMOGLOBIN 28.9 pg 25.7-32.2 (BEAKER) (test code = 751) MEAN CORPUSCULAR HEMOGLOBIN CONC 33.6 GM/DL 32.3-36.5 (BEAKER) (test code = 752) RED CELL DISTRIBUTION WIDTH 19.9 % 11.6-14.4 H (BEAKER) (test code = 412) PLATELET COUNT (BEAKER) (test code 73 K/CU MM 150-450 L = 756) MEAN PLATELET VOLUME (BEAKER) 10.5 fL 9.4-12.4 (test code = 754) NUCLEATED RED BLOOD CELLS (BEAKER) 0 /100 WBC 0-0 (test code = 413) NEUTROPHILS RELATIVE PERCENT 66 % (BEAKER) (test code = 429) LYMPHOCYTES RELATIVE PERCENT 15 % (BEAKER) (test code = 430) MONOCYTES RELATIVE PERCENT 17 % (BEAKER) (test code = 431) EOSINOPHILS RELATIVE PERCENT 1 % (BEAKER) (test code = 432) BASOPHILS RELATIVE PERCENT 0 % (BEAKER) (test code = 437) NEUTROPHILS ABSOLUTE COUNT 5.30 K/ L 1.78-5.38 (BEAKER) (test code = 670) LYMPHOCYTES ABSOLUTE COUNT 1.24 K/ L 1.32-3.57 L (BEAKER) (test code = 414) MONOCYTES ABSOLUTE COUNT (BEAKER) 1.40 K/ L 0.30-0.82 H (test code = 415) EOSINOPHILS ABSOLUTE COUNT 0.10 K/ L 0.04-0.54 (BEAKER) (test code = 416) BASOPHILS ABSOLUTE COUNT (BEAKER) 0.01 K/ L 0.01-0.08 (test code = 417) IMMATURE GRANULOCYTES-RELATIVE 0 % 0-1 PERCENT (BEAKER) (test code = 2801) CBC (HEMOGRAM ONLY)2019-08-07 01:41:00 Test Item Value Reference Range Interpretation Comments WHITE BLOOD CELL COUNT (BEAKER) 8.1 K/ L 3.5-10.5 (test code = 775) RED BLOOD CELL COUNT (BEAKER) 3.11 M/ L 4.63-6.08 L (test code = 761) HEMOGLOBIN (BEAKER) (test code = 9.0 GM/DL 13.7-17.5 L 410) HEMATOCRIT (BEAKER) (test code = 26.8 % 40.1-51.0 L 411) MEAN CORPUSCULAR VOLUME (BEAKER) 86.2 fL 79.0-92.2 (test code = 753) MEAN CORPUSCULAR HEMOGLOBIN 28.9 pg 25.7-32.2 (BEAKER) (test code = 751) MEAN CORPUSCULAR HEMOGLOBIN CONC 33.6 GM/DL 32.3-36.5 (BEAKER) (test code = 752) RED CELL DISTRIBUTION WIDTH 19.9 % 11.6-14.4 H (BEAKER) (test code = 412) PLATELET COUNT (BEAKER) (test code 73 K/CU MM 150-450 L = 756) MEAN PLATELET VOLUME (BEAKER) 10.5 fL 9.4-12.4 (test code = 754) NUCLEATED RED BLOOD CELLS (BEAKER) 0 /100 WBC 0-0 (test code = 413) CBC (HEMOGRAM ONLY)2019-08-06 18:15:00 Test Item Value Reference Range Interpretation Comments WHITE BLOOD CELL COUNT (BEAKER) 11.0 K/ L 3.5-10.5 H (test code = 775) RED BLOOD CELL COUNT (BEAKER) 3.23 M/ L 4.63-6.08 L (test code = 761) HEMOGLOBIN (BEAKER) (test code = 9.2 GM/DL 13.7-17.5 L 410) HEMATOCRIT (BEAKER) (test code = 27.3 % 40.1-51.0 L 411) MEAN CORPUSCULAR VOLUME (BEAKER) 84.5 fL 79.0-92.2 (test code = 753) MEAN CORPUSCULAR HEMOGLOBIN 28.5 pg 25.7-32.2 (BEAKER) (test code = 751) MEAN CORPUSCULAR HEMOGLOBIN CONC 33.7 GM/DL 32.3-36.5 (BEAKER) (test code = 752) RED CELL DISTRIBUTION WIDTH 19.9 % 11.6-14.4 H (BEAKER) (test code = 412) PLATELET COUNT (BEAKER) (test code 75 K/CU MM 150-450 L = 756) MEAN PLATELET VOLUME (BEAKER) 9.7 fL 9.4-12.4 (test code = 754) NUCLEATED RED BLOOD CELLS (BEAKER) 0 /100 WBC 0-0 (test code = 413) 2D Echo W/Doppler(CW/PW/Color)2019-08-06 16:03:25Ejection FractionSLE ECHO HEARTLAB MKCKESSON CPACSInterface, External Ris In - 08/06/2019 4:03 PM C STTransthoracic Echocardiography Report (TTE) Demographics Patient Name JUSTUS TOMPKINS Date of Study 08/06/2019 ABBY LÓPEZ Gender Male Visit Number [id number] Race Room Number 7517 Number Date of 1940 Referring Cheikh Colon Physician Age 79 year(s) 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 Amount - 2 mlHeight: 72 inches Weight: 73.03 kg (161 lbs) BSA: 1.94 m^2 BMI: 21.84 kg/m^2HR: 95 bpm BP: 150/42 mmHg Summary The [...] Mild concentric LV hypertrophy. The following segment(s) ap pear severely hypokinetic: apex . The other segments contract normally. LVEF by Bolanos's method of disk assessment is normal (55-60%) . Left Atrium LA size is moderately enlarged (42-48 ml/m2) . Right Ventricle The right ventricular chamber size and systolic functionare within normal limits. Right Atrium RA cavity size is normal . Aortic Valve Mild AoV cusp calcification. Mild aortic stenosis. AoVarea at rest by continuity equation is in the range of 1.86 cm2. Mitral Valve Mild MV leaflet thickening. Mild-moderate mitral annular calcification. Tricuspid Valve Unable to estimate peak systolic PA pressure; inadequate TR velocity signal. Pulmonic Valve PV is not well visualized; function appears normal by Doppler visualized. Aorta Aortic root size (Sinus of Valsalva diameter) is mildly dilated. 3.6 cm Proximal ascending aorta size mildly dilated . 3.7 cm Pericardium No significant pericardial effusion is visualized. IVC/SVC/PA/PV/Pleural The right upper [...] Bolanos's: 58.5 % LVESVI: 15 ml/m^2 LVOT Diameter:1.9 cm Right Ventricle TAPSE: 2.51 cm Aorta Ao Root S of Rosio.: 3.64 cm Ascending Aorta: 3.68 cm Doppler/Quantitative Measurements Mitral Valve MV Peak E-Wave: 1.31 m/s MV Peak A-Wave: 1.56 m/s P1/2t: 76.8 msec E/A Ratio: 0.84 Peak Gradient: 6.89 mmHg Deceleration Time: 276.3 msec MV Area (PHT): 2.86 cm^2 MV Иван. Peak: Tissue Doppler E' Septal Velocity: 0.05 m/s E/E': 24.07 E' Lateral Velocity: 0.05 m/s Aortic Valve Peak Velocity: 2.09 m/s Mean Velocity: 1.49 m/s Peak Gradient: 17.49 mmHg Mean Gradient: 10.01 mmHg AV Area (continuity): 1.8 cm^2 Area (2D): 1.7 cm^2 AV VTI: 43.14 cm AV DVI: 0.64 LVOT Peak Velocity: 1.18 m/s Peak Gradient: 5.57 mmHg Mean Velocity: 0.84 m/s MeanGradient: 3.2 mmHg LVOT Diameter: 1.9 cm LVOT VTI: 27.46 cm LVOT Area: 2.84 cm^2 LVOT SV:77.82 ml LVOT CO: 7.39 l/min LVOT CI: 3.81 l/min/m^2[facility], 1 VIEW [id number] 12:30:00Reason for exam:->NG tube placementShould this be performed at the bedside?->YesFINAL REPORT TECHNIQUE: Single View of the Abdomen. INDICATION: NG tube placem ent. COMPARISON: Chest radiograph from 02/10/2019. FINDINGS/IMPRESSION: The [...] Calcification of the aortoiliac vasculature. Signed: Monet Meyer MDReport Verified Date/Time: 08/06/2019 12:30:26 Reading Location: [facility] C013Y CT Body Reading Room Electronically signed by: Ana SHEPPARD 08/06/2019 12:30 PMXR abdomen / KUB 1 [id number] 12:30:00Interface, External Ris In - 08/06/2019 12:33 PM CSTFINAL REPORT TECHNIQUE: Single View of the Abdomen. [...] bladder. Calcification of the aortoiliac vasculature. Signed: Victor M Meyer Verified Date/Time: 08/06/2019 12:30:26 Reading Location: [facility] B1 C013Y CT Body Reading [facility] [id number] 12:19:00 Test Item Value Reference Range Interpretation Comments Urea Nitrogen, Ur 756 mg/dL (test code = 3095-7) GINA (test code = Reference Range: No GINA) NormalsOperator ID - [facility]IR[facility] CenterURE[facility]ITROGEN, RANDOM [id number] 12:19:00 Test Item Value Reference Range Interpretation Comments UREA NITROGEN URINE (BEAKER) (test 756 mg/dL code = 538) Reference Range: No NormalsOperator ID - HIREN FSodium, random urine 2019-08-06 11:53:00 Test Item Value Reference Range Interpretation Comments Sodium Urine (test <20 meq/L code = 2955-3) GINA (test code = Reference Range: No GINA) NormalsOperator ID - [facility] [id number] 11:53:00 Test Item Value Reference Range Interpretation Comments SODIUM URINE (BEAKER) (test code = < meq/L 243) Reference Range: No NormalsOperator ID - HIREN FChloride, random urine 2019-08-06 11:40:00 Test Item Value Reference Range Interpretation Comments ChlorideUr (test 22 meq/L code = 43509-9) GINA (test code = Reference Range: No GINA) NormalsOperator ID [facility] Center[facility] [id number] 11:40:00 Test Item Value Reference Range Interpretation Comments Creatinine, Ur 96.4 mg/dL (test code = 2161-8) GINA (test code = Reference Range: No GINA) NormalsOperator ID - HIREN Snell [facility] CenterPot[facility] random [id number] 11:40:00 Test Item Value Reference Range Interpretation Comments Potassium Urine 65.2 meq/L (test code = 2828-2) GINA (test code = Reference Range: No GINA) NormalsOperator ID - HIREN Snell [facility] HospitalCHLORIDE, RANDOM [id number] 11:40:00 Test Item Value Reference Range Interpretation Comments CHLORIDE URINE (BEAKER) (test code = 22 meq/L 682) Reference Range: No NormalsOperator ID - HIREN FCREATININE, RANDOM URINE 2019-08-06 11:40:00 Test Item Value Reference Range Interpretation Comments CREATININE URINE (BEAKER) (test 96.4 mg/dL code = 375) Reference Range: No NormalsOperator ID John MARADIAGA FPOTASSIUM, RANDOM URINE 2019-08-06 11:40:00 Test Item Value Reference Range Interpretation Comments POTASSIUM URINE (BEAKER) (test 65.2 meq/L code = 195) Reference Range: No NormalsOperator WILIAM MARADIAGA FTROPONIN [id number] 08:54:00 Test Item Value Reference Range Interpretation Comments TROPONIN I (BEAKER) (test code = 19.39 ng/mL 0.00-0.03 HH 397) Troponin I (TnI) levels must be interpreted [...] failure, acidosis, acute neurological disease, and persistent tachyarrhythmia.Specialized Language Instructor ID - HIREN FCBC W/PLT COUNT & AUTO [id number] 06:50:00 Test Item Value Reference Range Interpretation Comments WHITE BLOOD CELL COUNT (BEAKER) 7.8 K/ L 3.5-10.5 (test code = 775) RED BLOOD CELL COUNT (BEAKER) 2.59 M/ L 4.63-6.08 L (test code = 761) HEMOGLOBIN (BEAKER) (test code = 7.2 GM/DL 13.7-17.5 L 410) HEMATOCRIT (BEAKER) (test code = 22.5 % 40.1-51.0 L 411) MEAN CORPUSCULAR VOLUME (BEAKER) 86.9 fL 79.0-92.2 (test code = 753) MEAN CORPUSCULAR HEMOGLOBIN 27.8 pg 25.7-32.2 (BEAKER) (test code = 751) MEAN CORPUSCULAR HEMOGLOBIN CONC 32.0 GM/DL 32.3-36.5 L (BEAKER) (test code = 752) RED CELL DISTRIBUTION WIDTH 20.1 % 11.6-14.4 H (BEAKER) (test code = 412) PLATELET COUNT (BEAKER) (test code 60 K/CU MM 150-450 L = 756) MEAN PLATELET VOLUME (BEAKER) 10.1 fL 9.4-12.4 (test code = 754) NUCLEATED RED BLOOD CELLS (BEAKER) 0 /100 WBC 0-0 (test code = 413) NEUTROPHILS RELATIVE PERCENT 67 % (BEAKER) (test code = 429) LYMPHOCYTES RELATIVE PERCENT 18 % (BEAKER) (test code = 430) MONOCYTES RELATIVE PERCENT 15 % (BEAKER) (test code = 431) EOSINOPHILS RELATIVE PERCENT 0 % (BEAKER) (test code = 432) BASOPHILS RELATIVE PERCENT 0 % (BEAKER) (test code = 437) NEUTROPHILS ABSOLUTE COUNT 5.22 K/ L 1.78-5.38 (BEAKER) (test code = 670) LYMPHOCYTES ABSOLUTE COUNT 1.39 K/ L 1.32-3.57 (BEAKER) (test code = 414) MONOCYTES ABSOLUTE COUNT (BEAKER) 1.14 K/ L 0.30-0.82 H (test code = 415) EOSINOPHILS ABSOLUTE COUNT 0.01 K/ L 0.04-0.54 L (BEAKER) (test code = 416) BASOPHILS ABSOLUTE COUNT (BEAKER) 0.01 K/ L 0.01-0.08 (test code = 417) IMMATURE GRANULOCYTES-RELATIVE 1 % 0-1 PERCENT (BEAKER) (test code = 2801) POCT-GLUCOSE [id number] 06:03:00 Test Item Value Reference Range Interpretation Comments POC-GLUCOSE METER 146 mg/dL 70-110 H : TESTED A T [facility] 6720 (BEAKER) (test code = CHANG WILD MD, 3468) 76363: Specialized Language Instructor/Techni lg ID = [id number] for IVAN MONGE BASIC METABOLIC [id number] 04:26:00 Test Item Value Reference Range Interpretation Comments SODIUM (BEAKER) 137 meq/L 136-145 (test code = 381) POTASSIUM (BEAKER) 4.6 meq/L 3.5-5.1 (test code = 379) CHLORIDE (BEAKER) 115 meq/L 98-107 H (test code = 382) CO2 (BEAKER) (test 16 meq/L 22-29 L code = 355) BLOOD UREA NITROGEN 37 mg/dL 7-21 H (BEAKER) (test code = 354) CREATININE (BEAKER) 1.36 mg/dL 0.57-1.25 H (test code = 358) GLUCOSE RANDOM 207 mg/dL 70-105 H (BEAKER) (test code = 652) CALCIUM (BEAKER) 7.1 mg/dL 8.4-10.2 L (test code = 697) EGFR (BEAKER) (test 51 mL/min/1.73 ESTIMA POP GFR IS code = 1092) sq m NOT ACCURATE CREATININE CLEARANCE IN PREDICTING GLOMERULAR FILTRATION RATE . ESTIMATED GFR I S NOT APPLICABLE FOR DIALYSIS PATIEN TS. Specialized Language Instructor ID - LETITIA [id number] 04:20:00 Test Item Value Reference Range Interpretation Comments PHOSPHORUS (BEAKER) (test code = 3.7 mg/dL 2.3-4.7 604) Specialized Language Instructor ID - LETITIA [id number] 04:20:00 Test Item Value Reference Range Interpretation Comments MAGNESIUM (BEAKER) (test code = 1.8 mg/dL 1.6-2.6 627) Specialized Language Instructor ID - LETITIA MLACTIC ACID, [id number] 04:03:00 Test Item Value Reference Range Interpretation Comments LACTATE BLOOD VENOUS (2) (BEAKER) 2.8 mmol/L 0.5-2.2 H (test code = 2872) Specialized Language Instructor ID - LETITIA MUrinalysis w/Microscopic + Reflex to [id number] 02:45:00 Test Item Value Reference Range Interpretation Comments Color, UA (test code = Yellow 5778-6) Clarity, UA (test code = Clear 5767-9) Specific [place], UA (test 1.023 1.001-1.035 code = 5811-5) pH, UA (test code = 5.5 5.0-8.0 5803-2) Protein, UA (test code = 10 mg/dL Negative A 26331-3) Glucose, UA (test code = Negative Negative 365) Ketones, UA (test code = Trace Negative A 2514-8) Bilirubin, UA (test code = Negative Negative 66975-6) Blood, UA (test code = Small Negative A 80366-3) Nitrite, UA (test code = Negative Negative 5802-4) Leukocytes, UA (test code Moderate Negative A = 5799-2) Urobilinogen, UA (test 2.0 mg/dL 0.2-1 H code = 37300-5) RBC, UA (test code = 15 /HPF 81402-8) WBC, UA (test code = 11 /HPF 5821-4) Bacteria, UA (test code = Rare 99161-9) Mucus (test code = 8247-9) Rare Hyaline Casts, UA (test 18 /LPF code = 24518-4) Specimen Source (test code = 2795) GINA (test code = GINA) Specialized Language Instructor ID - [auto]Specialized Language Instructor ID - rayne Lab Interpretation (test Abnormal code = 12505-9) [facility] UR[facility] [id number] 02:45:00 Test Item Value Reference Range Interpretation Comments COLOR (BEAKER) (test code = 470) Yellow CLARITY (BEAKER) (test code = 469) Clear SPECIFIC GRAVITY UA (BEAKER) (test 1.023 1.001-1.035 code = 468) PH UA (BEAKER) (test code = 467) 5.5 5.0-8.0 PROTEIN UA (BEAKER) (test code = 10 mg/dL Negative A 464) GLUCOSE UA (BEAKER) (test code = Negative Negative 365) KETONES UA (BEAKER) (test code = Trace Negative A 371) BILIRUBIN UA (BEAKER) (test code = Negative Negative 462) BLOOD UA (BEAKER) (test code = 461) Small Negative A NITRITE UA (BEAKER) (test code = Negative Negative 465) LEUKOCYTE ESTERASE UA (BEAKER) Moderate Negative A (test code = 466) UROBILINOGEN UA (BEAKER) (test code 2.0 mg/dL 0.2-1.0 H = 463) RBC UA (BEAKER) (test code = 519) 15 /HPF WBC UA (BEAKER) (test code = 520) 11 /HPF BACTERIA (BEAKER) (test code = 517) Rare MUCUS (BEAKER) (test code = 1574) Rare HYALINE CASTS (BEAKER) (test code = 18 /LPF 514) SOURCE(BEAKER) (test code = 2795) Specialized Language Instructor ID - [auto]Specialized Language Instructor ID - Serena, CHEST, 1 VIEW, NON [id number] 02:16:00Reason for exam:->sobShould this be performed at the bedside?->Yes FINAL REPORT INDICATION: sob COMPARISON: 02/10/2019 TECHNIQUE: Single frontal view of the chest. FINDINGS: Lungs and pleura: No discrete airspace consolidation. No effusion.Heart and mediastinum: Normal heart size. Unremarkable mediastinal contours.Osseous structures: No acute abn ormality.Other: None. IMPRESSION: No acute intrathoracic abnormality. Signed: Kathe Bautista MDReportVerified Date/Time: 08/06/2019 02:16:57 TROPONIN I 2019-08-06 01:09:00 Test Item Value Reference Range Interpretation Comments TROPONIN I (BEAKER) (test code = 13.72 ng/mL 0.00-0.03 HH 397) Troponin I (TnI) levels must be interpreted [...] failure, acidosis, acute neurological disease, and persistent tachyarrhythmia.Specialized Language Instructor ID - LETITIA MBASIC METABOLIC [id number] 00:56:00 Test Item Value Reference Range Interpretation Comments SODIUM (BEAKER) 138 meq/L 136-145 (test code = 381) POTASSIUM (BEAKER) 5.1 meq/L 3.5-5.1 (test code = 379) CHLORIDE (BEAKER) 115 meq/L 98-107 H (test code = 382) CO2 (BEAKER) (test 16 meq/L 22-29 L code = 355) BLOOD UREA NITROGEN 34 mg/dL 7-21 H (BEAKER) (test code = 354) CREATININE (BEAKER) 1.40 mg/dL 0.57-1.25 H (test code = 358) GLUCOSE RANDOM 207 mg/dL 70-105 H (BEAKER) (test code = 652) CALCIUM (BEAKER) 7.1 mg/dL 8.4-10.2 L (test code = 697) EGFR (BEAKER) (test 49 mL/min/1.73 ESTIMA POP GFR IS code = 1092) sq m NOT ACCURATE CREATININE CLEARANCE IN PREDICTING GLOMERULAR FILTRATION RATE . ESTIMATED GFR I S NOT APPLICABLE FOR DIALYSIS PATIEN TS. Specialized Language Instructor ID - LETITIA MLACTIC ACID, [id number] 00:43:00 Test Item Value Reference Range Interpretation Comments LACTATE BLOOD VENOUS (2) (BEAKER) 5.2 mmol/L 0.5-2.2 H (test code = 2872) Specialized Language Instructor ID - LETITIA MRAD, CHEST, 1 VIEW, NON [id number] 00:14:00Reason for exam:->cvc checkShould this be performed [...] mediastinum:Stable contours. Additional findings: None. Signed: Kathe Bautistaeport Verified Date/Time: 08/06/2019 00:14:46 CBC W/PLT COUNT & AUTO [id number] 00:06:00 Test Item Value Reference Range Interpretation Comments WHITE BLOOD CELL COUNT (BEAKER) 11.3 K/ L 3.5-10.5 H (test code = 775) RED BLOOD CELL COUNT (BEAKER) 2.45 M/ L 4.63-6.08 L (test code = 761) HEMOGLOBIN (BEAKER) (test code = 7.0 GM/DL 13.7-17.5 L 410) HEMATOCRIT (BEAKER) (test code = 22.2 % 40.1-51.0 L 411) MEAN CORPUSCULAR VOLUME (BEAKER) 90.6 fL 79.0-92.2 (test code = 753) MEAN CORPUSCULAR HEMOGLOBIN 28.6 pg 25.7-32.2 (BEAKER) (test code = 751) MEAN CORPUSCULAR HEMOGLOBIN CONC 31.5 GM/DL 32.3-36.5 L (BEAKER) (test code = 752) RED CELL DISTRIBUTION WIDTH 21.3 % 11.6-14.4 H (BEAKER) (test code = 412) PLATELET COUNT (BEAKER) (test code 81 K/CU MM 150-450 L = 756) MEAN PLATELET VOLUME (BEAKER) 9.8 fL 9.4-12.4 (test code = 754) NUCLEATED RED BLOOD CELLS (BEAKER) 0 /100 WBC 0-0 (test code = 413) NEUTROPHILS RELATIVE PERCENT 74 % (BEAKER) (test code = 429) LYMPHOCYTES RELATIVE PERCENT 14 % (BEAKER) (test code = 430) MONOCYTES RELATIVE PERCENT 11 % (BEAKER) (test code = 431) EOSINOPHILS RELATIVE PERCENT 0 % (BEAKER) (test code = 432) BASOPHILS RELATIVE PERCENT 0 % (BEAKER) (test code = 437) NEUTROPHILS ABSOLUTE COUNT 8.39 K/ L 1.78-5.38 H (BEAKER) (test code = 670) LYMPHOCYTES ABSOLUTE COUNT 1.61 K/ L 1.32-3.57 (BEAKER) (test code = 414) MONOCYTES ABSOLUTE COUNT (BEAKER) 1.19 K/ L 0.30-0.82 H (test code = 415) EOSINOPHILS ABSOLUTE COUNT 0.01 K/ L 0.04-0.54 L (BEAKER) (test code = 416) BASOPHILS ABSOLUTE COUNT (BEAKER) 0.01 K/ L 0.01-0.08 (test code = 417) IMMATURE GRANULOCYTES-RELATIVE 1 % 0-1 PERCENT (BEAKER) (test code = 2800) Thromboelastograph (TEG)2019-08-05 21:36:00 Test Item Value Reference Range Interpretation Comments TEG Activated Clotting Time (test 4.8 4.0- 7.0 minutes code = 79123-9) TEG Fibrinogen Activity (test code 68.5 61.0- 73.0 degrees = 93780-6) TEG Platelet Aggregation (test code 56.4 55.0- 65.0 MM = 41992-0) TEG Fibrinolysis (test code = 0.0 % 0-5 16648-1) TEG-H Activated Clotting Time (test 4.6 4.0- 7.0 minutes code = 1411) TEG-H Fibrinogen Activity (test 68.3 61.0- 73.0 degrees code = 1412) TEG-H Platelet Aggregation (test 57.4 55.0- 65.0 MM code = 1413) TEG-H Fibrinolysis (test code = 0.5 % 0-5 1414) Lab Interpretation (test code = Normal 26120-8) [facility] Center[facility]ROMBOELASTOGRAPH ([facility]G)2019-08-05 21:36:00 Test Item Value Reference Range Interpretation Comments TEG ACTIVATED CLOTTING TIME 4.8 minutes 4.0-7.0 (BEAKER) (test code = 1407) TEG FIBRINOGEN ACTIVITY (BEAKER) 68.5 degrees 61.0-73.0 (test code = 1408) TEG PLT. AGGREGATION (BEAKER) 56.4 MM 55.0-65.0 (test code = 1409) TEG FIBRINOLYSIS (BEAKER) (test 0.0 % 0.0-5.0 code = 1410) TGH ACTIVATED CLOTTING TIME 4.6 minutes 4.0-7.0 (BEAKER) (test code = 1411) TGH FIBRINOGEN ACTIVITY (BEAKER) 68.3 degrees 61.0-73.0 (test code = 1412) TGH PLT. AGGREGATION (BEAKER) 57.4 MM 55.0-65.0 (test code = 1413) TGH FIBRINOLYSIS (BEAKER) (test 0.5 % 0.0-5.0 code = 1414) [id number] 21:31:00 Test Item Value Reference Range Interpretation Comments AMMONIA (BEAKER) 164 mol/L 18-72 H Specimen sl ightly (test code = 348) hemolyzed Specialized Language Instructor ID - DBTROPONIN [id number] 21:06:00 Test Item Value Reference Range Interpretation Comments TROPONIN I (BEAKER) (test code = 3.41 ng/mL 0.00-0.03 397) Troponin I (TnI) levels must be interpreted [...] failure, acidosis, acute neurological disease, and persistent tachyarrhythmia.Specialized Language Instructor ID - DBComprehensive metabolic [id number] 20:43:00 Test Item Value Reference Range Interpretation Comments Protein, Total (test 4.4 6.0- 8.3 gm/dL L code = 2885-2) Albumin (test code = 2.1 g/dL 3.5-5 L 58016-4) Alkaline Phosphatase 70 U/L 40-150 (test code = 6768-6) Total Bilirubin (test 1.7 mg/dL 0.2-1.2 H code = 1975-2) Sodium (test code = 137 meq/L 311-749 0641-2) Potassium (test code = 5.5 meq/L 3.5-5.1 H 2823-3) Chloride (test code = 112 meq/L 98-107 H 2075-0) CO2 (test code = 14 meq/L 22-29 L 2028-9) BUN (test code = 28 mg/dL 7-21 H 3094-0) Creatinine (test code 1.39 mg/dL 0.57-1.25 H = 2160-0) Glucose (test code = 176 mg/dL 70-105 H 2345-7) Calcium (test code = 7.3 mg/dL 8.4-10.2 L 81339-2) AST (test code = 83 U/L 5-34 H 1920-8) ALT (test code = 34 U/L 6-55 1742-6) EGFR (test code = 49 mL/min/1.73 [place] [address]-3) NOT ACCURATE CREATININE CLEARANCE IN PREDICTING GLOMERULAR FILTRATION RATE . ESTIMATED GFR I S NOT APPLICABLE FOR DIALYSIS PATIENTS. GINA (test code = GINA) Specialized Language Instructor ID - DB Lab Interpretation Abnormal (test code = 53694-5) [facility] CenterCOMPREHENSIVE METABOLIC [id number] 20:43:00 Test Item Value Reference Range Interpretation Comments TOTAL PROTEIN 4.4 gm/dL 6.0-8.3 L (BEAKER) (test code = 770) ALBUMIN (BEAKER) 2.1 g/dL 3.5-5.0 L (test code = 1145) ALKALINE PHOSPHATASE 70 U/L 40-150 (BEAKER) (test code = 346) BILIRUBIN TOTAL 1.7 mg/dL 0.2-1.2 H (BEAKER) (test code = 377) SODIUM (BEAKER) (test 137 meq/L 136-145 code = 381) POTASSIUM (BEAKER) 5.5 meq/L 3.5-5.1 H (test code = 379) CHLORIDE (BEAKER) 112 meq/L 98-107 H (test code = 382) CO2 (BEAKER) (test 14 meq/L 22-29 L code = 355) BLOOD UREA NITROGEN 28 mg/dL 7-21 H (BEAKER) (test code = 354) CREATININE (BEAKER) 1.39 mg/dL 0.57-1.25 H (test code = 358) GLUCOSE RANDOM 176 mg/dL 70-105 H (BEAKER) (test code = 652) CALCIUM (BEAKER) 7.3 mg/dL 8.4-10.2 L (test code = 697) AST (SGOT) (BEAKER) 83 U/L 5-34 H (test code = 353) ALT (SGPT) (BEAKER) 34 U/L 6-55 (test code = 347) EGFR (BEAKER) (test 49 mL/min/1.73 ESTIMA POP GFR IS code = 1092) sq m NOT ACCURATE CREATININE CLEARANCE IN PREDICTING GLOMERULAR FILTRATION RATE . ESTIMATED GFR I S NOT APPLICABLE FOR DIALYSIS PATIEN TS. Specialized Language Instructor ID - DBLACTIC ACID, [id number] 20:41:00 Test Item Value Reference Range Interpretation Comments LACTATE BLOOD VENOUS (2) (BEAKER) 9.4 mmol/L 0.5-2.2 H (test code = 2872) Specialized Language Instructor ID - [id number] 20:36:00 Test Item Value Reference Range Interpretation Comments PTT (test code = 46291-2) 39.2 22.5- 36.0 seconds H Lab Interpretation (test code = Abnormal 72217-4) [facility] CenterAPTT[facility] 20:36:00 Test Item Value Reference Range Interpretation Comments PARTIAL THROMBOPLASTIN TIME 39.2 seconds 22.5-36.0 H (BEAKER) (test code = 760) Prothrombin time/[id number] 20:35:00 Test Item Value Reference Range Interpretation Comments Protime (test code = 25.9 11.9- 14.2 H 5902-2) seconds INR (test code = 2.4 <=5.9 6301-6) GINA (test code = GINA) Effective 12/22/2018: PT Reference Range ChangeNew: 11.9-14.2 Previous: 11.7-14.7 RECOMMENDED COUMADIN/WARFARIN INR THERAPY RANGESSTANDARD DOSE: 2.0-3.0 Includes: PROPHYLAXIS for venous thrombosis, systemic embolization; TREATMENT for venous thrombosis and/or pulmonary embolus.HIGH RISK: Target INR is 2.5-3.5 for patients wiht mechanical heart valves. Lab Interpretation Abnormal (test code = 44889-2) [facility] CenterPROTHROMBIN TIME/[id number] 20:35:00 Test Item Value Reference Range Interpretation Comments PROTIME (BEAKER) (test code = 25.9 seconds 11.9-14.2 H 759) INR (BEAKER) (test code = 370) 2.4 <=5.9 Effective 12/22/2018: PT Reference Range ChangeNew: 11.9-14.2 Previous: 11.7- 14.7RECOMMENDED COUMADIN/WARFARIN INR THERAPY RANGESSTANDARD DOSE: 2.0-3.0 Includes: PROPHYLAXIS for venous thrombosis, systemic embolization; TREATMENT for venous thrombosis and/or pulmonary embolus.HIGH RISK: Target INR is2.5-3.5 for patients wiht mechanical heart valves.CBC W/PLT COUNT & AUTO [id number] 20:27:00 Test Item Value Reference Range Interpretation Comments WHITE BLOOD CELL COUNT (BEAKER) 13.7 K/ L 3.5-10.5 H (test code = 775) RED BLOOD CELL COUNT (BEAKER) 2.75 M/ L 4.63-6.08 L (test code = 761) HEMOGLOBIN (BEAKER) (test code = 7.8 GM/DL 13.7-17.5 L 410) HEMATOCRIT (BEAKER) (test code = 25.0 % 40.1-51.0 L 411) MEAN CORPUSCULAR VOLUME (BEAKER) 90.9 fL 79.0-92.2 (test code = 753) MEAN CORPUSCULAR HEMOGLOBIN 28.4 pg 25.7-32.2 (BEAKER) (test code = 751) MEAN CORPUSCULAR HEMOGLOBIN CONC 31.2 GM/DL 32.3-36.5 L (BEAKER) (test code = 752) RED CELL DISTRIBUTION WIDTH 21.2 % 11.6-14.4 H (BEAKER) (test code = 412) PLATELET COUNT (BEAKER) (test code 93 K/CU MM 150-450 L = 756) MEAN PLATELET VOLUME (BEAKER) 9.5 fL 9.4-12.4 (test code = 754) NUCLEATED RED BLOOD CELLS (BEAKER) 0 /100 WBC 0-0 (test code = 413) NEUTROPHILS RELATIVE PERCENT 80 % (BEAKER) (test code = 429) LYMPHOCYTES RELATIVE PERCENT 9 % (BEAKER) (test code = 430) MONOCYTES RELATIVE PERCENT 10 % (BEAKER) (test code = 431) EOSINOPHILS RELATIVE PERCENT 0 % (BEAKER) (test code = 432) BASOPHILS RELATIVE PERCENT 0 % (BEAKER) (test code = 437) NEUTROPHILS ABSOLUTE COUNT 10.95 K/ L 1.78-5.38 H (BEAKER) (test code = 670) LYMPHOCYTES ABSOLUTE COUNT 1.26 K/ L 1.32-3.57 L (BEAKER) (test code = 414) MONOCYTES ABSOLUTE COUNT (BEAKER) 1.33 K/ L 0.30-0.82 H (test code = 415) EOSINOPHILS ABSOLUTE COUNT 0.01 K/ L 0.04-0.54 L (BEAKER) (test code = 416) BASOPHILS ABSOLUTE COUNT (BEAKER) 0.02 K/ L 0.01-0.08 (test code = 417) IMMATURE GRANULOCYTES-RELATIVE 1 % 0-1 PERCENT (BEAKER) (test code = 2801) Hepatic function [id number] 13:53:00 Test Item Value Reference Range Interpretation Comments Protein, Total (test code 7.2 6.0- 8.3 gm/dL = 2885-2) Albumin (test code = 3.3 g/dL 3.5-5 L 58239-7) Total Bilirubin (test code 2.0 mg/dL 0.2-1.2 H = 1974-2) Bilirubin, Direct (test 1.1 mg/dL 0.1-0.5 H code = 1967-7) Alkaline Phosphatase (test 101 U/L 40-150 code = 6768-6) AST (test code = 1920-8) 45 U/L 5-34 H ALT (test code = 1742-6) 21 U/L 6-55 GINA (test code = GINA) Specimen slightly icteric Lab Interpretation (test Abnormal code = 55222-7) [facility] CenterBASI METABOLIC [id number] 13:53:00 Test Item Value Reference Range Interpretation Comments SODIUM (BEAKER) 138 meq/L 136-145 (test code = 381) POTASSIUM (BEAKER) 3.8 meq/L 3.5-5.1 (test code = 379) CHLORIDE (BEAKER) 107 meq/L 98-107 (test code = 382) CO2 (BEAKER) (test 22 meq/L 22-29 code = 355) BLOOD UREA NITROGEN 10 mg/dL 7-21 (BEAKER) (test code = 354) CREATININE (BEAKER) 0.77 mg/dL 0.57-1.25 (test code = 358) GLUCOSE RANDOM 128 mg/dL 70-105 H (BEAKER) (test code = 652) CALCIUM (BEAKER) 9.1 mg/dL 8.4-10.2 (test code = 697) EGFR (BEAKER) (test 98 mL/min/1.73 ESTIMA POP GFR IS code = 1092) sq m NOT ACCURATE CREATININE CLEARANCE IN PREDICTING GLOMERULAR FILTRATION RATE . ESTIMATED GFR I S NOT APPLICABLE FOR DIALYSIS PATIEN TS. Specimen slightly ictericHEPATIC FUNCTION [id number] 13:53:00 Test Item Value Reference Range Interpretation Comments TOTAL PROTEIN (BEAKER) (test code = 7.2 gm/dL 6.0-8.3 770) ALBUMIN (BEAKER) (test code = 1145) 3.3 g/dL 3.5-5.0 L BILIRUBIN TOTAL (BEAKER) (test code 2.0 mg/dL 0.2-1.2 H = 377) BILIRUBIN DIRECT (BEAKER) (test 1.1 mg/dL 0.1-0.5 H code = 706) ALKALINE PHOSPHATASE (BEAKER) (test 101 U/L 40-150 code = 346) AST (SGOT) (BEAKER) (test code = 45 U/L 5-34 H 353) ALT (SGPT) (BEAKER) (test code = 21 U/L 6-55 347) Specimen slightly ictericPROTHROMBIN [id number] 13:35:00 Test Item Value Reference Range Interpretation Comments PROTIME (BEAKER) (test code = 16.9 seconds 11.9-14.2 H 759) INR (BEAKER) (test code = 370) 1.5 <=5.9 Effective 12/22/2018: PT Reference Range ChangeNew: 11.9-14.2 Previous: 11.7- 14.7RECOMMENDED COUMADIN/WARFARIN INR THERAPY RANGESSTANDARD DOSE: 2.0-3.0 Includes: PROPHYLAXIS for venous thrombosis, systemic embolization; TREATMENT for venous thrombosis and/or pulmonary embolus.HIGH RISK: Target INR is2.5-3.5 for patients wiht mechanical heart valves.CBC W/PLT COUNT & AUTO [id number] 13:29:00 Test Item Value Reference Range Interpretation Comments WHITE BLOOD CELL COUNT (BEAKER) 4.4 K/ L 3.5-10.5 (test code = 775) RED BLOOD CELL COUNT (BEAKER) 3.67 M/ L 4.63-6.08 L (test code = 761) HEMOGLOBIN (BEAKER) (test code = 9.8 GM/DL 13.7-17.5 L 410) HEMATOCRIT (BEAKER) (test code = 33.4 % 40.1-51.0 L 411) MEAN CORPUSCULAR VOLUME (BEAKER) 91.0 fL 79.0-92.2 (test code = 753) MEAN CORPUSCULAR HEMOGLOBIN 26.7 pg 25.7-32.2 (BEAKER) (test code = 751) MEAN CORPUSCULAR HEMOGLOBIN CONC 29.3 GM/DL 32.3-36.5 L (BEAKER) (test code = 752) RED CELL DISTRIBUTION WIDTH 25.9 % 11.6-14.4 H (BEAKER) (test code = 412) PLATELET COUNT (BEAKER) (test code 64 K/CU MM 150-450 L = 756) MEAN PLATELET VOLUME (BEAKER) 9.8 fL 9.4-12.4 (test code = 754) NUCLEATED RED BLOOD CELLS (BEAKER) 0 /100 WBC 0-0 (test code = 413) NEUTROPHILS RELATIVE PERCENT 42 % (BEAKER) (test code = 429) LYMPHOCYTES RELATIVE PERCENT 38 % (BEAKER) (test code = 430) MONOCYTES RELATIVE PERCENT 14 % (BEAKER) (test code = 431) EOSINOPHILS RELATIVE PERCENT 5 % (BEAKER) (test code = 432) BASOPHILS RELATIVE PERCENT 1 % (BEAKER) (test code = 437) NEUTROPHILS ABSOLUTE COUNT 1.87 K/ L 1.78-5.38 (BEAKER) (test code = 670) LYMPHOCYTES ABSOLUTE COUNT 1.68 K/ L 1.32-3.57 (BEAKER) (test code = 414) MONOCYTES ABSOLUTE COUNT (BEAKER) 0.61 K/ L 0.30-0.82 (test code = 415) EOSINOPHILS ABSOLUTE COUNT 0.21 K/ L 0.04-0.54 (BEAKER) (test code = 416) BASOPHILS ABSOLUTE COUNT (BEAKER) 0.02 K/ L 0.01-0.08 (test code = 417) IMMATURE GRANULOCYTES-RELATIVE 0 % 0-1 PERCENT (BEAKER) (test code = 2801) BLOOD [id number] 02:00:00 Test Item Value Reference Range Interpretation Comments CULTURE (BEAKER) (test No growth in 5 days code = 1095) BLOOD [id number] 02:00:00 Test Item Value Reference Range Interpretation Comments CULTURE (BEAKER) (test No growth in 5 days code = 1095) 2D Echo W/Doppler(CW/PW/Color)2019-02-13 17:43:42Ejection FractionSLEH ECHO HEARTLAB MKCKESSON CPACSInterface, External Ris In - 02/13/2019 5:43 PM C DTTransthoracic Echocardiography Report (TTE) Demographics Patient Name JUSTUS TOMPKINS Date ofStudy 02/12/2019 ABBY III Gender Male Visit Number [id number] Race Unknown RoomNumber 943 Number Date of 1940 Referring Physician SMILEY Greene Age 78 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 Signature Electronicallysigned by Surinder Perez MD(Interpreting physician) on 02/13/2019 05:43 PM Findings Rhythm/BP Regular sinus rhythmduring the exam. Left Ventricle The left ventricle is chamber size (by vol index) is moderately enlarged (male - LVED vol 90-100ml.m2) . Mild septal hypertrophy is present. The following segment(s) appear akinetic: apex, apical anterior, apical lateral, mid-distal anteroseptum .The other segments contract normally. Global LV systolic [...] systolic function are within normal limits. Right AtriumRA cavity size appears mildly enlarged . Aortic Valve [id number]-dh-[id number] AoV cusp calcification. AoV cusp mobility is decreased . Mild aortic stenosis. AoV area at rest by continuity equation is in therange of 1.61 cm2. AoV area by planimtery [...] TR Velocity: 2.78 m/s TR Gradient: 30.95 mmHgRobert F. Kennedy Medical CenterMR, ABDOMEN, [id number] 14:11:00MRI abdomen liver protocol Patient pending dischargeFINAL [...] cirrhosis. No biliary ductal dilatation or filling defect.SPLEEN: 15.1 cm splenomegaly.PANCREAS: No focal masses or ductal dilatation. ADRENALS: [...] and small left pleural effusions. Signed: Monet Meyer MDReport Verified Date/Time: 02/13/2019 14:11:00 Reading Location: [facility] C0[facility] CT Body Reading Room POCT-GLUCOSE METER 2019-02-13 10:52:00 Test Item Value Reference Range Interpretation Comments POC-GLUCOSE METER 160 mg/dL 70-110 H TESTED AT [facility] 67 ([facility]) (test code = CHANG WILD MD 1538) [id number] POCT-GLUCOSE [id number] 07:35:00 Test Item Value Reference Range Interpretation Comments POC-GLUCOSE METER 120 mg/dL 70-110 H TESTED AT [facility] 6720 (BEAKER) (test code = CHANG WILD MD 1538) [address] BASIC METABOLIC [id number] 06:42:00 Test Item Value Reference Range Interpretation Comments SODIUM (BEAKER) 139 meq/L 136-145 (test code = 381) POTASSIUM (BEAKER) 4.0 meq/L 3.5-5.1 Specimen slightly (test code = 379) hemolyzed CHLORIDE (BEAKER) 115 meq/L 98-107 H (test code = 382) CO2 (BEAKER) (test 19 meq/L 22-29 L code = 355) BLOOD UREA NITROGEN 6 mg/dL 7-21 L (BEAKER) (test code = 354) CREATININE (BEAKER) 0.65 mg/dL 0.57-1.25 Specimen slightly (test code = 358) hemolyzed GLUCOSE RANDOM 91 mg/dL 70-105 (BEAKER) (test code = 652) CALCIUM (BEAKER) 7.7 mg/dL 8.4-10.2 L (test code = 697) EGFR (BEAKER) (test 119 mL/min/1.73 ESTIM ATED GFR IS code = 1092) sq m NOT ACCURATE CREATININE CLEARANCE IN PREDICTING GLOMERULAR FILTRATION RATE . ESTIMATED GFR I S NOT APPLICABLE FOR DIALYSIS PATIEN TS. HEPATIC FUNCTION [id number] 06:41:00 Test Item Value Reference Range Interpretation Comments TOTAL PROTEIN (BEAKER) 5.5 gm/dL 6.0-8.3 L Speci men slightly (test code = 770) hemolyzed ALBUMIN (BEAKER) (test 2.7 g/dL 3.5-5.0 L Speci men slightly code = 1145) hemolyzed BILIRUBIN TOTAL 1.4 mg/dL 0.2-1.2 H Specimen sli ghtly (BEAKER) (test code = hemoly zed 377) BILIRUBIN DIRECT 0.6 mg/dL 0.1-0.5 H Specimen sl ightly (BEAKER) (test code = hemoly zed 706) ALKALINE PHOSPHATASE 56 U/L 40-150 (BEAKER) (test code = 346) AST (SGOT) (BEAKER) 49 U/L 5-34 H Specimen slightly (test code = 353) hemolyzed ALT (SGPT) (BEAKER) 18 U/L 6-55 Specimen slightly (test code = 347) hemolyzed [id number] 05:52:00 Test Item Value Reference Range Interpretation Comments PROTIME (BEAKER) (test code = 20.7 seconds 11.9-14.2 H 759) INR (BEAKER) (test code = 370) 1.9 <=5.9 PARTIAL THROMBOPLASTIN TIME 46.6 seconds 22.5-36.0 H (BEAKER) (test code = 760) Effective 12/22/2018: PT Reference Range ChangeNew: 11.9-14.2 Previous: 11.7- 14.7RECOMMENDED COUMADIN/WARFARIN INR THERAPY RANGESSTANDARD DOSE: 2.0-3.0 Includes: PROPHYLAXIS for venous thrombosis, systemic embolization; TREATMENT for venous thrombosis and/or pulmonary embolus.HIGH RISK: Target INR is2.5-3.5 for patients wiht mechanical heart valves.PROTHROMBIN [id number] 05:51:00 Test Item Value Reference Range Interpretation Comments PROTIME (BEAKER) (test code = 20.7 seconds 11.9-14.2 H 759) INR (BEAKER) (test code = 370) 1.9 <=5.9 Effective 12/22/2018: PT Reference Range ChangeNew: 11.9-14.2 Previous: 11.7- 14.7RECOMMENDED COUMADIN/WARFARIN INR THERAPY RANGESSTANDARD DOSE: 2.0-3.0 Includes: PROPHYLAXIS for venous thrombosis, systemic embolization; TREATMENT for venous thrombosis and/or pulmonary embolus.HIGH RISK: Target INR is2.5-3.5 for patients wiht mechanical heart valves.CBC (HEMOGRAM ONLY)2019-02-13 05:26:00 Test Item Value Reference Range Interpretation Comments WHITE BLOOD CELL COUNT (BEAKER) 2.9 K/ L 3.5-10.5 L (test code = 775) RED BLOOD CELL COUNT (BEAKER) 2.76 M/ L 4.63-6.08 L (test code = 761) HEMOGLOBIN (BEAKER) (test code = 7.3 GM/DL 13.7-17.5 L 410) HEMATOCRIT ([facility]) (test code = 23.5 % 40.1-51.0 L 411) MEAN CORPUSCULAR VOLUME (AKER) 85.1 fL 79.0-92.2 (test code = 753) MEAN CORPUSCULAR HEMOGLOBIN 26.4 pg 25.7-32.2 (AKER) (test code = 751) MEAN CORPUSCULAR HEMOGLOBIN CONC 31.1 GM/DL 32.3-36.5 L (AKER) (test code = 752) RED CELL DISTRIBUTION WIDTH 19.4 % 11.6-14.4 H (AKER) (test code = 412) PLATELET COUNT ([facility]) (test code 73 K/CU MM 150-450 L = 756) MEAN PLATELET VOLUME (AKER) 10.3 fL 9.4-12.4 (test code = 754) NUCLEATED RED BLOOD CELLS ([facility]) 0 /100 WBC 0-0 (test code = 413) POCT-GLUCOSE [id number] 21:21:00 Test Item Value Reference Range Interpretation Comments POC-GLUCOSE METER 185 mg/dL 70-110 H TESTED AT [place] [address] ([facility]) (test code = CHANG Arredondo [facility] 1538) [address] POCT-GLUCOSE [id number] 15:55:00 Test Item Value Reference Range Interpretation Comments POC-GLUCOSE METER 154 mg/dL 70-110 H TESTED AT [place] [address] ([facility]) (test code = CHANG Arredondo [facility] 1538) [id number] POCT-GLUCOSE [id number] 15:55:00 Test Item Value Reference Range Interpretation Comments POC-GLUCOSE METER 144 mg/dL 70-110 H TESTED AT [place] [address] ([facility]) (test code = CHANG Arredondo [place] 1538) [address] POCT-GLUCOSE [id number] 10:19:00 Test Item Value Reference Range Interpretation Comments POC-GLUCOSE METER 130 mg/dL 70-110 H TESTED AT [place] [address] ([facility]) (test code = CHANG Arredondo [place] 1538) [address] ALPHA FETOPROTEIN (AFP), TUMOR [id number] 08:37:00 Test Item Value Reference Range Interpretation Comments ALPHA-FETOPROTEIN ([facility]) (test 362.4 ng/mL <10.0 H code = 1094) [id number] 07:20:00 Test Item Value Reference Range Interpretation Comments FERRITIN (BEAKER) (test code = 361) 33 ng/mL 5-275 IRON, TIBC, % SAT. (WITHOUT FERRITIN)2019-02-12 06:59:00 Test Item Value Reference Range Interpretation Comments IRON (BEAKER) (test code = 547) 43.0 ug/dL 40.0-160.0 TOTAL IRON BINDING CAPACITY 338 ug/dL 250-450 (BEAKER) (test code = 769) IRON % SATURATION (2) (BEAKER) 13 % 20-55 L (test code = 2590) BASIC METABOLIC [id number] 06:22:00 Test Item Value Reference Range Interpretation Comments SODIUM (BEAKER) 137 meq/L 136-145 (test code = 381) POTASSIUM (BEAKER) 4.0 meq/L 3.5-5.1 (test code = 379) CHLORIDE (BEAKER) 113 meq/L 98-107 H (test code = 382) CO2 (BEAKER) (test 20 meq/L 22-29 L code = 355) BLOOD UREA NITROGEN 7 mg/dL 7-21 (BEAKER) (test code = 354) CREATININE (BEAKER) 0.70 mg/dL 0.57-1.25 (test code = 358) GLUCOSE RANDOM 103 mg/dL 70-105 (BEAKER) (test code = 652) CALCIUM (BEAKER) 7.7 mg/dL 8.4-10.2 L (test code = 697) EGFR (BEAKER) (test 109 mL/min/1.73 ESTIM ATED GFR IS code = 1092) sq m NOT ACCURATE CREATININE CLEARANCE IN PREDICTING GLOMERULAR FILTRATION RATE . ESTIMATED GFR I S NOT APPLICABLE FOR DIALYSIS PATIEN TS. [id number] 06:15:00 Test Item Value Reference Range Interpretation Comments PHOSPHORUS (BEAKER) (test code = 2.6 mg/dL 2.3-4.7 604) [id number] 06:15:00 Test Item Value Reference Range Interpretation Comments MAGNESIUM (BEAKER) (test code = 1.9 mg/dL 1.6-2.6 627) HEPATIC FUNCTION [id number] 06:15:00 Test Item Value Reference Range Interpretation Comments TOTAL PROTEIN (BEAKER) (test code = 5.7 gm/dL 6.0-8.3 L 770) ALBUMIN (BEAKER) (test code = 1145) 2.8 g/dL 3.5-5.0 L BILIRUBIN TOTAL (BEAKER) (test code 1.8 mg/dL 0.2-1.2 H = 377) BILIRUBIN DIRECT (BEAKER) (test 0.9 mg/dL 0.1-0.5 H code = 706) ALKALINE PHOSPHATASE (BEAKER) (test 54 U/L 40-150 code = 346) AST (SGOT) (BEAKER) (test code = 41 U/L 5-34 H 353) ALT (SGPT) (BEAKER) (test code = 16 U/L 6-55 347) PROTHROMBIN [id number] 05:51:00 Test Item Value Reference Range Interpretation Comments PROTIME (BEAKER) (test code = 19.8 seconds 11.9-14.2 H 759) INR (BEAKER) (test code = 370) 1.8 <=5.9 Effective 12/22/2018: PT Reference Range ChangeNew: 11.9-14.2 Previous: 11.7- 14.7RECOMMENDED COUMADIN/WARFARIN INR THERAPY RANGESSTANDARD DOSE: 2.0-3.0 Includes: PROPHYLAXIS for venous thrombosis, systemic embolization; TREATMENT for venous thrombosis and/or pulmonary embolus.HIGH RISK: Target INR is2.5-3.5 for patients wiht mechanical heart valves.PT/[id number] 05:51:00 Test Item Value Reference Range Interpretation Comments PROTIME (BEAKER) (test code = 19.8 seconds 11.9-14.2 H 759) INR (BEAKER) (test code = 370) 1.8 <=5.9 PARTIAL THROMBOPLASTIN TIME 43.4 seconds 22.5-36.0 H (BEAKER) (test code = 760) Effective 12/22/2018: PT Reference Range ChangeNew: 11.9-14.2 Previous: 11.7- 14.7RECOMMENDED COUMADIN/WARFARIN INR THERAPY RANGESSTANDARD DOSE: 2.0-3.0 Includes: PROPHYLAXIS for venous thrombosis, systemic embolization; TREATMENT for venous thrombosis and/or pulmonary embolus.HIGH RISK: Target INR is2.5-3.5 for patients wiht mechanical heart valves.CBC (HEMOGRAM ONLY)2019-02-12 05:30:00 Test Item Value Reference Range Interpretation Comments WHITE BLOOD CELL COUNT (BEAKER) 3.3 K/ L 3.5-10.5 L (test code = 775) RED BLOOD CELL COUNT (BEAKER) 2.79 M/ L 4.63-6.08 L (test code = 761) HEMOGLOBIN (BEAKER) (test code = 7.2 GM/DL 13.7-17.5 L 410) HEMATOCRIT (BEAKER) (test code = 23.5 % 40.1-51.0 L 411) MEAN CORPUSCULAR VOLUME (BEAKER) 84.2 fL 79.0-92.2 (test code = 753) MEAN CORPUSCULAR HEMOGLOBIN 25.8 pg 25.7-32.2 (BEAKER) (test code = 751) MEAN CORPUSCULAR HEMOGLOBIN CONC 30.6 GM/DL 32.3-36.5 L (BEAKER) (test code = 752) RED CELL DISTRIBUTION WIDTH 18.9 % 11.6-14.4 H (BEAKER) (test code = 412) PLATELET COUNT (BEAKER) (test code 69 K/CU MM 150-450 L = 756) MEAN PLATELET VOLUME (BEAKER) 10.4 fL 9.4-12.4 (test code = 754) NUCLEATED RED BLOOD CELLS (BEAKER) 1 /100 WBC 0-0 H (test code = 413) Hepatitis A antibody, [id number] 19:24:00 Test Item Value Reference Range Interpretation Comments Hep A IgG (test code = 10204-1) Nonreactive Nonreactive Lab Interpretation (test code = Normal 86473-2) [facility] [id number] 19:24:00 Test Item Value Reference Range Interpretation Comments HEPATITIS A IGG ANTIBODY (BEAKER) Nonreactive Nonreactive (test code = 2797) ALPHA FETOPROTEIN (AFP), TUMOR [id number] 17:58:00 Test Item Value Reference Range Interpretation Comments ALPHA-FETOPROTEIN (BEAKER) (test 356.8 ng/mL <10.0 H code = 1094) HEMOGLOBIN AND [id number] 14:32:00 Test Item Value Reference Range Interpretation Comments HEMOGLOBIN (BEAKER) (test code = 7.6 GM/DL 13.7-17.5 L 410) HEMATOCRIT (JULIENNE) (test code = 25.6 % 40.1-51.0 L 411) U/S, ABDOMINAL, WITH [id number] 13:40:00Reason for exam:->abdominal pain, cirrhosis ? liver massFINAL REPORT Ultrasound of the Abdomen, 02/11/2019. Clinical History: Abdominal pain. Cirrhosis. Comparison: MRI, 09/25/2017. Discussion:Sonographic evaluation of the abdomen [...] for thrombus at this time. Signed: Tere Devries MDReport VerifiedDate/Time: 02/11/2019 13:40:35 Reading Location: [address] Radiology Reading Room US abdominal with [id number] 13:40:00Interface, External Ris In - 02/11/2019 1:42 PM CDTFINAL REPORT Ultrasound of the Abdomen, 02/11/2019. Clinical History: Abdominal pain. Cirrhosis. Comparison: MRI, 09/25/2017. Discussion:Sonographic evaluation of the abdomen [...] for thrombus at this time. Signed: Tere Devries MDReport Verified Date/Time: 02/11/2019 13:40:35 Reading Location: [address] Radiology [id number] 08:56:00 Test Item Value Reference Range Interpretation Comments TROPONIN I (BEAKER) (test code = 0.10 ng/mL 0.00-0.03 H 397) Troponin I (TnI) levels must be interpreted [...] failure, acidosis, acute neurological disease, and persistent tachyarrhythmia.[id number] 01:49:00 Test Item Value Reference Range Interpretation Comments AMMONIA (BEAKER) (test code = 348) 63 mol/L 18-72 CBC W/PLT COUNT & AUTO [id number] 01:33:00 Test Item Value Reference Range Interpretation Comments WHITE BLOOD CELL COUNT (BEAKER) 3.8 K/ L 3.5-10.5 (test code = 775) RED BLOOD CELL COUNT (BEAKER) 2.19 M/ L 4.63-6.08 L (test code = 761) HEMOGLOBIN (BEAKER) (test code = 5.1 GM/DL 13.7-17.5 LL 410) HEMATOCRIT (BEAKER) (test code = 17.8 % 40.1-51.0 L 411) MEAN CORPUSCULAR VOLUME (BEAKER) 81.3 fL 79.0-92.2 (test code = 753) MEAN CORPUSCULAR HEMOGLOBIN 23.3 pg 25.7-32.2 L (BEAKER) (test code = 751) MEAN CORPUSCULAR HEMOGLOBIN CONC 28.7 GM/DL 32.3-36.5 L (BEAKER) (test code = 752) RED CELL DISTRIBUTION WIDTH 20.2 % 11.6-14.4 H (BEAKER) (test code = 412) PLATELET COUNT (BEAKER) (test code 71 K/CU MM 150-450 L = 756) MEAN PLATELET VOLUME (BEAKER) 10.2 fL 9.4-12.4 (test code = 754) NUCLEATED RED BLOOD CELLS (BEAKER) 0 /100 WBC 0-0 (test code = 413) NEUTROPHILS RELATIVE PERCENT 42 % (BEAKER) (test code = 429) LYMPHOCYTES RELATIVE PERCENT 33 % (BEAKER) (test code = 430) MONOCYTES RELATIVE PERCENT 21 % (BEAKER) (test code = 431) EOSINOPHILS RELATIVE PERCENT 4 % (BEAKER) (test code = 432) BASOPHILS RELATIVE PERCENT 0 % (BEAKER) (test code = 437) NEUTROPHILS ABSOLUTE COUNT 1.58 K/ L 1.78-5.38 L (BEAKER) (test code = 670) LYMPHOCYTES ABSOLUTE COUNT 1.22 K/ L 1.32-3.57 L (BEAKER) (test code = 414) MONOCYTES ABSOLUTE COUNT (BEAKER) 0.79 K/ L 0.30-0.82 (test code = 415) EOSINOPHILS ABSOLUTE COUNT 0.15 K/ L 0.04-0.54 (BEAKER) (test code = 416) BASOPHILS ABSOLUTE COUNT (BEAKER) 0.00 K/ L 0.01-0.08 L (test code = 417) IMMATURE GRANULOCYTES-RELATIVE 0 % 0-1 PERCENT (BEAKER) (test code = 2801) TROPONIN [id number] 01:23:00 Test Item Value Reference Range Interpretation Comments TROPONIN I (BEAKER) (test code = 397) < ng/mL 0.00-0.03 Troponin I (TnI) levels [...] failure, acidosis, acute neurological disease, and persistent tachyarrhythmia.[id number] 01:17:00 Test Item Value Reference Range Interpretation Comments PHOSPHORUS (BEAKER) (test code = 2.7 mg/dL 2.3-4.7 604) [id number] 01:17:00 Test Item Value Reference Range Interpretation Comments MAGNESIUM (BEAKER) (test code = 1.9 mg/dL 1.6-2.6 627) BASIC METABOLIC [id number] 01:17:00 Test Item Value Reference Range Interpretation Comments SODIUM (BEAKER) 137 meq/L 136-145 (test code = 381) POTASSIUM (BEAKER) 3.4 meq/L 3.5-5.1 L (test code = 379) CHLORIDE (BEAKER) 109 meq/L 98-107 H (test code = 382) CO2 (BEAKER) (test 21 meq/L 22-29 L code = 355) BLOOD UREA NITROGEN 9 mg/dL 7-21 (BEAKER) (test code = 354) CREATININE (BEAKER) 0.65 mg/dL 0.57-1.25 (test code = 358) GLUCOSE RANDOM 104 mg/dL 70-105 (BEAKER) (test code = 652) CALCIUM (BEAKER) 8.1 mg/dL 8.4-10.2 L (test code = 697) EGFR (BEAKER) (test 119 mL/min/1.73 ESTIM ATED GFR IS code = 1092) sq m NOT ACCURATE CREATININE CLEARANCE IN PREDICTING GLOMERULAR FILTRATION RATE . ESTIMATED GFR I S NOT APPLICABLE FOR DIALYSIS PATIEN TS. Specimen slightly ictericHEPATIC FUNCTION [id number] 01:17:00 Test Item Value Reference Range Interpretation Comments TOTAL PROTEIN (BEAKER) (test code = 5.7 gm/dL 6.0-8.3 L 770) ALBUMIN (BEAKER) (test code = 1145) 2.8 g/dL 3.5-5.0 L BILIRUBIN TOTAL (BEAKER) (test code 2.3 mg/dL 0.2-1.2 H = 377) BILIRUBIN DIRECT (BEAKER) (test 0.8 mg/dL 0.1-0.5 H code = 706) ALKALINE PHOSPHATASE (BEAKER) (test 59 U/L 40-150 code = 346) AST (SGOT) (BEAKER) (test code = 29 U/L 5-34 353) ALT (SGPT) (BEAKER) (test code = 11 U/L 6-55 347) Specimen slightly ictericPT/[id number] 01:08:00 Test Item Value Reference Range Interpretation Comments PROTIME (BEAKER) (test code = 19.5 seconds 11.9-14.2 H 759) INR (BEAKER) (test code = 370) 1.8 <=5.9 PARTIAL THROMBOPLASTIN TIME 42.1 seconds 22.5-36.0 H (BEAKER) (test code = 760) Effective 12/22/2018: PT Reference Range ChangeNew: 11.9-14.2 Previous: 11.7- 14.7RECOMMENDED COUMADIN/WARFARIN INR THERAPY RANGESSTANDARD DOSE: 2.0-3.0 Includes: PROPHYLAXIS for venous thrombosis, systemic embolization; TREATMENT for venous thrombosis and/or pulmonary embolus.HIGH RISK: Target INR is2.5-3.5 for patients wiht mechanical heart valves.PROTHROMBIN TIME/[id number] 01:07:00 Test Item Value Reference Range Interpretation Comments PROTIME (BEAKER) (test code = 19.5 seconds 11.9-14.2 H 759) INR (BEAKER) (test code = 370) 1.8 <=5.9 Effective 12/22/2018: PT Reference Range ChangeNew: 11.9-14.2 Previous: 11.7- 14.7RECOMMENDED COUMADIN/WARFARIN INR THERAPY RANGESSTANDARD DOSE: 2.0-3.0 Includes: PROPHYLAXIS for venous thrombosis, systemic embolization; TREATMENT for venous thrombosis and/or pulmonary embolus.HIGH RISK: Target INR is2.5-3.5 for patients wiht mechanical heart valves.URINALYSIS W/ REFLEX URINE CULTURE 2019-02-11 00:55:00 Test Item Value Reference Range Interpretation Comments COLOR (BEAKER) (test code = 470) Yellow CLARITY (BEAKER) (test code = 469) Clear SPECIFIC GRAVITY UA (BEAKER) (test 1.013 1.001-1.035 code = 468) PH UA (BEAKER) (test code = 467) 6.0 5.0-8.0 PROTEIN UA (BEAKER) (test code = Negative Negative 464) GLUCOSE UA (BEAKER) (test code = Negative Negative 365) KETONES UA (BEAKER) (test code = 10 mg/dL Negative A 371) BILIRUBIN UA (BEAKER) (test code = Negative Negative 462) BLOOD UA (BEAKER) (test code = 461) Negative Negative NITRITE UA (BEAKER) (test code = Negative Negative 465) LEUKOCYTE ESTERASE UA (BEAKER) Negative Negative (test code = 466) UROBILINOGEN UA (BEAKER) (test code 0.2 mg/dL 0.2-1.0 = 463) RBC UA (BEAKER) (test code = 519) 0 /HPF WBC UA (BEAKER) (test code = 520) 1 /HPF MUCUS (BEAKER) (test code = 1574) Rare SOURCE(BEAKER) (test code = 2795) CBC W/PLT COUNT & AUTO [id number] 23:53:00 Test Item Value Reference Range Interpretation Comments WHITE BLOOD CELL COUNT (BEAKER) 4.0 K/ L 3.5-10.5 (test code = 775) RED BLOOD CELL COUNT (BEAKER) 2.47 M/ L 4.63-6.08 L (test code = 761) HEMOGLOBIN (BEAKER) (test code = 5.9 GM/DL 13.7-17.5 LL 410) HEMATOCRIT (BEAKER) (test code = 20.2 % 40.1-51.0 L 411) MEAN CORPUSCULAR VOLUME (BEAKER) 81.8 fL 79.0-92.2 (test code = 753) MEAN CORPUSCULAR HEMOGLOBIN 23.9 pg 25.7-32.2 L (BEAKER) (test code = 751) MEAN CORPUSCULAR HEMOGLOBIN CONC 29.2 GM/DL 32.3-36.5 L (BEAKER) (test code = 752) RED CELL DISTRIBUTION WIDTH 20.3 % 11.6-14.4 H (BEAKER) (test code = 412) PLATELET COUNT (BEAKER) (test code 93 K/CU MM 150-450 L = 756) MEAN PLATELET VOLUME (BEAKER) 10.5 fL 9.4-12.4 (test code = 754) NUCLEATED RED BLOOD CELLS (BEAKER) 0 /100 WBC 0-0 (test code = 413) (CELLAVISION MANUAL DIFF)2019-02-10 23:53:00 Test Item Value Reference Range Interpretation Comments NEUTROPHILS - REL 57 % (CELLAVISION)(BEAKER) (test code = 2816) LYMPHOCYTES - REL 24 % (CELLAVISION)(BEAKER) (test code = 2817) MONOCYTES - REL 10 % (CELLAVISION)(BEAKER) (test code = 2818) EOSINOPHILS - REL 7 % (CELLAVISION)(BEAKER) (test code = 2819) BANDS - REL (CELLAVISION)(BEAKER) 2 % 0-10 (test code = 2826) NEUTROPHILS - ABS 2.28 K/ul 1.78-5.38 (CELLAVISION)(BEAKER) (test code = 2830) LYMPHOCYTES - ABS 0.96 K/ul 1.32-3.57 L (CELLAVISION)(BEAKER) (test code = 2831) MONOCYTES - ABS 0.40 K/uL 0.30-0.82 (CELLAVISION)(BEAKER) (test code = 2832) EOSINOPHILS - ABS 0.28 K/uL 0.04-0.54 (CELLAVISION)(BEAKER) (test code = 2834) BANDS - ABS (CELLAVISION)(BEAKER) 0.08 K/uL 0.00-0.80 (test code = 2840) TOTAL COUNTED (BEAKER) (test code 100 = 1351) GIANT PLATELETS (BEAKER) (test Present code = 313) VACUOLATED NEUTROPHILS (BEAKER) Present (test code = 483) POLYCHROMATOPHILLIC RBCS(BEAKER) 1+ few (test code = 478) HYPOCHROMIA (BEAKER) (test code = 2+ moderate 963) ANISOCYTOSIS (BEAKER) (test code 3+ many = 961) MICROCYTES (BEAKER) (test code = 1+ few 965) MACROCYTES (BEAKER) (test code = 1+ few 964) POIKILOCYTES (BEAKER) (test code 1+ few = 966) SPHEROCYTES (BEAKER) (test code = 1+ few 768) ELLIPTOCYTES (BEAKER) (test code 1+ few = 962) TEAR DROP CELLS (BEAKER) (test 1+ few code = 481) ARTIFACT (CELLAVISION)(BEAKER) Present (test code = 3432) HELMET CELLS 1+ few (CELLAVISION)(BEAKER) (test code = 3434) PLATELET CONCENTRATION Decreased (CELLAVISION)(BEAKER) (test code = 3438) Received comment: User comments: Slide comments:TROPONIN [id number] 23:14:00 Test Item Value Reference Range Interpretation Comments TROPONIN I (BEAKER) (test code = 397) < ng/mL 0.00-0.03 Troponin I (TnI) levels [...] acute neurological disease, and persistent tachyarrhythmia.COMPREHENSIVE METABOLIC [id number] 23:08:00 Test Item Value Reference Range Interpretation Comments TOTAL PROTEIN 6.2 gm/dL 6.0-8.3 (BEAKER) (test code = 770) ALBUMIN (BEAKER) 3.1 g/dL 3.5-5.0 L (test code = 1145) ALKALINE PHOSPHATASE 65 U/L 40-150 (BEAKER) (test code = 346) BILIRUBIN TOTAL 2.9 mg/dL 0.2-1.2 H (BEAKER) (test code = 377) SODIUM (BEAKER) (test 136 meq/L 136-145 code = 381) POTASSIUM (BEAKER) 3.4 meq/L 3.5-5.1 L (test code = 379) CHLORIDE (BEAKER) 108 meq/L 98-107 H (test code = 382) CO2 (BEAKER) (test 19 meq/L 22-29 L code = 355) BLOOD UREA NITROGEN 9 mg/dL 7-21 (BEAKER) (test code = 354) CREATININE (BEAKER) 0.69 mg/dL 0.57-1.25 (test code = 358) GLUCOSE RANDOM 139 mg/dL 70-105 H (BEAKER) (test code = 652) CALCIUM (BEAKER) 8.3 mg/dL 8.4-10.2 L (test code = 697) AST (SGOT) (BEAKER) 32 U/L 5-34 (test code = 353) ALT (SGPT) (BEAKER) 14 U/L 6-55 (test code = 347) EGFR (BEAKER) (test 111 ESTIMATE D GFR IS code = 1092) mL/min/1.73 sq NOT ACCURA TE m CREATININE CLEARANCE IN PREDICTING GLOMERULAR FILTRATION RATE . ESTIMATED GFR I S NOT APPLICABLE FOR DIALYSIS PATIEN TS. Specimen slightly ictericRAD, CHEST, 2 [id number] 22:59:00Reason for exam:- >pleural effusion on CT [...] bilateral lower lobe atelectasis. 2. Possible small bila teral pleural effusions. Signed: Estrella Villasenor Verified Date/Time: 02/10/2019 22:59:29 Reading Location: [facility] Diagnostic Imaging Reading Room - [place] [address] XR chest 2 [id number] 22:59:00Interface, External Ris In - 02/10/2019 11:01 PM CDTFINAL REPORT History: Pleural effusions. FINDINGS: Compared with 11/20 2017, the heart and mediastinum are stable. Lung volumeshave decreased slightly. There is increased opacity in the lung bases, possibly atelectasis or earlypneumonia. Blunting of the costophrenic sulci may represent small pleural effusions. Lungs are otherwise clear. No pneumothorax. Bones are unremarkable. IMPRESSION: 1. Low lung volumes and probable bilateral lower lobe atelectasis. 2. Possible small bilateral pleural effusions. Signed: Estrella Villasenor Verified Date/Time: 02/10/2019 22:59:29 Reading Location: [facility] Diagnostic Imaging Reading Room - [place] [address] [facility] Test Item Value Reference Range Interpretation Comments PARTIAL THROMBOPLASTIN TIME 36.6 seconds 22.5-36.0 H (BEAKER) (test code = 760) PROTHROMBIN TIME/[id number] 22:56:00 Test Item Value Reference Range Interpretation Comments PROTIME (BEAKER) (test code = 18.9 seconds 11.9-14.2 H 759) INR (BEAKER) (test code = 370) 1.7 <=5.9 Effective 12/22/2018: PT Reference Range ChangeNew: 11.9-14.2 Previous: 11.7- 14.7RECOMMENDED COUMADIN/WARFARIN INR THERAPY RANGESSTANDARD DOSE: 2.0-3.0 Includes: PROPHYLAXIS for venous thrombosis, systemic embolization; TREATMENT for venous thrombosis and/or pulmonary embolus.HIGH RISK: Target INR is2.5-3.5 for patients wiht mechanical heart valves.POCT-GLUCOSE [id number] 21:34:00 Test Item Value Reference Range Interpretation Comments POC-GLUCOSE METER 170 mg/dL 70-110 H TESTED AT [facility] 6720 (JULIENNE) (test code = CHANG BOLES 1538) [id number] MR, ABDOMEN, [id number] 20:13:00Liver protocol based on 09/23 CT of chest shows liver massAddendum BeginsREPORT STATUS:A ADRENALS section should include: Thickening ofboth adrenal glands without discrete nodules. Signed: Geovany Srinivasan MDReport Verified Date/Time: 09/25/2017 20:13:03 Reading Location: [facility] C013Y CT Body Reading RoomAddendum EndsFINAL REPORT [...] defect.SPLEEN: Enlarged, measuring 14.2cm in the craniocaudal dimension.PANCREAS: No focal masses [...] MDReport Verified Date/Time: 09/25/2017 13:46:41 Reading Location: [facility] B1 C013Y CT Body Reading Room Electronically signedby: GEOVANY SRINIVASAN MD on 09/25/2017 08:13 PM BASIC METABOLIC [id number] 14:10:00 Test Item Value Reference Range Interpretation Comments SODIUM (BEAKER) 135 meq/L 135-148 (test code = 381) POTASSIUM (BEAKER) 3.5 meq/L 3.5-5.5 (test code = 379) CHLORIDE (BEAKER) 99 meq/L 98-106 (test code = 382) CO2 (BEAKER) (test 28 meq/L 20-31 code = 355) BLOOD UREA NITROGEN 8 mg/dL 10-26 L (BEAKER) (test code = 354) CREATININE (BEAKER) 0.64 mg/dL 0.50-1.20 (test code = 358) GLUCOSE RANDOM 180 mg/dL 70-110 H (BEAKER) (test code = 652) CALCIUM (BEAKER) 8.3 mg/dL 8.5-10.5 L (test code = 697) EGFR (BEAKER) (test 122 mL/min/1.73 ESTIM ATED GFR IS code = 1092) sq m NOT ACCURATE CREATININE CLEARANCE IN PREDICTING GLOMERULAR FILTRATION RATE . ESTIMATED GFR I S NOT APPLICABLE FOR DIALYSIS PATIEN TS. POCT-GLUCOSE [id number] 13:03:00 Test Item Value Reference Range Interpretation Comments POC-GLUCOSE METER 160 mg/dL 70-110 H TESTED AT [facility] [address] ([facility]) (test code [facility] = 1538) [place] [address] [id number] 09:47:00 Test Item Value Reference Range Interpretation Comments PARTIAL THROMBOPLASTIN TIME 42.3 seconds 23.2-36.1 H (BEAKER) (test code = 760) PROTHROMBIN TIME/[id number] 09:45:00 Test Item Value Reference Range Interpretation Comments PROTIME ([facility]) (test code = 17.6 seconds 11.8-14.4 H 759) INR ([facility]) (test code = 370) 1.4 1.2-1.5 RECOMMENDED COUMADIN/WARFARIN INR THERAPY RANGESSTANDARD DOSE: 2.0 - 3.0 Includes: PROPHYLAXIS forvenous thrombosis, systemic embolization; TREATMENT for venous thrombosis and/or pulmonary embolus.HIGH RISK: Target INR is 2.5-3.5 for patients with mechanical heart valves.POCT-GLUCOSE [id number] 07:23:00 Test Item Value Reference Range Interpretation Comments POC-GLUCOSE METER 171 mg/dL 70-110 H TESTED AT [facility] [address] ([facility]) (test code [facility] = 1538) [place] [address] POCT-GLUCOSE [id number] 21:35:00 Test Item Value Reference Range Interpretation Comments POC-GLUCOSE METER 209 mg/dL 70-110 H TESTED AT [facility] [address] ([facility]) (test code [facility] = 1538) [place] [address] ALPHA FETOPROTEIN (AFP), TUMOR [id number] 18:39:00 Test Item Value Reference Range Interpretation Comments ALPHA-FETOPROTEIN ([facility]) (test 215.0 ng/mL <10.0 H code = 1094) POCT-GLUCOSE [id number] 16:42:00 Test Item Value Reference Range Interpretation Comments POC-GLUCOSE METER 254 mg/dL 70-110 H TESTED AT [facility] [address] ([facility]) (test code [facility] = 1538) [place] [address] RESPIRATORY PANEL [id number] 15:20:00 Test Item Value Reference Range Interpretation Comments HUMAN METAPNEUMOVIRUS Not detected Not detected, (BEAKER) (test code = Inconclusive 5063) RHINOVIRUS (BEAKER) (test Not detected Not detected, code = 4054) Inconclusive INFLUENZA A (BEAKER) (test Not detected Not detected, code = 8405) Inconclusive INFLUENZA A SUBTYPE H1 Not detected Not detected, (BEAKER) (test code = Inconclusive 1466) INFLUENZA A SUBTYPE H3 Not detected Not detected, (BEAKER) (test code = Inconclusive 8937) INFLUENZA A SUBTYPE Not detected Not detected, H1-2009 (BEAKER) (test Inconclusive code = 3198) INFLUENZA B (BEAKER) (test Not detected Not detected, code = 2688) Inconclusive RESPIRATORY SYNCYTIAL Not detected Not detected, VIRUS (BEAKER) (test code Inconclusive = 3199) PARAINFLUENZA VIRUS 1 Not detected Not detected, (BEAKER) (test code = Inconclusive 2691) PARAINFLUENZA VIRUS 2 Not detected Not detected, (BEAKER) (test code = Inconclusive 2692) PARAINFLUENZA VIRUS 3 Not detected Not detected, (BEAKER) (test code = Inconclusive 2693) PARAINFLUENZA VIRUS 4 Not detected Not detected, (BEAKER) (test code = Inconclusive 3200) ADENOVIRUS (BEAKER) (test Not detected Not detected, code = 2694) Inconclusive CORONAVIRUS 229E (BEAKER) Not detected Not detected, (test code = 3201) Inconclusive CORONAVIRUS HKU1 (BEAKER) Not detected Not detected, (test code = 3202) Inconclusive CORONAVIRUS NL63 (BEAKER) Not detected Not detected, (test code = 3203) Inconclusive CORONAVIRUS OC43 (BEAKER) Not detected Not detected, (test code = 3204) Inconclusive BORDETELLA PERTUSSIS Not detected Not detected, (BEAKER) (test code = Inconclusive 3205) CHLAMYDOPHILA PNEUMONIAE Not detected Not detected, (BEAKER) (test code = Inconclusive 3206) MYCOPLASMA PNEUMONIAE Not detected Not detected, (BEAKER) (test code = Inconclusive 3207) POCT-GLUCOSE [id number] 13:03:00 Test Item Value Reference Range Interpretation Comments POC-GLUCOSE METER 176 mg/dL 70-110 H TESTED AT [facility] [address] (BEAKER) (test code [facility] = 1538) [place] [address] POCT-GLUCOSE [id number] 07:51:00 Test Item Value Reference Range Interpretation Comments POC-GLUCOSE METER 172 mg/dL 70-110 H TESTED AT [facility] [address] (BEAKER) (test code [facility] = 1538) [place] [address] BASIC METABOLIC [id number] 07:06:00 Test Item Value Reference Range Interpretation Comments SODIUM (BEAKER) 137 meq/L 135-148 (test code = 381) POTASSIUM (BEAKER) 3.4 meq/L 3.5-5.5 L (test code = 379) CHLORIDE (BEAKER) 100 meq/L 98-106 (test code = 382) CO2 (BEAKER) (test 31 meq/L 20-31 code = 355) BLOOD UREA NITROGEN 9 mg/dL 10-26 L (BEAKER) (test code = 354) CREATININE (BEAKER) 0.60 mg/dL 0.50-1.20 (test code = 358) GLUCOSE RANDOM 149 mg/dL 70-110 H (BEAKER) (test code = 652) CALCIUM (BEAKER) 8.2 mg/dL 8.5-10.5 L (test code = 697) EGFR (BEAKER) (test 131 mL/min/1.73 ESTIM ATED GFR IS code = 1092) sq m NOT ACCURATE CREATININE CLEARANCE IN PREDICTING GLOMERULAR FILTRATION RATE . ESTIMATED GFR I S NOT APPLICABLE FOR DIALYSIS PATIEN TS. CBC W/PLT COUNT & AUTO [id number] 05:59:00 Test Item Value Reference Range Interpretation Comments WHITE BLOOD CELL COUNT (BEAKER) 6.6 K/ L 4.0-10.0 (test code = 775) RED BLOOD CELL COUNT (BEAKER) 2.99 M/ L 4.20-5.80 L (test code = 761) HEMOGLOBIN (BEAKER) (test code = 8.8 GM/DL 13.0-16.8 L 410) HEMATOCRIT (BEAKER) (test code = 28.3 % 40.0-50.0 L 411) MEAN CORPUSCULAR VOLUME (BEAKER) 94.6 fL 82.0-98.0 (test code = 753) MEAN CORPUSCULAR HEMOGLOBIN 29.5 pg 27.0-33.0 (BEAKER) (test code = 751) MEAN CORPUSCULAR HEMOGLOBIN CONC 31.2 GM/DL 32.0-36.0 L (BEAKER) (test code = 752) RED CELL DISTRIBUTION WIDTH 16.1 % 12.0-15.0 H (BEAKER) (test code = 412) PLATELET COUNT (BEAKER) (test 119 K/CU MM 150-430 L code = 756) MEAN PLATELET VOLUME (BEAKER) 8.3 fL 6.5-10.5 (test code = 754) NUCLEATED RED BLOOD CELLS 0 /100 WBC 0-0 (BEAKER) (test code = 413) NEUTROPHILS RELATIVE PERCENT 61 % (BEAKER) (test code = 429) LYMPHOCYTES RELATIVE PERCENT 22 % (BEAKER) (test code = 430) MONOCYTES RELATIVE PERCENT 10 % (BEAKER) (test code = 431) EOSINOPHILS RELATIVE PERCENT 7 % (BEAKER) (test code = 432) BASOPHILS RELATIVE PERCENT 1 % (BEAKER) (test code = 437) NEUTROPHILS ABSOLUTE COUNT 4.10 K/ L 1.80-8.00 (BEAKER) (test code = 670) LYMPHOCYTES ABSOLUTE COUNT 1.40 K/ L 1.48-4.50 L (BEAKER) (test code = 414) MONOCYTES ABSOLUTE COUNT (BEAKER) 0.60 K/ L 0.00-1.30 (test code = 415) EOSINOPHILS ABSOLUTE COUNT 0.50 K/ L 0.00-0.50 (BEAKER) (test code = 416) BASOPHILS ABSOLUTE COUNT (BEAKER) 0.00 K/ L 0.00-0.20 (test code = 417) LEGIONELLA ANTIGEN, [id number] 22:05:00 Test Item Value Reference Range Interpretation Comments L. PNEUMOPHILA Negative - see Negative fo r L. SEROGP 1 UR AG comment pneumophila (BEAKER) (test code serogrou p 1 antigen, = 1156) suggesting no r ecent or current infe ction with this serog roup. Legionellosis c annot be ruled out si nce other serogroup s and species may cau se disease. STREP PNEUMONIAE [id number] 22:05:00 Test Item Value Reference Range Interpretation Comments STREP PNEUMONIAE Presumptive negative Presumptive negative ANTIGEN (BEAKER) for pneumococcal for pneumococcal (test code = 1615) pneumonia - see pneumonia - see comment commen Presumptive negative for pneumococcal pneumonia, suggesting no current or recent pneumococcal infection. Infection due to S. pneumoniae cannot be ruled out since the antigen present in the sample may be below the detection limit of the test.POCT-GLUCOSE [id number] 21:16:00 Test Item Value Reference Range Interpretation Comments POC-GLUCOSE METER 127 mg/dL 70-110 H TESTED AT [facility] [address] ([employer]) (test code [facility] = 1538) [place] [address] POCT-GLUCOSE [id number] 18:08:00 Test Item Value Reference Range Interpretation Comments POC-GLUCOSE METER 242 mg/dL 70-110 H TESTED AT [facility] [address] ([employer]) (test code [facility] = 1538) [place] [address] CT, CHEST, WITHOUT [id number] 15:33:00FINAL REPORT CT of the Chest dated [...] suspicious for hepatocellular carcinoma. Signed: Kathe Melvin MDRort Verified Date/Time: 09/23/2017 15:33:18 Reading Location: [facility] B1 C013Y CT Body Reading Room TISSUE [id number] 14:19:00Surgical Pathology Report Case: [id number] Authorizing Provider: Narayan Reyes MD Collected: 09/20/2017 0908 Ordering Location: [facility] - Perioperative Received: 09/21/2017 0851 Services Pathologist: Lencho De La Garza MD Specimen: Polyp, Colon - Right/Ascending COLON, RIGHT/ASCENDING POLYP, COLONOSCOPY- POLYPOID COLONIC MUCOSA CONSISTENT WITH MUCOSAL TAG- NO ADENOMATOUS CHANGE OR MALIGNANCY IDENTIFIED Signing Pathologist Direct Phone Line: [phone] signed by Lencho De La Garza MD on 09/23/2017 at 2:19 [id number] and anemia; procedure is colonoscopy Polyp right/ascendingThe instrument, paperwork, container, and cassette all read [id number].Received in formalin labeled with the patient's name (Khadijah) and medical record number.Specimen A: Receivedin formalin labeled as "right/ascending polyp" is one tissue 3 x 3 x 1 mm, all in cassette A1. JF/ewThe following special studies were performed on this case and the interpretation is incorporated in the diagnostic report above:IDCV:[id number] 12:31:00 Test Item Value Reference Range Interpretation Comments PROCALCITONIN (BEAKER) (test code 0.13 ng/mL <0.05 H = 3036) SEPSIS RISK (ng/mL)Low: 0.05-0.50Intermediate: 0.51-2.00High: >=2.01POCT-GLUCOSE [id number] 11:53:00 Test Item Value Reference Range Interpretation Comments POC-GLUCOSE METER 227 mg/dL 70-110 H TESTED AT [facility] [address] ([facility]) (test code [facility] = 1538) [place] [address] POCT-GLUCOSE [id number] 08:09:00 Test Item Value Reference Range Interpretation Comments POC-GLUCOSE METER 167 mg/dL 70-110 H TESTED AT [facility] [address] ([facility]) (test code [facility] = 1538) [place] [address] [id number] 08:05:00 Test Item Value Reference Range Interpretation Comments MAGNESIUM (BEAKER) (test code = 1.5 mg/dL 1.5-3.0 627) COMPREHENSIVE METABOLIC [id number] 06:54:00 Test Item Value Reference Range Interpretation Comments TOTAL PROTEIN 6.0 gm/dL 6.0-8.5 (BEAKER) (test code = 770) ALBUMIN ([facility]) 2.6 g/dL 3.5-5.0 L (test code = 1145) ALKALINE PHOSPHATASE 96 U/L 30-115 (BEAKER) (test code = 346) BILIRUBIN TOTAL 1.4 mg/dL 0.1-1.3 H (BEAKER) (test code = 377) SODIUM (BEAKER) (test 138 meq/L 135-148 code = 381) POTASSIUM (BEAKER) 3.0 meq/L 3.5-5.5 LL (test code = 379) CHLORIDE (BEAKER) 101 meq/L 98-106 (test code = 382) CO2 (BEAKER) (test 30 meq/L 20-31 code = 355) BLOOD UREA NITROGEN 10 mg/dL 10-26 (BEAKER) (test code = 354) CREATININE (BEAKER) 0.61 mg/dL 0.50-1.20 (test code = 358) GLUCOSE RANDOM 142 mg/dL 70-110 H (BEAKER) (test code = 652) CALCIUM (BEAKER) 8.3 mg/dL 8.5-10.5 L (test code = 697) AST (SGOT) (BEAKER) 52 U/L 5-40 H (test code = 353) ALT (SGPT) (BEAKER) 27 U/L 6-50 (test code = 347) EGFR (BEAKER) (test 129 ESTIMATE D GFR IS code = 1092) mL/min/1.73 sq NOT ACCURA TE m CREATININE CLEARANCE IN PREDICTING GLOMERULAR FILTRATION RATE . ESTIMATED GFR I S NOT APPLICABLE FOR DIALYSIS PATIEN TS. CBC W/PLT COUNT & AUTO [id number] 06:24:00 Test Item Value Reference Range Interpretation Comments WHITE BLOOD CELL COUNT (BEAKER) 6.4 K/ L 4.0-10.0 (test code = 775) RED BLOOD CELL COUNT (BEAKER) 2.97 M/ L 4.20-5.80 L (test code = 761) HEMOGLOBIN (BEAKER) (test code = 9.0 GM/DL 13.0-16.8 L 410) HEMATOCRIT (BEAKER) (test code = 28.1 % 40.0-50.0 L 411) MEAN CORPUSCULAR VOLUME (BEAKER) 94.6 fL 82.0-98.0 (test code = 753) MEAN CORPUSCULAR HEMOGLOBIN 30.3 pg 27.0-33.0 (BEAKER) (test code = 751) MEAN CORPUSCULAR HEMOGLOBIN CONC 32.0 GM/DL 32.0-36.0 (BEAKER) (test code = 752) RED CELL DISTRIBUTION WIDTH 17.2 % 12.0-15.0 H (BEAKER) (test code = 412) PLATELET COUNT (BEAKER) (test 135 K/CU MM 150-430 L code = 756) MEAN PLATELET VOLUME (BEAKER) 8.1 fL 6.5-10.5 (test code = 754) NUCLEATED RED BLOOD CELLS 0 /100 WBC 0-0 (BEAKER) (test code = 413) NEUTROPHILS RELATIVE PERCENT 53 % (BEAKER) (test code = 429) LYMPHOCYTES RELATIVE PERCENT 23 % (BEAKER) (test code = 430) MONOCYTES RELATIVE PERCENT 17 % (BEAKER) (test code = 431) EOSINOPHILS RELATIVE PERCENT 6 % (BEAKER) (test code = 432) BASOPHILS RELATIVE PERCENT 1 % (BEAKER) (test code = 437) NEUTROPHILS ABSOLUTE COUNT 3.40 K/ L 1.80-8.00 (BEAKER) (test code = 670) LYMPHOCYTES ABSOLUTE COUNT 1.50 K/ L 1.48-4.50 (BEAKER) (test code = 414) MONOCYTES ABSOLUTE COUNT (BEAKER) 1.10 K/ L 0.00-1.30 (test code = 415) EOSINOPHILS ABSOLUTE COUNT 0.40 K/ L 0.00-0.50 (BEAKER) (test code = 416) BASOPHILS ABSOLUTE COUNT (BEAKER) 0.00 K/ L 0.00-0.20 (test code = 417) POCT-GLUCOSE [id number] 00:35:00 Test Item Value Reference Range Interpretation Comments POC-GLUCOSE METER 171 mg/dL 70-110 H TESTED AT [facility] [address] (BEAKER) (test code [facility] = 1538) [place] [address] [id number] 18:12:00Medical Cytology Report Case: [id number] Authorizing Provider: Tamanna Herrera MD Collected: 09/18/2017 1143 Ordering Location: [address] MEDICAL SURGICAL Received: 09/21/2017 1009 Pathologist: Miracle Kaiser MD Specimen: Pleural, Right RIGHT PLEURAL FLUID, CYTOLOGIC PREPARATION:NO MALIGNANT CELLS IDENTIFIED. Signing Pathologist Direct Phone Line: [phone] signed by Miracle Kaiser MD on 09/22/2017 at 6:12 [id number] bleedRight pleural cavityCollected: 09/18/2017 1735Received: 09/21/2017 [id number] ml yellow fluid received fresh; 4 cytospinsAll cytologic preparations have been microscopically examined. The pertinent microscopic examination findings have been incorporated into the diagnosis rendered above.SatisfactorySt. [facility], Department of Pathology, [address] [place] [address], Cv. [facility] Department of Pathology, [address] [place] [address], Mz. [facility] Department of Pathology, [address] [place] [address], TISSUE [id number] 16:29:00Surgical Pathology Report Case: [id number] Authorizing Provider: Narayan Reyes MD Collected: 09/19/2017 1138 Ordering Location: [address] MEDICAL SURGICAL Received: 09/21/2017 0828 Pathologist: Lencho De La Garza MD Specimen: Duodenum, bx DUODENUM, BIOPSY: - SUPERFICIAL FRAGMENTS OF UNREMARKABLE DUODENAL MUCOSA - NO ACTIVE INFLAMMATION, GRANULOMAS, FOAMY HISTIOCYTES, PARASITES, OR INCREASED INTRAEPITHELIAL LYMPHOCYTES IDENTIFIED - NO ADENOMATOUS CHANGE, DYSPLASIA OR MALIGNANCY IDENTIFIED Signing Pathologist Direct Phone Line: [phone] signed by Lencho De La Garza MD on 09/22/2017 at 4:29 [id number]; procedure upper endoscopy Duodenum The instrument, paperwork, container, and cassette all read [id number].Received in formalin labeled with the patient's name (Khadijah) and medical record number.Specimen A: Received in formalin labeled as "duodenum" is one tissue 3 x 3 x 1 mm with a few flecks of debris, all in cassette A1. JF/ewPOCT-GLUCOSE [id number] 16:14:00 Test Item Value Reference Range Interpretation Comments POC-GLUCOSE METER 221 mg/dL 70-110 H TESTED AT [facility] [address] (BEAKER) (test code [facility] = 1538) [place] [address] [id number] 14:45:00 Test Item Value Reference Range Interpretation Comments FERRITIN (BEAKER) (test code = 361) 68 ng/mL 22-322 RAD, CHEST, 1 VIEW, NON [id number] 14:35:00Reason for exam:->pulmonary edemaShould this be performed at the bedside?->YesFINAL REPORT Chest, 1 view, 09/22/2017 2:33 PM. History: Pulmonary edema. Comp arison: 09/21/2017. Discussion: The cardiac silhouette is within normal limits for a portable exam. Diffuse bilateral interstitial/alveolar opacities are again noted, right greater than left, but essentially unchanged compared to prior exam. There is no evidence of significant pleural effusion. The soft tissues and osseous structures are intact. IMPRESSION: No significant interval change in bilateral pulmonary opacities. Signed: Travis Albrecht Verified Date/Time: 09/22/2017 14:35:18 Reading Location: [facility] Diagnostic Imaging Reading Room - [facility] 1.310.12 IRON, TIBC, % SAT. (WITHOUT FERRITIN)2017-09-22 14:30:00 Test Item Value Reference Range Interpretation Comments IRON (BEAKER) (test code = 547) 34 ug/dL 35-175 L TOTAL IRON BINDING CAPACITY 269 ug/dL 250-550 (BEAKER) (test code = 769) IRON % SATURATION (2) (BEAKER) 13 % 20-55 L (test code = 2590) POCT-GLUCOSE [id number] 12:14:00 Test Item Value Reference Range Interpretation Comments POC-GLUCOSE METER 233 mg/dL 70-110 H TESTED AT [facility] [address] (BEAKER) (test code [facility] = 1538) [place] [address] U/S, ABDOMINAL, [id number] 11:12:00Reason for exam:->ascitesFINAL REPORT Technique: Limited abdominal ultrasound dated 09/22/2017. HISTORY: Ascites check. COMPARISON: None IMPRESSION:Small amount of abdominal ascites is seen in all four quadrants. Nodular liver contour is compatible with cirrhosis. Signed: Jada Maddox MDReport Verified Date/Time: 09/22/2017 11:12:47 Reading Location: [facility] Radiology Reading Room [id number] 11:06:00 Test Item Value Reference Range Interpretation Comments AMMONIA (BEAKER) (test code = 348) 66 mol/L 12-72 BLOOD GAS, [id number] 17:43:00 Test Item Value Reference Range Interpretation Comments PH ARTERIAL (BEAKER) (test code = 7.52 7.35-7.45 H 383) PCO2 ARTERIAL (BEAKER) (test code 41 mmHg 35-45 = 384) PO2 ARTERIAL (BEAKER) (test code = 60 mmHg 80-90 L 385) O2 SATURATION ARTERIAL (BEAKER) 93.2 % 96.0-97.0 L (test code = 386) HCO3 ARTERIAL (BEAKER) (test code 33 mmol/L 21-29 H = 388) BASE EXCESS ARTERIAL (BEAKER) 9.1 mmol/L -2.0-3.0 H (test code = 387) PATIENT TEMPERATURE (BEAKER) (test 37.0 C code = 1818) FIO2 (BEAKER) (test code = 1819) 45.0 % U/S, [id number] 16:39:00Reason for exam:->THORACENTESIS RIGHT SIDEFINAL REPORT EXAM: Limited ultrasound of right chest CLINICAL HISTORY: Pleural effusion FINDINGS: Limited evaluation of the right chest demonstrates trace free fluid in the rightpleural space. Thoracentesis was not performed. Signed: Rachel Malhotra MDReport Verified Date/Time: 09/21/2017 16:39:54 Reading Location: [facility] Radiology Reading Room POCT-GLUCOSE METER 2017-09-21 16:35:00 Test Item Value Reference Range Interpretation Comments POC-GLUCOSE METER 138 mg/dL 70-110 H TESTED AT [facility] [address] (BEAKER) (test code [facility] = 1538) [place] [address] POCT-GLUCOSE [id number] 11:59:00 Test Item Value Reference Range Interpretation Comments POC-GLUCOSE METER 261 mg/dL 70-110 H TESTED AT [facility] [address] (BEAKER) (test code [facility] = 1538) [place] [address] BODY FLUID CELL COUNT WITH [id number] 08:40:00 Test Item Value Reference Range Interpretation Comments APPEARANCE FLUID Slightly Hazy Clear A (BEAKER) (test code = 510) COLOR FLUID (BEAKER) Yellow Colorless, Straw A (test code = 511) RBC FLUID (BEAKER) 320 /uL <=1 H (test code = 513) ADJUSTED WBC FLUID 355 /cu mm <=5 H (BEAKER) (test code = 1691) LINING CELLS (BEAKER) 53 /cu mm <=1 H (test code = 1590) NEUTROPHILS FLUID 26 % (BEAKER) (test code = 1656) LYMPHS FLUID (BEAKER) 43 % (test code = 488) MONO/MACROPHAGE FLUID 31 % (BEAKER) (test code = 489) EOSINOPHILS FLUID 0 % (BEAKER) (test code = 491) BASO FLUID (BEAKER) 0 % (test code = 492) INTERPRETATION-210 No malignant cells (BEAKER) (test code = identified. 2619) [id number] Miracle L Kaiser (BEAKER) (test code = 2620) CONTAINER BODY FLUID EDTA Tube (BEAKER) (test code = 2873) BODY FLUID CULTURE + GRAM [id number] 08:19:00 Test Item Value Reference Range Interpretation Comments CULTURE (BEAKER) (test No growth code = 1095) GRAM STAIN RESULT 3+ White blood cells (BEAKER) (test code = seen 1123) GRAM STAIN RESULT No organisms seen (BEAKER) (test code = 43275) POCT-GLUCOSE [id number] 07:38:00 Test Item Value Reference Range Interpretation Comments POC-GLUCOSE METER 157 mg/dL 70-110 H TESTED AT [facility] [address] (BEAKER) (test code [facility] = 1538) [place] [address] BASIC METABOLIC [id number] 06:50:00 Test Item Value Reference Range Interpretation Comments SODIUM (BEAKER) 140 meq/L 135-148 (test code = 381) POTASSIUM (BEAKER) 3.2 meq/L 3.5-5.5 L (test code = 379) CHLORIDE (BEAKER) 102 meq/L 98-106 (test code = 382) CO2 (BEAKER) (test 28 meq/L 20-31 code = 355) BLOOD UREA NITROGEN 11 mg/dL 10-26 (BEAKER) (test code = 354) CREATININE (BEAKER) 0.61 mg/dL 0.50-1.20 (test code = 358) GLUCOSE RANDOM 139 mg/dL 70-110 H (BEAKER) (test code = 652) CALCIUM (BEAKER) 7.8 mg/dL 8.5-10.5 L (test code = 697) EGFR (BEAKER) (test 129 mL/min/1.73 ESTIM ATED GFR IS code = 1092) sq m NOT ACCURATE CREATININE CLEARANCE IN PREDICTING GLOMERULAR FILTRATION RATE . ESTIMATED GFR I S NOT APPLICABLE FOR DIALYSIS PATIEN TS. HEPATIC FUNCTION [id number] 06:50:00 Test Item Value Reference Range Interpretation Comments TOTAL PROTEIN (BEAKER) (test code = 5.6 gm/dL 6.0-8.5 L 770) ALBUMIN (BEAKER) (test code = 1145) 2.4 g/dL 3.5-5.0 L BILIRUBIN TOTAL (BEAKER) (test code 1.4 mg/dL 0.1-1.3 H = 377) BILIRUBIN DIRECT (BEAKER) (test 0.7 mg/dL 0.0-0.5 H code = 706) ALKALINE PHOSPHATASE (BEAKER) (test 77 U/L 30-115 code = 346) AST (SGOT) (BEAKER) (test code = 54 U/L 5-40 H 353) ALT (SGPT) (BEAKER) (test code = 24 U/L 6-50 347) CBC W/PLT COUNT & AUTO [id number] 06:37:00 Test Item Value Reference Range Interpretation Comments WHITE BLOOD CELL COUNT (BEAKER) 6.5 K/ L 4.0-10.0 (test code = 775) RED BLOOD CELL COUNT (BEAKER) 2.69 M/ L 4.20-5.80 L (test code = 761) HEMOGLOBIN (BEAKER) (test code = 8.2 GM/DL 13.0-16.8 L 410) HEMATOCRIT (BEAKER) (test code = 25.6 % 40.0-50.0 L 411) MEAN CORPUSCULAR VOLUME (BEAKER) 95.4 fL 82.0-98.0 (test code = 753) MEAN CORPUSCULAR HEMOGLOBIN 30.6 pg 27.0-33.0 (BEAKER) (test code = 751) MEAN CORPUSCULAR HEMOGLOBIN CONC 32.1 GM/DL 32.0-36.0 (BEAKER) (test code = 752) RED CELL DISTRIBUTION WIDTH 16.2 % 12.0-15.0 H (BEAKER) (test code = 412) PLATELET COUNT (BEAKER) (test 124 K/CU MM 150-430 L code = 756) MEAN PLATELET VOLUME (BEAKER) 8.2 fL 6.5-10.5 (test code = 754) NUCLEATED RED BLOOD CELLS 0 /100 WBC 0-0 (BEAKER) (test code = 413) NEUTROPHILS RELATIVE PERCENT 61 % (BEAKER) (test code = 429) LYMPHOCYTES RELATIVE PERCENT 21 % (BEAKER) (test code = 430) MONOCYTES RELATIVE PERCENT 14 % (BEAKER) (test code = 431) EOSINOPHILS RELATIVE PERCENT 3 % (BEAKER) (test code = 432) BASOPHILS RELATIVE PERCENT 0 % (BEAKER) (test code = 437) NEUTROPHILS ABSOLUTE COUNT 4.00 K/ L 1.80-8.00 (BEAKER) (test code = 670) LYMPHOCYTES ABSOLUTE COUNT 1.40 K/ L 1.48-4.50 L (BEAKER) (test code = 414) MONOCYTES ABSOLUTE COUNT (BEAKER) 0.90 K/ L 0.00-1.30 (test code = 415) EOSINOPHILS ABSOLUTE COUNT 0.20 K/ L 0.00-0.50 (BEAKER) (test code = 416) BASOPHILS ABSOLUTE COUNT (BEAKER) 0.00 K/ L 0.00-0.20 (test code = 417) HEMOGLOBIN AND [id number] 06:36:00 Test Item Value Reference Range Interpretation Comments HEMOGLOBIN (BEAKER) (test code = 8.2 GM/DL 13.0-16.8 L 410) HEMATOCRIT (BEAKER) (test code = 25.6 % 40.0-50.0 L 411) RAD, CHEST, 1 VIEW, NON [id number] 03:55:00Reason for exam:->sob, h/o pleural effShould this be performed at the bedside?->YesFINAL REPORT RAD, CHEST, 1 VIEW, NON DEPT INDICATION: sob, h/o pleural eff COM PARISON: September 19, 2017 FINDINGS: Portable frontal view of the chest. IMPRESSION: Increasing interstitial and alveolar disease compared to the prior examination. Trace left effusion. No pneumothorax has developed. Mediastinal contours are grossly stable with cardiac size within normal limits. Signed: JR Tenorio Robert MDReport Verified Date/Time: 09/21/2017 03:55:11 Reading Location: [address] Body Reading Room HEPATITIS PANEL, [id number] 18:08:00 Test Item Value Reference Range Interpretation Comments HEPATITIS A IGM ANTIBODY (BEAKER) Nonreactive Nonreactive (test code = 498) HEPATITIS B CORE IGM ANTIBODY Nonreactive Nonreactive (BEAKER) (test code = 645) HEPATITIS C ANTIBODY (BEAKER) Nonreactive Nonreactive (test code = 367) HEPATITIS B SURFACE ANTIGEN (2) Nonreactive Nonreactive (BEAKER) (test code = 2585) HEMOGLOBIN AND [id number] 13:04:00 Test Item Value Reference Range Interpretation Comments HEMOGLOBIN (BEAKER) (test code = 8.5 GM/DL 13.0-16.8 L 410) HEMATOCRIT (BEAKER) (test code = 27.6 % 40.0-50.0 L 411) POCT-GLUCOSE [id number] 08:36:00 Test Item Value Reference Range Interpretation Comments POC-GLUCOSE METER 173 mg/dL 70-110 H TESTED AT [facility] [address] (BEAKER) (test code [facility] = 1538) [place] [address] BASIC METABOLIC [id number] 06:05:00 Test Item Value Reference Range Interpretation Comments SODIUM (BEAKER) 140 meq/L 135-148 (test code = 381) POTASSIUM (BEAKER) 3.3 meq/L 3.5-5.5 L (test code = 379) CHLORIDE (BEAKER) 102 meq/L 98-106 (test code = 382) CO2 (BEAKER) (test 28 meq/L 20-31 code = 355) BLOOD UREA NITROGEN 20 mg/dL 10-26 (BEAKER) (test code = 354) CREATININE (BEAKER) 0.74 mg/dL 0.50-1.20 (test code = 358) GLUCOSE RANDOM 177 mg/dL 70-110 H (BEAKER) (test code = 652) CALCIUM (BEAKER) 8.0 mg/dL 8.5-10.5 L (test code = 697) EGFR (BEAKER) (test 103 mL/min/1.73 ESTIM ATED GFR IS code = 1092) sq m NOT ACCURATE CREATININE CLEARANCE IN PREDICTING GLOMERULAR FILTRATION RATE . ESTIMATED GFR I S NOT APPLICABLE FOR DIALYSIS PATIEN TS. HEPATIC FUNCTION [id number] 06:05:00 Test Item Value Reference Range Interpretation Comments TOTAL PROTEIN (BEAKER) (test code = 6.0 gm/dL 6.0-8.5 770) ALBUMIN (BEAKER) (test code = 1145) 2.6 g/dL 3.5-5.0 L BILIRUBIN TOTAL (BEAKER) (test code 1.6 mg/dL 0.1-1.3 H = 377) BILIRUBIN DIRECT (BEAKER) (test 0.8 mg/dL 0.0-0.5 H code = 706) ALKALINE PHOSPHATASE (BEAKER) (test 82 U/L 30-115 code = 346) AST (SGOT) (BEAKER) (test code = 66 U/L 5-40 H 353) ALT (SGPT) (BEAKER) (test code = 28 U/L 6-50 347) CBC W/PLT COUNT & AUTO [id number] 05:38:00 Test Item Value Reference Range Interpretation Comments WHITE BLOOD CELL COUNT (BEAKER) 12.1 K/ L 4.0-10.0 H (test code = 775) RED BLOOD CELL COUNT (BEAKER) 2.56 M/ L 4.20-5.80 L (test code = 761) HEMOGLOBIN (BEAKER) (test code = 8.0 GM/DL 13.0-16.8 L 410) HEMATOCRIT (BEAKER) (test code = 24.6 % 40.0-50.0 L 411) MEAN CORPUSCULAR VOLUME (BEAKER) 96.0 fL 82.0-98.0 (test code = 753) MEAN CORPUSCULAR HEMOGLOBIN 31.2 pg 27.0-33.0 (BEAKER) (test code = 751) MEAN CORPUSCULAR HEMOGLOBIN CONC 32.5 GM/DL 32.0-36.0 (BEAKER) (test code = 752) RED CELL DISTRIBUTION WIDTH 16.3 % 12.0-15.0 H (BEAKER) (test code = 412) PLATELET COUNT (BEAKER) (test 148 K/CU MM 150-430 L code = 756) MEAN PLATELET VOLUME (BEAKER) 8.2 fL 6.5-10.5 (test code = 754) NUCLEATED RED BLOOD CELLS 0 /100 WBC 0-0 (BEAKER) (test code = 413) NEUTROPHILS RELATIVE PERCENT 76 % (BEAKER) (test code = 429) LYMPHOCYTES RELATIVE PERCENT 10 % (BEAKER) (test code = 430) MONOCYTES RELATIVE PERCENT 13 % (BEAKER) (test code = 431) EOSINOPHILS RELATIVE PERCENT 0 % (BEAKER) (test code = 432) BASOPHILS RELATIVE PERCENT 0 % (BEAKER) (test code = 437) NEUTROPHILS ABSOLUTE COUNT 9.20 K/ L 1.80-8.00 H (BEAKER) (test code = 670) LYMPHOCYTES ABSOLUTE COUNT 1.20 K/ L 1.48-4.50 L (BEAKER) (test code = 414) MONOCYTES ABSOLUTE COUNT (BEAKER) 1.60 K/ L 0.00-1.30 H (test code = 415) EOSINOPHILS ABSOLUTE COUNT 0.00 K/ L 0.00-0.50 (BEAKER) (test code = 416) BASOPHILS ABSOLUTE COUNT (BEAKER) 0.00 K/ L 0.00-0.20 (test code = 417) POCT-GLUCOSE [id number] 15:55:00 Test Item Value Reference Range Interpretation Comments POC-GLUCOSE METER 277 mg/dL 70-110 H TESTED AT [facility] [address] (BEAKER) (test code [facility] = 1538) [place] [address] [id number] 15:43:00 Test Item Value Reference Range Interpretation Comments MAGNESIUM (BEAKER) (test code = 1.9 mg/dL 1.5-3.0 627) BASIC METABOLIC [id number] 15:43:00 Test Item Value Reference Range Interpretation Comments SODIUM (BEAKER) 136 meq/L 135-148 (test code = 381) POTASSIUM (BEAKER) 3.8 meq/L 3.5-5.5 (test code = 379) CHLORIDE (BEAKER) 101 meq/L 98-106 (test code = 382) CO2 (BEAKER) (test 24 meq/L 20-31 code = 355) BLOOD UREA NITROGEN 23 mg/dL 10-26 (BEAKER) (test code = 354) CREATININE (BEAKER) 0.88 mg/dL 0.50-1.20 (test code = 358) GLUCOSE RANDOM 284 mg/dL 70-110 H (BEAKER) (test code = 652) CALCIUM (BEAKER) 8.1 mg/dL 8.5-10.5 L (test code = 697) EGFR (BEAKER) (test 84 mL/min/1.73 ESTIMA POP GFR IS code = 1092) sq m NOT ACCURATE CREATININE CLEARANCE IN PREDICTING GLOMERULAR FILTRATION RATE . ESTIMATED GFR I S NOT APPLICABLE FOR DIALYSIS PATIEN TS. HEMOGLOBIN AND [id number] 15:37:00 Test Item Value Reference Range Interpretation Comments HEMOGLOBIN (BEAKER) (test code = 8.2 GM/DL 13.0-16.8 L 410) HEMATOCRIT (BEAKER) (test code = 25.9 % 40.0-50.0 L 411) POCT-GLUCOSE [id number] 10:38:00 Test Item Value Reference Range Interpretation Comments POC-GLUCOSE METER 224 mg/dL 70-110 H TESTED AT [facility] [address] (BEAKER) (test code [facility] = 1538) [place] [address] HEMOGLOBIN [id number] 09:10:00 Test Item Value Reference Range Interpretation Comments HEMOGLOBIN A1C (BEAKER) (test code = 5.5 % 4.3-6.1 368) TROPONIN [id number] 06:50:00 Test Item Value Reference Range Interpretation Comments TROPONIN I (BEAKER) (test code = 0.49 ng/mL 0.00-0.15 HH 397) Troponin I (TnI) levels must be interpreted [...] and persistent tachyarrhythmia.RAD, CHEST, 1 VIEW, NON [id number] 06:49:00Reason for exam:->dyspneaShould this be performed at the bedside?->YesFINAL REPORT RAD, CHEST, 1 VIEW, NON DEPT INDICATION: dyspnea COMPARISON: Prior day's exam FINDINGS: Portable [...] MDReport Verified Date/Time: 09/19/2017 06:49:48 Reading Location: [address] Body Reading Room HEALTH APPALACHIANEPATIC FUNCTION [id number] 06:40:00 Test Item Value Reference Range Interpretation Comments TOTAL PROTEIN (BEAKER) (test code = 6.6 gm/dL 6.0-8.5 770) ALBUMIN (BEAKER) (test code = 1145) 2.9 g/dL 3.5-5.0 L BILIRUBIN TOTAL (BEAKER) (test code 1.8 mg/dL 0.1-1.3 H = 377) BILIRUBIN DIRECT (BEAKER) (test 1.0 mg/dL 0.0-0.5 H code = 706) ALKALINE PHOSPHATASE (BEAKER) (test 94 U/L 30-115 code = 346) AST (SGOT) (BEAKER) (test code = 70 U/L 5-40 H 353) ALT (SGPT) (BEAKER) (test code = 30 U/L 6-50 347) LIPID [id number] 06:39:00 Test Item Value Reference Range Interpretation Comments TRIGLYCERIDES (BEAKER) (test code = 91 mg/dL 540) CHOLESTEROL (BEAKER) (test code = 152 mg/dL 631) HDL CHOLESTEROL (BEAKER) (test code 16 mg/dL = 976) LDL CHOLESTEROL CALCULATED (BEAKER) 118 mg/dL (test code = 633) Triglyceride Reference Range: Low Risk <150 Borderline 150-199 High Risk 200-499 Very High Risk >=500Cholesterol Reference Range: Low Risk <200 Borderline 200-239 High Risk >240HDL Cholesterol Reference Range: Low Risk >=60 High Risk <40LDL Cholesterol Reference Range: Optimal <100 Near Optimal 100-129 Borderline 130-159 High 160-189 Very High >=190BASIC METABOLIC [id number] 06:39:00 Test Item Value Reference Range Interpretation Comments SODIUM (BEAKER) 139 meq/L 135-148 (test code = 381) POTASSIUM (BEAKER) 4.1 meq/L 3.5-5.5 (test code = 379) CHLORIDE (BEAKER) 104 meq/L 98-106 (test code = 382) CO2 (BEAKER) (test 24 meq/L 20-31 code = 355) BLOOD UREA NITROGEN 21 mg/dL 10-26 (BEAKER) (test code = 354) CREATININE (BEAKER) 0.77 mg/dL 0.50-1.20 (test code = 358) GLUCOSE RANDOM 206 mg/dL 70-110 H (BEAKER) (test code = 652) CALCIUM (BEAKER) 8.2 mg/dL 8.5-10.5 L (test code = 697) EGFR (BEAKER) (test 98 mL/min/1.73 ESTIMA POP GFR IS code = 1092) sq m NOT ACCURATE CREATININE CLEARANCE IN PREDICTING GLOMERULAR FILTRATION RATE . ESTIMATED GFR I S NOT APPLICABLE FOR DIALYSIS PATIEN TS. CBC W/PLT COUNT & AUTO [id number] 06:33:00 Test Item Value Reference Range Interpretation Comments WHITE BLOOD CELL COUNT 12.3 K/ L 4.0-10.0 H (BEAKER) (test code = 775) RED BLOOD CELL COUNT 2.93 M/ L 4.20-5.80 L (BEAKER) (test code = 761) HEMOGLOBIN (BEAKER) 8.6 GM/DL 13.0-16.8 L (test code = 410) HEMATOCRIT (BEAKER) 28.6 % 40.0-50.0 L (test code = 411) MEAN CORPUSCULAR 97.6 fL 82.0-98.0 VOLUME (BEAKER) (test code = 753) MEAN CORPUSCULAR 29.4 pg 27.0-33.0 HEMOGLOBIN (BEAKER) (test code = 751) MEAN CORPUSCULAR 30.1 GM/DL 32.0-36.0 L HEMOGLOBIN CONC (BEAKER) (test code = 752) RED CELL DISTRIBUTION 16.0 % 12.0-15.0 H WIDTH (BEAKER) (test code = 412) PLATELET COUNT 157 K/CU MM 150-430 Discordant re sult (BEAKER) (test code = compar ed to previous 756) result. Clinica l correlation required. MEAN PLATELET VOLUME 8.8 fL 6.5-10.5 (BEAKER) (test code = 754) NUCLEATED RED BLOOD 0 /100 WBC 0-0 CELLS (BEAKER) (test code = 413) NEUTROPHILS RELATIVE 84 % PERCENT (BEAKER) (test code = 429) LYMPHOCYTES RELATIVE 7 % PERCENT (BEAKER) (test code = 430) MONOCYTES RELATIVE 9 % PERCENT (BEAKER) (test code = 431) EOSINOPHILS RELATIVE 0 % PERCENT (BEAKER) (test code = 432) BASOPHILS RELATIVE 0 % PERCENT (BEAKER) (test code = 437) NEUTROPHILS ABSOLUTE 10.30 K/ L 1.80-8.00 H COUNT (BEAKER) (test code = 670) LYMPHOCYTES ABSOLUTE 0.80 K/ L 1.48-4.50 L COUNT (BEAKER) (test code = 414) MONOCYTES ABSOLUTE 1.10 K/ L 0.00-1.30 COUNT (BEAKER) (test code = 415) EOSINOPHILS ABSOLUTE 0.00 K/ L 0.00-0.50 COUNT (BEAKER) (test code = 416) BASOPHILS ABSOLUTE 0.00 K/ L 0.00-0.20 COUNT (BEAKER) (test code = 417) PROTHROMBIN [id number] 06:30:00 Test Item Value Reference Range Interpretation Comments PROTIME (BEAKER) (test code = 21.1 seconds 11.8-14.4 H 759) INR (BEAKER) (test code = 370) 1.8 1.2-1.5 H RECOMMENDED COUMADIN/WARFARIN INR THERAPY RANGESSTANDARD DOSE: 2.0 - 3.0 Includes: PROPHYLAXIS forvenous thrombosis, systemic embolization; TREATMENT for venous thrombosis and/or pulmonary embolus.HIGH RISK: Target INR is 2.5-3.5 for patients with mechanical heart valves.B-TYPE NATRIURETIC FACTOR (BNP)2017-09-19 06:06:00 Test Item Value Reference Range Interpretation Comments B-TYPE NATRIURETIC PEPTIDE (BEAKER) 726 pg/mL 0-100 H (test code = 700) TROPONIN [id number] 02:21:00 Test Item Value Reference Range Interpretation Comments TROPONIN I (BEAKER) (test code = 0.61 ng/mL 0.00-0.15 HH 397) Troponin I (TnI) levels must be interpreted [...] acute neurological disease, and persistent tachyarrhythmia.HEMOGLOBIN AND [id number] 01:53:00 Test Item Value Reference Range Interpretation Comments HEMOGLOBIN (BEAKER) (test code = 8.2 GM/DL 13.0-16.8 L 410) HEMATOCRIT (BEAKER) (test code = 25.7 % 40.0-50.0 L 411) TYPE AND SCREEN, [id number] 19:59:00 Test Item Value Reference Range Interpretation Comments ABO/RH AUTOMATED (BEAKER) (test O POSITIVE code = 2260) AB SCREEN (BEAKER) (test code = NEGATIVE 923) RAD, CHEST, 1 VIEW, NON [id number] 19:20:00PT IN RAD ROOM 1Reason for exam:- [...] acute osseous abnormalities are identified. Signed: Gerardo Caatlan MDReport Verified Date/Time: 09/18/2017 19:20:43 Reading Location: [facility] B1 [id number] Consult Reading Room BLOOD GAS, [id number] 18:57:00 Test Item Value Reference Range Interpretation Comments PH ARTERIAL (BEAKER) (test code = 7.45 7.35-7.45 383) PCO2 ARTERIAL (BEAKER) (test code 38 mmHg 35-45 = 384) PO2 ARTERIAL (BEAKER) (test code = 84 mmHg 80-90 385) O2 SATURATION ARTERIAL (BEAKER) 96.8 % 96.0-97.0 (test code = 386) HCO3 ARTERIAL (BEAKER) (test code 26 mmol/L 21-29 = 388) BASE EXCESS ARTERIAL (BEAKER) 2.0 mmol/L -2.0-3.0 (test code = 387) PATIENT TEMPERATURE (BEAKER) (test 37.0 C code = 1818) FIO2 (BEAKER) (test code = 1819) 100.0 % U/S, [id number] 18:46:00Laterality?->RightReason for exam:- >Right effusioinFINAL REPORT Exam: Ultrasound guided thoracentesis Clinical [...] thoracentesis. Signed: Rachel Malhotra MDReport Verified Date/Time: 09/18/2017 18:46:53 Reading Location: [facility] Radiology Reading Room LACTATE DEHYDROGENASE (LDH), BODY [id number] 18:31:00 Test Item Value Reference Range Interpretation Comments LACTATE DEHYDROGENASE FLUID 104 U/L Light's criteria (BEAKER) (test code = 634) identifies effusions if one or more are pre Absence of reference range indicates that normals have not been defined.Assay performance has not been validated for this type of specimen.GLUCOSE, BODY FLUID 2017-09-18 18:31:00 Test Item Value Reference Range Interpretation Comments GLUCOSE, BODY FLUID (BEAKER) (test 234 mg/dL 70-110 H code = 1528) Absence of reference range indicates that normals have not been defined.Assay performance has not been validated for this type of specimen.ALBUMIN, BODY FLUID 2017-09-18 18:31:00 Test Item Value Reference Range Interpretation Comments ALBUMIN FLUID (BEAKER) (test code = 0.7 gm/dL 501) Reference Range: No Normals Assay performance has not been validated for this type of specimen.PROTEIN, BODY [id number] 18:31:00 Test Item Value Reference Range Interpretation Comments PROTEIN FLUID (BEAKER) 1.0 g/dL Light's criteria identifies (test code = 579) effusions if one or more are pre Absence of reference range indicates that normals have not been defined.Assay performance has not been validated for this type of specimen.POCT-GLUCOSE METER 2017-09-18 16:46:00 Test Item Value Reference Range Interpretation Comments POC-GLUCOSE METER 250 mg/dL 70-110 H TESTED AT [facility] [address] ([facility]) (test code [facility] = 1538) [place] [address] [id number] 16:42:00 Test Item Value Reference Range Interpretation Comments PROCALCITONIN (BEAKER) (test code 0.29 ng/mL <0.05 H = 3036) SEPSIS RISK (ng/mL)Low: 0.05-0.50Intermediate: 0.51-2.00High: >=2.01LACTATE DEHYDROGENASE (LDH)2017-09-18 15:36:00 Test Item Value Reference Range Interpretation Comments LACTATE DEHYDROGENASE 344 U/L 125-225 H Specim en slightly (BEAKER) (test code = hemoly zed 635) TROPONIN [id number] 15:31:00 Test Item Value Reference Range Interpretation Comments TROPONIN I (BEAKER) (test code = 0.43 ng/mL 0.00-0.15 HH 397) Troponin I (TnI) levels must be interpreted [...] and persistent tachyarrhythmia.CREATINE KINASE (CK), TOTAL AND MB 2017-09-18 15:28:00 Test Item Value Reference Range Interpretation Comments CREATINE KINASE TOTAL (BEAKER) 153 U/L 30-300 (test code = 380) CREATINE KINASE-MB (BEAKER) (test 6.4 ng/mL 0.0-4.9 H code = 750) CREATINE KINASE-MB INDEX (BEAKER) 4.2 % (test code = 395) CK-MB Reference Range:<5 Normal5-10 Borderline>10 AbnormalBASIC METABOLIC [id number] 15:20:00 Test Item Value Reference Range Interpretation Comments SODIUM (BEAKER) 138 meq/L 135-148 (test code = 381) POTASSIUM (BEAKER) 3.9 meq/L 3.5-5.5 Specimen slightly (test code = 379) hemolyzed CHLORIDE (BEAKER) 103 meq/L 98-106 (test code = 382) CO2 (BEAKER) (test 22 meq/L 20-31 code = 355) BLOOD UREA NITROGEN 16 mg/dL 10-26 (BEAKER) (test code = 354) CREATININE (BEAKER) 0.73 mg/dL 0.50-1.20 Specimen slightly (test code = 358) hemolyzed GLUCOSE RANDOM 237 mg/dL 70-110 H (BEAKER) (test code = 652) CALCIUM (BEAKER) 8.3 mg/dL 8.5-10.5 L (test code = 697) EGFR (BEAKER) (test 104 mL/min/1.73 ESTIM ATED GFR IS code = 1092) sq m NOT ACCURATE CREATININE CLEARANCE IN PREDICTING GLOMERULAR FILTRATION RATE . ESTIMATED GFR I S NOT APPLICABLE FOR DIALYSIS PATIEN TS. PROTHROMBIN [id number] 15:16:00 Test Item Value Reference Range Interpretation Comments PROTIME (BEAKER) (test code = 21.5 seconds 11.8-14.4 H 759) INR (BEAKER) (test code = 370) 1.9 1.2-1.5 H RECOMMENDED COUMADIN/WARFARIN INR THERAPY RANGESSTANDARD DOSE: 2.0 - 3.0 Includes: PROPHYLAXIS forvenous thrombosis, systemic embolization; TREATMENT for venous thrombosis and/or pulmonary embolus.HIGH RISK: Target INR is 2.5-3.5 for patients with mechanical heart valves.CBC W/PLT COUNT & AUTO DIFFERENTIAL 2017-09-18 15:06:00 Test Item Value Reference Range Interpretation Comments WHITE BLOOD CELL COUNT (BEAKER) 9.3 K/ L 4.0-10.0 (test code = 775) RED BLOOD CELL COUNT (BEAKER) 2.48 M/ L 4.20-5.80 L (test code = 761) HEMOGLOBIN (BEAKER) (test code = 7.9 GM/DL 13.0-16.8 L 410) HEMATOCRIT (BEAKER) (test code = 24.4 % 40.0-50.0 L 411) MEAN CORPUSCULAR VOLUME (BEAKER) 98.2 fL 82.0-98.0 H (test code = 753) MEAN CORPUSCULAR HEMOGLOBIN 31.7 pg 27.0-33.0 (BEAKER) (test code = 751) MEAN CORPUSCULAR HEMOGLOBIN CONC 32.3 GM/DL 32.0-36.0 (BEAKER) (test code = 752) RED CELL DISTRIBUTION WIDTH 15.5 % 12.0-15.0 H (BEAKER) (test code = 412) PLATELET COUNT (BEAKER) (test 213 K/CU MM 150-430 code = 756) MEAN PLATELET VOLUME (BEAKER) 8.5 fL 6.5-10.5 (test code = 754) NUCLEATED RED BLOOD CELLS 0 /100 WBC 0-0 (BEAKER) (test code = 413) NEUTROPHILS RELATIVE PERCENT 86 % (BEAKER) (test code = 429) LYMPHOCYTES RELATIVE PERCENT 6 % (BEAKER) (test code = 430) MONOCYTES RELATIVE PERCENT 8 % (BEAKER) (test code = 431) EOSINOPHILS RELATIVE PERCENT 0 % (BEAKER) (test code = 432) BASOPHILS RELATIVE PERCENT 0 % (BEAKER) (test code = 437) NEUTROPHILS ABSOLUTE COUNT 8.00 K/ L 1.80-8.00 (BEAKER) (test code = 670) LYMPHOCYTES ABSOLUTE COUNT 0.60 K/ L 1.48-4.50 L (BEAKER) (test code = 414) MONOCYTES ABSOLUTE COUNT (BEAKER) 0.70 K/ L 0.00-1.30 (test code = 415) EOSINOPHILS ABSOLUTE COUNT 0.00 K/ L 0.00-0.50 (BEAKER) (test code = 416) BASOPHILS ABSOLUTE COUNT (BEAKER) 0.00 K/ L 0.00-0.20 (test code = 417) PLATELET [id number] 15:04:00 Test Item Value Reference Range Interpretation Comments PLATELET COUNT (BEAKER) (test 213 K/CU MM 150-430 code = 756)
[2020-02-03 12:41] LABS: Absolute Lymphocytes (CBC) 0.7 K/uL (0.7-4.9); Basophils % 0.5 % (0-1.3); Hematocrit 21.9 % (39.6-49.0); Lymphocytes % 34.7 % (15.3-44.8); MPV 9.2 fL (7.6-11.3); RBC Red Blood Cell Count 2.29 M/uL (4.33-5.43)
[2020-02-03 12:56] LABS: BUN Blood Urea Nitrogen 8 mg/dL (7-18); Bicarbonate 23 mmol/L (21-32); Glucose Level 286 mg/dL (74-106); Potassium 4.3 mmol/L (3.5-5.1); Sodium Level 140 mmol/L (136-145)
--- NOTE | 2020-02-03 13:04 | ER ---
Nurse's Notes [facility] Name: Jean Lucio III Age: 79 yrs Sex: Male : 1940 Arrival Date: 02/03/2020 Time: 11:41 Bed 20 Private MD: Diagnosis: Anemia, unspecified-chronic Presentation: 02/02 11:45 Chief complaint: EMS states: Blood work resulted today. Hgb at 6.1. Had history of BT x ca1 3 in the past. Coronavirus screen: Proceed with normal triage. Patient denies a cough. Patient denies shortness of breath or difficulty breathing. Patient denies measured and/or subjective temperature greater than 100.4F prior to today's visit. Patient denies travel on a cruise ship or to a country the [facility] currently lists as an affected area. Patient denies contact with known and/or suspected case of COVID-19. Ebola Screen: Patient negative for fever greater than or equal to 101.5 degrees Fahrenheit, and additional compatible Ebola Virus Disease symptoms Patient denies exposure to infectious person. Patient denies travel to an Ebola-affected area in the 21 days before illness onset. No symptoms or risks identified at this time. Initial Sepsis Screen: Does the patient meet any 2 criteria? No. Patient's initial sepsis screen is negative. Does the patient have a suspected source of infection? No. Patient's initial sepsis screen is negative. Risk Assessment: Do you want to hurt yourself or someone else? Patient reports no desire to harm self or others. Onset of symptoms was February 03, 2020. Transition of care: patient was received from another setting of care (long-term care facility)[facility]. 11:45 Method Of Arrival: EMS: [facility] ca1 11:45 Acuity: RITA 3 ca1 Historical: - Allergies: 11:51 No Known Allergies; ca1 - PMHx: 11:51 Anemia; Angiodysplasia of duodenum; CAD s/p NH; Cholithiasis; COPD; Diabetes - NIDDM; ca1 diagnosed with cancer at [place], did not seek treatment; etoh abuse; Gastric varices; GERD; Hyperlipidemia; Hypertension; liver cancer; metabolic encephalopathy; Myocardial infarction; Pneumonia; rhabdomyolysis; UTI; - Immunization history:: Adult Immunizations up to date. - Social history:: Smoking status: Patient reports the use of cigarette tobacco products, smokes one-half pack cigarettes per day. Screenin:50 Abuse screen: Denies threats or abuse. Denies injuries from another. Nutritional ca1 screening: No deficits noted. Tuberculosis screening: No symptoms or risk factors identified. Fall Risk IV access (20 points). Assessment: 11:50 General: Appears in no apparent distress. comfortable, Behavior is calm, cooperative, ca1 appropriate for age. Pain: Denies pain. Neuro: Level of Consciousness is awake, alert, obeys commands, Oriented to person, place, time, situation. Cardiovascular: Heart tones S1 S2 present Capillary refill < 3 seconds Patient's skin is warm and dry. Respiratory: Airway is patent Respiratory effort is even, unlabored, Respiratory pattern is regular, symmetrical, Breath sounds are clear bilaterally. GI: Abdomen is flat, non-distended, Bowel sounds present X 4 quads. Abd is soft and non tender X 4 quads. : No signs and/or symptoms were reported regarding the genitourinary system. EENT: No signs and/or symptoms were reported regarding the EENT system. Derm: Skin is intact, is healthy with good turgor, Skin is dry, Skin is pale, Skin temperature is warm. Musculoskeletal: Circulation, motion, and sensation intact. Capillary refill < 3 seconds. 12:36 Reassessment: Patient appears in no apparent distress at this time. Patient and/or ca1 family updated on plan of care and expected duration. Pain level reassessed. Patient is alert, oriented x 3, equal unlabored respirations, skin warm/dry/pink. 13:38 Reassessment: Patient appears in no apparent distress at this time. Patient is alert, ca1 oriented x 3, equal unlabored respirations, skin warm/dry/pink. 14:29 Reassessment: Patient appears in no apparent distress at this time. Patient is alert, ca1 oriented x 3, equal unlabored respirations, skin warm/dry/pink. Awaiting transport from [place]. 14:40 Reassessment: PT D/C HOME TO [place] [facility]. bp Vital Signs: 11:45 BP 160 / 58; Pulse 71; Resp 17 S; Temp 98.3(O); Pulse Ox 100% on R/A; Weight 73.48 kg ca1 (R); Height 6 ft. 0 in. (182.88 cm) (R); Pain 0/10; 12:35 BP 158 / 56; Pulse 70; Resp 15 S; Pulse Ox 100% on R/A; ca1 13:38 BP 146 / 66; Pulse 77; Resp 15 S; Pulse Ox 100% on R/A; ca1 11:45 Body Mass Index 21.97 (73.48 kg, 182.88 cm) ca1 ED Course: 11:41 Patient arrived in ED. ca1 11:41 Rosalinda Jauregui FNP-C is [facility]. kb 11:41 Len Lei MD is Attending Physician. kb 11:45 Gwen Tse, RN is Primary Nurse. ca1 11:50 Triage completed. ca1 11:50 Patient has correct armband on for positive identification. Placed in gown. Bed in low ca1 position. Call light in reach. Side rails up X2. Pulse ox on. NIBP on. Warm blanket given. 11:51 Arm band placed on right wrist. ca1 12:20 Missed attempt(s): 18 gauge in right antecubital area. Bleeding controlled, band aid ca1 applied, catheter tip intact. 12:25 Initial lab(s) drawn, by al, sent to lab. Inserted saline lock: 20 gauge in left ca1 forearm, using aseptic technique. Blood collected. 13:39 No provider procedures requiring assistance completed. ca1 14:30 IV discontinued, intact, bleeding controlled, No redness/swelling at site. Pressure ca1 dressing applied. Administered Medications: No medications were administered Outcome: 13:03 Discharge ordered by . kb 14:41 Discharged to intermediate. Report called to [facility] Transfer form completed. bp 14:41 Condition: stable 14:41 Instructed on discharge instructions, follow up and referral plans. 14:41 Patient left the ED. bp Signatures: Rosalinda Jauregui FNP-C FNP-Ckb Peltier, Brian RN RN bp Gwen Tse, JENIFER RN ca1
--- NOTE | 2020-02-03 13:04 | EDPHYS ---
Physician Documentation [facility] Name: Jean Lucio III Age: 79 yrs Sex: Male : 1940 Arrival Date: 02/03/2020 Time: 11:41 Bed 20 Private MD: ED Physician Len Lei HPI: 02/02 12:59 This 79 yrs old Male presents to ER via EMS with complaints of low hemoglobin.kb 12:59 Pt reports he has anemia and was sent here for a blood transfusion. States he has kb chronic anemia and has to get blood transfusions frequently. . Onset: The symptoms/episode began/occurred today. Severity of symptoms: At their worst the symptoms were moderate in the emergency department the symptoms are unchanged. The patient has not experienced similar symptoms in the past. The patient has not recently seen a physician. Pt denies any symptoms. States he feels fine. Denies weakness, dark stools, bleeding, shortness of breath.. Historical: - Allergies: 11:51 No Known Allergies; ca1 - PMHx: 11:51 Anemia; Angiodysplasia of duodenum; CAD s/p DC; Cholithiasis; COPD; Diabetes - NIDDM; ca1 diagnosed with cancer at [place], did not seek treatment; etoh abuse; Gastric varices; GERD; Hyperlipidemia; Hypertension; liver cancer; metabolic encephalopathy; Myocardial infarction; Pneumonia; rhabdomyolysis; UTI; - Immunization history:: Adult Immunizations up to date. - Social history:: Smoking status: Patient reports the use of cigarette tobacco products, smokes one-half pack cigarettes per day. ROS: 12:58 Constitutional: Negative for fever, chills, and weight loss, Cardiovascular: Negative kb for chest pain, palpitations, and edema, Respiratory: Negative for shortness of breath, cough, wheezing, and pleuritic chest pain, Abdomen/GI: Negative for abdominal pain, nausea, vomiting, diarrhea, and constipation, Back: Negative for injury and pain, MS/Extremity: Negative for injury and deformity, Skin: Negative for injury, rash, and discoloration, Neuro: Negative for headache, weakness, numbness, tingling, and seizure. Exam: 12:58 Constitutional: This is a well developed, well nourished patient who is awake, alert, kb and in no acute distress. Head/Face: Normocephalic, atraumatic. Chest/axilla: Normal chest wall appearance and motion. Nontender with no deformity. No lesions are appreciated. Cardiovascular: Regular rate and rhythm with a normal S1 and S2. No gallops, murmurs, or rubs. Normal PMI, no JVD. No pulse deficits. Respiratory: Lungs have equal breath sounds bilaterally, clear to auscultation and percussion. No rales, rhonchi or wheezes noted. No increased work of breathing, no retractions or nasal flaring. Abdomen/GI: Soft, non-tender, with normal bowel sounds. No distension or tympany. No guarding or rebound. No evidence of tenderness throughout. Skin: Warm, dry with normal turgor. Normal color with no rashes, no lesions, and no evidence of cellulitis. MS/ Extremity: Pulses equal, no cyanosis. Neurovascular intact. Full, normal range of motion. Neuro: Awake and alert, GCS 15, oriented to person, place, time, and situation. Cranial nerves II-XII grossly intact. Motor strength 5/5 in all extremities. Sensory grossly intact. Cerebellar exam normal. Normal gait. Vital Signs: 11:45 BP 160 / 58; Pulse 71; Resp 17 S; Temp 98.3(O); Pulse Ox 100% on R/A; Weight 73.48 kg ca1 (R); Height 6 ft. 0 in. (182.88 cm) (R); Pain 0/10; 12:35 BP 158 / 56; Pulse 70; Resp 15 S; Pulse Ox 100% on R/A; ca1 13:38 BP 146 / 66; Pulse 77; Resp 15 S; Pulse Ox 100% on R/A; ca1 11:45 Body Mass Index 21.97 (73.48 kg, 182.88 cm) ca1 MDM: 11:41 Patient medically screened. kb 12:57 Data reviewed: vital signs, nurses notes. Data interpreted: Pulse oximetry: on room air kb is 100 %. Interpretation: normal. Counseling: I had a detailed discussion with the patient and/or guardian regarding: the historical points, exam findings, and any diagnostic results supporting the discharge/admit diagnosis, lab results, the need for outpatient follow up, a family practitioner, to return to the emergency department if symptoms worsen or persist or if there are any questions or concerns that arise at home. 02/02 11:42 Order name: CBC with Diff; Complete Time: 12:51 kb 02/02 11:42 Order name: Basic Metabolic Panel; Complete Time: 12:56 kb 02/02 11:42 Order name: IV Start; Complete Time: 12:32 kb 02/02 11:42 Order name: Type And Screen; Complete Time: 14:14 kb 02/02 14:08 Order name: Antibody Screen; Complete Time: 14:14 EDMS Administered Medications: No medications were administered Disposition: 15:36 Co-signature as Attending Physician, Len Lei MD I agree with the assessment and kdr plan of care. Disposition: 02/03/20 13:03 Discharged to Home. Impression: Anemia, unspecified - chronic. - Condition is Stable. - Discharge Instructions: Anemia, Nonspecific. - Medication Reconciliation Form, Thank You Letter, Antibiotic Education, Prescription Opioid Use form. - Follow up: Emergency Department; When: As needed; Reason: Worsening of condition. Follow up: Private Physician; When: 2 - 3 days; Reason: Recheck today's complaints, Continuance of care, Re-evaluation by your physician. Signatures: Dispatcher [employer] EDMS Rosalinda Jauregui, RETORT FURNACE HELPER-C RETORT FURNACE HELPER-CkLen Chavez MD MD kdr Yefri Taylor RN RN Gwen Agudelo RN RN ca1 Corrections: (The following items were deleted from the chart) 14:41 13:03 02/03/2020 13:03 Discharged to Home. Impression: Anemia, unspecified - chronic. bp Condition is Stable. Forms are Medication Reconciliation Form, Thank You Letter, Antibiotic Education, Prescription Opioid Use. Follow up: Emergency Department; When: As needed; Reason: Worsening of condition. Follow up: Private Physician; When: 2 - 3 days; Reason: Recheck today's complaints, Continuance of care, Re-evaluation by your physician. kb
[2020-02-03 14:50] VITALS: TEMP 98.3; O2SAT 100
[2020-02-03 14:53] VITALS: BP 146/66
== END 2020-02-03 14:41 | disposition home or self-care (01) ==
LOC: ER 11:24
DX: D64.9 Anemia, unspecified (principal)
CPT/HCPCS: 36415; 80048; 85025; 86850; 86900; 86901; 99284